=== PATIENT | female | born 1955 | race Caucasian/White ===

== ENCOUNTER 2016-07-02 21:38 | Observation (INO) | payer MEDICARE, MEDICAID ==
[~2016-07-02] VITALS: Ht 157.5 cm; Wt 88.2 kg
[~2016-07-02 21:38] MED LIST: ALPR.5T PO; HYDR-34 PO; LEVO75TA57 PO; MTH750T PO; ORPH100T PO; PREG75CA PO; RNT150T PO; TRM50T PO; VNL75T PO
--- OUTSIDE RECORDS SUMMARY | 2016-07-02 21:43 | XMS REPORT ---
Author Author JOE BAI Organization [employer] Address Unknown Phone Unavailable Care Team Providers Care Communication Lecturer Name Role Phone JOE BAI CP Unavailable Allergies No Known Allergies Problems Problem Type Condition Code Onset Dates Condition Status Problem Right wrist pain M25.531 Active Problem Reflex sympathetic dystrophy G90.50 Active Problem Right elbow pain M25.521 Active Problem Fibromyalgia M79.7 Active Problem Hypothyroidism, unspecified type E03.9 Active Medications No Known Medications Results No Known Results Summary Purpose eClinicalWorks Submission
[2016-07-02] MEDS ORDERED: ASPIRIN 81 MG CHEW (CHILDREN'S ASA) PO ONE (21:45)
[2016-07-02] MEDS ORDERED: RX-NITROGLYCERIN 0.4 MG TAB BTL 25'S SL PRN (21:45)
[2016-07-02 21:57] LABS: BASOPHILS % (AUTO) 0 % (0-10); EOSINOPHILS # (AUTO) 0.2 10^3/uL (0.0-0.3); EOSINOPHILS % (AUTO) 2 % (0-10); LYMPHOCYTES # (AUTO) 4.5 X 10^3 (1.0-4.0); LYMPHOCYTES % (AUTO) 44 % (12-44); MEAN CORPUSCULAR HEMOGLOBIN 31 PG (25-34); MEAN CORPUSCULAR HGB CONC 34 G/DL (32-36); MEAN CORPUSCULAR VOLUME 93 FL (80-99); MEAN PLATELET VOLUME 8.8 FL (7.4-10.4); MONOCYTES # (AUTO) 1.2 X 10^3 (0.0-1.0); MONOCYTES % (AUTO) 11 % (0-12); NEUTROPHILS # (AUTO) 4.3 X 10^3 (1.8-7.8); NEUTROPHILS % (AUTO) 42 % (42-75); PLATELET COUNT 350 10^3/uL (130-400); RED BLOOD COUNT 4.25 10^6/uL (4.35-5.85); RED CELL DISTRIBUTION WIDTH 12.7 % (10.0-14.5); WHITE BLOOD COUNT 10.2 10^3/uL (4.3-11.0)
[2016-07-02 22:08] LABS: PROTHROMBIN TIME PATIENT 12.9 SEC (12.2-14.7)
[2016-07-02] MEDS ORDERED: [UNRECOGNIZED DRUG - OTHER] PO (22:08)
[2016-07-02] MEDS ORDERED: TOPI200T8 PO (22:08)
[2016-07-02] MEDS ORDERED: FLUO20CA42 PO (22:08)
--- NOTE | 2016-07-02 22:20 | ED Chest Pain ---
General Chief Complaint: Chest Pain Stated Complaint: CHEST PAIN Nursing Triage Note: PT REPORTS L SIDED CP X 2-3 DAYS THAT RADIATES TO HER JAW AND L SHOULDER. PT REPORTS PAIN HAS RESOLVED BUT THAT SHE STILL HAS PRESSURE AND SOA IN HER CHEST THAT SHE RATES AT A 7/10. Nursing Sepsis Screen: No Definite Risk Source: patient History of Present Illness Time seen by provider: 21:40 Initial Comments PT ARRIVES VIA POV FROM HOME C/O CHEST PAIN OFF AND ON FOR A FEW DAYS STATES PAIN IS IN CENTER OF CHEST AND RADIATES TO LEFT NECK AND JAW, TO LEFT SHOULDER AND DOWN LEFT ARM AND INTO LEFT UPPER BACK STATES THE SHARP PAIN IN CHEST IS GONE, BUT STILL HAS ALOT OF PRESSURE IN CHEST- -RATES PAIN 7/10 C/O SLIGHT SHORTNESS OF BREATH C/O NAUSEA, NO VOMITING NO SWEATS NO SWELLING IN LEGS/ FEET OR PAIN IN CALVES, NO RECENT TRAVEL TOOK [facility] AT NOON AND 2 HOURS AGO. STATES SHE HAS HAD THE SAME IN THE PAST, BUT HAS NOT HAD ANY CARDIAC TESTS. STATES ALL FAMILY MEMBERS EXCEPT HER HAVE HEART DISEASE AND BOTH PARENTS AND YOUNGER BROTHER ALL OF HEART DISEASE PCP: DR. BAI AT [facility] Allergies and Home Medications Allergies Coded Allergies: Penicillins (Unverified Allergy, Intermediate, HIVES, 07/24/10) meperidine (Unverified Allergy, Intermediate, HIVES, 07/24/10) codeine (Unverified Allergy, Mild, PALPITATIONS, 07/24/10) methocarbamol (Unverified Adverse Reaction, Unknown, HOSTILE/AGGRESSION, ) Home Medications Fluoxetine HCl 20 Mg Capsule 40 MG PO DAILY (Reported) Hydrocodone Bit/Acetaminophen 1 Ea Tablet 1-2 TAB PO TID PRN PRN PAIN (Reported ) Levothyroxine Sodium 75 Mcg Tablet 1 EACH PO DAILY (Reported) Orphenadrine Citrate 100 Mg Tablet.sa 100 MG PO BID (Reported) Pantoprazole Sodium 40 Mg Tablet.dr 40 MG PO DAILY (Reported) Topiramate 200 Mg Tablet 400 MG PO DAILY (Reported) Review of Systems Constitutional: no symptoms reported EENTM: See HPI Respiratory: See HPI Shortness of Air Cardiovascular: See HPI Chest PainDenies Edema, Denies Irregular Heart Rate, Denies Lightheadedness, Denies Palpitations, Denies Syncope Gastrointestinal: See HPIDenies Abdominal Pain, NauseaDenies Vomiting Genitourinary: No Symptoms Reported Musculoskeletal: see HPI back pain (PAIN RADIATES TO LEFT UPPER BACK ) other ( PAIN RADIATES TO LEFT SHOULDER AND DOWN LEFT ARM) Skin: no symptoms reported Psychiatric/Neurological: No Symptoms Reported Endocrine: No Symptoms Reported Hematologic/Lymphatic: No Symptoms Reported Past Zbvkofl-Pbvlvh-Mscmac Hx Patient Social History Alcohol Use: Denies Use Recreational Drug Use: No Smoking Status: Former Smoker (< 1 PPD, QUIT OVER 20 YEARS AGO) Type Used: Cigarettes Recent Foreign Travel: No Contact w/Someone Who Travel: No Recent Infectious Disease Expo: No Recent Hopitalizations: No Physical Abuse Screen: No Sexual Abuse: No Immunizations Up To Date Date of Influenza Vaccine: Apr 01, 2016 Surgeries HX Surgeries: Yes (COLON RESECTION ? FOR BENIGN TUMOR? , RIGHT CARPAL TUNNEL SURGERY; LEFT ELBOW SURGERY FOR EPICONDYLITIS; X 2; BENIGN TUMOR REMOVED FROM FINGER) Surgeries: Abdominal, Appendectomy, Bowel Surgery, Section, Gallbladder, Orthopedic, Tonsillectomy Respiratory Hx Respiratory Disorders: No Cardiovascular Hx Cardiac Disorders: No Neurological Hx Neurological Disorders: No Genitourinary Hx Genitourinary Disorders: No Gastrointestinal Hx Gastrointestinal Disorders: Yes (COLON RESECTION FOR ? BENIGN TUMOR? ) Gastrointestinal Disorders: Gastroesophageal Reflux, Ulcer Musculoskeletal Hx Musculoskeletal Disorders: Yes (CHRONIC NECK PAIN; RSD) Musculoskeletal Disorders: Fibromyalgia, Chronic Back Pain Endocrine Hx Endocrine Disorders: Yes (HYPOGLYCEMIC) Endocrine Disorders: Hypothyroidsim Cancer Hx Cancer: No Psychosocial Hx Psychiatric Problems: Yes Behavioral Health Disorders: Depression Integumentary HX Skin/Integumentary Disorder: No Blood Transfusions Hx Blood Disorders: No Physical Exam Vital Signs Vital Sign - Last 12Hours 07/02/16 07/02/16 21:54 22:00 Temp 96.4 Pulse 78 Resp 18 B/P 143/80 Pulse Ox 96 O2 Delivery Room Air Capillary Refill : Less Than 3 Seconds General Appearance: No Apparent Distress WD/WN Anxious Obese HEENT: PERRL/EOMI Neck: Full Range of Motion Normal Inspection Non Tender SuppleNo Carotid Bruit , No JVD Respiratory: Chest Non Tender Normal Breath Sounds No Accessory Muscle Use No Respiratory Distress Cardiovascular: Regular Rate, Rhythm No Edema No JVD No Murmur Normal Peripheral Pulses Gastrointestinal: Normal Bowel Sounds No Organomegaly No Pulsatile Mass Non Tender Soft Extremity: Normal Capillary Refill Normal Inspection Normal Range of Motion Non Tender No Calf Tenderness No Pedal Edema Neurologic/Psychiatric: Alert Oriented x3 No Motor/Sensory Deficits 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 Norm as Tested Other (ANXIOUS) Skin: Normal Color Warm/Dry Progress/Results/Core Measures Results/Orders Lab Results Laboratory Tests Test 07/02/16 21:52 Range/Units Activated Partial Thromboplast Time 35 24-35 SEC Alanine Aminotransferase (ALT/SGPT) 13 0-55 U/L Albumin 4.2 3.2-4.5 G/DL Alkaline Phosphatase 92 40-136 U/L Amylase Level 67 25-125 U/L Anion Gap 12 5-14 MMOL/L Aspartate Amino Transf (AST/SGOT) 20 5-34 U/L B-Type Natriuretic Peptide < 10.0 <100.0 PG/ML BUN/Creatinine Ratio 17 Basophils # (Auto) 0.0 0.0-0.1 10^3/uL Basophils (%) (Auto) 0 0-10 % Blood Urea Nitrogen 14 7-18 MG/DL Calcium Level 9.3 8.5-10.1 MG/DL Carbon Dioxide Level 17 L 21-32 MMOL/L Chloride Level 107 98-107 MMOL/L Creatine Kinase MB 1.4 <6.6 NG/ML Creatinine 0.83 0.60-1.30 MG/DL Eosinophils # (Auto) 0.2 0.0-0.3 10^3/uL Eosinophils (%) (Auto) 2 0-10 % Estimat Glomerular Filtration Rate > 60 Glucose Level 105 70-105 MG/DL Hematocrit 39 35-52 % Hemoglobin 13.2 11.5-16.0 G/DL INR Comment 1.0 0.8-1.4 Lipase 45 8-78 U/L Lymphocytes # (Auto) 4.5 H 1.0-4.0 X 10^3 Lymphocytes (%) (Auto) 44 12-44 % Mean Corpuscular Hemoglobin 31 25-34 PG Mean Corpuscular Hemoglobin Concent 34 32-36 G/DL Mean Corpuscular Volume 93 80-99 FL Mean Platelet Volume 8.8 7.4-10.4 FL Monocytes # (Auto) 1.2 H 0.0-1.0 X 10^3 Monocytes (%) (Auto) 11 0-12 % Neutrophils # (Auto) 4.3 1.8-7.8 X 10^3 Neutrophils (%) (Auto) 42 42-75 % Platelet Count 350 130-400 10^3/uL Potassium Level 3.4 L 3.6-5.0 MMOL/L Prothrombin Time 12.9 12.2-14.7 SEC Red Blood Count 4.25 L 4.35-5.85 10^6/uL Red Cell Distribution Width 12.7 10.0-14.5 % Sodium Level 136 135-145 MMOL/L Total Bilirubin 0.2 0.1-1.0 MG/DL Total Creatine Kinase 89 29-168 U/L Total Protein 7.4 6.4-8.2 G/DL Troponin I < 0.30 <0.30 NG/ML White Blood Count 10.2 4.3-11.0 10^3/uL My Orders Orders-ALEIDA CENTENO DO Amylase (07/02/16 21:41) Cbc With Automated Diff (07/02/16 21:41) Comprehensive Metabolic Panel (07/02/16 21:41) Creatine Kinase (07/02/16 21:41) Creatine Kinase Mb (07/02/16 21:41) Lipase (07/02/16 21:41) Partial Thromboplastin Time (07/02/16 21:41) Protime With Inr (07/02/16 21:41) Troponin I (07/02/16 21:41) Chest 1 View, Ap/Pa Only (07/02/16 21:41) O2 (07/02/16 21:41) Ekg Tracing (07/02/16 21:41) Aspirin Chewable Tablet (Baby Aspirin Ch (07/02/16 21:45) Rx-Nitroglycerin Sl Tabs (Rx-Nitrostat S (07/02/16 21:45) BNP (07/02/16 21:41) Monitor-Rhythm Ecg Trace Only (07/02/16 21:41) Medications Given in ED Current Medications Medications Dose Ordered Sig/Emily Route Start Time Stop Time Status Last Admin Dose Admin Aspirin 324 mg ONCE ONCE PO 07/02/16 21:45 07/02/16 21:46 DC 07/02/16 21:54 324 MG Nitroglycerin 0.4 mg UD PRN SL 07/02/16 21:45 07/02/16 21:54 0.4 MG Vital Signs/I&O Vital Sign - Last 12Hours 1/1307/02/16 21:54 22:00 Temp 96.4 Pulse 78 Resp 18 B/P 143/80 Pulse Ox 96 O2 Delivery Room Air Blood Pressure Mean: 101 Progress Note : Progress Note PAIN AND OTHER SYMPTOMS COMPLETELY RESOLVED WITH NTG SL X 2 PRESSURE/PAIN BEGAN TO COME BACK JUST PRIOR TO ADMIT, RATES 4/10. 1/2" NITROPASTE APPLIED. ECG Initial ECG Impression Time: 21:47 Initial ECG Rate: 82 Initial ECG Rhythm: Normal Sinus Initial ECG Comparisson: No Previous ECG Available Diagnostic Imaging Comments CXR--NO ACUTE PROCESS, PENDING RADIOLOGIST REVIEW Reviewed: Reviewed by Me Departure Communication Progress Notes 1150--SPOKE WITH DR. Kailash SAUNDERS, ACCEPTS PT FOR ADMIT. Impression Impression: Primary Impression: Chest pain Disposition: ADMITTED INPATIENT Condition: Improved Decision to Admit Reason: Admit from ER (General) Decision to Admit/Date: Jul 02, 2016 Time/Decision to Admit Time: 23:10 Departure-Patient Inst. Referrals: JOE BAI MD (PCP/Family) Primary Care Physician ALEIDA CENTENO DO Jul 02, 2016 22:20 ALEIDA CENTENO DO Jul 02, 2016 22:20
[2016-07-02 22:48] LABS: ALANINE AMINOTRANSFERASE 13 U/L (0-55); ALBUMIN 4.2 G/DL (3.2-4.5); AMYLASE 67 U/L (25-125); ANION GAP 12 MMOL/L (5-14); ASPARTATE AMINO TRANSFERASE 20 U/L (5-34); BILIRUBIN,TOTAL 0.2 MG/DL (0.1-1.0); BLOOD UREA NITROGEN 14 MG/DL (7-18); BUN/CREATININE RATIO 17; CALCIUM 9.3 MG/DL (8.5-10.1); CARBON DIOXIDE 17 MMOL/L (21-32); CHLORIDE 107 MMOL/L (98-107); CREATINE KINASE 89 U/L (29-168); CREATININE SERUM 0.83 MG/DL (0.60-1.30); GFR ESTIMATED > 60; GLUCOSE 105 MG/DL (70-105); LIPASE 45 U/L (8-78); POTASSIUM 3.4 MMOL/L (3.6-5.0); SODIUM 136 MMOL/L (135-145); TOTAL PROTEIN 7.4 G/DL (6.4-8.2)
[2016-07-02 22:55] LABS: TROPONIN I < 0.30 NG/ML (<0.30)
[2016-07-02] MEDS ORDERED: NITROGLYCERIN 2% OINT 1 GM UNIT DOSE PACKET TOP ONE (23:15)
[2016-07-03 00:20] VITALS: BP 117/81
[2016-07-03] MEDS ORDERED: NITROGLYCERIN SUBLINGUAL 0.4 MG TAB (NITROSTAT) SL PRN (01:00)
[2016-07-03] MEDS ORDERED: PANT40TA3 PO (01:14)
[2016-07-03] MEDS ORDERED: morphine INJ 4 MG/ML 1 ML (VIAL/SYRINGE) IV PRN (01:15)
[2016-07-03 03:45] VITALS: BP 117/73
[2016-07-03 04:00] VITALS: BP 117/73
[2016-07-03 04:21] LABS: BASOPHILS % (AUTO) 0 % (0-10); EOSINOPHILS # (AUTO) 0.2 10^3/uL (0.0-0.3); EOSINOPHILS % (AUTO) 2 % (0-10); LYMPHOCYTES # (AUTO) 3.2 X 10^3 (1.0-4.0); LYMPHOCYTES % (AUTO) 39 % (12-44); MEAN CORPUSCULAR HEMOGLOBIN 31 PG (25-34); MEAN CORPUSCULAR HGB CONC 34 G/DL (32-36); MEAN CORPUSCULAR VOLUME 93 FL (80-99); MEAN PLATELET VOLUME 9.2 FL (7.4-10.4); MONOCYTES # (AUTO) 0.9 X 10^3 (0.0-1.0); MONOCYTES % (AUTO) 12 % (0-12); NEUTROPHILS # (AUTO) 3.8 X 10^3 (1.8-7.8); NEUTROPHILS % (AUTO) 47 % (42-75); PLATELET COUNT 317 10^3/uL (130-400); RED BLOOD COUNT 3.91 10^6/uL (4.35-5.85); RED CELL DISTRIBUTION WIDTH 12.7 % (10.0-14.5); WHITE BLOOD COUNT 8.1 10^3/uL (4.3-11.0)
[2016-07-03 04:49] LABS: ALANINE AMINOTRANSFERASE 10 U/L (0-55); ALBUMIN 3.8 G/DL (3.2-4.5); ANION GAP 11 MMOL/L (5-14); ASPARTATE AMINO TRANSFERASE 19 U/L (5-34); BILIRUBIN,TOTAL 0.3 MG/DL (0.1-1.0); BLOOD UREA NITROGEN 15 MG/DL (7-18); BUN/CREATININE RATIO 21; CARBON DIOXIDE 17 MMOL/L (21-32); CHLORIDE 109 MMOL/L (98-107); CHOLESTEROL 194 MG/DL (< 200); CREATINE KINASE 74 U/L (29-168); CREATININE SERUM 0.71 MG/DL (0.60-1.30); DIRECT LDL 126 MG/DL (1-129); GFR ESTIMATED > 60; GLUCOSE 103 MG/DL (70-105); MAGNESIUM 2.1 MG/DL (1.8-2.4); PHOSPHORUS 4.1 MG/DL (2.3-4.7); SODIUM 137 MMOL/L (135-145); TOTAL PROTEIN 6.8 G/DL (6.4-8.2)
[2016-07-03 04:55] LABS: TRIGLYCERIDES 90 MG/DL (<150); VLDL CHOLESTEROL 18 MG/DL (5-40)
[2016-07-03 05:06] LABS: BILIRUBIN,URINE NEGATIVE (NEGATIVE); KETONES,URINE NEGATIVE (NEGATIVE); LEUKOCYTE ESTERASE ,URINE 2+ (NEGATIVE); NITRITE,URINE POSITIVE (NEGATIVE); PH,URINE 6 (5-9); PROTEIN,URINE NEGATIVE (NEGATIVE); UROBILINOGEN,URINE NORMAL (NORMAL)
[2016-07-03 05:34] LABS: MYOGLOBIN SERUM 24.8 NG/ML (10.0-92.0)
[2016-07-03] MEDS: NITROGLYCERIN 2% OINT 1 GM UNIT DOSE PACKET TOP SCH ×2 (05:45→11:00)
--- NOTE | 2016-07-03 07:08 | Diagnostic Imaging Report ---
INDICATION: Left-sided chest pain. COMPARISON: Radiographs of the thoracic spine dated November 03, 2009. TECHNIQUE: Single radiograph of the chest dated July 02, 2016. FINDINGS: The cardiac silhouette is within normal limits. No significant pulmonary vascular congestion. The lungs are clear. No pleural effusion. No pneumothorax. Blodgett right curvature of the thoracolumbar spine. No acute osseous abnormality. IMPRESSION: No acute cardiopulmonary abnormality with additional findings as above. Dictated by: Dictated on workstation # [id number]
[2016-07-03] MEDS ORDERED: ASPIRIN E.C. 325 MG (ECOTRIN) TABLET PO SCH (09:00)
--- NOTE | 2016-07-03 10:19 | Diagnostic Imaging Report ---
EXAMINATION: Portable chest compared to prior study from 07/02/2016. INDICATION: Shortness of breath. FINDINGS: Lungs appear clear without focal infiltrate or evidence of an effusion. There is no pneumothorax. Heart size and mediastinal contours appear appropriate. Pulmonary vascularity appears within normal limits. No acute osseous abnormality is evident. IMPRESSION: No radiographic evidence of an acute cardio pulmonary process. Dictated by: Dictated on workstation # [id number]
--- NOTE | 2016-07-03 12:23 | Short Stay Summary ---
HPI History of Present Illness: Patient presented to hospital with complaints of chest pain. Was over past 3 days off and on. Radiated to neck and left arm. NO prior cardiac history or evaluation. Pt states she has been under significant stress lately. Didn't know if that was related. DId not have shortness of breath or palpitations. No nausea or vomiting. Source: patient Exam Limitations: no limitations Date seen by provider: Jul 03, 2016 Attending Physician Em Mckeon MD PCP Joe Bai MD Consult Date of Admission Jul 02, 2016 at 11:10 pm Home Medications Home Medications Reviewed patient Home Medication Reconciliation Form Allergies Coded Allergies: Penicillins (Unverified Allergy, Intermediate, HIVES, 07/24/10) meperidine (Unverified Allergy, Intermediate, HIVES, 07/24/10) codeine (Unverified Allergy, Mild, PALPITATIONS, 07/24/10) methocarbamol (Unverified Adverse Reaction, Unknown, HOSTILE/AGGRESSION, ) QQB-Yslxbz-Dqsmft Hx Patient Social History Alcohol Use: Denies Use Recreational Drug Use: No Smoking Status: Former Smoker Type Used: Cigarettes Recent Foreign Travel: No Contact w/other who traveled: No Recent Hopitalizations: No Recent Infectious Disease Expo: No Physical Abuse Screen: No Sexual Abuse: No Immunizations Up To Date Date of Pneumonia Vaccine: Apr 02, 2013 Date of Influenza Vaccine: Apr 01, 2016 Family Medical History Family History: Congenital heart disease Diabetes mellitus G8 BROTHER, Onset:Unknown Irregular heart beat 19 FATHER, , Onset:Unknown G8 SISTER, Onset:Unknown Myocardial infarction G8 BROTHER, Onset:Unknown Review of Systems ([facility]) Constitutional: no symptoms reported All Other Systems Reviewed Negative Unless Noted: Yes (Negative excepted noted.) Physical Exam-([facility]) Physical Exam Vital Signs VS - Last 72 Hours, by Label 07/02/16 07/02/16 07/03/16 07/03/16 21:54 22:00 00:12 00:20 Temp 96.4 97.6 Pulse 78 74 66 Resp 18 20 16 B/P 143/80 117/81 Pulse Ox 96 96 96 O2 Delivery Room Air Room Air 07/03/16 07/03/16 07/03/16 07/03/16 00:30 01:01 04:00 04:00 Temp 97.0 Pulse 63 71 Resp 18 B/P 117/73 Pulse Ox 96 98 97 O2 Delivery Room Air Room Air Room Air 07/03/16 07/03/16 07/03/16 07:00 08:00 08:00 Temp 97.5 Pulse 71 Pulse Ox 96 O2 Delivery Room Air Capillary Refill : Less Than 3 Seconds General Appearance: WD/WN no apparent distress HEENT: PERRL/EOMI normal ENT inspection TMs normal Neck: non-tender full range of motion supple normal inspection Respiratory: chest non-tender lungs clear normal breath sounds no respiratory distress no accessory muscle use Cardiovascular: regular rate, rhythm no edema no gallop no JVD no murmur Gastrointestinal: normal bowel sounds non tender soft no organomegaly no pulsatile mass Back: normal inspection Extremities: normal range of motion non-tender normal inspection no pedal edema no calf tenderness normal capillary refill Neurologic/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 Her cardiac enzymes remained normal as did her EKG. Maddie's chest pain resolved spontaneously early during the admission. She does describe a particularly stressful week with her adult children and recognizes some of her sx may be related to anxiety. She agrees to get a stress test this week and will return to ER should her sx return. We will arrange for close follow up after the stress test. Clinical Quality Measures AMI/AHF: ASA po Prior to arrival: Yes (162 MG ) DVT/VTE Risk/Contraindication: Risk Factor Score Per Nursin RFS Level Per Nursing on Admit: 3=High Copy Copies To 1: JOE BAI MD, JULIE A MD Jul 03, 2016 12:23
--- NOTE | 2016-07-03 12:26 | Discharge Instructions ---
Discharge Inst-[facility] Discharge Medications New, Converted or Re-Newed RX: Other Continued Medications: Fluoxetine HCl (Prozac) 20 Mg Capsule 40 MG PO DAILY CAP Hydrocodone Bit/Acetaminophen (Vicodin Es 7.5 Mg/325 Mg) 1 Ea Tablet 1-2 TAB PO TID PRN PAIN Levothyroxine Sodium (Synthroid) 75 Mcg Tablet 1 EACH PO DAILY Orphenadrine Citrate (Norflex) 100 Mg Tablet.sa 100 MG PO BID Pantoprazole Sodium (Pantoprazole Sodium) 40 Mg Tablet.dr 40 MG PO DAILY TAB Topiramate (Topiramate) 200 Mg Tablet 400 MG PO DAILY TAB Patient Instructions Goal/Follow Up Appt: [facility] WILL CALL YOU ON TUESDAY WITH TWO APPOINTMENTS: ONE TO FOLLOW UP WITH DR SAUNDERS (DUE TO DR BAI'S ABSENCE) AND ONE FOR YOUR STRESS TEST. Patient Instructions: PLEASE TAKE ALL MEDICATIONS PRESCRIBED. ATTEND ALL FOLLOW UP APPOINTMENTS. Return to The Hospital For: INCREASED CHEST PAIN OR SHORTNESS OF BREATH, PALPITATIONS Activity & Diet Discharge Diet: Low Fat/Low Cholesterol Activity as Tolerated: Yes Copy Copies To 1: LEONID SAUNDERS MD, JULIE A MD Jul 03, 2016 12:26 pm
== END 2016-07-03 12:24 | disposition home or self-care (01) ==
LOC: EDUNIT# 21:38 → ER 21:40 → ICU 23:10 → UNDOADMOB 23:10 → ICU 07-03 00:20 → UNDODISOB 07-03 12:55
PROVIDERS: ADMIT Pediatrics; ATTEND Pediatrics
DX: R07.9 Chest pain, unspecified (principal); K21.9 Gastro-esophageal reflux disease without esophagitis; M79.7 Fibromyalgia; E03.9 Hypothyroidism, unspecified; Z87.891 Personal history of nicotine dependence
CPT/HCPCS: 36415; 71010; 80053; 80061; 81000; 82150; 82550; 82553; 83690; 83735; 83874; 83880; 84100; 84484; 85025; 85610; 85730; 87088; 87186; 93005; 93041; G0378

== ENCOUNTER → 2016-07-07 | Outpatient (CLI) | payer MEDICARE, MEDICAID ==
[~2016-07-07] MED LIST changes: +FLUO20CA42 PO; +PANT40TA3 PO; +TOPI200T8 PO; +[UNRECOGNIZED DRUG - OTHER] PO
== END ==
LOC: CARD 10:54
PROVIDERS: ATTEND Pediatrics
DX: R07.9 Chest pain, unspecified (principal)
CPT/HCPCS: 93017

== ENCOUNTER 2017-01-29 15:45 | Emergency (ER) | payer MEDICARE, MEDICAID ==
[~2017-01-29] VITALS: Ht 157.5 cm; Wt 88.2 kg
--- OUTSIDE RECORDS SUMMARY | 2017-01-29 15:54 | XMS REPORT ---
Author Author JOE BAI Organization [employer] Address Unknown Phone Unavailable Care Team Providers Care Government Affairs Researcher Name Role Phone JOE BAI CP Unavailable Allergies No Known Allergies Problems Problem Type Condition Code Onset Dates Condition Status Problem Fibromyalgia M79.7 Active Problem Hypothyroidism, unspecified type E03.9 Active Problem Reflex sympathetic dystrophy G90.50 Active Medications Medication Code System Code Instructions Start Date End Date Status Dosage Hydrocodone-Acetaminophen [facility] [address]-88 7.5-325 MG Orally 3 times a day 1 tablet as needed Results No Known Results Summary Purpose eClinicalWorks Submission
--- OUTSIDE RECORDS SUMMARY | 2017-01-29 15:54 | XMS REPORT ---
Author Author JOE BAI Organization [employer] Address Unknown Phone Unavailable Care Team Providers Care Music Publicist Name Role Phone JOE BAI CP Unavailable [...]
--- OUTSIDE RECORDS SUMMARY | 2017-01-29 15:54 | XMS REPORT ---
Author Author JOE BAI [facility] Address [address] [place] [address] Care Team Providers Care Service Crew Supervisor Name Role Phone JOE BAI Unavailable PROBLEMS Type Condition ICD9-CM Code IUG32-KO Code Onset Dates Condition Status SNOMED Code Problem Right elbow pain M25.521 Active 46686338 Problem Right wrist pain M25.531 Active 48262510 Problem Hypothyroidism, unspecified type E03.9 Active 00568616 Assessment Right elbow pain M25.521 May, Active 70504338 Problem Reflex sympathetic dystrophy G90.50 Active 68225582 Problem Fibromyalgia M79.7 Active [id number] ALLERGIES Unknown Allergies SOCIAL HISTORY No smoking Hx information available PLAN OF CARE VITAL SIGNS MEDICATIONS Medication Instructions Dosage Frequency Start Date End Date Duration Status Hydrocodone-Acetaminophen 7.5-325 MG Orally 3 times a day 1 tablet as needed 8h May, Active RESULTS No Results PROCEDURES No Known procedures IMMUNIZATIONS No Known Immunizations
--- OUTSIDE RECORDS SUMMARY | 2017-01-29 15:54 | XMS REPORT ---
Author Author JOE BAI Organization [employer] Address Unknown Phone Unavailable Care Team Providers Care Cable Testers Helper Name Role Phone JOE BAI CP Unavailable [...]
--- OUTSIDE RECORDS SUMMARY | 2017-01-29 15:54 | XMS REPORT ---
Author MIKEY Fontenot [facility] [employer] Address Unknown Phone Unavailable Care Team Providers Care Ribbon Hand Name Role Phone MIKEY MATHEWS Unavailable Allergies, Adverse Reactions, Alerts Substance Reaction Event Type Robaxin Info Not Available Drug Allergy Penicillin V Potassium Info Not Available Drug Allergy Demerol Info Not Available Drug Allergy Codeine Sulfate Info Not Available Drug Allergy Problems Problem Type Condition Code Onset Dates Condition Status Problem Right wrist pain M25.531 Active Problem Reflex sympathetic dystrophy G90.50 Active Problem Right elbow pain M25.521 Active Assessment Right elbow pain M25.521 Active Assessment Right wrist pain M25.531 Active Problem Fibromyalgia M79.7 Active Problem Hypothyroidism, unspecified type E03.9 Active Medications Medication Code System Code Instructions Start Date End Date Status Dosage Norflex [facility] [address]-44 100 mg by oral route every 12 hrs 1 tablet Hydrocodone-Acetaminophen [facility] [address]-27 7.5-325 MG Orally 3 times a day 1 tablet as needed Synthroid [facility] [address]-71 75 MCG Orally Once a day [address] [facility] [address]-11 40 MG Orally Once a day 1 capsule in the morning PredniSONE [facility] [address]-97 10 mg Orally twice a day Feb 13, 2016Feb [address] [facility] [address]-08 200 mg Orally twice a day 1 tablet Pantoprazole Sodium [facility] [address]-25 40 MG Orally Once a day 1 tablet Procedures Procedure Coding System Code Date X-RAY EXAM OF ELBOW CPT-4 65233 Feb 13, 2016 [facility] VISIT ESTABLISHED PATIENT CPT-4 G0467 Feb 13, 2016 X-RAY EXAM OF WRIST CPT-4 95579 Feb 13, 2016 Office Visit, Est Pt., Level 3 CPT-4 18903 Feb 13, 2016 Vital Signs Date/Time: Feb 13, 2016 Cardiac Monitoring Heart Rate 84 bpm Weight 194.2 lbs Height 62 in BMI 35.52 Index Blood Pressure Diastolic 81 mmHg Blood Pressure Systolic 125 mmHg Results No Known Results Summary Purpose eClinicalWorks Submission
--- OUTSIDE RECORDS SUMMARY | 2017-01-29 15:54 | XMS REPORT ---
Author Author JOE BAI Organization [employer] Address Unknown Phone Unavailable Care Team Providers Care Hydrostatic Tester Name Role Phone JOE BAI CP Unavailable Allergies No Known Allergies Problems Problem Type Condition Code Onset Dates Condition Status Problem Fibromyalgia M79.7 Active Problem Hypothyroidism, unspecified type E03.9 Active Problem Reflex sympathetic dystrophy G90.50 Active Medications Medication Code System Code Instructions Start Date End Date Status Dosage Norflex [facility] [address]-15 100 mg by oral route every 12 hrs 1 tablet Results No Known Results Summary Purpose eClinicalWorks Submission
--- OUTSIDE RECORDS SUMMARY | 2017-01-29 15:54 | XMS REPORT ---
Author Author JOE BAI [facility] e[employer] Address Unknown Phone Unavailable Care Team Providers Care Casting Room Operator Name Role Phone JOE BAI CP Unavailable Allergies, Adverse Reactions, Alerts Substance Reaction Event Type Robaxin Info Not Available Drug Allergy Penicillin V Potassium Info Not Available Drug Allergy Demerol Info Not Available Drug Allergy Codeine Sulfate Info Not Available Drug Allergy Problems Problem Type Condition Code Onset Dates Condition Status Problem Fibromyalgia M79.7 Active Problem Hypothyroidism, unspecified type E03.9 Active Problem Reflex sympathetic dystrophy G90.50 Active Assessment Fibromyalgia M79.7 Active Assessment Hypothyroidism, unspecified type E03.9 Active Medications Medication Code System Code Instructions Start Date End Date Status Dosage Synthroid [facility] [address]-91 75 MCG Orally Once a day 1 tablet Topiramate [facility] [address]-97 200 mg Orally Once a day 1 tablet Prozac [facility] [address]-83 40 MG Orally Once a day 1 capsule in the morning Pantoprazole Sodium [facility] [address]-83 40 MG Orally Once a day 1 tablet Hydrocodone-Acetaminophen [facility] [address]-77 7.5-325 MG Orally 3 times a day 1 tablet as needed Norflex [facility] [address]-79 100 mg by oral route every 12 hrs 1 tablet Procedures Procedure Coding System Code Date Office Visit, Est Pt., Level 3 CPT-4 13408 January 06, 2016 [facility] VISIT ESTABLISHED PATIENT CPT-4 G0467 January 06, 2016 Vital Signs Date/Time: January 06, 2016 Cardiac Monitoring Heart Rate 80 bpm Weight 195.5 lbs Height 62 in Blood Pressure Diastolic 78 mmHg Blood Pressure Systolic 118 mmHg Results No Known Results Summary Purpose eClinicalWorks Submission
--- OUTSIDE RECORDS SUMMARY | 2017-01-29 15:54 | XMS REPORT ---
Author Author JOE BAI [facility] Address [address] [place] [address] Care Team Providers Care Manager Oracle Database Name Role Phone JOE BAI Unavailable PROBLEMS Type Condition ICD9-CM Code [id number] Code Onset Dates Condition Status SNOMED Code Assessment Encounter for immunization Z23 Apr, Active 776662197 Problem Right elbow pain M25.521 Active 95004099 Problem Right wrist pain M25.531 Active 48285987 Problem Hypothyroidism, unspecified type E03.9 Active 77874382 Assessment Reflex sympathetic dystrophy G90.50 Apr, Active 84528004 Problem Reflex sympathetic dystrophy G90.50 Active 55258461 Problem Fibromyalgia M79.7 Active 651899463 ALLERGIES Substance Reaction Event Type Date Status Robaxin Unknown Drug Allergy Apr, Active Penicillin V Potassium Unknown Drug Allergy Apr, Active Demerol Unknown Drug Allergy Apr, Active Codeine Sulfate Unknown Drug Allergy Apr, Active SOCIAL HISTORY No smoking Hx information available PLAN OF CARE VITAL SIGNS Height 62 in 2016-05-10 Weight 200.8 lbs 2016-05-10 Heart Rate 80 bpm 2016-05-10 Respiratory Rate 16 2016-05-10 BMI 36.72 kg/m2 2016-05-10 Blood pressure systolic 120 mmHg 2016-05-10 Blood pressure diastolic 90 mmHg 2016-05-10 MEDICATIONS Medication Instructions Dosage Frequency Start Date End Date Duration Status Hydrocodone-Acetaminophen 7.5-325 MG Orally 3 times a day 1 tablet as needed 8h Active Topiramate 200 mg Orally twice a day 1 tablet 12h Active Norflex 100 MG by oral route every 12 hrs 1 tablet 12h Active Synthroid 75 MCG Orally Once a day 1 tablet 24h Active Pantoprazole Sodium 40 MG Orally Once a day 1 tablet 24h Active Prozac 40 MG Orally Once a day 1 capsule in the morning 24h Active RESULTS No Results PROCEDURES Procedure Date Ordered Related Diagnosis Body Site FLUARIX QUAD P-FREE 3 AND UP .50 2015May 10, 2016 SINGLE IMMUNIZATION ADMIN May 10, 2016 Office Visit, Est Pt., Level 3 May 10, 2016 [facility] VISIT ESTABLISHED PATIENT May 10, 2016 IMMUNIZATIONS Vaccine Route Administration Date Status FLUARIX QUAD P-FREE 3 AND UP .50 2015 IM Intramuscular May 10, 2016 Administered
--- OUTSIDE RECORDS SUMMARY | 2017-01-29 15:54 | XMS REPORT ---
Author Author JOE BAI Organization [employer] Address Unknown Phone Unavailable Care Team Providers Care Exhibition Carver Name Role Phone JOE BAI CP Unavailable Allergies No Known Allergies Problems Problem Type Condition Code Onset Dates Condition Status Problem Fibromyalgia M79.7 Active Problem Hypothyroidism, unspecified type E03.9 Active Problem Reflex sympathetic dystrophy G90.50 Active Medications Medication Code System Code Instructions Start Date End Date Status Dosage Hydrocodone-Acetaminophen [facility] [address]-24 7.5-325 MG Orally 3 times a day 1 tablet as needed Results No Known Results Summary Purpose [employer] Submission
--- OUTSIDE RECORDS SUMMARY | 2017-01-29 15:55 | XMS REPORT ---
Author Author JOE BAI [facility] Address [address] [place] [address] Care Team Providers Care Production Control Scheduler Name Role Phone JOE BAI Unavailable PROBLEMS Type Condition ICD9-CM Code [id number] Code Onset Dates Condition Status SNOMED Code Problem Right elbow pain M25.521 Active 50835792 Problem Right wrist pain M25.531 Active 73971331 Problem Hypothyroidism, unspecified type E03.9 Active 68601208 Problem Reflex sympathetic dystrophy G90.50 Active 05277842 Problem Fibromyalgia M79.7 Active 634384128 ALLERGIES Unknown Allergies SOCIAL HISTORY No smoking Hx information available PLAN OF CARE VITAL SIGNS MEDICATIONS Medication Instructions Dosage Frequency Start Date End Date Duration Status Hydrocodone-Acetaminophen 7.5-325 MG Orally 3 times a day 1 tablet as needed 8h Active RESULTS No Results PROCEDURES No Known procedures IMMUNIZATIONS No Known Immunizations
--- OUTSIDE RECORDS SUMMARY | 2017-01-29 15:55 | XMS REPORT ---
Author Author JOE BAI [facility] Address [address] [place] [address] Care Team Providers Care Market Development Trainer Name Role Phone JOE BAI Unavailable PROBLEMS Type Condition ICD9-CM Code [id number] Code Onset Dates Condition Status SNOMED Code Problem Right elbow pain M25.521 Active 68332318 Problem Right wrist pain M25.531 Active 37635174 Problem Hypothyroidism, unspecified type E03.9 Active 01875666 Problem Reflex sympathetic dystrophy G90.50 Active 42646288 Problem Fibromyalgia M79.7 Active 472774403 ALLERGIES Unknown Allergies SOCIAL HISTORY No smoking Hx information available PLAN OF CARE VITAL SIGNS MEDICATIONS Medication Instructions Dosage Frequency Start Date End Date Duration Status Hydrocodone-Acetaminophen 7.5-325 MG Orally 3 times a day 1 tablet as needed 8h Active RESULTS No Results PROCEDURES No Known procedures IMMUNIZATIONS No Known Immunizations
--- OUTSIDE RECORDS SUMMARY | 2017-01-29 15:55 | XMS REPORT ---
Author Author JOE BAI Organization [employer] Address Unknown Phone Unavailable Care Team Providers Care Transmission Systems Operator Name Role Phone JOE BAI CP Unavailable Allergies No Known Allergies Problems Problem Type Condition Code Onset Dates Condition Status Problem Right wrist pain M25.531 Active Problem Reflex sympathetic dystrophy G90.50 Active Problem Right elbow pain M25.521 Active Problem Fibromyalgia M79.7 Active Problem Hypothyroidism, unspecified type E03.9 Active Medications Medication Code System Code Instructions Start Date End Date Status Dosage Hydrocodone-Acetaminophen [facility] [address]-67 7.5-325 MG Orally 3 times a day 1 tablet as needed Results No Known Results Summary Purpose [employer]ClinicalWorks Submission
--- OUTSIDE RECORDS SUMMARY | 2017-01-29 15:55 | XMS REPORT ---
Author SHERRY Roberts Organization [employer] Address Unknown Phone Unavailable Care Team Providers Care Scrap Drop Engineer Name Role Phone SHERRY JENNINGS CP Unavailable Allergies, Adverse Reactions, Alerts Substance Reaction Event Type Robaxin Info Not Available Drug Allergy Penicillin V Potassium Info Not Available Drug Allergy Demerol Info Not Available Drug Allergy Codeine Sulfate Info Not Available Drug Allergy Problems Problem Type Condition Code Onset Dates Condition Status Problem Fibromyalgia M79.7 Active Problem Hypothyroidism, unspecified type E03.9 Active Problem Reflex sympathetic dystrophy G90.50 Active Assessment Seborrheic keratoses L82.1 Active Medications Medication Code System Code Instructions Start Date End Date Status Dosage Synthroid [facility] [address]-33 75 MCG Orally Once a day 1 tablet Hydrocodone-Acetaminophen [facility] [address]-43 7.5-325 MG Orally 3 times a day 1 tablet as needed Prozac [facility] [address]-10 40 MG Orally Once a day 1 capsule in the morning Norflex [facility] [address]-71 100 mg by oral route every 12 hrs 1 tablet Pantoprazole Sodium [facility] [address]-34 40 MG Orally Once a day 1 tablet Topiramate [facility] [address]-63 200 mg Orally twice a day 1 tablet Procedures Procedure Coding System Code Date [facility] VISIT ESTABLISHED PATIENT CPT-4 G0467 January 13, 2016 Office Visit, Est Pt., Level 2 CPT-4 54697 January 13, 2016 CRYOTHERAPY OF SKIN CPT-4 19522 January 13, 2016 Vital Signs Date/Time: January 13, 2016 Cardiac Monitoring Heart Rate 82 bpm Weight 193.9 lbs Height 62 in BMI 35.46 Index Blood Pressure Diastolic 77 mmHg Blood Pressure Systolic 131 mmHg Results No Known Results Summary Purpose [employer]ClinicalWorks Submission
--- OUTSIDE RECORDS SUMMARY | 2017-01-29 15:55 | XMS REPORT ---
Author Author JOE BAI [facility] e[employer] Address Unknown Phone Unavailable Care Team Providers Care Lump Receiver Name Role Phone JOE BAI CP Unavailable Allergies No Known Allergies Problems Problem Type Condition Code Onset Dates Condition Status Problem Fibromyalgia M79.7 Active Problem Hypothyroidism, unspecified type E03.9 Active Problem Reflex sympathetic dystrophy G90.50 Active Medications Medication Code System Code Instructions Start Date End Date Status Dosage Topiramate [facility] [address]-20 200 mg Orally twice a day 1 tablet Results No Known Results Summary Purpose eClinicalWorks Submission
[2017-01-29] MEDS ORDERED: NS IV 1000 ML 1,000 ML IV STA (16:24)
[2017-01-29] MEDS ORDERED: KETOROLAC 30 MG/ML VIAL IVP STA (16:24)
[2017-01-29] MEDS ORDERED: PROMETHAZINE INJ 25 MG/ML (PHENERGAN) AMP IVP STA (16:24)
[2017-01-29] MEDS ORDERED: DEXAMETHASONE PF 10 MG/ML (DECADRON) VIAL IV STA (16:25)
[2017-01-29] MEDS ORDERED: diphenhydrAMINE 50 MG/ML INJ (BENADRYL) IV ONE ×2 (16:30→18:00)
--- NOTE | 2017-01-29 16:36 | ED Headache ---
General Chief Complaint: Head/Cervical Problems Stated Complaint: SHARP SHOOTING PAINS IN HEAD,LIGHT-HEADED,PRESSURE Nursing Triage Note: pt ambulated to room. pt complains of a severe headache, lightheaded, and blurred vision since yesterday. pt states "it feels like someone is pushing on my head". pt complains of a sharp pain on the right side of her head. pt saw dr. epstein yesterday for this situation and was prescribed medication. Nursing Sepsis Screen: No Definite Risk Source: patient Exam Limitations: no limitations History of Present Illness Time seen by provider: 16:19 Initial Comments Here with complaint of headache that she reports this more severe today and has sharp pains to the top of her head. This is been long-standing over the last several months but worse tonight. Denies fever or chills. States her medicines aren't working for her for this. Denies other illness related symptoms. Timing/Duration: increasing, other (4 months) Severity/Quality: moderate, pressure, sharp Location: occipital Prior Headaches/Recent Trauma: frequent headaches, chronic headaches Associated Symptoms: No confusion, No fatigue, No facial pain, No fever/chills , No loss of consciousness, No nausea/vomiting, No nasal congestion, No nasal drainage, No sinus infection, No stiff neck, No weakness Allergies and Home Medications Allergies Coded Allergies: Penicillins (Unverified Allergy, Intermediate, HIVES, 07/24/10) meperidine (Unverified Allergy, Intermediate, HIVES, 07/24/10) codeine (Unverified Allergy, Mild, PALPITATIONS, 07/24/10) methocarbamol (Unverified Adverse Reaction, Unknown, HOSTILE/AGGRESSION, ) Home Medications Fluoxetine HCl 20 Mg Capsule, 40 MG PO DAILY, (Reported) Hydrocodone Bit/Acetaminophen 1 Ea Tablet, 1-2 TAB PO TID PRN for PAIN, ( Reported) Levothyroxine Sodium 75 Mcg Tablet, 1 EACH PO DAILY, (Reported) Orphenadrine Citrate 100 Mg Tablet.sa, 100 MG PO BID, (Reported) Pantoprazole Sodium 40 Mg Tablet.dr, 40 MG PO DAILY, (Reported) Topiramate 200 Mg Tablet, 400 MG PO DAILY, (Reported) Constitutional: see HPI, No chills, No fever Eyes: No Symptoms Reported Ears, Nose, Mouth, Throat: no symptoms reported Respiratory: no symptoms reported Cardiovascular: no symptoms reported Gastrointestinal: no symptoms reported, No nausea, No vomiting Genitourinary: no symptoms reported, No dysuria, No pain Musculoskeletal: no symptoms reported Skin: no symptoms reported Psychiatric/Neurological: See HPI, Headache All Other Systems Reviewed Negative Unless Noted: Yes Past Zgckwcj-Rgbwvv-Thmzls Hx Patient Social History Alcohol Use: Denies Use Recreational Drug Use: No Smoking Status: Former Smoker Type Used: Cigarettes 2nd Hand Smoke Exposure: No Recent Foreign Travel: No Contact w/Someone Who Travel: No Recent Infectious Disease Expo: No Recent Hopitalizations: No Immunizations Up To Date PED Vaccines UTD: No Date of Pneumonia Vaccine: Apr 02, 2013 Date of Influenza Vaccine: Apr 01, 2016 Seasonal Allergies Seasonal Allergies: No Surgeries HX Surgeries: Yes Surgeries: Abdominal, Appendectomy, Bowel Surgery, Section, Gallbladder, Orthopedic, Tonsillectomy Respiratory Hx Respiratory Disorders: No Cardiovascular Hx Cardiac Disorders: No Neurological Hx Neurological Disorders: No Reproductive System Sexually Transmitted Disease: No HIV/AIDS: No Female Reproductive Disorders: Denies Genitourinary Hx Genitourinary Disorders: No Gastrointestinal Hx Gastrointestinal Disorders: Yes (COLON RESECTION FOR ? BENIGN TUMOR? ) Gastrointestinal Disorders: Gastroesophageal Reflux, Ulcer Musculoskeletal Hx Musculoskeletal Disorders: Yes (CHRONIC NECK PAIN; RSD) Musculoskeletal Disorders: Fibromyalgia, Chronic Back Pain Endocrine Hx Endocrine Disorders: Yes (HYPOGLYCEMIC) Endocrine Disorders: Hypothyroidsim HEENT Loss of Vision: Right Hearing Impairment: Deaf Cancer Hx Cancer: No Psychosocial Hx Psychiatric Problems: Yes Behavioral Health Disorders: Depression Integumentary HX Skin/Integumentary Disorder: No Blood Transfusions Hx Blood Disorders: No Adverse Reaction to a Blood Tr: No Reviewed Nursing Assessment Reviewed/Agree w Nursing PMH: Yes Family Medical History Family Medial History: Congenital heart disease Diabetes mellitus G8 BROTHER, Onset:Unknown Irregular heart beat 19 FATHER, , Onset:Unknown G8 SISTER, Onset:Unknown Myocardial infarction G8 BROTHER, Onset:Unknown Physical Exam Vital Signs Vital Sign - Last 12Hours 01/29/17 15:54 Temp 98.2 Pulse 71 Resp 20 B/P (MAP) 161/75 Pulse Ox 98 O2 Delivery Room Air Capillary Refill : Less Than 3 Seconds General Appearance: WD/WN, no apparent distress HEENT: PERRL/EOMI, TMs normal, pharynx normal Neck: full range of motion, supple Cardiovascular: regular rate, rhythm, no murmur Respiratory: lungs clear, normal breath sounds Gastrointestinal: non tender, soft Back: normal inspection, no CVA tenderness, no vertebral tenderness Extremities: non-tender, normal inspection Psychiatric: alert, oriented x 3 Crainal Nerves: normal hearing, normal speech Coordination/Gait: normal gait Motor/Sensory: no motor deficit, no sensory deficit Skin: normal color, warm/dry Progress/Results/Core Measures Results/Orders Lab Results Laboratory Tests Test 01/29/17 16:39 01/29/17 16:40 Range/Units White Blood Count 9.5 4.3-11.0 10^3/uL Red Blood Count 3.91 L 4.35-5.85 10^6/uL Hemoglobin 12.0 11.5-16.0 G/DL Hematocrit 36 35-52 % Mean Corpuscular Volume 92 80-99 FL Mean Corpuscular Hemoglobin 31 25-34 PG Mean Corpuscular Hemoglobin Concent 33 32-36 G/DL Red Cell Distribution Width 13.2 10.0-14.5 % Platelet Count 297 130-400 10^3/uL Mean Platelet Volume 9.3 7.4-10.4 FL Neutrophils (%) (Auto) 52 42-75 % Lymphocytes (%) (Auto) 34 12-44 % Monocytes (%) (Auto) 11 0-12 % Eosinophils (%) (Auto) 4 0-10 % Basophils (%) (Auto) 0 0-10 % Neutrophils # (Auto) 4.9 1.8-7.8 X 10^3 Lymphocytes # (Auto) 3.2 1.0-4.0 X 10^3 Monocytes # (Auto) 1.0 0.0-1.0 X 10^3 Eosinophils # (Auto) 0.4 H 0.0-0.3 10^3/uL Basophils # (Auto) 0.0 0.0-0.1 10^3/uL Erythrocyte Sedimentation Rate 31 H 0-30 MM/HR Sodium Level 134 L 135-145 MMOL/L Potassium Level 3.7 3.6-5.0 MMOL/L Chloride Level 106 98-107 MMOL/L Carbon Dioxide Level 18 L 21-32 MMOL/L Anion Gap 10 5-14 MMOL/L Blood Urea Nitrogen 13 7-18 MG/DL Creatinine 0.75 0.60-1.30 MG/DL Estimat Glomerular Filtration Rate > 60 BUN/Creatinine Ratio 17 Glucose Level 93 70-105 MG/DL Calcium Level 9.1 8.5-10.1 MG/DL Total Bilirubin 0.3 0.1-1.0 MG/DL Aspartate Amino Transf (AST/SGOT) 18 5-34 U/L Alanine Aminotransferase (ALT/SGPT) 9 0-55 U/L Alkaline Phosphatase 95 40-136 U/L C-Reactive Protein High Sensitivity 1.03 H 0.00-0.50 MG/DL Total Protein 6.8 6.4-8.2 GM/DL Albumin 3.8 3.2-4.5 GM/DL Urine Color YELLOW Urine Clarity CLEAR Urine pH 7 5-9 Urine Specific Cameron 1.015 L 1.016-1.022 Urine Protein NEGATIVE NEGATIVE Urine Glucose (UA) NEGATIVE NEGATIVE Urine Ketones NEGATIVE NEGATIVE Urine Nitrite POSITIVE H NEGATIVE Urine Bilirubin NEGATIVE NEGATIVE Urine Urobilinogen NORMAL NORMAL MG/DL Urine Leukocyte Esterase 3+ H NEGATIVE Urine RBC (Auto) NEGATIVE NEGATIVE Urine RBC NONE /HPF Urine WBC 50-100 H /HPF Urine Squamous Epithelial Cells 2-5 /HPF Urine Crystals NONE /LPF Urine Bacteria LARGE H /HPF Urine Casts NONE /LPF Urine Mucus NEGATIVE /LPF Urine Culture Indicated YES My Orders Orders - ARUNA MARTINEZ MD Cbc With Automated Diff (01/29/17 16:24) Comprehensive Metabolic Panel (01/29/17 16:24) Hs C Reactive Protein (01/29/17 16:24) Ua Culture If Indicated (01/29/17 16:24) Erythrocyte Sedimentation Rate (01/29/17 16:24) Ketorolac Injection (Toradol Injection) (01/29/17 16:24) Promethazine Injection (Phenergan Injec (01/29/17 16:24) Ns Iv 1000 Ml (Sodium Chloride 0.9%) (01/29/17 16:24) Saline Lock/Iv-Start (01/29/17 16:24) Ct Head Wo (01/29/17 16:24) Diphenhydramine Injection (Benadryl Inje (01/29/17 16:30) Dexamethasone Pf Injection (Decadron Pf (01/29/17 16:25) Urine Culture (01/29/17 16:40) Levofloxacin Tablet (Levaquin Tablet) (01/29/17 17:48) Diphenhydramine Injection (Benadryl Inje (01/29/17 18:00) Medications Given in ED Current Medications Medications Dose Ordered Sig/Emily Route Start Time Stop Time Status Last Admin Dose Admin Diphenhydramine HCl 25 mg ONCE ONCE IV 01/29/17 16:30 01/29/17 16:31 DC 01/29/17 16:47 25 MG Vital Signs/I&O Vital Sign - Last 12Hours 01/29/17 15:54 Temp 98.2 Pulse 71 Resp 20 B/P (MAP) 161/75 Pulse Ox 98 O2 Delivery Room Air Blood Pressure Mean: 103 Progress Note : Progress Note Seen and evaluated. IV, labs and UA ordered. CT head ordered. Normal saline 1 L bolus, Phenergan 25 mg IV, Toradol 30 mg IV and Benadryl 25 mg IV ordered. Decadron 10 mg IV ordered. Monitor patient. 1745: Patient is much improved with respect to headache but does have restless legs. UTI noted. Levaquin 500 mg by mouth and Benadryl 25 mg IV ordered. Discharged home with return precautions. Patient and family verbalize understanding instructions and agreement with plan. Departure Impression Impression: Primary Impression: Migraine Qualified Codes: G43.909 - Migraine, unspecified, not intractable, without status migrainosus Additional Impression: Urinary tract infection Qualified Codes: N30.00 - Acute cystitis without hematuria Disposition: HOME, SELF-CARE Condition: Improved Departure-Patient Inst. Decision time for Depature: 17:57 Referrals: JOE BAI MD (PCP/Family) Primary Care Physician Patient Instructions: Migraine Headache (DC), Urinary Tract Infection, Adult ( DC) Add. Discharge Instructions: All discharge instructions reviewed with patient and/or family. Voiced understanding. Take medications as directed. Follow-up with your DrMario in a few days for recheck. Return for worse pain, fever, vomiting, weakness, recent problems or other concerns as needed. Scripts Ciprofloxacin HCl (Ciprofloxacin HCl) 500 Mg Tablet 500 MG PO BID, #10 TAB Prov: ARUNA MARTINEZ MD 01/29/17 ARUNA MARTINEZ MD Jan 29, 2017 16:36
[2017-01-29 16:45] LABS: BASOPHILS % (AUTO) 0 % (0-10); EOSINOPHILS # (AUTO) 0.4 10^3/uL (0.0-0.3); EOSINOPHILS % (AUTO) 4 % (0-10); LYMPHOCYTES # (AUTO) 3.2 X 10^3 (1.0-4.0); LYMPHOCYTES % (AUTO) 34 % (12-44); MEAN CORPUSCULAR HEMOGLOBIN 31 PG (25-34); MEAN CORPUSCULAR HGB CONC 33 G/DL (32-36); MEAN CORPUSCULAR VOLUME 92 FL (80-99); MEAN PLATELET VOLUME 9.3 FL (7.4-10.4); MONOCYTES % (AUTO) 11 % (0-12); NEUTROPHILS # (AUTO) 4.9 X 10^3 (1.8-7.8); NEUTROPHILS % (AUTO) 52 % (42-75); PLATELET COUNT 297 10^3/uL (130-400); RED BLOOD COUNT 3.91 10^6/uL (4.35-5.85); RED CELL DISTRIBUTION WIDTH 13.2 % (10.0-14.5); WHITE BLOOD COUNT 9.5 10^3/uL (4.3-11.0)
[2017-01-29 16:47] LABS: BILIRUBIN,URINE NEGATIVE (NEGATIVE); KETONES,URINE NEGATIVE (NEGATIVE); LEUKOCYTE ESTERASE ,URINE 3+ (NEGATIVE); NITRITE,URINE POSITIVE (NEGATIVE); PH,URINE 7 (5-9); PROTEIN,URINE NEGATIVE (NEGATIVE); UROBILINOGEN,URINE NORMAL (NORMAL)
[2017-01-29 16:55] LABS: WBC,URINE 50-100 /HPF
[2017-01-29 17:04] LABS: ERYTHROCYTE SEDIMENTATION RATE 31 MM/HR (0-30)
[2017-01-29 17:07] LABS: ALANINE AMINOTRANSFERASE 9 U/L (0-55); ALBUMIN 3.8 GM/DL (3.2-4.5); ANION GAP 10 MMOL/L (5-14); ASPARTATE AMINO TRANSFERASE 18 U/L (5-34); BILIRUBIN,TOTAL 0.3 MG/DL (0.1-1.0); BLOOD UREA NITROGEN 13 MG/DL (7-18); BUN/CREATININE RATIO 17; CALCIUM 9.1 MG/DL (8.5-10.1); CARBON DIOXIDE 18 MMOL/L (21-32); CHLORIDE 106 MMOL/L (98-107); CREATININE SERUM 0.75 MG/DL (0.60-1.30); GFR ESTIMATED > 60; GLUCOSE 93 MG/DL (70-105); POTASSIUM 3.7 MMOL/L (3.6-5.0); SODIUM 134 MMOL/L (135-145); TOTAL PROTEIN 6.8 GM/DL (6.4-8.2); hs C REACTIVE PROTEIN 1.03 MG/DL (0.00-0.50)
--- NOTE | 2017-01-29 17:07 | Diagnostic Imaging Report ---
INDICATION: Headache. Head pressure. TECHNIQUE: Routine non contrast-enhanced axial images were obtained from the skull base to the vertex. COMPARISON: 07/24/2010. FINDINGS: The ventricles and cortical sulci are diffusely prominent, compatible with age-related volume loss. There are confluent areas of abnormal, low attenuation in the periventricular white matter. This is consistent with chronic small vessel ischemic changes. There is no midline shift or mass-effect. No acute intra-axial hemorrhage is seen. There are no abnormal areas of increased or decreased density to suggest acute hemorrhage or edema. No extra-axial masses or collections are present. The bony calvarium is intact. The visualized paranasal sinuses are unremarkable. The mastoid air cells are clear. IMPRESSION: 1. No acute intracranial abnormality. No CT evidence of mass, acute infarct or intracranial hemorrhage. 2. Chronic small vessel ischemic changes in the deep white matter. Dictated by: Dictated on workstation # [id number]
[2017-01-29] MEDS ORDERED: LEVOFLOXACIN 500 MG TAB (LEVAQUIN) PO STA (17:48)
[2017-01-29] MEDS ORDERED: CIPR500T4 PO (17:59)
[2017-01-29 18:07] VITALS: BP 163/77
== END 2017-01-29 18:07 | disposition home or self-care (01) ==
LOC: EDUNIT# 15:45 → ER 15:46
DX: G43.909 Migraine, unspecified, not intractable, without status migrainosus (principal); N39.0 Urinary tract infection, site not specified; K21.9 Gastro-esophageal reflux disease without esophagitis; E03.9 Hypothyroidism, unspecified; M54.9 Dorsalgia, unspecified; G89.29 Other chronic pain; F32.9 Major depressive disorder, single episode, unspecified; Z82.49 Family history of ischemic heart disease and other diseases of the circulatory system; Z87.891 Personal history of nicotine dependence; Z90.49 Acquired absence of other specified parts of digestive tract
CPT/HCPCS: 36415; 70450; 80053; 81000; 85025; 85652; 86141; 87088; 87186

== ENCOUNTER → 2017-03-18 | Outpatient (CLI) | payer MEDICARE, MEDICAID ==
[~2017-03-18] MED LIST changes: +CIPR500T4 PO
--- NOTE | 2017-03-18 14:03 | Diagnostic Imaging Report ---
INDICATION: Right arm pain. FINDINGS: Real-time imaging of the upper lateral aspect of the right arm in the area of concern. No subcutaneous masses are seen. The underlying muscles and tissue planes appear normal. No hypervascularity. IMPRESSION: Normal targeted ultrasound to the right upper extremity. Dictated by: Dictated on workstation # [id number]
== END ==
LOC: RAD 10:23
PROVIDERS: ATTEND Internal Medicine
DX: M79.601 Pain in right arm (principal)
CPT/HCPCS: 76881

== ENCOUNTER → 2017-04-04 | Outpatient (CLI) | payer MEDICARE, MEDICAID ==
[~2017-04-04] MED LIST changes: +GADOBUTROL 10 MMOL/10 ML (GADAVIST) VIAL IV ONE
[2017-04-04 18:37] LABS: BLOOD UREA NITROGEN 12 MG/DL (7-18); BUN/CREATININE RATIO 15; CREATININE SERUM 0.82 MG/DL (0.60-1.30); GFR ESTIMATED > 60
--- NOTE | 2017-04-05 11:17 | Diagnostic Imaging Report ---
PROCEDURE: MRI right upper extremity with and without contrast. TECHNIQUE: Multiplanar, multisequence pre and post contrast-enhanced MRI of the right upper extremity was accomplished. INDICATION: Right arm pain. 9 mL of Gadavist is administered intravenously. FINDINGS: There is no soft tissue mass or fluid collection seen. The muscles demonstrate normal signal. The bulk of the muscles is probably normal for the patient's gender and age. The bone marrow signal in the humerus is normal with no focal bone lesion or bone marrow edema. There is no enhancing mass identified. The periphery of the [id number] on this exam demonstrates artifacts from inhomogeneity of the magnetic field affecting particularly the fat-suppressed sequences with no definite underlying lesion. IMPRESSION: No abnormality identified. Dictated by: Dictated on workstation # [id number]
== END ==
LOC: RAD 17:51
PROVIDERS: ATTEND Surgery
DX: M79.621 Pain in right upper arm (principal); R22.31 Localized swelling, mass and lump, right upper limb
CPT/HCPCS: 36415; 73220; 82565; 84520

== ENCOUNTER → 2017-06-06 | Outpatient (CLI) | payer MEDICARE, MEDICAID ==
[~2017-06-06] MED LIST changes: -GADOBUTROL 10 MMOL/10 ML (GADAVIST) VIAL IV ONE
--- NOTE | 2017-06-06 11:15 | Diagnostic Imaging Report ---
EXAMINATION: Modified barium swallow. Indication: Dysphagia Different consistencies of fluid and food was given mixed with barium and swallowing was visualized under fluoroscopy. FLUOROSCOPY TIME: 38 seconds FINDINGS: No aspiration seen.. IMPRESSION: No aspiration seen. Please refer to speech therapist's report for additional details . Dictated by: Dictated on workstation # [id number]
== END ==
LOC: RAD 10:01
PROVIDERS: ATTEND Physical Medicine & Rehabilitation
DX: R13.10 Dysphagia, unspecified (principal)
CPT/HCPCS: 74230

== ENCOUNTER 2017-06-29 13:00 | Outpatient (RCR) | payer MEDICARE, MEDICAID | END 2017-06-29 13:47 | disposition home or self-care (01) | PROVIDERS: ATTEND Physical Medicine & Rehabilitation | DX: R13.10 Dysphagia, unspecified (principal); M25.511 Pain in right shoulder; R20.8 Other disturbances of skin sensation; M79.2 Neuralgia and neuritis, unspecified ==

== ENCOUNTER 2017-09-07 18:44 | Emergency (ER) | payer MEDICARE, MEDICAID ==
[~2017-09-07] VITALS: Ht 157.5 cm; Wt 96.6 kg
--- NOTE | 2017-09-07 19:13 | ED Headache ---
General Chief Complaint: Head/Cervical Problems Stated Complaint: PAIN IN HEAD,NECK, AND LOWER BACK Source: patient Exam Limitations: no limitations History of Present Illness Date Seen by Provider: Sep 07, 2017 Time Seen by Provider: 19:11 Initial Comments To ER per private vehicle accompanied by her with reports of pain in the right side of her head, her neck and her low back. Pain was severe earlier today and she took a Fioricet and 2 Excedrin migraines without relief. She has fibromyalgia and thought that this might just be a fibromyalgia flare. She denies nausea or vomiting. She has a history of headaches. This has been present for 2-3 days Timing/Duration: other (2-3 days) Severity/Quality: moderate Location: parietal (right) Modifying Factors: worse with exposure to light Associated Symptoms: No nausea/vomiting Allergies and Home Medications Allergies Coded Allergies: Penicillins (Unverified Allergy, Intermediate, HIVES, 07/24/10) meperidine (Unverified Allergy, Intermediate, HIVES, 07/24/10) codeine (Unverified Allergy, Mild, PALPITATIONS, 07/24/10) baclofen (Unverified Adverse Reaction, Unknown, dizzy, nausea, 09/07/17) divalproex sodium (Unverified Adverse Reaction, Unknown, 09/07/17) metaxalone (Unverified Adverse Reaction, Unknown, "bad for me", 09/07/17) methocarbamol (Unverified Adverse Reaction, Unknown, HOSTILE/AGGRESSION, ) tizanidine (Unverified Adverse Reaction, Unknown, drowsy, 09/07/17) Home Medications Butalbital/Aspirin/Caffeine 1 Each Capsule, 1 EACH PO PRN PRN for MIGRAINE, ( Reported) Hydrocodone Bit/Acetaminophen 1 Ea Tablet, 1-2 TAB PO TID PRN for PAIN, ( Reported) Levothyroxine Sodium 75 Mcg Tablet, 1 EACH PO DAILY, (Reported) Orphenadrine Citrate 100 Mg Tablet.sa, 100 MG PO BID, (Reported) Pantoprazole Sodium 40 Mg Tablet.dr, 40 MG PO DAILY, (Reported) Sucralfate 1 Gm Tablet, 1 GM PO TID, (Reported) Topiramate 200 Mg Tablet, 400 MG PO DAILY, (Reported) Vortioxetine Hydrobromide 5 Mg Tablet, 5 MG PO DAILY, (Reported) Patient Home Medication List Home Medication List Reviewed: Yes Constitutional: see HPI Eyes: No Symptoms Reported Ears, Nose, Mouth, Throat: no symptoms reported Respiratory: no symptoms reported Cardiovascular: no symptoms reported Genitourinary: no symptoms reported Musculoskeletal: no symptoms reported Skin: no symptoms reported Psychiatric/Neurological: No Symptoms Reported Past Iwynivh-Ghnjwk-Yiamuw Hx Patient Social History Type Used: Cigarettes 2nd Hand Smoke Exposure: No Recent Hopitalizations: No Immunizations Up To Date PED Vaccines UTD: No Date of Pneumonia Vaccine: Apr 02, 2013 Date of Influenza Vaccine: Apr 01, 2016 Seasonal Allergies Seasonal Allergies: No Surgeries History of Surgeries: Yes Surgeries: Abdominal, Appendectomy, Bowel Surgery, Section, Gallbladder, Orthopedic, Tonsillectomy Respiratory History of Respiratory Disorde: No Currently Using CPAP: No Currently Using BIPAP: No Cardiovascular History of Cardiac Disorders: No Neurological History of Neurological Disord: No Reproductive System Sexually Transmitted Disease: No HIV/AIDS: No Female Reproductive Disorders: Denies Genitourinary History of Genitourinary Disor: No Gastrointestinal History of Gastrointestinal Di: Yes (COLON RESECTION FOR ? BENIGN TUMOR? 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 ear.) Loss of Vision: Right Hearing Impairment: Deaf Cancer History of Cancer: No Did You Recieve Any Treatments: No Psychosocial History of Psychiatric Problem: Yes Behavioral Health Disorders: Depression Integumentary History of Skin or Integumenta: No Blood Transfusions History of Blood Disorders: No Adverse Reaction to a Blood Tr: No Family Medical History Family Medial History: Congenital heart disease Diabetes mellitus G8 BROTHER, Onset:Unknown Irregular heart beat 19 FATHER, , Onset:Unknown G8 SISTER, Onset:Unknown Myocardial infarction G8 BROTHER, Onset:Unknown Physical Exam Vital Signs Vital Signs - First Documented 09/07/17 19:08 Temp 98.2 Pulse 74 Resp 16 B/P (MAP) 150/74 (99) Pulse Ox 97 O2 Delivery Room Air Capillary Refill : Less Than 3 Seconds General Appearance: WD/WN, no apparent distress HEENT: PERRL/EOMI, normal ENT inspection Neck: non-tender, full range of motion Respiratory: normal breath sounds, no respiratory distress, no accessory muscle use Gastrointestinal: normal bowel sounds, non tender Extremities: normal range of motion, non-tender Crainal Nerves: normal hearing, normal speech, PERRL Skin: normal color, warm/dry Comments Keeps her sunglasses on Progress/Results/Core Measures Results/Orders Lab Results Laboratory Tests Test 09/07/17 19:30 09/07/17 19:50 Range/Units White Blood Count 9.6 4.3-11.0 10^3/uL Red Blood Count 4.04 L 4.35-5.85 10^6/uL Hemoglobin 12.7 11.5-16.0 G/DL Hematocrit 38 35-52 % Mean Corpuscular Volume 95 80-99 FL Mean Corpuscular Hemoglobin 31 25-34 PG Mean Corpuscular Hemoglobin Concent 33 32-36 G/DL Red Cell Distribution Width 12.8 10.0-14.5 % Platelet Count 299 130-400 10^3/uL Mean Platelet Volume 9.5 7.4-10.4 FL Neutrophils (%) (Auto) 46 42-75 % Lymphocytes (%) (Auto) 40 12-44 % Monocytes (%) (Auto) 11 0-12 % Eosinophils (%) (Auto) 3 0-10 % Basophils (%) (Auto) 0 0-10 % Neutrophils # (Auto) 4.4 1.8-7.8 X 10^3 Lymphocytes # (Auto) 3.8 1.0-4.0 X 10^3 Monocytes # (Auto) 1.0 0.0-1.0 X 10^3 Eosinophils # (Auto) 0.3 0.0-0.3 10^3/uL Basophils # (Auto) 0.0 0.0-0.1 10^3/uL Sodium Level 133 L 135-145 MMOL/L Potassium Level 3.7 3.6-5.0 MMOL/L Chloride Level 104 98-107 MMOL/L Carbon Dioxide Level 22 21-32 MMOL/L Anion Gap 7 5-14 MMOL/L Blood Urea Nitrogen 13 7-18 MG/DL Creatinine 0.78 0.60-1.30 MG/DL Estimat Glomerular Filtration Rate > 60 BUN/Creatinine Ratio 17 Glucose Level 99 70-105 MG/DL Calcium Level 9.2 8.5-10.1 MG/DL Total Bilirubin 0.2 0.1-1.0 MG/DL Aspartate Amino Transf (AST/SGOT) 22 5-34 U/L Alanine Aminotransferase (ALT/SGPT) 10 0-55 U/L Alkaline Phosphatase 97 40-136 U/L Total Protein 6.9 6.4-8.2 GM/DL Albumin 3.9 3.2-4.5 GM/DL Urine Color YELLOW Urine Clarity CLEAR Urine pH 6.5 5-9 Urine Specific [place] 1.010 L 1.016-1.022 Urine Protein NEGATIVE NEGATIVE Urine Glucose (UA) NEGATIVE NEGATIVE Urine Ketones NEGATIVE NEGATIVE Urine Nitrite NEGATIVE NEGATIVE Urine Bilirubin NEGATIVE NEGATIVE Urine Urobilinogen NORMAL NORMAL MG/DL Urine Leukocyte Esterase 3+ H NEGATIVE Urine RBC (Auto) NEGATIVE NEGATIVE Urine RBC NONE /HPF Urine WBC 10-25 H /HPF Urine Squamous Epithelial Cells 0-2 /HPF Urine Crystals NONE /LPF Urine Bacteria TRACE /HPF Urine Casts NONE /LPF Urine Mucus NEGATIVE /LPF Urine Culture Indicated YES My Orders Orders - GREY MCKEON APRN Cbc With Automated Diff (09/07/17 19:10) Comprehensive Metabolic Panel (09/07/17 19:10) Ua Culture If Indicated (09/07/17 19:10) Saline Lock/Iv-Start (09/07/17 19:10) Lactated Ringers (Lr 1000 Ml Iv Solution (09/07/17 19:15) Ketorolac Injection (Toradol Injection) (09/07/17 19:15) Prochlorperazine Injection (Compazine In (09/07/17 19:15) Urine Culture (09/07/17 19:50) Medications Given in ED Current Medications Medications Dose Ordered Sig/Emily Route Start Time Stop Time Status Last Admin Dose Admin Ketorolac Tromethamine 30 mg ONCE ONCE IVP 09/07/17 19:15 09/07/17 19:16 DC 09/07/17 19:31 30 MG Prochlorperazine Edisylate 5 mg ONCE ONCE IV 09/07/17 19:15 09/07/17 19:16 DC 09/07/17 19:31 5 MG Vital Signs/I&O Vital Sign - Last 12Hours 09/07/17 19:08 Temp 98.2 Pulse 74 Resp 16 B/P (MAP) 150/74 (99) Pulse Ox 97 O2 Delivery Room Air Departure Impression Impression: Primary Impression: Headache Additional Impression: Urinary tract infection Disposition: HOME, SELF-CARE Condition: Stable Departure-Patient Inst. Decision time for Depature: 20:32 Referrals: JOE BAI MD (PCP/Family) Primary Care Physician Patient Instructions: Headache, Adult (DC), Urinary Tract Infection, Adult (DC) Add. Discharge Instructions: 1. Follow up with your doctor this week 2. Antibotics as directed 3. Return to ER for any concerns All discharge instructions reviewed with patient and/or family. Voiced understanding. Scripts Sulfamethoxazole/Trimethoprim (Bactrim Ds Tablet) 1 Each Tablet 1 EACH PO BID, #10 TAB Prov: GREY MCKEON APRN 09/07/17 GREY MCKEON APRN Sep 07, 2017 19:13
[2017-09-07] MEDS ORDERED: LACTATED RINGERS 1,000 ML IV SCH (19:15)
[2017-09-07] MEDS ORDERED: PROCHLORPERAZINE 10 MG/2ML INJ (COMPAZINE) IV ONE (19:15)
[2017-09-07] MEDS ORDERED: KETOROLAC 30 MG/ML VIAL IVP ONE (19:15)
[2017-09-07] MEDS ORDERED: BUTA1CAP17 PO (19:17)
[2017-09-07] MEDS ORDERED: SUCR1TAB PO (19:17)
[2017-09-07] MEDS ORDERED: VORT5TAB PO (19:17)
[2017-09-07] MEDS ORDERED: ASPI-789 PO (19:17)
[2017-09-07 19:41] LABS: BASOPHILS % (AUTO) 0 % (0-10); EOSINOPHILS # (AUTO) 0.3 10^3/uL (0.0-0.3); EOSINOPHILS % (AUTO) 3 % (0-10); HEMATOCRIT 38 % (35-52); HEMOGLOBIN 12.7 G/DL (11.5-16.0); LYMPHOCYTES # (AUTO) 3.8 X 10^3 (1.0-4.0); LYMPHOCYTES % (AUTO) 40 % (12-44); MEAN CORPUSCULAR HEMOGLOBIN 31 PG (25-34); MEAN CORPUSCULAR HGB CONC 33 G/DL (32-36); MEAN CORPUSCULAR VOLUME 95 FL (80-99); MEAN PLATELET VOLUME 9.5 FL (7.4-10.4); MONOCYTES % (AUTO) 11 % (0-12); NEUTROPHILS # (AUTO) 4.4 X 10^3 (1.8-7.8); NEUTROPHILS % (AUTO) 46 % (42-75); PLATELET COUNT 299 10^3/uL (130-400); RED BLOOD COUNT 4.04 10^6/uL (4.35-5.85); RED CELL DISTRIBUTION WIDTH 12.8 % (10.0-14.5); WHITE BLOOD COUNT 9.6 10^3/uL (4.3-11.0)
[2017-09-07 19:56] LABS: BILIRUBIN,URINE NEGATIVE (NEGATIVE); CLARITY,URINE CLEAR; COLOR,URINE YELLOW; GLUCOSE, URINE (UA) NEGATIVE (NEGATIVE); KETONES,URINE NEGATIVE (NEGATIVE); LEUKOCYTE ESTERASE ,URINE 3+ (NEGATIVE); NITRITE,URINE NEGATIVE (NEGATIVE); PH,URINE 6.5 (5-9); PROTEIN,URINE NEGATIVE (NEGATIVE); UROBILINOGEN,URINE NORMAL (NORMAL)
[2017-09-07 20:00] LABS: ALANINE AMINOTRANSFERASE 10 U/L (0-55); ALBUMIN 3.9 GM/DL (3.2-4.5); ALKALINE PHOSPHATASE 97 U/L (40-136); BILIRUBIN,TOTAL 0.2 MG/DL (0.1-1.0); BUN/CREATININE RATIO 17; CALCIUM 9.2 MG/DL (8.5-10.1); CARBON DIOXIDE 22 MMOL/L (21-32); CHLORIDE 104 MMOL/L (98-107); CREATININE SERUM 0.78 MG/DL (0.60-1.30); GFR ESTIMATED > 60; GLUCOSE 99 MG/DL (70-105); POTASSIUM 3.7 MMOL/L (3.6-5.0); SODIUM 133 MMOL/L (135-145); TOTAL PROTEIN 6.9 GM/DL (6.4-8.2)
[2017-09-07 20:17] LABS: BACTERIA,URINE TRACE /HPF; SQUAMOUS EPITHELIAL CELL,UR 0-2 /HPF
[2017-09-07] MEDS ORDERED: SULF1TAB35 PO (20:33)
[2017-09-07] MEDS ORDERED: diphenhydrAMINE 50 MG/ML INJ (BENADRYL) IVP ONE (20:45)
[2017-09-07] MEDS ORDERED: TRIM/SULFAMETH 160/800 (SEPTRA DS) TAB PO ONE (20:45)
[2017-09-07 20:57] VITALS: BP 147/74
== END 2017-09-07 20:57 | disposition home or self-care (01) ==
LOC: EDUNIT# 18:44 → ER 18:45
DX: R51 Headache (principal); N39.0 Urinary tract infection, site not specified; F32.9 Major depressive disorder, single episode, unspecified; E03.9 Hypothyroidism, unspecified; K21.9 Gastro-esophageal reflux disease without esophagitis; Z87.19 Personal history of other diseases of the digestive system; Z90.49 Acquired absence of other specified parts of digestive tract; Z90.89 Acquired absence of other organs; Z87.59 Personal history of other complications of pregnancy, childbirth and the puerperium; Z88.0 Allergy status to penicillin; Z88.5 Allergy status to narcotic agent; Z88.6 Allergy status to analgesic agent; Z88.1 Allergy status to other antibiotic agents
CPT/HCPCS: 36415; 80053; 81000; 85025; 87088; 96361; 96374; 96375

== ENCOUNTER 2017-09-21 14:19 | Emergency (ER) | payer MEDICARE, MEDICAID ==
[~2017-09-21] VITALS: Ht 157.5 cm; Wt 96.6 kg
[~2017-09-21 14:19] MED LIST changes: +ASPI-789 PO; +BUTA1CAP17 PO; +SUCR1TAB PO; +SULF1TAB35 PO; +VORT5TAB PO
--- OUTSIDE RECORDS SUMMARY | 2017-09-21 14:23 | XMS REPORT ---
Author Author NAM LYLES [facility] Address [address] [place] [address] Care Team Providers Care Commissary Representative Name Role Phone NAM LYLES Unavailable PROBLEMS Type Condition ICD9-CM Code [id number] Code Onset Dates Condition Status SNOMED Code Problem Right wrist pain M25.531 Active 87931286 Problem Adjustment disorder with anxiety F43.22 Active 22911916 Problem Anxiety F41.9 Active 49355469 Problem Hypothyroidism, unspecified type E03.9 Active 13534991 Problem Reflex sympathetic dystrophy G90.50 Active 63583660 Problem Fibromyalgia M79.7 Active 382919003 Problem Right elbow pain M25.521 Active 19845776 Problem Rosacea L71.9 Active 541859427 Problem Plantar wart of right foot B07.0 Active 53114288 Problem Arthritis M19.90 Active 5552883 Problem Venous insufficiency I87.2 Active 97246189 Problem Gastroesophageal reflux disease, esophagitis presence not specified K21.9 Active 831811785 Problem Reactive depression F32.9 Active 16306742 ALLERGIES Substance Reaction Event Type Date Status Robaxin Unknown Drug Allergy Aug, Active Penicillin V Potassium Unknown Drug Allergy Aug, Active Demerol Unknown Drug Allergy Aug, Active Codeine Sulfate Unknown Drug Allergy Aug, Active SOCIAL HISTORY Never Assessed PLAN OF CARE Activity Details Follow Up 2 Weeks Reason: VITAL SIGNS MEDICATIONS Unknown Medications RESULTS No Results PROCEDURES Procedure Date Ordered Result Body Site Psychotherapy, patient &/family, 30 minutes, established patient September 03, 2016 IMMUNIZATIONS No Known Immunizations MEDICAL (GENERAL) HISTORY Type Description Date Medical History Reflex sympathetic dystrophy Medical History Radiculopathy, site unspecified Medical History Fibromyalgia Medical History Plantar fascial fibromatosis Medical History Lateral epicondylitis, right elbow Medical History Lateral epicondylitis, left elbow Surgical History tonsillectomy Surgical History appendectomy Surgical History section Surgical History hysterectomy, abdominal Surgical History carpal tunnel release Surgical History cholecystectomy Surgical History colon resection Hospitalization History surgeries Hospitalization History Chest Pain-[facility] 07/02/16
--- OUTSIDE RECORDS SUMMARY | 2017-09-21 14:23 | XMS REPORT ---
Author Author JOE BAI [facility] Address [address] [place] [address] Care Team Providers Care Truer Pinion And Wheel Name Role Phone JOE BAI Unavailable PROBLEMS Type Condition ICD9-CM Code [id number] Code Onset Dates Condition Status SNOMED Code Problem Right wrist pain M25.531 Active 01690295 Problem Adjustment disorder with anxiety F43.22 Active 61096226 Problem Anxiety F41.9 Active 86588650 Problem Hypothyroidism, unspecified type E03.9 Active 45600778 Problem Reflex sympathetic dystrophy G90.50 Active 08636795 Problem Fibromyalgia M79.7 Active 303447882 Problem Right elbow pain M25.521 Active 53834494 Problem Rosacea L71.9 Active 991818686 Problem Plantar wart of right foot B07.0 Active 05888882 Problem Arthritis M19.90 Active 2913960 Problem Venous insufficiency I87.2 Active 55301778 Problem Gastroesophageal reflux disease, esophagitis presence not specified K21.9 Active 978594700 Problem Reactive depression F32.9 Active 42152237 ALLERGIES No Information SOCIAL HISTORY Never Assessed PLAN OF CARE VITAL SIGNS MEDICATIONS Medication Instructions Dosage Frequency Start Date End Date Duration Status Hydrocodone-Acetaminophen 7.5-325 MG Orally 3 times a day 1 tablet 8h October, 28 days Active RESULTS No Results PROCEDURES No Known procedures IMMUNIZATIONS No Known Immunizations MEDICAL (GENERAL) HISTORY [...] resection Hospitalization History surgeries Hospitalization History Chest Pain-[facility] 07/02/16
--- OUTSIDE RECORDS SUMMARY | 2017-09-21 14:24 | XMS REPORT ---
Author Author LEONID SAUNDERS Organization [facility] Address [address] [place] [address] Care Team Providers Care Lubrication Technician Name Role Phone LEONID SAUNDERS Unavailable PROBLEMS Type Condition ICD9-CM Code EUO74-GS Code Onset Dates Condition Status SNOMED Code Problem Right wrist pain M25.531 Active 55253927 Problem Adjustment disorder with anxiety F43.22 Active 48927974 Problem Anxiety F41.9 Active 84681053 Problem Hypothyroidism, unspecified type E03.9 Active 41889456 Problem Reflex sympathetic dystrophy G90.50 Active 74677410 Problem Fibromyalgia M79.7 Active 679467656 Problem Right elbow pain M25.521 Active 28770516 Problem Rosacea L71.9 Active 401768186 Problem Plantar wart of right foot B07.0 Active 51451602 Problem Arthritis M19.90 Active 8540801 Problem Venous insufficiency I87.2 Active 46109560 Problem Gastroesophageal reflux disease, esophagitis presence not specified K21.9 Active 381549535 Problem Reactive depression F32.9 Active 95904223 ALLERGIES Unknown Allergies SOCIAL HISTORY No smoking Hx information available PLAN OF CARE VITAL SIGNS MEDICATIONS Medication Instructions Dosage Frequency Start Date End Date Duration Status Norflex 100 MG by oral route every 12 hrs 1 tablet 12h Active Hydrocodone-Acetaminophen 7.5-325 MG Orally 3 times a day 1 tablet as needed 8h Jun, Active Topiramate 200 mg Orally Once a day 2 tablets 24h Active Pantoprazole Sodium 40 MG Orally Once a day 1 tablet 24h Active Synthroid 75 MCG Orally Once a day 1 tablet 24h Active Prozac 20 mg Orally Once a day 2 capsule in the morning 24h Active RESULTS Name Result Date Reference Range Exercise Treadmill Stress Test (TMST) 2016-07-07 PROCEDURES No Known procedures IMMUNIZATIONS No Known Immunizations
--- OUTSIDE RECORDS SUMMARY | 2017-09-21 14:24 | XMS REPORT ---
Author Author JOE BAI [facility] Address [address] [place] [address] Care Team Providers Care Grain Thresher Name Role Phone JOE BAI Unavailable PROBLEMS Type Condition ICD9-CM Code [id number] Code Onset Dates Condition Status SNOMED Code Problem Right wrist pain M25.531 Active 86578665 Problem Adjustment disorder with anxiety F43.22 Active 95484182 Problem Anxiety F41.9 Active 55789021 Problem Hypothyroidism, unspecified type E03.9 Active 54519368 Problem Reflex sympathetic dystrophy G90.50 Active 86486856 Problem Fibromyalgia M79.7 Active 776373129 Problem Right elbow pain M25.521 Active 25169037 Problem Rosacea L71.9 Active 116420246 Problem Plantar wart of right foot B07.0 Active 94986137 Problem Arthritis M19.90 Active 9078395 Problem Venous insufficiency I87.2 Active 03438626 Problem Gastroesophageal reflux disease, esophagitis presence not specified K21.9 Active 327811049 Problem Reactive depression F32.9 Active 10499696 ALLERGIES No Information SOCIAL HISTORY Never Assessed PLAN OF CARE VITAL SIGNS MEDICATIONS Medication Instructions Dosage Frequency Start Date End Date Duration Status Pantoprazole Sodium 40 mg Orally Once a day 1 tablet 24h 30 days Active RESULTS No Results PROCEDURES No [...]
--- OUTSIDE RECORDS SUMMARY | 2017-09-21 14:24 | XMS REPORT ---
Author Author LEONID SAUNDERS Organization [facility] Address [address] [place] [address] Care Team Providers Care Gas Fitter Helper Name Role Phone LEONID SAUNDERS Unavailable PROBLEMS Type Condition ICD9-CM Code UHK68-CD Code Onset Dates Condition Status SNOMED Code Problem Right wrist pain M25.531 Active 88875322 Problem Adjustment disorder with anxiety F43.22 Active 31385068 Problem Anxiety F41.9 Active 82617359 Problem Hypothyroidism, unspecified type E03.9 Active 17780779 Problem Reflex sympathetic dystrophy G90.50 Active 06794146 Problem Fibromyalgia M79.7 Active 323078173 Problem Right elbow pain M25.521 Active 94360755 Problem Rosacea L71.9 Active 409529628 Problem Plantar wart of right foot B07.0 Active 85799837 Problem Arthritis M19.90 Active 8741310 Problem Venous insufficiency I87.2 Active 10638736 Problem Gastroesophageal reflux disease, esophagitis presence not specified K21.9 Active 044433564 Problem Reactive depression F32.9 Active 91559914 ALLERGIES Substance Reaction Event Type Date Status Robaxin Unknown Drug Allergy Jun, Active Penicillin V Potassium Unknown Drug Allergy Jun, Active Demerol Unknown Drug Allergy Jun, Active Codeine Sulfate Unknown Drug Allergy Jun, Active SOCIAL HISTORY No smoking Hx information available PLAN OF CARE Activity Details Follow Up [address] Garcia Reason: VITAL SIGNS Height 62 in 2016-07-08 Weight 202.2 lbs 2016-07-08 Temperature 98.1 degrees Fahrenheit 2016-07-08 Heart Rate 80 bpm 2016-07-08 Respiratory Rate 18 2016-07-08 Oximetry 98 % 2016-07-08 BMI 36.98 kg/m2 2016-07-08 Blood pressure systolic 114 mmHg 2016-07-08 Blood pressure diastolic 82 mmHg 2016-07-08 MEDICATIONS Medication Instructions Dosage Frequency Start Date End Date Duration Status Topiramate 200 mg Orally Once a day 2 tablets 24h Active Norflex 100 MG by oral route every 12 hrs 1 tablet 12h Active Abilify 5 mg Orally Once a day 1 tablet 24h Jun, 30 day(s) Active Synthroid 75 MCG Orally Once a day 1 tablet 24h Active Pantoprazole Sodium 40 MG Orally Once a day 1 tablet 24h Active Hydrocodone-Acetaminophen 7.5-325 MG Orally 3 times a day 1 tablet as needed 8h 10 Jun, 2016 Active Prozac 20 mg Orally Once a day 2 capsule in the morning 24h Active RESULTS No Results PROCEDURES Procedure Date Ordered Related Diagnosis Body Site MEASURE BLOOD OXYGEN LEVEL Jul 08, 2016 [facility] VISIT ESTABLISHED PATIENT Jul 08, 2016 Office Visit, Est Pt., Level 4 Jul 08, 2016 IMMUNIZATIONS No Known Immunizations
--- OUTSIDE RECORDS SUMMARY | 2017-09-21 14:24 | XMS REPORT ---
Author Author JOE BAI [facility] Address [address] [place] [address] Care Team Providers Care Manager Linux Name Role Phone JOE BAI Unavailable PROBLEMS Type Condition ICD9-CM Code PLG94-ER Code Onset Dates Condition Status SNOMED Code Problem Right wrist pain M25.531 Active 19567144 Problem Adjustment disorder with anxiety F43.22 Active 71735455 Problem Anxiety F41.9 Active 81559161 Problem Hypothyroidism, unspecified type E03.9 Active 44634038 Problem Reflex sympathetic dystrophy G90.50 Active 51938350 Problem Fibromyalgia M79.7 Active 247716975 Problem Right elbow pain M25.521 Active 32040162 Problem Rosacea L71.9 Active 233713943 Problem Plantar wart of right foot B07.0 Active 57552048 Problem Arthritis M19.90 Active 4645823 Problem Venous insufficiency I87.2 Active 16059220 Problem Gastroesophageal reflux disease, esophagitis presence not specified K21.9 Active 383782352 Problem Reactive depression F32.9 Active 07024883 ALLERGIES No Information SOCIAL HISTORY Never Assessed PLAN OF CARE VITAL SIGNS MEDICATIONS Medication Instructions Dosage Frequency Start Date End Date Duration Status Mobic 7.5 MG Orally Once a day 1 tablet 24h Jul, 30 day(s) Active RESULTS No Results PROCEDURES No Known [...]
--- OUTSIDE RECORDS SUMMARY | 2017-09-21 14:24 | XMS REPORT ---
Author Author JOE BAI Organization [facility] Address [address] [place] [address] Care Team Providers Care Machine Hose Cutter Name Role Phone JOE BAI Unavailable PROBLEMS Type Condition ICD9-CM Code [id number] Code Onset Dates Condition Status SNOMED Code Problem Right wrist pain M25.531 Active 78698425 Problem Adjustment disorder with anxiety F43.22 Active 50823771 Problem Anxiety F41.9 Active 00769704 Problem Hypothyroidism, unspecified type E03.9 Active 00614053 Problem Reflex sympathetic dystrophy G90.50 Active 67348043 Problem Fibromyalgia M79.7 Active 427477623 Problem Right elbow pain M25.521 Active 53411643 Problem Rosacea L71.9 Active 721085073 Problem Plantar wart of right foot B07.0 Active 09488292 Problem Arthritis M19.90 Active 7383384 Problem Venous insufficiency I87.2 Active 54655101 Problem Gastroesophageal reflux disease, esophagitis presence not specified K21.9 Active 686054476 Problem Reactive depression F32.9 Active 92530250 ALLERGIES No Information SOCIAL HISTORY Never Assessed PLAN OF CARE VITAL SIGNS MEDICATIONS Unknown Medications RESULTS Name Result Date Reference Range Xray : Foot, Left 3 views (IN HOUSE) 2016-09-08 Xray : Foot, Right 3 views (IN HOUSE) 2016-09-08 PROCEDURES Procedure Date Ordered Result Body Site X-RAY EXAM OF FOOT September 08, 2016 IMMUNIZATIONS No Known Immunizations MEDICAL (GENERAL) [...]
--- OUTSIDE RECORDS SUMMARY | 2017-09-21 14:24 | XMS REPORT ---
Author Author SHERRY JENNINGS [facility] Address [address] [place] [address] Care Team Providers Care Fringe Knotter Name Role Phone SHERRY JENNINGS Unavailable PROBLEMS Type Condition ICD9-CM Code OOX38-MD Code Onset Dates Condition Status SNOMED Code Problem Right wrist pain M25.531 Active 45854690 Problem Adjustment disorder with anxiety F43.22 Active 97879602 Problem Anxiety F41.9 Active 45052500 Problem Hypothyroidism, unspecified type E03.9 Active 28622015 Problem Reflex sympathetic dystrophy G90.50 Active 24631524 Problem Fibromyalgia M79.7 Active 161501749 Problem Right elbow pain M25.521 Active 36302238 Problem Rosacea L71.9 Active 268410471 Problem Plantar wart of right foot B07.0 Active 11833647 Problem Arthritis M19.90 Active 0854367 Problem Venous insufficiency I87.2 Active 04251142 Problem Gastroesophageal reflux disease, esophagitis presence not specified K21.9 Active 239849983 Problem Reactive depression F32.9 Active 79419714 ALLERGIES Substance Reaction Event Type Date Status Robaxin Unknown Drug Allergy Aug, Active Penicillin V Potassium Unknown Drug Allergy Aug, Active Demerol Unknown Drug Allergy Aug, Active Codeine Sulfate Unknown Drug Allergy Aug, Active SOCIAL HISTORY Never Assessed PLAN OF CARE Activity Details Follow Up 4 Weeks Reason:actinic keratosis cryotherapy VITAL SIGNS Height 62 in 2016-08-24 Weight 206.4 lbs 2016-08-24 Temperature 98.5 degrees Fahrenheit 2016-08-24 Heart Rate 88 bpm 2016-08-24 Respiratory Rate 20 2016-08-24 BMI 37.75 kg/m2 2016-08-24 Blood pressure systolic 141 mmHg 2016-08-24 Blood pressure diastolic 93 mmHg 2016-08-24 MEDICATIONS Medication Instructions Dosage Frequency Start Date End Date Duration Status Norflex 100 MG by oral route every 12 hrs 1 tablet 12h Active Pantoprazole Sodium 40 mg Orally Once a day 1 tablet 24h 30 days Active Prozac 20 mg Orally Once a day 2 capsule in the morning 24h Active Topiramate 200 mg Orally Once a day 2 tablets 24h Active Mobic 7.5 MG Orally Once a day 1 tablet 24h Jul, October, 30 day(s) Active Abilify 10 MG Orally Once a day 1 tablet 24h Jun, 30 day(s) Active Hydrocodone-Acetaminophen 7.5-325 MG Orally 3 times a day 1 tablet 8h Aug, 28 days Active Synthroid 75 MCG Orally Once a day 1 tablet 24h Active RESULTS No Results PROCEDURES Procedure Date Ordered Result Body Site [facility] VISIT ESTABLISHED PATIENT August 24, 2016 IMMUNIZATIONS No Known Immunizations MEDICAL (GENERAL) [...]
--- OUTSIDE RECORDS SUMMARY | 2017-09-21 14:24 | XMS REPORT ---
Author Author JOE BAI [facility] Address [address] [place] [address] Care Team Providers Care Cotton Farmer Name Role Phone JOE BAI Unavailable PROBLEMS Type Condition ICD9-CM Code [id number] Code Onset Dates Condition Status SNOMED Code Problem Right wrist pain M25.531 Active 97992440 Problem Adjustment disorder with anxiety F43.22 Active 76054544 Problem Anxiety F41.9 Active 46127471 Problem Hypothyroidism, unspecified type E03.9 Active 89767795 Problem Reflex sympathetic dystrophy G90.50 Active 82999645 Problem Fibromyalgia M79.7 Active 346892943 Problem Right elbow pain M25.521 Active 00345245 Problem Rosacea L71.9 Active 829559324 Problem Plantar wart of right foot B07.0 Active 44321062 Problem Arthritis M19.90 Active 2754829 Problem Venous insufficiency I87.2 Active 69124322 Problem Gastroesophageal reflux disease, esophagitis presence not specified K21.9 Active 880811631 Problem Reactive depression F32.9 Active 77174035 ALLERGIES No Information SOCIAL HISTORY Never Assessed PLAN OF CARE VITAL SIGNS MEDICATIONS Medication Instructions Dosage Frequency Start Date End Date Duration Status Hydrocodone-Acetaminophen 7.5-325 MG Orally 3 times a day 1 tablet 8h Aug, 28 days Active RESULTS No Results PROCEDURES [...]
--- OUTSIDE RECORDS SUMMARY | 2017-09-21 14:24 | XMS REPORT ---
Author Author NAM LYLES [facility] Address [address] [place] [address] Care Team Providers Care Fisher Gill Net Name Role Phone NAM LYLES Unavailable PROBLEMS Type Condition ICD9-CM Code [id number] Code Onset Dates Condition Status SNOMED Code Problem Right wrist pain M25.531 Active 40785426 Problem Adjustment disorder with anxiety F43.22 Active 75631594 Problem Anxiety F41.9 Active 80921242 Problem Hypothyroidism, unspecified type E03.9 Active 65443021 Problem Reflex sympathetic dystrophy G90.50 Active 56047289 Problem Fibromyalgia M79.7 Active 383915395 Problem Right elbow pain M25.521 Active 13527546 Problem Rosacea L71.9 Active 283984341 Problem Plantar wart of right foot B07.0 Active 47339673 Problem Arthritis M19.90 Active 0975538 Problem Venous insufficiency I87.2 Active 19389677 Problem Gastroesophageal reflux disease, esophagitis presence not specified K21.9 Active 021924335 Problem Reactive depression F32.9 Active 30843037 ALLERGIES Substance Reaction Event Type Date Status Robaxin Unknown Drug Allergy Jun, Active Penicillin V Potassium Unknown Drug Allergy Jun, Active Demerol Unknown Drug Allergy Jun, Active Codeine Sulfate Unknown Drug Allergy Jun, Active SOCIAL HISTORY No smoking Hx information available PLAN OF CARE Activity Details Follow Up prn Reason:Depression VITAL SIGNS MEDICATIONS Unknown Medications RESULTS No Results PROCEDURES Procedure Date Ordered Related Diagnosis Body Site Psych diagnostic evaluation, new patient Jul 16, 2016 IMMUNIZATIONS No Known Immunizations
--- OUTSIDE RECORDS SUMMARY | 2017-09-21 14:24 | XMS REPORT ---
Author Author JOE BAI [facility] Address [address] [place] [address] Care Team Providers Care Custodial Operations Manager Name Role Phone JOE BAI Unavailable PROBLEMS Type Condition ICD9-CM Code NOK03-[id number] Code Onset Dates Condition Status SNOMED Code Problem Right wrist pain M25.531 Active 35486567 Problem Adjustment disorder with anxiety F43.22 Active 56041130 Problem Anxiety F41.9 Active 48431946 Problem Hypothyroidism, unspecified type E03.9 Active 95914748 Problem Reflex sympathetic dystrophy G90.50 Active 21704370 Problem Fibromyalgia M79.7 Active 158745029 Problem Right elbow pain M25.521 Active 16407626 Problem Rosacea L71.9 Active 949078811 Problem Plantar wart of right foot B07.0 Active 35434848 Problem Arthritis M19.90 Active 2399187 Problem Venous insufficiency I87.2 Active 24927813 Problem Gastroesophageal reflux disease, esophagitis presence not specified K21.9 Active 812003857 Problem Reactive depression F32.9 Active 38808899 ALLERGIES Unknown Allergies SOCIAL HISTORY No smoking Hx information available PLAN OF CARE VITAL SIGNS MEDICATIONS Medication Instructions Dosage Frequency Start Date End Date Duration Status Norflex 100 MG by oral route every 12 hrs 1 tablet 12h Active RESULTS No Results PROCEDURES No Known procedures IMMUNIZATIONS No Known Immunizations
--- OUTSIDE RECORDS SUMMARY | 2017-09-21 14:24 | XMS REPORT ---
Author Author EMILIANO AUGUSTO Organization [facility] Address [address] [place] [address] Care Team Providers Care Ditch Rider Name Role Phone AUGUSTO CUMMINGS Unavailable PROBLEMS Type Condition ICD9-CM Code KSK74-BR Code Onset Dates Condition Status SNOMED Code Problem Right wrist pain M25.531 Active 26756464 Problem Adjustment disorder with anxiety F43.22 Active 86857811 Problem Anxiety F41.9 Active 89852822 Problem Hypothyroidism, unspecified type E03.9 Active 87422936 Problem Reflex sympathetic dystrophy G90.50 Active 02075391 Problem Fibromyalgia M79.7 Active 288047285 Problem Right elbow pain M25.521 Active 57130777 Problem Rosacea L71.9 Active 288790891 Problem Plantar wart of right foot B07.0 Active 18845170 Problem Arthritis M19.90 Active 2146357 Problem Venous insufficiency I87.2 Active 03189892 Problem Gastroesophageal reflux disease, esophagitis presence not specified K21.9 Active 799179003 Problem Reactive depression F32.9 Active 81001431 ALLERGIES No Information SOCIAL HISTORY Never Assessed PLAN OF CARE Activity Details Follow Up 4 Weeks Reason: VITAL SIGNS Height 62 in 2016-11-12 Blood pressure systolic 134 mmHg 2016-11-12 Blood pressure diastolic 84 mmHg 2016-11-12 MEDICATIONS Unknown Medications RESULTS No Results PROCEDURES Procedure Date Ordered Result Body Site STRAPPING OF ANKLE AND/OR FT November 12, 2016 [facility] VISIT ESTABLISHED PATIENT November 12, 2016 IMMUNIZATIONS No Known Immunizations MEDICAL (GENERAL) [...]
--- OUTSIDE RECORDS SUMMARY | 2017-09-21 14:24 | XMS REPORT ---
Author Author Sylvester Smith Organization [facility] Address [address] [place], [place] [address] Care Team Providers Care Customer Account Technician Name Role Phone Sylvseter Smith PCP Allergies and Adverse Reactions Name Reaction Notes PENICILLINS codeine sulfate Demerol Robaxin Plan of Treatment Not available. Medications Active Name Start Date Estimated Completion Date SIG Comments topiramate 200 mg oral tablet take 1 tablet (200 mg) by oral route 2 times per day orphenadrine citrate 100 mg oral tablet extended release take 1 tablet ( 100 mg) by oral route 2 times per day in the morning and evening pantoprazole 40 mg oral tablet,delayed release (DR/EC) take 1 tablet ( 40 mg) by oral route once daily hydrocodone-acetaminophen 7.5-325 mg oral tablet take 1 tablet by oral route every 6 hours as needed for pain levothyroxine 75 mcg oral tablet take 1 tablet (75 mcg) by oral route once daily Excedrin Migraine 250-250-65 mg oral tablet take 1 tablet by oral route Prozac 20 mg oral capsule take 1 capsule (20 mg) by oral route once daily in the evening lidocaine 5 % topical ointment 04/27/2017 apply to affected area(s) by topical route 1-4 times daily as needed for 14 days gabapentin 300 mg oral capsule 05/11/2017 take 1 capsule by oral route once a day (at bedtime) for 30 days for one week, then increase to tid Discontinued Name Start Date Discontinued Date SIG Comments Mobic 7.5 mg oral tablet 05/11/2017 take 1 tablet (7.5 mg) by oral route once daily Problem List Not available. Vital Signs Date Time BP-Sys(mm[Hg] BP-Tamela(mm[Hg]) HR(bpm) RR(rpm) Temp WT HT HC BMI BSA BMI Percentile O2 Sat(%) 05/11/2017 9:50:00 AM 120 mmHg 70 mmHg 70 bpm 98.5 F 213.375 lbs 98 % 04/27/2017 9:30:00 AM 122 mmHg 84 mmHg 76 bpm 18 rpm 97.8 F 213.125 lbs 62 in 38.9807 kg/m 2.0564 m 97 % Social History Name Description Comments non smoker Alcohol Use - Rare History of Procedures Date Ordered Description Order Status 04/27/2017 12:00 AM MRI BRAIN STEM W/O DYE Returned Results Summary Not available. History Of Immunizations Not available. History of Past Illness Name Date of Onset Comments Reflex sympathetic dystrophy Chronic pain of right upper extremity Fibromyalgia Plantar fascial fibromatosis Lateral epicondylitis left elbow Lateral epicondylitis of right elbow Dysphagia Apr 27 2017 9:36AM Facial numbness Apr 27 2017 9:36AM Allodynia Apr 27 2017 9:36AM Upper motor neuron lesion Apr 27 2017 9:36AM Right arm pain Apr 27 2017 9:36AM Dysphagia May 11 2017 9:55AM Facial numbness May 11 2017 9:55AM Allodynia May 11 2017 9:55AM Upper motor neuron lesion May 11 2017 9:55AM Right arm pain May 11 2017 9:55AM Neuropathic pain May 11 2017 9:55AM Payers Insurance Name Company Name Plan Name Plan Number Policy Number Policy Group Number Start Date Medicare Part B [employer] [place] [id number] N/A [facility] Plan of [id number] N/A History of Encounters Visit Date Visit Type Provider 05/11/2017 Office visit Sylvester Smith DO 04/27/2017 Office visit Sylvester Smith DO
--- OUTSIDE RECORDS SUMMARY | 2017-09-21 14:25 | XMS REPORT ---
Author Author JOE BAI [facility] Address [address] [place] [address] Care Team Providers Care Washing Machine Loader Name Role Phone JOE BAI Unavailable PROBLEMS Type Condition ICD9-CM Code [id number] Code Onset Dates Condition Status SNOMED Code Problem Right wrist pain M25.531 Active 83381218 Problem Adjustment disorder with anxiety F43.22 Active 10547091 Problem Anxiety F41.9 Active 14632231 Problem Hypothyroidism, unspecified type E03.9 Active 80430816 Problem Reflex sympathetic dystrophy G90.50 Active 41149345 Problem Fibromyalgia M79.7 Active 387625907 Problem Right elbow pain M25.521 Active 17208084 Problem Rosacea L71.9 Active 374724605 Problem Plantar wart of right foot B07.0 Active 93651736 Problem Arthritis M19.90 Active 8823952 Problem Venous insufficiency I87.2 Active 67415122 Problem Gastroesophageal reflux disease, esophagitis presence not specified K21.9 Active 876905600 Problem Reactive depression F32.9 Active 42201455 ALLERGIES No Information SOCIAL HISTORY Never Assessed [...]
--- OUTSIDE RECORDS SUMMARY | 2017-09-21 14:25 | XMS REPORT ---
Author Author JOE BAI Organization [facility] Address [address] [place] [address] Care Team Providers Care Block Breaker Name Role Phone JOE BAI Unavailable PROBLEMS Type Condition ICD9-CM Code [id number] Code Onset Dates Condition Status SNOMED Code Problem Right wrist pain M25.531 Active 96470151 Problem Adjustment disorder with anxiety F43.22 Active 06115774 Problem Anxiety F41.9 Active 14230274 Problem Hypothyroidism, unspecified type E03.9 Active 88689101 Problem Reflex sympathetic dystrophy G90.50 Active 02171709 Problem Fibromyalgia M79.7 Active 959662301 Problem Right elbow pain M25.521 Active 97216905 Problem Rosacea L71.9 Active 124623996 Problem Plantar wart of right foot B07.0 Active 50049790 Problem Arthritis M19.90 Active 7894979 Problem Venous insufficiency I87.2 Active 96582774 Problem Gastroesophageal reflux disease, esophagitis presence not specified K21.9 Active 711621129 Problem Reactive depression F32.9 Active 50359943 ALLERGIES No Information SOCIAL HISTORY Never Assessed [...]
--- OUTSIDE RECORDS SUMMARY | 2017-09-21 14:25 | XMS REPORT ---
Author Author JOE BAI [facility] Address [address] [place] [address] Care Team Providers Care Psychology Associate Name Role Phone JOE BAI Unavailable PROBLEMS Type Condition ICD9-CM Code [id number] Code Onset Dates Condition Status SNOMED Code Problem Right wrist pain M25.531 Active 75553773 Problem Adjustment disorder with anxiety F43.22 Active 23598394 Problem Anxiety F41.9 Active 12196349 Problem Hypothyroidism, unspecified type E03.9 Active 45507026 Problem Reflex sympathetic dystrophy G90.50 Active 23999658 Problem Fibromyalgia M79.7 Active 673027816 Problem Right elbow pain M25.521 Active 76808211 Problem Rosacea L71.9 Active 373808824 Problem Plantar wart of right foot B07.0 Active 34370996 Problem Arthritis M19.90 Active 9821794 Problem Venous insufficiency I87.2 Active 53398493 Problem Gastroesophageal reflux disease, esophagitis presence not specified K21.9 Active 079827882 Problem Reactive depression F32.9 Active 85408621 ALLERGIES No Information SOCIAL HISTORY Never Assessed PLAN OF CARE VITAL SIGNS MEDICATIONS Unknown Medications RESULTS No Results PROCEDURES No Known procedures [...]
--- OUTSIDE RECORDS SUMMARY | 2017-09-21 14:26 | XMS REPORT ---
Author Author JOE BAI Organization [facility] Address [address] [place] [address] Care Team Providers Care [place] Examiner Name Role Phone JOE BAI Unavailable PROBLEMS Type Condition ICD9-CM Code [id number] Code Onset Dates Condition Status SNOMED Code Problem Venous insufficiency I87.2 Active 09693619 Problem Reactive depression F32.9 Active 93973737 Problem Arthritis M19.90 Active 2876027 Problem Generalized anxiety disorder F41.1 Active 99687103 Problem Mild episode of recurrent major depressive disorder F33.0 Active 560592179 Problem Plantar wart of right foot B07.0 Active 27083816 Problem Gastroesophageal reflux disease, esophagitis presence not specified K21.9 Active 412661636 Problem Mixed hyperlipidemia E78.2 Active 921651415 Problem Rosacea L71.9 Active 965148532 Problem Hypothyroidism, unspecified type E03.9 Active 28386961 Problem Fibromyalgia M79.7 Active 193320530 Problem Right elbow pain M25.521 Active 29892673 Problem Reflex sympathetic dystrophy G90.50 Active 59829972 Problem Right wrist pain M25.531 Active 53888697 ALLERGIES No Information ENCOUNTERS Encounter Location Date Diagnosis [facility] [address], [place] [address] Sep, Medicare annual wellness visit, initial Z00.00 [facility] [address], [place] [address] Sep, [facility] [id number] [place] [address] 59183- 1690 21 Aug, 2017 [facility] [address] [address] 14 Aug, 2017 [facility] [id number] [place] [address] 27749- 0253 Aug, Generalized anxiety disorder F41.1 and Mild episode of recurrent major depressive disorder F33.0 [facility] [id number] [place] [address] 53277- 7724 Aug, Epigastric pain R10.13 ; Reflex sympathetic dystrophy G90.50 and Arthritis M19.90 [facility] [id number] [place] [address] 06077- 0981 Jul, Generalized anxiety disorder F41.1 and Mild episode of recurrent major depressive disorder F33.0 [facility] [id number] [place] [address] 93425- 4066 Jul, BMI 40.0-44.9, adult Z68.41 ; Mild episode of recurrent major depressive disorder F33.0 and Generalized anxiety disorder F41.1 [facility] [id number] [place] [address] 56938- 4854 Jul, Fibromyalgia M79.7 [facility] [facility] [address] [address] Jun, Mild episode of recurrent major depressive disorder F33.0 and Generalized anxiety disorder F41.1 [facility] [id number] [place] [address] 66546- 8669 Jun, Fibromyalgia M79.7 [facility] [id number] [place] [address] 40808- 0515 Jun, Generalized anxiety disorder F41.1 and Mild episode of recurrent major depressive disorder F33.0 [facility] [id number] [place] [address] 06150- 2336 Jun, Generalized anxiety disorder F41.1 and Mild episode of recurrent major depressive disorder F33.0 [facility] [id number] [place] [address] 67252- 9469 Jun, Generalized anxiety disorder F41.1 and Mild episode of recurrent major depressive disorder F33.0 [facility] [id number] [place] [address] 18896- 0512 Jun, [facility] [id number] [place] [address] 62489- 7060 Jun, Generalized anxiety disorder F41.1 and Mild episode of recurrent major depressive disorder F33.0 [facility] [id number] [place] [address] 62310- 9690 May, Fibromyalgia M79.7 [facility] [id number] [place] [address] 98099- 8391 May, Generalized anxiety disorder F41.1 and Mild episode of recurrent major depressive disorder F33.0 [facility] [id number] [place] [address] 17773- 9732 May, Mixed hyperlipidemia E78.2 ; Arthritis M19.90 ; Reactive depression F32.9 and Hypothyroidism, unspecified type E03.9 [facility] [id number] [place] [address] 10716- 3826 May, Arthritis M19.90 ; Reactive depression F32.9 ; Mixed hyperlipidemia E78.2 and Hypothyroidism, unspecified type E03.9 [facility] [id number] [place] [address] 71439- 6400 Apr, Fibromyalgia M79.7 [facility] [id number] [place] [address] 60543- 1536 Apr, [facility] [id number] [place] [address] 96452- 2536 Apr, Fibromyalgia M79.7 [facility] [id number] [place] [address] 60336- 3102 Mar, Fibromyalgia M79.7 [facility] [id number] [place] [address] 91316- 0623 Mar, [facility] [id number] [place] [address] 16998- 9735 Mar, Fibromyalgia M79.7 [facility] [id number] [place] [address] 56976- 1791 Mar, [facility] [id number] [place] [address] 37796- 8640 Feb, Reflex sympathetic dystrophy G90.50 ; Right arm pain M79.601 and Fibromyalgia M79.7 [facility] [id number] [place] [address] 29905- 7160 Feb, [facility] [address] 16990- 1582 Feb, Anxiety F41.9 [facility] [id number] [place] [address] 63272- 2671 Feb, Fibromyalgia M79.7 [facility] [id number] [place] [address] 50896- 0748 Feb, [facility] [id number] [place] [address] 09375- 9687 Feb, [facility] [id number] [place] [address] 81608- 5372 Jan, Temporal headache R51 [facility] [id number] [place] [address] 19865- 8355 Jan, Fibromyalgia M79.7 [facility] [id number] [place] [address] 24352- 7936 Dec, Fibromyalgia M79.7 [facility] [id number] [place] [address] 50468- 9271 Nov, Peroneal tendonitis, unspecified laterality M76.70 and Plantar fasciitis, bilateral M72.2 [facility] [id number] [place] [address] 64257- 5307 Nov, Fibromyalgia M79.7 [facility] [id number] [place] [address] 76542- 9246 October, Fibromyalgia M79.7 [facility] [address] 31770- [address] October, Plantar fasciitis, bilateral M72.2 and Peroneal tendonitis, unspecified laterality M76.70 [facility] [address] 05185- 2397 October, Fibromyalgia M79.7 [facility] [id number] [place] [address] 22101- 4161 Sep, Anxiety F41.9 [facility] [address] 59133- 8011 Aug, Anxiety F41.9 and Adjustment disorder with anxiety F43.22 [facility] [address] [address] Aug, Pain of left foot M79.672 [facility] [facility] [address] 18282- 4453 Aug, Pain of left foot M79.672 and Pain in right foot M79.671 [facility] [id number] [place] [address] 72523- 2195 Aug, Arthritis M19.90 ; Reactive depression F32.9 ; Fibromyalgia M79.7 ; Rosacea L71.9 ; Pain in right foot M79.671 and Pain of left foot M79.672 [facility] [id number] [place] [address] 79019- 6838 Aug, Anxiety F41.9 ; Adjustment disorder with anxiety F43.22 and Reactive depression F32.9 [facility] [id number] [place] [address] 44474- 8530 Aug, Right elbow pain M25.521 [facility] [address] 31488- 7534 Aug, Plantar wart of right foot B07.0 and Actinic keratosis L57.0 [facility] [id number] [place] [address] 22734- 2024 Aug, Fibromyalgia M79.7 [place] [id number] [place] [address] 45354- 5756 Jul, Arthritis M19.90 ; Hypothyroidism, unspecified type E03.9 ; Reactive depression F32.9 and Venous insufficiency I87.2 [facility] [id number] [place] [address] 78517- 1232 Jul, Gastroesophageal reflux disease, esophagitis presence not specified K21.9 [facility] [address] 32377- 7922 Jul, Reflex sympathetic dystrophy G90.50 [facility] [address] 92850- 1133 Jul, Anxiety F41.9 ; Adjustment disorder with anxiety F43.22 and Reactive depression F32.9 [facility] [address] 87730- 2844 Jul, [facility] [address] 70435- 4078 Jul, Right elbow pain M25.521 [facility] [facility] [address] 82103- 6607 Jun, Fibromyalgia M79.7 [facility] [id number] [place] [address] 24601- 5098 Jun, Anxiety F41.9 ; Adjustment disorder with anxiety F43.22 and Reactive depression F32.9 [facility] [id number] [place] [address] 14858- 5233 Jun, [facility] [address] 72966- 4971 Jun, Atypical chest pain R07.89 and Adjustment disorder with anxiety F43.22 [place] [address] [id number] 16 Jun, 2016 Chest pain, unspecified type R07.9 [facility] [id number] [place] [address] 50687- 4538 Jun, Fibromyalgia M79.7 [facility] [address] 92702- 3726 May, Anxiety F41.9 [facility] [address] 12336- 8950 May, [facility] [address] 04848- 2600 May, Right elbow pain M25.521 [facility] [address] 49347- 0980 Apr, Reflex sympathetic dystrophy G90.50 and Encounter for immunization Z23 [facility] [address] 53541- 8757 Apr, [facility] [address] 81705- 3487 Mar, [facility] [address] 68228- 7320 Feb, [facility] [address] 56070- 6709 Feb, [facility] [id number] [place] [address] 03583- 1720 Jan, [facility] [id number] [place] [address] 80633- 0610 Jan, Right elbow pain M25.521 and Right wrist pain M25.531 [facility] [id number] [place] [address] 12215- 1134 Jan, [facility] [address] 28937- 5158 Dec, Seborrheic keratoses L82.1 [facility] [id number] [place] [address] 55876- 8671 Dec, [facility] [facility] [address], [place] [address] Dec, [place] [id number] [place] [address] 70551- 3464 Dec, [facility] [id number] [place] [address] 17821- 9845 Dec, Fibromyalgia M79.7 and Hypothyroidism, unspecified type E03.9 [facility] [id number] [place] [address] 72814- 4696 Dec, Seborrheic keratoses L82.1 [facility] [id number] [place] [address] 26080- 3831 Dec, [facility] [id number] [place] [address] 35248- 9273 Dec, [facility] [id number] [place] [address] 32034- 0315 Nov, Sebaceous cyst L72.3 [facility] [place] [id number] [place] [address] 92101- 3954 October, Breast cancer screening Z12.39 [facility] [facility] [id number] [place] [address] 95061- 4297 October, Fibromyalgia M79.7 ; Hypothyroidism, unspecified type E03.9 and Reflex sympathetic dystrophy G90.50 [facility] [id number] [place] [address] 98932- 4688 October, Reflex sympathetic dystrophy G90.50 ; Fibromyalgia M79.7 and Hypothyroidism, unspecified type E03.9 IMMUNIZATIONS No Known Immunizations SOCIAL HISTORY Never Assessed REASON FOR VISIT Hydrocodone 11/26 PLAN OF CARE VITAL SIGNS MEDICATIONS Medication Instructions Dosage Frequency Start Date End Date Duration Status Hydrocodone-Acetaminophen 7.5-325 MG Orally 3 times a day 1 tablet 8h Nov, 28 days Active RESULTS No Results PROCEDURES No Known procedures INSTRUCTIONS MEDICATIONS ADMINISTERED No Known Medications MEDICAL (GENERAL) HISTORY Type Description Date Medical History Radiculopathy, site unspecified Medical History Fibromyalgia Medical History Plantar fascial fibromatosis Medical History Lateral epicondylitis, right elbow Medical History Lateral epicondylitis, left elbow Medical History 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
--- OUTSIDE RECORDS SUMMARY | 2017-09-21 14:26 | XMS REPORT ---
Author Author Sylvester Smith Organization [facility] Address [address] [place], [place] [address] Care Team Providers Care Ssn/Ssbn Weapons Equipment Operator Name Role Phone Sylvester Smith PCP Allergies and Adverse Reactions Name Reaction Notes PENICILLINS codeine sulfate Demerol Robaxin Plan of Treatment Planned Activity Comments Planned Date Planned Time Plan/Goal MRI BRAIN INC STEM W/O CONTRAST 04/27/2017 12:00 AM Medications Active Name Start Date Estimated Completion Date SIG Comments topiramate 200 mg oral tablet take 1 tablet (200 mg) by oral route 2 times per day Mobic 7.5 mg oral tablet take 1 tablet (7.5 mg) by oral route once daily orphenadrine citrate 100 mg oral tablet extended [...] times daily as needed for 14 days Problem List Not available. Vital Signs Date Time BP-Sys(mm[Hg] BP-Tamela(mm[Hg]) HR(bpm) RR(rpm) Temp WT HT HC BMI BSA BMI Percentile O2 Sat(%) 04/27/2017 9:30:00 AM 122 mmHg 84 mmHg 76 bpm 18 rpm 97.8 F 213.125 lbs 62 in 38.98 kg/m2 2.06 m2 97 % Social History Name Description Comments non smoker Alcohol Use - Rare History of Procedures Not available. Results Summary Not available. History Of Immunizations [...] Right arm pain Apr 27 2017 9:36AM Payers Insurance Name Company Name Plan Name Plan Number Policy Number Policy Group Number Start Date Medicare Part B Medicare Of [place] [id number] N/A [facility] Plan of [id number] N/A History of Encounters Visit Date Visit Type Provider 04/27/2017 Office visit Sylvester Smith DO
--- OUTSIDE RECORDS SUMMARY | 2017-09-21 14:26 | XMS REPORT ---
Author Author JOE BAI [facility] Address [address] [place] [address] Care Team Providers Care Counterintelligence/Humint Specialist Name Role Phone JOE BAI Unavailable PROBLEMS Type Condition ICD9-CM Code [id number] Code Onset Dates Condition Status SNOMED Code Problem Right wrist pain M25.531 Active 29929625 Problem Adjustment disorder with anxiety F43.22 Active 89826233 Problem Anxiety F41.9 Active 13555975 Problem Hypothyroidism, unspecified type E03.9 Active 15860455 Problem Reflex sympathetic dystrophy G90.50 Active 73258680 Problem Fibromyalgia M79.7 Active 380868016 Problem Right elbow pain M25.521 Active 76835336 Problem Rosacea L71.9 Active 558165337 Problem Plantar wart of right foot B07.0 Active 68452381 Problem Arthritis M19.90 Active 6688049 Problem Venous insufficiency I87.2 Active 63005749 Problem Gastroesophageal reflux disease, esophagitis presence not specified K21.9 Active 322837366 Problem Reactive depression F32.9 Active 27821651 ALLERGIES Substance Reaction Event Type Date Status Robaxin Unknown Drug Allergy Jul, Active Penicillin V Potassium Unknown Drug Allergy Jul, Active Demerol Unknown Drug Allergy Jul, Active Codeine Sulfate Unknown Drug Allergy Jul, Active SOCIAL HISTORY Never Assessed PLAN OF CARE Activity Details Follow Up 4 Weeks Reason: VITAL SIGNS Height 62 in 2016-08-10 Weight 206.4 lbs 2016-08-10 Temperature 98.9 degrees Fahrenheit 2016-08-10 Heart Rate 92 bpm 2016-08-10 Respiratory Rate 20 2016-08-10 BMI 37.75 kg/m2 2016-08-10 Blood pressure systolic 130 mmHg 2016-08-10 Blood pressure diastolic 83 mmHg 2016-08-10 MEDICATIONS Medication Instructions Dosage Frequency Start Date End Date Duration Status Abilify 10 MG Orally Once a day 1 tablet 24h Jun, 30 day(s) Active Pantoprazole Sodium 40 mg Orally Once a day 1 tablet 24h 30 days Active Prozac 20 mg Orally Once a day 2 capsule in the morning 24h Active Topiramate 200 mg Orally Once a day 2 tablets 24h Active Hydrocodone-Acetaminophen 7.5-325 MG Orally 3 times a day 1 tablet as needed 8h 07 Jul, 2016 Active Norflex 100 MG by oral route every 12 hrs 1 tablet 12h Active Mobic 7.5 MG Orally Once a day 1 tablet 24h Jul, October, 30 day(s) Active Synthroid 75 MCG Orally Once a day 1 tablet 24h Active RESULTS Name Result Date Reference Range [facility] 2016-08-10 Glucose, Serum 99 65-99 BUN 13 8-27 Creatinine, Serum 0.82 0.57-1.00 eGFR If NonAfricn Am 78 >59 eGFR If Africn Am 90 >59 BUN/Creatinine Ratio 16 11-26 Sodium, Serum 137 134-144 Potassium, Serum 4.2 3.5-5.2 Chloride, Serum 103 96-106 Carbon Dioxide, Total 19 18-29 Calcium, Serum 9.0 8.7-10.3 Protein, Total, Serum 6.5 6.0-8.5 Albumin, Serum 4.0 3.6-4.8 Globulin, Total 2.5 1.5-4.5 A/G Ratio 1.6 1.1-2.5 Bilirubin, Total <0.2 0.0-1.2 Alkaline Phosphatase, S 100 39-117 AST (SGOT) 22 0-40 ALT (SGPT) 10 0-32 PROCEDURES Procedure Date Ordered Result Body Site [facility] 2016 VENIPUNCT, ROUTINE* Aug 10, 2016 [facility] VISIT ESTABLISHED PATIENT Aug 10, 2016 IMMUNIZATIONS No Known Immunizations MEDICAL (GENERAL) [...] resection Hospitalization History surgeries Hospitalization History Chest [facility] 07/02/16
--- OUTSIDE RECORDS SUMMARY | 2017-09-21 14:26 | XMS REPORT ---
Author Author JOE BAI [facility] Address [address] [place] [address] Care Team Providers Care Trauma Therapist Name Role Phone JOE BAI Unavailable PROBLEMS Type Condition ICD9-CM Code [id number] Code Onset Dates Condition Status SNOMED Code Problem Right wrist pain M25.531 Active 65034099 Problem Adjustment disorder with anxiety F43.22 Active 85046387 Problem Anxiety F41.9 Active 86158834 Problem Hypothyroidism, unspecified type E03.9 Active 09621899 Problem Reflex sympathetic dystrophy G90.50 Active 26661394 Problem Fibromyalgia M79.7 Active 444767870 Problem Right elbow pain M25.521 Active 35687585 Problem Rosacea L71.9 Active 066713964 Problem Plantar wart of right foot B07.0 Active 83652250 Problem Arthritis M19.90 Active 7511835 Problem Venous insufficiency I87.2 Active 39321650 Problem Gastroesophageal reflux disease, esophagitis presence not specified K21.9 Active 454946313 Problem Reactive depression F32.9 Active 97028895 ALLERGIES No Known Allergies SOCIAL HISTORY No smoking Hx information available PLAN OF CARE VITAL SIGNS MEDICATIONS Medication Instructions Dosage Frequency Start Date End Date Duration Status Hydrocodone-Acetaminophen 7.5-325 MG Orally 3 times a day 1 tablet as needed 8h Jun, Active RESULTS No Results PROCEDURES No Known procedures IMMUNIZATIONS No Known Immunizations
--- OUTSIDE RECORDS SUMMARY | 2017-09-21 14:26 | XMS REPORT ---
Author Author JOE BAI [facility] Address [address] [place] [address] Care Team Providers Care Rn Ccu Name Role Phone JOE BAI Unavailable PROBLEMS Type Condition ICD9-CM Code [id number] Code Onset Dates Condition Status SNOMED Code Problem Right elbow pain M25.521 Active 66311408 Problem Adjustment disorder with anxiety F43.22 Active 33782073 Problem Anxiety F41.9 Active 80421953 Problem Hypothyroidism, unspecified type E03.9 Active 54422396 Problem Fibromyalgia M79.7 Active 736365177 Problem Reflex sympathetic dystrophy G90.50 Active 11901791 Problem Right wrist pain M25.531 Active 30304242 Problem Rosacea L71.9 Active 703273094 Problem Plantar wart of right foot B07.0 Active 00556076 Problem Arthritis M19.90 Active 8778688 Problem Venous insufficiency I87.2 Active 03567600 Problem Gastroesophageal reflux disease, esophagitis presence not specified K21.9 Active 251912292 Problem Reactive depression F32.9 Active 87113121 ALLERGIES No Known Allergies SOCIAL HISTORY No smoking Hx information available PLAN OF CARE VITAL SIGNS MEDICATIONS Medication Instructions Dosage Frequency Start Date End Date Duration Status Prozac 20 MG Orally Once a day 3 capsule in the morning 24h Active RESULTS No Results PROCEDURES No Known procedures IMMUNIZATIONS No Known Immunizations
--- OUTSIDE RECORDS SUMMARY | 2017-09-21 14:27 | XMS REPORT ---
Author Author JOE BAI [facility] Address [address] [place] [address] Care Team Providers Care Rib Puller Name Role Phone JOE BAI Unavailable PROBLEMS Type Condition ICD9-CM Code [id number] Code Onset Dates Condition Status SNOMED Code Problem Right wrist pain M25.531 Active 74812242 Problem Adjustment disorder with anxiety F43.22 Active 00992723 Problem Anxiety F41.9 Active 86580138 Problem Hypothyroidism, unspecified type E03.9 Active 89476137 Problem Reflex sympathetic dystrophy G90.50 Active 56251318 Problem Fibromyalgia M79.7 Active 289082450 Problem Right elbow pain M25.521 Active 35701810 Problem Rosacea L71.9 Active 077075964 Problem Plantar wart of right foot B07.0 Active 32045947 Problem Arthritis M19.90 Active 7907505 Problem Venous insufficiency I87.2 Active 44029431 Problem Gastroesophageal reflux disease, esophagitis presence not specified K21.9 Active 853263642 Problem Reactive depression F32.9 Active 32646784 ALLERGIES No Information SOCIAL HISTORY Never Assessed [...]
--- OUTSIDE RECORDS SUMMARY | 2017-09-21 14:27 | XMS REPORT ---
Author Author NAM LYLES [facility] Address [address] [place] [address] Care Team Providers Care Baker Chef Name Role Phone NAM LYLES Unavailable PROBLEMS Type Condition ICD9-CM Code ZMC38-BW Code Onset Dates Condition Status SNOMED Code Problem Right wrist pain M25.531 Active 19554705 Problem Adjustment disorder with anxiety F43.22 Active 57390413 Problem Anxiety F41.9 Active 65895337 Problem Hypothyroidism, unspecified type E03.9 Active 02099115 Problem Reflex sympathetic dystrophy G90.50 Active 22683037 Problem Fibromyalgia M79.7 Active 836515342 Problem Right elbow pain M25.521 Active 60585638 Problem Rosacea L71.9 Active 838920177 Problem Plantar wart of right foot B07.0 Active 55707562 Problem Arthritis M19.90 Active 0376225 Problem Venous insufficiency I87.2 Active 62059035 Problem Gastroesophageal reflux disease, esophagitis presence not specified K21.9 Active 739706127 Problem Reactive depression F32.9 Active 38726168 ALLERGIES Substance Reaction Event Type Date Status Robaxin Unknown Drug Allergy Aug, Active Penicillin V Potassium Unknown Drug Allergy Aug, Active Demerol Unknown Drug Allergy Aug, Active Codeine Sulfate Unknown Drug Allergy Aug, Active SOCIAL HISTORY Never Assessed PLAN OF CARE Activity Details Follow Up 4 Weeks Reason:adjustment disorder- anxiety VITAL SIGNS MEDICATIONS Unknown Medications RESULTS No Results PROCEDURES Procedure Date Ordered Result Body Site Psychotherapy, patient &/family, 45 minutes, established patient September 10, 2016 IMMUNIZATIONS No Known Immunizations MEDICAL [...]
--- OUTSIDE RECORDS SUMMARY | 2017-09-21 14:27 | XMS REPORT ---
Author Author Sylvester Smith Organization [facility] Address [address] [place], [place] [id number] Care Team Providers Care Front End Architect Name Role Phone Sylvester Smith PCP Allergies [...] 9:55AM Neuropathic pain May 11 2017 9:55AM Dysphagia May 23 2017 3:22PM Payers Insurance Name Company Name Plan Name Plan Number Policy Number Policy Group Number Start Date Medicare Part B [employer] [place] [id number] N/A [facility] Plan of [id number] N/A History of Encounters Visit Date Visit Type Provider 05/11/2017 Office visit Sylvester Smith DO 04/27/2017 Office visit Sylvester Smith DO
--- OUTSIDE RECORDS SUMMARY | 2017-09-21 14:27 | XMS REPORT ---
Author Author JOE BAI [facility] Address [address] [place] [address] Care Team Providers Care Radio Program Checker Name Role Phone JOE BAI Unavailable PROBLEMS Type Condition ICD9-CM Code [id number] Code Onset Dates Condition Status SNOMED Code Problem Right wrist pain M25.531 Active 95861670 Problem Adjustment disorder with anxiety F43.22 Active 55261699 Problem Anxiety F41.9 Active 74270493 Problem Hypothyroidism, unspecified type E03.9 Active 16790560 Problem Reflex sympathetic dystrophy G90.50 Active 56487882 Problem Fibromyalgia M79.7 Active 945141893 Problem Right elbow pain M25.521 Active 80565425 Problem Rosacea L71.9 Active 328311282 Problem Plantar wart of right foot B07.0 Active 35504299 Problem Arthritis M19.90 Active 8696157 Problem Venous insufficiency I87.2 Active 73165605 Problem Gastroesophageal reflux disease, esophagitis presence not specified K21.9 Active 697000390 Problem Reactive depression F32.9 Active 26373045 ALLERGIES Unknown Allergies SOCIAL HISTORY No smoking Hx information available PLAN OF CARE VITAL SIGNS MEDICATIONS Medication Instructions Dosage Frequency Start Date End Date Duration Status Hydrocodone-Acetaminophen 7.5-325 MG Orally 3 times a day 1 tablet as needed 8h Jul, Active RESULTS No Results PROCEDURES No Known procedures IMMUNIZATIONS No Known Immunizations
--- OUTSIDE RECORDS SUMMARY | 2017-09-21 14:27 | XMS REPORT ---
Author Author Sylvester Smith Organization [facility] Address [address] [place], [place] [address] Care Team Providers Care Metal Cans Supervisor Name Role Phone Sylvester Smith PCP Allergies [...] times daily as needed for 14 days Discontinued Name Start Date Discontinued Date SIG Comments Mobic 7.5 mg oral tablet 05/11/2017 take 1 tablet (7.5 mg) by oral route once daily gabapentin 300 mg oral capsule 05/11/2017 06/08/2017 take 1 capsule by oral route once a day (at bedtime) for 30 days for one week, then increase to tid Problem List Not available. Vital Signs Date Time BP-Sys(mm[Hg] BP-Tamela(mm[Hg]) HR(bpm) RR(rpm) Temp WT HT HC BMI BSA BMI Percentile O2 Sat(%) 06/08/2017 10:30:00 AM 130 mmHg 90 mmHg 65 bpm 97.6 F 223 lbs 97 % 05/11/2017 9:50:00 AM 120 mmHg 70 mmHg 70 bpm 98.5 F 213.375 lbs 98 % 04/27/2017 9:30:00 AM 122 mmHg 84 mmHg 76 bpm 18 rpm 97.8 F 213.125 lbs 62 in 38.9807 kg/m 2.0564 m 97 % Social History Name Description Comments Alcohol Use - Rare Tobacco Never smoker History of Procedures Date Ordered Description Order [...] 2017 9:55AM Dysphagia May 23 2017 3:22PM Allodynia Jun 08 2017 10:33AM Right arm pain Jun 08 2017 10:33AM Payers Insurance Name Company Name Plan Name Plan Number Policy Number Policy Group Number Start Date Medicare Part B [employer] Of [place] [id number] N/A [facility] Plan of [id number] N/A History of Encounters Visit Date Visit Type Provider 06/08/2017 Office visit Sylvester Smith DO 05/11/2017 Office visit Sylvester Smith DO 04/27/2017 Office visit Sylvester Smith DO
--- OUTSIDE RECORDS SUMMARY | 2017-09-21 14:27 | XMS REPORT ---
Author Author NAM LYLES [facility] Address [address] [place] [address] Care Team Providers Care Rating Clerk Name Role Phone RAFALNAM Unavailable PROBLEMS Type Condition ICD9-CM Code [id number] Code Onset Dates Condition Status SNOMED Code Problem Right wrist pain M25.531 Active 50119779 Problem Adjustment disorder with anxiety F43.22 Active 85702113 Problem Anxiety F41.9 Active 66583379 Problem Hypothyroidism, unspecified type E03.9 Active 82620024 Problem Reflex sympathetic dystrophy G90.50 Active 09487898 Problem Fibromyalgia M79.7 Active 698297064 Problem Right elbow pain M25.521 Active 11706749 Problem Rosacea L71.9 Active 376476658 Problem Plantar wart of right foot B07.0 Active 78209403 Problem Arthritis M19.90 Active 4543935 Problem Venous insufficiency I87.2 Active 75768489 Problem Gastroesophageal reflux disease, esophagitis presence not specified K21.9 Active 650411707 Problem Reactive depression F32.9 Active 49499880 ALLERGIES Substance Reaction Event Type Date Status Robaxin Unknown Drug Allergy Jul, Active Penicillin V Potassium Unknown Drug Allergy Jul, Active Demerol Unknown Drug Allergy Jul, Active Codeine Sulfate Unknown Drug Allergy Jul, Active SOCIAL HISTORY Never Assessed PLAN OF CARE Activity Details Follow Up 4 Weeks Reason:Anxiety, depression VITAL SIGNS MEDICATIONS No Known Medications RESULTS No Results PROCEDURES Procedure Date Ordered Result Body Site Psychotherapy, patient &/family, 45 minutes, established patient Aug 06, 2016 IMMUNIZATIONS No Known Immunizations MEDICAL (GENERAL) [...]
--- OUTSIDE RECORDS SUMMARY | 2017-09-21 14:28 | XMS REPORT | Continuity of Care Document ---
Author Author [facility] Organization [facility] Address Unknown Phone Unavailable Allergies Active Description Code Type Severity Reaction Onset Reported/Identified Relationship to Patient Clinical Status Yes meperidine [id number] Drug Allergy Moderate HIVES 07/24/2010 Yes Penicillins [id number] Drug Allergy Moderate HIVES 07/24/2010 Yes codeine [id number] Drug Allergy Mild PALPITATIONS 07/24/2010 Yes methocarbamol [id number] Drug Allergy Unknown HOSTILE/AGGRESS 07/02/2016 Yes baclofen [id number] Drug Allergy Unknown dizzy, nausea 09/07/2017 Yes divalproex sodium [id number] Drug Allergy Unknown N/A 09/07/2017 Yes metaxalone [id number] Drug Allergy Unknown "bad for me" 09/07/2017 Yes tizanidine [id number] Drug Allergy Unknown drowsy 09/07/2017 Medications There is no data. Problems Date Dx Coded Attending Type Code Diagnosis Diagnosed By 07/24/2010 Ot 784.0 HEADACHE 11/25/2015 JOE BAI MD Ot Z12.31 ENCNTR SCREEN MAMMOGRAM FOR MALIGNANT NE 11/25/2015 JOE BAI MD Ot Z12.31 ENCNTR SCREEN MAMMOGRAM FOR MALIGNANT NE 11/27/2015 JOE BAI MD Ot Z12.31 ENCNTR SCREEN MAMMOGRAM FOR MALIGNANT NE 11/27/2015 JOE BAI MD Ot Z12.31 ENCNTR SCREEN MAMMOGRAM FOR MALIGNANT NE 12/09/2015 JOE BAI MD Ot Z12.31 ENCNTR SCREEN MAMMOGRAM FOR MALIGNANT NE 12/09/2015 JOE BAI MD Ot Z12.31 ENCNTR SCREEN MAMMOGRAM FOR MALIGNANT NE 12/26/2015 JOE BAI MD Ot Z12.31 ENCNTR SCREEN MAMMOGRAM FOR MALIGNANT NE 01/15/2016 JOE BAI MD Ot Z12.31 ENCNTR SCREEN MAMMOGRAM FOR MALIGNANT NE 01/15/2016 JOE BAI MD Ot Z12.31 ENCNTR SCREEN MAMMOGRAM FOR MALIGNANT NE 07/02/2016 JOE BAI MD Ot Z12.31 ENCNTR SCREEN MAMMOGRAM FOR MALIGNANT NE 07/03/2016 LEONID HIRSCH MD Ot E03.9 HYPOTHYROIDISM, UNSPECIFIED 07/03/2016 LEONID HIRSCH MD Ot K21.9 GASTRO-ESOPHAGEAL REFLUX DISEASE WITHOUT 07/03/2016 LEONID HIRSCH MD Ot M79.7 FIBROMYALGIA 07/03/2016 LEONID HIRSCH MD Ot R07.9 CHEST PAIN, UNSPECIFIED 07/03/2016 LEONID HIRSCH MD Ot Z87.891 PERSONAL HISTORY OF NICOTINE DEPENDENCE 07/08/2016 LEONID HIRSCH MD Ot R07.9 CHEST PAIN, UNSPECIFIED 07/08/2016 LEONID HIRSCH MD Ot R07.9 CHEST PAIN, UNSPECIFIED 07/30/2016 LEONID HIRSCH MD Ot R07.9 CHEST PAIN, UNSPECIFIED 08/10/2016 LEONID HIRSCH MD Ot R07.9 CHEST PAIN, UNSPECIFIED 01/29/2017 ARUNA MARTINEZ MD Ot E03.9 HYPOTHYROIDISM, UNSPECIFIED 01/29/2017 ARUNA MARTINEZ MD Ot F32.9 MAJOR DEPRESSIVE DISORDER, SINGLE EPISOD 01/29/2017 ARUNA MARTINEZ MD Ot G43.909 MIGRAINE, UNSP, NOT INTRACTABLE, WITHOUT 01/29/2017 ARUNA MARTINEZ MD Ot G89.29 OTHER CHRONIC PAIN 01/29/2017 ARUNA MARTINEZ MD Ot K21.9 GASTRO-ESOPHAGEAL REFLUX DISEASE WITHOUT 01/29/2017 ARUNA MARTINEZ MD Ot M54.9 DORSALGIA, UNSPECIFIED 01/29/2017 ARUNA MARTINEZ MD Ot N39.0 URINARY TRACT INFECTION, SITE NOT SPECIF 01/29/2017 ARUNA MARTINEZ MD Ot R51 HEADACHE 01/29/2017 ARUNA MARTINEZ MD Ot Z82.49 FAMILY HX OF ISCHEM HEART DIS AND OTH DI 01/29/2017 ARUNA MARTINEZ MD Ot Z87.891 PERSONAL HISTORY OF NICOTINE DEPENDENCE 01/29/2017 ARUNA MARTINEZ MD Ot Z90.49 ACQUIRED ABSENCE OF OTHER SPECIFIED PART 03/18/2017 BHUMIKA VELA, JOE [place] Ot M79.601 PAIN IN RIGHT ARM 04/05/2017 FROYLAN VELA, JOSE MANUEL Lopes Ot M79.621 PAIN IN RIGHT UPPER ARM 04/05/2017 FROYLAN VELA, JOSE MANUEL Lopes Ot R22.31 LOCALIZED SWELLING, MASS AND LUMP, RIGHT 04/08/2017 BHUMIKA VELA, JOE [place] Ot M79.601 PAIN IN RIGHT ARM 2017 BHUMIKA VELA, JOE [place] Ot M79.601 PAIN IN RIGHT ARM 04/27/2017 FROYLAN VELA, JOSE MANUEL Lopes Ot M79.621 PAIN IN RIGHT UPPER ARM 04/27/2017 FROYLAN VELA, JOSE MANUEL Lopes Ot R22.31 LOCALIZED SWELLING, MASS AND LUMP, RIGHT 05/05/2017 FROYLAN VELA, JOSE MANUEL Lopes Ot M79.621 PAIN IN RIGHT UPPER ARM 05/05/2017 FROYLAN VELA, JOSE MANUEL Lopes Ot R22.31 LOCALIZED SWELLING, MASS AND LUMP, RIGHT 05/24/2017 RIVERS DO, SYLVESTER Ot M25.511 PAIN IN RIGHT SHOULDER 05/24/2017 RIVERS DO, SYLVESTER Ot M79.2 NEURALGIA AND NEURITIS, UNSPECIFIED 05/24/2017 RIVERS DO, SYLVESTER Ot R13.10 DYSPHAGIA, UNSPECIFIED 05/24/2017 RIVERS DO, SYLVESTER Ot R20.8 OTHER DISTURBANCES OF SKIN SENSATION 06/14/2017 RIVERS DO, SYLVESTER Ot M25.511 PAIN IN RIGHT SHOULDER 06/14/2017 RIVERS DO, SYLVESTER Ot M79.2 NEURALGIA AND NEURITIS, UNSPECIFIED 06/14/2017 RIVERS DO, SYLVESTER Ot R13.10 DYSPHAGIA, UNSPECIFIED 06/14/2017 RIVERS DO, SYLVESTER Ot R20.8 OTHER DISTURBANCES OF SKIN SENSATION 06/29/2017 RIVERS DO, SYLVESTER Ot M25.511 PAIN IN RIGHT SHOULDER 06/29/2017 RIVERS DO, SYLVESTER Ot M79.2 NEURALGIA AND NEURITIS, UNSPECIFIED 06/29/2017 RIVERS DO, SYLVESTER Ot R13.10 DYSPHAGIA, UNSPECIFIED 06/29/2017 RIVERS DO, SYLVESTER Ot R20.8 OTHER DISTURBANCES OF SKIN SENSATION 06/30/2017 RIVERS DO, SYLVESTER Ot R13.10 DYSPHAGIA, UNSPECIFIED 07/12/2017 RIVERS DO, SYLVESTER Ot R13.10 DYSPHAGIA, UNSPECIFIED 09/09/2017 GREY MCKEON APRN Ot E03.9 HYPOTHYROIDISM, UNSPECIFIED 09/09/2017 GREY MCKEON APRN Ot F32.9 MAJOR DEPRESSIVE DISORDER, SINGLE EPISOD 09/09/2017 GREY MCKEON APRN Ot K21.9 GASTRO-ESOPHAGEAL REFLUX DISEASE WITHOUT 09/09/2017 GREY MCKEON APRN Ot N39.0 URINARY TRACT INFECTION, SITE NOT SPECIF 09/09/2017 GREY MCKEON APRN Ot R51 HEADACHE 09/09/2017 GREY MCKEON APRN Ot Z87.19 PERSONAL HISTORY OF OTHER DISEASES OF TH 09/09/2017 GREY MCKEON APRN Ot Z87.59 PERSONAL HISTORY OF COMP OF PREG, CHLDBR 09/09/2017 GREY MCKEON APRN Ot Z88.0 ALLERGY STATUS TO PENICILLIN 09/09/2017 GREY MCKEON APRN Ot Z88.1 ALLERGY STATUS TO OTHER ANTIBIOTIC AGENT 09/09/2017 GREY MCKEON APRN Ot Z88.5 ALLERGY STATUS TO NARCOTIC AGENT STATUS 09/09/2017 GREY MCKEON APRN Ot Z88.6 ALLERGY STATUS TO ANALGESIC AGENT STATUS 09/09/2017 GREY MCKEON APRN Ot Z90.49 ACQUIRED ABSENCE OF OTHER SPECIFIED PART 09/09/2017 GREY MCKEON APRN Ot Z90.89 ACQUIRED ABSENCE OF OTHER ORGANS Procedures There is no data. Results Test Result Range Complete blood count (CBC) with automated white blood cell (WBC) differential - 07/02/16 21:52 Blood leukocytes automated count (number/volume) 10.2 10*3/uL 4.3-11.0 Blood erythrocytes automated count (number/volume) 4.25 10*6/uL 4.35-5.85 Venous blood hemoglobin measurement (mass/volume) 13.2 g/dL 11.5-16.0 Blood hematocrit (volume fraction) 39 % 35-52 Automated erythrocyte mean corpuscular volume 93 [foz_us] 80-99 Automated erythrocyte mean corpuscular hemoglobin (mass per erythrocyte) 31 pg 25-34 Automated erythrocyte mean corpuscular hemoglobin concentration measurement ( mass/volume) 34 g/dL 32-36 Automated erythrocyte distribution width ratio 12.7 % 10.0-14.5 Automated blood platelet count (count/volume) 350 10*3/uL 130-400 Automated blood platelet mean volume measurement 8.8 [foz_us] 7.4-10.4 Automated blood neutrophils/100 leukocytes 42 % 42-75 Automated blood lymphocytes/100 leukocytes 44 % 12-44 Blood monocytes/100 leukocytes 11 % 0-12 Automated blood eosinophils/100 leukocytes 2 % 0-10 Automated blood basophils/100 leukocytes 0 % 0-10 Blood neutrophils automated count (number/volume) 4.3 10*3 1.8-7.8 Blood lymphocytes automated count (number/volume) 4.5 10*3 1.0-4.0 Blood monocytes automated count (number/volume) 1.2 10*3 0.0-1.0 Automated eosinophil count 0.2 10*3/uL 0.0-0.3 Automated blood basophil count (count/volume) 0.0 10*3/uL 0.0-0.1 PT panel in platelet poor plasma by coagulation assay - 07/02/16 21:52 Prothrombin time (PT) in platelet poor plasma by coagulation assay 12.9 s 12.2-14.7 INR in platelet poor plasma or blood by coagulation assay 1.0 0.8-1.4 Activated partial thromboplastin time (aPTT) in platelet poor plasma bycoagulation assay - 07/02/16 21:52 Activated partial thromboplastin time (aPTT) in platelet poor plasma bycoagulation assay 35 s 24-35 Comprehensive metabolic panel - 07/02/16 21:52 Serum or plasma sodium measurement (moles/volume) 136 mmol/L 135-145 Serum or plasma potassium measurement (moles/volume) 3.4 mmol/L 3.6-5.0 Serum or plasma chloride measurement (moles/volume) 107 mmol/L 98-107 Carbon dioxide 17 mmol/L 21-32 Serum or plasma anion gap determination (moles/volume) 12 mmol/L 5-14 Serum or plasma urea nitrogen measurement (mass/volume) 14 mg/dL 7-18 Serum or plasma creatinine measurement (mass/volume) 0.83 mg/dL 0.60-1.30 Serum or plasma urea nitrogen/creatinine mass ratio 17 NRG Serum or plasma creatinine measurement with calculation of estimated glomerular filtration rate > NRG Serum or plasma glucose measurement (mass/volume) 105 mg/dL 70-105 Serum or plasma calcium measurement (mass/volume) 9.3 mg/dL 8.5-10.1 Serum or plasma total bilirubin measurement (mass/volume) 0.2 mg/dL 0.1-1.0 Serum or plasma alkaline phosphatase measurement (enzymatic activity/volume) 92 U/L 40-136 Serum or plasma aspartate aminotransferase measurement (enzymatic activity/ volume) 20 U/L 5-34 Serum or plasma alanine aminotransferase measurement (enzymatic activity/volume ) 13 U/L 0-55 Serum or plasma protein measurement (mass/volume) 7.4 g/dL 6.4-8.2 Serum or plasma albumin measurement (mass/volume) 4.2 g/dL 3.2-4.5 Serum or plasma creatine kinase measurement (enzymatic activity/volume) - 07/02 21:52 Serum or plasma creatine kinase measurement (enzymatic activity/volume) 89 U/L 29-168 Serum or plasma creatine kinase MB measurement (enzymatic activity/volume) - 21:52 Serum or plasma creatine kinase MB measurement (enzymatic activity/volume) 1.4 ng/mL <6.6 Serum or plasma troponin i.cardiac measurement (mass/volume) - 07/02/16 21:52 Serum or plasma troponin i.cardiac measurement (mass/volume) < ng/ mL <0.30 Serum or plasma amylase measurement (enzymatic activity/volume) - 07/02/16 21: 52 Serum or plasma amylase measurement (enzymatic activity/volume) 67 U /L 25-125 Lipase - 07/02/16 21:52 Lipase 45 U/L 8-78 Serum or plasma lithium measurement (moles/volume) - 07/02/16 21:52 BNP level < pg/mL <100.0 Complete blood count (CBC) with automated white blood cell (WBC) differential - 07/03/16 03:48 Blood leukocytes automated count (number/volume) 8.1 10*3/uL 4.3-11.0 Blood erythrocytes automated count (number/volume) 3.91 10*6/uL 4.35-5.85 Venous blood hemoglobin measurement (mass/volume) 12.2 g/dL 11.5-16.0 Blood hematocrit (volume fraction) 36 % 35-52 Automated erythrocyte mean corpuscular volume 93 [foz_us] 80-99 Automated erythrocyte mean corpuscular hemoglobin (mass per erythrocyte) 31 pg 25-34 Automated erythrocyte mean corpuscular hemoglobin concentration measurement ( mass/volume) 34 g/dL 32-36 Automated erythrocyte distribution width ratio 12.7 % 10.0-14.5 Automated blood platelet count (count/volume) 317 10*3/uL 130-400 Automated blood platelet mean volume measurement 9.2 [foz_us] 7.4-10.4 Automated blood neutrophils/100 leukocytes 47 % 42-75 Automated blood lymphocytes/100 leukocytes 39 % 12-44 Blood monocytes/100 leukocytes 12 % 0-12 Automated blood eosinophils/100 leukocytes 2 % 0-10 Automated blood basophils/100 leukocytes 0 % 0-10 Blood neutrophils automated count (number/volume) 3.8 10*3 1.8-7.8 Blood lymphocytes automated count (number/volume) 3.2 10*3 1.0-4.0 Blood monocytes automated count (number/volume) 0.9 10*3 0.0-1.0 Automated eosinophil count 0.2 10*3/uL 0.0-0.3 Automated blood basophil count (count/volume) 0.0 10*3/uL 0.0-0.1 Comprehensive metabolic panel - 07/03/16 03:48 Serum or plasma sodium measurement (moles/volume) 137 mmol/L 135-145 Serum or plasma potassium measurement (moles/volume) 4.0 mmol/L 3.6-5.0 Serum or plasma chloride measurement (moles/volume) 109 mmol/L 98-107 Carbon dioxide 17 mmol/L 21-32 Serum or plasma anion gap determination (moles/volume) 11 mmol/L 5-14 Serum or plasma urea nitrogen measurement (mass/volume) 15 mg/dL 7-18 Serum or plasma creatinine measurement (mass/volume) 0.71 mg/dL 0.60-1.30 Serum or plasma urea nitrogen/creatinine mass ratio 21 NRG Serum or plasma creatinine measurement with calculation of estimated glomerular filtration rate > NRG Serum or plasma glucose measurement (mass/volume) 103 mg/dL 70-105 Serum or plasma calcium measurement (mass/volume) 9.0 mg/dL 8.5-10.1 Serum or plasma total bilirubin measurement (mass/volume) 0.3 mg/dL 0.1-1.0 Serum or plasma alkaline phosphatase measurement (enzymatic activity/volume) 88 U/L 40-136 Serum or plasma aspartate aminotransferase measurement (enzymatic activity/ volume) 19 U/L 5-34 Serum or plasma alanine aminotransferase measurement (enzymatic activity/volume ) 10 U/L 0-55 Serum or plasma protein measurement (mass/volume) 6.8 g/dL 6.4-8.2 Serum or plasma albumin measurement (mass/volume) 3.8 g/dL 3.2-4.5 Serum or plasma phosphate measurement (mass/volume) - 07/03/16 03:48 Serum or plasma phosphate measurement (mass/volume) 4.1 mg/dL 2.3-4.7 Magnesium - 07/03/16 03:48 Magnesium 2.1 mg/dL 1.8-2.4 Serum or plasma creatine kinase measurement (enzymatic activity/volume) - 07/03 03:48 Serum or plasma creatine kinase measurement (enzymatic activity/volume) 74 U/L 29-168 Serum or plasma troponin i.cardiac measurement (mass/volume) - 07/03/16 03:48 Serum or plasma troponin i.cardiac measurement (mass/volume) < ng/ mL <0.30 Myoglobin, serum - 07/03/16 03:48 Myoglobin, serum 24.8 ng/mL 10.0-92.0 Lipid 1996 panel - 07/03/16 03:48 Serum or plasma triglyceride measurement (mass/volume) 90 mg/dL <150 Serum or plasma cholesterol measurement (mass/volume) 194 mg/dL < 200 Serum or plasma cholesterol in HDL measurement (mass/volume) 51 mg/ dL 40-60 Cholesterol in LDL [mass/volume] in serum or plasma by direct assay 126 mg/dL 1-129 Serum or plasma cholesterol in VLDL measurement (mass/volume) 18 mg/ dL 5-40 Complete urinalysis with reflex to culture - 07/03/16 05:00 Urine color determination YELLOW NRG Urine clarity determination CLEAR NRG Urine pH measurement by test strip 6 5-9 Specific gravity of urine by test strip 1.020 1.016- 1.022 Urine protein assay by test strip, semi-quantitative NEGATIVE NEGATIVE Urine glucose detection by automated test strip NEGATIVE NEGATIVE Erythrocytes detection in urine sediment by light microscopy NEGATIVE NEGATIVE Urine ketones detection by automated test strip NEGATIVE NEGATIVE Urine nitrite detection by test strip POSITIVE NEGATIVE Urine total bilirubin detection by test strip NEGATIVE NEGATIVE Urine urobilinogen measurement by automated test strip (mass/volume) NORMAL NORMAL Urine leukocyte esterase detection by dipstick 2+ NEGATIVE Automated urine sediment erythrocyte count by microscopy (number/high power field) NONE NRG Automated urine sediment leukocyte count by microscopy (number/high power field ) [HPF] NRG Bacteria detection in urine sediment by light microscopy LARGE NRG Squamous epithelial cells detection in urine sediment by light microscopy 2-5 NRG Crystals detection in urine sediment by light microscopy NONE NRG Casts detection in urine sediment by light microscopy NONE NRG Mucus detection in urine sediment by light microscopy NEGATIVE NRG Complete urinalysis with reflex to culture YES NRG Bacterial urine culture - 07/03/16 05:00 Bacterial urine culture [id number] NRG COLONY COUNT 10,000/ML - 100,000/ML NRG FTX;REPORTABLE SEE COMMENT NR URINE CULTURE RESULTS PLUS [facility] Bacterial susceptibility panel - 07/03/16 05:00 Gentamicin susceptibility test by minimum inhibitory concentration < = NRG Trimethoprim/sulfamethoxazole susceptibility test by minimum inhibitoryconcentration <= NRG Ampicillin susceptibility test by minimum inhibitory concentration R NRG Tobramycin susceptibility test by minimum inhibitory concentration < = NRG Cefazolin susceptibility test by minimum inhibitory concentration < = NRG Ceftriaxone susceptibility test by minimum inhibitory concentration <= NRG Ampicillin/sulbactam susceptibility test by minimum inhibitory concentration 4 NRG Piperacillin/tazobactam susceptibility test by minimum inhibitory concentration <= NRG Ciprofloxacin susceptibility test by minimum inhibitory concentration <= NRG Meropenem susceptibility test by minimum inhibitory concentration < = NRG Nitrofurantoin susceptibility test by minimum inhibitory concentration <= NRG Aztreonam susceptibility test by minimum inhibitory concentration < = NRG Extended spectrum beta lactamase (ESBL) producing bacteria susceptibility test by minimum inhibitory concentration - [facility] Comp. Metabolic Panel (14) - 08/10/16 11:25 Glucose, Serum 99 mg/dL 65-99 BUN 13 mg/dL 8-27 Creatinine, Serum 0.82 mg/dL 0.57-1.00 eGFR If NonAfricn Am 78 mL/min/1.73 >59 eGFR If Africn Am 90 mL/min/1.73 >59 BUN/Creatinine Ratio 16 11-26 Sodium, Serum 137 mmol/L 134-144 Potassium, Serum 4.2 mmol/L 3.5-5.2 Chloride, Serum 103 mmol/L 96-106 Carbon Dioxide, Total 19 mmol/L 18-29 Calcium, Serum 9.0 mg/dL 8.7-10.3 Protein, Total, Serum 6.5 g/dL 6.0-8.5 Albumin, Serum 4.0 g/dL 3.6-4.8 Globulin, Total 2.5 g/dL 1.5-4.5 A/G Ratio 1.6 1.1-2.5 Bilirubin, Total <0.2 mg/dL 0.0-1.2 Alkaline Phosphatase, S 100 IU/L 39-117 AST (SGOT) 22 IU/L 0-40 ALT (SGPT) 10 IU/L 0-32 TSH - 08/10/16 11:25 TSH 0.881 uIU/mL 0.450-4.500 Sedimentation Rate-[facility] - 01/28/17 14:03 Sedimentation Rate-[facility] 38 mm/hr 0-40 Complete blood count (CBC) with automated white blood cell (WBC) differential - 01/29/17 16:39 Blood leukocytes automated count (number/volume) 9.5 10*3/uL 4.3-11.0 Blood erythrocytes automated count (number/volume) 3.91 10*6/uL 4.35-5.85 Venous blood hemoglobin measurement (mass/volume) 12.0 g/dL 11.5-16.0 Blood hematocrit (volume fraction) 36 % 35-52 Automated erythrocyte mean corpuscular volume 92 [foz_us] 80-99 Automated erythrocyte mean corpuscular hemoglobin (mass per erythrocyte) 31 pg 25-34 Automated erythrocyte mean corpuscular hemoglobin concentration measurement ( mass/volume) 33 g/dL 32-36 Automated erythrocyte distribution width ratio 13.2 % 10.0-14.5 Automated blood platelet count (count/volume) 297 10*3/uL 130-400 Automated blood platelet mean volume measurement 9.3 [foz_us] 7.4-10.4 Automated blood neutrophils/100 leukocytes 52 % 42-75 Automated blood lymphocytes/100 leukocytes 34 % 12-44 Blood monocytes/100 leukocytes 11 % 0-12 Automated blood eosinophils/100 leukocytes 4 % 0-10 Automated blood basophils/100 leukocytes 0 % 0-10 Blood neutrophils automated count (number/volume) 4.9 10*3 1.8-7.8 Blood lymphocytes automated count (number/volume) 3.2 10*3 1.0-4.0 Blood monocytes automated count (number/volume) 1.0 10*3 0.0-1.0 Automated eosinophil count 0.4 10*3/uL 0.0-0.3 Automated blood basophil count (count/volume) 0.0 10*3/uL 0.0-0.1 Erythrocyte sedimentation rate by westergren method - 01/29/17 16:39 Erythrocyte sedimentation rate by westergren method 31 mm 0-30 Comprehensive metabolic panel - 01/29/17 16:39 Serum or plasma sodium measurement (moles/volume) 134 mmol/L 135-145 Serum or plasma potassium measurement (moles/volume) 3.7 mmol/L 3.6-5.0 Serum or plasma chloride measurement (moles/volume) 106 mmol/L 98-107 Carbon dioxide 18 mmol/L 21-32 Serum or plasma anion gap determination (moles/volume) 10 mmol/L 5-14 Serum or plasma urea nitrogen measurement (mass/volume) 13 mg/dL 7-18 Serum or plasma creatinine measurement (mass/volume) 0.75 mg/dL 0.60-1.30 Serum or plasma urea nitrogen/creatinine mass ratio 17 NRG Serum or plasma creatinine measurement with calculation of estimated glomerular filtration rate > NRG Serum or plasma glucose measurement (mass/volume) 93 mg/dL 70-105 Serum or plasma calcium measurement (mass/volume) 9.1 mg/dL 8.5-10.1 Serum or plasma total bilirubin measurement (mass/volume) 0.3 mg/dL 0.1-1.0 Serum or plasma alkaline phosphatase measurement (enzymatic activity/volume) 95 U/L 40-136 Serum or plasma aspartate aminotransferase measurement (enzymatic activity/ volume) 18 U/L 5-34 Serum or plasma alanine aminotransferase measurement (enzymatic activity/volume ) 9 U/L 0-55 Serum or plasma protein measurement (mass/volume) 6.8 g/dL 6.4-8.2 Serum or plasma albumin measurement (mass/volume) 3.8 g/dL 3.2-4.5 Serum or plasma C reactive protein measurement (mass/volume) - 01/29/17 16:39 Serum or plasma C reactive protein measurement (mass/volume) 1.03 mg /dL 0.00-0.50 Complete urinalysis with reflex to culture - 01/29/17 16:40 Urine color determination YELLOW NRG Urine clarity determination CLEAR NRG Urine pH measurement by test strip 7 5-9 Specific gravity of urine by test strip 1.015 1.016- 1.022 Urine protein assay by test strip, semi-quantitative NEGATIVE NEGATIVE Urine glucose detection by automated test strip NEGATIVE NEGATIVE Erythrocytes detection in urine sediment by light microscopy NEGATIVE NEGATIVE Urine ketones detection by automated test strip NEGATIVE NEGATIVE Urine nitrite detection by test strip POSITIVE NEGATIVE Urine total bilirubin detection by test strip NEGATIVE NEGATIVE Urine urobilinogen measurement by automated test strip (mass/volume) NORMAL NORMAL Urine leukocyte esterase detection by dipstick 3+ NEGATIVE Automated urine sediment erythrocyte count by microscopy (number/high power field) NONE NRG Automated urine sediment leukocyte count by microscopy (number/high power field ) [HPF] NRG Bacteria detection in urine sediment by light microscopy LARGE NRG Squamous epithelial cells detection in urine sediment by light microscopy 2-5 NRG Crystals detection in urine sediment by light microscopy NONE NRG Casts detection in urine sediment by light microscopy NONE NRG Mucus detection in urine sediment by light microscopy NEGATIVE NRG Complete urinalysis with reflex to culture YES NRG Bacterial urine culture - 01/29/17 16:40 Bacterial urine culture [id number] NRG COLONY COUNT 10,000/ML - 100,000/ML NRG FTX;REPORTABLE SENSITIVITY REPORTED 01/30 15:00 [facility] Bacterial susceptibility panel - 01/29/17 16:40 Gentamicin susceptibility test by minimum inhibitory concentration < = NRG Trimethoprim/sulfamethoxazole susceptibility test by minimum inhibitoryconcentration >= NRG Ampicillin susceptibility test by minimum inhibitory concentration < = NRG Tobramycin susceptibility test by minimum inhibitory concentration < = NRG Cefazolin susceptibility test by minimum inhibitory concentration < = NRG Ceftriaxone susceptibility test by minimum inhibitory concentration <= NRG Ampicillin/sulbactam susceptibility test by minimum inhibitory concentration <= NRG Piperacillin/tazobactam susceptibility test by minimum inhibitory concentration <= NRG Ciprofloxacin susceptibility test by minimum inhibitory concentration <= NRG Meropenem susceptibility test by minimum inhibitory concentration < = NRG Nitrofurantoin susceptibility test by minimum inhibitory concentration <= NRG Aztreonam susceptibility test by minimum inhibitory concentration < = NRG Extended spectrum beta lactamase (ESBL) producing bacteria susceptibility test by minimum inhibitory concentration - [facility] [id number] - 04/04/17 18:15 Serum or plasma urea nitrogen measurement (mass/volume) 12 mg/dL 7-18 Serum or plasma creatinine measurement (mass/volume) 0.82 mg/dL 0.60-1.30 Serum or plasma urea nitrogen/creatinine mass ratio 15 NRG Serum or plasma creatinine measurement with calculation of estimated glomerular filtration rate > [facility] LIPID PANEL - 06/01/17 09:23 CHOLESTEROL, TOTAL 221 mg/dL <200 HDL CHOLESTEROL 61 mg/dL >50 TRIGLYCERIDES 165 mg/dL <150 LDL-CHOLESTEROL 130 mg/dL (calc) NRG CHOL/HDLC RATIO 3.6 (calc) <5.0 NON HDL CHOLESTEROL 160 mg/dL (calc) <130 Complete blood count (CBC) with automated white blood cell (WBC) differential - 09/07/17 19:30 Blood leukocytes automated count (number/volume) 9.6 10*3/uL 4.3-11.0 Blood erythrocytes automated count (number/volume) 4.04 10*6/uL 4.35-5.85 Venous blood hemoglobin measurement (mass/volume) 12.7 g/dL 11.5-16.0 Blood hematocrit (volume fraction) 38 % 35-52 Automated erythrocyte mean corpuscular volume 95 [foz_us] 80-99 Automated erythrocyte mean corpuscular hemoglobin (mass per erythrocyte) 31 pg 25-34 Automated erythrocyte mean corpuscular hemoglobin concentration measurement ( mass/volume) 33 g/dL 32-36 Automated erythrocyte distribution width ratio 12.8 % 10.0-14.5 Automated blood platelet count (count/volume) 299 10*3/uL 130-400 Automated blood platelet mean volume measurement 9.5 [foz_us] 7.4-10.4 Automated blood neutrophils/100 leukocytes 46 % 42-75 Automated blood lymphocytes/100 leukocytes 40 % 12-44 Blood monocytes/100 leukocytes 11 % 0-12 Automated blood eosinophils/100 leukocytes 3 % 0-10 Automated blood basophils/100 leukocytes 0 % 0-10 Blood neutrophils automated count (number/volume) 4.4 10*3 1.8-7.8 Blood lymphocytes automated count (number/volume) 3.8 10*3 1.0-4.0 Blood monocytes automated count (number/volume) 1.0 10*3 0.0-1.0 Automated eosinophil count 0.3 10*3/uL 0.0-0.3 Automated blood basophil count (count/volume) 0.0 10*3/uL 0.0-0.1 Comprehensive metabolic panel - 09/07/17 19:30 Serum or plasma sodium measurement (moles/volume) 133 mmol/L 135-145 Serum or plasma potassium measurement (moles/volume) 3.7 mmol/L 3.6-5.0 Serum or plasma chloride measurement (moles/volume) 104 mmol/L 98-107 Carbon dioxide 22 mmol/L 21-32 Serum or plasma anion gap determination (moles/volume) 7 mmol/L 5-14 Serum or plasma urea nitrogen measurement (mass/volume) 13 mg/dL 7-18 Serum or plasma creatinine measurement (mass/volume) 0.78 mg/dL 0.60-1.30 Serum or plasma urea nitrogen/creatinine mass ratio 17 NRG Serum or plasma creatinine measurement with calculation of estimated glomerular filtration rate > NRG Serum or plasma glucose measurement (mass/volume) 99 mg/dL 70-105 Serum or plasma calcium measurement (mass/volume) 9.2 mg/dL 8.5-10.1 Serum or plasma total bilirubin measurement (mass/volume) 0.2 mg/dL 0.1-1.0 Serum or plasma alkaline phosphatase measurement (enzymatic activity/volume) 97 U/L 40-136 Serum or plasma aspartate aminotransferase measurement (enzymatic activity/ volume) 22 U/L 5-34 Serum or plasma alanine aminotransferase measurement (enzymatic activity/volume ) 10 U/L 0-55 Serum or plasma protein measurement (mass/volume) 6.9 g/dL 6.4-8.2 Serum or plasma albumin measurement (mass/volume) 3.9 g/dL 3.2-4.5 Complete urinalysis with reflex to culture - 09/07/17 19:50 Urine color determination YELLOW NRG Urine clarity determination CLEAR NRG Urine pH measurement by test strip 6.5 5-9 Specific gravity of urine by test strip 1.010 1.016- 1.022 Urine protein assay by test strip, semi-quantitative NEGATIVE NEGATIVE Urine glucose detection by automated test strip NEGATIVE NEGATIVE Erythrocytes detection in urine sediment by light microscopy NEGATIVE NEGATIVE Urine ketones detection by automated test strip NEGATIVE NEGATIVE Urine nitrite detection by test strip NEGATIVE NEGATIVE Urine total bilirubin detection by test strip NEGATIVE NEGATIVE Urine urobilinogen measurement by automated test strip (mass/volume) NORMAL NORMAL Urine leukocyte esterase detection by dipstick 3+ NEGATIVE Automated urine sediment erythrocyte count by microscopy (number/high power field) NONE NRG Automated urine sediment leukocyte count by microscopy (number/high power field ) [HPF] NRG Bacteria detection in urine sediment by light microscopy TRACE NRG Squamous epithelial cells detection in urine sediment by light microscopy 0-2 NRG Crystals detection in urine sediment by light microscopy NONE NRG Casts detection in urine sediment by light microscopy NONE NRG Mucus detection in urine sediment by light microscopy NEGATIVE NRG Complete urinalysis with reflex to culture YES NRG Bacterial urine culture - 09/07/17 19:50 Bacterial urine culture [id number] NRG COLONY COUNT 10,000/ML - 100,000/ML NRG FTX;REPORTABLE SEE COMMENT NRG URINE CULTURE RESULTS PLUS NRG PDM - AMPHETAMINES W/ REFLEX d/l ISOMERS - 09/15/17 12:21 Prescribed Drug 1 Hydrocodone NRG COMMENT NRG Amphetamine NEGATIVE ng/mL <250 medMATCH Amphetamine CONSISTENT NRG Methamphetamine NEGATIVE ng/mL <250 medMATCH Methamphetamine CONSISTENT NRG Encounters ACCT No. Visit Date/Time Discharge Status Pt. Type Provider Facility Loc./Unit Complaint [id number] 09/07/2017 18:45:00 09/07/2017 20:57:00 DIS Outpatient GREY MCKEON APRN [facility] ER PAIN IN HEAD,NECK, AND LOWER BACK [id number] 06/29/2017 13:00:00 06/29/2017 13:47:00 DIS Outpatient RIVERS DO, SYLVESTER [facility] REHAB DYSPHAGIA; ALLODYNIA TO R LATERAL SHOULDER [id number] 06/06/2017 10:01:00 06/06/2017 23:59:59 CLS Outpatient RIVERS DO, SYLVESTER [facility] RAD DYSPHAGIA [id number] 04/04/2017 17:51:00 04/04/2017 23:59:59 CLS Outpatient FROYLAN VELA, JOSE MANUEL Lopes [facility] LAB PAIN IN RT UPPER ARM [id number] 03/15/2017 09:59:00 03/15/2017 23:59:59 CLS Outpatient JEO BAI MD [facility] RAD RT ARM PAIN [id number] 01/29/2017 15:46:00 01/29/2017 18:07:00 DIS Emergency MICHELLE MD, ARUNA Bear [facility] ER SHARP SHOOTING PAINS IN HEAD,LIGHT-HEADED,PRESSURE [id number] 07/07/2016 10:54:00 07/07/2016 23:59:59 CLS Outpatient LEONID HIRSCH MD [facility] CARD CHEST PAIN [id number] 07/02/2016 23:10:00 07/03/2016 12:55:00 DIS Inpatient LEONID HIRSCH MD [facility] ICU CHEST PAIN [id number] 11/25/2015 10:15:00 11/25/2015 23:59:59 CLS Outpatient JOE BAI MD [facility] RAD SCREENING [id number] 07/24/2010 11:45:00 Document Registration [id number] 08/11/2016 10:08:00 Document Registration [id number] 01/29/2017 09:09:00 Document Registration [id number] 08/25/2017 14:40:00 08/25/2017 23:59:59 CLS Outpatient [facility]AI [facility] [id number] 09/15/2017 11:40:00 Document Registration [id number] 06/01/2017 09:00:00 Document Registration [id number] 06/08/2017 11:24:39 06/08/2017 23:59:59 CLS Outpatient Sylvester Rivers [id number] 05/11/2017 10:44:41 05/11/2017 23:59:59 CLS Outpatient Sylvester Rivers [id number] 04/27/2017 10:27:27 04/27/2017 23:59:59 CLS Outpatient Sylvester Rivers
[2017-09-21 16:43] LABS: BILIRUBIN,URINE NEGATIVE (NEGATIVE); CLARITY,URINE CLEAR; COLOR,URINE YELLOW; GLUCOSE, URINE (UA) NEGATIVE (NEGATIVE); KETONES,URINE NEGATIVE (NEGATIVE); LEUKOCYTE ESTERASE ,URINE 2+ (NEGATIVE); NITRITE,URINE NEGATIVE (NEGATIVE); PH,URINE 8 (5-9); PROTEIN,URINE NEGATIVE (NEGATIVE); UROBILINOGEN,URINE NORMAL (NORMAL)
[2017-09-21 16:54] LABS: BACTERIA,URINE TRACE /HPF; RBC,URINE 0-2 /HPF
--- NOTE | 2017-09-21 17:18 | ED GI ---
General Chief Complaint: Abdominal/GI Problems Stated Complaint: ABD PAIN Nursing Triage Note: c/o diffuse abd pain. Onse 2 months ago. Pt was seen by Dr. Bai recently but reports no improvement. Is making arrangments to see GI specialist. Sepsis Screen: No Definite Risk Source of Information: Patient Exam Limitations: No Limitations History of Present Illness Date Seen by Provider: Sep 21, 2017 Time Seen by Provider: 17:17 Initial Comments To ER with diffuse abdominal cramping pain. This began 2 months ago and has been intermittent. This particular pain has been present for about 3 or 4 days associated with loose stools. No fevers or chills. She did see Dr. Bai for this and has been referred to gastroenterology Dr. Farrar but they're awaiting an appointment time. Timing/Duration: 1-2 Days Severity/Quality: Cramping Location: Generalized Abdomen Radiation: No Radiation Activities at Onset: None Allergies and Home Medications Allergies Coded Allergies: Penicillins (Unverified Allergy, Intermediate, HIVES, 07/24/10) meperidine (Unverified Allergy, Intermediate, HIVES, 07/24/10) codeine (Unverified Allergy, Mild, PALPITATIONS, 07/24/10) baclofen (Unverified Adverse Reaction, Unknown, dizzy, nausea, 09/07/17) divalproex sodium (Unverified Adverse Reaction, Unknown, 09/07/17) metaxalone (Unverified Adverse Reaction, Unknown, "bad for me", 09/07/17) methocarbamol (Unverified Adverse Reaction, Unknown, HOSTILE/AGGRESSION, ) tizanidine (Unverified Adverse Reaction, Unknown, drowsy, 09/07/17) Home Medications Butalbital/Aspirin/Caffeine 1 Each Capsule, 1 EACH PO PRN PRN for MIGRAINE, ( Reported) Hydrocodone Bit/Acetaminophen 1 Ea Tablet, 1-2 TAB PO TID PRN for PAIN, ( Reported) Hyoscyamine Sulfate 0.125 Mg Tab.subl, 0.125 MG SL Q6H PRN for CRAMPS Prescribed by: GREY MCKEON on 09/21/171805 Levothyroxine Sodium 75 Mcg Tablet, 1 EACH PO DAILY, (Reported) Orphenadrine Citrate 100 Mg Tablet.sa, 100 MG PO BID, (Reported) Pantoprazole Sodium 40 Mg Tablet.dr, 40 MG PO DAILY, (Reported) Sucralfate 1 Gm Tablet, 1 GM PO TID, (Reported) Sulfamethoxazole/Trimethoprim 1 Each Tablet, 1 EACH PO BID Prescribed by: GREY MCKEON on 09/07/172032 Topiramate 200 Mg Tablet, 400 MG PO DAILY, (Reported) Vortioxetine Hydrobromide 5 Mg Tablet, 5 MG PO DAILY, (Reported) Patient Home Medication List Home Medication List Reviewed: Yes Review of Systems Constitutional: see HPI EENTM: No Symptoms Reported Respiratory: No Symptoms Reported Cardiovascular: No Symptoms Reported Gastrointestinal: See HPI, Abdominal Pain, Diarrhea, Nausea Genitourinary: No Symptoms Reported Musculoskeletal: no symptoms reported Skin: no symptoms reported Psychiatric/Neurological: No Symptoms Reported Endocrine: No Symptoms Reported Past Zykhzdt-Knmpkj-Ivftzu Hx Patient Social History Alcohol Use: Denies Use Recreational Drug Use: No Smoking Status: Never a Smoker Type Used: Cigarettes 2nd Hand Smoke Exposure: No Recent Foreign Travel: No Contact w/Someone Who Travel: No Recent Infectious Disease Expo: No Recent Hopitalizations: No Immunizations Up To Date PED Vaccines UTD: No Date of Pneumonia Vaccine: Apr 02, 2013 Date of Influenza Vaccine: Apr 01, 2016 Seasonal Allergies Seasonal Allergies: No Surgeries History of Surgeries: Yes Surgeries: Abdominal, Appendectomy, Bowel Surgery, Section, Gallbladder, Orthopedic, Tonsillectomy Respiratory History of Respiratory Disorde: No Currently Using CPAP: No Currently Using BIPAP: No Cardiovascular History of Cardiac Disorders: No Neurological History of Neurological Disord: No Reproductive System Sexually Transmitted Disease: No HIV/AIDS: No Female Reproductive Disorders: Denies Genitourinary History of Genitourinary Disor: No Gastrointestinal History of Gastrointestinal Di: Yes (COLON RESECTION FOR ? BENIGN TUMOR? 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 ear.) Loss of Vision: Right Hearing Impairment: Deaf Cancer History of Cancer: No Did You Recieve Any Treatments: No Psychosocial History of Psychiatric Problem: Yes Behavioral Health Disorders: Depression Integumentary History of Skin or Integumenta: No Blood Transfusions History of Blood Disorders: No Adverse Reaction to a Blood Tr: No Family Medical History Family Medial History: Congenital heart disease Diabetes mellitus G8 BROTHER, Onset:Unknown Irregular heart beat 19 FATHER, , Onset:Unknown G8 SISTER, Onset:Unknown Myocardial infarction G8 BROTHER, Onset:Unknown Physical Exam Vital Signs VS - Last 72 Hours, by Label 09/21/17 16:30 Temp 97.5 Pulse 72 Resp 16 B/P (MAP) 133/63 (86) Pulse Ox 98 Capillary Refill : Less Than 3 Seconds General Appearance: WD/WN, no apparent distress HEENT: PERRL/EOMI, normal ENT inspection Neck: non-tender, full range of motion Respiratory: no respiratory distress, no accessory muscle use Cardiovascular: regular rate, rhythm, no murmur Gastrointestinal: normal bowel sounds, soft, tenderness Extremities: normal range of motion, non-tender Neurologic/Psychiatric: alert, normal mood/affect, oriented x 3 Skin: normal color, warm/dry Progress/Results/Core Measures Results/Orders Lab Results Laboratory Tests Test 09/21/17 16:30 09/21/17 17:20 Range/Units Urine Color YELLOW Urine Clarity CLEAR Urine pH 8 5-9 Urine Specific [place] 1.015 L 1.016-1.022 Urine Protein NEGATIVE NEGATIVE Urine Glucose (UA) NEGATIVE NEGATIVE Urine Ketones NEGATIVE NEGATIVE Urine Nitrite NEGATIVE NEGATIVE Urine Bilirubin NEGATIVE NEGATIVE Urine Urobilinogen NORMAL NORMAL MG/DL Urine Leukocyte Esterase 2+ H NEGATIVE Urine RBC (Auto) NEGATIVE NEGATIVE Urine RBC 0-2 /HPF Urine WBC 2-5 /HPF Urine Squamous Epithelial Cells 2-5 /HPF Urine Crystals NONE /LPF Urine Bacteria TRACE /HPF Urine Casts NONE /LPF Urine Mucus NEGATIVE /LPF Urine Culture Indicated NO White Blood Count 8.9 4.3-11.0 10^3/uL Red Blood Count 3.83 L 4.35-5.85 10^6/uL Hemoglobin 12.0 11.5-16.0 G/DL Hematocrit 36 35-52 % Mean Corpuscular Volume 93 80-99 FL Mean Corpuscular Hemoglobin 31 25-34 PG Mean Corpuscular Hemoglobin Concent 34 32-36 G/DL Red Cell Distribution Width 12.7 10.0-14.5 % Platelet Count 287 130-400 10^3/uL Mean Platelet Volume 9.6 7.4-10.4 FL Neutrophils (%) (Auto) 44 42-75 % Lymphocytes (%) (Auto) 41 12-44 % Monocytes (%) (Auto) 11 0-12 % Eosinophils (%) (Auto) 4 0-10 % Basophils (%) (Auto) 0 0-10 % Neutrophils # (Auto) 4.0 1.8-7.8 X 10^3 Lymphocytes # (Auto) 3.6 1.0-4.0 X 10^3 Monocytes # (Auto) 1.0 0.0-1.0 X 10^3 Eosinophils # (Auto) 0.3 0.0-0.3 10^3/uL Basophils # (Auto) 0.0 0.0-0.1 10^3/uL Sodium Level 140 135-145 MMOL/L Potassium Level 3.9 3.6-5.0 MMOL/L Chloride Level 111 H 98-107 MMOL/L Carbon Dioxide Level 25 21-32 MMOL/L Anion Gap 4 L 5-14 MMOL/L Blood Urea Nitrogen 10 7-18 MG/DL Creatinine 0.71 0.60-1.30 MG/DL Estimat Glomerular Filtration Rate > 60 BUN/Creatinine Ratio 14 Glucose Level 94 70-105 MG/DL Calcium Level 9.1 8.5-10.1 MG/DL Total Bilirubin 0.1 0.1-1.0 MG/DL Aspartate Amino Transf (AST/SGOT) 20 5-34 U/L Alanine Aminotransferase (ALT/SGPT) 12 0-55 U/L Alkaline Phosphatase 92 40-136 U/L Total Protein 6.6 6.4-8.2 GM/DL Albumin 3.8 3.2-4.5 GM/DL Lipase 31 8-78 U/L My Orders Orders - GREY MCKEON APRN Cbc With Automated Diff (09/21/17 16:36) Comprehensive Metabolic Panel (09/21/17 16:36) Ua Culture If Indicated (09/21/17 16:36) Saline Lock/Iv-Start (09/21/17 16:36) Lipase (09/21/17 16:36) Hyoscyamine Sl Tablet (Levsin Sl Tablet) (09/21/17 17:30) Ct Abdomen/Pelvis W (09/21/17 17:19) Iohexol Injection (Omnipaque 350 Mg/Ml 1 (09/21/17 17:30) Ns (Ivpb) (Sodium Chloride 0.9%) (09/21/17 17:30) Pharmacy Communication (Pharmacy Communi (09/21/17 17:24) Medications Given in ED Current Medications Medications Dose Ordered Sig/Emily Route Start Time Stop Time Status Last Admin Dose Admin Hyoscyamine Sulfate 0.25 mg ONCE ONCE PO 09/21/17 17:30 09/21/17 17:31 DC 09/21/17 17:26 0.25 MG Iohexol 100 ml ONCE ONCE IV 09/21/17 17:30 09/21/17 17:31 DC 09/21/17 17:32 100 ML Sodium Chloride 250 ml ONCE ONCE IV 09/21/17 17:30 09/21/17 17:31 DC 09/21/17 17:32 80 ML Vital Signs/I&O Vital Sign - Last 12Hours 09/21/17 16:30 Temp 97.5 Pulse 72 Resp 16 B/P (MAP) 133/63 (86) Pulse Ox 98 Blood Pressure Mean: 86 Departure Impression Impression: Primary Impression: Abdominal cramping Disposition: 01 HOME, SELF-CARE Condition: Critical Departure-Patient Inst. Decision time for Depature: 18:04 Referrals: JOE BAI MD (PCP/Family) Primary Care Physician Patient Instructions: Acute Abdomen (Belly Pain), Adult (DC) Add. Discharge Instructions: 1. Follow up with gastroenterology as schedued Scripts Hyoscyamine Sulfate (Levsin-Sl) 0.125 Mg Tab.subl 0.125 MG SL Q6H Y for CRAMPS, #10 TAB Prov: GREY MCKEON APRN 09/21/17 GREY MCKEON APRN Sep 21, 2017 17:18
[2017-09-21] MEDS ORDERED: NS 250 ML (IVPB) BAG IV ONE (17:30)
[2017-09-21] MEDS ORDERED: HYOSCYAMINE 0.125 MG (LEVSIN) TAB PO ONE (17:30)
[2017-09-21] MEDS ORDERED: IOHEXOL 350 MG/ML 100 ML (OMNIPAQUE 350) VIAL IV ONE (17:30)
[2017-09-21 17:34] LABS: BASOPHILS % (AUTO) 0 % (0-10); EOSINOPHILS # (AUTO) 0.3 10^3/uL (0.0-0.3); EOSINOPHILS % (AUTO) 4 % (0-10); HEMATOCRIT 36 % (35-52); LYMPHOCYTES # (AUTO) 3.6 X 10^3 (1.0-4.0); LYMPHOCYTES % (AUTO) 41 % (12-44); MEAN CORPUSCULAR HEMOGLOBIN 31 PG (25-34); MEAN CORPUSCULAR HGB CONC 34 G/DL (32-36); MEAN CORPUSCULAR VOLUME 93 FL (80-99); MEAN PLATELET VOLUME 9.6 FL (7.4-10.4); MONOCYTES % (AUTO) 11 % (0-12); NEUTROPHILS % (AUTO) 44 % (42-75); PLATELET COUNT 287 10^3/uL (130-400); RED BLOOD COUNT 3.83 10^6/uL (4.35-5.85); RED CELL DISTRIBUTION WIDTH 12.7 % (10.0-14.5); WHITE BLOOD COUNT 8.9 10^3/uL (4.3-11.0)
[2017-09-21 17:44] LABS: ALANINE AMINOTRANSFERASE 12 U/L (0-55); ALBUMIN 3.8 GM/DL (3.2-4.5); ALKALINE PHOSPHATASE 92 U/L (40-136); BILIRUBIN,TOTAL 0.1 MG/DL (0.1-1.0); BUN/CREATININE RATIO 14; CALCIUM 9.1 MG/DL (8.5-10.1); CARBON DIOXIDE 25 MMOL/L (21-32); CHLORIDE 111 MMOL/L (98-107); CREATININE SERUM 0.71 MG/DL (0.60-1.30); GFR ESTIMATED > 60; GLUCOSE 94 MG/DL (70-105); LIPASE 31 U/L (8-78); POTASSIUM 3.9 MMOL/L (3.6-5.0); SODIUM 140 MMOL/L (135-145); TOTAL PROTEIN 6.6 GM/DL (6.4-8.2)
--- NOTE | 2017-09-21 17:53 | Diagnostic Imaging Report ---
PROCEDURE: CT abdomen and pelvis with contrast. TECHNIQUE: Multiple contiguous axial images were obtained through the abdomen and pelvis after administration of intravenous contrast. INDICATION: Abdominal pain, nausea, bloating, previous history of colon resection, appendectomy, hysterectomy, and cholecystectomy. COMPARISON STUDY: None. FINDINGS: The lung bases are clear. The gallbladder is absent. No ductal dilatation is present. The liver, spleen, pancreas, adrenal glands, and kidneys are normal. There are no renal calculi or hydronephrosis. No hernias are present. The urinary bladder appears normal. The uterus and appendix are absent. The bowel loops appear unremarkable. No obstruction, ileus, or inflammatory changes are present. There is no ascites, free air, or abnormal adenopathy. Mild arteriosclerosis is present. The osseous structures are normal. IMPRESSION: There are postoperative changes with no acute findings. Dictated by: Dictated on workstation # [id number]
[2017-09-21] MEDS ORDERED: HYOS0.1283 SL (18:06)
[2017-09-21 18:35] VITALS: BP 130/62
== END 2017-09-21 18:35 | disposition home or self-care (01) ==
LOC: EDUNIT# 14:19 → ER 14:20
DX: R10.84 Generalized abdominal pain (principal); F32.9 Major depressive disorder, single episode, unspecified; E03.9 Hypothyroidism, unspecified; K21.9 Gastro-esophageal reflux disease without esophagitis; Z87.19 Personal history of other diseases of the digestive system; Z90.49 Acquired absence of other specified parts of digestive tract; Z90.89 Acquired absence of other organs; Z87.59 Personal history of other complications of pregnancy, childbirth and the puerperium; Z88.0 Allergy status to penicillin; Z88.6 Allergy status to analgesic agent; Z88.1 Allergy status to other antibiotic agents; Z88.8 Allergy status to other drugs, medicaments and biological substances
CPT/HCPCS: 36415; 74177; 80053; 81000; 83690; 85025

== ENCOUNTER 2017-10-06 11:23 | Observation (INO) | payer MEDICARE, MEDICAID ==
[~2017-10-06] VITALS: Ht 157.5 cm; Wt 98.9 kg
[~2017-10-06 11:23] MED LIST changes: +HYOS0.1283 SL
[2017-10-06] MEDS ORDERED: ASPIRIN 81 MG CHEW (CHILDREN'S ASA) PO ONE (11:30)
[2017-10-06 11:47] LABS: BASOPHILS % (AUTO) 0 % (0-10); EOSINOPHILS # (AUTO) 0.3 10^3/uL (0.0-0.3); EOSINOPHILS % (AUTO) 4 % (0-10); HEMATOCRIT 38 % (35-52); HEMOGLOBIN 12.8 G/DL (11.5-16.0); LYMPHOCYTES # (AUTO) 2.8 X 10^3 (1.0-4.0); LYMPHOCYTES % (AUTO) 38 % (12-44); MEAN CORPUSCULAR HEMOGLOBIN 31 PG (25-34); MEAN CORPUSCULAR HGB CONC 34 G/DL (32-36); MEAN CORPUSCULAR VOLUME 92 FL (80-99); MEAN PLATELET VOLUME 9.6 FL (7.4-10.4); MONOCYTES # (AUTO) 0.8 X 10^3 (0.0-1.0); MONOCYTES % (AUTO) 11 % (0-12); NEUTROPHILS # (AUTO) 3.4 X 10^3 (1.8-7.8); NEUTROPHILS % (AUTO) 46 % (42-75); PLATELET COUNT 303 10^3/uL (130-400); RED BLOOD COUNT 4.15 10^6/uL (4.35-5.85); WHITE BLOOD COUNT 7.3 10^3/uL (4.3-11.0)
--- NOTE | 2017-10-06 11:53 | Diagnostic Imaging Report ---
Indication: Chest pain. Time of exam: 11:46 AM Correlation is made with prior study from 07/03/2016. Findings: The heart size is normal. There is mild right convexity thoracic scoliotic curvature. No infiltrates are seen. No effusion or pneumothorax is identified. Impression: No acute cardiopulmonary process is detected. Dictated by: Dictated on workstation # [id number]
[2017-10-06] MEDS: NITROGLYCERIN 0.4 MG SL TABS BTL 25'S SL PRN ×3 (11:56→12:15)
[2017-10-06 12:00] LABS: INR 0.9 (0.8-1.4); PROTHROMBIN TIME PATIENT 12.7 SEC (12.2-14.7)
[2017-10-06 12:07] LABS: ALANINE AMINOTRANSFERASE 12 U/L (0-55); ALBUMIN 4.1 GM/DL (3.2-4.5); ALKALINE PHOSPHATASE 91 U/L (40-136); BILIRUBIN,TOTAL 0.2 MG/DL (0.1-1.0); BUN/CREATININE RATIO 18; CALCIUM 9.2 MG/DL (8.5-10.1); CARBON DIOXIDE 19 MMOL/L (21-32); CHLORIDE 108 MMOL/L (98-107); CREATININE SERUM 0.74 MG/DL (0.60-1.30); GFR ESTIMATED > 60; GLUCOSE 126 MG/DL (70-105); MAGNESIUM 2.2 MG/DL (1.8-2.4); POTASSIUM 3.7 MMOL/L (3.6-5.0); SODIUM 135 MMOL/L (135-145); TOTAL PROTEIN 7.2 GM/DL (6.4-8.2)
--- NOTE | 2017-10-06 12:10 | ED Cardiac General ---
History of Present Illness General Chief Complaint: Chest Pain Stated Complaint: CHEST PAIN/SOA Nursing Triage Note: ARRIVED VIA AMB TO ROOM 08. COMPLAINS OF CHEST PAIN STARTING AT 0139 TODAY. PT HAS TAKEN X3 ASA ET SOME MYLANTA WITH NO RELIEF. PT STATES IT RADIATES INTO LEFT JAW AND ARM. Source: patient Exam Limitations: no limitations History of Present Illness Date Seen by Provider: Oct 06, 2017 Time Seen by Provider: 12:08 Initial Comments to ERwwith reports of chest pain that awakened her from sleep at 1:30 this morning. She took 3-4 baby aspirin at home at that time. The pain has been constant but varying in intensity since 1:30 this morning upon awakening. She does have associated shortness of breath, diaphoresis, nausea, the pain radiates to her jaw and left arm. She is a nonsmoker. She reports that all of her brothers and sisters and both parents have cardiac disease. Timing/Duration: constant Severity: moderate Location: central Prior CP/Workup: no prior chest pain NTG SL FIELD ATTENDANT: No ASA po FIELD ATTENDANT: Yes Associated Systoms: Chest Pain; No Cough; Diaphoresis, Nausea/Vomiting Allergies and Home Medications Allergies Coded Allergies: Penicillins (Unverified Allergy, Intermediate, HIVES, 07/24/10) meperidine (Unverified Allergy, Intermediate, HIVES, 07/24/10) codeine (Unverified Allergy, Mild, PALPITATIONS, 07/24/10) baclofen (Unverified Adverse Reaction, Unknown, dizzy, nausea, 09/07/17) divalproex sodium (Unverified Adverse Reaction, Unknown, 09/07/17) metaxalone (Unverified Adverse Reaction, Unknown, "bad for me", 09/07/17) methocarbamol (Unverified Adverse Reaction, Unknown, HOSTILE/AGGRESSION, ) tizanidine (Unverified Adverse Reaction, Unknown, drowsy, 09/07/17) Home Medications Butalbital/Aspirin/Caffeine 1 Each Capsule, 1 EACH PO PRN PRN for MIGRAINE, ( Reported) Hydrocodone Bit/Acetaminophen 1 Ea Tablet, 1-2 TAB PO TID PRN for PAIN, ( Reported) Hyoscyamine Sulfate 0.125 Mg Tab.subl, 0.125 MG SL Q6H PRN for CRAMPS Prescribed by: GREY MCKEON on 09/21/171805 Levothyroxine Sodium 75 Mcg Tablet, 1 EACH PO DAILY, (Reported) Orphenadrine Citrate 100 Mg Tablet.sa, 100 MG PO BID, (Reported) Pantoprazole Sodium 40 Mg Tablet.dr, 40 MG PO DAILY, (Reported) Sucralfate 1 Gm Tablet, 1 GM PO TID, (Reported) Sulfamethoxazole/Trimethoprim 1 Each Tablet, 1 EACH PO BID Prescribed by: GREY MCKEON on 09/07/172032 Topiramate 200 Mg Tablet, 400 MG PO DAILY, (Reported) Vortioxetine Hydrobromide 5 Mg Tablet, 5 MG PO DAILY, (Reported) Patient Home Medication List Home Medication List Reviewed: Yes Review of Systems Constitutional: see HPI EENTM: No Symptoms Reported Respiratory: See HPI, Cough Cardiovascular: See HPI, Chest Pain Gastrointestinal: No Symptoms Reported Genitourinary: No Symptoms Reported Musculoskeletal: no symptoms reported Skin: no symptoms reported Psychiatric/Neurological: No Symptoms Reported Endocrine: No Symptoms Reported Past Qrtweaf-Ubwkmz-Uullpf Hx Patient Social History Alcohol Use: Denies Use Recreational Drug Use: No Smoking Status: Never a Smoker Type Used: Cigarettes 2nd Hand Smoke Exposure: No Recent Foreign Travel: No Contact w/Someone Who Travel: No Recent Infectious Disease Expo: No Recent Hopitalizations: No Immunizations Up To Date PED Vaccines UTD: No Date of Pneumonia Vaccine: Apr 02, 2013 Date of Influenza Vaccine: Apr 01, 2016 Seasonal Allergies Seasonal Allergies: No Past Medical History Surgeries: Yes Abdominal, Appendectomy, Bowel Surgery, Section, Gallbladder, Orthopedic, Tonsillectomy Respiratory: No Currently Using CPAP: No Currently Using BIPAP: No Cardiac: Yes Angina Neurological: No Female Reproductive Disorders: Denies Sexually Transmitted Disease: No HIV/AIDS: No Genitourinary: No Gastrointestinal: Yes (COLON RESECTION FOR ? BENIGN TUMOR? ) Gastroesophageal Reflux, Ulcer Musculoskeletal: Yes (CHRONIC NECK PAIN; RSD) Fibromyalgia, Chronic Back Pain Endocrine: Yes (HYPOGLYCEMIC) Hypothyroidsim HEENT: Yes (Vision changes in right eye, 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 ear.) Loss of Vision: Right Hearing Impairment: Deaf Cancer: No Did You Recieve Any Treatments: No Psychosocial: Yes Depression Integumentary: No Blood Disorders: No Adverse Reaction/Blood Tranf: No Family Medical History Congenital heart disease Diabetes mellitus G8 BROTHER, Onset:Unknown Irregular heart beat 19 FATHER, , Onset:Unknown G8 SISTER, Onset:Unknown Myocardial infarction G8 BROTHER, Onset:Unknown Physical Exam Vital Signs Vital Signs - First Documented 10/06/17 11:23 Temp 98.0 Pulse 81 Resp 18 B/P (MAP) 142/83 (102) Pulse Ox 95 O2 Delivery Room Air Capillary Refill : Less Than 3 Seconds General Appearance: No Apparent Distress, WD/WN HEENT: PERRL/EOMI, TMs Normal Neck: Full Range of Motion, Normal Inspection Respiratory: Normal Breath Sounds, No Accessory Muscle Use, No Respiratory Distress Cardiovascular: Regular Rate, Rhythm, Normal Peripheral Pulses Gastrointestinal: Normal Bowel Sounds, Non Tender, Soft Extremity: Normal Capillary Refill, Normal Inspection Neurologic/Psychiatric: Alert, Oriented x3 Skin: Normal Color, Warm/Dry Progress/Results/Core Measures Lab Results Laboratory Tests Test 10/06/17 11:35 Range/Units White Blood Count 7.3 4.3-11.0 10^3/uL Red Blood Count 4.15 L 4.35-5.85 10^6/uL Hemoglobin 12.8 11.5-16.0 G/DL Hematocrit 38 35-52 % Mean Corpuscular Volume 92 80-99 FL Mean Corpuscular Hemoglobin 31 25-34 PG Mean Corpuscular Hemoglobin Concent 34 32-36 G/DL Red Cell Distribution Width 13.0 10.0-14.5 % Platelet Count 303 130-400 10^3/uL Mean Platelet Volume 9.6 7.4-10.4 FL Neutrophils (%) (Auto) 46 42-75 % Lymphocytes (%) (Auto) 38 12-44 % Monocytes (%) (Auto) 11 0-12 % Eosinophils (%) (Auto) 4 0-10 % Basophils (%) (Auto) 0 0-10 % Neutrophils # (Auto) 3.4 1.8-7.8 X 10^3 Lymphocytes # (Auto) 2.8 1.0-4.0 X 10^3 Monocytes # (Auto) 0.8 0.0-1.0 X 10^3 Eosinophils # (Auto) 0.3 0.0-0.3 10^3/uL Basophils # (Auto) 0.0 0.0-0.1 10^3/uL Prothrombin Time 12.7 12.2-14.7 SEC INR Comment 0.9 0.8-1.4 Activated Partial Thromboplast Time 34 24-35 SEC Sodium Level 135 135-145 MMOL/L Potassium Level 3.7 3.6-5.0 MMOL/L Chloride Level 108 H 98-107 MMOL/L Carbon Dioxide Level 19 L 21-32 MMOL/L Anion Gap 8 5-14 MMOL/L Blood Urea Nitrogen 13 7-18 MG/DL Creatinine 0.74 0.60-1.30 MG/DL Estimat Glomerular Filtration Rate > 60 BUN/Creatinine Ratio 18 Glucose Level 126 H 70-105 MG/DL Calcium Level 9.2 8.5-10.1 MG/DL Magnesium Level 2.2 1.8-2.4 MG/DL Total Bilirubin 0.2 0.1-1.0 MG/DL Aspartate Amino Transf (AST/SGOT) 25 5-34 U/L Alanine Aminotransferase (ALT/SGPT) 12 0-55 U/L Alkaline Phosphatase 91 40-136 U/L Myoglobin 31.7 10.0-92.0 NG/ML Troponin I < 0.30 <0.30 NG/ML Total Protein 7.2 6.4-8.2 GM/DL Albumin 4.1 3.2-4.5 GM/DL My Orders Orders - GREY MCKEON APRN Cbc With Automated Diff (10/06/17 11:28) Magnesium (10/06/17 11:28) Chest 1 View, Ap/Pa Only (10/06/17 11:28) Ekg Tracing (10/06/17 11:28) Cardiac Profile 1 (10/06/17 11:28) Comprehensive Metabolic Panel (10/06/17 11:28) Myoglobin Serum (10/06/17 11:28) Protime With Inr (10/06/17 11:28) Partial Thromboplastin Time (10/06/17 11:28) O2 (10/06/17 11:28) Monitor-Rhythm Ecg Trace Only (10/06/17 11:28) Lipid Panel (10/07/17 06:00) Aspirin Chewable Tablet (Baby Aspirin Ch (10/06/17 11:30) Saline Lock/Iv-Start (10/06/17 11:28) Nitroglycerin 0.4 Mg Btl 25's (Nitrostat (10/06/17 12:00) Fibrin Degradation Products (10/06/17 12:42) Medications Given in ED Current Medications Medications Dose Ordered Sig/Emily Route Start Time Stop Time Status Last Admin Dose Admin Nitroglycerin 1 TAB Q 5 MIN X 3 NEEDED PRN SL 10/06/17 12:00 10/06/17 12:15 0.4 MG Vital Signs/I&O 10/06/17 11:23 Temp 98.0 Pulse 81 Resp 18 B/P (MAP) 142/83 (102) Pulse Ox 95 O2 Delivery Room Air Blood Pressure Mean: 102 Departure Communication (Admissions) Time/Spoke to Admitting Phy: 12:[address] Waters from [facility].she agrees to admit the patient, consult cardiology. I feel that the patient's chest pain is most likely musculoskeletal or psychological she does seem anxious. However are strong immediate family history of coronary artery disease by her description she would warrant further workup. Time/Spoke to Consulting Phy: 12:[address] Benson. We will get an echocardiogram today, serial cardiac enzymes. If those remain negative then a stress test tomorrow. 1224-she had transient improvement in chest pain with a sublingual nitroglycerin but it recurred with left arm movement. I suspect that her chest pain as not due to significant ccoronary artery disease given the troponin is negative despite 12 hours of constant symptoms. However, her description of symptoms and family history is concerning. Her mediastinum is not widened, the radial pulses are 2+ in strength bilaterally, she is not hypertensive. Impression Primary Impression: Chest pain Disposition: ADMITTED INPATIENT Condition: Stable Admissions Decision to Admit Reason: Admit from ER (General) Decision to Admit/Date: Oct 06, 2017 Time/Decision to Admit Time: 12:41 Departure-Patient Inst. Referrals: JOE BAI MD (PCP/Family) Primary Care Physician GREY MCKEON APRN Oct 06, 2017 12:10
[2017-10-06 12:14] LABS: MYOGLOBIN SERUM 31.7 NG/ML (10.0-92.0)
[2017-10-06 13:40] VITALS: BP 126/66
[2017-10-06] MEDS ORDERED: ONDANSETRON 4 MG/2 ML (SDV) Z0FRAN IV PRN (14:15)
[2017-10-06] MEDS: NS IV 1000 ML 1,000 ML IV SCH ×2 (14:26→22:25)
[2017-10-06] MEDS ORDERED: HYDR-3816 PO (14:28)
[2017-10-06] MEDS ORDERED: LEVO75TA6 PO (14:28)
[2017-10-06] MEDS ORDERED: ORPH100T PO (14:28)
[2017-10-06] MEDS ORDERED: TIZA4TAB3 PO (14:28)
[2017-10-06] MEDS ORDERED: HYDR-3584 PO (14:42)
[2017-10-06] MEDS ORDERED: MAG30ORA2 PO (14:43)
[2017-10-06] MEDS ORDERED: NON-FORMULARY MEDICATION 1 EA EA (Hydrocodone/Acetaminophen (Hydrocodone-Acetamin 7.5-325) PO PRN (15:45)
[2017-10-06] MEDS ORDERED: NON-FORMULARY MEDICATION 1 EA EA (Hydroxyzine HCl 10 MG) PO PRN (15:45)
[2017-10-06] MEDS ORDERED: NON-FORMULARY MEDICATION 1 EA EA (Aspirin/Acetaminophen/Caffeine (Excedrin Migraine Caplet PO PRN (15:45)
[2017-10-06] MEDS ORDERED: ANTACID SUSP 30 ML UDC (MYLANTA) PO PRN (15:45)
[2017-10-06] MEDS ORDERED: HYOSCYAMINE SULFATE 0.125 MG SL PRN (15:45)
[2017-10-06 16:00] VITALS: BP 119/56
[2017-10-06] MEDS ORDERED: hydrOXYzine (ATARAX) 10 MG TAB PO PRN (16:00)
[2017-10-06] MEDS ORDERED: HYOSCYAMINE 0.125 MG (LEVSIN) TAB SL PRN (16:00)
[2017-10-06] MEDS ORDERED: SUCRALFATE 1 GM (CARAFATE) TAB PO SCH (16:00)
[2017-10-06] MEDS ORDERED: HYDROcodone/APAP 7.5 MG/325 MG (LORTAB, LORCET PLUS) TABLET PO PRN (16:00)
[2017-10-06] MEDS ORDERED: PATIENT MAY USE OWN MEDS, ALL MC SCH (16:15)
[2017-10-06] MEDS: SUCRALFATE 1 GM (CARAFATE) TAB PO SCH (18:31)
[2017-10-06 19:40] VITALS: BP 128/58
[2017-10-06] MEDS: TOPIRAMATE 200 MG TAB PO SCH (19:58)
[2017-10-06] MEDS: HYDROcodone/APAP 7.5 MG/325 MG (LORTAB, LORCET PLUS) TABLET PO PRN (19:58)
[2017-10-06] MEDS: ORPHENADRINE 100 MG PO SCH (19:59)
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
[2017-10-06] MEDS ORDERED: NON-FORMULARY MEDICATION 1 EA EA (Topiramate 200 MG) PO SCH (21:00)
[2017-10-06] MEDS ORDERED: NON-FORMULARY MEDICATION 1 EA EA (Orphenadrine Citrate 100 MG) PO SCH (21:00)
[2017-10-06] MEDS ORDERED: toPIRamate 100 MG (TOPAMAX) TAB PO SCH (21:00)
[2017-10-07] VITALS: BP 114/54
[2017-10-07 04:00] VITALS: BP 120/64
[2017-10-07] MEDS: SUCRALFATE 1 GM (CARAFATE) TAB PO SCH ×2 (04:28→10:23)
[2017-10-07] MEDS: NS IV 1000 ML 1,000 ML IV SCH (05:20)
[2017-10-07] MEDS ORDERED: LEVOTHYROXINE 75 MCG (LEVOTHROID) TABLET PO SCH ×2 (06:30)
[2017-10-07 06:44] LABS: CHOLESTEROL 172 MG/DL (< 200); HDL CHOLESTEROL 43 MG/DL (40-60); TRIGLYCERIDES 158 MG/DL (<150); VLDL CHOLESTEROL 32 MG/DL (5-40)
[2017-10-07] MEDS ORDERED: PANTOPRAZOLE 40 MG (PROTONIX) TAB PO SCH ×2 (07:00)
[2017-10-07] MEDS: CATHETER FLUSH 10 ML SYR IV PRN ×2 (07:33→09:10)
[2017-10-07] MEDS ORDERED: REGADENOSON 0.4 MG/5 ML SYR (LEXISCAN) IV ONE ×2 (08:59→09:15)
[2017-10-07] MEDS ORDERED: TRINTELLIX 5 MG PO SCH (09:00)
[2017-10-07] MEDS ORDERED: LEVOTHYROXINE SODIUM 75 MCG PO SCH (09:00)
[2017-10-07] MEDS ORDERED: ASPIRIN 81 MG CHEW (CHILDREN'S ASA) PO SCH (09:00)
[2017-10-07 09:07] VITALS: BP 141/84
--- NOTE | 2017-10-07 09:15 | Cardiology Progress Note ---
Cardiology SOAP Progress Note Subjective: No further chest pain. Objective: I&O/Vital Signs 10/07/17 10/07/17 10/07/17 10/07/17 00:00 01:00 04:00 07:00 Temp 97.4 97.0 Pulse 69 69 73 69 Resp 18 18 B/P (MAP) 114/54 (74) 120/64 (82) Pulse Ox 94 96 O2 Delivery Room Air Room Air 10/07/17 09:07 Pulse 97 Resp 16 B/P (MAP) 141/84 (103) Pulse Ox 98 O2 Delivery Room Air 10/07/17 00:00 Intake Total 1040 ml Output Total 2100 ml Balance -1060 ml Weight (Pounds): 218 Weight (Ounces): 1.0 Weight (Calculated Kilograms): [id number] Constitutional: appears stated age; No apparent distress; well-developed, well- nourished Respiratory: No accessory muscle use, No respiratory distress, No chest tender , No chest expansion is symmetric, No chest is bilaterally symmetric, No lungs clear to percussion, No lungs clear to auscultation, No crackles, No rhonchi, No rales, No stridor, No wheezing, No pleural rub, No other Cardiovascular: regular rate-rhythm; No irregularly irregular, No extra beats, No parasternal heave is noted, No JVD, No edema, No bradycardia, No tachycardia , No point of maximal impulse, No cardiac thrills are palpable; S1 and S2; No gallop/S3, No gallop/S4, No diastolic murmur, No systolic murmur, No friction rub, No click, No other Gastrointestional: No tender, No soft, No round, No distended, No pulsatile mass, No organomegaly, No guarding, No rebound, No tenderness, No hernia, No mass, No audible bowel sounds, No abnormal bowel sounds, No abdominal bruits, No spleenomegaly, No other Extremities: No normal range of motion, No non-tender, No normal inspection, No pedal edema, No calf tenderness, No normal capillary refill, No pelvis stable , No calf tenderness, No inflammation, No pedal edema, No slow capillary refill , No swelling, No other, No abrasion, No clubbing, No cyanosis, No ecchymosis, No laceration, No no lower extremity edema bilateral, No significant edema, No tenderness, No wound Neurologic/Psychiatric: alert, oriented x 3, power is 5/5 both on sides Skin: No normal color, No warm/dry, No cyanosis, No cool, No diaphoresis, No damp, No ecchymosis, No jaundice, No mottled, No pallor, No rash, No tattoos/ piercings, No ulcerations, No rash on exposed areas, No ulcerations on exposed areas, No other Results/Procedures: Labs Laboratory Tests 10/06/17 11:35: White Blood Count 7.3, Red Blood Count 4.15L, Hemoglobin 12.8, Hematocrit 38, Mean Corpuscular Volume 92, Mean Corpuscular Hemoglobin 31, Mean Corpuscular Hemoglobin Concent 34, Red Cell Distribution Width 13.0, Platelet Count 303, Mean Platelet Volume 9.6, Neutrophils (%) (Auto) 46, Lymphocytes (%) (Auto) 38, Monocytes (%) (Auto) 11, Eosinophils (%) (Auto) 4, Basophils (%) (Auto) 0, Neutrophils # (Auto) 3.4, Lymphocytes # (Auto) 2.8, Monocytes # (Auto) 0.8, Eosinophils # (Auto) 0.3, Basophils # (Auto) 0.0, Prothrombin Time 12.7, INR Comment 0.9, Activated Partial Thromboplast Time 34, D-Dimer 0.46, Sodium Level 135, Potassium Level 3.7, Chloride Level 108H, Carbon Dioxide Level 19L, Anion Gap 8, Blood Urea Nitrogen 13, Creatinine 0.74, Estimat Glomerular Filtration Rate > 60, BUN/Creatinine Ratio 18, Glucose Level 126H, Calcium Level 9.2, Magnesium Level 2.2, Total Bilirubin 0.2, Aspartate Amino Transf (AST/SGOT) 25, Alanine Aminotransferase (ALT/SGPT) 12, Alkaline Phosphatase 91, Myoglobin 31.7 , Troponin I < 0.30, Total Protein 7.2, Albumin 4.1 10/06/17 17:35: Troponin I < 0.30 10/06/17 23:40: Troponin I < 0.30 10/07/17 06:15: Triglycerides Level 158H, Cholesterol Level 172, LDL Cholesterol Direct 103, VLDL Cholesterol 32, HDL Cholesterol 43 A/P: Assessment/Dx: Chest pain, hypothyroidism Plan: Acute coronary syndrome was ruled out with serial negative troponin. EKG is negative. No further chest pain. Nuclear stress test this morning. Echocardiogram prelim - normal LV fx with no wall motion abnormalities. Hypothyroidism - thyroxine. Thank you for your consultation. Please call me if you have any questions. Nilson Benson MD, FACP, FACC, FSCAI, FHRS, CCDS Interventional Cardiology Cardiac Electrophysiology Vascular Medicine and Endovascular Interventions Clinical Quality Measures AMI/AHF: ASA po Prior to arrival: Yes Moses BENSON MD Oct 07, 2017 9:15 am
[2017-10-07] MEDS: ORPHENADRINE 100 MG PO SCH (10:24)
[2017-10-07] MEDS: TOPIRAMATE 200 MG TAB PO SCH (10:24)
[2017-10-07] MEDS: HYDROcodone/APAP 7.5 MG/325 MG (LORTAB, LORCET PLUS) TABLET PO PRN (10:35)
[2017-10-07 12:00] VITALS: BP 131/62
[2017-10-07 13:00] VITALS: BP 131/62
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
[2017-10-07 17:00] VITALS: BP_DIAS 50
--- NOTE | 2017-10-07 17:00 | Cardiology Stress Test Report ---
Stress Test Report Type of NM Stress Test: Test Type: LEXISCAN 0.4MG/5ML Date of Procedure/Referring: Date of Procedure: Oct 07, 2017 PCP Gladys Waters MD Admitting Physician Carlos Garcia MD Indications: Chest pain Baseline Heart Rate: 66 Baseline Blood Pressure: Blood Pressure Systolic: 131 Blood Pressure Diastolic: 50 Baseline EKG: Baseline EKG: sinus rhythm Summary: The patient was brought to the stress lab of informed consent was taken. Lexiscan stress test was performed according to the protocol. 0.4 mg of IV Lexiscan was given. Low-grade exercise was performed. Baseline EKG showed sinus rhythm at 66 BPM. Blood pressure 131/50 mmHg. Maximum heart rate of 104 bpm and blood pressure 148/92 mmHg. Patient did not have any chest pain, EKG changes or arrhythmias noted during the stress test. 10.1 mCi of Myoview was given for rest imaging and 30.4 mCi of Myoview was given for stress imaging. Transient ischemic dilatation score was 0.94. Ejection fraction of 61 percent with normal wall motion. Normal myocardial perfusion during rest and stress. Conclusion: Pharmacological stress test is negative for ischemia. Normal LV function with no wall motion abnormalities. Normal myocardial perfusion imaging during stress and rest. Moses ESCOBAR MD Oct 07, 2017 17:00
== END 2017-10-07 12:40 | disposition home or self-care (01) ==
LOC: EDUNIT# 11:23 → ER 11:24 → UNDOADMOB 12:47 → 4TH 12:47 → UNDODISOB 10-07 13:00
PROVIDERS: ADMIT Family Medicine; ATTEND Family Medicine
DX: R07.9 Chest pain, unspecified (principal); F41.9 Anxiety disorder, unspecified; F32.9 Major depressive disorder, single episode, unspecified; E03.9 Hypothyroidism, unspecified; M79.7 Fibromyalgia; K59.09 Other constipation
CPT/HCPCS: 36415; 71045; 78452; 80053; 80061; 83735; 83874; 84484; 85025; 85379; 85610; 85730; 93005; 93017; 93041; 93306; 99211; G0378

== ENCOUNTER → 2017-12-06 | Outpatient (CLI) | payer MEDICARE, MEDICAID ==
[~2017-12-06] MED LIST changes: +HYDR-3584 PO; +HYDR-3816 PO; +LEVO75TA6 PO; +MAG30ORA2 PO; +TIZA4TAB3 PO
--- NOTE | 2017-12-06 16:03 | Diagnostic Imaging Report ---
PROCEDURE: US right lower extremity venous. TECHNIQUE: Multiple real-time grayscale images were obtained over the right lower extremity in various projections. Additional duplex Doppler and color Doppler images were also obtained. INDICATION: Right ankle pain and swelling. FINDINGS: The right common femoral, superficial femoral, popliteal veins and tibial veins demonstrate normal response to compression, augmentation, and Valsalva. There are no right lower extremity fluid collections or masses. IMPRESSION: No evidence of deep vein thrombosis in the right lower extremity. Dictated by: Dictated on workstation # [id number]
== END ==
LOC: RAD 15:20
PROVIDERS: ATTEND Nurse Practitioner Family
DX: M25.471 Effusion, right ankle (principal); M25.561 Pain in right knee

== ENCOUNTER → 2018-02-23 | Outpatient (CLI) | payer MEDICARE, MEDICAID ==
--- NOTE | 2018-02-23 11:55 | Diagnostic Imaging Report ---
INDICATION: Routine screening. COMPARISON is made with prior mammogram from 11/25/2015 and 06/08/2013. 2-D and 3-D bilateral screening mammography was performed with CAD. Scattered fibroglandular densities are identified bilaterally. The parenchymal pattern is stable. No mass or malignant appearing microcalcifications are seen. There are benign calcifications present. The axillae are unremarkable. IMPRESSION: BI-RADS category 2. No mammographic features suspicious for malignancy are identified. ACR BI-RADS Category 2: Benign findings. Result letter will be mailed to the patient. Note: At least 10% of breast cancer is not imaged by mammography. Dictated by: Dictated on workstation # [id number]
--- NOTE | 2018-02-23 12:45 | Diagnostic Imaging Report ---
EXAM: DEXA scan INDICATION: Screening for osteoporosis. There are no prior studies available for comparison. The bone density of the hips and spine was measured. The T score for the spine is -2.8. The T score for the left hip is -2.5 and for the right hip is -2.7. All these values indicate osteoporosis. IMPRESSION: There is osteoporosis of the hips and spine. Dictated by: Dictated on workstation # [id number]
== END ==
LOC: RAD 09:59
PROVIDERS: ATTEND Internal Medicine
DX: Z12.31 Encounter for screening mammogram for malignant neoplasm of breast (principal); M81.0 Age-related osteoporosis without current pathological fracture; Z82.62 Family history of osteoporosis
CPT/HCPCS: 77067; 77080

== ENCOUNTER 2018-03-07 17:39 | Emergency (ER) | payer MEDICARE, MEDICAID ==
[~2018-03-07] VITALS: Ht 157.5 cm; Wt 100.2 kg
--- OUTSIDE RECORDS SUMMARY | 2018-03-07 17:46 | XMS REPORT ---
Author Author JOE BAI Organization [facility] Address [address] [place] [address] Care Team Providers Care Manager Sterile Name Role Phone JOE BAI Unavailable PROBLEMS Type Condition ICD9-CM Code YTP86-DO Code Onset Dates Condition Status SNOMED Code Problem Reactive depression F32.9 Active 49376130 Problem Plantar wart of right foot B07.0 Active 88989906 Problem Gastroesophageal reflux disease, esophagitis presence not specified K21.9 Active 513044960 Problem Internal derangement of right knee M23.91 Active [id number] Problem Abnormal laboratory test R89.9 Active 879223725 Problem Mixed hyperlipidemia E78.2 Active 265664583 Problem Rosacea L71.9 Active 808815217 Problem Mild episode of recurrent major depressive disorder F33.0 Active 091800453 Problem Generalized anxiety disorder F41.1 Active 29914897 Problem Hypothyroidism, unspecified type E03.9 Active 16285969 Problem Right elbow pain M25.521 Active 66987358 Problem Right wrist pain M25.531 Active 67795066 Problem Reflex sympathetic dystrophy G90.50 Active 47259725 Problem Venous insufficiency I87.2 Active 42493736 Problem Fibromyalgia M79.7 Active 182316601 Problem Arthritis M19.90 Active 9944761 ALLERGIES No Information ENCOUNTERS Encounter Location Date Diagnosis [facility] [address] [address] Mar, [facility] [id number] [place] [address] 33712- 9255 Mar, [facility] [id number] [place] [address] 49892- 6846 Feb, [facility] [address], [place] [address] Feb, [facility] [address] [place] [address] 09211- 2456 13 Feb, 2018 Fibromyalgia M79.7 [facility] [address] 65911- 6432 Feb, Generalized anxiety disorder F41.1 and Mild episode of recurrent major depressive disorder F33.0 [facility] [address] [place] [id number] [place] [address] 88152- 5490 Feb, [facility] [address] [place] [id number] [place] [address] 16195- 6825 Feb, Bronchospasm J98.01 and Arthritis M19.90 [facility] [address] 12337- 3746 Jan, Medicare annual wellness visit, initial Z00.00 ; Reactive depression F32.9 ; Reflex sympathetic dystrophy G90.50 ; Fibromyalgia M79.7 ; BMI 40.0-44.9, adult Z68.41 ; Hypothyroidism, unspecified type E03.9 ; Gastroesophageal reflux disease, esophagitis presence not specified K21.9 ; Family history of osteoporosis Z82.62 ; Venous insufficiency I87.2 ; Arthritis M19.90 ; Mixed hyperlipidemia E78.2 and Generalized anxiety disorder F41.1 [facility] [address] [place] [id number] [place] [address] 70407- 1025 Jan, Generalized anxiety disorder F41.1 and Mild episode of recurrent major depressive disorder F33.0 [facility] [address] [place] [address] 77603- 7274 Jan, Mild episode of recurrent major depressive disorder F33.0 and Generalized anxiety disorder F41.1 [facility] [address] [place] [id number] [place] [address] 00964- 7998 Jan, Fibromyalgia M79.7 [facility] [address] [place] [id number] [place] [address] 73500- 0895 Jan, Bronchospasm J98.01 [facility] [address] [place] [id number] [place] [address] 53529- 0976 Jan, [facility] [address], [place] [address] 3337 Jan, Generalized anxiety disorder F41.1 and Mild episode of recurrent major depressive disorder F33.0 [facility] [address], [place] [address] 3046 Jan, Bronchitis J40 [facility] [id number] [place] [address] 07079- 9658 Dec, Mild episode of recurrent major depressive disorder F33.0 [facility] [id number] [place] [address] 75245- 1083 Dec, Generalized anxiety disorder F41.1 and Mild episode of recurrent major depressive disorder F33.0 [facility] [id number] [place] [address] 62924- 3821 Dec, Fibromyalgia M79.7 ; Arthritis M19.90 and Generalized anxiety disorder F41.1 [facility] [id number] [place] [address] 46534- 6990 Dec, Mild episode of recurrent major depressive disorder F33.0 and Generalized anxiety disorder F41.1 [facility] [id number] [place] [address] 64345- 8174 Dec, Fibromyalgia M79.7 [facility] [address] [place] [address] 15800- 9919 Dec, Bronchitis J40 and Internal derangement of right knee M23.91 [facility] [address], [place] [address] Dec, Cough R05 [facility] [id number] [place] [address] 98126- 6209 Dec, Generalized anxiety disorder F41.1 and Mild episode of recurrent major depressive disorder F33.0 [facility] [address], [place] [address] 0712 Dec, [facility] [address], [place] [address] 08 Dec, 2017 [facility] [address] [place] [address] 56525- 9930 Dec, Mild episode of recurrent major depressive disorder F33.0 and Generalized anxiety disorder F41.1 [facility] [address], [place] [address]- 1045 30 Nov, 2017 [facility] [id number] [place] [address] 13504- 2743 Nov, [facility] [address], [place] [address] 8114 Nov, [facility] [id number] [place] [address] 97200- 9526 Nov, Internal derangement of right knee M23.91 [facility] [address] [address] [id number] [place] [address] 29532- 4138 Nov, Generalized anxiety disorder F41.1 and Mild episode of recurrent major depressive disorder F33.0 [facility] [address], [place] [address]- 3686 Nov, Internal derangement of right knee M23.91 [facility] [address], [place] [address] Nov, Acute right ankle pain M25.571 ; Acute pain of right knee M25.561 ; Acute left-sided low back pain without sciatica M54.5 and Right leg pain M79.604 [facility] [address], [place] [address]- 9829 15 Nov, 2017 [facility] [id number] [place] [address] 41217- 1378 14 Nov, 2017 Fibromyalgia M79.7 [facility] [address], [place] [address]- 0754 13 Nov, 2017 Generalized anxiety disorder F41.1 and Mild episode of recurrent major depressive disorder F33.0 [facility] [address] [place] [id number] [place] [address] 82289- 9588 Nov, [facility] [address] 77232- 9944 October, Generalized anxiety disorder F41.1 and Mild episode of recurrent major depressive disorder F33.0 [facility] [address] [address] [id number] [place] [address] 36959- 3309 October, Fibromyalgia M79.7 [facility] [address] [address] [id number] [place] [address] 11617- 3144 October, [facility] [address] 94734- 1125 October, Generalized anxiety disorder F41.1 and Mild episode of recurrent major depressive disorder F33.0 [facility] [address] [id number] [place] [address] 86552- 9255 October, [facility] [address] [place] [id number] [place] [address] 81309- 2740 Sep, Gastroesophageal reflux disease, esophagitis presence not specified K21.9 and Abnormal laboratory test R89.9 [facility] [address] [id number] [place] [address] 61970- 3849 Sep, Fibromyalgia M79.7 [facility] [address] [id number] [place] [address] 60904- 4296 Sep, Generalized anxiety disorder F41.1 and Mild episode of recurrent major depressive disorder F33.0 [facility] [address] [place] [id number] [place] [address] 92584- 9582 Sep, Epigastric pain R10.13 [facility] [address] [place] [id number] [place] [address] 79273- 9356 Sep, Mild episode of recurrent major depressive disorder F33.0 and Generalized anxiety disorder F41.1 [facility] [address] [place] [id number] [place] [address] 02062- 1201 Sep, Abnormal laboratory test R89.9 [facility] [id number] [place] [address] 28725- 8527 Sep, Generalized anxiety disorder F41.1 and Mild episode of recurrent major depressive disorder F33.0 [facility] [id number] [place] [address] 32179- 6819 29 Aug, 2017 Epigastric pain R10.13 and Encounter for therapeutic drug level monitoring Z51.81 [facility] [address] [id number] [place] [address] 85354 -8799 Aug, Epigastric pain R10.13 and Gastro-esophageal reflux disease without esophagitis K21.9 [facility] [address] [place] [id number] [place] [address] 91210- 0176 Aug, [facility] [address] 42206- 3212 Aug, Epigastric pain R10.13 [facility] [address] [place] [id number] [place] [address] 19061- 2373 Aug, Fibromyalgia M79.7 [facility] [address] 01847- 1148 14 Aug, 2017 [facility] [address] [place] [id number] [place] [address] 57269- 4272 Aug, Generalized anxiety disorder F41.1 and Mild episode of recurrent major depressive disorder F33.0 [facility] [address] [place] [id number] [place] [address] 63900- 9824 08 Aug, 2017 Epigastric pain R10.13 ; Reflex sympathetic dystrophy G90.50 and Arthritis M19.90 [facility] [address] 10539- 8096 Jul, Generalized anxiety disorder F41.1 and Mild episode of recurrent major depressive disorder F33.0 [facility] [address] [place] [id number] [place] [address] 87904- 1650 Jul, BMI 40.0-44.9, adult Z68.41 ; Mild episode of recurrent major depressive disorder F33.0 and Generalized anxiety disorder F41.1 [facility] [address] [place] [address] 57297 2546 Jul, Fibromyalgia M79.7 [facility] [address] [place] [address] 63584 2546 Jun, Mild episode of recurrent major depressive disorder F33.0 and Generalized anxiety disorder F41.1 [facility] [id number] [place] [address] 74330 2546 Jun, Fibromyalgia M79.7 [facility] [address] [id number] [place] [address] 82979 2546 Jun, Generalized anxiety disorder F41.1 and Mild episode of recurrent major depressive disorder F33.0 [facility] [id number] [place] [address] 32665 2546 Jun, Generalized anxiety disorder F41.1 and Mild episode of recurrent major depressive disorder F33.0 [facility] [address] [place] [address] 97753 2546 Jun, Generalized anxiety disorder F41.1 and Mild episode of recurrent major depressive disorder F33.0 [facility] [address] [place] [address] 12529 2546 Jun, [facility] [address] [place] [address] 64204 2546 Jun, Generalized anxiety disorder F41.1 and Mild episode of recurrent major depressive disorder F33.0 [facility] [address] [place], [place] [address] 2546 May, Fibromyalgia M79.7 [facility] [address] [place] [id number] [place] [address] 54712 2546 May, Generalized anxiety disorder F41.1 and Mild episode of recurrent major depressive disorder F33.0 [facility] [address] [place] [address] 30578- 4778 May, Mixed hyperlipidemia E78.2 ; Arthritis M19.90 ; Reactive depression F32.9 and Hypothyroidism, unspecified type E03.9 [facility] [address] 64714- 4146 May, Arthritis M19.90 ; Reactive depression F32.9 ; Mixed hyperlipidemia E78.2 and Hypothyroidism, unspecified type E03.9 [facility] [address] 86507- 9846 Apr, Fibromyalgia M79.7 [facility] [address] 57528- 6469 Apr, [facility] [address] 71571- 5998 Apr, Fibromyalgia M79.7 [facility] [address] 66905- 1961 Mar, Fibromyalgia M79.7 [facility] [address] 40556- 7040 Mar, [facility] [address] 67815- 7610 Mar, Fibromyalgia M79.7 [facility] [id number] [place] [address] 74846- 7693 Mar, [facility] [address] 30244- 1312 Feb, Reflex sympathetic dystrophy G90.50 ; Right arm pain M79.601 and Fibromyalgia M79.7 [facility] [address] [id number] [place] [address] 18672- 5826 Feb, [facility] [address] 94380- 9961 Feb, Anxiety F41.9 [facility] [id number] [place] [address] 01075- 5317 Feb, Fibromyalgia M79.7 [facility] [address] [id number] [place] [address] 73500- 6146 Feb, [facility] [address] 99088- 6824 Feb, [facility] [address] 78714- 1401 Jan, Temporal headache R51 [facility] [address] 78091- 8166 Jan, Fibromyalgia M79.7 [facility] [address] 12334- 8733 Dec, Fibromyalgia M79.7 [facility] [address] 91387- 2787 Nov, Peroneal tendonitis, unspecified laterality M76.70 and Plantar fasciitis, bilateral M72.2 [facility] [address] 83074- 1738 Nov, Fibromyalgia M79.7 [facility] [id number] [place] [address] 11731- 4004 October, Fibromyalgia M79.7 [facility] [address] 85993- 2902 October, Plantar fasciitis, bilateral M72.2 and Peroneal tendonitis, unspecified laterality M76.70 [facility] [address] [id number] [place] [address] 61771- 9487 October, Fibromyalgia M79.7 [facility] [address] [address] [place] [address] 69463- 2317 Sep, Anxiety F41.9 [facility] [address] 44724- 2397 Aug, Anxiety F41.9 and Adjustment disorder with anxiety F43.22 [facility] [address] 32032- 2158 Aug, Pain of left foot M79.672 [facility] [address] 56543- 1834 Aug, Pain of left foot M79.672 and Pain in right foot M79.671 [facility] [address] 41935- 8512 Aug, Arthritis M19.90 ; Reactive depression F32.9 ; Fibromyalgia M79.7 ; Rosacea L71.9 ; Pain in right foot M79.671 and Pain of left foot M79.672 [facility] [address] 53647- 0220 Aug, Anxiety F41.9 ; Adjustment disorder with anxiety F43.22 and Reactive depression F32.9 [facility] [address] 69280- 7929 Aug, Right elbow pain M25.521 [facility] [address] 87059- 7687 Aug, Plantar wart of right foot B07.0 and Actinic keratosis L57.0 [facility] [address] 99108- 0539 Aug, Fibromyalgia M79.7 [facility] [address] 09389- 1203 Jul, Arthritis M19.90 ; Hypothyroidism, unspecified type E03.9 ; Reactive depression F32.9 and Venous insufficiency I87.2 [facility] [address] 24714- 3779 Jul, Gastroesophageal reflux disease, esophagitis presence not specified K21.9 [facility] [address] 19557- 1973 Jul, Reflex sympathetic dystrophy G90.50 [facility] [address] 82382- 7531 17 Jul, 2016 Anxiety F41.9 ; Adjustment disorder with anxiety F43.22 and Reactive depression F32.9 [facility] [address] 92381- 8688 Jul, [facility] [address] 04098- 3647 Jul, Right elbow pain M25.521 [facility] [address] 75380- 9743 Jun, Fibromyalgia M79.7 [facility] [address] 22542- 6402 Jun, Anxiety F41.9 ; Adjustment disorder with anxiety F43.22 and Reactive depression F32.9 [facility] [address] 64401- 2884 Jun, [facility] [address] 59508- 0902 Jun, Atypical chest pain R07.89 and Adjustment disorder with anxiety F43.22 [facility] [address] [id number] Jun, Chest pain, unspecified type R07.9 [facility] [address] 93520- 9231 Jun, Fibromyalgia M79.7 [facility] [address] 30314- 9105 May, Anxiety F41.9 [facility] [address] 25877- 3546 May, [facility] [address] 38312- 0017 May, Right elbow pain M25.521 [facility] [address] 51404- 0394 Apr, Reflex sympathetic dystrophy G90.50 and Encounter for immunization Z23 [facility] [address] [place] [address] 63657- 5137 Apr, [facility] [id number] [place] [address] 05979- 7657 Mar, [facility] [address] [place] [address] 76943- 1161 Feb, [facility] [address] [place] [address] 57682- 1858 Feb, [facility] [address] [place] [address] 58152- 8672 Jan, [facility] [address] [place] [address] 26345- 1281 Jan, Right elbow pain M25.521 and Right wrist pain M25.531 [facility] [address] [place] [address] 81127- 4127 Jan, [facility] [address] [place] [address] 23604- 8123 Dec, Seborrheic keratoses L82.1 [facility] [id number] [place] [address] 10394- 3004 Dec, [facility] [address] [place] [address] 25501- 9643 Dec, [facility] [address] [place] [address] 75517- 2668 Dec, [facility] [address] [place] [address] 69783- 3824 Dec, Fibromyalgia M79.7 and Hypothyroidism, unspecified type E03.9 [facility] [address] [place] [address] 70102- 6423 Dec, Seborrheic keratoses L82.1 [facility] [id number] [place] [address] 14241- 8528 Dec, [facility] [address] [facility] [id number] [address]- 2286 Dec, [facility] [address], [place] [address]- 4574 Nov, Sebaceous cyst L72.3 [facility] [address], [place] [address]- 0786 October, Breast cancer screening Z12.39 [facility] [address] [place] [address]- 8689 October, Fibromyalgia M79.7 ; Hypothyroidism, unspecified type E03.9 and Reflex sympathetic dystrophy G90.50 [facility] [place] [address], [place] [address]- 2943 October, Reflex sympathetic dystrophy G90.50 ; Fibromyalgia M79.7 and Hypothyroidism, unspecified type E03.9 IMMUNIZATIONS No Known Immunizations SOCIAL HISTORY Never Assessed REASON FOR VISIT Refill request PLAN OF CARE VITAL SIGNS MEDICATIONS Medication Instructions Dosage Frequency Start Date End Date Duration Status HydrOXYzine HCl 10MG Orally three times a day as needed for anxiety and sleep 1 tablet Active RESULTS No Results PROCEDURES No Known [...] sympathetic dystrophy Medical History 2 mild concussions Medical History Plica Syndrom right knee Surgical History tonsillectomy Surgical History appendectomy Surgical History section Surgical History hysterectomy, abdominal Surgical History carpal tunnel release Surgical History cholecystectomy Surgical History colon resection Hospitalization History surgeries Hospitalization History [facility] 07/02/16 Hospitalization History Chest Pain - [facility] 10/06/17
--- OUTSIDE RECORDS SUMMARY | 2018-03-07 17:46 | XMS REPORT ---
Author Author FRANK CHAPMAN Organization [facility] [place] Address [address] [place] [address] Care Team Providers Care Sidehand Name Role Phone FRANK CHAPMAN Unavailable PROBLEMS Type Condition ICD9-CM Code QNG87-SR Code Onset Dates Condition Status SNOMED Code Problem Reactive depression F32.9 Active 88649912 Problem Plantar wart of right foot B07.0 Active 43817888 Problem Gastroesophageal reflux disease, esophagitis presence not specified K21.9 Active 232062313 Problem Internal derangement of right knee M23.91 Active 158082988027827 Problem Abnormal laboratory test R89.9 Active 224813732 Problem Mixed hyperlipidemia E78.2 Active 569136366 Problem Rosacea L71.9 Active 123592361 Problem Mild episode of recurrent major depressive disorder F33.0 Active 443443908 Problem Generalized anxiety disorder F41.1 Active 73365848 Problem Hypothyroidism, unspecified type E03.9 Active 05574381 Problem Right elbow pain M25.521 Active 61438730 Problem Right wrist pain M25.531 Active 95762393 Problem Reflex sympathetic dystrophy G90.50 Active 62257094 Problem Venous insufficiency I87.2 Active 50437309 Problem Fibromyalgia M79.7 Active 551811983 Problem Arthritis M19.90 Active 1088519 ALLERGIES No Information ENCOUNTERS Encounter Location Date Diagnosis [facility] [place] [id number], [place] [address] Mar, [facility] [place] [address], [place] [address] Mar, [facility] [place] [address], [place] [address] Feb, [facility] [place] [address], [place] [address] Feb, [facility] [place] [id number] [place] [address] 38278- 4135 Feb, Fibromyalgia M79.7 [place] [address] [address]59- 8492 Feb, Generalized anxiety disorder F41.1 and Mild episode of recurrent major depressive disorder F33.0 [place] [address] 75125- 0096 Feb, [place] [address] 52713- 5958 Feb, Bronchospasm J98.01 and Arthritis M19.90 [place] [address] 49396- 8273 Jan, Medicare annual wellness visit, initial Z00.00 ; Reactive depression F32.9 ; Reflex sympathetic dystrophy G90.50 ; Fibromyalgia M79.7 ; BMI 40.0-44.9, adult Z68.41 ; Hypothyroidism, unspecified type E03.9 ; Gastroesophageal reflux disease, esophagitis presence not specified K21.9 ; Family history of osteoporosis Z82.62 ; Venous insufficiency I87.2 ; Arthritis M19.90 ; Mixed hyperlipidemia E78.2 and Generalized anxiety disorder F41.1 [place] [id number] [place] [address] 46648- 4490 Jan, Generalized anxiety disorder F41.1 and Mild episode of recurrent major depressive disorder F33.0 [place] [id number] [place] [address] 43486- 4596 Jan, Mild episode of recurrent major depressive disorder F33.0 and Generalized anxiety disorder F41.1 [place] [id number] [place] [address] 12160- 3165 Jan, Fibromyalgia M79.7 [place] [id number] [place] [address] 29529- 2998 Jan, Bronchospasm J98.01 [place] [id number] [place] [address] 93156- 4076 Jan, [facility] [place] [address], [place] [address] 2408 Jan, Generalized anxiety disorder F41.1 and Mild episode of recurrent major depressive disorder F33.0 [facility] [place] [id number], [place] [address] Jan, Bronchitis J40 [facility] [place] [id number] [place] [address] 95318- 1502 Dec, Mild episode of recurrent major depressive disorder F33.0 [facility] [place] [id number] [place] [address] 30149- 3181 Dec, Generalized anxiety disorder F41.1 and Mild episode of recurrent major depressive disorder F33.0 [facility] [place] [id number] [place] [address] 00856- 0945 Dec, Fibromyalgia M79.7 ; Arthritis M19.90 and Generalized anxiety disorder F41.1 [facility] [place] [id number] [place] [address] 21545- 0094 Dec, Mild episode of recurrent major depressive disorder F33.0 and Generalized anxiety disorder F41.1 [facility] [place] [id number] [place] [address] 78525- 1225 Dec, Fibromyalgia M79.7 [facility] [place] [id number] [place] [address] 72901- 1264 Dec, Bronchitis J40 and Internal derangement of right knee M23.91 [facility] [id number] [place] [address] 58391 -4004 Dec, Cough R05 [facility] [place] [id number] [place] [address] 02068- 8299 Dec, Generalized anxiety disorder F41.1 and Mild episode of recurrent major depressive disorder F33.0 [facility] [place] [id number], [place] [address] Dec, [facility] [address], [place] [address] 08 Dec, 2017 [facility] [place] [id number] [place] [address] 10280- 5656 Dec, Mild episode of recurrent major depressive disorder F33.0 and Generalized anxiety disorder F41.1 [facility] [place] [address], [place] [address] 8758 Nov, [facility] [place] [id number] [place] [address] 28875- 7490 Nov, [facility] [place] [id number] [place] [address] 15196- 0978 Nov, [facility] [place] [id number] [place] [address] 36109- 2532 Nov, Internal derangement of right knee M23.91 [facility] [place] [id number] [place] [address] 32241- 5289 Nov, Generalized anxiety disorder F41.1 and Mild episode of recurrent major depressive disorder F33.0 [facility] [place] [address], [place] [address] 9907 Nov, Internal derangement of right knee M23.91 [facility] [address], [place] [address] Nov, Acute right ankle pain M25.571 ; Acute pain of right knee M25.561 ; Acute left-sided low back pain without sciatica M54.5 and Right leg pain M79.604 [facility] [place] [address], [place] [address] 5315 15 Nov, 2017 [facility] [place] [id number] [place] [address] 48096- 4061 14 Nov, 2017 Fibromyalgia M79.7 [facility] [place] [address], [place] [address]- 6366 13 Nov, 2017 Generalized anxiety disorder F41.1 and Mild episode of recurrent major depressive disorder F33.0 [facility] [place] [id number] [place] [address] 63391- 9693 Nov, [facility] [place] [address] 00939- 8172 October, Generalized anxiety disorder F41.1 and Mild episode of recurrent major depressive disorder F33.0 [facility] [place] [id number] [place] [address] 27728- 0556 October, Fibromyalgia M79.7 [facility] [place] [id number] [place] [address] 79755- 6663 October, [place] [address] 70989- 3947 October, Generalized anxiety disorder F41.1 and Mild episode of recurrent major depressive disorder F33.0 [place] [id number] [place] [address] 16575- 8519 October, [facility] [place] [address] 95210- 0505 Sep, Gastroesophageal reflux disease, esophagitis presence not specified K21.9 and Abnormal laboratory test R89.9 [place] [id number] [place] [address] 04119- 5523 Sep, Fibromyalgia M79.7 [facility] [place] [id number] [place] [address] 41599- 4989 Sep, Generalized anxiety disorder F41.1 and Mild episode of recurrent major depressive disorder F33.0 [place] [id number] [place] [address] 87849- 9662 Sep, Epigastric pain R10.13 [place] [id number] [place] [address] 48846- 2631 10 Sep, 2017 Mild episode of recurrent major depressive disorder F33.0 and Generalized anxiety disorder F41.1 [place] [id number] [place] [address] 97074- 7631 Sep, Abnormal laboratory test R89.9 [facility] [place] [id number] [place] [address] 33593- 2214 02 Sep, 2017 Generalized anxiety disorder F41.1 and Mild episode of recurrent major depressive disorder F33.0 [facility] [place] [id number] [place] [address] 35054- 8332 29 Aug, 2017 Epigastric pain R10.13 and Encounter for therapeutic drug level monitoring Z51.81 [facility] [id number] [place] [address] 24746 -1764 Aug, Epigastric pain R10.13 and Gastro-esophageal reflux disease without esophagitis K21.9 [place] [address] 68959- 2196 22 Aug, 2017 [place] [address] 58557- 1795 Aug, Epigastric pain R10.13 [place] [address] 90585- 4495 Aug, Fibromyalgia M79.7 [place] [address] 88214- 4491 14 Aug, 2017 [place] [id number] [place] [address] 89238- 8291 14 Aug, 2017 Generalized anxiety disorder F41.1 and Mild episode of recurrent major depressive disorder F33.0 [place] [id number] [place] [address] 76391- 8224 08 Aug, 2017 Epigastric pain R10.13 ; Reflex sympathetic dystrophy G90.50 and Arthritis M19.90 [place] [id number] [place] [address] 26099- 7435 Jul, Generalized anxiety disorder F41.1 and Mild episode of recurrent major depressive disorder F33.0 [facility] [place] [address] 76146- 9643 Jul, BMI 40.0-44.9, adult Z68.41 ; Mild episode of recurrent major depressive disorder F33.0 and Generalized anxiety disorder F41.1 [facility] [place] [id number] [place] [address] 45682 2546 Jul, Fibromyalgia M79.7 [facility] [place] [id number], [place] [address] 2546 Jun, Mild episode of recurrent major depressive disorder F33.0 and Generalized anxiety disorder F41.1 [facility] [place] [id number] [place] [address] 17187 2546 Jun, Fibromyalgia M79.7 [facility] [place] [id number] [place] [address] 47528 2546 Jun, Generalized anxiety disorder F41.1 and Mild episode of recurrent major depressive disorder F33.0 [facility] [place] [address] [place] [address] 92249 2546 Jun, Generalized anxiety disorder F41.1 and Mild episode of recurrent major depressive disorder F33.0 [facility] [place] [address] [place] [address] 99154 2546 Jun, Generalized anxiety disorder F41.1 and Mild episode of recurrent major depressive disorder F33.0 [facility] [place] [id number] [place] [address] 91701 2546 Jun, [facility] [place] [id number] [place] [address] 19366 2546 Jun, Generalized anxiety disorder F41.1 and Mild episode of recurrent major depressive disorder F33.0 [facility] [place] [id number], [place] [address] 2546 May, Fibromyalgia M79.7 [facility] [place] [id number] [place] [address] 95022 2546 May, Generalized anxiety disorder F41.1 and Mild episode of recurrent major depressive disorder F33.0 [facility] [place] [id number] [place] [address] 556451- 7354 May, Mixed hyperlipidemia E78.2 ; Arthritis M19.90 ; Reactive depression F32.9 and Hypothyroidism, unspecified type E03.9 [facility] [place] [address] 17408- 2983 May, Arthritis M19.90 ; Reactive depression F32.9 ; Mixed hyperlipidemia E78.2 and Hypothyroidism, unspecified type E03.9 [facility] [place] [address] 43959- 6803 Apr, Fibromyalgia M79.7 [facility] [place] [address] 21293- 8841 Apr, [facility] [place] [address] 90959- 4601 Apr, Fibromyalgia M79.7 [facility] [place] [address] 76630- 2822 Mar, Fibromyalgia M79.7 [facility] [place] [address] 50312- 6294 Mar, [facility] [place] [address] 03252- 3216 Mar, Fibromyalgia M79.7 [facility] [place] [address] 10774- 4243 Mar, [facility] [place] [address] 60700- 5710 Feb, Reflex sympathetic dystrophy G90.50 ; Right arm pain M79.601 and Fibromyalgia M79.7 [facility] [place] [id number] [place] [address] 12908- 1595 Feb, [facility] [place] [address] 32192- 3377 Feb, Anxiety F41.9 [facility] [place] [id number] [place] [address] 41664- 4093 Feb, Fibromyalgia M79.7 [facility] [place] [id number] [place] [address] 63395- 3561 Feb, [facility] [place] [id number] [place] [address] 75557- 2519 Feb, [facility] [place] [id number] [place] [address] 28570- 4915 Jan, Temporal headache R51 [facility] [place] [address] 34952- 6951 Jan, Fibromyalgia M79.7 [facility] [place] [id number] [place] [address] 89587- 4131 Dec, Fibromyalgia M79.7 [facility] [place] [id number] [place] [address] 50663- 1330 Nov, Peroneal tendonitis, unspecified laterality M76.70 and Plantar fasciitis, bilateral M72.2 [place] [id number] [place] [address] 22190- 6470 Nov, Fibromyalgia M79.7 [facility] [place] [id number] [place] [address] 60505- 9555 October, Fibromyalgia M79.7 [facility] [place] [id number] [place] [address] 36923- 7541 October, Plantar fasciitis, bilateral M72.2 and Peroneal tendonitis, unspecified laterality M76.70 [facility] [place] [id number] [place] [address] 08021- 2030 October, Fibromyalgia M79.7 [facility] [place] [id number] [place] [address] 54305- 9613 Sep, Anxiety F41.9 [facility] [place] [id number] [place] [address] 24550- 7375 Aug, Anxiety F41.9 and Adjustment disorder with anxiety F43.22 [facility] [place] [id number] [place] [address] 45266- 6051 Aug, Pain of left foot M79.672 [place] [address] 00568- 5250 Aug, Pain of left foot M79.672 and Pain in right foot M79.671 [place] [address] 04130- 8570 Aug, Arthritis M19.90 ; Reactive depression F32.9 ; Fibromyalgia M79.7 ; Rosacea L71.9 ; Pain in right foot M79.671 and Pain of left foot M79.672 [place] [address] 80771- 6850 Aug, Anxiety F41.9 ; Adjustment disorder with anxiety F43.22 and Reactive depression F32.9 [place] [address] 65443- 7394 Aug, Right elbow pain M25.521 [place] [address] 10907- 6488 Aug, Plantar wart of right foot B07.0 and Actinic keratosis L57.0 [place] [address] 88782- 4887 Aug, Fibromyalgia M79.7 [place] [address] 68565- 3910 Jul, Arthritis M19.90 ; Hypothyroidism, unspecified type E03.9 ; Reactive depression F32.9 and Venous insufficiency I87.2 [place] [address] 93332- 4416 Jul, Gastroesophageal reflux disease, esophagitis presence not specified K21.9 [place] [address] 27341- 9870 Jul, Reflex sympathetic dystrophy G90.50 [place] [address] 65828- 8272 17 Jul, 2016 Anxiety F41.9 ; Adjustment disorder with anxiety F43.22 and Reactive depression F32.9 [facility] [place] [address] 38949- 8487 15 Jul, 2016 [facility] [place] [address] 09421- 7288 03 Jul, 2016 Right elbow pain M25.521 [facility] [place] [address] 84083- 3499 Jun, Fibromyalgia M79.7 [facility] [place] [address] 57293- 1413 Jun, Anxiety F41.9 ; Adjustment disorder with anxiety F43.22 and Reactive depression F32.9 [place] [address] 88605- 7655 Jun, [facility] [place] [address] 03088- 1042 Jun, Atypical chest pain R07.89 and Adjustment disorder with anxiety F43.22 [facility] [address] [id number] Jun, Chest pain, unspecified type R07.9 [facility] [place] [address] 76118- 4227 Jun, Fibromyalgia M79.7 [facility] [place] [address] 62551- 3698 May, Anxiety F41.9 [facility] [place] [id number] [place] [address] 14060- 2187 May, [place] [address] 83626- 3819 May, Right elbow pain M25.521 [facility] [place] [id number] [place] [address] 98429- 9594 Apr, Reflex sympathetic dystrophy G90.50 and Encounter for immunization Z23 [facility] [place] [address] [place] [address]- 9346 Apr, [facility] [place] [id number] [place] [address] 74976- 9526 Mar, [facility] [place] [id number] [place] [address] 71484- 0976 Feb, [facility] [place] [id number] [place] [address] 38196- 7974 Feb, [facility] [place] [id number] [place] [address] 01284- 5429 Jan, [facility] [place] [id number] [place] [address] [phone] Jan, Right elbow pain M25.521 and Right wrist pain M25.531 [facility], [place], [facility] [id number] [place] [address] [phone] Jan, [facility], [place], [facility] [id number] [place] [address] [phone] Dec, Seborrheic keratoses L82.1 [facility], [place], [facility] [id number] [place] [address] [phone] Dec, [facility], [place], [facility] [id number] [place] [address] [phone] Dec, [facility], [place], [facility] [id number] [place] [address] [phone] Dec, [facility], [place], [facility] [id number] [place] [address] [phone] Dec, Fibromyalgia M79.7 and Hypothyroidism, unspecified type E03.9 [facility], [place], [facility] [id number] [address] Dec, Seborrheic keratoses L82.1 [facility], [place], [facility] BY [facility] [id number] [place] [address]251- [address]056 Dec, [facility] [place] [address] [facility] [id number] [address] Dec, [facility] [place] [address] [id number], [place] [address] Nov, Sebaceous cyst L72.3 [facility] [place] [address] [id number], [place] [address] October, Breast cancer screening Z12.39 [facility] [place] [address] [id number], [place] [address] October, Fibromyalgia M79.7 ; Hypothyroidism, unspecified type E03.9 and Reflex sympathetic dystrophy G90.50 [facility] [place] [address] [facility] [id number], [place] [address] October, Reflex sympathetic dystrophy G90.50 ; Fibromyalgia M79.7 and Hypothyroidism, unspecified type E03.9 IMMUNIZATIONS No Known Immunizations SOCIAL HISTORY Never Assessed REASON FOR VISIT f/u PLAN OF CARE Activity Details Follow Up 2 Weeks Reason:depression & anxiety VITAL SIGNS MEDICATIONS Unknown Medications RESULTS No Results PROCEDURES Procedure Date Ordered Result Body Site [facility] VISIT MENTAL HEALTH ESTAB PT Jan 23, 2018 Psychotherapy, patient &/family, 45 minutes, established patient Jan 23, 2018 INSTRUCTIONS MEDICATIONS ADMINISTERED No Known Medications MEDICAL [...]
--- OUTSIDE RECORDS SUMMARY | 2018-03-07 17:47 | XMS REPORT ---
Author Author BAMBI POLLY Organization [facility] Address [address] [place] [address] Care Team Providers Care Safety Teacher Name Role Phone MANAVKAYA VARMAA Unavailable PROBLEMS Type Condition ICD9-CM Code YCP00-GJ Code Onset Dates Condition Status SNOMED Code Problem Reactive depression F32.9 Active 03737288 Problem Plantar wart of right foot B07.0 Active 48879344 Problem Gastroesophageal reflux disease, esophagitis presence not specified K21.9 Active 921841918 Problem Internal derangement of right knee M23.91 Active [id number] Problem Abnormal laboratory test R89.9 Active 218579286 Problem Mixed hyperlipidemia E78.2 Active 023455862 Problem Rosacea L71.9 Active 262828401 Problem Mild episode of recurrent major depressive disorder F33.0 Active 545032339 Problem Generalized anxiety disorder F41.1 Active 69410649 Problem Hypothyroidism, unspecified type E03.9 Active 35474780 Problem Right elbow pain M25.521 Active 28412726 Problem Right wrist pain M25.531 Active 57651269 Problem Reflex sympathetic dystrophy G90.50 Active 11316618 Problem Venous insufficiency I87.2 Active 66411718 Problem Fibromyalgia M79.7 Active 813395873 Problem Arthritis M19.90 Active 9113149 ALLERGIES No Information ENCOUNTERS Encounter Location Date Diagnosis [facility] [address] [facility] [id number], [place] [address] Mar, [facility] [address] [id number], [place] [address] Feb, [facility] [address], [place] [address] Feb, [facility] [address] [id number], [place] [address] Feb, [address] [id number] [place] [address] 63160- 1246 Feb, [address] [address] [address]- [address] Jan, Medicare annual wellness visit, initial Z00.00 ; Reactive depression F32.9 ; Reflex sympathetic dystrophy G90.50 ; Fibromyalgia M79.7 ; BMI 40.0-44.9, adult Z68.41 ; Hypothyroidism, unspecified type E03.9 ; Gastroesophageal reflux disease, esophagitis presence not specified K21.9 ; Family history of osteoporosis Z82.62 ; Venous insufficiency I87.2 ; Arthritis M19.90 ; Mixed hyperlipidemia E78.2 and Generalized anxiety disorder F41.1 [address] [address] [address]- [address] Jan, Generalized anxiety disorder F41.1 and Mild episode of recurrent major depressive disorder F33.0 [address] [address] 8[address]57- 7084 Jan, Mild episode of recurrent major depressive disorder F33.0 and Generalized anxiety disorder F41.1 [address] [address] 14320- 3745 Jan, Fibromyalgia M79.7 [place] [id number] [place] [address] 96557- 4925 Jan, Bronchospasm J98.01 [place] [id number] [place] [address] 15625- 1700 Jan, [address] [id number] [place] [address] 34579- 2758 Jan, Generalized anxiety disorder F41.1 and Mild episode of recurrent major depressive disorder F33.0 [place] [id number] [place] [address] 67465- 3649 Jan, Bronchitis J40 [address] [id number] [place] [address] 07922- 2671 Dec, Mild episode of recurrent major depressive disorder F33.0 [facility] [id number] [place] [address] 32615- 7455 Dec, Generalized anxiety disorder F41.1 and Mild episode of recurrent major depressive disorder F33.0 [facility] [id number] [place] [address] 16975- 4529 Dec, Fibromyalgia M79.7 ; Arthritis M19.90 and Generalized anxiety disorder F41.1 [facility] [id number] [place] [address] 90842- 1356 Dec, Mild episode of recurrent major depressive disorder F33.0 and Generalized anxiety disorder F41.1 [facility] [id number] [place] [address] 25844- 8723 Dec, Fibromyalgia M79.7 [facility] [id number] [place] [address] 16222- 6947 Dec, Bronchitis J40 and Internal derangement of right knee M23.91 [facility] [id number] [place] [address] 29146 -7513 Dec, Cough R05 [facility] [id number] [place] [address] 95072- 4358 Dec, Generalized anxiety disorder F41.1 and Mild episode of recurrent major depressive disorder F33.0 [facility] [id number] [place] [address] 86639- 2184 Dec, [facility] [id number] [place] [address] 52951 -3424 Dec, [facility] [id number] [place] [address] 01520- 7519 Dec, Mild episode of recurrent major depressive disorder F33.0 and Generalized anxiety disorder F41.1 [facility] [id number] [place] [address] 90196- 7747 Nov, [facility] [id number] [place] [address] 64315- 0969 Nov, [facility] [address] [facility] [id number], [place] [address] Nov, [facility] [address] [facility] [id number] [place] [address] 32318- 4706 Nov, Internal derangement of right knee M23.91 [facility] [address] [id number], [place] [address]- 3282 Nov, Generalized anxiety disorder F41.1 and Mild episode of recurrent major depressive disorder F33.0 [facility] [address] [id number], [place] [address] 6651 Nov, Internal derangement of right knee M23.91 [facility] [address] [id number], [place] [address] Nov, Acute right ankle pain M25.571 ; Acute pain of right knee M25.561 ; Acute left-sided low back pain without sciatica M54.5 and Right leg pain M79.604 [facility] [address] [id number], [place] [address] 0[address] 15 Nov, 2017 [facility] [id number] [place] [address] 24872- 4689 14 Nov, 2017 Fibromyalgia M79.7 [facility] [address] [id number], [place] [address] 8499 13 Nov, 2017 Generalized anxiety disorder F41.1 and Mild episode of recurrent major depressive disorder F33.0 [facility] [address] [id number], [place] [address]- 4729 Nov, [facility] [address] [id number], [place] [address] 7[address] 30 Oct, 2017 Generalized anxiety disorder F41.1 and Mild episode of recurrent major depressive disorder F33.0 [facility] [address] [id number], [place] [address]- 8815 October, Fibromyalgia M79.7 [facility] [id number] [place] [address] 92988- 9168 October, [facility] [id number] [place] [address] 69529- 5877 October, Generalized anxiety disorder F41.1 and Mild episode of recurrent major depressive disorder F33.0 [facility] [id number] [place] [address] 88596- 7273 October, [facility] [id number] [place] [address] 90134- 5818 Sep, Gastroesophageal reflux disease, esophagitis presence not specified K21.9 and Abnormal laboratory test R89.9 [address] [address] 70871- 3099 Sep, Fibromyalgia M79.7 [address] [id number] [place] [address] 36305- 8940 Sep, Generalized anxiety disorder F41.1 and Mild episode of recurrent major depressive disorder F33.0 [address] [id number] [place] [address] 43632- 3785 Sep, Epigastric pain R10.13 [address] [id number] [place] [address] 02424- 8508 Sep, Mild episode of recurrent major depressive disorder F33.0 and Generalized anxiety disorder F41.1 [address] [id number] [place] [address] 07859- 3086 Sep, Abnormal laboratory test R89.9 [facility] [id number] [place] [address] 70598- 1484 Sep, Generalized anxiety disorder F41.1 and Mild episode of recurrent major depressive disorder F33.0 [facility] [id number] [place] [address] 24502- 7811 Aug, Epigastric pain R10.13 and Encounter for therapeutic drug level monitoring Z51.81 [facility] [id number] [place] [address] 35040 -0860 Aug, Epigastric pain R10.13 and Gastro-esophageal reflux disease without esophagitis K21.9 [address] [address] 50355- 1151 Aug, [address] [id number] [place] [address] 49498- 1045 Aug, Epigastric pain R10.13 [address] [address] 66645- 5974 Aug, Fibromyalgia M79.7 [address] [address] 87630- 4540 Aug, [address] [address] 23957- 6890 Aug, Generalized anxiety disorder F41.1 and Mild episode of recurrent major depressive disorder F33.0 [address] [address] 89401- 0911 Aug, Epigastric pain R10.13 ; Reflex sympathetic dystrophy G90.50 and Arthritis M19.90 [address] [address] 51766- 7173 Jul, Generalized anxiety disorder F41.1 and Mild episode of recurrent major depressive disorder F33.0 [address] [address] 73246- 3292 Jul, BMI 40.0-44.9, adult Z68.41 ; Mild episode of recurrent major depressive disorder F33.0 and Generalized anxiety disorder F41.1 [place] [id number] [place] [address] 45076- 1327 Jul, Fibromyalgia M79.7 [address] [place] [address] 36082- 1844 Jun, Mild episode of recurrent major depressive disorder F33.0 and Generalized anxiety disorder F41.1 [address] [id number] [place] [address] 36603- 3463 Jun, Fibromyalgia M79.7 [facility] [id number] [place] [address] 38658- 5896 Jun, Generalized anxiety disorder F41.1 and Mild episode of recurrent major depressive disorder F33.0 [facility] [address] [place] [address] 68635- 0374 Jun, Generalized anxiety disorder F41.1 and Mild episode of recurrent major depressive disorder F33.0 [facility] [id number] [place] [address] 51341- 6424 Jun, Generalized anxiety disorder F41.1 and Mild episode of recurrent major depressive disorder F33.0 [facility] [id number] [place] [address] 40182- 9690 Jun, [facility] [id number] [place] [address] 91469- 1358 Jun, Generalized anxiety disorder F41.1 and Mild episode of recurrent major depressive disorder F33.0 [facility] [id number] [place] [address] 00958- 7864 May, Fibromyalgia M79.7 [facility] [address] [place] [address] 72404- 7096 May, Generalized anxiety disorder F41.1 and Mild episode of recurrent major depressive disorder F33.0 [facility] [id number] [place] [address] 68126- 5891 May, Mixed hyperlipidemia E78.2 ; Arthritis M19.90 ; Reactive depression F32.9 and Hypothyroidism, unspecified type E03.9 [facility] [id number] [place] [address] 69875- 8586 May, Arthritis M19.90 ; Reactive depression F32.9 ; Mixed hyperlipidemia E78.2 and Hypothyroidism, unspecified type E03.9 [facility] [address], [place] [address]- 2333 Apr, Fibromyalgia M79.7 [facility] [id number] [place] [address] 44552- 8586 Apr, [facility] [address] 40459 2546 Apr, Fibromyalgia M79.7 [facility] [address] 75586 2546 Mar, Fibromyalgia M79.7 [facility] [address] 68311 2546 Mar, [facility] [address] 83993 2548 Mar, Fibromyalgia M79.7 [facility] [id number] [place] [address] 70759 2546 Mar, [facility] [address] 86431 2543 Feb, Reflex sympathetic dystrophy G90.50 ; Right arm pain M79.601 and Fibromyalgia M79.7 [facility] [id number] [place] [address] 30783 2546 Feb, [facility] [address] 78792 2546 Feb, Anxiety F41.9 [facility] [id number] [place] [address] 64285 2546 Feb, Fibromyalgia M79.7 [facility] [id number] [place] [address] 83510 2546 Feb, [facility] [id number] [place] [address] 66483 2546 Feb, [facility] [id number] [place] [address] 03987 2546 Jan, Temporal headache R51 [facility] [address] 89787 2547 Jan, Fibromyalgia M79.7 [facility] [id number] [place] [address] 24018- 0769 Dec, Fibromyalgia M79.7 [facility] [id number] [place] [address] 40026- 6655 Nov, Peroneal tendonitis, unspecified laterality M76.70 and Plantar fasciitis, bilateral M72.2 [address] [address] 67305- 5123 Nov, Fibromyalgia M79.7 [place] [address] 32274- 6655 October, Fibromyalgia M79.7 [facility] [id number] [place] [address] 96288- 8237 October, Plantar fasciitis, bilateral M72.2 and Peroneal tendonitis, unspecified laterality M76.70 [address] [address] 83078- 5218 October, Fibromyalgia M79.7 [place] [id number] [place] [address] 64981- 0205 Sep, Anxiety F41.9 [place] [id number] [place] [address] 78924- 3142 Aug, Anxiety F41.9 and Adjustment disorder with anxiety F43.22 [place] [id number] [place] [address] 65361- 6850 Aug, Pain of left foot M79.672 [place] [id number] [place] [address] 34460- 7549 Aug, Pain of left foot M79.672 and Pain in right foot M79.671 [place] [id number] [place] [address] 07249- 0569 Aug, Arthritis M19.90 ; Reactive depression F32.9 ; Fibromyalgia M79.7 ; Rosacea L71.9 ; Pain in right foot M79.671 and Pain of left foot M79.672 [place] [address] 83567- 5579 Aug, Anxiety F41.9 ; Adjustment disorder with anxiety F43.22 and Reactive depression F32.9 [place] [address] 77315- 5942 14 Aug, 2016 Right elbow pain M25.521 [place] [address] 87233- 2054 Aug, Plantar wart of right foot B07.0 and Actinic keratosis L57.0 [place] [address] 69896- 0883 Aug, Fibromyalgia M79.7 [place] [address] 10525- 0826 Jul, Arthritis M19.90 ; Hypothyroidism, unspecified type E03.9 ; Reactive depression F32.9 and Venous insufficiency I87.2 [place] [address] 86006- 4903 Jul, Gastroesophageal reflux disease, esophagitis presence not specified K21.9 [place] [address] 35494- 0128 Jul, Reflex sympathetic dystrophy G90.50 [place] [address] 94225- 9123 Jul, Anxiety F41.9 ; Adjustment disorder with anxiety F43.22 and Reactive depression F32.9 [place] [address] 40327- 4540 Jul, [place] [address] 36233- 8867 Jul, Right elbow pain M25.521 [place] [address] 45855- 6836 Jun, Fibromyalgia M79.7 [facility] [id number] [place] [address] 82748- 6707 Jun, Anxiety F41.9 ; Adjustment disorder with anxiety F43.22 and Reactive depression F32.9 [facility] [address] 54065- 5861 Jun, [facility] [address] 42190- 3882 Jun, Atypical chest pain R07.89 and Adjustment disorder with anxiety F43.22 [facility] [address] [id number] Jun, Chest pain, unspecified type R07.9 [place] [address] 30520- 7956 Jun, Fibromyalgia M79.7 [place] [address] 76988- 6550 May, Anxiety F41.9 [place] [address] 50465- 8101 May, [place] [address] 60756- 0235 May, Right elbow pain M25.521 [place] [address] 40940- 2396 Apr, Reflex sympathetic dystrophy G90.50 and Encounter for immunization Z23 [facility] [address] 21567- 1428 Apr, [place] [address] 10402- 2793 14 Mar, 2016 [facility] [address] 69748- 4528 Feb, [facility] [address] 43453- 1762 Feb, [facility] [address], [place] [address]- 7937 Jan, [facility] [id number] [place] [address] 47849- 9231 Jan, Right elbow pain M25.521 and Right wrist pain M25.531 [facility] [id number] [place] [address] 30964- 5817 Jan, [facility] [id number] [place] [address] 89762- 3289 Dec, Seborrheic keratoses L82.1 [facility] [id number] [place] [address] 44238- 4193 Dec, [facility] [id number] [place] [address] 07129- 5482 Dec, [facility] [id number] [place] [address] 92237- 8292 Dec, [facility] [id number] [place] [address] 58622- 3337 Dec, Fibromyalgia M79.7 and Hypothyroidism, unspecified type E03.9 [facility] [id number] [place] [address] 55961- 8853 Dec, Seborrheic keratoses L82.1 [facility] [id number] [place] [address] 74727- 3764 Dec, [facility] [address] [place] [address] 01655- 2316 Dec, [facility] [id number] [place] [address] 66453- 3010 Nov, Sebaceous cyst L72.3 [facility] [id number] [place] [address] 40446- 1733 October, Breast cancer screening Z12.39 [facility] [id number] [place] [address], [place] [address]- 7643 October, Fibromyalgia M79.7 ; Hypothyroidism, unspecified type E03.9 and Reflex sympathetic dystrophy G90.50 [facility] [address] [facility] [id number] [place] [address]- [address] October, Reflex sympathetic dystrophy G90.50 ; Fibromyalgia M79.7 and Hypothyroidism, unspecified type E03.9 IMMUNIZATIONS No Known Immunizations SOCIAL HISTORY Never Assessed REASON FOR VISIT PLAN OF CARE VITAL SIGNS MEDICATIONS Unknown [...]
--- OUTSIDE RECORDS SUMMARY | 2018-03-07 17:47 | XMS REPORT ---
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 Name Role Phone MANAVKAYA VARMAA Unavailable PROBLEMS Type Condition ICD9-CM Code [id number] Code Onset Dates Condition Status SNOMED Code Problem Reactive depression F32.9 Active 48721548 Problem Plantar wart of right foot B07.0 Active 69565858 Problem Gastroesophageal reflux disease, esophagitis presence not specified K21.9 Active 284649058 Problem Internal derangement of right knee M23.91 Active [id number] Problem Abnormal laboratory test R89.9 Active 733989927 Problem Mixed hyperlipidemia E78.2 Active 256581630 Problem Rosacea L71.9 Active 490198873 Problem Mild episode of recurrent major depressive disorder F33.0 Active 501892441 Problem Generalized anxiety disorder F41.1 Active 05255602 Problem Hypothyroidism, unspecified type E03.9 Active 41555973 Problem Right elbow pain M25.521 Active 89053249 Problem Right wrist pain M25.531 Active 26469235 Problem Reflex sympathetic dystrophy G90.50 Active 83143878 Problem Venous insufficiency I87.2 Active 11223993 Problem Fibromyalgia M79.7 Active 028619466 Problem Arthritis M19.90 Active 9486324 ALLERGIES No Information ENCOUNTERS Encounter Location Date Diagnosis [facility] [address] [facility] [id number] [address] Mar, [facility] [id number] [address] Feb, [facility] [address] [address] Feb, [facility] [id number] [address] Feb, [place] [id number] [place] [address] 60576- 6794 Feb, [place] [address] [address]- 1669 Jan, Medicare annual wellness visit, initial Z00.00 ; Reactive depression F32.9 ; Reflex sympathetic dystrophy G90.50 ; Fibromyalgia M79.7 ; BMI 40.0-44.9, adult Z68.41 ; Hypothyroidism, unspecified type E03.9 ; Gastroesophageal reflux disease, esophagitis presence not specified K21.9 ; Family history of osteoporosis Z82.62 ; Venous insufficiency I87.2 ; Arthritis M19.90 ; Mixed hyperlipidemia E78.2 and Generalized anxiety disorder F41.1 [place] [address] [address]- 3541 Jan, Generalized anxiety disorder F41.1 and Mild episode of recurrent major depressive disorder F33.0 [place] [address] 90257- 3945 Jan, Mild episode of recurrent major depressive disorder F33.0 and Generalized anxiety disorder F41.1 [place] [address] 04391- 5177 Jan, Fibromyalgia M79.7 [place] [id number] [place] [address] 37059- 1726 Jan, Bronchospasm J98.01 [place] [id number] [place] [address] 81207- 9869 Jan, [place] [id number] [place] [address] 94119- 3892 Jan, Generalized anxiety disorder F41.1 and Mild episode of recurrent major depressive disorder F33.0 [place] [id number] [place] [address] 56491- 6588 Jan, Bronchitis J40 [place] [id number] [place] [address] 56272- 3650 Dec, Mild episode of recurrent major depressive disorder F33.0 [facility] [id number] [place] [address] 23107- 8637 Dec, Generalized anxiety disorder F41.1 and Mild episode of recurrent major depressive disorder F33.0 [facility] [id number] [place] [address] 50352- 9232 Dec, Fibromyalgia M79.7 ; Arthritis M19.90 and Generalized anxiety disorder F41.1 [facility] [id number] [place] [address] 29899- 6409 Dec, Mild episode of recurrent major depressive disorder F33.0 and Generalized anxiety disorder F41.1 [facility] [id number] [place] [address] 19836- 1525 Dec, Fibromyalgia M79.7 [facility] [id number] [place] [address] 49260- 2235 Dec, Bronchitis J40 and Internal derangement of right knee M23.91 [facility] [id number] [place] [address] 36927 -4949 Dec, Cough R05 [facility] [id number] [place] [address] 13667- 3785 Dec, Generalized anxiety disorder F41.1 and Mild episode of recurrent major depressive disorder F33.0 [facility] [id number] [place] [address] 00543- 3319 Dec, [facility] [id number] [place] [address] 32566 -0402 Dec, [facility] [id number] [place] [address] 36604- 5333 Dec, Mild episode of recurrent major depressive disorder F33.0 and Generalized anxiety disorder F41.1 [facility] [id number] [place] [address] 03152- 9908 Nov, [facility] [id number] [place] [address] 47440- 3348 Nov, [facility] [address] [facility] [id number] [address] Nov, [facility] [address] [facility] [id number] [place] [address] 33934- 0391 Nov, Internal derangement of right knee M23.91 [facility] [id number] [address] 9667 Nov, Generalized anxiety disorder F41.1 and Mild episode of recurrent major depressive disorder F33.0 [facility] [id number] [address] 46[address] Nov, Internal derangement of right knee M23.91 [facility] [id number] [address] Nov, Acute right ankle pain M25.571 ; Acute pain of right knee M25.561 ; Acute left-sided low back pain without sciatica M54.5 and Right leg pain M79.604 [facility] [id number], [place] [address] 15 Nov, 2017 [facility] [id number] [place] [address] 67848- 3155 14 Nov, 2017 Fibromyalgia M79.7 [facility] [id number] [address] 0[address] 13 Nov, 2017 Generalized anxiety disorder F41.1 and Mild episode of recurrent major depressive disorder F33.0 [facility] [id number] [address] 77[address] Nov, [facility] [id number] [address] 30 Oct, 2017 Generalized anxiety disorder F41.1 and Mild episode of recurrent major depressive disorder F33.0 [facility] [id number] [address] 9605 October, Fibromyalgia M79.7 [facility] [id number] [place] [address] 41549- 6598 October, [facility] [id number] [place] [address] 84033- 0603 October, Generalized anxiety disorder F41.1 and Mild episode of recurrent major depressive disorder F33.0 [facility] [id number] [place] [address] 94744- 4020 October, [facility] [id number] [place] [address] 10348- 9530 Sep, Gastroesophageal reflux disease, esophagitis presence not specified K21.9 and Abnormal laboratory test R89.9 [place] [address] 80961- 5121 Sep, Fibromyalgia M79.7 [place] [id number] [place] [address] 22052- 8597 Sep, Generalized anxiety disorder F41.1 and Mild episode of recurrent major depressive disorder F33.0 [place] [id number] [place] [address] 08984- 2110 Sep, Epigastric pain R10.13 [place] [id number] [place] [address] 62406- 2862 Sep, Mild episode of recurrent major depressive disorder F33.0 and Generalized anxiety disorder F41.1 [place] [id number] [place] [address] 39435- 1016 Sep, Abnormal laboratory test R89.9 [facility] [id number] [place] [address] 01431- 5718 Sep, Generalized anxiety disorder F41.1 and Mild episode of recurrent major depressive disorder F33.0 [facility] [id number] [place] [address] 78006- 0505 Aug, Epigastric pain R10.13 and Encounter for therapeutic drug level monitoring Z51.81 [facility] [id number] [place] [address] 29713 -5004 Aug, Epigastric pain R10.13 and Gastro-esophageal reflux disease without esophagitis K21.9 [place] [address] 04418- 5745 Aug, [place] [id number] [place] [address] 53274- 0836 Aug, Epigastric pain R10.13 [place] [address] 27175- 1639 Aug, Fibromyalgia M79.7 [place] [address] 51658- 5780 Aug, [place] [address] 38350- 6532 Aug, Generalized anxiety disorder F41.1 and Mild episode of recurrent major depressive disorder F33.0 [place] [address] 06347- 4840 Aug, Epigastric pain R10.13 ; Reflex sympathetic dystrophy G90.50 and Arthritis M19.90 [place] [address] 52656- 7212 Jul, Generalized anxiety disorder F41.1 and Mild episode of recurrent major depressive disorder F33.0 [place] [address] 07679- 0376 Jul, BMI 40.0-44.9, adult Z68.41 ; Mild episode of recurrent major depressive disorder F33.0 and Generalized anxiety disorder F41.1 [place] [id number] [place] [address] 24676- 1490 Jul, Fibromyalgia M79.7 [place] [address] 40533- 6199 Jun, Mild episode of recurrent major depressive disorder F33.0 and Generalized anxiety disorder F41.1 [place] [id number] [place] [address] 90927- 9393 Jun, Fibromyalgia M79.7 [facility] [id number] [place] [address] 42423- 9806 Jun, Generalized anxiety disorder F41.1 and Mild episode of recurrent major depressive disorder F33.0 [facility] [id number] [place] [address] 41379- 4159 Jun, Generalized anxiety disorder F41.1 and Mild episode of recurrent major depressive disorder F33.0 [facility] [id number] [place] [address] 82499- 8695 Jun, Generalized anxiety disorder F41.1 and Mild episode of recurrent major depressive disorder F33.0 [facility] [id number] [place] [address] 93578- 0534 Jun, [facility] [id number] [place] [address] 81460- 2419 Jun, Generalized anxiety disorder F41.1 and Mild episode of recurrent major depressive disorder F33.0 [facility] [id number] [place] [address] 94936- 0500 May, Fibromyalgia M79.7 [facility] [id number] [place] [address] 78237- 7003 May, Generalized anxiety disorder F41.1 and Mild episode of recurrent major depressive disorder F33.0 [facility] [address] [place] [address] 79931- 7495 May, Mixed hyperlipidemia E78.2 ; Arthritis M19.90 ; Reactive depression F32.9 and Hypothyroidism, unspecified type E03.9 [facility] [address] [place] [address] 32594- 7063 May, Arthritis M19.90 ; Reactive depression F32.9 ; Mixed hyperlipidemia E78.2 and Hypothyroidism, unspecified type E03.9 [facility] [address] [address]- 7724 Apr, Fibromyalgia M79.7 [facility] [id number] [place] [address] 62385- 1776 Apr, [facility] [address] 83380 2546 Apr, Fibromyalgia M79.7 [facility] [address] 49476 2546 Mar, Fibromyalgia M79.7 [facility] [address] 84905 2546 Mar, [facility] [address] 64935 2542 Mar, Fibromyalgia M79.7 [facility] [id number] [place] [address] 57439 2546 Mar, [facility] [address] [address] 2543 Feb, Reflex sympathetic dystrophy G90.50 ; Right arm pain M79.601 and Fibromyalgia M79.7 [facility] [id number] [place] [address] 85557 2546 Feb, [facility] [address] 04140 2546 Feb, Anxiety F41.9 [facility] [id number] [place] [address] 28975 2546 Feb, Fibromyalgia M79.7 [facility] [id number] [place] [address] 36468 2546 Feb, [facility] [id number] [place] [address] 33889 2546 Feb, [facility] [id number] [place] [address] 36040 2546 Jan, Temporal headache R51 [facility] [address] 40109 2541 Jan, Fibromyalgia M79.7 [facility] [id number] [place] [address] 24004- 4178 Dec, Fibromyalgia M79.7 [facility] [id number] [place] [address] 12026- 4507 Nov, Peroneal tendonitis, unspecified laterality M76.70 and Plantar fasciitis, bilateral M72.2 [place] [address] 97901- 8796 Nov, Fibromyalgia M79.7 [place] [address] 58869- 0234 October, Fibromyalgia M79.7 [facility] [id number] [place] [address] 31765- 6266 October, Plantar fasciitis, bilateral M72.2 and Peroneal tendonitis, unspecified laterality M76.70 [place] [address] 01370- 3003 October, Fibromyalgia M79.7 [place] [id number] [place] [address] 37971- 1486 Sep, Anxiety F41.9 [place] [id number] [place] [address] 92701- 3739 Aug, Anxiety F41.9 and Adjustment disorder with anxiety F43.22 [place] [id number] [place] [address] 56492- 5484 Aug, Pain of left foot M79.672 [place] [id number] [place] [address] 23946- 9545 Aug, Pain of left foot M79.672 and Pain in right foot M79.671 [place] [id number] [place] [address] 40677- 6757 Aug, Arthritis M19.90 ; Reactive depression F32.9 ; Fibromyalgia M79.7 ; Rosacea L71.9 ; Pain in right foot M79.671 and Pain of left foot M79.672 [place] [address] 01140- 7399 Aug, Anxiety F41.9 ; Adjustment disorder with anxiety F43.22 and Reactive depression F32.9 [place] [address] 18885- 6430 14 Aug, 2016 Right elbow pain M25.521 [place] [address] 35581- 7571 Aug, Plantar wart of right foot B07.0 and Actinic keratosis L57.0 [place] [address] 15987- 4665 Aug, Fibromyalgia M79.7 [place] [address] 96512- 5951 Jul, Arthritis M19.90 ; Hypothyroidism, unspecified type E03.9 ; Reactive depression F32.9 and Venous insufficiency I87.2 [place] [address] 92521- 2459 Jul, Gastroesophageal reflux disease, esophagitis presence not specified K21.9 [place] [address] 39517- 0134 Jul, Reflex sympathetic dystrophy G90.50 [place] [address] 98174- 0954 Jul, Anxiety F41.9 ; Adjustment disorder with anxiety F43.22 and Reactive depression F32.9 [place] [address] 36750- 4533 Jul, [place] [address] 66208- 1679 Jul, Right elbow pain M25.521 [place] [address] 78043- 8367 Jun, Fibromyalgia M79.7 [facility] [id number] [place] [address] 80128- 5152 Jun, Anxiety F41.9 ; Adjustment disorder with anxiety F43.22 and Reactive depression F32.9 [facility] [address] 91458- 2791 Jun, [facility] [address] 93566- 3172 Jun, Atypical chest pain R07.89 and Adjustment disorder with anxiety F43.22 [facility] [address] [id number] Jun, Chest pain, unspecified type R07.9 [place] [address] 90148- 1622 Jun, Fibromyalgia M79.7 [place] [address] 75936- 3127 May, Anxiety F41.9 [place] [address] 63195- 3744 May, [place] [address] 99092- 4651 May, Right elbow pain M25.521 [place] [address] 79911- 7562 Apr, Reflex sympathetic dystrophy G90.50 and Encounter for immunization Z23 [facility] [address] 26724- 7601 Apr, [place] [address] 44889- 4223 14 Mar, 2016 [facility] [address] 68228- 4477 Feb, [facility] [address] 33967- 5415 Feb, [facility] [address] [address]- 6405 Jan, [facility] [id number] [place] [address] 16518- 3938 Jan, Right elbow pain M25.521 and Right wrist pain M25.531 [facility] [id number] [place] [address] 36447- 4401 Jan, [facility] [id number] [place] [address] 17899- 9108 Dec, Seborrheic keratoses L82.1 [facility] [id number] [place] [address] 61039- 2754 Dec, [facility] [id number] [place] [address] 91966- 7937 Dec, [facility] [id number] [place] [address] 29334- 1088 Dec, [facility] [id number] [place] [address] 81390- 7221 Dec, Fibromyalgia M79.7 and Hypothyroidism, unspecified type E03.9 [facility] [id number] [place] [address] 56426- 4457 Dec, Seborrheic keratoses L82.1 [facility] [id number] [place] [address] 08941- 3043 Dec, [facility] [address] [place] [address] 80864- 8651 Dec, [facility] [id number] [place] [address] 43143- 7590 Nov, Sebaceous cyst L72.3 [facility] [id number] [place] [address] 01869- 0006 October, Breast cancer screening Z12.39 [facility] [id number] [place] [address], [place] [address]- 5320 October, Fibromyalgia M79.7 ; Hypothyroidism, unspecified type E03.9 and Reflex sympathetic dystrophy G90.50 [facility] [address] [facility] [id number] [address]- 8754 October, Reflex sympathetic dystrophy G90.50 ; Fibromyalgia M79.7 and Hypothyroidism, unspecified type E03.9 IMMUNIZATIONS No Known Immunizations SOCIAL HISTORY Never Assessed REASON FOR VISIT returned call PLAN OF CARE VITAL SIGNS MEDICATIONS Unknown [...]
--- OUTSIDE RECORDS SUMMARY | 2018-03-07 17:48 | XMS REPORT ---
Author Author JOE BAI [facility] Address [address] [place] [address] Care Team Providers Care Manager Servicing Name Role Phone JOE BAI Unavailable PROBLEMS Type Condition ICD9-CM Code DTM25-TG Code Onset Dates Condition Status SNOMED Code Problem Reactive depression F32.9 Active 42079483 Problem Plantar wart of right foot B07.0 Active 56208314 Problem Gastroesophageal reflux disease, esophagitis presence not specified K21.9 Active 463730642 Problem Internal derangement of right knee M23.91 Active 173485996506957 Problem Abnormal laboratory test R89.9 Active 775943754 Problem Mixed hyperlipidemia E78.2 Active 474725250 Problem Rosacea L71.9 Active 259411567 Problem Mild episode of recurrent major depressive disorder F33.0 Active 182422620 Problem Generalized anxiety disorder F41.1 Active 32207755 Problem Hypothyroidism, unspecified type E03.9 Active 76871402 Problem Right elbow pain M25.521 Active 43397087 Problem Right wrist pain M25.531 Active 03303015 Problem Reflex sympathetic dystrophy G90.50 Active 16747969 Problem Venous insufficiency I87.2 Active 90654978 Problem Fibromyalgia M79.7 Active 182256146 Problem Arthritis M19.90 Active 2296896 ALLERGIES Substance Reaction Event Type Date Status Robaxin Unknown Drug Allergy Nov, Active Penicillin V Potassium Unknown Drug Allergy Nov, Active Demerol Unknown Drug Allergy Nov, Active Codeine Sulfate Unknown Drug Allergy Nov, Active ENCOUNTERS Encounter Location Date Diagnosis [facility] [address] [facility] [id number] [address] Mar, [facility] [address] [id number] [address] 9[address] Feb, [facility] [address] [id number] [address] 7[address] Feb, [place] [id number] [place] [address] 31004- 1729 Feb, [place] [id number] [place] [address] 79322- 8937 Feb, [place] [id number] [place] [address] 21063- 2867 Jan, Medicare annual wellness visit, initial Z00.00 ; Reactive depression F32.9 ; Reflex sympathetic dystrophy G90.50 ; Fibromyalgia M79.7 ; BMI 40.0-44.9, adult Z68.41 ; Hypothyroidism, unspecified type E03.9 ; Gastroesophageal reflux disease, esophagitis presence not specified K21.9 ; Family history of osteoporosis Z82.62 ; Venous insufficiency I87.2 ; Arthritis M19.90 ; Mixed hyperlipidemia E78.2 and Generalized anxiety disorder F41.1 [place] [id number] [place] [address] 31536- 7403 Jan, Generalized anxiety disorder F41.1 and Mild episode of recurrent major depressive disorder F33.0 [place] [id number] [place] [address] 19441- 7626 Jan, Mild episode of recurrent major depressive disorder F33.0 and Generalized anxiety disorder F41.1 [place] [id number] [place] [address] 96559- 6278 Jan, Fibromyalgia M79.7 [place] [id number] [place] [address] 23519- 1240 Jan, Bronchospasm J98.01 [place] [id number] [place] [address] 01048- 7104 Jan, [place] [id number] [place] [address] 40449- 7293 Jan, Generalized anxiety disorder F41.1 and Mild episode of recurrent major depressive disorder F33.0 [place] [id number] [place] [address] 40036- 8335 Jan, Bronchitis J40 [facility] [id number] [place] [address] 88364- 4069 Dec, Mild episode of recurrent major depressive disorder F33.0 [facility] [id number] [place] [address] 59088- 1166 Dec, Generalized anxiety disorder F41.1 and Mild episode of recurrent major depressive disorder F33.0 [facility] [id number] [place] [address] 71180- 6237 Dec, Fibromyalgia M79.7 ; Arthritis M19.90 and Generalized anxiety disorder F41.1 [place] [id number] [place] [address] 97244- 0029 Dec, Mild episode of recurrent major depressive disorder F33.0 and Generalized anxiety disorder F41.1 [place] [id number] [place] [address] 98687- 4302 Dec, Fibromyalgia M79.7 [facility] [id number] [place] [address] 72004- 7837 Dec, Bronchitis J40 and Internal derangement of right knee M23.91 [facility] [id number] [place] [address] 16204 -6440 Dec, Cough R05 [facility] [id number] [place] [address] 59026- 8928 Dec, Generalized anxiety disorder F41.1 and Mild episode of recurrent major depressive disorder F33.0 [facility] [id number] [place] [address] 90876- 1213 Dec, [facility] [id number] [place] [address] 19229 -4472 Dec, [facility] [id number] [place] [address] 63062- 8216 Dec, Mild episode of recurrent major depressive disorder F33.0 and Generalized anxiety disorder F41.1 [facility] [address] [id number] [address] 1239 30 Nov, 2017 [facility] [address], [place] [address] 4930 Nov, [facility] [address], [place] [address] 0307 28 Nov, 2017 [facility] [id number] [place] [address] 69285- 1863 Nov, Internal derangement of right knee M23.91 [facility] [address], [place] [address] 9672 27 Nov, 2017 Generalized anxiety disorder F41.1 and Mild episode of recurrent major depressive disorder F33.0 [facility] [address], [place] [address] 5778 22 Nov, 2017 Internal derangement of right knee M23.91 [facility] [address], [place] [address] 19 Nov, 2017 Acute right ankle pain M25.571 ; Acute pain of right knee M25.561 ; Acute left-sided low back pain without sciatica M54.5 and Right leg pain M79.604 [facility] [address], [place] [address]- 6643 15 Nov, 2017 [facility] [address], [place] [address]- 0903 14 Nov, 2017 Fibromyalgia M79.7 [facility] [address], [place] [address]- 3762 13 Nov, 2017 Generalized anxiety disorder F41.1 and Mild episode of recurrent major depressive disorder F33.0 [facility] [address], [place] [address]- 3290 11 Nov, 2017 [facility] [address], [place] [address]- 5926 October, Generalized anxiety disorder F41.1 and Mild episode of recurrent major depressive disorder F33.0 [facility] [id number] [place] [address] 23817- 6718 October, Fibromyalgia M79.7 [facility] [id number] [place] [address] 40020- 6646 October, [facility] [id number] [place] [address] 57428- 9579 October, Generalized anxiety disorder F41.1 and Mild episode of recurrent major depressive disorder F33.0 [facility] [id number] [place] [address] 05665- 9917 October, [facility] [id number] [place] [address] 55805- 0541 Sep, Gastroesophageal reflux disease, esophagitis presence not specified K21.9 and Abnormal laboratory test R89.9 [place] [id number] [place] [address] 74756- 6750 Sep, Fibromyalgia M79.7 [facility] [id number] [place] [address] 28714- 1590 Sep, Generalized anxiety disorder F41.1 and Mild episode of recurrent major depressive disorder F33.0 [facility] [id number] [place] [address] 14764- 2640 Sep, Epigastric pain R10.13 [place] [id number] [place] [address] 11314- 8419 Sep, Mild episode of recurrent major depressive disorder F33.0 and Generalized anxiety disorder F41.1 [facility] [id number] [place] [address] 95669- 3570 Sep, Abnormal laboratory test R89.9 [facility] [id number] [place] [address] 83666- 9451 Sep, Generalized anxiety disorder F41.1 and Mild episode of recurrent major depressive disorder F33.0 [facility] [id number] [place] [address] 27905- 0982 Aug, Epigastric pain R10.13 and Encounter for therapeutic drug level monitoring Z51.81 [facility] [id number] [place] [address] 05864 -1665 Aug, Epigastric pain R10.13 and Gastro-esophageal reflux disease without esophagitis K21.9 [facility] [id number] [place] [address] 58436- 1134 Aug, [facility] [id number] [place] [address] 12380- 1318 Aug, Epigastric pain R10.13 [place] [id number] [place] [address] 90293- 5282 Aug, Fibromyalgia M79.7 [facility] [id number] [place] [address] 06835- 5085 14 Aug, 2017 [place] [address] 60281- 7689 Aug, Generalized anxiety disorder F41.1 and Mild episode of recurrent major depressive disorder F33.0 [place] [id number] [place] [address] 37169- 7469 08 Aug, 2017 Epigastric pain R10.13 ; Reflex sympathetic dystrophy G90.50 and Arthritis M19.90 [facility] [id number] [place] [address] 04406- 1323 Jul, Generalized anxiety disorder F41.1 and Mild episode of recurrent major depressive disorder F33.0 [facility] [id number] [place] [address] 81505- 2862 Jul, BMI 40.0-44.9, adult Z68.41 ; Mild episode of recurrent major depressive disorder F33.0 and Generalized anxiety disorder F41.1 [facility] [id number] [place] [address] 63657- 3894 Jul, Fibromyalgia M79.7 [facility] [address] 91727- 8429 Jun, Mild episode of recurrent major depressive disorder F33.0 and Generalized anxiety disorder F41.1 [facility] [id number] [place] [address] 15738- 8676 Jun, Fibromyalgia M79.7 [facility] [id number] [place] [address] 47418- 0406 Jun, Generalized anxiety disorder F41.1 and Mild episode of recurrent major depressive disorder F33.0 [facility] [id number] [place] [address] 68794 2548 Jun, Generalized anxiety disorder F41.1 and Mild episode of recurrent major depressive disorder F33.0 [place] [id number] [place] [address] 97707- 5733 Jun, Generalized anxiety disorder F41.1 and Mild episode of recurrent major depressive disorder F33.0 [facility] [id number] [place] [address] 66148- 9366 Jun, [facility] [id number] [place] [address] 34918- 5552 Jun, Generalized anxiety disorder F41.1 and Mild episode of recurrent major depressive disorder F33.0 [facility] [id number] [place] [address] 36864- 5316 May, Fibromyalgia M79.7 [facility] [id number] [place] [address] 82616- 4996 May, Generalized anxiety disorder F41.1 and Mild episode of recurrent major depressive disorder F33.0 [facility] [address], [place] [address] 2546 May, Mixed hyperlipidemia E78.2 ; Arthritis M19.90 ; Reactive depression F32.9 and Hypothyroidism, unspecified type E03.9 [facility] [address], [place] [address]- 5556 May, Arthritis M19.90 ; Reactive depression F32.9 ; Mixed hyperlipidemia E78.2 and Hypothyroidism, unspecified type E03.9 [facility] [id number] [place] [address] 82899- 2459 Apr, Fibromyalgia M79.7 [facility] [id number] [place] [address] 77179- 1246 Apr, [facility] [address] 32186- 6462 Apr, Fibromyalgia M79.7 [facility] [address] 37203- 6675 Mar, Fibromyalgia M79.7 [facility] [address] 79117- 0393 Mar, [facility] [address] 03213- 5198 Mar, Fibromyalgia M79.7 [facility] [address] 59059- 2843 Mar, [facility] [address] 60856- 8306 Feb, Reflex sympathetic dystrophy G90.50 ; Right arm pain M79.601 and Fibromyalgia M79.7 [facility] [id number] [place] [address] 38914- 6637 Feb, [facility] [address] 98687- 4463 Feb, Anxiety F41.9 [facility] [id number] [place] [address] 62661- 2543 Feb, Fibromyalgia M79.7 [facility] [address] 57153- 3753 Feb, [facility] [id number] [place] [address] 01933- 6358 Feb, [facility] [address] 80851- 8885 Jan, Temporal headache R51 [facility] [id number] [place] [address] 47942- 5083 Jan, Fibromyalgia M79.7 [facility] [id number] [place] [address] 98413- 1246 Dec, Fibromyalgia M79.7 [facility] [id number] [place] [address] 53995- 0858 Nov, Peroneal tendonitis, unspecified laterality M76.70 and Plantar fasciitis, bilateral M72.2 [facility] [address] 13277- 1767 Nov, Fibromyalgia M79.7 [facility] [address] 57760- 3051 October, Fibromyalgia M79.7 [facility] [address] 59579- 5062 October, Plantar fasciitis, bilateral M72.2 and Peroneal tendonitis, unspecified laterality M76.70 [facility] [id number] [place] [address] 14822- 5336 October, Fibromyalgia M79.7 [facility] [id number] [place] [address] 02269- 7671 Sep, Anxiety F41.9 [place] [address] 82841- 7100 Aug, Anxiety F41.9 and Adjustment disorder with anxiety F43.22 [facility] [id number] [place] [address] 53377- 7436 Aug, Pain of left foot M79.672 [facility] [id number] [place] [address] 39396- 9603 Aug, Pain of left foot M79.672 and Pain in right foot M79.671 [facility] [address] [place] [address] 94573- 6280 Aug, Arthritis M19.90 ; Reactive depression F32.9 ; Fibromyalgia M79.7 ; Rosacea L71.9 ; Pain in right foot M79.671 and Pain of left foot M79.672 [place] [address] 36704- 9208 Aug, Anxiety F41.9 ; Adjustment disorder with anxiety F43.22 and Reactive depression F32.9 [place] [address] 68082- 8609 14 Aug, 2016 Right elbow pain M25.521 [place] [address] 14184- 4037 07 Aug, 2016 Plantar wart of right foot B07.0 and Actinic keratosis L57.0 [place] [address] 87758- 2069 Aug, Fibromyalgia M79.7 [place] [address] 66588- 8951 Jul, Arthritis M19.90 ; Hypothyroidism, unspecified type E03.9 ; Reactive depression F32.9 and Venous insufficiency I87.2 [place] [address] 34915- 5763 Jul, Gastroesophageal reflux disease, esophagitis presence not specified K21.9 [place] [address] 73792- 2257 Jul, Reflex sympathetic dystrophy G90.50 [place] [address] 75676- 8601 Jul, Anxiety F41.9 ; Adjustment disorder with anxiety F43.22 and Reactive depression F32.9 [place] [address] 86761- 4633 Jul, [place] [address] 79409- 8506 Jul, Right elbow pain M25.521 [facility] [address] 03897- 9911 Jun, Fibromyalgia M79.7 [facility] [address] 97168- 8397 Jun, Anxiety F41.9 ; Adjustment disorder with anxiety F43.22 and Reactive depression F32.9 [facility] [address] 19015- 8513 Jun, [facility] [address] 43392- 9612 Jun, Atypical chest pain R07.89 and Adjustment disorder with anxiety F43.22 [place] [address] [id number] Jun, Chest pain, unspecified type R07.9 [facility] [address] 77611- 8834 Jun, Fibromyalgia M79.7 [facility] [address] 91176- 6538 May, Anxiety F41.9 [facility] [address] 40207- 3822 14 May, 2016 [facility] [address] 78511- 2558 May, Right elbow pain M25.521 [facility] [address] 97323- 3402 Apr, Reflex sympathetic dystrophy G90.50 and Encounter for immunization Z23 [facility] [address] 95967- 3579 07 Apr, 2016 [facility] [address] 40857- 0258 14 Mar, 2016 [facility] [address] [place] [address]- 7583 Feb, [facility] [address], [place] [address]- 4752 Feb, [facility] [address] [place] [address] 70837- 1623 Jan, [facility] [id number] [place] [address] 41720- 8282 Jan, Right elbow pain M25.521 and Right wrist pain M25.531 [facility] [id number] [place] [address] 36708- 3947 Jan, [facility] [id number] [place] [address] 07995- 9348 Dec, Seborrheic keratoses L82.1 [facility] [id number] [place] [address] 62721- 7354 Dec, [facility] [id number] [place] [address] 14379- 8976 Dec, [facility] [id number] [place] [address] 26301- 0394 Dec, [facility] [id number] [place] [address] 81809- 4688 Dec, Fibromyalgia M79.7 and Hypothyroidism, unspecified type E03.9 [facility] [id number] [address]- 2633 Dec, Seborrheic keratoses L82.1 [facility] [address], [place] [address]- 4536 Dec, [facility] [address], [place] [address]- 2721 Dec, [facility] [address], [place] [address]- 6034 Nov, Sebaceous cyst L72.3 [facility] [id number], [place] [address]- 9692 October, Breast cancer screening Z12.39 [place] [address] [facility] [id number] [address]- 8072 October, Fibromyalgia M79.7 ; Hypothyroidism, unspecified type E03.9 and Reflex sympathetic dystrophy G90.50 [place] [address] [facility] [id number] [address]- 3050 October, Reflex sympathetic dystrophy G90.50 ; Fibromyalgia M79.7 and Hypothyroidism, unspecified type E03.9 IMMUNIZATIONS No Known Immunizations SOCIAL HISTORY Never Assessed REASON FOR VISIT Swelling -knee, PT reports that since the 12/02 her right knee/ankle/foot were swollen. PT had a dopler done at the hospital to see if there was any clots, denies any. PT said its painful to the touch and worsened. PT notes they planned on doing an xray but they need to get a new order. -Logan DAVEY PLAN OF CARE Activity Details Follow Up prn Reason: VITAL SIGNS Height 62 in 2017-12-09 Weight 216.3 lbs 2017-12-09 Temperature 98.3 degrees Fahrenheit 2017-12-09 Heart Rate 82 bpm 2017-12-09 Respiratory Rate 20 2017-12-09 Oximetry on room air:96 % 2017-12-09 BMI 39.56 kg/m2 2017-12-09 Blood pressure systolic 135 mmHg 2017-12-09 Blood pressure diastolic 80 mmHg 2017-12-09 MEDICATIONS Medication Instructions Dosage Frequency Start Date End Date Duration Status Fiorinal 50-325-40 MG Orally every 4 hrs 1 capsule as needed 4h Jan, Active Orphenadrine Citrate ER 100 mg Orally twice a day 1 tablet 12h Active Levothyroxine Sodium 75MCG TAKE ONE TABLET BY MOUTH ONCE DAILY Active Cane - as directed Nov, Active Rexulti 1 MG Orally Once a day 0.5 tablet every day for one week then take full tablet daily 24h Nov, 30 day(s) Active Excedrin Migraine 250-250-65 MG Orally every 6 hrs 2 tablets as needed 6h Active HydrOXYzine HCl 10 MG Orally three times a day as needed for anxiety and sleep 1 tablet May, Active Trintellix 5 MG Orally Once a day 1 tablet 24h 30 Zachary, 2018 30 days Active Diclofenac Sodium 75 MG Orally Twice a day 1 tablet with food or milk 12h Nov, Dec, 14 days Active Pantoprazole Sodium 40MG Orally Once a day 1 tablet 24h Active Hydrocodone-Acetaminophen 7.5-325 MG Orally 3 times a day 1 tablet 8h October, 28 days Active Topiramate 200MG Orally twice a day 1 tablet 12h Active RESULTS Name Result Date Reference Range Xray : Knee, Right 3 views (IN HOUSE) 2017-12-09 PROCEDURES Procedure Date Ordered Result Body Site X-RAY EXAM OF KNEE, 3 December 09, 2017 [facility] VISIT ESTABLISHED PATIENT December 09, 2017 INSTRUCTIONS MEDICATIONS ADMINISTERED No Known Medications MEDICAL [...]
--- OUTSIDE RECORDS SUMMARY | 2018-03-07 17:48 | XMS REPORT ---
Author Author JOE BAI Organization [facility] Address [address] [place] [address] Care Team Providers Care Log Turner Name Role Phone JOE BAI Unavailable PROBLEMS Type Condition ICD9-CM Code IFN12-CC Code Onset Dates Condition Status SNOMED Code Problem Reactive depression F32.9 Active 86419198 Problem Plantar wart of right foot B07.0 Active 78537903 Problem Gastroesophageal reflux disease, esophagitis presence not specified K21.9 Active 653242768 Problem Internal derangement of right knee M23.91 Active 427022125419979 Problem Abnormal laboratory test R89.9 Active 295754161 Problem Mixed hyperlipidemia E78.2 Active 023798688 Problem Rosacea L71.9 Active 165012543 Problem Mild episode of recurrent major depressive disorder F33.0 Active 642405952 Problem Generalized anxiety disorder F41.1 Active 06907683 Problem Hypothyroidism, unspecified type E03.9 Active 94797356 Problem Right elbow pain M25.521 Active 09998042 Problem Right wrist pain M25.531 Active 97074741 Problem Reflex sympathetic dystrophy G90.50 Active 90808499 Problem Venous insufficiency I87.2 Active 24803209 Problem Fibromyalgia M79.7 Active 659853305 Problem Arthritis M19.90 Active 0037882 ALLERGIES No Information ENCOUNTERS Encounter Location Date Diagnosis [facility] [address] [address] Mar, [facility] [id number] [place] [address] 18433- 6293 Feb, [facility] [id number] [place] [address] 96373- 0946 Feb, [facility] [address], [place] [address] Feb, [facility] [id number] [place] [address] 68037- 4578 Feb, [facility] [address] 34255- 3663 Jan, Medicare annual wellness visit, initial Z00.00 ; Reactive depression F32.9 ; Reflex sympathetic dystrophy G90.50 ; Fibromyalgia M79.7 ; BMI 40.0-44.9, adult Z68.41 ; Hypothyroidism, unspecified type E03.9 ; Gastroesophageal reflux disease, esophagitis presence not specified K21.9 ; Family history of osteoporosis Z82.62 ; Venous insufficiency I87.2 ; Arthritis M19.90 ; Mixed hyperlipidemia E78.2 and Generalized anxiety disorder F41.1 [facility] [address] 0[address]10- 4160 Jan, Generalized anxiety disorder F41.1 and Mild episode of recurrent major depressive disorder F33.0 [facility] [id number] [place] [address] 58916- 0847 Jan, Mild episode of recurrent major depressive disorder F33.0 and Generalized anxiety disorder F41.1 [facility] [id number] [place] [address] 25262- 4899 Jan, Fibromyalgia M79.7 [facility] [id number] [place] [address] 48049- 8213 Jan, Bronchospasm J98.01 [facility] [id number] [place] [address] 04127- 5141 Jan, [facility] [id number] [place] [address] 12087- 2395 Jan, Generalized anxiety disorder F41.1 and Mild episode of recurrent major depressive disorder F33.0 [facility] [id number] [place] [address] 81777- 7858 Jan, Bronchitis J40 [facility] [id number] [place] [address] 36887- 9460 Dec, Mild episode of recurrent major depressive disorder F33.0 [facility] [address], [place] [address] 27[address] Dec, Generalized anxiety disorder F41.1 and Mild episode of recurrent major depressive disorder F33.0 [facility] [id number] [place] [address] 26466- 4916 Dec, Fibromyalgia M79.7 ; Arthritis M19.90 and Generalized anxiety disorder F41.1 [facility] [id number] [place] [address] 52006- 2098 Dec, Mild episode of recurrent major depressive disorder F33.0 and Generalized anxiety disorder F41.1 [facility] [id number] [place] [address] 25357- 5485 Dec, Fibromyalgia M79.7 [facility] [id number] [place] [address] 78009- 5080 Dec, Bronchitis J40 and Internal derangement of right knee M23.91 [facility] [id number] [place] [address] 33129 -0309 Dec, Cough R05 [facility] [id number] [place] [address] 05270- 2691 Dec, Generalized anxiety disorder F41.1 and Mild episode of recurrent major depressive disorder F33.0 [facility] [id number] [place] [address] 52620- 4086 Dec, [facility] [id number] [place] [address] 21904 -7435 Dec, [facility] [id number] [place] [address] 31014- 1203 Dec, Mild episode of recurrent major depressive disorder F33.0 and Generalized anxiety disorder F41.1 [facility] [address], [place] [address] 06[address] Nov, [facility] [id number] [place] [address] 50058- 8144 Nov, [facility] [address], [place] [address] 3961 Nov, [facility] [id number], [place] [address] 8671 Nov, Internal derangement of right knee M23.91 [facility] [address], [place] [address] 5651 Nov, Generalized anxiety disorder F41.1 and Mild episode of recurrent major depressive disorder F33.0 [facility] [address], [place] [address] 9666 Nov, Internal derangement of right knee M23.91 [facility] [id number], [place] [address] Nov, Acute right ankle pain M25.571 ; Acute pain of right knee M25.561 ; Acute left-sided low back pain without sciatica M54.5 and Right leg pain M79.604 [facility] [address], [place] [address]- 5245 15 Nov, 2017 [facility] [address], [place] [address]- 1859 14 Nov, 2017 Fibromyalgia M79.7 [facility] [address], [place] [address]- 4575 13 Nov, 2017 Generalized anxiety disorder F41.1 and Mild episode of recurrent major depressive disorder F33.0 [facility] [address], [place] [address]- 1292 Nov, [facility] [id number], [place] [address] 8487 30 Oct, 2017 Generalized anxiety disorder F41.1 and Mild episode of recurrent major depressive disorder F33.0 [facility] [address], [place] [address]- 5378 October, Fibromyalgia M79.7 [facility] [id number] [place] [address] 21509- 1772 October, [facility] [id number] [place] [address] 23813- 0822 October, Generalized anxiety disorder F41.1 and Mild episode of recurrent major depressive disorder F33.0 [facility] [id number] [place] [address] 17323- 6136 October, [facility] [address] 03185- 1114 Sep, Gastroesophageal reflux disease, esophagitis presence not specified K21.9 and Abnormal laboratory test R89.9 [facility] [address] 14246- 0025 Sep, Fibromyalgia M79.7 [facility] [id number] [place] [address] 87809- 7164 Sep, Generalized anxiety disorder F41.1 and Mild episode of recurrent major depressive disorder F33.0 [facility] [id number] [place] [address] 79304- 0496 Sep, Epigastric pain R10.13 [facility] [id number] [place] [address] 31198- 1016 Sep, Mild episode of recurrent major depressive disorder F33.0 and Generalized anxiety disorder F41.1 [facility] [id number] [place] [address] 38881- 3770 Sep, Abnormal laboratory test R89.9 [facility] [id number] [place] [address] 16833- 1953 Sep, Generalized anxiety disorder F41.1 and Mild episode of recurrent major depressive disorder F33.0 [facility] [id number] [place] [address] 47816- 5015 Aug, Epigastric pain R10.13 and Encounter for therapeutic drug level monitoring Z51.81 [facility] [id number] [place] [address] 17949 -6901 Aug, Epigastric pain R10.13 and Gastro-esophageal reflux disease without esophagitis K21.9 [facility] [id number] [place] [address] 63724- 3574 Aug, [facility] [id number] [place] [address] 45240- 1126 Aug, Epigastric pain R10.13 [facility] [address] 51653- 7477 Aug, Fibromyalgia M79.7 [facility] [address] 12133- 9515 Aug, [facility] [address] 39611- 4295 Aug, Generalized anxiety disorder F41.1 and Mild episode of recurrent major depressive disorder F33.0 [facility] [address] 32914- 2976 Aug, Epigastric pain R10.13 ; Reflex sympathetic dystrophy G90.50 and Arthritis M19.90 [facility] [id number] [place] [address] 89908- 5688 Jul, Generalized anxiety disorder F41.1 and Mild episode of recurrent major depressive disorder F33.0 [facility] [id number] [place] [address] 56681- 0770 Jul, BMI 40.0-44.9, adult Z68.41 ; Mild episode of recurrent major depressive disorder F33.0 and Generalized anxiety disorder F41.1 [facility] [id number] [place] [address] 01222- 8561 Jul, Fibromyalgia M79.7 [facility] [id number] [place] [address] 82208- 3746 Jun, Mild episode of recurrent major depressive disorder F33.0 and Generalized anxiety disorder F41.1 [facility] [id number] [place] [address] 14914- 5837 Jun, Fibromyalgia M79.7 [facility] [address], [place] [address]- 3736 Jun, Generalized anxiety disorder F41.1 and Mild episode of recurrent major depressive disorder F33.0 [facility] [address], [place] [address]- 2539 Jun, Generalized anxiety disorder F41.1 and Mild episode of recurrent major depressive disorder F33.0 [facility] [address] [place] [address] 85741- 9124 Jun, Generalized anxiety disorder F41.1 and Mild episode of recurrent major depressive disorder F33.0 [facility] [address] [place] [address] 68852- 9798 Jun, [facility] [id number] [place] [address] 80546- 7031 Jun, Generalized anxiety disorder F41.1 and Mild episode of recurrent major depressive disorder F33.0 [facility] [address] [place] [address] 38464- 7398 May, Fibromyalgia M79.7 [facility] [address] [place] [address] 87715- 9853 May, Generalized anxiety disorder F41.1 and Mild episode of recurrent major depressive disorder F33.0 [facility] [address], [place] [address]- 8759 May, Mixed hyperlipidemia E78.2 ; Arthritis M19.90 ; Reactive depression F32.9 and Hypothyroidism, unspecified type E03.9 [facility] [address] [place] [address] 89788- 3810 May, Arthritis M19.90 ; Reactive depression F32.9 ; Mixed hyperlipidemia E78.2 and Hypothyroidism, unspecified type E03.9 [facility] [address], [place] [address]- 6879 Apr, Fibromyalgia M79.7 [facility] [id number] [place] [address] 61220- 3249 Apr, [facility] [address] 25323- 7678 Apr, Fibromyalgia M79.7 [facility] [id number] [place] [address] 58124- 0904 Mar, Fibromyalgia M79.7 [facility] [address] 30583- 0795 Mar, [facility] [id number] [place] [address] 77644- 3002 Mar, Fibromyalgia M79.7 [facility] [address] 86758- 3306 Mar, [facility] [id number] [place] [address] 10957- 6641 Feb, Reflex sympathetic dystrophy G90.50 ; Right arm pain M79.601 and Fibromyalgia M79.7 [facility] [id number] [place] [address] 35774- 8401 Feb, [facility] [id number] [place] [address] 59662- 4859 Feb, Anxiety F41.9 [facility] [id number] [place] [address] 74024 2548 Feb, Fibromyalgia M79.7 [facility] [id number] [place] [address] 84054 2546 Feb, [facility] [id number] [place] [address] 99779- 7346 Feb, [facility] [id number] [place] [address] 57340- 9784 Jan, Temporal headache R51 [facility] [id number] [place] [address] 26873 2541 Jan, Fibromyalgia M79.7 [facility] [id number] [place] [address] 31841- 4218 Dec, Fibromyalgia M79.7 [facility] [id number] [place] [address] 26266- 2135 Nov, Peroneal tendonitis, unspecified laterality M76.70 and Plantar fasciitis, bilateral M72.2 [facility] [address] 55915- 3144 Nov, Fibromyalgia M79.7 [facility] [address] 58030- 0504 October, Fibromyalgia M79.7 [facility] [id number] [place] [address] 30018- 5474 October, Plantar fasciitis, bilateral M72.2 and Peroneal tendonitis, unspecified laterality M76.70 [facility] [address] 42160- 2162 October, Fibromyalgia M79.7 [facility] [id number] [place] [address] 93313- 6647 Sep, Anxiety F41.9 [facility] [id number] [place] [address] 21278- 2955 Aug, Anxiety F41.9 and Adjustment disorder with anxiety F43.22 [facility] [id number] [place] [address] 34803- 1329 Aug, Pain of left foot M79.672 [facility] [id number] [place] [address] 70046- 6365 Aug, Pain of left foot M79.672 and Pain in right foot M79.671 [facility] [id number] [place] [address] 22312- 5287 Aug, Arthritis M19.90 ; Reactive depression F32.9 ; Fibromyalgia M79.7 ; Rosacea L71.9 ; Pain in right foot M79.671 and Pain of left foot M79.672 [facility] [address] 38670- 4791 Aug, Anxiety F41.9 ; Adjustment disorder with anxiety F43.22 and Reactive depression F32.9 [facility] [place] [address] 11203- 1406 14 Aug, 2016 Right elbow pain M25.521 [facility] [address] 76647- 7169 Aug, Plantar wart of right foot B07.0 and Actinic keratosis L57.0 [facility] [address] 68832- 0711 Aug, Fibromyalgia M79.7 [facility] [address] 96400- 6975 Jul, Arthritis M19.90 ; Hypothyroidism, unspecified type E03.9 ; Reactive depression F32.9 and Venous insufficiency I87.2 [place] [address] 37469- 6394 Jul, Gastroesophageal reflux disease, esophagitis presence not specified K21.9 [place] [address] 35495- 5251 Jul, Reflex sympathetic dystrophy G90.50 [facility] [address] 79526- 4767 Jul, Anxiety F41.9 ; Adjustment disorder with anxiety F43.22 and Reactive depression F32.9 [place] [address] 05256- 7954 Jul, [facility] [address] 98695- 9286 Jul, Right elbow pain M25.521 [place] [address] 86688- 8744 Jun, Fibromyalgia M79.7 [facility] [address] 55682- 1197 Jun, Anxiety F41.9 ; Adjustment disorder with anxiety F43.22 and Reactive depression F32.9 [facility] [address] 88436- 8377 Jun, [facility] [address] 14826- 0165 Jun, Atypical chest pain R07.89 and Adjustment disorder with anxiety F43.22 [facility] [place] [address] [id number] Jun, Chest pain, unspecified type R07.9 [facility] [address] 19374- 9418 Jun, Fibromyalgia M79.7 [facility] [place] [address] 48358- 9255 May, Anxiety F41.9 [place] [place] [address] 10634- 1532 May, [facility] [address] 15684- 1499 May, Right elbow pain M25.521 [facility] [place] [address] 63028- 2400 Apr, Reflex sympathetic dystrophy G90.50 and Encounter for immunization Z23 [facility] [address] 05108- 8378 Apr, [place] [address] 11630- 8069 Mar, [facility] [address] 23197- 1529 Feb, [facility] [address] 70659- 0738 Feb, [facility] [id number] [place] [address] 65107- 5246 Jan, [facility] [id number] [place] [address] 98159- 4229 Jan, Right elbow pain M25.521 and Right wrist pain M25.531 [facility] [id number] [place] [address] 96193- 4938 Jan, [facility] [id number] [place] [address] 89120- 9790 Dec, Seborrheic keratoses L82.1 [facility] [id number] [place] [address] 02971- 6742 Dec, [facility] [id number] [place] [address] 65493- 1801 Dec, [facility] [id number] [place] [address] 35025- 3546 Dec, [facility] [id number] [place] [address] 44941- 1647 Dec, Fibromyalgia M79.7 and Hypothyroidism, unspecified type E03.9 [facility] [id number] [place] [address] 76574- 2336 Dec, Seborrheic keratoses L82.1 [facility] [id number] [place] [address] 40390- 1618 Dec, [facility] [id number] [place] [address] 08250- 2545 Dec, [facility] [id number] [place] [address] 04111- 0307 Nov, Sebaceous cyst L72.3 [facility] [id number] [place] [address] 44197- 4086 October, Breast cancer screening Z12.39 [facility] [id number] [place] [address] 63978- 3135 October, Fibromyalgia M79.7 ; Hypothyroidism, unspecified type E03.9 and Reflex sympathetic dystrophy G90.50 [facility] [address] [facility] [id number] [place] [address] October, Reflex sympathetic dystrophy G90.50 ; Fibromyalgia M79.7 and Hypothyroidism, unspecified type E03.9 IMMUNIZATIONS No Known Immunizations SOCIAL HISTORY Never Assessed REASON FOR VISIT Med Change PLAN OF CARE VITAL SIGNS MEDICATIONS Medication Instructions Dosage Frequency Start Date End Date Duration Status Celebrex 200 mg Orally Once a day 1 capsule with food 24h Nov, Dec, 30 day(s) Active RESULTS No Results PROCEDURES [...]
--- OUTSIDE RECORDS SUMMARY | 2018-03-07 17:48 | XMS REPORT ---
Author Author FRANK CHAPMAN Organization [facility] Address [address] [place] [address] Care Team Providers Care Title I Paraprofessional Name Role Phone FRANK CHAPMAN Unavailable PROBLEMS Type Condition ICD9-CM Code OUI95-WP Code Onset Dates Condition Status SNOMED Code Problem Reactive depression F32.9 Active 79097812 Problem Plantar wart of right foot B07.0 Active 67288171 Problem Gastroesophageal reflux disease, esophagitis presence not specified K21.9 Active 648425502 Problem Internal derangement of right knee M23.91 Active [id number] Problem Abnormal laboratory test R89.9 Active 779123678 Problem Mixed hyperlipidemia E78.2 Active 252918944 Problem Rosacea L71.9 Active 673762939 Problem Mild episode of recurrent major depressive disorder F33.0 Active 134787262 Problem Generalized anxiety disorder F41.1 Active 42672902 Problem Hypothyroidism, unspecified type E03.9 Active 33921720 Problem Right elbow pain M25.521 Active 90051281 Problem Right wrist pain M25.531 Active 79956394 Problem Reflex sympathetic dystrophy G90.50 Active 48787730 Problem Venous insufficiency I87.2 Active 44053745 Problem Fibromyalgia M79.7 Active 218493892 Problem Arthritis M19.90 Active 9182311 ALLERGIES No Information ENCOUNTERS Encounter Location Date Diagnosis [facility] [id number] [address] Mar, [facility] [address], [place] [address] Feb, [facility] [address], [place] [address] Feb, [facility] [address] [address] Feb, [facility] [id number] [place] [address] 08749- 8711 Feb, [place] [address] [address] Jan, Medicare annual wellness visit, initial Z00.00 ; Reactive depression F32.9 ; Reflex sympathetic dystrophy G90.50 ; Fibromyalgia M79.7 ; BMI 40.0-44.9, adult Z68.41 ; Hypothyroidism, unspecified type E03.9 ; Gastroesophageal reflux disease, esophagitis presence not specified K21.9 ; Family history of osteoporosis Z82.62 ; Venous insufficiency I87.2 ; Arthritis M19.90 ; Mixed hyperlipidemia E78.2 and Generalized anxiety disorder F41.1 [place] [address] [address]- [address] Jan, Generalized anxiety disorder F41.1 and Mild episode of recurrent major depressive disorder F33.0 [place] [address] [address]14- [address] Jan, Mild episode of recurrent major depressive disorder F33.0 and Generalized anxiety disorder F41.1 [place] [id number] [place] [address] 31038- 8808 Jan, Fibromyalgia M79.7 [place] [id number] [place] [address] 15330- 5875 Jan, Bronchospasm J98.01 [place] [id number] [place] [address] 52766- 4843 Jan, [place] [address] 68430- 3165 Jan, Generalized anxiety disorder F41.1 and Mild episode of recurrent major depressive disorder F33.0 [place] [address] 38649- 0425 Jan, Bronchitis J40 [place] [id number] [place] [address] 70620- 5535 Dec, Mild episode of recurrent major depressive disorder F33.0 [facility] [id number] [place] [address] 77159- 2248 Dec, Generalized anxiety disorder F41.1 and Mild episode of recurrent major depressive disorder F33.0 [facility] [id number] [place] [address] 27423- 5909 Dec, Fibromyalgia M79.7 ; Arthritis M19.90 and Generalized anxiety disorder F41.1 [facility] [id number] [place] [address] 46519- 8807 Dec, Mild episode of recurrent major depressive disorder F33.0 and Generalized anxiety disorder F41.1 [facility] [id number] [place] [address] 58141- 7071 Dec, Fibromyalgia M79.7 [facility] [id number] [place] [address] 03085- 1143 Dec, Bronchitis J40 and Internal derangement of right knee M23.91 [facility] [id number] [place] [address] 48545 -9040 Dec, Cough R05 [facility] [id number] [place] [address] 63133- 9393 Dec, Generalized anxiety disorder F41.1 and Mild episode of recurrent major depressive disorder F33.0 [facility] [address], [place] [address] 02[address] Dec, [facility] [id number] [place] [address] 23521 -4504 Dec, [facility] [id number] [place] [address] 83114- 5769 Dec, Mild episode of recurrent major depressive disorder F33.0 and Generalized anxiety disorder F41.1 [facility] [id number], [place] [address] 6111 Nov, [facility] [id number] [place] [address] 83164- 1000 Nov, [facility] [address], [place] [address] 33[address] Nov, [facility] [address], [place] [address] 1709 Nov, Internal derangement of right knee M23.91 [facility] [address], [place] [address] 4230 Nov, Generalized anxiety disorder F41.1 and Mild episode of recurrent major depressive disorder F33.0 [facility] [address], [place] [address] 8211 Nov, Internal derangement of right knee M23.91 [facility] [id number], [place] [address] 19 Nov, 2017 Acute right ankle pain M25.571 ; Acute pain of right knee M25.561 ; Acute left-sided low back pain without sciatica M54.5 and Right leg pain M79.604 [facility] [address], [place] [address] 88[address] 15 Nov, 2017 [facility] [address], [place] [address] 6[address] 14 Nov, 2017 Fibromyalgia M79.7 [facility] [address], [place] [address] 0664 13 Nov, 2017 Generalized anxiety disorder F41.1 and Mild episode of recurrent major depressive disorder F33.0 [facility] [address], [place] [address]- 3731 11 Nov, 2017 [facility] [id number], [place] [address] 4198 30 Oct, 2017 Generalized anxiety disorder F41.1 and Mild episode of recurrent major depressive disorder F33.0 [facility] [address], [place] [address] 8519 14 Oct, 2017 Fibromyalgia M79.7 [facility] [id number] [place] [address] 14651- 1183 October, [facility] [id number] [place] [address] 82393- 2155 October, Generalized anxiety disorder F41.1 and Mild episode of recurrent major depressive disorder F33.0 [facility] [id number] [place] [address] 02445- 4226 October, [facility] [address] 04636- 6956 Sep, Gastroesophageal reflux disease, esophagitis presence not specified K21.9 and Abnormal laboratory test R89.9 [place] [address] 19943- 1998 Sep, Fibromyalgia M79.7 [place] [id number] [place] [address] 36687- 6520 Sep, Generalized anxiety disorder F41.1 and Mild episode of recurrent major depressive disorder F33.0 [facility] [id number] [place] [address] 52755- 6447 Sep, Epigastric pain R10.13 [facility] [id number] [place] [address] 46093- 3723 Sep, Mild episode of recurrent major depressive disorder F33.0 and Generalized anxiety disorder F41.1 [place] [id number] [place] [address] 55685- 8066 Sep, Abnormal laboratory test R89.9 [facility] [id number] [place] [address] 82308- 3532 Sep, Generalized anxiety disorder F41.1 and Mild episode of recurrent major depressive disorder F33.0 [facility] [id number] [place] [address] 36913- 6315 Aug, Epigastric pain R10.13 and Encounter for therapeutic drug level monitoring Z51.81 [facility] [id number] [place] [address] 20401 -0194 Aug, Epigastric pain R10.13 and Gastro-esophageal reflux disease without esophagitis K21.9 [place] [id number] [place] [address] 67267- 7948 Aug, [place] [id number] [place] [address] 71376- 2273 Aug, Epigastric pain R10.13 [place] [address] 25091- 1879 Aug, Fibromyalgia M79.7 [place] [address] 77468- 9660 Aug, [place] [address] 49777- 5781 Aug, Generalized anxiety disorder F41.1 and Mild episode of recurrent major depressive disorder F33.0 [place] [address] 45709- 8430 Aug, Epigastric pain R10.13 ; Reflex sympathetic dystrophy G90.50 and Arthritis M19.90 [place] [address] 70219- 7613 Jul, Generalized anxiety disorder F41.1 and Mild episode of recurrent major depressive disorder F33.0 [place] [id number] [place] [address] 12960- 9066 Jul, BMI 40.0-44.9, adult Z68.41 ; Mild episode of recurrent major depressive disorder F33.0 and Generalized anxiety disorder F41.1 [place] [id number] [place] [address] 12007- 4356 Jul, Fibromyalgia M79.7 [place] [id number] [place] [address] 46086- 4957 Jun, Mild episode of recurrent major depressive disorder F33.0 and Generalized anxiety disorder F41.1 [place] [id number] [place] [address] 20287- 7425 Jun, Fibromyalgia M79.7 [facility] [address], [place] [address]- 8976 Jun, Generalized anxiety disorder F41.1 and Mild episode of recurrent major depressive disorder F33.0 [facility] [address], [place] [address]- 8556 Jun, Generalized anxiety disorder F41.1 and Mild episode of recurrent major depressive disorder F33.0 [facility] [id number] [place] [address] 96388- 9883 Jun, Generalized anxiety disorder F41.1 and Mild episode of recurrent major depressive disorder F33.0 [facility] [id number] [place] [address] 53827- 7596 Jun, [facility] [id number] [place] [address] 60886- 7260 Jun, Generalized anxiety disorder F41.1 and Mild episode of recurrent major depressive disorder F33.0 [facility] [id number] [place] [address] 87519- 1336 May, Fibromyalgia M79.7 [facility] [id number] [place] [address] 02624- 1615 May, Generalized anxiety disorder F41.1 and Mild episode of recurrent major depressive disorder F33.0 [facility] [id number] [place] [address] 52705- 0204 May, Mixed hyperlipidemia E78.2 ; Arthritis M19.90 ; Reactive depression F32.9 and Hypothyroidism, unspecified type E03.9 [facility] [id number] [place] [address] 35595- 5289 May, Arthritis M19.90 ; Reactive depression F32.9 ; Mixed hyperlipidemia E78.2 and Hypothyroidism, unspecified type E03.9 [facility] [address], [place] [address]- 1742 Apr, Fibromyalgia M79.7 [facility] [id number] [place] [address] 02119 2546 Apr, [facility] [address] 06691 2546 Apr, Fibromyalgia M79.7 [facility] [id number] [place] [address] 62437 2546 Mar, Fibromyalgia M79.7 [facility] [address] 22683 2546 Mar, [facility] [id number] [place] [address] 81984 2546 Mar, Fibromyalgia M79.7 [facility] [id number] [place] [address] 25088- 7086 Mar, [facility] [id number] [place] [address] 90078- 8256 Feb, Reflex sympathetic dystrophy G90.50 ; Right arm pain M79.601 and Fibromyalgia M79.7 [facility] [id number] [place] [address] 86030 2546 Feb, [facility] [id number] [place] [address] 58810 2546 Feb, Anxiety F41.9 [facility] [id number] [place] [address] 12245 2546 Feb, Fibromyalgia M79.7 [facility] [id number] [place] [address] 74212 2546 Feb, [facility] [id number] [place] [address] 62824 2546 Feb, [facility] [id number] [place] [address] 65289 2549 Jan, Temporal headache R51 [facility] [id number] [place] [address] 87811 2544 Jan, Fibromyalgia M79.7 [facility] [id number] [place] [address] 45081- 2355 Dec, Fibromyalgia M79.7 [facility] [id number] [place] [address] 09775- 0341 Nov, Peroneal tendonitis, unspecified laterality M76.70 and Plantar fasciitis, bilateral M72.2 [place] [address] 96459- 2203 Nov, Fibromyalgia M79.7 [place] [id number] [place] [address] 42372- 8412 October, Fibromyalgia M79.7 [place] [id number] [place] [address] 00907- 2371 October, Plantar fasciitis, bilateral M72.2 and Peroneal tendonitis, unspecified laterality M76.70 [place] [id number] [place] [address] 81603- 6536 October, Fibromyalgia M79.7 [place] [id number] [place] [address] 41599- 8680 Sep, Anxiety F41.9 [place] [id number] [place] [address] 49694- 5161 Aug, Anxiety F41.9 and Adjustment disorder with anxiety F43.22 [place] [id number] [place] [address] 27225- 2491 Aug, Pain of left foot M79.672 [place] [id number] [place] [address] 48398- 0351 Aug, Pain of left foot M79.672 and Pain in right foot M79.671 [place] [id number] [place] [address] 78613- 1794 Aug, Arthritis M19.90 ; Reactive depression F32.9 ; Fibromyalgia M79.7 ; Rosacea L71.9 ; Pain in right foot M79.671 and Pain of left foot M79.672 [place] [address] 15299- 6380 Aug, Anxiety F41.9 ; Adjustment disorder with anxiety F43.22 and Reactive depression F32.9 [place] [address] 17947- 9256 14 Aug, 2016 Right elbow pain M25.521 [place] [address] 41166- 6379 Aug, Plantar wart of right foot B07.0 and Actinic keratosis L57.0 [place] [address] 05376- 8983 Aug, Fibromyalgia M79.7 [place] [address] 56223- 0166 Jul, Arthritis M19.90 ; Hypothyroidism, unspecified type E03.9 ; Reactive depression F32.9 and Venous insufficiency I87.2 [place] [address] 86703- 0899 Jul, Gastroesophageal reflux disease, esophagitis presence not specified K21.9 [place] [address] 24740- 7144 Jul, Reflex sympathetic dystrophy G90.50 [place] [address] 73768- 5172 Jul, Anxiety F41.9 ; Adjustment disorder with anxiety F43.22 and Reactive depression F32.9 [place] [address] 56581- 4196 Jul, [place] [address] 76950- 0141 03 Jul, 2016 Right elbow pain M25.521 [place] [address] 22453- 4816 Jun, Fibromyalgia M79.7 [facility] [id number] [place] [address] 83531- 6051 Jun, Anxiety F41.9 ; Adjustment disorder with anxiety F43.22 and Reactive depression F32.9 [facility] [address] 18360- 7746 Jun, [facility] [address] 25026- 8537 Jun, Atypical chest pain R07.89 and Adjustment disorder with anxiety F43.22 [facility] [address] [id number] Jun, Chest pain, unspecified type R07.9 [facility] [address] 98188- 5061 Jun, Fibromyalgia M79.7 [facility] [address] 60623- 6496 May, Anxiety F41.9 [facility] [address] 39494- 9238 May, [facility] [address] 08600- 4524 May, Right elbow pain M25.521 [facility] [address] 71279- 5564 Apr, Reflex sympathetic dystrophy G90.50 and Encounter for immunization Z23 [facility] [address] 19005- 0577 Apr, [facility] [address] 84349- 0883 Mar, [facility] [address] 31820- 3443 Feb, [facility] [address] 39194- 2326 Feb, [facility] [address], [place] [address]- 1340 Jan, [facility] [id number] [place] [address] 45369- 9230 Jan, Right elbow pain M25.521 and Right wrist pain M25.531 [facility] [id number] [place] [address] 65527- 6956 Jan, [facility] [id number] [place] [address] 04032- 6705 Dec, Seborrheic keratoses L82.1 [facility] [id number] [place] [address] 00690- 4664 Dec, [facility] [id number] [place] [address] 94741- 4430 Dec, [facility] [id number] [place] [address] 28396- 9667 Dec, [facility] [id number] [place] [address] 61403- 5246 Dec, Fibromyalgia M79.7 and Hypothyroidism, unspecified type E03.9 [facility] [id number] [place] [address] 28099- 0474 Dec, Seborrheic keratoses L82.1 [facility] [id number] [place] [address] 42635- 8166 Dec, [facility] [id number] [place] [address] 18928- 2548 Dec, [facility] [id number] [place] [address] 30195- 1014 Nov, Sebaceous cyst L72.3 [facility] [id number] [place] [address] 66705- 8737 October, Breast cancer screening Z12.39 [facility] [id number] [place] [address] 48996- 7087 October, Fibromyalgia M79.7 ; Hypothyroidism, unspecified type E03.9 and Reflex sympathetic dystrophy G90.50 [facility] [address] [facility] [id number] [place] [address]- 6748 October, Reflex sympathetic dystrophy G90.50 ; Fibromyalgia M79.7 and Hypothyroidism, unspecified type E03.9 IMMUNIZATIONS No Known Immunizations SOCIAL HISTORY Never Assessed REASON FOR VISIT f/u PLAN OF CARE Activity Details Follow Up 2 Weeks Reason:anxiety & depression VITAL SIGNS MEDICATIONS Unknown Medications RESULTS No Results PROCEDURES Procedure Date Ordered Result Body Site [facility] VISIT MENTAL HEALTH ESTAB PT December 14, 2017 Psychotherapy, patient &/family, 30 minutes, established patient December 14, 2017 INSTRUCTIONS MEDICATIONS ADMINISTERED No Known Medications [...]
--- OUTSIDE RECORDS SUMMARY | 2018-03-07 17:49 | XMS REPORT ---
Author Author FRANK CHAPMAN Organization [facility] Address [address] [place] [address] Care Team Providers Care Manometer Technician Name Role Phone FRANK CHAPMAN Unavailable PROBLEMS Type Condition ICD9-CM Code IFI12-YA Code Onset Dates Condition Status SNOMED Code Problem Reactive depression F32.9 Active 67557277 Problem Plantar wart of right foot B07.0 Active 09440136 Problem Gastroesophageal reflux disease, esophagitis presence not specified K21.9 Active 739839461 Problem Internal derangement of right knee M23.91 Active [id number] Problem Abnormal laboratory test R89.9 Active 656526532 Problem Mixed hyperlipidemia E78.2 Active 728312879 Problem Rosacea L71.9 Active 384292736 Problem Mild episode of recurrent major depressive disorder F33.0 Active 711650175 Problem Generalized anxiety disorder F41.1 Active 25229672 Problem Hypothyroidism, unspecified type E03.9 Active 95471629 Problem Right elbow pain M25.521 Active 31710910 Problem Right wrist pain M25.531 Active 44400014 Problem Reflex sympathetic dystrophy G90.50 Active 96972764 Problem Venous insufficiency I87.2 Active 45065412 Problem Fibromyalgia M79.7 Active 468007058 Problem Arthritis M19.90 Active 6540184 ALLERGIES No Information ENCOUNTERS Encounter Location Date Diagnosis [facility] [id number] [address] Feb, [facility] [address], [place] [address] Feb, [facility] [address], [place] [address] Feb, [facility] [id number], [place] [address] 9[address] Feb, [facility] [address], [place] [address] 00[address] Jan, [facility] [id number] [place] [address] 95947- 1451 Jan, Medicare annual wellness visit, initial Z00.00 [facility] [address], [place] [address] Jan, [facility] [id number] [place] [address] 77515- 4252 Jan, Mild episode of recurrent major depressive disorder F33.0 and Generalized anxiety disorder F41.1 [facility] [id number] [place] [address] 75275- 1230 Jan, Fibromyalgia M79.7 [facility] [id number] [place] [address] 39633- 8635 Jan, Bronchospasm J98.01 [facility] [id number] [place] [address] 35292- 6182 Jan, [facility] [id number] [place] [address] 75251- 6662 Jan, Generalized anxiety disorder F41.1 and Mild episode of recurrent major depressive disorder F33.0 [facility] [address], [place] [address] 89[address] Jan, Bronchitis J40 [facility] [address], [place] [address] Dec, Mild episode of recurrent major depressive disorder F33.0 [facility] [address], [place] [address] 6[address] Dec, Generalized anxiety disorder F41.1 and Mild episode of recurrent major depressive disorder F33.0 [facility] [address], [place] [address] 3[address] Dec, Fibromyalgia M79.7 ; Arthritis M19.90 and Generalized anxiety disorder F41.1 [facility] [id number], [place] [address] Dec, Mild episode of recurrent major depressive disorder F33.0 and Generalized anxiety disorder F41.1 [facility] [id number] [place] [address] 73084- 8885 Dec, Fibromyalgia M79.7 [facility] [id number] [place] [address] 34635- 4670 Dec, Bronchitis J40 and Internal derangement of right knee M23.91 [facility] [address], [place] [address] Dec, Cough R05 [facility] [id number] [place] [address] 26923- 5893 Dec, Generalized anxiety disorder F41.1 and Mild episode of recurrent major depressive disorder F33.0 [facility] [id number] [place] [address] 20731- 5731 Dec, [facility] [id number] [place] [address] 40823 -6714 Dec, [facility] [id number] [place] [address] 53484- 9315 Dec, Mild episode of recurrent major depressive disorder F33.0 and Generalized anxiety disorder F41.1 [facility] [address], [place] [address] 7613 Nov, [facility] [id number] [place] [address] 28584- 0378 Nov, [facility] [address], [place] [address] 2602 Nov, [facility] [id number] [place] [address] 61059- 1034 Nov, Internal derangement of right knee M23.91 [facility] [address], [place] [address] 5730 Nov, Generalized anxiety disorder F41.1 and Mild episode of recurrent major depressive disorder F33.0 [facility] [address], [place] [address] 22 Nov, 2017 Internal derangement of right knee M23.91 [facility] [id number], [place] [address] 19 Nov, 2017 Acute right ankle pain M25.571 ; Acute pain of right knee M25.561 ; Acute left-sided low back pain without sciatica M54.5 and Right leg pain M79.604 [facility] [address], [place] [address] 15 Nov, 2017 [facility] [id number] [place] [address] 40841- 5759 Nov, Fibromyalgia M79.7 [facility] [id number] [place] [address] 24692- 2935 Nov, Generalized anxiety disorder F41.1 and Mild episode of recurrent major depressive disorder F33.0 [facility] [address], [place] [address]- 1486 Nov, [facility] [id number] [place] [address] 23181- 5032 October, Generalized anxiety disorder F41.1 and Mild episode of recurrent major depressive disorder F33.0 [facility] [address], [place] [address] 8194 October, Fibromyalgia M79.7 [facility] [address], [place] [address]- 2047 October, [facility] [id number] [place] [address] 35623- 6788 October, Generalized anxiety disorder F41.1 and Mild episode of recurrent major depressive disorder F33.0 [facility] [address], [place] [address]- 1606 October, [facility] [id number] [place] [address] 20694- 3012 24 Sep, 2017 Gastroesophageal reflux disease, esophagitis presence not specified K21.9 and Abnormal laboratory test R89.9 [facility] [id number] [place] [address] 12958- 9735 18 Sep, 2017 Fibromyalgia M79.7 [facility] [id number] [place] [address] 64685- 9959 17 Sep, 2017 Generalized anxiety disorder F41.1 and Mild episode of recurrent major depressive disorder F33.0 [facility] [id number] [place] [address] 06445- 8530 Sep, Epigastric pain R10.13 [facility] [address] 21868- 2399 Sep, Mild episode of recurrent major depressive disorder F33.0 and Generalized anxiety disorder F41.1 [facility] [address] 07632- 3846 Sep, Abnormal laboratory test R89.9 [facility] [id number] [place] [address] 37641- 0161 Sep, Generalized anxiety disorder F41.1 and Mild episode of recurrent major depressive disorder F33.0 [facility] [id number] [place] [address] 76371- 3256 29 Aug, 2017 Epigastric pain R10.13 and Encounter for therapeutic drug level monitoring Z51.81 [facility] [id number] [place] [address] 07664 -0551 Aug, Epigastric pain R10.13 and Gastro-esophageal reflux disease without esophagitis K21.9 [facility] [id number] [place] [address] 33635- 2689 Aug, [facility] [id number] [place] [address] 41235- 3671 Aug, Epigastric pain R10.13 [facility] [id number] [place] [address] 01586- 8210 Aug, Fibromyalgia M79.7 [facility] [id number] [place] [address] 38588- 3392 Aug, [facility] [id number] [place] [address] 73297- 3392 Aug, Generalized anxiety disorder F41.1 and Mild episode of recurrent major depressive disorder F33.0 [facility] [address] 60409- 3708 Aug, Epigastric pain R10.13 ; Reflex sympathetic dystrophy G90.50 and Arthritis M19.90 [facility] [id number] [place] [address] 91668- 0192 Jul, Generalized anxiety disorder F41.1 and Mild episode of recurrent major depressive disorder F33.0 [facility] [id number] [place] [address] 68231- 2672 Jul, BMI 40.0-44.9, adult Z68.41 ; Mild episode of recurrent major depressive disorder F33.0 and Generalized anxiety disorder F41.1 [facility] [id number] [place] [address] 12979- 6345 Jul, Fibromyalgia M79.7 [facility] [id number] [place] [address] 41888- 5403 Jun, Mild episode of recurrent major depressive disorder F33.0 and Generalized anxiety disorder F41.1 [facility] [id number] [place] [address] 95543- 9671 Jun, Fibromyalgia M79.7 [facility] [id number] [place] [address] 50321- 2331 Jun, Generalized anxiety disorder F41.1 and Mild episode of recurrent major depressive disorder F33.0 [facility] [id number] [place] [address] 99964- 1494 Jun, Generalized anxiety disorder F41.1 and Mild episode of recurrent major depressive disorder F33.0 [facility] [address], [place] [address]- 7717 Jun, Generalized anxiety disorder F41.1 and Mild episode of recurrent major depressive disorder F33.0 [facility] [address], [place] [address]- 4158 Jun, [facility] [id number] [place] [address] 55153- 1804 Jun, Generalized anxiety disorder F41.1 and Mild episode of recurrent major depressive disorder F33.0 [facility] [address] [place] [address] 66566- 1696 May, Fibromyalgia M79.7 [facility] [id number] [place] [address] 91652- 5946 May, Generalized anxiety disorder F41.1 and Mild episode of recurrent major depressive disorder F33.0 [facility] [address] [place] [address] 53567- 8100 May, Mixed hyperlipidemia E78.2 ; Arthritis M19.90 ; Reactive depression F32.9 and Hypothyroidism, unspecified type E03.9 [facility] [address] [place] [address] 42485- 1455 May, Arthritis M19.90 ; Reactive depression F32.9 ; Mixed hyperlipidemia E78.2 and Hypothyroidism, unspecified type E03.9 [facility] [address], [place] [address]- 8015 Apr, Fibromyalgia M79.7 [facility] [address], [place] [address]- 9028 Apr, [facility] [id number] [place] [address] 34059- 3176 Apr, Fibromyalgia M79.7 [facility] [address], [place] [address]- 7799 Mar, Fibromyalgia M79.7 [facility] [address] [place] [address]- 3688 Mar, [facility] [address] 95881- 6909 Mar, Fibromyalgia M79.7 [facility] [address] 02952- 3736 Mar, [facility] [address] 92963- 5970 Feb, Reflex sympathetic dystrophy G90.50 ; Right arm pain M79.601 and Fibromyalgia M79.7 [facility] [address] 65432- 8392 Feb, [facility] [address] 57633- 9434 Feb, Anxiety F41.9 [facility] [address] 87916- 7259 Feb, Fibromyalgia M79.7 [facility] [address] 81476- 0978 Feb, [facility] [address] 66917- 6905 Feb, [facility] [address] 22472- 1817 Jan, Temporal headache R51 [facility] [id number] [place] [address] 41661- 7558 Jan, Fibromyalgia M79.7 [facility] [id number] [place] [address] 80447- 1426 Dec, Fibromyalgia M79.7 [facility] [address] 59750- 0476 Nov, Peroneal tendonitis, unspecified laterality M76.70 and Plantar fasciitis, bilateral M72.2 [facility] [address] 11493- 4558 Nov, Fibromyalgia M79.7 [facility] [id number] [place] [address] 05800- 3827 October, Fibromyalgia M79.7 [facility] [id number] [place] [address] 80234- 9556 October, Plantar fasciitis, bilateral M72.2 and Peroneal tendonitis, unspecified laterality M76.70 [facility] [address] 43534- 5827 October, Fibromyalgia M79.7 [facility] [address] 08850- 3607 Sep, Anxiety F41.9 [facility] [address] 82467- 6587 Aug, Anxiety F41.9 and Adjustment disorder with anxiety F43.22 [facility] [address] 27400- 4007 Aug, Pain of left foot M79.672 [facility] [address] 63625- 2629 Aug, Pain of left foot M79.672 and Pain in right foot M79.671 [facility] [id number] [place] [address] 87910- 4177 Aug, Arthritis M19.90 ; Reactive depression F32.9 ; Fibromyalgia M79.7 ; Rosacea L71.9 ; Pain in right foot M79.671 and Pain of left foot M79.672 [facility] [id number] [place] [address] 46351- 6555 Aug, Anxiety F41.9 ; Adjustment disorder with anxiety F43.22 and Reactive depression F32.9 [facility] [id number] [place] [address] 10857- 7939 Aug, Right elbow pain M25.521 [address] [address] 15093- 4961 Aug, Plantar wart of right foot B07.0 and Actinic keratosis L57.0 [facility] [facility] [address] 67417- 6986 Aug, Fibromyalgia M79.7 [facility] [address] 97548- 0261 Jul, Arthritis M19.90 ; Hypothyroidism, unspecified type E03.9 ; Reactive depression F32.9 and Venous insufficiency I87.2 [facility] [address] 35294- 7111 Jul, Gastroesophageal reflux disease, esophagitis presence not specified K21.9 [facility] [address] 84770- 8090 Jul, Reflex sympathetic dystrophy G90.50 [facility] [address] 23016- 2912 Jul, Anxiety F41.9 ; Adjustment disorder with anxiety F43.22 and Reactive depression F32.9 [facility] [address] 07027- 4280 Jul, [facility] [address] 89241- 1180 Jul, Right elbow pain M25.521 [facility] [facility] [address] 33495- 0449 Jun, Fibromyalgia M79.7 [facility] [address] 19307- 1467 Jun, Anxiety F41.9 ; Adjustment disorder with anxiety F43.22 and Reactive depression F32.9 [facility] [facility] [address] 12524- 4895 Jun, [facility] [address] 93110- 9960 Jun, Atypical chest pain R07.89 and Adjustment disorder with anxiety F43.22 [facility] [address] [id number] Jun, Chest pain, unspecified type R07.9 [facility] [address] 15458- 8622 Jun, Fibromyalgia M79.7 [facility] [address] 35672- 7182 May, Anxiety F41.9 [facility] [address] 44264- 0275 May, [facility] [address] 01547- 0045 May, Right elbow pain M25.521 [facility] [address] 54926- 8280 Apr, Reflex sympathetic dystrophy G90.50 and Encounter for immunization Z23 [facility] [address] 68307- 5231 Apr, [facility] [address] 68826- 6348 Mar, [facility] [id number] [place] [address] 54382- 7034 Feb, [facility] [address] 06787- 4679 Feb, [facility] [id number] [place] [address] 65598- 7339 Jan, [facility] [address] 84760- 2611 Jan, Right elbow pain M25.521 and Right wrist pain M25.531 [facility] [address] 40480- 3310 Jan, [facility] [address] [address]- 7602 Dec, Seborrheic keratoses L82.1 [facility] [id number] [place] [address] 77016- 1289 Dec, [facility] [id number] [place] [address] 93332- 3681 Dec, [facility] [id number] [place] [address] 36301- 2218 Dec, [facility] [id number] [place] [address] 75700- 1582 Dec, Fibromyalgia M79.7 and Hypothyroidism, unspecified type E03.9 [facility] [id number] [place] [address] 20934- 3046 Dec, Seborrheic keratoses L82.1 [facility] [id number] [place] [address] 54463- 5300 Dec, [facility] [id number] [place] [address] 33758- 2046 Dec, [facility] [id number] [place] [address] 46471- 5521 Nov, Sebaceous cyst L72.3 [facility] [id number] [place] [address] 06964- 0421 October, Breast cancer screening Z12.39 [facility] [id number] [place] [address] 39915- 0038 October, Fibromyalgia M79.7 ; Hypothyroidism, unspecified type E03.9 and Reflex sympathetic dystrophy G90.50 [facility] [address] [address]- 3079 October, Reflex sympathetic dystrophy G90.50 ; Fibromyalgia M79.7 and Hypothyroidism, unspecified type E03.9 IMMUNIZATIONS No Known Immunizations SOCIAL HISTORY Never Assessed REASON FOR VISIT BH f/u, Anxiety and depresson. PLAN OF CARE Activity Details Follow Up 2 Weeks Reason:mood VITAL SIGNS MEDICATIONS Unknown Medications RESULTS No Results PROCEDURES Procedure Date Ordered Result Body Site [facility] VISIT MENTAL HEALTH ESTAB PT November 30, 2017 Psychotherapy, patient &/family, 45 minutes, established patient November 30, 2017 INSTRUCTIONS MEDICATIONS ADMINISTERED No Known Medications [...]
--- OUTSIDE RECORDS SUMMARY | 2018-03-07 17:49 | XMS REPORT ---
Author Author ANA MARIA SCHULTZ [facility] IN [facility] Address [address] [place] [address] Care Team Providers Care Risk Adjustment Specialist Name Role Phone ANA MARIA SCHULTZ Unavailable PROBLEMS Type Condition ICD9-CM Code ARA23-GC Code Onset Dates Condition Status SNOMED Code Problem Reactive depression F32.9 Active 03756862 Problem Plantar wart of right foot B07.0 Active 82133714 Problem Gastroesophageal reflux disease, esophagitis presence not specified K21.9 Active 284597824 Problem Internal derangement of right knee M23.91 Active [id number] Problem Abnormal laboratory test R89.9 Active 801106314 Problem Mixed hyperlipidemia E78.2 Active 099361608 Problem Rosacea L71.9 Active 624095662 Problem Mild episode of recurrent major depressive disorder F33.0 Active 903276404 Problem Generalized anxiety disorder F41.1 Active 23320039 Problem Hypothyroidism, unspecified type E03.9 Active 21393332 Problem Right elbow pain M25.521 Active 45520582 Problem Right wrist pain M25.531 Active 76183588 Problem Reflex sympathetic dystrophy G90.50 Active 88035217 Problem Venous insufficiency I87.2 Active 66924535 Problem Fibromyalgia M79.7 Active 704516641 Problem Arthritis M19.90 Active 8137688 ALLERGIES Substance Reaction Event Type Date Status Robaxin Unknown Drug Allergy Nov, Active Penicillin V Potassium Unknown Drug Allergy Nov, Active Demerol Unknown Drug Allergy Nov, Active Codeine Sulfate Unknown Drug Allergy Nov, Active ENCOUNTERS Encounter Location Date Diagnosis [facility] [id number] [address] Mar, [facility] [id number] [address] Feb, [facility] [id number] [place] [address] 67643- 0758 Feb, [place] [id number] [place] [address] 78182- 3668 Feb, [facility] [id number] [place] [address] 15107- 2896 Feb, [facility] [id number] [place] [address] 60250- 0452 Jan, Medicare annual wellness visit, initial Z00.00 ; Routine adult health maintenance Z00.00 ; Family history of osteoporosis Z82.62 ; Reflex sympathetic dystrophy G90.50 ; Fibromyalgia M79.7 ; Hypothyroidism, unspecified type E03.9 ; Reactive depression F32.9 ; Gastroesophageal reflux disease, esophagitis presence not specified K21.9 ; Arthritis M19.90 ; Venous insufficiency I87.2 ; Mixed hyperlipidemia E78.2 and BMI 40.0-44.9, adult Z68.41 [facility] [id number] [place] [address] 44540- 8812 Jan, Generalized anxiety disorder F41.1 and Mild episode of recurrent major depressive disorder F33.0 [facility] [id number] [place] [address] 10805- 9994 Jan, Mild episode of recurrent major depressive disorder F33.0 and Generalized anxiety disorder F41.1 [facility] [id number] [place] [address] 20471- 4818 Jan, Fibromyalgia M79.7 [facility] [id number] [place] [address] 16628- 6568 Jan, Bronchospasm J98.01 [facility] [id number] [place] [address] 38218- 5088 Jan, [facility] [id number] [place] [address] 64375- 1322 Jan, Generalized anxiety disorder F41.1 and Mild episode of recurrent major depressive disorder F33.0 [facility] [id number] [place] [address] 79069- 1308 Jan, Bronchitis J40 [facility] [id number] [place] [address] 78913- 1269 Dec, Mild episode of recurrent major depressive disorder F33.0 [facility] [id number] [place] [address] 64211- 4931 Dec, Generalized anxiety disorder F41.1 and Mild episode of recurrent major depressive disorder F33.0 [facility] [id number] [place] [address] 36853- 0964 Dec, Fibromyalgia M79.7 ; Arthritis M19.90 and Generalized anxiety disorder F41.1 [facility] [id number] [place] [address] 05370- 3096 Dec, Mild episode of recurrent major depressive disorder F33.0 and Generalized anxiety disorder F41.1 [facility] [facility] [id number] [place] [address] 64898- 0503 Dec, Fibromyalgia M79.7 [facility] [id number] [place] [address] 71358- 1584 Dec, Bronchitis J40 and Internal derangement of right knee M23.91 [facility] [id number] [place] [address] 05868 -1040 Dec, Cough R05 [facility] [id number] [place] [address] 60652- 8650 Dec, Generalized anxiety disorder F41.1 and Mild episode of recurrent major depressive disorder F33.0 [facility] [address], [place] [address] 1072 Dec, [facility] [id number] [place] [address] 78065 -5767 Dec, [facility] [id number] [place] [address] 93563- 8371 Dec, Mild episode of recurrent major depressive disorder F33.0 and Generalized anxiety disorder F41.1 [facility] [address], [place] [address]- 2171 30 Nov, 2017 [facility] [address], [place] [address] 6898 Nov, [facility] [address], [place] [address] 2609 Nov, [facility] [id number] [place] [address] 37518- 7691 Nov, Internal derangement of right knee M23.91 [facility] [address], [place] [address]- 6407 Nov, Generalized anxiety disorder F41.1 and Mild episode of recurrent major depressive disorder F33.0 [facility] [address], [place] [address] 7838 Nov, Internal derangement of right knee M23.91 [facility] [address], [place] [address] Nov, Acute right ankle pain M25.571 ; Acute pain of right knee M25.561 ; Acute left-sided low back pain without sciatica M54.5 and Right leg pain M79.604 [facility] [address], [place] [address] 9017 15 Nov, 2017 [facility] [address], [place] [address] 5754 14 Nov, 2017 Fibromyalgia M79.7 [facility] [address], [place] [address]- 5105 13 Nov, 2017 Generalized anxiety disorder F41.1 and Mild episode of recurrent major depressive disorder F33.0 [facility] [address], [place] [address]- 8573 Nov, [facility] [address], [place] [address]- 9454 October, Generalized anxiety disorder F41.1 and Mild episode of recurrent major depressive disorder F33.0 [facility] [id number] [place] [address] 28459- 9042 October, Fibromyalgia M79.7 [facility] [id number] [place] [address] 91924- 4196 October, [facility] [id number] [place] [address] 76686- 4964 October, Generalized anxiety disorder F41.1 and Mild episode of recurrent major depressive disorder F33.0 [facility] [id number] [place] [address] 85185- 0167 October, [facility] [id number] [place] [address] 91378- 7664 Sep, Gastroesophageal reflux disease, esophagitis presence not specified K21.9 and Abnormal laboratory test R89.9 [facility] [id number] [place] [address] 45074- 1600 Sep, Fibromyalgia M79.7 [facility] [id number] [place] [address] 02632- 5358 Sep, Generalized anxiety disorder F41.1 and Mild episode of recurrent major depressive disorder F33.0 [facility] [id number] [place] [address] 31086- 7864 Sep, Epigastric pain R10.13 [facility] [id number] [place] [address] 32521- 3845 Sep, Mild episode of recurrent major depressive disorder F33.0 and Generalized anxiety disorder F41.1 [facility] [id number] [place] [address] 51960- 9095 Sep, Abnormal laboratory test R89.9 [facility] [id number] [place] [address] 28670- 0429 Sep, Generalized anxiety disorder F41.1 and Mild episode of recurrent major depressive disorder F33.0 [facility] [id number] [place] [address] 42271- 4114 29 Aug, 2017 Epigastric pain R10.13 and Encounter for therapeutic drug level monitoring Z51.81 [facility] [id number] [place] [address] 67543 -0039 Aug, Epigastric pain R10.13 and Gastro-esophageal reflux disease without esophagitis K21.9 [facility] [id number] [place] [address] 30190- 2967 Aug, [facility] [address] 61331- 7184 Aug, Epigastric pain R10.13 [place] [address] 55972- 8453 Aug, Fibromyalgia M79.7 [facility] [id number] [place] [address] 66123- 1908 Aug, [facility] [address] 07456- 6911 Aug, Generalized anxiety disorder F41.1 and Mild episode of recurrent major depressive disorder F33.0 [place] [address] 28826- 7035 Aug, Epigastric pain R10.13 ; Reflex sympathetic dystrophy G90.50 and Arthritis M19.90 [facility] [id number] [place] [address] 81453- 6441 Jul, Generalized anxiety disorder F41.1 and Mild episode of recurrent major depressive disorder F33.0 [facility] [id number] [place] [address] 03081- 8375 Jul, BMI 40.0-44.9, adult Z68.41 ; Mild episode of recurrent major depressive disorder F33.0 and Generalized anxiety disorder F41.1 [facility] [id number] [place] [address] 21099- 8361 Jul, Fibromyalgia M79.7 [facility] [address] 81008- 4039 Jun, Mild episode of recurrent major depressive disorder F33.0 and Generalized anxiety disorder F41.1 [facility] [id number] [place] [address] 06295- 4136 Jun, Fibromyalgia M79.7 [facility] [id number] [place] [address] 76362- 4576 Jun, Generalized anxiety disorder F41.1 and Mild episode of recurrent major depressive disorder F33.0 [facility] [id number] [place] [address] 25644- 3559 Jun, Generalized anxiety disorder F41.1 and Mild episode of recurrent major depressive disorder F33.0 [facility] [id number] [place] [address] 12117- 9422 Jun, Generalized anxiety disorder F41.1 and Mild episode of recurrent major depressive disorder F33.0 [facility] [id number] [place] [address] 07755- 7435 Jun, [facility] [id number] [place] [address] 78666- 8650 Jun, Generalized anxiety disorder F41.1 and Mild episode of recurrent major depressive disorder F33.0 [facility] [id number] [place] [address] 61173- 8562 May, Fibromyalgia M79.7 [facility] [address] [place] [address] 98834- 7587 May, Generalized anxiety disorder F41.1 and Mild episode of recurrent major depressive disorder F33.0 [facility] [address], [place] [address]- 3686 May, Mixed hyperlipidemia E78.2 ; Arthritis M19.90 ; Reactive depression F32.9 and Hypothyroidism, unspecified type E03.9 [facility] [address] [place] [address] 59090- 1294 May, Arthritis M19.90 ; Reactive depression F32.9 ; Mixed hyperlipidemia E78.2 and Hypothyroidism, unspecified type E03.9 [facility] [id number] [place] [address] 39513- 7785 Apr, Fibromyalgia M79.7 [facility] [id number] [place] [address] 77182- 1674 Apr, [facility] [address] 42751- 4090 Apr, Fibromyalgia M79.7 [facility] [address] 59102- 3472 Mar, Fibromyalgia M79.7 [facility] [address] 09642- 3997 Mar, [facility] [address] 30281- 2473 Mar, Fibromyalgia M79.7 [facility] [address] 76513- 1949 Mar, [facility] [address] 17519- 3641 Feb, Reflex sympathetic dystrophy G90.50 ; Right arm pain M79.601 and Fibromyalgia M79.7 [facility] [id number] [place] [address] 56634- 6286 Feb, [facility] [address] 45849- 7509 Feb, Anxiety F41.9 [facility] [id number] [place] [address] 17813- 1067 Feb, Fibromyalgia M79.7 [facility] [address] 02022- 6858 Feb, [facility] [address] 94717- 9152 Feb, [facility] [address] 58078- 4518 Jan, Temporal headache R51 [facility] [id number] [place] [address] 29669- 4309 Jan, Fibromyalgia M79.7 [facility] [id number] [place] [address] 48416- 4256 Dec, Fibromyalgia M79.7 [facility] [id number] [place] [address] 61956- 6488 Nov, Peroneal tendonitis, unspecified laterality M76.70 and Plantar fasciitis, bilateral M72.2 [facility] [id number] [place] [address] 83690- 7252 Nov, Fibromyalgia M79.7 [facility] [id number] [place] [address] 43066- 0439 October, Fibromyalgia M79.7 [facility] [id number] [place] [address] 91334- 6254 October, Plantar fasciitis, bilateral M72.2 and Peroneal tendonitis, unspecified laterality M76.70 [facility] [id number] [place] [address] 31758- 2698 October, Fibromyalgia M79.7 [facility] [id number] [place] [address] 62421- 9737 Sep, Anxiety F41.9 [facility] [id number] [place] [address] 07596- 3324 Aug, Anxiety F41.9 and Adjustment disorder with anxiety F43.22 [facility] [id number] [place] [address] 48100- 3318 Aug, Pain of left foot M79.672 [facility] [id number] [place] [address] 18684- 5760 Aug, Pain of left foot M79.672 and Pain in right foot M79.671 [facility] [id number] [place] [address] 22407- 0359 Aug, Arthritis M19.90 ; Reactive depression F32.9 ; Fibromyalgia M79.7 ; Rosacea L71.9 ; Pain in right foot M79.671 and Pain of left foot M79.672 [place] [address] 64791- 5071 Aug, Anxiety F41.9 ; Adjustment disorder with anxiety F43.22 and Reactive depression F32.9 [place] [address] 94993- 1203 14 Aug, 2016 Right elbow pain M25.521 [place] [address] 89004- 5918 Aug, Plantar wart of right foot B07.0 and Actinic keratosis L57.0 [facility] [facility] [address] 43544- 3745 Aug, Fibromyalgia M79.7 [facility] [address] 05165- 5187 Jul, Arthritis M19.90 ; Hypothyroidism, unspecified type E03.9 ; Reactive depression F32.9 and Venous insufficiency I87.2 [place] [address] 44324- 1814 Jul, Gastroesophageal reflux disease, esophagitis presence not specified K21.9 [facility] [facility] [address] 62101- 4144 Jul, Reflex sympathetic dystrophy G90.50 [place] [address] 49015- 1143 Jul, Anxiety F41.9 ; Adjustment disorder with anxiety F43.22 and Reactive depression F32.9 [place] [address] 88302- 6137 Jul, [place] [address] 53868- 7667 Jul, Right elbow pain M25.521 [facility] [address] 79571- 9076 Jun, Fibromyalgia M79.7 [facility] [address] 76847- 7947 Jun, Anxiety F41.9 ; Adjustment disorder with anxiety F43.22 and Reactive depression F32.9 [facility] [address] 66447- 6591 Jun, [facility] [address] 52775- 0042 Jun, Atypical chest pain R07.89 and Adjustment disorder with anxiety F43.22 [facility] [address] [id number] Jun, Chest pain, unspecified type R07.9 [facility] [address] 28213- 1284 Jun, Fibromyalgia M79.7 [facility] [address] 99846- 6961 May, Anxiety F41.9 [facility] [address] 29246- 3919 14 May, 2016 [facility] [address] 00091- 3555 May, Right elbow pain M25.521 [facility] [address] 23174- 0837 Apr, Reflex sympathetic dystrophy G90.50 and Encounter for immunization Z23 [facility] [address] 85131- 3240 07 Apr, 2016 [facility] [address] 51057- 5093 14 Mar, 2016 [facility] [address] [place] [address]- 6679 Feb, [facility] [address], [place] [address]- 3814 Feb, [facility] [address], [place] [address]- 1690 Jan, [facility] [id number] [place] [address] 75957- 7380 Jan, Right elbow pain M25.521 and Right wrist pain M25.531 [facility] [address] [place] [address] 58598- 4219 Jan, [facility] [id number] [place] [address] 98579- 4093 Dec, Seborrheic keratoses L82.1 [facility] [id number] [place] [address] 22736- 0123 Dec, [facility] [id number] [place] [address] 07149- 1364 Dec, [facility] [id number] [place] [address] 00341- 4237 Dec, [facility] [id number] [place] [address] 51504- 0057 Dec, Fibromyalgia M79.7 and Hypothyroidism, unspecified type E03.9 [facility] [address], [place] [address]- 1878 Dec, Seborrheic keratoses L82.1 [facility] [address], [place] [address]- 3703 Dec, [facility] [address] [place] [address] 12953- 6956 Dec, [facility] [address], [place] [address]- 7590 Nov, Sebaceous cyst L72.3 [facility] [address] [facility] [id number] [place] [address]- 5402 October, Breast cancer screening Z12.39 [facility] [facility] [id number], [place] [address]- 0394 October, Fibromyalgia M79.7 ; Hypothyroidism, unspecified type E03.9 and Reflex sympathetic dystrophy G90.50 [place] [address] [facility] [id number] [address]- 4301 October, Reflex sympathetic dystrophy G90.50 ; Fibromyalgia M79.7 and Hypothyroidism, unspecified type E03.9 IMMUNIZATIONS No Known Immunizations SOCIAL HISTORY Never Assessed REASON FOR VISIT right knee et right ankle pain that started this am. denies any injury. does report her ankle was swollen on tuesday. zuly PLAN OF CARE Activity Details Follow Up w/ PCP Reason:if increased or worsening ankle and knee pain VITAL SIGNS Height 62 in 2017-12-06 Weight 218.0 lbs 2017-12-06 Temperature 98.6 degrees Fahrenheit 2017-12-06 Heart Rate 84 bpm 2017-12-06 Respiratory Rate 20 2017-12-06 BMI 39.87 kg/m2 2017-12-06 Blood pressure systolic 130 mmHg 2017-12-06 Blood pressure diastolic 76 mmHg 2017-12-06 MEDICATIONS Medication Instructions Dosage Frequency Start Date End Date Duration Status Topiramate 200MG Orally twice a day 1 tablet 12h Active Rexulti 1 MG Orally Once a day 0.5 tablet every day for one week then take full tablet daily 24h Nov, 30 day(s) Active Hydrocodone-Acetaminophen 7.5-325 MG Orally 3 times a day 1 tablet 8h October, 28 days Active Pantoprazole Sodium 40MG Orally Once a day 1 tablet 24h Active Orphenadrine Citrate ER 100 mg Orally twice a day 1 tablet 12h Active HydrOXYzine HCl 10 MG Orally three times a day as needed for anxiety and sleep 1 tablet May, Active Trintellix 5 MG Orally Once a day 1 tablet 24h 30 Jun, 2017 30 days Active Levothyroxine Sodium 75MCG TAKE ONE TABLET BY MOUTH ONCE DAILY Active Excedrin Migraine 250-250-65 MG Orally every 6 hrs 2 tablets as needed 6h Active Fiorinal 50-325-40 MG Orally every 4 hrs 1 capsule as needed 4h 11 Aug, 2017 Active RESULTS Name Result Date Reference Range UA LONG DIP (IN HOUSE) 2017-12-06 Lot # [id number] Exp date 2018 04 30 Clarity clear Color yellow Odor none GLU negative GIBRAN negatvie KET negative SG 1.015 BLO negative pH 7.0 Protein negative URO 0.2 NIT negative CHADD negative Lot # [id number] Exp date may 2018 Ultrasound : Venous Doppler (DVT EVAL) 2017-12-06 Xray : Ankle, Right 2017-12-06 PROCEDURES Procedure Date Ordered Result Body Site [facility] VISIT ESTABLISHED PATIENT December 06, 2017 URINALYSIS, AUTO, W/O SCOPE December 06, 2017 INSTRUCTIONS MEDICATIONS ADMINISTERED No Known Medications [...]
--- OUTSIDE RECORDS SUMMARY | 2018-03-07 17:50 | XMS REPORT ---
Author Author JOE BAI Organization [facility] Address [address] [place] [address] Care Team Providers Care Patient Scheduling Coordinator Name Role Phone JOE BAI Unavailable PROBLEMS Type Condition ICD9-CM Code ZVJ25-MN Code Onset Dates Condition Status SNOMED Code Problem Reactive depression F32.9 Active 28341609 Problem Plantar wart of right foot B07.0 Active 86648697 Problem Gastroesophageal reflux disease, esophagitis presence not specified K21.9 Active 035949738 Problem Internal derangement of right knee M23.91 Active 735390496608320 Problem Abnormal laboratory test R89.9 Active 746777797 Problem Mixed hyperlipidemia E78.2 Active 961350592 Problem Rosacea L71.9 Active 463876258 Problem Mild episode of recurrent major depressive disorder F33.0 Active 657385064 Problem Generalized anxiety disorder F41.1 Active 05610359 Problem Hypothyroidism, unspecified type E03.9 Active 24411914 Problem Right elbow pain M25.521 Active 67728760 Problem Right wrist pain M25.531 Active 71099797 Problem Reflex sympathetic dystrophy G90.50 Active 90482635 Problem Venous insufficiency I87.2 Active 35202339 Problem Fibromyalgia M79.7 Active 342002864 Problem Arthritis M19.90 Active 8183699 ALLERGIES No Information ENCOUNTERS Encounter Location Date Diagnosis [facility] [address] [address] Feb, [facility] [id number] [place] [address] 36895- 2543 Feb, [facility] [id number] [place] [address] 38280- 8879 Feb, [facility] [address] [address] Feb, [facility] [address], [place] [address] Jan, [facility] [id number] [place] [address] 71182- 4464 Jan, Medicare annual wellness visit, initial Z00.00 [facility] [id number] [place] [address] 86752- 7234 Jan, [facility] [id number] [place] [address] 87538- 2017 Jan, Mild episode of recurrent major depressive disorder F33.0 and Generalized anxiety disorder F41.1 [facility] [id number] [place] [address] 66856- 3452 Jan, Fibromyalgia M79.7 [facility] [id number] [place] [address] 21460- 4347 Jan, Bronchospasm J98.01 [facility] [id number] [place] [address] 54464- 5789 Jan, [facility] [id number] [place] [address] 41537- 2921 Jan, Generalized anxiety disorder F41.1 and Mild episode of recurrent major depressive disorder F33.0 [place] [id number] [place] [address] 28397- 2568 Jan, Bronchitis J40 [facility] [id number] [place] [address] 17083- 2639 Dec, Mild episode of recurrent major depressive disorder F33.0 [facility] [address], [place] [address] 50[address] Dec, Generalized anxiety disorder F41.1 and Mild episode of recurrent major depressive disorder F33.0 [facility] [address], [place] [address] 2356 Dec, Fibromyalgia M79.7 ; Arthritis M19.90 and Generalized anxiety disorder F41.1 [facility] [id number] [address] 7174 Dec, Mild episode of recurrent major depressive disorder F33.0 and Generalized anxiety disorder F41.1 [facility] [id number] [place] [address] 55413- 1181 Dec, Fibromyalgia M79.7 [facility] [id number] [place] [address] 58532- 9650 Dec, Bronchitis J40 and Internal derangement of right knee M23.91 [facility] [id number] [place] [address] 22735 -9995 Dec, [address] [facility] [id number] [place] [address] 39352- 1731 Dec, Generalized anxiety disorder F41.1 and Mild episode of recurrent major depressive disorder F33.0 [facility] [id number] [place] [address] 46491- 4380 Dec, [facility] [id number] [place] [address] 53480 -9497 Dec, [facility] [id number] [place] [address] 37211- 0274 Dec, Mild episode of recurrent major depressive disorder F33.0 and Generalized anxiety disorder F41.1 [facility] [id number] [place] [address] 31045- 3503 Nov, [facility] [id number] [place] [address] 62647- 5989 Nov, [facility] [id number] [place] [address] 36804- 9099 Nov, [facility] [id number] [place] [address] 90456- 4262 Nov, Internal derangement of right knee M23.91 [facility] [id number] [place] [address] 27076- 6553 Nov, Generalized anxiety disorder F41.1 and Mild episode of recurrent major depressive disorder F33.0 [facility] [id number] [address] 4[address] 22 Nov, 2017 Internal derangement of right knee M23.91 [facility] [address], [place] [address] 19 Nov, 2017 Acute right ankle pain M25.571 ; Acute pain of right knee M25.561 ; Acute left-sided low back pain without sciatica M54.5 and Right leg pain M79.604 [facility] [address], [place] [address] 15 Nov, 2017 [facility] [id number] [place] [address] 55896- 5762 Nov, Fibromyalgia M79.7 [facility] [id number] [place] [address] 64196- 9381 Nov, Generalized anxiety disorder F41.1 and Mild episode of recurrent major depressive disorder F33.0 [facility] [address], [place] [address] Nov, [facility] [id number] [place] [address] 46494- 0053 October, Generalized anxiety disorder F41.1 and Mild episode of recurrent major depressive disorder F33.0 [facility] [address], [place] [address] 3661 October, Fibromyalgia M79.7 [facility] [address], [place] [address]60 October, [facility] [id number] [place] [address] 78921- 7448 October, Generalized anxiety disorder F41.1 and Mild episode of recurrent major depressive disorder F33.0 [facility] [address], [place] [address] 94[address] October, [facility] [id number] [place] [address] 45041- 5661 24 Sep, 2017 Gastroesophageal reflux disease, esophagitis presence not specified K21.9 and Abnormal laboratory test R89.9 [facility] [id number] [place] [address] 14460- 6652 18 Sep, [address] [facility] [address] 19307- 9533 17 Sep, 2017 Generalized anxiety disorder F41.1 and Mild episode of recurrent major depressive disorder F33.0 [facility] [id number] [place] [address] 44867- 4131 Sep, Epigastric pain R10.13 [facility] [address] 62837- 4346 10 Sep, 2017 Mild episode of recurrent major depressive disorder F33.0 and Generalized anxiety disorder F41.1 [place] [address] 12781- 8616 Sep, Abnormal laboratory test R89.9 [facility] [id number] [place] [address] 35633- 4652 Sep, Generalized anxiety disorder F41.1 and Mild episode of recurrent major depressive disorder F33.0 [facility] [id number] [place] [address] 94000- 2904 29 Aug, 2017 Epigastric pain R10.13 and Encounter for therapeutic drug level monitoring Z51.81 [facility] [id number] [place] [address] 41700 -0684 Aug, Epigastric pain R10.13 and Gastro-esophageal reflux disease without esophagitis K21.9 [facility] [id number] [place] [address] 11533- 8355 22 Aug, 2017 [facility] [id number] [place] [address] 04863- 8411 Aug, Epigastric pain R10.13 [facility] [id number] [place] [address] 29270- 7429 Aug, Fibromyalgia M79.7 [facility] [id number] [place] [address] 36376- 9273 Aug, [facility] [id number] [place] [address] 39975- 8677 Aug, Generalized anxiety disorder F41.1 and Mild episode of recurrent major depressive disorder F33.0 [place] [id number] [place] [address] 65208- 6150 Aug, Epigastric pain R10.13 ; Reflex sympathetic dystrophy G90.50 and Arthritis M19.90 [place] [id number] [place] [address] 53569- 2564 Jul, Generalized anxiety disorder F41.1 and Mild episode of recurrent major depressive disorder F33.0 [place] [id number] [place] [address] 57041- 8532 Jul, BMI 40.0-44.9, adult Z68.41 ; Mild episode of recurrent major depressive disorder F33.0 and Generalized anxiety disorder F41.1 [place] [id number] [place] [address] 10029- 2594 Jul, Fibromyalgia M79.7 [facility] [id number] [place] [address] 39316- 5043 Jun, Mild episode of recurrent major depressive disorder F33.0 and Generalized anxiety disorder F41.1 [place] [id number] [place] [address] 78193- 3790 Jun, Fibromyalgia M79.7 [facility] [id number] [place] [address] 61373- 0256 Jun, Generalized anxiety disorder F41.1 and Mild episode of recurrent major depressive disorder F33.0 [place] [id number] [place] [address] 07510- 0634 Jun, Generalized anxiety disorder F41.1 and Mild episode of recurrent major depressive disorder F33.0 [facility] [address], [place] [address]- 3554 Jun, Generalized anxiety disorder F41.1 and Mild episode of recurrent major depressive disorder F33.0 [facility] [address], [place] [address]- 1565 Jun, [facility] [id number] [place] [address] 96804- 8745 Jun, Generalized anxiety disorder F41.1 and Mild episode of recurrent major depressive disorder F33.0 [facility] [address] [place] [address] 90004- 6115 May, Fibromyalgia M79.7 [facility] [id number] [place] [address] 00023- 4100 May, Generalized anxiety disorder F41.1 and Mild episode of recurrent major depressive disorder F33.0 [facility] [address] [place] [address] 62525- 7382 May, Mixed hyperlipidemia E78.2 ; Arthritis M19.90 ; Reactive depression F32.9 and Hypothyroidism, unspecified type E03.9 [facility] [address] [place] [address] 80869- 1436 May, Arthritis M19.90 ; Reactive depression F32.9 ; Mixed hyperlipidemia E78.2 and Hypothyroidism, unspecified type E03.9 [facility] [address], [place] [address]- 7021 Apr, Fibromyalgia M79.7 [facility] [address], [place] [address]- 2737 Apr, [facility] [address] [place] [address] 93544- 8723 Apr, Fibromyalgia M79.7 [facility] [address] [place] [address] 47914- 9638 Mar, Fibromyalgia M79.7 [facility] [id number] [place] [address] 46190- 3734 Mar, [facility] [id number] [place] [address] 50750- 8485 Mar, Fibromyalgia M79.7 [facility] [id number] [place] [address] 44547- 2545 Mar, [facility] [id number] [place] [address] 35676 2545 Feb, Reflex sympathetic dystrophy G90.50 ; Right arm pain M79.[address] [facility] [id number] [place] [address] 88457- 1863 Feb, [facility] [id number] [place] [address] 60903- 9959 Feb, Anxiety F41.9 [facility] [address] 93015- 4906 Feb, Fibromyalgia M79.7 [facility] [id number] [place] [address] 99800- 2544 Feb, [facility] [id number] [place] [address] 38895- 4023 Feb, [facility] [id number] [place] [address] 26445- 0896 Jan, Temporal headache R51 [facility] [id number] [place] [address] 12275- 0375 Jan, Fibromyalgia M79.7 [facility] [id number] [place] [address] 81783- 0625 Dec, Fibromyalgia M79.7 [facility] [id number] [place] [address] 83710- 0541 Nov, Peroneal tendonitis, unspecified laterality M76.70 and Plantar fasciitis, bilateral M72.2 [facility] [id number] [place] [address] 77423- 2314 Nov, Fibromyalgia M79.7 [place] [id number] [place] [address] 38004- 6942 October, Fibromyalgia M79.7 [place] [id number] [place] [address] 07192- 0801 October, Plantar fasciitis, bilateral M72.2 and Peroneal tendonitis, unspecified laterality M76.70 [place] [address] 29668- 0976 October, Fibromyalgia M79.7 [place] [address] 16354- 8296 Sep, Anxiety F41.9 [place] [address] 20154- 0704 Aug, Anxiety F41.9 and Adjustment disorder with anxiety F43.22 [place] [address] 50825- 7725 Aug, Pain of left foot M79.672 [place] [address] 05480- 2177 Aug, Pain of left foot M79.672 and Pain in right foot M79.671 [place] [id number] [place] [address] 78715- 9160 Aug, Arthritis M19.90 ; Reactive depression F32.9 ; Fibromyalgia M79.7 ; Rosacea L71.9 ; Pain in right foot M79.671 and Pain of left foot M79.672 [facility] [id number] [place] [address] 74042- 9629 Aug, Anxiety F41.9 ; Adjustment disorder with anxiety F43.22 and Reactive depression F32.9 [place] [id number] [place] [address] 09063- 0513 Aug, Right elbow pain M25.521 [place] [address] 62540- 6260 Aug, Plantar wart of right foot B07.0 and Actinic keratosis L57.0 [place] [address] 38486- 8547 Aug, Fibromyalgia M79.7 [place] [address] 58352- 9423 Jul, Arthritis M19.90 ; Hypothyroidism, unspecified type E03.9 ; Reactive depression F32.9 and Venous insufficiency I87.2 [place] [address] 81088- 3190 Jul, Gastroesophageal reflux disease, esophagitis presence not specified K21.9 [place] [address] 59966- 1483 Jul, Reflex sympathetic dystrophy G90.50 [place] [address] 31540- 9772 Jul, Anxiety F41.9 ; Adjustment disorder with anxiety F43.22 and Reactive depression F32.9 [place] [address] 46080- 1554 Jul, [place] [address] 90221- 6103 Jul, Right elbow pain M25.521 [place] [address] 07198- 0399 Jun, Fibromyalgia M79.7 [place] [address] 64055- 4734 Jun, Anxiety F41.9 ; Adjustment disorder with anxiety F43.22 and Reactive depression F32.9 [place] [address] 34971- 5608 Jun, [place] [address] 01136- 3488 Jun, Atypical chest pain R07.89 and Adjustment disorder with anxiety F43.22 [facility] [address] [id number] Jun, Chest pain, unspecified type R07.9 [facility] [id number] [place] [address] 49928- 7714 Jun, Fibromyalgia M79.7 [facility] [address] 53738- 7418 May, Anxiety F41.9 [facility] [address] 74034- 1579 May, [facility] [address] 62989- 0121 May, Right elbow pain M25.521 [facility] [address] 45788- 7474 Apr, Reflex sympathetic dystrophy G90.50 and Encounter for immunization Z23 [facility] [address] 32882- 5019 Apr, [facility] [address] 72604- 2082 Mar, [facility] [id number] [place] [address] 97494- 1502 Feb, [facility] [address] 89395- 5922 Feb, [facility] [id number] [place] [address] 00082- 1802 Jan, [facility] [address] 57624- 4427 Jan, Right elbow pain M25.521 and Right wrist pain M25.531 [facility] [address] 18268- 4378 Jan, [facility] [address] [address]- 4319 Dec, Seborrheic keratoses L82.1 [facility] [id number] [place] [address] 38878- 7621 Dec, [facility] [id number] [place] [address] 09648- 3694 Dec, [place] [id number] [place] [address] 31410- 1117 Dec, [facility] [id number] [place] [address] 71636- 6741 Dec, Fibromyalgia M79.7 and Hypothyroidism, unspecified type E03.9 [place] [id number] [place] [address] 20256- 5115 Dec, Seborrheic keratoses L82.1 [place] [id number] [place] [address] 30335- 9906 Dec, [place] [id number] [place] [address] 58510- 8975 Dec, [place] [id number] [place] [address] 62218- 1327 Nov, Sebaceous cyst L72.3 [place] [id number] [place] [address] 88689- 8592 October, Breast cancer screening Z12.39 [place] [id number] [place] [address] 92829- 7753 October, Fibromyalgia M79.7 ; Hypothyroidism, unspecified type E03.9 and Reflex sympathetic dystrophy G90.50 [place] [address] [place] [address] 31841- 9251 October, Reflex sympathetic dystrophy G90.50 ; Fibromyalgia M79.7 and Hypothyroidism, unspecified type E03.9 IMMUNIZATIONS No Known Immunizations SOCIAL HISTORY Never Assessed REASON FOR VISIT refill request PLAN OF CARE VITAL SIGNS MEDICATIONS Medication Instructions Dosage Frequency Start Date End Date Duration Status Topiramate 200MG Orally twice a day 1 tablet 12h 30 Active RESULTS No Results PROCEDURES No Known [...]
--- OUTSIDE RECORDS SUMMARY | 2018-03-07 17:50 | XMS REPORT ---
Author Author BAMBI POLLY Organization [facility] Address [address] [place] [address] Care Team Providers Care Emotional Support Teacher Name Role Phone MANAVKAYA VARMAA Unavailable PROBLEMS Type Condition ICD9-CM Code VVC19-ER Code Onset Dates Condition Status SNOMED Code Problem Reactive depression F32.9 Active 41746078 Problem Plantar wart of right foot B07.0 Active 30747683 Problem Gastroesophageal reflux disease, esophagitis presence not specified K21.9 Active 839975884 Problem Internal derangement of right knee M23.91 Active 887291530276206 Problem Abnormal laboratory test R89.9 Active 097087600 Problem Mixed hyperlipidemia E78.2 Active 227717241 Problem Rosacea L71.9 Active 164721491 Problem Mild episode of recurrent major depressive disorder F33.0 Active 787325311 Problem Generalized anxiety disorder F41.1 Active 58141724 Problem Hypothyroidism, unspecified type E03.9 Active 82773462 Problem Right elbow pain M25.521 Active 20811990 Problem Right wrist pain M25.531 Active 65245899 Problem Reflex sympathetic dystrophy G90.50 Active 47906108 Problem Venous insufficiency I87.2 Active 47224996 Problem Fibromyalgia M79.7 Active 682093831 Problem Arthritis M19.90 Active 3644586 ALLERGIES No Information ENCOUNTERS Encounter Location Date Diagnosis [facility] [id number] [address] Feb, [facility] [id number] [address] Feb, [facility] [address], [place] [address] 3956 Feb, [facility] [id number], [place] [address] 5685 Feb, [facility] [address], [place] [address] 9[address] Jan, [facility] [id number] [place] [address] 78216- 8638 Jan, Medicare annual wellness visit, initial Z00.00 [facility] [id number] [place] [address] 32134- 0760 Jan, [facility] [id number] [place] [address] 30774- 2637 Jan, Mild episode of recurrent major depressive disorder F33.0 and Generalized anxiety disorder F41.1 [facility] [id number] [place] [address] 68903- 5242 Jan, Fibromyalgia M79.7 [facility] [id number] [place] [address] 94769- 4799 Jan, Bronchospasm J98.01 [facility] [id number] [place] [address] 54346- 7749 Jan, [facility] [id number] [place] [address] 24317- 5915 Jan, Generalized anxiety disorder F41.1 and Mild episode of recurrent major depressive disorder F33.0 [facility] [id number] [place] [address] 72601- 5537 Jan, Bronchitis J40 [facility] [id number] [place] [address] 99395- 9162 Dec, Mild episode of recurrent major depressive disorder F33.0 [facility] [id number] [place] [address] 80997- 4241 Dec, Generalized anxiety disorder F41.1 and Mild episode of recurrent major depressive disorder F33.0 [facility] [address], [place] [address] 6899 Dec, Fibromyalgia M79.7 ; Arthritis M19.90 and Generalized anxiety disorder F41.1 [facility] [address] [place] [address] 20190- 2996 Dec, Mild episode of recurrent major depressive disorder F33.0 and Generalized anxiety disorder F41.1 [facility] [id number] [place] [address] 54073- 3575 Dec, Fibromyalgia M79.7 [facility] [id number] [place] [address] 51728- 7857 Dec, Bronchitis J40 and Internal derangement of right knee M23.91 [facility] [id number] [place] [address] 68139 -3170 Dec, Cough R05 [facility] [id number] [place] [address] 36055- 0825 Dec, Generalized anxiety disorder F41.1 and Mild episode of recurrent major depressive disorder F33.0 [facility] [id number] [place] [address] 85639- 0075 Dec, [facility] [id number] [place] [address] 56862 -0815 Dec, [facility] [id number] [place] [address] 99964- 4932 Dec, Mild episode of recurrent major depressive disorder F33.0 and Generalized anxiety disorder F41.1 [facility] [id number] [place] [address] 22948- 1982 Nov, [facility] [id number] [place] [address] 47419- 9799 Nov, [facility] [id number] [place] [address] 33946- 2541 Nov, [facility] [id number] [place] [address] 43234- 8424 Nov, Internal derangement of right knee M23.91 [facility] [id number] [place] [address] 55191- 0160 Nov, Generalized anxiety disorder F41.1 and Mild episode of recurrent major depressive disorder F33.0 [facility] [id number], [place] [address]- 4966 22 Nov, 2017 Internal derangement of right knee M23.91 [facility] [id number], [place] [address] 19 Nov, 2017 Acute right ankle pain M25.571 ; Acute pain of right knee M25.561 ; Acute left-sided low back pain without sciatica M54.5 and Right leg pain M79.604 [facility] [id number], [place] [address] 7878 15 Nov, 2017 [facility] [id number] [place] [address] 20859- 7779 Nov, Fibromyalgia M79.7 [facility] [id number] [place] [address] 55132- 8473 Nov, Generalized anxiety disorder F41.1 and Mild episode of recurrent major depressive disorder F33.0 [facility] [address], [place] [address]- 0428 Nov, [facility] [id number] [place] [address] 12128- 8672 October, Generalized anxiety disorder F41.1 and Mild episode of recurrent major depressive disorder F33.0 [facility] [address], [place] [address]- 9093 October, Fibromyalgia M79.7 [facility] [address], [place] [address]- 8531 October, [facility] [id number] [place] [address] 93674- 0633 October, Generalized anxiety disorder F41.1 and Mild episode of recurrent major depressive disorder F33.0 [facility] [address], [place] [address]- 0830 October, [facility] [id number] [place] [address] 57155- 4149 24 Sep, 2017 Gastroesophageal reflux disease, esophagitis presence not specified K21.9 and Abnormal laboratory test R89.9 [facility] [id number] [place] [address] 38192- 7829 18 Sep, 2017 Fibromyalgia M79.7 [facility] [address] 79400- 5775 Sep, Generalized anxiety disorder F41.1 and Mild episode of recurrent major depressive disorder F33.0 [facility] [id number] [place] [address] 81204- 3822 Sep, Epigastric pain R10.13 [address] 97689- 0783 10 Sep, 2017 Mild episode of recurrent major depressive disorder F33.0 and Generalized anxiety disorder F41.1 [place] [address] 53127- 2542 Sep, Abnormal laboratory test R89.9 [facility] [id number] [place] [address] 41706- 7161 Sep, Generalized anxiety disorder F41.1 and Mild episode of recurrent major depressive disorder F33.0 [facility] [id number] [place] [address] 81248- 8411 29 Aug, 2017 Epigastric pain R10.13 and Encounter for therapeutic drug level monitoring Z51.81 [facility] [id number] [place] [address] 61205 -7780 Aug, Epigastric pain R10.13 and Gastro-esophageal reflux disease without esophagitis K21.9 [facility] [id number] [place] [address] 61033- 3036 Aug, [facility] [id number] [place] [address] 10974- 2783 Aug, Epigastric pain R10.13 [facility] [address] [place] [address]- 2889 Aug, Fibromyalgia M79.7 [address] [id number] [place] [address] 42704- 0793 Aug, [place] [place] [address] 25086- 2938 Aug, Generalized anxiety disorder F41.1 and Mild episode of recurrent major depressive disorder F33.0 [place] [address] 22899- 2345 Aug, Epigastric pain R10.13 ; Reflex sympathetic dystrophy G90.50 and Arthritis M19.90 [place] [address] 98630- 1176 Jul, Generalized anxiety disorder F41.1 and Mild episode of recurrent major depressive disorder F33.0 [address] [address] 53940- 4843 Jul, BMI 40.0-44.9, adult Z68.41 ; Mild episode of recurrent major depressive disorder F33.0 and Generalized anxiety disorder F41.1 [place] [id number] [place] [address] 44211- 0387 Jul, Fibromyalgia M79.7 [place] [id number] [place] [address] 27336- 0061 Jun, Mild episode of recurrent major depressive disorder F33.0 and Generalized anxiety disorder F41.1 [place] [id number] [place] [address] 31854- 3906 Jun, Fibromyalgia M79.7 [facility] [id number] [place] [address] 05748- 5165 Jun, Generalized anxiety disorder F41.1 and Mild episode of recurrent major depressive disorder F33.0 [place] [id number] [place] [address] 30040- 1916 Jun, Generalized anxiety disorder F41.1 and Mild episode of recurrent major depressive disorder F33.0 [facility] [address], [place] [address]- 6331 Jun, Generalized anxiety disorder F41.1 and Mild episode of recurrent major depressive disorder F33.0 [facility] [address], [place] [address]- 0206 Jun, [facility] [id number] [place] [address] 31104- 1331 Jun, Generalized anxiety disorder F41.1 and Mild episode of recurrent major depressive disorder F33.0 [facility] [address] [place] [address] 19492- 7008 May, Fibromyalgia M79.7 [facility] [address] [place] [address] 71977- 6714 May, Generalized anxiety disorder F41.1 and Mild episode of recurrent major depressive disorder F33.0 [facility] [address] [place] [address] 05155- 4181 May, Mixed hyperlipidemia E78.2 ; Arthritis M19.90 ; Reactive depression F32.9 and Hypothyroidism, unspecified type E03.9 [facility] [address] [place] [address] 82578- 2387 May, Arthritis M19.90 ; Reactive depression F32.9 ; Mixed hyperlipidemia E78.2 and Hypothyroidism, unspecified type E03.9 [facility] [address], [place] [address]- 1022 Apr, Fibromyalgia M79.7 [facility] [address], [place] [address]- 6484 Apr, [facility] [id number] [place] [address] 83835- 1078 Apr, Fibromyalgia M79.7 [facility] [address], [place] [address]- 9459 Mar, Fibromyalgia M79.7 [facility] [id number] [place] [address] 34688- 3928 Mar, [facility] [address] 35005- 6527 Mar, Fibromyalgia M79.7 [facility] [address] 27397- 4210 Mar, [facility] [address] 56254- 4252 Feb, Reflex sympathetic dystrophy G90.50 ; Right arm pain M79.601 and Fibromyalgia M79.7 [facility] [address] 10946- 2164 Feb, [facility] [address] 01682- 0568 Feb, Anxiety F41.9 [facility] [address] 68371- 7834 Feb, Fibromyalgia M79.7 [facility] [address] 38877- 3512 Feb, [facility] [address] 44756- 8601 Feb, [facility] [id number] [place] [address] 39930- 1803 Jan, Temporal headache R51 [facility] [address] 03807- 9605 Jan, Fibromyalgia M79.7 [facility] [id number] [place] [address] 32443- 2063 Dec, Fibromyalgia M79.7 [facility] [id number] [place] [address] 10818- 0995 Nov, Peroneal tendonitis, unspecified laterality M76.70 and Plantar fasciitis, bilateral M72.2 [facility] [id number] [place] [address] 47708- 4335 Nov, Fibromyalgia M79.7 [place] [address] 05795- 6592 October, Fibromyalgia M79.7 [place] [address] 30610- 3471 October, Plantar fasciitis, bilateral M72.2 and Peroneal tendonitis, unspecified laterality M76.70 [place] [address] 45320- 1328 October, Fibromyalgia M79.7 [place] [address] 43862- 0680 Sep, Anxiety F41.9 [place] [address] 37594- 5288 Aug, Anxiety F41.9 and Adjustment disorder with anxiety F43.22 [place] [address] 32147- 5982 Aug, Pain of left foot M79.672 [place] [address] 04758- 0503 Aug, Pain of left foot M79.672 and Pain in right foot M79.671 [place] [address] 14637- 6821 Aug, Arthritis M19.90 ; Reactive depression F32.9 ; Fibromyalgia M79.7 ; Rosacea L71.9 ; Pain in right foot M79.671 and Pain of left foot M79.672 [place] [id number] [place] [address] 84592- 7267 Aug, Anxiety F41.9 ; Adjustment disorder with anxiety F43.22 and Reactive depression F32.9 [place] [address] 38458- 4605 Aug, Right elbow pain M25.521 [place] [address] 03669- 6211 Aug, Plantar wart of right foot B07.0 and Actinic keratosis L57.0 [place] [address] 45867- 9143 Aug, Fibromyalgia M79.7 [place] [address] 53135- 5228 Jul, Arthritis M19.90 ; Hypothyroidism, unspecified type E03.9 ; Reactive depression F32.9 and Venous insufficiency I87.2 [place] [address] 47291- 9332 Jul, Gastroesophageal reflux disease, esophagitis presence not specified K21.9 [place] [address] 46558- 6071 Jul, Reflex sympathetic dystrophy G90.50 [place] [address] 42120- 1542 Jul, Anxiety F41.9 ; Adjustment disorder with anxiety F43.22 and Reactive depression F32.9 [place] [address] 89802- 5406 Jul, [place] [address] 11030- 1161 Jul, Right elbow pain M25.521 [place] [address] 51220- 4990 Jun, Fibromyalgia M79.7 [place] [address] 75928- 7414 Jun, Anxiety F41.9 ; Adjustment disorder with anxiety F43.22 and Reactive depression F32.9 [place] [address] 17352- 9336 Jun, [place] [address] 52598- 1232 Jun, Atypical chest pain R07.89 and Adjustment disorder with anxiety F43.22 [facility] [address] [id number] Jun, Chest pain, unspecified type R07.9 [facility] [id number] [place] [address] 13079- 5274 Jun, Fibromyalgia M79.7 [facility] [address] 11935- 9159 May, Anxiety F41.9 [facility] [address] 09186- 3391 May, [facility] [address] 59537- 0500 May, Right elbow pain M25.521 [facility] [address] 77915- 6913 Apr, Reflex sympathetic dystrophy G90.50 and Encounter for immunization Z23 [facility] [id number] [place] [address] 83912- 6025 Apr, [facility] [address] 51005- 2403 Mar, [facility] [id number] [place] [address] 48895- 9598 Feb, [facility] [address] 30502- 2574 Feb, [facility] [id number] [place] [address] 52614- 0495 Jan, [facility] [address] 37965- 4200 Jan, Right elbow pain M25.521 and Right wrist pain M25.531 [facility] [address] 43940- 0048 Jan, [facility] [address], [place] [address]- 5702 Dec, Seborrheic keratoses L82.1 [place] [id number] [place] [address] 16249- 4976 Dec, [facility] [id number] [place] [address] 73540- 5337 Dec, [place] [id number] [place] [address] 40585- 0062 Dec, [facility] [id number] [place] [address] 28088- 7517 Dec, Fibromyalgia M79.7 and Hypothyroidism, unspecified type E03.9 [place] [id number] [place] [address] 06208- 2076 Dec, Seborrheic keratoses L82.1 [place] [id number] [place] [address] 77223- 6233 Dec, [place] [id number] [place] [address] 86085- 8631 Dec, [place] [id number] [place] [address] 92196- 6080 Nov, Sebaceous cyst L72.3 [place] [id number] [place] [address] 72130- 5747 October, Breast cancer screening Z12.39 [place] [id number] [place] [address] 87499- 5563 October, Fibromyalgia M79.7 ; Hypothyroidism, unspecified type E03.9 and Reflex sympathetic dystrophy G90.50 [place] [id number] [place] [address] 60092- 6156 October, Reflex sympathetic dystrophy G90.50 ; Fibromyalgia M79.7 and Hypothyroidism, unspecified type E03.9 IMMUNIZATIONS No Known Immunizations SOCIAL HISTORY Never Assessed REASON FOR VISIT Requests return call PLAN OF CARE VITAL SIGNS MEDICATIONS Medication Instructions Dosage Frequency Start Date End Date Duration Status Rexulti 1 MG Orally Once a day 0.5 tablet every day for one week then take full tablet daily 24h Nov, 30 day(s) Active RESULTS No Results PROCEDURES [...]
--- OUTSIDE RECORDS SUMMARY | 2018-03-07 17:51 | XMS REPORT ---
Author Author JOE BAI Organization [facility] Address [address] [place] [address] Care Team Providers Care Entrepreneur Name Role Phone JOE BAI Unavailable PROBLEMS Type Condition ICD9-CM Code FAS13-WX Code Onset Dates Condition Status SNOMED Code Problem Reactive depression F32.9 Active 87097317 Problem Plantar wart of right foot B07.0 Active 56307361 Problem Gastroesophageal reflux disease, esophagitis presence not specified K21.9 Active 484777572 Problem Internal derangement of right knee M23.91 Active 204034005774870 Problem Abnormal laboratory test R89.9 Active 355463279 Problem Mixed hyperlipidemia E78.2 Active 504990675 Problem Rosacea L71.9 Active 299582814 Problem Mild episode of recurrent major depressive disorder F33.0 Active 761436509 Problem Generalized anxiety disorder F41.1 Active 24187033 Problem Hypothyroidism, unspecified type E03.9 Active 11800374 Problem Right elbow pain M25.521 Active 94529707 Problem Right wrist pain M25.531 Active 64715682 Problem Reflex sympathetic dystrophy G90.50 Active 40072490 Problem Venous insufficiency I87.2 Active 29247254 Problem Fibromyalgia M79.7 Active 165479816 Problem Arthritis M19.90 Active 7531846 ALLERGIES No Information ENCOUNTERS Encounter Location Date Diagnosis [facility] [address] [place] [address] Feb, [facility] [id number] [place] [address] 07848- 1053 Feb, [facility] [id number] [place] [address] 98209- 1811 Feb, [facility] [address], [place] [address] 8825 Jan, [facility] [place] [address], [place] [address] 8802 Jan, [facility] [address], [place] [address] 2525 Jan, [facility] [address], [place] [address] 6244 Jan, [facility] [id number] [place] [address] 69232- 5347 Jan, Bronchospasm J98.01 [facility] [id number] [place] [address] 77942- 4056 Jan, [facility] [id number] [place] [address] 11388- 0371 Jan, Generalized anxiety disorder F41.1 and Mild episode of recurrent major depressive disorder F33.0 [facility] [place] [address] [place] [address] 75823- 4162 Jan, Bronchitis J40 [facility] [place] [address], [place] [address] 1853 Dec, Mild episode of recurrent major depressive disorder F33.0 [facility] [address] [place] [address] 62024- 7194 Dec, Generalized anxiety disorder F41.1 and Mild episode of recurrent major depressive disorder F33.0 [facility] [place] [address], [place] [address] 1619 Dec, Fibromyalgia M79.7 ; Arthritis M19.90 and Generalized anxiety disorder F41.1 [facility] [place] [address], [place] [address]- 1153 Dec, Mild episode of recurrent major depressive disorder F33.0 and Generalized anxiety disorder F41.1 [facility] [place] [address], [place] [address]- 5103 Dec, Fibromyalgia M79.7 [facility] [id number] [place] [address] 89658- 0719 Dec, Bronchitis J40 and Internal derangement of right knee M23.91 [facility] [address], [place] [address] Dec, Cough R05 [facility] [place] [id number], [place] [address] 6896 Dec, Generalized anxiety disorder F41.1 and Mild episode of recurrent major depressive disorder F33.0 [facility] [address], [place] [address]- 9862 Dec, [facility] [id number] [place] [address] 45316 -8322 Dec, [facility] [id number] [place] [address] 24122- 8365 Dec, Mild episode of recurrent major depressive disorder F33.0 and Generalized anxiety disorder F41.1 [facility] [id number] [address]- 1330 30 Nov, 2017 [facility] [address], [place] [address]- 9501 Nov, [facility] [address] [place] [address] 90726- 2515 Nov, [facility] [address], [place] [address]- 3421 Nov, Internal derangement of right knee M23.91 [facility] [address], [place] [address]- 8869 Nov, Generalized anxiety disorder F41.1 and Mild episode of recurrent major depressive disorder F33.0 [facility] [id number], [place] [address]- 1721 Nov, Internal derangement of right knee M23.91 [facility] [id number], [place] [address] Nov, Acute right ankle pain M25.571 ; Acute pain of right knee M25.561 ; Acute left-sided low back pain without sciatica M54.5 and Right leg pain M79.604 [facility] [place] [id number] [place] [address] 30001- 3910 15 Nov, 2017 [facility] [id number] [place] [address] 28700- 8744 14 Nov, 2017 Fibromyalgia M79.7 [facility] [id number] [place] [address] 52150- 5407 13 Nov, 2017 Generalized anxiety disorder F41.1 and Mild episode of recurrent major depressive disorder F33.0 [facility] [id number] [place] [address] 95116- 9338 Nov, [facility] [id number] [place] [address] 93218- 8756 October, Generalized anxiety disorder F41.1 and Mild episode of recurrent major depressive disorder F33.0 [facility] [id number] [place] [address] 43070- 4856 October, Fibromyalgia M79.7 [facility] [id number] [place] [address] 68820- 4134 October, [facility] [id number] [place] [address] 21343- 8661 October, Generalized anxiety disorder F41.1 and Mild episode of recurrent major depressive disorder F33.0 [facility] [id number] [place] [address] 11632- 6099 October, [facility] [id number] [place] [address] 94309- 0418 Sep, Gastroesophageal reflux disease, esophagitis presence not specified K21.9 and Abnormal laboratory test R89.9 [facility] [id number] [place] [address] 13136- 0786 Sep, Fibromyalgia M79.7 [facility] [place] [id number] [place] [address] 28006- 8873 17 Sep, 2017 Generalized anxiety disorder F41.1 and Mild episode of recurrent major depressive disorder F33.0 [facility] [id number] [place] [address] 01240- 0026 13 Sep, 2017 Epigastric pain R10.13 [facility] [place] [id number] [place] [address] 46193- 7122 10 Sep, 2017 Mild episode of recurrent major depressive disorder F33.0 and Generalized anxiety disorder F41.1 [place] [id number] [place] [address] 79873- 6726 Sep, Abnormal laboratory test R89.9 [place] [id number] [place] [address] 63849- 3061 Sep, Generalized anxiety disorder F41.1 and Mild episode of recurrent major depressive disorder F33.0 [place] [id number] [place] [address] 26147- 7440 29 Aug, 2017 Epigastric pain R10.13 and Encounter for therapeutic drug level monitoring Z51.81 [facility] [id number] [place] [address] 73771 -5080 28 Aug, 2017 Epigastric pain R10.13 and Gastro-esophageal reflux disease without esophagitis K21.9 [facility] [id number] [place] [address] 55761- 4053 Aug, [facility] [id number] [place] [address] 84018- 3739 21 Aug, 2017 Epigastric pain R10.13 [facility] [id number] [place] [address] 85115- 0157 Aug, Fibromyalgia M79.7 [facility] [id number] [place] [address] 39212- 7983 14 Aug, 2017 [facility] [id number] [place] [address] 43776- 9409 14 Aug, 2017 Generalized anxiety disorder F41.1 and Mild episode of recurrent major depressive disorder F33.0 [facility] [id number] [place] [address] 78070- 7192 Aug, Epigastric pain R10.13 ; Reflex sympathetic dystrophy G90.50 and Arthritis M19.90 [facility] [id number] [place] [address] 55548- 3877 Jul, Generalized anxiety disorder F41.1 and Mild episode of recurrent major depressive disorder F33.0 [facility] [address] 56234- 4483 Jul, BMI 40.0-44.9, adult Z68.41 ; Mild episode of recurrent major depressive disorder F33.0 and Generalized anxiety disorder F41.1 [place] [id number] [place] [address] 54952- 0367 Jul, Fibromyalgia M79.7 [place] [address] 85739- 5111 Jun, Mild episode of recurrent major depressive disorder F33.0 and Generalized anxiety disorder F41.1 [place] [id number] [place] [address] 19763- 5378 Jun, Fibromyalgia M79.7 [facility] [id number] [place] [address] 00371- 3774 Jun, Generalized anxiety disorder F41.1 and Mild episode of recurrent major depressive disorder F33.0 [place] [id number] [place] [address] 53095- 3276 Jun, Generalized anxiety disorder F41.1 and Mild episode of recurrent major depressive disorder F33.0 [place] [id number] [place] [address] 85407- 2022 Jun, Generalized anxiety disorder F41.1 and Mild episode of recurrent major depressive disorder F33.0 [facility] [id number] [place] [address] 04409- 5567 Jun, [facility] [address] [place] [address]- 8119 Jun, Generalized anxiety disorder F41.1 and Mild episode of recurrent major depressive disorder F33.0 [facility] [id number] [place] [address] 27507- 2156 May, Fibromyalgia M79.7 [facility] [id number] [place] [address] 69294- 6062 May, Generalized anxiety disorder F41.1 and Mild episode of recurrent major depressive disorder F33.0 [facility] [id number] [place] [address] 90214- 8856 May, Mixed hyperlipidemia E78.2 ; Arthritis M19.90 ; Reactive depression F32.9 and Hypothyroidism, unspecified type E03.9 [facility] [id number] [place] [address] 10199- 4138 May, Arthritis M19.90 ; Reactive depression F32.9 ; Mixed hyperlipidemia E78.2 and Hypothyroidism, unspecified type E03.9 [facility] [id number] [place] [address] 21086- 7579 Apr, Fibromyalgia M79.7 [facility] [id number] [place] [address] 00015- 8597 Apr, [facility] [id number] [place] [address] 67465- 5827 Apr, Fibromyalgia M79.7 [facility] [id number] [place] [address] 91689- 9404 Mar, Fibromyalgia M79.7 [facility] [id number] [place] [address] 75996- 1948 Mar, [facility] [id number] [place] [address] 19455- 0692 Mar, Fibromyalgia M79.7 [facility] [id number] [place] [address] 13783- 3956 Mar, [facility] [id number] [place] [address] 55172- 3788 Feb, Reflex sympathetic dystrophy G90.50 ; Right arm pain M79.601 and Fibromyalgia M79.7 [facility] [id number] [place] [address] 30373- 3842 Feb, [facility] [address] 75076- 5866 Feb, Anxiety F41.9 [facility] [address] [address]54 2543 Feb, Fibromyalgia M79.7 [facility] [address] 82986- 4276 Feb, [facility] [id number] [place] [address] 59956- 7707 Feb, [facility] [address] 63554- 1964 Jan, Temporal headache R51 [facility] [address] 53789- 4718 Jan, Fibromyalgia M79.7 [facility] [id number] [place] [address] 73168- 6968 Dec, Fibromyalgia M79.7 [facility] [id number] [place] [address] 18978- 0194 Nov, Peroneal tendonitis, unspecified laterality M76.70 and Plantar fasciitis, bilateral M72.2 [facility] [id number] [place] [address] 60395- 2128 Nov, Fibromyalgia M79.7 [facility] [place] [id number] [place] [address] 91598- 0966 October, Fibromyalgia M79.7 [facility] [id number] [place] [address] 57331- 4612 October, Plantar fasciitis, bilateral M72.2 and Peroneal tendonitis, unspecified laterality M76.70 [place] [id number] [place] [address] 93046- 5320 October, Fibromyalgia M79.7 [place] [id number] [place] [address] 69698- 9561 Sep, Anxiety F41.9 [place] [address] 57365- 1602 Aug, Anxiety F41.9 and Adjustment disorder with anxiety F43.22 [place] [id number] [place] [address] 23748- 8619 Aug, Pain of left foot M79.672 [place] [address] 03389- 1940 Aug, Pain of left foot M79.672 and Pain in right foot M79.671 [place] [address] 02171- 4704 Aug, Arthritis M19.90 ; Reactive depression F32.9 ; Fibromyalgia M79.7 ; Rosacea L71.9 ; Pain in right foot M79.671 and Pain of left foot M79.672 [place] [id number] [place] [address] 99151- 3409 Aug, Anxiety F41.9 ; Adjustment disorder with anxiety F43.22 and Reactive depression F32.9 [place] [id number] [place] [address] 69948- 6522 Aug, Right elbow pain M25.521 [place] [id number] [place] [address] 76848- 9685 Aug, Plantar wart of right foot B07.0 and Actinic keratosis L57.0 [place] [id number] [place] [address] 58924- 2293 Aug, Fibromyalgia M79.7 [place] [address] 96036- 4452 Jul, Arthritis M19.90 ; Hypothyroidism, unspecified type E03.9 ; Reactive depression F32.9 and Venous insufficiency I87.2 [place] [id number] [place] [address] 85050- 5585 Jul, Gastroesophageal reflux disease, esophagitis presence not specified K21.9 [place] [address] 60137- 4636 Jul, Reflex sympathetic dystrophy G90.50 [place] [address] 93454- 6534 Jul, Anxiety F41.9 ; Adjustment disorder with anxiety F43.22 and Reactive depression F32.9 [place] [address] 48913- 4331 Jul, [place] [address] 08024- 4420 Jul, Right elbow pain M25.521 [place] [address] 26808- 1453 Jun, Fibromyalgia M79.7 [place] [address] 44799- 2115 Jun, Anxiety F41.9 ; Adjustment disorder with anxiety F43.22 and Reactive depression F32.9 [place] [id number] [place] [address] 28655- 0796 Jun, [place] [address] 08021- 8833 Jun, Atypical chest pain R07.89 and Adjustment disorder with anxiety F43.22 [place] [address] [id number] Jun, Chest pain, unspecified type R07.9 [place] [address] 49628- 3413 Jun, Fibromyalgia M79.7 [facility] [id number] [place] [address] 71535- 4145 May, Anxiety F41.9 [facility] [id number] [place] [address] 58274- 1186 May, [facility] [id number] [place] [address] 43214- 8836 May, Right elbow pain M25.521 [facility] [id number] [place] [address] 11773- 8533 Apr, Reflex sympathetic dystrophy G90.50 and Encounter for immunization Z23 [facility] [address] 78118- 3895 Apr, [facility] [id number] [place] [address] 92310- 9041 Mar, [facility] [place] [id number] [place] [address] 83247- 8721 Feb, [facility] [place] [id number] [place] [address] 49083- 2356 Feb, [facility] [place] [id number] [place] [address] 57457- 8802 Jan, [facility] [place] [id number] [place] [address] [id number]- 2868 Jan, Right elbow pain M25.521 and Right wrist pain M25.531 [facility] [place] [id number] [place] [address] [phone]- 4416 Jan, [facility] [place] [id number] [place] [address] 81761- [phone] Dec, Seborrheic keratoses L82.1 [facility] [place] [id number] [place] [address] 87076- 1690 Dec, [facility] [place] [id number] [place] [address] 10146- 0856 Dec, [place] [id number] [place] [address] 58033- 3496 Dec, [place] [id number] [place] [address] 84886- 1100 Dec, Fibromyalgia M79.7 and Hypothyroidism, unspecified type E03.9 [place] [id number] [place] [address] 64214- 0874 Dec, Seborrheic keratoses L82.1 [place] [id number] [place] [address] [phone]- 9880 Dec, [place] [id number] [place] [address] [id number]- 0905 Dec, [place] [id number] [place] [address] 44756- 5739 Nov, Sebaceous cyst L72.3 [place] [id number] [place] [address] 23882- 6895 October, Breast cancer screening Z12.39 [place] [id number] [place] [address] 74021- 7856 October, Fibromyalgia M79.7 ; Hypothyroidism, unspecified type E03.9 and Reflex sympathetic dystrophy G90.50 [place] [id number] [place] [address] 08429- 9234 October, Reflex sympathetic dystrophy G90.50 ; Fibromyalgia M79.7 and Hypothyroidism, unspecified type E03.9 IMMUNIZATIONS No Known Immunizations SOCIAL HISTORY Never Assessed REASON FOR VISIT Hydrocodone 11/04 PLAN OF CARE VITAL SIGNS MEDICATIONS Medication [...]
--- OUTSIDE RECORDS SUMMARY | 2018-03-07 17:51 | XMS REPORT ---
Author Author FRANK CHAPMAN Organization [facility] Address [address] [place] [address] Care Team Providers [employer] Name Role Phone FRANK CHAPMAN Unavailable PROBLEMS Type Condition ICD9-CM Code BYP65-XZ Code Onset Dates Condition Status SNOMED Code Problem Reactive depression F32.9 Active 12142508 Problem Plantar wart of right foot B07.0 Active 00028720 Problem Gastroesophageal reflux disease, esophagitis presence not specified K21.9 Active 637712294 Problem Internal derangement of right knee M23.91 Active [id number] Problem Abnormal laboratory test R89.9 Active 762060927 Problem Mixed hyperlipidemia E78.2 Active 716390635 Problem Rosacea L71.9 Active 399079799 Problem Mild episode of recurrent major depressive disorder F33.0 Active 884726614 Problem Generalized anxiety disorder F41.1 Active 78889891 Problem Hypothyroidism, unspecified type E03.9 Active 17310186 Problem Right elbow pain M25.521 Active 44704816 Problem Right wrist pain M25.531 Active 35472966 Problem Reflex sympathetic dystrophy G90.50 Active 92513480 Problem Venous insufficiency I87.2 Active 42352044 Problem Fibromyalgia M79.7 Active 308988084 Problem Arthritis M19.90 Active 8762263 ALLERGIES No Information ENCOUNTERS Encounter Location Date Diagnosis [facility] [id number] [address] Feb, [facility] [address] [address] Feb, [facility] [address] [address] 0261 Feb, [facility] [id number] [address] 9934 Jan, [facility] [address] [address] Jan, [facility] [id number] [place] [address] 14460- 7176 Jan, [facility] [id number] [place] [address] 25072- 0813 Jan, [facility] [id number] [place] [address] 23968- 1026 Jan, Fibromyalgia M79.7 [facility] [id number] [place] [address] 77199- 2369 Jan, Bronchospasm J98.01 [facility] [id number] [place] [address] 30709- 3042 Jan, [facility] [id number] [place] [address] 81637- 8899 Jan, Generalized anxiety disorder F41.1 and Mild episode of recurrent major depressive disorder F33.0 [facility] [id number] [place] [address] 23381- 0967 Jan, Bronchitis J40 [facility] [id number] [place] [address] 39192- 4898 Dec, Mild episode of recurrent major depressive disorder F33.0 [facility] [id number] [place] [address] 10960- 8824 Dec, Generalized anxiety disorder F41.1 and Mild episode of recurrent major depressive disorder F33.0 [facility] [address] [address] 2371 Dec, Fibromyalgia M79.7 ; Arthritis M19.90 and Generalized anxiety disorder F41.1 [facility] [address] [address] 7694 Dec, Mild episode of recurrent major depressive disorder F33.0 and Generalized anxiety disorder F41.1 [facility] [id number] [place] [address] 28914- 0548 Dec, Fibromyalgia M79.7 [facility] [address] [address] 1711 Dec, Bronchitis J40 and Internal derangement of right knee M23.91 [facility] [address] [address] Dec, Cough R05 [facility] [id number] [place] [address] 24670- 0116 Dec, Generalized anxiety disorder F41.1 and Mild episode of recurrent major depressive disorder F33.0 [facility] [id number] [place] [address] 23533- 9383 Dec, [facility] [id number] [place] [address] 29994 -0698 Dec, [facility] [id number] [place] [address] 98072- 9541 Dec, Mild episode of recurrent major depressive disorder F33.0 and Generalized anxiety disorder F41.1 [facility] [id number] [place] [address] 39657- 7078 Nov, [facility] [id number] [place] [address] 19678- 6906 Nov, [facility] [id number] [place] [address] 71882- 3286 Nov, [facility] [id number] [place] [address] 71579- 0547 Nov, Internal derangement of right knee M23.91 [facility] [id number] [place] [address] 52582- 0817 Nov, Generalized anxiety disorder F41.1 and Mild episode of recurrent major depressive disorder F33.0 [facility] [address] [address]- 4126 Nov, Internal derangement of right knee M23.91 [facility] [address] [address] 19 Nov, 2017 Acute right ankle pain M25.571 ; Acute pain of right knee M25.561 ; Acute left-sided low back pain without sciatica M54.5 and Right leg pain M79.604 [facility] [id number] [place] [address] 92028- 0021 15 Nov, 2017 [facility] [id number] [place] [address] 58384- 0281 14 Nov, 2017 Fibromyalgia M79.7 [facility] [id number] [place] [address] 67621- 5376 13 Nov, 2017 Generalized anxiety disorder F41.1 and Mild episode of recurrent major depressive disorder F33.0 [facility] [id number] [place] [address] 73725- 0057 Nov, [facility] [id number] [place] [address] 03948- 6430 October, Generalized anxiety disorder F41.1 and Mild episode of recurrent major depressive disorder F33.0 [facility] [id number] [place] [address] 09713- 0506 October, Fibromyalgia M79.7 [facility] [id number] [place] [address] 37370- 3796 October, [facility] [id number] [place] [address] 51175- 4095 October, Generalized anxiety disorder F41.1 and Mild episode of recurrent major depressive disorder F33.0 [facility] [id number] [place] [address] 12665- 1065 October, [facility] [id number] [place] [address] 89223- 6405 Sep, Gastroesophageal reflux disease, esophagitis presence not specified K21.9 and Abnormal laboratory test R89.9 [facility] [id number] [place] [address] 56689- 0648 18 Sep, 2017 Fibromyalgia M79.7 [facility] [id number] [place] [address] 88983- 3560 17 Sep, 2017 Generalized anxiety disorder F41.1 and Mild episode of recurrent major depressive disorder F33.0 [facility] [id number] [place] [address] 34276- 1570 13 Sep, 2017 Epigastric pain R10.13 [facility] [id number] [place] [address] 38679- 0636 10 Sep, 2017 Mild episode of recurrent major depressive disorder F33.0 and Generalized anxiety disorder F41.1 [facility] [id number] [place] [address] 39621- 0658 Sep, Abnormal laboratory test R89.9 [facility] [id number] [place] [address] 75129- 0291 Sep, Generalized anxiety disorder F41.1 and Mild episode of recurrent major depressive disorder F33.0 [facility] [id number] [place] [address] 21170- 3279 29 Aug, 2017 Epigastric pain R10.13 and Encounter for therapeutic drug level monitoring Z51.[address] [facility] [address] [address] 28 Aug, 2017 Epigastric pain R10.13 and Gastro-esophageal reflux disease without esophagitis K21.9 [facility] [id number] [place] [address] 11954- 8588 Aug, [facility] [id number] [place] [address] 35475- 9407 Aug, Epigastric pain R10.13 [facility] [id number] [place] [address] 72684- 3085 20 Aug, 2017 Fibromyalgia M79.7 [facility] [address] [address]- 4273 14 Aug, 2017 [facility] [id number] [place] [address] 26656- 1106 14 Aug, 2017 Generalized anxiety disorder F41.1 and Mild episode of recurrent major depressive disorder F33.0 [facility] [id number] [place] [address] 52714- 5671 08 Aug, 2017 Epigastric pain R10.13 ; Reflex sympathetic dystrophy G90.50 and Arthritis M19.90 [place] [address] 60636- 5036 Jul, Generalized anxiety disorder F41.1 and Mild episode of recurrent major depressive disorder F33.0 [place] [address] 89538- 5163 Jul, BMI 40.0-44.9, adult Z68.41 ; Mild episode of recurrent major depressive disorder F33.0 and Generalized anxiety disorder F41.1 [place] [facility] [address] 40686- 1737 Jul, Fibromyalgia M79.7 [facility] [id number] [place] [address] 90295- 4348 Jun, Mild episode of recurrent major depressive disorder F33.0 and Generalized anxiety disorder F41.1 [facility] [id number] [place] [address] 71404- 1781 Jun, Fibromyalgia M79.7 [facility] [id number] [place] [address] 60821- 0585 Jun, Generalized anxiety disorder F41.1 and Mild episode of recurrent major depressive disorder F33.0 [facility] [id number] [place] [address] 69152- 7405 Jun, Generalized anxiety disorder F41.1 and Mild episode of recurrent major depressive disorder F33.0 [place] [id number] [place] [address] 18603- 2687 Jun, Generalized anxiety disorder F41.1 and Mild episode of recurrent major depressive disorder F33.0 [facility] [id number] [place] [address] 58513- 2141 Jun, [facility] [id number] [place] [address] 57705- 5828 Jun, Generalized anxiety disorder F41.1 and Mild episode of recurrent major depressive disorder F33.0 [facility] [id number] [place] [address] 96922- 8933 May, Fibromyalgia M79.7 [facility] [id number] [place] [address] 06183- 2941 May, Generalized anxiety disorder F41.1 and Mild episode of recurrent major depressive disorder F33.0 [facility] [id number] [place] [address] 63067- 4226 May, Mixed hyperlipidemia E78.2 ; Arthritis M19.90 ; Reactive depression F32.9 and Hypothyroidism, unspecified type E03.9 [facility] [id number] [place] [address] 90015- 1488 May, Arthritis M19.90 ; Reactive depression F32.9 ; Mixed hyperlipidemia E78.2 and Hypothyroidism, unspecified type E03.9 [facility] [id number] [place] [address] 98619- 1339 Apr, Fibromyalgia M79.7 [facility] [id number] [place] [address] 31153- 6776 Apr, [facility] [id number] [place] [address] 22557- 4932 Apr, Fibromyalgia M79.7 [facility] [id number] [place] [address] 81325- 7858 Mar, Fibromyalgia M79.7 [facility] [id number] [place] [address] 45568- 5149 Mar, [facility] [id number] [place] [address] 11329- 2924 Mar, Fibromyalgia M79.7 [facility] [id number] [place] [address] 47942- 4054 Mar, [facility] [address] 49936- 1036 Feb, Reflex sympathetic dystrophy G90.50 ; Right arm pain M79.601 and Fibromyalgia M79.7 [facility] [id number] [place] [address] 45362- 0446 Feb, [facility] [address] 35834- 1566 Feb, Anxiety F41.9 [facility] [address] 45899- 1331 Feb, Fibromyalgia M79.7 [facility] [address] 73721- 1982 Feb, [facility] [address] 07256- 6486 Feb, [facility] [address] 28235- 0373 Jan, Temporal headache R51 [facility] [address] 14309- 0128 Jan, Fibromyalgia M79.7 [facility] [id number] [place] [address] 35590- 1943 Dec, Fibromyalgia M79.7 [facility] [id number] [place] [address] 77238- 4466 Nov, Peroneal tendonitis, unspecified laterality M76.70 and Plantar fasciitis, bilateral M72.2 [facility] [id number] [place] [address] 60798- 3649 Nov, Fibromyalgia M79.7 [facility] [id number] [place] [address] 87516- 7723 October, Fibromyalgia M79.7 [facility] [id number] [place] [address] 18179- 6890 October, Plantar fasciitis, bilateral M72.2 and Peroneal tendonitis, unspecified laterality M76.70 [place] [address] 45987- 3206 October, Fibromyalgia M79.7 [place] [address] 26163- 2560 Sep, Anxiety F41.9 [place] [address] 28944- 3321 Aug, Anxiety F41.9 and Adjustment disorder with anxiety F43.22 [place] [address] 21358- 4859 Aug, Pain of left foot M79.672 [place] [address] 04182- 7494 Aug, Pain of left foot M79.672 and Pain in right foot M79.671 [facility] [id number] [place] [address] 59083- 9984 Aug, Arthritis M19.90 ; Reactive depression F32.9 ; Fibromyalgia M79.7 ; Rosacea L71.9 ; Pain in right foot M79.671 and Pain of left foot M79.672 [facility] [id number] [place] [address] 45012- 1638 Aug, Anxiety F41.9 ; Adjustment disorder with anxiety F43.22 and Reactive depression F32.9 [facility] [id number] [place] [address] 90096- 2305 Aug, Right elbow pain M25.521 [place] [address] 91211- 5583 Aug, Plantar wart of right foot B07.0 and Actinic keratosis L57.0 [place] [address] 68996- 4811 Aug, Fibromyalgia M79.7 [facility] [address] 95780- 794 Jul, Arthritis M19.90 ; Hypothyroidism, unspecified type E03.9 ; Reactive depression F32.9 and Venous insufficiency I87.2 [facility] [address] 65378- 9240 Jul, Gastroesophageal reflux disease, esophagitis presence not specified K21.9 [facility] [address] 39289- 6806 Jul, Reflex sympathetic dystrophy G90.50 [place] [address] 31295- 1975 Jul, Anxiety F41.9 ; Adjustment disorder with anxiety F43.22 and Reactive depression F32.9 [place] [place] [address] 48030- 1578 Jul, [facility] [address] 98500- 8047 Jul, Right elbow pain M25.521 [place] [address] 88599- 8459 Jun, Fibromyalgia M79.7 [facility] [address] 39920- 5625 Jun, Anxiety F41.9 ; Adjustment disorder with anxiety F43.22 and Reactive depression F32.9 [facility] [id number] [place] [address] 22367- 8178 Jun, [facility] [address] 09517- 5532 Jun, Atypical chest pain R07.89 and Adjustment disorder with anxiety F43.22 [place] [address] [id number] Jun, Chest pain, unspecified type R07.9 [facility] [id number] [place] [address] 24849- 3501 Jun, Fibromyalgia M79.7 [facility] [address] 27941- 8300 May, Anxiety F41.9 [facility] [address] 35174- 7015 May, [facility] [address] 21753- 4865 May, Right elbow pain M25.521 [facility] [address] 97285- 7189 Apr, Reflex sympathetic dystrophy G90.50 and Encounter for immunization Z23 [facility] [address] 13658- 2575 Apr, [facility] [address] 92482- 4872 Mar, [facility] [address] 61200- 6040 Feb, [facility] [address] 52178- 7547 Feb, [facility] [address] 78401- 8591 Jan, [facility] [address] 16098- 1722 Jan, Right elbow pain M25.521 and Right wrist pain M25.531 [facility] [address] 02134- 8111 Jan, [facility] [address] 35540- 6836 Dec, Seborrheic keratoses L82.1 [facility] [address] 50015- 9590 Dec, [facility] [address] [address]- 9272 Dec, [facility] [id number] [place] [address] 67464- 5032 Dec, [facility] [id number] [place] [address] 77547- 8170 Dec, Fibromyalgia M79.7 and Hypothyroidism, unspecified type E03.9 [facility] [id number] [place] [address] 45219- 8069 Dec, Seborrheic keratoses L82.1 [facility] [place] [id number] [place] [address] 88954- 1447 Dec, [facility] [id number] [place] [address] 62261- 6223 Dec, [facility] [id number] [place] [address] 69253- 9218 Nov, Sebaceous cyst L72.3 [facility] [id number] [place] [address] 55776- 2345 October, Breast cancer screening Z12.39 [facility] [id number] [place] [address] 25290- 7835 October, Fibromyalgia M79.7 ; Hypothyroidism, unspecified type E03.9 and Reflex sympathetic dystrophy G90.50 [facility] [id number] [place] [address] 45200- 8094 October, Reflex sympathetic dystrophy G90.50 ; Fibromyalgia M79.7 and Hypothyroidism, unspecified type E03.9 IMMUNIZATIONS No Known Immunizations SOCIAL HISTORY Never Assessed REASON FOR VISIT BH f/u, Anxiety and depresson. PLAN OF CARE Activity Details Follow Up 2 Weeks Reason:anxiety and depression VITAL SIGNS MEDICATIONS Unknown Medications RESULTS No Results PROCEDURES Procedure Date Ordered Result Body Site [facility] VISIT MENTAL HEALTH ESTAB PT November 16, 2017 Psychotherapy, patient &/family, 30 minutes, established patient November 16, 2017 INSTRUCTIONS MEDICATIONS ADMINISTERED No Known Medications [...]
--- OUTSIDE RECORDS SUMMARY | 2018-03-07 17:52 | XMS REPORT ---
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 Name Role Phone FRANK CHAPMAN Unavailable PROBLEMS Type Condition ICD9-CM Code TQS20-ET Code Onset Dates Condition Status SNOMED Code Problem Reactive depression F32.9 Active 80768152 Problem Plantar wart of right foot B07.0 Active 85968319 Problem Gastroesophageal reflux disease, esophagitis presence not specified K21.9 Active 309101565 Problem Internal derangement of right knee M23.91 Active [id number] Problem Abnormal laboratory test R89.9 Active 846942905 Problem Mixed hyperlipidemia E78.2 Active 682606840 Problem Rosacea L71.9 Active 089230780 Problem Mild episode of recurrent major depressive disorder F33.0 Active 050857415 Problem Generalized anxiety disorder F41.1 Active 72339682 Problem Hypothyroidism, unspecified type E03.9 Active 36778951 Problem Right elbow pain M25.521 Active 24258340 Problem Right wrist pain M25.531 Active 14332048 Problem Reflex sympathetic dystrophy G90.50 Active 04628960 Problem Venous insufficiency I87.2 Active 93154530 Problem Fibromyalgia M79.7 Active 491603753 Problem Arthritis M19.90 Active 7003400 ALLERGIES No Information ENCOUNTERS Encounter Location Date Diagnosis [facility] [id number], [place] [address] Feb, [facility] [address], [place] [address] Feb, [facility] [address], [place] [address] Jan, [facility] [id number], [place] [address] Jan, [facility] [address], [place] [address] Jan, [facility] [id number] [place] [address] 44666- 8959 Jan, [facility] [id number] [place] [address] 44974- 9557 Jan, Generalized anxiety disorder F41.1 and Mild episode of recurrent major depressive disorder F33.0 [facility] [id number] [place] [address] 17427- 2888 Jan, Bronchitis J40 [facility] [id number] [place] [address] 63771- 6374 Dec, Mild episode of recurrent major depressive disorder F33.0 [facility] [id number] [place] [address] 96620- 7657 Dec, Generalized anxiety disorder F41.1 and Mild episode of recurrent major depressive disorder F33.0 [facility] [id number] [place] [address] 96201- 2747 Dec, Fibromyalgia M79.7 ; Arthritis M19.90 and Generalized anxiety disorder F41.1 [facility] [id number] [place] [address] 20877- 3701 Dec, Mild episode of recurrent major depressive disorder F33.0 and Generalized anxiety disorder F41.1 [facility] [id number] [place] [address] 99584- 1054 Dec, Fibromyalgia M79.7 [facility] [id number] [place] [address] 05796- 8161 Dec, Bronchitis J40 and Internal derangement of right knee M23.91 [facility] [id number] [place] [address] 69402 -4726 Dec, Cough R05 [facility] [id number] [place] [address] 70128- 0097 Dec, Generalized anxiety disorder F41.1 and Mild episode of recurrent major depressive disorder F33.0 [facility] [address], [place] [address] 16[address] Dec, [facility] [address], [place] [address] Dec, [facility] [address], [place] [address] 7634 Dec, Mild episode of recurrent major depressive disorder F33.0 and Generalized anxiety disorder F41.1 [facility] [id number] [place] [address] 32860- 3923 30 Nov, 2017 [facility] [id number] [place] [address] 58850- 4276 Nov, [facility] [id number] [place] [address] 27983- 7279 Nov, [facility] [id number] [place] [address] 07760- 3348 Nov, Internal derangement of right knee M23.91 [facility] [id number] [place] [address] 44192- 2101 Nov, Generalized anxiety disorder F41.1 and Mild episode of recurrent major depressive disorder F33.0 [facility] [address], [place] [address] 2738 Nov, Internal derangement of right knee M23.91 [facility] [address], [place] [address] Nov, Acute right ankle pain M25.571 ; Acute pain of right knee M25.561 ; Acute left-sided low back pain without sciatica M54.5 and Right leg pain M79.604 [facility] [address], [place] [address] 0612 15 Nov, 2017 [facility] [address], [place] [address] 5199 14 Nov, 2017 Fibromyalgia M79.7 [facility] [id number] [place] [address] 53948- 7967 Nov, Generalized anxiety disorder F41.1 and Mild episode of recurrent major depressive disorder F33.0 [facility] [id number] [place] [address] 93906- 1835 Nov, [facility] [id number] [place] [address] 64024- 1347 October, Generalized anxiety disorder F41.1 and Mild episode of recurrent major depressive disorder F33.0 [facility] [id number] [place] [address] 00656- 3269 October, Fibromyalgia M79.7 [facility] [id number] [place] [address] 97615- 9064 October, [facility] [id number] [place] [address] 68991- 2084 October, Generalized anxiety disorder F41.1 and Mild episode of recurrent major depressive disorder F33.0 [facility] [id number] [place] [address] 85761- 8954 October, [facility] [id number] [place] [address] 71602- 1730 Sep, Gastroesophageal reflux disease, esophagitis presence not specified K21.9 and Abnormal laboratory test R89.9 [facility] [id number] [place] [address] 29518- 5530 Sep, Fibromyalgia M79.7 [facility] [id number] [place] [address] 86320- 7629 Sep, Generalized anxiety disorder F41.1 and Mild episode of recurrent major depressive disorder F33.0 [facility] [id number] [place] [address] 73308- 2279 Sep, Epigastric pain R10.13 [facility] [id number] [place] [address] 06398- 7557 Sep, Mild episode of recurrent major depressive disorder F33.0 and Generalized anxiety disorder F41.1 [facility] [id number] [place] [address] 25469- 5580 Sep, Abnormal laboratory test R89.9 [facility] [address] 83487- 5004 Sep, Generalized anxiety disorder F41.1 and Mild episode of recurrent major depressive disorder F33.0 [facility] [address] 46142- 2695 Aug, Epigastric pain R10.13 and Encounter for therapeutic drug level monitoring Z51.81 [facility] [address] 9[address]24 -9536 Aug, Epigastric pain R10.13 and Gastro-esophageal reflux disease without esophagitis K21.9 [facility] [address] 44886- 2935 Aug, [facility] [address] 63579- 6887 Aug, Epigastric pain R10.13 [facility] [address] 89508- 9710 Aug, Fibromyalgia M79.7 [facility] [address] 61929- 3900 14 Aug, 2017 [facility] [address] 13943- 1232 Aug, Generalized anxiety disorder F41.1 and Mild episode of recurrent major depressive disorder F33.0 [facility] [address] 91094- 0342 08 Aug, 2017 Epigastric pain R10.13 ; Reflex sympathetic dystrophy G90.50 and Arthritis M19.90 [facility] [address] 31018- 8044 Jul, Generalized anxiety disorder F41.1 and Mild episode of recurrent major depressive disorder F33.0 [facility] [address], [place] [address] 2546 Jul, BMI 40.0-44.9, adult Z68.41 ; Mild episode of recurrent major depressive disorder F33.0 and Generalized anxiety disorder F41.1 [facility] [address], [place] [address] 2546 Jul, Fibromyalgia M79.7 [facility] [id number] [place] [address] 91425 2546 Jun, Mild episode of recurrent major depressive disorder F33.0 and Generalized anxiety disorder F41.1 [facility] [id number] [place] [address] 96891 2546 Jun, Fibromyalgia M79.7 [facility] [address], [place] [address] 2546 Jun, Generalized anxiety disorder F41.1 and Mild episode of recurrent major depressive disorder F33.0 [facility] [id number] [place] [address] 39226 2546 Jun, Generalized anxiety disorder F41.1 and Mild episode of recurrent major depressive disorder F33.0 [facility] [id number] [place] [address] 89815 2546 Jun, Generalized anxiety disorder F41.1 and Mild episode of recurrent major depressive disorder F33.0 [facility] [address], [place] [address] 2546 Jun, [facility] [id number], [place] [address] 2546 Jun, Generalized anxiety disorder F41.1 and Mild episode of recurrent major depressive disorder F33.0 [facility] [id number], [place] [address] 2546 May, Fibromyalgia M79.7 [facility] [id number] [address] May, Generalized anxiety disorder F41.1 and Mild episode of recurrent major depressive disorder F33.0 [facility] [address] 19743- 4703 May, Mixed hyperlipidemia E78.2 ; Arthritis M19.90 ; Reactive depression F32.9 and Hypothyroidism, unspecified type E03.9 [facility] [address] 82637- 5379 May, Arthritis M19.90 ; Reactive depression F32.9 ; Mixed hyperlipidemia E78.2 and Hypothyroidism, unspecified type E03.9 [facility] [address] 40689- 8563 Apr, Fibromyalgia M79.7 [facility] [address] 61230- 7899 Apr, [facility] [address] 59624- 1322 Apr, Fibromyalgia M79.7 [facility] [address] 73720- 5871 Mar, Fibromyalgia M79.7 [facility] [address] 93781- 9481 Mar, [facility] [id number] [place] [address] 02835- 8374 Mar, Fibromyalgia M79.7 [facility] [id number] [place] [address] 87273- 9055 Mar, [facility] [id number] [place] [address] 74676- 4127 Feb, Reflex sympathetic dystrophy G90.50 ; Right arm pain M79.601 and Fibromyalgia M79.7 [facility] [id number] [place] [address] 20972- 7663 Feb, [facility] [address] 96436- 2474 07 Feb, 2017 Anxiety F41.9 [facility] [id number] [place] [address] 98335- 9480 06 Feb, 2017 Fibromyalgia M79.7 [facility] [id number] [place] [address] 62851- 6958 Feb, [facility] [id number] [place] [address] 95480- 0581 Feb, [facility] [address] 67091- 8136 Jan, Temporal headache R51 [facility] [address] 47412- 1725 Jan, Fibromyalgia M79.7 [facility] [address] 38823- 9838 Dec, Fibromyalgia M79.7 [facility] [address] 37021- 9107 Nov, Peroneal tendonitis, unspecified laterality M76.70 and Plantar fasciitis, bilateral M72.2 [facility] [address] 15580- 3309 Nov, Fibromyalgia M79.7 [facility] [id number] [place] [address] 06285- 6060 October, Fibromyalgia M79.7 [facility] [id number] [place] [address] 83418- 4644 October, Plantar fasciitis, bilateral M72.2 and Peroneal tendonitis, unspecified laterality M76.70 [facility] [address] 88234- 5697 October, Fibromyalgia M79.7 [facility] [id number] [place] [address] 71401- 6285 Sep, Anxiety F41.9 [facility] [address] 65374- 4595 Aug, Anxiety F41.9 and Adjustment disorder with anxiety F43.22 [facility] [address] 20871- 1664 Aug, Pain of left foot M79.672 [facility] [id number] [place] [address] 70466- 1951 Aug, Pain of left foot M79.672 and Pain in right foot M79.671 [facility] [address] 39239- 6258 Aug, Arthritis M19.90 ; Reactive depression F32.9 ; Fibromyalgia M79.7 ; Rosacea L71.9 ; Pain in right foot M79.671 and Pain of left foot M79.672 [facility] [id number] [place] [address] 23804- 8039 Aug, Anxiety F41.9 ; Adjustment disorder with anxiety F43.22 and Reactive depression F32.9 [facility] [address] 73376- 2039 14 Aug, 2016 Right elbow pain M25.521 [facility] [address] 50519- 3620 Aug, Plantar wart of right foot B07.0 and Actinic keratosis L57.0 [facility] [id number] [place] [address] 88960- 7569 Aug, Fibromyalgia M79.7 [facility] [id number] [place] [address] 84144- 1878 Jul, Arthritis M19.90 ; Hypothyroidism, unspecified type E03.9 ; Reactive depression F32.9 and Venous insufficiency I87.2 [facility] [id number] [place] [address] 17176- 6272 Jul, Gastroesophageal reflux disease, esophagitis presence not specified K21.9 [facility] [address] 07036- 3532 17 Jul, 2016 Reflex sympathetic dystrophy G90.50 [facility] [address] 14121- 1192 17 Jul, 2016 Anxiety F41.9 ; Adjustment disorder with anxiety F43.22 and Reactive depression F32.9 [facility] [address] 54827- 5311 15 Jul, 2016 [facility] [address] 21570- 9448 Jul, Right elbow pain M25.521 [facility] [address] 86311- 0521 Jun, Fibromyalgia M79.7 [facility] [address] 55361- 2696 Jun, Anxiety F41.9 ; Adjustment disorder with anxiety F43.22 and Reactive depression F32.9 [facility] [address] 20998- 0577 Jun, [facility] [address] 29920- 2374 Jun, Atypical chest pain R07.89 and Adjustment disorder with anxiety F43.22 [facility] [address] [id number] Jun, Chest pain, unspecified type R07.9 [facility] [address] 67106- 5764 Jun, Fibromyalgia M79.7 [facility] [address] 74367- 6982 May, Anxiety F41.9 [facility] [address] 75732- 6530 14 May, 2016 [facility] [address] 67334- 3322 May, Right elbow pain M25.521 [facility] [id number] [place] [address] 44937- 4511 Apr, Reflex sympathetic dystrophy G90.50 and Encounter for immunization Z23 [facility] [id number] [place] [address] 05453- 7702 Apr, [facility] [address] 99614- 2351 Mar, [facility] [address] 03046- 8323 Feb, [facility] [address] 92829- 9963 Feb, [facility] [address] 69226- 8799 Jan, [facility] [address] 57272- 9393 Jan, Right elbow pain M25.521 and Right wrist pain M25.531 [facility] [id number] [place] [address] 44459- 3014 Jan, [facility] [id number] [place] [address] 44675- 7945 Dec, Seborrheic keratoses L82.1 [facility] [id number] [place] [address] 14575- 8502 Dec, [facility] [id number] [place] [address] 39554- 9574 Dec, [facility] [id number] [place] [address] 43055- 1883 Dec, [facility] [id number] [place] [address] 68553- 8182 Dec, Fibromyalgia M79.7 and Hypothyroidism, unspecified type E03.9 [facility] [address] 61970- 8106 Dec, Seborrheic keratoses L82.1 [facility] [address], [place] [address]- 3630 Dec, [facility] [id number] [place] [address] 95582- 2696 Dec, [facility] [id number] [place] [address] 53250- 5201 Nov, Sebaceous cyst L72.3 [facility] [id number] [place] [address] 48805- 6646 October, Breast cancer screening Z12.39 [facility] [address] [place] [address] 14435- 1020 October, Fibromyalgia M79.7 ; Hypothyroidism, unspecified type E03.9 and Reflex sympathetic dystrophy G90.50 [facility] [address], [place] [address]- 6009 October, Reflex sympathetic dystrophy G90.50 ; Fibromyalgia M79.7 and Hypothyroidism, unspecified type E03.9 IMMUNIZATIONS No Known Immunizations SOCIAL HISTORY Never Assessed REASON FOR VISIT BH f/u, Anxiety and depresson. PLAN OF CARE Activity Details Follow Up 2 Weeks Reason:deperssion & anxiety VITAL SIGNS MEDICATIONS Unknown Medications RESULTS No Results PROCEDURES Procedure Date Ordered Result Body Site [facility] VISIT [facility] NEW PT October 20, 2017 Psychotherapy, patient &/family, 45 minutes, new patient October 20, 2017 INSTRUCTIONS MEDICATIONS ADMINISTERED No Known Medications [...]
--- OUTSIDE RECORDS SUMMARY | 2018-03-07 17:52 | XMS REPORT ---
Author Author JOE BAI Organization [facility] Address [address] [place] [address] Care Team Providers Care Glove Tagger Name Role Phone JOE BAI Unavailable PROBLEMS Type Condition ICD9-CM Code WJR01-FT Code Onset Dates Condition Status SNOMED Code Problem Reactive depression F32.9 Active 61104801 Problem Plantar wart of right foot B07.0 Active 58890239 Problem Gastroesophageal reflux disease, esophagitis presence not specified K21.9 Active 940349612 Problem Internal derangement of right knee M23.91 Active 400248821892433 Problem Abnormal laboratory test R89.9 Active 668923054 Problem Mixed hyperlipidemia E78.2 Active 597451751 Problem Rosacea L71.9 Active 091512516 Problem Mild episode of recurrent major depressive disorder F33.0 Active 828905459 Problem Generalized anxiety disorder F41.1 Active 45976185 Problem Hypothyroidism, unspecified type E03.9 Active 59610388 Problem Right elbow pain M25.521 Active 52592886 Problem Right wrist pain M25.531 Active 75862926 Problem Reflex sympathetic dystrophy G90.50 Active 84883602 Problem Venous insufficiency I87.2 Active 41805119 Problem Fibromyalgia M79.7 Active 932863518 Problem Arthritis M19.90 Active 4694208 ALLERGIES No Information ENCOUNTERS Encounter Location Date Diagnosis [facility] [address] [address] Feb, [facility] [id number] [place] [address] 49687- 9960 Feb, [facility] [id number] [place] [address] 15137- 0294 Jan, [facility] [address], [place] [address] 6320 Jan, [facility] [address] [address] 2503 Jan, [facility] [id number] [place] [address] 19337- 7703 Jan, [facility] [id number] [place] [address] 85280- 3301 Jan, [facility] [id number] [place] [address] 22969- 8110 Jan, Generalized anxiety disorder F41.1 and Mild episode of recurrent major depressive disorder F33.0 [facility] [id number] [place] [address] 41081- 4644 Jan, Bronchitis J40 [facility] [id number] [place] [address] 03732- 4140 Dec, Mild episode of recurrent major depressive disorder F33.0 [facility] [id number] [place] [address] 75994- 6389 Dec, Generalized anxiety disorder F41.1 and Mild episode of recurrent major depressive disorder F33.0 [facility] [id number] [place] [address] 66552- 8431 Dec, Fibromyalgia M79.7 ; Arthritis M19.90 and Generalized anxiety disorder F41.1 [facility] [id number] [place] [address] 39054- 0895 Dec, Mild episode of recurrent major depressive disorder F33.0 and Generalized anxiety disorder F41.1 [facility] [address], [place] [address] 3365 Dec, Fibromyalgia M79.7 [facility] [id number] [place] [address] 41857- 0498 Dec, Bronchitis J40 and Internal derangement of right knee M23.91 [facility] [address], [place] [address] Dec, Cough R05 [facility] [address], [place] [address] 0728 Dec, Generalized anxiety disorder F41.1 and Mild episode of recurrent major depressive disorder F33.0 [facility] [address], [place] [address] 5671 Dec, [facility] [address], [place] [address] Dec, [facility] [id number] [place] [address] 72557- 9681 Dec, Mild episode of recurrent major depressive disorder F33.0 and Generalized anxiety disorder F41.1 [facility] [id number] [place] [address] 62116- 7242 Nov, [facility] [address], [place] [address] 2179 Nov, [facility] [id number], [place] [address] 8875 Nov, [facility] [address], [place] [address] 4554 Nov, Internal derangement of right knee M23.91 [facility] [address], [place] [address] 5486 Nov, Generalized anxiety disorder F41.1 and Mild episode of recurrent major depressive disorder F33.0 [facility] [address], [place] [address] 0245 Nov, Internal derangement of right knee M23.91 [facility] [address], [place] [address] Nov, Acute right ankle pain M25.571 ; Acute pain of right knee M25.561 ; Acute left-sided low back pain without sciatica M54.5 and Right leg pain M79.604 [facility] [address], [place] [address] 8584 15 Nov, 2017 [place] [id number] [place] [address] 43578- 9849 Nov, Fibromyalgia M79.7 [facility] [id number] [place] [address] 85189- 8537 Nov, Generalized anxiety disorder F41.1 and Mild episode of recurrent major depressive disorder F33.0 [facility] [id number] [place] [address] 39815- 7952 Nov, [facility] [id number] [place] [address] 17802- 6254 October, Generalized anxiety disorder F41.1 and Mild episode of recurrent major depressive disorder F33.0 [facility] [id number] [place] [address] 28203- 8280 October, Fibromyalgia M79.7 [facility] [id number] [place] [address] 45360- 5993 October, [facility] [id number] [place] [address] 79916- 5994 October, Generalized anxiety disorder F41.1 and Mild episode of recurrent major depressive disorder F33.0 [facility] [id number] [place] [address] 07537- 5369 October, [facility] [id number] [place] [address] 42210- 3421 Sep, Gastroesophageal reflux disease, esophagitis presence not specified K21.9 and Abnormal laboratory test R89.9 [facility] [id number] [place] [address] 16718- 3301 Sep, Fibromyalgia M79.7 [facility] [id number] [place] [address] 13814- 2291 Sep, Generalized anxiety disorder F41.1 and Mild episode of recurrent major depressive disorder F33.0 [facility] [id number] [place] [address] 10305- 2043 Sep, Epigastric pain R10.13 [facility] [id number] [place] [address] 07977- 4375 10 Sep, 2017 Mild episode of recurrent major depressive disorder F33.0 and Generalized anxiety disorder F41.1 [facility] [id number] [place] [address] 49228- 2158 02 Sep, 2017 Abnormal laboratory test R89.9 [place] [address] 42458- 5543 02 Sep, 2017 Generalized anxiety disorder F41.1 and Mild episode of recurrent major depressive disorder F33.0 [facility] [id number] [place] [address] 90751- 0173 29 Aug, 2017 Epigastric pain R10.13 and Encounter for therapeutic drug level monitoring Z51.81 [facility] [id number] [place] [address] 06902 -8246 28 Aug, 2017 Epigastric pain R10.13 and Gastro-esophageal reflux disease without esophagitis K21.9 [facility] [id number] [place] [address] 55296- 7798 Aug, [facility] [place] [address] 94914- 4879 21 Aug, 2017 Epigastric pain R10.13 [facility] [id number] [place] [address] 34077- 6984 Aug, Fibromyalgia M79.7 [facility] [id number] [place] [address] 60402- 7772 14 Aug, 2017 [place] [id number] [place] [address] 86231- 4283 14 Aug, 2017 Generalized anxiety disorder F41.1 and Mild episode of recurrent major depressive disorder F33.0 [facility] [id number] [place] [address] 51027- 1766 08 Aug, 2017 Epigastric pain R10.13 ; Reflex sympathetic dystrophy G90.50 and Arthritis M19.90 [facility] [address] [place] [address]- 3623 Jul, Generalized anxiety disorder F41.1 and Mild episode of recurrent major depressive disorder F33.0 [facility] [id number] [place] [address] 13031- 1926 Jul, BMI 40.0-44.9, adult Z68.41 ; Mild episode of recurrent major depressive disorder F33.0 and Generalized anxiety disorder F41.1 [facility] [id number] [place] [address] 56537- 9053 Jul, Fibromyalgia M79.7 [facility] [id number] [place] [address] 06194- 7816 Jun, Mild episode of recurrent major depressive disorder F33.0 and Generalized anxiety disorder F41.1 [place] [id number] [place] [address] 43680- 6316 Jun, Fibromyalgia M79.7 [facility] [id number] [place] [address] 47256- 0359 Jun, Generalized anxiety disorder F41.1 and Mild episode of recurrent major depressive disorder F33.0 [facility] [id number] [place] [address] 08000- 5620 Jun, Generalized anxiety disorder F41.1 and Mild episode of recurrent major depressive disorder F33.0 [facility] [id number] [place] [address] 77536- 2897 Jun, Generalized anxiety disorder F41.1 and Mild episode of recurrent major depressive disorder F33.0 [facility] [id number] [place] [address] 08594- 1576 Jun, [facility] [id number] [place] [address] 93043- 2546 Jun, Generalized anxiety disorder F41.1 and Mild episode of recurrent major depressive disorder F33.0 [facility] [id number] [place] [address] 12308- 3062 May, Fibromyalgia M79.7 [facility] [id number] [place] [address] 47864- 5581 May, Generalized anxiety disorder F41.1 and Mild episode of recurrent major depressive disorder F33.0 [facility] [id number] [place] [address] 39221- 0396 May, Mixed hyperlipidemia E78.2 ; Arthritis M19.90 ; Reactive depression F32.9 and Hypothyroidism, unspecified type E03.9 [facility] [id number] [place] [address] 25186- 2254 May, Arthritis M19.90 ; Reactive depression F32.9 ; Mixed hyperlipidemia E78.2 and Hypothyroidism, unspecified type E03.9 [facility] [id number] [place] [address] 11384- 4805 Apr, Fibromyalgia M79.7 [facility] [id number] [place] [address] 44625- 2859 Apr, [facility] [id number] [place] [address] 19203- 9840 Apr, Fibromyalgia M79.7 [facility] [id number] [place] [address] 14592- 4947 Mar, Fibromyalgia M79.7 [facility] [id number] [place] [address] 31828- 7539 Mar, [facility] [id number] [place] [address] 68101- 5093 Mar, Fibromyalgia M79.7 [facility] [id number] [place] [address] 83315- 4630 Mar, [facility] [id number] [place] [address] 37546- 5873 Feb, Reflex sympathetic dystrophy G90.50 ; Right arm pain M79.601 and Fibromyalgia M79.7 [facility] [id number] [place] [address] 14978- 6922 Feb, [facility] [address] [place] [address] 46909- 2629 Feb, Anxiety F41.9 [facility] [id number] [place] [address] 42599- 6420 Feb, Fibromyalgia M79.7 [facility] [id number] [place] [address] 94204- 8752 Feb, [facility] [id number] [place] [address] 13074- 6836 Feb, [facility] [id number] [place] [address] 14995- 9898 Jan, Temporal headache R51 [facility] [id number] [place] [address] 05985- 6630 Jan, Fibromyalgia M79.7 [facility] [id number] [place] [address] 19090- 6095 Dec, Fibromyalgia M79.7 [facility] [id number] [place] [address] 21505- 0654 Nov, Peroneal tendonitis, unspecified laterality M76.70 and Plantar fasciitis, bilateral M72.2 [facility] [id number] [place] [address] 15854- 7387 Nov, Fibromyalgia M79.7 [facility] [id number] [place] [address] 30659- 0523 October, Fibromyalgia M79.7 [facility] [id number] [place] [address] 44030- 0632 October, Plantar fasciitis, bilateral M72.2 and Peroneal tendonitis, unspecified laterality M76.70 [facility] [id number] [place] [address] 11516- 7739 October, Fibromyalgia M79.7 [facility] [id number] [place] [address] 44517- 8516 Sep, Anxiety F41.9 [place] [address] 49912- 6304 Aug, Anxiety F41.9 and Adjustment disorder with anxiety F43.22 [facility] [id number] [place] [address] 22459- 8658 Aug, Pain of left foot M79.672 [place] [address] 70989- 8136 Aug, Pain of left foot M79.672 and Pain in right foot M79.671 [place] [address] 29398- 3153 Aug, Arthritis M19.90 ; Reactive depression F32.9 ; Fibromyalgia M79.7 ; Rosacea L71.9 ; Pain in right foot M79.671 and Pain of left foot M79.672 [place] [address] 53010- 6539 Aug, Anxiety F41.9 ; Adjustment disorder with anxiety F43.22 and Reactive depression F32.9 [place] [address] 36146- 8438 Aug, Right elbow pain M25.521 [facility] [id number] [place] [address] 87796- 8897 Aug, Plantar wart of right foot B07.0 and Actinic keratosis L57.0 [facility] [id number] [place] [address] 58327- 1812 Aug, Fibromyalgia M79.7 [place] [address] 25307- 6569 Jul, Arthritis M19.90 ; Hypothyroidism, unspecified type E03.9 ; Reactive depression F32.9 and Venous insufficiency I87.2 [place] [address] 32533- 9599 20 Jul, 2016 Gastroesophageal reflux disease, esophagitis presence not specified K21.9 [place] [address] 88246- 4992 17 Jul, 2016 Reflex sympathetic dystrophy G90.50 [place] [address] 06885- 6766 17 Jul, 2016 Anxiety F41.9 ; Adjustment disorder with anxiety F43.22 and Reactive depression F32.9 [place] [address] 21874- 8949 15 Jul, 2016 [place] [address] 81565- 9007 03 Jul, 2016 Right elbow pain M25.521 [place] [address] 76382- 7163 Jun, Fibromyalgia M79.7 [place] [address] 02048- 2080 Jun, Anxiety F41.9 ; Adjustment disorder with anxiety F43.22 and Reactive depression F32.9 [place] [address] 36560- 2458 Jun, [place] [address] 61658- 8622 Jun, Atypical chest pain R07.89 and Adjustment disorder with anxiety F43.22 [facility] [address] [id number] Jun, Chest pain, unspecified type R07.9 [place] [address] 31500- 3064 Jun, Fibromyalgia M79.7 [place] [address] 39418- 3773 May, Anxiety F41.9 [place] [address] 78090- 4299 May, [facility] [address] [place] [address] 97122- 1002 May, Right elbow pain M25.521 [facility] [id number] [place] [address] 43263- 3769 Apr, Reflex sympathetic dystrophy G90.50 and Encounter for immunization Z23 [facility] [id number] [place] [address] 12193- 6843 Apr, [facility] [id number] [place] [address] 75390- 7155 Mar, [facility] [id number] [place] [address] 27362- 2516 Feb, [facility] [id number] [place] [address] 51431- 5044 Feb, [facility] [id number] [place] [address] 13462- 0361 Jan, [facility] [id number] [place] [address] 73679- 1985 Jan, Right elbow pain M25.521 and Right wrist pain M25.531 [facility] [id number] [place] [address] 82981- 0025 Jan, [facility] [id number] [place] [address] 46013- 8754 Dec, Seborrheic keratoses L82.1 [facility] [id number] [place] [address] 81337- 1303 Dec, [facility] [id number] [place] [address] 87979- 7128 Dec, [facility] [id number] [place] [address] 06792- 8791 Dec, [facility] [id number] [place] [address] 99563- 8453 Dec, Fibromyalgia M79.7 and Hypothyroidism, unspecified type E03.9 [facility] [address] [address]- 9956 Dec, Seborrheic keratoses L82.1 [facility] [address] [place] [address]- 6148 Dec, [facility] [id number] [place] [address] 78239- 0598 Dec, [facility] [place] [id number] [place] [address] 17610- 9496 Nov, Sebaceous cyst L72.3 [facility] [place] [address] [place] [address] 61106- 5496 October, Breast cancer screening Z12.39 [facility] [id number] [place] [address] 61255- 9969 October, Fibromyalgia M79.7 ; Hypothyroidism, unspecified type E03.9 and Reflex sympathetic dystrophy G90.50 [place] [address] [address]- 0233 October, Reflex sympathetic dystrophy G90.50 ; Fibromyalgia M79.7 and Hypothyroidism, unspecified type E03.9 IMMUNIZATIONS No Known Immunizations SOCIAL HISTORY Never Assessed REASON FOR VISIT orphedrine correction PLAN OF CARE VITAL SIGNS MEDICATIONS Medication Instructions Dosage Frequency Start Date End Date Duration Status Orphenadrine Citrate ER 100 mg Orally twice a day 1 tablet 12h Active RESULTS No Results [...] Hospitalization History surgeries Hospitalization History Chest [facility] 1/13/17 Hospitalization History Chest Pain - [facility] 10/06/17
--- OUTSIDE RECORDS SUMMARY | 2018-03-07 17:52 | XMS REPORT ---
Author Author JOE BAI Organization [facility] Address [address] [place] [address] Care Team Providers Care Sign Writer Hand Name Role Phone JOE BAI Unavailable PROBLEMS Type Condition ICD9-CM Code KZO18-JS Code Onset Dates Condition Status SNOMED Code Problem Reactive depression F32.9 Active 70377135 Problem Plantar wart of right foot B07.0 Active 57195217 Problem Gastroesophageal reflux disease, esophagitis presence not specified K21.9 Active 342726359 Problem Internal derangement of right knee M23.91 Active 973531627816264 Problem Abnormal laboratory test R89.9 Active 214613939 Problem Mixed hyperlipidemia E78.2 Active 185816909 Problem Rosacea L71.9 Active 292529567 Problem Mild episode of recurrent major depressive disorder F33.0 Active 982069074 Problem Generalized anxiety disorder F41.1 Active 69311651 Problem Hypothyroidism, unspecified type E03.9 Active 99863103 Problem Right elbow pain M25.521 Active 62424636 Problem Right wrist pain M25.531 Active 96049134 Problem Reflex sympathetic dystrophy G90.50 Active 14384504 Problem Venous insufficiency I87.2 Active 32503445 Problem Fibromyalgia M79.7 Active 868226845 Problem Arthritis M19.90 Active 6512767 ALLERGIES No Information ENCOUNTERS Encounter Location Date Diagnosis [facility] [address], [place] [address] Feb, [facility] [id number] [place] [address] 66976- 8471 Jan, [facility] [id number] [place] [address] 68146- 5640 Jan, [facility] [address], [place] [address] 8476 Jan, [facility] [address], [place] [address] 9496 Jan, [facility] [id number] [place] [address] 62128- 6278 Jan, [facility] [address], [place] [address] 8331 Jan, Bronchitis J40 [facility] [id number] [place] [address] 88755- 4307 Dec, Mild episode of recurrent major depressive disorder F33.0 [facility] [id number] [place] [address] 33800- 3007 Dec, Generalized anxiety disorder F41.1 and Mild episode of recurrent major depressive disorder F33.0 [facility] [id number] [place] [address] 22751- 0197 Dec, Fibromyalgia M79.7 ; Arthritis M19.90 and Generalized anxiety disorder F41.1 [facility] [id number] [place] [address] 77471- 0083 Dec, Mild episode of recurrent major depressive disorder F33.0 and Generalized anxiety disorder F41.1 [facility] [id number] [place] [address] 01588- 0723 Dec, Fibromyalgia M79.7 [facility] [id number] [place] [address] 24185- 6294 Dec, Bronchitis J40 and Internal derangement of right knee M23.91 [facility] [address], [place] [address] Dec, Cough R05 [facility] [id number] [place] [address] 85050- 3126 Dec, Generalized anxiety disorder F41.1 and Mild episode of recurrent major depressive disorder F33.0 [facility] [address], [place] [address] 8910 Dec, [facility] [address], [place] [address] 08 Dec, 2017 [facility] [id number] [place] [address] 04146- 7980 Dec, Mild episode of recurrent major depressive disorder F33.0 and Generalized anxiety disorder F41.1 [facility] [address], [place] [address] 8072 30 Nov, 2017 [facility] [id number] [place] [address] 84584- 3188 Nov, [facility] [id number] [place] [address] 79992- 4562 Nov, [facility] [id number] [place] [address] 54808- 6293 Nov, Internal derangement of right knee M23.91 [facility] [id number] [place] [address] 17568- 3536 Nov, Generalized anxiety disorder F41.1 and Mild episode of recurrent major depressive disorder F33.0 [facility] [id number] [place] [address] 02566- 3724 Nov, Internal derangement of right knee M23.91 [facility] [address], [place] [address] Nov, Acute right ankle pain M25.571 ; Acute pain of right knee M25.561 ; Acute left-sided low back pain without sciatica M54.5 and Right leg pain M79.604 [facility] [address], [place] [address]- 1241 15 Nov, 2017 [facility] [id number] [place] [address] 07715- 5861 14 Nov, 2017 Fibromyalgia M79.7 [facility] [address], [place] [address]- 7118 13 Nov, 2017 Generalized anxiety disorder F41.1 and Mild episode of recurrent major depressive disorder F33.0 [facility] [id number] [place] [address] 76705- 9154 Nov, [facility] [id number] [place] [address] 88962- 2076 October, Generalized anxiety disorder F41.1 and Mild episode of recurrent major depressive disorder F33.0 [facility] [facility] [id number] [place] [address] 77341- 1655 October, Fibromyalgia M79.7 [facility] [id number] [place] [address] 07116- 4497 October, [place] [id number] [place] [address] 29883- 3262 October, Generalized anxiety disorder F41.1 and Mild episode of recurrent major depressive disorder F33.0 [place] [id number] [place] [address] 26263- 3724 October, [facility] [id number] [place] [address] 34716- 8330 Sep, Gastroesophageal reflux disease, esophagitis presence not specified K21.9 and Abnormal laboratory test R89.9 [place] [id number] [place] [address] 12109- 2983 Sep, Fibromyalgia M79.7 [facility] [id number] [place] [address] 41714- 6058 Sep, Generalized anxiety disorder F41.1 and Mild episode of recurrent major depressive disorder F33.0 [place] [id number] [place] [address] 62789- 5740 Sep, Epigastric pain R10.13 [place] [id number] [place] [address] 13326- 7313 Sep, Mild episode of recurrent major depressive disorder F33.0 and Generalized anxiety disorder F41.1 [place] [id number] [place] [address] 44881- 4982 Sep, Abnormal laboratory test R89.9 [facility] [id number] [place] [address] 19695- 5897 Sep, Generalized anxiety disorder F41.1 and Mild episode of recurrent major depressive disorder F33.0 [facility] [id number] [place] [address] 38173- 8554 29 Aug, 2017 Epigastric pain R10.13 and Encounter for therapeutic drug level monitoring Z51.81 [facility] [address] 47142 -2252 Aug, Epigastric pain R10.13 and Gastro-esophageal reflux disease without esophagitis K21.9 [place] [address] 26557- 0398 Aug, [facility] [address] 71561- 7734 Aug, Epigastric pain R10.13 [place] [id number] [place] [address] 94523- 8334 Aug, Fibromyalgia M79.7 [place] [address] 18477- 8865 14 Aug, 2017 [place] [id number] [place] [address] 30490- 5706 Aug, Generalized anxiety disorder F41.1 and Mild episode of recurrent major depressive disorder F33.0 [place] [id number] [place] [address] 28072- 3097 08 Aug, 2017 Epigastric pain R10.13 ; Reflex sympathetic dystrophy G90.50 and Arthritis M19.90 [place] [address] 89678- 2767 Jul, Generalized anxiety disorder F41.1 and Mild episode of recurrent major depressive disorder F33.0 [facility] [id number] [place] [address] 79817- 5010 Jul, BMI 40.0-44.9, adult Z68.41 ; Mild episode of recurrent major depressive disorder F33.0 and Generalized anxiety disorder F41.1 [facility] [id number] [place] [address] 52974 2546 Jul, Fibromyalgia M79.7 [facility] [id number] [place] [address] 45431 2546 Jun, Mild episode of recurrent major depressive disorder F33.0 and Generalized anxiety disorder F41.1 [facility] [id number] [place] [address] 53319 2546 Jun, Fibromyalgia M79.7 [facility] [id number] [place] [address] 17167 2546 Jun, Generalized anxiety disorder F41.1 and Mild episode of recurrent major depressive disorder F33.0 [facility] [id number] [place] [address] 98033 2546 Jun, Generalized anxiety disorder F41.1 and Mild episode of recurrent major depressive disorder F33.0 [facility] [id number] [place] [address] 72622 2546 Jun, Generalized anxiety disorder F41.1 and Mild episode of recurrent major depressive disorder F33.0 [facility] [id number] [place] [address] 87291 2546 Jun, [facility] [id number] [place] [address] 44397 2546 Jun, Generalized anxiety disorder F41.1 and Mild episode of recurrent major depressive disorder F33.0 [facility] [address] [place] [address] 79785 2546 May, Fibromyalgia M79.7 [facility] [id number] [place] [address] 38963 2546 May, Generalized anxiety disorder F41.1 and Mild episode of recurrent major depressive disorder F33.0 [facility] [id number] [place] [address] 11136- 0750 May, Mixed hyperlipidemia E78.2 ; Arthritis M19.90 ; Reactive depression F32.9 and Hypothyroidism, unspecified type E03.9 [facility] [address] 17563- 7513 May, Arthritis M19.90 ; Reactive depression F32.9 ; Mixed hyperlipidemia E78.2 and Hypothyroidism, unspecified type E03.9 [facility] [address] 11905- 4931 Apr, Fibromyalgia M79.7 [facility] [address] 09489- 4531 Apr, [facility] [address] 65239- 1891 Apr, Fibromyalgia M79.7 [facility] [address] 79217- 7684 Mar, Fibromyalgia M79.7 [facility] [address] 24568- 7804 Mar, [facility] [address] 08430- 8606 Mar, Fibromyalgia M79.7 [facility] [id number] [place] [address] 92321- 8068 Mar, [facility] [address] 44673- 2859 Feb, Reflex sympathetic dystrophy G90.50 ; Right arm pain M79.601 and Fibromyalgia M79.7 [facility] [id number] [place] [address] 39865- 6606 Feb, [facility] [address] 15518- 7983 Feb, Anxiety F41.9 [facility] [id number] [place] [address] 61685- 5046 Feb, Fibromyalgia M79.7 [facility] [id number] [place] [address] 43735- 3655 Feb, [facility] [address] 82231- 1109 Feb, [facility] [id number] [place] [address] 88435- 8409 Jan, Temporal headache R51 [facility] [address] 25577- 6412 Jan, Fibromyalgia M79.7 [facility] [id number] [place] [address] 15338- 2098 Dec, Fibromyalgia M79.7 [facility] [address] 12646- 3690 Nov, Peroneal tendonitis, unspecified laterality M76.70 and Plantar fasciitis, bilateral M72.2 [place] [address] 87946- 0624 Nov, Fibromyalgia M79.7 [facility] [id number] [place] [address] 05465- 7136 October, Fibromyalgia M79.7 [facility] [id number] [place] [address] 35432- 9626 October, Plantar fasciitis, bilateral M72.2 and Peroneal tendonitis, unspecified laterality M76.70 [facility] [id number] [place] [address] 63383- 0280 October, Fibromyalgia M79.7 [facility] [id number] [place] [address] 99261- 7266 Sep, Anxiety F41.9 [place] [address] 28589- 1770 Aug, Anxiety F41.9 and Adjustment disorder with anxiety F43.22 [place] [address] 37656- 5260 Aug, Pain of left foot M79.672 [place] [address] 67803- 6860 Aug, Pain of left foot M79.672 and Pain in right foot M79.671 [place] [address] 44326- 6368 Aug, Arthritis M19.90 ; Reactive depression F32.9 ; Fibromyalgia M79.7 ; Rosacea L71.9 ; Pain in right foot M79.671 and Pain of left foot M79.672 [place] [address] 86034- 0597 Aug, Anxiety F41.9 ; Adjustment disorder with anxiety F43.22 and Reactive depression F32.9 [place] [address] 45741- 9901 Aug, Right elbow pain M25.521 [place] [address] 06121- 4758 Aug, Plantar wart of right foot B07.0 and Actinic keratosis L57.0 [place] [address] 90415- 5402 Aug, Fibromyalgia M79.7 [place] [address] 66392- 6392 Jul, Arthritis M19.90 ; Hypothyroidism, unspecified type E03.9 ; Reactive depression F32.9 and Venous insufficiency I87.2 [place] [address] 46835- 3983 Jul, Gastroesophageal reflux disease, esophagitis presence not specified K21.9 [place] [address] 59283- 0740 Jul, Reflex sympathetic dystrophy G90.50 [place] [address] 97938- 4817 17 Jul, 2016 Anxiety F41.9 ; Adjustment disorder with anxiety F43.22 and Reactive depression F32.9 [facility] [address] 72623- 4780 15 Jul, 2016 [facility] [address] 90598- 6990 Jul, Right elbow pain M25.521 [facility] [address] 91054- 4606 Jun, Fibromyalgia M79.7 [place] [address] 31373- 9553 Jun, Anxiety F41.9 ; Adjustment disorder with anxiety F43.22 and Reactive depression F32.9 [place] [address] 55781- 9588 Jun, [place] [address] 19218- 9146 Jun, Atypical chest pain R07.89 and Adjustment disorder with anxiety F43.22 [place] [address] [id number] Jun, Chest pain, unspecified type R07.9 [place] [address] 39905- 2347 Jun, Fibromyalgia M79.7 [facility] [address] 29093- 5998 May, Anxiety F41.9 [facility] [address] 64147- 2795 May, [place] [address] 27058- 0718 May, Right elbow pain M25.521 [facility] [address] 56577- 8305 Apr, Reflex sympathetic dystrophy G90.50 and Encounter for immunization Z23 [facility] [address] [place] [address] 94225- 5828 Apr, [facility] [id number] [place] [address] 13941- 7833 Mar, [facility] [id number] [place] [address] 81830- 0911 Feb, [facility] [id number] [place] [address] 89650- 7077 Feb, [facility] [id number] [place] [address] 02577- 3254 Jan, [facility] [id number] [place] [address] 93646- 4869 Jan, Right elbow pain M25.521 and Right wrist pain M25.531 [facility] [id number] [place] [address] 55338- 2203 Jan, [facility] [id number] [place] [address] 32876- 6597 Dec, Seborrheic keratoses L82.1 [facility] [id number] [place] [address] 24365- 0725 Dec, [facility] [id number] [place] [address] 60449- 4979 Dec, [facility] [id number] [place] [address] 07703- 3550 Dec, [facility] [id number] [place] [address] 17450- 4803 Dec, Fibromyalgia M79.7 and Hypothyroidism, unspecified type E03.9 [facility] [id number] [place] [address] 21666- 5842 Dec, Seborrheic keratoses L82.1 [facility] [id number] [place] [address] 12492- 4196 Dec, [facility] [address] [facility] [id number] [address]- 4681 Dec, [facility] [address] [facility] [id number] [address]- 2386 Nov, Sebaceous cyst L72.3 [place] [address] [facility] [id number], [place] [address]- 5135 October, Breast cancer screening Z12.39 [place] [id number] [address]- 1691 October, Fibromyalgia M79.7 ; Hypothyroidism, unspecified type E03.9 and Reflex sympathetic dystrophy G90.50 [place] [address] [facility] [id number] [address]- 7732 October, Reflex sympathetic dystrophy G90.50 ; Fibromyalgia M79.7 and Hypothyroidism, unspecified type E03.9 IMMUNIZATIONS No Known Immunizations SOCIAL HISTORY Never Assessed REASON FOR VISIT Refill request PLAN OF CARE VITAL SIGNS MEDICATIONS Medication Instructions Dosage Frequency Start Date End Date Duration Status Levothyroxine Sodium 75 mcg TAKE ONE TABLET BY MOUTH ONCE DAILY 90 Active RESULTS No Results PROCEDURES No Known [...]
--- OUTSIDE RECORDS SUMMARY | 2018-03-07 17:53 | XMS REPORT ---
Author Author JOE BAI Organization [facility] Address [address] [place] [address] Care Team Providers Care Drapery Inspector Name Role Phone JOE BAI Unavailable PROBLEMS Type Condition ICD9-CM Code UIO62-OV Code Onset Dates Condition Status SNOMED Code Problem Reactive depression F32.9 Active 79514310 Problem Plantar wart of right foot B07.0 Active 98609465 Problem Gastroesophageal reflux disease, esophagitis presence not specified K21.9 Active 230268172 Problem Internal derangement of right knee M23.91 Active 199332532689461 Problem Abnormal laboratory test R89.9 Active 448399496 Problem Mixed hyperlipidemia E78.2 Active 354869237 Problem Rosacea L71.9 Active 489787793 Problem Mild episode of recurrent major depressive disorder F33.0 Active 805355128 Problem Generalized anxiety disorder F41.1 Active 58556194 Problem Hypothyroidism, unspecified type E03.9 Active 17837330 Problem Right elbow pain M25.521 Active 11412655 Problem Right wrist pain M25.531 Active 70598172 Problem Reflex sympathetic dystrophy G90.50 Active 41353938 Problem Venous insufficiency I87.2 Active 35075077 Problem Fibromyalgia M79.7 Active 996522560 Problem Arthritis M19.90 Active 8254496 ALLERGIES No Information ENCOUNTERS Encounter Location Date Diagnosis [facility] [id number] [address] Feb, [facility] [address] [place] [address] 91444- 8309 Jan, [facility] [address] [place] [address] 79070- 5303 Jan, [facility] [address], [place] [address] 29[address] Jan, [facility] [address], [place] [address] 2440 Jan, [facility] [id number] [place] [address] 97796- 9102 Jan, [facility] [id number] [place] [address] 42122- 4258 Dec, Mild episode of recurrent major depressive disorder F33.0 [facility] [id number] [place] [address] 63542- 0064 Dec, Generalized anxiety disorder F41.1 and Mild episode of recurrent major depressive disorder F33.0 [facility] [id number] [place] [address] 96869- 7858 Dec, Fibromyalgia M79.7 ; Arthritis M19.90 and Generalized anxiety disorder F41.1 [facility] [id number] [place] [address] 67054- 9204 Dec, Mild episode of recurrent major depressive disorder F33.0 and Generalized anxiety disorder F41.1 [facility] [id number] [place] [address] 44831- 8702 Dec, Fibromyalgia M79.7 [facility] [id number] [place] [address] 76313- 4489 Dec, Bronchitis J40 and Internal derangement of right knee M23.91 [facility] [address], [place] [address] Dec, Cough R05 [facility] [address] [place] [address] 04566- 1724 Dec, Generalized anxiety disorder F41.1 and Mild episode of recurrent major depressive disorder F33.0 [facility] [address], [place] [address] 7746 Dec, [facility] [address], [place] [address] Dec, [facility] [id number] [address] 9866 02 Dec, 2017 Mild episode of recurrent major depressive disorder F33.0 and Generalized anxiety disorder F41.1 [facility] [address], [place] [address] 4394 30 Nov, 2017 [facility] [address] [place] [address] 49101- 9983 Nov, [facility] [id number] [place] [address] 71231- 1326 Nov, [facility] [address] [place] [address] 09875- 9864 Nov, Internal derangement of right knee M23.91 [facility] [address] [place] [address] 76877- 6213 27 Nov, 2017 Generalized anxiety disorder F41.1 and Mild episode of recurrent major depressive disorder F33.0 [facility] [id number] [place] [address] 64958- 8668 Nov, Internal derangement of right knee M23.91 [facility] [address] [place] [address] 89536 -9236 19 Nov, 2017 Acute right ankle pain M25.571 ; Acute pain of right knee M25.561 ; Acute left-sided low back pain without sciatica M54.5 and Right leg pain M79.604 [facility] [address], [place] [address]- 7710 15 Nov, 2017 [facility] [address] [place] [address] 24845- 1560 14 Nov, 2017 Fibromyalgia M79.7 [facility] [id number] [place] [address] 17094- 2787 13 Nov, 2017 Generalized anxiety disorder F41.1 and Mild episode of recurrent major depressive disorder F33.0 [facility] [address] [place] [address] 52234- 8709 Nov, [facility] [address] [place] [address] 63299- 0365 October, Generalized anxiety disorder F41.1 and Mild episode of recurrent major depressive disorder F33.0 [facility] [id number] [place] [address] 27551- 0776 October, Fibromyalgia M79.7 [facility] [id number] [place] [address] 40163- 0536 October, [facility] [id number] [place] [address] 24286- 6148 October, Generalized anxiety disorder F41.1 and Mild episode of recurrent major depressive disorder F33.0 [facility] [id number] [place] [address] 01757- 3621 October, [facility] [id number] [place] [address] 03819- 6787 Sep, Gastroesophageal reflux disease, esophagitis presence not specified K21.9 and Abnormal laboratory test R89.9 [facility] [id number] [place] [address] 65691- 4473 Sep, Fibromyalgia M79.7 [facility] [id number] [place] [address] 24841- 4362 Sep, Generalized anxiety disorder F41.1 and Mild episode of recurrent major depressive disorder F33.0 [facility] [id number] [place] [address] 90534- 0576 Sep, Epigastric pain R10.13 [facility] [id number] [place] [address] 48407- 9034 Sep, Mild episode of recurrent major depressive disorder F33.0 and Generalized anxiety disorder F41.1 [facility] [id number] [place] [address] 06483- 6340 Sep, Abnormal laboratory test R89.9 [facility] [id number] [place] [address] 47568- 8004 Sep, Generalized anxiety disorder F41.1 and Mild episode of recurrent major depressive disorder F33.0 [facility] [id number] [place] [address] 75740- 9923 29 Aug, 2017 Epigastric pain R10.13 and Encounter for therapeutic drug level monitoring Z51.81 [facility] [id number] [place] [address] 46686 -0925 Aug, Epigastric pain R10.13 and Gastro-esophageal reflux disease without esophagitis K21.9 [facility] [address] 97239- 5055 Aug, [address] 53836- 6417 Aug, Epigastric pain R10.13 [address] [place] [address] 86404- 1406 Aug, Fibromyalgia M79.7 [facility] [address] 78230- 8729 14 Aug, 2017 [facility] [address] 23972- 9270 14 Aug, 2017 Generalized anxiety disorder F41.1 and Mild episode of recurrent major depressive disorder F33.0 [place] [id number] [place] [address] 56911- 9298 08 Aug, 2017 Epigastric pain R10.13 ; Reflex sympathetic dystrophy G90.50 and Arthritis M19.90 [facility] [id number] [place] [address] 91340- 1622 Jul, Generalized anxiety disorder F41.1 and Mild episode of recurrent major depressive disorder F33.0 [address] [place] [address] 51252- 3128 27 Jul, 2017 BMI 40.0-44.9, adult Z68.41 ; Mild episode of recurrent major depressive disorder F33.0 and Generalized anxiety disorder F41.1 [place] [address] [place] [address] 55362- 9652 Jul, Fibromyalgia M79.7 [facility] [id number] [place] [address] 09995- 7976 Jun, Mild episode of recurrent major depressive disorder F33.0 and Generalized anxiety disorder F41.1 [facility] [id number] [place] [address] 04930- 8256 Jun, Fibromyalgia M79.7 [facility] [id number] [place] [address] 25625- 3197 Jun, Generalized anxiety disorder F41.1 and Mild episode of recurrent major depressive disorder F33.0 [address] [place] [id number] [place] [address] 52714- 1415 Jun, Generalized anxiety disorder F41.1 and Mild episode of recurrent major depressive disorder F33.0 [address] [place] [id number] [place] [address] 84638- 5827 Jun, Generalized anxiety disorder F41.1 and Mild episode of recurrent major depressive disorder F33.0 [address] [place] [id number] [place] [address] 19247- 2887 Jun, [facility] [id number] [place] [address] 14845- 0815 Jun, Generalized anxiety disorder F41.1 and Mild episode of recurrent major depressive disorder F33.0 [address] [place] [address] [place] [address] 11784- 7142 May, Fibromyalgia M79.7 [facility] [address] [place] [address] 17301- 4446 May, Generalized anxiety disorder F41.1 and Mild episode of recurrent major depressive disorder F33.0 [facility] [address] [place] [address] 85480- 9596 May, Mixed hyperlipidemia E78.2 ; Arthritis M19.90 ; Reactive depression F32.9 and Hypothyroidism, unspecified type E03.9 [facility] [id number] [place] [address] 13605- 3298 May, Arthritis M19.90 ; Reactive depression F32.9 ; Mixed hyperlipidemia E78.2 and Hypothyroidism, unspecified type E03.9 [facility] [id number] [place] [address] 47405- 7278 Apr, Fibromyalgia M79.7 [facility] [address] 59716- 3076 Apr, [facility] [address] 49629- 3026 Apr, Fibromyalgia M79.7 [facility] [address] 99501- 7463 Mar, Fibromyalgia M79.7 [facility] [id number] [place] [address] 56012- 8369 Mar, [facility] [address] 93987- 4923 Mar, Fibromyalgia M79.7 [facility] [address] 42630- 9012 Mar, [facility] [id number] [place] [address] 84772- 2543 Feb, Reflex sympathetic dystrophy G90.50 ; Right arm pain M79.601 and Fibromyalgia M79.7 [facility] [id number] [place] [address] 96275 2541 Feb, [facility] [id number] [place] [address] 65926- 2543 Feb, Anxiety F41.9 [facility] [id number] [place] [address] 01655- 2541 06 Feb, 2017 Fibromyalgia M79.7 [facility] [id number] [place] [address] 81077 2546 05 Feb, 2017 [facility] [id number] [place] [address] 64608- 8527 Feb, [facility] [id number] [place] [address] 11484- 0701 Jan, Temporal headache R51 [facility] [id number] [place] [address] 72191- 3524 Jan, Fibromyalgia M79.7 [facility] [address] 34055- 3531 Dec, Fibromyalgia M79.7 [facility] [id number] [place] [address] 53942- 0304 Nov, Peroneal tendonitis, unspecified laterality M76.70 and Plantar fasciitis, bilateral M72.2 [address] [place] [id number] [place] [address] 28977- 1862 Nov, Fibromyalgia M79.7 [facility] [id number] [place] [address] 05684- 9279 October, Fibromyalgia M79.7 [facility] [id number] [place] [address] 94550- 8484 October, Plantar fasciitis, bilateral M72.2 and Peroneal tendonitis, unspecified laterality M76.70 [facility] [id number] [place] [address] 33538- 2755 October, Fibromyalgia M79.7 [facility] [id number] [place] [address] 90744- 4839 Sep, Anxiety F41.9 [facility] [id number] [place] [address] 15215- 6550 Aug, Anxiety F41.9 and Adjustment disorder with anxiety F43.22 [facility] [id number] [place] [address] 69385- 2251 Aug, Pain of left foot M79.672 [facility] [address] [place] [address] [address]- 2010 Aug, Pain of left foot M79.672 and Pain in right foot M79.671 [address] [place] [address] 86551- 6443 Aug, Arthritis M19.90 ; Reactive depression F32.9 ; Fibromyalgia M79.7 ; Rosacea L71.9 ; Pain in right foot M79.671 and Pain of left foot M79.672 [address] 76625- 2210 Aug, Anxiety F41.9 ; Adjustment disorder with anxiety F43.22 and Reactive depression F32.9 [address] [place] [address] 73905- 7300 Aug, Right elbow pain M25.521 [address] [place] [address] 44435- 2568 Aug, Plantar wart of right foot B07.0 and Actinic keratosis L57.0 [address] [place] [address] 48742- 4275 Aug, Fibromyalgia M79.7 [place] [address] 28689- 6890 Jul, Arthritis M19.90 ; Hypothyroidism, unspecified type E03.9 ; Reactive depression F32.9 and Venous insufficiency I87.2 [place] [address] 47722- 9479 Jul, Gastroesophageal reflux disease, esophagitis presence not specified K21.9 [place] [address] 99154- 5338 Jul, Reflex sympathetic dystrophy G90.50 [address] [place] [address] 26409- 5112 Jul, Anxiety F41.9 ; Adjustment disorder with anxiety F43.22 and Reactive depression F32.9 [place] [id number] [place] [address] 72123- 4589 15 Jul, 2016 [facility] [address] 44234- 4911 03 Jul, 2016 Right elbow pain M25.521 [facility] [address] 70775- 1984 Jun, Fibromyalgia M79.7 [facility] [address] 29612- 0708 Jun, Anxiety F41.9 ; Adjustment disorder with anxiety F43.22 and Reactive depression F32.9 [place] [address] 62880- 1062 Jun, [place] [address] 70316- 4116 Jun, Atypical chest pain R07.89 and Adjustment disorder with anxiety F43.22 [facility] [address] [id number] Jun, Chest pain, unspecified type R07.9 [place] [address] 70573- 9135 Jun, Fibromyalgia M79.7 [place] [address] 56404- 1170 May, Anxiety F41.9 [facility] [address] 13478- 2553 14 May, 2016 [facility] [address] 23912- 3717 May, Right elbow pain M25.521 [place] [address] 19646- 8211 Apr, Reflex sympathetic dystrophy G90.50 and Encounter for immunization Z23 [place] [address] 91070- 5719 Apr, [facility] [address], [place] [address]- 8184 Mar, [facility] [id number] [place] [address] 21679- 8921 Feb, [facility] [address], [place] [address]- 9122 Feb, [facility] [id number] [place] [address] 58316- 3768 Jan, [facility] [address] [place] [address] 78127- 7788 Jan, Right elbow pain M25.521 and Right wrist pain M25.531 [facility] [id number] [place] [address] 85448- 4213 Jan, [facility] [id number] [place] [address] 01861- 8156 Dec, Seborrheic keratoses L82.1 [facility] [id number] [place] [address] 82303- 3486 Dec, [facility] [id number] [place] [address] 91706- 8290 Dec, [facility] [address], [place] [address]- 6437 Dec, [facility] [address] [place] [address] 46966- 9952 Dec, Fibromyalgia M79.7 and Hypothyroidism, unspecified type E03.9 [facility] [address], [place] [address]- 8627 Dec, Seborrheic keratoses L82.1 [facility] [address], [place] [address]- 7274 Dec, [facility] [id number] [place] [address] 02193- 3974 Dec, [facility] [address] [facility] [id number] [place] [address]- 6652 Nov, Sebaceous cyst L72.3 [place] [address] [facility] [id number] [address]- 8317 October, Breast cancer screening Z12.39 [place] [address] [facility] [id number] [address]- 6444 October, Fibromyalgia M79.7 ; Hypothyroidism, unspecified type E03.9 and Reflex sympathetic dystrophy G90.50 [place] [address] [facility] [id number] [address]- 2829 October, Reflex sympathetic dystrophy G90.50 ; Fibromyalgia M79.7 and Hypothyroidism, unspecified type E03.9 IMMUNIZATIONS No Known Immunizations SOCIAL HISTORY Never Assessed REASON FOR VISIT Hydrocodone 10/07 PLAN OF CARE VITAL SIGNS MEDICATIONS Medication Instructions Dosage Frequency Start Date End Date Duration Status Hydrocodone-Acetaminophen 7.5-325 MG Orally 3 times a day 1 tablet 8h Sep, 28 days Active RESULTS No Results PROCEDURES [...]
--- OUTSIDE RECORDS SUMMARY | 2018-03-07 17:53 | XMS REPORT ---
Author Author JOE BAI [facility] Address [address] [place] [address] Care Team Providers Care Nurse Obgyn Name Role Phone JOE BAI Unavailable PROBLEMS Type Condition ICD9-CM Code RLI00-AR Code Onset Dates Condition Status SNOMED Code Problem Reactive depression F32.9 Active 64556578 Problem Plantar wart of right foot B07.0 Active 78377082 Problem Gastroesophageal reflux disease, esophagitis presence not specified K21.9 Active 380134829 Problem Internal derangement of right knee M23.91 Active 788040050105874 Problem Abnormal laboratory test R89.9 Active 069531736 Problem Mixed hyperlipidemia E78.2 Active 397672435 Problem Rosacea L71.9 Active 617999099 Problem Mild episode of recurrent major depressive disorder F33.0 Active 042580427 Problem Generalized anxiety disorder F41.1 Active 70183507 Problem Hypothyroidism, unspecified type E03.9 Active 04669019 Problem Right elbow pain M25.521 Active 35801538 Problem Right wrist pain M25.531 Active 52139340 Problem Reflex sympathetic dystrophy G90.50 Active 51968636 Problem Venous insufficiency I87.2 Active 22430003 Problem Fibromyalgia M79.7 Active 076305383 Problem Arthritis M19.90 Active 7605417 ALLERGIES Substance Reaction Event Type Date Status Robaxin Unknown Drug Allergy Sep, Active Penicillin V Potassium Unknown Drug Allergy Sep, Active Demerol Unknown Drug Allergy Sep, Active Codeine Sulfate Unknown Drug Allergy Sep, Active ENCOUNTERS Encounter Location Date Diagnosis [facility] [address] [facility] [id number] [address] Feb, [facility] [address] [facility] [id number], [place] [address] Jan, [facility] [address] [id number] [address] Jan, [facility] [id number] [place] [address] 33270- 5543 Jan, [facility] [id number] [place] [address] 35958- 3891 Jan, [facility] [id number] [place] [address] 52155- 4844 Jan, [facility] [id number] [place] [address] 93386- 7379 Jan, Bronchitis J40 [facility] [id number] [place] [address] 80883- 2259 Dec, Mild episode of recurrent major depressive disorder F33.0 [facility] [id number] [place] [address] 36155- 0060 Dec, Generalized anxiety disorder F41.1 and Mild episode of recurrent major depressive disorder F33.0 [facility] [id number] [place] [address] 32311- 1976 Dec, Fibromyalgia M79.7 ; Arthritis M19.90 and Generalized anxiety disorder F41.1 [place] [id number] [place] [address] 67330- 8604 Dec, Mild episode of recurrent major depressive disorder F33.0 and Generalized anxiety disorder F41.1 [facility] [id number] [place] [address] 28143- 5323 Dec, Fibromyalgia M79.7 [facility] [id number] [place] [address] 99370- 8016 Dec, Bronchitis J40 and Internal derangement of right knee M23.91 [facility] [id number] [place] [address] 62681 -3170 Dec, Cough R05 [facility] [id number] [place] [address] 00008- 7596 Dec, Generalized anxiety disorder F41.1 and Mild episode of recurrent major depressive disorder F33.0 [facility] [address] [id number] [address] 46[address] Dec, [facility] [address] [address] Dec, [facility] [address] [address] 7825 Dec, Mild episode of recurrent major depressive disorder F33.0 and Generalized anxiety disorder F41.1 [facility] [address] [address] 5[address] Nov, [facility] [id number] [place] [address] 64204- 4368 Nov, [facility] [id number] [place] [address] 65518- 8957 Nov, [facility] [id number] [place] [address] 14047- 0097 Nov, Internal derangement of right knee M23.91 [facility] [id number] [place] [address] 01318- 8139 Nov, Generalized anxiety disorder F41.1 and Mild episode of recurrent major depressive disorder F33.0 [facility] [address] [address] 8[address] Nov, Internal derangement of right knee M23.91 [facility] [address] [address] Nov, Acute right ankle pain M25.571 ; Acute pain of right knee M25.561 ; Acute left-sided low back pain without sciatica M54.5 and Right leg pain M79.604 [facility] [address] [address] 15 Nov, 2017 [facility] [address] [id number] [address] 9975 14 Nov, 2017 Fibromyalgia M79.7 [facility] [address] [address] 2080 Nov, Generalized anxiety disorder F41.1 and Mild episode of recurrent major depressive disorder F33.0 [facility] [id number] [place] [address] 43577- 5946 Nov, [facility] [id number] [place] [address] 06896- 6416 October, Generalized anxiety disorder F41.1 and Mild episode of recurrent major depressive disorder F33.0 [facility] [id number] [place] [address] 43779- 7165 October, Fibromyalgia M79.7 [facility] [id number] [place] [address] 08281- 0676 October, [facility] [id number] [place] [address] 60875- 4404 October, Generalized anxiety disorder F41.1 and Mild episode of recurrent major depressive disorder F33.0 [facility] [id number] [place] [address] 27821- 5854 October, [facility] [id number] [place] [address] 06582- 5844 Sep, Gastroesophageal reflux disease, esophagitis presence not specified K21.9 and Abnormal laboratory test R89.9 [facility] [id number] [place] [address] 35938- 7897 Sep, Fibromyalgia M79.7 [facility] [id number] [place] [address] 67841- 4857 Sep, Generalized anxiety disorder F41.1 and Mild episode of recurrent major depressive disorder F33.0 [facility] [id number] [place] [address] 27913- 3603 Sep, Epigastric pain R10.13 [facility] [id number] [place] [address] 80963- 5511 Sep, Mild episode of recurrent major depressive disorder F33.0 and Generalized anxiety disorder F41.1 [facility] [id number] [place] [address] 07213- 7759 Sep, Abnormal laboratory test R89.9 [facility] [id number] [place] [address] 13133- 9597 Sep, Generalized anxiety disorder F41.1 and Mild episode of recurrent major depressive disorder F33.0 [facility] [id number] [place] [address] 26302- 4640 Aug, Epigastric pain R10.13 and Encounter for therapeutic drug level monitoring Z51.81 [facility] [address] [address] Aug, Epigastric pain R10.13 and Gastro-esophageal reflux disease without esophagitis K21.9 [place] [address] 80661- 0163 Aug, [facility] [id number] [place] [address] 10798- 2300 Aug, Epigastric pain R10.13 [place] [address] 16155- 8084 20 Aug, 2017 Fibromyalgia M79.7 [place] [id number] [place] [address] 39473- 0985 Aug, [facility] [id number] [place] [address] 35128- 7671 Aug, Generalized anxiety disorder F41.1 and Mild episode of recurrent major depressive disorder F33.0 [place] [id number] [place] [address] 51755- 1475 08 Aug, 2017 Epigastric pain R10.13 ; Reflex sympathetic dystrophy G90.50 and Arthritis M19.90 [facility] [id number] [place] [address] 73680- 4662 Jul, Generalized anxiety disorder F41.1 and Mild episode of recurrent major depressive disorder F33.0 [facility] [address] [address] 2546 Jul, BMI 40.0-44.9, adult Z68.41 ; Mild episode of recurrent major depressive disorder F33.0 and Generalized anxiety disorder F41.1 [facility] [address], [place] [address] 2546 Jul, Fibromyalgia M79.7 [facility] [id number] [place] [address] 64643 2546 Jun, Mild episode of recurrent major depressive disorder F33.0 and Generalized anxiety disorder F41.1 [facility] [id number] [place] [address] 20946 2546 Jun, Fibromyalgia M79.7 [facility] [address] [id number] [address]- 5846 Jun, Generalized anxiety disorder F41.1 and Mild episode of recurrent major depressive disorder F33.0 [facility] [id number] [place] [address] 54439 2541 Jun, Generalized anxiety disorder F41.1 and Mild episode of recurrent major depressive disorder F33.0 [facility] [id number] [place] [address] 35827 2546 Jun, Generalized anxiety disorder F41.1 and Mild episode of recurrent major depressive disorder F33.0 [facility] [id number] [place] [address] 73215 2546 Jun, [facility] [address] [address] 2546 Jun, Generalized anxiety disorder F41.1 and Mild episode of recurrent major depressive disorder F33.0 [facility] [address] [address] 2546 May, Fibromyalgia M79.7 [facility] [id number] [place] [address] 98678- 6930 May, Generalized anxiety disorder F41.1 and Mild episode of recurrent major depressive disorder F33.0 [facility] [id number] [place] [address] 29021- 6096 May, Mixed hyperlipidemia E78.2 ; Arthritis M19.90 ; Reactive depression F32.9 and Hypothyroidism, unspecified type E03.9 [facility] [address] 39999- 4627 May, Arthritis M19.90 ; Reactive depression F32.9 ; Mixed hyperlipidemia E78.2 and Hypothyroidism, unspecified type E03.9 [facility] [address] 63683- 9223 Apr, Fibromyalgia M79.7 [facility] [address] 40072- 1855 Apr, [facility] [address] 29243- 6427 Apr, Fibromyalgia M79.7 [facility] [address] 40485- 8544 Mar, Fibromyalgia M79.7 [facility] [address] 15255- 7219 Mar, [facility] [address] 24297- 8293 Mar, Fibromyalgia M79.7 [facility] [address] 56179- 8313 Mar, [facility] [id number] [place] [address] 60671- 0451 Feb, Reflex sympathetic dystrophy G90.50 ; Right arm pain M79.601 and Fibromyalgia M79.7 [facility] [id number] [place] [address] 73886- 0912 Feb, [facility] [address] 99410- 1668 Feb, Anxiety F41.9 [facility] [id number] [place] [address] 46722- 5922 Feb, Fibromyalgia M79.7 [facility] [id number] [place] [address] 05979- 0953 Feb, [facility] [address] 77194- 2157 Feb, [facility] [address] 73380- 8080 Jan, Temporal headache R51 [facility] [address] 69488- 3517 Jan, Fibromyalgia M79.7 [facility] [address] 06658- 8204 Dec, Fibromyalgia M79.7 [facility] [address] 80473- 2180 Nov, Peroneal tendonitis, unspecified laterality M76.70 and Plantar fasciitis, bilateral M72.2 [facility] [address] 21615- 4805 Nov, Fibromyalgia M79.7 [facility] [id number] [place] [address] 07498- 4318 October, Fibromyalgia M79.7 [facility] [id number] [place] [address] 56908- 8710 October, Plantar fasciitis, bilateral M72.2 and Peroneal tendonitis, unspecified laterality M76.70 [facility] [address] 56196- 2097 October, Fibromyalgia M79.7 [facility] [id number] [place] [address] 79544- 5680 Sep, Anxiety F41.9 [facility] [address] 56375- 1756 Aug, Anxiety F41.9 and Adjustment disorder with anxiety F43.22 [place] [address] 57823- 9192 Aug, Pain of left foot M79.672 [place] [id number] [place] [address] 23793- 5694 Aug, Pain of left foot M79.672 and Pain in right foot M79.671 [place] [address] 95284- 6164 Aug, Arthritis M19.90 ; Reactive depression F32.9 ; Fibromyalgia M79.7 ; Rosacea L71.9 ; Pain in right foot M79.671 and Pain of left foot M79.672 [place] [address] 68762- 1367 Aug, Anxiety F41.9 ; Adjustment disorder with anxiety F43.22 and Reactive depression F32.9 [place] [address] 71360- 2153 Aug, Right elbow pain M25.521 [place] [address] 72174- 5832 Aug, Plantar wart of right foot B07.0 and Actinic keratosis L57.0 [place] [id number] [place] [address] 95063- 0328 Aug, Fibromyalgia M79.7 [place] [id number] [place] [address] 61645- 3675 Jul, Arthritis M19.90 ; Hypothyroidism, unspecified type E03.9 ; Reactive depression F32.9 and Venous insufficiency I87.2 [place] [id number] [place] [address] 38307- 3716 Jul, Gastroesophageal reflux disease, esophagitis presence not specified K21.9 [place] [address] [place] [address]- 7794 Jul, Reflex sympathetic dystrophy G90.50 [facility] [address] 91903- 2669 17 Jul, 2016 Anxiety F41.9 ; Adjustment disorder with anxiety F43.22 and Reactive depression F32.9 [place] [address] 90595- 8337 15 Jul, 2016 [facility] [address] 80202- 7125 Jul, Right elbow pain M25.521 [place] [address] 64070- 6278 Jun, Fibromyalgia M79.7 [place] [address] 63438- 8865 Jun, Anxiety F41.9 ; Adjustment disorder with anxiety F43.22 and Reactive depression F32.9 [place] [address] 90255- 7184 Jun, [place] [address] 22223- 0513 Jun, Atypical chest pain R07.89 and Adjustment disorder with anxiety F43.22 [facility] [address] [id number] Jun, Chest pain, unspecified type R07.9 [facility] [address] 32906- 1707 Jun, Fibromyalgia M79.7 [facility] [address] 35736- 4143 May, Anxiety F41.9 [facility] [address] 56211- 7649 14 May, 2016 [facility] [address] 07123- 0577 May, Right elbow pain M25.521 [facility] [id number] [place] [address] 12817- 8120 Apr, Reflex sympathetic dystrophy G90.50 and Encounter for immunization Z23 [facility] [address] 24780- 0668 Apr, [facility] [address] 72225- 4470 Mar, [facility] [address] 51280- 8955 Feb, [facility] [address] 65590- 2624 Feb, [facility] [address] 67010- 6050 Jan, [facility] [address] 41832- 2308 Jan, Right elbow pain M25.521 and Right wrist pain M25.531 [facility] [address] 61234- 2388 Jan, [facility] [address] 15346- 8901 Dec, Seborrheic keratoses L82.1 [facility] [address] 50497- 1701 Dec, [facility] [id number] [place] [address] 18873- 1148 Dec, [facility] [address] 26170- 5231 Dec, [facility] [address] 64539- 1891 Dec, Fibromyalgia M79.7 and Hypothyroidism, unspecified type E03.9 [facility] [address] 13213- 1312 Dec, Seborrheic keratoses L82.1 [place] [address] [place] [address] 32676- 0674 Dec, [place] [id number] [place] [address] 16845575- 9388 Dec, [place] [id number] [place] [address] 55410- 8428 Nov, Sebaceous cyst L72.3 [place] [id number] [place] [address] 52183- 4482 October, Breast cancer screening Z12.39 [place] [id number] [place] [address] 21395- 9084 October, Fibromyalgia M79.7 ; Hypothyroidism, unspecified type E03.9 and Reflex sympathetic dystrophy G90.50 [place] [address] [place] [address] 36485- 2070 October, Reflex sympathetic dystrophy G90.50 ; Fibromyalgia M79.7 and Hypothyroidism, unspecified type E03.9 IMMUNIZATIONS No Known Immunizations SOCIAL HISTORY Never Assessed REASON FOR VISIT [facility] follow up -[facility] [facility] Activity Details Follow Up Will call after lab for CRP Reason: VITAL SIGNS Height 62 in 2017-10-11 Weight 218 lbs 2017-10-11 Temperature 98.2 degrees Fahrenheit 2017-10-11 Heart Rate 84 bpm 2017-10-11 Respiratory Rate 20 2017-10-11 BMI 39.87 kg/m2 2017-10-11 Blood pressure systolic 138 mmHg 2017-10-11 Blood pressure diastolic 86 mmHg 2017-10-11 MEDICATIONS Medication Instructions Dosage Frequency Start Date End Date Duration Status Excedrin Migraine 250-250-65 MG Orally every 6 hrs 2 tablets as needed 6h Active Levothyroxine Sodium 75MCG TAKE ONE TABLET BY MOUTH ONCE DAILY 90 Active Carafate 1 GM Orally 4 times a day 1 tablet 6h Aug, October, 30 days Active Hydrocodone-Acetaminophen 7.5-325 MG Orally 3 times a day 1 tablet 8h Sep, 28 days Active Fiorinal 50-325-40 MG Orally every 4 hrs 1 capsule as needed 4h 11 Jan, 2017 Active Orphenadrine Citrate ER 100 mg Orally Once a day 1 tablet 24h Active Trintellix 5 MG Orally Once a day 1 tablet 24h Jun, 30 days Active Topiramate 200MG Orally twice a day 1 tablet 12h 30 Active HydrOXYzine HCl 10 MG Orally three times a day as needed for anxiety and sleep 1 tablet May, Active Pantoprazole Sodium 40MG Orally Once a day 1 tablet 24h Active RESULTS No Results PROCEDURES Procedure Date Ordered Result Body Site [facility] VISIT ESTABLISHED PATIENT October 11, 2017 TARA, ROUTINE* October 11, 2017 LAB [facility] October 11, 2017 INSTRUCTIONS MEDICATIONS ADMINISTERED No Known Medications [...]
--- OUTSIDE RECORDS SUMMARY | 2018-03-07 17:54 | XMS REPORT ---
Author Author FRANK CHAPMAN Organization [facility] Address [address] [place] [address] Care Team Providers Care Quality Control Manager Name Role Phone FRANK CHAPMAN Unavailable PROBLEMS Type Condition ICD9-CM Code SIF87-BZ Code Onset Dates Condition Status SNOMED Code Problem Reactive depression F32.9 Active 10506233 Problem Plantar wart of right foot B07.0 Active 35335908 Problem Gastroesophageal reflux disease, esophagitis presence not specified K21.9 Active 098684090 Problem Internal derangement of right knee M23.91 Active [id number] Problem Abnormal laboratory test R89.9 Active 080746016 Problem Mixed hyperlipidemia E78.2 Active 864471857 Problem Rosacea L71.9 Active 194225919 Problem Mild episode of recurrent major depressive disorder F33.0 Active 626785137 Problem Generalized anxiety disorder F41.1 Active 13089797 Problem Hypothyroidism, unspecified type E03.9 Active 45097795 Problem Right elbow pain M25.521 Active 53934868 Problem Right wrist pain M25.531 Active 78070858 Problem Reflex sympathetic dystrophy G90.50 Active 73116677 Problem Venous insufficiency I87.2 Active 25423433 Problem Fibromyalgia M79.7 Active 678429214 Problem Arthritis M19.90 Active 4145491 ALLERGIES No Information ENCOUNTERS Encounter Location Date Diagnosis [facility] [id number], [place] [address] Feb, [facility] [address], [place] [address] Jan, [facility] [address], [place] [address] Jan, [facility] [id number], [place] [address] 18[address] Jan, [facility] [id number] [address] Jan, [facility] [id number] [place] [address] 40365- 8995 Jan, [facility] [id number] [place] [address] 82173- 6356 Dec, Mild episode of recurrent major depressive disorder F33.0 [facility] [id number] [place] [address] 99428- 9988 Dec, Generalized anxiety disorder F41.1 and Mild episode of recurrent major depressive disorder F33.0 [facility] [id number] [place] [address] 08569- 7157 Dec, Fibromyalgia M79.7 ; Arthritis M19.90 and Generalized anxiety disorder F41.1 [place] [id number] [place] [address] 36804- 7802 Dec, Mild episode of recurrent major depressive disorder F33.0 and Generalized anxiety disorder F41.1 [facility] [id number] [place] [address] 12161- 1566 Dec, Fibromyalgia M79.7 [facility] [id number] [place] [address] 59387- 5566 Dec, Bronchitis J40 and Internal derangement of right knee M23.91 [facility] [id number] [place] [address] 86291 -1242 Dec, Cough R05 [facility] [id number] [place] [address] 71327- 4039 Dec, Generalized anxiety disorder F41.1 and Mild episode of recurrent major depressive disorder F33.0 [facility] [id number] [place] [address] 58992- 8235 Dec, [facility] [id number] [place] [address] 84836 -7544 Dec, [facility] [id number] [address] 2[address] 02 Dec, 2017 Mild episode of recurrent major depressive disorder F33.0 and Generalized anxiety disorder F41.1 [facility] [id number] [place] [address] 80670- 7296 30 Nov, 2017 [facility] [id number] [place] [address] 64745- 8508 Nov, [facility] [id number] [place] [address] 87271- 5675 Nov, [facility] [id number] [place] [address] 14980- 8003 Nov, Internal derangement of right knee M23.91 [facility] [id number] [place] [address] 86928- 9889 Nov, Generalized anxiety disorder F41.1 and Mild episode of recurrent major depressive disorder F33.0 [facility] [facility] [id number] [place] [address] 08181- 4162 Nov, Internal derangement of right knee M23.[address] [facility] [id number] [place] [address] 39814 -1008 19 Nov, 2017 Acute right ankle pain M25.571 ; Acute pain of right knee M25.561 ; Acute left-sided low back pain without sciatica M54.5 and Right leg pain M79.604 [place] [facility] [id number] [place] [address] 73652- 5136 15 Nov, 2017 [facility] [id number] [place] [address] 38432- 9446 14 Nov, 2017 Fibromyalgia M79.7 [place] [id number] [place] [address] 85465- 3512 13 Nov, 2017 Generalized anxiety disorder F41.1 and Mild episode of recurrent major depressive disorder F33.0 [facility] [id number] [place] [address] 09365- 3759 11 Nov, 2017 [place] [id number] [place] [address] 01630- 0730 October, Generalized anxiety disorder F41.1 and Mild episode of recurrent major depressive disorder F33.0 [facility] [id number] [place] [address] 25021- 0595 October, Fibromyalgia M79.7 [facility] [id number] [place] [address] 78691- 5209 October, [facility] [id number] [place] [address] 73343- 2507 October, Generalized anxiety disorder F41.1 and Mild episode of recurrent major depressive disorder F33.0 [place] [id number] [place] [address] 24941- 9389 October, [facility] [id number] [place] [address] 96474- 8223 Sep, Gastroesophageal reflux disease, esophagitis presence not specified K21.9 and Abnormal laboratory test R89.9 [place] [id number] [place] [address] 86642- 0435 Sep, Fibromyalgia M79.7 [facility] [id number] [place] [address] 08493- 2210 Sep, Generalized anxiety disorder F41.1 and Mild episode of recurrent major depressive disorder F33.0 [facility] [facility] [id number] [place] [address] 58290- 5299 Sep, Epigastric pain R10.13 [place] [id number] [place] [address] 61192- 7818 10 Sep, 2017 Mild episode of recurrent major depressive disorder F33.0 and Generalized anxiety disorder F41.1 [facility] [id number] [place] [address] 54971- 7047 Sep, Abnormal laboratory test R89.9 [place] [id number] [place] [address] 73638- 6271 Sep, Generalized anxiety disorder F41.1 and Mild episode of recurrent major depressive disorder F33.0 [facility] [id number] [place] [address] 46753- 3599 29 Aug, 2017 Epigastric pain R10.13 and Encounter for therapeutic drug level monitoring Z51.[address] [facility] [id number] [place] [address] 82853 -2501 Aug, Epigastric pain R10.13 and Gastro-esophageal reflux disease without esophagitis K21.9 [facility] [id number] [place] [address] 66795- 5640 Aug, [facility] [address] 07309- 1088 Aug, Epigastric pain R10.13 [place] [address] 44812- 6553 Aug, Fibromyalgia M79.7 [facility] [id number] [place] [address] 19971- 6760 14 Aug, 2017 [facility] [id number] [place] [address] 75138- 2349 14 Aug, 2017 Generalized anxiety disorder F41.1 and Mild episode of recurrent major depressive disorder F33.0 [place] [id number] [place] [address] 02808- 9164 08 Aug, 2017 Epigastric pain R10.13 ; Reflex sympathetic dystrophy G90.50 and Arthritis M19.90 [facility] [id number] [place] [address] 43666- 5385 Jul, Generalized anxiety disorder F41.1 and Mild episode of recurrent major depressive disorder F33.0 [place] [id number] [place] [address] 05757- 5505 Jul, BMI 40.0-44.9, adult Z68.41 ; Mild episode of recurrent major depressive disorder F33.0 and Generalized anxiety disorder F41.1 [place] [address] [place] [address]- 4296 Jul, Fibromyalgia M79.7 [facility] [id number] [place] [address] 83430- 1296 Jun, Mild episode of recurrent major depressive disorder F33.0 and Generalized anxiety disorder F41.1 [facility] [id number] [place] [address] 76722- 1046 Jun, Fibromyalgia M79.7 [facility] [id number] [place] [address] 06790- 7675 Jun, Generalized anxiety disorder F41.1 and Mild episode of recurrent major depressive disorder F33.0 [place] [id number] [place] [address] 79383- 2916 Jun, Generalized anxiety disorder F41.1 and Mild episode of recurrent major depressive disorder F33.0 [facility] [id number] [place] [address] 93092- 2336 Jun, Generalized anxiety disorder F41.1 and Mild episode of recurrent major depressive disorder F33.0 [facility] [id number] [place] [address] 01327- 9804 Jun, [facility] [id number] [place] [address] 50331- 1965 Jun, Generalized anxiety disorder F41.1 and Mild episode of recurrent major depressive disorder F33.0 [facility] [id number] [place] [address] 00378- 5666 May, Fibromyalgia M79.7 [facility] [id number] [place] [address] 10763- 8226 May, Generalized anxiety disorder F41.1 and Mild episode of recurrent major depressive disorder F33.0 [facility] [id number] [place] [address] 44678- 6786 May, Mixed hyperlipidemia E78.2 ; Arthritis M19.90 ; Reactive depression F32.9 and Hypothyroidism, unspecified type E03.9 [facility] [id number] [place] [address] 56881- 1189 May, Arthritis M19.90 ; Reactive depression F32.9 ; Mixed hyperlipidemia E78.2 and Hypothyroidism, unspecified type E03.9 [facility] [id number] [place] [address] 18192- 4689 Apr, Fibromyalgia M79.7 [facility] [address] 73949- 5516 Apr, [facility] [address] 33652- 8931 Apr, Fibromyalgia M79.7 [facility] [address] 27875- 0811 Mar, Fibromyalgia M79.7 [facility] [address] 44076- 8404 Mar, [facility] [address] 78979- 5915 Mar, Fibromyalgia M79.7 [facility] [address] 65145- 9464 Mar, [facility] [id number] [place] [address] 64836- 4385 Feb, Reflex sympathetic dystrophy G90.50 ; Right arm pain M79.601 and Fibromyalgia M79.7 [facility] [id number] [place] [address] 05603- 2547 Feb, [facility] [address] 63222- 2541 Feb, Anxiety F41.9 [facility] [id number] [place] [address] 18655- 2547 06 Feb, 2017 Fibromyalgia M79.7 [facility] [id number] [place] [address] 94004- 2546 05 Feb, 2017 [facility] [id number] [place] [address] 67842- 8566 Feb, [facility] [id number] [place] [address] 43028- 5751 Jan, Temporal headache R51 [facility] [id number] [place] [address] 34735- 2010 Jan, Fibromyalgia M79.7 [facility] [address] 08956- 5058 Dec, Fibromyalgia M79.7 [facility] [id number] [place] [address] 70273- 1093 Nov, Peroneal tendonitis, unspecified laterality M76.70 and Plantar fasciitis, bilateral M72.2 [place] [id number] [place] [address] 16703- 6389 Nov, Fibromyalgia M79.7 [facility] [id number] [place] [address] 48490- 3972 October, Fibromyalgia M79.7 [facility] [id number] [place] [address] 48545- 5403 October, Plantar fasciitis, bilateral M72.2 and Peroneal tendonitis, unspecified laterality M76.70 [facility] [id number] [place] [address] 65675- 9327 October, Fibromyalgia M79.7 [facility] [id number] [place] [address] 23970- 0533 Sep, Anxiety F41.9 [facility] [id number] [place] [address] 01878- 5897 Aug, Anxiety F41.9 and Adjustment disorder with anxiety F43.22 [facility] [id number] [place] [address] 26975- 9735 Aug, Pain of left foot M79.672 [facility] [id number] [place] [address] 27942- 7007 Aug, Pain of left foot M79.672 and Pain in right foot M79.671 [place] [address] [id number]- 5612 Aug, Arthritis M19.90 ; Reactive depression F32.9 ; Fibromyalgia M79.7 ; Rosacea L71.9 ; Pain in right foot M79.671 and Pain of left foot M79.672 [place] [address] 83041- 2285 Aug, Anxiety F41.9 ; Adjustment disorder with anxiety F43.22 and Reactive depression F32.9 [place] [address] [id number]- 4430 Aug, Right elbow pain M25.521 [place] [address] 83111- 6787 Aug, Plantar wart of right foot B07.0 and Actinic keratosis L57.0 [place] [address] 12388- 1454 Aug, Fibromyalgia M79.7 [place] [address] 09137- 6872 Jul, Arthritis M19.90 ; Hypothyroidism, unspecified type E03.9 ; Reactive depression F32.9 and Venous insufficiency I87.2 [place] [address] 98337- 8893 Jul, Gastroesophageal reflux disease, esophagitis presence not specified K21.9 [place] [address] 23149- 6817 Jul, Reflex sympathetic dystrophy G90.50 [place] [address] 36410- 1979 Jul, Anxiety F41.9 ; Adjustment disorder with anxiety F43.22 and Reactive depression F32.9 [place] [address] 56196- 3946 15 Jul, 2016 [facility] [address] 08316- 7716 03 Jul, 2016 Right elbow pain M25.521 [facility] [address] 05968- 2087 Jun, Fibromyalgia M79.7 [place] [address] 91621- 6137 Jun, Anxiety F41.9 ; Adjustment disorder with anxiety F43.22 and Reactive depression F32.9 [place] [address] 45368- 8582 Jun, [place] [address] 32404- 7693 Jun, Atypical chest pain R07.89 and Adjustment disorder with anxiety F43.22 [place] [address] [id number] Jun, Chest pain, unspecified type R07.9 [place] [address] 67645- 2704 Jun, Fibromyalgia M79.7 [place] [address] 72965- 8793 May, Anxiety F41.9 [place] [address] 81149- 1228 14 May, 2016 [place] [address] 12873- 8221 May, Right elbow pain M25.521 [place] [address] 71898- 5460 Apr, Reflex sympathetic dystrophy G90.50 and Encounter for immunization Z23 [place] [address] 92194- 0292 Apr, [facility] [address], [place] [address]- 0473 Mar, [facility] [id number] [place] [address] 92634- 3663 Feb, [facility] [address], [place] [address]- 4245 Feb, [facility] [id number] [place] [address] 03612- 7342 Jan, [facility] [address] [place] [address] 38014- 3606 Jan, Right elbow pain M25.521 and Right wrist pain M25.531 [facility] [id number] [place] [address] 11224- 9371 Jan, [facility] [id number] [place] [address] 86605- 9982 Dec, Seborrheic keratoses L82.1 [facility] [address], [place] [address]- 3496 Dec, [facility] [id number] [place] [address] 04039- 1676 Dec, [facility] [address], [place] [address]- 0414 Dec, [facility] [address], [place] [address]- 0224 Dec, Fibromyalgia M79.7 and Hypothyroidism, unspecified type E03.9 [facility] [address], [place] [address]- 9326 Dec, Seborrheic keratoses L82.1 [facility] [address], [place] [address]- 7413 Dec, [facility] [address] [address]- 7741 Dec, [facility] [address] [facility] [id number] [place] [address]- 0948 Nov, Sebaceous cyst L72.3 [facility] [address] [facility] [id number] [address]- 6572 October, Breast cancer screening Z12.39 [facility] [address] [facility] [id number] [address]- 5255 October, Fibromyalgia M79.7 ; Hypothyroidism, unspecified type E03.9 and Reflex sympathetic dystrophy G90.50 [facility] [address] [facility] [id number] [address]- 9396 October, Reflex sympathetic dystrophy G90.50 ; Fibromyalgia M79.7 and Hypothyroidism, unspecified type E03.9 IMMUNIZATIONS No Known Immunizations SOCIAL HISTORY Never Assessed REASON FOR VISIT BH f/u, Anxiety and depresson. PLAN OF CARE Activity Details Follow Up Next available Reason:depression and anxiety VITAL SIGNS MEDICATIONS Unknown Medications RESULTS No Results PROCEDURES Procedure Date Ordered Result Body Site [facility] VISIT MENTAL HEALTH ESTAB PT October 04, 2017 Psychotherapy, patient &/family, 45 minutes, established patient October 04, 2017 INSTRUCTIONS MEDICATIONS ADMINISTERED No Known Medications [...]
--- OUTSIDE RECORDS SUMMARY | 2018-03-07 17:54 | XMS REPORT ---
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 Name Role Phone JOE BAI Unavailable PROBLEMS Type Condition ICD9-CM Code NQA27-JT Code Onset Dates Condition Status SNOMED Code Problem Reactive depression F32.9 Active 23593994 Problem Plantar wart of right foot B07.0 Active 12421685 Problem Gastroesophageal reflux disease, esophagitis presence not specified K21.9 Active 766974163 Problem Internal derangement of right knee M23.91 Active [id number] Problem Abnormal laboratory test R89.9 Active 205559370 Problem Mixed hyperlipidemia E78.2 Active 990345039 Problem Rosacea L71.9 Active 212600880 Problem Mild episode of recurrent major depressive disorder F33.0 Active 958489362 Problem Generalized anxiety disorder F41.1 Active 29837624 Problem Hypothyroidism, unspecified type E03.9 Active 39313364 Problem Right elbow pain M25.521 Active 01852842 Problem Right wrist pain M25.531 Active 22223999 Problem Reflex sympathetic dystrophy G90.50 Active 73763929 Problem Venous insufficiency I87.2 Active 88158884 Problem Fibromyalgia M79.7 Active 575119020 Problem Arthritis M19.90 Active 6182720 ALLERGIES No Information ENCOUNTERS Encounter Location Date Diagnosis [facility] [id number] [address] Feb, [facility] [id number] [place] [address] 49589- 5810 Jan, [facility] [id number] [place] [address] 42314- 8830 Jan, [facility] [address] [address] 97[address] Jan, [facility] [address] [address] 3121 Jan, [facility] [id number] [place] [address] 65998- 3323 Jan, [facility] [id number] [place] [address] 77835- 2867 Dec, Mild episode of recurrent major depressive disorder F33.0 [facility] [id number] [place] [address] 10800- 2300 Dec, Generalized anxiety disorder F41.1 and Mild episode of recurrent major depressive disorder F33.0 [facility] [id number] [place] [address] 30580- 7941 Dec, Fibromyalgia M79.7 ; Arthritis M19.90 and Generalized anxiety disorder F41.1 [facility] [id number] [place] [address] 65443- 0004 Dec, Mild episode of recurrent major depressive disorder F33.0 and Generalized anxiety disorder F41.1 [facility] [id number] [place] [address] 23488- 9337 Dec, Fibromyalgia M79.7 [facility] [id number] [place] [address] 11218- 8863 Dec, Bronchitis J40 and Internal derangement of right knee M23.91 [facility] [address] [address] Dec, Cough R05 [facility] [id number] [place] [address] 24896- 2921 Dec, Generalized anxiety disorder F41.1 and Mild episode of recurrent major depressive disorder F33.0 [facility] [address] [address] 5368 Dec, [facility] [address] [address] Dec, [facility] [id number] [address] 8824 02 Dec, 2017 Mild episode of recurrent major depressive disorder F33.0 and Generalized anxiety disorder F41.1 [facility] [address] [address] 4931 30 Nov, 2017 [facility] [id number] [place] [address] 57309- 1495 Nov, [facility] [id number] [place] [address] 39611- 8371 Nov, [facility] [id number] [place] [address] 23297- 9737 Nov, Internal derangement of right knee M23.91 [facility] [id number] [place] [address] 80023- 3105 27 Nov, 2017 Generalized anxiety disorder F41.1 and Mild episode of recurrent major depressive disorder F33.0 [facility] [id number] [place] [address] 53229- 0993 Nov, Internal derangement of right knee M23.91 [facility] [id number] [place] [address] 78707 -5274 19 Nov, 2017 Acute right ankle pain M25.571 ; Acute pain of right knee M25.561 ; Acute left-sided low back pain without sciatica M54.5 and Right leg pain M79.604 [facility] [address] [address]- 2074 15 Nov, 2017 [facility] [id number] [place] [address] 44135- 6853 14 Nov, 2017 Fibromyalgia M79.7 [facility] [id number] [place] [address] 07092- 7925 13 Nov, 2017 Generalized anxiety disorder F41.1 and Mild episode of recurrent major depressive disorder F33.0 [facility] [id number] [place] [address] 38014- 5840 Nov, [facility] [id number] [place] [address] 54641- 6658 October, Generalized anxiety disorder F41.1 and Mild episode of recurrent major depressive disorder F33.0 [facility] [id number] [place] [address] 21475- 5226 October, Fibromyalgia M79.7 [facility] [id number] [place] [address] 95515- 7426 October, [facility] [id number] [place] [address] 90268- 2044 October, Generalized anxiety disorder F41.1 and Mild episode of recurrent major depressive disorder F33.0 [facility] [id number] [place] [address] 13469- 2973 October, [facility] [id number] [place] [address] 88883- 3287 Sep, Gastroesophageal reflux disease, esophagitis presence not specified K21.9 and Abnormal laboratory test R89.9 [facility] [id number] [place] [address] 08627- 0705 Sep, Fibromyalgia M79.7 [facility] [id number] [place] [address] 81164- 3939 Sep, Generalized anxiety disorder F41.1 and Mild episode of recurrent major depressive disorder F33.0 [facility] [id number] [place] [address] 90983- 0686 Sep, Epigastric pain R10.13 [facility] [id number] [place] [address] 85673- 5916 Sep, Mild episode of recurrent major depressive disorder F33.0 and Generalized anxiety disorder F41.1 [facility] [id number] [place] [address] 46251- 7150 Sep, Abnormal laboratory test R89.9 [facility] [id number] [place] [address] 31422- 6790 Sep, Generalized anxiety disorder F41.1 and Mild episode of recurrent major depressive disorder F33.0 [facility] [id number] [place] [address] 30077- 8010 29 Aug, 2017 Epigastric pain R10.13 and Encounter for therapeutic drug level monitoring Z51.81 [facility] [id number] [place] [address] 81244 -0800 Aug, Epigastric pain R10.13 and Gastro-esophageal reflux disease without esophagitis K21.9 [facility] [address] 15785- 3397 Aug, [place] [address] 54582- 8417 Aug, Epigastric pain R10.13 [place] [address] 97010- 3605 Aug, Fibromyalgia M79.7 [facility] [address] 66293- 3382 14 Aug, 2017 [facility] [address] 95541- 0280 14 Aug, 2017 Generalized anxiety disorder F41.1 and Mild episode of recurrent major depressive disorder F33.0 [place] [id number] [place] [address] 50385- 9669 08 Aug, 2017 Epigastric pain R10.13 ; Reflex sympathetic dystrophy G90.50 and Arthritis M19.90 [facility] [id number] [place] [address] 44147- 3066 Jul, Generalized anxiety disorder F41.1 and Mild episode of recurrent major depressive disorder F33.0 [place] [address] 60093- 6208 27 Jul, 2017 BMI 40.0-44.9, adult Z68.41 ; Mild episode of recurrent major depressive disorder F33.0 and Generalized anxiety disorder F41.1 [place] [id number] [place] [address] 04902- 3336 Jul, Fibromyalgia M79.7 [facility] [id number] [place] [address] 48146- 2076 Jun, Mild episode of recurrent major depressive disorder F33.0 and Generalized anxiety disorder F41.1 [facility] [id number] [place] [address] 28036- 9186 Jun, Fibromyalgia M79.7 [facility] [id number] [place] [address] 75398- 2008 Jun, Generalized anxiety disorder F41.1 and Mild episode of recurrent major depressive disorder F33.0 [place] [id number] [place] [address] 77711- 5333 Jun, Generalized anxiety disorder F41.1 and Mild episode of recurrent major depressive disorder F33.0 [place] [id number] [place] [address] 43888- 1705 Jun, Generalized anxiety disorder F41.1 and Mild episode of recurrent major depressive disorder F33.0 [place] [id number] [place] [address] 15303- 9921 Jun, [facility] [id number] [place] [address] 96625- 6811 Jun, Generalized anxiety disorder F41.1 and Mild episode of recurrent major depressive disorder F33.0 [place] [id number] [place] [address] 68839- 0679 May, Fibromyalgia M79.7 [facility] [id number] [place] [address] 77566- 4496 May, Generalized anxiety disorder F41.1 and Mild episode of recurrent major depressive disorder F33.0 [facility] [id number] [place] [address] 36206- 0726 May, Mixed hyperlipidemia E78.2 ; Arthritis M19.90 ; Reactive depression F32.9 and Hypothyroidism, unspecified type E03.9 [facility] [id number] [place] [address] 43856- 0763 May, Arthritis M19.90 ; Reactive depression F32.9 ; Mixed hyperlipidemia E78.2 and Hypothyroidism, unspecified type E03.9 [facility] [id number] [place] [address] 15077- 3133 Apr, Fibromyalgia M79.7 [facility] [address] 71709- 6436 Apr, [facility] [address] 82230- 7821 Apr, Fibromyalgia M79.7 [facility] [address] 46211- 8547 Mar, Fibromyalgia M79.7 [facility] [id number] [place] [address] 82397- 4436 Mar, [facility] [address] 91618- 8070 Mar, Fibromyalgia M79.7 [facility] [address] 29400- 2394 Mar, [facility] [id number] [place] [address] 73333- 2547 Feb, Reflex sympathetic dystrophy G90.50 ; Right arm pain M79.601 and Fibromyalgia M79.7 [facility] [id number] [place] [address] 12735 2542 Feb, [facility] [id number] [place] [address] 40078- 2541 Feb, Anxiety F41.9 [facility] [id number] [place] [address] 56813- 2540 06 Feb, 2017 Fibromyalgia M79.7 [facility] [id number] [place] [address] 35724 2546 05 Feb, 2017 [facility] [id number] [place] [address] 51391- 3753 Feb, [facility] [id number] [place] [address] 66624- 4119 Jan, Temporal headache R51 [facility] [id number] [place] [address] 31427- 5425 Jan, Fibromyalgia M79.7 [facility] [address] 59556- 9784 Dec, Fibromyalgia M79.7 [facility] [id number] [place] [address] 33117- 0079 Nov, Peroneal tendonitis, unspecified laterality M76.70 and Plantar fasciitis, bilateral M72.2 [place] [id number] [place] [address] 70585- 5531 Nov, Fibromyalgia M79.7 [facility] [id number] [place] [address] 86429- 0723 October, Fibromyalgia M79.7 [facility] [id number] [place] [address] 95638- 0922 October, Plantar fasciitis, bilateral M72.2 and Peroneal tendonitis, unspecified laterality M76.70 [facility] [id number] [place] [address] 72382- 1023 October, Fibromyalgia M79.7 [facility] [id number] [place] [address] 57494- 7895 Sep, Anxiety F41.9 [facility] [id number] [place] [address] 79593- 2599 Aug, Anxiety F41.9 and Adjustment disorder with anxiety F43.22 [facility] [id number] [place] [address] 24173- 7929 Aug, Pain of left foot M79.672 [facility] [address] [address] 0[address]65- 7080 Aug, Pain of left foot M79.672 and Pain in right foot M79.671 [place] [address] 45806- 1138 Aug, Arthritis M19.90 ; Reactive depression F32.9 ; Fibromyalgia M79.7 ; Rosacea L71.9 ; Pain in right foot M79.671 and Pain of left foot M79.672 [place] [address] 42253- 1826 Aug, Anxiety F41.9 ; Adjustment disorder with anxiety F43.22 and Reactive depression F32.9 [place] [address] 45333- 1352 Aug, Right elbow pain M25.521 [place] [address] 32919- 8352 Aug, Plantar wart of right foot B07.0 and Actinic keratosis L57.0 [place] [address] 85183- 3358 Aug, Fibromyalgia M79.7 [place] [address] 93456- 8150 Jul, Arthritis M19.90 ; Hypothyroidism, unspecified type E03.9 ; Reactive depression F32.9 and Venous insufficiency I87.2 [place] [address] 41607- 0761 Jul, Gastroesophageal reflux disease, esophagitis presence not specified K21.9 [place] [address] 18346- 8282 Jul, Reflex sympathetic dystrophy G90.50 [place] [address] 28914- 0643 Jul, Anxiety F41.9 ; Adjustment disorder with anxiety F43.22 and Reactive depression F32.9 [place] [id number] [place] [address] 15868- 3221 15 Jul, 2016 [facility] [address] 85025- 7969 03 Jul, 2016 Right elbow pain M25.521 [facility] [address] 82258- 9269 Jun, Fibromyalgia M79.7 [facility] [address] 64596- 1557 Jun, Anxiety F41.9 ; Adjustment disorder with anxiety F43.22 and Reactive depression F32.9 [place] [address] 68848- 3510 Jun, [place] [address] 25453- 6328 Jun, Atypical chest pain R07.89 and Adjustment disorder with anxiety F43.22 [facility] [address] [id number] Jun, Chest pain, unspecified type R07.9 [place] [address] 89785- 2699 Jun, Fibromyalgia M79.7 [place] [address] 80248- 9464 May, Anxiety F41.9 [facility] [address] 10384- 8898 14 May, 2016 [facility] [address] 08879- 7079 May, Right elbow pain M25.521 [place] [address] 90875- 1636 Apr, Reflex sympathetic dystrophy G90.50 and Encounter for immunization Z23 [place] [address] 82362- 5975 Apr, [facility] [address] [address]- 4671 Mar, [facility] [id number] [place] [address] 12296- 1936 Feb, [facility] [address] [address]- 2138 Feb, [facility] [id number] [place] [address] 11752- 1477 Jan, [facility] [address] [place] [address] 28566- 7976 Jan, Right elbow pain M25.521 and Right wrist pain M25.531 [facility] [id number] [place] [address] 88376- 2315 Jan, [facility] [id number] [place] [address] 47311- 7220 Dec, Seborrheic keratoses L82.1 [facility] [id number] [place] [address] 79345- 5686 Dec, [facility] [id number] [place] [address] 37495- 5159 Dec, [facility] [address] [address]- 5187 Dec, [facility] [id number] [place] [address] 56124- 8272 Dec, Fibromyalgia M79.7 and Hypothyroidism, unspecified type E03.9 [facility] [address] [address]- 5387 Dec, Seborrheic keratoses L82.1 [facility] [address] [address]- 2455 Dec, [facility] [id number] [place] [address] 64688- 7580 Dec, [facility] [address] [facility] [id number] [address]- 5610 Nov, Sebaceous cyst L72.3 [place] [address] [facility] [id number] [address]- 5748 October, Breast cancer screening Z12.39 [place] [address] [facility] [id number], [place] [address]- 5031 October, Fibromyalgia M79.7 ; Hypothyroidism, unspecified type E03.9 and Reflex sympathetic dystrophy G90.50 [place] [address] [facility] [id number] [address]- 2347 October, Reflex sympathetic dystrophy G90.50 ; Fibromyalgia M79.7 and Hypothyroidism, unspecified type E03.9 IMMUNIZATIONS No Known Immunizations SOCIAL HISTORY Never Assessed REASON FOR VISIT Refill request PLAN OF CARE VITAL SIGNS MEDICATIONS Medication Instructions Dosage Frequency Start Date End Date Duration Status Orphenadrine Citrate ER 100 mg Orally Once a day 1 tablet 24h Active RESULTS No Results PROCEDURES No [...]
--- OUTSIDE RECORDS SUMMARY | 2018-03-07 17:55 | XMS REPORT ---
Author Author FRANK CHAPMAN Organization [facility] Address [address] [place] [address] Care Team Providers [employer] Analyst Name Role Phone FRANK CHAPMAN Unavailable PROBLEMS Type Condition ICD9-CM Code FRN52-DI Code Onset Dates Condition Status SNOMED Code Problem Reactive depression F32.9 Active 31279479 Problem Plantar wart of right foot B07.0 Active 54716149 Problem Gastroesophageal reflux disease, esophagitis presence not specified K21.9 Active 106428615 Problem Internal derangement of right knee M23.91 Active 088651782119315 Problem Abnormal laboratory test R89.9 Active 059326673 Problem Mixed hyperlipidemia E78.2 Active 865607578 Problem Rosacea L71.9 Active 558703514 Problem Mild episode of recurrent major depressive disorder F33.0 Active 529072904 Problem Generalized anxiety disorder F41.1 Active 10593334 Problem Hypothyroidism, unspecified type E03.9 Active 66666292 Problem Right elbow pain M25.521 Active 21008904 Problem Right wrist pain M25.531 Active 58914447 Problem Reflex sympathetic dystrophy G90.50 Active 83918830 Problem Venous insufficiency I87.2 Active 82349165 Problem Fibromyalgia M79.7 Active 682751457 Problem Arthritis M19.90 Active 2953604 ALLERGIES No Information ENCOUNTERS Encounter Location Date Diagnosis [facility] [id number] [address] Jan, [facility] [id number] [address] Jan, [facility] [address] [address] Jan, [facility] [id number] [address] 8[address] Jan, [facility] [id number] [place] [address] 26142- 1384 Jan, [facility] [id number] [place] [address] 86582- 7145 Dec, [facility] [id number] [place] [address] 66750- 9034 Dec, Fibromyalgia M79.7 ; Arthritis M19.90 and Generalized anxiety disorder F41.1 [facility] [id number] [place] [address] 25544- 8398 Dec, Mild episode of recurrent major depressive disorder F33.0 and Generalized anxiety disorder F41.1 [facility] [id number] [place] [address] 93211- 5339 Dec, Fibromyalgia M79.7 [facility] [id number] [place] [address] 80822- 0504 Dec, Bronchitis J40 and Internal derangement of right knee M23.91 [facility] [id number] [place] [address] 52182 -0638 Dec, Cough R05 [facility] [id number] [place] [address] 03982- 7289 Dec, Generalized anxiety disorder F41.1 and Mild episode of recurrent major depressive disorder F33.0 [facility] [id number] [place] [address] 86570- 0730 Dec, [facility] [id number] [place] [address] 85424 -2491 Dec, [facility] [id number] [place] [address] 59471- 4896 Dec, Mild episode of recurrent major depressive disorder F33.0 and Generalized anxiety disorder F41.1 [facility] [id number] [place] [address] 99706- 4045 Nov, [facility] [id number] [place] [address] 93161- 2522 Nov, [facility] [address] [facility] [id number] [address] 0[address] Nov, [facility] [address] [facility] [id number] [place] [address] 29988- 1831 Nov, Internal derangement of right knee M23.91 [facility] [id number] [address] 4697 Nov, Generalized anxiety disorder F41.1 and Mild episode of recurrent major depressive disorder F33.0 [facility] [id number] [address] 3509 Nov, Internal derangement of right knee M23.91 [facility] [id number] [address] Nov, Acute right ankle pain M25.571 ; Acute pain of right knee M25.561 ; Acute left-sided low back pain without sciatica M54.5 and Right leg pain M79.604 [facility] [id number] [address] 3320 15 Nov, 2017 [facility] [id number] [place] [address] 90245- 6578 14 Nov, 2017 Fibromyalgia M79.7 [facility] [id number] [address] 7913 13 Nov, 2017 Generalized anxiety disorder F41.1 and Mild episode of recurrent major depressive disorder F33.0 [facility] [id number] [address] 3100 Nov, [facility] [id number] [address]- 6530 30 Oct, 2017 Generalized anxiety disorder F41.1 and Mild episode of recurrent major depressive disorder F33.0 [facility] [id number] [address] 1426 October, Fibromyalgia M79.7 [facility] [id number] [place] [address] 65103- 0084 October, [facility] [id number] [place] [address] 08784- 1029 October, Generalized anxiety disorder F41.1 and Mild episode of recurrent major depressive disorder F33.0 [facility] [id number] [place] [address] 43460- 9467 October, [facility] [id number] [place] [address] 91885- 3162 Sep, Gastroesophageal reflux disease, esophagitis presence not specified K21.9 and Abnormal laboratory test R89.9 [place] [address] 72289- 3792 Sep, Fibromyalgia M79.7 [place] [id number] [place] [address] 00044- 0021 Sep, Generalized anxiety disorder F41.1 and Mild episode of recurrent major depressive disorder F33.0 [place] [id number] [place] [address] 40048- 7140 Sep, Epigastric pain R10.13 [place] [id number] [place] [address] 42848- 1112 Sep, Mild episode of recurrent major depressive disorder F33.0 and Generalized anxiety disorder F41.1 [place] [id number] [place] [address] 12578- 0190 Sep, Abnormal laboratory test R89.9 [facility] [id number] [place] [address] 69088- 7880 Sep, Generalized anxiety disorder F41.1 and Mild episode of recurrent major depressive disorder F33.0 [facility] [id number] [place] [address] 77755- 3759 Aug, Epigastric pain R10.13 and Encounter for therapeutic drug level monitoring Z51.81 [facility] [id number] [place] [address] 82500 -4233 Aug, Epigastric pain R10.13 and Gastro-esophageal reflux disease without esophagitis K21.9 [place] [address] 33640- 8682 Aug, [place] [id number] [place] [address] 47587- 9870 Aug, Epigastric pain R10.13 [place] [address] 47431- 7695 Aug, Fibromyalgia M79.7 [place] [address] 99992- 6817 Aug, [place] [address] 99780- 8114 Aug, Generalized anxiety disorder F41.1 and Mild episode of recurrent major depressive disorder F33.0 [place] [address] 23026- 7732 Aug, Epigastric pain R10.13 ; Reflex sympathetic dystrophy G90.50 and Arthritis M19.90 [place] [address] 94443- 1766 Jul, Generalized anxiety disorder F41.1 and Mild episode of recurrent major depressive disorder F33.0 [place] [address] 28955- 6398 Jul, BMI 40.0-44.9, adult Z68.41 ; Mild episode of recurrent major depressive disorder F33.0 and Generalized anxiety disorder F41.1 [place] [id number] [place] [address] 62287- 9611 Jul, Fibromyalgia M79.7 [place] [address] 04309- 3715 Jun, Mild episode of recurrent major depressive disorder F33.0 and Generalized anxiety disorder F41.1 [place] [id number] [place] [address] 78033- 0619 Jun, Fibromyalgia M79.7 [facility] [id number] [place] [address] 88598- 1076 Jun, Generalized anxiety disorder F41.1 and Mild episode of recurrent major depressive disorder F33.0 [facility] [id number] [place] [address] 43532- 5625 Jun, Generalized anxiety disorder F41.1 and Mild episode of recurrent major depressive disorder F33.0 [facility] [id number] [place] [address] 45676- 9097 Jun, Generalized anxiety disorder F41.1 and Mild episode of recurrent major depressive disorder F33.0 [facility] [id number] [place] [address] 71477- 5596 Jun, [facility] [id number] [place] [address] 66391- 3975 Jun, Generalized anxiety disorder F41.1 and Mild episode of recurrent major depressive disorder F33.0 [facility] [id number] [place] [address] 99923- 4812 May, Fibromyalgia M79.7 [facility] [id number] [place] [address] 53779- 7613 May, Generalized anxiety disorder F41.1 and Mild episode of recurrent major depressive disorder F33.0 [facility] [id number] [place] [address] 23034- 5119 May, Mixed hyperlipidemia E78.2 ; Arthritis M19.90 ; Reactive depression F32.9 and Hypothyroidism, unspecified type E03.9 [facility] [id number] [place] [address] 54687- 4966 May, Arthritis M19.90 ; Reactive depression F32.9 ; Mixed hyperlipidemia E78.2 and Hypothyroidism, unspecified type E03.9 [facility] [address] [address]- 5987 Apr, Fibromyalgia M79.7 [facility] [id number] [place] [address] 06999- 8286 Apr, [facility] [address] 34400 2546 Apr, Fibromyalgia M79.7 [facility] [address] 06243 2546 Mar, Fibromyalgia M79.7 [facility] [address] 41518 2546 Mar, [facility] [address] 66898 2548 Mar, Fibromyalgia M79.7 [facility] [id number] [place] [address] 85132 2546 Mar, [facility] [address] 41603 2544 Feb, Reflex sympathetic dystrophy G90.50 ; Right arm pain M79.601 and Fibromyalgia M79.7 [facility] [id number] [place] [address] 09831 2546 Feb, [facility] [address] 94049 2546 Feb, Anxiety F41.9 [facility] [id number] [place] [address] 88440 2546 Feb, Fibromyalgia M79.7 [facility] [id number] [place] [address] 29113 2546 Feb, [facility] [id number] [place] [address] 61232 2546 Feb, [facility] [id number] [place] [address] 03944 2546 Jan, Temporal headache R51 [facility] [address] 36556 2542 Jan, Fibromyalgia M79.7 [facility] [id number] [place] [address] 13842- 3488 Dec, Fibromyalgia M79.7 [facility] [id number] [place] [address] 13549- 1014 Nov, Peroneal tendonitis, unspecified laterality M76.70 and Plantar fasciitis, bilateral M72.2 [place] [address] 31543- 7965 Nov, Fibromyalgia M79.7 [place] [address] 25414- 8825 October, Fibromyalgia M79.7 [facility] [id number] [place] [address] 46523- 8379 October, Plantar fasciitis, bilateral M72.2 and Peroneal tendonitis, unspecified laterality M76.70 [address] [address] 54464- 0395 October, Fibromyalgia M79.7 [place] [id number] [place] [address] 77178- 5610 Sep, Anxiety F41.9 [place] [id number] [place] [address] 23538- 7561 Aug, Anxiety F41.9 and Adjustment disorder with anxiety F43.22 [place] [id number] [place] [address] 50605- 0505 Aug, Pain of left foot M79.672 [place] [id number] [place] [address] 30690- 5937 Aug, Pain of left foot M79.672 and Pain in right foot M79.671 [place] [id number] [place] [address] 77041- 7777 Aug, Arthritis M19.90 ; Reactive depression F32.9 ; Fibromyalgia M79.7 ; Rosacea L71.9 ; Pain in right foot M79.671 and Pain of left foot M79.672 [place] [address] 12932- 1477 Aug, Anxiety F41.9 ; Adjustment disorder with anxiety F43.22 and Reactive depression F32.9 [place] [address] 59852- 4360 14 Aug, 2016 Right elbow pain M25.521 [place] [address] 43530- 4481 Aug, Plantar wart of right foot B07.0 and Actinic keratosis L57.0 [place] [address] 26147- 2653 Aug, Fibromyalgia M79.7 [place] [address] 67842- 5050 Jul, Arthritis M19.90 ; Hypothyroidism, unspecified type E03.9 ; Reactive depression F32.9 and Venous insufficiency I87.2 [place] [address] 62277- 0473 Jul, Gastroesophageal reflux disease, esophagitis presence not specified K21.9 [place] [address] 87135- 3273 Jul, Reflex sympathetic dystrophy G90.50 [place] [address] 16648- 2168 Jul, Anxiety F41.9 ; Adjustment disorder with anxiety F43.22 and Reactive depression F32.9 [place] [address] 54018- 3981 Jul, [place] [address] 25747- 9013 Jul, Right elbow pain M25.521 [place] [address] 24759- 5045 Jun, Fibromyalgia M79.7 [facility] [id number] [place] [address] 30332- 2781 Jun, Anxiety F41.9 ; Adjustment disorder with anxiety F43.22 and Reactive depression F32.9 [facility] [address] 80730- 1206 Jun, [facility] [address] 54783- 9218 Jun, Atypical chest pain R07.89 and Adjustment disorder with anxiety F43.22 [facility] [address] [id number] Jun, Chest pain, unspecified type R07.9 [place] [address] 71659- 9796 Jun, Fibromyalgia M79.7 [place] [address] 92620- 6499 May, Anxiety F41.9 [place] [address] 63942- 1369 May, [place] [address] 27950- 6988 May, Right elbow pain M25.521 [place] [address] 45845- 5488 Apr, Reflex sympathetic dystrophy G90.50 and Encounter for immunization Z23 [facility] [address] 42732- 2756 Apr, [place] [address] 82530- 6875 14 Mar, 2016 [facility] [address] 64996- 1063 Feb, [facility] [address] 65914- 9330 Feb, [facility] [address] [address]- 9999 Jan, [facility] [id number] [place] [address] 13253- 1415 Jan, Right elbow pain M25.521 and Right wrist pain M25.531 [facility] [id number] [place] [address] 85586- 6477 Jan, [facility] [id number] [place] [address] 24195- 3604 Dec, Seborrheic keratoses L82.1 [facility] [id number] [place] [address] 42767- 6836 Dec, [facility] [id number] [place] [address] 97739- 9518 Dec, [facility] [id number] [place] [address] 85660- 5947 Dec, [facility] [id number] [place] [address] 11334- 5870 Dec, Fibromyalgia M79.7 and Hypothyroidism, unspecified type E03.9 [facility] [id number] [place] [address] 24423- 0257 Dec, Seborrheic keratoses L82.1 [facility] [id number] [place] [address] 46462- 1489 Dec, [facility] [id number] [place] [address] 48524- 9624 Dec, [facility] [id number] [place] [address] 44995- 2133 Nov, Sebaceous cyst L72.3 [facility] [id number] [place] [address] 52415- 4162 October, Breast cancer screening Z12.39 [facility] [id number] [place] [address], [place] [address]- 1607 October, Fibromyalgia M79.7 ; Hypothyroidism, unspecified type E03.9 and Reflex sympathetic dystrophy G90.50 [facility] [address] [facility] [id number] [address]- 8805 October, Reflex sympathetic dystrophy G90.50 ; Fibromyalgia M79.7 and Hypothyroidism, unspecified type E03.9 IMMUNIZATIONS No Known Immunizations SOCIAL HISTORY Never Assessed REASON FOR VISIT BH f/u, Anxiety and depresson. PLAN OF CARE Activity Details Follow Up 2 Weeks Reason:anxiety and depression VITAL SIGNS MEDICATIONS Unknown Medications RESULTS No Results PROCEDURES Procedure Date Ordered Result Body Site [facility] VISIT MENTAL HEALTH ESTAB PT September 19, 2017 Psychotherapy, patient &/family, 45 minutes, established patient September 19, 2017 INSTRUCTIONS MEDICATIONS ADMINISTERED No Known Medications [...]
--- OUTSIDE RECORDS SUMMARY | 2018-03-07 17:55 | XMS REPORT ---
Author Author BAMBI POLLY [facility] Address [address] [place] [address] Care Team Providers Care Rn Review Name Role Phone MANAVKAYA VARMAA Unavailable PROBLEMS Type Condition ICD9-CM Code [id number] Code Onset Dates Condition Status SNOMED Code Problem Reactive depression F32.9 Active 11542664 Problem Plantar wart of right foot B07.0 Active 68778246 Problem Gastroesophageal reflux disease, esophagitis presence not specified K21.9 Active 600614352 Problem Internal derangement of right knee M23.91 Active 807347658258905 Problem Abnormal laboratory test R89.9 Active 365637334 Problem Mixed hyperlipidemia E78.2 Active 038745070 Problem Rosacea L71.9 Active 086114468 Problem Mild episode of recurrent major depressive disorder F33.0 Active 465805685 Problem Generalized anxiety disorder F41.1 Active 10441013 Problem Hypothyroidism, unspecified type E03.9 Active 85824077 Problem Right elbow pain M25.521 Active 39835668 Problem Right wrist pain M25.531 Active 04534656 Problem Reflex sympathetic dystrophy G90.50 Active 00768687 Problem Venous insufficiency I87.2 Active 96452577 Problem Fibromyalgia M79.7 Active 978265849 Problem Arthritis M19.90 Active 6008829 ALLERGIES No Information ENCOUNTERS Encounter Location Date Diagnosis [facility] [address] [facility] [id number] [address] Feb, [facility] [id number] [address] Jan, [facility] [address], [place] [address] Jan, [facility] [address] [id number], [place] [address] 8286 Jan, [facility] [address], [place] [address] 06[address] Jan, [facility] [id number] [place] [address] 55023- 7093 Jan, [facility] [id number] [place] [address] 18733- 7117 Dec, Mild episode of recurrent major depressive disorder F33.0 [facility] [id number] [place] [address] 82573- 6719 Dec, Generalized anxiety disorder F41.1 and Mild episode of recurrent major depressive disorder F33.0 [facility] [id number] [place] [address] 27098- 1065 Dec, Fibromyalgia M79.7 ; Arthritis M19.90 and Generalized anxiety disorder F41.1 [facility] [id number] [place] [address] 54324- 4107 Dec, Mild episode of recurrent major depressive disorder F33.0 and Generalized anxiety disorder F41.1 [facility] [address] [place] [address] 91725- 6753 Dec, Fibromyalgia M79.7 [facility] [id number] [place] [address] 90292- 8949 Dec, Bronchitis J40 and Internal derangement of right knee M23.91 [facility] [address], [place] [address] Dec, Cough R05 [facility] [address] [place] [address] 82691- 8408 Dec, Generalized anxiety disorder F41.1 and Mild episode of recurrent major depressive disorder F33.0 [facility] [address], [place] [address] 7533 Dec, [facility] [address], [place] [address] Dec, [facility] [address], [place] [address] 6161 02 Dec, 2017 Mild episode of recurrent major depressive disorder F33.0 and Generalized anxiety disorder F41.1 [facility] [address], [place] [address] 4[address] 30 Nov, 2017 [facility] [address], [place] [address] 4642 Nov, [facility] [address] [place] [address] 12114- 5911 Nov, [facility] [address] [place] [address] 44948- 6660 Nov, Internal derangement of right knee M23.91 [facility] [address], [place] [address] 3147 Nov, Generalized anxiety disorder F41.1 and Mild episode of recurrent major depressive disorder F33.0 [facility] [address], [place] [address] 5055 Nov, Internal derangement of right knee M23.91 [facility] [address], [place] [address] Nov, Acute right ankle pain M25.571 ; Acute pain of right knee M25.561 ; Acute left-sided low back pain without sciatica M54.5 and Right leg pain M79.604 [place] [facility] [address], [place] [address] 9247 15 Nov, 2017 [place] [address], [place] [address] 0777 14 Nov, 2017 Fibromyalgia M79.7 [place] [address] [place] [address] 04263- 1137 13 Nov, 2017 Generalized anxiety disorder F41.1 and Mild episode of recurrent major depressive disorder F33.0 [facility] [address], [place] [address] 0265 Nov, [facility] [address] [place] [address] 03399- 5466 October, Generalized anxiety disorder F41.1 and Mild episode of recurrent major depressive disorder F33.0 [facility] [id number] [place] [address] 40154- 3826 October, Fibromyalgia M79.7 [facility] [id number] [place] [address] 43800- 4166 October, [facility] [id number] [place] [address] 69309- 2767 October, Generalized anxiety disorder F41.1 and Mild episode of recurrent major depressive disorder F33.0 [facility] [id number] [place] [address] 77831- 6267 October, [facility] [id number] [place] [address] 78838- 4510 Sep, Gastroesophageal reflux disease, esophagitis presence not specified K21.9 and Abnormal laboratory test R89.9 [facility] [id number] [place] [address] 62343- 8368 Sep, Fibromyalgia M79.7 [facility] [id number] [place] [address] 33562- 8278 Sep, Generalized anxiety disorder F41.1 and Mild episode of recurrent major depressive disorder F33.0 [facility] [id number] [place] [address] 16626- 7694 Sep, Epigastric pain R10.13 [facility] [id number] [place] [address] 85336- 1965 Sep, Mild episode of recurrent major depressive disorder F33.0 and Generalized anxiety disorder F41.1 [facility] [id number] [place] [address] 64328- 7861 Sep, Abnormal laboratory test R89.9 [facility] [id number] [place] [address] 83723- 1650 Sep, Generalized anxiety disorder F41.1 and Mild episode of recurrent major depressive disorder F33.0 [facility] [id number] [place] [address] 78683- 0093 29 Aug, 2017 Epigastric pain R10.13 and Encounter for therapeutic drug level monitoring Z51.81 [facility] [id number] [place] [address] 53006 -7281 Aug, Epigastric pain R10.13 and Gastro-esophageal reflux disease without esophagitis K21.9 [facility] [id number] [place] [address] 38563- 1655 Aug, [place] [address] 19828- 0063 Aug, Epigastric pain R10.13 [place] [address] 94505- 5560 Aug, Fibromyalgia M79.7 [facility] [address] 54636- 7339 14 Aug, 2017 [place] [address] 74214- 1825 Aug, Generalized anxiety disorder F41.1 and Mild episode of recurrent major depressive disorder F33.0 [facility] [id number] [place] [address] 02786- 4844 08 Aug, 2017 Epigastric pain R10.13 ; Reflex sympathetic dystrophy G90.50 and Arthritis M19.90 [facility] [id number] [place] [address] 31138- 4497 Jul, Generalized anxiety disorder F41.1 and Mild episode of recurrent major depressive disorder F33.0 [facility] [id number] [place] [address] 68898- 7996 Jul, BMI 40.0-44.9, adult Z68.41 ; Mild episode of recurrent major depressive disorder F33.0 and Generalized anxiety disorder F41.1 [facility] [id number] [place] [address] 47229- 2125 Jul, Fibromyalgia M79.7 [facility] [id number] [place] [address] 10758- 8156 Jun, Mild episode of recurrent major depressive disorder F33.0 and Generalized anxiety disorder F41.1 [facility] [id number] [place] [address] 55361- 6306 Jun, Fibromyalgia M79.7 [facility] [id number] [place] [address] 50683- 6862 Jun, Generalized anxiety disorder F41.1 and Mild episode of recurrent major depressive disorder F33.0 [facility] [id number] [place] [address] 78328- 8171 Jun, Generalized anxiety disorder F41.1 and Mild episode of recurrent major depressive disorder F33.0 [facility] [id number] [place] [address] 74100- 0205 Jun, Generalized anxiety disorder F41.1 and Mild episode of recurrent major depressive disorder F33.0 [facility] [facility] [id number] [place] [address] 56723- 7649 Jun, [facility] [id number] [place] [address] 50410- 9772 Jun, Generalized anxiety disorder F41.1 and Mild episode of recurrent major depressive disorder F33.0 [place] [facility] [id number] [place] [address] 37014- 4453 May, Fibromyalgia M79.7 [facility] [address] [place] [address] 90949- 5360 May, Generalized anxiety disorder F41.1 and Mild episode of recurrent major depressive disorder F33.0 [place] [address] [place] [address] 78879- 9590 May, Mixed hyperlipidemia E78.2 ; Arthritis M19.90 ; Reactive depression F32.9 and Hypothyroidism, unspecified type E03.9 [facility] [id number] [place] [address] 48221- 5069 May, Arthritis M19.90 ; Reactive depression F32.9 ; Mixed hyperlipidemia E78.2 and Hypothyroidism, unspecified type E03.9 [facility] [id number] [place] [address] 48338- 7080 Apr, Fibromyalgia M79.7 [facility] [address] 45258 2546 Apr, [facility] [id number] [place] [address] 87475- 1988 Apr, Fibromyalgia M79.7 [facility] [id number] [place] [address] 10673- 9911 Mar, Fibromyalgia M79.7 [facility] [address] 49115- 9028 Mar, [facility] [id number] [place] [address] 95196- 0434 Mar, Fibromyalgia M79.7 [facility] [address] 24907 2546 Mar, [facility] [id number] [place] [address] 96706 2544 Feb, Reflex sympathetic dystrophy G90.50 ; Right arm pain M79.601 and Fibromyalgia M79.7 [facility] [id number] [place] [address] 20921 2546 Feb, [facility] [id number] [place] [address] 45288 2546 Feb, Anxiety F41.9 [facility] [id number] [place] [address] 45110 2545 06 Feb, 2017 Fibromyalgia M79.7 [facility] [id number] [place] [address] 88671 2546 Feb, [facility] [id number] [place] [address] 64263- 5178 Feb, [facility] [address] 35457- 1385 Jan, Temporal headache R51 [facility] [id number] [place] [address] 44450- 9895 Jan, Fibromyalgia M79.7 [facility] [address] 44622- 9464 Dec, Fibromyalgia M79.7 [facility] [id number] [place] [address] 36346- 8142 Nov, Peroneal tendonitis, unspecified laterality M76.70 and Plantar fasciitis, bilateral M72.2 [facility] [id number] [place] [address] 52800- 0716 Nov, Fibromyalgia M79.7 [facility] [id number] [place] [address] 77949- 4837 October, Fibromyalgia M79.7 [facility] [id number] [place] [address] 96877- 7411 October, Plantar fasciitis, bilateral M72.2 and Peroneal tendonitis, unspecified laterality M76.70 [facility] [id number] [place] [address] 20990- 4712 October, Fibromyalgia M79.7 [facility] [id number] [place] [address] 69444- 8640 Sep, Anxiety F41.9 [facility] [id number] [place] [address] 97264- 2976 Aug, Anxiety F41.9 and Adjustment disorder with anxiety F43.22 [facility] [id number] [place] [address] 71338- 1878 Aug, Pain of left foot M79.672 [facility] [address] [place] [address]- 9808 Aug, Pain of left foot M79.672 and Pain in right foot M79.671 [place] [address] 49492- 6599 Aug, Arthritis M19.90 ; Reactive depression F32.9 ; Fibromyalgia M79.7 ; Rosacea L71.9 ; Pain in right foot M79.671 and Pain of left foot M79.672 [place] [address] 34357- 7572 Aug, Anxiety F41.9 ; Adjustment disorder with anxiety F43.22 and Reactive depression F32.9 [place] [address] 60544- 5326 Aug, Right elbow pain M25.521 [place] [address] 25405- 0833 Aug, Plantar wart of right foot B07.0 and Actinic keratosis L57.0 [place] [address] 34406- 4320 Aug, Fibromyalgia M79.7 [place] [address] 72367- 6487 Jul, Arthritis M19.90 ; Hypothyroidism, unspecified type E03.9 ; Reactive depression F32.9 and Venous insufficiency I87.2 [place] [id number] [place] [address] 54848- 5698 Jul, Gastroesophageal reflux disease, esophagitis presence not specified K21.9 [place] [address] 38177- 0063 Jul, Reflex sympathetic dystrophy G90.50 [place] [address] 21058- 6588 Jul, Anxiety F41.9 ; Adjustment disorder with anxiety F43.22 and Reactive depression F32.9 [facility] [id number] [place] [address] 13756- 7958 15 Jul, 2016 [facility] [address] 26320- 6956 03 Jul, 2016 Right elbow pain M25.521 [facility] [address] 61794- 3806 Jun, Fibromyalgia M79.7 [facility] [address] 54819- 9825 Jun, Anxiety F41.9 ; Adjustment disorder with anxiety F43.22 and Reactive depression F32.9 [address] [address] 94797- 6426 Jun, [place] [address] 42983- 8466 Jun, Atypical chest pain R07.89 and Adjustment disorder with anxiety F43.22 [facility] [address] [id number] Jun, Chest pain, unspecified type R07.9 [place] [address] 84434- 0814 Jun, Fibromyalgia M79.7 [facility] [address] 00074- 6467 May, Anxiety F41.9 [facility] [address] 35783- 0898 May, [facility] [address] 63732- 4064 May, Right elbow pain M25.521 [facility] [address] 03971- 1151 Apr, Reflex sympathetic dystrophy G90.50 and Encounter for immunization Z23 [address] [address] 12413- 1892 Apr, [facility] [address], [place] [address]- 6481 Mar, [facility] [id number] [place] [address] 45730- 8159 Feb, [facility] [address], [place] [address]- 9564 Feb, [facility] [id number] [place] [address] 96160- 3043 Jan, [facility] [address] [place] [address] 07281- 6925 Jan, Right elbow pain M25.521 and Right wrist pain M25.531 [facility] [id number] [place] [address] 16381- 2259 Jan, [facility] [id number] [place] [address] 75055- 8193 Dec, Seborrheic keratoses L82.1 [facility] [address], [place] [address]- 3933 Dec, [facility] [id number] [place] [address] 93443- 8032 Dec, [facility] [address], [place] [address]- 0736 Dec, [facility] [address] [place] [address] 63681- 3156 Dec, Fibromyalgia M79.7 and Hypothyroidism, unspecified type E03.9 [facility] [address], [place] [address]- 6679 Dec, Seborrheic keratoses L82.1 [facility] [address], [place] [address]- 4767 Dec, [facility] [address] [place] [address] 19201- 7696 Dec, [facility] [address] [facility] [id number] [address]- 6443 Nov, Sebaceous cyst L72.3 [place] [address] [facility] [id number], [place] [address]- 9703 October, Breast cancer screening Z12.39 [place] [address] [facility] [id number] [address]- 8708 October, Fibromyalgia M79.7 ; Hypothyroidism, unspecified type E03.9 and Reflex sympathetic dystrophy G90.50 [place] [address] [facility] [id number] [address]- 9570 October, Reflex sympathetic dystrophy G90.50 ; Fibromyalgia M79.7 and Hypothyroidism, unspecified type E03.9 IMMUNIZATIONS No Known Immunizations SOCIAL HISTORY Never Assessed REASON FOR VISIT f/u PLAN OF CARE Activity Details Follow Up 3 Months Reason: VITAL SIGNS MEDICATIONS Medication Instructions Dosage Frequency Start Date End Date Duration Status Fiorinal 50-325-40 MG Orally every 4 hrs 1 capsule as needed 4h Jan, Active Excedrin Migraine 250-250-65 MG Orally every 6 hrs 2 tablets as needed 6h Active Trintellix 5 MG Orally Once a day 1 tablet 24h Jun, 30 days Active Carafate 1 GM Orally 4 times a day 1 tablet 6h Aug, October, 30 days Active Levothyroxine Sodium 75MCG TAKE ONE TABLET BY MOUTH ONCE DAILY 90 Active Pantoprazole Sodium 40MG Orally Once a day 1 tablet 24h Active Tizanidine HCl 4 MG Orally Three times a day 1 tablet as needed 8h Aug, Active HydrOXYzine HCl 10 MG Orally three times a day as needed for anxiety and sleep 1 tablet May, Active Hydrocodone-Acetaminophen 7.5-325 MG Orally 3 times a day 1 tablet 8h Aug, 28 days Active Topiramate 200MG Orally twice a day 1 tablet 12h 30 Active RESULTS No Results PROCEDURES Procedure Date Ordered Result Body Site [facility] VISIT ESTABLISHED PATIENT September 27, 2017 INSTRUCTIONS MEDICATIONS ADMINISTERED No Known Medications [...]
--- OUTSIDE RECORDS SUMMARY | 2018-03-07 17:55 | XMS REPORT ---
Author Author JOE BAI Organization [facility] Address [address] [place] [address] Care Team Providers Care Head Coach Name Role Phone JOE BAI Unavailable PROBLEMS Type Condition ICD9-CM Code VII39-ZK Code Onset Dates Condition Status SNOMED Code Problem Reactive depression F32.9 Active 72690835 Problem Plantar wart of right foot B07.0 Active 91027995 Problem Gastroesophageal reflux disease, esophagitis presence not specified K21.9 Active 547980352 Problem Internal derangement of right knee M23.91 Active [id number] Problem Abnormal laboratory test R89.9 Active 776353409 Problem Mixed hyperlipidemia E78.2 Active 077743284 Problem Rosacea L71.9 Active 255641862 Problem Mild episode of recurrent major depressive disorder F33.0 Active 693329982 Problem Generalized anxiety disorder F41.1 Active 34984626 Problem Hypothyroidism, unspecified type E03.9 Active 31701769 Problem Right elbow pain M25.521 Active 85517411 Problem Right wrist pain M25.531 Active 52601509 Problem Reflex sympathetic dystrophy G90.50 Active 29511022 Problem Venous insufficiency I87.2 Active 95501343 Problem Fibromyalgia M79.7 Active 639082073 Problem Arthritis M19.90 Active 8507501 ALLERGIES Substance Reaction Event Type Date Status Robaxin Unknown Drug Allergy Aug, Active Penicillin V Potassium Unknown Drug Allergy Aug, Active Demerol Unknown Drug Allergy Aug, Active Codeine Sulfate Unknown Drug Allergy Aug, Active ENCOUNTERS Encounter Location Date Diagnosis [facility] [address] [facility] [id number] [address] Jan, [facility] [address] [facility] [id number] [address] Jan, [facility] [address] [facility] [id number], [place] [address] 93[address] Jan, [facility] [address] [address] Jan, [facility] [id number] [place] [address] 12335- 9195 Jan, [facility] [id number] [place] [address] 28250- 0891 Dec, [facility] [id number] [place] [address] 10746- 4377 Dec, Fibromyalgia M79.7 ; Arthritis M19.90 and Generalized anxiety disorder F41.1 [facility] [id number] [place] [address] 69670- 1141 Dec, Mild episode of recurrent major depressive disorder F33.0 and Generalized anxiety disorder F41.1 [facility] [id number] [place] [address] 03097- 5907 Dec, Fibromyalgia M79.7 [facility] [id number] [place] [address] 39601- 9111 Dec, Bronchitis J40 and Internal derangement of right knee M23.91 [facility] [id number] [place] [address] 33388 -0613 Dec, Cough R05 [facility] [id number] [place] [address] 86849- 3554 Dec, Generalized anxiety disorder F41.1 and Mild episode of recurrent major depressive disorder F33.0 [facility] [address], [place] [address] 9952 Dec, [facility] [id number] [place] [address] 91878 -2024 Dec, [facility] [address] [address] 3495 Dec, Mild episode of recurrent major depressive disorder F33.0 and Generalized anxiety disorder F41.1 [facility] [address] [address] 6771 30 Nov, 2017 [facility] [address] [address] 8080 29 Nov, 2017 [facility] [address] [address] 9664 28 Nov, 2017 [facility] [id number] [place] [address] 05138- 3996 Nov, Internal derangement of right knee M23.91 [facility] [address] [address] 7001 27 Nov, 2017 Generalized anxiety disorder F41.1 and Mild episode of recurrent major depressive disorder F33.0 [facility] [address] [address] 1118 Nov, Internal derangement of right knee M23.91 [facility] [address], [place] [address] 19 Nov, 2017 Acute right ankle pain M25.571 ; Acute pain of right knee M25.561 ; Acute left-sided low back pain without sciatica M54.5 and Right leg pain M79.604 [facility] [address], [place] [address] 9593 15 Nov, 2017 [place] [address], [place] [address]- 5855 14 Nov, 2017 Fibromyalgia M79.7 [facility] [address], [place] [address]- 0567 13 Nov, 2017 Generalized anxiety disorder F41.1 and Mild episode of recurrent major depressive disorder F33.0 [facility] [address], [place] [address]- 7187 11 Nov, 2017 [facility] [address], [place] [address] 8523 October, Generalized anxiety disorder F41.1 and Mild episode of recurrent major depressive disorder F33.0 [facility] [id number] [place] [address] 04634- 5641 October, Fibromyalgia M79.7 [facility] [id number] [place] [address] 61137- 3606 October, [facility] [id number] [place] [address] 68134- 6834 October, Generalized anxiety disorder F41.1 and Mild episode of recurrent major depressive disorder F33.0 [facility] [id number] [place] [address] 43248- 2759 October, [facility] [id number] [place] [address] 78487- 5645 Sep, Gastroesophageal reflux disease, esophagitis presence not specified K21.9 and Abnormal laboratory test R89.9 [facility] [id number] [place] [address] 32588- 2871 Sep, Fibromyalgia M79.7 [facility] [id number] [place] [address] 99258- 8514 Sep, Generalized anxiety disorder F41.1 and Mild episode of recurrent major depressive disorder F33.0 [facility] [id number] [place] [address] 85048- 3916 Sep, Epigastric pain R10.13 [facility] [id number] [place] [address] 77205- 6828 Sep, Mild episode of recurrent major depressive disorder F33.0 and Generalized anxiety disorder F41.1 [facility] [id number] [place] [address] 22584- 7451 Sep, Abnormal laboratory test R89.9 [facility] [id number] [place] [address] 03823- 7338 Sep, Generalized anxiety disorder F41.1 and Mild episode of recurrent major depressive disorder F33.0 [facility] [id number] [place] [address] 59066- 3881 29 Aug, 2017 Epigastric pain R10.13 and Encounter for therapeutic drug level monitoring Z51.81 [facility] [id number] [place] [address] 90320 -5687 Aug, Epigastric pain R10.13 and Gastro-esophageal reflux disease without esophagitis K21.9 [facility] [id number] [place] [address] 30218- 5833 Aug, [facility] [address] 68890- 3175 Aug, Epigastric pain R10.13 [place] [address] 87720- 9258 Aug, Fibromyalgia M79.7 [facility] [address] 46188- 9525 Aug, [facility] [address] 94664- 1318 Aug, Generalized anxiety disorder F41.1 and Mild episode of recurrent major depressive disorder F33.0 [place] [address] 90534- 5875 Aug, Epigastric pain R10.13 ; Reflex sympathetic dystrophy G90.50 and Arthritis M19.90 [facility] [id number] [place] [address] 20818- 8942 Jul, Generalized anxiety disorder F41.1 and Mild episode of recurrent major depressive disorder F33.0 [facility] [id number] [place] [address] 79689- 1519 Jul, BMI 40.0-44.9, adult Z68.41 ; Mild episode of recurrent major depressive disorder F33.0 and Generalized anxiety disorder F41.1 [facility] [id number] [place] [address] 71588- 5892 Jul, Fibromyalgia M79.7 [facility] [address] 83468- 8516 Jun, Mild episode of recurrent major depressive disorder F33.0 and Generalized anxiety disorder F41.1 [facility] [id number] [place] [address] 34024- 9926 Jun, Fibromyalgia M79.7 [facility] [id number] [place] [address] 08911- 2478 Jun, Generalized anxiety disorder F41.1 and Mild episode of recurrent major depressive disorder F33.0 [facility] [id number] [place] [address] 01913- 8054 Jun, Generalized anxiety disorder F41.1 and Mild episode of recurrent major depressive disorder F33.0 [facility] [id number] [place] [address] 17835- 4901 Jun, Generalized anxiety disorder F41.1 and Mild episode of recurrent major depressive disorder F33.0 [facility] [id number] [place] [address] 56670- 2206 Jun, [facility] [id number] [place] [address] 29041- 6634 Jun, Generalized anxiety disorder F41.1 and Mild episode of recurrent major depressive disorder F33.0 [facility] [address], [place] [address]- 4405 May, Fibromyalgia M79.7 [facility] [id number] [place] [address] 71462- 5098 May, Generalized anxiety disorder F41.1 and Mild episode of recurrent major depressive disorder F33.0 [facility] [address], [place] [address]- 8316 May, Mixed hyperlipidemia E78.2 ; Arthritis M19.90 ; Reactive depression F32.9 and Hypothyroidism, unspecified type E03.9 [facility] [address], [place] [address]- 6471 May, Arthritis M19.90 ; Reactive depression F32.9 ; Mixed hyperlipidemia E78.2 and Hypothyroidism, unspecified type E03.9 [facility] [id number] [place] [address] 91005- 2165 Apr, Fibromyalgia M79.7 [facility] [id number] [place] [address] 09960- 9816 Apr, [facility] [address] 55768- 6553 Apr, Fibromyalgia M79.7 [facility] [address] 07149- 4401 Mar, Fibromyalgia M79.7 [facility] [address] 62001- 8540 Mar, [facility] [address] 45523- 0791 Mar, Fibromyalgia M79.7 [facility] [address] 06307- 3396 Mar, [facility] [id number] [place] [address] 89498- 9856 Feb, Reflex sympathetic dystrophy G90.50 ; Right arm pain M79.601 and Fibromyalgia M79.7 [facility] [id number] [place] [address] 52921- 8687 Feb, [facility] [address] 52700- 9662 Feb, Anxiety F41.9 [facility] [id number] [place] [address] 44726- 7839 Feb, Fibromyalgia M79.7 [facility] [id number] [place] [address] 70277- 4258 Feb, [facility] [id number] [place] [address] 70983- 1362 Feb, [facility] [address] 68378- 0260 Jan, Temporal headache R51 [facility] [id number] [place] [address] 58934- 1689 Jan, Fibromyalgia M79.7 [facility] [id number] [place] [address] 05080- 3546 Dec, Fibromyalgia M79.7 [facility] [id number] [place] [address] 88815- 1820 Nov, Peroneal tendonitis, unspecified laterality M76.70 and Plantar fasciitis, bilateral M72.2 [facility] [id number] [place] [address] 84680- 9162 Nov, Fibromyalgia M79.7 [facility] [id number] [place] [address] 61992- 8023 October, Fibromyalgia M79.7 [facility] [id number] [place] [address] 23148- 1991 October, Plantar fasciitis, bilateral M72.2 and Peroneal tendonitis, unspecified laterality M76.70 [facility] [id number] [place] [address] 66272- 1402 October, Fibromyalgia M79.7 [facility] [id number] [place] [address] 55918- 9245 Sep, Anxiety F41.9 [place] [id number] [place] [address] 93968- 5901 Aug, Anxiety F41.9 and Adjustment disorder with anxiety F43.22 [facility] [id number] [place] [address] 62559- 8248 Aug, Pain of left foot M79.672 [facility] [id number] [place] [address] 38080- 7863 Aug, Pain of left foot M79.672 and Pain in right foot M79.671 [facility] [address] [place] [address]- 7227 Aug, Arthritis M19.90 ; Reactive depression F32.9 ; Fibromyalgia M79.7 ; Rosacea L71.9 ; Pain in right foot M79.671 and Pain of left foot M79.672 [place] [address] 54286- 2115 Aug, Anxiety F41.9 ; Adjustment disorder with anxiety F43.22 and Reactive depression F32.9 [place] [address] 21363- 0052 14 Aug, 2016 Right elbow pain M25.521 [place] [address] 68928- 2411 Aug, Plantar wart of right foot B07.0 and Actinic keratosis L57.0 [place] [address] 59244- 6560 Aug, Fibromyalgia M79.7 [place] [address] 23244- 8815 Jul, Arthritis M19.90 ; Hypothyroidism, unspecified type E03.9 ; Reactive depression F32.9 and Venous insufficiency I87.2 [place] [address] 22393- 1894 Jul, Gastroesophageal reflux disease, esophagitis presence not specified K21.9 [place] [address] 59676- 6235 Jul, Reflex sympathetic dystrophy G90.50 [place] [address] 20771- 0141 Jul, Anxiety F41.9 ; Adjustment disorder with anxiety F43.22 and Reactive depression F32.9 [place] [address] 23096- 1595 Jul, [place] [address] 68262- 6528 Jul, Right elbow pain M25.521 [facility] [address] 90913- 2736 Jun, Fibromyalgia M79.7 [facility] [address] 95519- 7116 Jun, Anxiety F41.9 ; Adjustment disorder with anxiety F43.22 and Reactive depression F32.9 [facility] [address] 89887- 7593 Jun, [facility] [address] 44936- 4834 Jun, Atypical chest pain R07.89 and Adjustment disorder with anxiety F43.22 [facility] [address] [id number] Jun, Chest pain, unspecified type R07.9 [facility] [address] 81302- 0870 Jun, Fibromyalgia M79.7 [facility] [address] 17109- 5019 May, Anxiety F41.9 [facility] [address] 76719- 0838 14 May, 2016 [facility] [address] 69118- 7158 May, Right elbow pain M25.521 [facility] [address] 02655- 5249 Apr, Reflex sympathetic dystrophy G90.50 and Encounter for immunization Z23 [facility] [address] 78291- 1625 07 Apr, 2016 [facility] [address] 64661- 8919 14 Mar, 2016 [facility] [address] [place] [address]- 3218 Feb, [facility] [address], [place] [address]- 1582 Feb, [facility] [address] [place] [address] 50321- 5472 Jan, [facility] [id number] [place] [address] 56617- 5277 Jan, Right elbow pain M25.521 and Right wrist pain M25.531 [facility] [address] [place] [address] 58593- 2663 Jan, [facility] [id number] [place] [address] 87941- 8047 Dec, Seborrheic keratoses L82.1 [facility] [id number] [place] [address] 96961- 3242 Dec, [facility] [id number] [place] [address] 46995- 6668 Dec, [facility] [id number] [place] [address] 91748- 1715 Dec, [facility] [address] [place] [address] 79575- 1703 Dec, Fibromyalgia M79.7 and Hypothyroidism, unspecified type E03.9 [facility] [address] [address]- 8929 Dec, Seborrheic keratoses L82.1 [facility] [address], [place] [address]- 9575 Dec, [facility] [id number] [place] [address] 81400- 9332 Dec, [facility] [address], [place] [address]- 3249 Nov, Sebaceous cyst L72.3 [place] [address] [facility] [id number] [place] [address]- 0550 October, Breast cancer screening Z12.39 [place] [address] [facility] [id number] [address]- 0750 October, Fibromyalgia M79.7 ; Hypothyroidism, unspecified type E03.9 and Reflex sympathetic dystrophy G90.50 [place] [address] [facility] [id number] [address]- 5511 October, Reflex sympathetic dystrophy G90.50 ; Fibromyalgia M79.7 and Hypothyroidism, unspecified type E03.9 IMMUNIZATIONS No Known Immunizations SOCIAL HISTORY Never Assessed REASON FOR VISIT Abdominal pain located in the center midline that has gotten worse with gas and normal bowls and heartburn-[place] MA PLAN OF CARE Activity Details Follow Up 3 Months Reason: VITAL SIGNS Height 62 in 2017-09-15 Weight 218.3 lbs 2017-09-15 Temperature 98.5 degrees Fahrenheit 2017-09-15 Heart Rate 76 bpm 2017-09-15 Respiratory Rate 18 2017-09-15 BMI 39.92 kg/m2 2017-09-15 Blood pressure systolic 132 mmHg 2017-09-15 Blood pressure diastolic 76 mmHg 2017-09-15 MEDICATIONS Medication Instructions Dosage Frequency Start Date End Date Duration Status Fiorinal 50-325-40 MG Orally every 4 hrs 1 capsule as needed 4h 11 Jan, 2017 Active Topiramate 200MG Orally twice a day 1 tablet 12h 30 Active HydrOXYzine HCl 10 MG Orally three times a day as needed for anxiety and sleep 1 tablet May, Active Tizanidine HCl 4 MG Orally Three times a day 1 tablet as needed 8h Aug, Active Trintellix 5 MG Orally Once a day 1 tablet 24h Jun, 030 days Active Levothyroxine Sodium 75MCG TAKE ONE TABLET BY MOUTH ONCE DAILY 90 Active Excedrin Migraine 250-250-65 MG Orally every 6 hrs 2 tablets as needed 6h Active Carafate 1 GM Orally 4 times a day 1 tablet 6h 08 Aug, 2017 October, 30 days Active Hydrocodone-Acetaminophen 7.5-325 MG Orally 3 times a day 1 tablet 8h Aug, 28 days Active Pantoprazole Sodium 40MG Orally Once a day 1 tablet 24h Active RESULTS No Results PROCEDURES Procedure Date Ordered Result Body Site DRUG TEST PRSMV CHEM ANLYZR September 15, 2017 DRUG SCREEN AMPHETAMINES 06/21September 15, 2017 VENIPUNCT, ROUTINE* September 15, 2017 [facility] September 15, 2017 [facility] VISIT ESTABLISHED PATIENT September 15, 2017 INSTRUCTIONS MEDICATIONS ADMINISTERED No Known Medications [...]
--- OUTSIDE RECORDS SUMMARY | 2018-03-07 17:56 | XMS REPORT ---
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 Optical Glass Inspector Name Role Phone JOE BAI Unavailable PROBLEMS Type Condition ICD9-CM Code UNB13-ZX Code Onset Dates Condition Status SNOMED Code Problem Reactive depression F32.9 Active 54357426 Problem Plantar wart of right foot B07.0 Active 81046491 Problem Gastroesophageal reflux disease, esophagitis presence not specified K21.9 Active 254917328 Problem Internal derangement of right knee M23.91 Active 879412957605902 Problem Abnormal laboratory test R89.9 Active 542303731 Problem Mixed hyperlipidemia E78.2 Active 209905680 Problem Rosacea L71.9 Active 904256663 Problem Mild episode of recurrent major depressive disorder F33.0 Active 474526465 Problem Generalized anxiety disorder F41.1 Active 00943225 Problem Hypothyroidism, unspecified type E03.9 Active 37258326 Problem Right elbow pain M25.521 Active 58227281 Problem Right wrist pain M25.531 Active 26770966 Problem Reflex sympathetic dystrophy G90.50 Active 85504151 Problem Venous insufficiency I87.2 Active 53875894 Problem Fibromyalgia M79.7 Active 738394928 Problem Arthritis M19.90 Active 9706494 ALLERGIES No Information ENCOUNTERS Encounter Location Date Diagnosis [facility] [address] [address] Jan, [facility] [id number] [place] [address] 91200- 7551 Jan, [facility] [id number] [place] [address] 91510- 7153 Jan, [facility] [address], [place] [address] 7162 Jan, [facility] [id number] [address] Jan, [facility] [id number] [place] [address] 83383- 5423 Dec, [facility] [id number] [place] [address] 60704- 3258 Dec, Fibromyalgia M79.7 ; Arthritis M19.90 and Generalized anxiety disorder F41.1 [facility] [id number] [place] [address] 84901- 5271 Dec, Mild episode of recurrent major depressive disorder F33.0 and Generalized anxiety disorder F41.1 [facility] [id number] [place] [address] 37762- 3456 Dec, Fibromyalgia M79.7 [facility] [id number] [place] [address] 30182- 2367 Dec, Bronchitis J40 and Internal derangement of right knee M23.91 [facility] [id number] [place] [address] 92812 -5316 Dec, Cough R05 [facility] [id number] [place] [address] 88255- 1184 Dec, Generalized anxiety disorder F41.1 and Mild episode of recurrent major depressive disorder F33.0 [facility] [id number] [place] [address] 73373- 4592 Dec, [facility] [id number] [place] [address] 23313 -2175 Dec, [facility] [id number] [place] [address] 86170- 6383 Dec, Mild episode of recurrent major depressive disorder F33.0 and Generalized anxiety disorder F41.1 [facility] [address] [place] [address] 23269- 4410 Nov, [facility] [id number] [place] [address] 52703- 8533 Nov, [facility] [address], [place] [address] Nov, [facility] [id number] [place] [address] 61522- 3214 Nov, Internal derangement of right knee M23.91 [facility] [address] [place] [address] 49543- 9103 Nov, Generalized anxiety disorder F41.1 and Mild episode of recurrent major depressive disorder F33.0 [facility] [address] [address] 9539 Nov, Internal derangement of right knee M23.91 [facility] [id number] [address] 19 Nov, 2017 Acute right ankle pain M25.571 ; Acute pain of right knee M25.561 ; Acute left-sided low back pain without sciatica M54.5 and Right leg pain M79.604 [facility] [address], [place] [address] 5873 15 Nov, 2017 [facility] [id number] [place] [address] 53455- 7883 14 Nov, 2017 Fibromyalgia M79.7 [facility] [address], [place] [address]- 3728 Nov, Generalized anxiety disorder F41.1 and Mild episode of recurrent major depressive disorder F33.0 [facility] [address], [place] [address]- 0488 Nov, [facility] [id number] [place] [address] 21275- 3615 30 Oct, 2017 Generalized anxiety disorder F41.1 and Mild episode of recurrent major depressive disorder F33.0 [facility] [address], [place] [address]- 2354 October, Fibromyalgia M79.7 [facility] [id number] [place] [address] 85931- 6713 October, [facility] [id number] [place] [address] 65434- 4504 October, Generalized anxiety disorder F41.1 and Mild episode of recurrent major depressive disorder F33.0 [facility] [id number] [place] [address] 89507- 0539 October, [facility] [address] 83161- 4396 Sep, Gastroesophageal reflux disease, esophagitis presence not specified K21.9 and Abnormal laboratory test R89.9 [facility] [id number] [place] [address] 85231- 9518 Sep, Fibromyalgia M79.7 [facility] [id number] [place] [address] 68049- 5851 Sep, Generalized anxiety disorder F41.1 and Mild episode of recurrent major depressive disorder F33.0 [facility] [id number] [place] [address] 44826- 0201 Sep, Epigastric pain R10.13 [facility] [id number] [place] [address] 68602- 8616 Sep, Mild episode of recurrent major depressive disorder F33.0 and Generalized anxiety disorder F41.1 [facility] [id number] [place] [address] 36851- 2535 Sep, Abnormal laboratory test R89.9 [facility] [id number] [place] [address] 85153- 4691 Sep, Generalized anxiety disorder F41.1 and Mild episode of recurrent major depressive disorder F33.0 [facility] [id number] [place] [address] 73179- 9416 Aug, Epigastric pain R10.13 and Encounter for therapeutic drug level monitoring Z51.81 [facility] [id number] [place] [address] 92370 -9255 Aug, Epigastric pain R10.13 and Gastro-esophageal reflux disease without esophagitis K21.9 [facility] [id number] [place] [address] 39169- 0831 Aug, [facility] [id number] [place] [address] 54836- 1458 Aug, Epigastric pain R10.13 [facility] [address] 59294- 2601 Aug, Fibromyalgia M79.7 [facility] [id number] [place] [address] 52506- 4490 Aug, [facility] [address] 78498- 3077 Aug, Generalized anxiety disorder F41.1 and Mild episode of recurrent major depressive disorder F33.0 [facility] [id number] [place] [address] 04000- 1495 Aug, Epigastric pain R10.13 ; Reflex sympathetic dystrophy G90.50 and Arthritis M19.90 [facility] [address] 84192- 6456 Jul, Generalized anxiety disorder F41.1 and Mild episode of recurrent major depressive disorder F33.0 [facility] [id number] [place] [address] 51816- 7610 Jul, BMI 40.0-44.9, adult Z68.41 ; Mild episode of recurrent major depressive disorder F33.0 and Generalized anxiety disorder F41.1 [facility] [id number] [place] [address] 29619- 4833 Jul, Fibromyalgia M79.7 [facility] [id number] [place] [address] 48624- 0426 Jun, Mild episode of recurrent major depressive disorder F33.0 and Generalized anxiety disorder F41.1 [facility] [id number] [place] [address] 37549- 4962 Jun, Fibromyalgia M79.7 [facility] [id number] [place] [address] 28231- 0496 Jun, Generalized anxiety disorder F41.1 and Mild episode of recurrent major depressive disorder F33.0 [facility] [id number] [place] [address] 28791- 3539 Jun, Generalized anxiety disorder F41.1 and Mild episode of recurrent major depressive disorder F33.0 [facility] [id number] [place] [address] 55633- 7683 Jun, Generalized anxiety disorder F41.1 and Mild episode of recurrent major depressive disorder F33.0 [facility] [id number] [place] [address] 69733- 9790 Jun, [facility] [id number] [place] [address] 46233- 7023 Jun, Generalized anxiety disorder F41.1 and Mild episode of recurrent major depressive disorder F33.0 [facility] [id number] [place] [address] 46904- 4370 May, Fibromyalgia M79.7 [facility] [id number] [place] [address] 19311- 2061 May, Generalized anxiety disorder F41.1 and Mild episode of recurrent major depressive disorder F33.0 [facility] [address] [place] [address] 19527- 1743 May, Mixed hyperlipidemia E78.2 ; Arthritis M19.90 ; Reactive depression F32.9 and Hypothyroidism, unspecified type E03.9 [facility] [id number] [place] [address] 46930- 6450 May, Arthritis M19.90 ; Reactive depression F32.9 ; Mixed hyperlipidemia E78.2 and Hypothyroidism, unspecified type E03.9 [facility] [address] [place] [address] 10725- 0673 Apr, Fibromyalgia M79.7 [facility] [id number] [place] [address] 15678- 1278 Apr, [facility] [address] 39088- 2546 Apr, Fibromyalgia M79.7 [facility] [id number] [place] [address] 85729- 7636 Mar, Fibromyalgia M79.7 [facility] [address] 45893- 0173 Mar, [facility] [address] 51169- 4673 Mar, Fibromyalgia M79.7 [facility] [id number] [place] [address] 99544- 0103 Mar, [facility] [address] 21966- 1164 Feb, Reflex sympathetic dystrophy G90.50 ; Right arm pain M79.601 and Fibromyalgia M79.7 [facility] [id number] [place] [address] 25288- 1996 Feb, [facility] [id number] [place] [address] 17639- 0979 Feb, Anxiety F41.9 [facility] [id number] [place] [address] 27535 2545 Feb, Fibromyalgia M79.7 [facility] [id number] [place] [address] 28988 2545 Feb, [facility] [id number] [place] [address] 29278- 1983 Feb, [facility] [id number] [place] [address] 23645- 254 Jan, Temporal headache R51 [facility] [address] 96651- 8936 Jan, Fibromyalgia M79.7 [facility] [id number] [place] [address] 36507- 7019 Dec, Fibromyalgia M79.7 [facility] [id number] [place] [address] 99668- 4651 Nov, Peroneal tendonitis, unspecified laterality M76.70 and Plantar fasciitis, bilateral M72.2 [facility] [address] 93276- 4201 Nov, Fibromyalgia M79.7 [facility] [id number] [place] [address] 88887- 0689 October, Fibromyalgia M79.7 [facility] [id number] [place] [address] 54744- 0688 October, Plantar fasciitis, bilateral M72.2 and Peroneal tendonitis, unspecified laterality M76.70 [facility] [id number] [place] [address] 97251- 0385 October, Fibromyalgia M79.7 [facility] [id number] [place] [address] 24627- 3641 Sep, Anxiety F41.9 [facility] [id number] [place] [address] 54889- 7937 Aug, Anxiety F41.9 and Adjustment disorder with anxiety F43.22 [facility] [id number] [place] [address] 07362- 0686 Aug, Pain of left foot M79.672 [facility] [id number] [place] [address] 52593- 3622 Aug, Pain of left foot M79.672 and Pain in right foot M79.671 [facility] [id number] [place] [address] 97116- 2913 Aug, Arthritis M19.90 ; Reactive depression F32.9 ; Fibromyalgia M79.7 ; Rosacea L71.9 ; Pain in right foot M79.671 and Pain of left foot M79.672 [place] [address] 38961- 0977 Aug, Anxiety F41.9 ; Adjustment disorder with anxiety F43.22 and Reactive depression F32.9 [facility] [address] 06439- 9502 14 Aug, 2016 Right elbow pain M25.521 [facility] [address] 88147- 0536 07 Aug, 2016 Plantar wart of right foot B07.0 and Actinic keratosis L57.0 [facility] [address] 93552- 9981 Aug, Fibromyalgia M79.7 [facility] [address] 08280- 6989 Jul, Arthritis M19.90 ; Hypothyroidism, unspecified type E03.9 ; Reactive depression F32.9 and Venous insufficiency I87.2 [facility] [address] 74731- 8472 Jul, Gastroesophageal reflux disease, esophagitis presence not specified K21.9 [facility] [address] 86357- 0373 Jul, Reflex sympathetic dystrophy G90.50 [facility] [address] 10360- 4892 Jul, Anxiety F41.9 ; Adjustment disorder with anxiety F43.22 and Reactive depression F32.9 [facility] [address] 93616- 3068 Jul, [facility] [address] 95508- 1122 03 Jul, 2016 Right elbow pain M25.521 [facility] [address] 95885- 7860 Jun, Fibromyalgia M79.7 [facility] [id number] [place] [address] 58450- 5500 Jun, Anxiety F41.9 ; Adjustment disorder with anxiety F43.22 and Reactive depression F32.9 [facility] [id number] [place] [address] 62026- 5819 Jun, [facility] [address] 36095- 7944 Jun, Atypical chest pain R07.89 and Adjustment disorder with anxiety F43.22 [facility] [address] [id number] Jun, Chest pain, unspecified type R07.9 [facility] [address] 41474- 6907 Jun, Fibromyalgia M79.7 [facility] [address] 02551- 1247 May, Anxiety F41.9 [facility] [address] 46827- 5560 May, [facility] [address] 73908- 8414 May, Right elbow pain M25.521 [facility] [id number] [place] [address] 50198- 7190 Apr, Reflex sympathetic dystrophy G90.50 and Encounter for immunization Z23 [facility] [id number] [place] [address] 56868- 5988 Apr, [facility] [address] 21328- 8105 Mar, [facility] [address] 50242- 8124 Feb, [facility] [address] 88674- 9043 Feb, [facility] [address], [place] [address]- 3228 Jan, [facility] [id number] [place] [address] 35713- 8043 Jan, Right elbow pain M25.521 and Right wrist pain M25.531 [facility] [id number] [place] [address] 43886- 4975 Jan, [facility] [id number] [place] [address] 66588- 1847 Dec, Seborrheic keratoses L82.1 [facility] [id number] [place] [address] 96870- 5835 Dec, [facility] [id number] [place] [address] 62015- 8908 Dec, [facility] [id number] [place] [address] 73833- 4545 Dec, [facility] [id number] [place] [address] 92292- 0122 Dec, Fibromyalgia M79.7 and Hypothyroidism, unspecified type E03.9 [facility] [id number] [address]- 3969 Dec, Seborrheic keratoses L82.1 [facility] [address], [place] [address]- 0851 Dec, [facility] [address] [place] [address] 23021- 8056 Dec, [facility] [id number] [place] [address] 77136- 6502 Nov, Sebaceous cyst L72.3 [facility] [address], [place] [address] October, Breast cancer screening Z12.39 [facility] [id number] [address]- 9383 October, Fibromyalgia M79.7 ; Hypothyroidism, unspecified type E03.9 and Reflex sympathetic dystrophy G90.50 [facility] [address] [facility] [id number] [address]- 0930 October, Reflex sympathetic dystrophy G90.50 ; Fibromyalgia [...] History surgeries Hospitalization History Chest Pain-[facility] 07/02/16 Hospitalization History Chest Pain - [facility] 10/06/17
--- OUTSIDE RECORDS SUMMARY | 2018-03-07 17:56 | XMS REPORT ---
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 Role Phone BEAU LONGO Unavailable PROBLEMS Type Condition ICD9-CM Code ZGB09-HJ Code Onset Dates Condition Status SNOMED Code Problem Reactive depression F32.9 Active 75617118 Problem Plantar wart of right foot B07.0 Active 63844351 Problem Gastroesophageal reflux disease, esophagitis presence not specified K21.9 Active 698457490 Problem Internal derangement of right knee M23.91 Active [id number] Problem Abnormal laboratory test R89.9 Active 880925115 Problem Mixed hyperlipidemia E78.2 Active 197816732 Problem Rosacea L71.9 Active 121162021 Problem Mild episode of recurrent major depressive disorder F33.0 Active 795550253 Problem Generalized anxiety disorder F41.1 Active 94568940 Problem Hypothyroidism, unspecified type E03.9 Active 15548861 Problem Right elbow pain M25.521 Active 09094109 Problem Right wrist pain M25.531 Active 76434491 Problem Reflex sympathetic dystrophy G90.50 Active 90753586 Problem Venous insufficiency I87.2 Active 62331074 Problem Fibromyalgia M79.7 Active 921803595 Problem Arthritis M19.90 Active 1833356 ALLERGIES Substance Reaction Event Type Date Status Robaxin Unknown Drug Allergy Aug, Active Penicillin V Potassium Unknown Drug Allergy Aug, Active Demerol Unknown Drug Allergy Aug, Active Codeine Sulfate Unknown Drug Allergy Aug, Active ENCOUNTERS Encounter Location Date Diagnosis [facility] [address] [facility] [id number], [place] [address] Jan, [facility] [address] [facility] [id number], [place] [address] Jan, [facility] [address] [facility] [id number], [place] [address] Jan, [facility] [id number] [place] [address] 53384- 0688 Jan, [facility] [id number] [place] [address] 10915- 0886 Jan, [facility] [id number] [place] [address] 36121- 0511 Dec, [facility] [id number] [place] [address] 93709- 0497 Dec, Fibromyalgia M79.7 ; Arthritis M19.90 and Generalized anxiety disorder F41.1 [facility] [id number] [place] [address] 55829- 1325 Dec, Mild episode of recurrent major depressive disorder F33.0 and Generalized anxiety disorder F41.1 [facility] [id number] [place] [address] 82891- 3711 Dec, Fibromyalgia M79.7 [facility] [id number] [place] [address] 61998- 2069 Dec, Bronchitis J40 and Internal derangement of right knee M23.91 [facility] [id number] [place] [address] 57575 -4239 Dec, Cough R05 [facility] [id number] [place] [address] 06951- 5319 Dec, Generalized anxiety disorder F41.1 and Mild episode of recurrent major depressive disorder F33.0 [facility] [address] [address] Dec, [facility] [id number] [place] [address] 49278 -3942 Dec, [facility] [address] [id number] [address] 2262 Dec, Mild episode of recurrent major depressive disorder F33.0 and Generalized anxiety disorder F41.1 [facility] [address], [place] [address] 00[address] 30 Nov, 2017 [facility] [address], [place] [address] 59[address] Nov, [facility] [address], [place] [address] 7437 28 Nov, 2017 [facility] [id number] [place] [address] 58836- 3308 Nov, Internal derangement of right knee M23.91 [facility] [address] [address] 2773 Nov, Generalized anxiety disorder F41.1 and Mild episode of recurrent major depressive disorder F33.0 [facility] [address], [place] [address] 6276 22 Nov, 2017 Internal derangement of right knee M23.91 [facility] [address], [place] [address] Nov, Acute right ankle pain M25.571 ; Acute pain of right knee M25.561 ; Acute left-sided low back pain without sciatica M54.5 and Right leg pain M79.604 [facility] [address], [place] [address] 8[address] 15 Nov, 2017 [place] [address], [place] [address] 7008 14 Nov, 2017 Fibromyalgia M79.7 [facility] [address], [place] [address] 7967 13 Nov, 2017 Generalized anxiety disorder F41.1 and Mild episode of recurrent major depressive disorder F33.0 [facility] [address], [place] [address] 55[address] Nov, [facility] [address], [place] [address] 3381 October, Generalized anxiety disorder F41.1 and Mild episode of recurrent major depressive disorder F33.0 [facility] [address] [place] [address] 85569- 1211 October, Fibromyalgia M79.7 [facility] [id number] [place] [address] 81652- 9906 October, [facility] [id number] [place] [address] 29798- 9188 October, Generalized anxiety disorder F41.1 and Mild episode of recurrent major depressive disorder F33.0 [facility] [id number] [place] [address] 04834- 7230 October, [facility] [id number] [place] [address] 16595- 6151 Sep, Gastroesophageal reflux disease, esophagitis presence not specified K21.9 and Abnormal laboratory test R89.9 [place] [id number] [place] [address] 99453- 4546 Sep, Fibromyalgia M79.7 [facility] [id number] [place] [address] 89056- 3594 Sep, Generalized anxiety disorder F41.1 and Mild episode of recurrent major depressive disorder F33.0 [facility] [id number] [place] [address] 42832- 7962 Sep, Epigastric pain R10.13 [place] [id number] [place] [address] 58390- 3573 Sep, Mild episode of recurrent major depressive disorder F33.0 and Generalized anxiety disorder F41.1 [facility] [address] [place] [address] 27703- 7185 Sep, Abnormal laboratory test R89.9 [facility] [id number] [place] [address] 49612- 4787 Sep, Generalized anxiety disorder F41.1 and Mild episode of recurrent major depressive disorder F33.0 [facility] [id number] [place] [address] 09372- 8722 29 Aug, 2017 Epigastric pain R10.13 and Encounter for therapeutic drug level monitoring Z51.81 [facility] [id number] [place] [address] 23265 -0660 Aug, Epigastric pain R10.13 and Gastro-esophageal reflux disease without esophagitis K21.9 [facility] [id number] [place] [address] 69590- 5573 Aug, [facility] [address] 37744- 8299 Aug, Epigastric pain R10.13 [place] [address] 38594- 8139 Aug, Fibromyalgia M79.7 [facility] [id number] [place] [address] 77934- 8366 Aug, [facility] [address] 12249- 3581 Aug, Generalized anxiety disorder F41.1 and Mild episode of recurrent major depressive disorder F33.0 [place] [address] 87050- 8128 08 Aug, 2017 Epigastric pain R10.13 ; Reflex sympathetic dystrophy G90.50 and Arthritis M19.90 [facility] [id number] [place] [address] 11746- 7841 Jul, Generalized anxiety disorder F41.1 and Mild episode of recurrent major depressive disorder F33.0 [facility] [id number] [place] [address] 45282- 8184 Jul, BMI 40.0-44.9, adult Z68.41 ; Mild episode of recurrent major depressive disorder F33.0 and Generalized anxiety disorder F41.1 [facility] [id number] [place] [address] 32194- 2148 Jul, Fibromyalgia M79.7 [facility] [address] 01996- 0759 Jun, Mild episode of recurrent major depressive disorder F33.0 and Generalized anxiety disorder F41.1 [facility] [id number] [place] [address] 61820- 1786 Jun, Fibromyalgia M79.7 [facility] [address] [place] [address] 15283- 8231 Jun, Generalized anxiety disorder F41.1 and Mild episode of recurrent major depressive disorder F33.0 [facility] [id number] [place] [address] 73977- 1939 Jun, Generalized anxiety disorder F41.1 and Mild episode of recurrent major depressive disorder F33.0 [place] [id number] [place] [address] 71835- 6643 Jun, Generalized anxiety disorder F41.1 and Mild episode of recurrent major depressive disorder F33.0 [facility] [id number] [place] [address] 60848- 8421 Jun, [facility] [id number] [place] [address] 84616- 2649 Jun, Generalized anxiety disorder F41.1 and Mild episode of recurrent major depressive disorder F33.0 [facility] [address] [place] [address] 60679- 4409 May, Fibromyalgia M79.7 [facility] [address] [place] [address] 75963- 2302 May, Generalized anxiety disorder F41.1 and Mild episode of recurrent major depressive disorder F33.0 [facility] [address] [place] [address] 09328- 1226 May, Mixed hyperlipidemia E78.2 ; Arthritis M19.90 ; Reactive depression F32.9 and Hypothyroidism, unspecified type E03.9 [facility] [address], [place] [address]- 8385 May, Arthritis M19.90 ; Reactive depression F32.9 ; Mixed hyperlipidemia E78.2 and Hypothyroidism, unspecified type E03.9 [facility] [address] 25536- 9564 Apr, Fibromyalgia M79.7 [facility] [address] 24179- 3601 Apr, [facility] [address] 61374- 9239 Apr, Fibromyalgia M79.7 [facility] [address] 94927- 2647 Mar, Fibromyalgia M79.7 [facility] [address] 40905- 6113 Mar, [facility] [address] 19014- 4038 Mar, Fibromyalgia M79.7 [facility] [address] 24507- 9154 Mar, [facility] [address] 95819- 0621 Feb, Reflex sympathetic dystrophy G90.50 ; Right arm pain M79.601 and Fibromyalgia M79.7 [facility] [id number] [place] [address] 20661- 0494 Feb, [facility] [address] 45354- 3863 Feb, Anxiety F41.9 [facility] [id number] [place] [address] 27355- 2513 Feb, Fibromyalgia M79.7 [facility] [address] 90879- 3516 Feb, [facility] [address] 67799- 6986 Feb, [facility] [address] 72777- 4831 Jan, Temporal headache R51 [facility] [id number] [place] [address] 68266- 8240 Jan, Fibromyalgia M79.7 [facility] [id number] [place] [address] 36349- 8516 Dec, Fibromyalgia M79.7 [facility] [id number] [place] [address] 58045- 1415 Nov, Peroneal tendonitis, unspecified laterality M76.70 and Plantar fasciitis, bilateral M72.2 [facility] [id number] [place] [address] 50458- 9579 Nov, Fibromyalgia M79.7 [facility] [id number] [place] [address] 53664- 3242 October, Fibromyalgia M79.7 [facility] [id number] [place] [address] 40706- 3675 October, Plantar fasciitis, bilateral M72.2 and Peroneal tendonitis, unspecified laterality M76.70 [facility] [id number] [place] [address] 66807- 9131 October, Fibromyalgia M79.7 [facility] [id number] [place] [address] 63234- 9814 Sep, Anxiety F41.9 [facility] [id number] [place] [address] 37669- 1451 Aug, Anxiety F41.9 and Adjustment disorder with anxiety F43.22 [facility] [id number] [place] [address] 63325- 2278 Aug, Pain of left foot M79.672 [facility] [id number] [place] [address] 44372- 5135 Aug, Pain of left foot M79.672 and Pain in right foot M79.671 [facility] [address] 31996- 9413 Aug, Arthritis M19.90 ; Reactive depression F32.9 ; Fibromyalgia M79.7 ; Rosacea L71.9 ; Pain in right foot M79.671 and Pain of left foot M79.672 [place] [address] 92156- 6897 Aug, Anxiety F41.9 ; Adjustment disorder with anxiety F43.22 and Reactive depression F32.9 [place] [address] 37943- 7328 14 Aug, 2016 Right elbow pain M25.521 [place] [address] 58641- 3470 Aug, Plantar wart of right foot B07.0 and Actinic keratosis L57.0 [place] [address] 58002- 0449 Aug, Fibromyalgia M79.7 [place] [address] 40714- 7929 Jul, Arthritis M19.90 ; Hypothyroidism, unspecified type E03.9 ; Reactive depression F32.9 and Venous insufficiency I87.2 [place] [address] 40557- 0099 Jul, Gastroesophageal reflux disease, esophagitis presence not specified K21.9 [place] [address] 50504- 3027 Jul, Reflex sympathetic dystrophy G90.50 [place] [address] 65483- 3637 Jul, Anxiety F41.9 ; Adjustment disorder with anxiety F43.22 and Reactive depression F32.9 [place] [address] 05346- 1870 Jul, [place] [address] 51602- 4938 Jul, Right elbow pain M25.521 [facility] [address] 79687- 1548 Jun, Fibromyalgia M79.7 [facility] [address] 74186- 4599 Jun, Anxiety F41.9 ; Adjustment disorder with anxiety F43.22 and Reactive depression F32.9 [facility] [address] 51953- 7998 Jun, [facility] [address] 72670- 1270 Jun, Atypical chest pain R07.89 and Adjustment disorder with anxiety F43.22 [facility] [address] [id number] Jun, Chest pain, unspecified type R07.9 [facility] [address] 84178- 1263 Jun, Fibromyalgia M79.7 [facility] [address] 69417- 0079 May, Anxiety F41.9 [facility] [address] 96336- 1355 14 May, 2016 [facility] [address] 93071- 8684 May, Right elbow pain M25.521 [facility] [address] 91733- 0768 Apr, Reflex sympathetic dystrophy G90.50 and Encounter for immunization Z23 [facility] [address] 06480- 6236 07 Apr, 2016 [facility] [address] 33455- 7699 14 Mar, 2016 [facility] [address] [place] [address]- 9119 Feb, [facility] [address], [place] [address]- 3039 Feb, [facility] [address], [place] [address]- 8622 Jan, [facility] [id number] [place] [address] 78653- 2122 Jan, Right elbow pain M25.521 and Right wrist pain M25.531 [facility] [address] [place] [address] 10061- 5460 Jan, [facility] [id number] [place] [address] 37257- 2378 Dec, Seborrheic keratoses L82.1 [facility] [id number] [place] [address] 48591- 1073 Dec, [facility] [id number] [place] [address] 57248- 0781 Dec, [facility] [id number] [place] [address] 22558- 0191 Dec, [facility] [id number] [place] [address] 45615- 9956 Dec, Fibromyalgia M79.7 and Hypothyroidism, unspecified type E03.9 [facility] [address], [place] [address]- 7301 Dec, Seborrheic keratoses L82.1 [facility] [address] [place] [address]- 1354 Dec, [facility] [address], [place] [address]- 7525 Dec, [facility] [address], [place] [address]- 6077 Nov, Sebaceous cyst L72.3 [facility] [address] [facility] [id number] [place] [address]- 3673 October, Breast cancer screening Z12.39 [place] [id number] [address]- 3409 October, Fibromyalgia M79.7 ; Hypothyroidism, unspecified type E03.9 and Reflex sympathetic dystrophy G90.50 [place] [address] [facility] [id number], [place] [address]- 8055 October, Reflex sympathetic dystrophy G90.50 ; Fibromyalgia M79.7 and Hypothyroidism, unspecified type E03.9 IMMUNIZATIONS No Known Immunizations SOCIAL HISTORY Never Assessed REASON FOR VISIT Abdominal pain Pt recently seen for abdominal pain was given carafate which is no longer helping, she is now getting short of breath with her abdominal pain TAMICA Shelton PLAN OF CARE Activity Details Follow Up prn Reason: VITAL SIGNS Height 62 in 2017-09-14 Weight 216.4 lbs 2017-09-14 Temperature 97.4 degrees Fahrenheit 2017-09-14 Heart Rate 80 bpm 2017-09-14 Respiratory Rate 20 2017-09-14 BMI 39.58 kg/m2 2017-09-14 Blood pressure systolic 118 mmHg 2017-09-14 Blood pressure diastolic 70 mmHg 2017-09-14 MEDICATIONS Medication Instructions Dosage Frequency Start Date End Date Duration Status Trintellix 5 MG Orally Once a day 1 tablet 24h Jun, 030 days Active Tizanidine HCl 4 MG Orally Three times a day 1 tablet as needed 8h Aug, Active Carafate 1 GM Orally 4 times a day 1 tablet 6h Aug, October, 30 days Active Hydrocodone-Acetaminophen 7.5-325 MG Orally 3 times a day 1 tablet 8h Aug, 28 days Active HydrOXYzine HCl 10 MG Orally three times a day as needed for anxiety and sleep 1 tablet May, Active Levothyroxine Sodium 75MCG TAKE ONE TABLET BY MOUTH ONCE DAILY 90 Active Excedrin Migraine 250-250-65 MG Orally every 6 hrs 2 tablets as needed 6h Active Topiramate 200MG Orally twice a day 1 tablet 12h 30 Active Fiorinal 50-325-40 MG Orally every 4 hrs 1 capsule as needed 4h Jan, Active Pantoprazole Sodium 40MG Orally Once a day 1 tablet 24h Active RESULTS No Results PROCEDURES Procedure Date Ordered Result Body Site [facility] VISIT ESTABLISHED PATIENT September 14, 2017 INSTRUCTIONS MEDICATIONS ADMINISTERED No Known [...]
--- OUTSIDE RECORDS SUMMARY | 2018-03-07 17:57 | XMS REPORT ---
Author Author JOE BAI [facility] Address [address] [place] [address] Care Team Providers Care Grinding Room Supervisor Name Role Phone JOE BAI Unavailable PROBLEMS Type Condition ICD9-CM Code BZL89-DP Code Onset Dates Condition Status SNOMED Code Problem Reactive depression F32.9 Active 90219329 Problem Plantar wart of right foot B07.0 Active 02486327 Problem Gastroesophageal reflux disease, esophagitis presence not specified K21.9 Active 821958436 Problem Internal derangement of right knee M23.91 Active 535516601630796 Problem Abnormal laboratory test R89.9 Active 145776401 Problem Mixed hyperlipidemia E78.2 Active 708110132 Problem Rosacea L71.9 Active 930875133 Problem Mild episode of recurrent major depressive disorder F33.0 Active 285937228 Problem Generalized anxiety disorder F41.1 Active 26827111 Problem Hypothyroidism, unspecified type E03.9 Active 18075045 Problem Right elbow pain M25.521 Active 51390060 Problem Right wrist pain M25.531 Active 20304452 Problem Reflex sympathetic dystrophy G90.50 Active 97883582 Problem Venous insufficiency I87.2 Active 63990245 Problem Fibromyalgia M79.7 Active 368298090 Problem Arthritis M19.90 Active 6270280 ALLERGIES No Information ENCOUNTERS Encounter Location Date Diagnosis [facility] [address], [place] [address] Jan, [facility] [id number] [place] [address] 12905- 8583 Jan, [facility] [id number] [place] [address] 41123- 6193 Jan, [facility] [address], [place] [address] Jan, [facility] [address], [place] [address]4 Dec, [facility] [id number] [place] [address] 85901- 4939 Dec, [facility] [id number] [place] [address] 02224- 9022 Dec, Fibromyalgia M79.7 [facility] [id number] [place] [address] 36669- 2130 Dec, Bronchitis J40 and Internal derangement of right knee M23.91 [facility] [id number] [place] [address] 05171 -0047 Dec, Cough R05 [facility] [id number] [place] [address] 22286- 5257 Dec, Generalized anxiety disorder F41.1 and Mild episode of recurrent major depressive disorder F33.0 [facility] [id number] [place] [address] 09986- 0719 Dec, [facility] [id number] [place] [address] 07343 -4271 Dec, [facility] [id number] [place] [address] 37185- 4719 Dec, Mild episode of recurrent major depressive disorder F33.0 and Generalized anxiety disorder F41.1 [facility] [id number] [place] [address] 92650- 8501 Nov, [facility] [id number] [place] [address] 20351- 8959 Nov, [facility] [id number] [place] [address] 22765- 8129 Nov, [facility] [id number] [place] [address] 62439- 5598 Nov, Internal derangement of right knee M23.91 [facility] [id number] [place] [address] 31790- 1449 Nov, Generalized anxiety disorder F41.1 and Mild episode of recurrent major depressive disorder F33.0 [facility] [id number] [place] [address] 54318- 1818 22 Nov, 2017 Internal derangement of right knee M23.91 [facility] [id number] [place] [address] 28179 -8234 19 Nov, 2017 Acute right ankle pain M25.571 ; Acute pain of right knee M25.561 ; Acute left-sided low back pain without sciatica M54.5 and Right leg pain M79.604 [facility] [id number] [place] [address] 99295- 4986 15 Nov, 2017 [facility] [id number] [place] [address] 65458- 9213 Nov, Fibromyalgia M79.7 [facility] [id number] [place] [address] 89435- 1514 Nov, Generalized anxiety disorder F41.1 and Mild episode of recurrent major depressive disorder F33.0 [facility] [id number] [place] [address] 95100- 4731 Nov, [facility] [id number] [place] [address] 84575- 3816 October, Generalized anxiety disorder F41.1 and Mild episode of recurrent major depressive disorder F33.0 [facility] [id number] [place] [address] 33170- 4385 October, Fibromyalgia M79.7 [facility] [address], [place] [address] 2283 October, [facility] [id number] [place] [address] 01682- 2679 October, Generalized anxiety disorder F41.1 and Mild episode of recurrent major depressive disorder F33.0 [facility] [id number] [place] [address] 63770- 9572 October, [facility] [id number] [place] [address] 04404- 1736 Sep, Gastroesophageal reflux disease, esophagitis presence not specified K21.9 and Abnormal laboratory test R89.9 [facility] [id number] [place] [address] 62924- 2111 Sep, Fibromyalgia M79.7 [facility] [address] 81912- 3904 Sep, Generalized anxiety disorder F41.1 and Mild episode of recurrent major depressive disorder F33.0 [facility] [address] 18991- 9838 Sep, Epigastric pain R10.13 [facility] [id number] [place] [address] 20598- 4530 Sep, Mild episode of recurrent major depressive disorder F33.0 and Generalized anxiety disorder F41.1 [facility] [id number] [place] [address] 93249- 5228 Sep, Abnormal laboratory test R89.9 [facility] [address] 88017- 1582 Sep, Generalized anxiety disorder F41.1 and Mild episode of recurrent major depressive disorder F33.0 [facility] [id number] [place] [address] 57198- 3656 Aug, Epigastric pain R10.13 and Encounter for therapeutic drug level monitoring Z51.81 [facility] [id number] [place] [address] 41472 -9412 Aug, Epigastric pain R10.13 and Gastro-esophageal reflux disease without esophagitis K21.9 [facility] [id number] [place] [address] 24337- 2377 Aug, [facility] [id number] [place] [address] 36357- 0785 Aug, Epigastric pain R10.13 [facility] [id number] [place] [address] 12004- 4510 Aug, Fibromyalgia M79.7 [facility] [id number] [place] [address] 32288- 2247 Aug, [facility] [address] 83209- 0094 Aug, Generalized anxiety disorder F41.1 and Mild episode of recurrent major depressive disorder F33.0 [facility] [address] 02663- 8789 08 Aug, 2017 Epigastric pain R10.13 ; Reflex sympathetic dystrophy G90.50 and Arthritis M19.90 [facility] [id number] [place] [address] 30588- 2529 Jul, Generalized anxiety disorder F41.1 and Mild episode of recurrent major depressive disorder F33.0 [facility] [address] 24657- 5384 Jul, BMI 40.0-44.9, adult Z68.41 ; Mild episode of recurrent major depressive disorder F33.0 and Generalized anxiety disorder F41.1 [facility] [id number] [place] [address] 10585- 5526 Jul, Fibromyalgia M79.7 [facility] [id number] [place] [address] 23947- 6629 Jun, Mild episode of recurrent major depressive disorder F33.0 and Generalized anxiety disorder F41.1 [facility] [id number] [place] [address] 11435- 9750 Jun, Fibromyalgia M79.7 [facility] [id number] [place] [address] 33849- 1974 Jun, Generalized anxiety disorder F41.1 and Mild episode of recurrent major depressive disorder F33.0 [facility] [id number] [place] [address] 09987- 3830 Jun, Generalized anxiety disorder F41.1 and Mild episode of recurrent major depressive disorder F33.0 [facility] [id number] [place] [address] 39629- 8128 Jun, Generalized anxiety disorder F41.1 and Mild episode of recurrent major depressive disorder F33.0 [facility] [id number] [place] [address] 98898- 2007 Jun, [facility] [id number] [place] [address] 52546- 2160 Jun, Generalized anxiety disorder F41.1 and Mild episode of recurrent major depressive disorder F33.0 [facility] [id number] [place] [address] 99393- 4325 May, Fibromyalgia M79.7 [facility] [id number] [place] [address] 50268- 0901 May, Generalized anxiety disorder F41.1 and Mild episode of recurrent major depressive disorder F33.0 [facility] [id number] [place] [address] 33621- 3854 May, Mixed hyperlipidemia E78.2 ; Arthritis M19.90 ; Reactive depression F32.9 and Hypothyroidism, unspecified type E03.9 [facility] [address] [place] [address] 71162- 4681 May, Arthritis M19.90 ; Reactive depression F32.9 ; Mixed hyperlipidemia E78.2 and Hypothyroidism, unspecified type E03.9 [facility] [address], [place] [address]- 1833 Apr, Fibromyalgia M79.7 [facility] [id number] [place] [address] 21783- 3126 Apr, [facility] [id number] [place] [address] 06461- 6237 Apr, Fibromyalgia M79.7 [facility] [id number] [place] [address] 34104- 8961 Mar, Fibromyalgia M79.7 [facility] [address] 88151- 3707 Mar, [facility] [address] 55658- 4742 Mar, Fibromyalgia M79.7 [facility] [address] 16980- 5382 Mar, [facility] [address] 44257- 0178 Feb, Reflex sympathetic dystrophy G90.50 ; Right arm pain M79.601 and Fibromyalgia M79.7 [facility] [address] 89618- 8736 Feb, [facility] [address] 76162- 0681 Feb, Anxiety F41.9 [facility] [address] 60040- 6251 06 Feb, 2017 Fibromyalgia M79.7 [facility] [address] 82701- 3278 Feb, [facility] [id number] [place] [address] 96325- 0397 Feb, [facility] [id number] [place] [address] 59217- 2994 Jan, Temporal headache R51 [facility] [id number] [place] [address] 49871- 2971 Jan, Fibromyalgia M79.7 [facility] [address] 41185- 6863 Dec, Fibromyalgia M79.7 [facility] [id number] [place] [address] 85532- 8112 Nov, Peroneal tendonitis, unspecified laterality M76.70 and Plantar fasciitis, bilateral M72.2 [facility] [id number] [place] [address] 85972- 4146 Nov, Fibromyalgia M79.7 [facility] [address] 49788- 5495 October, Fibromyalgia M79.7 [facility] [address] 63233- 0042 October, Plantar fasciitis, bilateral M72.2 and Peroneal tendonitis, unspecified laterality M76.70 [facility] [address] 07956- 3368 October, Fibromyalgia M79.7 [facility] [address] 78703- 7902 Sep, Anxiety F41.9 [facility] [address] 66680- 0246 Aug, Anxiety F41.9 and Adjustment disorder with anxiety F43.22 [facility] [id number] [place] [address] 78742- 0074 Aug, Pain of left foot M79.672 [facility] [id number] [place] [address] 93730- 0178 Aug, Pain of left foot M79.672 and Pain in right foot M79.671 [facility] [id number] [place] [address] 17702- 9811 Aug, Arthritis M19.90 ; Reactive depression F32.9 ; Fibromyalgia M79.7 ; Rosacea L71.9 ; Pain in right foot M79.671 and Pain of left foot M79.672 [facility] [id number] [place] [address] 30452- 0151 Aug, Anxiety F41.9 ; Adjustment disorder with anxiety F43.22 and Reactive depression F32.9 [facility] [id number] [place] [address] 81101- 1063 Aug, Right elbow pain M25.521 [place] [facility] [address] 03995- 2701 Aug, Plantar wart of right foot B07.0 and Actinic keratosis L57.0 [facility] [id number] [place] [address] 36523- 3169 Aug, Fibromyalgia M79.7 [facility] [address] 51226- 9029 Jul, Arthritis M19.90 ; Hypothyroidism, unspecified type E03.9 ; Reactive depression F32.9 and Venous insufficiency I87.2 [facility] [address] 98562- 4839 Jul, Gastroesophageal reflux disease, esophagitis presence not specified K21.9 [facility] [address] 03864- 0655 Jul, Reflex sympathetic dystrophy G90.50 [facility] [address] 27781- 7373 Jul, Anxiety F41.9 ; Adjustment disorder with anxiety F43.22 and Reactive depression F32.9 [facility] [id number] [place] [address] 24669- 2598 Jul, [facility] [id number] [place] [address] 09515- 8644 Jul, Right elbow pain M25.521 [facility] [address] 41265- 4513 Jun, Fibromyalgia M79.7 [facility] [address] 72380- 9424 Jun, Anxiety F41.9 ; Adjustment disorder with anxiety F43.22 and Reactive depression F32.9 [facility] [id number] [place] [address] 89105- 0982 Jun, [facility] [id number] [place] [address] 67359- 7876 Jun, Atypical chest pain R07.89 and Adjustment disorder with anxiety F43.22 [facility] [address] [id number] Jun, Chest pain, unspecified type R07.9 [place] [facility] [address] 85497- 1362 Jun, Fibromyalgia M79.7 [facility] [address] 86099- 4100 May, Anxiety F41.9 [facility] [address] 33200- 4042 May, [facility] [address] 08122- 7376 May, Right elbow pain M25.521 [facility] [address] 33680- 6665 Apr, Reflex sympathetic dystrophy G90.50 and Encounter for immunization Z23 [facility] [address] 10736- 5805 Apr, [facility] [address] 12559- 4717 Mar, [facility] [id number] [place] [address] 68969- 2183 Feb, [facility] [address] 25944- 8783 Feb, [facility] [address] 49758- 8737 Jan, [facility] [address] 52635- 8926 Jan, Right elbow pain M25.521 and Right wrist pain M25.531 [facility] [address] [place] [address]- 5435 Jan, [facility] [address] [place] [address]- 6136 Dec, Seborrheic keratoses L82.1 [facility] [address], [place] [address]- 9876 Dec, [facility] [id number] [place] [address] 27778- 1359 Dec, [facility] [id number] [place] [address] 91119- 4608 Dec, [facility] [id number] [place] [address] 75194- 3527 Dec, Fibromyalgia M79.7 and Hypothyroidism, unspecified type E03.9 [facility] [id number] [place] [address] 94455- 4417 Dec, Seborrheic keratoses L82.1 [facility] [address] [place] [address] 66459- 3798 Dec, [facility] [id number] [place] [address] 73004- 9812 Dec, [facility] [address], [place] [address]- 4154 Nov, Sebaceous cyst L72.3 [facility] [id number] [place] [address] 01749- 1468 October, Breast cancer screening Z12.39 [facility] [address], [place] [address]- 0288 October, Fibromyalgia M79.7 ; Hypothyroidism, unspecified type E03.9 and Reflex sympathetic dystrophy G90.50 [facility] [address], [place] [address]- 6409 October, Reflex sympathetic dystrophy G90.50 ; Fibromyalgia M79.7 and Hypothyroidism, unspecified type E03.9 IMMUNIZATIONS No Known Immunizations SOCIAL HISTORY Never Assessed REASON FOR VISIT Hydrocodone 09/09 PLAN OF CARE VITAL SIGNS MEDICATIONS Medication [...] Pain-[facility] 07/02/16 Hospitalization History Chest Pain - [facility] 10/06/17
--- OUTSIDE RECORDS SUMMARY | 2018-03-07 17:57 | XMS REPORT ---
Author Author JOE BAI [facility] Address [address] [place] [address] Care Team Providers Care Operations Agent Name Role Phone JOE BAI Unavailable PROBLEMS Type Condition ICD9-CM Code [id number] Code Onset Dates Condition Status SNOMED Code Problem Reactive depression F32.9 Active 25364617 Problem Plantar wart of right foot B07.0 Active 37863053 Problem Gastroesophageal reflux disease, esophagitis presence not specified K21.9 Active 688025373 Problem Internal derangement of right knee M23.91 Active [id number] Problem Abnormal laboratory test R89.9 Active 660449938 Problem Mixed hyperlipidemia E78.2 Active 463579619 Problem Rosacea L71.9 Active 308326923 Problem Mild episode of recurrent major depressive disorder F33.0 Active 987197212 Problem Generalized anxiety disorder F41.1 Active 46068483 Problem Hypothyroidism, unspecified type E03.9 Active 37021594 Problem Right elbow pain M25.521 Active 38061718 Problem Right wrist pain M25.531 Active 67528312 Problem Reflex sympathetic dystrophy G90.50 Active 40484128 Problem Venous insufficiency I87.2 Active 54126154 Problem Fibromyalgia M79.7 Active 580035266 Problem Arthritis M19.90 Active 4247091 ALLERGIES No Information ENCOUNTERS Encounter Location Date Diagnosis [facility] [address] [address] Jan, [facility] [id number] [place] [address] 88427- 1661 Jan, [facility] [id number] [place] [address] 94543- 7721 Jan, [facility] [address] [address] 1544 Jan, [facility] [address] [address] 4864 Dec, [facility] [id number] [place] [address] 16960- 8655 Dec, [facility] [id number] [place] [address] 15252- 1815 Dec, Fibromyalgia M79.7 [facility] [id number] [place] [address] 94234- 8356 Dec, Bronchitis J40 and Internal derangement of right knee M23.91 [facility] [id number] [place] [address] 63875 -1617 Dec, Cough R05 [facility] [id number] [place] [address] 77153- 4247 Dec, Generalized anxiety disorder F41.1 and Mild episode of recurrent major depressive disorder F33.0 [facility] [id number] [place] [address] 87527- 2595 Dec, [facility] [id number] [place] [address] 89576 -3392 Dec, [facility] [id number] [place] [address] 71306- 7569 Dec, Mild episode of recurrent major depressive disorder F33.0 and Generalized anxiety disorder F41.1 [facility] [id number] [place] [address] 44163- 6274 Nov, [facility] [id number] [place] [address] 06971- 6107 Nov, [facility] [id number] [place] [address] 99376- 7542 Nov, [facility] [id number] [place] [address] 48682- 7713 Nov, Internal derangement of right knee M23.91 [facility] [id number] [place] [address] 88719- 5950 Nov, Generalized anxiety disorder F41.1 and Mild episode of recurrent major depressive disorder F33.0 [facility] [id number] [place] [address] 63959- 1791 22 Nov, 2017 Internal derangement of right knee M23.91 [facility] [id number] [place] [address] 97667 -8846 19 Nov, 2017 Acute right ankle pain M25.571 ; Acute pain of right knee M25.561 ; Acute left-sided low back pain without sciatica M54.5 and Right leg pain M79.604 [facility] [id number] [place] [address] 51107- 9413 15 Nov, 2017 [facility] [id number] [place] [address] 56112- 9845 Nov, Fibromyalgia M79.7 [facility] [id number] [place] [address] 76870- 4326 Nov, Generalized anxiety disorder F41.1 and Mild episode of recurrent major depressive disorder F33.0 [facility] [id number] [place] [address] 31611- 8625 Nov, [facility] [id number] [place] [address] 02960- 4395 October, Generalized anxiety disorder F41.1 and Mild episode of recurrent major depressive disorder F33.0 [facility] [id number] [place] [address] 49612- 7595 October, Fibromyalgia M79.7 [facility] [address], [place] [address] 3982 October, [facility] [id number] [place] [address] 09696- 8970 October, Generalized anxiety disorder F41.1 and Mild episode of recurrent major depressive disorder F33.0 [facility] [id number] [place] [address] 59485- 1930 October, [facility] [id number] [place] [address] 13541- 9371 Sep, Gastroesophageal reflux disease, esophagitis presence not specified K21.9 and Abnormal laboratory test R89.9 [facility] [id number] [place] [address] 98150- 5097 Sep, Fibromyalgia M79.7 [facility] [address] 77103- 1847 Sep, Generalized anxiety disorder F41.1 and Mild episode of recurrent major depressive disorder F33.0 [facility] [address] 45186- 5336 Sep, Epigastric pain R10.13 [facility] [id number] [place] [address] 04817- 6665 Sep, Mild episode of recurrent major depressive disorder F33.0 and Generalized anxiety disorder F41.1 [facility] [id number] [place] [address] 57014- 2250 Sep, Abnormal laboratory test R89.9 [facility] [address] 72811- 9550 Sep, Generalized anxiety disorder F41.1 and Mild episode of recurrent major depressive disorder F33.0 [facility] [id number] [place] [address] 24109- 2154 Aug, Epigastric pain R10.13 and Encounter for therapeutic drug level monitoring Z51.81 [facility] [id number] [place] [address] 54351 -3043 Aug, Epigastric pain R10.13 and Gastro-esophageal reflux disease without esophagitis K21.9 [facility] [id number] [place] [address] 09954- 7878 Aug, [facility] [id number] [place] [address] 37953- 6792 Aug, Epigastric pain R10.13 [facility] [id number] [place] [address] 53932- 6943 Aug, Fibromyalgia M79.7 [facility] [id number] [place] [address] 23111- 5262 Aug, [facility] [address] 52119- 8133 Aug, Generalized anxiety disorder F41.1 and Mild episode of recurrent major depressive disorder F33.0 [facility] [address] 61262- 1699 08 Aug, 2017 Epigastric pain R10.13 ; Reflex sympathetic dystrophy G90.50 and Arthritis M19.90 [facility] [id number] [place] [address] 48439- 2718 Jul, Generalized anxiety disorder F41.1 and Mild episode of recurrent major depressive disorder F33.0 [facility] [address] 19006- 9489 Jul, BMI 40.0-44.9, adult Z68.41 ; Mild episode of recurrent major depressive disorder F33.0 and Generalized anxiety disorder F41.1 [facility] [id number] [place] [address] 34507- 8561 Jul, Fibromyalgia M79.7 [facility] [id number] [place] [address] 43440- 5824 Jun, Mild episode of recurrent major depressive disorder F33.0 and Generalized anxiety disorder F41.1 [facility] [id number] [place] [address] 77431- 5561 Jun, Fibromyalgia M79.7 [facility] [id number] [place] [address] 35997- 2745 Jun, Generalized anxiety disorder F41.1 and Mild episode of recurrent major depressive disorder F33.0 [facility] [id number] [place] [address] 71415- 5851 Jun, Generalized anxiety disorder F41.1 and Mild episode of recurrent major depressive disorder F33.0 [facility] [id number] [place] [address] 66602- 3827 Jun, Generalized anxiety disorder F41.1 and Mild episode of recurrent major depressive disorder F33.0 [facility] [id number] [place] [address] 80238- 8850 Jun, [facility] [id number] [place] [address] 48326- 0206 Jun, Generalized anxiety disorder F41.1 and Mild episode of recurrent major depressive disorder F33.0 [facility] [id number] [place] [address] 97029- 1639 May, Fibromyalgia M79.7 [facility] [id number] [place] [address] 50756- 5927 May, Generalized anxiety disorder F41.1 and Mild episode of recurrent major depressive disorder F33.0 [facility] [id number] [place] [address] 30202- 2393 May, Mixed hyperlipidemia E78.2 ; Arthritis M19.90 ; Reactive depression F32.9 and Hypothyroidism, unspecified type E03.9 [facility] [id number] [place] [address] 60768- 1172 May, Arthritis M19.90 ; Reactive depression F32.9 ; Mixed hyperlipidemia E78.2 and Hypothyroidism, unspecified type E03.9 [facility] [address], [place] [address]- 3729 Apr, Fibromyalgia M79.7 [facility] [id number] [place] [address] 51887- 8056 Apr, [facility] [id number] [place] [address] 23177- 6393 Apr, Fibromyalgia M79.7 [facility] [id number] [place] [address] 94498- 3876 Mar, Fibromyalgia M79.7 [facility] [address] 22459- 7169 Mar, [facility] [address] 61228- 3933 Mar, Fibromyalgia M79.7 [facility] [address] 94942- 7426 Mar, [facility] [address] 14113- 2875 Feb, Reflex sympathetic dystrophy G90.50 ; Right arm pain M79.601 and Fibromyalgia M79.7 [facility] [address] 65084- 4078 Feb, [facility] [address] 93504- 3305 Feb, Anxiety F41.9 [facility] [address] 83244- 1775 06 Feb, 2017 Fibromyalgia M79.7 [facility] [address] 23252- 9534 Feb, [facility] [id number] [place] [address] 89069- 3847 Feb, [facility] [id number] [place] [address] 05781- 1236 Jan, Temporal headache R51 [facility] [id number] [place] [address] 42540- 9030 Jan, Fibromyalgia M79.7 [facility] [address] 19123- 4110 Dec, Fibromyalgia M79.7 [facility] [id number] [place] [address] 67442- 0428 Nov, Peroneal tendonitis, unspecified laterality M76.70 and Plantar fasciitis, bilateral M72.2 [facility] [id number] [place] [address] 27325- 9777 Nov, Fibromyalgia M79.7 [facility] [address] 48490- 5622 October, Fibromyalgia M79.7 [facility] [address] 79938- 1874 October, Plantar fasciitis, bilateral M72.2 and Peroneal tendonitis, unspecified laterality M76.70 [facility] [address] 05371- 5130 October, Fibromyalgia M79.7 [facility] [address] 80489- 0512 Sep, Anxiety F41.9 [facility] [address] 58086- 5859 Aug, Anxiety F41.9 and Adjustment disorder with anxiety F43.22 [facility] [id number] [place] [address] 99111- 9175 Aug, Pain of left foot M79.672 [facility] [id number] [place] [address] 34203- 8046 Aug, Pain of left foot M79.672 and Pain in right foot M79.671 [facility] [id number] [place] [address] 68150- 6779 Aug, Arthritis M19.90 ; Reactive depression F32.9 ; Fibromyalgia M79.7 ; Rosacea L71.9 ; Pain in right foot M79.671 and Pain of left foot M79.672 [facility] [id number] [place] [address] 74768- 7988 Aug, Anxiety F41.9 ; Adjustment disorder with anxiety F43.22 and Reactive depression F32.9 [facility] [id number] [place] [address] 08340- 1326 Aug, Right elbow pain M25.521 [facility] [address] 50652- 5520 Aug, Plantar wart of right foot B07.0 and Actinic keratosis L57.0 [facility] [id number] [place] [address] 87299- 1242 Aug, Fibromyalgia M79.7 [facility] [address] 37833- 9931 Jul, Arthritis M19.90 ; Hypothyroidism, unspecified type E03.9 ; Reactive depression F32.9 and Venous insufficiency I87.2 [facility] [address] 72105- 3116 Jul, Gastroesophageal reflux disease, esophagitis presence not specified K21.9 [facility] [address] 14940- 3609 Jul, Reflex sympathetic dystrophy G90.50 [facility] [address] 76951- 9175 Jul, Anxiety F41.9 ; Adjustment disorder with anxiety F43.22 and Reactive depression F32.9 [facility] [id number] [place] [address] 40433- 6964 Jul, [facility] [id number] [place] [address] 23446- 8786 Jul, Right elbow pain M25.521 [facility] [address] 15241- 4981 Jun, Fibromyalgia M79.7 [facility] [address] 46440- 7280 Jun, Anxiety F41.9 ; Adjustment disorder with anxiety F43.22 and Reactive depression F32.9 [facility] [id number] [place] [address] 46105- 2682 Jun, [facility] [id number] [place] [address] 38084- 6096 Jun, Atypical chest pain R07.89 and Adjustment disorder with anxiety F43.22 [facility] [address] [id number] Jun, Chest pain, unspecified type R07.9 [facility] [address] 33493- 9534 Jun, Fibromyalgia M79.7 [facility] [address] 99689- 3422 May, Anxiety F41.9 [facility] [address] 76088- 2674 May, [facility] [address] 63718- 8698 May, Right elbow pain M25.521 [facility] [address] 28860- 8320 Apr, Reflex sympathetic dystrophy G90.50 and Encounter for immunization Z23 [facility] [address] 96586- 5400 Apr, [facility] [address] 69657- 5460 Mar, [facility] [id number] [place] [address] 64897- 9061 Feb, [facility] [address] 29069- 6013 Feb, [facility] [address] 95127- 5693 Jan, [facility] [address] 47576- 4299 Jan, Right elbow pain M25.521 and Right wrist pain M25.531 [facility] [address] [place] [address]- 1006 Jan, [facility] [address], [place] [address]- 8656 Dec, Seborrheic keratoses L82.1 [facility] [address], [place] [address]- 7126 Dec, [facility] [id number] [place] [address] 57344- 1516 Dec, [facility] [id number] [place] [address] 82359- 3144 Dec, [facility] [id number] [place] [address] 89700- 9130 Dec, Fibromyalgia M79.7 and Hypothyroidism, unspecified type E03.9 [facility] [id number] [place] [address] 18017- 5193 Dec, Seborrheic keratoses L82.1 [facility] [id number] [place] [address] 98778- 4243 Dec, [facility] [id number] [place] [address] 65670- 3446 Dec, [facility] [address], [place] [address]- 1439 Nov, Sebaceous cyst L72.3 [facility] [id number] [place] [address] 73462- 6808 October, Breast cancer screening Z12.39 [facility] [address], [place] [address]- 4016 October, Fibromyalgia M79.7 ; Hypothyroidism, unspecified type E03.9 and Reflex sympathetic dystrophy G90.50 [facility] [address], [place] [address]- 2228 October, Reflex sympathetic dystrophy G90.50 ; Fibromyalgia M79.7 and Hypothyroidism, unspecified type E03.9 IMMUNIZATIONS No Known Immunizations SOCIAL HISTORY Never Assessed REASON FOR VISIT med refill PLAN OF CARE VITAL SIGNS MEDICATIONS Medication Instructions Dosage Frequency Start Date End Date Duration Status Pantoprazole Sodium 40MG Orally Once a day 1 tablet 24h 90 Active RESULTS No Results PROCEDURES No [...] Pain-VC 07/02/16 Hospitalization History Chest Pain - [facility] 10/06/17
--- OUTSIDE RECORDS SUMMARY | 2018-03-07 17:58 | XMS REPORT ---
Author Author JOE BAI [facility] Address [address] [place] [address] Care Team Providers Care Payroll Tax Analyst Name Role Phone JOE BAI Unavailable PROBLEMS Type Condition ICD9-CM Code TNA37-YN Code Onset Dates Condition Status SNOMED Code Problem Reactive depression F32.9 Active 92573784 Problem Plantar wart of right foot B07.0 Active 23646405 Problem Gastroesophageal reflux disease, esophagitis presence not specified K21.9 Active 237377074 Problem Internal derangement of right knee M23.91 Active [id number] Problem Abnormal laboratory test R89.9 Active 064144172 Problem Mixed hyperlipidemia E78.2 Active 644210064 Problem Rosacea L71.9 Active 464866240 Problem Mild episode of recurrent major depressive disorder F33.0 Active 165609036 Problem Generalized anxiety disorder F41.1 Active 09618312 Problem Hypothyroidism, unspecified type E03.9 Active 14321702 Problem Right elbow pain M25.521 Active 75641649 Problem Right wrist pain M25.531 Active 43555621 Problem Reflex sympathetic dystrophy G90.50 Active 46778489 Problem Venous insufficiency I87.2 Active 83798385 Problem Fibromyalgia M79.7 Active 320093331 Problem Arthritis M19.90 Active 7176459 ALLERGIES No Information ENCOUNTERS Encounter Location Date Diagnosis [facility] [address], [place] [address] Jan, [facility] [id number] [place] [address] 67768- 8360 Jan, [facility] [id number] [place] [address] 20710- 0700 Jan, [facility] [address], [place] [address] Jan, [facility] [address] [address] Dec, [facility] [id number] [place] [address] 13101- 1158 Dec, [facility] [id number] [place] [address] 08132- 4249 Dec, Fibromyalgia M79.7 [facility] [id number] [facility] [address] 04010- 9434 Dec, Bronchitis J40 and Internal derangement of right knee M23.91 [facility] [id number] [facility] [address] 28768 -1258 Dec, Cough R05 [facility] [id number] [facility] [place] [address] 17724- 1906 Dec, Generalized anxiety disorder F41.1 and Mild episode of recurrent major depressive disorder F33.0 [facility] [id number] [facility] [place] [address] 54072- 2325 Dec, [facility] [id number] [place] [address] 76723 -7223 Dec, [facility] [id number] [facility] [place] [address] 40660- 5059 Dec, Mild episode of recurrent major depressive disorder F33.0 and Generalized anxiety disorder F41.1 [facility] [id number] [facility] [place] [address] 68490- 9063 Nov, [facility] [id number] [facility] [place] [address] 45082- 6215 Nov, [facility] [id number] [facility] [place] [address] 93259- 0201 Nov, [facility] [id number] [facility] [place] [address] 01921- 4907 Nov, Internal derangement of right knee M23.91 [facility] [id number] [facility] [place] [address] 81133- 6529 Nov, Generalized anxiety disorder F41.1 and Mild episode of recurrent major depressive disorder F33.0 [facility] [id number] [facility] [place] [address] 57979- 6858 22 Nov, 2017 Internal derangement of right knee M23.91 [facility] [id number] [facility] [address] 93294 -6840 19 Nov, 2017 Acute right ankle pain M25.571 ; Acute pain of right knee M25.561 ; Acute left-sided low back pain without sciatica M54.5 and Right leg pain M79.604 [facility] [id number] [facility] [place] [address] 10029- 1345 15 Nov, 2017 [facility] [id number] [facility] [place] [address] 55583- 8528 Nov, Fibromyalgia M79.7 [facility] [id number] [facility] [place] [address] 02277- 0446 Nov, Generalized anxiety disorder F41.1 and Mild episode of recurrent major depressive disorder F33.0 [facility] [id number] [facility] [place] [address] 14739- 2802 Nov, [facility] [id number] [facility] [address] 49562- 8101 October, Generalized anxiety disorder F41.1 and Mild episode of recurrent major depressive disorder F33.0 [facility] [id number] [facility] [place] [address] 07353- 5521 October, Fibromyalgia M79.7 [facility] [address], [place] [address] 4451 October, [facility] [id number] [facility] [place] [address] 36687- 2269 October, Generalized anxiety disorder F41.1 and Mild episode of recurrent major depressive disorder F33.0 [facility] [id number] [facility] [place] [address] 86453- 9577 October, [facility] [id number] [facility] [place] [address] 98459- 7252 Sep, Gastroesophageal reflux disease, esophagitis presence not specified K21.9 and Abnormal laboratory test R89.9 [facility] [id number] [facility] [place] [address] 01291- 5354 Sep, Fibromyalgia M79.7 [facility] [address] 47767- 5932 Sep, Generalized anxiety disorder F41.1 and Mild episode of recurrent major depressive disorder F33.0 [facility] [address] 12883- 8496 Sep, Epigastric pain R10.13 [facility] [id number] [facility] [place] [address] 65596- 1465 Sep, Mild episode of recurrent major depressive disorder F33.0 and Generalized anxiety disorder F41.1 [facility] [id number] [facility] [place] [address] 73080- 9623 Sep, Abnormal laboratory test R89.9 [facility] [address] 21936- 0624 Sep, Generalized anxiety disorder F41.1 and Mild episode of recurrent major depressive disorder F33.0 [facility] [id number] [facility] [address] 60898- 7145 Aug, Epigastric pain R10.13 and Encounter for therapeutic drug level monitoring Z51.81 [facility] [id number] [facility] [place] [address] 37401 -7283 Aug, Epigastric pain R10.13 and Gastro-esophageal reflux disease without esophagitis K21.9 [facility] [id number] [facility] [place] [address] 75189- 0589 Aug, [facility] [id number] [facility] [place] [address] 76565- 8898 Aug, Epigastric pain R10.13 [facility] [id number] [facility] [place] [address] 23838- 6020 Aug, Fibromyalgia M79.7 [facility] [id number] [facility] [place] [address] 37415- 6245 Aug, [facility] [address] 04762- 6488 Aug, Generalized anxiety disorder F41.1 and Mild episode of recurrent major depressive disorder F33.0 [facility] [address] 49821- 6366 08 Aug, 2017 Epigastric pain R10.13 ; Reflex sympathetic dystrophy G90.50 and Arthritis M19.90 [facility] [id number] [facility] [place] [address] 79687- 9991 Jul, Generalized anxiety disorder F41.1 and Mild episode of recurrent major depressive disorder F33.0 [facility] [address] 44917- 9056 Jul, BMI 40.0-44.9, adult Z68.41 ; Mild episode of recurrent major depressive disorder F33.0 and Generalized anxiety disorder F41.1 [facility] [id number] [facility] [place] [address] 21277- 0874 Jul, Fibromyalgia M79.7 [facility] [id number] [facility] [place] [address] 00324- 8854 Jun, Mild episode of recurrent major depressive disorder F33.0 and Generalized anxiety disorder F41.1 [facility] [id number] [facility] [place] [address] 50810- 1638 Jun, Fibromyalgia M79.7 [facility] [id number] [facility] [place] [address] 02659- 6031 Jun, Generalized anxiety disorder F41.1 and Mild episode of recurrent major depressive disorder F33.0 [facility] [id number] [facility] [place] [address] 05841- 1020 Jun, Generalized anxiety disorder F41.1 and Mild episode of recurrent major depressive disorder F33.0 [facility] [id number] [facility] [address] 79609- 1097 Jun, Generalized anxiety disorder F41.1 and Mild episode of recurrent major depressive disorder F33.0 [facility] [id number] [facility] [place] [address] 82749- 5303 Jun, [facility] [id number] [facility] [place] [address] 58427- 4889 Jun, Generalized anxiety disorder F41.1 and Mild episode of recurrent major depressive disorder F33.0 [facility] [id number] [facility] [place] [address] 47264- 5529 May, Fibromyalgia M79.7 [facility] [id number] [facility] [place] [address] 35535- 2011 May, Generalized anxiety disorder F41.1 and Mild episode of recurrent major depressive disorder F33.0 [facility] [id number] [facility] [address] 36131- 9205 May, Mixed hyperlipidemia E78.2 ; Arthritis M19.90 ; Reactive depression F32.9 and Hypothyroidism, unspecified type E03.9 [facility] [id number] [facility] [address] 65769- 3755 May, Arthritis M19.90 ; Reactive depression F32.9 ; Mixed hyperlipidemia E78.2 and Hypothyroidism, unspecified type E03.9 [facility] [address], [place] [address]- 3167 Apr, Fibromyalgia M79.7 [facility] [id number] [facility] [address] 31390- 3256 Apr, [facility] [id number] [facility] [place] [address] 81910- 0923 Apr, Fibromyalgia M79.7 [facility] [id number] [facility] [address] 12545- 1695 Mar, Fibromyalgia M79.7 [facility] [address] 40002- 2156 Mar, [facility] [address] 46318- 5965 Mar, Fibromyalgia M79.7 [facility] [address] 25484- 4866 Mar, [facility] [address] 97626- 3398 Feb, Reflex sympathetic dystrophy G90.50 ; Right arm pain M79.601 and Fibromyalgia M79.7 [facility] [address] 34231- 9099 Feb, [facility] [address] 22169- 5916 Feb, Anxiety F41.9 [facility] [address] 41706- 2633 06 Feb, 2017 Fibromyalgia M79.7 [facility] [address] 18363- 4035 Feb, [facility] [id number] [facility] [address] 66944- 5952 Feb, [facility] [id number] [facility] [place] [address] 98284- 5518 Jan, Temporal headache R51 [facility] [id number] [facility] [place] [address] 16802- 3449 Jan, Fibromyalgia M79.7 [facility] [address] 47368- 4225 Dec, Fibromyalgia M79.7 [facility] [id number] [facility] [place] [address] 93357- 6781 Nov, Peroneal tendonitis, unspecified laterality M76.70 and Plantar fasciitis, bilateral M72.2 [facility] [id number] [facility] [address] 37426- 3932 Nov, Fibromyalgia M79.7 [facility] [address] 19104- 9026 October, Fibromyalgia M79.7 [facility] [address] 72228- 6218 October, Plantar fasciitis, bilateral M72.2 and Peroneal tendonitis, unspecified laterality M76.70 [facility] [address] 07954- 0341 October, Fibromyalgia M79.7 [facility] [address] 25299- 6640 Sep, Anxiety F41.9 [facility] [address] 64449- 1479 Aug, Anxiety F41.9 and Adjustment disorder with anxiety F43.22 [facility] [id number] [facility] [place] [address] 42094- 6932 Aug, Pain of left foot M79.672 [facility] [id number] [facility] [place] [address] 73797- 3558 Aug, Pain of left foot M79.672 and Pain in right foot M79.671 [facility] [id number] [facility] [address] 16060- 5842 Aug, Arthritis M19.90 ; Reactive depression F32.9 ; Fibromyalgia M79.7 ; Rosacea L71.9 ; Pain in right foot M79.671 and Pain of left foot M79.672 [facility] [id number] [facility] [address] 26615- 3254 Aug, Anxiety F41.9 ; Adjustment disorder with anxiety F43.22 and Reactive depression F32.9 [facility] [id number] [facility] [address] 50912- 5213 Aug, Right elbow pain M25.521 [facility] [address] 43774- 4373 Aug, Plantar wart of right foot B07.0 and Actinic keratosis L57.0 [facility] [id number] [facility] [address] 91270- 0906 Aug, Fibromyalgia M79.7 [facility] [address] 82768- 8516 Jul, Arthritis M19.90 ; Hypothyroidism, unspecified type E03.9 ; Reactive depression F32.9 and Venous insufficiency I87.2 [facility] [address] 71356- 9365 Jul, Gastroesophageal reflux disease, esophagitis presence not specified K21.9 [facility] [facility] [address] 22765- 1322 Jul, Reflex sympathetic dystrophy G90.50 [facility] [address] 65017- 6564 Jul, Anxiety F41.9 ; Adjustment disorder with anxiety F43.22 and Reactive depression F32.9 [facility] [id number] [facility] [address] 26778- 0883 Jul, [facility] [id number] [facility] [place] [address] 67920- 4247 Jul, Right elbow pain M25.521 [facility] [address] 97885- 1462 Jun, Fibromyalgia M79.7 [facility] [address] 81036- 4092 Jun, Anxiety F41.9 ; Adjustment disorder with anxiety F43.22 and Reactive depression F32.9 [facility] [id number] [facility] [place] [address] 05159- 0079 Jun, [facility] [id number] [facility] [place] [address] 40236- 4146 Jun, Atypical chest pain R07.89 and Adjustment disorder with anxiety F43.22 [facility] [place] [address] [id number] Jun, Chest pain, unspecified type R07.9 [place] [address] 48844- 2028 Jun, Fibromyalgia M79.7 [facility] [address] 74452- 1880 May, Anxiety F41.9 [facility] [address] 05980- 1659 May, [facility] [address] 56631- 6461 May, Right elbow pain M25.521 [facility] [address] 78861- 8968 Apr, Reflex sympathetic dystrophy G90.50 and Encounter for immunization Z23 [facility] [facility] [address] 13473- 8264 Apr, [facility] [address] 70228- 6781 Mar, [facility] [id number] [facility] [place] [address] 78328- 8736 Feb, [facility] [address] 96199- 6873 Feb, [facility] [address] 43258- 5478 Jan, [facility] [address] 37063- 7267 Jan, Right elbow pain M25.521 and Right wrist pain M25.531 [place] [address] [place] [address]- 3365 Jan, [facility] [address], [place] [address]- 4346 Dec, Seborrheic keratoses L82.1 [facility] [address], [place] [address]- 2626 Dec, [facility] [id number] [facility] [place] [address] 67479- 4812 Dec, [facility] [id number] [facility] [place] [address] 80506- 9426 Dec, [facility] [id number] [facility] [place] [address] 03385- 5067 Dec, Fibromyalgia M79.7 and Hypothyroidism, unspecified type E03.9 [facility] [id number] [facility] [place] [address] 94016- 6815 Dec, Seborrheic keratoses L82.1 [facility] [id number] [facility] [address] 94820- 0742 Dec, [facility] [id number] [facility] [place] [address] 17664- 5886 Dec, [facility] [address], [place] [address]- 9111 Nov, Sebaceous cyst L72.3 [facility] [id number] [facility] [address] 23122- 5245 October, Breast cancer screening Z12.39 [facility] [address], [place] [address]- 6082 October, Fibromyalgia M79.7 ; Hypothyroidism, unspecified type E03.9 and Reflex sympathetic dystrophy G90.50 [facility] [address], [place] [address]- 2485 October, Reflex sympathetic dystrophy G90.50 ; Fibromyalgia M79.7 and Hypothyroidism, unspecified type E03.9 IMMUNIZATIONS No Known Immunizations SOCIAL HISTORY Never Assessed REASON FOR VISIT Prior Authorization Initated-- Denied PLAN OF CARE VITAL SIGNS MEDICATIONS Unknown [...] resection Hospitalization History surgeries Hospitalization History Chest [facility] 07/02/16 Hospitalization History Chest Pain - [facility] 10/06/17
--- OUTSIDE RECORDS SUMMARY | 2018-03-07 17:58 | XMS REPORT ---
Author Author FRANK CHAPMAN Organization [facility] Address [address] [place] [address] Care Team Providers [employer] Name Role Phone FRANK CHAPMAN Unavailable PROBLEMS Type Condition ICD9-CM Code VRQ22-XE Code Onset Dates Condition Status SNOMED Code Problem Reactive depression F32.9 Active 02941301 Problem Plantar wart of right foot B07.0 Active 84452225 Problem Gastroesophageal reflux disease, esophagitis presence not specified K21.9 Active 434612921 Problem Internal derangement of right knee M23.91 Active 230075866027719 Problem Abnormal laboratory test R89.9 Active 945220465 Problem Mixed hyperlipidemia E78.2 Active 428284275 Problem Rosacea L71.9 Active 904326269 Problem Mild episode of recurrent major depressive disorder F33.0 Active 259989172 Problem Generalized anxiety disorder F41.1 Active 27360858 Problem Hypothyroidism, unspecified type E03.9 Active 72771838 Problem Right elbow pain M25.521 Active 81713857 Problem Right wrist pain M25.531 Active 15995484 Problem Reflex sympathetic dystrophy G90.50 Active 55120154 Problem Venous insufficiency I87.2 Active 57055996 Problem Fibromyalgia M79.7 Active 100054760 Problem Arthritis M19.90 Active 5286958 ALLERGIES No Information ENCOUNTERS Encounter Location Date Diagnosis [facility] [id number] [address] Jan, [facility] [address] [address] Jan, [facility] [address] [address] Jan, [facility] [address] [address] Jan, [facility] [id number] [address] Dec, [facility] [address] [facility] [id number] [address] Dec, [facility] [address] [facility] [id number] [address] Dec, Cough R05 [facility] [id number] [address] Dec, Generalized anxiety disorder F41.1 and Mild episode of recurrent major depressive disorder F33.0 [facility] [address] [facility] [id number] [address] Dec, [facility] [address] [facility] [id number] [address] Dec, [facility] [address] [address] Dec, Mild episode of recurrent major depressive disorder F33.0 and Generalized anxiety disorder F41.1 [facility] [address] [facility] [id number] [address] Nov, [facility] [id number] [address] Nov, [facility] [id number] [address] Nov, [facility] [id number] [address] Nov, Internal derangement of right knee M23.91 [facility] [address] [facility] [id number] [place] [address] Nov, Generalized anxiety disorder F41.1 and Mild episode of recurrent major depressive disorder F33.0 [facility] [address] [facility] [id number] [place] [address] Nov, Internal derangement of right knee M23.91 [facility] [id number] [place] [address] 19 Nov, 2017 Acute right ankle pain M25.571 ; Acute pain of right knee M25.561 ; Acute left-sided low back pain without sciatica M54.5 and Right leg pain M79.604 [facility] [id number] [place] [address]9465- 0328 15 Nov, 2017 [facility] [id number] [place] [address] 32505- 0620 Nov, Fibromyalgia M79.7 [facility] [id number] [place] [address] 82336- 0874 13 Nov, 2017 Generalized anxiety disorder F41.1 and Mild episode of recurrent major depressive disorder F33.0 [facility] [id number] [place] [address] 05313- 1623 Nov, [facility] [id number] [place] [address] 68780- 5558 October, Generalized anxiety disorder F41.1 and Mild episode of recurrent major depressive disorder F33.0 [place] [id number] [place] [address] 94391- 8060 October, Fibromyalgia M79.7 [facility] [id number] [place] [address] 12832- 9974 October, [facility] [id number] [place] [address] 94830- 3033 October, Generalized anxiety disorder F41.1 and Mild episode of recurrent major depressive disorder F33.0 [facility] [id number] [place] [address] 22765- 6536 October, [facility] [id number] [place] [address] 13973- 7790 Sep, Gastroesophageal reflux disease, esophagitis presence not specified K21.9 and Abnormal laboratory test R89.9 [facility] [id number] [place] [address] 25226- 2463 18 Sep, [address] [facility] [id number] [place] [address] 10666- 0466 17 Sep, 2017 Generalized anxiety disorder F41.1 and Mild episode of recurrent major depressive disorder F33.0 [facility] [id number] [place] [address] 18951- 8315 13 Sep, [address] [facility] [id number] [place] [address] 95655- 1879 10 Sep, 2017 Mild episode of recurrent major depressive disorder F33.0 and Generalized anxiety disorder F41.1 [facility] [address] [address]- [address] 02 Sep, 2017 Abnormal laboratory test R89.9 [facility] [id number] [place] [address] 71629- 9233 Sep, Generalized anxiety disorder F41.1 and Mild episode of recurrent major depressive disorder F33.0 [facility] [id number] [place] [address] 56879- 6436 29 Aug, 2017 Epigastric pain R10.13 and Encounter for therapeutic drug level monitoring Z51.81 [facility] [id number] [place] [address] 25351 -1491 28 Aug, 2017 Epigastric pain R10.13 and Gastro-esophageal reflux disease without esophagitis K21.9 [facility] [id number] [place] [address] 10519- 1755 Aug, [facility] [id number] [place] [address] 91370- 7981 Aug, Epigastric pain R10.13 [facility] [id number] [place] [address] 36372- 4897 20 Aug, [address] [facility] [id number] [place] [address] 94096- 8048 14 Aug, 2017 [facility] [id number] [place] [address] 97873- 0915 14 Aug, 2017 Generalized anxiety disorder F41.1 and Mild episode of recurrent major depressive disorder F33.0 [place] [id number] [place] [address] 02998- 3772 08 Aug, 2017 Epigastric pain R10.13 ; Reflex sympathetic dystrophy G90.50 and Arthritis M19.90 [place] [id number] [place] [address] 31803- 5326 Jul, Generalized anxiety disorder F41.1 and Mild episode of recurrent major depressive disorder F33.0 [place] [address] [address]- 6331 Jul, BMI 40.0-44.9, adult Z68.41 ; Mild episode of recurrent major depressive disorder F33.0 and Generalized anxiety disorder F41.1 [place] [id number] [place] [address] 50331- 6263 Jul, Fibromyalgia M79.7 [place] [address] [address]23- 1847 Jun, Mild episode of recurrent major depressive disorder F33.0 and Generalized anxiety disorder F41.1 [place] [id number] [place] [address] 40132- 1320 Jun, Fibromyalgia M79.7 [place] [id number] [place] [address] 93852- 3211 Jun, Generalized anxiety disorder F41.1 and Mild episode of recurrent major depressive disorder F33.0 [place] [id number] [place] [address] 16865- 5453 Jun, Generalized anxiety disorder F41.1 and Mild episode of recurrent major depressive disorder F33.0 [place] [id number] [place] [address] 26882- 9143 Jun, Generalized anxiety disorder F41.1 and Mild episode of recurrent major depressive disorder F33.0 [address] [place] [address] [place] [address] Jun, [facility] [id number] [place] [address] 49213- 9567 Jun, Generalized anxiety disorder F41.1 and Mild episode of recurrent major depressive disorder F33.0 [facility] [id number] [place] [address] 50220- 0347 May, Fibromyalgia M79.7 [facility] [id number] [place] [address] 33972- 9039 May, Generalized anxiety disorder F41.1 and Mild episode of recurrent major depressive disorder F33.0 [facility] [id number] [place] [address] 28277- 3558 May, Mixed hyperlipidemia E78.2 ; Arthritis M19.90 ; Reactive depression F32.9 and Hypothyroidism, unspecified type E03.9 [facility] [id number] [place] [address] 79467- 5474 May, Arthritis M19.90 ; Reactive depression F32.9 ; Mixed hyperlipidemia E78.2 and Hypothyroidism, unspecified type E03.9 [facility] [id number] [place] [address] 99689- 6306 Apr, Fibromyalgia M79.7 [facility] [id number] [place] [address] 35162- 4718 Apr, [facility] [id number] [place] [address] 91344- 5966 Apr, Fibromyalgia M79.7 [facility] [id number] [place] [address] 49132- 8223 Mar, Fibromyalgia M79.7 [facility] [id number] [place] [address] 06123- 2037 Mar, [facility] [id number] [place] [address] 35192- 5897 Mar, Fibromyalgia M79.7 [facility] [id number] [place] [address] 50909- 0679 Mar, [facility] [address] 9[address]79- 1248 Feb, Reflex sympathetic dystrophy G90.50 ; Right arm pain M79.[address] [facility] [id number] [place] [address] 93283- 6751 Feb, [facility] [address] 42890- 6891 Feb, Anxiety F41.9 [facility] [address] 60893- 7667 Feb, Fibromyalgia M79.7 [facility] [id number] [place] [address] 38959- 5704 Feb, [facility] [address] 6[address]21- [address]12 Feb, [facility] [id number] [place] [address] 18913- 9447 Jan, Temporal headache R51 [facility] [address] 26544- 5393 Jan, Fibromyalgia M79.7 [facility] [id number] [place] [address] 81374- 1670 Dec, Fibromyalgia M79.7 [facility] [id number] [place] [address] 63928- 7655 Nov, Peroneal tendonitis, unspecified laterality M76.70 and Plantar fasciitis, bilateral M72.2 [facility] [address] 29316- 4230 Nov, Fibromyalgia M79.7 [facility] [id number] [place] [address] 87778- 9158 October, Fibromyalgia M79.7 [facility] [address] [place] [address]- 6833 October, Plantar fasciitis, bilateral M72.2 and Peroneal tendonitis, unspecified laterality M76.70 [address] [id number] [place] [address] 82193- 7535 October, Fibromyalgia M79.7 [address] [place] 81854- 1436 Sep, Anxiety F41.9 [address] [place] 17024- 3382 Aug, Anxiety F41.9 and Adjustment disorder with anxiety F43.22 [address] 52885- 7133 Aug, Pain of left foot M79.672 [address] 06878- 5805 Aug, Pain of left foot M79.672 and Pain in right foot M79.671 [address] [place] 16809- 3713 Aug, Arthritis M19.90 ; Reactive depression F32.9 ; Fibromyalgia M79.7 ; Rosacea L71.9 ; Pain in right foot M79.671 and Pain of left foot M79.672 [address] [id number] [place] [address] 06210- 4510 Aug, Anxiety F41.9 ; Adjustment disorder with anxiety F43.22 and Reactive depression F32.9 [address] [id number] [place] [address] 14341- 5006 Aug, Right elbow pain M25.521 [address] [place] 45015- 9029 Aug, Plantar wart of right foot B07.0 and Actinic keratosis L57.0 [address] [place] 00514- 5022 Aug, Fibromyalgia M79.7 [address] [place] [address] 98141- 9985 Jul, Arthritis M19.90 ; Hypothyroidism, unspecified type E03.9 ; Reactive depression F32.9 and Venous insufficiency I87.2 [address] [address] 58752- 0079 Jul, Gastroesophageal reflux disease, esophagitis presence not specified K21.9 [address] [address] 59987- 8651 Jul, Reflex sympathetic dystrophy G90.50 [address] [address] 58237- 5229 Jul, Anxiety F41.9 ; Adjustment disorder with anxiety F43.22 and Reactive depression F32.9 [address] [place] [address] 94722- 4537 Jul, [address] [address] 90640- 5877 Jul, Right elbow pain M25.521 [address] [place] [address] 42995- 6934 Jun, Fibromyalgia M79.7 [address] [place] [address] 95777- 2225 Jun, Anxiety F41.9 ; Adjustment disorder with anxiety F43.22 and Reactive depression F32.9 [address] [place] [address] 35718- 4183 Jun, [address] [address] 95374- 3296 Jun, Atypical chest pain R07.89 and Adjustment disorder with anxiety F43.22 [facility] [address] [id number] Jun, Chest pain, unspecified type R07.9 [facility] [id number] [place] [address] 97437- 3184 Jun, Fibromyalgia M79.7 [facility] [address] 24586- 1190 May, Anxiety F41.9 [facility] [address] 87802- 9957 May, [facility] [address] 44397- 0999 May, Right elbow pain M25.521 [facility] [address] 68428- 6215 Apr, Reflex sympathetic dystrophy G90.50 and Encounter for immunization Z23 [facility] [address] 07711- 0013 Apr, [facility] [address] 30088- 8922 Mar, [facility] [address] [address]- [address] Feb, [facility] [address] [address]881- 7094 Feb, [facility] [id number] [place] [address] 43773- 7487 Jan, [facility] [id number] [place] [address] 68918- 0614 Jan, Right elbow pain M25.521 and Right wrist pain M25.531 [facility] [address] 6[address]00- 9220 Jan, [facility] [id number] [place] [address] 99373- 9515 Dec, Seborrheic keratoses L82.1 [facility] [id number] [place] [address] 57796- 4904 Dec, [facility] [address] [address] Dec, [facility] [id number] [place] [address] 36497- 2586 Dec, [facility] [id number] [place] [address] 42498- 1048 Dec, Fibromyalgia M79.7 and Hypothyroidism, unspecified type E03.9 [facility] [id number] [place] [address] 66922- 7384 Dec, Seborrheic keratoses L82.1 [place] [id number] [place] [address] 11026- 2127 Dec, [facility] [id number] [place] [address] 06777- 0785 Dec, [facility] [id number] [place] [address] 98469- 4713 Nov, Sebaceous cyst L72.3 [place] [id number] [place] [address] 95940- 9867 October, Breast cancer screening Z12.39 [place] [id number] [place] [address] 64429- 5917 October, Fibromyalgia M79.7 ; Hypothyroidism, unspecified type E03.9 and Reflex sympathetic dystrophy G90.50 [place] [address] [address]- 5326 October, Reflex sympathetic dystrophy G90.50 ; Fibromyalgia M79.7 and Hypothyroidism, unspecified type E03.9 IMMUNIZATIONS No Known Immunizations SOCIAL HISTORY Never Assessed REASON FOR VISIT BH f/u, Anxiety and depresson. PLAN OF CARE Activity Details Follow Up Next available Reason:anxiety & depression VITAL SIGNS MEDICATIONS Unknown Medications RESULTS No Results PROCEDURES Procedure Date Ordered Result Body Site [facility] VISIT MENTAL HEALTH ESTAB PT August 31, 2017 Psychotherapy, patient &/family, 45 minutes, established patient August 31, 2017 INSTRUCTIONS MEDICATIONS ADMINISTERED No Known Medications [...]
--- OUTSIDE RECORDS SUMMARY | 2018-03-07 17:58 | XMS REPORT ---
Author Author JOE BAI [facility] Address [address] [place] [address] Care Team Providers Care Compound Finisher Name Role Phone JOE BAI Unavailable PROBLEMS Type Condition ICD9-CM Code XSM05-KA Code Onset Dates Condition Status SNOMED Code Problem Reactive depression F32.9 Active 45305817 Problem Plantar wart of right foot B07.0 Active 02797749 Problem Gastroesophageal reflux disease, esophagitis presence not specified K21.9 Active 195278284 Problem Internal derangement of right knee M23.91 Active 516921163192634 Problem Abnormal laboratory test R89.9 Active 745544969 Problem Mixed hyperlipidemia E78.2 Active 310091369 Problem Rosacea L71.9 Active 554691789 Problem Mild episode of recurrent major depressive disorder F33.0 Active 794387254 Problem Generalized anxiety disorder F41.1 Active 81937804 Problem Hypothyroidism, unspecified type E03.9 Active 01789151 Problem Right elbow pain M25.521 Active 39516059 Problem Right wrist pain M25.531 Active 80333423 Problem Reflex sympathetic dystrophy G90.50 Active 94952957 Problem Venous insufficiency I87.2 Active 62523325 Problem Fibromyalgia M79.7 Active 509710916 Problem Arthritis M19.90 Active 5549541 ALLERGIES No Information ENCOUNTERS Encounter Location Date Diagnosis [facility] [address], [place] [address] Jan, [facility] [id number] [place] [address] 70782- 6186 Jan, [facility] [id number] [place] [address] 55027- 9731 Jan, [facility] [address], [place] [address] Jan, [facility] [address], [place] [address] Dec, [facility] [id number] [place] [address] 48407- 7804 Dec, [facility] [id number] [place] [address] 50602- 6900 Dec, Fibromyalgia M79.7 [facility] [id number] [place] [address] 12235- 5717 Dec, Bronchitis J40 and Internal derangement of right knee M23.91 [facility] [id number] [place] [address] 76440 -0231 Dec, Cough R05 [facility] [id number] [place] [address] 48577- 6190 Dec, Generalized anxiety disorder F41.1 and Mild episode of recurrent major depressive disorder F33.0 [facility] [id number] [place] [address] 34174- 4153 Dec, [facility] [id number] [place] [address] 84682 -8769 Dec, [facility] [id number] [place] [address] 76168- 6828 Dec, Mild episode of recurrent major depressive disorder F33.0 and Generalized anxiety disorder F41.1 [facility] [id number] [place] [address] 56850- 4217 Nov, [facility] [id number] [place] [address] 32135- 4580 Nov, [facility] [id number] [place] [address] 12802- 4373 Nov, [facility] [id number] [place] [address] 90172- 5801 Nov, Internal derangement of right knee M23.91 [facility] [id number] [place] [address] 37830- 7091 Nov, Generalized anxiety disorder F41.1 and Mild episode of recurrent major depressive disorder F33.0 [facility] [id number] [place] [address] 08260- 1211 22 Nov, 2017 Internal derangement of right knee M23.91 [facility] [id number] [place] [address] 37681 -3608 19 Nov, 2017 Acute right ankle pain M25.571 ; Acute pain of right knee M25.561 ; Acute left-sided low back pain without sciatica M54.5 and Right leg pain M79.604 [facility] [id number] [place] [address] 37842- 1743 15 Nov, 2017 [facility] [id number] [place] [address] 08196- 5980 Nov, Fibromyalgia M79.7 [facility] [id number] [place] [address] 82066- 4340 Nov, Generalized anxiety disorder F41.1 and Mild episode of recurrent major depressive disorder F33.0 [facility] [id number] [place] [address] 93817- 7810 Nov, [facility] [id number] [place] [address] 91685- 4833 October, Generalized anxiety disorder F41.1 and Mild episode of recurrent major depressive disorder F33.0 [facility] [id number] [place] [address] 76846- 7520 October, Fibromyalgia M79.7 [facility] [address], [place] [address] 6517 October, [facility] [id number] [place] [address] 15602- 3181 October, Generalized anxiety disorder F41.1 and Mild episode of recurrent major depressive disorder F33.0 [facility] [id number] [place] [address] 39158- 8255 October, [facility] [id number] [place] [address] 41929- 5461 Sep, Gastroesophageal reflux disease, esophagitis presence not specified K21.9 and Abnormal laboratory test R89.9 [facility] [id number] [place] [address] 97504- 6445 Sep, Fibromyalgia M79.7 [facility] [address] 91995- 2069 Sep, Generalized anxiety disorder F41.1 and Mild episode of recurrent major depressive disorder F33.0 [facility] [facility] [address] 93260- 4839 Sep, Epigastric pain R10.13 [facility] [id number] [place] [address] 89453- 4784 Sep, Mild episode of recurrent major depressive disorder F33.0 and Generalized anxiety disorder F41.1 [facility] [id number] [place] [address] 72118- 9943 Sep, Abnormal laboratory test R89.9 [facility] [address] 04929- 8129 Sep, Generalized anxiety disorder F41.1 and Mild episode of recurrent major depressive disorder F33.0 [facility] [id number] [place] [address] 98981- 8549 Aug, Epigastric pain R10.13 and Encounter for therapeutic drug level monitoring Z51.81 [facility] [id number] [place] [address] 04003 -7806 Aug, Epigastric pain R10.13 and Gastro-esophageal reflux disease without esophagitis K21.9 [facility] [id number] [place] [address] 06920- 3895 Aug, [facility] [id number] [place] [address] 92484- 3384 Aug, Epigastric pain R10.13 [facility] [id number] [place] [address] 35018- 7984 Aug, Fibromyalgia M79.7 [facility] [id number] [place] [address] 01865- 7594 Aug, [place] [facility] [address] 84647- 1357 Aug, Generalized anxiety disorder F41.1 and Mild episode of recurrent major depressive disorder F33.0 [place] [address] 81688- 0206 08 Aug, 2017 Epigastric pain R10.13 ; Reflex sympathetic dystrophy G90.50 and Arthritis M19.90 [facility] [id number] [place] [address] 48149- 7402 Jul, Generalized anxiety disorder F41.1 and Mild episode of recurrent major depressive disorder F33.0 [place] [facility] [address] 72930- 6947 Jul, BMI 40.0-44.9, adult Z68.41 ; Mild episode of recurrent major depressive disorder F33.0 and Generalized anxiety disorder F41.1 [facility] [id number] [place] [address] 72971- 8756 Jul, Fibromyalgia M79.7 [facility] [id number] [place] [address] 93752- 8192 Jun, Mild episode of recurrent major depressive disorder F33.0 and Generalized anxiety disorder F41.1 [facility] [id number] [place] [address] 14365- 2208 Jun, Fibromyalgia M79.7 [facility] [id number] [place] [address] 26302- 1080 Jun, Generalized anxiety disorder F41.1 and Mild episode of recurrent major depressive disorder F33.0 [facility] [id number] [place] [address] 45932- 3490 Jun, Generalized anxiety disorder F41.1 and Mild episode of recurrent major depressive disorder F33.0 [facility] [id number] [place] [address] 98622- 3361 Jun, Generalized anxiety disorder F41.1 and Mild episode of recurrent major depressive disorder F33.0 [facility] [id number] [place] [address] 03338- 7485 Jun, [facility] [id number] [place] [address] 86032- 4783 Jun, Generalized anxiety disorder F41.1 and Mild episode of recurrent major depressive disorder F33.0 [facility] [id number] [place] [address] 15206- 0132 May, Fibromyalgia M79.7 [facility] [id number] [place] [address] 08051- 2394 May, Generalized anxiety disorder F41.1 and Mild episode of recurrent major depressive disorder F33.0 [facility] [id number] [place] [address] 55317- 9632 May, Mixed hyperlipidemia E78.2 ; Arthritis M19.90 ; Reactive depression F32.9 and Hypothyroidism, unspecified type E03.9 [facility] [id number] [place] [address] 44215- 2298 May, Arthritis M19.90 ; Reactive depression F32.9 ; Mixed hyperlipidemia E78.2 and Hypothyroidism, unspecified type E03.9 [facility] [address], [place] [address]- 5176 Apr, Fibromyalgia M79.7 [facility] [id number] [place] [address] 05065- 5826 Apr, [facility] [id number] [place] [address] 24041- 2114 Apr, Fibromyalgia M79.7 [facility] [id number] [place] [address] 71342- 0940 Mar, Fibromyalgia M79.7 [facility] [address] 60286- 3856 Mar, [facility] [address] 36153- 4184 Mar, Fibromyalgia M79.7 [facility] [address] 98903- 0775 Mar, [facility] [address] 28391- 3011 Feb, Reflex sympathetic dystrophy G90.50 ; Right arm pain M79.601 and Fibromyalgia M79.7 [facility] [address] 10571- 1612 Feb, [facility] [address] 43828- 0740 Feb, Anxiety F41.9 [facility] [address] 55535- 9818 06 Feb, 2017 Fibromyalgia M79.7 [facility] [address] 26009- 5784 Feb, [facility] [id number] [place] [address] 76455- 9172 Feb, [facility] [id number] [place] [address] 50337- 2773 Jan, Temporal headache R51 [facility] [id number] [place] [address] 93820- 1635 Jan, Fibromyalgia M79.7 [facility] [address] 62739- 7293 Dec, Fibromyalgia M79.7 [facility] [id number] [place] [address] 15691- 8374 Nov, Peroneal tendonitis, unspecified laterality M76.70 and Plantar fasciitis, bilateral M72.2 [facility] [facility] [id number] [place] [address] 97907- 5807 Nov, Fibromyalgia M79.7 [place] [address] 68816- 4049 October, Fibromyalgia M79.7 [place] [address] 81999- 7626 October, Plantar fasciitis, bilateral M72.2 and Peroneal tendonitis, unspecified laterality M76.70 [place] [address] 13278- 6581 October, Fibromyalgia M79.7 [place] [address] 80262- 1532 Sep, Anxiety F41.9 [place] [address] 44939- 2067 Aug, Anxiety F41.9 and Adjustment disorder with anxiety F43.22 [facility] [facility] [id number] [place] [address] 58435- 5157 Aug, Pain of left foot M79.672 [facility] [id number] [place] [address] 38196- 2387 Aug, Pain of left foot M79.672 and Pain in right foot M79.671 [facility] [id number] [place] [address] 81578- 5715 Aug, Arthritis M19.90 ; Reactive depression F32.9 ; Fibromyalgia M79.7 ; Rosacea L71.9 ; Pain in right foot M79.671 and Pain of left foot M79.672 [facility] [facility] [id number] [place] [address] 79325- 3216 Aug, Anxiety F41.9 ; Adjustment disorder with anxiety F43.22 and Reactive depression F32.9 [place] [facility] [id number] [place] [address] 93061- 4872 Aug, Right elbow pain M25.521 [place] [address] 68880- 9450 Aug, Plantar wart of right foot B07.0 and Actinic keratosis L57.0 [facility] [facility] [id number] [place] [address] 13535- 1945 Aug, Fibromyalgia M79.7 [place] [address] 84820- 2478 Jul, Arthritis M19.90 ; Hypothyroidism, unspecified type E03.9 ; Reactive depression F32.9 and Venous insufficiency I87.2 [place] [address] 02594- 5389 Jul, Gastroesophageal reflux disease, esophagitis presence not specified K21.9 [place] [address] 85661- 0382 Jul, Reflex sympathetic dystrophy G90.50 [place] [address] 10429- 2483 Jul, Anxiety F41.9 ; Adjustment disorder with anxiety F43.22 and Reactive depression F32.9 [facility] [id number] [place] [address] 53516- 9082 Jul, [facility] [id number] [place] [address] 37789- 8514 Jul, Right elbow pain M25.521 [place] [address] 66899- 1480 Jun, Fibromyalgia M79.7 [place] [address] 79059- 2942 Jun, Anxiety F41.9 ; Adjustment disorder with anxiety F43.22 and Reactive depression F32.9 [facility] [id number] [place] [address] 30311- 5204 Jun, [facility] [id number] [place] [address] 07160- 8446 Jun, Atypical chest pain R07.89 and Adjustment disorder with anxiety F43.22 [facility] [address] [id number] Jun, Chest pain, unspecified type R07.9 [place] [address] 52163- 6548 Jun, Fibromyalgia M79.7 [place] [address] 95075- 7116 May, Anxiety F41.9 [place] [address] 17782- 2447 May, [place] [address] 61322- 9550 May, Right elbow pain M25.521 [place] [address] 33987- 9562 Apr, Reflex sympathetic dystrophy G90.50 and Encounter for immunization Z23 [place] [address] 36648- 2109 Apr, [facility] [address] 10637- 2829 Mar, [facility] [id number] [place] [address] 50731- 9421 Feb, [facility] [address] 18442- 4440 Feb, [facility] [address] 25395- 4816 Jan, [facility] [address] 60031- 8706 Jan, Right elbow pain M25.521 and Right wrist pain M25.531 [place] [address] [place] [address]- 5715 Jan, [facility] [address], [place] [address]- 9666 Dec, Seborrheic keratoses L82.1 [facility] [address], [place] [address]- 2236 Dec, [facility] [id number] [place] [address] 26704- 9592 Dec, [facility] [id number] [place] [address] 85200- 4195 Dec, [facility] [id number] [place] [address] 69060- 5533 Dec, Fibromyalgia M79.7 and Hypothyroidism, unspecified type E03.9 [facility] [id number] [place] [address] 30283- 8367 Dec, Seborrheic keratoses L82.1 [facility] [id number] [place] [address] 04471- 4803 Dec, [facility] [id number] [place] [address] 07501- 7183 Dec, [facility] [address], [place] [address]- 0849 Nov, Sebaceous cyst L72.3 [facility] [id number] [place] [address] 98743- 7374 October, Breast cancer screening Z12.39 [facility] [address], [place] [address]- 0175 October, Fibromyalgia M79.7 ; Hypothyroidism, unspecified type E03.9 and Reflex sympathetic dystrophy G90.50 [facility] [address] [address]- 4209 October, Reflex sympathetic dystrophy G90.50 ; Fibromyalgia M79.7 and Hypothyroidism, unspecified type E03.9 IMMUNIZATIONS No Known Immunizations SOCIAL HISTORY Never Assessed REASON FOR VISIT Requests return call PLAN OF CARE VITAL SIGNS MEDICATIONS Medication Instructions Dosage Frequency Start Date End Date Duration Status Tizanidine HCl 4 MG Orally Three times a day 1 tablet as needed 8h Aug, Active Carafate 1 GM Orally 4 times a day 1 tablet 6h Aug, October, 30 days Active RESULTS No Results PROCEDURES [...]
--- OUTSIDE RECORDS SUMMARY | 2018-03-07 17:59 | XMS REPORT ---
Author Author JOE BAI [facility] Address [address] [place] [address] Care Team Providers Care Check Scaler Name Role Phone JOE BAI Unavailable PROBLEMS Type Condition ICD9-CM Code EEW16-JD Code Onset Dates Condition Status SNOMED Code Problem Reactive depression F32.9 Active 19955618 Problem Plantar wart of right foot B07.0 Active 69022139 Problem Gastroesophageal reflux disease, esophagitis presence not specified K21.9 Active 097320689 Problem Internal derangement of right knee M23.91 Active [id number] Problem Abnormal laboratory test R89.9 Active 710634941 Problem Mixed hyperlipidemia E78.2 Active 525360772 Problem Rosacea L71.9 Active 773135012 Problem Mild episode of recurrent major depressive disorder F33.0 Active 703607593 Problem Generalized anxiety disorder F41.1 Active 94893831 Problem Hypothyroidism, unspecified type E03.9 Active 54491647 Problem Right elbow pain M25.521 Active 64225039 Problem Right wrist pain M25.531 Active 97795323 Problem Reflex sympathetic dystrophy G90.50 Active 64017374 Problem Venous insufficiency I87.2 Active 52743776 Problem Fibromyalgia M79.7 Active 547363357 Problem Arthritis M19.90 Active 6059588 ALLERGIES Substance Reaction Event Type Date Status Robaxin Unknown Drug Allergy Aug, Active Penicillin V Potassium Unknown Drug Allergy Aug, Active Demerol Unknown Drug Allergy Aug, Active Codeine Sulfate Unknown Drug Allergy Aug, Active ENCOUNTERS Encounter Location Date Diagnosis [facility] [address] [facility] [id number], [place] [address] Jan, [facility] [address] [facility] [id number], [place] [address] Jan, [facility] [address] [facility] [id number], [place] [address] Jan, [facility] [address] [facility] [id number], [place] [address] Jan, [facility] [address]65[address] [address] Dec, [facility] [address], [place] [address] Dec, [facility] [address] [id number], [place] [address] Dec, Cough R05 [facility] [address] [facility] [id number] [place] [address] 67869- 4286 Dec, Generalized anxiety disorder F41.1 and Mild episode of recurrent major depressive disorder F33.0 [facility] [address], [place] [address] Dec, [facility] [id number] [place] [address] Dec, [facility] [address] [id number], [place] [address] Dec, Mild episode of recurrent major depressive disorder F33.0 and Generalized anxiety disorder F41.1 [facility] [address], [place] [address] Nov, [facility] [address] [address] Nov, [facility] [id number], [place] [address] Nov, [facility] [address], [place] [address] 27[address] Nov, Internal derangement of right knee M23.91 [facility] [address] [id number], [place] [address] Nov, Generalized anxiety disorder F41.1 and Mild episode of recurrent major depressive disorder F33.0 [facility] [address], [place] [address] 22 Nov, 2017 Internal derangement of right knee M23.91 [facility] [id number] [place] [address]5317 -[address]186 19 Nov, 2017 Acute right ankle pain M25.571 ; Acute pain of right knee M25.561 ; Acute left-sided low back pain without sciatica M54.5 and Right leg pain M79.604 [facility] [id number], [place] [address] 15 Nov, 2017 [facility] [id number] [place] [address] 51131- 7066 14 Nov, [address] [facility] [id number] [place] [address] 91990- 3036 13 Nov, 2017 Generalized anxiety disorder F41.1 and Mild episode of recurrent major depressive disorder F33.0 [facility] [address], [place] [address] Nov, [facility] [id number] [place] [address] 56992- 2148 October, Generalized anxiety disorder F41.1 and Mild episode of recurrent major depressive disorder F33.0 [facility] [address], [place] [address] 47[address] October, Fibromyalgia M79.7 [facility] [address], [place] [address] October, [facility] [address], [place] [address] 8809 October, Generalized anxiety disorder F41.1 and Mild episode of recurrent major depressive disorder F33.0 [facility] [address], [place] [address] October, [facility] [id number] [place] [address] 19332- 4142 Sep, Gastroesophageal reflux disease, esophagitis presence not specified K21.9 and Abnormal laboratory test R89.9 [facility] [id number] [place] [address] 48915- 7919 Sep, Fibromyalgia M79.7 [facility] [id number] [place] [address] 08549- 0145 Sep, Generalized anxiety disorder F41.1 and Mild episode of recurrent major depressive disorder F33.0 [facility] [address] [address]- [address]123 Sep, Epigastric pain R10.13 [place] [address] [address]- 77[address] 10 Sep, 2017 Mild episode of recurrent major depressive disorder F33.0 and Generalized anxiety disorder F41.1 [place] [id number] [place] [address] 19972- 7945 Sep, Abnormal laboratory test R89.9 [facility] [id number] [place] [address] 57039- 9647 Sep, Generalized anxiety disorder F41.1 and Mild episode of recurrent major depressive disorder F33.0 [facility] [id number] [place] [address] 69531- 8807 29 Aug, 2017 Epigastric pain R10.13 and Encounter for therapeutic drug level monitoring Z51.81 [facility] [id number] [place] [address] 46771 -7450 Aug, Epigastric pain R10.13 and Gastro-esophageal reflux disease without esophagitis K21.9 [facility] [id number] [place] [address] 98936- 4903 Aug, [facility] [id number] [place] [address] 24252- 8185 Aug, Epigastric pain R10.13 [facility] [id number] [place] [address] 33418- 7435 Aug, Fibromyalgia M79.7 [facility] [address] [id number], [place] [address] Aug, [facility] [id number] [place] [address] 04726- 2822 Aug, Generalized anxiety disorder F41.1 and Mild episode of recurrent major depressive disorder F33.0 [facility] [id number] [place] [address] 17148- 2309 Aug, Epigastric pain R10.13 ; Reflex sympathetic dystrophy G90.[address] [facility] [id number] [place] [address] 99429- 0032 Jul, Generalized anxiety disorder F41.1 and Mild episode of recurrent major depressive disorder F33.0 [facility] [facility] [id number] [place] [address] 32623- 3066 Jul, BMI 40.0-44.9, adult Z68.41 ; Mild episode of recurrent major depressive disorder F33.0 and Generalized anxiety disorder F41.1 [facility] [id number] [place] [address] 26935- 7533 Jul, Fibromyalgia M79.7 [facility] [id number] [place] [address] 68727- 2924 Jun, Mild episode of recurrent major depressive disorder F33.0 and Generalized anxiety disorder F41.1 [facility] [id number] [place] [address] 11102- 5329 Jun, Fibromyalgia M79.7 [facility] [id number] [place] [address] 30295- 0728 Jun, Generalized anxiety disorder F41.1 and Mild episode of recurrent major depressive disorder F33.0 [facility] [id number] [place] [address] 32391- 0960 Jun, Generalized anxiety disorder F41.1 and Mild episode of recurrent major depressive disorder F33.0 [facility] [address] [id number], [place] [address]- 4792 Jun, Generalized anxiety disorder F41.1 and Mild episode of recurrent major depressive disorder F33.0 [facility] [id number] [place] [address] 91506- 1502 Jun, [facility] [id number] [place] [address] 94518- 3052 Jun, Generalized anxiety disorder F41.1 and Mild episode of recurrent major depressive disorder F33.0 [facility] [id number] [place] [address] 08008- 9965 May, Fibromyalgia M79.7 [facility] [id number] [place] [address] 03988- 7162 May, Generalized anxiety disorder F41.1 and Mild episode of recurrent major depressive disorder F33.0 [facility] [id number] [place] [address] 53122- 0506 May, Mixed hyperlipidemia E78.2 ; Arthritis M19.90 ; Reactive depression F32.9 and Hypothyroidism, unspecified type E03.9 [facility] [id number] [place] [address] 10377- 0790 May, Arthritis M19.90 ; Reactive depression F32.9 ; Mixed hyperlipidemia E78.2 and Hypothyroidism, unspecified type E03.9 [facility] [id number] [place] [address] 09891- 9830 Apr, Fibromyalgia M79.7 [facility] [id number] [place] [address] 04399- 5570 Apr, [facility] [id number] [place] [address] 25861- 8527 Apr, Fibromyalgia M79.7 [facility] [id number] [place] [address] 86918- 2218 Mar, Fibromyalgia M79.7 [facility] [id number] [place] [address] 33105- 5609 Mar, [facility] [id number] [place] [address] 50714- 5805 Mar, Fibromyalgia M79.7 [facility] [address] 51146- 2106 Mar, [facility] [address] 73498- 3376 Feb, Reflex sympathetic dystrophy G90.50 ; Right arm pain M79.[address] [facility] [address] 72906- 2510 Feb, [facility] [address] 28520- 0824 Feb, Anxiety F41.9 [facility] [address] 61682- 4060 Feb, Fibromyalgia M79.7 [facility] [address] 62266- 5406 Feb, [facility] [id number] [place] [address] 70746- 3221 Feb, [facility] [id number] [place] [address] 05051- 8757 Jan, Temporal headache R51 [facility] [id number] [place] [address] 56464- 0756 Jan, Fibromyalgia M79.7 [facility] [id number] [place] [address] 14321- 1539 Dec, Fibromyalgia M79.7 [facility] [address] 00743- 5887 Nov, Peroneal tendonitis, unspecified laterality M76.70 and Plantar fasciitis, bilateral M72.2 [facility] [id number] [place] [address] 34076- 3835 Nov, Fibromyalgia M79.7 [place] [id number] [place] [address] 13399- 5023 October, Fibromyalgia M79.7 [place] [address] 12451- 1903 October, Plantar fasciitis, bilateral M72.2 and Peroneal tendonitis, unspecified laterality M76.70 [place] [address] 80138- 6202 October, Fibromyalgia M79.7 [place] [address] 99786- 3075 Sep, Anxiety F41.9 [place] [address] 87602- 7073 Aug, Anxiety F41.9 and Adjustment disorder with anxiety F43.22 [place] [address] 40824- 9459 Aug, Pain of left foot M79.672 [place] [address] 68681- 4701 Aug, Pain of left foot M79.672 and Pain in right foot M79.671 [place] [id number] [place] [address] 03479- 8246 Aug, Arthritis M19.90 ; Reactive depression F32.9 ; Fibromyalgia M79.7 ; Rosacea L71.9 ; Pain in right foot M79.671 and Pain of left foot M79.672 [place] [id number] [place] [address] 28377- 8088 Aug, Anxiety F41.9 ; Adjustment disorder with anxiety F43.22 and Reactive depression F32.9 [place] [id number] [place] [address] 35668- 9897 Aug, Right elbow pain M25.521 [place] [address] 86400- 4900 Aug, Plantar wart of right foot B07.0 and Actinic keratosis L57.0 [place] [address] 72421- 5898 Aug, Fibromyalgia M79.7 [place] [address] 10426- 8448 Jul, Arthritis M19.90 ; Hypothyroidism, unspecified type E03.9 ; Reactive depression F32.9 and Venous insufficiency I87.2 [place] [address] 59863- 0822 Jul, Gastroesophageal reflux disease, esophagitis presence not specified K21.9 [place] [address] 81562- 6860 Jul, Reflex sympathetic dystrophy G90.50 [place] [address] 95502- 7403 Jul, Anxiety F41.9 ; Adjustment disorder with anxiety F43.22 and Reactive depression F32.9 [place] [address] 28597- 0683 Jul, [place] [address] 11838- 8667 Jul, Right elbow pain M25.521 [place] [address] 20913- 4271 Jun, Fibromyalgia M79.7 [place] [address] 26028- 5742 Jun, Anxiety F41.9 ; Adjustment disorder with anxiety F43.22 and Reactive depression F32.9 [place] [address] 93597- 3509 Jun, [place] [address] 27360- 4519 Jun, Atypical chest pain R07.89 and Adjustment disorder with anxiety F43.22 [facility] [id number] [place] [address] [id number] 16 Jun, 2016 Chest pain, unspecified type R07.9 [facility] [id number] [place] [address] 03329- 7839 09 Jun, [address] [facility] [address] 32551- 5128 May, Anxiety F41.9 [facility] [address] 62915- 2006 May, [facility] [address] 45295- 2092 May, Right elbow pain M25.521 [facility] [address] 68556- 4120 Apr, Reflex sympathetic dystrophy G90.50 and Encounter for immunization Z23 [facility] [address] 14694- 4544 Apr, [facility] [address] 84444- 3339 Mar, [facility] [id number] [place] [address] 13443- 8816 Feb, [facility] [address] 24569- 8014 Feb, [facility] [id number] [place] [address] 16918- 2812 Jan, [facility] [address] 02383- 1428 Jan, Right elbow pain M25.521 and Right wrist pain M25.531 [facility] [address] 79700- 1692 Jan, [facility] [address] 75528- 3501 Dec, Seborrheic keratoses L82.1 [place] [address] [place] [address] 76126- 6415 Dec, [facility] [id number] [place] [address] 23699- 6806 Dec, [place] [id number] [place] [address] 25406- 5198 Dec, [place] [id number] [place] [address] 37645- 8836 Dec, Fibromyalgia M79.7 and Hypothyroidism, unspecified type E03.9 [place] [id number] [place] [address] 61167- 2452 Dec, Seborrheic keratoses L82.1 [place] [id number] [place] [address] 15686- 3073 Dec, [place] [id number] [place] [address] 73104- 5246 Dec, [place] [id number] [place] [address] 16049- 7573 Nov, Sebaceous cyst L72.3 [place] [id number] [place] [address] 27068- 2656 October, Breast cancer screening Z12.39 [place] [id number] [place] [address] 64463- 7754 October, Fibromyalgia M79.7 ; Hypothyroidism, unspecified type E03.9 and Reflex sympathetic dystrophy G90.50 [place] [id number] [place] [address] 15672- 0731 October, Reflex sympathetic dystrophy G90.50 ; Fibromyalgia M79.7 and Hypothyroidism, unspecified type E03.9 IMMUNIZATIONS No Known Immunizations SOCIAL HISTORY Never Assessed REASON FOR VISIT Stomac pain with cough and matallic tase in the mouth that started yesterday- Celina DAVEY PLAN OF CARE Activity Details Follow Up 3 Months Reason: VITAL SIGNS Height 62 in 2017-08-25 Weight 217.7 lbs 2017-08-25 Temperature 98.7 degrees Fahrenheit 2017-08-25 Heart Rate 78 bpm 2017-08-25 Respiratory Rate 20 2017-08-25 BMI 39.81 kg/m2 2017-08-25 Blood pressure systolic 126 mmHg 2017-08-25 Blood pressure diastolic 82 mmHg 2017-08-25 MEDICATIONS Medication Instructions Dosage Frequency Start Date End Date Duration Status Topiramate 200MG Orally twice a day 1 tablet 12h 30 Active Pantoprazole Sodium 40MG Orally Once a day 1 tablet 24h 90 Active Orphenadrine Citrate ER 100 MG Orally 2 times a day 1 tablet 12h 30 days Active Hydrocodone-Acetaminophen 7.5-325 MG Orally 3 times a day 1 tablet 8h Jul, 28 days Active Levothyroxine Sodium 75MCG TAKE ONE TABLET BY MOUTH ONCE DAILY 90 Active Fiorinal 50-325-40 MG Orally every 4 hrs 1 capsule as needed 4h Jan, Active Excedrin Migraine 250-250-65 MG Orally every 6 hrs 2 tablets as needed 6h Active Carafate 1 GM Orally 3 times a day, ac 1 tab Aug, Sep, 14 days Active HydrOXYzine HCl 10 MG Orally three times a day as needed for anxiety and sleep 1 tablet May, Active Trintellix 5 MG Orally Once a day 1 tablet 24h 30 Jun, 2017 030 days Active RESULTS Name Result Date Reference Range H PYLORI (IN HOUSE) 2017-08-25 H. PYLORI Negative Control + Lot # [id number] Exp date 10/25/2017 PROCEDURES Procedure Date Ordered Result Body Site IMMUNOASSAY,INFECTIOUS AGENT August 25, 2017 [facility] VISIT ESTABLISHED PATIENT August 25, 2017 INSTRUCTIONS MEDICATIONS ADMINISTERED No Known Medications [...]
--- OUTSIDE RECORDS SUMMARY | 2018-03-07 17:59 | XMS REPORT ---
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 Role Phone JOE BAI Unavailable PROBLEMS Type Condition ICD9-CM Code OTC06-WJ Code Onset Dates Condition Status SNOMED Code Problem Arthritis M19.90 Active 4884222 Problem Gastroesophageal reflux disease, esophagitis presence not specified K21.9 Active 270597200 Problem Reactive depression F32.9 Active 74358076 Problem Abnormal laboratory test R89.9 Active 065246931 Problem Mild episode of recurrent major depressive disorder F33.0 Active 055147846 Problem Rosacea L71.9 Active 526812523 Problem Plantar wart of right foot B07.0 Active 00762729 Problem Generalized anxiety disorder F41.1 Active 30539194 Problem Mixed hyperlipidemia E78.2 Active 156633042 Problem Fibromyalgia M79.7 Active 894269429 Problem Right elbow pain M25.521 Active 05245690 Problem Hypothyroidism, unspecified type E03.9 Active 99250433 Problem Right wrist pain M25.531 Active 25804455 Problem Reflex sympathetic dystrophy G90.50 Active 37714673 Problem Venous insufficiency I87.2 Active 06249599 ALLERGIES No Information ENCOUNTERS Encounter Location Date Diagnosis [facility] [id number], [place] [address] Dec, [facility] [id number], [place] [address] Nov, [facility] [id number] [place] [address] 50400- 2953 October, [facility] [id number], [place] [address] October, Generalized anxiety disorder F41.1 and Mild episode of recurrent major depressive disorder F33.0 [facility] [id number] [place] [address] 64494- 8217 October, [facility] [id number] [place] [address] 50313- 9665 Sep, Gastroesophageal reflux disease, esophagitis presence not specified K21.9 and Abnormal laboratory test R89.9 [facility] [id number] [place] [address] 39939- 9622 Sep, Fibromyalgia M79.7 [facility] [address] [address]- 7098 Sep, Generalized anxiety disorder F41.1 and Mild episode of recurrent major depressive disorder F33.0 [facility] [id number] [place] [address] 18876- 5482 Sep, Epigastric pain R10.13 [facility] [id number] [place] [address] 66566- 5565 Sep, Mild episode of recurrent major depressive disorder F33.0 and Generalized anxiety disorder F41.1 [facility] [id number] [place] [address] 99762- 7994 Sep, Abnormal laboratory test R89.9 [facility] [id number] [place] [address] 12774- 9378 Sep, Generalized anxiety disorder F41.1 and Mild episode of recurrent major depressive disorder F33.0 [facility] [id number] [place] [address] 16812- 6783 Aug, Epigastric pain R10.13 and Encounter for therapeutic drug level monitoring Z51.81 [facility] [id number] [place] [address] 62349 -2869 Aug, Epigastric pain R10.13 and Gastro-esophageal reflux disease without esophagitis K21.9 [facility] [id number] [place] [address] 22239- 2312 Aug, [facility] [id number] [place] [address] 95851- 8681 21 Aug, 2017 Epigastric pain R10.13 [facility] [id number] [place] [address] 98736- 9073 Aug, Fibromyalgia M79.7 [facility] [id number] [place] [address] 48182- 9037 14 Aug, 2017 [facility] [address] 42043- 5699 Aug, Generalized anxiety disorder F41.1 and Mild episode of recurrent major depressive disorder F33.0 [facility] [id number] [place] [address] 30806- 2529 08 Aug, 2017 Epigastric pain R10.13 ; Reflex sympathetic dystrophy G90.50 and Arthritis M19.90 [facility] [id number] [place] [address] 05214- 8640 Jul, Generalized anxiety disorder F41.1 and Mild episode of recurrent major depressive disorder F33.0 [facility] [id number] [place] [address] 28367- 7535 Jul, BMI 40.0-44.9, adult Z68.41 ; Mild episode of recurrent major depressive disorder F33.0 and Generalized anxiety disorder F41.1 [facility] [id number] [place] [address] 28373- 7301 Jul, Fibromyalgia M79.7 [facility] [id number] [place] [address] 32975- 5760 Jun, Mild episode of recurrent major depressive disorder F33.0 and Generalized anxiety disorder F41.1 [facility] [id number] [place] [address] 02437- 8820 Jun, Fibromyalgia M79.7 [facility] [id number] [place] [address] 61922- 1065 Jun, Generalized anxiety disorder F41.1 and Mild episode of recurrent major depressive disorder F33.0 [facility] [address] [address] Jun, Generalized anxiety disorder F41.1 and Mild episode of recurrent major depressive disorder F33.0 [facility] [address] [place] [address] 72535- 3666 Jun, Generalized anxiety disorder F41.1 and Mild episode of recurrent major depressive disorder F33.0 [facility] [id number] [place] [address] 94806- 0429 Jun, [facility] [address] [place] [address] 46869- 4619 Jun, Generalized anxiety disorder F41.1 and Mild episode of recurrent major depressive disorder F33.0 [facility] [address] [place] [address] 85473- 3022 May, Fibromyalgia M79.7 [facility] [id number] [place] [address] 60227- 0605 May, Generalized anxiety disorder F41.1 and Mild episode of recurrent major depressive disorder F33.0 [facility] [address] [place] [address] 71503- 2932 May, Mixed hyperlipidemia E78.2 ; Arthritis M19.90 ; Reactive depression F32.9 and Hypothyroidism, unspecified type E03.9 [facility] [address], [place] [address] May, Arthritis M19.90 ; Reactive depression F32.9 ; Mixed hyperlipidemia E78.2 and Hypothyroidism, unspecified type E03.9 [facility] [address], [place] [address] Apr, Fibromyalgia M79.7 [facility] [id number] [place] [address] 50000- 6294 Apr, [facility] [address] [address] Apr, Fibromyalgia M79.7 [facility] [id number] [place] [address] 80366- 1663 Mar, Fibromyalgia M79.7 [facility] [id number] [place] [address] 49130- 0336 Mar, [facility] [id number] [place] [address] 18292 2546 Mar, Fibromyalgia M79.7 [facility] [address] [address] 2546 Mar, [facility] [id number] [place] [address] 04997 2548 Feb, Reflex sympathetic dystrophy G90.50 ; Right arm pain M79.601 and Fibromyalgia M79.7 [facility] [id number] [place] [address] 09193- 2546 Feb, [facility] [address] 36044- 2543 Feb, Anxiety F41.9 [facility] [id number] [place] [address] 58644 2542 Feb, Fibromyalgia M79.7 [facility] [id number] [place] [address] 30786 254 Feb, [facility] [id number] [place] [address] 05870- 2544 Feb, [facility] [id number] [place] [address] 81331- 2544 Jan, Temporal headache R51 [facility] [id number] [place] [address] 79945- 1586 Jan, Fibromyalgia M79.7 [facility] [id number] [place] [address] 39352- 1507 Dec, Fibromyalgia M79.7 [facility] [id number] [place] [address] 80293- 6743 Nov, Peroneal tendonitis, unspecified laterality M76.70 and Plantar fasciitis, bilateral M72.2 [facility] [id number] [place] [address] 87344- 4923 Nov, Fibromyalgia M79.7 [facility] [address] 99359- 7116 October, Fibromyalgia M79.7 [facility] [address] 32811- 2000 October, Plantar fasciitis, bilateral M72.2 and Peroneal tendonitis, unspecified laterality M76.70 [place] [facility] [address] 26524- 8214 October, Fibromyalgia M79.7 [facility] [place] [address] 16859- 0198 Sep, Anxiety F41.9 [facility] [address] 75800- 7903 Aug, Anxiety F41.9 and Adjustment disorder with anxiety F43.22 [facility] [facility] [address] 14927- 4765 Aug, Pain of left foot M79.672 [facility] [facility] [address] 80742- 5572 Aug, Pain of left foot M79.672 and Pain in right foot M79.671 [facility] [address] 16191- 5991 Aug, Arthritis M19.90 ; Reactive depression F32.9 ; Fibromyalgia M79.7 ; Rosacea L71.9 ; Pain in right foot M79.671 and Pain of left foot M79.672 [facility] [id number] [place] [address] 39634- 0164 Aug, Anxiety F41.9 ; Adjustment disorder with anxiety F43.22 and Reactive depression F32.9 [place] [address] 37915- 9867 14 Aug, 2016 Right elbow pain M25.521 [place] [address] 20159- 4315 07 Aug, 2016 Plantar wart of right foot B07.0 and Actinic keratosis L57.0 [place] [address] 61874- 2109 Aug, Fibromyalgia M79.7 [facility] [address] 16464- 5259 Jul, Arthritis M19.90 ; Hypothyroidism, unspecified type E03.9 ; Reactive depression F32.9 and Venous insufficiency I87.2 [place] [facility] [address] 50943- 7842 20 Jul, 2016 Gastroesophageal reflux disease, esophagitis presence not specified K21.9 [place] [address] 09340- 4868 Jul, Reflex sympathetic dystrophy G90.50 [place] [address] 85526- 3517 Jul, Anxiety F41.9 ; Adjustment disorder with anxiety F43.22 and Reactive depression F32.9 [place] [address] 20390- 9228 Jul, [facility] [address] 55515- 4126 Jul, Right elbow pain M25.521 [place] [address] 54194- 6111 Jun, Fibromyalgia M79.7 [facility] [address] 74953- 6412 Jun, Anxiety F41.9 ; Adjustment disorder with anxiety F43.22 and Reactive depression F32.9 [facility] [address] [place] [address]- 1332 Jun, [facility] [address] 49726- 7757 Jun, Atypical chest pain R07.89 and Adjustment disorder with anxiety F43.22 [facility] [address] [id number] 16 Jun, 2016 Chest pain, unspecified type R07.9 [facility] [address] 02935- 5957 Jun, Fibromyalgia M79.7 [place] [address] 68679- 0710 May, Anxiety F41.9 [facility] [address] 39226- 9576 May, [facility] [address] 34151- 6254 May, Right elbow pain M25.521 [facility] [address] 14949- 6690 Apr, Reflex sympathetic dystrophy G90.50 and Encounter for immunization Z23 [facility] [address] 52676- 9700 Apr, [facility] [address] 46774- 1611 Mar, [facility] [address] 63966- 3672 Feb, [facility] [address] 91385- 1025 Feb, [facility] [address] 66444- 3148 Jan, [facility] [address] 43875- 2382 Jan, Right elbow pain M25.521 and Right wrist pain M25.531 [facility] [address] [place] [address] 84047- 8043 Jan, [facility] [id number] [place] [address] 51356- 3886 Dec, Seborrheic keratoses L82.1 [facility] [id number] [place] [address] 39791- 0356 Dec, [facility] [id number] [place] [address] 15881- 6712 Dec, [facility] [id number] [place] [address] 58237- 6099 Dec, [facility] [id number] [place] [address] 28904- 7852 Dec, Fibromyalgia M79.7 and Hypothyroidism, unspecified type E03.9 [facility] [id number] [place] [address] 82062- 4241 Dec, Seborrheic keratoses L82.1 [facility] [id number] [place] [address] 47109- 6000 Dec, [facility] [id number] [place] [address] 62574- 7785 Dec, [facility] [id number] [place] [address] 86591- 4555 Nov, Sebaceous cyst L72.3 [facility] [id number] [place] [address] 41479- 1277 October, Breast cancer screening Z12.39 [facility] [id number] [place] [address] 55247- 8732 October, Fibromyalgia M79.7 ; Hypothyroidism, unspecified type E03.9 and Reflex sympathetic dystrophy G90.50 [facility] [id number] [place] [address] 63547- 9494 October, Reflex sympathetic dystrophy G90.50 ; Fibromyalgia M79.7 and Hypothyroidism, unspecified type E03.9 IMMUNIZATIONS No Known Immunizations SOCIAL HISTORY Never Assessed REASON FOR VISIT Referral request PLAN OF CARE VITAL SIGNS MEDICATIONS Unknown [...]
--- OUTSIDE RECORDS SUMMARY | 2018-03-07 18:00 | XMS REPORT ---
Author Author POLLY LACY [facility] Address [address] [place] [address] Care Team Providers Care Multicultural Services Librarian Name Role Phone BAMBI POLLY Unavailable PROBLEMS Type Condition ICD9-CM Code [id number] Code Onset Dates Condition Status SNOMED Code Problem Reactive depression F32.9 Active 65266320 Problem Plantar wart of right foot B07.0 Active 48738914 Problem Gastroesophageal reflux disease, esophagitis presence not specified K21.9 Active 764751160 Problem Internal derangement of right knee M23.91 Active [id number] Problem Abnormal laboratory test R89.9 Active 081802628 Problem Mixed hyperlipidemia E78.2 Active 480473243 Problem Rosacea L71.9 Active 646056759 Problem Mild episode of recurrent major depressive disorder F33.0 Active 389368374 Problem Generalized anxiety disorder F41.1 Active 87980507 Problem Hypothyroidism, unspecified type E03.9 Active 70753364 Problem Right elbow pain M25.521 Active 81224975 Problem Right wrist pain M25.531 Active 99739602 Problem Reflex sympathetic dystrophy G90.50 Active 69740747 Problem Venous insufficiency I87.2 Active 15491522 Problem Fibromyalgia M79.7 Active 872454090 Problem Arthritis M19.90 Active 7613984 ALLERGIES Substance Reaction Event Type Date Status Robaxin Unknown Drug Allergy Jul, Active Penicillin V Potassium Unknown Drug Allergy Jul, Active Demerol Unknown Drug Allergy Jul, Active Codeine Sulfate Unknown Drug Allergy Jul, Active ENCOUNTERS Encounter Location Date Diagnosis [facility] [address] [facility] [id number] [address] Jan, [facility] [address] [facility] [id number], [place] [address] Jan, [facility] [address] [facility] [id number] [address] Jan, [facility] [address] [address] Jan, [facility] [address], [place] [address] Dec, [facility] [address], [place] [address] Dec, [facility] [address], [place] [address] Dec, Cough R05 [facility] [address] [place] [id number] [place] [address]89- 2804 Dec, Generalized anxiety disorder F41.1 and Mild episode of recurrent major depressive disorder F33.0 [facility] [address] [address] Dec, [facility] [address], [place] [address] Dec, [facility] [address], [place] [address] Dec, Mild episode of recurrent major depressive disorder F33.0 and Generalized anxiety disorder F41.1 [facility] [address] [address] Nov, [facility] [address] [address] Nov, [facility] [address] [address] 96[address] Nov, [facility] [address], [place] [address] 9[address] Nov, Internal derangement of right knee M23.91 [facility] [address] [address] Nov, Generalized anxiety disorder F41.1 and Mild episode of recurrent major depressive disorder F33.0 [facility] [address] [address] 22 Nov, 2017 Internal derangement of right knee M23.91 [facility] [address] [address] 19 Nov, 2017 Acute right ankle pain M25.571 ; Acute pain of right knee M25.561 ; Acute left-sided low back pain without sciatica M54.5 and Right leg pain M79.604 [facility] [address] [address] 15 Nov, 2017 [facility] [id number] [place] [address] 84736- 8395 Nov, Fibromyalgia M79.7 [facility] [id number] [place] [address] 81598- 0210 Nov, Generalized anxiety disorder F41.1 and Mild episode of recurrent major depressive disorder F33.0 [facility] [address], [place] [address] Nov, [facility] [id number] [place] [address] 22313- 7074 October, Generalized anxiety disorder F41.1 and Mild episode of recurrent major depressive disorder F33.0 [facility] [address], [place] [address] 6[address] October, Fibromyalgia M79.7 [facility] [id number] [place] [address] 94914- 5756 October, [facility] [address] [address] 8[address] October, Generalized anxiety disorder F41.1 and Mild episode of recurrent major depressive disorder F33.0 [facility] [address], [place] [address] 7[address] October, [facility] [id number] [place] [address] 23876- 9784 24 Sep, 2017 Gastroesophageal reflux disease, esophagitis presence not specified K21.9 and Abnormal laboratory test R89.9 [facility] [id number] [place] [address] 69950- 7304 18 Sep, 2017 Fibromyalgia M79.7 [facility] [id number] [place] [address] 27489- 2954 17 Sep, 2017 Generalized anxiety disorder F41.1 and Mild episode of recurrent major depressive disorder F33.0 [facility] [id number] [place] [address] 30268- 4827 Sep, Epigastric pain R10.13 [facility] [address] [address]- 295[address] 10 Sep, 2017 Mild episode of recurrent major depressive disorder F33.0 and Generalized anxiety disorder F41.1 [place] [address] [address]- 7056 Sep, Abnormal laboratory test R89.9 [facility] [id number] [place] [address] 07618- 8075 Sep, Generalized anxiety disorder F41.1 and Mild episode of recurrent major depressive disorder F33.0 [facility] [id number] [place] [address] 43400- 2982 29 Aug, 2017 Epigastric pain R10.13 and Encounter for therapeutic drug level monitoring Z51.81 [facility] [id number] [place] [address] 57265 -1366 Aug, Epigastric pain R10.13 and Gastro-esophageal reflux disease without esophagitis K21.9 [facility] [id number] [place] [address] 75605- 4486 Aug, [facility] [id number] [place] [address] 60000- 9534 Aug, Epigastric pain R10.13 [facility] [id number] [place] [address] 53690- 3965 Aug, Fibromyalgia M79.7 [facility] [id number] [place] [address] 86583- 7307 Aug, [facility] [id number] [place] [address] 39389- 7941 Aug, Generalized anxiety disorder F41.1 and Mild episode of recurrent major depressive disorder F33.0 [facility] [id number] [place] [address] 83297- 6548 Aug, Epigastric pain R10.13 ; Reflex sympathetic dystrophy G90.50 and Arthritis M19.90 [facility] [id number] [place] [address] 94889- 3519 Jul, Generalized anxiety disorder F41.1 and Mild episode of recurrent major depressive disorder F33.0 [facility] [id number] [place] [address] 85694- 1791 Jul, BMI 40.0-44.9, adult Z68.41 ; Mild episode of recurrent major depressive disorder F33.0 and Generalized anxiety disorder F41.1 [facility] [id number] [place] [address] 90867- 6299 Jul, Fibromyalgia M79.7 [facility] [id number] [place] [address] 71300- 8518 Jun, Mild episode of recurrent major depressive disorder F33.0 and Generalized anxiety disorder F41.1 [facility] [id number] [place] [address] 58949- 2244 Jun, Fibromyalgia M79.7 [facility] [id number] [place] [address] 10718- 0346 Jun, Generalized anxiety disorder F41.1 and Mild episode of recurrent major depressive disorder F33.0 [facility] [id number] [place] [address] 43505- 3764 Jun, Generalized anxiety disorder F41.1 and Mild episode of recurrent major depressive disorder F33.0 [facility] [address] [address]- 0508 Jun, Generalized anxiety disorder F41.1 and Mild episode of recurrent major depressive disorder F33.0 [facility] [id number] [place] [address] 05830- 8686 Jun, [facility] [id number] [place] [address] 10558- 7217 Jun, Generalized anxiety disorder F41.1 and Mild episode of recurrent major depressive disorder F33.0 [facility] [id number] [place] [address] 99578- 9136 May, Fibromyalgia M79.7 [facility] [id number] [place] [address] 49823- 2668 May, Generalized anxiety disorder F41.1 and Mild episode of recurrent major depressive disorder F33.0 [place] [id number] [place] [address] 09392- 5888 May, Mixed hyperlipidemia E78.2 ; Arthritis M19.90 ; Reactive depression F32.9 and Hypothyroidism, unspecified type E03.9 [place] [id number] [place] [address] 59722- 5004 May, Arthritis M19.90 ; Reactive depression F32.9 ; Mixed hyperlipidemia E78.2 and Hypothyroidism, unspecified type E03.9 [place] [id number] [place] [address] 85182- 7606 Apr, Fibromyalgia M79.7 [facility] [id number] [place] [address] 18921- 3814 Apr, [facility] [id number] [place] [address] 88740- 3921 Apr, Fibromyalgia M79.7 [facility] [id number] [place] [address] 02118- 4596 Mar, Fibromyalgia M79.7 [facility] [id number] [place] [address] 40861- 6321 Mar, [facility] [id number] [place] [address] 61866- 4003 Mar, Fibromyalgia M79.7 [facility] [address] 70216- 7786 Mar, [facility] [address] 77222- 3139 Feb, Reflex sympathetic dystrophy G90.50 ; Right arm pain M79.601 and Fibromyalgia M79.7 [facility] [address] [address]26- 1965 Feb, [facility] [address] 77746- 1002 Feb, Anxiety F41.9 [facility] [address] 72578- 3275 Feb, Fibromyalgia M79.7 [facility] [id number] [place] [address] 88425- 2213 Feb, [facility] [address] 20448- 2847 Feb, [facility] [id number] [place] [address] 77162- 3521 Jan, Temporal headache R51 [facility] [address] 46387- 5572 Jan, Fibromyalgia M79.7 [facility] [id number] [place] [address] 09670- 3222 Dec, Fibromyalgia M79.7 [facility] [address] 97722- 7818 Nov, Peroneal tendonitis, unspecified laterality M76.70 and Plantar fasciitis, bilateral M72.2 [facility] [id number] [place] [address] 47961- 9769 Nov, Fibromyalgia M79.7 [place] [id number] [place] [address] 93989- 7612 October, Fibromyalgia M79.7 [place] [address] 21335- 7628 October, Plantar fasciitis, bilateral M72.2 and Peroneal tendonitis, unspecified laterality M76.70 [place] [address] 49552- 8499 October, Fibromyalgia M79.7 [place] [address] 43246- 4233 Sep, Anxiety F41.9 [place] [address] 66706- 1655 Aug, Anxiety F41.9 and Adjustment disorder with anxiety F43.22 [place] [address] 69115- 2226 Aug, Pain of left foot M79.672 [place] [address] 27529- 3675 Aug, Pain of left foot M79.672 and Pain in right foot M79.671 [place] [address] [id number] [place] [address] 37434- 0728 Aug, Arthritis M19.90 ; Reactive depression F32.9 ; Fibromyalgia M79.7 ; Rosacea L71.9 ; Pain in right foot M79.671 and Pain of left foot M79.672 [place] [id number] [place] [address] 22240- 3508 Aug, Anxiety F41.9 ; Adjustment disorder with anxiety F43.22 and Reactive depression F32.9 [place] [address] [id number] [place] [address] 24771- 1701 Aug, Right elbow pain M25.521 [place] [address] 45126- 5491 Aug, Plantar wart of right foot B07.0 and Actinic keratosis L57.0 [place] [address] 73177- 0355 Aug, Fibromyalgia M79.7 [place] [id number] [place] [address] 30194- 5009 Jul, Arthritis M19.90 ; Hypothyroidism, unspecified type E03.9 ; Reactive depression F32.9 and Venous insufficiency I87.2 [place] [address] 23173- 2474 Jul, Gastroesophageal reflux disease, esophagitis presence not specified K21.9 [place] [address] 42082- 2288 Jul, Reflex sympathetic dystrophy G90.50 [place] [address] 65374- 1291 Jul, Anxiety F41.9 ; Adjustment disorder with anxiety F43.22 and Reactive depression F32.9 [place] [address] 13638- 7002 Jul, [place] [id number] [place] [address] 54301- 9199 Jul, Right elbow pain M25.521 [place] [address] 07297- 8148 Jun, Fibromyalgia M79.7 [place] [id number] [place] [address] 89576- 4065 Jun, Anxiety F41.9 ; Adjustment disorder with anxiety F43.22 and Reactive depression F32.9 [place] [id number] [place] [address] 76500- 5750 Jun, [place] [address] 12382- 8208 Jun, Atypical chest pain R07.89 and Adjustment disorder with anxiety F43.22 [facility] [id number] [place] [address] [id number] 16 Jun, 2016 Chest pain, unspecified type R07.9 [facility] [id number] [place] [address] 89206- 4441 Jun, Fibromyalgia M79.7 [facility] [address] 55137- 7810 May, Anxiety F41.9 [facility] [address] 86988- 2228 May, [facility] [address] 28800- 1425 May, Right elbow pain M25.521 [facility] [address] 22797- 5647 Apr, Reflex sympathetic dystrophy G90.50 and Encounter for immunization Z23 [facility] [address] 70304- 3545 Apr, [facility] [address] 15786- 3920 Mar, [facility] [id number] [place] [address] 36640- 1255 Feb, [facility] [id number] [place] [address] 17528- 0115 Feb, [facility] [id number] [place] [address] 29584- 3587 Jan, [facility] [address] 30529- 7361 Jan, Right elbow pain M25.521 and Right wrist pain M25.531 [facility] [address] 72414- 4288 Jan, [facility] [address] [place] [address]- 6205 Dec, Seborrheic keratoses L82.1 [place] [id number] [place] [address] 28194- 5871 Dec, [facility] [id number] [place] [address] 78483- 7870 Dec, [place] [id number] [place] [address] 32244- 3010 Dec, [facility] [id number] [place] [address] 64796- 0425 Dec, Fibromyalgia M79.7 and Hypothyroidism, unspecified type E03.9 [place] [id number] [place] [address] 65995- 7687 Dec, Seborrheic keratoses L82.1 [place] [id number] [place] [address] 13260- 6729 Dec, [place] [id number] [place] [address] 96400- 9843 Dec, [place] [id number] [place] [address] 49505- 0703 Nov, Sebaceous cyst L72.3 [place] [id number] [place] [address] 78518- 9808 October, Breast cancer screening Z12.39 [place] [id number] [place] [address] 63721- 2452 October, Fibromyalgia M79.7 ; Hypothyroidism, unspecified type E03.9 and Reflex sympathetic dystrophy G90.50 [place] [id number] [place] [address] 25509- 4080 October, Reflex sympathetic dystrophy G90.50 ; Fibromyalgia M79.7 and Hypothyroidism, unspecified type E03.9 IMMUNIZATIONS No Known Immunizations SOCIAL HISTORY Never Assessed REASON FOR VISIT f/u PLAN OF CARE Activity Details Follow Up 6 Weeks Reason: VITAL SIGNS Height 62 in 2017-08-16 Weight 219.1 lbs 2017-08-16 Heart Rate 92 bpm 2017-08-16 Respiratory Rate 20 2017-08-16 BMI 40.07 kg/m2 2017-08-16 Blood pressure systolic 134 mmHg 2017-08-16 Blood pressure diastolic 88 mmHg 2017-08-16 MEDICATIONS Medication Instructions Dosage Frequency Start Date End Date Duration Status Hydrocodone-Acetaminophen 7.5-325 MG Orally 3 times a day 1 tablet 8h Jul, 28 days Unknown Neurontin 300 MG Orally 3 times a day 1 capsule 8h Not-Taking Mobic 7.5 MG Orally Once a day 1 tablet 24h Jul, 30 day(s) Not -Taking Trintellix 5 MG Orally Once a day 1 tablet 24h 30 Jun, 2017 030 days Active HydrOXYzine HCl 10 MG Orally three times a day as needed for anxiety and sleep 1 tablet May, Active Excedrin Migraine 250-250-65 MG Orally every 6 hrs 2 tablets as needed 6h Active Fiorinal 50-325-40 MG Orally every 4 hrs 1 capsule as needed 4h Jan, Active Topiramate 200MG Orally twice a day 1 tablet 12h 30 Active Levothyroxine Sodium 75MCG TAKE ONE TABLET BY MOUTH ONCE DAILY 90 Active Pantoprazole Sodium 40MG Orally Once a day 1 tablet 24h 90 Active Orphenadrine Citrate ER 100 MG Orally 2 times a day 1 tablet 12h 30 days Active RESULTS No Results PROCEDURES Procedure Date Ordered Result Body Site [facility] VISIT ESTABLISHED PATIENT Aug 16, 2017 INSTRUCTIONS MEDICATIONS ADMINISTERED No Known [...]
--- OUTSIDE RECORDS SUMMARY | 2018-03-07 18:00 | XMS REPORT ---
Author Author JOE BAI [facility] Address [address] [place] [address] Care Team Providers Care Insurance Sales Associate Name Role Phone JOE BAI Unavailable PROBLEMS Type Condition ICD9-CM Code LSI26-IX Code Onset Dates Condition Status SNOMED Code Problem Arthritis M19.90 Active 2767107 Problem Gastroesophageal reflux disease, esophagitis presence not specified K21.9 Active 142986605 Problem Reactive depression F32.9 Active 90918362 Problem Abnormal laboratory test R89.9 Active 854265597 Problem Mild episode of recurrent major depressive disorder F33.0 Active 518547506 Problem Rosacea L71.9 Active 915183721 Problem Plantar wart of right foot B07.0 Active 94807552 Problem Generalized anxiety disorder F41.1 Active 95681017 Problem Mixed hyperlipidemia E78.2 Active 826251750 Problem Fibromyalgia M79.7 Active 377402032 Problem Right elbow pain M25.521 Active 45255010 Problem Hypothyroidism, unspecified type E03.9 Active 00507974 Problem Right wrist pain M25.531 Active 08777466 Problem Reflex sympathetic dystrophy G90.50 Active 12175115 Problem Venous insufficiency I87.2 Active 98634345 ALLERGIES No Information ENCOUNTERS Encounter Location Date Diagnosis [facility] [id number] [address] Dec, [facility] [id number] [address] Nov, [facility] [id number] [place] [address]22[address] 8985 October, [facility] [id number] [address] October, Generalized anxiety disorder F41.1 and Mild episode of recurrent major depressive disorder F33.0 [facility] [id number] [place] [address] 63352- 3659 October, [facility] [id number] [place] [address] 52498- 3025 Sep, Gastroesophageal reflux disease, esophagitis presence not specified K21.9 and Abnormal laboratory test R89.9 [facility] [id number] [place] [address] 87462- 6036 Sep, Fibromyalgia M79.7 [facility] [address] [address]- [address] Sep, Generalized anxiety disorder F41.1 and Mild episode of recurrent major depressive disorder F33.0 [facility] [id number] [place] [address] 53169- 3563 Sep, Epigastric pain R10.13 [facility] [id number] [place] [address] 64863- 8502 Sep, Mild episode of recurrent major depressive disorder F33.0 and Generalized anxiety disorder F41.1 [facility] [id number] [place] [address] 74035- 4858 Sep, Abnormal laboratory test R89.9 [facility] [id number] [place] [address] 91536- 2380 Sep, Generalized anxiety disorder F41.1 and Mild episode of recurrent major depressive disorder F33.0 [facility] [id number] [place] [address] 80384- 8984 Aug, Epigastric pain R10.13 and Encounter for therapeutic drug level monitoring Z51.81 [facility] [id number] [place] [address] 50370 -0367 Aug, Epigastric pain R10.13 and Gastro-esophageal reflux disease without esophagitis K21.9 [facility] [id number] [place] [address] 20321- 2704 Aug, [facility] [id number] [place] [address] 54285- 9831 21 Aug, 2017 Epigastric pain R10.13 [facility] [id number] [place] [address] 15379- 1589 Aug, Fibromyalgia M79.7 [facility] [id number] [place] [address] 35796- 9579 14 Aug, 2017 [facility] [address] [address]- [address] Aug, Generalized anxiety disorder F41.1 and Mild episode of recurrent major depressive disorder F33.0 [facility] [id number] [place] [address] 13258- 1994 08 Aug, 2017 Epigastric pain R10.13 ; Reflex sympathetic dystrophy G90.50 and Arthritis M19.90 [facility] [id number] [place] [address] 03930- 0238 Jul, Generalized anxiety disorder F41.1 and Mild episode of recurrent major depressive disorder F33.0 [facility] [id number] [place] [address] 72832- 0800 Jul, BMI 40.0-44.9, adult Z68.41 ; Mild episode of recurrent major depressive disorder F33.0 and Generalized anxiety disorder F41.1 [facility] [id number] [place] [address] 80301- 2928 Jul, Fibromyalgia M79.7 [facility] [id number] [place] [address] 67922- 4224 Jun, Mild episode of recurrent major depressive disorder F33.0 and Generalized anxiety disorder F41.1 [facility] [id number] [place] [address] 24195- 6872 Jun, Fibromyalgia M79.7 [facility] [id number] [place] [address] 92143- 4142 Jun, Generalized anxiety disorder F41.1 and Mild episode of recurrent major depressive disorder F33.0 [facility] [address] [address] Jun, Generalized anxiety disorder F41.1 and Mild episode of recurrent major depressive disorder F33.0 [facility] [address] [place] [address] 25574- 3266 Jun, Generalized anxiety disorder F41.1 and Mild episode of recurrent major depressive disorder F33.0 [facility] [id number] [place] [address] 80765- 5652 Jun, [facility] [address] [place] [address] 53771- 9284 Jun, Generalized anxiety disorder F41.1 and Mild episode of recurrent major depressive disorder F33.0 [facility] [address] [place] [address] 70455- 8080 May, Fibromyalgia M79.7 [facility] [id number] [place] [address] 17862- 7107 May, Generalized anxiety disorder F41.1 and Mild episode of recurrent major depressive disorder F33.0 [facility] [address] [place] [address] 19987- 2607 May, Mixed hyperlipidemia E78.2 ; Arthritis M19.90 ; Reactive depression F32.9 and Hypothyroidism, unspecified type E03.9 [facility] [address] [address] May, Arthritis M19.90 ; Reactive depression F32.9 ; Mixed hyperlipidemia E78.2 and Hypothyroidism, unspecified type E03.9 [facility] [address] [address] Apr, Fibromyalgia M79.7 [facility] [id number] [place] [address] 51889- 9661 Apr, [facility] [address] [address] 3[address] Apr, Fibromyalgia M79.7 [facility] [id number] [place] [address] 95128- 4629 Mar, Fibromyalgia M79.7 [facility] [id number] [place] [address] 91938- 4046 Mar, [facility] [id number] [place] [address] 55870 2546 Mar, Fibromyalgia M79.7 [facility] [address] 25789 2546 Mar, [facility] [id number] [place] [address] 51437 2548 Feb, Reflex sympathetic dystrophy G90.50 ; Right arm pain M79.601 and Fibromyalgia M79.7 [facility] [id number] [place] [address] 79003- 2546 Feb, [facility] [address] 6[address]45- 254 Feb, Anxiety F41.9 [facility] [id number] [place] [address] 33418 2540 Feb, Fibromyalgia M79.7 [facility] [id number] [place] [address] 70501 2542 Feb, [facility] [id number] [place] [address] 75360- 254 Feb, [facility] [id number] [place] [address] 53401- 2541 Jan, Temporal headache R51 [facility] [id number] [place] [address] 59605- 9296 Jan, Fibromyalgia M79.7 [facility] [id number] [place] [address] 49604- 7699 Dec, Fibromyalgia M79.7 [facility] [id number] [place] [address] 62539- 5466 Nov, Peroneal tendonitis, unspecified laterality M76.70 and Plantar fasciitis, bilateral M72.2 [facility] [id number] [place] [address] 73458- 3667 Nov, Fibromyalgia M79.7 [facility] [address] 97252- 2902 October, Fibromyalgia M79.7 [facility] [address] 99467- 4797 October, Plantar fasciitis, bilateral M72.2 and Peroneal tendonitis, unspecified laterality M76.70 [facility] [address] 78896- 0597 October, Fibromyalgia M79.7 [facility] [address] 73424- 0233 Sep, Anxiety F41.9 [facility] [address] 30436- 7701 Aug, Anxiety F41.9 and Adjustment disorder with anxiety F43.22 [facility] [address] 75599- 1171 Aug, Pain of left foot M79.672 [facility] [address] 71937- 0621 Aug, Pain of left foot M79.672 and Pain in right foot M79.671 [facility] [address] 45908- 5537 Aug, Arthritis M19.90 ; Reactive depression F32.9 ; Fibromyalgia M79.7 ; Rosacea L71.9 ; Pain in right foot M79.671 and Pain of left foot M79.672 [facility] [id number] [place] [address] 93925- 8555 Aug, Anxiety F41.9 ; Adjustment disorder with anxiety F43.22 and Reactive depression F32.9 [facility] [address] 19948- 1081 14 Aug, 2016 Right elbow pain M25.521 [facility] [address] 66357- 9206 07 Aug, 2016 Plantar wart of right foot B07.0 and Actinic keratosis L57.0 [facility] [address] 78412- 8600 Aug, Fibromyalgia M79.7 [facility] [address] 99210- 6078 Jul, Arthritis M19.90 ; Hypothyroidism, unspecified type E03.9 ; Reactive depression F32.9 and Venous insufficiency I87.2 [facility] [address] 50016- 3267 20 Jul, 2016 Gastroesophageal reflux disease, esophagitis presence not specified K21.9 [facility] [address] 55041- 5072 Jul, Reflex sympathetic dystrophy G90.50 [facility] [address] 95663- 0891 Jul, Anxiety F41.9 ; Adjustment disorder with anxiety F43.22 and Reactive depression F32.9 [facility] [address] 38430- 5241 Jul, [facility] [address] 75734- 0739 Jul, Right elbow pain M25.521 [facility] [address] 27756- 0857 Jun, Fibromyalgia M79.7 [facility] [address] 60196- 7664 Jun, Anxiety F41.9 ; Adjustment disorder with anxiety F43.22 and Reactive depression F32.9 [facility] [address] [place] [address]- 6389 Jun, [facility] [address] 21246- 0123 Jun, Atypical chest pain R07.89 and Adjustment disorder with anxiety F43.22 [facility] [address] [id number] 16 Jun, 2016 Chest pain, unspecified type R07.9 [facility] [address] 87102- 9265 Jun, Fibromyalgia M79.7 [facility] [address] 20366- 9587 May, Anxiety F41.9 [facility] [address] 13246- 9214 May, [facility] [address] 22556- 5825 May, Right elbow pain M25.521 [facility] [address] 62201- 1789 Apr, Reflex sympathetic dystrophy G90.50 and Encounter for immunization Z23 [facility] [address] 55076- 5015 Apr, [facility] [address] 14932- 0589 Mar, [facility] [address] 96114- 8302 Feb, [facility] [address] 14475- 5929 Feb, [facility] [address] 38545- 4485 Jan, [facility] [address] 79124- 4077 Jan, Right elbow pain M25.521 and Right wrist pain M25.531 [facility] [address] [place] [address] 13093- 4790 Jan, [facility] [id number] [place] [address] 16435- 4176 Dec, Seborrheic keratoses L82.1 [facility] [id number] [place] [address] 64784- 8996 Dec, [facility] [id number] [place] [address] 59667- 2144 Dec, [facility] [id number] [place] [address] 46604- 1244 Dec, [facility] [id number] [place] [address] 78316- 6975 Dec, Fibromyalgia M79.7 and Hypothyroidism, unspecified type E03.9 [facility] [id number] [place] [address] 85558- 9321 Dec, Seborrheic keratoses L82.1 [facility] [id number] [place] [address] 34887- 5657 Dec, [facility] [id number] [place] [address] 94202- 8906 Dec, [facility] [id number] [place] [address] 38266- 5298 Nov, Sebaceous cyst L72.3 [facility] [id number] [place] [address] 23804- 0494 October, Breast cancer screening Z12.39 [facility] [id number] [place] [address] 17606- 6739 October, Fibromyalgia M79.7 ; Hypothyroidism, unspecified type E03.9 and Reflex sympathetic dystrophy G90.50 [facility] [id number] [place] [address] 41803- 1335 October, Reflex sympathetic dystrophy G90.50 ; Fibromyalgia [...]
--- OUTSIDE RECORDS SUMMARY | 2018-03-07 18:01 | XMS REPORT ---
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 Cylinder Press Operator Helper Name Role Phone JOE BAI Unavailable PROBLEMS Type Condition ICD9-CM Code GAV01-IK Code Onset Dates Condition Status SNOMED Code Problem Arthritis M19.90 Active 3467451 Problem Gastroesophageal reflux disease, esophagitis presence not specified K21.9 Active 081465253 Problem Reactive depression F32.9 Active 06885649 Problem Abnormal laboratory test R89.9 Active 951106940 Problem Mild episode of recurrent major depressive disorder F33.0 Active 714791403 Problem Rosacea L71.9 Active 591162148 Problem Plantar wart of right foot B07.0 Active 28692270 Problem Generalized anxiety disorder F41.1 Active 52525984 Problem Mixed hyperlipidemia E78.2 Active 698474184 Problem Fibromyalgia M79.7 Active 345418057 Problem Right elbow pain M25.521 Active 56709848 Problem Hypothyroidism, unspecified type E03.9 Active 40713102 Problem Right wrist pain M25.531 Active 50911329 Problem Reflex sympathetic dystrophy G90.50 Active 07003029 Problem Venous insufficiency I87.2 Active 91105802 ALLERGIES Substance Reaction Event Type Date Status Robaxin Unknown Drug Allergy May, Active Penicillin V Potassium Unknown Drug Allergy May, Active Demerol Unknown Drug Allergy May, Active Codeine Sulfate Unknown Drug Allergy May, Active ENCOUNTERS Encounter Location Date Diagnosis [facility] [address] [facility] [id number] [address] Dec, [facility] [address] [id number] [address] Nov, [facility] [address] [id number] [address] Nov, [facility] [id number] [place] [address]98- 2694 Nov, [facility] [address] [address] October, Generalized anxiety disorder F41.1 and Mild episode of recurrent major depressive disorder F33.0 [facility] [id number] [place] [address] 39668- 9599 October, Fibromyalgia M79.7 [facility] [address] [address] October, [facility] [id number] [place] [address] 59579- 9322 October, Generalized anxiety disorder F41.1 and Mild episode of recurrent major depressive disorder F33.0 [place] [id number] [place] [address] 69002- 9963 October, [facility] [address] [address] Sep, Gastroesophageal reflux disease, esophagitis presence not specified K21.9 and Abnormal laboratory test R89.9 [place] [id number] [place] [address] 62343- 1663 Sep, Fibromyalgia M79.7 [facility] [id number] [place] [address] 09416- 7873 Sep, Generalized anxiety disorder F41.1 and Mild episode of recurrent major depressive disorder F33.0 [facility] [id number] [place] [address] 36094- 9560 Sep, Epigastric pain R10.13 [place] [address] [address]- 86[address] 10 Sep, 2017 Mild episode of recurrent major depressive disorder F33.0 and Generalized anxiety disorder F41.1 [place] [id number] [place] [address] 07885- 0341 Sep, Abnormal laboratory test R89.9 [place] [id number] [place] [address] 87431- [address] 02 Sep, 2017 Generalized anxiety disorder F41.1 and Mild episode of recurrent major depressive disorder F33.0 [facility] [id number] [place] [address] 62498- 5811 29 Aug, 2017 Epigastric pain R10.13 and Encounter for therapeutic drug level monitoring Z51.81 [facility]ALK [facility] [id number] [place] [address] 81718 -0749 28 Aug, 2017 Epigastric pain R10.13 and Gastro-esophageal reflux disease without esophagitis K21.9 [place] [address] 64[address]- 6[address] 22 Aug, 2017 [place] [address] 74[address]- 1566 Aug, Epigastric pain R10.13 [place] [address] 20995- 3322 Aug, Fibromyalgia M79.7 [place] [id number] [place] [address] 67853- 0244 14 Aug, 2017 [place] [id number] [place] [address] 70884- 6360 14 Aug, 2017 Generalized anxiety disorder F41.1 and Mild episode of recurrent major depressive disorder F33.0 [place] [id number] [place] [address] 01652- 6105 08 Aug, 2017 Epigastric pain R10.13 ; Reflex sympathetic dystrophy G90.50 and Arthritis M19.90 [place] [id number] [place] [address] 03811- 5530 Jul, Generalized anxiety disorder F41.1 and Mild episode of recurrent major depressive disorder F33.0 [place] [id number] [place] [address] 96766- 9977 27 Jul, 2017 BMI 40.0-44.9, adult Z68.41 ; Mild episode of recurrent major depressive disorder F33.0 and Generalized anxiety disorder F41.1 [facility] [address], [place] [address] Jul, Fibromyalgia M79.7 [facility] [id number] [place] [address] 16410 2546 Jun, Mild episode of recurrent major depressive disorder F33.0 and Generalized anxiety disorder F41.1 [facility] [id number] [place] [address] 05486 2546 Jun, Fibromyalgia M79.7 [facility] [id number] [place] [address] 55397 2546 Jun, Generalized anxiety disorder F41.1 and Mild episode of recurrent major depressive disorder F33.0 [facility] [address] [place] [address] 66503 2546 Jun, Generalized anxiety disorder F41.1 and Mild episode of recurrent major depressive disorder F33.0 [facility] [address] [place] [address] 27770 2546 Jun, Generalized anxiety disorder F41.1 and Mild episode of recurrent major depressive disorder F33.0 [facility] [address] [place] [address] 62661 2546 Jun, [facility] [address], [place] [address] 2546 Jun, Generalized anxiety disorder F41.1 and Mild episode of recurrent major depressive disorder F33.0 [facility] [address] [address] 2546 May, Fibromyalgia M79.7 [facility] [id number] [place] [address] 20401 2546 May, Generalized anxiety disorder F41.1 and Mild episode of recurrent major depressive disorder F33.0 [facility] [address] [id number] [address] 2546 May, Mixed hyperlipidemia E78.2 ; Arthritis M19.90 ; Reactive depression F32.9 and Hypothyroidism, unspecified type E03.9 [facility] [id number] [place] [address] 44074- 8241 May, Arthritis M19.90 ; Reactive depression F32.9 ; Mixed hyperlipidemia E78.2 and Hypothyroidism, unspecified type E03.9 [facility] [id number] [place] [address] 71234- 1268 Apr, Fibromyalgia M79.7 [facility] [id number] [place] [address] 55865- 1116 Apr, [facility] [address] 47364- 7393 Apr, Fibromyalgia M79.7 [facility] [id number] [place] [address] 96741- 9595 Mar, Fibromyalgia M79.7 [facility] [id number] [place] [address] 09656- 7886 Mar, [facility] [id number] [place] [address] 60990- 1836 Mar, Fibromyalgia M79.7 [facility] [id number] [place] [address] 03538- 7498 Mar, [facility] [id number] [place] [address] 33222- 4640 Feb, Reflex sympathetic dystrophy G90.50 ; Right arm pain M79.601 and Fibromyalgia M79.7 [facility] [id number] [place] [address] 91580- 9613 Feb, [facility] [id number] [place] [address] 44872- 3696 Feb, Anxiety F41.9 [facility] [id number] [place] [address] 79316- 4368 Feb, Fibromyalgia M79.7 [facility] [id number] [place] [address] 95264- 6466 Feb, [facility] [id number] [place] [address] 06666- 1166 Feb, [facility] [id number] [place] [address] 09666- 0921 Jan, Temporal headache R51 [facility] [address] 93512- 5907 Jan, Fibromyalgia M79.7 [facility] [id number] [place] [address] 77531- 0717 Dec, Fibromyalgia M79.7 [facility] [address] 20547- 7347 Nov, Peroneal tendonitis, unspecified laterality M76.70 and Plantar fasciitis, bilateral M72.2 [place] [address] 18873- 1276 Nov, Fibromyalgia M79.7 [facility] [id number] [place] [address] 31691- 5894 October, Fibromyalgia M79.7 [facility] [id number] [place] [address] 52524- 7185 October, Plantar fasciitis, bilateral M72.2 and Peroneal tendonitis, unspecified laterality M76.70 [place] [id number] [place] [address] 80671- 5970 October, Fibromyalgia M79.7 [facility] [id number] [place] [address] 73574- 7173 Sep, Anxiety F41.9 [place] [address] 68466- 0207 Aug, Anxiety F41.9 and Adjustment disorder with anxiety F43.22 [place] [id number] [place] [address] 10555- 5906 Aug, Pain of left foot M79.672 [facility] [address] 84088- 4428 Aug, Pain of left foot M79.672 and Pain in right foot M79.671 [facility] [address] 52506- 8336 Aug, Arthritis M19.90 ; Reactive depression F32.9 ; Fibromyalgia M79.7 ; Rosacea L71.9 ; Pain in right foot M79.671 and Pain of left foot M79.672 [place] [address] 62253- 4762 Aug, Anxiety F41.9 ; Adjustment disorder with anxiety F43.22 and Reactive depression F32.9 [place] [address] 95578- 8193 Aug, Right elbow pain M25.521 [place] [address] 85131- 1474 Aug, Plantar wart of right foot B07.0 and Actinic keratosis L57.0 [place] [address] 78669- 6641 Aug, Fibromyalgia M79.7 [place] [address] 77944- 1497 Jul, Arthritis M19.90 ; Hypothyroidism, unspecified type E03.9 ; Reactive depression F32.9 and Venous insufficiency I87.2 [place] [address] 85637- 1443 Jul, Gastroesophageal reflux disease, esophagitis presence not specified K21.9 [place] [address] 81072- 3323 Jul, Reflex sympathetic dystrophy G90.50 [place] [address] 12281- 2617 Jul, Anxiety F41.9 ; Adjustment disorder with anxiety F43.22 and Reactive depression F32.9 [facility] [id number] [place] [address] 38047- 8924 15 Jul, 2016 [facility] [address] 82691- 8303 03 Jul, 2016 Right elbow pain M25.521 [facility] [address] 72341- 9738 Jun, Fibromyalgia M79.7 [facility] [address] 22937- 9008 Jun, Anxiety F41.9 ; Adjustment disorder with anxiety F43.22 and Reactive depression F32.9 [place] [address] 66507- 5785 Jun, [facility] [address] 44651- 8118 Jun, Atypical chest pain R07.89 and Adjustment disorder with anxiety F43.22 [facility] [address] [id number] Jun, Chest pain, unspecified type R07.9 [facility] [id number] [place] [address] 10260- 2095 Jun, Fibromyalgia M79.7 [place] [address] 58752- 5909 May, Anxiety F41.9 [facility] [address] 93535- 2143 May, [place] [address] 50172- 4096 May, Right elbow pain M25.521 [place] [address] 39912- 1557 Apr, Reflex sympathetic dystrophy G90.50 and Encounter for immunization Z23 [place] [address], [place] [address]- 5528 Apr, [facility] [id number] [place] [address] 95401- 0729 14 Mar, 2016 [facility] [address] [id number] [address]- 6787 Feb, [facility] [id number] [place] [address] 98857- 7810 Feb, [facility] [id number] [place] [address] 97348- 0891 Jan, [facility] [id number] [place] [address] 95157- 7654 Jan, Right elbow pain M25.521 and Right wrist pain M25.531 [facility] [id number] [place] [address] 95529- 8908 Jan, [facility] [id number] [place] [address] 63710- 4743 Dec, Seborrheic keratoses L82.1 [facility] [id number] [place] [address] 01048- 1592 Dec, [facility] [address], [place] [address]- 4278 Dec, [facility] [id number] [place] [address] 23521- 3710 Dec, [facility] [address] [place] [address] 02565- 4134 Dec, Fibromyalgia M79.7 and Hypothyroidism, unspecified type E03.9 [facility] [address], [place] [address]- 1527 Dec, Seborrheic keratoses L82.1 [facility] [address], [place] [address]- 6159 Dec, [facility] [address] [facility] [id number] [address] Dec, [place] [id number] [address]- 55[address] Nov, Sebaceous cyst L72.3 [place] [id number] [address]- 3963 October, Breast cancer screening Z12.39 [place] [address], [place] [address]- 5484 October, Fibromyalgia M79.7 ; Hypothyroidism, unspecified type E03.9 and Reflex sympathetic dystrophy G90.50 [place] [address], [place] [address]- 8197 October, Reflex sympathetic dystrophy G90.50 ; Fibromyalgia M79.7 and Hypothyroidism, unspecified type E03.9 IMMUNIZATIONS No Known Immunizations SOCIAL HISTORY Never Assessed REASON FOR VISIT Headache, reports not here for headache, wants refills on medications, wants labs to get cholesterol checked. , trouble with snoring and tired all the time. CBrumbackRn PLAN OF CARE Activity Details Follow Up 3 Months Reason: VITAL SIGNS Height 62 in 2017-05-31 Weight 214.6 lbs 2017-05-31 Temperature 97.7 degrees Fahrenheit 2017-05-31 Heart Rate 76 bpm 2017-05-31 Respiratory Rate 18 2017-05-31 BMI 39.25 kg/m2 2017-05-31 Blood pressure systolic 122 mmHg 2017-05-31 Blood pressure diastolic 82 mmHg 2017-05-31 MEDICATIONS Medication Instructions Dosage Frequency Start Date End Date Duration Status Hydrocodone-Acetaminophen 7.5-325 MG Orally 3 times a day 1 tablet 8h 30 Apr, 2017 28 days Active Topiramate 200MG Orally twice a day 1 tablet 12h 30 Active Fiorinal 50-325-40 MG Orally every 4 hrs 1 capsule as needed 4h 11 Jan, 2017 Active Neurontin 300 MG Orally 3 times a day 1 capsule 8h Active Orphenadrine Citrate ER 100 MG Orally 2 times a day 1 tablet 12h 30 days Active Levothyroxine Sodium 75MCG TAKE ONE TABLET BY MOUTH ONCE DAILY 90 Active Pantoprazole Sodium 40MG Orally Once a day 1 tablet 24h 30 Active Excedrin Migraine 250-250-65 MG Orally every 6 hrs 2 tablets as needed 6h Active Mobic 7.5 MG Orally Once a day 1 tablet 24h Jul, 30 day(s) Not -Taking Prozac 20 mg Orally Once a day 3 capsule 24h Active RESULTS No Results PROCEDURES Procedure Date Ordered Result Body Site [facility] VISIT ESTABLISHED PATIENT May 31, 2017 INSTRUCTIONS MEDICATIONS ADMINISTERED No Known [...] Pain-VC 07/02/16 Hospitalization History Chest Pain - [facility] 10/06/17
--- OUTSIDE RECORDS SUMMARY | 2018-03-07 18:01 | XMS REPORT ---
Author Author BAMBI POLLY Organization [facility] Address [address] [place] [address] Care Team Providers Care Ict Trainer Name Role Phone MANAVAVANI POLLY Unavailable PROBLEMS Type Condition ICD9-CM Code GGG75-XT Code Onset Dates Condition Status SNOMED Code Problem Arthritis M19.90 Active 3085283 Problem Gastroesophageal reflux disease, esophagitis presence not specified K21.9 Active 465864352 Problem Reactive depression F32.9 Active 28897325 Problem Abnormal laboratory test R89.9 Active 140809705 Problem Mild episode of recurrent major depressive disorder F33.0 Active 413581781 Problem Rosacea L71.9 Active 699052088 Problem Plantar wart of right foot B07.0 Active 92789878 Problem Generalized anxiety disorder F41.1 Active 36912380 Problem Mixed hyperlipidemia E78.2 Active 813762968 Problem Fibromyalgia M79.7 Active 360678970 Problem Right elbow pain M25.521 Active 01654844 Problem Hypothyroidism, unspecified type E03.9 Active 14258884 Problem Right wrist pain M25.531 Active 06399210 Problem Reflex sympathetic dystrophy G90.50 Active 36498311 Problem Venous insufficiency I87.2 Active 39480400 ALLERGIES Substance Reaction Event Type Date Status Robaxin Unknown Drug Allergy Jun, Active Penicillin V Potassium Unknown Drug Allergy Jun, Active Demerol Unknown Drug Allergy Jun, Active Codeine Sulfate Unknown Drug Allergy Jun, Active ENCOUNTERS Encounter Location Date Diagnosis [facility] [address] [facility] [id number] [address] Dec, [facility] [address] [id number] [address] Dec, [facility] [address] [facility] [id number] [place] [address] Nov, [facility] [address] [address] 19 Nov, 2017 Acute right ankle pain M25.571 ; Acute pain of right knee M25.561 ; Acute left-sided low back pain without sciatica M54.5 and Right leg pain M79.604 [facility] [id number] [place] [address] 93372- 5454 15 Nov, 2017 [facility] [id number] [place] [address] 05669- 9826 14 Nov, 2017 [facility] [id number] [place] [address] 04918- 9278 Nov, Generalized anxiety disorder F41.1 and Mild episode of recurrent major depressive disorder F33.0 [facility] [id number] [place] [address] 99084- 7039 Nov, [facility] [id number] [place] [address] 45556- 2591 October, Generalized anxiety disorder F41.1 and Mild episode of recurrent major depressive disorder F33.0 [facility] [id number] [place] [address] 57200- 6379 October, Fibromyalgia M79.7 [facility] [id number] [place] [address] 76373- 1400 October, [facility] [id number] [place] [address] 32126- 9237 October, Generalized anxiety disorder F41.1 and Mild episode of recurrent major depressive disorder F33.0 [facility] [id number] [place] [address] 02914- 1308 October, [facility] [id number] [place] [address] 00963- 1729 Sep, Gastroesophageal reflux disease, esophagitis presence not specified K21.9 and Abnormal laboratory test R89.9 [facility] [id number] [place] [address] 70433- 7968 Sep, Fibromyalgia M79.7 [facility] [id number] [place] [address] 08969- 9336 17 Sep, 2017 Generalized anxiety disorder F41.1 and Mild episode of recurrent major depressive disorder F33.0 [facility] [id number] [place] [address] 83345 2547 13 Sep, 2017 Epigastric pain R10.13 [facility] [id number] [place] [address] 43299- 8044 10 Sep, 2017 Mild episode of recurrent major depressive disorder F33.0 and Generalized anxiety disorder F41.1 [facility] [address] 9[address]34- 3353 02 Sep, 2017 Abnormal laboratory test R89.9 [facility] [id number] [place] [address] 10414- 3801 Sep, Generalized anxiety disorder F41.1 and Mild episode of recurrent major depressive disorder F33.0 [facility] [id number] [place] [address] 81424- 8898 29 Aug, 2017 Epigastric pain R10.13 and Encounter for therapeutic drug level monitoring Z51.[address] [facility] [id number] [place] [address] 90007 -2174 28 Aug, 2017 Epigastric pain R10.13 and Gastro-esophageal reflux disease without esophagitis K21.9 [facility] [id number] [place] [address] 87484- 8871 Aug, [facility] [id number] [place] [address] 35602- 6353 Aug, Epigastric pain R10.13 [facility] [id number] [place] [address] 60626- 0473 20 Aug, 2017 Fibromyalgia M79.7 [facility] [id number] [place] [address] 42093- 2122 14 Aug, 2017 [facility] [id number] [place] [address] 97016- 4481 14 Aug, 2017 Generalized anxiety disorder F41.1 and Mild episode of recurrent major depressive disorder F33.0 [place] [id number] [place] [address] 81245- 3566 08 Aug, 2017 Epigastric pain R10.13 ; Reflex sympathetic dystrophy G90.50 and Arthritis M19.90 [place] [id number] [place] [address] 64407- 9035 Jul, Generalized anxiety disorder F41.1 and Mild episode of recurrent major depressive disorder F33.0 [place] [id number] [place] [address] 47704- 9396 Jul, BMI 40.0-44.9, adult Z68.41 ; Mild episode of recurrent major depressive disorder F33.0 and Generalized anxiety disorder F41.1 [place] [id number] [place] [address] 90311- 3024 Jul, Fibromyalgia M79.7 [place] [address] 92698- 3770 Jun, Mild episode of recurrent major depressive disorder F33.0 and Generalized anxiety disorder F41.1 [place] [id number] [place] [address] 77112- 7692 Jun, Fibromyalgia M79.7 [place] [id number] [place] [address] 63385- 9131 Jun, Generalized anxiety disorder F41.1 and Mild episode of recurrent major depressive disorder F33.0 [place] [id number] [place] [address] 00698- 4353 Jun, Generalized anxiety disorder F41.1 and Mild episode of recurrent major depressive disorder F33.0 [place] [id number] [place] [address] 71650- 7267 Jun, Generalized anxiety disorder F41.1 and Mild episode of recurrent major depressive disorder F33.0 [place] [address] [place] [address]- 8010 Jun, [facility] [id number] [place] [address] 75425- 8100 Jun, Generalized anxiety disorder F41.1 and Mild episode of recurrent major depressive disorder F33.0 [facility] [id number] [place] [address] 65772- 7040 May, Fibromyalgia M79.7 [facility] [id number] [place] [address] 00208- 0882 May, Generalized anxiety disorder F41.1 and Mild episode of recurrent major depressive disorder F33.0 [facility] [id number] [place] [address] 01621- 6225 May, Mixed hyperlipidemia E78.2 ; Arthritis M19.90 ; Reactive depression F32.9 and Hypothyroidism, unspecified type E03.9 [facility] [id number] [place] [address] 64880- 7763 May, Arthritis M19.90 ; Reactive depression F32.9 ; Mixed hyperlipidemia E78.2 and Hypothyroidism, unspecified type E03.9 [facility] [id number] [place] [address] 36773- 6808 Apr, Fibromyalgia M79.7 [facility] [id number] [place] [address] 04035- 8199 Apr, [facility] [id number] [place] [address] 89483- 9172 Apr, Fibromyalgia M79.7 [facility] [id number] [place] [address] 32727- 0516 Mar, Fibromyalgia M79.7 [facility] [id number] [place] [address] 08892- 2279 Mar, [facility] [id number] [place] [address] 76405- 7810 Mar, Fibromyalgia M79.7 [facility] [id number] [place] [address] 88232- 2151 Mar, [facility] [address] 57078- 4757 Feb, Reflex sympathetic dystrophy G90.50 ; Right arm pain M79.601 and Fibromyalgia M79.7 [facility] [address] 19742- 0954 Feb, [facility] [address] 73509- 8505 Feb, Anxiety F41.9 [facility] [address] 04171- 6336 Feb, Fibromyalgia M79.7 [facility] [address] 96609- 2234 Feb, [facility] [address] 47584- 6920 Feb, [facility] [id number] [place] [address] 76986- 4380 Jan, Temporal headache R51 [facility] [address] 40561- 0309 Jan, Fibromyalgia M79.7 [facility] [id number] [place] [address] 83520- 2933 Dec, Fibromyalgia M79.7 [facility] [id number] [place] [address] 89443- 9032 Nov, Peroneal tendonitis, unspecified laterality M76.70 and Plantar fasciitis, bilateral M72.2 [facility] [address] 15609- 9181 Nov, Fibromyalgia M79.7 [facility] [id number] [place] [address] 57885- 0358 October, Fibromyalgia M79.7 [facility] [address] [place] [address]- 6939 October, Plantar fasciitis, bilateral M72.2 and Peroneal tendonitis, unspecified laterality M76.70 [place] [address] 83369- 2285 October, Fibromyalgia M79.7 [place] [address] 78088- 2535 Sep, Anxiety F41.9 [place] [address] 85537- 9417 Aug, Anxiety F41.9 and Adjustment disorder with anxiety F43.22 [address] [address] [address] 58683- 9465 Aug, Pain of left foot M79.672 [address] 67102- 7367 Aug, Pain of left foot M79.672 and Pain in right foot M79.671 [address] [address] 19412- 3896 Aug, Arthritis M19.90 ; Reactive depression F32.9 ; Fibromyalgia M79.7 ; Rosacea L71.9 ; Pain in right foot M79.671 and Pain of left foot M79.672 [address] [id number] [place] [address] 34469- 0045 Aug, Anxiety F41.9 ; Adjustment disorder with anxiety F43.22 and Reactive depression F32.9 [address] [id number] [place] [address] 88993- 8297 Aug, Right elbow pain M25.521 [address] [address] 92492- 4113 Aug, Plantar wart of right foot B07.0 and Actinic keratosis L57.0 [address] [address] 50297- 2028 Aug, Fibromyalgia M79.7 [address] [place] [address] 57591- 3079 Jul, Arthritis M19.90 ; Hypothyroidism, unspecified type E03.9 ; Reactive depression F32.9 and Venous insufficiency I87.2 [address] [address] 33238- 1083 Jul, Gastroesophageal reflux disease, esophagitis presence not specified K21.9 [place] [address] 73792- 1742 Jul, Reflex sympathetic dystrophy G90.50 [place] [address] 88402- 4956 Jul, Anxiety F41.9 ; Adjustment disorder with anxiety F43.22 and Reactive depression F32.9 [address] [address] 86192- 8020 Jul, [address] [address] 32864- 7748 Jul, Right elbow pain M25.521 [address] [address] 13846- 5444 Jun, Fibromyalgia M79.7 [place] [id number] [place] [address] 58487- 3003 Jun, Anxiety F41.9 ; Adjustment disorder with anxiety F43.22 and Reactive depression F32.9 [address] [address] 81144- 6167 Jun, [address] [address] 34165- 5175 Jun, Atypical chest pain R07.89 and Adjustment disorder with anxiety F43.22 [facility] [address] [id number] Jun, Chest pain, unspecified type R07.9 [facility] [id number] [place] [address] 87092- 3696 Jun, Fibromyalgia M79.7 [facility] [address] 20049- 4009 May, Anxiety F41.9 [facility] [address] 28002- 5938 May, [facility] [address] 22973- 3790 May, Right elbow pain M25.521 [facility] [address] 60795- 1892 Apr, Reflex sympathetic dystrophy G90.50 and Encounter for immunization Z23 [facility] [address] 98072- 9520 Apr, [facility] [address] 53581- 8033 Mar, [facility] [address] 52049- 5658 Feb, [facility] [address] 61767- 4905 Feb, [facility] [id number] [place] [address] 53178- 8403 Jan, [facility] [address] 37531- 8841 Jan, Right elbow pain M25.521 and Right wrist pain M25.531 [facility] [address] 65753- 7283 Jan, [facility] [address] 40134- 7421 Dec, Seborrheic keratoses L82.1 [facility] [address] 37324- 9926 Dec, [facility] [address] [address]- 4453 Dec, [facility] [id number] [place] [address] 25639- 2618 Dec, [facility] [id number] [place] [address] 13487- 8152 Dec, Fibromyalgia M79.7 and Hypothyroidism, unspecified type E03.9 [facility] [id number] [place] [address] 05923- 2117 Dec, Seborrheic keratoses L82.1 [place] [id number] [place] [address] 28561- 3386 Dec, [place] [id number] [place] [address] 20279- 6497 Dec, [place] [id number] [place] [address] 65760- 1607 Nov, Sebaceous cyst L72.3 [place] [id number] [place] [address] 01994- 5013 October, Breast cancer screening Z12.39 [place] [id number] [place] [address] 24679- 7804 October, Fibromyalgia M79.7 ; Hypothyroidism, unspecified type E03.9 and Reflex sympathetic dystrophy G90.50 [place] [id number] [address]- 4226 October, Reflex sympathetic dystrophy G90.50 ; Fibromyalgia M79.7 and Hypothyroidism, unspecified type E03.9 IMMUNIZATIONS No Known Immunizations SOCIAL HISTORY Never Assessed REASON FOR VISIT f/u PLAN OF CARE Activity Details Follow Up 4 Weeks Reason: VITAL SIGNS Height 62 in 2017-06-22 Weight 212.3 lbs 2017-06-22 Heart Rate 88 bpm 2017-06-22 Respiratory Rate 20 2017-06-22 BMI 38.83 kg/m2 2017-06-22 Blood pressure systolic 130 mmHg 2017-06-22 Blood pressure diastolic 88 mmHg 2017-06-22 MEDICATIONS Medication Instructions Dosage Frequency Start Date End Date Duration Status Excedrin Migraine 250-250-65 MG Orally every 6 hrs 2 tablets as needed 6h Active Fiorinal 50-325-40 MG Orally every 4 hrs 1 capsule as needed 4h 11 Jan, 2017 Active Orphenadrine Citrate ER 100 MG Orally 2 times a day 1 tablet 12h 30 days Active Neurontin 300 MG Orally 3 times a day 1 capsule 8h Not-Taking Prozac 20 mg Orally Once a day 3 capsule 24h Active Levothyroxine Sodium 75MCG TAKE ONE TABLET BY MOUTH ONCE DAILY 90 Active Mobic 7.5 MG Orally Once a day 1 tablet 24h 21 Jul, 2016 30 day(s) Not -Taking Hydrocodone-Acetaminophen 7.5-325 MG Orally 3 times a day 1 tablet 8h May, 28 days Active HydrOXYzine HCl 10 MG Orally three times a day as needed for anxiety and sleep 1 tablet May, Active Topiramate 200MG Orally twice a day 1 tablet 12h 30 Active Pantoprazole Sodium 40MG Orally Once a day 1 tablet 24h 90 Active RESULTS No Results PROCEDURES Procedure Date Ordered Result Body Site [facility] VISIT ESTABLISHED PATIENT Jun 22, 2017 INSTRUCTIONS MEDICATIONS ADMINISTERED No Known Medications [...] resection Hospitalization History surgeries Hospitalization History Chest Pain-[facility] 07/02/16 Hospitalization History Chest Pain - [facility] 10/06/17
--- OUTSIDE RECORDS SUMMARY | 2018-03-07 18:01 | XMS REPORT ---
Author Author FRANK CHAPMAN Organization [facility] Address [address] [place] [address] Care Team Providers Care Cte Teacher Name Role Phone FRANK CHAPMAN Unavailable PROBLEMS Type Condition ICD9-CM Code WIF04-PC Code Onset Dates Condition Status SNOMED Code Problem Reactive depression F32.9 Active 22911609 Problem Plantar wart of right foot B07.0 Active 10108938 Problem Gastroesophageal reflux disease, esophagitis presence not specified K21.9 Active 492478111 Problem Internal derangement of right knee M23.91 Active [id number] Problem Abnormal laboratory test R89.9 Active 287708887 Problem Mixed hyperlipidemia E78.2 Active 164732375 Problem Rosacea L71.9 Active 771647256 Problem Mild episode of recurrent major depressive disorder F33.0 Active 834654824 Problem Generalized anxiety disorder F41.1 Active 75675976 Problem Hypothyroidism, unspecified type E03.9 Active 13859682 Problem Right elbow pain M25.521 Active 39808239 Problem Right wrist pain M25.531 Active 97599949 Problem Reflex sympathetic dystrophy G90.50 Active 21799926 Problem Venous insufficiency I87.2 Active 15036389 Problem Fibromyalgia M79.7 Active 861820304 Problem Arthritis M19.90 Active 2955706 ALLERGIES No Information ENCOUNTERS Encounter Location Date Diagnosis [facility] [id number] [address] Jan, [facility] [address] [address] Jan, [facility] [address] [address] Jan, [facility] [address] [address] Jan, [facility] [address] [address] Dec, [facility] [address] [address] Dec, [facility] [id number] [address] Dec, [facility] [address] [address] Dec, [facility] [address] [facility] [id number] [address] Dec, [facility] [address] [address] Dec, Mild episode of recurrent major depressive disorder F33.0 and Generalized anxiety disorder F41.1 [facility] [address] [address] Nov, [facility] [address] [address] Nov, [facility] [address] [address] Nov, [facility] [address] [address] Nov, Internal derangement of right knee M23.91 [facility] [address] [address] Nov, Generalized anxiety disorder F41.1 and Mild episode of recurrent major depressive disorder F33.0 [facility] [id number] [address] Nov, Internal derangement of right knee M23.91 [facility] [id number] [address] Nov, Acute right ankle pain M25.571 ; Acute pain of right knee M25.561 ; Acute left-sided low back pain without sciatica M54.5 and Right leg pain M79.604 [facility] [id number] [place] [address] 91628- 2267 15 Nov, 2017 [facility] [id number] [place] [address] 03194- 7706 14 Nov, 2017 Fibromyalgia M79.7 [facility] [id number] [place] [address] 28709- 3511 13 Nov, 2017 Generalized anxiety disorder F41.1 and Mild episode of recurrent major depressive disorder F33.0 [facility] [id number] [place] [address] 06521- 1438 Nov, [facility] [id number] [place] [address] 58772- 9237 October, Generalized anxiety disorder F41.1 and Mild episode of recurrent major depressive disorder F33.0 [place] [id number] [place] [address] 91802- 5375 October, Fibromyalgia M79.7 [facility] [id number] [place] [address] 39677- 9209 October, [facility] [id number] [place] [address] 65755- 7108 October, Generalized anxiety disorder F41.1 and Mild episode of recurrent major depressive disorder F33.0 [place] [address] [place] [address] 50054- 4498 October, [facility] [id number] [place] [address] 03962- 8959 Sep, Gastroesophageal reflux disease, esophagitis presence not specified K21.9 and Abnormal laboratory test R89.9 [facility] [id number] [place] [address] 57492- 3146 Sep, Fibromyalgia M79.7 [facility] [id number] [place] [address] 04264- 4770 Sep, Generalized anxiety disorder F41.1 and Mild episode of recurrent major depressive disorder F33.0 [facility] [address] [place] [address] 99402- 7478 Sep, Epigastric pain R10.13 [facility] [id number] [place] [address] 49144- 5950 10 Sep, 2017 Mild episode of recurrent major depressive disorder F33.0 and Generalized anxiety disorder F41.1 [facility] [id number] [place] [address] 41039- 7081 Sep, Abnormal laboratory test R89.9 [facility] [id number] [place] [address] 03255- 6914 Sep, Generalized anxiety disorder F41.1 and Mild episode of recurrent major depressive disorder F33.0 [facility] [id number] [place] [address] 85818- 5691 29 Aug, 2017 Epigastric pain R10.13 and Encounter for therapeutic drug level monitoring Z51.81 [facility] [id number] [place] [address] 44219 -2036 28 Aug, 2017 Epigastric pain R10.13 and Gastro-esophageal reflux disease without esophagitis K21.9 [facility] [id number] [place] [address] 32150- 6802 22 Aug, 2017 [facility] [id number] [place] [address] 00592- 0971 Aug, Epigastric pain R10.13 [facility] [id number] [place] [address] 79735- 8147 20 Aug, 2017 Fibromyalgia M79.7 [facility] [id number] [place] [address] 13261- 0661 14 Aug, 2017 [facility] [id number] [place] [address] 17480- 5239 14 Aug, 2017 Generalized anxiety disorder F41.1 and Mild episode of recurrent major depressive disorder F33.0 [facility] [id number] [place] [address] 58304- 4337 Aug, Epigastric pain R10.13 ; Reflex sympathetic dystrophy G90.50 and Arthritis M19.90 [facility] [id number] [place] [address] 11392- 9740 Jul, Generalized anxiety disorder F41.1 and Mild episode of recurrent major depressive disorder F33.0 [address] [place] [address] [address] 8927 Jul, BMI 40.0-44.9, adult Z68.41 ; Mild episode of recurrent major depressive disorder F33.0 and Generalized anxiety disorder F41.1 [address] [address] 98642- 7390 Jul, Fibromyalgia M79.7 [facility] [id number] [place] [address] 72560- 5696 Jun, Mild episode of recurrent major depressive disorder F33.0 and Generalized anxiety disorder F41.1 [place] [id number] [place] [address] 19722- 5425 Jun, Fibromyalgia M79.7 [facility] [address] 49748- 1624 Jun, Generalized anxiety disorder F41.1 and Mild episode of recurrent major depressive disorder F33.0 [place] [id number] [place] [address] 99125- 8581 Jun, Generalized anxiety disorder F41.1 and Mild episode of recurrent major depressive disorder F33.0 [facility] [id number] [place] [address] 35474- 7507 Jun, Generalized anxiety disorder F41.1 and Mild episode of recurrent major depressive disorder F33.0 [facility] [id number] [place] [address] 23548- 5491 Jun, [facility] [id number] [place] [address] 99416- 8681 Jun, Generalized anxiety disorder F41.1 and Mild episode of recurrent major depressive disorder F33.0 [facility] [id number] [place] [address] 07558- 4396 May, Fibromyalgia M79.7 [facility] [id number] [place] [address] 09024- 6664 May, Generalized anxiety disorder F41.1 and Mild episode of recurrent major depressive disorder F33.0 [facility] [id number] [place] [address] 90276- 9626 May, Mixed hyperlipidemia E78.2 ; Arthritis M19.90 ; Reactive depression F32.9 and Hypothyroidism, unspecified type E03.9 [facility] [id number] [place] [address] 83766- 0266 May, Arthritis M19.90 ; Reactive depression F32.9 ; Mixed hyperlipidemia E78.2 and Hypothyroidism, unspecified type E03.9 [facility] [id number] [place] [address] 66352- 4165 Apr, Fibromyalgia M79.7 [facility] [id number] [place] [address] 89696- 7964 Apr, [facility] [id number] [place] [address] 74451- 3350 Apr, Fibromyalgia M79.7 [facility] [id number] [place] [address] 49816- 5756 Mar, Fibromyalgia M79.7 [facility] [id number] [place] [address] 64441- 6019 Mar, [facility] [id number] [place] [address] 89492- 1209 Mar, Fibromyalgia M79.7 [facility] [id number] [place] [address] 12962- 9542 Mar, [facility] [id number] [place] [address] 42770- 7643 Feb, Reflex sympathetic dystrophy G90.50 ; Right arm pain M79.601 and Fibromyalgia M79.7 [facility] [id number] [place] [address] 09263- 4180 Feb, [facility] [address] 27671- 8715 Feb, Anxiety F41.9 [facility] [address] 92470- 8244 Feb, Fibromyalgia M79.7 [facility] [id number] [place] [address] 65151- 6496 Feb, [facility] [address] 26581- 7883 Feb, [facility] [address] 47833- 0158 Jan, Temporal headache R51 [facility] [address] 66313- 8301 Jan, Fibromyalgia M79.7 [facility] [id number] [place] [address] 60763- 5478 Dec, Fibromyalgia M79.7 [facility] [id number] [place] [address] 33749- 4653 Nov, Peroneal tendonitis, unspecified laterality M76.70 and Plantar fasciitis, bilateral M72.2 [facility] [id number] [place] [address] 76405- 2741 Nov, Fibromyalgia M79.7 [facility] [id number] [place] [address] 71375- 9705 October, Fibromyalgia M79.7 [facility] [id number] [place] [address] 95902- 0546 October, Plantar fasciitis, bilateral M72.2 and Peroneal tendonitis, unspecified laterality M76.70 [facility] [address] [place] [address]- 1269 October, Fibromyalgia M79.7 [address] [address] 99623- 2923 Sep, Anxiety F41.9 [place] [id number] [place] [address] 41184- 0029 Aug, Anxiety F41.9 and Adjustment disorder with anxiety F43.22 [address] [address] 79903- 3089 Aug, Pain of left foot M79.672 [place] [address] 21628- 7560 Aug, Pain of left foot M79.672 and Pain in right foot M79.671 [place] [address] 35851- 8775 Aug, Arthritis M19.90 ; Reactive depression F32.9 ; Fibromyalgia M79.7 ; Rosacea L71.9 ; Pain in right foot M79.671 and Pain of left foot M79.672 [address] [address] 35986- 9941 Aug, Anxiety F41.9 ; Adjustment disorder with anxiety F43.22 and Reactive depression F32.9 [place] [id number] [place] [address] 38506- 8423 Aug, Right elbow pain M25.521 [place] [address] 50587- 1674 Aug, Plantar wart of right foot B07.0 and Actinic keratosis L57.0 [address] [address] 90791- 7173 Aug, Fibromyalgia M79.7 [place] [id number] [place] [address] 65413- 3581 Jul, Arthritis M19.90 ; Hypothyroidism, unspecified type E03.9 ; Reactive depression F32.9 and Venous insufficiency I87.2 [address] [address] 39239- 7626 Jul, Gastroesophageal reflux disease, esophagitis presence not specified K21.9 [place] [address] 91328- 5902 Jul, Reflex sympathetic dystrophy G90.50 [place] [address] 78968- 4735 Jul, Anxiety F41.9 ; Adjustment disorder with anxiety F43.22 and Reactive depression F32.9 [address] [address] 08458- 5689 Jul, [place] [address] 71356- 4107 Jul, Right elbow pain M25.521 [place] [address] 58125- 3933 Jun, Fibromyalgia M79.7 [place] [address] 82385- 2320 Jun, Anxiety F41.9 ; Adjustment disorder with anxiety F43.22 and Reactive depression F32.9 [address] [address] 91523- 4336 Jun, [address] [address] 29131- 8558 Jun, Atypical chest pain R07.89 and Adjustment disorder with anxiety F43.22 [id number] Jun, Chest pain, unspecified type R07.9 [address] [address] 22415- 1073 Jun, Fibromyalgia M79.7 [place] [address] 83240- 1801 May, Anxiety F41.9 [facility] [id number] [place] [address] 02852- 9273 May, [facility] [address] 84193- 0083 May, Right elbow pain M25.521 [facility] [address] 40109- 7778 Apr, Reflex sympathetic dystrophy G90.50 and Encounter for immunization Z23 [facility] [address] 34790- 3695 Apr, [facility] [address] 59867- 7153 Mar, [facility] [id number] [place] [address] 37383- 7059 Feb, [facility] [address] 83722- 9775 Feb, [facility] [id number] [place] [address] 37949- 9313 Jan, [facility] [id number] [place] [address] 35910- 6233 Jan, Right elbow pain M25.521 and Right wrist pain M25.531 [facility] [id number] [place] [address] 96825- 1725 Jan, [facility] [id number] [place] [address] 17814- 2393 Dec, Seborrheic keratoses L82.1 [facility] [id number] [place] [address] 77051- 2034 Dec, [facility] [id number] [place] [address] 85839- 9932 Dec, [facility] [id number] [place] [address] 28158- 5468 Dec, [facility] [address] [place] [address] 66260- 1159 Dec, Fibromyalgia M79.7 and Hypothyroidism, unspecified type E03.9 [place] [address] [place] [address] 19556- 9997 Dec, Seborrheic keratoses L82.1 [place] [id number] [place] [address] 62184- 8133 Dec, [facility] [id number] [place] [address] 95690- 4290 Dec, [place] [id number] [place] [address] 47915- 1855 Nov, Sebaceous cyst L72.3 [place] [id number] [place] [address] 92083- 5382 October, Breast cancer screening Z12.39 [place] [id number] [place] [address] 14522- 5700 October, Fibromyalgia M79.7 ; Hypothyroidism, unspecified type E03.9 and Reflex sympathetic dystrophy G90.50 [place] [address] [place] [address] 51991- 0333 October, Reflex sympathetic dystrophy G90.50 ; Fibromyalgia M79.7 and Hypothyroidism, unspecified type E03.9 IMMUNIZATIONS No Known Immunizations SOCIAL HISTORY Never Assessed REASON FOR VISIT f/u, Anxiety and depresson. PLAN OF CARE Activity Details Follow Up 2 Weeks Reason:anxiety & depression VITAL SIGNS MEDICATIONS Unknown Medications RESULTS No Results PROCEDURES Procedure Date Ordered Result Body Site [facility] VISIT MENTAL HEALTH ESTAB PT Aug 17, 2017 Psychotherapy, patient &/family, 45 minutes, established patient Aug 17, 2017 INSTRUCTIONS MEDICATIONS ADMINISTERED No Known Medications [...]
--- OUTSIDE RECORDS SUMMARY | 2018-03-07 18:02 | XMS REPORT ---
Author Author BAMBI POLLY [facility] Address [address] [place] [address] Care Team Providers Care Kinesiologist Name Role Phone MANAVKAYA VARMAA Unavailable PROBLEMS Type Condition ICD9-CM Code KBR37-RT Code Onset Dates Condition Status SNOMED Code Problem Arthritis M19.90 Active 5537329 Problem Gastroesophageal reflux disease, esophagitis presence not specified K21.9 Active 777280691 Problem Reactive depression F32.9 Active 77956446 Problem Abnormal laboratory test R89.9 Active 317816880 Problem Mild episode of recurrent major depressive disorder F33.0 Active 664786357 Problem Rosacea L71.9 Active 466748800 Problem Plantar wart of right foot B07.0 Active 00428565 Problem Generalized anxiety disorder F41.1 Active 71595403 Problem Mixed hyperlipidemia E78.2 Active 001256755 Problem Fibromyalgia M79.7 Active 094877770 Problem Right elbow pain M25.521 Active 24915836 Problem Hypothyroidism, unspecified type E03.9 Active 11911182 Problem Right wrist pain M25.531 Active 87938028 Problem Reflex sympathetic dystrophy G90.50 Active 75146680 Problem Venous insufficiency I87.2 Active 35360101 ALLERGIES No Information ENCOUNTERS Encounter Location Date Diagnosis [facility] [id number], [place] [address] Dec, [facility] [id number] [address] Dec, [facility] [id number] [place] [address] 45762- 1077 Nov, [facility] [id number], [place] [address] Nov, [facility] [id number] [place] [address] 32117- 0675 Nov, [facility] [id number] [place] [address] 46163- 1508 Nov, Generalized anxiety disorder F41.1 and Mild episode of recurrent major depressive disorder F33.0 [facility] [id number] [place] [address] 38271- 4637 Nov, [facility] [address] 15940- 9380 October, Generalized anxiety disorder F41.1 and Mild episode of recurrent major depressive disorder F33.0 [facility] [id number] [place] [address] 18205- 0994 October, Fibromyalgia M79.7 [facility] [id number] [place] [address] 98041- 6365 October, [facility] [address] 23279- 2208 October, Generalized anxiety disorder F41.1 and Mild episode of recurrent major depressive disorder F33.0 [facility] [id number] [place] [address] 12606- 6044 October, [facility] [id number] [place] [address] 77683- 2442 Sep, Gastroesophageal reflux disease, esophagitis presence not specified K21.9 and Abnormal laboratory test R89.9 [facility] [id number] [place] [address] 74321- 2872 Sep, Fibromyalgia M79.7 [facility] [id number] [place] [address] 10883- 2534 Sep, Generalized anxiety disorder F41.1 and Mild episode of recurrent major depressive disorder F33.0 [facility] [id number] [place] [address] 72135- 1255 Sep, Epigastric pain R10.13 [facility] [address] 43536- 0250 Sep, Mild episode of recurrent major depressive disorder F33.0 and Generalized anxiety disorder F41.1 [facility] [id number] [place] [address] 51860- 7293 Sep, Abnormal laboratory test R89.9 [facility] [id number] [place] [address] 95021- 7398 Sep, Generalized anxiety disorder F41.1 and Mild episode of recurrent major depressive disorder F33.0 [facility] [address] 19925- 6473 29 Aug, 2017 Epigastric pain R10.13 and Encounter for therapeutic drug level monitoring Z51.81 [facility] [id number] [place] [address] 13970 -2548 Aug, Epigastric pain R10.13 and Gastro-esophageal reflux disease without esophagitis K21.9 [facility] [address] 16763- 2756 Aug, [facility] [address] 31874- 7848 Aug, Epigastric pain R10.13 [facility] [address] 64249- 7810 20 Aug, 2017 Fibromyalgia M79.7 [facility] [address] 00020- 7147 14 Aug, 2017 [facility] [address] 53776- 2363 14 Aug, 2017 Generalized anxiety disorder F41.1 and Mild episode of recurrent major depressive disorder F33.0 [facility] [address] 64814- 3306 08 Aug, 2017 Epigastric pain R10.13 ; Reflex sympathetic dystrophy G90.50 and Arthritis M19.90 [facility] [id number] [place] [address] 45605- 2051 Jul, Generalized anxiety disorder F41.1 and Mild episode of recurrent major depressive disorder F33.0 [facility] [id number] [place] [address] 04695- 7406 Jul, BMI 40.0-44.9, adult Z68.41 ; Mild episode of recurrent major depressive disorder F33.0 and Generalized anxiety disorder F41.1 [facility] [id number] [place] [address] 55403- 8456 Jul, Fibromyalgia M79.7 [facility] [id number] [place] [address] 89683- 7706 Jun, Mild episode of recurrent major depressive disorder F33.0 and Generalized anxiety disorder F41.1 [facility] [id number] [place] [address] 43343- 2879 Jun, Fibromyalgia M79.7 [facility] [id number] [place] [address] 14989- 3339 Jun, Generalized anxiety disorder F41.1 and Mild episode of recurrent major depressive disorder F33.0 [facility] [id number] [place] [address] 74895- 1352 Jun, Generalized anxiety disorder F41.1 and Mild episode of recurrent major depressive disorder F33.0 [facility] [id number] [place] [address] 50412- 7890 Jun, Generalized anxiety disorder F41.1 and Mild episode of recurrent major depressive disorder F33.0 [facility] [id number] [place] [address] 52689- 9156 Jun, [facility] [id number] [place] [address] 70717- 5450 Jun, Generalized anxiety disorder F41.1 and Mild episode of recurrent major depressive disorder F33.0 [facility] [id number] [place] [address] 09715- 5889 May, Fibromyalgia M79.7 [facility] [id number] [place] [address] 14531- 6918 May, Generalized anxiety disorder F41.1 and Mild episode of recurrent major depressive disorder F33.0 [facility] [id number] [place] [address] 98701- 3693 May, Mixed hyperlipidemia E78.2 ; Arthritis M19.90 ; Reactive depression F32.9 and Hypothyroidism, unspecified type E03.9 [facility] [address] 21534- 7191 May, Arthritis M19.90 ; Reactive depression F32.9 ; Mixed hyperlipidemia E78.2 and Hypothyroidism, unspecified type E03.9 [facility] [id number] [place] [address] 30710- 1360 Apr, Fibromyalgia M79.7 [facility] [id number] [place] [address] 87211- 3404 Apr, [facility] [address] 00916- 9706 Apr, Fibromyalgia M79.7 [facility] [id number] [place] [address] 93416- 4618 Mar, Fibromyalgia M79.7 [facility] [id number] [place] [address] 65144- 5479 Mar, [facility] [id number] [place] [address] 10904- 2626 Mar, Fibromyalgia M79.7 [facility] [id number] [place] [address] 00632- 2933 Mar, [facility] [id number] [place] [address] 22811- 8585 Feb, Reflex sympathetic dystrophy G90.50 ; Right arm pain M79.601 and Fibromyalgia M79.7 [facility] [id number] [place] [address] 63020- 3322 Feb, [facility] [address] [place] [address] 0945 07 Feb, 2017 Anxiety F41.9 [facility] [address] 45168- 2688 06 Feb, 2017 Fibromyalgia M79.7 [facility] [id number] [place] [address] 13124- 3987 Feb, [facility] [address] 04173- 8492 Feb, [facility] [id number] [place] [address] 15870- 9346 Jan, Temporal headache R51 [facility] [address] 62177- 2320 Jan, Fibromyalgia M79.7 [facility] [id number] [place] [address] 25162- 3930 Dec, Fibromyalgia M79.7 [facility] [id number] [place] [address] 41376- 2405 Nov, Peroneal tendonitis, unspecified laterality M76.70 and Plantar fasciitis, bilateral M72.2 [facility] [id number] [place] [address] 09566- 4249 Nov, Fibromyalgia M79.7 [facility] [id number] [place] [address] 89334- 1148 October, Fibromyalgia M79.7 [facility] [id number] [place] [address] 37048- 6522 October, Plantar fasciitis, bilateral M72.2 and Peroneal tendonitis, unspecified laterality M76.70 [facility] [id number] [place] [address] 01215- 1510 October, Fibromyalgia M79.7 [facility] [id number] [place] [address] 63005- 1566 Sep, Anxiety F41.9 [facility] [id number] [place] [address] 59755- 3000 Aug, Anxiety F41.9 and Adjustment disorder with anxiety F43.22 [facility] [address] 72388- 7988 Aug, Pain of left foot M79.672 [facility] [address] 61051- 6700 Aug, Pain of left foot M79.672 and Pain in right foot M79.671 [facility] [address] 07384- 5183 Aug, Arthritis M19.90 ; Reactive depression F32.9 ; Fibromyalgia M79.7 ; Rosacea L71.9 ; Pain in right foot M79.671 and Pain of left foot M79.672 [facility] [address] 43136- 9300 Aug, Anxiety F41.9 ; Adjustment disorder with anxiety F43.22 and Reactive depression F32.9 [facility] [id number] [place] [address] 89936- 8496 Aug, Right elbow pain M25.521 [facility] [id number] [place] [address] 55683- 3458 Aug, Plantar wart of right foot B07.0 and Actinic keratosis L57.0 [facility] [id number] [place] [address] 61083- 4554 Aug, Fibromyalgia M79.7 [facility] [id number] [place] [address] 92835- 3368 Jul, Arthritis M19.90 ; Hypothyroidism, unspecified type E03.9 ; Reactive depression F32.9 and Venous insufficiency I87.2 [facility] [id number] [place] [address] 43445- 3747 Jul, Gastroesophageal reflux disease, esophagitis presence not specified K21.9 [facility] [id number] [place] [address] 60110- 7577 17 Jul, 2016 Reflex sympathetic dystrophy G90.50 [facility] [address] 93095- 1687 17 Jul, 2016 Anxiety F41.9 ; Adjustment disorder with anxiety F43.22 and Reactive depression F32.9 [facility] [address] 27051- 9107 Jul, [facility] [address] 50644- 1845 Jul, Right elbow pain M25.521 [facility] [address] 90205- 7408 Jun, Fibromyalgia M79.7 [facility] [address] 55911- 0231 Jun, Anxiety F41.9 ; Adjustment disorder with anxiety F43.22 and Reactive depression F32.9 [facility] [address] 27109- 7566 Jun, [facility] [address] 09108- 1908 Jun, Atypical chest pain R07.89 and Adjustment disorder with anxiety F43.22 [facility] [address] [id number] Jun, Chest pain, unspecified type R07.9 [facility] [id number] [place] [address] 49843- 8575 Jun, Fibromyalgia M79.7 [facility] [address] 02987- 8159 May, Anxiety F41.9 [facility] [address] 71780- 8581 May, [facility] [address] 72486- 7368 May, Right elbow pain M25.521 [facility] [id number] [place] [address] 08457- 0061 Apr, Reflex sympathetic dystrophy G90.50 and Encounter for immunization Z23 [facility] [id number] [place] [address] 09908- 1244 Apr, [facility] [address] 60238- 5542 Mar, [facility] [id number] [place] [address] 77415- 8956 Feb, [facility] [id number] [place] [address] 78903- 2226 Feb, [facility] [id number] [place] [address] 19511- 6824 Jan, [facility] [id number] [place] [address] 11747- 7187 Jan, Right elbow pain M25.521 and Right wrist pain M25.531 [facility] [id number] [place] [address] 90852- 8640 Jan, [facility] [id number] [place] [address] 23794- 3313 Dec, Seborrheic keratoses L82.1 [facility] [id number] [place] [address] 75721- 0392 Dec, [facility] [id number] [place] [address] 30068- 6418 Dec, [facility] [id number] [place] [address] 00778- 9312 Dec, [facility] [id number] [place] [address] 73428- 6391 Dec, Fibromyalgia M79.7 and Hypothyroidism, unspecified type E03.9 [facility] [id number] [address]- 4745 Dec, Seborrheic keratoses L82.1 [facility] [address], [place] [address]- 0674 Dec, [facility] [address], [place] [address]- 1446 Dec, [facility] [address], [place] [address]- 0612 Nov, Sebaceous cyst L72.3 [facility] [address], [place] [address]- 0441 October, Breast cancer screening Z12.39 [facility] [address], [place] [address]- 9267 October, Fibromyalgia M79.7 ; Hypothyroidism, unspecified type E03.9 and Reflex sympathetic dystrophy G90.50 [facility] [address] [address]- 4388 October, Reflex sympathetic dystrophy G90.50 ; Fibromyalgia M79.7 and Hypothyroidism, unspecified type E03.9 IMMUNIZATIONS No Known Immunizations SOCIAL HISTORY Never Assessed REASON FOR VISIT medication PLAN OF CARE VITAL SIGNS MEDICATIONS Unknown [...] resection Hospitalization History surgeries Hospitalization History Chest Pain-[facility] 07/02/16 Hospitalization History Chest Pain - [facility] 10/06/17
--- OUTSIDE RECORDS SUMMARY | 2018-03-07 18:02 | XMS REPORT ---
Author Author JOE BAI [facility] Address [address] [place] [address] Care Team Providers Care Parking Cashier Name Role Phone JOE BAI Unavailable PROBLEMS Type Condition ICD9-CM Code OWH17-TU Code Onset Dates Condition Status SNOMED Code Problem Arthritis M19.90 Active 6080693 Problem Gastroesophageal reflux disease, esophagitis presence not specified K21.9 Active 984256844 Problem Reactive depression F32.9 Active 11972396 Problem Abnormal laboratory test R89.9 Active 720216501 Problem Mild episode of recurrent major depressive disorder F33.0 Active 164794902 Problem Rosacea L71.9 Active 913484201 Problem Plantar wart of right foot B07.0 Active 75914508 Problem Generalized anxiety disorder F41.1 Active 68137081 Problem Mixed hyperlipidemia E78.2 Active 980821095 Problem Fibromyalgia M79.7 Active 416281683 Problem Right elbow pain M25.521 Active 49372186 Problem Hypothyroidism, unspecified type E03.9 Active 75343633 Problem Right wrist pain M25.531 Active 87569991 Problem Reflex sympathetic dystrophy G90.50 Active 20772773 Problem Venous insufficiency I87.2 Active 49709952 ALLERGIES No Information ENCOUNTERS Encounter Location Date Diagnosis [facility] [id number] [address] Dec, [facility] [id number], [place] [address] Nov, [facility] [id number] [place] [address] 32136- 8291 October, [facility] [id number], [place] [address] October, Generalized anxiety disorder F41.1 and Mild episode of recurrent major depressive disorder F33.0 [facility] [id number] [place] [address] 91523- 6403 October, [facility] [id number] [place] [address] 26808- 4863 Sep, Gastroesophageal reflux disease, esophagitis presence not specified K21.9 and Abnormal laboratory test R89.9 [facility] [id number] [place] [address] 45498- 8212 Sep, Fibromyalgia M79.7 [facility] [address] [address]- 9476 Sep, Generalized anxiety disorder F41.1 and Mild episode of recurrent major depressive disorder F33.0 [facility] [id number] [place] [address] 64192- 3435 Sep, Epigastric pain R10.13 [facility] [id number] [place] [address] 65956- 0869 Sep, Mild episode of recurrent major depressive disorder F33.0 and Generalized anxiety disorder F41.1 [facility] [id number] [place] [address] 98837- 2120 Sep, Abnormal laboratory test R89.9 [facility] [id number] [place] [address] 25708- 5924 Sep, Generalized anxiety disorder F41.1 and Mild episode of recurrent major depressive disorder F33.0 [facility] [id number] [place] [address] 50930- 9052 Aug, Epigastric pain R10.13 and Encounter for therapeutic drug level monitoring Z51.81 [facility] [id number] [place] [address] 51916 -4915 Aug, Epigastric pain R10.13 and Gastro-esophageal reflux disease without esophagitis K21.9 [facility] [id number] [place] [address] 32893- 7011 Aug, [facility] [id number] [place] [address] 54601- 0066 21 Aug, 2017 Epigastric pain R10.13 [facility] [id number] [place] [address] 88916- 9459 Aug, Fibromyalgia M79.7 [facility] [id number] [place] [address] 87385- 6933 14 Aug, 2017 [facility] [address] 60784- 4633 Aug, Generalized anxiety disorder F41.1 and Mild episode of recurrent major depressive disorder F33.0 [facility] [id number] [place] [address] 91762- 1736 08 Aug, 2017 Epigastric pain R10.13 ; Reflex sympathetic dystrophy G90.50 and Arthritis M19.90 [facility] [id number] [place] [address] 20505- 1719 Jul, Generalized anxiety disorder F41.1 and Mild episode of recurrent major depressive disorder F33.0 [facility] [id number] [place] [address] 80723- 8402 Jul, BMI 40.0-44.9, adult Z68.41 ; Mild episode of recurrent major depressive disorder F33.0 and Generalized anxiety disorder F41.1 [facility] [id number] [place] [address] 66071- 3679 Jul, Fibromyalgia M79.7 [facility] [id number] [place] [address] 26477- 7536 Jun, Mild episode of recurrent major depressive disorder F33.0 and Generalized anxiety disorder F41.1 [facility] [id number] [place] [address] 91878- 1747 Jun, Fibromyalgia M79.7 [facility] [id number] [place] [address] 95808- 9488 Jun, Generalized anxiety disorder F41.1 and Mild episode of recurrent major depressive disorder F33.0 [facility] [address], [place] [address] Jun, Generalized anxiety disorder F41.1 and Mild episode of recurrent major depressive disorder F33.0 [facility] [id number] [place] [address] 88651- 7306 Jun, Generalized anxiety disorder F41.1 and Mild episode of recurrent major depressive disorder F33.0 [facility] [id number] [place] [address] 36215- 9220 Jun, [facility] [id number] [place] [address] 55268- 0932 Jun, Generalized anxiety disorder F41.1 and Mild episode of recurrent major depressive disorder F33.0 [facility] [id number] [place] [address] 31621- 1790 May, Fibromyalgia M79.7 [facility] [id number] [place] [address] 69851- 3012 May, Generalized anxiety disorder F41.1 and Mild episode of recurrent major depressive disorder F33.0 [facility] [address] [place] [address] 10259- 8659 May, Mixed hyperlipidemia E78.2 ; Arthritis M19.90 ; Reactive depression F32.9 and Hypothyroidism, unspecified type E03.9 [facility] [address], [place] [address] May, Arthritis M19.90 ; Reactive depression F32.9 ; Mixed hyperlipidemia E78.2 and Hypothyroidism, unspecified type E03.9 [facility] [address], [place] [address] Apr, Fibromyalgia M79.7 [facility] [id number] [place] [address] 32544- 4714 Apr, [facility] [address], [place] [address] 0797 Apr, Fibromyalgia M79.7 [facility] [id number] [place] [address] 75924- 5322 Mar, Fibromyalgia M79.7 [facility] [id number] [place] [address] 81031- 4846 Mar, [facility] [id number] [place] [address] 57826 2546 Mar, Fibromyalgia M79.7 [facility] [address] [address]441 2546 Mar, [facility] [id number] [place] [address] 58540 2540 Feb, Reflex sympathetic dystrophy G90.50 ; Right arm pain M79.601 and Fibromyalgia M79.7 [facility] [id number] [place] [address] 64286- 2546 Feb, [facility] [address] 63848- 2547 Feb, Anxiety F41.9 [facility] [id number] [place] [address] 50443 2545 Feb, Fibromyalgia M79.7 [facility] [id number] [place] [address] 85342 2541 Feb, [facility] [id number] [place] [address] 39920- 2547 Feb, [facility] [id number] [place] [address] 20281- 2541 Jan, Temporal headache R51 [facility] [id number] [place] [address] 33949- 0792 Jan, Fibromyalgia M79.7 [facility] [id number] [place] [address] 42639- 3448 Dec, Fibromyalgia M79.7 [facility] [id number] [place] [address] 87804- 0356 Nov, Peroneal tendonitis, unspecified laterality M76.70 and Plantar fasciitis, bilateral M72.2 [facility] [id number] [place] [address] 09496- 6053 Nov, Fibromyalgia M79.7 [facility] [address] 69810- 1635 October, Fibromyalgia M79.7 [facility] [address] 32579- 5883 October, Plantar fasciitis, bilateral M72.2 and Peroneal tendonitis, unspecified laterality M76.70 [facility] [address] 44275- 5552 October, Fibromyalgia M79.7 [facility] [address] 31110- 5248 Sep, Anxiety F41.9 [facility] [address] 63623- 6363 Aug, Anxiety F41.9 and Adjustment disorder with anxiety F43.22 [facility] [address] 83684- 7791 Aug, Pain of left foot M79.672 [place] [facility] [address] 64611- 2457 Aug, Pain of left foot M79.672 and Pain in right foot M79.671 [facility] [address] 71911- 9003 Aug, Arthritis M19.90 ; Reactive depression F32.9 ; Fibromyalgia M79.7 ; Rosacea L71.9 ; Pain in right foot M79.671 and Pain of left foot M79.672 [facility] [id number] [place] [address] 77377- 1072 Aug, Anxiety F41.9 ; Adjustment disorder with anxiety F43.22 and Reactive depression F32.9 [facility] [address] 78222- 6178 14 Aug, 2016 Right elbow pain M25.521 [facility] [address] 73856- 1854 07 Aug, 2016 Plantar wart of right foot B07.0 and Actinic keratosis L57.0 [place] [facility] [address] 24863- 2333 Aug, Fibromyalgia M79.7 [facility] [address] 68764- 6189 Jul, Arthritis M19.90 ; Hypothyroidism, unspecified type E03.9 ; Reactive depression F32.9 and Venous insufficiency I87.2 [facility] [address] 22546- 0294 20 Jul, 2016 Gastroesophageal reflux disease, esophagitis presence not specified K21.9 [facility] [address] 47002- 0256 Jul, Reflex sympathetic dystrophy G90.50 [facility] [address] 43758- 8551 Jul, Anxiety F41.9 ; Adjustment disorder with anxiety F43.22 and Reactive depression F32.9 [facility] [address] 35875- 5317 Jul, [facility] [address] 81619- 9808 Jul, Right elbow pain M25.521 [place] [address] 04660- 4931 Jun, Fibromyalgia M79.7 [facility] [address] 15981- 6244 Jun, Anxiety F41.9 ; Adjustment disorder with anxiety F43.22 and Reactive depression F32.9 [facility] [place] [address] [place] [address]- 1665 Jun, [facility] [address] 91129- 1897 Jun, Atypical chest pain R07.89 and Adjustment disorder with anxiety F43.22 [facility] [place] [address] [id number] 16 Jun, 2016 Chest pain, unspecified type R07.9 [facility] [address] 51494- 3422 Jun, Fibromyalgia M79.7 [address] [place] 39176- 2684 May, Anxiety F41.9 [facility] [address] 02681- 3413 May, [facility] [address] 79073- 2737 May, Right elbow pain M25.521 [facility] [address] 19833- 7811 Apr, Reflex sympathetic dystrophy G90.50 and Encounter for immunization Z23 [facility] [address] 64423- 2916 Apr, [facility] [address] 13074- 6679 Mar, [facility] [address] 13376- 6472 Feb, [facility] [address] 96772- 1906 Feb, [facility] [address] 36846- 0146 Jan, [facility] [address] 71638- 0509 Jan, Right elbow pain M25.521 and Right wrist pain M25.531 [facility] [address] [place] [address] 27679- 6669 Jan, [facility] [id number] [place] [address] 66231- 5776 Dec, Seborrheic keratoses L82.1 [facility] [id number] [place] [address] 55785- 8556 Dec, [facility] [id number] [place] [address] 60808- 9551 Dec, [facility] [id number] [place] [address] 38094- 5737 Dec, [facility] [id number] [place] [address] 63147- 3199 Dec, Fibromyalgia M79.7 and Hypothyroidism, unspecified type E03.9 [facility] [id number] [place] [address] 48950- 6917 Dec, Seborrheic keratoses L82.1 [facility] [id number] [place] [address] 92447- 4882 Dec, [facility] [id number] [place] [address] 05962- 1511 Dec, [facility] [id number] [place] [address] 15585- 6360 Nov, Sebaceous cyst L72.3 [facility] [id number] [place] [address] 37657- 6607 October, Breast cancer screening Z12.39 [facility] [id number] [place] [address] 12205- 3359 October, Fibromyalgia M79.7 ; Hypothyroidism, unspecified type E03.9 and Reflex sympathetic dystrophy G90.50 [facility] [id number] [place] [address] 05161- 5654 October, Reflex sympathetic dystrophy G90.50 ; Fibromyalgia M79.7 and Hypothyroidism, unspecified type E03.9 IMMUNIZATIONS No Known Immunizations SOCIAL HISTORY Never Assessed REASON FOR VISIT Hydrocodone- 03/24 PLAN OF CARE VITAL SIGNS MEDICATIONS Medication Instructions Dosage Frequency Start Date End Date Duration Status Hydrocodone-Acetaminophen 7.5-325 MG Orally 3 times a day 1 tablet 8h Mar, 28 days Active RESULTS No Results PROCEDURES [...]
--- OUTSIDE RECORDS SUMMARY | 2018-03-07 18:03 | XMS REPORT ---
Author Author JOE BAI [facility] Address [address] [place] [address] Care Team Providers Care Sales And Catering Coordinator Name Role Phone JOE BAI Unavailable PROBLEMS Type Condition ICD9-CM Code MVO80-BF Code Onset Dates Condition Status SNOMED Code Problem Arthritis M19.90 Active 7771356 Problem Gastroesophageal reflux disease, esophagitis presence not specified K21.9 Active 757652020 Problem Reactive depression F32.9 Active 23107820 Problem Abnormal laboratory test R89.9 Active 510146770 Problem Mild episode of recurrent major depressive disorder F33.0 Active 914671200 Problem Rosacea L71.9 Active 939605547 Problem Plantar wart of right foot B07.0 Active 55440508 Problem Generalized anxiety disorder F41.1 Active 78423715 Problem Mixed hyperlipidemia E78.2 Active 239947179 Problem Fibromyalgia M79.7 Active 233068820 Problem Right elbow pain M25.521 Active 36217747 Problem Hypothyroidism, unspecified type E03.9 Active 83710294 Problem Right wrist pain M25.531 Active 24673865 Problem Reflex sympathetic dystrophy G90.50 Active 30263336 Problem Venous insufficiency I87.2 Active 95908508 ALLERGIES No Information ENCOUNTERS Encounter Location Date Diagnosis [facility] [id number], [place] [address] Dec, [facility] [id number] [address] Nov, [facility] [id number] [place] [address] 04891- 2553 October, [facility] [id number], [place] [address] October, Generalized anxiety disorder F41.1 and Mild episode of recurrent major depressive disorder F33.0 [facility] [id number] [place] [address] 00433- 7903 October, [facility] [id number] [place] [address] 57421- 5662 Sep, Gastroesophageal reflux disease, esophagitis presence not specified K21.9 and Abnormal laboratory test R89.9 [facility] [id number] [place] [address] 64968- 2930 Sep, Fibromyalgia M79.7 [facility] [address] [address]- [address] Sep, Generalized anxiety disorder F41.1 and Mild episode of recurrent major depressive disorder F33.0 [facility] [id number] [place] [address] 54020- 0952 Sep, Epigastric pain R10.13 [facility] [id number] [place] [address] 97689- 7556 Sep, Mild episode of recurrent major depressive disorder F33.0 and Generalized anxiety disorder F41.1 [facility] [id number] [place] [address] 19960- 2369 Sep, Abnormal laboratory test R89.9 [facility] [id number] [place] [address] 63369- 4251 Sep, Generalized anxiety disorder F41.1 and Mild episode of recurrent major depressive disorder F33.0 [facility] [id number] [place] [address] 99672- 1723 Aug, Epigastric pain R10.13 and Encounter for therapeutic drug level monitoring Z51.81 [facility] [id number] [place] [address] 56366 -3182 Aug, Epigastric pain R10.13 and Gastro-esophageal reflux disease without esophagitis K21.9 [facility] [id number] [place] [address] 21673- 3839 Aug, [facility] [id number] [place] [address] 81673- 5355 21 Aug, 2017 Epigastric pain R10.13 [facility] [id number] [place] [address] 09202- 5031 Aug, Fibromyalgia M79.7 [facility] [id number] [place] [address] 70825- 3480 14 Aug, 2017 [facility] [address] 14320- 7151 Aug, Generalized anxiety disorder F41.1 and Mild episode of recurrent major depressive disorder F33.0 [facility] [id number] [place] [address] 28956- 0261 08 Aug, 2017 Epigastric pain R10.13 ; Reflex sympathetic dystrophy G90.50 and Arthritis M19.90 [facility] [id number] [place] [address] 82943- 2929 Jul, Generalized anxiety disorder F41.1 and Mild episode of recurrent major depressive disorder F33.0 [facility] [id number] [place] [address] 10986- 9981 Jul, BMI 40.0-44.9, adult Z68.41 ; Mild episode of recurrent major depressive disorder F33.0 and Generalized anxiety disorder F41.1 [facility] [id number] [place] [address] 65645- 7584 Jul, Fibromyalgia M79.7 [facility] [id number] [place] [address] 46317- 8277 Jun, Mild episode of recurrent major depressive disorder F33.0 and Generalized anxiety disorder F41.1 [facility] [id number] [place] [address] 99284- 4826 Jun, Fibromyalgia M79.7 [facility] [id number] [place] [address] 92280- 1061 Jun, Generalized anxiety disorder F41.1 and Mild episode of recurrent major depressive disorder F33.0 [facility] [address], [place] [address] Jun, Generalized anxiety disorder F41.1 and Mild episode of recurrent major depressive disorder F33.0 [facility] [address] [place] [address] 12202- 3376 Jun, Generalized anxiety disorder F41.1 and Mild episode of recurrent major depressive disorder F33.0 [facility] [id number] [place] [address] 28250- 4760 Jun, [facility] [address] [place] [address] 43177- 9421 Jun, Generalized anxiety disorder F41.1 and Mild episode of recurrent major depressive disorder F33.0 [facility] [address] [place] [address] 90629- 2744 May, Fibromyalgia M79.7 [facility] [id number] [place] [address] 60455- 6805 May, Generalized anxiety disorder F41.1 and Mild episode of recurrent major depressive disorder F33.0 [facility] [address] [place] [address] 05022- 8980 May, Mixed hyperlipidemia E78.2 ; Arthritis M19.90 ; Reactive depression F32.9 and Hypothyroidism, unspecified type E03.9 [facility] [address], [place] [address] May, Arthritis M19.90 ; Reactive depression F32.9 ; Mixed hyperlipidemia E78.2 and Hypothyroidism, unspecified type E03.9 [facility] [address], [place] [address] 6269 Apr, Fibromyalgia M79.7 [facility] [id number] [place] [address] 47935- 0906 Apr, [facility] [address], [place] [address] 0648 Apr, Fibromyalgia M79.7 [facility] [id number] [place] [address] 21084- 6763 Mar, Fibromyalgia M79.7 [facility] [id number] [place] [address] 49315- 1346 Mar, [facility] [id number] [place] [address] 49773 2546 Mar, Fibromyalgia M79.7 [facility] [address] [address] 2546 Mar, [facility] [id number] [place] [address] 26870 2540 Feb, Reflex sympathetic dystrophy G90.50 ; Right arm pain M79.601 and Fibromyalgia M79.7 [facility] [id number] [place] [address] 74172- 2546 Feb, [facility] [address] 14018- 2543 Feb, Anxiety F41.9 [facility] [id number] [place] [address] 54468 2543 Feb, Fibromyalgia M79.7 [facility] [id number] [place] [address] 89435 2547 Feb, [facility] [id number] [place] [address] 14397- 2545 Feb, [facility] [id number] [place] [address] 11813- 2543 Jan, Temporal headache R51 [facility] [id number] [place] [address] 34376- 0211 Jan, Fibromyalgia M79.7 [facility] [id number] [place] [address] 05969- 7183 Dec, Fibromyalgia M79.7 [facility] [id number] [place] [address] 00919- 7072 Nov, Peroneal tendonitis, unspecified laterality M76.70 and Plantar fasciitis, bilateral M72.2 [facility] [address] [place] [address] 00623- 1720 Nov, Fibromyalgia M79.7 [facility] [address] 23136- 6833 October, Fibromyalgia M79.7 [facility] [address] 61626- 2785 October, Plantar fasciitis, bilateral M72.2 and Peroneal tendonitis, unspecified laterality M76.70 [facility] [address] 83969- 2707 October, Fibromyalgia M79.7 [facility] [address] 05086- 1061 Sep, Anxiety F41.9 [facility] [address] 89688- 9382 Aug, Anxiety F41.9 and Adjustment disorder with anxiety F43.22 [facility] [address] 03972- 7307 Aug, Pain of left foot M79.672 [facility] [address] 73100- 8193 Aug, Pain of left foot M79.672 and Pain in right foot M79.671 [facility] [address] 88946- 6536 Aug, Arthritis M19.90 ; Reactive depression F32.9 ; Fibromyalgia M79.7 ; Rosacea L71.9 ; Pain in right foot M79.671 and Pain of left foot M79.672 [facility] [id number] [place] [address] 24515- 8072 Aug, Anxiety F41.9 ; Adjustment disorder with anxiety F43.22 and Reactive depression F32.9 [facility] [address] 48694- 1059 14 Aug, 2016 Right elbow pain M25.521 [facility] [address] 65689- 7788 07 Aug, 2016 Plantar wart of right foot B07.0 and Actinic keratosis L57.0 [facility] [address] 14999- 6856 Aug, Fibromyalgia M79.7 [facility] [address] 80697- 7239 Jul, Arthritis M19.90 ; Hypothyroidism, unspecified type E03.9 ; Reactive depression F32.9 and Venous insufficiency I87.2 [address] [address] 41855- 8209 20 Jul, 2016 Gastroesophageal reflux disease, esophagitis presence not specified K21.9 [facility] [address] 74055- 1598 Jul, Reflex sympathetic dystrophy G90.50 [place] [facility] [address] 46643- 2070 Jul, Anxiety F41.9 ; Adjustment disorder with anxiety F43.22 and Reactive depression F32.9 [facility] [address] 41070- 1361 Jul, [facility] [address] 15584- 9868 Jul, Right elbow pain M25.521 [place] [facility] [address] 13699- 5387 Jun, Fibromyalgia M79.7 [address] [facility] [address] 07664- 8218 Jun, Anxiety F41.9 ; Adjustment disorder with anxiety F43.22 and Reactive depression F32.9 [facility] [address] [place] [address] Jun, [facility] [address] 80879- 8734 Jun, Atypical chest pain R07.89 and Adjustment disorder with anxiety F43.22 [facility] [address] [id number] 16 Jun, 2016 Chest pain, unspecified type R07.9 [facility] [address] 65500- 9692 Jun, Fibromyalgia M79.7 [facility] [facility] [address] 40102- 2285 May, Anxiety F41.9 [facility] [address] 09886- 0820 May, [facility] [address] 24820- 7598 May, Right elbow pain M25.521 [facility] [address] 89065- 3762 Apr, Reflex sympathetic dystrophy G90.50 and Encounter for immunization Z23 [facility] [address] 85864- 4378 Apr, [facility] [address] 05224- 7727 Mar, [facility] [address] 52301- 8138 Feb, [facility] [address] 41885- 4532 Feb, [facility] [address] 05137- 6760 Jan, [facility] [address] 34728- 6103 Jan, Right elbow pain M25.521 and Right wrist pain M25.531 [facility] [address] [place] [address] 86115- 9499 Jan, [facility] [id number] [place] [address] 82116- 7986 Dec, Seborrheic keratoses L82.1 [facility] [id number] [place] [address] 78521- 7146 Dec, [facility] [id number] [place] [address] 81276- 2724 Dec, [facility] [id number] [place] [address] 30755- 3029 Dec, [facility] [id number] [place] [address] 62826- 7559 Dec, Fibromyalgia M79.7 and Hypothyroidism, unspecified type E03.9 [facility] [id number] [place] [address] 39028- 3417 Dec, Seborrheic keratoses L82.1 [facility] [id number] [place] [address] 01762- 8256 Dec, [facility] [id number] [place] [address] 25957- 0647 Dec, [facility] [id number] [place] [address] 94762- 7247 Nov, Sebaceous cyst L72.3 [facility] [id number] [place] [address] 76215- 1242 October, Breast cancer screening Z12.39 [facility] [id number] [place] [address] 69068- 8153 October, Fibromyalgia M79.7 ; Hypothyroidism, unspecified type E03.9 and Reflex sympathetic dystrophy G90.50 [facility] [id number] [place] [address] 50811- 8467 October, Reflex sympathetic dystrophy G90.50 ; Fibromyalgia M79.7 and Hypothyroidism, unspecified type E03.9 IMMUNIZATIONS No Known Immunizations SOCIAL HISTORY Never Assessed REASON FOR VISIT Referal to see Carranza PLAN OF CARE VITAL SIGNS MEDICATIONS Unknown [...]
--- OUTSIDE RECORDS SUMMARY | 2018-03-07 18:03 | XMS REPORT ---
Author Author JOE BAI [facility] Address [address] [place] [address] Care Team Providers Care Application Security Consultant Name Role Phone JOE BAI Unavailable PROBLEMS Type Condition ICD9-CM Code DYN68-OA Code Onset Dates Condition Status SNOMED Code Problem Arthritis M19.90 Active 9854255 Problem Gastroesophageal reflux disease, esophagitis presence not specified K21.9 Active 432569383 Problem Reactive depression F32.9 Active 37515290 Problem Abnormal laboratory test R89.9 Active 983227759 Problem Mild episode of recurrent major depressive disorder F33.0 Active 548197726 Problem Rosacea L71.9 Active 696514056 Problem Plantar wart of right foot B07.0 Active 59321859 Problem Generalized anxiety disorder F41.1 Active 62994273 Problem Mixed hyperlipidemia E78.2 Active 748905622 Problem Fibromyalgia M79.7 Active 535475796 Problem Right elbow pain M25.521 Active 74358108 Problem Hypothyroidism, unspecified type E03.9 Active 33589121 Problem Right wrist pain M25.531 Active 78898438 Problem Reflex sympathetic dystrophy G90.50 Active 51407596 Problem Venous insufficiency I87.2 Active 15301362 ALLERGIES No Information ENCOUNTERS Encounter Location Date Diagnosis [facility] [id number] [address] Dec, [facility] [id number] [address] October, [facility] [id number] [place] [address] 39036- 7454 Sep, Gastroesophageal reflux disease, esophagitis presence not specified K21.9 and Abnormal laboratory test R89.9 [facility] [id number] [place] [address] 75334- 2977 Sep, Fibromyalgia M79.7 [facility] [id number] [place] [address] 52675- 1331 17 Sep, 2017 Generalized anxiety disorder F41.1 and Mild episode of recurrent major depressive disorder F33.0 [facility] [id number] [place] [address] 59400 2546 13 Sep, 2017 Epigastric pain R10.13 [facility] [id number] [place] [address] 78006- 8070 10 Sep, 2017 Mild episode of recurrent major depressive disorder F33.0 and Generalized anxiety disorder F41.1 [facility] [id number] [place] [address] 32815- 6299 02 Sep, 2017 Abnormal laboratory test R89.9 [facility] [id number] [place] [address] 71223- 5332 02 Sep, 2017 Generalized anxiety disorder F41.1 and Mild episode of recurrent major depressive disorder F33.0 [facility] [id number] [place] [address] 35116- 2445 29 Aug, 2017 Epigastric pain R10.13 and Encounter for therapeutic drug level monitoring Z51.81 [facility] [id number] [place] [address] 75737 -8801 28 Aug, 2017 Epigastric pain R10.13 and Gastro-esophageal reflux disease without esophagitis K21.9 [facility] [id number] [place] [address] 19013- 0304 Aug, [facility] [id number] [place] [address] 89621 2543 Aug, Epigastric pain R10.13 [facility] [id number] [place] [address] 84028- 1373 20 Aug, 2017 Fibromyalgia M79.7 [facility] [id number] [place] [address] 04022- 2548 14 Aug, 2017 [facility] [id number] [place] [address] 36251- 2904 14 Aug, 2017 Generalized anxiety disorder F41.1 and Mild episode of recurrent major depressive disorder F33.0 [facility] [id number] [place] [address] 27657- 7031 08 Aug, 2017 Epigastric pain R10.13 ; Reflex sympathetic dystrophy G90.50 and Arthritis M19.90 [facility] [id number] [place] [address] 62281- 3236 Jul, Generalized anxiety disorder F41.1 and Mild episode of recurrent major depressive disorder F33.0 [facility] [id number] [place] [address] 68481- 8565 Jul, BMI 40.0-44.9, adult Z68.41 ; Mild episode of recurrent major depressive disorder F33.0 and Generalized anxiety disorder F41.1 [facility] [id number] [place] [address] 21241- 2031 Jul, Fibromyalgia M79.7 [facility] [address] 39173- 8362 Jun, Mild episode of recurrent major depressive disorder F33.0 and Generalized anxiety disorder F41.1 [facility] [id number] [place] [address] 66367- 9383 Jun, Fibromyalgia M79.7 [facility] [id number] [place] [address] 44761- 3080 Jun, Generalized anxiety disorder F41.1 and Mild episode of recurrent major depressive disorder F33.0 [facility] [id number] [place] [address] 34941- 2991 Jun, Generalized anxiety disorder F41.1 and Mild episode of recurrent major depressive disorder F33.0 [facility] [id number] [place] [address] 92023- 4298 Jun, Generalized anxiety disorder F41.1 and Mild episode of recurrent major depressive disorder F33.0 [facility] [id number] [place] [address] 07465- 9186 Jun, [facility] [id number] [place] [address] 07236- 0179 Jun, Generalized anxiety disorder F41.1 and Mild episode of recurrent major depressive disorder F33.0 [facility] [id number] [place] [address] 24714- 3285 May, Fibromyalgia M79.7 [facility] [id number] [place] [address] 46515- 1550 May, Generalized anxiety disorder F41.1 and Mild episode of recurrent major depressive disorder F33.0 [facility] [address] 11378- 4053 May, Mixed hyperlipidemia E78.2 ; Arthritis M19.90 ; Reactive depression F32.9 and Hypothyroidism, unspecified type E03.9 [facility] [id number] [place] [address] 25889- 6085 May, Arthritis M19.90 ; Reactive depression F32.9 ; Mixed hyperlipidemia E78.2 and Hypothyroidism, unspecified type E03.9 [facility] [id number] [place] [address] 80834- 5467 Apr, Fibromyalgia M79.7 [facility] [id number] [place] [address] 53075- 0235 Apr, [facility] [id number] [place] [address] 57111- 8703 Apr, Fibromyalgia M79.7 [facility] [id number] [place] [address] 38551- 2744 Mar, Fibromyalgia M79.7 [facility] [id number] [place] [address] 11554- 1152 Mar, [facility] [id number] [place] [address] 50814- 0404 Mar, Fibromyalgia M79.7 [facility] [id number] [place] [address] 78085- 6313 Mar, [facility] [address] 79905- 8781 Feb, Reflex sympathetic dystrophy G90.50 ; Right arm pain M79.601 and Fibromyalgia M79.7 [facility] [address] 67158- 0601 Feb, [facility] [address] 06987- 2815 Feb, Anxiety F41.9 [facility] [address] 86520- 9254 Feb, Fibromyalgia M79.7 [facility] [address] 67129- 9664 Feb, [facility] [address] 89890- 2862 Feb, [facility] [id number] [place] [address] 75006- 8322 Jan, Temporal headache R51 [facility] [address] 25455- 4161 Jan, Fibromyalgia M79.7 [facility] [id number] [place] [address] 99847- 0510 Dec, Fibromyalgia M79.7 [facility] [id number] [place] [address] 54151- 8382 Nov, Peroneal tendonitis, unspecified laterality M76.70 and Plantar fasciitis, bilateral M72.2 [facility] [address] 22206- 4649 Nov, Fibromyalgia M79.7 [facility] [id number] [place] [address] 13350- 3859 October, Fibromyalgia M79.7 [facility] [address] 62072- 6581 October, Plantar fasciitis, bilateral M72.2 and Peroneal tendonitis, unspecified laterality M76.70 [facility] [address] 04762- 7898 October, Fibromyalgia M79.7 [facility] [address] 56335- 4519 Sep, Anxiety F41.9 [facility] [address] 94278- 5881 Aug, Anxiety F41.9 and Adjustment disorder with anxiety F43.22 [facility] [address] 28834- 6303 Aug, Pain of left foot M79.672 [facility] [address] 03088- 2157 Aug, Pain of left foot M79.672 and Pain in right foot M79.671 [facility] [id number] [place] [address] 80244- 9894 Aug, Arthritis M19.90 ; Reactive depression F32.9 ; Fibromyalgia M79.7 ; Rosacea L71.9 ; Pain in right foot M79.671 and Pain of left foot M79.672 [facility] [id number] [place] [address] 47092- 9563 Aug, Anxiety F41.9 ; Adjustment disorder with anxiety F43.22 and Reactive depression F32.9 [facility] [id number] [place] [address] 14605- 3139 Aug, Right elbow pain M25.521 [facility] [address] 84627- 4893 Aug, Plantar wart of right foot B07.0 and Actinic keratosis L57.0 [facility] [id number] [place] [address] 63296- 6985 Aug, Fibromyalgia M79.7 [place] [place] [address] 61165- 9066 Jul, Arthritis M19.90 ; Hypothyroidism, unspecified type E03.9 ; Reactive depression F32.9 and Venous insufficiency I87.2 [place] [place] [address] 49034- 7855 Jul, Gastroesophageal reflux disease, esophagitis presence not specified K21.9 [facility] [address] 03015- 1958 Jul, Reflex sympathetic dystrophy G90.50 [facility] [address] 02996- 6311 Jul, Anxiety F41.9 ; Adjustment disorder with anxiety F43.22 and Reactive depression F32.9 [facility] [address] 44373- 6032 Jul, [facility] [address] 21230- 8151 Jul, Right elbow pain M25.521 [facility] [address] 38170- 5035 Jun, Fibromyalgia M79.7 [facility] [address] 46948- 6482 Jun, Anxiety F41.9 ; Adjustment disorder with anxiety F43.22 and Reactive depression F32.9 [place] [address] 99201- 3672 Jun, [facility] [address] 06275- 5766 Jun, Atypical chest pain R07.89 and Adjustment disorder with anxiety F43.22 [facility] [address] [id number] Jun, Chest pain, unspecified type R07.9 [facility] [id number] [place] [address] 13445- 6501 Jun, Fibromyalgia M79.7 [facility] [address] 79728- 6566 May, Anxiety F41.9 [facility] [id number] [place] [address] 39768- 2825 May, [facility] [address] 17499- 4712 May, Right elbow pain M25.521 [facility] [id number] [place] [address] 18497- 1967 Apr, Reflex sympathetic dystrophy G90.50 and Encounter for immunization Z23 [facility] [id number] [place] [address] 53188- 0686 Apr, [facility] [address] 18012- 1971 Mar, [facility] [id number] [place] [address] 32285- 0168 Feb, [facility] [address] 62621- 0453 Feb, [facility] [id number] [place] [address] 12284- 1432 Jan, [facility] [id number] [place] [address] 47759- 3484 Jan, Right elbow pain M25.521 and Right wrist pain M25.531 [facility] [id number] [place] [address] 26292- 4653 Jan, [facility] [id number] [place] [address] 28947- 3138 Dec, Seborrheic keratoses L82.1 [facility] [id number] [place] [address] 74904- 8400 Dec, [facility] [address] [place] [address] 22111- 2580 Dec, [facility] [id number] [place] [address] 60627- 0035 Dec, [facility] [id number] [place] [address] 11835- 7622 Dec, Fibromyalgia M79.7 and Hypothyroidism, unspecified type E03.9 [facility] [id number] [place] [address] 12502- 7150 Dec, Seborrheic keratoses L82.1 [facility] [address] 93507- 3983 Dec, [facility] [id number] [place] [address] 91362- 0734 Dec, [facility] [id number] [place] [address] 60398- 0057 Nov, Sebaceous cyst L72.3 [facility] [id number] [place] [address] 75592- 2787 October, Breast cancer screening Z12.39 [facility] [id number] [place] [address] 33258- 0968 October, Fibromyalgia M79.7 ; Hypothyroidism, unspecified type E03.9 and Reflex sympathetic dystrophy G90.50 [facility] [id number] [place] [address] 17697- 0994 October, Reflex sympathetic dystrophy G90.50 ; Fibromyalgia [...]
--- OUTSIDE RECORDS SUMMARY | 2018-03-07 18:03 | XMS REPORT ---
Author Author JOE BAI [facility] Address [address] [place] [address] Care Team Providers Care Edger Runner Name Role Phone JOE BAI Unavailable PROBLEMS Type Condition ICD9-CM Code [id number] Code Onset Dates Condition Status SNOMED Code Problem Arthritis M19.90 Active 2793522 Problem Gastroesophageal reflux disease, esophagitis presence not specified K21.9 Active 510726931 Problem Reactive depression F32.9 Active 63294462 Problem Abnormal laboratory test R89.9 Active 013194631 Problem Mild episode of recurrent major depressive disorder F33.0 Active 809333674 Problem Rosacea L71.9 Active 306383029 Problem Plantar wart of right foot B07.0 Active 39436157 Problem Generalized anxiety disorder F41.1 Active 94984754 Problem Mixed hyperlipidemia E78.2 Active 933374198 Problem Fibromyalgia M79.7 Active 772800629 Problem Right elbow pain M25.521 Active 85725012 Problem Hypothyroidism, unspecified type E03.9 Active 24950022 Problem Right wrist pain M25.531 Active 37054538 Problem Reflex sympathetic dystrophy G90.50 Active 30195894 Problem Venous insufficiency I87.2 Active 51701083 ALLERGIES No Information ENCOUNTERS Encounter Location Date Diagnosis [facility] [address] [address] Sep, Medicare annual wellness visit, initial Z00.00 [facility] [id number] [address] Sep, [facility] [address] [place] [address] Sep, [facility] [id number] [address] Sep, [facility] [id number] [place] [address] 78117- 1685 Sep, Abnormal laboratory test R89.9 [facility] [address] [address] Sep, Generalized anxiety disorder F41.1 and Mild episode of recurrent major depressive disorder F33.0 [facility] [address] [address] Aug, Epigastric pain R10.13 and Encounter for therapeutic drug level monitoring Z51.81 [facility] [address] [address] Aug, Epigastric pain R10.13 and Gastro-esophageal reflux disease without esophagitis K21.9 [facility] [id number] [place] [address]34- [address] Aug, [place] [address] [address] Aug, Epigastric pain R10.13 [place] [address] [address]- [address] Aug, Fibromyalgia M79.7 [place] [address] 25544- [address] Aug, [place] [address] 7[address]89- 3357 Aug, Generalized anxiety disorder F41.1 and Mild episode of recurrent major depressive disorder F33.0 [facility] [id number] [place] [address] 39973- 9668 08 Aug, 2017 Epigastric pain R10.13 ; Reflex sympathetic dystrophy G90.50 and Arthritis M19.90 [facility] [id number] [place] [address] 87059- 2731 Jul, Generalized anxiety disorder F41.1 and Mild episode of recurrent major depressive disorder F33.0 [facility] [address] 68[address]- [address] Jul, BMI 40.0-44.9, adult Z68.41 ; Mild episode of recurrent major depressive disorder F33.0 and Generalized anxiety disorder F41.1 [facility] [address] [place] [address] 53227- 4257 Jul, Fibromyalgia M79.7 [facility] [id number] [place] [address] 38869- 5736 Jun, Mild episode of recurrent major depressive disorder F33.0 and Generalized anxiety disorder F41.1 [facility] [id number] [place] [address] 05758- 2466 Jun, Fibromyalgia M79.7 [facility] [id number] [place] [address] 54705- 3582 Jun, Generalized anxiety disorder F41.1 and Mild episode of recurrent major depressive disorder F33.0 [facility] [id number] [place] [address] 99329- 9573 Jun, Generalized anxiety disorder F41.1 and Mild episode of recurrent major depressive disorder F33.0 [facility] [id number] [place] [address] 57460- 7478 Jun, Generalized anxiety disorder F41.1 and Mild episode of recurrent major depressive disorder F33.0 [facility] [id number] [place] [address] 48436- 4517 Jun, [facility] [id number] [place] [address] 25707- 0718 Jun, Generalized anxiety disorder F41.1 and Mild episode of recurrent major depressive disorder F33.0 [facility] [id number] [place] [address] 99775- 6716 May, Fibromyalgia M79.7 [facility] [address] [place] [address] 64903- 7957 May, Generalized anxiety disorder F41.1 and Mild episode of recurrent major depressive disorder F33.0 [facility] [id number] [place] [address] 91305- 6542 May, Mixed hyperlipidemia E78.2 ; Arthritis M19.90 ; Reactive depression F32.9 and Hypothyroidism, unspecified type E03.9 [facility] [id number] [place] [address] 80834- 7139 May, Arthritis M19.90 ; Reactive depression F32.9 ; Mixed hyperlipidemia E78.2 and Hypothyroidism, unspecified type E03.9 [facility] [address] 99199- 3089 Apr, Fibromyalgia M79.7 [facility] [address] 57859- 6628 Apr, [facility] [address] 69697- [address]598 Apr, Fibromyalgia M79.7 [facility] [address] 51291- 4550 Mar, Fibromyalgia M79.7 [facility] [address] 26466- [address]484 Mar, [facility] [address] 39661- 1447 Mar, Fibromyalgia M79.7 [facility] [address] 57375- 2165 Mar, [facility] [address] 23209- [address] Feb, Reflex sympathetic dystrophy G90.50 ; Right arm pain M79.601 and Fibromyalgia M79.7 [facility] [address] 56696- 6903 Feb, [facility] [address] 49758- [address] 07 Feb, 2017 Anxiety F41.9 [facility] [address] 39787- 1683 Feb, Fibromyalgia M79.7 [facility] [id number] [place] [address] 24985- 4281 Feb, [facility] [id number] [place] [address] 10255- 1720 Feb, [facility] [id number] [place] [address] 01247- 9440 Jan, Temporal headache R51 [facility] [id number] [place] [address] 06697- 8938 Jan, Fibromyalgia M79.7 [facility] [id number] [place] [address] 02044- 4942 Dec, Fibromyalgia M79.7 [facility] [id number] [place] [address] 37558- 2448 Nov, Peroneal tendonitis, unspecified laterality M76.70 and Plantar fasciitis, bilateral M72.2 [facility] [id number] [place] [address] 12410- 4904 Nov, Fibromyalgia M79.7 [facility] [id number] [place] [address] 28601- 8449 October, Fibromyalgia M79.7 [facility] [id number] [place] [address] 75265- 7568 October, Plantar fasciitis, bilateral M72.2 and Peroneal tendonitis, unspecified laterality M76.70 [facility] [address] [place] [address] 47153- 6113 October, Fibromyalgia M79.7 [facility] [id number] [place] [address] 14601- 3541 Sep, Anxiety F41.9 [facility] [address] [place] [address] 35199- 8820 Aug, Anxiety F41.9 and Adjustment disorder with anxiety F43.22 [place] [address] 6[address]89- [address] Aug, Pain of left foot M79.672 [place] [address] 40978- [address] Aug, Pain of left foot M79.672 and Pain in right foot M79.671 [place] [address] 11958- 9525 Aug, Arthritis M19.90 ; Reactive depression F32.9 ; Fibromyalgia M79.7 ; Rosacea L71.9 ; Pain in right foot M79.671 and Pain of left foot M79.672 [place] [address] 18316- 9406 Aug, Anxiety F41.9 ; Adjustment disorder with anxiety F43.22 and Reactive depression F32.9 [place] [address] 46653- 8683 Aug, Right elbow pain M25.521 [place] [address] 36591- 5906 Aug, Plantar wart of right foot B07.0 and Actinic keratosis L57.0 [place] [address] 00642- 1167 Aug, Fibromyalgia M79.7 [place] [address] 20330- 5145 Jul, Arthritis M19.90 ; Hypothyroidism, unspecified type E03.9 ; Reactive depression F32.9 and Venous insufficiency I87.2 [place] [address] 66082- 1290 Jul, Gastroesophageal reflux disease, esophagitis presence not specified K21.9 [place] [address] 39766- 2607 Jul, Reflex sympathetic dystrophy G90.50 [place] [id number] [place] [address] 61026- 0140 17 Jul, 2016 Anxiety F41.9 ; Adjustment disorder with anxiety F43.22 and Reactive depression F32.9 [facility] [id number] [place] [address] 42553- 2663 15 Jul, 2016 [facility] [address] 83035- 5868 03 Jul, 2016 Right elbow pain M25.521 [facility] [id number] [place] [address] 41831- 1115 Jun, Fibromyalgia M79.7 [place] [address] 00736- 6316 Jun, Anxiety F41.9 ; Adjustment disorder with anxiety F43.22 and Reactive depression F32.9 [place] [address] 41583- 4009 Jun, [facility] [address] 01535- 1006 Jun, Atypical chest pain R07.89 and Adjustment disorder with anxiety F43.22 [place] [address] [id number] Jun, Chest pain, unspecified type R07.9 [facility] [id number] [place] [address] 35519- 5419 Jun, Fibromyalgia M79.7 [facility] [id number] [place] [address] 38572- 1276 May, Anxiety F41.9 [facility] [address] 60574- [address] May, [facility] [address] 06955- 1567 May, Right elbow pain M25.521 [facility] [address] 75122- 9482 Apr, Reflex sympathetic dystrophy G90.50 and Encounter for immunization Z23 [facility] [id number] [place] [address] 20180- 4971 Apr, [facility] [id number] [place] [address] 44535- 3775 Mar, [facility] [id number] [place] [address] 65210- 6461 Feb, [facility] [id number] [place] [address] 87191- 7455 Feb, [facility] [id number] [place] [address] 93308- 1462 Jan, [facility] [id number] [place] [address] 39214- 5320 Jan, Right elbow pain M25.521 and Right wrist pain M25.531 [facility] [id number] [place] [address] 09074- 1827 Jan, [facility] [id number] [place] [address] 21868- 1492 Dec, Seborrheic keratoses L82.1 [facility] [id number] [place] [address] 38419- 7962 Dec, [facility] [id number] [place] [address] 81369- 4933 Dec, [facility] [id number] [place] [address] 17061- 9215 Dec, [facility] [id number] [place] [address] 96756- 6545 Dec, Fibromyalgia M79.7 and Hypothyroidism, unspecified type E03.9 [facility] [id number] [place] [address] 29714- 3570 Dec, Seborrheic keratoses L82.1 [facility] [id number] [address] Dec, [facility] [address] [address]- 7[address] Dec, [facility] [address] [address]- 8206 Nov, Sebaceous cyst L72.3 [place] [id number] [place] [address] 04432- 3328 October, Breast cancer screening Z12.39 [place] [address] [address] 16[address] October, Fibromyalgia M79.7 ; Hypothyroidism, unspecified type E03.9 and Reflex sympathetic dystrophy G90.50 [place] [id number] [address]- 8[address] October, Reflex sympathetic dystrophy G90.50 ; Fibromyalgia M79.7 and Hypothyroidism, unspecified type E03.9 IMMUNIZATIONS No Known Immunizations SOCIAL HISTORY Never Assessed REASON FOR VISIT Hydrocodone- 84 PLAN OF CARE VITAL SIGNS MEDICATIONS Medication Instructions Dosage Frequency Start Date End Date Duration Status Hydrocodone-Acetaminophen 7.5-325 MG Orally 3 times a day 1 tablet 8h Jan, 28 days Active RESULTS No Results PROCEDURES [...]
--- OUTSIDE RECORDS SUMMARY | 2018-03-07 18:04 | XMS REPORT ---
Author Author JOE BAI [facility] Address [address] [place] [address] Care Team Providers Care Caustic Operator Name Role Phone JOE BAI Unavailable PROBLEMS Type Condition ICD9-CM Code MHC83-EK Code Onset Dates Condition Status SNOMED Code Problem Reactive depression F32.9 Active 60555938 Problem Plantar wart of right foot B07.0 Active 16853393 Problem Gastroesophageal reflux disease, esophagitis presence not specified K21.9 Active 618894262 Problem Internal derangement of right knee M23.91 Active 561616703125645 Problem Abnormal laboratory test R89.9 Active 038625270 Problem Mixed hyperlipidemia E78.2 Active 068459814 Problem Rosacea L71.9 Active 944762739 Problem Mild episode of recurrent major depressive disorder F33.0 Active 080139626 Problem Generalized anxiety disorder F41.1 Active 44495420 Problem Hypothyroidism, unspecified type E03.9 Active 98138364 Problem Right elbow pain M25.521 Active 27073113 Problem Right wrist pain M25.531 Active 47889958 Problem Reflex sympathetic dystrophy G90.50 Active 43757876 Problem Venous insufficiency I87.2 Active 30666924 Problem Fibromyalgia M79.7 Active 459313947 Problem Arthritis M19.90 Active 8338232 ALLERGIES No Information ENCOUNTERS Encounter Location Date Diagnosis [facility] [id number] [address] Dec, [facility] [id number] [place] [address] 09799- 5444 Dec, [facility] [id number] [place] [address] 84319- 9264 Dec, [facility] [id number] [address] Dec, [facility] [id number] [address]100 02 Dec, 2017 Mild episode of recurrent major depressive disorder F33.0 and Generalized anxiety disorder F41.1 [facility] [id number] [address] 30 Nov, 2017 [facility] [address] [address] Nov, [facility] [id number] [place] [address] 32600- 3916 Nov, [facility] [id number] [place] [address] 73818- 0221 Nov, Internal derangement of right knee M23.91 [facility] [address] [address] 3581 27 Nov, 2017 Generalized anxiety disorder F41.1 and Mild episode of recurrent major depressive disorder F33.0 [facility] [address] [address] 3363 Nov, Internal derangement of right knee M23.91 [facility] [id number] [place] [address] 25400 -6098 19 Nov, 2017 Acute right ankle pain M25.571 ; Acute pain of right knee M25.561 ; Acute left-sided low back pain without sciatica M54.5 and Right leg pain M79.604 [facility] [address] [address] 15 Nov, 2017 [facility] [address] [address] 0603 14 Nov, 2017 Fibromyalgia M79.7 [facility] [id number] [place] [address] 57626- 9469 13 Nov, 2017 Generalized anxiety disorder F41.1 and Mild episode of recurrent major depressive disorder F33.0 [facility] [address] [address] 3[address] Nov, [facility] [id number] [place] [address] 14999- 9147 October, Generalized anxiety disorder F41.1 and Mild episode of recurrent major depressive disorder F33.0 [facility] [id number] [place] [address] 12917- 8124 October, Fibromyalgia M79.7 [facility] [id number] [place] [address] 19277- 6861 October, [facility] [id number] [place] [address] 29220- 6895 October, Generalized anxiety disorder F41.1 and Mild episode of recurrent major depressive disorder F33.0 [facility] [id number] [place] [address] 35088- 2769 October, [facility] [id number] [place] [address] 78639- 9417 Sep, Gastroesophageal reflux disease, esophagitis presence not specified K21.9 and Abnormal laboratory test R89.9 [facility] [id number] [place] [address] 09565- 1063 Sep, Fibromyalgia M79.7 [facility] [id number] [place] [address] 83933- 0668 Sep, Generalized anxiety disorder F41.1 and Mild episode of recurrent major depressive disorder F33.0 [facility] [id number] [place] [address] 02952- 4927 Sep, Epigastric pain R10.13 [facility] [id number] [place] [address] 35077- 6998 10 Sep, 2017 Mild episode of recurrent major depressive disorder F33.0 and Generalized anxiety disorder F41.1 [facility] [id number] [place] [address] 52425- 7998 Sep, Abnormal laboratory test R89.9 [facility] [id number] [place] [address] 47336- 3195 Sep, Generalized anxiety disorder F41.1 and Mild episode of recurrent major depressive disorder F33.0 [facility] [id number] [place] [address] 37713- 7478 29 Aug, 2017 Epigastric pain R10.13 and Encounter for therapeutic drug level monitoring Z51.81 [facility] [id number] [place] [address] 71879 -3262 Aug, Epigastric pain R10.13 and Gastro-esophageal reflux disease without esophagitis K21.9 [facility] [id number] [place] [address] 45909- 6255 Aug, [facility] [address] 29312- 1740 Aug, Epigastric pain R10.13 [facility] [address] 88308- 8822 Aug, Fibromyalgia M79.7 [facility] [id number] [place] [address] 98578- 5749 14 Aug, 2017 [facility] [address] 78085- 2173 14 Aug, 2017 Generalized anxiety disorder F41.1 and Mild episode of recurrent major depressive disorder F33.0 [facility] [id number] [place] [address] 94637- 9827 08 Aug, 2017 Epigastric pain R10.13 ; Reflex sympathetic dystrophy G90.50 and Arthritis M19.90 [facility] [id number] [place] [address] 79142- 3986 Jul, Generalized anxiety disorder F41.1 and Mild episode of recurrent major depressive disorder F33.0 [facility] [id number] [place] [address] 37536- 3155 Jul, BMI 40.0-44.9, adult Z68.41 ; Mild episode of recurrent major depressive disorder F33.0 and Generalized anxiety disorder F41.1 [facility] [address] [address]- 3641 Jul, Fibromyalgia M79.7 [facility] [id number] [place] [address] 67812- 3706 Jun, Mild episode of recurrent major depressive disorder F33.0 and Generalized anxiety disorder F41.1 [facility] [id number] [place] [address] 44625- 1296 Jun, Fibromyalgia M79.7 [facility] [id number] [place] [address] 16465- 6751 Jun, Generalized anxiety disorder F41.1 and Mild episode of recurrent major depressive disorder F33.0 [facility] [id number] [place] [address] 88694- 1431 Jun, Generalized anxiety disorder F41.1 and Mild episode of recurrent major depressive disorder F33.0 [facility] [id number] [place] [address] 05195- 3799 Jun, Generalized anxiety disorder F41.1 and Mild episode of recurrent major depressive disorder F33.0 [facility] [id number] [place] [address] 85447- 1223 Jun, [facility] [id number] [place] [address] 69759- 9949 Jun, Generalized anxiety disorder F41.1 and Mild episode of recurrent major depressive disorder F33.0 [facility] [id number] [place] [address] 57010- 4346 May, Fibromyalgia M79.7 [facility] [id number] [place] [address] 47537- 2986 May, Generalized anxiety disorder F41.1 and Mild episode of recurrent major depressive disorder F33.0 [facility] [id number] [place] [address] 02894- 1907 May, Mixed hyperlipidemia E78.2 ; Arthritis M19.90 ; Reactive depression F32.9 and Hypothyroidism, unspecified type E03.9 [facility] [id number] [place] [address] 77315- 3023 May, Arthritis M19.90 ; Reactive depression F32.9 ; Mixed hyperlipidemia E78.2 and Hypothyroidism, unspecified type E03.9 [facility] [id number] [place] [address] 61196- 3371 Apr, Fibromyalgia M79.7 [facility] [address] 51757- 6436 Apr, [facility] [address] 08365- 8245 Apr, Fibromyalgia M79.7 [facility] [address] 37191- 5584 Mar, Fibromyalgia M79.7 [facility] [address] 64159- 9392 Mar, [facility] [id number] [place] [address] 37843- 2549 Mar, Fibromyalgia M79.7 [facility] [address] 49334 2546 Mar, [facility] [id number] [place] [address] 89421- 2547 Feb, Reflex sympathetic dystrophy G90.50 ; Right arm pain M79.601 and Fibromyalgia M79.7 [facility] [id number] [place] [address] 09349 2546 Feb, [facility] [address] [address] 2546 07 Feb, 2017 Anxiety F41.9 [facility] [id number] [place] [address] 64860- 2546 06 Feb, 2017 Fibromyalgia M79.7 [facility] [address] 28860- 2546 Feb, [facility] [id number] [place] [address] 14215- 1524 Feb, [facility] [id number] [place] [address] 27114- 3620 Jan, Temporal headache R51 [facility] [id number] [place] [address] 26682- 5214 Jan, Fibromyalgia M79.7 [facility] [id number] [place] [address] 75974- 8248 Dec, Fibromyalgia M79.7 [facility] [id number] [place] [address] 80393- 1632 Nov, Peroneal tendonitis, unspecified laterality M76.70 and Plantar fasciitis, bilateral M72.2 [facility] [id number] [place] [address] 44524- 2835 Nov, Fibromyalgia M79.7 [facility] [id number] [place] [address] 37588- 5232 October, Fibromyalgia M79.7 [facility] [id number] [place] [address] 63568- 1828 October, Plantar fasciitis, bilateral M72.2 and Peroneal tendonitis, unspecified laterality M76.70 [facility] [id number] [place] [address] 21054- 3964 October, Fibromyalgia M79.7 [facility] [id number] [place] [address] 69616- 6046 Sep, Anxiety F41.9 [facility] [id number] [place] [address] 46877- 0500 Aug, Anxiety F41.9 and Adjustment disorder with anxiety F43.22 [facility] [id number] [place] [address] 00998- 9195 Aug, Pain of left foot M79.672 [facility] [id number] [place] [address] 56833- 6232 Aug, Pain of left foot M79.672 and Pain in right foot M79.671 [facility] [address] 78656- 1061 Aug, Arthritis M19.90 ; Reactive depression F32.9 ; Fibromyalgia M79.7 ; Rosacea L71.9 ; Pain in right foot M79.671 and Pain of left foot M79.672 [address] [facility] [address] 14881- 6443 Aug, Anxiety F41.9 ; Adjustment disorder with anxiety F43.22 and Reactive depression F32.9 [facility] [address] 34613- 7579 Aug, Right elbow pain M25.521 [facility] [address] 11810- 0891 Aug, Plantar wart of right foot B07.0 and Actinic keratosis L57.0 [facility] [address] 13483- 1696 Aug, Fibromyalgia M79.7 [facility] [address] 20551- 3358 Jul, Arthritis M19.90 ; Hypothyroidism, unspecified type E03.9 ; Reactive depression F32.9 and Venous insufficiency I87.2 [facility] [address] 94447- 5261 Jul, Gastroesophageal reflux disease, esophagitis presence not specified K21.9 [facility] [address] 91418- 8256 Jul, Reflex sympathetic dystrophy G90.50 [facility] [address] 93383- 3216 Jul, Anxiety F41.9 ; Adjustment disorder with anxiety F43.22 and Reactive depression F32.9 [facility] [address] 93101- 1016 15 Jul, 2016 [facility] [address] 81596- 5972 03 Jul, 2016 Right elbow pain M25.521 [facility] [address] 02763- 6765 Jun, Fibromyalgia M79.7 [facility] [address] 30896- 6064 Jun, Anxiety F41.9 ; Adjustment disorder with anxiety F43.22 and Reactive depression F32.9 [facility] [facility] [address] 37321- 2086 Jun, [facility] [facility] [address] 49821- 0822 Jun, Atypical chest pain R07.89 and Adjustment disorder with anxiety F43.22 [facility] [address] [id number] Jun, Chest pain, unspecified type R07.9 [place] [address] 52571- 2651 Jun, Fibromyalgia M79.7 [facility] [address] 00723- 3424 May, Anxiety F41.9 [facility] [address] 67472- 5427 14 May, 2016 [facility] [address] 46425- 2005 13 May, 2016 Right elbow pain M25.521 [facility] [address] 83417- 2006 Apr, Reflex sympathetic dystrophy G90.50 and Encounter for immunization Z23 [facility] [facility] [address] 87751- 7303 Apr, [facility] [address] [address]- 0470 Mar, [facility] [id number] [place] [address] 01579- 6482 Feb, [facility] [id number] [place] [address] 59718- 2919 Feb, [facility] [id number] [place] [address] 41935- 0511 Jan, [facility] [id number] [place] [address] 48851- 1837 Jan, Right elbow pain M25.521 and Right wrist pain M25.531 [facility] [id number] [place] [address] 14707- 8039 Jan, [facility] [id number] [place] [address] 51341- 5292 Dec, Seborrheic keratoses L82.1 [facility] [id number] [place] [address] 17225- 6552 Dec, [facility] [id number] [place] [address] 73427- 1269 Dec, [facility] [address] [address]- 5733 Dec, [facility] [id number] [place] [address] 37296- 2311 Dec, Fibromyalgia M79.7 and Hypothyroidism, unspecified type E03.9 [facility] [id number] [place] [address] 43841- 5379 Dec, Seborrheic keratoses L82.1 [facility] [address] [address]- 2539 Dec, [facility] [id number] [place] [address] 66881- 5552 Dec, [facility] [address] [facility] [id number] [place] [address]- 5675 Nov, Sebaceous cyst L72.3 [facility] [address] [facility] [id number] [address]- 9413 October, Breast cancer screening Z12.39 [facility] [id number] [address]- 1587 October, Fibromyalgia M79.7 ; Hypothyroidism, unspecified type E03.9 and Reflex sympathetic dystrophy G90.50 [place] [address] [facility] [id number] [address]- 4634 October, Reflex sympathetic dystrophy G90.50 ; Fibromyalgia M79.7 and Hypothyroidism, unspecified type E03.9 IMMUNIZATIONS No Known Immunizations SOCIAL HISTORY Never Assessed REASON FOR VISIT Hydrocodone 08/11 PLAN OF CARE VITAL SIGNS MEDICATIONS Medication Instructions Dosage Frequency Start Date End Date Duration Status Hydrocodone-Acetaminophen 7.5-325 MG Orally 3 times a day 1 tablet 8h Jul, 28 days Active RESULTS No Results PROCEDURES [...]
--- OUTSIDE RECORDS SUMMARY | 2018-03-07 18:04 | XMS REPORT ---
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 Name Role Phone JOE BAI Unavailable PROBLEMS Type Condition ICD9-CM Code NMB35-GK Code Onset Dates Condition Status SNOMED Code Problem Arthritis M19.90 Active 3257257 Problem Gastroesophageal reflux disease, esophagitis presence not specified K21.9 Active 580041390 Problem Reactive depression F32.9 Active 87094897 Problem Abnormal laboratory test R89.9 Active 231828130 Problem Mild episode of recurrent major depressive disorder F33.0 Active 245976980 Problem Rosacea L71.9 Active 906416418 Problem Plantar wart of right foot B07.0 Active 69774446 Problem Generalized anxiety disorder F41.1 Active 14874788 Problem Mixed hyperlipidemia E78.2 Active 972361027 Problem Fibromyalgia M79.7 Active 688795533 Problem Right elbow pain M25.521 Active 77759612 Problem Hypothyroidism, unspecified type E03.9 Active 11743390 Problem Right wrist pain M25.531 Active 46262976 Problem Reflex sympathetic dystrophy G90.50 Active 28672735 Problem Venous insufficiency I87.2 Active 64310383 ALLERGIES No Information ENCOUNTERS Encounter Location Date Diagnosis [facility], [place] [id number] [address] Dec, [facility], [place] [id number] [address] Nov, [facility], [place] [address] [place] [address] 70112- 0786 Nov, [facility], [place] [id number] [address] October, Generalized anxiety disorder F41.1 and Mild episode of recurrent major depressive disorder F33.0 [facility], [place] [address] [place] [address] 26468- 8969 October, Fibromyalgia M79.7 [facility], [place] [id number] [place] [address] 18116- 4346 October, [facility], [place] [id number] [place] [address] 23342- 0085 October, Generalized anxiety disorder F41.1 and Mild episode of recurrent major depressive disorder F33.0 [facility], [place] [id number] [place] [address] 63823- 3764 October, [facility], [place] [id number] [place] [address] 62551- 2654 Sep, Gastroesophageal reflux disease, esophagitis presence not specified K21.9 and Abnormal laboratory test R89.9 [facility] [id number] [place] [address] 97013- 6369 Sep, Fibromyalgia M79.7 [facility], [place] [id number] [place] [address] 34770- 7795 Sep, Generalized anxiety disorder F41.1 and Mild episode of recurrent major depressive disorder F33.0 [facility] [facility] [id number] [place] [address] 97270- 6003 Sep, Epigastric pain R10.13 [place] [id number] [place] [address] 72633- 2506 Sep, Mild episode of recurrent major depressive disorder F33.0 and Generalized anxiety disorder F41.1 [facility], [place] [id number] [place] [address] 32907- 3780 Sep, Abnormal laboratory test R89.9 [facility], [place] [id number] [place] [address] 14468- 1209 Sep, Generalized anxiety disorder F41.1 and Mild episode of recurrent major depressive disorder F33.0 [place] [address] [place] [address] 14953- 2537 Aug, Epigastric pain R10.13 and Encounter for therapeutic drug level monitoring Z51.[address] [facility] [id number] [place] [address] 13807 -6171 Aug, Epigastric pain R10.13 and Gastro-esophageal reflux disease without esophagitis K21.9 [facility], [place] [id number] [place] [address] 38725- 7969 Aug, [facility], [place] [id number] [place] [address] 65199- 5866 Aug, Epigastric pain R10.13 [place] [id number] [place] [address] 49424- 3616 Aug, Fibromyalgia M79.7 [facility], [place] [id number] [place] [address] 28311- 4255 Aug, [place] [address] 72180- 8748 Aug, Generalized anxiety disorder F41.1 and Mild episode of recurrent major depressive disorder F33.0 [facility] [id number] [place] [address] 83684- 6805 08 Aug, 2017 Epigastric pain R10.13 ; Reflex sympathetic dystrophy G90.50 and Arthritis M19.90 [facility], [place] [id number] [place] [address] 40468- 8180 Jul, Generalized anxiety disorder F41.1 and Mild episode of recurrent major depressive disorder F33.0 [facility], [place] [id number] [place] [address] 12630- 2267 Jul, BMI 40.0-44.9, adult Z68.41 ; Mild episode of recurrent major depressive disorder F33.0 and Generalized anxiety disorder F41.1 [facility], [place] [id number] [place] [address] 19775- 1912 Jul, Fibromyalgia M79.7 [place] [id number] [place] [address] 64713- 9140 Jun, Mild episode of recurrent major depressive disorder F33.0 and Generalized anxiety disorder F41.1 [facility], [place] [address] [place] [address] 51031- 0483 Jun, Fibromyalgia M79.7 [facility], [place] [address] [place] [address] 55178- 3646 Jun, Generalized anxiety disorder F41.1 and Mild episode of recurrent major depressive disorder F33.0 [facility], [place] [id number] [place] [address] 78377- 6733 Jun, Generalized anxiety disorder F41.1 and Mild episode of recurrent major depressive disorder F33.0 [facility], [place] [id number] [place] [address] 55326- 0726 Jun, Generalized anxiety disorder F41.1 and Mild episode of recurrent major depressive disorder F33.0 [facility], [place] [id number] [place] [address] 41376- 9422 Jun, [facility], [place] [id number] [place] [address] 53357- 4728 Jun, Generalized anxiety disorder F41.1 and Mild episode of recurrent major depressive disorder F33.0 [facility], [place] [address] [place] [address] 71465- 9775 May, Fibromyalgia M79.7 [facility], [place] [address] [place] [address] 51918- 3440 May, Generalized anxiety disorder F41.1 and Mild episode of recurrent major depressive disorder F33.0 [facility], [place] [address] [address] May, Mixed hyperlipidemia E78.2 ; Arthritis M19.90 ; Reactive depression F32.9 and Hypothyroidism, unspecified type E03.9 [facility], [place] [address] [address] May, Arthritis M19.90 ; Reactive depression F32.9 ; Mixed hyperlipidemia E78.2 and Hypothyroidism, unspecified type E03.9 [facility], [place] [id number] [place] [address] 54116 2548 Apr, Fibromyalgia M79.7 [facility], [place] [id number] [place] [address] 56813 2546 Apr, [facility], [place] [id number] [place] [address] 59010 2546 Apr, Fibromyalgia M79.7 [facility], [place] [address] [address]65 2546 Mar, Fibromyalgia M79.7 [facility], [place] [address] 26250- 3636 Mar, [facility], [place] [id number] [place] [address] 54115 2546 Mar, Fibromyalgia M79.7 [facility], [place] [address] 12640 2545 Mar, [facility], [place] [id number] [place] [address] 74159 2544 Feb, Reflex sympathetic dystrophy G90.50 ; Right arm pain M79.601 and Fibromyalgia M79.7 [facility], [place] [id number] [place] [address] 55553- 2546 Feb, [facility], [place] [id number] [place] [address] 43868 2546 Feb, Anxiety F41.9 [facility], [place] [id number] [place] [address] 51539 2546 Feb, Fibromyalgia M79.7 [facility], [place] [id number] [place] [address] 06749 2546 Feb, [facility], [place] [id number] [place] [address] 26362 2546 Feb, [facility], [place] [id number] [place] [address] 68888- 1931 Jan, Temporal headache R51 [facility], [place] [id number] [place] [address] 77631- 0722 Jan, Fibromyalgia M79.7 [facility], [place] [id number] [place] [address] 93132- 4777 Dec, Fibromyalgia M79.7 [facility], [place] [address] 99014- 2534 Nov, Peroneal tendonitis, unspecified laterality M76.70 and Plantar fasciitis, bilateral M72.2 [facility], [place] [id number] [place] [address] 76845- 2575 Nov, Fibromyalgia M79.7 [facility], [place] [id number] [place] [address] 19250- 6016 October, Fibromyalgia M79.7 [facility], [place] [address] 47198- 9642 October, Plantar fasciitis, bilateral M72.2 and Peroneal tendonitis, unspecified laterality M76.70 [place] [id number] [place] [address] 19564- 9370 October, Fibromyalgia M79.7 [facility], [place] [id number] [place] [address] 10581- 9114 Sep, Anxiety F41.9 [place] [address] 99750- 7838 Aug, Anxiety F41.9 and Adjustment disorder with anxiety F43.22 [facility], [place] [id number] [place] [address] 07881- 7794 Aug, Pain of left foot M79.672 [place] [address] 56274- 3045 Aug, Pain of left foot M79.672 and Pain in right foot M79.671 [facility], [place] [address] [place] [address] 96227- 7370 Aug, Arthritis M19.90 ; Reactive depression F32.9 ; Fibromyalgia M79.7 ; Rosacea L71.9 ; Pain in right foot M79.671 and Pain of left foot M79.672 [place] [address] [place] [address] 47187- 3959 Aug, Anxiety F41.9 ; Adjustment disorder with anxiety F43.22 and Reactive depression F32.9 [place] [address] 78491- 6708 14 Aug, 2016 Right elbow pain M25.521 [place] [address] 23650- 0843 Aug, Plantar wart of right foot B07.0 and Actinic keratosis L57.0 [place] [id number] [place] [address] 22162- 7033 Aug, Fibromyalgia M79.7 [place] [address] [place] [address] 22949- 8596 Jul, Arthritis M19.90 ; Hypothyroidism, unspecified type E03.9 ; Reactive depression F32.9 and Venous insufficiency I87.2 [place] [address] [place] [address] 88894- 3723 Jul, Gastroesophageal reflux disease, esophagitis presence not specified K21.9 [place] [address] [place] [address] 86107- 9942 Jul, Reflex sympathetic dystrophy G90.50 [place] [address] 02657- 1516 Jul, Anxiety F41.9 ; Adjustment disorder with anxiety F43.22 and Reactive depression F32.9 [place] [id number] [place] [address] 03588- 8569 Jul, [place] [address] 98044- 0140 Jul, Right elbow pain M25.521 [facility], [place] [address] 18624- 4124 Jun, Fibromyalgia M79.7 [facility], [place] [address] 78924- 3506 Jun, Anxiety F41.9 ; Adjustment disorder with anxiety F43.22 and Reactive depression F32.9 [place] [address] 33773- 7119 Jun, [facility], [place] [address] 62166- 0786 Jun, Atypical chest pain R07.89 and Adjustment disorder with anxiety F43.22 [place] [address] [id number] Jun, Chest pain, unspecified type R07.9 [place] [address] 30116- 0631 Jun, Fibromyalgia M79.7 [facility], [place] [address] 94007- 7421 May, Anxiety F41.9 [facility], [place] [address] 33022- 0857 14 May, 2016 [facility], [place] [address] 82633- 9508 May, Right elbow pain M25.521 [facility], [place] [address] 29722- 6538 Apr, Reflex sympathetic dystrophy G90.50 and Encounter for immunization Z23 [place] [address] 05324- 5072 Apr, [facility], [place] [address] 19406- 8138 14 Mar, 2016 [facility], [place] [address] 98874- 5288 Feb, [facility], [place] [address] [address]- 3463 Feb, [facility], [place] [id number] [place] [address] 16678- 2016 Jan, [facility], [place] [address] [place] [address] 93771- 6215 Jan, Right elbow pain M25.521 and Right wrist pain M25.531 [facility], [place] [address] [place] [address] 17151- 4637 Jan, [facility], [place] [id number] [place] [address] 11169- 9917 Dec, Seborrheic keratoses L82.1 [facility], [place] [address] [place] [address] 83607- 0739 Dec, [facility], [place] [address] [place] [address] 64703- 4288 Dec, [facility], [place] [address] [place] [address] 42324- 9709 Dec, [facility], [place] [id number] [place] [address] 28004- 8577 Dec, Fibromyalgia M79.7 and Hypothyroidism, unspecified type E03.9 [facility], [place] [address] [address]- 9269 Dec, Seborrheic keratoses L82.1 [facility], [place] [address] [address]- 0772 Dec, [facility], [place] [id number] [address]- 2897 Dec, [facility], [place] [id number] [address]- 7107 Nov, Sebaceous cyst L72.3 [facility], [place] [id number] [address]- 8999 October, Breast cancer screening Z12.39 [facility], [place] [address] [facility] [id number] [address]- 7371 October, Fibromyalgia M79.7 ; Hypothyroidism, unspecified type E03.9 and Reflex sympathetic dystrophy G90.50 [facility], [place] [address] [facility] [id number] [address]- 5463 October, Reflex sympathetic dystrophy G90.50 ; Fibromyalgia M79.7 and Hypothyroidism, unspecified type E03.9 IMMUNIZATIONS No Known Immunizations SOCIAL HISTORY Never Assessed REASON FOR VISIT Lab (walk-in) PLAN OF CARE VITAL SIGNS MEDICATIONS Unknown Medications RESULTS No Results PROCEDURES Procedure Date Ordered Result Body Site LAB NOT BILLED BY [facility] Jun 01, 2017 VENIPUNCT, ROUTINE* Jun 01, 2017 INSTRUCTIONS MEDICATIONS ADMINISTERED No Known Medications [...] resection Hospitalization History surgeries Hospitalization History Chest Pain-[facility] 07/02/16 Hospitalization History Chest Pain - [facility] 10/06/17
--- OUTSIDE RECORDS SUMMARY | 2018-03-07 18:05 | XMS REPORT ---
Author Author FRANK CHAPMAN Organization [facility] Address [address] [place] [address] Care Team Providers Care Television Anchor Name Role Phone FRANK CHAPMAN Unavailable PROBLEMS Type Condition ICD9-CM Code CCF76-MA Code Onset Dates Condition Status SNOMED Code Problem Reactive depression F32.9 Active 36410978 Problem Plantar wart of right foot B07.0 Active 19280813 Problem Gastroesophageal reflux disease, esophagitis presence not specified K21.9 Active 685688629 Problem Internal derangement of right knee M23.91 Active [id number] Problem Abnormal laboratory test R89.9 Active 369553070 Problem Mixed hyperlipidemia E78.2 Active 502259916 Problem Rosacea L71.9 Active 259884790 Problem Mild episode of recurrent major depressive disorder F33.0 Active 436165550 Problem Generalized anxiety disorder F41.1 Active 84383508 Problem Hypothyroidism, unspecified type E03.9 Active 75801032 Problem Right elbow pain M25.521 Active 92567115 Problem Right wrist pain M25.531 Active 50663579 Problem Reflex sympathetic dystrophy G90.50 Active 62730118 Problem Venous insufficiency I87.2 Active 01846728 Problem Fibromyalgia M79.7 Active 702689383 Problem Arthritis M19.90 Active 9684188 ALLERGIES No Information ENCOUNTERS Encounter Location Date Diagnosis [facility] [id number], [place] [address] Dec, [facility] [address], [place] [address] Dec, [facility] [address], [place] [address] Dec, [facility] [id number], [place] [address] Dec, [facility] [address], [place] [address] 02 Dec, 2017 Mild episode of recurrent major depressive disorder F33.0 and Generalized anxiety disorder F41.1 [facility] [address], [place] [address] 30 Nov, 2017 [facility] [address], [place] [address] Nov, [facility] [id number] [place] [address] 74290- 1707 Nov, [facility] [address], [place] [address] 75[address] Nov, Internal derangement of right knee M23.91 [facility] [address], [place] [address] 0874 27 Nov, 2017 Generalized anxiety disorder F41.1 and Mild episode of recurrent major depressive disorder F33.0 [facility] [address], [place] [address] 8[address] Nov, Internal derangement of right knee M23.91 [facility] [address], [place] [address] 19 Nov, 2017 Acute right ankle pain M25.571 ; Acute pain of right knee M25.561 ; Acute left-sided low back pain without sciatica M54.5 and Right leg pain M79.604 [facility] [address], [place] [address] 15 Nov, 2017 [place] [address], [place] [address] 47[address] 14 Nov, 2017 Fibromyalgia M79.7 [facility] [facility] [id number] [place] [address] 74786- 4871 13 Nov, 2017 Generalized anxiety disorder F41.1 and Mild episode of recurrent major depressive disorder F33.0 [facility] [address], [place] [address] 8[address] Nov, [facility] [address], [place] [address] 1308 October, Generalized anxiety disorder F41.1 and Mild episode of recurrent major depressive disorder F33.0 [facility] [id number] [place] [address] 27305- 4032 October, Fibromyalgia M79.7 [facility] [id number] [place] [address] 38549- 5518 October, [facility] [id number] [place] [address] 85858- 3191 October, Generalized anxiety disorder F41.1 and Mild episode of recurrent major depressive disorder F33.0 [facility] [id number] [place] [address] 52876- 3727 October, [facility] [id number] [place] [address] 91952- 7092 Sep, Gastroesophageal reflux disease, esophagitis presence not specified K21.9 and Abnormal laboratory test R89.9 [facility] [id number] [place] [address] 55275- 0992 Sep, Fibromyalgia M79.7 [facility] [id number] [place] [address] 39736- 8096 Sep, Generalized anxiety disorder F41.1 and Mild episode of recurrent major depressive disorder F33.0 [facility] [id number] [place] [address] 14765- 4836 Sep, Epigastric pain R10.13 [facility] [id number] [place] [address] 10737- 8880 Sep, Mild episode of recurrent major depressive disorder F33.0 and Generalized anxiety disorder F41.1 [facility] [id number] [place] [address] 86914- 8617 Sep, Abnormal laboratory test R89.9 [facility] [id number] [place] [address] 41765- 8830 Sep, Generalized anxiety disorder F41.1 and Mild episode of recurrent major depressive disorder F33.0 [facility] [id number] [place] [address] 44207- 8008 29 Aug, 2017 Epigastric pain R10.13 and Encounter for therapeutic drug level monitoring Z51.81 [facility] [id number] [place] [address] 52398 -2437 Aug, Epigastric pain R10.13 and Gastro-esophageal reflux disease without esophagitis K21.9 [facility] [id number] [place] [address] 98968- 5747 Aug, [facility] [address] [address]- 6208 Aug, Epigastric pain R10.13 [facility] [id number] [place] [address] 97327- 4990 Aug, Fibromyalgia M79.7 [facility] [id number] [place] [address] 68968- 6996 14 Aug, 2017 [place] [address] 37245- 8242 Aug, Generalized anxiety disorder F41.1 and Mild episode of recurrent major depressive disorder F33.0 [facility] [id number] [place] [address] 73789- 2952 08 Aug, 2017 Epigastric pain R10.13 ; Reflex sympathetic dystrophy G90.50 and Arthritis M19.90 [facility] [id number] [place] [address] 26202- 6117 Jul, Generalized anxiety disorder F41.1 and Mild episode of recurrent major depressive disorder F33.0 [facility] [facility] [id number] [place] [address] 88048- 4743 Jul, BMI 40.0-44.9, adult Z68.41 ; Mild episode of recurrent major depressive disorder F33.0 and Generalized anxiety disorder F41.1 [facility] [facility] [id number] [place] [address] 62294- 6577 Jul, Fibromyalgia M79.7 [facility] [id number] [place] [address] 44116- 2566 Jun, Mild episode of recurrent major depressive disorder F33.0 and Generalized anxiety disorder F41.1 [facility] [id number] [place] [address] 63345- 4246 Jun, Fibromyalgia M79.7 [facility] [id number] [place] [address] 08875- 0747 Jun, Generalized anxiety disorder F41.1 and Mild episode of recurrent major depressive disorder F33.0 [facility] [id number] [place] [address] 92942- 2996 Jun, Generalized anxiety disorder F41.1 and Mild episode of recurrent major depressive disorder F33.0 [facility] [id number] [place] [address] 98774- 4374 Jun, Generalized anxiety disorder F41.1 and Mild episode of recurrent major depressive disorder F33.0 [place] [id number] [place] [address] 56008- 8155 Jun, [facility] [id number] [place] [address] 07726- 0193 Jun, Generalized anxiety disorder F41.1 and Mild episode of recurrent major depressive disorder F33.0 [facility] [address] [place] [address] 67572- 1388 May, Fibromyalgia M79.7 [facility] [address] [place] [address] 42302- 3809 May, Generalized anxiety disorder F41.1 and Mild episode of recurrent major depressive disorder F33.0 [facility] [address] [place] [address] 88352- 1805 May, Mixed hyperlipidemia E78.2 ; Arthritis M19.90 ; Reactive depression F32.9 and Hypothyroidism, unspecified type E03.9 [facility] [id number] [place] [address] 07727- 5979 May, Arthritis M19.90 ; Reactive depression F32.9 ; Mixed hyperlipidemia E78.2 and Hypothyroidism, unspecified type E03.9 [facility] [id number] [place] [address] 63542- 7418 Apr, Fibromyalgia M79.7 [facility] [address] 22414 2546 Apr, [facility] [address] [address] 2544 Apr, Fibromyalgia M79.7 [facility] [address] 19139- 3236 Mar, Fibromyalgia M79.7 [facility] [address] 12433- 2169 Mar, [facility] [id number] [place] [address] 45902 254 Mar, Fibromyalgia M79.7 [facility] [address] 44265 2546 Mar, [facility] [id number] [place] [address] 19296 254 Feb, Reflex sympathetic dystrophy G90.50 ; Right arm pain M79.601 and Fibromyalgia M79.7 [facility] [id number] [place] [address] 49622 2546 Feb, [facility] [id number] [place] [address] 72117 2546 07 Feb, 2017 Anxiety F41.9 [facility] [id number] [place] [address] 28629 2546 06 Feb, 2017 Fibromyalgia M79.7 [facility] [address] 62298 2546 Feb, [facility] [id number] [place] [address] 44367- 1024 Feb, [facility] [address] 36615- 4032 Jan, Temporal headache R51 [facility] [id number] [place] [address] 35308- 4883 Jan, Fibromyalgia M79.7 [facility] [address] 49783- 8447 Dec, Fibromyalgia M79.7 [facility] [id number] [place] [address] 91916- 7385 Nov, Peroneal tendonitis, unspecified laterality M76.70 and Plantar fasciitis, bilateral M72.2 [facility] [id number] [place] [address] 71111- 6600 Nov, Fibromyalgia M79.7 [facility] [id number] [place] [address] 97476- 4768 October, Fibromyalgia M79.7 [facility] [id number] [place] [address] 56954- 3268 October, Plantar fasciitis, bilateral M72.2 and Peroneal tendonitis, unspecified laterality M76.70 [facility] [id number] [place] [address] 90894- 5981 October, Fibromyalgia M79.7 [facility] [id number] [place] [address] 21608- 6484 Sep, Anxiety F41.9 [facility] [id number] [place] [address] 58907- 6681 Aug, Anxiety F41.9 and Adjustment disorder with anxiety F43.22 [facility] [id number] [place] [address] 45295- 4637 Aug, Pain of left foot M79.672 [facility] [address] [place] [address]- 9963 Aug, Pain of left foot M79.672 and Pain in right foot M79.671 [address] [address] 72578- 7249 Aug, Arthritis M19.90 ; Reactive depression F32.9 ; Fibromyalgia M79.7 ; Rosacea L71.9 ; Pain in right foot M79.671 and Pain of left foot M79.672 [address] [address] 61536- 2047 Aug, Anxiety F41.9 ; Adjustment disorder with anxiety F43.22 and Reactive depression F32.9 [place] [address] 93834- 3983 Aug, Right elbow pain M25.521 [place] [address] 26336- 4081 Aug, Plantar wart of right foot B07.0 and Actinic keratosis L57.0 [address] [facility] [address] 20538- 6176 Aug, Fibromyalgia M79.7 [place] [address] 38946- 5089 Jul, Arthritis M19.90 ; Hypothyroidism, unspecified type E03.9 ; Reactive depression F32.9 and Venous insufficiency I87.2 [address] [address] 50573- 4668 Jul, Gastroesophageal reflux disease, esophagitis presence not specified K21.9 [place] [address] 52185- 1398 Jul, Reflex sympathetic dystrophy G90.50 [place] [address] 58677- 4271 Jul, Anxiety F41.9 ; Adjustment disorder with anxiety F43.22 and Reactive depression F32.9 [facility] [id number] [place] [address] 57331- 2666 15 Jul, 2016 [facility] [address] 05234- 9474 03 Jul, 2016 Right elbow pain M25.521 [facility] [address] 92533- 4967 Jun, Fibromyalgia M79.7 [facility] [address] 46814- 8022 Jun, Anxiety F41.9 ; Adjustment disorder with anxiety F43.22 and Reactive depression F32.9 [place] [address] 41962- 1182 Jun, [facility] [address] 83732- 7555 Jun, Atypical chest pain R07.89 and Adjustment disorder with anxiety F43.22 [facility] [address] [id number] Jun, Chest pain, unspecified type R07.9 [facility] [address] 56885- 7598 Jun, Fibromyalgia M79.7 [facility] [address] 16358- 3078 May, Anxiety F41.9 [facility] [address] 19568- 4238 May, [facility] [address] 26951- 0842 May, Right elbow pain M25.521 [facility] [address] 80438- 8168 Apr, Reflex sympathetic dystrophy G90.50 and Encounter for immunization Z23 [facility] [address] 57261- 8030 Apr, [facility] [address], [place] [address]- 9859 Mar, [facility] [id number] [place] [address] 59685- 2620 Feb, [facility] [address], [place] [address]- 3119 Feb, [facility] [id number] [place] [address] 24095- 8789 Jan, [facility] [address] [place] [address] 67555- 4561 Jan, Right elbow pain M25.521 and Right wrist pain M25.531 [facility] [id number], [place] [address]- 6262 Jan, [facility] [id number] [place] [address] 75100- 1239 Dec, Seborrheic keratoses L82.1 [facility] [address], [place] [address]- 2048 Dec, [facility] [address] [place] [address] 41042- 9531 Dec, [facility] [address], [place] [address]- 2226 Dec, [facility] [address] [place] [address] 46298- 0167 Dec, Fibromyalgia M79.7 and Hypothyroidism, unspecified type E03.9 [facility] [address], [place] [address]- 7165 Dec, Seborrheic keratoses L82.1 [facility] [address], [place] [address]- 5923 Dec, [facility] [id number] [place] [address]- 9648 Dec, [facility] [address] [facility] [id number] [address]- 2094 Nov, Sebaceous cyst L72.3 [facility] [address] [facility] [id number] [address]- 1351 October, Breast cancer screening Z12.39 [facility] [address] [facility] [id number] [address]- 4710 October, Fibromyalgia M79.7 ; Hypothyroidism, unspecified type E03.9 and Reflex sympathetic dystrophy G90.50 [facility] [address] [facility] [id number] [address]- 8863 October, Reflex sympathetic dystrophy G90.50 ; Fibromyalgia M79.7 and Hypothyroidism, unspecified type E03.9 IMMUNIZATIONS No Known Immunizations SOCIAL HISTORY Never Assessed REASON FOR VISIT BH f/u, Anxiety and depresson. PLAN OF CARE Activity Details Follow Up 1 Week Reason:depression and anxiety VITAL SIGNS MEDICATIONS Unknown Medications RESULTS No Results PROCEDURES Procedure Date Ordered Result Body Site [facility] VISIT MENTAL HEALTH ESTAB PT Jul 05, 2017 Psychotherapy, patient &/family, 45 minutes, established patient Jul 05, 2017 INSTRUCTIONS MEDICATIONS ADMINISTERED No Known Medications [...]
--- OUTSIDE RECORDS SUMMARY | 2018-03-07 18:05 | XMS REPORT ---
Author Author BAMBI POLLY [facility] Address [address] [place] [address] Care Team Providers Care Log Tumbler Name Role Phone MANAVKAYA VARMAA Unavailable PROBLEMS Type Condition ICD9-CM Code ATW56-LO Code Onset Dates Condition Status SNOMED Code Problem Arthritis M19.90 Active 3828487 Problem Gastroesophageal reflux disease, esophagitis presence not specified K21.9 Active 313735280 Problem Reactive depression F32.9 Active 71613870 Problem Abnormal laboratory test R89.9 Active 449539234 Problem Mild episode of recurrent major depressive disorder F33.0 Active 861705274 Problem Rosacea L71.9 Active 371613065 Problem Plantar wart of right foot B07.0 Active 25066399 Problem Generalized anxiety disorder F41.1 Active 67432795 Problem Mixed hyperlipidemia E78.2 Active 926295482 Problem Fibromyalgia M79.7 Active 088467441 Problem Right elbow pain M25.521 Active 93051543 Problem Hypothyroidism, unspecified type E03.9 Active 97899439 Problem Right wrist pain M25.531 Active 34166685 Problem Reflex sympathetic dystrophy G90.50 Active 05442896 Problem Venous insufficiency I87.2 Active 54895083 ALLERGIES Substance Reaction Event Type Date Status Robaxin Unknown Drug Allergy May, Active Penicillin V Potassium Unknown Drug Allergy May, Active Demerol Unknown Drug Allergy May, Active Codeine Sulfate Unknown Drug Allergy May, Active ENCOUNTERS Encounter Location Date Diagnosis [facility] [place] [address] [facility] [id number] [address] Dec, [facility] [place] [address] [id number] [address] Nov, [facility] [place] [address] [facility] [id number] [address] Nov, [facility] [place] [id number] [place] [address] 83025- 5376 Nov, [facility] [place] [address] [address]- [address] October, Generalized anxiety disorder F41.1 and Mild episode of recurrent major depressive disorder F33.0 [facility] [place] [id number] [place] [address] 15956- 5059 October, Fibromyalgia M79.7 [facility] [place] [id number] [place] [address] 58772- 2598 October, [facility] [place] [id number] [place] [address] 13620- 0266 October, Generalized anxiety disorder F41.1 and Mild episode of recurrent major depressive disorder F33.0 [place] [id number] [place] [address] 88059- 4064 October, [facility] [place] [address] [address]- [address]261 Sep, Gastroesophageal reflux disease, esophagitis presence not specified K21.9 and Abnormal laboratory test R89.9 [place] [id number] [place] [address] 46722- 9720 Sep, Fibromyalgia M79.7 [facility] [place] [id number] [place] [address] 34857- 9616 Sep, Generalized anxiety disorder F41.1 and Mild episode of recurrent major depressive disorder F33.0 [facility] [place] [id number] [place] [address] 18371- 2844 Sep, Epigastric pain R10.13 [place] [id number] [place] [address] 39801- 9548 10 Sep, 2017 Mild episode of recurrent major depressive disorder F33.0 and Generalized anxiety disorder F41.1 [facility] [place] [id number] [place] [address] 22452- 5292 Sep, Abnormal laboratory test R89.9 [facility] [place] [id number] [place] [address] 35864- 3652 02 Sep, 2017 Generalized anxiety disorder F41.1 and Mild episode of recurrent major depressive disorder F33.0 [facility] [place] [id number] [place] [address] 33987- 4489 29 Aug, 2017 Epigastric pain R10.13 and Encounter for therapeutic drug level monitoring Z51.81 [facility] [id number] [place] [address] 77988 -8105 28 Aug, 2017 Epigastric pain R10.13 and Gastro-esophageal reflux disease without esophagitis K21.9 [place] [address] 18266- 0649 22 Aug, 2017 [place] [address] 25084- 3690 Aug, Epigastric pain R10.13 [place] [address] 97370- 5013 Aug, Fibromyalgia M79.7 [place] [address] 16136- 5243 14 Aug, 2017 [place] [address] 69385- 1260 14 Aug, 2017 Generalized anxiety disorder F41.1 and Mild episode of recurrent major depressive disorder F33.0 [place] [id number] [place] [address] 68871- 1334 08 Aug, 2017 Epigastric pain R10.13 ; Reflex sympathetic dystrophy G90.50 and Arthritis M19.90 [place] [id number] [place] [address] 74981- 2882 Jul, Generalized anxiety disorder F41.1 and Mild episode of recurrent major depressive disorder F33.0 [facility] [place] [id number] [place] [address] 65321- 9259 Jul, BMI 40.0-44.9, adult Z68.41 ; Mild episode of recurrent major depressive disorder F33.0 and Generalized anxiety disorder F41.1 [facility] [place] [address] [place] [address] 44553 2546 Jul, Fibromyalgia M79.7 [facility] [place] [id number] [place] [address] 47237 2546 Jun, Mild episode of recurrent major depressive disorder F33.0 and Generalized anxiety disorder F41.1 [facility] [place] [id number] [place] [address] 97011 2546 Jun, Fibromyalgia M79.7 [facility] [place] [id number] [place] [address] 42981 2546 Jun, Generalized anxiety disorder F41.1 and Mild episode of recurrent major depressive disorder F33.0 [facility] [place] [id number] [place] [address] 85551 2546 Jun, Generalized anxiety disorder F41.1 and Mild episode of recurrent major depressive disorder F33.0 [facility] [place] [id number] [place] [address] 25069 2546 Jun, Generalized anxiety disorder F41.1 and Mild episode of recurrent major depressive disorder F33.0 [facility] [place] [address] [place] [address] 37921 2546 Jun, [facility] [place] [address] [place] [address] 93613 2546 Jun, Generalized anxiety disorder F41.1 and Mild episode of recurrent major depressive disorder F33.0 [facility] [place] [address] [place] [address] 73834 2546 May, Fibromyalgia M79.7 [facility] [place] [id number] [place] [address] 36972 2546 May, Generalized anxiety disorder F41.1 and Mild episode of recurrent major depressive disorder F33.0 [facility] [place] [address] [place] [address] 78089 2546 May, Mixed hyperlipidemia E78.2 ; Arthritis M19.90 ; Reactive depression F32.9 and Hypothyroidism, unspecified type E03.9 [facility] [place] [address] 53342- 3365 May, Arthritis M19.90 ; Reactive depression F32.9 ; Mixed hyperlipidemia E78.2 and Hypothyroidism, unspecified type E03.9 [facility] [place] [address] 32606- 6400 Apr, Fibromyalgia M79.7 [facility] [place] [address] 36271- 3118 Apr, [facility] [place] [address] 77388- 8683 Apr, Fibromyalgia M79.7 [facility] [place] [address] 76364- 7246 Mar, Fibromyalgia M79.7 [facility] [place] [address] 71792- 4062 Mar, [facility] [place] [address] 89272- 7827 Mar, Fibromyalgia M79.7 [facility] [place] [id number] [place] [address] 37972- 1755 Mar, [facility] [place] [id number] [place] [address] 10072- 8100 Feb, Reflex sympathetic dystrophy G90.50 ; Right arm pain M79.601 and Fibromyalgia M79.7 [facility] [place] [id number] [place] [address] 30092- 9876 Feb, [facility] [place] [address] 29649- 8149 Feb, Anxiety F41.9 [facility] [place] [id number] [place] [address] 98967- 4377 Feb, Fibromyalgia M79.7 [facility] [place] [id number] [place] [address] 80543- 9742 Feb, [facility] [place] [address] 35481- 7685 Feb, [facility] [place] [id number] [place] [address] 89364- 4624 Jan, Temporal headache R51 [place] [address] 91845- 0996 Jan, Fibromyalgia M79.7 [facility] [place] [id number] [place] [address] 90996- 5879 Dec, Fibromyalgia M79.7 [place] [address] 14249- 6407 Nov, Peroneal tendonitis, unspecified laterality M76.70 and Plantar fasciitis, bilateral M72.2 [place] [address] 59572- 0373 Nov, Fibromyalgia M79.7 [facility] [place] [id number] [place] [address] 84047- 1052 October, Fibromyalgia M79.7 [facility] [place] [id number] [place] [address] 21288- 2116 October, Plantar fasciitis, bilateral M72.2 and Peroneal tendonitis, unspecified laterality M76.70 [place] [id number] [place] [address] 44074- 1689 October, Fibromyalgia M79.7 [facility] [place] [id number] [place] [address] 70360- 1965 Sep, Anxiety F41.9 [place] [address] 69210- 9928 Aug, Anxiety F41.9 and Adjustment disorder with anxiety F43.22 [place] [id number] [place] [address] 72766- 9771 Aug, Pain of left foot M79.672 [facility] [place] [address] 44620- 1216 Aug, Pain of left foot M79.672 and Pain in right foot M79.671 [facility] [place] [address] 29255- 4446 Aug, Arthritis M19.90 ; Reactive depression F32.9 ; Fibromyalgia M79.7 ; Rosacea L71.9 ; Pain in right foot M79.671 and Pain of left foot M79.672 [place] [address] 11413- 6501 Aug, Anxiety F41.9 ; Adjustment disorder with anxiety F43.22 and Reactive depression F32.9 [place] [address] 88316- 5833 Aug, Right elbow pain M25.521 [place] [address] 43730- 9483 Aug, Plantar wart of right foot B07.0 and Actinic keratosis L57.0 [place] [address] 36520- 1084 Aug, Fibromyalgia M79.7 [place] [address] 40701- 3907 Jul, Arthritis M19.90 ; Hypothyroidism, unspecified type E03.9 ; Reactive depression F32.9 and Venous insufficiency I87.2 [place] [address] 06949- 9631 Jul, Gastroesophageal reflux disease, esophagitis presence not specified K21.9 [place] [address] 50266- 1067 Jul, Reflex sympathetic dystrophy G90.50 [place] [address] 69104- 1141 Jul, Anxiety F41.9 ; Adjustment disorder with anxiety F43.22 and Reactive depression F32.9 [facility] [place] [address] 78996- 8546 15 Jul, 2016 [facility] [place] [address] 23022- 4548 03 Jul, 2016 Right elbow pain M25.521 [facility] [place] [address] 32057- 8834 Jun, Fibromyalgia M79.7 [facility] [place] [address] 63553- 6742 Jun, Anxiety F41.9 ; Adjustment disorder with anxiety F43.22 and Reactive depression F32.9 [place] [address] 63821- 2859 Jun, [facility] [place] [address] 38952- 9980 Jun, Atypical chest pain R07.89 and Adjustment disorder with anxiety F43.22 [facility] [address] [id number] Jun, Chest pain, unspecified type R07.9 [facility] [place] [address] 74805- 9805 Jun, Fibromyalgia M79.7 [facility] [place] [address] 70218- 3065 May, Anxiety F41.9 [facility] [place] [address] 42860- 1643 May, [facility] [place] [address] 51430- 3407 May, Right elbow pain M25.521 [facility] [place] [address] 22537- 8651 Apr, Reflex sympathetic dystrophy G90.50 and Encounter for immunization Z23 [facility] [place] [address] [address]- 6157 Apr, [facility] [place] [id number] [place] [address] 49524- 5031 Mar, [facility] [place] [id number] [place] [address] 39438- 7575 Feb, [facility] [place] [id number] [place] [address] 19832- 6264 Feb, [facility] [place] [id number] [place] [address] 76644- 0510 Jan, [facility] [place] [id number] [place] [address] 86122- 2083 Jan, Right elbow pain M25.521 and Right wrist pain M25.531 [facility] [place] [id number] [place] [address] 12506- 7698 Jan, [facility] [place] [id number] [place] [address] 66488- 4731 Dec, Seborrheic keratoses L82.1 [facility] [place] [id number] [place] [address] 16549- 9921 Dec, [facility] [place] [address] [address]- 4887 Dec, [facility] [place] [id number] [place] [address] 24410- 3108 Dec, [facility] [place] [address] [place] [address] 70415- 8610 Dec, Fibromyalgia M79.7 and Hypothyroidism, unspecified type E03.9 [facility] [place] [address] [address]- 6928 Dec, Seborrheic keratoses L82.1 [facility] [place] [id number] [place] [address] 44074- 3602 Dec, [facility] [place] [address] [facility] [id number] [address]- 7434 Dec, [place] [id number] [address]- 9976 Nov, Sebaceous cyst L72.3 [place] [id number] [address]- 0036 October, Breast cancer screening Z12.39 [place] [address] [address]- 3545 October, Fibromyalgia M79.7 ; Hypothyroidism, unspecified type E03.9 and Reflex sympathetic dystrophy G90.50 [place] [address] [address]- 2457 October, Reflex sympathetic dystrophy G90.50 ; Fibromyalgia M79.7 and Hypothyroidism, unspecified type E03.9 IMMUNIZATIONS No Known Immunizations SOCIAL HISTORY Never Assessed REASON FOR VISIT intake PLAN OF CARE Activity Details Follow Up 4 Weeks Reason: VITAL SIGNS Height 62 in 2017-06-08 Weight 215.3 lbs 2017-06-08 Heart Rate 76 bpm 2017-06-08 Respiratory Rate 2017-06-08 BMI 39.37 kg/m2 2017-06-08 Blood pressure systolic 120 mmHg 2017-06-08 Blood pressure diastolic 78 mmHg 2017-06-08 MEDICATIONS Medication Instructions Dosage Frequency Start Date End Date Duration Status HydrOXYzine HCl 10 MG Orally three times a day as needed for anxiety and sleep 1 tablet May, 30 days Active Mobic 7.5 MG Orally Once a day 1 tablet 24h Jul, 30 day(s) Not -Taking Abilify 2 MG Orally Once a day 1 tablet 24h May, 30 day(s) Active Neurontin 300 MG Orally 3 times a day 1 capsule 8h Active Orphenadrine Citrate ER 100 MG Orally 2 times a day 1 tablet 12h 30 days Active Topiramate 200MG Orally twice a day 1 tablet 12h 30 Active Prozac 20 mg Orally Once a day 3 capsule 24h Active Levothyroxine Sodium 75MCG TAKE ONE TABLET BY MOUTH ONCE DAILY 90 Active Hydrocodone-Acetaminophen 7.5-325 MG Orally 3 times a day 1 tablet 8h Apr, 28 days Active Pantoprazole Sodium 40MG Orally Once a day 1 tablet 24h 90 Active Excedrin Migraine 250-250-65 MG Orally every 6 hrs 2 tablets as needed 6h Active Fiorinal 50-325-40 MG Orally every 4 hrs 1 capsule as needed 4h Jan, Active RESULTS No Results PROCEDURES Procedure Date Ordered Result Body Site [facility] VISIT ESTABLISHED PATIENT Jun 08, 2017 INSTRUCTIONS MEDICATIONS ADMINISTERED No Known Medications [...]
--- OUTSIDE RECORDS SUMMARY | 2018-03-07 18:05 | XMS REPORT ---
Author Author JOE BAI [facility] Address [address] [place] [address] Care Team Providers Care Obedience Trainer Name Role Phone JOE BAI Unavailable PROBLEMS Type Condition ICD9-CM Code XDD91-IS Code Onset Dates Condition Status SNOMED Code Problem Arthritis M19.90 Active 1911343 Problem Gastroesophageal reflux disease, esophagitis presence not specified K21.9 Active 578718694 Problem Reactive depression F32.9 Active 05033280 Problem Abnormal laboratory test R89.9 Active 064999851 Problem Mild episode of recurrent major depressive disorder F33.0 Active 084547286 Problem Rosacea L71.9 Active 955090173 Problem Plantar wart of right foot B07.0 Active 62702651 Problem Generalized anxiety disorder F41.1 Active 05901714 Problem Mixed hyperlipidemia E78.2 Active 587284848 Problem Fibromyalgia M79.7 Active 916372027 Problem Right elbow pain M25.521 Active 04658368 Problem Hypothyroidism, unspecified type E03.9 Active 36757385 Problem Right wrist pain M25.531 Active 16775592 Problem Reflex sympathetic dystrophy G90.50 Active 33216312 Problem Venous insufficiency I87.2 Active 37401536 ALLERGIES No Information ENCOUNTERS Encounter Location Date Diagnosis [facility] [id number] [address] Dec, [facility] [address] [address] Nov, [facility] [id number] [place] [address] 61294- 3443 October, [facility] [address] [address] October, Fibromyalgia M79.7 [facility] [id number] [place] [address] 07431- 7598 October, [facility] [id number] [place] [address] 22198- 3495 October, Generalized anxiety disorder F41.1 and Mild episode of recurrent major depressive disorder F33.0 [facility] [id number] [place] [address] 22905- 1512 October, [facility] [id number] [place] [address] 98871- 1409 Sep, Gastroesophageal reflux disease, esophagitis presence not specified K21.9 and Abnormal laboratory test R89.9 [place] [id number] [place] [address] 72482- 4285 Sep, Fibromyalgia M79.7 [facility] [id number] [place] [address] 85505- 6017 Sep, Generalized anxiety disorder F41.1 and Mild episode of recurrent major depressive disorder F33.0 [facility] [id number] [place] [address] 37056- 1985 Sep, Epigastric pain R10.13 [place] [id number] [place] [address] 78475- 6941 Sep, Mild episode of recurrent major depressive disorder F33.0 and Generalized anxiety disorder F41.1 [place] [id number] [place] [address] 04903- 5474 Sep, Abnormal laboratory test R89.9 [facility] [id number] [place] [address] 78565- 8161 Sep, Generalized anxiety disorder F41.1 and Mild episode of recurrent major depressive disorder F33.0 [facility] [id number] [place] [address] 15984- 4702 Aug, Epigastric pain R10.13 and Encounter for therapeutic drug level monitoring Z51.81 [facility] [id number] [place] [address] 56345 -3053 Aug, Epigastric pain R10.13 and Gastro-esophageal reflux disease without esophagitis K21.9 [place] [id number] [place] [address] 92647- 8984 Aug, [facility] [id number] [place] [address] 83057- 7018 Aug, Epigastric pain R10.13 [place] [id number] [place] [address] 02812- 8180 Aug, Fibromyalgia M79.7 [place] [id number] [place] [address] 88102- 4643 Aug, [place] [id number] [place] [address] 06152- 2712 Aug, Generalized anxiety disorder F41.1 and Mild episode of recurrent major depressive disorder F33.0 [place] [address] [address]- 0533 Aug, Epigastric pain R10.13 ; Reflex sympathetic dystrophy G90.50 and Arthritis M19.90 [place] [id number] [place] [address] 29981- 6409 Jul, Generalized anxiety disorder F41.1 and Mild episode of recurrent major depressive disorder F33.0 [place] [id number] [place] [address] 16467- 1845 Jul, BMI 40.0-44.9, adult Z68.41 ; Mild episode of recurrent major depressive disorder F33.0 and Generalized anxiety disorder F41.1 [place] [id number] [place] [address] 23326- 7517 Jul, Fibromyalgia M79.7 [facility] [id number] [place] [address] 95246- 1801 Jun, Mild episode of recurrent major depressive disorder F33.0 and Generalized anxiety disorder F41.1 [place] [id number] [place] [address] 76187- 3380 Jun, Fibromyalgia M79.7 [facility] [address] [address] Jun, Generalized anxiety disorder F41.1 and Mild episode of recurrent major depressive disorder F33.0 [facility] [address] [address] 9325 Jun, Generalized anxiety disorder F41.1 and Mild episode of recurrent major depressive disorder F33.0 [facility] [id number] [place] [address] 23294- 8600 Jun, Generalized anxiety disorder F41.1 and Mild episode of recurrent major depressive disorder F33.0 [facility] [id number] [place] [address] 73438- 4163 Jun, [facility] [id number] [place] [address] 94358- 1712 Jun, Generalized anxiety disorder F41.1 and Mild episode of recurrent major depressive disorder F33.0 [facility] [address] [address]84 May, Fibromyalgia M79.7 [facility] [id number] [place] [address] 33873- 9601 May, Generalized anxiety disorder F41.1 and Mild episode of recurrent major depressive disorder F33.0 [facility] [id number] [place] [address] 12245- 3080 May, Mixed hyperlipidemia E78.2 ; Arthritis M19.90 ; Reactive depression F32.9 and Hypothyroidism, unspecified type E03.9 [facility] [id number] [place] [address] 98966- 6827 May, Arthritis M19.90 ; Reactive depression F32.9 ; Mixed hyperlipidemia E78.2 and Hypothyroidism, unspecified type E03.9 [facility] [address] [address] 27[address] Apr, Fibromyalgia M79.7 [facility] [id number] [place] [address] 40870- 6479 Apr, [facility] [address] 19323- 7875 Apr, Fibromyalgia M79.7 [facility] [id number] [place] [address] 91938 2546 Mar, Fibromyalgia M79.7 [facility] [address] 58298 2546 Mar, [facility] [id number] [place] [address] 35859 2542 Mar, Fibromyalgia M79.7 [facility] [id number] [place] [address] 15662- 6395 Mar, [facility] [id number] [place] [address] 13050- 8781 Feb, Reflex sympathetic dystrophy G90.50 ; Right arm pain M79.601 and Fibromyalgia M79.7 [facility] [id number] [place] [address] 45585- 2557 Feb, [facility] [id number] [place] [address] 75069- 7726 Feb, Anxiety F41.9 [facility] [id number] [place] [address] 15754- 2541 Feb, Fibromyalgia M79.7 [facility] [id number] [place] [address] 92715 254 Feb, [facility] [id number] [place] [address] 64966- 2546 Feb, [facility] [id number] [place] [address] 65849- 7298 Jan, Temporal headache R51 [facility] [id number] [place] [address] 46249- 2999 Jan, Fibromyalgia M79.7 [place] [id number] [place] [address] 99743- 4207 Dec, Fibromyalgia M79.7 [place] [address] 76343- 3402 Nov, Peroneal tendonitis, unspecified laterality M76.70 and Plantar fasciitis, bilateral M72.2 [place] [address] 42345- 0056 Nov, Fibromyalgia M79.7 [place] [address] 29467- 4377 October, Fibromyalgia M79.7 [place] [address] 39028- 2787 October, Plantar fasciitis, bilateral M72.2 and Peroneal tendonitis, unspecified laterality M76.70 [place] [address] 10672- 8662 October, Fibromyalgia M79.7 [place] [id number] [place] [address] 94128- 5372 Sep, Anxiety F41.9 [place] [address] 76939- 4807 Aug, Anxiety F41.9 and Adjustment disorder with anxiety F43.22 [place] [id number] [place] [address] 17884- 6198 Aug, Pain of left foot M79.672 [place] [id number] [place] [address] 50615- 7160 Aug, Pain of left foot M79.672 and Pain in right foot M79.671 [place] [id number] [place] [address] 45666- 4970 Aug, Arthritis M19.90 ; Reactive depression F32.9 ; Fibromyalgia M79.7 ; Rosacea L71.9 ; Pain in right foot M79.671 and Pain of left foot M79.672 [address] [address] 19326- 5276 17 Aug, 2016 Anxiety F41.9 ; Adjustment disorder with anxiety F43.22 and Reactive depression F32.9 [place] [address] 40842- 8428 14 Aug, 2016 Right elbow pain M25.521 [place] [address] 88007- 9577 07 Aug, 2016 Plantar wart of right foot B07.0 and Actinic keratosis L57.0 [place] [address] 30700- 7709 Aug, Fibromyalgia M79.7 [place] [address] 10802- 9977 Jul, Arthritis M19.90 ; Hypothyroidism, unspecified type E03.9 ; Reactive depression F32.9 and Venous insufficiency I87.2 [place] [address] 72432- 1155 Jul, Gastroesophageal reflux disease, esophagitis presence not specified K21.9 [place] [address] 71020- 8586 Jul, Reflex sympathetic dystrophy G90.50 [place] [address] 63476- 1762 17 Jul, 2016 Anxiety F41.9 ; Adjustment disorder with anxiety F43.22 and Reactive depression F32.9 [place] [address] 27350- 0243 Jul, [place] [address] 62159- 0596 03 Jul, 2016 Right elbow pain M25.521 [place] [address] 83097- 5436 Jun, Fibromyalgia M79.7 [facility] [address] 14437- 0286 Jun, Anxiety F41.9 ; Adjustment disorder with anxiety F43.22 and Reactive depression F32.9 [facility] [address] 99573- 8952 Jun, [facility] [address] 03476- 5614 Jun, Atypical chest pain R07.89 and Adjustment disorder with anxiety F43.22 [facility] [address] [id number] Jun, Chest pain, unspecified type R07.9 [facility] [address] 23289- 4852 Jun, Fibromyalgia M79.7 [facility] [address] 07632- 0339 May, Anxiety F41.9 [facility] [address] 76540- 7444 May, [facility] [address] 53826- 2179 May, Right elbow pain M25.521 [place] [address] 83223- 0310 Apr, Reflex sympathetic dystrophy G90.50 and Encounter for immunization Z23 [facility] [address] 53774- 6448 Apr, [facility] [address] 43208- 4852 14 Mar, 2016 [facility] [address] 13456- 5951 Feb, [facility] [address] 49413- 2889 16 Feb, 2016 [facility] [address] [address]- 4605 Jan, [facility] [id number] [place] [address] 91581- 7128 Jan, Right elbow pain M25.521 and Right wrist pain M25.531 [facility] [id number] [place] [address] 17887- 3208 Jan, [facility] [id number] [place] [address] 23608 2540 Dec, Seborrheic keratoses L82.1 [facility] [id number] [place] [address] 19603- 9707 Dec, [facility] [id number] [place] [address] 59927- 5499 Dec, [facility] [id number] [place] [address] 30339- 7743 Dec, [facility] [id number] [place] [address] 17573- 8937 Dec, Fibromyalgia M79.7 and Hypothyroidism, unspecified type E03.9 [facility] [id number] [place] [address] 00261- 1791 Dec, Seborrheic keratoses L82.1 [facility] [id number] [place] [address] 28457- 0675 Dec, [facility] [id number] [place] [address] 52379- 2546 Dec, [facility] [id number] [place] [address] 51285- 2194 Nov, Sebaceous cyst L72.3 [facility] [id number] [place] [address] 32262- 1849 October, Breast cancer screening Z12.39 [facility] [id number] [place] [address] 79860- 9826 October, Fibromyalgia M79.7 ; Hypothyroidism, unspecified type E03.9 and Reflex sympathetic dystrophy G90.50 [facility] [address] [facility] [id number] [address]- 8363 October, Reflex sympathetic dystrophy G90.50 ; Fibromyalgia [...]
--- OUTSIDE RECORDS SUMMARY | 2018-03-07 18:06 | XMS REPORT ---
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1 Active 89417157 Problem Mixed hyperlipidemia E78.2 Active 569758145 Problem Fibromyalgia M79.7 Active 946252784 Problem Right elbow pain M25.521 Active 32954747 Problem Hypothyroidism, unspecified type E03.9 Active 44054452 Problem Right wrist pain M25.531 Active 91212397 Problem Reflex sympathetic dystrophy G90.50 Active 93997765 Problem Venous insufficiency I87.2 Active 85052503 ALLERGIES No Information ENCOUNTERS Encounter Location Date Diagnosis [facility] [id number], [place] [address] Dec, [facility] [address], [place] [address] Dec, [facility] [id number] [place] [address] 19966- 5179 Nov, [facility] [address], [place] [address] 15 Nov, 2017 [facility] [id number] [place] [address] 27948- 8053 Nov, [facility] [id number] [place] [address] 32007- 0551 Nov, Generalized anxiety disorder F41.1 and Mild episode of recurrent major depressive disorder F33.0 [facility] [id number] [place] [address] 51427- 9966 Nov, [facility] [id number] [place] [address] 19717- 4050 October, Generalized anxiety disorder F41.1 and Mild episode of recurrent major depressive disorder F33.0 [facility] [id number] [place] [address] 25364- 3380 October, Fibromyalgia M79.7 [facility] [id number] [place] [address] 37358- 3567 October, [facility] [id number] [place] [address] 79577- 4867 October, Generalized anxiety disorder F41.1 and Mild episode of recurrent major depressive disorder F33.0 [facility] [id number] [place] [address] 10056- 6120 October, [facility] [id number] [place] [address] 06472- 4438 Sep, Gastroesophageal reflux disease, esophagitis presence not specified K21.9 and Abnormal laboratory test R89.9 [facility] [id number] [place] [address] 91626- 1763 Sep, Fibromyalgia M79.7 [facility] [id number] [place] [address] 18726- 9496 Sep, Generalized anxiety disorder F41.1 and Mild episode of recurrent major depressive disorder F33.0 [facility] [id number] [place] [address] 53568- 2484 Sep, Epigastric pain R10.13 [facility] [id number] [place] [address] 56118- 9209 Sep, Mild episode of recurrent major depressive disorder F33.0 and Generalized anxiety disorder F41.1 [facility] [address] [address]40- 7216 Sep, Abnormal laboratory test R89.9 [place] [address] 40773- 5622 Sep, Generalized anxiety disorder F41.1 and Mild episode of recurrent major depressive disorder F33.0 [facility] [address] 17067- 8874 Aug, Epigastric pain R10.13 and Encounter for therapeutic drug level monitoring Z51.81 [facility] [address] [address] Aug, Epigastric pain R10.13 and Gastro-esophageal reflux disease without esophagitis K21.9 [facility] [place] [address] 94114- 2147 Aug, [facility] [address] 28920- 3219 Aug, Epigastric pain R10.13 [facility] [place] [address] 33658- 0470 Aug, Fibromyalgia M79.7 [facility] [address] 75455- 2095 14 Aug, 2017 [facility] [address] 30127- 2485 Aug, Generalized anxiety disorder F41.1 and Mild episode of recurrent major depressive disorder F33.0 [facility] [place] [address] 02307- 0870 08 Aug, 2017 Epigastric pain R10.13 ; Reflex sympathetic dystrophy G90.50 and Arthritis M19.90 [facility] [address] 55124- 3594 Jul, Generalized anxiety disorder F41.1 and Mild episode of recurrent major depressive disorder F33.0 [facility] [address], [place] [address] Jul, BMI 40.0-44.9, adult Z68.41 ; Mild episode of recurrent major depressive disorder F33.0 and Generalized anxiety disorder F41.1 [facility] [id number] [place] [address] 85617- 2386 Jul, Fibromyalgia M79.7 [facility] [id number] [place] [address] 15107- 4373 Jun, Mild episode of recurrent major depressive disorder F33.0 and Generalized anxiety disorder F41.1 [facility] [id number] [place] [address] 18420- 0355 Jun, Fibromyalgia M79.7 [facility] [id number] [place] [address] 11011- 0741 Jun, Generalized anxiety disorder F41.1 and Mild episode of recurrent major depressive disorder F33.0 [facility] [address] [place] [address] 55732- 0276 Jun, Generalized anxiety disorder F41.1 and Mild episode of recurrent major depressive disorder F33.0 [facility] [address] [place] [address] 08696- 6308 Jun, Generalized anxiety disorder F41.1 and Mild episode of recurrent major depressive disorder F33.0 [facility] [address], [place] [address] Jun, [facility] [id number], [place] [address] Jun, Generalized anxiety disorder F41.1 and Mild episode of recurrent major depressive disorder F33.0 [facility] [id number], [place] [address] 4041 May, Fibromyalgia M79.7 [facility] [id number] [place] [address] 23468- 2828 May, Generalized anxiety disorder F41.1 and Mild episode of recurrent major depressive disorder F33.0 [facility] [address] 54785- 2402 May, Mixed hyperlipidemia E78.2 ; Arthritis M19.90 ; Reactive depression F32.9 and Hypothyroidism, unspecified type E03.9 [facility] [address] 49991- 0356 May, Arthritis M19.90 ; Reactive depression F32.9 ; Mixed hyperlipidemia E78.2 and Hypothyroidism, unspecified type E03.9 [place] [address] 83316- 2400 Apr, Fibromyalgia M79.7 [facility] [address] 16214- 6408 Apr, [facility] [address] 88257- 0798 Apr, Fibromyalgia M79.7 [facility] [id number] [place] [address] 53473- 1767 Mar, Fibromyalgia M79.7 [facility] [address] 19180- 7218 Mar, [facility] [id number] [place] [address] 80123- 4519 Mar, Fibromyalgia M79.7 [facility] [address] 06634- 1613 Mar, [facility] [address] 12573- 0739 Feb, Reflex sympathetic dystrophy G90.50 ; Right arm pain M79.601 and Fibromyalgia M79.7 [facility] [id number] [place] [address] 45731- 3760 Feb, [facility] [address] 86663- 6434 07 Feb, 2017 Anxiety F41.9 [facility] [id number] [place] [address] 81380- 3417 06 Feb, 2017 Fibromyalgia M79.7 [facility] [id number] [place] [address] 66668- 8956 Feb, [facility] [id number] [place] [address] 47812- 3309 Feb, [facility] [id number] [place] [address] 14087- 9790 Jan, Temporal headache R51 [facility] [address] 13753- 8703 Jan, Fibromyalgia M79.7 [facility] [id number] [place] [address] 52793- 4646 Dec, Fibromyalgia M79.7 [facility] [id number] [place] [address] 92317- 7336 Nov, Peroneal tendonitis, unspecified laterality M76.70 and Plantar fasciitis, bilateral M72.2 [facility] [id number] [place] [address] 25848- 4632 Nov, Fibromyalgia M79.7 [facility] [id number] [place] [address] 73994- 2346 October, Fibromyalgia M79.7 [facility] [id number] [place] [address] 14887- 5283 October, Plantar fasciitis, bilateral M72.2 and Peroneal tendonitis, unspecified laterality M76.70 [facility] [id number] [place] [address] 75676- 3565 October, Fibromyalgia M79.7 [facility] [id number] [place] [address] 98874- 6974 Sep, Anxiety F41.9 [facility] [address] [place] [address]- 9273 Aug, Anxiety F41.9 and Adjustment disorder with anxiety F43.22 [facility] [place] [address] 38957- 1752 Aug, Pain of left foot M79.672 [facility] [id number] [place] [address] 09342- 5342 Aug, Pain of left foot M79.672 and Pain in right foot M79.671 [place] [address] 58060- 4255 Aug, Arthritis M19.90 ; Reactive depression F32.9 ; Fibromyalgia M79.7 ; Rosacea L71.9 ; Pain in right foot M79.671 and Pain of left foot M79.672 [facility] [id number] [place] [address] 95088- 5131 Aug, Anxiety F41.9 ; Adjustment disorder with anxiety F43.22 and Reactive depression F32.9 [facility] [id number] [place] [address] 01946- 9317 Aug, Right elbow pain M25.521 [facility] [id number] [place] [address] 43004- 2223 Aug, Plantar wart of right foot B07.0 and Actinic keratosis L57.0 [facility] [place] [id number] [place] [address] 04652- 6506 Aug, Fibromyalgia M79.7 [facility] [id number] [place] [address] 70784- 2085 Jul, Arthritis M19.90 ; Hypothyroidism, unspecified type E03.9 ; Reactive depression F32.9 and Venous insufficiency I87.2 [facility] [id number] [place] [address] 23959- 7774 Jul, Gastroesophageal reflux disease, esophagitis presence not specified K21.9 [facility] [address] 51484- 6170 17 Jul, 2016 Reflex sympathetic dystrophy G90.50 [place] [address] 90622- 1069 17 Jul, 2016 Anxiety F41.9 ; Adjustment disorder with anxiety F43.22 and Reactive depression F32.9 [place] [address] 80529- 2681 Jul, [place] [address] 51341- 8719 Jul, Right elbow pain M25.521 [place] [address] 59429- 4625 Jun, Fibromyalgia M79.7 [place] [address] 62917- 3815 Jun, Anxiety F41.9 ; Adjustment disorder with anxiety F43.22 and Reactive depression F32.9 [place] [address] 14191- 2425 Jun, [place] [address] 35504- 8292 Jun, Atypical chest pain R07.89 and Adjustment disorder with anxiety F43.22 [address] [id number] Jun, Chest pain, unspecified type R07.9 [place] [address] 45635- 3977 Jun, Fibromyalgia M79.7 [facility] [address] 67175- 9822 May, Anxiety F41.9 [place] [address] 35809- 7078 May, [facility] [address] 80156- 5395 May, Right elbow pain M25.521 [facility] [id number] [place] [address] 23235- 8497 Apr, Reflex sympathetic dystrophy G90.50 and Encounter for immunization Z23 [facility] [id number] [place] [address] 60823- 5338 Apr, [facility] [address] 12612- 9657 Mar, [facility] [id number] [place] [address] 48554- 8964 Feb, [facility] [address] 86259- 9817 Feb, [facility] [id number] [place] [address] 92025- 1657 Jan, [facility] [address] 71685- 8265 Jan, Right elbow pain M25.521 and Right wrist pain M25.531 [facility] [id number] [place] [address] 33049- 9712 Jan, [facility] [id number] [place] [address] 80719- 7895 Dec, Seborrheic keratoses L82.1 [facility] [id number] [place] [address] 20564- 4033 Dec, [facility] [id number] [place] [address] 50546- 7649 Dec, [facility] [id number] [place] [address] 20501- 6924 Dec, [facility] [id number] [place] [address] 77588- 2470 Dec, Fibromyalgia M79.7 and Hypothyroidism, unspecified type E03.9 [facility] [address] [address]- 6060 Dec, Seborrheic keratoses L82.1 [facility] [address], [place] [address]- 7196 Dec, [facility] [address] [place] [address] 21221- 7608 Dec, [facility] [place] [id number] [place] [address] 88869- 2710 Nov, Sebaceous cyst L72.3 [facility] [id number] [place] [address] 63774- 9959 October, Breast cancer screening Z12.39 [facility] [place] [id number] [place] [address] 74699- 3836 October, Fibromyalgia M79.7 ; Hypothyroidism, unspecified type E03.9 and Reflex sympathetic dystrophy G90.50 [place] [address], [place] [address]- 4186 October, Reflex sympathetic dystrophy G90.50 ; Fibromyalgia M79.7 and Hypothyroidism, unspecified type E03.9 IMMUNIZATIONS No Known Immunizations SOCIAL HISTORY Never Assessed REASON FOR VISIT Anxiety and depresson. PLAN OF CARE Activity Details Follow Up 1 Week Reason:anxiety and depression VITAL SIGNS MEDICATIONS Unknown Medications RESULTS No Results PROCEDURES Procedure Date Ordered Result Body Site [facility] VISIT MENTAL HEALTH ESTAB PT Jun 21, 2017 Psychotherapy, patient &/family, 45 minutes, established patient Jun 21, 2017 INSTRUCTIONS MEDICATIONS ADMINISTERED No Known Medications [...]
--- OUTSIDE RECORDS SUMMARY | 2018-03-07 18:06 | XMS REPORT ---
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 Name Role Phone JOE BAI Unavailable PROBLEMS Type Condition ICD9-CM Code JEB90-PM Code Onset Dates Condition Status SNOMED Code Problem Arthritis M19.90 Active 9496705 Problem Gastroesophageal reflux disease, esophagitis presence not specified K21.9 Active 095409107 Problem Reactive depression F32.9 Active 46345345 Problem Abnormal laboratory test R89.9 Active 400374288 Problem Mild episode of recurrent major depressive disorder F33.0 Active 050026885 Problem Rosacea L71.9 Active 053387170 Problem Plantar wart of right foot B07.0 Active 00691896 Problem Generalized anxiety disorder F41.1 Active 22313801 Problem Mixed hyperlipidemia E78.2 Active 752158818 Problem Fibromyalgia M79.7 Active 575785299 Problem Right elbow pain M25.521 Active 05112709 Problem Hypothyroidism, unspecified type E03.9 Active 46986147 Problem Right wrist pain M25.531 Active 09074585 Problem Reflex sympathetic dystrophy G90.50 Active 34900168 Problem Venous insufficiency I87.2 Active 28010987 ALLERGIES Substance Reaction Event Type Date Status Robaxin Unknown Drug Allergy Feb, Active Penicillin V Potassium Unknown Drug Allergy Feb, Active Demerol Unknown Drug Allergy Feb, Active Codeine Sulfate Unknown Drug Allergy Feb, Active ENCOUNTERS Encounter Location Date Diagnosis [facility] [address] [facility] [id number] [address] Dec, [facility] [address] [id number] [address] Nov, [facility] [address] [id number], [place] [address] October, [facility] [id number] [place] [address] 75504- 8082 October, Generalized anxiety disorder F41.1 and Mild episode of recurrent major depressive disorder F33.0 [facility] [id number] [place] [address] 77556- 5635 October, [facility] [id number] [place] [address] 39838- 6296 Sep, Gastroesophageal reflux disease, esophagitis presence not specified K21.9 and Abnormal laboratory test R89.9 [facility] [id number] [place] [address] 77342- 7565 Sep, Fibromyalgia M79.7 [facility] [id number] [place] [address] 80989- 9544 Sep, Generalized anxiety disorder F41.1 and Mild episode of recurrent major depressive disorder F33.0 [facility] [id number] [place] [address] 56346- 2364 Sep, Epigastric pain R10.13 [facility] [id number] [place] [address] 92871- 0707 Sep, Mild episode of recurrent major depressive disorder F33.0 and Generalized anxiety disorder F41.1 [place] [id number] [place] [address] 50571- 7120 Sep, Abnormal laboratory test R89.9 [facility] [id number] [place] [address] 20808- 4668 Sep, Generalized anxiety disorder F41.1 and Mild episode of recurrent major depressive disorder F33.0 [facility] [id number] [place] [address] 35471- 4778 Aug, Epigastric pain R10.13 and Encounter for therapeutic drug level monitoring Z51.81 [facility] [id number] [place] [address] 44531 -9914 Aug, Epigastric pain R10.13 and Gastro-esophageal reflux disease without esophagitis K21.9 [facility] [id number] [place] [address] 08393- 6046 Aug, [facility] [address] 38578- 7060 21 Aug, 2017 Epigastric pain R10.13 [facility] [id number] [place] [address] 04785- 0960 20 Aug, 2017 Fibromyalgia M79.7 [facility] [id number] [place] [address] 18786- 0633 14 Aug, 2017 [facility] [id number] [place] [address] 21790- 7316 14 Aug, 2017 Generalized anxiety disorder F41.1 and Mild episode of recurrent major depressive disorder F33.0 [facility] [id number] [place] [address] 92647- 2863 08 Aug, 2017 Epigastric pain R10.13 ; Reflex sympathetic dystrophy G90.50 and Arthritis M19.90 [facility] [id number] [place] [address] 06955- 6234 Jul, Generalized anxiety disorder F41.1 and Mild episode of recurrent major depressive disorder F33.0 [facility] [id number] [place] [address] 88989- 1481 27 Jul, 2017 BMI 40.0-44.9, adult Z68.41 ; Mild episode of recurrent major depressive disorder F33.0 and Generalized anxiety disorder F41.1 [facility] [id number] [place] [address] 43553- 5605 Jul, Fibromyalgia M79.7 [facility] [id number] [place] [address] 13455- 4580 Jun, Mild episode of recurrent major depressive disorder F33.0 and Generalized anxiety disorder F41.1 [place] [facility] [id number] [place] [address] 44886- 5513 Jun, Fibromyalgia M79.7 [place] [address] [address] [place] [address] Jun, Generalized anxiety disorder F41.1 and Mild episode of recurrent major depressive disorder F33.0 [facility] [id number] [place] [address] 70975- 4311 Jun, Generalized anxiety disorder F41.1 and Mild episode of recurrent major depressive disorder F33.0 [facility] [id number] [place] [address] 20280- 5324 Jun, Generalized anxiety disorder F41.1 and Mild episode of recurrent major depressive disorder F33.0 [facility] [id number] [place] [address] 31843- 4534 Jun, [facility] [id number] [place] [address] 23840- 7094 Jun, Generalized anxiety disorder F41.1 and Mild episode of recurrent major depressive disorder F33.0 [facility] [id number] [place] [address] 69888- 8533 May, Fibromyalgia M79.7 [facility] [id number] [place] [address] 06931- 7411 May, Generalized anxiety disorder F41.1 and Mild episode of recurrent major depressive disorder F33.0 [facility] [address] [place] [address] 37004- 7520 May, Mixed hyperlipidemia E78.2 ; Arthritis M19.90 ; Reactive depression F32.9 and Hypothyroidism, unspecified type E03.9 [facility] [address] [place] [address] 58765- 1378 May, Arthritis M19.90 ; Reactive depression F32.9 ; Mixed hyperlipidemia E78.2 and Hypothyroidism, unspecified type E03.9 [facility] [address], [place] [address] Apr, Fibromyalgia M79.7 [facility] [id number] [place] [address] 59648- 6065 Apr, [facility] [id number] [place] [address] 38522- 9319 Apr, Fibromyalgia M79.7 [facility] [id number] [place] [address] 46371- 6346 Mar, Fibromyalgia M79.7 [facility] [id number] [place] [address] 92006- 3935 Mar, [facility] [address] 49693- 4227 Mar, Fibromyalgia M79.7 [facility] [address] 98909- 8980 Mar, [facility] [id number] [place] [address] 07104- 0519 Feb, Reflex sympathetic dystrophy G90.50 ; Right arm pain M79.601 and Fibromyalgia M79.7 [facility] [id number] [place] [address] 12764- 4146 Feb, [facility] [id number] [place] [address] 34850- 2268 Feb, Anxiety F41.9 [facility] [id number] [place] [address] 91576- 6050 Feb, Fibromyalgia M79.7 [facility] [id number] [place] [address] 48623- 1896 Feb, [facility] [id number] [place] [address] 61490- 2547 Feb, [facility] [id number] [place] [address] 72842- 0189 Jan, Temporal headache R51 [facility] [id number] [place] [address] 77385- 7187 Jan, Fibromyalgia M79.7 [facility] [id number] [place] [address] 55120- 5325 Dec, Fibromyalgia M79.7 [facility] [id number] [place] [address] 55717- 2966 Nov, Peroneal tendonitis, unspecified laterality M76.70 and Plantar fasciitis, bilateral M72.2 [facility] [facility] [id number] [place] [address] 39509- 4779 Nov, Fibromyalgia M79.7 [facility] [address] 41588- 9695 October, Fibromyalgia M79.7 [place] [facility] [address] 42616- 0280 October, Plantar fasciitis, bilateral M72.2 and Peroneal tendonitis, unspecified laterality M76.70 [place] [address] 00267- 7979 October, Fibromyalgia M79.7 [place] [address] 95971- 1597 Sep, Anxiety F41.9 [place] [address] 67135- 0068 Aug, Anxiety F41.9 and Adjustment disorder with anxiety F43.22 [place] [id number] [place] [address] 49404- 7467 Aug, Pain of left foot M79.672 [facility] [facility] [id number] [place] [address] 39659- 1275 Aug, Pain of left foot M79.672 and Pain in right foot M79.671 [place] [address] 82158- 0932 Aug, Arthritis M19.90 ; Reactive depression F32.9 ; Fibromyalgia M79.7 ; Rosacea L71.9 ; Pain in right foot M79.671 and Pain of left foot M79.672 [place] [address] 43377- 9064 17 Aug, 2016 Anxiety F41.9 ; Adjustment disorder with anxiety F43.22 and Reactive depression F32.9 [place] [address] 98288- 6089 14 Aug, 2016 Right elbow pain M25.521 [facility] [facility] [address] 19203- 7878 07 Aug, 2016 Plantar wart of right foot B07.0 and Actinic keratosis L57.0 [place] [address] 22150- 4397 Aug, Fibromyalgia M79.7 [place] [address] 07441- 6441 Jul, Arthritis M19.90 ; Hypothyroidism, unspecified type E03.9 ; Reactive depression F32.9 and Venous insufficiency I87.2 [place] [address] 25181- 1206 Jul, Gastroesophageal reflux disease, esophagitis presence not specified K21.9 [facility] [address] 49581- 9299 Jul, Reflex sympathetic dystrophy G90.50 [facility] [address] 80781- 3514 17 Jul, 2016 Anxiety F41.9 ; Adjustment disorder with anxiety F43.22 and Reactive depression F32.9 [place] [address] 60266- 5121 15 Jul, 2016 [place] [address] 67413- 4265 03 Jul, 2016 Right elbow pain M25.521 [place] [address] 48301- 5686 Jun, Fibromyalgia M79.7 [place] [address] 35814- 1117 Jun, Anxiety F41.9 ; Adjustment disorder with anxiety F43.22 and Reactive depression F32.9 [place] [address] 23846- 5051 Jun, [place] [address] 60533- 5695 Jun, Atypical chest pain R07.89 and Adjustment disorder with anxiety F43.22 [facility] [place] [address] [id number] Jun, Chest pain, unspecified type R07.9 [place] [address] 75181- 4883 Jun, Fibromyalgia M79.7 [place] [address] 95919- 5085 May, Anxiety F41.9 [place] [address] 28433- 1491 14 May, 2016 [place] [address] 14431- 8707 May, Right elbow pain M25.521 [place] [address] 60954- 7480 Apr, Reflex sympathetic dystrophy G90.50 and Encounter for immunization Z23 [place] [address] 62432- 5762 Apr, [place] [address] 17225- 4683 14 Mar, 2016 [place] [address] 95283- 7769 Feb, [place] [address] 65146- 5568 Feb, [place] [address] 83898- 5159 Jan, [facility] [address], [place] [address]- [address] Jan, Right elbow pain M25.521 and Right wrist pain M25.531 [facility] [id number] [place] [address] 36171- 5628 Jan, [facility] [id number] [place] [address] 64012- 6870 Dec, Seborrheic keratoses L82.1 [facility] [id number] [place] [address] 82795- 5755 Dec, [facility] [id number] [place] [address] 08542- 0822 Dec, [facility] [id number] [place] [address] 32168- 4243 Dec, [facility] [id number] [place] [address] 23948- 9517 Dec, Fibromyalgia M79.7 and Hypothyroidism, unspecified type E03.9 [facility] [id number] [place] [address] 30783- 5640 Dec, Seborrheic keratoses L82.1 [facility] [id number] [place] [address] 64683- 4403 Dec, [facility] [id number] [place] [address] 67965- 4365 Dec, [facility] [address] [place] [address] 54544- 9686 Nov, Sebaceous cyst L72.3 [facility] [id number] [place] [address] 50829- 2598 October, Breast cancer screening Z12.39 [facility] [id number] [place] [address] 38285- 4921 October, Fibromyalgia M79.7 ; Hypothyroidism, unspecified type E03.9 and Reflex sympathetic dystrophy G90.50 [facility] [place] [address] [facility] [id number] [address] October, Reflex sympathetic dystrophy G90.50 ; Fibromyalgia M79.7 and Hypothyroidism, unspecified type E03.9 IMMUNIZATIONS No Known Immunizations SOCIAL HISTORY Never Assessed REASON FOR VISIT Pain (acute), Also PT has concerns about a tumor in her right arm- [place], PT is also having constand pressure on the top of her scalp PLAN OF CARE Activity Details Follow Up 3 Months Reason: VITAL SIGNS Height 62 in 2017-03-10 Weight 211.2 lbs 2017-03-10 Temperature 98.0 degrees Fahrenheit 2017-03-10 Heart Rate 78 bpm 2017-03-10 Respiratory Rate 20 2017-03-10 BMI 38.62 kg/m2 2017-03-10 Blood pressure systolic 122 mmHg 2017-03-10 Blood pressure diastolic 76 mmHg 2017-03-10 MEDICATIONS Medication Instructions Dosage Frequency Start Date End Date Duration Status Pantoprazole Sodium 40MG Orally Once a day 1 tablet 24h 30 Active Fiorinal 50-325-40 MG Orally every 4 hrs 1 capsule as needed 4h 11 Jan, 2017 Active Topiramate 200MG Orally twice a day 1 tablet 12h 30 Active Hydrocodone-Acetaminophen 7.5-325 MG Orally 3 times a day 1 tablet 8h 06 Feb, 2017 28 days Active Mobic 7.5 MG Orally Once a day 1 tablet 24h 21 Jul, 2016 30 day(s) Active Levothyroxine Sodium 75MCG TAKE ONE TABLET BY MOUTH ONCE DAILY 90 Active Excedrin Migraine 250-250-65 MG Orally every 6 hrs 2 tablets as needed 6h Active Orphenadrine Citrate ER 100 MG Orally 2 times a day 1 tablet 12h 30 days Active Prozac 20MG Orally Once a day 3 capsule in the morning 24h 30 Active RESULTS Name Result Date Reference Range Ultrasound : Soft Tissue (specify location) 2017-03-18 PROCEDURES Procedure Date Ordered Result Body Site [facility] VISIT ESTABLISHED PATIENT Mar 10, 2017 INSTRUCTIONS MEDICATIONS ADMINISTERED No Known Medications [...]
--- OUTSIDE RECORDS SUMMARY | 2018-03-07 18:07 | XMS REPORT ---
Author Author JOE BAI [facility] Address [address] [place] [address] Care Team Providers Care Keno Writer / Runner Name Role Phone JOE BAI Unavailable PROBLEMS Type Condition ICD9-CM Code MHS25-SQ Code Onset Dates Condition Status SNOMED Code Problem Arthritis M19.90 Active 6319269 Problem Gastroesophageal reflux disease, esophagitis presence not specified K21.9 Active 825412612 Problem Reactive depression F32.9 Active 90109962 Problem Abnormal laboratory test R89.9 Active 965817247 Problem Mild episode of recurrent major depressive disorder F33.0 Active 760617293 Problem Rosacea L71.9 Active 837137417 Problem Plantar wart of right foot B07.0 Active 83074568 Problem Generalized anxiety disorder F41.1 Active 25378892 Problem Mixed hyperlipidemia E78.2 Active 296028639 Problem Fibromyalgia M79.7 Active 186555852 Problem Right elbow pain M25.521 Active 87167141 Problem Hypothyroidism, unspecified type E03.9 Active 02346055 Problem Right wrist pain M25.531 Active 10367621 Problem Reflex sympathetic dystrophy G90.50 Active 07176890 Problem Venous insufficiency I87.2 Active 50852777 ALLERGIES No Information ENCOUNTERS Encounter Location Date Diagnosis [facility] [id number] [place] [address] 04992- 3559 Dec, [facility] [address] [address] October, [facility] [id number] [place] [address] 33956- 9913 Sep, Medicare annual wellness visit, initial Z00.00 [facility] [address] [address] Sep, Fibromyalgia M79.7 [facility] [id number] [place] [address] 34758- 6721 17 Sep, 2017 Generalized anxiety disorder F41.1 and Mild episode of recurrent major depressive disorder F33.0 [facility] [id number] [place] [address] 39408- 8515 Sep, Epigastric pain R10.13 [facility] [id number] [place] [address] 07723- 7314 10 Sep, 2017 Mild episode of recurrent major depressive disorder F33.0 and Generalized anxiety disorder F41.1 [facility] [id number] [place] [address] 01869- 7635 02 Sep, 2017 Abnormal laboratory test R89.9 [facility] [id number] [place] [address] 05843- 0012 Sep, Generalized anxiety disorder F41.1 and Mild episode of recurrent major depressive disorder F33.0 [facility] [id number] [place] [address] 22174- 0534 29 Aug, 2017 Epigastric pain R10.13 and Encounter for therapeutic drug level monitoring Z51.81 [facility] [id number] [place] [address] 11873 -4051 28 Aug, 2017 Epigastric pain R10.13 and Gastro-esophageal reflux disease without esophagitis K21.9 [facility] [id number] [place] [address] 84832- 8313 Aug, [facility] [id number] [place] [address] 97814- 1060 Aug, Epigastric pain R10.13 [facility] [id number] [place] [address] 23098- 5647 20 Aug, 2017 Fibromyalgia M79.7 [facility] [id number] [place] [address] 21945- 1431 14 Aug, 2017 [facility] [id number] [place] [address] 61985- 3691 14 Aug, 2017 Generalized anxiety disorder F41.1 and Mild episode of recurrent major depressive disorder F33.0 [facility] [id number] [place] [address] 18754- 8690 Aug, Epigastric pain R10.13 ; Reflex sympathetic dystrophy G90.50 and Arthritis M19.90 [facility] [id number] [place] [address] 56049- 3128 Jul, Generalized anxiety disorder F41.1 and Mild episode of recurrent major depressive disorder F33.0 [facility] [id number] [place] [address] 76115- 7166 Jul, BMI 40.0-44.9, adult Z68.41 ; Mild episode of recurrent major depressive disorder F33.0 and Generalized anxiety disorder F41.1 [facility] [id number] [place] [address] 64362- 8543 Jul, Fibromyalgia M79.7 [facility] [address] 18363- 3116 Jun, Mild episode of recurrent major depressive disorder F33.0 and Generalized anxiety disorder F41.1 [facility] [id number] [place] [address] 85401- 9809 Jun, Fibromyalgia M79.7 [facility] [id number] [place] [address] 40895- 9880 Jun, Generalized anxiety disorder F41.1 and Mild episode of recurrent major depressive disorder F33.0 [facility] [id number] [place] [address] 45993- 9135 Jun, Generalized anxiety disorder F41.1 and Mild episode of recurrent major depressive disorder F33.0 [facility] [id number] [place] [address] 34779- 8767 Jun, Generalized anxiety disorder F41.1 and Mild episode of recurrent major depressive disorder F33.0 [facility] [id number] [place] [address] 08495- 0808 Jun, [facility] [id number] [place] [address] 76275- 1448 Jun, Generalized anxiety disorder F41.1 and Mild episode of recurrent major depressive disorder F33.0 [facility] [id number] [place] [address] 82438- 3276 May, Fibromyalgia M79.7 [facility] [id number] [place] [address] 25194- 2514 May, Generalized anxiety disorder F41.1 and Mild episode of recurrent major depressive disorder F33.0 [facility] [address] [place] [address] 57797- 7286 May, Mixed hyperlipidemia E78.2 ; Arthritis M19.90 ; Reactive depression F32.9 and Hypothyroidism, unspecified type E03.9 [facility] [id number] [place] [address] 25914- 0842 May, Arthritis M19.90 ; Reactive depression F32.9 ; Mixed hyperlipidemia E78.2 and Hypothyroidism, unspecified type E03.9 [facility] [id number] [place] [address] 48907- 9225 Apr, Fibromyalgia M79.7 [facility] [id number] [place] [address] 10033- 2983 Apr, [facility] [id number] [place] [address] 44775- 9283 Apr, Fibromyalgia M79.7 [facility] [address] [place] [address] 33770- 0902 Mar, Fibromyalgia M79.7 [facility] [id number] [place] [address] 51111- 1140 Mar, [facility] [id number] [place] [address] 71760- 8089 Mar, Fibromyalgia M79.7 [facility] [id number] [place] [address] 92379- 4104 Mar, [facility] [id number] [place] [address] 83526- 9126 Feb, Reflex sympathetic dystrophy G90.50 ; Right arm pain M79.601 and Fibromyalgia M79.7 [facility] [id number] [place] [address] 75645 2546 Feb, [facility] [address] [address] 2546 Feb, Anxiety F41.9 [facility] [address] [address] 2540 06 Feb, 2017 Fibromyalgia M79.7 [facility] [address] 28781- 0236 Feb, [facility] [id number] [place] [address] 08476- 7697 Feb, [facility] [address] 70022- 1523 Jan, Temporal headache R51 [facility] [id number] [place] [address] 01385- 3157 Jan, Fibromyalgia M79.7 [facility] [id number] [place] [address] 73367- 9187 Dec, Fibromyalgia M79.7 [facility] [id number] [place] [address] 77959- 2547 Nov, Peroneal tendonitis, unspecified laterality M76.70 and Plantar fasciitis, bilateral M72.2 [facility] [id number] [place] [address] 13062- 3951 Nov, Fibromyalgia M79.7 [facility] [id number] [place] [address] 48774- 5331 October, Fibromyalgia M79.7 [facility] [id number] [place] [address] 10852- 6931 October, Plantar fasciitis, bilateral M72.2 and Peroneal tendonitis, unspecified laterality M76.70 [facility] [address] 93698- 9632 October, Fibromyalgia M79.7 [facility] [id number] [place] [address] 41831- 4808 Sep, Anxiety F41.9 [facility] [address] 89490- 8648 Aug, Anxiety F41.9 and Adjustment disorder with anxiety F43.22 [facility] [address] 64907- 8129 Aug, Pain of left foot M79.672 [facility] [address] 13274- 7472 Aug, Pain of left foot M79.672 and Pain in right foot M79.671 [facility] [address] 14318- 1688 Aug, Arthritis M19.90 ; Reactive depression F32.9 ; Fibromyalgia M79.7 ; Rosacea L71.9 ; Pain in right foot M79.671 and Pain of left foot M79.672 [facility] [id number] [place] [address] 73261- 2750 Aug, Anxiety F41.9 ; Adjustment disorder with anxiety F43.22 and Reactive depression F32.9 [facility] [id number] [place] [address] 51467- 0012 Aug, Right elbow pain M25.521 [facility] [address] 77179- 3693 Aug, Plantar wart of right foot B07.0 and Actinic keratosis L57.0 [facility] [id number] [place] [address] 69396- 8755 Aug, Fibromyalgia M79.7 [facility] [address] 39987- 5839 Jul, Arthritis M19.90 ; Hypothyroidism, unspecified type E03.9 ; Reactive depression F32.9 and Venous insufficiency I87.2 [facility] [address] 92712- 2723 Jul, Gastroesophageal reflux disease, esophagitis presence not specified K21.9 [facility] [address] 70907- 4982 Jul, Reflex sympathetic dystrophy G90.50 [facility] [address] 15383- 7290 Jul, Anxiety F41.9 ; Adjustment disorder with anxiety F43.22 and Reactive depression F32.9 [facility] [address] 40077- 4586 Jul, [facility] [address] 91089- 2636 Jul, Right elbow pain M25.521 [facility] [address] 28922- 9963 Jun, Fibromyalgia M79.7 [facility] [address] 72755- 3260 Jun, Anxiety F41.9 ; Adjustment disorder with anxiety F43.22 and Reactive depression F32.9 [facility] [address] 43856- 6810 Jun, [facility] [address] 10630- 2479 Jun, Atypical chest pain R07.89 and Adjustment disorder with anxiety F43.22 [facility] [address] [id number] Jun, Chest pain, unspecified type R07.9 [facility] [address] 71634- 0743 Jun, Fibromyalgia M79.7 [facility] [id number] [place] [address] 39998- 6174 May, Anxiety F41.9 [facility] [id number] [place] [address] 78388- 8299 May, [facility] [address] 16399- 8436 May, Right elbow pain M25.521 [facility] [address] 46624- 8682 Apr, Reflex sympathetic dystrophy G90.50 and Encounter for immunization Z23 [facility] [address] 12586- 1794 Apr, [facility] [address] 95324- 9194 Mar, [facility] [address] 15659- 5092 Feb, [facility] [id number] [place] [address] 28021- 7183 Feb, [facility] [id number] [place] [address] 94535- 8156 Jan, [facility] [id number] [place] [address] 56140- 5959 Jan, Right elbow pain M25.521 and Right wrist pain M25.531 [facility] [id number] [place] [address] 82878- 6750 Jan, [facility] [address] 81621- 6904 Dec, Seborrheic keratoses L82.1 [facility] [id number] [place] [address] 45764- 4726 Dec, [facility] [address] [place] [address]- 2422 Dec, [facility] [id number] [place] [address] 20091- 6366 Dec, [facility] [id number] [place] [address] 51580- 2422 Dec, Fibromyalgia M79.7 and Hypothyroidism, unspecified type E03.9 [facility] [id number] [place] [address] 94179- 8876 Dec, Seborrheic keratoses L82.1 [facility] [id number] [place] [address] 71061- 0735 Dec, [facility] [id number] [place] [address] 73944- 8397 Dec, [facility] [id number] [place] [address] 56892- 6686 Nov, Sebaceous cyst L72.3 [facility] [id number] [place] [address] 35541- 7040 October, Breast cancer screening Z12.39 [facility] [id number] [place] [address] 79179- 5487 October, Fibromyalgia M79.7 ; Hypothyroidism, unspecified type E03.9 and Reflex sympathetic dystrophy G90.50 [facility] [id number] [place] [address] 85715- 8526 October, Reflex sympathetic dystrophy G90.50 ; Fibromyalgia M79.7 and Hypothyroidism, unspecified type E03.9 IMMUNIZATIONS No Known Immunizations SOCIAL HISTORY Never Assessed REASON FOR VISIT Patient voicemail PLAN OF CARE VITAL SIGNS MEDICATIONS Medication Instructions Dosage Frequency Start Date End Date Duration Status Orphenadrine Citrate ER 100 MG Orally 2 [...] resection Hospitalization History surgeries Hospitalization History Chest [facility] 07/02/16
--- OUTSIDE RECORDS SUMMARY | 2018-03-07 18:07 | XMS REPORT ---
Author Author JOE BAI [facility] Address [address] [place] [address] Care Team Providers Care Bow Maker Gift Wrapping Name Role Phone JOE BAI Unavailable PROBLEMS Type Condition ICD9-CM Code PBP89-EY Code Onset Dates Condition Status SNOMED Code Problem Arthritis M19.90 Active 1162050 Problem Gastroesophageal reflux disease, esophagitis presence not specified K21.9 Active 849519943 Problem Reactive depression F32.9 Active 52772597 Problem Abnormal laboratory test R89.9 Active 753205796 Problem Mild episode of recurrent major depressive disorder F33.0 Active 895922013 Problem Rosacea L71.9 Active 904768152 Problem Plantar wart of right foot B07.0 Active 19499662 Problem Generalized anxiety disorder F41.1 Active 01120483 Problem Mixed hyperlipidemia E78.2 Active 848282569 Problem Fibromyalgia M79.7 Active 741409518 Problem Right elbow pain M25.521 Active 79815818 Problem Hypothyroidism, unspecified type E03.9 Active 15254224 Problem Right wrist pain M25.531 Active 19680322 Problem Reflex sympathetic dystrophy G90.50 Active 32574205 Problem Venous insufficiency I87.2 Active 80554351 ALLERGIES No Information ENCOUNTERS Encounter Location Date Diagnosis [facility] [address] [address] Dec, [facility] [address] [address] October, [facility] [id number] [place] [address] 46989- 2277 Sep, Gastroesophageal reflux disease, esophagitis presence not specified K21.9 and Abnormal laboratory test R89.9 [facility] [id number] [place] [address] 28839- 7985 Sep, Fibromyalgia M79.7 [facility] [id number] [place] [address] 31788- 2843 17 Sep, 2017 Generalized anxiety disorder F41.1 and Mild episode of recurrent major depressive disorder F33.0 [facility] [id number] [place] [address] 34338 2546 13 Sep, 2017 Epigastric pain R10.13 [facility] [id number] [place] [address] 82083- 3058 10 Sep, 2017 Mild episode of recurrent major depressive disorder F33.0 and Generalized anxiety disorder F41.1 [facility] [id number] [place] [address] 17890- 0988 02 Sep, 2017 Abnormal laboratory test R89.9 [facility] [id number] [place] [address] 13611- 6471 02 Sep, 2017 Generalized anxiety disorder F41.1 and Mild episode of recurrent major depressive disorder F33.0 [facility] [id number] [place] [address] 89922- 2014 29 Aug, 2017 Epigastric pain R10.13 and Encounter for therapeutic drug level monitoring Z51.81 [facility] [id number] [place] [address] 44971 -0467 28 Aug, 2017 Epigastric pain R10.13 and Gastro-esophageal reflux disease without esophagitis K21.9 [facility] [id number] [place] [address] 05563- 4064 Aug, [facility] [id number] [place] [address] 47742 2540 Aug, Epigastric pain R10.13 [facility] [id number] [place] [address] 41115- 9228 20 Aug, 2017 Fibromyalgia M79.7 [facility] [id number] [place] [address] 46600- 2540 14 Aug, 2017 [facility] [id number] [place] [address] 45453- 7448 14 Aug, 2017 Generalized anxiety disorder F41.1 and Mild episode of recurrent major depressive disorder F33.0 [facility] [id number] [place] [address] 50392- 8531 08 Aug, 2017 Epigastric pain R10.13 ; Reflex sympathetic dystrophy G90.50 and Arthritis M19.90 [facility] [id number] [place] [address] 17545- 9504 Jul, Generalized anxiety disorder F41.1 and Mild episode of recurrent major depressive disorder F33.0 [facility] [id number] [place] [address] 33577- 0970 Jul, BMI 40.0-44.9, adult Z68.41 ; Mild episode of recurrent major depressive disorder F33.0 and Generalized anxiety disorder F41.1 [facility] [id number] [place] [address] 78430- 7773 Jul, Fibromyalgia M79.7 [facility] [address] 80282- 5606 Jun, Mild episode of recurrent major depressive disorder F33.0 and Generalized anxiety disorder F41.1 [facility] [id number] [place] [address] 68947- 0466 Jun, Fibromyalgia M79.7 [facility] [id number] [place] [address] 10731- 0009 Jun, Generalized anxiety disorder F41.1 and Mild episode of recurrent major depressive disorder F33.0 [facility] [id number] [place] [address] 45133- 9492 Jun, Generalized anxiety disorder F41.1 and Mild episode of recurrent major depressive disorder F33.0 [facility] [id number] [place] [address] 94239- 2393 Jun, Generalized anxiety disorder F41.1 and Mild episode of recurrent major depressive disorder F33.0 [facility] [id number] [place] [address] 52704- 0175 Jun, [facility] [id number] [place] [address] 02579- 8336 Jun, Generalized anxiety disorder F41.1 and Mild episode of recurrent major depressive disorder F33.0 [facility] [id number] [place] [address] 66677- 7378 May, Fibromyalgia M79.7 [facility] [id number] [place] [address] 55614- 1553 May, Generalized anxiety disorder F41.1 and Mild episode of recurrent major depressive disorder F33.0 [facility] [address] 47505- 3409 May, Mixed hyperlipidemia E78.2 ; Arthritis M19.90 ; Reactive depression F32.9 and Hypothyroidism, unspecified type E03.9 [facility] [id number] [place] [address] 33208- 6875 May, Arthritis M19.90 ; Reactive depression F32.9 ; Mixed hyperlipidemia E78.2 and Hypothyroidism, unspecified type E03.9 [facility] [id number] [place] [address] 32688- 6982 Apr, Fibromyalgia M79.7 [facility] [id number] [place] [address] 13936- 0856 Apr, [facility] [id number] [place] [address] 66273- 2400 Apr, Fibromyalgia M79.7 [facility] [id number] [place] [address] 12402- 6369 Mar, Fibromyalgia M79.7 [facility] [id number] [place] [address] 48511- 6039 Mar, [facility] [id number] [place] [address] 93814- 8011 Mar, Fibromyalgia M79.7 [facility] [id number] [place] [address] 23957- 9977 Mar, [facility] [address] 8[address]01- [address]504 Feb, Reflex sympathetic dystrophy G90.50 ; Right arm pain M79.601 and Fibromyalgia M79.7 [facility] [address] 94990- 5685 Feb, [facility] [address] 42737- 2722 Feb, Anxiety F41.9 [facility] [address] 87290- 4555 Feb, Fibromyalgia M79.7 [facility] [address] 53702- 8846 Feb, [facility] [address] 48221- 3390 Feb, [facility] [id number] [place] [address] 77078- 8979 Jan, Temporal headache R51 [facility] [address] 79416- 6833 Jan, Fibromyalgia M79.7 [facility] [id number] [place] [address] 69403- 7032 Dec, Fibromyalgia M79.7 [facility] [id number] [place] [address] 61717- 4929 Nov, Peroneal tendonitis, unspecified laterality M76.70 and Plantar fasciitis, bilateral M72.2 [facility] [address] [address]- 1990 Nov, Fibromyalgia M79.7 [facility] [id number] [place] [address] 90959- 5238 October, Fibromyalgia M79.7 [facility] [address] 96862- 5783 October, Plantar fasciitis, bilateral M72.2 and Peroneal tendonitis, unspecified laterality M76.70 [facility] [address] 76373- 2669 October, Fibromyalgia M79.7 [facility] [address] 57823- 9435 Sep, Anxiety F41.9 [facility] [address] 91702- 0611 Aug, Anxiety F41.9 and Adjustment disorder with anxiety F43.22 [facility] [address] 46463- 9701 Aug, Pain of left foot M79.672 [facility] [address] 49328- 3173 Aug, Pain of left foot M79.672 and Pain in right foot M79.671 [facility] [id number] [place] [address] 71083- 9196 Aug, Arthritis M19.90 ; Reactive depression F32.9 ; Fibromyalgia M79.7 ; Rosacea L71.9 ; Pain in right foot M79.671 and Pain of left foot M79.672 [facility] [id number] [place] [address] 52297- 5381 Aug, Anxiety F41.9 ; Adjustment disorder with anxiety F43.22 and Reactive depression F32.9 [facility] [id number] [place] [address] 59683- 4306 Aug, Right elbow pain M25.521 [facility] [address] 10334- 0238 Aug, Plantar wart of right foot B07.0 and Actinic keratosis L57.0 [facility] [id number] [place] [address] 05049- 7954 Aug, Fibromyalgia M79.7 [place] [address] 30282- 2605 Jul, Arthritis M19.90 ; Hypothyroidism, unspecified type E03.9 ; Reactive depression F32.9 and Venous insufficiency I87.2 [place] [facility] [address] 03236- 4207 Jul, Gastroesophageal reflux disease, esophagitis presence not specified K21.9 [facility] [address] 53442- 2462 Jul, Reflex sympathetic dystrophy G90.50 [facility] [address] 34708- 5968 Jul, Anxiety F41.9 ; Adjustment disorder with anxiety F43.22 and Reactive depression F32.9 [facility] [address] 29928- 0453 Jul, [facility] [address] 87727- 9800 Jul, Right elbow pain M25.521 [place] [address] 26472- 0323 Jun, Fibromyalgia M79.7 [facility] [address] 83155- 7822 Jun, Anxiety F41.9 ; Adjustment disorder with anxiety F43.22 and Reactive depression F32.9 [place] [address] 52735- 0901 Jun, [place] [facility] [address] 50737- 2257 Jun, Atypical chest pain R07.89 and Adjustment disorder with anxiety F43.22 [facility] [address] [id number] Jun, Chest pain, unspecified type R07.9 [facility] [id number] [place] [address] 03307- 2573 Jun, Fibromyalgia M79.7 [facility] [address] 38433- 3894 May, Anxiety F41.9 [facility] [id number] [place] [address] 81695- 9729 May, [facility] [address] 92819- 0242 May, Right elbow pain M25.521 [facility] [id number] [place] [address] 88824- 3019 Apr, Reflex sympathetic dystrophy G90.50 and Encounter for immunization Z23 [facility] [id number] [place] [address] 84863- 1329 Apr, [facility] [address] 33660- 0309 Mar, [facility] [id number] [place] [address] 82132- 0529 Feb, [facility] [address] 21402- 7682 Feb, [facility] [id number] [place] [address] 06304- 4982 Jan, [facility] [id number] [place] [address] 71916- 4180 Jan, Right elbow pain M25.521 and Right wrist pain M25.531 [facility] [id number] [place] [address] 86760- 7687 Jan, [facility] [id number] [place] [address] 07732- 2449 Dec, Seborrheic keratoses L82.1 [facility] [id number] [place] [address] 88169- 1878 Dec, [place] [facility] [id number] [place] [address] 70361- 1359 Dec, [facility] [id number] [place] [address] 01898- 1530 Dec, [facility] [id number] [place] [address] 36295- 6575 Dec, Fibromyalgia M79.7 and Hypothyroidism, unspecified type E03.9 [facility] [id number] [place] [address] 15193- 1238 Dec, Seborrheic keratoses L82.1 [facility] [facility] [address] 67274- 3447 Dec, [facility] [id number] [place] [address] 60127- 2326 Dec, [facility] [id number] [place] [address] 48765- 6407 Nov, Sebaceous cyst L72.3 [facility] [id number] [place] [address] 50923- 6117 October, Breast cancer screening Z12.39 [facility] [id number] [place] [address] 41297- 5341 October, Fibromyalgia M79.7 ; Hypothyroidism, unspecified type E03.9 and Reflex sympathetic dystrophy G90.50 [facility] [id number] [place] [address] 52295- 9780 October, Reflex sympathetic dystrophy G90.50 ; Fibromyalgia [...]
--- OUTSIDE RECORDS SUMMARY | 2018-03-07 18:08 | XMS REPORT ---
Author Author JOE BAI Organization [facility] Address [address] [place] [address] Care Team Providers Care Whale Fisherman Name Role Phone JOE BAI Unavailable PROBLEMS Type Condition ICD9-CM Code UPV79-DS Code Onset Dates Condition Status SNOMED Code Problem Reactive depression F32.9 Active 55345982 Problem Plantar wart of right foot B07.0 Active 19415294 Problem Gastroesophageal reflux disease, esophagitis presence not specified K21.9 Active 652664126 Problem Internal derangement of right knee M23.91 Active 339014900605657 Problem Abnormal laboratory test R89.9 Active 015852884 Problem Mixed hyperlipidemia E78.2 Active 315728258 Problem Rosacea L71.9 Active 609549926 Problem Mild episode of recurrent major depressive disorder F33.0 Active 266273372 Problem Generalized anxiety disorder F41.1 Active 94207292 Problem Hypothyroidism, unspecified type E03.9 Active 22073517 Problem Right elbow pain M25.521 Active 76238063 Problem Right wrist pain M25.531 Active 53157782 Problem Reflex sympathetic dystrophy G90.50 Active 65800421 Problem Venous insufficiency I87.2 Active 66396547 Problem Fibromyalgia M79.7 Active 931729172 Problem Arthritis M19.90 Active 5264131 ALLERGIES No Information ENCOUNTERS Encounter Location Date Diagnosis [facility] [id number] [address] Dec, [facility] [id number] [address] Dec, [facility] [address] [address] Nov, [facility] [id number] [address] Nov, Internal derangement of right knee M23.91 [facility] [address] [place] [address]40 [address]35 19 Nov, 2017 Acute right ankle pain M25.571 ; Acute pain of right knee M25.561 ; Acute left-sided low back pain without sciatica M54.5 and Right leg pain M79.604 [facility] [id number] [place] [address] 67876- 1837 15 Nov, 2017 [facility] [id number] [place] [address] 16332- 2192 14 Nov, 2017 [facility] [id number] [place] [address] 21571- 8586 Nov, Generalized anxiety disorder F41.1 and Mild episode of recurrent major depressive disorder F33.0 [facility] [id number] [place] [address] 07368- 3080 Nov, [facility] [id number] [place] [address] 86639- 5980 October, Generalized anxiety disorder F41.1 and Mild episode of recurrent major depressive disorder F33.0 [facility] [id number] [place] [address] 84356- 8077 October, Fibromyalgia M79.7 [facility] [id number] [place] [address] 08584- 7297 October, [facility] [id number] [place] [address] 32974- 4436 October, Generalized anxiety disorder F41.1 and Mild episode of recurrent major depressive disorder F33.0 [facility] [id number] [place] [address] 76319- 2786 October, [facility] [id number] [place] [address] 27429- 4187 Sep, Gastroesophageal reflux disease, esophagitis presence not specified K21.9 and Abnormal laboratory test R89.9 [facility] [id number] [place] [address] 47741- 3346 18 Sep, 2017 Fibromyalgia M79.7 [facility] [id number] [place] [address] 288414- 8706 17 Sep, 2017 Generalized anxiety disorder F41.1 and Mild episode of recurrent major depressive disorder F33.0 [facility] [id number] [place] [address] 64425- 3378 13 Sep, 2017 Epigastric pain R10.13 [facility] [id number] [place] [address] 81904- 0921 10 Sep, 2017 Mild episode of recurrent major depressive disorder F33.0 and Generalized anxiety disorder F41.1 [facility] [id number] [place] [address] 71406- 9267 Sep, Abnormal laboratory test R89.9 [facility] [id number] [place] [address] 57295- 5486 Sep, Generalized anxiety disorder F41.1 and Mild episode of recurrent major depressive disorder F33.0 [facility] [id number] [place] [address] 27498- 7522 29 Aug, 2017 Epigastric pain R10.13 and Encounter for therapeutic drug level monitoring Z51.81 [facility] [id number] [place] [address] 67014 -3597 28 Aug, 2017 Epigastric pain R10.13 and Gastro-esophageal reflux disease without esophagitis K21.9 [facility] [id number] [place] [address] 05658- 7215 Aug, [facility] [id number] [place] [address] 70175- 5220 21 Aug, 2017 Epigastric pain R10.13 [facility] [id number] [place] [address] 88816- 2724 20 Aug, 2017 Fibromyalgia M79.7 [facility] [id number] [place] [address] 45871- 4962 14 Aug, 2017 [facility] [id number] [place] [address] 95791- 7431 14 Aug, 2017 Generalized anxiety disorder F41.1 and Mild episode of recurrent major depressive disorder F33.0 [facility] [id number] [place] [address] 79943- 6931 08 Aug, 2017 Epigastric pain R10.13 ; Reflex sympathetic dystrophy G90.50 and Arthritis M19.90 [facility] [address] 69867- 1246 Jul, Generalized anxiety disorder F41.1 and Mild episode of recurrent major depressive disorder F33.0 [facility] [address] 14731- 6141 Jul, BMI 40.0-44.9, adult Z68.41 ; Mild episode of recurrent major depressive disorder F33.0 and Generalized anxiety disorder F41.1 [facility] [id number] [place] [address] 01321- 5497 Jul, Fibromyalgia M79.7 [facility] [id number] [place] [address] 27225- 1694 Jun, Mild episode of recurrent major depressive disorder F33.0 and Generalized anxiety disorder F41.1 [facility] [id number] [place] [address] 40562- 5386 Jun, Fibromyalgia M79.7 [facility] [id number] [place] [address] 97610- 3397 Jun, Generalized anxiety disorder F41.1 and Mild episode of recurrent major depressive disorder F33.0 [facility] [id number] [place] [address] 70164- 0108 Jun, Generalized anxiety disorder F41.1 and Mild episode of recurrent major depressive disorder F33.0 [facility] [id number] [place] [address] 17227- 0300 Jun, Generalized anxiety disorder F41.1 and Mild episode of recurrent major depressive disorder F33.0 [facility] [address] [address] Jun, [facility] [id number] [place] [address] 11388- 6193 Jun, Generalized anxiety disorder F41.1 and Mild episode of recurrent major depressive disorder F33.0 [facility] [id number] [place] [address] 32683- 0966 May, Fibromyalgia M79.7 [facility] [id number] [place] [address] 84431- 4939 May, Generalized anxiety disorder F41.1 and Mild episode of recurrent major depressive disorder F33.0 [facility] [id number] [place] [address] 07606- 8132 May, Mixed hyperlipidemia E78.2 ; Arthritis M19.90 ; Reactive depression F32.9 and Hypothyroidism, unspecified type E03.9 [facility] [id number] [place] [address] 06479- 0799 May, Arthritis M19.90 ; Reactive depression F32.9 ; Mixed hyperlipidemia E78.2 and Hypothyroidism, unspecified type E03.9 [facility] [place] [address] [place] [address] 65774- 3772 Apr, Fibromyalgia M79.7 [facility] [id number] [place] [address] 23480- 3797 Apr, [facility] [id number] [place] [address] 79187- 7285 Apr, Fibromyalgia M79.7 [facility] [id number] [place] [address] 10258- 2314 Mar, Fibromyalgia M79.7 [facility] [id number] [place] [address] 13616- 1178 Mar, [facility] [id number] [place] [address] 87216- 6648 Mar, Fibromyalgia M79.7 [facility] [id number] [place] [address] 77606- 6419 Mar, [facility] [address] 52169- 8313 Feb, Reflex sympathetic dystrophy G90.50 ; Right arm pain M79.601 and Fibromyalgia M79.7 [facility] [address] 82678- 7188 Feb, [facility] [address] 67964- 1375 Feb, Anxiety F41.9 [facility] [address] 58322- 4541 Feb, Fibromyalgia M79.7 [facility] [address] 26549- 4394 Feb, [facility] [address] 75397- 9932 Feb, [facility] [address] 48309- 5717 Jan, Temporal headache R51 [facility] [id number] [place] [address] 08369- 9730 Jan, Fibromyalgia M79.7 [facility] [id number] [place] [address] 53450- 8080 Dec, Fibromyalgia M79.7 [facility] [id number] [place] [address] 11514- 9191 Nov, Peroneal tendonitis, unspecified laterality M76.70 and Plantar fasciitis, bilateral M72.2 [facility] [address] 02039- 7079 Nov, Fibromyalgia M79.7 [facility] [id number] [place] [address] 99503- 7075 October, Fibromyalgia M79.7 [facility] [id number] [place] [address] 39574- 7342 October, Plantar fasciitis, bilateral M72.2 and Peroneal tendonitis, unspecified laterality M76.70 [facility] [id number] [place] [address] 32047- 8431 October, Fibromyalgia M79.7 [facility] [address] 54591- 3346 Sep, Anxiety F41.9 [facility] [place] [address] 22778- 5317 Aug, Anxiety F41.9 and Adjustment disorder with anxiety F43.22 [facility] [place] [address] 28280- 6077 Aug, Pain of left foot M79.672 [facility] [place] [address] 89022- 8887 Aug, Pain of left foot M79.672 and Pain in right foot M79.671 [facility] [id number] [place] [address] 88352- 8934 Aug, Arthritis M19.90 ; Reactive depression F32.9 ; Fibromyalgia M79.7 ; Rosacea L71.9 ; Pain in right foot M79.671 and Pain of left foot M79.672 [facility] [id number] [place] [address] 78641- 8397 Aug, Anxiety F41.9 ; Adjustment disorder with anxiety F43.22 and Reactive depression F32.9 [facility] [id number] [place] [address] 16254- 1530 Aug, Right elbow pain M25.521 [facility] [address] 04877- 8914 Aug, Plantar wart of right foot B07.0 and Actinic keratosis L57.0 [facility] [address] 24326- 8682 Aug, Fibromyalgia M79.7 [facility] [address] 32840- 0762 Jul, Arthritis M19.90 ; Hypothyroidism, unspecified type E03.9 ; Reactive depression F32.9 and Venous insufficiency I87.2 [place] [address] 80341- 6968 Jul, Gastroesophageal reflux disease, esophagitis presence not specified K21.9 [facility] [place] [address] 10951- 4947 Jul, Reflex sympathetic dystrophy G90.50 [facility] [place] [address] 99416- 5967 Jul, Anxiety F41.9 ; Adjustment disorder with anxiety F43.22 and Reactive depression F32.9 [place] [address] 83041- 0783 Jul, [facility] [address] 95983- 4207 Jul, Right elbow pain M25.521 [place] [address] 10473- 2764 Jun, Fibromyalgia M79.7 [facility] [place] [address] 11329- 9080 Jun, Anxiety F41.9 ; Adjustment disorder with anxiety F43.22 and Reactive depression F32.9 [place] [address] 44021- 3866 Jun, [facility] [place] [address] 23807- 4651 Jun, Atypical chest pain R07.89 and Adjustment disorder with anxiety F43.22 [place] [address] [id number] Jun, Chest pain, unspecified type R07.9 [facility] [id number] [place] [address] 58731- 1036 Jun, Fibromyalgia M79.7 [facility] [address] 28325- 6958 May, Anxiety F41.9 [facility] [address] 75410- 5679 May, [facility] [address] 91765- 3053 May, Right elbow pain M25.521 [facility] [address] 07956- 0656 Apr, Reflex sympathetic dystrophy G90.50 and Encounter for immunization Z23 [facility] [address] 86127- 0925 Apr, [facility] [address] 71506- 2051 Mar, [facility] [address] 25529- 3572 Feb, [facility] [address] 75489- 1366 Feb, [facility] [id number] [place] [address] 56798- 0467 Jan, [facility] [address] 65827- 7588 Jan, Right elbow pain M25.521 and Right wrist pain M25.531 [facility] [address] 13146- 2902 Jan, [facility] [address] 39460- 9579 Dec, Seborrheic keratoses L82.1 [facility] [address] 02743- 9278 Dec, [facility] [address] [address]- 3914 Dec, [facility] [id number] [place] [address] 03094- 4180 Dec, [facility] [id number] [place] [address] 78819- 7954 Dec, Fibromyalgia M79.7 and Hypothyroidism, unspecified type E03.9 [facility] [address] [place] [address] 55487- 8943 Dec, Seborrheic keratoses L82.1 [facility] [id number] [place] [address] 68307- 6700 Dec, [facility] [id number] [place] [address] 29212- 6419 Dec, [facility] [id number] [place] [address] 96923- 5481 Nov, Sebaceous cyst L72.3 [facility] [id number] [place] [address] 31709- 3460 October, Breast cancer screening Z12.39 [facility] [address] [place] [address] 64106- 4959 October, Fibromyalgia M79.7 ; Hypothyroidism, unspecified type E03.9 and Reflex sympathetic dystrophy G90.50 [facility] [place] [address] [place] [address] 90678- 2771 October, Reflex sympathetic dystrophy G90.50 ; Fibromyalgia M79.7 and Hypothyroidism, unspecified type E03.9 IMMUNIZATIONS No Known Immunizations SOCIAL HISTORY Never Assessed REASON FOR VISIT Hydrocodone 07/14 PLAN OF CARE VITAL SIGNS MEDICATIONS Medication Instructions Dosage Frequency Start Date End Date Duration Status Hydrocodone-Acetaminophen 7.5-325 MG Orally 3 times a day 1 tablet 8h Jun, 28 days Active RESULTS No Results PROCEDURES [...]
--- OUTSIDE RECORDS SUMMARY | 2018-03-07 18:08 | XMS REPORT ---
Author [facility] Address [address] [place] [address] Care Team Providers Care Signing Agent Name Role Phone JOE [facility] Unavailable PROBLEMS Type Condition ICD9-CM Code XMN83-TN Code Onset Dates Condition Status SNOMED Code Problem Arthritis M19.90 Active 4208379 Problem Gastroesophageal reflux disease, esophagitis presence not specified K21.9 Active 546369766 Problem Reactive depression F32.9 Active 87493023 Problem Abnormal laboratory test R89.9 Active 057537151 Problem Mild episode of recurrent major depressive disorder F33.0 Active 859370169 Problem Rosacea L71.9 Active 912350130 Problem Plantar wart of right foot B07.0 Active 22317378 Problem Generalized anxiety disorder F41.1 Active 09277465 Problem Mixed hyperlipidemia E78.2 Active 673441895 Problem Fibromyalgia M79.7 Active 693385485 Problem Right elbow pain M25.521 Active 19052501 Problem Hypothyroidism, unspecified type E03.9 Active 03169072 Problem Right wrist pain M25.531 Active 60205693 Problem Reflex sympathetic dystrophy G90.50 Active 72729465 Problem Venous insufficiency I87.2 Active 70063256 ALLERGIES No Information ENCOUNTERS Encounter Location Date Diagnosis [facility] [id number] [address] Dec, [facility] [id number] [address] Nov, [facility] [id number] [place] [address] 19322- 5778 Nov, [facility] [id number], [place] [address] October, Generalized anxiety disorder F41.1 and Mild episode of recurrent major depressive disorder F33.0 [facility] [id number] [place] [address] 95370- 7911 October, Fibromyalgia M79.7 [facility] [id number] [place] [address] 73971- 7066 October, [facility] [id number] [place] [address] 20528- 6337 October, Generalized anxiety disorder F41.1 and Mild episode of recurrent major depressive disorder F33.0 [facility] [id number] [place] [address] 71159- 9508 October, [facility] [id number] [place] [address] 57097- 3501 Sep, Gastroesophageal reflux disease, esophagitis presence not specified K21.9 and Abnormal laboratory test R89.9 [facility] [id number] [place] [address] 12359- 4671 Sep, Fibromyalgia M79.7 [facility] [id number] [place] [address] 51826- 5752 Sep, Generalized anxiety disorder F41.1 and Mild episode of recurrent major depressive disorder F33.0 [facility] [id number] [place] [address] 04110- 7268 Sep, Epigastric pain R10.13 [facility] [id number] [place] [address] 25977- 5324 Sep, Mild episode of recurrent major depressive disorder F33.0 and Generalized anxiety disorder F41.1 [facility] [id number] [place] [address] 32173- 2939 Sep, Abnormal laboratory test R89.9 [facility] [id number] [place] [address] 00624- 3623 Sep, Generalized anxiety disorder F41.1 and Mild episode of recurrent major depressive disorder F33.0 [facility] [id number] [place] [address] 87947- 7463 Aug, Epigastric pain R10.13 and Encounter for therapeutic drug level monitoring Z51.81 [facility] [id number] [place] [address] 54476 -7521 Aug, Epigastric pain R10.13 and Gastro-esophageal reflux disease without esophagitis K21.9 [facility] [id number] [place] [address] 29910- 7746 Aug, [facility] [id number] [place] [address] 62822- 0965 Aug, Epigastric pain R10.13 [facility] [id number] [place] [address] 14360- 3737 Aug, Fibromyalgia M79.7 [facility] [id number] [place] [address] 06863- 4413 Aug, [facility] [address] 98470- 8673 Aug, Generalized anxiety disorder F41.1 and Mild episode of recurrent major depressive disorder F33.0 [facility] [id number] [place] [address] 25624- 6291 08 Aug, 2017 Epigastric pain R10.13 ; Reflex sympathetic dystrophy G90.50 and Arthritis M19.90 [facility] [id number] [place] [address] 42910- 8410 Jul, Generalized anxiety disorder F41.1 and Mild episode of recurrent major depressive disorder F33.0 [facility] [id number] [place] [address] 55655- 7702 Jul, BMI 40.0-44.9, adult Z68.41 ; Mild episode of recurrent major depressive disorder F33.0 and Generalized anxiety disorder F41.1 [facility] [id number] [place] [address] 50660- 3670 Jul, Fibromyalgia M79.7 [facility] [id number] [place] [address] 05045- 5862 Jun, Mild episode of recurrent major depressive disorder F33.0 and Generalized anxiety disorder F41.1 [facility] [address] [place] [address] 12389- 3420 Jun, Fibromyalgia M79.7 [facility] [id number] [place] [address] 22682- 7116 Jun, Generalized anxiety disorder F41.1 and Mild episode of recurrent major depressive disorder F33.0 [facility] [id number] [place] [address] 71903- 9035 Jun, Generalized anxiety disorder F41.1 and Mild episode of recurrent major depressive disorder F33.0 [facility] [id number] [place] [address] 66878- 9325 Jun, Generalized anxiety disorder F41.1 and Mild episode of recurrent major depressive disorder F33.0 [facility] [id number] [place] [address] 57055- 0624 Jun, [facility] [id number] [place] [address] 99504- 0246 Jun, Generalized anxiety disorder F41.1 and Mild episode of recurrent major depressive disorder F33.0 [facility] [address] [place] [address] 00177- 9602 May, Fibromyalgia M79.7 [facility] [address] [place] [address] 44820- 6866 May, Generalized anxiety disorder F41.1 and Mild episode of recurrent major depressive disorder F33.0 [facility] [address], [place] [address] May, Mixed hyperlipidemia E78.2 ; Arthritis M19.90 ; Reactive depression F32.9 and Hypothyroidism, unspecified type E03.9 [facility] [address], [place] [address] May, Arthritis M19.90 ; Reactive depression F32.9 ; Mixed hyperlipidemia E78.2 and Hypothyroidism, unspecified type E03.9 [facility] [id number] [place] [address] 70759 2549 Apr, Fibromyalgia M79.7 [facility] [id number] [place] [address] 71230 2546 Apr, [facility] [id number] [place] [address] 40438 2546 Apr, Fibromyalgia M79.7 [facility] [address] [address]96 2546 Mar, Fibromyalgia M79.7 [facility] [address] 56531- 3326 Mar, [facility] [id number] [place] [address] 00155 2546 Mar, Fibromyalgia M79.7 [facility] [address] 97183 2543 Mar, [facility] [id number] [place] [address] 18196 2548 Feb, Reflex sympathetic dystrophy G90.50 ; Right arm pain M79.601 and Fibromyalgia M79.7 [facility] [id number] [place] [address] 92354- 2546 Feb, [facility] [id number] [place] [address] 10781 2546 Feb, Anxiety F41.9 [facility] [id number] [place] [address] 95212 2546 Feb, Fibromyalgia M79.7 [facility] [id number] [place] [address] 95435 2546 Feb, [facility] [id number] [place] [address] 55376 2546 Feb, [facility] [id number] [place] [address] 40649- 8580 Jan, Temporal headache R51 [facility] [id number] [place] [address] 94412- 2290 Jan, Fibromyalgia M79.7 [facility] [id number] [place] [address] 56261- 2721 Dec, Fibromyalgia M79.7 [facility] [address] 18220- 3243 Nov, Peroneal tendonitis, unspecified laterality M76.70 and Plantar fasciitis, bilateral M72.2 [facility] [id number] [place] [address] 91575- 3655 Nov, Fibromyalgia M79.7 [facility] [id number] [place] [address] 25364- 7359 October, Fibromyalgia M79.7 [facility] [address] 69865- 0746 October, Plantar fasciitis, bilateral M72.2 and Peroneal tendonitis, unspecified laterality M76.70 [facility] [id number] [place] [address] 03390- 7722 October, Fibromyalgia M79.7 [facility] [id number] [place] [address] 66021- 8342 Sep, Anxiety F41.9 [facility] [address] 64613- 4728 Aug, Anxiety F41.9 and Adjustment disorder with anxiety F43.22 [facility] [id number] [place] [address] 89806- 2581 Aug, Pain of left foot M79.672 [facility] [address] 29421- 8474 Aug, Pain of left foot M79.672 and Pain in right foot M79.671 [facility] [id number] [place] [address] 11681- 1636 Aug, Arthritis M19.90 ; Reactive depression F32.9 ; Fibromyalgia M79.7 ; Rosacea L71.9 ; Pain in right foot M79.671 and Pain of left foot M79.672 [facility] [id number] [place] [address] 74502- 9531 Aug, Anxiety F41.9 ; Adjustment disorder with anxiety F43.22 and Reactive depression F32.9 [facility] [address] 17102- 9764 14 Aug, 2016 Right elbow pain M25.521 [facility] [address] 89778- 6277 Aug, Plantar wart of right foot B07.0 and Actinic keratosis L57.0 [facility] [id number] [place] [address] 98339- 5424 Aug, Fibromyalgia M79.7 [facility] [id number] [place] [address] 55989- 2699 Jul, Arthritis M19.90 ; Hypothyroidism, unspecified type E03.9 ; Reactive depression F32.9 and Venous insufficiency I87.2 [facility] [id number] [place] [address] 24793- 0355 Jul, Gastroesophageal reflux disease, esophagitis presence not specified K21.9 [facility] [id number] [place] [address] 23397- 0527 Jul, Reflex sympathetic dystrophy G90.50 [facility] [address] 72804- 0376 Jul, Anxiety F41.9 ; Adjustment disorder with anxiety F43.22 and Reactive depression F32.9 [facility] [id number] [place] [address] 49512- 3664 Jul, [facility] [address] 80176- 1851 Jul, Right elbow pain M25.521 [facility] [address] 87195- 9115 Jun, Fibromyalgia M79.7 [facility] [address] 45289- 3970 Jun, Anxiety F41.9 ; Adjustment disorder with anxiety F43.22 and Reactive depression F32.9 [place] [address] 55750- 9109 Jun, [facility] [address] 34055- 8985 Jun, Atypical chest pain R07.89 and Adjustment disorder with anxiety F43.22 [place] [address] [id number] Jun, Chest pain, unspecified type R07.9 [place] [address] 58341- 4003 Jun, Fibromyalgia M79.7 [facility] [address] 22088- 6581 May, Anxiety F41.9 [facility] [address] 00966- 2332 14 May, 2016 [facility] [address] 01063- 4339 May, Right elbow pain M25.521 [facility] [address] 81475- 8207 Apr, Reflex sympathetic dystrophy G90.50 and Encounter for immunization Z23 [facility] [facility] [address] 52767- 1373 Apr, [facility] [address] 96832- 2418 14 Mar, 2016 [facility] [address] 68030- 8488 Feb, [facility] [address], [place] [address]- 4262 Feb, [facility] [id number] [place] [address] 21076- 1169 Jan, [facility] [id number] [place] [address] 92434- 9691 Jan, Right elbow pain M25.521 and Right wrist pain M25.531 [facility] [address] [place] [address] 28620- 2741 Jan, [facility] [id number] [place] [address] 17800- 1847 Dec, Seborrheic keratoses L82.1 [facility] [id number] [place] [address] 32952- 4758 Dec, [facility] [address] [place] [address] 29264- 2705 Dec, [facility] [address] [place] [address] 89602- 2462 Dec, [facility] [id number] [place] [address] 50034- 0336 Dec, Fibromyalgia M79.7 and Hypothyroidism, unspecified type E03.9 [facility] [address] [address]- 3907 Dec, Seborrheic keratoses L82.1 [facility] [address], [place] [address]- 2759 Dec, [facility] [id number], [place] [address]- 1068 Dec, [facility] [id number], [place] [address]- 7078 Nov, Sebaceous cyst L72.3 [facility] [id number] [address]- 8616 October, Breast cancer screening Z12.39 [facility] [address] [facility] [id number] [address]- [address] October, Fibromyalgia M79.7 ; Hypothyroidism, unspecified type E03.9 and Reflex sympathetic dystrophy G90.50 [facility] [address] [facility] [id number] [place] [address]- 4438 October, Reflex sympathetic dystrophy G90.50 ; Fibromyalgia M79.7 and Hypothyroidism, unspecified type E03.9 IMMUNIZATIONS No Known Immunizations SOCIAL HISTORY Never Assessed REASON FOR VISIT Hydrocodone 05/19 PLAN OF CARE VITAL SIGNS MEDICATIONS Medication Instructions Dosage Frequency Start Date End Date Duration Status Hydrocodone-Acetaminophen 7.5-325 MG Orally 3 times a day 1 tablet 8h Apr, 28 days Active RESULTS No Results PROCEDURES [...]
--- OUTSIDE RECORDS SUMMARY | 2018-03-07 18:09 | XMS REPORT ---
Author Author JOE BAI [facility] Address [address] [place] [address] Care Team Providers Care Academic Interventionist Name Role Phone JOE BAI Unavailable PROBLEMS Type Condition ICD9-CM Code SXV02-OP Code Onset Dates Condition Status SNOMED Code Problem Arthritis M19.90 Active 0412905 Problem Gastroesophageal reflux disease, esophagitis presence not specified K21.9 Active 404728353 Problem Reactive depression F32.9 Active 26879335 Problem Abnormal laboratory test R89.9 Active 911788806 Problem Mild episode of recurrent major depressive disorder F33.0 Active 554572482 Problem Rosacea L71.9 Active 146024124 Problem Plantar wart of right foot B07.0 Active 59958439 Problem Generalized anxiety disorder F41.1 Active 68087060 Problem Mixed hyperlipidemia E78.2 Active 216952728 Problem Fibromyalgia M79.7 Active 783409774 Problem Right elbow pain M25.521 Active 60656875 Problem Hypothyroidism, unspecified type E03.9 Active 11355884 Problem Right wrist pain M25.531 Active 90059211 Problem Reflex sympathetic dystrophy G90.50 Active 08907533 Problem Venous insufficiency I87.2 Active 71863047 ALLERGIES No Information ENCOUNTERS Encounter Location Date Diagnosis [facility] [id number] [address] Dec, [facility] [address] [address] Nov, [facility] [id number] [place] [address] 79605- 9927 October, [facility] [address] [address] October, Fibromyalgia M79.7 [facility] [id number] [place] [address] 68341- 4510 October, [facility] [id number] [place] [address] 34085- 2785 October, Generalized anxiety disorder F41.1 and Mild episode of recurrent major depressive disorder F33.0 [facility] [id number] [place] [address] 31840- 6690 October, [facility] [id number] [place] [address] 87207- 0359 Sep, Gastroesophageal reflux disease, esophagitis presence not specified K21.9 and Abnormal laboratory test R89.9 [facility] [id number] [place] [address] 56236- 7397 Sep, Fibromyalgia M79.7 [facility] [id number] [place] [address] 96817- 5327 Sep, Generalized anxiety disorder F41.1 and Mild episode of recurrent major depressive disorder F33.0 [facility] [id number] [place] [address] 37488- 3196 Sep, Epigastric pain R10.13 [facility] [id number] [place] [address] 52074- 5411 Sep, Mild episode of recurrent major depressive disorder F33.0 and Generalized anxiety disorder F41.1 [facility] [id number] [place] [address] 44162- 3238 Sep, Abnormal laboratory test R89.9 [facility] [id number] [place] [address] 63956- 3168 Sep, Generalized anxiety disorder F41.1 and Mild episode of recurrent major depressive disorder F33.0 [facility] [id number] [place] [address] 33036- 4813 Aug, Epigastric pain R10.13 and Encounter for therapeutic drug level monitoring Z51.81 [facility] [id number] [place] [address] 78824 -9686 Aug, Epigastric pain R10.13 and Gastro-esophageal reflux disease without esophagitis K21.9 [facility] [id number] [place] [address] 47686- 4599 Aug, [facility] [id number] [place] [address] 27686- 3015 Aug, Epigastric pain R10.13 [facility] [id number] [place] [address] 12509- 1864 Aug, Fibromyalgia M79.7 [facility] [id number] [place] [address] 12590- 8875 Aug, [facility] [id number] [place] [address] 62037- 6283 Aug, Generalized anxiety disorder F41.1 and Mild episode of recurrent major depressive disorder F33.0 [facility] [address] 84730- 8724 Aug, Epigastric pain R10.13 ; Reflex sympathetic dystrophy G90.50 and Arthritis M19.90 [facility] [id number] [place] [address] 32564- 5858 Jul, Generalized anxiety disorder F41.1 and Mild episode of recurrent major depressive disorder F33.0 [facility] [id number] [place] [address] 16907- 9318 Jul, BMI 40.0-44.9, adult Z68.41 ; Mild episode of recurrent major depressive disorder F33.0 and Generalized anxiety disorder F41.1 [facility] [id number] [place] [address] 81603- 0791 Jul, Fibromyalgia M79.7 [facility] [id number] [place] [address] 41445- 7403 Jun, Mild episode of recurrent major depressive disorder F33.0 and Generalized anxiety disorder F41.1 [facility] [id number] [place] [address] 99867- 7130 Jun, Fibromyalgia M79.7 [facility] [address] [address] Jun, Generalized anxiety disorder F41.1 and Mild episode of recurrent major depressive disorder F33.0 [facility] [address] [address] 236[address] Jun, Generalized anxiety disorder F41.1 and Mild episode of recurrent major depressive disorder F33.0 [facility] [id number] [place] [address] 86549- 1313 Jun, Generalized anxiety disorder F41.1 and Mild episode of recurrent major depressive disorder F33.0 [facility] [id number] [place] [address] 13666- 5313 Jun, [facility] [id number] [place] [address] 53153- 4732 Jun, Generalized anxiety disorder F41.1 and Mild episode of recurrent major depressive disorder F33.0 [facility] [address] [address] May, Fibromyalgia M79.7 [facility] [id number] [place] [address] 56892- 7755 May, Generalized anxiety disorder F41.1 and Mild episode of recurrent major depressive disorder F33.0 [facility] [id number] [place] [address] 32777- 7533 May, Mixed hyperlipidemia E78.2 ; Arthritis M19.90 ; Reactive depression F32.9 and Hypothyroidism, unspecified type E03.9 [facility] [id number] [place] [address] 66263- 5909 May, Arthritis M19.90 ; Reactive depression F32.9 ; Mixed hyperlipidemia E78.2 and Hypothyroidism, unspecified type E03.9 [facility] [address] [address] Apr, Fibromyalgia M79.7 [facility] [id number] [place] [address] 07421- 6660 Apr, [facility] [address] 09288- 6263 Apr, Fibromyalgia M79.7 [facility] [id number] [place] [address] 81296 2546 Mar, Fibromyalgia M79.7 [facility] [address] [address] 2546 Mar, [facility] [id number] [place] [address] 00442 2541 Mar, Fibromyalgia M79.7 [facility] [id number] [place] [address] 80955- 0753 Mar, [facility] [id number] [place] [address] 49672- 5756 Feb, Reflex sympathetic dystrophy G90.50 ; Right arm pain M79.601 and Fibromyalgia M79.7 [facility] [id number] [place] [address] 07720- 9777 Feb, [facility] [id number] [place] [address] 72261- 5608 Feb, Anxiety F41.9 [facility] [id number] [place] [address] 52992- 2547 Feb, Fibromyalgia M79.7 [facility] [id number] [place] [address] 56418 2549 Feb, [facility] [id number] [place] [address] 46973- 2546 Feb, [facility] [id number] [place] [address] 90644- 8830 Jan, Temporal headache R51 [facility] [id number] [place] [address] 03810- 9645 Jan, Fibromyalgia M79.7 [facility] [id number] [place] [address] 35429- 7471 Dec, Fibromyalgia M79.7 [facility] [address] 69985- 0974 Nov, Peroneal tendonitis, unspecified laterality M76.70 and Plantar fasciitis, bilateral M72.2 [facility] [address] 17979- 0803 Nov, Fibromyalgia M79.7 [address] [address] 80867- 2058 October, Fibromyalgia M79.7 [facility] [address] 76156- 3332 October, Plantar fasciitis, bilateral M72.2 and Peroneal tendonitis, unspecified laterality M76.70 [facility] [facility] [address] 55120- 6378 October, Fibromyalgia M79.7 [facility] [id number] [place] [address] 63853- 8263 Sep, Anxiety F41.9 [facility] [address] 55486- 3747 Aug, Anxiety F41.9 and Adjustment disorder with anxiety F43.22 [facility] [id number] [place] [address] 66453- 7524 Aug, Pain of left foot M79.672 [facility] [id number] [place] [address] 64590- 6282 Aug, Pain of left foot M79.672 and Pain in right foot M79.671 [facility] [id number] [place] [address] 85495- 4930 Aug, Arthritis M19.90 ; Reactive depression F32.9 ; Fibromyalgia M79.7 ; Rosacea L71.9 ; Pain in right foot M79.671 and Pain of left foot M79.672 [address] [address] [address]- 1230 17 Aug, 2016 Anxiety F41.9 ; Adjustment disorder with anxiety F43.22 and Reactive depression F32.9 [place] [address] 26827- 5220 14 Aug, 2016 Right elbow pain M25.521 [place] [address] 75986- 3656 07 Aug, 2016 Plantar wart of right foot B07.0 and Actinic keratosis L57.0 [place] [address] 83622- 2668 Aug, Fibromyalgia M79.7 [facility] [facility] [address] 15306- 3966 Jul, Arthritis M19.90 ; Hypothyroidism, unspecified type E03.9 ; Reactive depression F32.9 and Venous insufficiency I87.2 [place] [address] 41354- 1378 Jul, Gastroesophageal reflux disease, esophagitis presence not specified K21.9 [facility] [address] 23813- 8909 Jul, Reflex sympathetic dystrophy G90.50 [place] [facility] [address] 03811- 5333 17 Jul, 2016 Anxiety F41.9 ; Adjustment disorder with anxiety F43.22 and Reactive depression F32.9 [place] [address] 91340- 5557 Jul, [place] [address] 19025- 4521 03 Jul, 2016 Right elbow pain M25.521 [address] [address] 07680- 2229 Jun, Fibromyalgia M79.7 [facility] [address] 71454- 1932 Jun, Anxiety F41.9 ; Adjustment disorder with anxiety F43.22 and Reactive depression F32.9 [facility] [address] 85755- 0202 Jun, [facility] [address] 15215- 4448 Jun, Atypical chest pain R07.89 and Adjustment disorder with anxiety F43.22 [facility] [address] [id number] Jun, Chest pain, unspecified type R07.9 [facility] [address] 15578- 9288 Jun, Fibromyalgia M79.7 [facility] [address] 66591- 4835 May, Anxiety F41.9 [facility] [address] 55183- 6276 May, [facility] [address] 18455- 1729 May, Right elbow pain M25.521 [place] [address] 43077- 3832 Apr, Reflex sympathetic dystrophy G90.50 and Encounter for immunization Z23 [facility] [address] 58090- 6645 Apr, [facility] [address] 11570- 6878 14 Mar, 2016 [facility] [address] 50761- 9960 Feb, [facility] [address] 73849- 7302 16 Feb, 2016 [facility] [address] [address]- 6536 Jan, [facility] [id number] [place] [address] 02457- 8415 Jan, Right elbow pain M25.521 and Right wrist pain M25.531 [facility] [id number] [place] [address] 45700- 0893 Jan, [facility] [id number] [place] [address] 93419 2541 Dec, Seborrheic keratoses L82.1 [facility] [id number] [place] [address] 44894- 9810 Dec, [facility] [id number] [place] [address] 03931- 9734 Dec, [facility] [id number] [place] [address] 65762- 7452 Dec, [facility] [id number] [place] [address] 37313- 0174 Dec, Fibromyalgia M79.7 and Hypothyroidism, unspecified type E03.9 [facility] [id number] [place] [address] 98250- 8508 Dec, Seborrheic keratoses L82.1 [facility] [id number] [place] [address] 52071- 5826 Dec, [facility] [id number] [place] [address] 45915- 2546 Dec, [facility] [id number] [place] [address] 38646- 9709 Nov, Sebaceous cyst L72.3 [facility] [id number] [place] [address] 62090- 0773 October, Breast cancer screening Z12.39 [facility] [id number] [place] [address] 15111- 5466 October, Fibromyalgia M79.7 ; Hypothyroidism, unspecified type E03.9 and Reflex sympathetic dystrophy G90.50 [facility] [address] [facility] [id number] [place] [address]- 2881 October, Reflex sympathetic dystrophy G90.50 ; Fibromyalgia M79.7 and Hypothyroidism, unspecified type E03.9 IMMUNIZATIONS No Known Immunizations SOCIAL HISTORY Never Assessed REASON FOR VISIT Hydrocodone 04/21 PLAN OF CARE VITAL SIGNS MEDICATIONS Medication [...]
--- OUTSIDE RECORDS SUMMARY | 2018-03-07 18:10 | XMS REPORT ---
Author Author FRANK CHAPMAN Organization [facility] Address [address] [place] [address] Care Team Providers Care Prehemmer Name Role Phone FRANK CHAPMAN Unavailable PROBLEMS Type Condition ICD9-CM Code [id number] Code Onset Dates Condition Status SNOMED Code Problem Arthritis M19.90 Active 5069466 Problem Gastroesophageal reflux disease, esophagitis presence not specified K21.9 Active 460162578 Problem Reactive depression F32.9 Active 43527572 Problem Abnormal laboratory test R89.9 Active 207536612 Problem Mild episode of recurrent major depressive disorder F33.0 Active 708314114 Problem Rosacea L71.9 Active 866020700 Problem Plantar wart of right foot B07.0 Active 60715611 Problem Generalized anxiety disorder F41.1 Active 92451197 Problem Mixed hyperlipidemia E78.2 Active 287357086 Problem Fibromyalgia M79.7 Active 062559444 Problem Right elbow pain M25.521 Active 16391958 Problem Hypothyroidism, unspecified type E03.9 Active 15941998 Problem Right wrist pain M25.531 Active 53706102 Problem Reflex sympathetic dystrophy G90.50 Active 33487546 Problem Venous insufficiency I87.2 Active 21510425 ALLERGIES No Information ENCOUNTERS Encounter Location Date Diagnosis [facility] [id number], [place] [address] Dec, [facility] [address] [address] Dec, [facility] [id number] [place] [address] 65527- 7789 Nov, [facility] [address], [place] [address] 15 Nov, 2017 [facility] [id number] [place] [address] 91226- 3170 Nov, [facility] [id number] [place] [address] 94765- 1328 Nov, Generalized anxiety disorder F41.1 and Mild episode of recurrent major depressive disorder F33.0 [facility] [id number] [place] [address] 71625- 4436 Nov, [facility] [id number] [place] [address] 67565- 0755 October, Generalized anxiety disorder F41.1 and Mild episode of recurrent major depressive disorder F33.0 [facility] [id number] [place] [address] 67378- 7463 October, Fibromyalgia M79.7 [facility] [id number] [place] [address] 09100- 5204 October, [place] [id number] [place] [address] 43750- 4397 October, Generalized anxiety disorder F41.1 and Mild episode of recurrent major depressive disorder F33.0 [place] [id number] [place] [address] 38134- 0739 October, [facility] [id number] [place] [address] 43670- 2885 Sep, Gastroesophageal reflux disease, esophagitis presence not specified K21.9 and Abnormal laboratory test R89.9 [facility] [id number] [place] [address] 53035- 1662 Sep, Fibromyalgia M79.7 [facility] [id number] [place] [address] 16438- 7631 Sep, Generalized anxiety disorder F41.1 and Mild episode of recurrent major depressive disorder F33.0 [facility] [id number] [place] [address] 39577- 7228 Sep, Epigastric pain R10.13 [facility] [id number] [place] [address] 47154- 3912 Sep, Mild episode of recurrent major depressive disorder F33.0 and Generalized anxiety disorder F41.1 [facility] [address] [address]- 4474 Sep, Abnormal laboratory test R89.9 [place] [address] 16133- 8617 Sep, Generalized anxiety disorder F41.1 and Mild episode of recurrent major depressive disorder F33.0 [place] [address] 27227- 9935 Aug, Epigastric pain R10.13 and Encounter for therapeutic drug level monitoring Z51.81 [facility] [address] [address] -[address]482 Aug, Epigastric pain R10.13 and Gastro-esophageal reflux disease without esophagitis K21.9 [place] [address] 39007- 4755 Aug, [place] [address] 00887- 5096 Aug, Epigastric pain R10.13 [place] [address] 56293- 1060 Aug, Fibromyalgia M79.7 [place] [address] 37524- 0379 14 Aug, 2017 [place] [address] 56763- 1312 Aug, Generalized anxiety disorder F41.1 and Mild episode of recurrent major depressive disorder F33.0 [place] [address] 80879- 9098 08 Aug, 2017 Epigastric pain R10.13 ; Reflex sympathetic dystrophy G90.50 and Arthritis M19.90 [place] [address] 73145- 5062 Jul, Generalized anxiety disorder F41.1 and Mild episode of recurrent major depressive disorder F33.0 [facility] [address] [address] 1610 Jul, BMI 40.0-44.9, adult Z68.41 ; Mild episode of recurrent major depressive disorder F33.0 and Generalized anxiety disorder F41.1 [facility] [id number] [place] [address] 92655- 4236 Jul, Fibromyalgia M79.7 [facility] [id number] [place] [address] 56514- 5476 Jun, Mild episode of recurrent major depressive disorder F33.0 and Generalized anxiety disorder F41.1 [facility] [id number] [place] [address] 97597- 0006 Jun, Fibromyalgia M79.7 [facility] [id number] [place] [address] 69970- 5895 Jun, Generalized anxiety disorder F41.1 and Mild episode of recurrent major depressive disorder F33.0 [facility] [id number] [place] [address] 51247- 2717 Jun, Generalized anxiety disorder F41.1 and Mild episode of recurrent major depressive disorder F33.0 [facility] [id number] [place] [address] 12822- 3312 Jun, Generalized anxiety disorder F41.1 and Mild episode of recurrent major depressive disorder F33.0 [facility] [address] [address]- 15[address] Jun, [facility] [id number] [address] 6734 Jun, Generalized anxiety disorder F41.1 and Mild episode of recurrent major depressive disorder F33.0 [facility] [id number], [place] [address] 9302 May, Fibromyalgia M79.7 [facility] [id number] [place] [address] 37733- 2602 May, Generalized anxiety disorder F41.1 and Mild episode of recurrent major depressive disorder F33.0 [facility] [address] 42576- 8601 May, Mixed hyperlipidemia E78.2 ; Arthritis M19.90 ; Reactive depression F32.9 and Hypothyroidism, unspecified type E03.9 [facility] [address] 36279- 2699 May, Arthritis M19.90 ; Reactive depression F32.9 ; Mixed hyperlipidemia E78.2 and Hypothyroidism, unspecified type E03.9 [place] [address] 78361- 6726 Apr, Fibromyalgia M79.7 [facility] [address] 55468- 6234 Apr, [facility] [address] 82823- 6082 Apr, Fibromyalgia M79.7 [facility] [id number] [place] [address] 58881- 9329 Mar, Fibromyalgia M79.7 [facility] [address] 04695- 1935 Mar, [facility] [id number] [place] [address] 25671- 1131 Mar, Fibromyalgia M79.7 [facility] [address] 69837- 7479 Mar, [facility] [address] 20053- 4627 Feb, Reflex sympathetic dystrophy G90.50 ; Right arm pain M79.601 and Fibromyalgia M79.7 [facility] [id number] [place] [address] 96241- 8926 Feb, [facility] [address] 22857- 1932 07 Feb, 2017 Anxiety F41.9 [facility] [id number] [place] [address] 66963- 5987 06 Feb, 2017 Fibromyalgia M79.7 [facility] [id number] [place] [address] 09987- 2276 Feb, [facility] [id number] [place] [address] 02336- 1658 Feb, [facility] [id number] [place] [address] 40117- 3339 Jan, Temporal headache R51 [facility] [address] 76285- 9820 Jan, Fibromyalgia M79.7 [facility] [id number] [place] [address] 39395- 7708 Dec, Fibromyalgia M79.7 [facility] [id number] [place] [address] 95939- 1754 Nov, Peroneal tendonitis, unspecified laterality M76.70 and Plantar fasciitis, bilateral M72.2 [facility] [id number] [place] [address] 83932- 4614 Nov, Fibromyalgia M79.7 [facility] [id number] [place] [address] 66560- 1238 October, Fibromyalgia M79.7 [facility] [id number] [place] [address] 37715- 0715 October, Plantar fasciitis, bilateral M72.2 and Peroneal tendonitis, unspecified laterality M76.70 [facility] [id number] [place] [address] 64171- 3875 October, Fibromyalgia M79.7 [facility] [id number] [place] [address] 36327- 0365 Sep, Anxiety F41.9 [facility] [address] [place] [address]- 6689 Aug, Anxiety F41.9 and Adjustment disorder with anxiety F43.22 [place] [address] 08498- 2176 Aug, Pain of left foot M79.672 [facility] [id number] [place] [address] 08092- 3678 Aug, Pain of left foot M79.672 and Pain in right foot M79.671 [place] [address] 34075- 7222 Aug, Arthritis M19.90 ; Reactive depression F32.9 ; Fibromyalgia M79.7 ; Rosacea L71.9 ; Pain in right foot M79.671 and Pain of left foot M79.672 [place] [id number] [place] [address] 33929- 1334 Aug, Anxiety F41.9 ; Adjustment disorder with anxiety F43.22 and Reactive depression F32.9 [place] [id number] [place] [address] 51457- 1457 Aug, Right elbow pain M25.521 [place] [id number] [place] [address] 06386- 2492 Aug, Plantar wart of right foot B07.0 and Actinic keratosis L57.0 [place] [id number] [place] [address] 10538- 8981 Aug, Fibromyalgia M79.7 [place] [id number] [place] [address] 25489- 5724 Jul, Arthritis M19.90 ; Hypothyroidism, unspecified type E03.9 ; Reactive depression F32.9 and Venous insufficiency I87.2 [place] [id number] [place] [address] 89947- 4519 Jul, Gastroesophageal reflux disease, esophagitis presence not specified K21.9 [place] [address] 70257- 3241 17 Jul, 2016 Reflex sympathetic dystrophy G90.50 [place] [address] 58574- 8205 17 Jul, 2016 Anxiety F41.9 ; Adjustment disorder with anxiety F43.22 and Reactive depression F32.9 [place] [address] 11241- 2375 Jul, [place] [address] 17424- 1451 Jul, Right elbow pain M25.521 [place] [address] 52852- 2228 Jun, Fibromyalgia M79.7 [place] [address] 67848- 4921 Jun, Anxiety F41.9 ; Adjustment disorder with anxiety F43.22 and Reactive depression F32.9 [place] [address] 30463- 4589 Jun, [place] [address] 72484- 6688 Jun, Atypical chest pain R07.89 and Adjustment disorder with anxiety F43.22 [place] [address] [id number] Jun, Chest pain, unspecified type R07.9 [place] [address] 51137- 2098 Jun, Fibromyalgia M79.7 [place] [address] 29656- 1125 May, Anxiety F41.9 [place] [address] 02439- 6223 May, [facility] [address] 89583- 3103 May, Right elbow pain M25.521 [facility] [id number] [place] [address] 55826- 1863 Apr, Reflex sympathetic dystrophy G90.50 and Encounter for immunization Z23 [facility] [id number] [place] [address] 86617- 9685 Apr, [facility] [address] 11252- 2055 Mar, [facility] [id number] [place] [address] 28372- 3524 Feb, [facility] [address] 13314- 9894 Feb, [facility] [id number] [place] [address] 49086- 2753 Jan, [facility] [address] 83432- 4318 Jan, Right elbow pain M25.521 and Right wrist pain M25.531 [facility] [id number] [place] [address] 74547- 8811 Jan, [facility] [id number] [place] [address] 37229- 8754 Dec, Seborrheic keratoses L82.1 [facility] [id number] [place] [address] 67322- 2373 Dec, [facility] [id number] [place] [address] 83803- 3277 Dec, [facility] [id number] [place] [address] 24212- 0690 Dec, [facility] [id number] [place] [address] 36087- 7019 Dec, Fibromyalgia M79.7 and Hypothyroidism, unspecified type E03.9 [facility] [address] [address] [address]- 4344 Dec, Seborrheic keratoses L82.1 [facility] [id number] [place] [address] 52384- 0249 Dec, [facility] [id number] [place] [address] 24094- 3345 Dec, [place] [id number] [place] [address] 46394- 8072 Nov, Sebaceous cyst L72.3 [place] [id number] [place] [address] 03175- 6119 October, Breast cancer screening Z12.39 [place] [id number] [place] [address] 72399- 7125 October, Fibromyalgia M79.7 ; Hypothyroidism, unspecified type E03.9 and Reflex sympathetic dystrophy G90.50 [place] [address] [place] [address]- 4914 October, Reflex sympathetic dystrophy G90.50 ; Fibromyalgia M79.7 and Hypothyroidism, unspecified type E03.9 IMMUNIZATIONS No Known Immunizations SOCIAL HISTORY Never Assessed REASON FOR VISIT BH f/u, Anxiety and depresson. PLAN OF CARE Activity Details Follow Up 1 Week Reason:anxiety & depreession VITAL SIGNS MEDICATIONS Unknown Medications RESULTS No Results PROCEDURES Procedure Date Ordered Result Body Site [facility] VISIT MENTAL HEALTH ESTAB PT Jun 28, 2017 Psychotherapy, patient &/family, 45 minutes, established patient Jun 28, 2017 INSTRUCTIONS MEDICATIONS ADMINISTERED No Known Medications [...]
--- OUTSIDE RECORDS SUMMARY | 2018-03-07 18:11 | XMS REPORT ---
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 Phone JOE BAI Unavailable PROBLEMS Type Condition ICD9-CM Code [id number] Code Onset Dates Condition Status SNOMED Code Problem Arthritis M19.90 Active 3338691 Problem Gastroesophageal reflux disease, esophagitis presence not specified K21.9 Active 854950502 Problem Reactive depression F32.9 Active 38133735 Problem Abnormal laboratory test R89.9 Active 950955485 Problem Mild episode of recurrent major depressive disorder F33.0 Active 126440937 Problem Rosacea L71.9 Active 728438255 Problem Plantar wart of right foot B07.0 Active 04569069 Problem Generalized anxiety disorder F41.1 Active 60671356 Problem Mixed hyperlipidemia E78.2 Active 815631024 Problem Fibromyalgia M79.7 Active 902788650 Problem Right elbow pain M25.521 Active 28754100 Problem Hypothyroidism, unspecified type E03.9 Active 46682981 Problem Right wrist pain M25.531 Active 14114023 Problem Reflex sympathetic dystrophy G90.50 Active 99804748 Problem Venous insufficiency I87.2 Active 15750133 ALLERGIES No Information ENCOUNTERS Encounter Location Date Diagnosis [facility] [id number], [place] [address] Dec, [facility] [id number], [place] [address] Dec, [facility] [id number] [place] [address] 63890- 5875 Nov, [facility] [id number], [place] [address] Nov, Generalized anxiety disorder F41.1 and Mild episode of recurrent major depressive disorder F33.0 [facility] [facility] [id number] [place] [address] 48610- 0216 Nov, [facility] [id number] [place] [address] 70196- 8616 October, Generalized anxiety disorder F41.1 and Mild episode of recurrent major depressive disorder F33.0 [facility] [id number] [place] [address] 28371- 9763 October, Fibromyalgia M79.7 [facility] [id number] [place] [address] 19646- 8972 October, [place] [facility] [id number] [place] [address] 02578- 9758 October, Generalized anxiety disorder F41.1 and Mild episode of recurrent major depressive disorder F33.0 [place] [id number] [place] [address] 28096- 0730 October, [facility] [id number] [place] [address] 05477- 9883 Sep, Gastroesophageal reflux disease, esophagitis presence not specified K21.9 and Abnormal laboratory test R89.9 [place] [id number] [place] [address] 80774- 2817 Sep, Fibromyalgia M79.7 [facility] [id number] [place] [address] 31914- 6057 Sep, Generalized anxiety disorder F41.1 and Mild episode of recurrent major depressive disorder F33.0 [facility] [id number] [place] [address] 90509- 1800 Sep, Epigastric pain R10.13 [place] [id number] [place] [address] 74849- 1066 10 Sep, 2017 Mild episode of recurrent major depressive disorder F33.0 and Generalized anxiety disorder F41.1 [place] [id number] [place] [address] 36598- 7954 Sep, Abnormal laboratory test R89.9 [facility] [id number] [place] [address] 63281- 1094 02 Sep, 2017 Generalized anxiety disorder F41.1 and Mild episode of recurrent major depressive disorder F33.0 [facility] [id number] [place] [address] 08211- 8996 29 Aug, 2017 Epigastric pain R10.13 and Encounter for therapeutic drug level monitoring Z51.81 [facility] [id number] [place] [address] 90280 -0126 Aug, Epigastric pain R10.13 and Gastro-esophageal reflux disease without esophagitis K21.9 [place] [address] 62807- 8350 22 Aug, 2017 [place] [address] 95690- 9029 Aug, Epigastric pain R10.13 [place] [address] 48986- 5579 Aug, Fibromyalgia M79.7 [place] [address] 26422- 4794 14 Aug, 2017 [place] [address] 50347- 4443 14 Aug, 2017 Generalized anxiety disorder F41.1 and Mild episode of recurrent major depressive disorder F33.0 [place] [id number] [place] [address] 55472- 7274 08 Aug, 2017 Epigastric pain R10.13 ; Reflex sympathetic dystrophy G90.50 and Arthritis M19.90 [place] [id number] [place] [address] 64040- 1409 Jul, Generalized anxiety disorder F41.1 and Mild episode of recurrent major depressive disorder F33.0 [facility] [id number] [place] [address] 81192- 6478 Jul, BMI 40.0-44.9, adult Z68.41 ; Mild episode of recurrent major depressive disorder F33.0 and Generalized anxiety disorder F41.1 [facility] [id number], [place] [address] 2546 Jul, Fibromyalgia M79.7 [facility] [address] [place] [address] 69507 2546 Jun, Mild episode of recurrent major depressive disorder F33.0 and Generalized anxiety disorder F41.1 [facility] [id number] [place] [address] 54785 2546 Jun, Fibromyalgia M79.7 [facility] [id number] [place] [address] 03125 2546 Jun, Generalized anxiety disorder F41.1 and Mild episode of recurrent major depressive disorder F33.0 [facility] [id number] [place] [address] 18299 2546 Jun, Generalized anxiety disorder F41.1 and Mild episode of recurrent major depressive disorder F33.0 [facility] [id number] [place] [address] 07396 2549 Jun, Generalized anxiety disorder F41.1 and Mild episode of recurrent major depressive disorder F33.0 [facility] [address] [place] [address] 42383 2546 Jun, [facility] [address] [place] [address] 06889 2546 Jun, Generalized anxiety disorder F41.1 and Mild episode of recurrent major depressive disorder F33.0 [facility] [address], [place] [address] 2546 May, Fibromyalgia M79.7 [facility] [id number], [place] [address] 2546 May, Generalized anxiety disorder F41.1 and Mild episode of recurrent major depressive disorder F33.0 [facility] [address] [place] [address] 36431 2546 May, Mixed hyperlipidemia E78.2 ; Arthritis M19.90 ; Reactive depression F32.9 and Hypothyroidism, unspecified type E03.9 [facility] [address] 33724- 3341 May, Arthritis M19.90 ; Reactive depression F32.9 ; Mixed hyperlipidemia E78.2 and Hypothyroidism, unspecified type E03.9 [facility] [address] 37200- 2503 Apr, Fibromyalgia M79.7 [facility] [address] 87390- 7800 Apr, [facility] [address] 26564- 5457 Apr, Fibromyalgia M79.7 [facility] [address] 89856- 8088 Mar, Fibromyalgia M79.7 [facility] [address] 01205- 1269 Mar, [facility] [address] 15361- 1349 Mar, Fibromyalgia M79.7 [facility] [address] 02592- 3327 Mar, [facility] [address] 25459- 6166 Feb, Reflex sympathetic dystrophy G90.50 ; Right arm pain M79.601 and Fibromyalgia M79.7 [facility] [id number] [place] [address] 37262 2546 Feb, [facility] [address] 25210- 2546 Feb, Anxiety F41.9 [facility] [id number] [place] [address] 82952- 2546 Feb, Fibromyalgia M79.7 [facility] [id number] [place] [address] 89662- 1603 Feb, [facility] [address] 13312- 1114 Feb, [facility] [id number] [place] [address] 00152- 0311 Jan, Temporal headache R51 [facility] [address] 59655- 0896 Jan, Fibromyalgia M79.7 [facility] [id number] [place] [address] 18403- 0600 Dec, Fibromyalgia M79.7 [facility] [id number] [place] [address] 52052- 5314 Nov, Peroneal tendonitis, unspecified laterality M76.70 and Plantar fasciitis, bilateral M72.2 [place] [id number] [place] [address] 00828- 9309 Nov, Fibromyalgia M79.7 [facility] [id number] [place] [address] 19956- 0950 October, Fibromyalgia M79.7 [facility] [id number] [place] [address] 95948- 5926 October, Plantar fasciitis, bilateral M72.2 and Peroneal tendonitis, unspecified laterality M76.70 [place] [id number] [place] [address] 52257- 3217 October, Fibromyalgia M79.7 [facility] [id number] [place] [address] 17636- 2925 Sep, Anxiety F41.9 [place] [id number] [place] [address] 65372- 0906 Aug, Anxiety F41.9 and Adjustment disorder with anxiety F43.22 [place] [id number] [place] [address] 10442- 0455 Aug, Pain of left foot M79.672 [facility] [address] 05868- 2622 Aug, Pain of left foot M79.672 and Pain in right foot M79.671 [place] [address] 13758- 4731 Aug, Arthritis M19.90 ; Reactive depression F32.9 ; Fibromyalgia M79.7 ; Rosacea L71.9 ; Pain in right foot M79.671 and Pain of left foot M79.672 [place] [address] 52564- 4170 Aug, Anxiety F41.9 ; Adjustment disorder with anxiety F43.22 and Reactive depression F32.9 [place] [address] 67779- 7402 Aug, Right elbow pain M25.521 [place] [address] 52394- 8612 Aug, Plantar wart of right foot B07.0 and Actinic keratosis L57.0 [place] [address] 60611- 2221 Aug, Fibromyalgia M79.7 [address] [address] 65957- 3709 Jul, Arthritis M19.90 ; Hypothyroidism, unspecified type E03.9 ; Reactive depression F32.9 and Venous insufficiency I87.2 [address] [address] 66110- 6502 Jul, Gastroesophageal reflux disease, esophagitis presence not specified K21.9 [place] [address] 90008- 2234 Jul, Reflex sympathetic dystrophy G90.50 [place] [address] 47743- 5062 Jul, Anxiety F41.9 ; Adjustment disorder with anxiety F43.22 and Reactive depression F32.9 [place] [address] 12462- 6859 15 Jul, 2016 [facility] [address] 32455- 2048 03 Jul, 2016 Right elbow pain M25.521 [address] [address] 44273- 1468 Jun, Fibromyalgia M79.7 [address] [address] 08796- 6784 Jun, Anxiety F41.9 ; Adjustment disorder with anxiety F43.22 and Reactive depression F32.9 [place] [address] 86641- 3645 Jun, [place] [address] 16402- 2701 Jun, Atypical chest pain R07.89 and Adjustment disorder with anxiety F43.22 [place] [address] [id number] Jun, Chest pain, unspecified type R07.9 [place] [address] 02700- 0349 Jun, Fibromyalgia M79.7 [place] [address] 61901- 4277 May, Anxiety F41.9 [place] [address] 77835- 8968 May, [place] [address] 49291- 5781 May, Right elbow pain M25.521 [place] [address] 23845- 9202 Apr, Reflex sympathetic dystrophy G90.50 and Encounter for immunization Z23 [facility] [address], [place] [address]- 5701 Apr, [facility] [id number] [place] [address] 66093- 2936 14 Mar, 2016 [facility] [id number] [place] [address] 26542- 8058 Feb, [facility] [id number] [place] [address] 26352- 0745 Feb, [facility] [id number] [place] [address] 62655- 3542 Jan, [facility] [id number] [place] [address] 94161- 4515 Jan, Right elbow pain M25.521 and Right wrist pain M25.531 [facility] [id number] [place] [address] 27446- 5848 Jan, [facility] [id number] [place] [address] 65612- 8173 Dec, Seborrheic keratoses L82.1 [facility] [id number] [place] [address] 29069- 2247 Dec, [facility] [id number] [place] [address] 38944- 3242 Dec, [facility] [id number] [place] [address] 77684- 8293 Dec, [facility] [address] [place] [address] 15383- 9415 Dec, Fibromyalgia M79.7 and Hypothyroidism, unspecified type E03.9 [facility] [address], [place] [address]- 9371 Dec, Seborrheic keratoses L82.1 [facility] [id number] [place] [address] 51877- 1075 Dec, [facility] [address] [facility] [id number] [address]- [address]34 Dec, [facility] [address], [place] [address]- 0985 Nov, Sebaceous cyst L72.3 [place] [address], [place] [address]- 9034 October, Breast cancer screening Z12.39 [place] [address], [place] [address]- 2157 October, Fibromyalgia M79.7 ; Hypothyroidism, unspecified type E03.9 and Reflex sympathetic dystrophy G90.50 [place] [address], [place] [address]- 6929 October, Reflex sympathetic dystrophy G90.50 ; Fibromyalgia M79.7 and Hypothyroidism, unspecified type E03.9 IMMUNIZATIONS No Known Immunizations SOCIAL HISTORY Never Assessed REASON FOR VISIT Hydrocodone 06/16 PLAN OF CARE VITAL SIGNS MEDICATIONS Medication Instructions Dosage Frequency Start Date End Date Duration Status Hydrocodone-Acetaminophen 7.5-325 MG Orally 3 times a day 1 tablet 8h May, 28 days Active RESULTS No Results PROCEDURES [...]
--- OUTSIDE RECORDS SUMMARY | 2018-03-07 18:12 | XMS REPORT ---
Author Author SHERRY JENNINGS Organization [facility] Address [address] [place] [address] Care Team Providers Care Pipe Covering Molder Name Role Phone SHERRY JENNINGS Unavailable PROBLEMS Type Condition ICD9-CM Code XIJ96-DX Code Onset Dates Condition Status SNOMED Code Problem Reactive depression F32.9 Active 04980331 Problem Plantar wart of right foot B07.0 Active 89075089 Problem Gastroesophageal reflux disease, esophagitis presence not specified K21.9 Active 315117729 Problem Internal derangement of right knee M23.91 Active 733071479498296 Problem Abnormal laboratory test R89.9 Active 587741187 Problem Mixed hyperlipidemia E78.2 Active 699237469 Problem Rosacea L71.9 Active 629709557 Problem Mild episode of recurrent major depressive disorder F33.0 Active 768299289 Problem Generalized anxiety disorder F41.1 Active 93049624 Problem Hypothyroidism, unspecified type E03.9 Active 00943966 Problem Right elbow pain M25.521 Active 56241214 Problem Right wrist pain M25.531 Active 11226950 Problem Reflex sympathetic dystrophy G90.50 Active 35123532 Problem Venous insufficiency I87.2 Active 75718519 Problem Fibromyalgia M79.7 Active 435510898 Problem Arthritis M19.90 Active 6832641 ALLERGIES Substance Reaction Event Type Date Status Robaxin Unknown Drug Allergy Jan, Active Penicillin V Potassium Unknown Drug Allergy Jan, Active Demerol Unknown Drug Allergy Jan, Active Codeine Sulfate Unknown Drug Allergy Jan, Active ENCOUNTERS Encounter Location Date Diagnosis [facility] [address] [facility] [id number] [address] Mar, [facility] [address] [facility] [id number] [address] Mar, [facility] [address] [facility] [id number] [address] Feb, [place] [address] [address] Feb, [place] [address] [place] [id number] [place] [address] 54988- 6002 13 Feb, 2018 Fibromyalgia M79.7 [place] [address] [place] [id number] [place] [address] 56740- 4264 10 Feb, 2018 Generalized anxiety disorder F41.1 and Mild episode of recurrent major depressive disorder F33.0 [place] [address] [id number] [place] [address] 32144- 2346 06 Feb, 2018 [place] [address] [id number] [place] [address] 87170- 8857 04 Feb, 2018 Bronchospasm J98.01 and Arthritis M19.90 [place] [address] [id number] [place] [address] 10530- 1803 Jan, Medicare annual wellness visit, initial Z00.00 ; Reactive depression F32.9 ; Reflex sympathetic dystrophy G90.50 ; Fibromyalgia M79.7 ; BMI 40.0-44.9, adult Z68.41 ; Hypothyroidism, unspecified type E03.9 ; Gastroesophageal reflux disease, esophagitis presence not specified K21.9 ; Family history of osteoporosis Z82.62 ; Venous insufficiency I87.2 ; Arthritis M19.90 ; Mixed hyperlipidemia E78.2 and Generalized anxiety disorder F41.1 [place] [address] [place] [address] 52008- 7137 Jan, Generalized anxiety disorder F41.1 and Mild episode of recurrent major depressive disorder F33.0 [place] [address] [address] Jan, Mild episode of recurrent major depressive disorder F33.0 and Generalized anxiety disorder F41.1 [place] [address] [address] Jan, Fibromyalgia M79.7 [place] [address] [place] [id number] [place] [address] 82465- 2990 Jan, Bronchospasm J98.01 [facility] [address] [id number] [place] [address] 87438- 1906 Jan, [facility] [address] [address] [id number] [place] [address] 56772- 2348 Jan, Generalized anxiety disorder F41.1 and Mild episode of recurrent major depressive disorder F33.0 [place] [address] 33078- 7473 Jan, Bronchitis J40 [place] [address] 48598- 2137 Dec, Mild episode of recurrent major depressive disorder F33.0 [place] [address] [place] [id number] [place] [address] 10566- 0371 Dec, Generalized anxiety disorder F41.1 and Mild episode of recurrent major depressive disorder F33.0 [place] [address] [id number] [place] [address] 00664- 5028 Dec, Fibromyalgia M79.7 ; Arthritis M19.90 and Generalized anxiety disorder F41.1 [place] [address] [id number] [place] [address] 65093- 1408 Dec, Mild episode of recurrent major depressive disorder F33.0 and Generalized anxiety disorder F41.1 [place] [address] [id number] [place] [address] 49578- 8568 Dec, Fibromyalgia M79.7 [place] [address] [id number] [place] [address] 44701- 1459 Dec, Bronchitis J40 and Internal derangement of right knee M23.91 [facility] [id number] [place] [address] 32622 -5906 Dec, Cough R05 [facility] [address] [id number] [place] [address] 24559- 3985 Dec, Generalized anxiety disorder F41.1 and Mild episode of recurrent major depressive disorder F33.0 [facility] [address] [address] 09 Dec, 2017 [facility] [address] [address] Dec, [facility] [address] [address] 6695 Dec, Mild episode of recurrent major depressive disorder F33.0 and Generalized anxiety disorder F41.1 [facility] [address] [address] 8084 30 Nov, 2017 [facility] [id number] [place] [address] 88130- 5371 Nov, [facility] [address] [address] 8899 Nov, [facility] [id number] [place] [address] 62161- 2680 Nov, Internal derangement of right knee M23.91 [facility] [address] [address] 3398 Nov, Generalized anxiety disorder F41.1 and Mild episode of recurrent major depressive disorder F33.0 [facility] [address] [address] 3843 Nov, Internal derangement of right knee M23.91 [facility] [address] [address] Nov, Acute right ankle pain M25.571 ; Acute pain of right knee M25.561 ; Acute left-sided low back pain without sciatica M54.5 and Right leg pain M79.604 [facility] [address] [address] 0697 15 Nov, 2017 [facility] [address] [address]- 9160 14 Nov, 2017 Fibromyalgia M79.7 [facility] [address] [address] 3[address] Nov, Generalized anxiety disorder F41.1 and Mild episode of recurrent major depressive disorder F33.0 [facility] [address] [id number] [place] [address] 81380- 8087 Nov, [facility] [address] [address] [id number] [place] [address] 29094- 1378 October, Generalized anxiety disorder F41.1 and Mild episode of recurrent major depressive disorder F33.0 [facility] [address] [id number] [place] [address] 39005- 7588 October, Fibromyalgia M79.7 [facility] [address] [id number] [place] [address] 05321- 9796 October, [place] [address] [address] [id number] [place] [address] 25761- 1491 October, Generalized anxiety disorder F41.1 and Mild episode of recurrent major depressive disorder F33.0 [place] [address] [id number] [place] [address] 43336- 2765 October, [facility] [address] [address] [id number] [place] [address] 17276- 4593 Sep, Gastroesophageal reflux disease, esophagitis presence not specified K21.9 and Abnormal laboratory test R89.9 [place] [address] [place] [address] 72640- 5610 Sep, Fibromyalgia M79.7 [facility] [address] [id number] [place] [address] 72618- 8293 Sep, Generalized anxiety disorder F41.1 and Mild episode of recurrent major depressive disorder F33.0 [facility] [address] [address] [id number] [place] [address] 09206- 1063 Sep, Epigastric pain R10.13 [facility] [address] [place] [address] 24224- 0050 Sep, Mild episode of recurrent major depressive disorder F33.0 and Generalized anxiety disorder F41.1 [facility] [address] 9[address]20- 3676 Sep, Abnormal laboratory test R89.9 [facility] [address] 51402- 2384 Sep, Generalized anxiety disorder F41.1 and Mild episode of recurrent major depressive disorder F33.0 [facility] [address] 94377- 9780 29 Aug, 2017 Epigastric pain R10.13 and Encounter for therapeutic drug level monitoring Z51.81 [facility] [address] 47222 -1425 Aug, Epigastric pain R10.13 and Gastro-esophageal reflux disease without esophagitis K21.9 [facility] [address] 39653- 0753 Aug, [facility] [address] 05731- 3956 Aug, Epigastric pain R10.13 [place] [address] 85721- 4633 Aug, Fibromyalgia M79.7 [facility] [address] 72156- 0420 14 Aug, 2017 [facility] [address] 49097- 4850 14 Aug, 2017 Generalized anxiety disorder F41.1 and Mild episode of recurrent major depressive disorder F33.0 [facility] [address] 67519- 0288 08 Aug, 2017 Epigastric pain R10.13 ; Reflex sympathetic dystrophy G90.50 and Arthritis M19.90 [facility] [address] 11480- 8834 Jul, Generalized anxiety disorder F41.1 and Mild episode of recurrent major depressive disorder F33.0 [facility] [address] [place] [address] 73529 2546 Jul, BMI 40.0-44.9, adult Z68.41 ; Mild episode of recurrent major depressive disorder F33.0 and Generalized anxiety disorder F41.1 [facility] [address] [place] [address] 98269 2546 Jul, Fibromyalgia M79.7 [facility] [address] [id number] [place] [address] 88920 2546 Jun, Mild episode of recurrent major depressive disorder F33.0 and Generalized anxiety disorder F41.1 [facility] [id number] [place] [address] 40691 2546 Jun, Fibromyalgia M79.7 [facility] [address] [place] [address] 21875 2546 Jun, Generalized anxiety disorder F41.1 and Mild episode of recurrent major depressive disorder F33.0 [facility] [address] [place] [address] 27941 2546 Jun, Generalized anxiety disorder F41.1 and Mild episode of recurrent major depressive disorder F33.0 [facility] [address] [place] [address] 93629 2546 Jun, Generalized anxiety disorder F41.1 and Mild episode of recurrent major depressive disorder F33.0 [facility] [address] [place] [address] 04027 2546 Jun, [facility] [address] [place] [address] 11805 2546 Jun, Generalized anxiety disorder F41.1 and Mild episode of recurrent major depressive disorder F33.0 [facility] [address] [place] [address] 88321 2546 May, Fibromyalgia M79.7 [facility] [address] [address] 2546 20 Dec, 2017 Generalized anxiety disorder F41.1 and Mild episode of recurrent major depressive disorder F33.0 [facility] [id number] [place] [address] 99558- 2550 May, Mixed hyperlipidemia E78.2 ; Arthritis M19.90 ; Reactive depression F32.9 and Hypothyroidism, unspecified type E03.9 [facility] [address] [id number] [place] [address] 78392- 0586 May, Arthritis M19.90 ; Reactive depression F32.9 ; Mixed hyperlipidemia E78.2 and Hypothyroidism, unspecified type E03.9 [facility] [id number] [place] [address] 42625- 5694 Apr, Fibromyalgia M79.7 [facility] [id number] [place] [address] 51070- 7546 Apr, [facility] [id number] [place] [address] 86496- 4338 Apr, Fibromyalgia M79.7 [facility] [id number] [place] [address] 09710- 3730 Mar, Fibromyalgia M79.7 [facility] [id number] [place] [address] 59025- 5345 Mar, [facility] [id number] [place] [address] 14452- 3854 Mar, Fibromyalgia M79.7 [facility] [id number] [place] [address] 88837- 3151 Mar, [facility] [id number] [place] [address] 25621- 6505 Feb, Reflex sympathetic dystrophy G90.50 ; Right arm pain M79.601 and Fibromyalgia M79.7 [facility] [id number] [place] [address] 40193- 5474 Feb, [facility] [id number] [place] [address] 72819- 0318 07 Feb, 2017 Anxiety F41.9 [facility] [address] [place] [address] 54464- 3124 Feb, Fibromyalgia M79.7 [facility] [id number] [place] [address] 68535- 6066 Feb, [facility] [id number] [place] [address] 77541- 7766 Feb, [facility] [id number] [place] [address] 38351- 0050 Jan, Temporal headache R51 [facility] [id number] [place] [address] 64130- 6571 Jan, Fibromyalgia M79.7 [facility] [id number] [place] [address] 04119- 6643 Dec, Fibromyalgia M79.7 [facility] [id number] [place] [address] 53335- 2657 Nov, Peroneal tendonitis, unspecified laterality M76.70 and Plantar fasciitis, bilateral M72.2 [facility] [id number] [place] [address] 11259- 1458 Nov, Fibromyalgia M79.7 [facility] [id number] [place] [address] 12423- 4303 October, Fibromyalgia M79.7 [facility] [id number] [place] [address] 27570- 9710 October, Plantar fasciitis, bilateral M72.2 and Peroneal tendonitis, unspecified laterality M76.70 [facility] [id number] [place] [address] 21226- 2180 October, Fibromyalgia M79.7 [facility] [id number] [place] [address] 49133- 9882 Sep, Anxiety F41.9 [facility] [id number] [place] [address] 82584- 1382 Aug, Anxiety F41.9 and Adjustment disorder with anxiety F43.22 [place] [id number] [place] [address] 25822- 1716 Aug, Pain of left foot M79.672 [place] [address] 39190- 5833 Aug, Pain of left foot M79.672 and Pain in right foot M79.671 [place] [address] 85457- 2128 Aug, Arthritis M19.90 ; Reactive depression F32.9 ; Fibromyalgia M79.7 ; Rosacea L71.9 ; Pain in right foot M79.671 and Pain of left foot M79.672 [place] [address] 90573- 5211 Aug, Anxiety F41.9 ; Adjustment disorder with anxiety F43.22 and Reactive depression F32.9 [place] [address] 26441- 8734 Aug, Right elbow pain M25.521 [place] [address] 59992- 1898 Aug, Plantar wart of right foot B07.0 and Actinic keratosis L57.0 [place] [address] 87525- 2960 Aug, Fibromyalgia M79.7 [place] [address] 98109- 2501 Jul, Arthritis M19.90 ; Hypothyroidism, unspecified type E03.9 ; Reactive depression F32.9 and Venous insufficiency I87.2 [place] [address] [id number] [place] [address] 48233- 9718 Jul, Gastroesophageal reflux disease, esophagitis presence not specified K21.9 [place] [address] 96278- 7042 Jul, Reflex sympathetic dystrophy G90.50 [facility] [id number] [place] [address] 75238- 7242 17 Jul, 2016 Anxiety F41.9 ; Adjustment disorder with anxiety F43.22 and Reactive depression F32.9 [facility] [id number] [place] [address] 57398- 3903 Jul, [facility] [address] 60575- 4538 Jul, Right elbow pain M25.521 [place] [address] 27439- 5517 Jun, Fibromyalgia M79.7 [facility] [address] 76171- 2056 Jun, Anxiety F41.9 ; Adjustment disorder with anxiety F43.22 and Reactive depression F32.9 [facility] [id number] [place] [address] 80085- 2858 Jun, [facility] [address] 21360- 9161 Jun, Atypical chest pain R07.89 and Adjustment disorder with anxiety F43.22 [facility] [id number] [place] [address] [id number] Jun, Chest pain, unspecified type R07.9 [facility] [id number] [place] [address] 96184- 6106 Jun, Fibromyalgia M79.7 [facility] [id number] [place] [address] 40267- 8703 May, Anxiety F41.9 [facility] [address] 56975- 4231 May, [facility] [id number] [place] [address] 10746- 5834 May, Right elbow pain M25.521 [facility] [id number] [place] [address] 07429- 0372 Apr, Reflex sympathetic dystrophy G90.50 and Encounter for immunization Z23 [facility] [id number] [place] [address] 65500- 2594 Apr, [facility] [id number] [place] [address] 86983- 6210 Mar, [facility] [address] 75241- 8591 Feb, [facility] [address] 93157- 3345 Feb, [facility] [id number] [place] [address] 97622- 2523 Jan, [facility] [address] 16879- 5665 Jan, Right elbow pain M25.521 and Right wrist pain M25.531 [facility] [id number] [place] [address] 02151- 1621 Jan, [facility] [id number] [place] [address] 71283- 9790 Dec, Seborrheic keratoses L82.1 [facility] [id number] [place] [address] 36443- 7171 Dec, [facility] [id number] [place] [address] 12915- 0411 Dec, [facility] [id number] [place] [address] 41877- 1766 Dec, [facility] [id number] [place] [address] 81210- 6065 Dec, Fibromyalgia M79.7 and Hypothyroidism, unspecified type E03.9 [facility] [id number] [place] [address] 03753- 3812 Dec, Seborrheic keratoses L82.1 [place] [address] [address]- 6852 Dec, [place] [address] [place] [address] 74810- 8020 Dec, [place] [id number] [place] [address] 80036- 2712 Nov, Sebaceous cyst L72.3 [place] [id number] [place] [address] 60730- 2594 October, Breast cancer screening Z12.39 [place] [id number] [place] [address] 86150- 8801 October, Fibromyalgia M79.7 ; Hypothyroidism, unspecified type E03.9 and Reflex sympathetic dystrophy G90.50 [place] [id number] [place] [address] 32039- 5138 October, Reflex sympathetic dystrophy G90.50 ; Fibromyalgia M79.7 and Hypothyroidism, unspecified type E03.9 IMMUNIZATIONS No Known Immunizations SOCIAL HISTORY Never Assessed REASON FOR VISIT Cough, PT reports she is worried her bronchitis is back, she was previously diagnosed adn treated on 01/10/18. PT notes in the last two days she has been coughing all night and has a right ear ache.PT notes back pain on her right side as well whens he breathes -erick DAVEY PLAN OF CARE VITAL SIGNS Height 62 in 2018-01-18 Weight 216.0 lbs 2018-01-18 Temperature 98.6 degrees Fahrenheit 2018-01-18 Heart Rate 99 bpm 2018-01-18 Respiratory Rate 20 2018-01-18 Oximetry on room air:95 % 2018-01-18 BMI 39.50 kg/m2 2018-01-18 Blood pressure systolic 122 mmHg 2018-01-18 Blood pressure diastolic 80 mmHg 2018-01-18 MEDICATIONS Medication Instructions Dosage Frequency Start Date End Date Duration Status PredniSONE 20 mg Orally Once a day 2 tablets 24h Jan, Jan, 05 days Active Pantoprazole Sodium 40MG Orally Once a day 1 tablet 24h Active Rexulti 2 MG Orally Once a day 1 tablet 24h 12 Nov, 2017 30 days Active Zithromax Z-Elliot 250 MG Orally Once a day 2 tablets on the first day, then 1 tablet daily for 4 days 24h Jan, Jan, 5 day(s) Active Amitriptyline HCl 10 mg Orally QHS 1 tablet Active Hydrocodone-Acetaminophen 7.5-325 MG Orally 3 times a day 1 tablet 8h Dec, 28 days Active Topiramate 200MG Orally twice a day 1 tablet 12h Active ProAir HFA 108 (90 Base) MCG/ACT Inhalation every 6 hrs 2 puffs as needed 6h Jan, Active Excedrin Migraine 250-250-65 MG Orally every 6 hrs 2 tablets as needed 6h Active Levothyroxine Sodium 75MCG TAKE ONE TABLET BY MOUTH ONCE DAILY Active Tizanidine HCl 4 MG Orally Three times a day 1 tablet as needed 8h Active Orphenadrine Citrate ER 100 mg Orally twice a day 1 tablet 12h Active Levothyroxine Sodium 75 TAKE ONE TABLET BY MOUTH ONCE DAILY 90 Not-Taking Guaifenesin 400 mg Orally every 4 hrs 1 tablet as needed 4h Jan, Active Celebrex 200 MG Orally Once a day 1 capsule with food 24h Active HydrOXYzine HCl 10 MG Orally three times a day as needed for anxiety and sleep 1 tablet May, Active Cetirizine HCl 10 MG Orally Once a day 1 tablet 24h Active RESULTS No Results PROCEDURES Procedure Date Ordered Result Body Site [facility] VISIT ESTABLISHED PATIENT Jan 18, 2018 INSTRUCTIONS MEDICATIONS ADMINISTERED No Known Medications [...]
--- OUTSIDE RECORDS SUMMARY | 2018-03-07 18:13 | XMS REPORT ---
Author Author [facility] Address [address] [place] [address] Care Team Providers Care Drums Teacher Name Role Phone BLANCHE BATEMAN Unavailable PROBLEMS Type Condition ICD9-CM Code LCY23-EJ Code Onset Dates Condition Status SNOMED Code Problem Reactive depression F32.9 Active 52569568 Problem Plantar wart of right foot B07.0 Active 14524468 Problem Gastroesophageal reflux disease, esophagitis presence not specified K21.9 Active 635916488 Problem Internal derangement of right knee M23.91 Active 183689951332368 Problem Abnormal laboratory test R89.9 Active 043352170 Problem Mixed hyperlipidemia E78.2 Active 440689767 Problem Rosacea L71.9 Active 413544092 Problem Mild episode of recurrent major depressive disorder F33.0 Active 228669158 Problem Generalized anxiety disorder F41.1 Active 84428162 Problem Hypothyroidism, unspecified type E03.9 Active 68263546 Problem Right elbow pain M25.521 Active 36060096 Problem Right wrist pain M25.531 Active 65753455 Problem Reflex sympathetic dystrophy G90.50 Active 47716026 Problem Venous insufficiency I87.2 Active 86343186 Problem Fibromyalgia M79.7 Active 688098513 Problem Arthritis M19.90 Active 8937095 ALLERGIES Substance Reaction Event Type Date Status Robaxin Unknown Drug Allergy Dec, Active Penicillin V Potassium Unknown Drug Allergy Dec, Active Demerol Unknown Drug Allergy Dec, Active Codeine Sulfate Unknown Drug Allergy Dec, Active ENCOUNTERS Encounter Location Date Diagnosis [facility] [address] [facility] [id number] [address] Mar, [facility] [address] [facility] [id number], [place] [address] Mar, [facility] [address] [id number] [address] 24 Feb, 2018 [place] [id number] [place] [address] 29644- 7523 Feb, [place] [id number] [place] [address] 36196- 5552 Feb, Generalized anxiety disorder F41.1 and Mild episode of recurrent major depressive disorder F33.0 [place] [address] 62861- 9382 06 Feb, 2018 [place] [id number] [place] [address] 02475- 2804 04 Feb, 2018 Bronchospasm J98.01 and Arthritis M19.90 [place] [id number] [place] [address] 09898- 4647 Jan, Medicare annual wellness visit, initial Z00.00 ; Reactive depression F32.9 ; Reflex sympathetic dystrophy G90.50 ; Fibromyalgia M79.7 ; BMI 40.0-44.9, adult Z68.41 ; Hypothyroidism, unspecified type E03.9 ; Gastroesophageal reflux disease, esophagitis presence not specified K21.9 ; Family history of osteoporosis Z82.62 ; Venous insufficiency I87.2 ; Arthritis M19.90 ; Mixed hyperlipidemia E78.2 and Generalized anxiety disorder F41.1 [place] [id number] [place] [address] 67413- 9913 Jan, Generalized anxiety disorder F41.1 and Mild episode of recurrent major depressive disorder F33.0 [place] [id number] [place] [address] 05130- 3389 Jan, Mild episode of recurrent major depressive disorder F33.0 and Generalized anxiety disorder F41.1 [place] [id number] [place] [address] 44273- 0448 Jan, Fibromyalgia M79.7 [place] [id number] [place] [address] 64301- 5886 Jan, Bronchospasm J98.01 [place] [id number] [place] [address] 94364- 0423 Jan, [facility] [id number] [place] [address] 75673- 9965 Jan, Generalized anxiety disorder F41.1 and Mild episode of recurrent major depressive disorder F33.0 [facility] [id number] [place] [address] 66834- 4334 Jan, Bronchitis J40 [facility] [id number] [place] [address] 17336- 0117 Dec, Mild episode of recurrent major depressive disorder F33.0 [place] [id number] [place] [address] 47720- 0114 Dec, Generalized anxiety disorder F41.1 and Mild episode of recurrent major depressive disorder F33.0 [facility] [id number] [place] [address] 93633- 4135 Dec, Fibromyalgia M79.7 ; Arthritis M19.90 and Generalized anxiety disorder F41.1 [facility] [id number] [place] [address] 54752- 4913 Dec, Mild episode of recurrent major depressive disorder F33.0 and Generalized anxiety disorder F41.1 [facility] [id number] [place] [address] 28081- 3478 Dec, Fibromyalgia M79.7 [facility] [id number] [place] [address] 66449- 2942 Dec, Bronchitis J40 and Internal derangement of right knee M23.91 [facility] [id number] [place] [address] 91217 -4663 Dec, Cough R05 [facility] [id number] [place] [address] 12382- 0727 Dec, Generalized anxiety disorder F41.1 and Mild episode of recurrent major depressive disorder F33.0 [facility] [id number] [place] [address] 75496- 8250 Dec, [facility] [address] [address] Dec, [facility] [id number] [place] [address] 72745- 5287 Dec, Mild episode of recurrent major depressive disorder F33.0 and Generalized anxiety disorder F41.1 [facility] [id number] [place] [address] 60017- 0732 30 Nov, 2017 [facility] [id number] [place] [address] 21035- 1186 Nov, [facility] [id number] [place] [address] 74538- 9078 Nov, [facility] [id number] [place] [address] 97279- 0396 Nov, Internal derangement of right knee M23.91 [facility] [id number] [place] [address] 49476- 8603 Nov, Generalized anxiety disorder F41.1 and Mild episode of recurrent major depressive disorder F33.0 [facility] [id number] [place] [address] 26780- 9554 Nov, Internal derangement of right knee M23.91 [facility] [address] [address] Nov, Acute right ankle pain M25.571 ; Acute pain of right knee M25.561 ; Acute left-sided low back pain without sciatica M54.5 and Right leg pain M79.604 [facility] [id number] [place] [address] 42319- 6574 15 Nov, 2017 [place] [id number] [place] [address] 76449- 2401 14 Nov, 2017 Fibromyalgia M79.7 [facility] [id number] [place] [address] 17805- 5520 Nov, Generalized anxiety disorder F41.1 and Mild episode of recurrent major depressive disorder F33.0 [facility] [id number] [place] [address] 57705- 5099 Nov, [facility] [id number] [place] [address] 26675- 1094 October, Generalized anxiety disorder F41.1 and Mild episode of recurrent major depressive disorder F33.0 [facility] [id number] [place] [address] 73855- 8486 October, Fibromyalgia M79.7 [facility] [id number] [place] [address] 11990- 2458 October, [place] [id number] [place] [address] 48706- 2215 October, Generalized anxiety disorder F41.1 and Mild episode of recurrent major depressive disorder F33.0 [place] [id number] [place] [address] 30432- 0771 October, [facility] [id number] [place] [address] 70019- 4909 Sep, Gastroesophageal reflux disease, esophagitis presence not specified K21.9 and Abnormal laboratory test R89.9 [place] [id number] [place] [address] 98299- 7173 Sep, Fibromyalgia M79.7 [facility] [id number] [place] [address] 62901- 2183 Sep, Generalized anxiety disorder F41.1 and Mild episode of recurrent major depressive disorder F33.0 [facility] [id number] [place] [address] 59830- 0074 Sep, Epigastric pain R10.13 [facility] [id number] [place] [address] 50473- 8140 Sep, Mild episode of recurrent major depressive disorder F33.0 and Generalized anxiety disorder F41.1 [place] [id number] [place] [address] 89799- 8276 Sep, Abnormal laboratory test R89.9 [facility] [address] 36800- 3656 Sep, Generalized anxiety disorder F41.1 and Mild episode of recurrent major depressive disorder F33.0 [facility] [address] 09879- 6072 29 Aug, 2017 Epigastric pain R10.13 and Encounter for therapeutic drug level monitoring Z51.81 [facility] [address] 92350 -7459 Aug, Epigastric pain R10.13 and Gastro-esophageal reflux disease without esophagitis K21.9 [facility] [id number] [place] [address] 53769- 2875 Aug, [place] [address] 98919- 3309 Aug, Epigastric pain R10.13 [place] [address] 65635- 1308 Aug, Fibromyalgia M79.7 [place] [address] 85180- 1189 14 Aug, 2017 [place] [address] 52976- 8798 Aug, Generalized anxiety disorder F41.1 and Mild episode of recurrent major depressive disorder F33.0 [facility] [id number] [place] [address] 73239- 4749 08 Aug, 2017 Epigastric pain R10.13 ; Reflex sympathetic dystrophy G90.50 and Arthritis M19.90 [place] [address] 91826- 9549 Jul, Generalized anxiety disorder F41.1 and Mild episode of recurrent major depressive disorder F33.0 [place] [address] 49983- 4846 Jul, BMI 40.0-44.9, adult Z68.41 ; Mild episode of recurrent major depressive disorder F33.0 and Generalized anxiety disorder F41.1 [facility] [id number] [place] [address] 13532- 1136 Jul, Fibromyalgia M79.7 [facility] [id number] [place] [address] 98590- 1486 Jun, Mild episode of recurrent major depressive disorder F33.0 and Generalized anxiety disorder F41.1 [facility] [id number] [place] [address] 45696- 2695 Jun, Fibromyalgia M79.7 [facility] [id number] [place] [address] 89155- 4467 Jun, Generalized anxiety disorder F41.1 and Mild episode of recurrent major depressive disorder F33.0 [facility] [id number] [place] [address] 62857- 5891 Jun, Generalized anxiety disorder F41.1 and Mild episode of recurrent major depressive disorder F33.0 [facility] [id number] [place] [address] 43816- 2837 Jun, Generalized anxiety disorder F41.1 and Mild episode of recurrent major depressive disorder F33.0 [facility] [id number] [place] [address] 69460- 4795 Jun, [facility] [id number] [place] [address] 24538- 0648 Jun, Generalized anxiety disorder F41.1 and Mild episode of recurrent major depressive disorder F33.0 [facility] [id number] [place] [address] 78743- 9126 May, Fibromyalgia M79.7 [facility] [id number] [place] [address] 13283- 1092 May, Generalized anxiety disorder F41.1 and Mild episode of recurrent major depressive disorder F33.0 [facility] [address] 12956- 9288 May, Mixed hyperlipidemia E78.2 ; Arthritis M19.90 ; Reactive depression F32.9 and Hypothyroidism, unspecified type E03.9 [facility] [id number] [place] [address] 55357- 8411 May, Arthritis M19.90 ; Reactive depression F32.9 ; Mixed hyperlipidemia E78.2 and Hypothyroidism, unspecified type E03.9 [facility] [address] 35898- 8993 Apr, Fibromyalgia M79.7 [facility] [address] 06847- 9815 Apr, [facility] [address] 04000- 6287 Apr, Fibromyalgia M79.7 [facility] [address] 53145- 9457 Mar, Fibromyalgia M79.7 [facility] [address] 36982- 0119 Mar, [facility] [address] 18866- 3610 Mar, Fibromyalgia M79.7 [facility] [address] 18153- 8945 Mar, [facility] [address] 43951- 7497 Feb, Reflex sympathetic dystrophy G90.50 ; Right arm pain M79.601 and Fibromyalgia M79.7 [facility] [address] 32867- 6798 Feb, [facility] [id number] [place] [address] 41796- 6727 Feb, Anxiety F41.9 [facility] [address] 01304- 0777 Feb, Fibromyalgia M79.7 [facility] [id number] [place] [address] 53524- 1148 Feb, [facility] [id number] [place] [address] 12981- 5168 Feb, [facility] [id number] [place] [address] 76637- 6218 Jan, Temporal headache R51 [facility] [id number] [place] [address] 37593- 5282 Jan, Fibromyalgia M79.7 [facility] [id number] [place] [address] 58113- 0614 Dec, Fibromyalgia M79.7 [facility] [id number] [place] [address] 27367- 8247 Nov, Peroneal tendonitis, unspecified laterality M76.70 and Plantar fasciitis, bilateral M72.2 [facility] [id number] [place] [address] 61698- 4453 Nov, Fibromyalgia M79.7 [facility] [id number] [place] [address] 56822- 0418 October, Fibromyalgia M79.7 [facility] [id number] [place] [address] 17365- 6667 October, Plantar fasciitis, bilateral M72.2 and Peroneal tendonitis, unspecified laterality M76.70 [facility] [id number] [place] [address] 19537- 9201 October, Fibromyalgia M79.7 [facility] [id number] [place] [address] 87347- 3197 Sep, Anxiety F41.9 [facility] [id number] [place] [address] 76745- 7134 Aug, Anxiety F41.9 and Adjustment disorder with anxiety F43.22 [place] [address] 31037- 6945 Aug, Pain of left foot M79.672 [place] [address] 33894- 8168 Aug, Pain of left foot M79.672 and Pain in right foot M79.671 [place] [address] 39776- 9848 Aug, Arthritis M19.90 ; Reactive depression F32.9 ; Fibromyalgia M79.7 ; Rosacea L71.9 ; Pain in right foot M79.671 and Pain of left foot M79.672 [place] [address] 73359- 0437 Aug, Anxiety F41.9 ; Adjustment disorder with anxiety F43.22 and Reactive depression F32.9 [place] [address] 67460- 3048 Aug, Right elbow pain M25.521 [place] [address] 95701- 8297 Aug, Plantar wart of right foot B07.0 and Actinic keratosis L57.0 [place] [address] 08194- 0017 Aug, Fibromyalgia M79.7 [place] [address] 21985- 3930 Jul, Arthritis M19.90 ; Hypothyroidism, unspecified type E03.9 ; Reactive depression F32.9 and Venous insufficiency I87.2 [place] [address] 99936- 9128 Jul, Gastroesophageal reflux disease, esophagitis presence not specified K21.9 [place] [address] 10167- 8021 Jul, Reflex sympathetic dystrophy G90.50 [place] [id number] [place] [address] 43401- 5418 17 Jul, 2016 Anxiety F41.9 ; Adjustment disorder with anxiety F43.22 and Reactive depression F32.9 [facility] [address] 67459- 5895 15 Jul, 2016 [facility] [address] 25735- 6970 03 Jul, 2016 Right elbow pain M25.521 [facility] [address] 81715- 0994 Jun, Fibromyalgia M79.7 [place] [address] 22081- 0689 Jun, Anxiety F41.9 ; Adjustment disorder with anxiety F43.22 and Reactive depression F32.9 [place] [address] 40074- 3406 Jun, [facility] [address] 58434- 7604 Jun, Atypical chest pain R07.89 and Adjustment disorder with anxiety F43.22 [place] [address] [id number] Jun, Chest pain, unspecified type R07.9 [place] [id number] [place] [address] 87001- 2015 Jun, Fibromyalgia M79.7 [facility] [address] 79364- 8340 May, Anxiety F41.9 [place] [address] 53811- 8922 May, [facility] [address] 66722- 9968 May, Right elbow pain M25.521 [facility] [address] 39836- 6357 Apr, Reflex sympathetic dystrophy G90.50 and Encounter for immunization Z23 [facility] [id number] [place] [address] 46630- 2652 Apr, [facility] [id number] [place] [address] 44192- 6143 Mar, [facility] [id number] [place] [address] 73683- 6623 Feb, [facility] [id number] [place] [address] 72173- 5634 Feb, [facility] [address] 89399- 9885 Jan, [facility] [id number] [place] [address] 90334- 3574 Jan, Right elbow pain M25.521 and Right wrist pain M25.531 [facility] [id number] [place] [address] 17377- 0525 Jan, [facility] [id number] [place] [address] 74706- 9061 Dec, Seborrheic keratoses L82.1 [facility] [id number] [place] [address] 74119- 3035 Dec, [facility] [id number] [place] [address] 07366- 6671 Dec, [facility] [id number] [place] [address] 94575- 6394 Dec, [facility] [id number] [place] [address] 59691- 5419 Dec, Fibromyalgia M79.7 and Hypothyroidism, unspecified type E03.9 [facility] [id number] [place] [address] 28529- 3480 Dec, Seborrheic keratoses L82.1 [facility] [address] [address]- 2498 Dec, [place] [address] [address]- 2800 Dec, [place] [id number] [place] [address] 52564- 6348 Nov, Sebaceous cyst L72.3 [place] [address] 68890- 8468 October, Breast cancer screening Z12.39 [place] [id number] [place] [address] 26927- 5620 October, Fibromyalgia M79.7 ; Hypothyroidism, unspecified type E03.9 and Reflex sympathetic dystrophy G90.50 [place] [id number] [place] [address] 03080- 8321 October, Reflex sympathetic dystrophy G90.50 ; Fibromyalgia M79.7 and Hypothyroidism, unspecified type E03.9 IMMUNIZATIONS No Known Immunizations SOCIAL HISTORY Never Assessed REASON FOR VISIT cough for months. has seen dr barakat about this...reports nothing has been done. all according to pt. caruso PLAN OF CARE Activity Details Follow Up prn Reason: VITAL SIGNS Height 62 in 2017-12-29 Weight 212.8 lbs 2017-12-29 Temperature 98.8 degrees Fahrenheit 2017-12-29 Heart Rate 76 bpm 2017-12-29 Respiratory Rate 20 2017-12-29 BMI 38.92 kg/m2 2017-12-29 Blood pressure systolic 124 mmHg 2017-12-29 Blood pressure diastolic 80 mmHg 2017-12-29 MEDICATIONS Medication Instructions Dosage Frequency Start Date End Date Duration Status Tessalon Perles 100 MG Orally Three times a day 1 capsule as needed 8h 5 days Active Cetirizine HCl 10 MG Orally Once a day 1 tablet 24h Active Excedrin Migraine 250-250-65 MG Orally every 6 hrs 2 tablets as needed 6h Active Rexulti 2 MG Orally Once a day 1 tablet 24h Nov, 30 days Active Hydrocodone-Acetaminophen 7.5-325 MG Orally 3 times a day 1 tablet 8h October, 28 days Active Cane - as directed Nov, Active Fiorinal 50-325-40 MG Orally every 4 hrs 1 capsule as needed 4h 11 Jan, 2017 Active Pantoprazole Sodium 40MG Orally Once a day 1 tablet 24h Active Orphenadrine Citrate ER 100 mg Orally twice a day 1 tablet 12h Active HydrOXYzine HCl 10 MG Orally three times a day as needed for anxiety and sleep 1 tablet May, Active Levothyroxine Sodium 75MCG TAKE ONE TABLET BY MOUTH ONCE DAILY Active Topiramate 200MG Orally twice a day 1 tablet 12h Active RESULTS Name Result Date Reference Range Xray : Chest 2 View (IN HOUSE) 2017-12-29 PROCEDURES Procedure Date Ordered Result Body Site X-RAY EXAM CHEST 2 VIEWS December 29, 2017 [facility] VISIT ESTABLISHED PATIENT December 29, 2017 INSTRUCTIONS MEDICATIONS ADMINISTERED No Known Medications [...]
--- OUTSIDE RECORDS SUMMARY | 2018-03-07 18:13 | XMS REPORT ---
Author Author JOE BAI Organization [facility] Address [address] [place] [address] Care Team Providers Care Polygraph Operator Name Role Phone JOE BAI Unavailable PROBLEMS Type Condition ICD9-CM Code [id number] Code Onset Dates Condition Status SNOMED Code Problem Reactive depression F32.9 Active 23973153 Problem Plantar wart of right foot B07.0 Active 59185349 Problem Gastroesophageal reflux disease, esophagitis presence not specified K21.9 Active 877947191 Problem Internal derangement of right knee M23.91 Active 647070601788349 Problem Abnormal laboratory test R89.9 Active 910868788 Problem Mixed hyperlipidemia E78.2 Active 213226811 Problem Rosacea L71.9 Active 904876054 Problem Mild episode of recurrent major depressive disorder F33.0 Active 401681280 Problem Generalized anxiety disorder F41.1 Active 25462582 Problem Hypothyroidism, unspecified type E03.9 Active 48136406 Problem Right elbow pain M25.521 Active 87904086 Problem Right wrist pain M25.531 Active 33459099 Problem Reflex sympathetic dystrophy G90.50 Active 11139588 Problem Venous insufficiency I87.2 Active 22180378 Problem Fibromyalgia M79.7 Active 580552735 Problem Arthritis M19.90 Active 2096569 ALLERGIES No Information ENCOUNTERS Encounter Location Date Diagnosis [facility] [address], [place] [address] Mar, [facility] [id number] [place] [address] 91589- 9786 Feb, [facility] [id number] [place] [address] 05056- 6727 Feb, [facility] [address], [place] [address] Feb, [facility] [address] [id number] [place] [address]63- 2001 Feb, [place] [address] [address]- [address] Jan, Medicare annual wellness visit, initial Z00.00 ; Reactive depression F32.9 ; Reflex sympathetic dystrophy G90.50 ; Fibromyalgia M79.7 ; BMI 40.0-44.9, adult Z68.41 ; Hypothyroidism, unspecified type E03.9 ; Gastroesophageal reflux disease, esophagitis presence not specified K21.9 ; Family history of osteoporosis Z82.62 ; Venous insufficiency I87.2 ; Arthritis M19.90 ; Mixed hyperlipidemia E78.2 and Generalized anxiety disorder F41.1 [place] [address] [address]- 4141 Jan, Generalized anxiety disorder F41.1 and Mild episode of recurrent major depressive disorder F33.0 [facility] [id number] [place] [address] 07375- 2951 Jan, Mild episode of recurrent major depressive disorder F33.0 and Generalized anxiety disorder F41.1 [facility] [place] [id number] [place] [address] 97907- 6733 Jan, Fibromyalgia M79.7 [facility] [id number] [place] [address] 79518- 4623 Jan, Bronchospasm J98.01 [facility] [id number] [place] [address] 26808- 9125 Jan, [facility] [place] [id number] [place] [address] 89150- 2486 Jan, Generalized anxiety disorder F41.1 and Mild episode of recurrent major depressive disorder F33.0 [facility] [place] [id number] [place] [address] 79449- 4582 Jan, Bronchitis J40 [facility] [place] [id number] [place] [address] 72036- 4366 Dec, Mild episode of recurrent major depressive disorder F33.0 [facility] [address], [place] [address] 5709 Dec, Generalized anxiety disorder F41.1 and Mild episode of recurrent major depressive disorder F33.0 [facility] [id number] [place] [address] 94842- 0636 Dec, Fibromyalgia M79.7 ; Arthritis M19.90 and Generalized anxiety disorder F41.1 [facility] [id number] [place] [address] 08353- 2645 Dec, Mild episode of recurrent major depressive disorder F33.0 and Generalized anxiety disorder F41.1 [facility] [id number] [place] [address] 88541- 2217 Dec, Fibromyalgia M79.7 [facility] [id number] [place] [address] 24074- 3724 Dec, Bronchitis J40 and Internal derangement of right knee M23.91 [facility] [id number] [place] [address] 39779 -9258 Dec, Cough R05 [facility] [id number] [place] [address] 81394- 2143 Dec, Generalized anxiety disorder F41.1 and Mild episode of recurrent major depressive disorder F33.0 [facility] [id number] [place] [address] 69470- 0458 Dec, [facility] [id number] [place] [address] 09923 -5583 Dec, [facility] [id number] [place] [address] 22684- 9156 Dec, Mild episode of recurrent major depressive disorder F33.0 and Generalized anxiety disorder F41.1 [facility] [address], [place] [address] 7899 Nov, [facility] [id number] [place] [address] 45919- 7530 Nov, [facility] [address], [place] [address]- 2292 Nov, [facility] [id number] [address] 7642 Nov, Internal derangement of right knee M23.91 [facility] [address], [place] [address]- 9331 Nov, Generalized anxiety disorder F41.1 and Mild episode of recurrent major depressive disorder F33.0 [facility] [address], [place] [address]- 7416 Nov, Internal derangement of right knee M23.91 [facility] [id number] [address] Nov, Acute right ankle pain M25.571 ; Acute pain of right knee M25.561 ; Acute left-sided low back pain without sciatica M54.5 and Right leg pain M79.604 [facility] [address], [place] [address]- 9324 15 Nov, 2017 [facility] [address], [place] [address]- 5144 14 Nov, 2017 Fibromyalgia M79.7 [facility] [address], [place] [address]- 2067 13 Nov, 2017 Generalized anxiety disorder F41.1 and Mild episode of recurrent major depressive disorder F33.0 [facility] [address], [place] [address]- 8071 Nov, [facility] [id number] [address]- 2982 30 Oct, 2017 Generalized anxiety disorder F41.1 and Mild episode of recurrent major depressive disorder F33.0 [facility] [address], [place] [address]- 9085 October, Fibromyalgia M79.7 [facility] [id number] [place] [address] 75728- 4967 October, [facility] [id number] [place] [address] 22108- 4775 October, Generalized anxiety disorder F41.1 and Mild episode of recurrent major depressive disorder F33.0 [facility] [id number] [place] [address] 17208- 0314 October, [facility] [address] 22546- 0970 Sep, Gastroesophageal reflux disease, esophagitis presence not specified K21.9 and Abnormal laboratory test R89.9 [place] [address] 62166- 8709 Sep, Fibromyalgia M79.7 [facility] [place] [id number] [place] [address] 47509- 1057 Sep, Generalized anxiety disorder F41.1 and Mild episode of recurrent major depressive disorder F33.0 [facility] [id number] [place] [address] 17997- 7533 Sep, Epigastric pain R10.13 [facility] [id number] [place] [address] 31368- 9847 Sep, Mild episode of recurrent major depressive disorder F33.0 and Generalized anxiety disorder F41.1 [place] [id number] [place] [address] 64359- 4469 Sep, Abnormal laboratory test R89.9 [facility] [id number] [place] [address] 47362- 3198 Sep, Generalized anxiety disorder F41.1 and Mild episode of recurrent major depressive disorder F33.0 [facility] [place] [id number] [place] [address] 22449- 6386 Aug, Epigastric pain R10.13 and Encounter for therapeutic drug level monitoring Z51.81 [facility] [id number] [place] [address] 55094 -8941 Aug, Epigastric pain R10.13 and Gastro-esophageal reflux disease without esophagitis K21.9 [facility] [place] [id number] [place] [address] 93491- 0562 Aug, [facility] [place] [id number] [place] [address] 65569- 8549 Aug, Epigastric pain R10.13 [facility] [address] 98501- 2204 Aug, Fibromyalgia M79.7 [place] [address] 47340- 2798 Aug, [place] [address] 11457- 3896 Aug, Generalized anxiety disorder F41.1 and Mild episode of recurrent major depressive disorder F33.0 [facility] [address] 62505- 5613 Aug, Epigastric pain R10.13 ; Reflex sympathetic dystrophy G90.50 and Arthritis M19.90 [facility] [place] [id number] [place] [address] 20307- 5968 Jul, Generalized anxiety disorder F41.1 and Mild episode of recurrent major depressive disorder F33.0 [facility] [place] [id number] [place] [address] 31378- 1132 Jul, BMI 40.0-44.9, adult Z68.41 ; Mild episode of recurrent major depressive disorder F33.0 and Generalized anxiety disorder F41.1 [facility] [id number] [place] [address] 70177- 2645 Jul, Fibromyalgia M79.7 [facility] [place] [id number] [place] [address] 92131- 7109 Jun, Mild episode of recurrent major depressive disorder F33.0 and Generalized anxiety disorder F41.1 [facility] [place] [id number] [place] [address] 32935- 9649 Jun, Fibromyalgia M79.7 [facility] [address], [place] [address]- 3906 Jun, Generalized anxiety disorder F41.1 and Mild episode of recurrent major depressive disorder F33.0 [facility] [address], [place] [address]- 2361 Jun, Generalized anxiety disorder F41.1 and Mild episode of recurrent major depressive disorder F33.0 [facility] [address] [place] [address] 80767- 1411 Jun, Generalized anxiety disorder F41.1 and Mild episode of recurrent major depressive disorder F33.0 [facility] [id number] [place] [address] 91990- 1021 Jun, [facility] [id number] [place] [address] 52454- 6748 Jun, Generalized anxiety disorder F41.1 and Mild episode of recurrent major depressive disorder F33.0 [facility] [address] [place] [address] 75484- 1014 May, Fibromyalgia M79.7 [facility] [id number] [place] [address] 23257- 4183 May, Generalized anxiety disorder F41.1 and Mild episode of recurrent major depressive disorder F33.0 [facility] [address], [place] [address]- 0409 May, Mixed hyperlipidemia E78.2 ; Arthritis M19.90 ; Reactive depression F32.9 and Hypothyroidism, unspecified type E03.9 [facility] [address] [place] [address] 21202- 3922 May, Arthritis M19.90 ; Reactive depression F32.9 ; Mixed hyperlipidemia E78.2 and Hypothyroidism, unspecified type E03.9 [facility] [address], [place] [address]- 7689 Apr, Fibromyalgia M79.7 [facility] [id number] [place] [address] 44426- 1613 Apr, [facility] [address] 26085- 2537 Apr, Fibromyalgia M79.7 [facility] [id number] [place] [address] 28662- 5208 Mar, Fibromyalgia M79.7 [facility] [address] 52103- 2451 Mar, [facility] [id number] [place] [address] 97308- 6112 Mar, Fibromyalgia M79.7 [facility] [address] 47321- 3716 Mar, [facility] [id number] [place] [address] 27588- 2719 Feb, Reflex sympathetic dystrophy G90.50 ; Right arm pain M79.601 and Fibromyalgia M79.7 [facility] [id number] [place] [address] 35848- 3641 Feb, [facility] [id number] [place] [address] 96227- 9675 Feb, Anxiety F41.9 [facility] [id number] [place] [address] 01794 2542 Feb, Fibromyalgia M79.7 [facility] [id number] [place] [address] 76145 2546 Feb, [facility] [id number] [place] [address] 83696- 2933 Feb, [facility] [id number] [place] [address] 04380- 8094 Jan, Temporal headache R51 [facility] [id number] [place] [address] 42853 2541 Jan, Fibromyalgia M79.7 [facility] [id number] [place] [address] 62918- 6962 Dec, Fibromyalgia M79.7 [facility] [id number] [place] [address] 37020- 3876 Nov, Peroneal tendonitis, unspecified laterality M76.70 and Plantar fasciitis, bilateral M72.2 [place] [address] 78292- 3398 Nov, Fibromyalgia M79.7 [place] [address] 00143- 3090 October, Fibromyalgia M79.7 [facility] [id number] [place] [address] 74279- 0602 October, Plantar fasciitis, bilateral M72.2 and Peroneal tendonitis, unspecified laterality M76.70 [place] [address] 04850- 8834 October, Fibromyalgia M79.7 [facility] [place] [id number] [place] [address] 24486- 3495 Sep, Anxiety F41.9 [facility] [place] [id number] [place] [address] 39490- 5382 Aug, Anxiety F41.9 and Adjustment disorder with anxiety F43.22 [facility] [place] [id number] [place] [address] 40984- 0249 Aug, Pain of left foot M79.672 [facility] [place] [id number] [place] [address] 55990- 6142 Aug, Pain of left foot M79.672 and Pain in right foot M79.671 [place] [id number] [place] [address] 83717- 3115 Aug, Arthritis M19.90 ; Reactive depression F32.9 ; Fibromyalgia M79.7 ; Rosacea L71.9 ; Pain in right foot M79.671 and Pain of left foot M79.672 [place] [address] 31979- 1432 Aug, Anxiety F41.9 ; Adjustment disorder with anxiety F43.22 and Reactive depression F32.9 [place] [address] 94254- 1761 14 Aug, 2016 Right elbow pain M25.521 [place] [address] 27347- 1176 Aug, Plantar wart of right foot B07.0 and Actinic keratosis L57.0 [place] [address] 53942- 9567 Aug, Fibromyalgia M79.7 [place] [address] 05407- 3474 Jul, Arthritis M19.90 ; Hypothyroidism, unspecified type E03.9 ; Reactive depression F32.9 and Venous insufficiency I87.2 [place] [address] 57156- 1192 Jul, Gastroesophageal reflux disease, esophagitis presence not specified K21.9 [place] [address] 82050- 9852 Jul, Reflex sympathetic dystrophy G90.50 [place] [address] 30481- 2910 Jul, Anxiety F41.9 ; Adjustment disorder with anxiety F43.22 and Reactive depression F32.9 [place] [address] 58368- 5748 Jul, [place] [address] 69998- 2130 Jul, Right elbow pain M25.521 [place] [address] 02090- 6151 Jun, Fibromyalgia M79.7 [facility] [address] 41984- 3872 Jun, Anxiety F41.9 ; Adjustment disorder with anxiety F43.22 and Reactive depression F32.9 [facility] [address] 16394- 8654 Jun, [facility] [address] 64486- 3736 Jun, Atypical chest pain R07.89 and Adjustment disorder with anxiety F43.22 [facility] [address] [id number] Jun, Chest pain, unspecified type R07.9 [facility] [address] 64487- 1912 Jun, Fibromyalgia M79.7 [place] [address] 33735- 2904 May, Anxiety F41.9 [place] [address] 73882- 8854 May, [place] [address] 60468- 4108 May, Right elbow pain M25.521 [place] [address] 34161- 1730 Apr, Reflex sympathetic dystrophy G90.50 and Encounter for immunization Z23 [facility] [address] 32590- 7988 Apr, [place] [address] 53420- 8628 Mar, [facility] [address] 26113- 6988 Feb, [facility] [address] 54305- 0387 Feb, [facility] [id number] [place] [address] 02422- 9811 Jan, [facility] [id number] [place] [address] 03145- 1786 Jan, Right elbow pain M25.521 and Right wrist pain M25.531 [facility] [id number] [place] [address] 97987- 0504 Jan, [facility] [id number] [place] [address] 11069- 6784 Dec, Seborrheic keratoses L82.1 [facility] [id number] [place] [address] 29717- 1721 Dec, [facility] [id number] [place] [address] 95137- 6926 Dec, [facility] [id number] [place] [address] 57173- 1657 Dec, [facility] [id number] [place] [address] 99676- 3171 Dec, Fibromyalgia M79.7 and Hypothyroidism, unspecified type E03.9 [facility] [id number] [place] [address] 16205- 7737 Dec, Seborrheic keratoses L82.1 [facility] [id number] [place] [address] 00393- 8622 Dec, [facility] [id number] [place] [address] 42425- 2548 Dec, [facility] [id number] [place] [address] 83949- 9833 Nov, Sebaceous cyst L72.3 [facility] [id number] [place] [address] 32803- 7933 October, Breast cancer screening Z12.39 [facility] [id number] [place] [address] 48368- 4226 October, Fibromyalgia M79.7 ; Hypothyroidism, unspecified type E03.9 and Reflex sympathetic dystrophy G90.50 [facility] [address] [facility] [id number] [place] [address]- 1535 October, Reflex sympathetic dystrophy G90.50 ; Fibromyalgia M79.7 and Hypothyroidism, unspecified type E03.9 IMMUNIZATIONS No Known Immunizations SOCIAL HISTORY Never Assessed REASON FOR VISIT Hydrocodone due 12/09 PLAN OF CARE VITAL SIGNS MEDICATIONS Medication [...]
--- OUTSIDE RECORDS SUMMARY | 2018-03-07 18:14 | XMS REPORT ---
Author Author FRANK CHAPMAN Organization [facility] Address [address] [place] [address] Care Team Providers Care Drawbridge Tender Name Role Phone FRANK CHAPMAN Unavailable PROBLEMS Type Condition ICD9-CM Code CSY86-RM Code Onset Dates Condition Status SNOMED Code Problem Reactive depression F32.9 Active 62602965 Problem Plantar wart of right foot B07.0 Active 89837526 Problem Gastroesophageal reflux disease, esophagitis presence not specified K21.9 Active 199760039 Problem Internal derangement of right knee M23.91 Active 704598104529173 Problem Abnormal laboratory test R89.9 Active 251742321 Problem Mixed hyperlipidemia E78.2 Active 145771876 Problem Rosacea L71.9 Active 142531070 Problem Mild episode of recurrent major depressive disorder F33.0 Active 022106047 Problem Generalized anxiety disorder F41.1 Active 43380558 Problem Hypothyroidism, unspecified type E03.9 Active 93324638 Problem Right elbow pain M25.521 Active 57065253 Problem Right wrist pain M25.531 Active 55403245 Problem Reflex sympathetic dystrophy G90.50 Active 74335062 Problem Venous insufficiency I87.2 Active 63951757 Problem Fibromyalgia M79.7 Active 359396186 Problem Arthritis M19.90 Active 2691760 ALLERGIES No Information ENCOUNTERS Encounter Location Date Diagnosis [facility] [id number], [place] [address] Mar, [facility] [address], [place] [address] Mar, [facility] [address], [place] [address] Feb, [facility] [address], [place] [address] Feb, [facility] [address] [place] [address] 75780- 2027 Feb, Generalized anxiety disorder F41.1 and Mild episode of recurrent major depressive disorder F33.0 [facility] [id number] [place] [address] 96608- 0309 Feb, [facility] [id number] [place] [address] 43168- 5695 Feb, Bronchospasm J98.01 and Arthritis M19.90 [facility] [id number] [place] [address] 05886- 9847 Jan, Medicare annual wellness visit, initial Z00.00 ; Reactive depression F32.9 ; Reflex sympathetic dystrophy G90.50 ; Fibromyalgia M79.7 ; BMI 40.0-44.9, adult Z68.41 ; Hypothyroidism, unspecified type E03.9 ; Gastroesophageal reflux disease, esophagitis presence not specified K21.9 ; Family history of osteoporosis Z82.62 ; Venous insufficiency I87.2 ; Arthritis M19.90 ; Mixed hyperlipidemia E78.2 and Generalized anxiety disorder F41.1 [facility] [place] [address] [place] [address] 16919- 9232 Jan, Generalized anxiety disorder F41.1 and Mild episode of recurrent major depressive disorder F33.0 [place] [address] [place] [address] 05551- 6960 Jan, Mild episode of recurrent major depressive disorder F33.0 and Generalized anxiety disorder F41.1 [facility] [place] [address] [place] [address] 13889- 2737 Jan, Fibromyalgia M79.7 [facility] [id number] [place] [address] 61395- 6686 Jan, Bronchospasm J98.01 [facility] [id number] [place] [address] 61647- 6505 Jan, [facility] [id number] [place] [address] 81287- 7719 Jan, Generalized anxiety disorder F41.1 and Mild episode of recurrent major depressive disorder F33.0 [facility] [id number], [place] [address] 44[address] Jan, Bronchitis J40 [facility] [id number] [place] [address] 37984- 1656 Dec, Mild episode of recurrent major depressive disorder F33.0 [facility] [id number] [place] [address] 29397- 2758 Dec, Generalized anxiety disorder F41.1 and Mild episode of recurrent major depressive disorder F33.0 [facility] [id number] [place] [address] 55956- 3222 Dec, Fibromyalgia M79.7 ; Arthritis M19.90 and Generalized anxiety disorder F41.1 [facility] [id number] [place] [address] 22257- 2970 Dec, Mild episode of recurrent major depressive disorder F33.0 and Generalized anxiety disorder F41.1 [facility] [id number] [place] [address] 11698- 6032 Dec, Fibromyalgia M79.7 [facility] [id number] [place] [address] 64256- 9548 Dec, Bronchitis J40 and Internal derangement of right knee M23.91 [facility] [id number] [place] [address] 38952 -9556 Dec, Cough R05 [facility] [address] [place] [address] 28053- 6175 Dec, Generalized anxiety disorder F41.1 and Mild episode of recurrent major depressive disorder F33.0 [facility] [address] [place] [address] 55530- 8972 Dec, [facility] [id number] [place] [address] 25356 -8026 Dec, [facility] [id number], [place] [address] 2018 Dec, Mild episode of recurrent major depressive disorder F33.0 and Generalized anxiety disorder F41.1 [facility] [address], [place] [address]- 0233 30 Nov, 2017 [facility] [address], [place] [address]- 1522 Nov, [facility] [id number] [place] [address] 98135- 7860 Nov, [facility] [address] [place] [address] 47064- 8074 Nov, Internal derangement of right knee M23.91 [facility] [address] [place] [address] 53783- 0156 Nov, Generalized anxiety disorder F41.1 and Mild episode of recurrent major depressive disorder F33.0 [facility] [address] [place] [address] 70363- 3673 Nov, Internal derangement of right knee M23.91 [facility] [address] [place] [address] 89881 -4849 Nov, Acute right ankle pain M25.571 ; Acute pain of right knee M25.561 ; Acute left-sided low back pain without sciatica M54.5 and Right leg pain M79.604 [facility] [place] [address] [place] [address] 97526- 1217 15 Nov, 2017 [facility] [address], [place] [address]- 9097 14 Nov, 2017 Fibromyalgia M79.7 [facility] [place] [id number] [place] [address] 78809- 6627 13 Nov, 2017 Generalized anxiety disorder F41.1 and Mild episode of recurrent major depressive disorder F33.0 [facility] [address], [place] [address]- 5400 11 Nov, 2017 [facility] [id number] [place] [address] 02947- 6634 October, Generalized anxiety disorder F41.1 and Mild episode of recurrent major depressive disorder F33.0 [facility] [id number] [place] [address] 20311- 5987 October, Fibromyalgia M79.7 [facility] [id number] [place] [address] 49855- 8846 October, [facility] [id number] [place] [address] 24666- 0844 October, Generalized anxiety disorder F41.1 and Mild episode of recurrent major depressive disorder F33.0 [facility] [place] [id number] [place] [address] 52249- 5734 October, [facility] [id number] [place] [address] 59674- 7620 Sep, Gastroesophageal reflux disease, esophagitis presence not specified K21.9 and Abnormal laboratory test R89.9 [place] [id number] [place] [address] 73255- 1068 Sep, Fibromyalgia M79.7 [facility] [id number] [place] [address] 34402- 5045 Sep, Generalized anxiety disorder F41.1 and Mild episode of recurrent major depressive disorder F33.0 [facility] [id number] [place] [address] 98063- 2534 Sep, Epigastric pain R10.13 [place] [id number] [place] [address] 89590- 6446 10 Sep, 2017 Mild episode of recurrent major depressive disorder F33.0 and Generalized anxiety disorder F41.1 [facility] [id number] [place] [address] 88925- 6380 Sep, Abnormal laboratory test R89.9 [facility] [id number] [place] [address] 02666- 0251 Sep, Generalized anxiety disorder F41.1 and Mild episode of recurrent major depressive disorder F33.0 [facility] [id number] [place] [address] 82691- 6229 29 Aug, 2017 Epigastric pain R10.13 and Encounter for therapeutic drug level monitoring Z51.81 [facility] [id number] [place] [address] 89492 -8617 Aug, Epigastric pain R10.13 and Gastro-esophageal reflux disease without esophagitis K21.9 [facility] [id number] [place] [address] 51500- 5812 Aug, [facility] [address] 74929- 1170 Aug, Epigastric pain R10.13 [place] [address] 06295- 5234 Aug, Fibromyalgia M79.7 [facility] [address] 46903- 9124 14 Aug, 2017 [facility] [address] 29591- 2260 14 Aug, 2017 Generalized anxiety disorder F41.1 and Mild episode of recurrent major depressive disorder F33.0 [place] [id number] [place] [address] 37626- 5702 08 Aug, 2017 Epigastric pain R10.13 ; Reflex sympathetic dystrophy G90.50 and Arthritis M19.90 [facility] [id number] [place] [address] 42731- 0530 Jul, Generalized anxiety disorder F41.1 and Mild episode of recurrent major depressive disorder F33.0 [place] [id number] [place] [address] 06301- 0825 27 Jul, 2017 BMI 40.0-44.9, adult Z68.41 ; Mild episode of recurrent major depressive disorder F33.0 and Generalized anxiety disorder F41.1 [place] [address] [place] [address]- 9308 Jul, Fibromyalgia M79.7 [facility] [id number] [place] [address] 50675- 4216 Jun, Mild episode of recurrent major depressive disorder F33.0 and Generalized anxiety disorder F41.1 [facility] [id number] [place] [address] 15935- 6956 Jun, Fibromyalgia M79.7 [facility] [id number] [place] [address] 70531- 8828 Jun, Generalized anxiety disorder F41.1 and Mild episode of recurrent major depressive disorder F33.0 [place] [id number] [place] [address] 55497- 9239 Jun, Generalized anxiety disorder F41.1 and Mild episode of recurrent major depressive disorder F33.0 [place] [id number] [place] [address] 42927- 0820 Jun, Generalized anxiety disorder F41.1 and Mild episode of recurrent major depressive disorder F33.0 [facility] [id number] [place] [address] 65354- 9208 Jun, [facility] [id number] [place] [address] 29273- 5529 Jun, Generalized anxiety disorder F41.1 and Mild episode of recurrent major depressive disorder F33.0 [place] [id number] [place] [address] 92518- 2300 May, Fibromyalgia M79.7 [facility] [address] [place] [address] 33305- 0739 May, Generalized anxiety disorder F41.1 and Mild episode of recurrent major depressive disorder F33.0 [facility] [address] [place] [address] 52603- 3332 May, Mixed hyperlipidemia E78.2 ; Arthritis M19.90 ; Reactive depression F32.9 and Hypothyroidism, unspecified type E03.9 [facility] [id number] [place] [address] 32884- 1124 May, Arthritis M19.90 ; Reactive depression F32.9 ; Mixed hyperlipidemia E78.2 and Hypothyroidism, unspecified type E03.9 [facility] [id number] [place] [address] 95183- 9466 Apr, Fibromyalgia M79.7 [facility] [address] 85114- 2996 Apr, [facility] [address] 50615- 0566 Apr, Fibromyalgia M79.7 [facility] [address] 05541- 1597 Mar, Fibromyalgia M79.7 [facility] [address] 99028- 3890 Mar, [facility] [address] 64412- 0158 Mar, Fibromyalgia M79.7 [facility] [address] 51722- 6476 Mar, [facility] [id number] [place] [address] 83962- 2545 Feb, Reflex sympathetic dystrophy G90.50 ; Right arm pain M79.601 and Fibromyalgia M79.7 [facility] [id number] [place] [address] 45316- 2114 Feb, [facility] [id number] [place] [address] 96347- 2542 Feb, Anxiety F41.9 [facility] [address] 68543- 9565 06 Feb, 2017 Fibromyalgia M79.7 [facility] [id number] [place] [address] 54954- 2546 05 Feb, 2017 [facility] [id number] [place] [address] 76371- 2591 Feb, [facility] [address] 02484- 3000 Jan, Temporal headache R51 [facility] [id number] [place] [address] 46158- 0121 Jan, Fibromyalgia M79.7 [facility] [address] 59745- 0268 Dec, Fibromyalgia M79.7 [facility] [id number] [place] [address] 81340- 9046 Nov, Peroneal tendonitis, unspecified laterality M76.70 and Plantar fasciitis, bilateral M72.2 [facility] [id number] [place] [address] 21284- 7419 Nov, Fibromyalgia M79.7 [facility] [address] 11479- 9833 October, Fibromyalgia M79.7 [facility] [id number] [place] [address] 70667- 5131 October, Plantar fasciitis, bilateral M72.2 and Peroneal tendonitis, unspecified laterality M76.70 [facility] [id number] [place] [address] 56172- 7177 October, Fibromyalgia M79.7 [facility] [id number] [place] [address] 61803- 4207 Sep, Anxiety F41.9 [facility] [place] [id number] [place] [address] 11676- 2125 Aug, Anxiety F41.9 and Adjustment disorder with anxiety F43.22 [facility] [id number] [place] [address] 78901- 8034 Aug, Pain of left foot M79.672 [facility] [id number] [place] [address] 84707- 6861 Aug, Pain of left foot M79.672 and Pain in right foot M79.671 [place] [address]- 9369 Aug, Arthritis M19.90 ; Reactive depression F32.9 ; Fibromyalgia M79.7 ; Rosacea L71.9 ; Pain in right foot M79.671 and Pain of left foot M79.672 [place] [address] 46533- 0561 Aug, Anxiety F41.9 ; Adjustment disorder with anxiety F43.22 and Reactive depression F32.9 [place] [address] 79791- 8334 Aug, Right elbow pain M25.521 [place] [address] 64220- 8888 Aug, Plantar wart of right foot B07.0 and Actinic keratosis L57.0 [place] [address] 65775- 0978 Aug, Fibromyalgia M79.7 [facility] [address] 10489- 8254 Jul, Arthritis M19.90 ; Hypothyroidism, unspecified type E03.9 ; Reactive depression F32.9 and Venous insufficiency I87.2 [place] [address] 40005- 1251 Jul, Gastroesophageal reflux disease, esophagitis presence not specified K21.9 [facility] [address] 95213- 4431 Jul, Reflex sympathetic dystrophy G90.50 [place] [address] 36722- 5994 Jul, Anxiety F41.9 ; Adjustment disorder with anxiety F43.22 and Reactive depression F32.9 [place] [address] 82574- 6113 15 Jul, 2016 [facility] [address] 65446- 5187 03 Jul, 2016 Right elbow pain M25.521 [facility] [address] 22039- 9039 Jun, Fibromyalgia M79.7 [facility] [address] 85161- 1781 Jun, Anxiety F41.9 ; Adjustment disorder with anxiety F43.22 and Reactive depression F32.9 [place] [address] 71520- 9294 Jun, [facility] [address] 25318- 0732 Jun, Atypical chest pain R07.89 and Adjustment disorder with anxiety F43.22 [facility] [address] [id number] Jun, Chest pain, unspecified type R07.9 [facility] [address] 63315- 5964 Jun, Fibromyalgia M79.7 [facility] [address] 70277- 4355 May, Anxiety F41.9 [facility] [address] 01257- 3453 May, [facility] [address] 19995- 3368 13 May, 2016 Right elbow pain M25.521 [facility] [address] 41221- 5478 Apr, Reflex sympathetic dystrophy G90.50 and Encounter for immunization Z23 [facility] [address] 62260- 3747 Apr, [facility] [address], [place] [address]- 7552 Mar, [facility] [address] [address]- 2931 Feb, [facility] [address], [place] [address]- 7042 Feb, [facility] [id number] [place] [address], [place] [address]- 7870 Jan, [facility] [address] [place] [address] 33956- 4901 Jan, Right elbow pain M25.521 and Right wrist pain M25.531 [facility] [id number] [address]- 5503 Jan, [facility] [id number] [place] [address] 92589- 3527 Dec, Seborrheic keratoses L82.1 [facility] [address], [place] [address]- 9284 Dec, [facility] [id number] [address]- 4935 Dec, [facility] [address], [place] [address]- 1962 Dec, [facility] [id number] [address]- 0819 Dec, Fibromyalgia M79.7 and Hypothyroidism, unspecified type E03.9 [facility] [address], [place] [address]- 8632 Dec, Seborrheic keratoses L82.1 [facility] [address], [place] [address]- 3095 Dec, [facility] [address], [place] [address]- 9669 Dec, [facility] [address] [facility] [id number] [address]- 6641 Nov, Sebaceous cyst L72.3 [facility] [id number], [place] [address]- 9097 October, Breast cancer screening Z12.39 [facility] [id number] [address]- 4462 October, Fibromyalgia M79.7 ; Hypothyroidism, unspecified type E03.9 and Reflex sympathetic dystrophy G90.50 [facility] [address] [facility] [id number] [address]- 2998 October, Reflex sympathetic dystrophy G90.50 ; Fibromyalgia M79.7 and Hypothyroidism, unspecified type E03.9 IMMUNIZATIONS No Known Immunizations SOCIAL HISTORY Never Assessed REASON FOR VISIT f/u PLAN OF CARE Activity Details Follow Up 2 Weeks Reason:anxiety & depression VITAL SIGNS MEDICATIONS Unknown Medications RESULTS No Results PROCEDURES Procedure Date Ordered Result Body Site [facility] VISIT MENTAL [facility]ALTH ESTAB PT January 11, 2018 Psychotherapy, patient &/family, 45 minutes, established patient January 11, 2018 INSTRUCTIONS MEDICATIONS ADMINISTERED No Known Medications [...]
--- OUTSIDE RECORDS SUMMARY | 2018-03-07 18:14 | XMS REPORT ---
Author Author BAMBI POLLY Organization [facility] Address [address] [place] [address] Care Team Providers Care Powder Hand Name Role Phone MANAVKAYA VARMAA Unavailable PROBLEMS Type Condition ICD9-CM Code ILD62-LE Code Onset Dates Condition Status SNOMED Code Problem Reactive depression F32.9 Active 69177023 Problem Plantar wart of right foot B07.0 Active 45459384 Problem Gastroesophageal reflux disease, esophagitis presence not specified K21.9 Active 389731508 Problem Internal derangement of right knee M23.91 Active 738051301954855 Problem Abnormal laboratory test R89.9 Active 864285357 Problem Mixed hyperlipidemia E78.2 Active 969950261 Problem Rosacea L71.9 Active 224281363 Problem Mild episode of recurrent major depressive disorder F33.0 Active 878429911 Problem Generalized anxiety disorder F41.1 Active 50630277 Problem Hypothyroidism, unspecified type E03.9 Active 01351223 Problem Right elbow pain M25.521 Active 32769875 Problem Right wrist pain M25.531 Active 15993701 Problem Reflex sympathetic dystrophy G90.50 Active 33835938 Problem Venous insufficiency I87.2 Active 08122535 Problem Fibromyalgia M79.7 Active 252173098 Problem Arthritis M19.90 Active 7440609 ALLERGIES No Information ENCOUNTERS Encounter Location Date Diagnosis [facility] [address] [facility] [id number] [address] Mar, [facility] [id number] [address] Mar, [facility] [address] [address] Feb, [facility] [id number] [address] Feb, [place] [id number] [place] [address] 32148- 0627 Feb, Generalized anxiety disorder F41.1 and Mild episode of recurrent major depressive disorder F33.0 [place] [id number] [place] [address] 24485- 4389 Feb, [place] [id number] [place] [address] 21020- 1302 Feb, Bronchospasm J98.01 and Arthritis M19.90 [place] [id number] [place] [address] 32344- 3637 Jan, Medicare annual wellness visit, initial Z00.00 ; Reactive depression F32.9 ; Reflex sympathetic dystrophy G90.50 ; Fibromyalgia M79.7 ; BMI 40.0-44.9, adult Z68.41 ; Hypothyroidism, unspecified type E03.9 ; Gastroesophageal reflux disease, esophagitis presence not specified K21.9 ; Family history of osteoporosis Z82.62 ; Venous insufficiency I87.2 ; Arthritis M19.90 ; Mixed hyperlipidemia E78.2 and Generalized anxiety disorder F41.1 [place] [id number] [place] [address] 79482- 7307 Jan, Generalized anxiety disorder F41.1 and Mild episode of recurrent major depressive disorder F33.0 [place] [id number] [place] [address] 09028- 9062 Jan, Mild episode of recurrent major depressive disorder F33.0 and Generalized anxiety disorder F41.1 [place] [id number] [place] [address] 33783- 0645 Jan, Fibromyalgia M79.7 [place] [id number] [place] [address] 51531- 4923 Jan, Bronchospasm J98.01 [place] [id number] [place] [address] 24894- 1312 Jan, [place] [id number] [place] [address] 87911- 6595 Jan, Generalized anxiety disorder F41.1 and Mild episode of recurrent major depressive disorder F33.0 [facility] [id number] [place] [address] 99838- 7797 Jan, Bronchitis J40 [facility] [id number] [place] [address] 37631- 5777 Dec, Mild episode of recurrent major depressive disorder F33.0 [facility] [id number] [place] [address] 89460- 4849 Dec, Generalized anxiety disorder F41.1 and Mild episode of recurrent major depressive disorder F33.0 [facility] [id number] [place] [address] 01700- 3590 Dec, Fibromyalgia M79.7 ; Arthritis M19.90 and Generalized anxiety disorder F41.1 [facility] [id number] [place] [address] 59789- 3355 Dec, Mild episode of recurrent major depressive disorder F33.0 and Generalized anxiety disorder F41.1 [facility] [id number] [place] [address] 68388- 5293 Dec, Fibromyalgia M79.7 [facility] [id number] [place] [address] 25923- 7860 Dec, Bronchitis J40 and Internal derangement of right knee M23.91 [facility] [id number] [place] [address] 02410 -1973 Dec, Cough R05 [facility] [id number] [place] [address] 06018- 8058 Dec, Generalized anxiety disorder F41.1 and Mild episode of recurrent major depressive disorder F33.0 [facility] [id number] [place] [address] 70863- 3569 Dec, [facility] [id number] [place] [address] 30139 -0103 Dec, [facility] [address] [place] [address] 0794 02 Dec, 2017 Mild episode of recurrent major depressive disorder F33.0 and Generalized anxiety disorder F41.1 [facility] [id number] [place] [address] 45698- 6017 30 Nov, 2017 [facility] [id number] [place] [address] 38985- 2980 Nov, [facility] [id number] [place] [address] 27056- 7667 Nov, [facility] [id number] [place] [address] 97107- 1450 Nov, Internal derangement of right knee M23.91 [facility] [id number] [place] [address] 75979- 3478 Nov, Generalized anxiety disorder F41.1 and Mild episode of recurrent major depressive disorder F33.0 [facility] [id number] [place] [address] 31799- 3881 Nov, Internal derangement of right knee M23.91 [facility] [id number] [place] [address] 87298 -4339 19 Nov, 2017 Acute right ankle pain M25.571 ; Acute pain of right knee M25.561 ; Acute left-sided low back pain without sciatica M54.5 and Right leg pain M79.604 [facility] [id number] [place] [address] 34136- 5977 15 Nov, 2017 [facility] [id number] [place] [address] 95138- 9831 14 Nov, 2017 Fibromyalgia M79.7 [facility] [id number] [place] [address] 62421- 5855 13 Nov, 2017 Generalized anxiety disorder F41.1 and Mild episode of recurrent major depressive disorder F33.0 [facility] [id number] [place] [address] 53427- 5185 11 Nov, 2017 [facility] [id number] [place] [address] 35387- 9135 October, Generalized anxiety disorder F41.1 and Mild episode of recurrent major depressive disorder F33.0 [facility] [id number] [place] [address] 12065- 4566 October, Fibromyalgia M79.7 [facility] [id number] [place] [address] 44931- 3430 October, [facility] [id number] [place] [address] 26146- 9025 October, Generalized anxiety disorder F41.1 and Mild episode of recurrent major depressive disorder F33.0 [facility] [id number] [place] [address] 72182- 3932 October, [facility] [id number] [place] [address] 21031- 5991 Sep, Gastroesophageal reflux disease, esophagitis presence not specified K21.9 and Abnormal laboratory test R89.9 [facility] [id number] [place] [address] 91213- 2982 Sep, Fibromyalgia M79.7 [facility] [id number] [place] [address] 19909- 0118 Sep, Generalized anxiety disorder F41.1 and Mild episode of recurrent major depressive disorder F33.0 [facility] [id number] [place] [address] 67696- 2808 Sep, Epigastric pain R10.13 [facility] [id number] [place] [address] 78966- 4312 10 Sep, 2017 Mild episode of recurrent major depressive disorder F33.0 and Generalized anxiety disorder F41.1 [facility] [id number] [place] [address] 84015- 8103 Sep, Abnormal laboratory test R89.9 [facility] [id number] [place] [address] 71839- 1733 Sep, Generalized anxiety disorder F41.1 and Mild episode of recurrent major depressive disorder F33.0 [facility] [id number] [place] [address] 26423- 5944 29 Aug, 2017 Epigastric pain R10.13 and Encounter for therapeutic drug level monitoring Z51.81 [facility] [id number] [place] [address] 38088 -6945 Aug, Epigastric pain R10.13 and Gastro-esophageal reflux disease without esophagitis K21.9 [facility] [id number] [place] [address] 06945- 9239 Aug, [place] [address] 73642- 8928 Aug, Epigastric pain R10.13 [place] [address] 60294- 4086 Aug, Fibromyalgia M79.7 [facility] [id number] [place] [address] 32154- 6423 14 Aug, 2017 [facility] [id number] [place] [address] 75621- 5364 14 Aug, 2017 Generalized anxiety disorder F41.1 and Mild episode of recurrent major depressive disorder F33.0 [place] [id number] [place] [address] 99391- 8721 08 Aug, 2017 Epigastric pain R10.13 ; Reflex sympathetic dystrophy G90.50 and Arthritis M19.90 [facility] [id number] [place] [address] 28341- 7245 Jul, Generalized anxiety disorder F41.1 and Mild episode of recurrent major depressive disorder F33.0 [place] [address] 46164- 3522 27 Jul, 2017 BMI 40.0-44.9, adult Z68.41 ; Mild episode of recurrent major depressive disorder F33.0 and Generalized anxiety disorder F41.1 [place] [address] [address]- 5064 Jul, Fibromyalgia M79.7 [facility] [id number] [place] [address] 57615- 8046 Jun, Mild episode of recurrent major depressive disorder F33.0 and Generalized anxiety disorder F41.1 [facility] [id number] [place] [address] 53560- 6046 Jun, Fibromyalgia M79.7 [facility] [id number] [place] [address] 57081- 8609 Jun, Generalized anxiety disorder F41.1 and Mild episode of recurrent major depressive disorder F33.0 [facility] [id number] [place] [address] 49454- 7069 Jun, Generalized anxiety disorder F41.1 and Mild episode of recurrent major depressive disorder F33.0 [facility] [id number] [place] [address] 55369- 7705 Jun, Generalized anxiety disorder F41.1 and Mild episode of recurrent major depressive disorder F33.0 [facility] [id number] [place] [address] 18572- 8001 Jun, [facility] [id number] [place] [address] 60650- 1261 Jun, Generalized anxiety disorder F41.1 and Mild episode of recurrent major depressive disorder F33.0 [facility] [id number] [place] [address] 75006- 2486 May, Fibromyalgia M79.7 [facility] [id number] [place] [address] 38531 2546 May, Generalized anxiety disorder F41.1 and Mild episode of recurrent major depressive disorder F33.0 [facility] [id number] [place] [address] 16567- 4306 May, Mixed hyperlipidemia E78.2 ; Arthritis M19.90 ; Reactive depression F32.9 and Hypothyroidism, unspecified type E03.9 [facility] [id number] [place] [address] 77837- 0733 May, Arthritis M19.90 ; Reactive depression F32.9 ; Mixed hyperlipidemia E78.2 and Hypothyroidism, unspecified type E03.9 [facility] [id number] [place] [address] 88500- 9991 Apr, Fibromyalgia M79.7 [facility] [address] 28887- 2726 Apr, [facility] [address] 67038- 3343 Apr, Fibromyalgia M79.7 [facility] [address] 59013- 3729 Mar, Fibromyalgia M79.7 [facility] [address] 50623- 7113 Mar, [facility] [address] 97811- 3772 Mar, Fibromyalgia M79.7 [facility] [address] 47953- 5331 Mar, [facility] [id number] [place] [address] 02408- 2540 Feb, Reflex sympathetic dystrophy G90.50 ; Right arm pain M79.601 and Fibromyalgia M79.7 [facility] [id number] [place] [address] 17286 2540 Feb, [facility] [id number] [place] [address] 19754- 2543 07 Feb, 2017 Anxiety F41.9 [facility] [id number] [place] [address] 86724- 2544 06 Feb, 2017 Fibromyalgia M79.7 [facility] [id number] [place] [address] 97048 2546 05 Feb, 2017 [facility] [id number] [place] [address] 76332- 0387 Feb, [facility] [id number] [place] [address] 10458- 8279 Jan, Temporal headache R51 [facility] [id number] [place] [address] 66970- 0364 Jan, Fibromyalgia M79.7 [facility] [address] 55259- 0432 Dec, Fibromyalgia M79.7 [facility] [id number] [place] [address] 19697- 9923 Nov, Peroneal tendonitis, unspecified laterality M76.70 and Plantar fasciitis, bilateral M72.2 [facility] [id number] [place] [address] 61570- 6466 Nov, Fibromyalgia M79.7 [facility] [id number] [place] [address] 90888- 0525 October, Fibromyalgia M79.7 [facility] [id number] [place] [address] 28609- 8237 October, Plantar fasciitis, bilateral M72.2 and Peroneal tendonitis, unspecified laterality M76.70 [facility] [id number] [place] [address] 63074- 5544 October, Fibromyalgia M79.7 [facility] [id number] [place] [address] 34076- 9355 Sep, Anxiety F41.9 [facility] [id number] [place] [address] 71019- 7955 Aug, Anxiety F41.9 and Adjustment disorder with anxiety F43.22 [facility] [id number] [place] [address] 33380- 2689 Aug, Pain of left foot M79.672 [facility] [id number] [place] [address] 03470- 3989 Aug, Pain of left foot M79.672 and Pain in right foot M79.671 [place] [address] 42438- 4140 Aug, Arthritis M19.90 ; Reactive depression F32.9 ; Fibromyalgia M79.7 ; Rosacea L71.9 ; Pain in right foot M79.671 and Pain of left foot M79.672 [place] [address] 44042- 4726 Aug, Anxiety F41.9 ; Adjustment disorder with anxiety F43.22 and Reactive depression F32.9 [place] [address] 31897- 6199 Aug, Right elbow pain M25.521 [place] [address] 31977- 5957 Aug, Plantar wart of right foot B07.0 and Actinic keratosis L57.0 [place] [address] 31477- 5474 Aug, Fibromyalgia M79.7 [place] [address] 63041- 0616 Jul, Arthritis M19.90 ; Hypothyroidism, unspecified type E03.9 ; Reactive depression F32.9 and Venous insufficiency I87.2 [place] [address] 37474- 0705 Jul, Gastroesophageal reflux disease, esophagitis presence not specified K21.9 [place] [address] 21621- 9888 Jul, Reflex sympathetic dystrophy G90.50 [place] [address] 16658- 4194 Jul, Anxiety F41.9 ; Adjustment disorder with anxiety F43.22 and Reactive depression F32.9 [place] [address] 88461- 0622 15 Jul, 2016 [facility] [address] 01759- 5146 03 Jul, 2016 Right elbow pain M25.521 [facility] [address] 73318- 8355 Jun, Fibromyalgia M79.7 [facility] [address] 18085- 5117 Jun, Anxiety F41.9 ; Adjustment disorder with anxiety F43.22 and Reactive depression F32.9 [place] [address] 55955- 8552 Jun, [place] [address] 59356- 5993 Jun, Atypical chest pain R07.89 and Adjustment disorder with anxiety F43.22 [place] [address] [id number] Jun, Chest pain, unspecified type R07.9 [place] [address] 04454- 2426 Jun, Fibromyalgia M79.7 [place] [address] 17106- 5979 May, Anxiety F41.9 [place] [address] 50723- 0749 May, [place] [address] 79961- 4587 May, Right elbow pain M25.521 [place] [address] 69141- 4995 Apr, Reflex sympathetic dystrophy G90.50 and Encounter for immunization Z23 [place] [address] 98007- 7632 Apr, [facility] [address] [address]- 6779 Mar, [facility] [id number] [place] [address] 16684- 3156 Feb, [facility] [address] [address]- 7495 Feb, [facility] [id number] [place] [address] 15753- 8353 Jan, [facility] [address] [place] [address] 10072- 4240 Jan, Right elbow pain M25.521 and Right wrist pain M25.531 [facility] [id number] [place] [address] 40728- 7174 Jan, [facility] [id number] [place] [address] 32613- 1162 Dec, Seborrheic keratoses L82.1 [facility] [id number] [place] [address] 94223- 7293 Dec, [facility] [id number] [place] [address] 08293- 6502 Dec, [facility] [address] [address]- 3690 Dec, [facility] [id number] [place] [address] 54171- 0008 Dec, Fibromyalgia M79.7 and Hypothyroidism, unspecified type E03.9 [facility] [address] [address]- 4952 Dec, Seborrheic keratoses L82.1 [facility] [address] [address]- 4757 Dec, [facility] [id number] [place] [address] 07349- 4405 Dec, [place] [address] [facility] [id number] [address]- 7788 Nov, Sebaceous cyst L72.3 [place] [address] [facility] [id number] [address]- 2840 October, Breast cancer screening Z12.39 [place] [address] [facility] [id number] [address]- 1036 October, Fibromyalgia M79.7 ; Hypothyroidism, unspecified type E03.9 and Reflex sympathetic dystrophy G90.50 [place] [address] [facility] [id number] [address]- 3151 October, Reflex sympathetic dystrophy G90.50 ; Fibromyalgia M79.7 and Hypothyroidism, unspecified type E03.9 IMMUNIZATIONS No Known Immunizations SOCIAL HISTORY Never Assessed REASON FOR VISIT Refill request PLAN OF CARE VITAL SIGNS MEDICATIONS Medication Instructions Dosage Frequency Start Date End Date Duration Status Rexulti 2 MG Orally Once a day 1 tablet 24h Nov, 30 days Active RESULTS No Results PROCEDURES [...]
--- OUTSIDE RECORDS SUMMARY | 2018-03-07 18:15 | XMS REPORT ---
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 Name Role Phone MANAVKAYA VARMAA Unavailable PROBLEMS Type Condition ICD9-CM Code UAE90-QM Code Onset Dates Condition Status SNOMED Code Problem Reactive depression F32.9 Active 14921289 Problem Plantar wart of right foot B07.0 Active 84129160 Problem Gastroesophageal reflux disease, esophagitis presence not specified K21.9 Active 589045654 Problem Internal derangement of right knee M23.91 Active [id number] Problem Abnormal laboratory test R89.9 Active 746026492 Problem Mixed hyperlipidemia E78.2 Active 932068502 Problem Rosacea L71.9 Active 976662443 Problem Mild episode of recurrent major depressive disorder F33.0 Active 862415351 Problem Generalized anxiety disorder F41.1 Active 85348251 Problem Hypothyroidism, unspecified type E03.9 Active 00499765 Problem Right elbow pain M25.521 Active 59051625 Problem Right wrist pain M25.531 Active 89879365 Problem Reflex sympathetic dystrophy G90.50 Active 63801808 Problem Venous insufficiency I87.2 Active 05353035 Problem Fibromyalgia M79.7 Active 255513958 Problem Arthritis M19.90 Active 7855408 ALLERGIES No Information ENCOUNTERS Encounter Location Date Diagnosis [facility] [address] [facility] [id number] [address] Mar, [facility] [address] [id number] [address] Mar, [facility] [address] [address] Feb, [facility] [address] [id number], [place] [address] Feb, [place] [id number] [place] [address] 58146- 8824 Feb, Generalized anxiety disorder F41.1 and Mild episode of recurrent major depressive disorder F33.0 [place] [id number] [place] [address] 27680- 0282 Feb, [place] [id number] [place] [address] 55091- 9374 Feb, Bronchospasm J98.01 and Arthritis M19.90 [place] [id number] [place] [address] 63929- 2825 Jan, Medicare annual wellness visit, initial Z00.00 ; Reactive depression F32.9 ; Reflex sympathetic dystrophy G90.50 ; Fibromyalgia M79.7 ; BMI 40.0-44.9, adult Z68.41 ; Hypothyroidism, unspecified type E03.9 ; Gastroesophageal reflux disease, esophagitis presence not specified K21.9 ; Family history of osteoporosis Z82.62 ; Venous insufficiency I87.2 ; Arthritis M19.90 ; Mixed hyperlipidemia E78.2 and Generalized anxiety disorder F41.1 [place] [id number] [place] [address] 52830- 2676 Jan, Generalized anxiety disorder F41.1 and Mild episode of recurrent major depressive disorder F33.0 [place] [id number] [place] [address] 53821- 1254 Jan, Mild episode of recurrent major depressive disorder F33.0 and Generalized anxiety disorder F41.1 [place] [id number] [place] [address] 04151- 2443 Jan, Fibromyalgia M79.7 [place] [id number] [place] [address] 85952- 9469 Jan, Bronchospasm J98.01 [place] [id number] [place] [address] 72611- 4400 Jan, [place] [id number] [place] [address] 27617- 3112 Jan, Generalized anxiety disorder F41.1 and Mild episode of recurrent major depressive disorder F33.0 [facility] [id number] [place] [address] 09784- 7393 Jan, Bronchitis J40 [facility] [id number] [place] [address] 16885- 5074 Dec, Mild episode of recurrent major depressive disorder F33.0 [facility] [id number] [place] [address] 63508- 6514 Dec, Generalized anxiety disorder F41.1 and Mild episode of recurrent major depressive disorder F33.0 [facility] [id number] [place] [address] 09084- 3230 Dec, Fibromyalgia M79.7 ; Arthritis M19.90 and Generalized anxiety disorder F41.1 [facility] [id number] [place] [address] 99033- 1151 Dec, Mild episode of recurrent major depressive disorder F33.0 and Generalized anxiety disorder F41.1 [facility] [id number] [place] [address] 39196- 7555 Dec, Fibromyalgia M79.7 [facility] [id number] [place] [address] 14585- 8937 Dec, Bronchitis J40 and Internal derangement of right knee M23.91 [facility] [id number] [place] [address] 73551 -3458 Dec, Cough R05 [facility] [id number] [place] [address] 61536- 3484 Dec, Generalized anxiety disorder F41.1 and Mild episode of recurrent major depressive disorder F33.0 [facility] [id number] [place] [address] 44192- 7289 Dec, [facility] [id number] [place] [address] 99298 -9214 Dec, [facility] [address] [place] [address] 3[address] 02 Dec, 2017 Mild episode of recurrent major depressive disorder F33.0 and Generalized anxiety disorder F41.1 [facility] [id number] [place] [address] 10200- 0831 30 Nov, 2017 [facility] [id number] [place] [address] 93917- 2078 Nov, [facility] [id number] [place] [address] 37373- 9786 Nov, [facility] [id number] [place] [address] 95686- 9296 Nov, Internal derangement of right knee M23.91 [facility] [id number] [place] [address] 44683- 5809 Nov, Generalized anxiety disorder F41.1 and Mild episode of recurrent major depressive disorder F33.0 [facility] [id number] [place] [address] 34472- 7654 Nov, Internal derangement of right knee M23.91 [facility] [id number] [place] [address] 73033 -4093 19 Nov, 2017 Acute right ankle pain M25.571 ; Acute pain of right knee M25.561 ; Acute left-sided low back pain without sciatica M54.5 and Right leg pain M79.604 [facility] [id number] [place] [address] 58867- 9509 15 Nov, 2017 [facility] [id number] [place] [address] 18868- 8623 14 Nov, 2017 Fibromyalgia M79.7 [facility] [id number] [place] [address] 47251- 8745 13 Nov, 2017 Generalized anxiety disorder F41.1 and Mild episode of recurrent major depressive disorder F33.0 [facility] [address] [place] [address] 77787- 5056 11 Nov, 2017 [facility] [address] [place] [address] 49471- 1634 October, Generalized anxiety disorder F41.1 and Mild episode of recurrent major depressive disorder F33.0 [facility] [id number] [place] [address] 17696- 1301 October, Fibromyalgia M79.7 [facility] [id number] [place] [address] 41467- 7182 October, [facility] [id number] [place] [address] 29548- 2409 October, Generalized anxiety disorder F41.1 and Mild episode of recurrent major depressive disorder F33.0 [facility] [id number] [place] [address] 63131- 7333 October, [facility] [id number] [place] [address] 64723- 1237 Sep, Gastroesophageal reflux disease, esophagitis presence not specified K21.9 and Abnormal laboratory test R89.9 [facility] [id number] [place] [address] 14874- 1175 Sep, Fibromyalgia M79.7 [facility] [id number] [place] [address] 60583- 2069 Sep, Generalized anxiety disorder F41.1 and Mild episode of recurrent major depressive disorder F33.0 [facility] [id number] [place] [address] 17182- 7972 Sep, Epigastric pain R10.13 [facility] [id number] [place] [address] 05551- 3319 10 Sep, 2017 Mild episode of recurrent major depressive disorder F33.0 and Generalized anxiety disorder F41.1 [facility] [id number] [place] [address] 65259- 2317 Sep, Abnormal laboratory test R89.9 [facility] [id number] [place] [address] 45004- 4591 Sep, Generalized anxiety disorder F41.1 and Mild episode of recurrent major depressive disorder F33.0 [facility] [id number] [place] [address] 10101- 6985 29 Aug, 2017 Epigastric pain R10.13 and Encounter for therapeutic drug level monitoring Z51.81 [facility] [id number] [place] [address] 29440 -1987 Aug, Epigastric pain R10.13 and Gastro-esophageal reflux disease without esophagitis K21.9 [facility] [id number] [place] [address] 79059- 3946 Aug, [place] [address] 57416- 3087 Aug, Epigastric pain R10.13 [place] [address] 16238- 3593 Aug, Fibromyalgia M79.7 [facility] [id number] [place] [address] 12846- 3735 14 Aug, 2017 [facility] [id number] [place] [address] 30428- 3285 14 Aug, 2017 Generalized anxiety disorder F41.1 and Mild episode of recurrent major depressive disorder F33.0 [place] [id number] [place] [address] 53800- 8955 08 Aug, 2017 Epigastric pain R10.13 ; Reflex sympathetic dystrophy G90.50 and Arthritis M19.90 [facility] [id number] [place] [address] 39733- 7498 Jul, Generalized anxiety disorder F41.1 and Mild episode of recurrent major depressive disorder F33.0 [place] [address] 13781- 6688 27 Jul, 2017 BMI 40.0-44.9, adult Z68.41 ; Mild episode of recurrent major depressive disorder F33.0 and Generalized anxiety disorder F41.1 [place] [address] [address] 1932 Jul, Fibromyalgia M79.7 [facility] [id number] [place] [address] 48483- 2456 Jun, Mild episode of recurrent major depressive disorder F33.0 and Generalized anxiety disorder F41.1 [facility] [id number] [place] [address] 38863- 2766 Jun, Fibromyalgia M79.7 [facility] [id number] [place] [address] 02353- 3356 Jun, Generalized anxiety disorder F41.1 and Mild episode of recurrent major depressive disorder F33.0 [facility] [id number] [place] [address] 51065- 3393 Jun, Generalized anxiety disorder F41.1 and Mild episode of recurrent major depressive disorder F33.0 [facility] [id number] [place] [address] 22339- 4487 Jun, Generalized anxiety disorder F41.1 and Mild episode of recurrent major depressive disorder F33.0 [facility] [address] [place] [address] 59955- 5331 Jun, [facility] [id number] [place] [address] 51612- 1542 Jun, Generalized anxiety disorder F41.1 and Mild episode of recurrent major depressive disorder F33.0 [facility] [address] [place] [address] 18639- 5086 May, Fibromyalgia M79.7 [facility] [address] [place] [address] 81866 2546 May, Generalized anxiety disorder F41.1 and Mild episode of recurrent major depressive disorder F33.0 [facility] [address] [place] [address] 30357- 6156 May, Mixed hyperlipidemia E78.2 ; Arthritis M19.90 ; Reactive depression F32.9 and Hypothyroidism, unspecified type E03.9 [facility] [id number] [place] [address] 39704- 2368 May, Arthritis M19.90 ; Reactive depression F32.9 ; Mixed hyperlipidemia E78.2 and Hypothyroidism, unspecified type E03.9 [facility] [id number] [place] [address] 24923- 9340 Apr, Fibromyalgia M79.7 [facility] [address] 89577- 2526 Apr, [facility] [address] 74186- 0713 Apr, Fibromyalgia M79.7 [facility] [address] 87667- 6010 Mar, Fibromyalgia M79.7 [facility] [address] 05425- 6512 Mar, [facility] [address] 57165- 7101 Mar, Fibromyalgia M79.7 [facility] [address] 88271- 6456 Mar, [facility] [id number] [place] [address] 68971- 2543 Feb, Reflex sympathetic dystrophy G90.50 ; Right arm pain M79.601 and Fibromyalgia M79.7 [facility] [id number] [place] [address] 12413 2548 Feb, [facility] [id number] [place] [address] 99427- 2544 07 Feb, 2017 Anxiety F41.9 [facility] [id number] [place] [address] 81783- 2541 06 Feb, 2017 Fibromyalgia M79.7 [facility] [id number] [place] [address] 33680 2546 05 Feb, 2017 [facility] [id number] [place] [address] 60943- 5327 Feb, [facility] [id number] [place] [address] 49343- 9680 Jan, Temporal headache R51 [facility] [id number] [place] [address] 12311- 4036 Jan, Fibromyalgia M79.7 [facility] [address] 16571- 1565 Dec, Fibromyalgia M79.7 [facility] [id number] [place] [address] 07339- 1317 Nov, Peroneal tendonitis, unspecified laterality M76.70 and Plantar fasciitis, bilateral M72.2 [facility] [id number] [place] [address] 06943- 1844 Nov, Fibromyalgia M79.7 [facility] [id number] [place] [address] 81458- 1532 October, Fibromyalgia M79.7 [facility] [id number] [place] [address] 33147- 8592 October, Plantar fasciitis, bilateral M72.2 and Peroneal tendonitis, unspecified laterality M76.70 [facility] [id number] [place] [address] 34459- 9395 October, Fibromyalgia M79.7 [facility] [id number] [place] [address] 45605- 3335 Sep, Anxiety F41.9 [facility] [id number] [place] [address] 61768- 1201 Aug, Anxiety F41.9 and Adjustment disorder with anxiety F43.22 [facility] [id number] [place] [address] 24321- 9496 Aug, Pain of left foot M79.672 [facility] [id number] [place] [address] 66670- 9324 Aug, Pain of left foot M79.672 and Pain in right foot M79.671 [place] [address] 42483- 7070 Aug, Arthritis M19.90 ; Reactive depression F32.9 ; Fibromyalgia M79.7 ; Rosacea L71.9 ; Pain in right foot M79.671 and Pain of left foot M79.672 [place] [address] 76766- 3312 Aug, Anxiety F41.9 ; Adjustment disorder with anxiety F43.22 and Reactive depression F32.9 [place] [address] 20346- 9074 Aug, Right elbow pain M25.521 [place] [address] 34599- 5874 Aug, Plantar wart of right foot B07.0 and Actinic keratosis L57.0 [place] [address] 09338- 0427 Aug, Fibromyalgia M79.7 [place] [address] 81137- 2597 Jul, Arthritis M19.90 ; Hypothyroidism, unspecified type E03.9 ; Reactive depression F32.9 and Venous insufficiency I87.2 [place] [address] 31471- 3983 Jul, Gastroesophageal reflux disease, esophagitis presence not specified K21.9 [place] [address] 26402- 0565 Jul, Reflex sympathetic dystrophy G90.50 [place] [address] 60492- 6274 Jul, Anxiety F41.9 ; Adjustment disorder with anxiety F43.22 and Reactive depression F32.9 [place] [address] 59527- 4714 15 Jul, 2016 [facility] [address] 41581- 1196 03 Jul, 2016 Right elbow pain M25.521 [facility] [address] 69188- 7598 Jun, Fibromyalgia M79.7 [facility] [address] 37841- 1037 Jun, Anxiety F41.9 ; Adjustment disorder with anxiety F43.22 and Reactive depression F32.9 [place] [address] 52219- 7044 Jun, [place] [address] 75730- 1785 Jun, Atypical chest pain R07.89 and Adjustment disorder with anxiety F43.22 [place] [address] [id number] Jun, Chest pain, unspecified type R07.9 [place] [address] 39064- 2554 Jun, Fibromyalgia M79.7 [place] [address] 71835- 0446 May, Anxiety F41.9 [place] [address] 65986- 9978 May, [place] [address] 63666- 3896 May, Right elbow pain M25.521 [place] [address] 59588- 0984 Apr, Reflex sympathetic dystrophy G90.50 and Encounter for immunization Z23 [place] [address] 98864- 9034 Apr, [facility] [address], [place] [address]- 8629 Mar, [facility] [id number] [place] [address] 52949- 2686 Feb, [facility] [address], [place] [address]- 3887 Feb, [facility] [id number] [place] [address] 24822- 1510 Jan, [facility] [address] [place] [address] 63428- 5071 Jan, Right elbow pain M25.521 and Right wrist pain M25.531 [facility] [id number] [place] [address] 42101- 1400 Jan, [facility] [id number] [place] [address] 53092- 1081 Dec, Seborrheic keratoses L82.1 [facility] [id number] [place] [address] 61024- 3768 Dec, [facility] [id number] [place] [address] 47249- 6167 Dec, [facility] [address] [address]- 8842 Dec, [facility] [id number] [place] [address] 80362- 6366 Dec, Fibromyalgia M79.7 and Hypothyroidism, unspecified type E03.9 [facility] [address] [address]- 0689 Dec, Seborrheic keratoses L82.1 [facility] [address] [address]- 5397 Dec, [facility] [id number] [place] [address] 28417- 2058 Dec, [place] [address] [facility] [id number] [address]- 4429 Nov, Sebaceous cyst L72.3 [place] [address] [facility] [id number] [address]- 1729 October, Breast cancer screening Z12.39 [place] [id number] [address]- 1215 October, Fibromyalgia M79.7 ; Hypothyroidism, unspecified type E03.9 and Reflex sympathetic dystrophy G90.50 [place] [address] [facility] [id number] [address]- 5431 October, Reflex sympathetic dystrophy G90.50 ; Fibromyalgia M79.7 and Hypothyroidism, unspecified type E03.9 IMMUNIZATIONS No Known Immunizations SOCIAL HISTORY Never Assessed REASON FOR VISIT f/zaki Mathew MA PLAN OF CARE Activity Details Follow Up 4 Weeks Reason: VITAL SIGNS Height 62 in 2018-01-10 Weight 213.5 lbs 2018-01-10 Heart Rate 90 bpm 2018-01-10 Respiratory Rate 18 2018-01-10 BMI 39.05 kg/m2 2018-01-10 Blood pressure systolic 118 mmHg 2018-01-10 Blood pressure diastolic 74 mmHg 2018-01-10 MEDICATIONS Medication Instructions Dosage Frequency Start Date End Date Duration Status Celebrex 200 MG Orally Once a day 1 capsule with food 24h Active Orphenadrine Citrate ER 100 mg Orally twice a day 1 tablet 12h Active Excedrin Migraine 250-250-65 MG Orally every 6 hrs 2 tablets as needed 6h Active Amitriptyline HCl 10 mg Orally QHS 1 tablet Active Rexulti 2 MG Orally Once a day 1 tablet 24h Nov, Active Hydrocodone-Acetaminophen 7.5-325 MG Orally 3 times a day 1 tablet 8h Dec, 28 days Active Cetirizine HCl 10 MG Orally Once a day 1 tablet 24h Active Fiorinal 50-325-40 MG Orally every 4 hrs 1 capsule as needed 4h Jan, Active Pantoprazole Sodium 40MG Orally Once a day 1 tablet 24h Active Levothyroxine Sodium 75MCG TAKE ONE TABLET BY MOUTH ONCE DAILY Active Cane - as directed Nov, Active Tizanidine HCl 4 MG Orally Three times a day 1 tablet as needed 8h Active Topiramate 200MG Orally twice a day 1 tablet 12h Active HydrOXYzine HCl 10 MG Orally three times a day as needed for anxiety and sleep 1 tablet May, Active RESULTS No Results PROCEDURES Procedure Date Ordered Result Body Site [facility] VISIT ESTABLISHED PATIENT January 10, 2018 INSTRUCTIONS MEDICATIONS ADMINISTERED No Known Medications [...]
--- OUTSIDE RECORDS SUMMARY | 2018-03-07 18:15 | XMS REPORT ---
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 Name Role Phone JOE BAI Unavailable PROBLEMS Type Condition ICD9-CM Code ASD93-ZS Code Onset Dates Condition Status SNOMED Code Problem Reactive depression F32.9 Active 84686517 Problem Plantar wart of right foot B07.0 Active 12606352 Problem Gastroesophageal reflux disease, esophagitis presence not specified K21.9 Active 277861623 Problem Internal derangement of right knee M23.91 Active 366543404235361 Problem Abnormal laboratory test R89.9 Active 089863512 Problem Mixed hyperlipidemia E78.2 Active 297299531 Problem Rosacea L71.9 Active 513303899 Problem Mild episode of recurrent major depressive disorder F33.0 Active 604658812 Problem Generalized anxiety disorder F41.1 Active 24147060 Problem Hypothyroidism, unspecified type E03.9 Active 58906112 Problem Right elbow pain M25.521 Active 61317183 Problem Right wrist pain M25.531 Active 37379789 Problem Reflex sympathetic dystrophy G90.50 Active 75494577 Problem Venous insufficiency I87.2 Active 32521286 Problem Fibromyalgia M79.7 Active 314273100 Problem Arthritis M19.90 Active 9667737 ALLERGIES Substance Reaction Event Type Date Status Robaxin Unknown Drug Allergy Dec, Active Penicillin V Potassium Unknown Drug Allergy Dec, Active Demerol Unknown Drug Allergy Dec, Active Codeine Sulfate Unknown Drug Allergy Dec, Active ENCOUNTERS Encounter Location Date Diagnosis [facility] [address] [facility] [id number] [address] Mar, [facility] [address] [facility] [place] [id number] [address] Mar, [facility] [address] [facility] [id number] [address] Feb, [place] [id number] [place] [address] 78641- 8170 Feb, [place] [id number] [place] [address] 23242- 6810 Feb, Generalized anxiety disorder F41.1 and Mild episode of recurrent major depressive disorder F33.0 [place] [address] 25954- 5723 06 Feb, 2018 [place] [id number] [place] [address] 86331- 1528 04 Feb, 2018 Bronchospasm J98.01 and Arthritis M19.90 [place] [id number] [place] [address] 17388- 1974 Jan, Medicare annual wellness visit, initial Z00.00 ; Reactive depression F32.9 ; Reflex sympathetic dystrophy G90.50 ; Fibromyalgia M79.7 ; BMI 40.0-44.9, adult Z68.41 ; Hypothyroidism, unspecified type E03.9 ; Gastroesophageal reflux disease, esophagitis presence not specified K21.9 ; Family history of osteoporosis Z82.62 ; Venous insufficiency I87.2 ; Arthritis M19.90 ; Mixed hyperlipidemia E78.2 and Generalized anxiety disorder F41.1 [place] [id number] [place] [address] 78999- 1683 Jan, Generalized anxiety disorder F41.1 and Mild episode of recurrent major depressive disorder F33.0 [place] [address] [place] [address] 51477- 6305 Jan, Mild episode of recurrent major depressive disorder F33.0 and Generalized anxiety disorder F41.1 [place] [id number] [place] [address] 43095- 4627 Jan, Fibromyalgia M79.7 [place] [id number] [place] [address] 27542- 6489 Jan, Bronchospasm J98.01 [place] [address] [place] [address]- 8[address] Jan, [facility] [id number] [place] [address] 52608- 9644 Jan, Generalized anxiety disorder F41.1 and Mild episode of recurrent major depressive disorder F33.0 [facility] [id number] [place] [address] 26816- 9374 Jan, Bronchitis J40 [facility] [id number] [place] [address] 77909- 4483 Dec, Mild episode of recurrent major depressive disorder F33.0 [place] [id number] [place] [address] 41751- 7770 Dec, Generalized anxiety disorder F41.1 and Mild episode of recurrent major depressive disorder F33.0 [facility] [id number] [place] [address] 03068- 9577 Dec, Fibromyalgia M79.7 ; Arthritis M19.90 and Generalized anxiety disorder F41.1 [facility] [id number] [place] [address] 27323- 4669 Dec, Mild episode of recurrent major depressive disorder F33.0 and Generalized anxiety disorder F41.1 [facility] [id number] [place] [address] 83653- 5886 Dec, Fibromyalgia M79.7 [facility] [id number] [place] [address] 62747- 8610 Dec, Bronchitis J40 and Internal derangement of right knee M23.91 [facility] [id number] [place] [address] 38994 -9031 Dec, Cough R05 [facility] [id number] [place] [address] 21294- 5048 Dec, Generalized anxiety disorder F41.1 and Mild episode of recurrent major depressive disorder F33.0 [facility] [id number] [place] [address] 55810- 5618 Dec, [facility] [address] [address] Dec, [facility] [id number] [place] [address] 37203- 6160 Dec, Mild episode of recurrent major depressive disorder F33.0 and Generalized anxiety disorder F41.1 [facility] [id number] [place] [address] 54846- 7611 Nov, [facility] [id number] [place] [address] 88004- 1064 Nov, [facility] [id number] [place] [address] 30400- 4663 Nov, [facility] [id number] [place] [address] 12381- 5622 Nov, Internal derangement of right knee M23.91 [place] [id number] [place] [address] 39561- 6067 Nov, Generalized anxiety disorder F41.1 and Mild episode of recurrent major depressive disorder F33.0 [place] [address] [place] [address] 19652- 2284 Nov, Internal derangement of right knee M23.91 [facility] [address] [address] Nov, Acute right ankle pain M25.571 ; Acute pain of right knee M25.561 ; Acute left-sided low back pain without sciatica M54.5 and Right leg pain M79.604 [place] [address] [address] 15 Nov, 2017 [place] [id number] [place] [address] 54956- 5283 14 Nov, 2017 Fibromyalgia M79.7 [facility] [address] [place] [address] 43629- 0514 13 Nov, 2017 Generalized anxiety disorder F41.1 and Mild episode of recurrent major depressive disorder F33.0 [facility] [id number] [place] [address] 14751- 5891 Nov, [facility] [id number] [place] [address] 97204- 5015 October, Generalized anxiety disorder F41.1 and Mild episode of recurrent major depressive disorder F33.0 [place] [id number] [place] [address] 90077- 2569 October, Fibromyalgia M79.7 [facility] [id number] [place] [address] 87216- 3061 October, [place] [id number] [place] [address] 35195- 4589 October, Generalized anxiety disorder F41.1 and Mild episode of recurrent major depressive disorder F33.0 [place] [id number] [place] [address] 66705- 0101 October, [facility] [id number] [place] [address] 20460- 1699 Sep, Gastroesophageal reflux disease, esophagitis presence not specified K21.9 and Abnormal laboratory test R89.9 [place] [id number] [place] [address] 43436- 5451 Sep, Fibromyalgia M79.7 [place] [id number] [place] [address] 21550- 2116 Sep, Generalized anxiety disorder F41.1 and Mild episode of recurrent major depressive disorder F33.0 [place] [id number] [place] [address] 87653- 1166 Sep, Epigastric pain R10.13 [place] [id number] [place] [address] 73325- 9796 10 Sep, 2017 Mild episode of recurrent major depressive disorder F33.0 and Generalized anxiety disorder F41.1 [place] [id number] [place] [address] 22808- 1607 Sep, Abnormal laboratory test R89.9 [facility] [id number] [place] [address] 98227- 4154 Sep, Generalized anxiety disorder F41.1 and Mild episode of recurrent major depressive disorder F33.0 [facility] [address] 64550- 5483 29 Aug, 2017 Epigastric pain R10.13 and Encounter for therapeutic drug level monitoring Z51.81 [facility] [address] 96106 -6755 Aug, Epigastric pain R10.13 and Gastro-esophageal reflux disease without esophagitis K21.9 [place] [address] 02780- 0218 Aug, [place] [address] 28045- 8123 Aug, Epigastric pain R10.13 [place] [id number] [place] [address] 84590- 3442 Aug, Fibromyalgia M79.7 [place] [address] 51727- 0770 14 Aug, 2017 [place] [address] 26352- 9146 Aug, Generalized anxiety disorder F41.1 and Mild episode of recurrent major depressive disorder F33.0 [place] [id number] [place] [address] 01810- 5359 08 Aug, 2017 Epigastric pain R10.13 ; Reflex sympathetic dystrophy G90.50 and Arthritis M19.90 [place] [address] 72641- 0207 Jul, Generalized anxiety disorder F41.1 and Mild episode of recurrent major depressive disorder F33.0 [place] [address] 10109- 9254 Jul, BMI 40.0-44.9, adult Z68.41 ; Mild episode of recurrent major depressive disorder F33.0 and Generalized anxiety disorder F41.1 [facility] [id number] [place] [address] 66145- 3376 Jul, Fibromyalgia M79.7 [facility] [id number] [place] [address] 10809- 8326 Jun, Mild episode of recurrent major depressive disorder F33.0 and Generalized anxiety disorder F41.1 [facility] [id number] [place] [address] 37429 2546 Jun, Fibromyalgia M79.7 [facility] [id number] [place] [address] 83913- 1925 Jun, Generalized anxiety disorder F41.1 and Mild episode of recurrent major depressive disorder F33.0 [facility] [id number] [place] [address] 23108- 5976 Jun, Generalized anxiety disorder F41.1 and Mild episode of recurrent major depressive disorder F33.0 [facility] [id number] [place] [address] 27841- 9414 Jun, Generalized anxiety disorder F41.1 and Mild episode of recurrent major depressive disorder F33.0 [facility] [id number] [place] [address] 34225- 4327 Jun, [facility] [id number] [place] [address] 44432 2540 Jun, Generalized anxiety disorder F41.1 and Mild episode of recurrent major depressive disorder F33.0 [facility] [id number] [place] [address] 64595 2546 May, Fibromyalgia M79.7 [facility] [id number] [place] [address] 88626- 0483 May, Generalized anxiety disorder F41.1 and Mild episode of recurrent major depressive disorder F33.0 [facility] [id number] [place] [address] 73645- 6276 May, Mixed hyperlipidemia E78.2 ; Arthritis M19.90 ; Reactive depression F32.9 and Hypothyroidism, unspecified type E03.9 [facility] [id number] [place] [address] 72235- 3266 May, Arthritis M19.90 ; Reactive depression F32.9 ; Mixed hyperlipidemia E78.2 and Hypothyroidism, unspecified type E03.9 [facility] [address] 70761- 6198 Apr, Fibromyalgia M79.7 [facility] [address] 83755- 4624 Apr, [facility] [address] 70677- 8722 Apr, Fibromyalgia M79.7 [facility] [address] 65325- 2056 Mar, Fibromyalgia M79.7 [facility] [address] 66320- 1437 Mar, [facility] [address] 95581- 0597 Mar, Fibromyalgia M79.7 [facility] [address] 76686- 5491 Mar, [facility] [id number] [place] [address] 69787- 9403 Feb, Reflex sympathetic dystrophy G90.50 ; Right arm pain M79.601 and Fibromyalgia M79.7 [facility] [address] 37842- 3421 Feb, [facility] [address] 68360- 6806 Feb, Anxiety F41.9 [facility] [address] 90543- 5650 Feb, Fibromyalgia M79.7 [facility] [id number] [place] [address] 89981- 0188 Feb, [facility] [id number] [place] [address] 23784- 3671 Feb, [facility] [id number] [place] [address] 17633- 1370 Jan, Temporal headache R51 [facility] [id number] [place] [address] 72821- 8794 Jan, Fibromyalgia M79.7 [facility] [id number] [place] [address] 21499- 4219 Dec, Fibromyalgia M79.7 [facility] [id number] [place] [address] 09555- 3619 Nov, Peroneal tendonitis, unspecified laterality M76.70 and Plantar fasciitis, bilateral M72.2 [facility] [id number] [place] [address] 21063- 4303 Nov, Fibromyalgia M79.7 [facility] [id number] [place] [address] 38443- 4920 October, Fibromyalgia M79.7 [facility] [id number] [place] [address] 61582- 8196 October, Plantar fasciitis, bilateral M72.2 and Peroneal tendonitis, unspecified laterality M76.70 [facility] [address] [place] [address] 47567- 5847 October, Fibromyalgia M79.7 [facility] [id number] [place] [address] 02031- 3285 Sep, Anxiety F41.9 [facility] [id number] [place] [address] 59470- 2102 Aug, Anxiety F41.9 and Adjustment disorder with anxiety F43.22 [facility] [address] 91749- 9545 Aug, Pain of left foot M79.672 [place] [address] 98846- 4028 Aug, Pain of left foot M79.672 and Pain in right foot M79.671 [place] [address] 81129- 9240 Aug, Arthritis M19.90 ; Reactive depression F32.9 ; Fibromyalgia M79.7 ; Rosacea L71.9 ; Pain in right foot M79.671 and Pain of left foot M79.672 [place] [address] 77205- 8783 Aug, Anxiety F41.9 ; Adjustment disorder with anxiety F43.22 and Reactive depression F32.9 [place] [address] 66786- 4897 Aug, Right elbow pain M25.521 [place] [address] 98298- 3044 Aug, Plantar wart of right foot B07.0 and Actinic keratosis L57.0 [place] [address] 28264- 7199 Aug, Fibromyalgia M79.7 [place] [address] 71613- 7305 Jul, Arthritis M19.90 ; Hypothyroidism, unspecified type E03.9 ; Reactive depression F32.9 and Venous insufficiency I87.2 [place] [address] 67425- 2725 Jul, Gastroesophageal reflux disease, esophagitis presence not specified K21.9 [place] [address] 88946- 0318 Jul, Reflex sympathetic dystrophy G90.50 [place] [address] [place] [address]- 5461 17 Jul, 2016 Anxiety F41.9 ; Adjustment disorder with anxiety F43.22 and Reactive depression F32.9 [facility] [address] 63763- 9232 15 Jul, 2016 [facility] [address] 75232- 1600 03 Jul, 2016 Right elbow pain M25.521 [facility] [address] 11571- 9564 Jun, Fibromyalgia M79.7 [place] [address] 11312- 2759 Jun, Anxiety F41.9 ; Adjustment disorder with anxiety F43.22 and Reactive depression F32.9 [place] [address] 75309- 6924 Jun, [facility] [address] 06309- 7246 Jun, Atypical chest pain R07.89 and Adjustment disorder with anxiety F43.22 [facility] [place] [address] [id number] Jun, Chest pain, unspecified type R07.9 [place] [id number] [place] [address] 65321- 1060 Jun, Fibromyalgia M79.7 [facility] [address] 03365- 6197 May, Anxiety F41.9 [facility] [address] 91790- 6916 May, [facility] [address] 65639- 0780 May, Right elbow pain M25.521 [facility] [address] 75830- 4976 Apr, Reflex sympathetic dystrophy G90.50 and Encounter for immunization Z23 [facility] [id number] [place] [address] 68855- 9144 Apr, [facility] [id number] [place] [address] 79123- 1864 Mar, [facility] [id number] [place] [address] 48444- 7693 Feb, [facility] [address] 37754- 4697 Feb, [facility] [id number] [place] [address] 46890- 1291 Jan, [facility] [address] 11349- 5683 Jan, Right elbow pain M25.521 and Right wrist pain M25.531 [facility] [id number] [place] [address] 30029- 4475 Jan, [facility] [id number] [place] [address] 19051- 2460 Dec, Seborrheic keratoses L82.1 [facility] [id number] [place] [address] 50338- 8035 Dec, [facility] [id number] [place] [address] 63036- 2681 Dec, [facility] [id number] [place] [address] 52295- 2526 Dec, [facility] [id number] [place] [address] 46167- 2878 Dec, Fibromyalgia M79.7 and Hypothyroidism, unspecified type E03.9 [facility] [id number] [place] [address] 20260- 7822 Dec, Seborrheic keratoses L82.1 [facility] [address] 96956- 3857 Dec, [place] [address] [facility] [place] [id number] [address]- 5824 Dec, [place] [address] [address]- 6120 Nov, Sebaceous cyst L72.3 [place] [address] [place] [address] 32270- 8845 October, Breast cancer screening Z12.39 [place] [address] [address]- 8014 October, Fibromyalgia M79.7 ; Hypothyroidism, unspecified type E03.9 and Reflex sympathetic dystrophy G90.50 [place] [id number] [address]- 0178 October, Reflex sympathetic dystrophy G90.50 ; Fibromyalgia M79.7 and Hypothyroidism, unspecified type E03.9 IMMUNIZATIONS No Known Immunizations SOCIAL HISTORY Never Assessed REASON FOR VISIT Shortness of breath-TAMICA martínez, nausea PLAN OF CARE Activity Details Follow Up Regular appt Reason: VITAL SIGNS Height 62 in 2018-01-10 Weight 213.2 lbs 2018-01-10 Temperature 96.0 degrees Fahrenheit 2018-01-10 Heart Rate 84 bpm 2018-01-10 Respiratory Rate 18 2018-01-10 Oximetry on room air:100 % 2018-01-10 BMI 38.99 kg/m2 2018-01-10 Blood pressure systolic 120 mmHg 2018-01-10 Blood pressure diastolic 82 mmHg 2018-01-10 MEDICATIONS Medication Instructions Dosage Frequency Start Date End Date Duration Status Hydrocodone-Acetaminophen 7.5-325 MG Orally 3 times a day 1 tablet 8h Dec, 28 days Active Amitriptyline HCl 10 mg Orally QHS 1 tablet Active Orphenadrine Citrate ER 100 mg Orally twice a day 1 tablet 12h Active Levothyroxine Sodium 75MCG TAKE ONE TABLET BY MOUTH ONCE DAILY Active HydrOXYzine HCl 10 MG Orally three times a day as needed for anxiety and sleep 1 tablet May, Active Pantoprazole Sodium 40MG Orally Once a day 1 tablet 24h Active Topiramate 200MG Orally twice a day 1 tablet 12h Active Cetirizine HCl 10 MG Orally Once a day 1 tablet 24h Active Celebrex 200 MG Orally Once a day 1 capsule with food 24h Active Excedrin Migraine 250-250-65 MG Orally every 6 hrs 2 tablets as needed 6h Active Tizanidine HCl 4 MG Orally Three times a day 1 tablet as needed 8h Active Rexulti 2 MG Orally Once a day 1 tablet 24h 12 Nov, 2017 Active RESULTS No Results PROCEDURES Procedure Date Ordered Result Body Site [facility] VISIT ESTABLISHED PATIENT January 10, 2018 INSTRUCTIONS [...]
--- OUTSIDE RECORDS SUMMARY | 2018-03-07 18:16 | XMS REPORT ---
Author Author JOE BAI Organization [facility] Address [address] [place] [address] Care Team Providers Care Odd Ticket Clerk Name Role Phone JOE BAI Unavailable PROBLEMS Type Condition ICD9-CM Code [id number] Code Onset Dates Condition Status SNOMED Code Problem Reactive depression F32.9 Active 17469959 Problem Plantar wart of right foot B07.0 Active 00551073 Problem Gastroesophageal reflux disease, esophagitis presence not specified K21.9 Active 185326316 Problem Internal derangement of right knee M23.91 Active 976657901657703 Problem Abnormal laboratory test R89.9 Active 402033167 Problem Mixed hyperlipidemia E78.2 Active 597156001 Problem Rosacea L71.9 Active 906057146 Problem Mild episode of recurrent major depressive disorder F33.0 Active 500779733 Problem Generalized anxiety disorder F41.1 Active 93765762 Problem Hypothyroidism, unspecified type E03.9 Active 69490077 Problem Right elbow pain M25.521 Active 30371513 Problem Right wrist pain M25.531 Active 64117425 Problem Reflex sympathetic dystrophy G90.50 Active 08789744 Problem Venous insufficiency I87.2 Active 18336324 Problem Fibromyalgia M79.7 Active 774715759 Problem Arthritis M19.90 Active [id number] ALLERGIES No Information ENCOUNTERS Encounter Location Date Diagnosis [facility] [address], [place] [address] Mar, [facility] [id number] [place] [address] 21631- 4305 Feb, [facility] [id number] [place] [address] 81471- 5037 Feb, [facility] [address] [address] Feb, [place] [address] [id number] [place] [address] 91205- 3886 Feb, [place] [address] [address]- 1959 Feb, Bronchospasm J98.01 and Arthritis M19.90 [place] [address] 27440- 9861 Jan, Medicare annual wellness visit, initial Z00.00 ; Reactive depression F32.9 ; Reflex sympathetic dystrophy G90.50 ; Fibromyalgia M79.7 ; BMI 40.0-44.9, adult Z68.41 ; Hypothyroidism, unspecified type E03.9 ; Gastroesophageal reflux disease, esophagitis presence not specified K21.9 ; Family history of osteoporosis Z82.62 ; Venous insufficiency I87.2 ; Arthritis M19.90 ; Mixed hyperlipidemia E78.2 and Generalized anxiety disorder F41.1 [place] [address] 31813- 3280 Jan, Generalized anxiety disorder F41.1 and Mild episode of recurrent major depressive disorder F33.0 [place] [id number] [place] [address] 63831- 2381 Jan, Mild episode of recurrent major depressive disorder F33.0 and Generalized anxiety disorder F41.1 [place] [id number] [place] [address] 72093- 7952 Jan, Fibromyalgia M79.7 [place] [id number] [place] [address] 93567- 2053 Jan, Bronchospasm J98.01 [place] [id number] [place] [address] 24007- 5528 Jan, [place] [address] 82458- 7998 Jan, Generalized anxiety disorder F41.1 and Mild episode of recurrent major depressive disorder F33.0 [place] [address] 77477- 3336 Jan, Bronchitis J40 [facility] [id number] [place] [address] 99383- 2365 Dec, Mild episode of recurrent major depressive disorder F33.0 [facility] [id number] [place] [address] 26667- 3859 Dec, Generalized anxiety disorder F41.1 and Mild episode of recurrent major depressive disorder F33.0 [facility] [id number] [place] [address] 11024- 0057 Dec, Fibromyalgia M79.7 ; Arthritis M19.90 and Generalized anxiety disorder F41.1 [place] [address] 65103- 2285 Dec, Mild episode of recurrent major depressive disorder F33.0 and Generalized anxiety disorder F41.1 [place] [id number] [place] [address] 96177- 0277 Dec, Fibromyalgia M79.7 [facility] [id number] [place] [address] 62674- 5933 Dec, Bronchitis J40 and Internal derangement of right knee M23.91 [facility] [id number] [place] [address] 96989 -9811 Dec, Cough R05 [facility] [id number] [place] [address] 07242- 9005 Dec, Generalized anxiety disorder F41.1 and Mild episode of recurrent major depressive disorder F33.0 [facility] [id number] [place] [address] 79093- 3507 Dec, [facility] [id number] [place] [address] 53189 -4135 Dec, [facility] [id number] [place] [address] 45371- 4662 Dec, Mild episode of recurrent major depressive disorder F33.0 and Generalized anxiety disorder F41.1 [facility] [id number] [address] 30 Nov, 2017 [facility] [id number] [place] [address] 32885- 5171 Nov, [facility] [id number] [place] [address] 72615- 1054 28 Nov, 2017 [facility] [id number] [place] [address] 49831- 6684 Nov, Internal derangement of right knee M23.91 [facility] [id number] [place] [address] 36355- 6730 27 Nov, 2017 Generalized anxiety disorder F41.1 and Mild episode of recurrent major depressive disorder F33.0 [facility] [id number] [place] [address] 66577- 1424 22 Nov, 2017 Internal derangement of right knee M23.91 [facility] [address] [place] [address] 23792 -9797 19 Nov, 2017 Acute right ankle pain M25.571 ; Acute pain of right knee M25.561 ; Acute left-sided low back pain without sciatica M54.5 and Right leg pain M79.604 [facility] [address] [place] [address] 38780- 0409 15 Nov, 2017 [facility] [address], [place] [address] 3686 14 Nov, [address] [facility] [id number] [place] [address] 96149- 0485 13 Nov, 2017 Generalized anxiety disorder F41.1 and Mild episode of recurrent major depressive disorder F33.0 [facility] [id number] [place] [address] 36256- 5719 11 Nov, 2017 [facility] [address], [place] [address] 4067 October, Generalized anxiety disorder F41.1 and Mild episode of recurrent major depressive disorder F33.0 [facility] [id number] [place] [address] 19781- 9661 October, Fibromyalgia M79.7 [facility] [id number] [place] [address] 24412- 3256 October, [facility] [id number] [place] [address] 75651- 9514 October, Generalized anxiety disorder F41.1 and Mild episode of recurrent major depressive disorder F33.0 [facility] [id number] [place] [address] 62820- 8948 October, [facility] [id number] [place] [address] 20159- 0212 Sep, Gastroesophageal reflux disease, esophagitis presence not specified K21.9 and Abnormal laboratory test R89.9 [place] [id number] [place] [address] 52977- 5743 Sep, Fibromyalgia M79.7 [facility] [id number] [place] [address] 15701- 4025 Sep, Generalized anxiety disorder F41.1 and Mild episode of recurrent major depressive disorder F33.0 [place] [id number] [place] [address] 53017- 4646 Sep, Epigastric pain R10.13 [place] [id number] [place] [address] 73897- 5994 Sep, Mild episode of recurrent major depressive disorder F33.0 and Generalized anxiety disorder F41.1 [facility] [id number] [place] [address] 74568- 8244 Sep, Abnormal laboratory test R89.9 [facility] [id number] [place] [address] 41308- 4600 Sep, Generalized anxiety disorder F41.1 and Mild episode of recurrent major depressive disorder F33.0 [place] [id number] [place] [address] 44612- 0351 Aug, Epigastric pain R10.13 and Encounter for therapeutic drug level monitoring Z51.81 [facility] [id number] [place] [address] 71710 -3830 Aug, Epigastric pain R10.13 and Gastro-esophageal reflux disease without esophagitis K21.9 [facility] [id number] [place] [address] 27136- 2404 Aug, [facility] [id number] [place] [address] 81180- 6622 Aug, Epigastric pain R10.13 [place] [id number] [place] [address] 29071- 9804 Aug, Fibromyalgia M79.7 [facility] [id number] [place] [address] 53531- 0007 Aug, [place] [address] 06896- 5936 Aug, Generalized anxiety disorder F41.1 and Mild episode of recurrent major depressive disorder F33.0 [place] [id number] [place] [address] 17575- 1285 08 Aug, 2017 Epigastric pain R10.13 ; Reflex sympathetic dystrophy G90.[address] [facility] [id number] [place] [address] 23519- 1938 Jul, Generalized anxiety disorder F41.1 and Mild episode of recurrent major depressive disorder F33.0 [facility] [id number] [place] [address] 24699- 9073 Jul, BMI 40.0-44.9, adult Z68.41 ; Mild episode of recurrent major depressive disorder F33.0 and Generalized anxiety disorder F41.1 [facility] [id number] [place] [address] 31788- 5548 Jul, Fibromyalgia M79.7 [place] [id number] [place] [address] 29329- 8778 Jun, Mild episode of recurrent major depressive disorder F33.0 and Generalized anxiety disorder F41.1 [facility] [id number] [place] [address] 75637- 2692 Jun, Fibromyalgia M79.7 [facility] [id number] [place] [address] 97930- 5186 Jun, Generalized anxiety disorder F41.1 and Mild episode of recurrent major depressive disorder F33.0 [facility] [id number] [place] [address] 21026- 9939 Jun, Generalized anxiety disorder F41.1 and Mild episode of recurrent major depressive disorder F33.0 [facility] [id number] [place] [address] 78321- 9376 Jun, Generalized anxiety disorder F41.1 and Mild episode of recurrent major depressive disorder F33.0 [facility] [id number] [place] [address] 07132- 6876 Jun, [facility] [id number] [place] [address] 87229- 7232 Jun, Generalized anxiety disorder F41.1 and Mild episode of recurrent major depressive disorder F33.0 [facility] [id number] [place] [address] 16380- 9551 May, Fibromyalgia M79.7 [facility] [id number] [place] [address] 58458- 1899 May, Generalized anxiety disorder F41.1 and Mild episode of recurrent major depressive disorder F33.0 [facility] [address], [place] [address]- 9120 May, Mixed hyperlipidemia E78.2 ; Arthritis M19.90 ; Reactive depression F32.9 and Hypothyroidism, unspecified type E03.9 [facility] [address], [place] [address]- 7077 May, Arthritis M19.90 ; Reactive depression F32.9 ; Mixed hyperlipidemia E78.2 and Hypothyroidism, unspecified type E03.9 [facility] [id number] [place] [address] 62808 2541 Apr, Fibromyalgia M79.7 [facility] [id number] [place] [address] 90627 2546 Apr, [facility] [id number] [place] [address] 39200 2546 Apr, Fibromyalgia M79.7 [facility] [address] 74590 2546 Mar, Fibromyalgia M79.7 [facility] [address] 32770- 3446 Mar, [facility] [id number] [place] [address] 86268 2546 Mar, Fibromyalgia M79.7 [facility] [address] 63847 2541 Mar, [facility] [id number] [place] [address] 58258 2548 Feb, Reflex sympathetic dystrophy G90.50 ; Right arm pain M79.[address] [facility] [id number] [place] [address] 82684- 2546 Feb, [facility] [id number] [place] [address] 17802 2546 Feb, Anxiety F41.9 [facility] [id number] [place] [address] 97286 2546 Feb, Fibromyalgia M79.7 [facility] [id number] [place] [address] 30097 2546 Feb, [facility] [id number] [place] [address] 06130 2546 Feb, [facility] [id number] [place] [address] 19336- 3907 Jan, Temporal headache R51 [facility] [id number] [place] [address] 01449- 1306 Jan, Fibromyalgia M79.7 [facility] [id number] [place] [address] 39293- 5442 Dec, Fibromyalgia M79.7 [facility] [address] 78373- 4371 Nov, Peroneal tendonitis, unspecified laterality M76.70 and Plantar fasciitis, bilateral M72.2 [facility] [id number] [place] [address] 38854- 8970 Nov, Fibromyalgia M79.7 [facility] [id number] [place] [address] 21017- 5699 October, Fibromyalgia M79.7 [facility] [address] 16588- 8668 October, Plantar fasciitis, bilateral M72.2 and Peroneal tendonitis, unspecified laterality M76.70 [place] [id number] [place] [address] 21307- 6713 October, Fibromyalgia M79.7 [facility] [id number] [place] [address] 42793- 2196 Sep, Anxiety F41.9 [place] [address] 52868- 6054 Aug, Anxiety F41.9 and Adjustment disorder with anxiety F43.22 [facility] [id number] [place] [address] 96885- 6301 Aug, Pain of left foot M79.672 [place] [address] 13756- 0751 Aug, Pain of left foot M79.672 and Pain in right foot M79.671 [facility] [id number] [place] [address] 58780- 4646 Aug, Arthritis M19.90 ; Reactive depression F32.9 ; Fibromyalgia M79.7 ; Rosacea L71.9 ; Pain in right foot M79.671 and Pain of left foot M79.672 [place] [id number] [place] [address] 03987- 4489 Aug, Anxiety F41.9 ; Adjustment disorder with anxiety F43.22 and Reactive depression F32.9 [place] [address] 14980- 2244 14 Aug, 2016 Right elbow pain M25.521 [place] [address] 37709- 6131 Aug, Plantar wart of right foot B07.0 and Actinic keratosis L57.0 [place] [id number] [place] [address] 19342- 5887 Aug, Fibromyalgia M79.7 [place] [id number] [place] [address] 60415- 6671 Jul, Arthritis M19.90 ; Hypothyroidism, unspecified type E03.9 ; Reactive depression F32.9 and Venous insufficiency I87.2 [place] [id number] [place] [address] 12403- 1860 Jul, Gastroesophageal reflux disease, esophagitis presence not specified K21.9 [place] [id number] [place] [address] 54705- 0359 Jul, Reflex sympathetic dystrophy G90.50 [place] [address] 52283- 7779 Jul, Anxiety F41.9 ; Adjustment disorder with anxiety F43.22 and Reactive depression F32.9 [place] [id number] [place] [address] 58843- 0474 Jul, [place] [address] 38591- 7125 Jul, Right elbow pain M25.521 [facility] [address] 01913- 6116 Jun, Fibromyalgia M79.7 [facility] [address] 35106- 4876 Jun, Anxiety F41.9 ; Adjustment disorder with anxiety F43.22 and Reactive depression F32.9 [place] [address] 45826- 9692 Jun, [facility] [address] 97785- 8039 Jun, Atypical chest pain R07.89 and Adjustment disorder with anxiety F43.22 [place] [address] [id number] Jun, Chest pain, unspecified type R07.9 [place] [address] 30390- 7115 Jun, Fibromy[address] M79.7 [facility] [address] 00510- 2161 May, Anxiety F41.9 [facility] [address] 53145- 0937 14 May, 2016 [facility] [address] 13104- 3076 May, Right elbow pain M25.521 [facility] [address] 83453- 8853 Apr, Reflex sympathetic dystrophy G90.50 and Encounter for immunization Z23 [place] [address] 59101- 9076 Apr, [facility] [address] 45737- 4960 14 Mar, 2016 [facility] [address] 53684- 3448 Feb, [facility] [address] [address]- 8016 Feb, [facility] [id number] [place] [address] 75877- 6866 Jan, [facility] [id number] [place] [address] 01628- 1672 Jan, Right elbow pain M25.521 and Right wrist pain M25.531 [facility] [id number] [place] [address] 95523- 5745 Jan, [facility] [id number] [place] [address] 65170- 3947 Dec, Seborrheic keratoses L82.1 [facility] [id number] [place] [address] 71285- 9203 Dec, [facility] [id number] [place] [address] 17454- 3357 Dec, [facility] [id number] [place] [address] 67027- 8608 Dec, [facility] [id number] [place] [address] 18775- 3445 Dec, Fibromyalgia M79.7 and Hypothyroidism, unspecified type E03.9 [facility] [address], [place] [address]- 7666 Dec, Seborrheic keratoses L82.1 [facility] [address], [place] [address]- 9573 Dec, [facility] [id number], [place] [address]- 7651 Dec, [facility] [id number] [address]- 9285 Nov, Sebaceous cyst L72.3 [facility] [id number] [address]- 4727 October, Breast cancer screening Z12.39 [facility] [address] [facility] [id number] [address]- 5345 October, Fibromyalgia M79.7 ; Hypothyroidism, unspecified type E03.9 and Reflex sympathetic dystrophy G90.50 [facility] [address] [facility] [id number] [place] [address]- 2946 October, Reflex sympathetic dystrophy G90.50 ; Fibromyalgia M79.7 and Hypothyroidism, unspecified type E03.9 IMMUNIZATIONS No Known Immunizations SOCIAL HISTORY Never Assessed REASON FOR VISIT Hydrocodone 01/06 PLAN OF CARE VITAL SIGNS MEDICATIONS Medication Instructions Dosage Frequency Start Date End Date Duration Status Hydrocodone-Acetaminophen 7.5-325 MG Orally 3 times a day 1 tablet 8h Dec, 28 days Active RESULTS No Results PROCEDURES [...]
--- OUTSIDE RECORDS SUMMARY | 2018-03-07 18:16 | XMS REPORT ---
Author Author JOE BAI [facility] Address [address] [place] [address] Care Team Providers Care Chronometer Adjuster Name Role Phone JOE BAI Unavailable PROBLEMS Type Condition ICD9-CM Code UAM26-VT Code Onset Dates Condition Status SNOMED Code Problem Reactive depression F32.9 Active 62419081 Problem Plantar wart of right foot B07.0 Active 85004232 Problem Gastroesophageal reflux disease, esophagitis presence not specified K21.9 Active 525691653 Problem Internal derangement of right knee M23.91 Active 232985879714284 Problem Abnormal laboratory test R89.9 Active 950775397 Problem Mixed hyperlipidemia E78.2 Active 242117175 Problem Rosacea L71.9 Active 185153355 Problem Mild episode of recurrent major depressive disorder F33.0 Active 672410809 Problem Generalized anxiety disorder F41.1 Active 90247467 Problem Hypothyroidism, unspecified type E03.9 Active 27662581 Problem Right elbow pain M25.521 Active 50829643 Problem Right wrist pain M25.531 Active 97828679 Problem Reflex sympathetic dystrophy G90.50 Active 21107761 Problem Venous insufficiency I87.2 Active 26069882 Problem Fibromyalgia M79.7 Active 640458804 Problem Arthritis M19.90 Active 4427685 ALLERGIES Substance Reaction Event Type Date Status Robaxin Unknown Drug Allergy Dec, Active Penicillin V Potassium Unknown Drug Allergy Dec, Active Demerol Unknown Drug Allergy Dec, Active Codeine Sulfate Unknown Drug Allergy Dec, Active ENCOUNTERS Encounter Location Date Diagnosis [facility] [address] [facility] [id number] [address] Mar, [facility] [address] [facility] [id number] [address] Feb, [facility] [address] [facility] [id number] [place] [address] Feb, [place] [id number] [address] 3827 Feb, [place] [address] [place] [id number] [place] [address] 65246- 8054 Feb, [place] [address] [id number] [place] [address] 89231- 0178 Feb, Bronchospasm J98.01 and Arthritis M19.90 [place] [address] [id number] [place] [address] 03570- 2266 Jan, Medicare annual wellness visit, initial Z00.00 ; Reactive depression F32.9 ; Reflex sympathetic dystrophy G90.50 ; Fibromyalgia M79.7 ; BMI 40.0-44.9, adult Z68.41 ; Hypothyroidism, unspecified type E03.9 ; Gastroesophageal reflux disease, esophagitis presence not specified K21.9 ; Family history of osteoporosis Z82.62 ; Venous insufficiency I87.2 ; Arthritis M19.90 ; Mixed hyperlipidemia E78.2 and Generalized anxiety disorder F41.1 [place] [address] [place] [id number] [place] [address] 41814- 3248 Jan, Generalized anxiety disorder F41.1 and Mild episode of recurrent major depressive disorder F33.0 [place] [id number] [place] [address] 02921- 7680 Jan, Mild episode of recurrent major depressive disorder F33.0 and Generalized anxiety disorder F41.1 [place] [id number] [place] [address] 02868- 5225 Jan, Fibromyalgia M79.7 [place] [address] [id number] [place] [address] 92851- 9606 Jan, Bronchospasm J98.01 [place] [address] [id number] [place] [address] 42742- 4751 Jan, [place] [id number] [place] [address] 32535- 5582 Jan, Generalized anxiety disorder F41.1 and Mild episode of recurrent major depressive disorder F33.0 [facility] [id number] [place] [address] 18179- 9976 Jan, Bronchitis J40 [facility] [id number] [place] [address] 01666- 9669 Dec, Mild episode of recurrent major depressive disorder F33.0 [facility] [id number] [place] [address] 24016- 7822 Dec, Generalized anxiety disorder F41.1 and Mild episode of recurrent major depressive disorder F33.0 [facility] [id number] [place] [address] 10462- 7159 Dec, Fibromyalgia M79.7 ; Arthritis M19.90 and Generalized anxiety disorder F41.1 [facility] [id number] [place] [address] 85997- 0453 Dec, Mild episode of recurrent major depressive disorder F33.0 and Generalized anxiety disorder F41.1 [facility] [id number] [place] [address] 00327- 8663 Dec, Fibromyalgia M79.7 [facility] [id number] [place] [address] 00637- 2073 Dec, Bronchitis J40 and Internal derangement of right knee M23.91 [facility] [id number] [place] [address] 41455 -9956 Dec, Cough R05 [facility] [id number] [place] [address] 50180- 0880 Dec, Generalized anxiety disorder F41.1 and Mild episode of recurrent major depressive disorder F33.0 [facility] [id number] [place] [address] 77282- 1886 Dec, [facility] [id number] [place] [address] 11987 -9190 Dec, [facility] [id number] [place] [address] 03925- 8227 Dec, Mild episode of recurrent major depressive disorder F33.0 and Generalized anxiety disorder F41.1 [facility] [address] [address] 7407 30 Nov, 2017 [facility] [address] [address] 39[address] Nov, [facility] [id number] [place] [address] 80967- 0817 Nov, [facility] [id number] [place] [address] 73199- 8235 Nov, Internal derangement of right knee M23.91 [facility] [id number] [place] [address] 79631- 2291 27 Nov, 2017 Generalized anxiety disorder F41.1 and Mild episode of recurrent major depressive disorder F33.0 [facility] [address] [address] 5095 Nov, Internal derangement of right knee M23.91 [facility] [address] [address] Nov, Acute right ankle pain M25.571 ; Acute pain of right knee M25.561 ; Acute left-sided low back pain without sciatica M54.5 and Right leg pain M79.604 [place] [address] [address] 4368 15 Nov, 2017 [facility] [address] [address]- 2598 14 Nov, [address] [facility] [address] [place] [id number] [place] [address] 69038- 1508 13 Nov, 2017 Generalized anxiety disorder F41.1 and Mild episode of recurrent major depressive disorder F33.0 [facility] [address] [address]- 4720 11 Nov, 2017 [facility] [address] [id number] [place] [address] 27070- 5458 October, Generalized anxiety disorder F41.1 and Mild episode of recurrent major depressive disorder F33.0 [facility] [id number] [place] [address] 92338- 1016 October, Fibromyalgia M79.7 [facility] [id number] [place] [address] 51793- 5986 October, [facility] [address] [address] [id number] [place] [address] 96958- 2460 October, Generalized anxiety disorder F41.1 and Mild episode of recurrent major depressive disorder F33.0 [place] [address] [id number] [place] [address] 17942- 2896 October, [place] [address] [address] [id number] [place] [address] 64965- 6199 Sep, Gastroesophageal reflux disease, esophagitis presence not specified K21.9 and Abnormal laboratory test R89.9 [place] [address] [id number] [place] [address] 23851- 7793 Sep, Fibromyalgia M79.7 [place] [address] [id number] [place] [address] 03872- 7162 Sep, Generalized anxiety disorder F41.1 and Mild episode of recurrent major depressive disorder F33.0 [place] [id number] [place] [address] 49667- 3671 Sep, Epigastric pain R10.13 [place] [address] [id number] [place] [address] 10955- 6257 Sep, Mild episode of recurrent major depressive disorder F33.0 and Generalized anxiety disorder F41.1 [place] [address] [place] [id number] [place] [address] 58487- 3932 Sep, Abnormal laboratory test R89.9 [place] [address] [place] [id number] [place] [address] 03616- 4460 Sep, Generalized anxiety disorder F41.1 and Mild episode of recurrent major depressive disorder F33.0 [facility] [address] [address] [id number] [place] [address] 60388- 6288 29 Aug, 2017 Epigastric pain R10.13 and Encounter for therapeutic drug level monitoring Z51.81 [facility] [address] [id number] [place] [address] 37023 -2748 28 Aug, 2017 Epigastric pain R10.13 and Gastro-esophageal reflux disease without esophagitis K21.9 [facility] [address] 88366- 7340 22 Aug, 2017 [place] [address] 57379- 8637 21 Aug, 2017 Epigastric pain R10.13 [place] [address] 66335- 9338 Aug, Fibromyalgia M79.7 [facility] [address] 04875- 1802 14 Aug, 2017 [facility] [address] 18215- 4906 14 Aug, 2017 Generalized anxiety disorder F41.1 and Mild episode of recurrent major depressive disorder F33.0 [place] [address] 28729- 8896 08 Aug, 2017 Epigastric pain R10.13 ; Reflex sympathetic dystrophy G90.[address] [facility] [address] [address] [id number] [place] [address] 73526- 0375 Jul, Generalized anxiety disorder F41.1 and Mild episode of recurrent major depressive disorder F33.0 [place] [address] 12777- 5448 27 Jul, 2017 BMI 40.0-44.9, adult Z68.41 ; Mild episode of recurrent major depressive disorder F33.0 and Generalized anxiety disorder F41.1 [place] [address] 75335- 0629 Jul, Fibromyalgia M79.7 [facility] [id number] [place] [address] 29558- 7806 Jun, Mild episode of recurrent major depressive disorder F33.0 and Generalized anxiety disorder F41.1 [facility] [address] [id number] [place] [address] 69287- 2431 Jun, Fibromyalgia M79.7 [facility] [address] [id number] [place] [address] 18837- 4964 Jun, Generalized anxiety disorder F41.1 and Mild episode of recurrent major depressive disorder F33.0 [place] [address] [place] [id number] [place] [address] 15356- 7473 Jun, Generalized anxiety disorder F41.1 and Mild episode of recurrent major depressive disorder F33.0 [place] [address] [place] [id number] [place] [address] 48865- 8869 Jun, Generalized anxiety disorder F41.1 and Mild episode of recurrent major depressive disorder F33.0 [facility] [id number] [place] [address] 42801- 4737 Jun, [facility] [address] [place] [id number] [place] [address] 30638- 4559 Jun, Generalized anxiety disorder F41.1 and Mild episode of recurrent major depressive disorder F33.0 [facility] [id number] [place] [address] 33683- 8110 May, Fibromyalgia M79.7 [facility] [id number] [place] [address] 72920- 3825 May, Generalized anxiety disorder F41.1 and Mild episode of recurrent major depressive disorder F33.0 [facility] [id number] [place] [address] 72816- 9512 May, Mixed hyperlipidemia E78.2 ; Arthritis M19.90 ; Reactive depression F32.9 and Hypothyroidism, unspecified type E03.9 [facility] [address] [place] [id number] [place] [address] 51344- 9143 May, Arthritis M19.90 ; Reactive depression F32.9 ; Mixed hyperlipidemia E78.2 and Hypothyroidism, unspecified type E03.9 [facility] [address] [place] [id number] [place] [address] 96785- 7087 Apr, Fibromyalgia M79.7 [facility] [address] 13008- 2893 Apr, [facility] [address] [place] [id number] [place] [address] 07700- 0164 Apr, Fibromyalgia M79.7 [facility] [address] 95914- 4148 Mar, Fibromyalgia M79.7 [facility] [address] [place] [id number] [place] [address] 22579- 4358 Mar, [facility] [address] 79885- 4641 Mar, Fibromyalgia M79.7 [facility] [address] [place] [id number] [place] [address] 20879- 8117 Mar, [facility] [address] [place] [id number] [place] [address] 25997- 9871 Feb, Reflex sympathetic dystrophy G90.50 ; Right arm pain M79.[address] [facility] [address] [place] [id number] [place] [address] 21831- 7770 Feb, [facility] [address] [place] [id number] [place] [address] 23750- 2548 Feb, Anxiety F41.9 [facility] [address] [place] [id number] [place] [address] 14774- 2541 06 Feb, [address] [facility] [address] [id number] [place] [address] 07234- 2546 05 Feb, 2017 [facility] [address] [id number] [place] [address] 72834- 5282 Feb, [facility] [address] [place] [id number] [place] [address] 33468- 1055 Jan, Temporal headache R51 [facility] [address] [place] [id number] [place] [address] 73934- 7499 Jan, Fibromyalgia M79.7 [facility] [address] 19911- 2642 Dec, Fibromy[address] M79.7 [facility] [address] [place] [id number] [place] [address] 70279- 6515 Nov, Peroneal tendonitis, unspecified laterality M76.70 and Plantar fasciitis, bilateral M72.2 [place] [address] [place] [id number] [place] [address] 62595- 6927 Nov, Fibromyalgia M79.7 [facility] [address] [id number] [place] [address] 86423- 9874 October, Fibromyalgia M79.7 [facility] [address] [id number] [place] [address] 71054- 6931 October, Plantar fasciitis, bilateral M72.2 and Peroneal tendonitis, unspecified laterality M76.70 [facility] [address] [place] [id number] [place] [address] 32813- 7936 October, Fibromyalgia M79.7 [facility] [address] [id number] [place] [address] 90308- 5122 Sep, Anxiety F41.9 [place] [address] [place] [id number] [place] [address] 36803- 5744 Aug, Anxiety F41.9 and Adjustment disorder with anxiety F43.22 [facility] [address] [place] [id number] [place] [address] 94142- 5968 Aug, Pain of left foot M79.672 [facility] [address] [place] [id number] [place] [address] 40934- 2430 Aug, Pain of left foot M79.672 and Pain in right foot M79.671 [place] [address] 70961- 4540 Aug, Arthritis M19.90 ; Reactive depression F32.9 ; Fibromyalgia M79.7 ; Rosacea L71.9 ; Pain in right foot M79.671 and Pain of left foot M79.672 [place] [address] 45490- 2733 Aug, Anxiety F41.9 ; Adjustment disorder with anxiety F43.22 and Reactive depression F32.9 [place] [address] 59800- 7542 Aug, Right elbow pain M25.521 [place] [address] 05970- 5925 Aug, Plantar wart of right foot B07.0 and Actinic keratosis L57.0 [place] [address] 79880- 4286 Aug, Fibromyalgia M79.7 [place] [address] 59309- 6530 Jul, Arthritis M19.90 ; Hypothyroidism, unspecified type E03.9 ; Reactive depression F32.9 and Venous insufficiency I87.2 [place] [address] [place] [id number] [place] [address] 90646- 4067 Jul, Gastroesophageal reflux disease, esophagitis presence not specified K21.9 [place] [address] 02382- 9960 Jul, Reflex sympathetic dystrophy G90.50 [place] [address] 43522- 6994 Jul, Anxiety F41.9 ; Adjustment disorder with anxiety F43.22 and Reactive depression F32.9 [place] [address] [place] [id number] [place] [address] 88516- 2654 15 Jul, 2016 [facility] [address] 24878- 4923 03 Jul, 2016 Right elbow pain M25.521 [facility] [address] 91884- 9681 Jun, Fibromyalgia M79.7 [facility] [address] 88547- 3616 Jun, Anxiety F41.9 ; Adjustment disorder with anxiety F43.22 and Reactive depression F32.9 [place] [address] 06777- 4741 Jun, [facility] [address] 86393- 0250 Jun, Atypical chest pain R07.89 and Adjustment disorder with anxiety F43.22 [facility] [place] [address] [id number] Jun, Chest pain, unspecified type R07.9 [facility] [address] 43634- 7938 Jun, Fibromyalgia M79.7 [facility] [address] 13462- 8016 May, Anxiety F41.9 [facility] [address] 56741- 3219 14 May, 2016 [facility] [address] 45072- 4068 13 May, 2016 Right elbow pain M25.521 [place] [address] 71973- 0991 Apr, Reflex sympathetic dystrophy G90.50 and Encounter for immunization Z23 [place] [address] 25579- 9961 Apr, [place] [address] [facility] [id number] [address] 8833 Mar, [facility] [address] [address]- 7553 Feb, [facility] [address] [facility] [id number] [address]- 2545 Feb, [facility] [address] [id number] [place] [address] 21819- 3490 Jan, [facility] [address] [facility] [id number] [place] [address] 16993- 1409 Jan, Right elbow pain M25.521 and Right wrist pain M25.531 [facility] [address] [address]- 9714 Jan, [facility] [id number] [place] [address] 93298- 2778 Dec, Seborrheic keratoses L82.1 [facility] [address] [address]- 2037 Dec, [facility] [id number] [address]- 7956 Dec, [facility] [address] [address]- 6357 Dec, [facility] [address] [address]- 7677 Dec, Fibromyalgia M79.7 and Hypothyroidism, unspecified type E03.9 [facility] [address] [place] [id number] [address]- 5395 Dec, Seborrheic keratoses L82.1 [facility] [address] [place] [address] [id number] [address]- 4845 Dec, [facility] [address] [address]- 4077 Dec, [place] [id number] [facility] [id number] [place] [address]- 1360 Nov, Sebaceous cyst L72.3 [place] [address] [facility] [id number] [address]- 7794 October, Breast cancer screening Z12.39 [place] [address] [facility] [id number] [address]- 7916 October, Fibromyalgia M79.7 ; Hypothyroidism, unspecified type E03.9 and Reflex sympathetic dystrophy G90.50 [place] [address] [facility] [id number] [address]- 6529 October, Reflex sympathetic dystrophy G90.50 ; Fibromyalgia M79.7 and Hypothyroidism, unspecified type E03.9 IMMUNIZATIONS No Known Immunizations SOCIAL HISTORY Never Assessed REASON FOR VISIT Cough c/o-Celina DAVEY PLAN OF CARE Activity Details Follow Up Routine appt Reason: VITAL SIGNS Height 62 in 2018-01-03 Weight 212.8 lbs 2018-01-03 Temperature 97.9 degrees Fahrenheit 2018-01-03 Heart Rate 95 bpm 2018-01-03 Respiratory Rate 18 2018-01-03 Oximetry 98 % 2018-01-03 BMI 38.92 kg/m2 2018-01-03 Blood pressure systolic 134 mmHg 2018-01-03 Blood pressure diastolic 86 mmHg 2018-01-03 MEDICATIONS Medication Instructions Dosage Frequency Start Date End Date Duration Status Excedrin Migraine 250-250-65 MG Orally every 6 hrs 2 tablets as needed 6h Active Hydrocodone-Acetaminophen 7.5-325 MG Orally 3 times [...] Once a day 1 tablet 24h Active PredniSONE 20 mg Orally Once a day 2 tabs qd 4 days, 1 tab qd 4 days 24h Dec, Dec, 8 days Active Levothyroxine Sodium 75MCG TAKE ONE TABLET BY MOUTH ONCE DAILY Active Topiramate 200MG Orally twice a day 1 tablet 12h Active Cane - as directed Nov, Active Rexulti 2 MG Orally Once a day 1 tablet 24h Nov, 30 days Active Doxycycline Hyclate 100 mg Orally twice a day 1 tablet 12h Dec, Dec, 07 days Active Tessalon Perles 100 MG Orally Three times a day 1 capsule as needed 8h 5 days Not-Taking HydrOXYzine HCl 10 MG Orally three times a day as needed for anxiety and sleep 1 tablet May, Active RESULTS No Results PROCEDURES Procedure Date Ordered Result Body Site [facility] VISIT ESTABLISHED PATIENT January 03, 2018 INSTRUCTIONS MEDICATIONS ADMINISTERED No Known Medications [...]
--- OUTSIDE RECORDS SUMMARY | 2018-03-07 18:17 | XMS REPORT ---
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 Name Role Phone FRANK CHAPMAN Unavailable PROBLEMS Type Condition ICD9-CM Code QTY04-OD Code Onset Dates Condition Status SNOMED Code Problem Reactive depression F32.9 Active 59587883 Problem Plantar wart of right foot B07.0 Active 24774360 Problem Gastroesophageal reflux disease, esophagitis presence not specified K21.9 Active 413073701 Problem Internal derangement of right knee M23.91 Active 220205261216940 Problem Abnormal laboratory test R89.9 Active 727565306 Problem Mixed hyperlipidemia E78.2 Active 226642082 Problem Rosacea L71.9 Active 097439484 Problem Mild episode of recurrent major depressive disorder F33.0 Active 305282776 Problem Generalized anxiety disorder F41.1 Active 55003148 Problem Hypothyroidism, unspecified type E03.9 Active 41224125 Problem Right elbow pain M25.521 Active 63726699 Problem Right wrist pain M25.531 Active 93988604 Problem Reflex sympathetic dystrophy G90.50 Active 77464406 Problem Venous insufficiency I87.2 Active 79082437 Problem Fibromyalgia M79.7 Active 897053999 Problem Arthritis M19.90 Active 1062342 ALLERGIES No Information ENCOUNTERS Encounter Location Date Diagnosis [facility] [id number] [address] Mar, [facility] [address] [address] Feb, [facility] [address] [address] Feb, [facility] [address] [address] Feb, [facility] [id number] [place] [address] 31900- 1085 Feb, Bronchospasm J98.01 and Arthritis M19.90 [place] [address] [address]- [address] Jan, Medicare annual wellness visit, initial Z00.00 ; Reactive depression F32.9 ; Reflex sympathetic dystrophy G90.50 ; Fibromyalgia M79.7 ; BMI 40.0-44.9, adult Z68.41 ; Hypothyroidism, unspecified type E03.9 ; Gastroesophageal reflux disease, esophagitis presence not specified K21.9 ; Family history of osteoporosis Z82.62 ; Venous insufficiency I87.2 ; Arthritis M19.90 ; Mixed hyperlipidemia E78.2 and Generalized anxiety disorder F41.1 [place] [address] [address]- [address] Jan, Generalized anxiety disorder F41.1 and Mild episode of recurrent major depressive disorder F33.0 [place] [address] 87358- 1134 Jan, Mild episode of recurrent major depressive disorder F33.0 and Generalized anxiety disorder F41.1 [place] [address] 55806- 4871 Jan, Fibromyalgia M79.7 [facility] [id number] [place] [address] 70164- 5308 Jan, Bronchospasm J98.01 [place] [id number] [place] [address] 14595- 7586 Jan, [facility] [place] [id number] [place] [address] 59625- 9202 Jan, Generalized anxiety disorder F41.1 and Mild episode of recurrent major depressive disorder F33.0 [facility] [id number] [place] [address] 56487- 3453 Jan, Bronchitis J40 [place] [address] 52798- 2602 Dec, Mild episode of recurrent major depressive disorder F33.0 [facility] [id number] [place] [address] 40968- 9278 Dec, Generalized anxiety disorder F41.1 and Mild episode of recurrent major depressive disorder F33.0 [facility] [id number] [place] [address] 39139- 9913 Dec, Fibromyalgia M79.7 ; Arthritis M19.90 and Generalized anxiety disorder F41.1 [facility] [id number] [place] [address] 61939- 7188 Dec, Mild episode of recurrent major depressive disorder F33.0 and Generalized anxiety disorder F41.1 [facility] [id number] [place] [address] 49693- 6573 Dec, Fibromyalgia M79.7 [facility] [id number] [place] [address] 57370- 4821 Dec, Bronchitis J40 and Internal derangement of right knee M23.91 [facility] [id number] [place] [address] 00421 -5900 Dec, Cough R05 [facility] [id number] [place] [address] 44822- 7553 Dec, Generalized anxiety disorder F41.1 and Mild episode of recurrent major depressive disorder F33.0 [facility] [id number] [place] [address] 07032- 3645 Dec, [facility] [id number] [place] [address] 26949 -9656 Dec, [facility] [id number] [place] [address] 02400- 3267 Dec, Mild episode of recurrent major depressive disorder F33.0 and Generalized anxiety disorder F41.1 [facility] [id number] [place] [address] 10818- 9579 Nov, [facility] [address], [place] [address] 29 Nov, 2017 [facility] [address], [place] [address] Nov, [facility] [id number] [place] [address] 83802- 4679 Nov, Internal derangement of right knee M23.91 [facility] [id number] [place] [address] 07705- 1877 Nov, Generalized anxiety disorder F41.1 and Mild episode of recurrent major depressive disorder F33.0 [facility] [address] [place] [address] 68444- 1609 Nov, Internal derangement of right knee M23.91 [facility] [address], [place] [address] Nov, Acute right ankle pain M25.571 ; Acute pain of right knee M25.561 ; Acute left-sided low back pain without sciatica M54.5 and Right leg pain M79.604 [facility] [address], [place] [address] 15 Nov, 2017 [facility] [address] [place] [address] 52059- 8374 14 Nov, 2017 Fibromyalgia M79.7 [facility] [address] [place] [address] 35757- 3942 Nov, Generalized anxiety disorder F41.1 and Mild episode of recurrent major depressive disorder F33.0 [facility] [address], [place] [address]- 7001 11 Nov, 2017 [facility] [id number] [place] [address] 84175- 1386 30 Oct, 2017 Generalized anxiety disorder F41.1 and Mild episode of recurrent major depressive disorder F33.0 [facility] [address], [place] [address] 3[address] October, Fibromyalgia M79.7 [facility] [id number] [place] [address] 14127- 1482 October, [facility] [id number] [place] [address] 67799- 6870 October, Generalized anxiety disorder F41.1 and Mild episode of recurrent major depressive disorder F33.0 [facility] [id number] [place] [address] 23862- 7399 October, [facility] [id number] [place] [address] 44716- 0821 Sep, Gastroesophageal reflux disease, esophagitis presence not specified K21.9 and Abnormal laboratory test R89.9 [place] [id number] [place] [address] 88835- 3772 Sep, Fibromyalgia M79.7 [place] [id number] [place] [address] 31592- 5643 Sep, Generalized anxiety disorder F41.1 and Mild episode of recurrent major depressive disorder F33.0 [place] [id number] [place] [address] 42269- 8393 Sep, Epigastric pain R10.13 [facility] [id number] [place] [address] 76921- 9966 Sep, Mild episode of recurrent major depressive disorder F33.0 and Generalized anxiety disorder F41.1 [facility] [id number] [place] [address] 91461- 3078 Sep, Abnormal laboratory test R89.9 [facility] [id number] [place] [address] 53076- 2035 Sep, Generalized anxiety disorder F41.1 and Mild episode of recurrent major depressive disorder F33.0 [facility] [id number] [place] [address] 70313- 2058 Aug, Epigastric pain R10.13 and Encounter for therapeutic drug level monitoring Z51.81 [facility] [id number] [place] [address] 71903 -9209 28 Aug, 2017 Epigastric pain R10.13 and Gastro-esophageal reflux disease without esophagitis K21.9 [place] [id number] [place] [address] 66411- 5884 Aug, [place] [id number] [place] [address] 92876- 9837 Aug, Epigastric pain R10.13 [place] [id number] [place] [address] 49295- 5352 Aug, Fibromyalgia M79.7 [place] [id number] [place] [address] 61757- 2773 Aug, [place] [id number] [place] [address] 81185- 7285 Aug, Generalized anxiety disorder F41.1 and Mild episode of recurrent major depressive disorder F33.0 [place] [id number] [place] [address] 23139- 0348 08 Aug, 2017 Epigastric pain R10.13 ; Reflex sympathetic dystrophy G90.50 and Arthritis M19.90 [place] [id number] [place] [address] 80799- 7616 Jul, Generalized anxiety disorder F41.1 and Mild episode of recurrent major depressive disorder F33.0 [place] [address] [place] [address] 18474- 3554 Jul, BMI 40.0-44.9, adult Z68.41 ; Mild episode of recurrent major depressive disorder F33.0 and Generalized anxiety disorder F41.1 [place] [id number] [place] [address] 16086- 3377 Jul, Fibromyalgia M79.7 [place] [id number] [place] [address] 22616- 0355 Jun, Mild episode of recurrent major depressive disorder F33.0 and Generalized anxiety disorder F41.1 [place] [address], [place] [address]- 0396 Jun, Fibromyalgia M79.7 [facility] [id number] [place] [address] 66521- 9391 Jun, Generalized anxiety disorder F41.1 and Mild episode of recurrent major depressive disorder F33.0 [facility] [address] [place] [address] 73539- 0584 Jun, Generalized anxiety disorder F41.1 and Mild episode of recurrent major depressive disorder F33.0 [facility] [id number] [place] [address] 28780- 4719 Jun, Generalized anxiety disorder F41.1 and Mild episode of recurrent major depressive disorder F33.0 [address] [place] [place] [address] 44728- 6224 Jun, [place] [id number] [place] [address] 50378- 6391 Jun, Generalized anxiety disorder F41.1 and Mild episode of recurrent major depressive disorder F33.0 [address] [place] [address] [place] [address] 98777- 3545 May, Fibromyalgia M79.7 [facility] [address] [place] [address] 81100- 3087 May, Generalized anxiety disorder F41.1 and Mild episode of recurrent major depressive disorder F33.0 [place] [place] [address] [place] [address] 37695- 1136 May, Mixed hyperlipidemia E78.2 ; Arthritis M19.90 ; Reactive depression F32.9 and Hypothyroidism, unspecified type E03.9 [facility] [address] [place] [address] 48971- 0979 May, Arthritis M19.90 ; Reactive depression F32.9 ; Mixed hyperlipidemia E78.2 and Hypothyroidism, unspecified type E03.9 [address] [place] [address] [place] [address] 87810- 3325 Apr, Fibromyalgia M79.7 [facility] [id number] [place] [address] 96236- 9643 Apr, [facility] [id number] [place] [address] 42409- 8727 Apr, Fibromyalgia M79.7 [facility] [address] 26742- 2306 Mar, Fibromyalgia M79.7 [facility] [address] 76717- 7962 Mar, [facility] [address] 20972- 8366 Mar, Fibromyalgia M79.7 [facility] [address] 27364- 9604 Mar, [facility] [address] 53399- 8918 Feb, Reflex sympathetic dystrophy G90.50 ; Right arm pain M79.601 and Fibromyalgia M79.7 [facility] [id number] [place] [address] 17320- 2902 Feb, [facility] [id number] [place] [address] 96464- 0066 Feb, Anxiety F41.9 [facility] [id number] [place] [address] 03362 2548 Feb, Fibromyalgia M79.7 [facility] [id number] [place] [address] 72341 2542 Feb, [facility] [address] 43887- 7330 Feb, [facility] [id number] [place] [address] 68698- 8071 Jan, Temporal headache R51 [facility] [address] 59227- 5978 Jan, Fibromyalgia M79.7 [facility] [id number] [place] [address] 63545- 1285 Dec, Fibromyalgia M79.7 [facility] [id number] [place] [address] 24648- 8431 Nov, Peroneal tendonitis, unspecified laterality M76.70 and Plantar fasciitis, bilateral M72.2 [address] [place] [address] 22056- 1467 Nov, Fibromyalgia M79.7 [address] [address] 29242- 4544 October, Fibromyalgia M79.7 [address] [address] 25459- 9843 October, Plantar fasciitis, bilateral M72.2 and Peroneal tendonitis, unspecified laterality M76.70 [address] [address] 38855- 1338 October, Fibromyalgia M79.7 [facility] [id number] [place] [address] 14617- 4005 Sep, Anxiety F41.9 [facility] [id number] [place] [address] 47560- 5886 Aug, Anxiety F41.9 and Adjustment disorder with anxiety F43.22 [facility] [id number] [place] [address] 20177- 8835 Aug, Pain of left foot M79.672 [facility] [facility] [id number] [place] [address] 05217- 3585 Aug, Pain of left foot M79.672 and Pain in right foot M79.671 [facility] [id number] [place] [address] 04082- 4935 Aug, Arthritis M19.90 ; Reactive depression F32.9 ; Fibromyalgia M79.7 ; Rosacea L71.9 ; Pain in right foot M79.671 and Pain of left foot M79.672 [address] [place] [address] 45330- 8911 Aug, Anxiety F41.9 ; Adjustment disorder with anxiety F43.22 and Reactive depression F32.9 [address] [address] 06981- 0023 Aug, Right elbow pain M25.521 [address] [address] 65899- 7458 Aug, Plantar wart of right foot B07.0 and Actinic keratosis L57.0 [address] [address] 20317- 7494 Aug, Fibromyalgia M79.7 [address] [address] 46995- 2446 Jul, Arthritis M19.90 ; Hypothyroidism, unspecified type E03.9 ; Reactive depression F32.9 and Venous insufficiency I87.2 [address] [address] 80796- 4172 Jul, Gastroesophageal reflux disease, esophagitis presence not specified K21.9 [place] [address] 00746- 5033 Jul, Reflex sympathetic dystrophy G90.50 [place] [address] 87280- 1412 Jul, Anxiety F41.9 ; Adjustment disorder with anxiety F43.22 and Reactive depression F32.9 [address] [address] 33501- 8448 Jul, [place] [address] 64109- 0657 Jul, Right elbow pain M25.521 [place] [address] 46781- 8661 Jun, Fibromyalgia M79.7 [facility] [address] 84681- 5077 Jun, Anxiety F41.9 ; Adjustment disorder with anxiety F43.22 and Reactive depression F32.9 [facility] [address] 75479- 7161 Jun, [facility] [address] 59630- 5427 Jun, Atypical chest pain R07.89 and Adjustment disorder with anxiety F43.22 [place] [address] [id number] Jun, Chest pain, unspecified type R07.9 [place] [address] 51311- 8657 Jun, Fibromyalgia M79.7 [facility] [address] 80743- 5436 May, Anxiety F41.9 [place] [address] 26968- 9010 May, [facility] [address] 06537- 5960 May, Right elbow pain M25.521 [place] [address] 63309- 8746 Apr, Reflex sympathetic dystrophy G90.50 and Encounter for immunization Z23 [facility] [address] 07301- 0405 Apr, [facility] [address] 97460- 2997 14 Mar, 2016 [facility] [address] 24876- 1213 Feb, [facility] [address] 30302- 1758 Feb, [facility] [address] [address]- 0923 Jan, [facility] [id number] [place] [address] 66820- 6336 Jan, Right elbow pain M25.521 and Right wrist pain M25.531 [facility] [id number] [place] [address] 57486- 0959 Jan, [facility] [id number] [place] [address] 67517- 8134 Dec, Seborrheic keratoses L82.1 [facility] [id number] [place] [address] 27786- 0733 Dec, [facility] [id number] [place] [address] 51065- 9140 Dec, [facility] [id number] [place] [address] 55342- 5626 Dec, [facility] [id number] [place] [address] 67861- 7491 Dec, Fibromyalgia M79.7 and Hypothyroidism, unspecified type E03.9 [facility] [id number] [place] [address] 34136- 2947 Dec, Seborrheic keratoses L82.1 [facility] [id number] [place] [address] 11004- 3480 Dec, [facility] [id number] [place] [address] 91344- 1281 Dec, [facility] [id number] [place] [address] 11674- 5206 Nov, Sebaceous cyst L72.3 [facility] [id number] [place] [address] 14196- 6164 October, Breast cancer screening Z12.39 [facility] [address] [facility] [id number] [place] [address]- 7193 October, Fibromyalgia M79.7 ; Hypothyroidism, unspecified type E03.9 and Reflex sympathetic dystrophy G90.50 [facility] [address] [facility] [id number] [place] [address]- 2144 October, Reflex sympathetic dystrophy G90.50 ; Fibromyalgia M79.7 and Hypothyroidism, unspecified type E03.9 IMMUNIZATIONS No Known Immunizations SOCIAL HISTORY Never Assessed REASON FOR VISIT f/u PLAN OF CARE Activity Details Follow Up Next available Reason:aanxiety and depression VITAL SIGNS MEDICATIONS Unknown Medications RESULTS No Results PROCEDURES Procedure Date Ordered Result Body Site [facility] VISIT MENTAL HEALTH ESTAB PT December 28, 2017 Psychotherapy, patient &/family, 45 minutes, established patient December 28, 2017 INSTRUCTIONS MEDICATIONS ADMINISTERED No Known [...]
--- OUTSIDE RECORDS SUMMARY | 2018-03-07 18:17 | XMS REPORT ---
Author Author JOE BAI Organization [facility] Address [address] [place] [address] Care Team Providers Care College Advisor Name Role Phone JOE BAI Unavailable PROBLEMS Type Condition ICD9-CM Code QRH59-UT Code Onset Dates Condition Status SNOMED Code Problem Reactive depression F32.9 Active 93314898 Problem Plantar wart of right foot B07.0 Active 46757491 Problem Gastroesophageal reflux disease, esophagitis presence not specified K21.9 Active 154667644 Problem Internal derangement of right knee M23.91 Active 532335651763726 Problem Abnormal laboratory test R89.9 Active 802231249 Problem Mixed hyperlipidemia E78.2 Active 337858149 Problem Rosacea L71.9 Active 289601459 Problem Mild episode of recurrent major depressive disorder F33.0 Active 858340516 Problem Generalized anxiety disorder F41.1 Active 65267083 Problem Hypothyroidism, unspecified type E03.9 Active 03223136 Problem Right elbow pain M25.521 Active 58590841 Problem Right wrist pain M25.531 Active 56254479 Problem Reflex sympathetic dystrophy G90.50 Active 56185634 Problem Venous insufficiency I87.2 Active 83644020 Problem Fibromyalgia M79.7 Active 213544374 Problem Arthritis M19.90 Active 5253925 ALLERGIES No Information ENCOUNTERS Encounter Location Date Diagnosis [facility] [address] [address] Mar, [facility] [id number] [place] [address] 72451- 8152 Feb, [facility] [id number] [place] [address] 43189- 4593 Feb, [facility] [address], [place] [address] Feb, [place] [address] [place] [id number] [place] [address] 15654- 6447 Feb, [place] [address] 87402- 7055 Jan, Medicare annual wellness visit, initial Z00.00 ; Reactive depression F32.9 ; Reflex sympathetic dystrophy G90.50 ; Fibromyalgia M79.7 ; BMI 40.0-44.9, adult Z68.41 ; Hypothyroidism, unspecified type E03.9 ; Gastroesophageal reflux disease, esophagitis presence not specified K21.9 ; Family history of osteoporosis Z82.62 ; Venous insufficiency I87.2 ; Arthritis M19.90 ; Mixed hyperlipidemia E78.2 and Generalized anxiety disorder F41.1 [place] [address] 59105- 6523 Jan, Generalized anxiety disorder F41.1 and Mild episode of recurrent major depressive disorder F33.0 [place] [address] [address] [id number] [place] [address] 55378- 1187 Jan, Mild episode of recurrent major depressive disorder F33.0 and Generalized anxiety disorder F41.1 [place] [address] [address] [id number] [place] [address] 59849- 4541 Jan, Fibromyalgia M79.7 [place] [address] [address] [id number] [place] [address] 39678- 2691 Jan, Bronchospasm J98.01 [place] [address] [address] [id number] [place] [address] 20131- 8662 Jan, [place] [address] [address] [id number] [place] [address] 37165- 2953 Jan, Generalized anxiety disorder F41.1 and Mild episode of recurrent major depressive disorder F33.0 [place] [address] [address] [id number] [place] [address] 05885- 8464 Jan, Bronchitis J40 [place] [address] [address] [id number] [place] [address] 95647- 7055 Dec, Mild episode of recurrent major depressive disorder F33.0 [facility] [address], [place] [address] 2416 Dec, Generalized anxiety disorder F41.1 and Mild episode of recurrent major depressive disorder F33.0 [facility] [id number] [place] [address] 97891- 2346 Dec, Fibromyalgia M79.7 ; Arthritis M19.90 and Generalized anxiety disorder F41.1 [facility] [id number] [place] [address] 26620- 9596 Dec, Mild episode of recurrent major depressive disorder F33.0 and Generalized anxiety disorder F41.1 [facility] [address] [id number] [place] [address] 04622- 3792 Dec, Fibromyalgia M79.7 [facility] [id number] [place] [address] 14440- 1226 Dec, Bronchitis J40 and Internal derangement of right knee M23.91 [facility] [id number] [place] [address] 36397 -7585 Dec, Cough R05 [facility] [id number] [place] [address] 31876- 0709 Dec, Generalized anxiety disorder F41.1 and Mild episode of recurrent major depressive disorder F33.0 [facility] [id number] [place] [address] 46192- 9979 Dec, [facility] [id number] [place] [address] 79685 -6306 Dec, [facility] [id number] [place] [address] 59661- 0252 Dec, Mild episode of recurrent major depressive disorder F33.0 and Generalized anxiety disorder F41.1 [facility] [address], [place] [address] 1377 Nov, [facility] [id number] [place] [address] 41231- 4879 Nov, [facility] [address], [place] [address] 3741 Nov, [facility] [id number], [place] [address] 9067 Nov, Internal derangement of right knee M23.91 [facility] [address], [place] [address]- 1155 Nov, Generalized anxiety disorder F41.1 and Mild episode of recurrent major depressive disorder F33.0 [facility] [address], [place] [address]- 2989 Nov, Internal derangement of right knee M23.91 [facility] [id number], [place] [address] Nov, Acute right ankle pain M25.571 ; Acute pain of right knee M25.561 ; Acute left-sided low back pain without sciatica M54.5 and Right leg pain M79.604 [facility] [address], [place] [address] 8827 15 Nov, 2017 [facility] [address], [place] [address]- 1159 14 Nov, 2017 Fibromyalgia M79.7 [facility] [address], [place] [address]- 1426 13 Nov, 2017 Generalized anxiety disorder F41.1 and Mild episode of recurrent major depressive disorder F33.0 [facility] [address], [place] [address]- 6321 Nov, [facility] [id number], [place] [address]- 1322 30 Oct, 2017 Generalized anxiety disorder F41.1 and Mild episode of recurrent major depressive disorder F33.0 [facility] [address], [place] [address]- 0408 October, Fibromyalgia M79.7 [facility] [id number] [place] [address] 57434- 5958 October, [facility] [id number] [place] [address] 22623- 2441 October, Generalized anxiety disorder F41.1 and Mild episode of recurrent major depressive disorder F33.0 [facility] [address] [address] [id number] [place] [address] 27675- 6934 October, [facility] [address] 33292- 1656 Sep, Gastroesophageal reflux disease, esophagitis presence not specified K21.9 and Abnormal laboratory test R89.9 [place] [address] 10293- 5866 Sep, Fibromyalgia M79.7 [place] [address] [address] [id number] [place] [address] 99050- 1287 Sep, Generalized anxiety disorder F41.1 and Mild episode of recurrent major depressive disorder F33.0 [place] [address] [id number] [place] [address] 18729- 5929 Sep, Epigastric pain R10.13 [place] [address] [address] [id number] [place] [address] 36067- 9374 Sep, Mild episode of recurrent major depressive disorder F33.0 and Generalized anxiety disorder F41.1 [place] [address] [address] [id number] [place] [address] 78732- 1774 Sep, Abnormal laboratory test R89.9 [facility] [address] [id number] [place] [address] 24257- 7843 Sep, Generalized anxiety disorder F41.1 and Mild episode of recurrent major depressive disorder F33.0 [place] [id number] [place] [address] 78519- 6375 Aug, Epigastric pain R10.13 and Encounter for therapeutic drug level monitoring Z51.81 [facility] [id number] [place] [address] 07621 -3319 Aug, Epigastric pain R10.13 and Gastro-esophageal reflux disease without esophagitis K21.9 [place] [address] [id number] [place] [address] 65141- 1424 Aug, [place] [address] [address] [id number] [place] [address] 95990- 2650 Aug, Epigastric pain R10.13 [place] [address] 62722- 0276 Aug, Fibromyalgia M79.7 [place] [address] 22030- 5729 Aug, [place] [address] 56005- 7242 Aug, Generalized anxiety disorder F41.1 and Mild episode of recurrent major depressive disorder F33.0 [place] [address] 21162- 9686 Aug, Epigastric pain R10.13 ; Reflex sympathetic dystrophy G90.50 and Arthritis M19.90 [place] [address] [address] [id number] [place] [address] 47618- 5243 Jul, Generalized anxiety disorder F41.1 and Mild episode of recurrent major depressive disorder F33.0 [place] [address] [place] [address] [id number] [place] [address] 64830- 0884 Jul, BMI 40.0-44.9, adult Z68.41 ; Mild episode of recurrent major depressive disorder F33.0 and Generalized anxiety disorder F41.1 [place] [address] [place] [address] [id number] [place] [address] 91899- 8716 Jul, Fibromyalgia M79.7 [place] [address] [place] [id number] [place] [address] 09014- 9752 Jun, Mild episode of recurrent major depressive disorder F33.0 and Generalized anxiety disorder F41.1 [place] [address] [place] [id number] [place] [address] 90873- 6282 Jun, Fibromyalgia M79.7 [facility] [address], [place] [address]- 7226 Jun, Generalized anxiety disorder F41.1 and Mild episode of recurrent major depressive disorder F33.0 [facility] [address], [place] [address]- 2659 Jun, Generalized anxiety disorder F41.1 and Mild episode of recurrent major depressive disorder F33.0 [facility] [id number] [place] [address] 80617- 3213 Jun, Generalized anxiety disorder F41.1 and Mild episode of recurrent major depressive disorder F33.0 [facility] [id number] [place] [address] 25557- 3253 Jun, [facility] [id number] [place] [address] 23297- 7660 Jun, Generalized anxiety disorder F41.1 and Mild episode of recurrent major depressive disorder F33.0 [facility] [id number] [place] [address] 78682- 9340 May, Fibromyalgia M79.7 [facility] [address] [place] [address] 89852- 2910 May, Generalized anxiety disorder F41.1 and Mild episode of recurrent major depressive disorder F33.0 [facility] [address], [place] [address]- 5782 May, Mixed hyperlipidemia E78.2 ; Arthritis M19.90 ; Reactive depression F32.9 and Hypothyroidism, unspecified type E03.9 [facility] [address] [place] [address] 75763- 8269 May, Arthritis M19.90 ; Reactive depression F32.9 ; Mixed hyperlipidemia E78.2 and Hypothyroidism, unspecified type E03.9 [facility] [address], [place] [address]- 1940 Apr, Fibromyalgia M79.7 [facility] [address] [id number] [place] [address] 34911- 9305 Apr, [facility] [address] 12507- 6456 Apr, Fibromyalgia M79.7 [facility] [address] [id number] [place] [address] 78286- 5557 Mar, Fibromyalgia M79.7 [facility] [address] 26683- 1641 Mar, [facility] [id number] [place] [address] 53748- 6324 Mar, Fibromyalgia M79.7 [facility] [address] 78193- 8776 Mar, [facility] [address] [id number] [place] [address] 34521- 7547 Feb, Reflex sympathetic dystrophy G90.50 ; Right arm pain M79.601 and Fibromyalgia M79.7 [facility] [id number] [place] [address] 75686- 9779 Feb, [facility] [id number] [place] [address] 01801- 2611 Feb, Anxiety F41.9 [facility] [id number] [place] [address] 50794 2544 Feb, Fibromyalgia M79.7 [facility] [address] [id number] [place] [address] 01961 2546 Feb, [facility] [id number] [place] [address] 60955- 4564 Feb, [facility] [id number] [place] [address] 64460- 0901 Jan, Temporal headache R51 [facility] [id number] [place] [address] 46416 2544 Jan, Fibromyalgia M79.7 [facility] [id number] [place] [address] 15474- 2693 Dec, Fibromyalgia M79.7 [facility] [address] [id number] [place] [address] 28424- 6815 Nov, Peroneal tendonitis, unspecified laterality M76.70 and Plantar fasciitis, bilateral M72.2 [place] [address] 21582- 8655 Nov, Fibromyalgia M79.7 [place] [address] 77910- 6588 October, Fibromyalgia M79.7 [facility] [address] [place] [id number] [place] [address] 39463- 1485 October, Plantar fasciitis, bilateral M72.2 and Peroneal tendonitis, unspecified laterality M76.70 [place] [address] 50324- 0206 October, Fibromyalgia M79.7 [place] [address] [place] [id number] [place] [address] 22824- 4694 Sep, Anxiety F41.9 [place] [address] [id number] [place] [address] 13878- 4091 Aug, Anxiety F41.9 and Adjustment disorder with anxiety F43.22 [place] [address] [place] [id number] [place] [address] 77888- 3064 Aug, Pain of left foot M79.672 [place] [address] [id number] [place] [address] 76337- 6871 Aug, Pain of left foot M79.672 and Pain in right foot M79.671 [place] [address] [id number] [place] [address] 10255- 7672 Aug, Arthritis M19.90 ; Reactive depression F32.9 ; Fibromyalgia M79.7 ; Rosacea L71.9 ; Pain in right foot M79.671 and Pain of left foot M79.672 [place] [address] 07021- 5083 Aug, Anxiety F41.9 ; Adjustment disorder with anxiety F43.22 and Reactive depression F32.9 [place] [address] 75958- 2846 14 Aug, 2016 Right elbow pain M25.521 [place] [address] 25557- 5701 Aug, Plantar wart of right foot B07.0 and Actinic keratosis L57.0 [place] [address] 30662- 8176 Aug, Fibromyalgia M79.7 [place] [address] 99355- 9289 Jul, Arthritis M19.90 ; Hypothyroidism, unspecified type E03.9 ; Reactive depression F32.9 and Venous insufficiency I87.2 [place] [address] 09148- 7569 Jul, Gastroesophageal reflux disease, esophagitis presence not specified K21.9 [place] [address] 46374- 8034 Jul, Reflex sympathetic dystrophy G90.50 [place] [address] 92748- 7882 Jul, Anxiety F41.9 ; Adjustment disorder with anxiety F43.22 and Reactive depression F32.9 [place] [address] 12735- 5937 Jul, [place] [address] 87880- 1397 Jul, Right elbow pain M25.521 [place] [address] 11759- 7517 Jun, Fibromyalgia M79.7 [facility] [address] 38849- 7335 Jun, Anxiety F41.9 ; Adjustment disorder with anxiety F43.22 and Reactive depression F32.9 [facility] [address] 68904- 2751 Jun, [facility] [address] 10450- 5485 Jun, Atypical chest pain R07.89 and Adjustment disorder with anxiety F43.22 [facility] [address] [id number] Jun, Chest pain, unspecified type R07.9 [facility] [address] 70673- 1759 Jun, Fibromyalgia M79.7 [place] [address] 49258- 5955 May, Anxiety F41.9 [place] [address] 41116- 8846 May, [place] [address] 18883- 7988 May, Right elbow pain M25.521 [place] [address] 82508- 5026 Apr, Reflex sympathetic dystrophy G90.50 and Encounter for immunization Z23 [facility] [address] 05424- 0613 Apr, [place] [address] 36700- 9028 Mar, [facility] [address] 19410- 4078 Feb, [facility] [address] 81378- 3943 Feb, [facility] [id number] [place] [address] 80696- 1568 Jan, [facility] [id number] [place] [address] 49192- 2601 Jan, Right elbow pain M25.521 and Right wrist pain M25.531 [facility] [id number] [place] [address] 10086- 6024 Jan, [facility] [id number] [place] [address] 66700- 1343 Dec, Seborrheic keratoses L82.1 [facility] [id number] [place] [address] 27954- 6899 Dec, [facility] [id number] [place] [address] 76350- 4447 Dec, [facility] [id number] [place] [address] 05126- 5255 Dec, [facility] [id number] [place] [address] 09789- 3792 Dec, Fibromyalgia M79.7 and Hypothyroidism, unspecified type E03.9 [facility] [id number] [place] [address] 92190- 7827 Dec, Seborrheic keratoses L82.1 [facility] [id number] [place] [address] 76866- 8924 Dec, [facility] [id number] [place] [address] 80921- 2549 Dec, [facility] [id number] [place] [address] 56836- 5820 Nov, Sebaceous cyst L72.3 [facility] [id number] [place] [address] 12818- 3322 October, Breast cancer screening Z12.39 [facility] [id number] [place] [address] 90045- 7600 October, Fibromyalgia M79.7 ; Hypothyroidism, unspecified type E03.9 and Reflex sympathetic dystrophy G90.50 [facility] [address] [facility] [id number] [address]- 7256 October, Reflex sympathetic dystrophy G90.50 ; Fibromyalgia M79.7 and Hypothyroidism, unspecified type E03.9 IMMUNIZATIONS No Known Immunizations SOCIAL HISTORY Never Assessed REASON FOR VISIT requesting return call PLAN OF CARE VITAL SIGNS [...]
--- OUTSIDE RECORDS SUMMARY | 2018-03-07 18:18 | XMS REPORT ---
Author Author JOE BAI Organization [facility] Address [address] [place] [address] Care Team Providers Care Cephalometric Analyst Name Role Phone JOE BAI Unavailable PROBLEMS Type Condition ICD9-CM Code EDI35-YX Code Onset Dates Condition Status SNOMED Code Problem Reactive depression F32.9 Active 11191885 Problem Plantar wart of right foot B07.0 Active 12285892 Problem Gastroesophageal reflux disease, esophagitis presence not specified K21.9 Active 202276627 Problem Internal derangement of right knee M23.91 Active 733190300581588 Problem Abnormal laboratory test R89.9 Active 456200809 Problem Mixed hyperlipidemia E78.2 Active 779408133 Problem Rosacea L71.9 Active 412628991 Problem Mild episode of recurrent major depressive disorder F33.0 Active 771881733 Problem Generalized anxiety disorder F41.1 Active 33062451 Problem Hypothyroidism, unspecified type E03.9 Active 19667388 Problem Right elbow pain M25.521 Active 23443324 Problem Right wrist pain M25.531 Active 08224192 Problem Reflex sympathetic dystrophy G90.50 Active 50993939 Problem Venous insufficiency I87.2 Active 75453144 Problem Fibromyalgia M79.7 Active 045893008 Problem Arthritis M19.90 Active 2680951 ALLERGIES No Information ENCOUNTERS Encounter Location Date Diagnosis [facility] [address] [address] Mar, [facility] [address] [place] [address] 05781- 5331 Feb, [facility] [address] [place] [address] 31406- 0008 Feb, [facility] [address] [address] Feb, [facility] [id number] [place] [address] 79703- 1734 Feb, [facility] [address] 78345- 5956 Jan, Medicare annual wellness visit, initial Z00.00 ; Reactive depression F32.9 ; Reflex sympathetic dystrophy G90.50 ; Fibromyalgia M79.7 ; BMI 40.0-44.9, adult Z68.41 ; Hypothyroidism, unspecified type E03.9 ; Gastroesophageal reflux disease, esophagitis presence not specified K21.9 ; Family history of osteoporosis Z82.62 ; Venous insufficiency I87.2 ; Arthritis M19.90 ; Mixed hyperlipidemia E78.2 and Generalized anxiety disorder F41.1 [facility] [address] 09461- 9373 Jan, Generalized anxiety disorder F41.1 and Mild episode of recurrent major depressive disorder F33.0 [facility] [id number] [place] [address] 47688- 3064 Jan, Mild episode of recurrent major depressive disorder F33.0 and Generalized anxiety disorder F41.1 [facility] [id number] [place] [address] 68864- 9324 Jan, Fibromyalgia M79.7 [facility] [id number] [place] [address] 97006- 4936 Jan, Bronchospasm J98.01 [facility] [id number] [place] [address] 37928- 9934 Jan, [facility] [id number] [place] [address] 30997- 4518 Jan, Generalized anxiety disorder F41.1 and Mild episode of recurrent major depressive disorder F33.0 [facility] [id number] [place] [address] 12663- 9791 Jan, Bronchitis J40 [facility] [id number] [place] [address] 39910- 3662 Dec, Mild episode of recurrent major depressive disorder F33.0 [facility] [address] [address] 4954 Dec, Generalized anxiety disorder F41.1 and Mild episode of recurrent major depressive disorder F33.0 [facility] [id number] [place] [address] 47001- 1146 Dec, Fibromyalgia M79.7 ; Arthritis M19.90 and Generalized anxiety disorder F41.1 [facility] [id number] [place] [address] 94953- 2007 Dec, Mild episode of recurrent major depressive disorder F33.0 and Generalized anxiety disorder F41.1 [facility] [id number] [place] [address] 24813- 0914 Dec, Fibromyalgia M79.7 [facility] [id number] [place] [address] 15365- 6972 Dec, Bronchitis J40 and Internal derangement of right knee M23.91 [facility] [id number] [place] [address] 73009 -3190 Dec, Cough R05 [facility] [id number] [place] [address] 15512- 6968 Dec, Generalized anxiety disorder F41.1 and Mild episode of recurrent major depressive disorder F33.0 [facility] [address] [place] [address] 10035- 9692 Dec, [facility] [address] [place] [address] 52879 -3259 Dec, [facility] [id number] [place] [address] 80279- 2297 Dec, Mild episode of recurrent major depressive disorder F33.0 and Generalized anxiety disorder F41.1 [facility] [address] [address]- 3133 Nov, [facility] [id number] [place] [address] 01779- 5557 Nov, [facility] [address] [address]- 2623 Nov, [facility] [id number] [address]- 0105 Nov, Internal derangement of right knee M23.91 [facility] [address] [address]- 7278 Nov, Generalized anxiety disorder F41.1 and Mild episode of recurrent major depressive disorder F33.0 [facility] [address] [address]- 6069 Nov, Internal derangement of right knee M23.91 [facility] [id number] [address] Nov, Acute right ankle pain M25.571 ; Acute pain of right knee M25.561 ; Acute left-sided low back pain without sciatica M54.5 and Right leg pain M79.604 [facility] [address] [address]- 5287 15 Nov, 2017 [facility] [address] [address]- 6316 14 Nov, 2017 Fibromyalgia M79.7 [facility] [address] [address]- 7891 13 Nov, 2017 Generalized anxiety disorder F41.1 and Mild episode of recurrent major depressive disorder F33.0 [facility] [address] [address]- 0729 Nov, [facility] [id number] [address]- 7651 30 Oct, 2017 Generalized anxiety disorder F41.1 and Mild episode of recurrent major depressive disorder F33.0 [facility] [address] [address]- 2543 October, Fibromyalgia M79.7 [facility] [id number] [place] [address] 96531- 7104 October, [facility] [id number] [place] [address] 79632- 4433 October, Generalized anxiety disorder F41.1 and Mild episode of recurrent major depressive disorder F33.0 [facility] [id number] [place] [address] 91231- 0655 October, [facility] [address] 84689- 3423 Sep, Gastroesophageal reflux disease, esophagitis presence not specified K21.9 and Abnormal laboratory test R89.9 [facility] [address] 95039- 6839 Sep, Fibromyalgia M79.7 [facility] [id number] [place] [address] 26164- 3498 Sep, Generalized anxiety disorder F41.1 and Mild episode of recurrent major depressive disorder F33.0 [facility] [id number] [place] [address] 85655- 6829 Sep, Epigastric pain R10.13 [facility] [id number] [place] [address] 92108- 2462 Sep, Mild episode of recurrent major depressive disorder F33.0 and Generalized anxiety disorder F41.1 [facility] [id number] [place] [address] 41849- 3788 Sep, Abnormal laboratory test R89.9 [facility] [id number] [place] [address] 46462- 0882 Sep, Generalized anxiety disorder F41.1 and Mild episode of recurrent major depressive disorder F33.0 [facility] [id number] [place] [address] 38569- 2846 Aug, Epigastric pain R10.13 and Encounter for therapeutic drug level monitoring Z51.81 [facility] [id number] [place] [address] 46032 -6080 Aug, Epigastric pain R10.13 and Gastro-esophageal reflux disease without esophagitis K21.9 [facility] [id number] [place] [address] 98515- 3806 Aug, [facility] [id number] [place] [address] 18201- 5643 Aug, Epigastric pain R10.13 [facility] [address] 07710- 8088 Aug, Fibromyalgia M79.7 [facility] [address] 01614- 9682 Aug, [facility] [address] 10996- 1106 Aug, Generalized anxiety disorder F41.1 and Mild episode of recurrent major depressive disorder F33.0 [facility] [address] 07043- 7752 Aug, Epigastric pain R10.13 ; Reflex sympathetic dystrophy G90.50 and Arthritis M19.90 [facility] [id number] [place] [address] 46299- 8641 Jul, Generalized anxiety disorder F41.1 and Mild episode of recurrent major depressive disorder F33.0 [facility] [id number] [place] [address] 10083- 9503 Jul, BMI 40.0-44.9, adult Z68.41 ; Mild episode of recurrent major depressive disorder F33.0 and Generalized anxiety disorder F41.1 [facility] [id number] [place] [address] 76224- 7921 Jul, Fibromyalgia M79.7 [facility] [id number] [place] [address] 28097- 2363 Jun, Mild episode of recurrent major depressive disorder F33.0 and Generalized anxiety disorder F41.1 [facility] [id number] [place] [address] 92218- 1643 Jun, Fibromyalgia M79.7 [facility] [address] [address]- 3856 Jun, Generalized anxiety disorder F41.1 and Mild episode of recurrent major depressive disorder F33.0 [facility] [address] [address]- 7043 Jun, Generalized anxiety disorder F41.1 and Mild episode of recurrent major depressive disorder F33.0 [facility] [address] [place] [address] 18002- 7638 Jun, Generalized anxiety disorder F41.1 and Mild episode of recurrent major depressive disorder F33.0 [facility] [address] [place] [address] 20553- 4933 Jun, [facility] [id number] [place] [address] 66800- 0756 Jun, Generalized anxiety disorder F41.1 and Mild episode of recurrent major depressive disorder F33.0 [facility] [address] [place] [address] 53914- 0010 May, Fibromyalgia M79.7 [facility] [address] [place] [address] 52812- 9255 May, Generalized anxiety disorder F41.1 and Mild episode of recurrent major depressive disorder F33.0 [facility] [address] [address]- 3537 May, Mixed hyperlipidemia E78.2 ; Arthritis M19.90 ; Reactive depression F32.9 and Hypothyroidism, unspecified type E03.9 [facility] [address] [place] [address] 22322- 6394 May, Arthritis M19.90 ; Reactive depression F32.9 ; Mixed hyperlipidemia E78.2 and Hypothyroidism, unspecified type E03.9 [facility] [address] [address]- 0258 Apr, Fibromyalgia M79.7 [facility] [id number] [place] [address] 94695- 0217 Apr, [facility] [address] 47982- 5734 Apr, Fibromyalgia M79.7 [facility] [id number] [place] [address] 12916- 3407 Mar, Fibromyalgia M79.7 [facility] [address] 56036- 8129 Mar, [facility] [id number] [place] [address] 78567- 6995 Mar, Fibromyalgia M79.7 [facility] [address] 98684- 7266 Mar, [facility] [id number] [place] [address] 08969- 2569 Feb, Reflex sympathetic dystrophy G90.50 ; Right arm pain M79.601 and Fibromyalgia M79.7 [facility] [id number] [place] [address] 73966- 7778 Feb, [facility] [id number] [place] [address] 38967- 0021 Feb, Anxiety F41.9 [facility] [id number] [place] [address] 36816 2545 Feb, Fibromyalgia M79.7 [facility] [id number] [place] [address] 43033 2546 Feb, [facility] [id number] [place] [address] 86395- 0135 Feb, [facility] [id number] [place] [address] 00090- 4611 Jan, Temporal headache R51 [facility] [id number] [place] [address] 61096 2548 Jan, Fibromyalgia M79.7 [facility] [id number] [place] [address] 88021- 0004 Dec, Fibromyalgia M79.7 [facility] [id number] [place] [address] 43299- 8809 Nov, Peroneal tendonitis, unspecified laterality M76.70 and Plantar fasciitis, bilateral M72.2 [facility] [address] 05497- 1554 Nov, Fibromyalgia M79.7 [facility] [address] 42003- 6104 October, Fibromyalgia M79.7 [facility] [id number] [place] [address] 24693- 8464 October, Plantar fasciitis, bilateral M72.2 and Peroneal tendonitis, unspecified laterality M76.70 [facility] [address] 12521- 3991 October, Fibromyalgia M79.7 [facility] [id number] [place] [address] 50293- 3049 Sep, Anxiety F41.9 [facility] [id number] [place] [address] 65472- 0215 Aug, Anxiety F41.9 and Adjustment disorder with anxiety F43.22 [facility] [id number] [place] [address] 08775- 3361 Aug, Pain of left foot M79.672 [facility] [id number] [place] [address] 94011- 1240 Aug, Pain of left foot M79.672 and Pain in right foot M79.671 [facility] [id number] [place] [address] 67862- 2093 Aug, Arthritis M19.90 ; Reactive depression F32.9 ; Fibromyalgia M79.7 ; Rosacea L71.9 ; Pain in right foot M79.671 and Pain of left foot M79.672 [facility] [address] 47109- 6427 Aug, Anxiety F41.9 ; Adjustment disorder with anxiety F43.22 and Reactive depression F32.9 [facility] [address] 17736- 3329 14 Aug, 2016 Right elbow pain M25.521 [facility] [address] 11422- 3083 Aug, Plantar wart of right foot B07.0 and Actinic keratosis L57.0 [facility] [address] 33201- 6367 Aug, Fibromyalgia M79.7 [facility] [address] 92263- 3732 Jul, Arthritis M19.90 ; Hypothyroidism, unspecified type E03.9 ; Reactive depression F32.9 and Venous insufficiency I87.2 [facility] [address] 72053- 6988 Jul, Gastroesophageal reflux disease, esophagitis presence not specified K21.9 [facility] [address] 86443- 9740 Jul, Reflex sympathetic dystrophy G90.50 [facility] [address] 68042- 3825 Jul, Anxiety F41.9 ; Adjustment disorder with anxiety F43.22 and Reactive depression F32.9 [facility] [address] 11811- 0325 Jul, [facility] [address] 75930- 8595 Jul, Right elbow pain M25.521 [facility] [address] 81630- 2779 Jun, Fibromyalgia M79.7 [facility] [address] 22068- 5562 Jun, Anxiety F41.9 ; Adjustment disorder with anxiety F43.22 and Reactive depression F32.9 [facility] [address] 47340- 4089 Jun, [facility] [address] 49526- 0068 Jun, Atypical chest pain R07.89 and Adjustment disorder with anxiety F43.22 [facility] [address] [id number] Jun, Chest pain, unspecified type R07.9 [facility] [address] 06717- 6191 Jun, Fibromyalgia M79.7 [facility] [address] 38508- 7627 May, Anxiety F41.9 [facility] [address] 08335- 8245 May, [facility] [address] 31131- 1392 May, Right elbow pain M25.521 [facility] [address] 26519- 7419 Apr, Reflex sympathetic dystrophy G90.50 and Encounter for immunization Z23 [facility] [address] 25235- 6175 Apr, [facility] [address] 03589- 1254 Mar, [facility] [address] 14821- 5104 Feb, [facility] [address] 47025- 1057 Feb, [facility] [id number] [place] [address] 95638- 1067 Jan, [facility] [id number] [place] [address] 99585- 9285 Jan, Right elbow pain M25.521 and Right wrist pain M25.531 [facility] [id number] [place] [address] 25995- 2803 Jan, [facility] [id number] [place] [address] 11417- 8429 Dec, Seborrheic keratoses L82.1 [facility] [id number] [place] [address] 89214- 1084 Dec, [facility] [id number] [place] [address] 21192- 3870 Dec, [facility] [id number] [place] [address] 56204- 8777 Dec, [facility] [id number] [place] [address] 59722- 9627 Dec, Fibromyalgia M79.7 and Hypothyroidism, unspecified type E03.9 [facility] [id number] [place] [address] 03082- 0849 Dec, Seborrheic keratoses L82.1 [facility] [id number] [place] [address] 10070- 2665 Dec, [facility] [id number] [place] [address] 45801- 2541 Dec, [facility] [id number] [place] [address] 59077- 7062 Nov, Sebaceous cyst L72.3 [facility] [id number] [place] [address] 56461- 9738 October, Breast cancer screening Z12.39 [facility] [id number] [place] [address] 80874- 0343 October, Fibromyalgia M79.7 ; Hypothyroidism, unspecified type E03.9 and Reflex sympathetic dystrophy G90.50 [facility] [address] [facility] [id number] [place] [address]- 5636 October, Reflex sympathetic dystrophy G90.50 ; Fibromyalgia M79.7 and Hypothyroidism, unspecified type E03.9 IMMUNIZATIONS No Known Immunizations SOCIAL HISTORY Never Assessed REASON FOR VISIT PA Initiated PLAN OF CARE VITAL SIGNS MEDICATIONS Unknown [...]
--- OUTSIDE RECORDS SUMMARY | 2018-03-07 18:18 | XMS REPORT ---
Author Author JOE BAI Organization [facility] Address [address] [place] [address] Care Team Providers Care Director Dietetics Department Name Role Phone JOE BAI Unavailable PROBLEMS Type Condition ICD9-CM Code YJE74-DV Code Onset Dates Condition Status SNOMED Code Problem Reactive depression F32.9 Active 01018735 Problem Plantar wart of right foot B07.0 Active 92733876 Problem Gastroesophageal reflux disease, esophagitis presence not specified K21.9 Active 696971382 Problem Internal derangement of right knee M23.91 Active 760612249891206 Problem Abnormal laboratory test R89.9 Active 891480917 Problem Mixed hyperlipidemia E78.2 Active 442056830 Problem Rosacea L71.9 Active 691084035 Problem Mild episode of recurrent major depressive disorder F33.0 Active 079365449 Problem Generalized anxiety disorder F41.1 Active 63383691 Problem Hypothyroidism, unspecified type E03.9 Active 20254822 Problem Right elbow pain M25.521 Active 18348332 Problem Right wrist pain M25.531 Active 00885533 Problem Reflex sympathetic dystrophy G90.50 Active 66981586 Problem Venous insufficiency I87.2 Active 00331508 Problem Fibromyalgia M79.7 Active 174972559 Problem Arthritis M19.90 Active 7697151 ALLERGIES No Information ENCOUNTERS Encounter Location Date Diagnosis [facility] [address] [address] Mar, [facility] [id number] [place] [address] 43532- 5728 Feb, [facility] [id number] [place] [address] 12775- 1868 Feb, [facility] [address] [address] Feb, [facility] [id number] [place] [address] 28896- 2166 Feb, [place] [address] [address] Jan, Medicare annual wellness visit, initial Z00.00 ; Reactive depression F32.9 ; Reflex sympathetic dystrophy G90.50 ; Fibromyalgia M79.7 ; BMI 40.0-44.9, adult Z68.41 ; Hypothyroidism, unspecified type E03.9 ; Gastroesophageal reflux disease, esophagitis presence not specified K21.9 ; Family history of osteoporosis Z82.62 ; Venous insufficiency I87.2 ; Arthritis M19.90 ; Mixed hyperlipidemia E78.2 and Generalized anxiety disorder F41.1 [place] [address] [address]- 6734 Jan, Generalized anxiety disorder F41.1 and Mild episode of recurrent major depressive disorder F33.0 [facility] [id number] [place] [address] 64140- 0138 Jan, Mild episode of recurrent major depressive disorder F33.0 and Generalized anxiety disorder F41.1 [facility] [id number] [place] [address] 01066- 6157 Jan, Fibromyalgia M79.7 [facility] [id number] [place] [address] 49261- 8766 Jan, Bronchospasm J98.01 [place] [id number] [place] [address] 29820- 1057 Jan, [facility] [id number] [place] [address] 73639- 5318 Jan, Generalized anxiety disorder F41.1 and Mild episode of recurrent major depressive disorder F33.0 [place] [id number] [place] [address] 59325- 3179 Jan, Bronchitis J40 [place] [id number] [place] [address] 90908- 7204 Dec, Mild episode of recurrent major depressive disorder F33.0 [facility] [address] [address] 6419 Dec, Generalized anxiety disorder F41.1 and Mild episode of recurrent major depressive disorder F33.0 [facility] [id number] [place] [address] 84646- 3216 Dec, Fibromyalgia M79.7 ; Arthritis M19.90 and Generalized anxiety disorder F41.1 [facility] [id number] [place] [address] 71532- 1189 Dec, Mild episode of recurrent major depressive disorder F33.0 and Generalized anxiety disorder F41.1 [facility] [id number] [place] [address] 79329- 3612 Dec, Fibromyalgia M79.7 [facility] [id number] [place] [address] 09443- 9542 Dec, Bronchitis J40 and Internal derangement of right knee M23.91 [facility] [id number] [place] [address] 01456 -3616 Dec, Cough R05 [facility] [id number] [place] [address] 62077- 7508 Dec, Generalized anxiety disorder F41.1 and Mild episode of recurrent major depressive disorder F33.0 [facility] [address] [place] [address] 91590- 5582 Dec, [facility] [address] [place] [address] 66538 -8732 Dec, [facility] [id number] [place] [address] 47827- 8486 Dec, Mild episode of recurrent major depressive disorder F33.0 and Generalized anxiety disorder F41.1 [facility] [address] [address] 30[address] Nov, [facility] [id number] [place] [address] 69563- 9625 Nov, [facility] [address] [address]- 0599 Nov, [facility] [id number] [address]- 9462 Nov, Internal derangement of right knee M23.91 [facility] [address] [address]- 9268 Nov, Generalized anxiety disorder F41.1 and Mild episode of recurrent major depressive disorder F33.0 [facility] [address] [address]- 7118 Nov, Internal derangement of right knee M23.91 [facility] [id number] [address] Nov, Acute right ankle pain M25.571 ; Acute pain of right knee M25.561 ; Acute left-sided low back pain without sciatica M54.5 and Right leg pain M79.604 [facility] [address] [address] 2220 15 Nov, 2017 [facility] [address] [address]- 1667 14 Nov, 2017 Fibromyalgia M79.7 [facility] [address] [address]- 7449 13 Nov, 2017 Generalized anxiety disorder F41.1 and Mild episode of recurrent major depressive disorder F33.0 [facility] [address] [address]- 6877 Nov, [facility] [id number] [address]- 6945 30 Oct, 2017 Generalized anxiety disorder F41.1 and Mild episode of recurrent major depressive disorder F33.0 [facility] [address] [address]- 1306 October, Fibromyalgia M79.7 [facility] [id number] [place] [address] 23113- 3157 October, [facility] [id number] [place] [address] 32450- 7201 October, Generalized anxiety disorder F41.1 and Mild episode of recurrent major depressive disorder F33.0 [facility] [id number] [place] [address] 87659- 6713 October, [facility] [address] 01752- 9005 Sep, Gastroesophageal reflux disease, esophagitis presence not specified K21.9 and Abnormal laboratory test R89.9 [place] [address] 86300- 4552 Sep, Fibromyalgia M79.7 [facility] [id number] [place] [address] 93278- 2338 Sep, Generalized anxiety disorder F41.1 and Mild episode of recurrent major depressive disorder F33.0 [facility] [id number] [place] [address] 85941- 5857 Sep, Epigastric pain R10.13 [facility] [id number] [place] [address] 17868- 2260 Sep, Mild episode of recurrent major depressive disorder F33.0 and Generalized anxiety disorder F41.1 [place] [id number] [place] [address] 82609- 4664 Sep, Abnormal laboratory test R89.9 [facility] [id number] [place] [address] 45846- 1833 Sep, Generalized anxiety disorder F41.1 and Mild episode of recurrent major depressive disorder F33.0 [facility] [id number] [place] [address] 10872- 6531 Aug, Epigastric pain R10.13 and Encounter for therapeutic drug level monitoring Z51.81 [facility] [id number] [place] [address] 33803 -3980 Aug, Epigastric pain R10.13 and Gastro-esophageal reflux disease without esophagitis K21.9 [facility] [id number] [place] [address] 41577- 7684 Aug, [place] [id number] [place] [address] 51887- 3448 Aug, Epigastric pain R10.13 [place] [address] 19690- 7600 Aug, Fibromyalgia M79.7 [facility] [address] 22434- 7538 Aug, [place] [address] 02849- 0479 Aug, Generalized anxiety disorder F41.1 and Mild episode of recurrent major depressive disorder F33.0 [place] [address] 04157- 3778 Aug, Epigastric pain R10.13 ; Reflex sympathetic dystrophy G90.50 and Arthritis M19.90 [facility] [id number] [place] [address] 73316- 9684 Jul, Generalized anxiety disorder F41.1 and Mild episode of recurrent major depressive disorder F33.0 [place] [id number] [place] [address] 59812- 1503 Jul, BMI 40.0-44.9, adult Z68.41 ; Mild episode of recurrent major depressive disorder F33.0 and Generalized anxiety disorder F41.1 [place] [id number] [place] [address] 73904- 8207 Jul, Fibromyalgia M79.7 [facility] [id number] [place] [address] 84059- 6887 Jun, Mild episode of recurrent major depressive disorder F33.0 and Generalized anxiety disorder F41.1 [place] [id number] [place] [address] 91764- 4391 Jun, Fibromyalgia M79.7 [facility] [address] [address]- 3426 Jun, Generalized anxiety disorder F41.1 and Mild episode of recurrent major depressive disorder F33.0 [facility] [address] [address]- 2202 Jun, Generalized anxiety disorder F41.1 and Mild episode of recurrent major depressive disorder F33.0 [facility] [address] [place] [address] 44610- 7392 Jun, Generalized anxiety disorder F41.1 and Mild episode of recurrent major depressive disorder F33.0 [facility] [address] [place] [address] 19227- 7431 Jun, [facility] [id number] [place] [address] 52693- 6004 Jun, Generalized anxiety disorder F41.1 and Mild episode of recurrent major depressive disorder F33.0 [facility] [address] [place] [address] 15331- 3265 May, Fibromyalgia M79.7 [facility] [address] [place] [address] 72912- 4653 May, Generalized anxiety disorder F41.1 and Mild episode of recurrent major depressive disorder F33.0 [facility] [address] [address]- 8640 May, Mixed hyperlipidemia E78.2 ; Arthritis M19.90 ; Reactive depression F32.9 and Hypothyroidism, unspecified type E03.9 [facility] [address] [place] [address] 93125- 4951 May, Arthritis M19.90 ; Reactive depression F32.9 ; Mixed hyperlipidemia E78.2 and Hypothyroidism, unspecified type E03.9 [facility] [address] [address]- 5153 Apr, Fibromyalgia M79.7 [facility] [id number] [place] [address] 04457- 5626 Apr, [facility] [address] 30920- 0387 Apr, Fibromyalgia M79.7 [facility] [id number] [place] [address] 44049- 6615 Mar, Fibromyalgia M79.7 [facility] [address] 64859- 5831 Mar, [facility] [id number] [place] [address] 95539- 1004 Mar, Fibromyalgia M79.7 [facility] [address] 93497- 8536 Mar, [facility] [id number] [place] [address] 30181- 8262 Feb, Reflex sympathetic dystrophy G90.50 ; Right arm pain M79.601 and Fibromyalgia M79.7 [facility] [id number] [place] [address] 71172- 5852 Feb, [facility] [id number] [place] [address] 38569- 7183 Feb, Anxiety F41.9 [facility] [id number] [place] [address] 02637 2543 Feb, Fibromyalgia M79.7 [facility] [id number] [place] [address] 26401 2546 Feb, [facility] [id number] [place] [address] 57183- 7949 Feb, [facility] [id number] [place] [address] 55835- 2254 Jan, Temporal headache R51 [facility] [id number] [place] [address] 56189 2542 Jan, Fibromyalgia M79.7 [facility] [id number] [place] [address] 52408- 0781 Dec, Fibromyalgia M79.7 [facility] [id number] [place] [address] 61672- 6044 Nov, Peroneal tendonitis, unspecified laterality M76.70 and Plantar fasciitis, bilateral M72.2 [place] [address] 47401- 7139 Nov, Fibromyalgia M79.7 [place] [address] 03896- 8253 October, Fibromyalgia M79.7 [facility] [id number] [place] [address] 14153- 8262 October, Plantar fasciitis, bilateral M72.2 and Peroneal tendonitis, unspecified laterality M76.70 [place] [address] 35960- 4662 October, Fibromyalgia M79.7 [place] [id number] [place] [address] 03236- 1790 Sep, Anxiety F41.9 [place] [id number] [place] [address] 50594- 2007 Aug, Anxiety F41.9 and Adjustment disorder with anxiety F43.22 [place] [id number] [place] [address] 13534- 2426 Aug, Pain of left foot M79.672 [place] [id number] [place] [address] 22835- 4813 Aug, Pain of left foot M79.672 and Pain in right foot M79.671 [place] [id number] [place] [address] 41062- 1233 Aug, Arthritis M19.90 ; Reactive depression F32.9 ; Fibromyalgia M79.7 ; Rosacea L71.9 ; Pain in right foot M79.671 and Pain of left foot M79.672 [place] [address] 90111- 3221 Aug, Anxiety F41.9 ; Adjustment disorder with anxiety F43.22 and Reactive depression F32.9 [place] [address] 24935- 7924 14 Aug, 2016 Right elbow pain M25.521 [place] [address] 76029- 5110 Aug, Plantar wart of right foot B07.0 and Actinic keratosis L57.0 [place] [address] 36176- 8737 Aug, Fibromyalgia M79.7 [place] [address] 80375- 7982 Jul, Arthritis M19.90 ; Hypothyroidism, unspecified type E03.9 ; Reactive depression F32.9 and Venous insufficiency I87.2 [place] [address] 91045- 3855 Jul, Gastroesophageal reflux disease, esophagitis presence not specified K21.9 [place] [address] 43662- 3168 Jul, Reflex sympathetic dystrophy G90.50 [place] [address] 93944- 1621 Jul, Anxiety F41.9 ; Adjustment disorder with anxiety F43.22 and Reactive depression F32.9 [place] [address] 94760- 8123 Jul, [place] [address] 43487- 9023 Jul, Right elbow pain M25.521 [place] [address] 04151- 4518 Jun, Fibromyalgia M79.7 [facility] [address] 81801- 0182 Jun, Anxiety F41.9 ; Adjustment disorder with anxiety F43.22 and Reactive depression F32.9 [facility] [address] 17560- 1913 Jun, [facility] [address] 31585- 3856 Jun, Atypical chest pain R07.89 and Adjustment disorder with anxiety F43.22 [facility] [address] [id number] Jun, Chest pain, unspecified type R07.9 [facility] [address] 96158- 5812 Jun, Fibromyalgia M79.7 [place] [address] 17199- 1051 May, Anxiety F41.9 [place] [address] 59610- 5207 May, [place] [address] 98454- 3011 May, Right elbow pain M25.521 [place] [address] 45094- 8731 Apr, Reflex sympathetic dystrophy G90.50 and Encounter for immunization Z23 [facility] [address] 10923- 5976 Apr, [place] [address] 92610- 3575 Mar, [facility] [address] 07247- 0492 Feb, [facility] [address] 50556- 7372 Feb, [facility] [id number] [place] [address] 97562- 6563 Jan, [facility] [id number] [place] [address] 63508- 7799 Jan, Right elbow pain M25.521 and Right wrist pain M25.531 [facility] [id number] [place] [address] 11956- 6072 Jan, [facility] [id number] [place] [address] 84327- 6671 Dec, Seborrheic keratoses L82.1 [facility] [id number] [place] [address] 11173- 9558 Dec, [facility] [id number] [place] [address] 79212- 0860 Dec, [facility] [id number] [place] [address] 87250- 6360 Dec, [facility] [id number] [place] [address] 81655- 0879 Dec, Fibromyalgia M79.7 and Hypothyroidism, unspecified type E03.9 [facility] [id number] [place] [address] 44381- 6659 Dec, Seborrheic keratoses L82.1 [facility] [id number] [place] [address] 86419- 9007 Dec, [facility] [id number] [place] [address] 32231- 2545 Dec, [facility] [id number] [place] [address] 89486- 7915 Nov, Sebaceous cyst L72.3 [facility] [id number] [place] [address] 72283- 0160 October, Breast cancer screening Z12.39 [facility] [id number] [place] [address] 82136- 8560 October, Fibromyalgia M79.7 ; Hypothyroidism, unspecified type E03.9 and Reflex sympathetic dystrophy G90.50 [facility] [address] [facility] [id number] [place] [address]- 6332 October, Reflex sympathetic dystrophy G90.50 ; Fibromyalgia [...]
--- OUTSIDE RECORDS SUMMARY | 2018-03-07 18:19 | XMS REPORT ---
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 Name Role Phone MANAVKAYA VARMAA Unavailable PROBLEMS Type Condition ICD9-CM Code MXX14-WT Code Onset Dates Condition Status SNOMED Code Problem Reactive depression F32.9 Active 96219185 Problem Plantar wart of right foot B07.0 Active 06793231 Problem Gastroesophageal reflux disease, esophagitis presence not specified K21.9 Active 569806411 Problem Internal derangement of right knee M23.91 Active 261846315688733 Problem Abnormal laboratory test R89.9 Active 770591233 Problem Mixed hyperlipidemia E78.2 Active 558150618 Problem Rosacea L71.9 Active 451529732 Problem Mild episode of recurrent major depressive disorder F33.0 Active 178361363 Problem Generalized anxiety disorder F41.1 Active 94083853 Problem Hypothyroidism, unspecified type E03.9 Active 15081621 Problem Right elbow pain M25.521 Active 82050666 Problem Right wrist pain M25.531 Active 54004631 Problem Reflex sympathetic dystrophy G90.50 Active 94854542 Problem Venous insufficiency I87.2 Active 79024253 Problem Fibromyalgia M79.7 Active 175961869 Problem Arthritis M19.90 Active 5213288 ALLERGIES No Information ENCOUNTERS Encounter Location Date Diagnosis [facility] [address] [facility] [id number] [address] Mar, [facility] [id number] [address] Feb, [facility] [address] [address] Feb, [facility] [id number] [address] Feb, [place] [id number] [place] [address] 58999- 3479 Feb, [place] [address] [address]- [address]957 Jan, Medicare annual wellness visit, initial Z00.00 ; Reactive depression F32.9 ; Reflex sympathetic dystrophy G90.50 ; Fibromyalgia M79.7 ; BMI 40.0-44.9, adult Z68.41 ; Hypothyroidism, unspecified type E03.9 ; Gastroesophageal reflux disease, esophagitis presence not specified K21.9 ; Family history of osteoporosis Z82.62 ; Venous insufficiency I87.2 ; Arthritis M19.90 ; Mixed hyperlipidemia E78.2 and Generalized anxiety disorder F41.1 [place] [address] [address]- 67[address] Jan, Generalized anxiety disorder F41.1 and Mild episode of recurrent major depressive disorder F33.0 [place] [address] 21284- 1605 Jan, Mild episode of recurrent major depressive disorder F33.0 and Generalized anxiety disorder F41.1 [place] [address] 8[address]01- 1523 Jan, Fibromyalgia M79.7 [place] [place] [id number] [place] [address] 15840- 2737 Jan, Bronchospasm J98.01 [place] [id number] [place] [address] 55726- 2178 Jan, [place] [id number] [place] [address] 47153- 3801 Jan, Generalized anxiety disorder F41.1 and Mild episode of recurrent major depressive disorder F33.0 [place] [place] [id number] [place] [address] 42207- 1042 Jan, Bronchitis J40 [place] [id number] [place] [address] 88856- 0120 Dec, Mild episode of recurrent major depressive disorder F33.0 [facility] [id number] [place] [address] 83101- 8925 Dec, Generalized anxiety disorder F41.1 and Mild episode of recurrent major depressive disorder F33.0 [facility] [id number] [place] [address] 52879- 9253 Dec, Fibromyalgia M79.7 ; Arthritis M19.90 and Generalized anxiety disorder F41.1 [facility] [id number] [place] [address] 89897- 4754 Dec, Mild episode of recurrent major depressive disorder F33.0 and Generalized anxiety disorder F41.1 [facility] [id number] [place] [address] 70215- 2562 Dec, Fibromyalgia M79.7 [facility] [id number] [place] [address] 21745- 4162 Dec, Bronchitis J40 and Internal derangement of right knee M23.91 [facility] [id number] [place] [address] 69307 -9777 Dec, Cough R05 [facility] [id number] [place] [address] 34222- 9530 Dec, Generalized anxiety disorder F41.1 and Mild episode of recurrent major depressive disorder F33.0 [facility] [id number] [place] [address] 75059- 5030 Dec, [facility] [id number] [place] [address] 94876 -5911 Dec, [facility] [id number] [place] [address] 72942- 1204 Dec, Mild episode of recurrent major depressive disorder F33.0 and Generalized anxiety disorder F41.1 [facility] [id number] [place] [address] 96048- 2351 Nov, [facility] [id number] [place] [address] 40029- 5658 Nov, [facility] [address] [facility] [id number], [place] [address] Nov, [facility] [address] [facility] [id number] [place] [address] 76824- 8281 Nov, Internal derangement of right knee M23.91 [facility] [id number] [address] 0842 Nov, Generalized anxiety disorder F41.1 and Mild episode of recurrent major depressive disorder F33.0 [facility] [id number] [address] Nov, Internal derangement of right knee M23.91 [facility] [id number] [address] Nov, Acute right ankle pain M25.571 ; Acute pain of right knee M25.561 ; Acute left-sided low back pain without sciatica M54.5 and Right leg pain M79.604 [facility] [id number] [address] 7[address] 15 Nov, 2017 [facility] [id number] [place] [address] 43546- 1458 14 Nov, 2017 Fibromyalgia M79.7 [facility] [id number] [address] 75[address] 13 Nov, 2017 Generalized anxiety disorder F41.1 and Mild episode of recurrent major depressive disorder F33.0 [facility] [id number] [address] 2165 Nov, [facility] [id number] [address] 8[address] 30 Oct, 2017 Generalized anxiety disorder F41.1 and Mild episode of recurrent major depressive disorder F33.0 [facility] [id number] [address] 6878 October, Fibromyalgia M79.7 [facility] [id number] [place] [address] 49590- 2684 October, [facility] [id number] [place] [address] 36675- 1091 October, Generalized anxiety disorder F41.1 and Mild episode of recurrent major depressive disorder F33.0 [facility] [id number] [place] [address] 59334- 8324 October, [facility] [id number] [place] [address] 84832- 5635 Sep, Gastroesophageal reflux disease, esophagitis presence not specified K21.9 and Abnormal laboratory test R89.9 [place] [address] 45514- 1389 Sep, Fibromyalgia M79.7 [place] [id number] [place] [address] 24424- 5688 Sep, Generalized anxiety disorder F41.1 and Mild episode of recurrent major depressive disorder F33.0 [place] [id number] [place] [address] 24343- 0853 Sep, Epigastric pain R10.13 [place] [id number] [place] [address] 14568- 4791 Sep, Mild episode of recurrent major depressive disorder F33.0 and Generalized anxiety disorder F41.1 [place] [id number] [place] [address] 40497- 4692 Sep, Abnormal laboratory test R89.9 [facility] [id number] [place] [address] 71794- 6659 Sep, Generalized anxiety disorder F41.1 and Mild episode of recurrent major depressive disorder F33.0 [facility] [id number] [place] [address] 66684- 2920 Aug, Epigastric pain R10.13 and Encounter for therapeutic drug level monitoring Z51.81 [facility] [id number] [place] [address] 28695 -4658 Aug, Epigastric pain R10.13 and Gastro-esophageal reflux disease without esophagitis K21.9 [place] [address] 17541- 1586 Aug, [place] [id number] [place] [address] 21660- 1517 Aug, Epigastric pain R10.13 [place] [address] 10551- 7067 Aug, Fibromyalgia M79.7 [place] [address] 05481- 9815 Aug, [place] [address] 48911- 4926 Aug, Generalized anxiety disorder F41.1 and Mild episode of recurrent major depressive disorder F33.0 [place] [address] 24530- 2827 Aug, Epigastric pain R10.13 ; Reflex sympathetic dystrophy G90.50 and Arthritis M19.90 [place] [address] 59542- 4172 Jul, Generalized anxiety disorder F41.1 and Mild episode of recurrent major depressive disorder F33.0 [place] [address] 85145- 1406 Jul, BMI 40.0-44.9, adult Z68.41 ; Mild episode of recurrent major depressive disorder F33.0 and Generalized anxiety disorder F41.1 [place] [id number] [place] [address] 89420- 9279 Jul, Fibromyalgia M79.7 [place] [address] 08251- 4295 Jun, Mild episode of recurrent major depressive disorder F33.0 and Generalized anxiety disorder F41.1 [place] [id number] [place] [address] 76227- 9587 Jun, Fibromyalgia M79.7 [facility] [id number] [place] [address] 86173- 2316 Jun, Generalized anxiety disorder F41.1 and Mild episode of recurrent major depressive disorder F33.0 [facility] [address] [place] [address] 12427- 9178 Jun, Generalized anxiety disorder F41.1 and Mild episode of recurrent major depressive disorder F33.0 [facility] [address] [place] [address] 07870- 9553 Jun, Generalized anxiety disorder F41.1 and Mild episode of recurrent major depressive disorder F33.0 [facility] [address] [place] [address] 36765- 0627 Jun, [facility] [id number] [place] [address] 40342- 9720 Jun, Generalized anxiety disorder F41.1 and Mild episode of recurrent major depressive disorder F33.0 [facility] [address] [place] [address] 77432- 3567 May, Fibromyalgia M79.7 [facility] [id number] [place] [address] 75804- 6061 May, Generalized anxiety disorder F41.1 and Mild episode of recurrent major depressive disorder F33.0 [facility] [address] [place] [address] 71308- 5247 May, Mixed hyperlipidemia E78.2 ; Arthritis M19.90 ; Reactive depression F32.9 and Hypothyroidism, unspecified type E03.9 [facility] [address] [place] [address] 12234- 6122 May, Arthritis M19.90 ; Reactive depression F32.9 ; Mixed hyperlipidemia E78.2 and Hypothyroidism, unspecified type E03.9 [facility] [address] [address]- 6431 Apr, Fibromyalgia M79.7 [facility] [id number] [place] [address] 51600- 0896 Apr, [facility] [address] 56621 2546 Apr, Fibromyalgia M79.7 [facility] [address] 00093 2546 Mar, Fibromyalgia M79.7 [facility] [address] 03141 2546 Mar, [facility] [address] 55468 2542 Mar, Fibromyalgia M79.7 [facility] [id number] [place] [address] 77810 2546 Mar, [facility] [address] 91161 2548 Feb, Reflex sympathetic dystrophy G90.50 ; Right arm pain M79.601 and Fibromyalgia M79.7 [facility] [id number] [place] [address] 04464 2546 Feb, [facility] [address] 88253 2546 Feb, Anxiety F41.9 [facility] [id number] [place] [address] 61219 2546 Feb, Fibromyalgia M79.7 [facility] [id number] [place] [address] 05048 2546 Feb, [facility] [id number] [place] [address] 23323 2546 Feb, [facility] [id number] [place] [address] 95361 2546 Jan, Temporal headache R51 [facility] [address] 12224 2548 Jan, Fibromyalgia M79.7 [facility] [id number] [place] [address] 40040- 5011 Dec, Fibromyalgia M79.7 [facility] [id number] [place] [address] 17119- 1925 Nov, Peroneal tendonitis, unspecified laterality M76.70 and Plantar fasciitis, bilateral M72.2 [place] [address] 41442- 5009 Nov, Fibromyalgia M79.7 [place] [address] 02053- 6926 October, Fibromyalgia M79.7 [facility] [id number] [place] [address] 46615- 1085 October, Plantar fasciitis, bilateral M72.2 and Peroneal tendonitis, unspecified laterality M76.70 [place] [address] 08778- 1668 October, Fibromyalgia M79.7 [place] [id number] [place] [address] 23987- 1240 Sep, Anxiety F41.9 [place] [id number] [place] [address] 22370- 8268 Aug, Anxiety F41.9 and Adjustment disorder with anxiety F43.22 [place] [address] [place] [address] 26133- 5398 Aug, Pain of left foot M79.672 [place] [address] [place] [address] 65641- 8285 Aug, Pain of left foot M79.672 and Pain in right foot M79.671 [place] [address] [place] [address] 95533- 6117 Aug, Arthritis M19.90 ; Reactive depression F32.9 ; Fibromyalgia M79.7 ; Rosacea L71.9 ; Pain in right foot M79.671 and Pain of left foot M79.672 [place] [address] 56525- 2311 Aug, Anxiety F41.9 ; Adjustment disorder with anxiety F43.22 and Reactive depression F32.9 [place] [address] 41431- 2562 14 Aug, 2016 Right elbow pain M25.521 [place] [address] 64968- 4809 Aug, Plantar wart of right foot B07.0 and Actinic keratosis L57.0 [place] [address] 04552- 0357 Aug, Fibromyalgia M79.7 [place] [address] 59578- 6229 Jul, Arthritis M19.90 ; Hypothyroidism, unspecified type E03.9 ; Reactive depression F32.9 and Venous insufficiency I87.2 [place] [address] 13595- 9145 Jul, Gastroesophageal reflux disease, esophagitis presence not specified K21.9 [place] [address] 43977- 5762 Jul, Reflex sympathetic dystrophy G90.50 [place] [address] 75321- 2180 Jul, Anxiety F41.9 ; Adjustment disorder with anxiety F43.22 and Reactive depression F32.9 [place] [address] 85241- 1007 Jul, [place] [address] 45171- 8946 Jul, Right elbow pain M25.521 [place] [address] 20232- 7971 Jun, Fibromyalgia M79.7 [facility] [id number] [place] [address] 38190- 3819 Jun, Anxiety F41.9 ; Adjustment disorder with anxiety F43.22 and Reactive depression F32.9 [facility] [address] 96064- 6652 Jun, [facility] [address] 16418- 1756 Jun, Atypical chest pain R07.89 and Adjustment disorder with anxiety F43.22 [facility] [address] [id number] Jun, Chest pain, unspecified type R07.9 [place] [address] 39320- 8334 Jun, Fibromyalgia M79.7 [place] [address] 61120- 0445 May, Anxiety F41.9 [place] [address] 74957- 2925 May, [place] [address] 80988- 1229 May, Right elbow pain M25.521 [place] [address] 34604- 1518 Apr, Reflex sympathetic dystrophy G90.50 and Encounter for immunization Z23 [facility] [address] 58022- 6023 Apr, [place] [address] 69289- 1846 14 Mar, 2016 [facility] [address] 61405- 3142 Feb, [facility] [address] 00276- 7186 Feb, [facility] [address] [address]- 5185 Jan, [facility] [id number] [place] [address] 64039- 5550 Jan, Right elbow pain M25.521 and Right wrist pain M25.531 [facility] [id number] [place] [address] 36054- 8238 Jan, [facility] [id number] [place] [address] 66303- 5885 Dec, Seborrheic keratoses L82.1 [facility] [id number] [place] [address] 15920- 0428 Dec, [facility] [id number] [place] [address] 23076- 2007 Dec, [facility] [id number] [place] [address] 18293- 9985 Dec, [facility] [id number] [place] [address] 61719- 0404 Dec, Fibromyalgia M79.7 and Hypothyroidism, unspecified type E03.9 [facility] [id number] [place] [address] 90821- 6865 Dec, Seborrheic keratoses L82.1 [facility] [id number] [place] [address] 57018- 2670 Dec, [facility] [address] [place] [address] 72290- 0462 Dec, [facility] [id number] [place] [address] 85361- 9144 Nov, Sebaceous cyst L72.3 [facility] [id number] [place] [address] 99466- 1181 October, Breast cancer screening Z12.39 [facility] [id number] [place] [address], [place] [address]- 2566 October, Fibromyalgia M79.7 ; Hypothyroidism, unspecified type E03.9 and Reflex sympathetic dystrophy G90.50 [facility] [address] [facility] [id number] [place] [address]- 8356 October, Reflex sympathetic dystrophy G90.50 ; Fibromyalgia M79.7 and Hypothyroidism, unspecified type E03.9 IMMUNIZATIONS No Known Immunizations SOCIAL HISTORY Never Assessed REASON FOR VISIT f/u - requesting earlier appt PLAN OF CARE Activity Details Follow Up 3 Weeks Reason: VITAL SIGNS Height 62 in 2017-12-19 Weight 215.2 lbs 2017-12-19 Heart Rate 76 bpm 2017-12-19 Respiratory Rate 20 2017-12-19 BMI 39.36 kg/m2 2017-12-19 Blood pressure systolic 126 mmHg 2017-12-19 Blood pressure diastolic 88 mmHg 2017-12-19 MEDICATIONS Medication Instructions Dosage Frequency Start Date End Date Duration Status Levothyroxine Sodium 75MCG TAKE ONE TABLET BY MOUTH ONCE DAILY Active Pantoprazole Sodium 40MG Orally Once a day 1 tablet 24h Active HydrOXYzine HCl 10 MG Orally three times a day as needed for anxiety and sleep 1 tablet May, Active Topiramate 200MG Orally twice a day 1 tablet 12h Active Excedrin Migraine 250-250-65 MG Orally every 6 hrs 2 tablets as needed 6h Active Rexulti 2 MG Orally Once a day 1 tablet 24h Nov, 30 days Active Cane - as directed Nov, Active Celebrex 200 mg Orally Once a day 1 capsule with food 24h Nov, Dec, 30 day(s) Not-Taking Fiorinal 50-325-40 MG Orally every 4 hrs 1 capsule as needed 4h Jan, Active Hydrocodone-Acetaminophen 7.5-325 MG Orally 3 times a day 1 tablet 8h October, 28 days Active Orphenadrine Citrate ER 100 mg Orally twice a day 1 tablet 12h Active RESULTS No Results PROCEDURES Procedure Date Ordered Result Body Site [facility] VISIT ESTABLISHED PATIENT December 19, 2017 INSTRUCTIONS MEDICATIONS ADMINISTERED No Known [...]
--- OUTSIDE RECORDS SUMMARY | 2018-03-07 18:20 | XMS REPORT ---
Author Author JOE BAI [facility] Address [address] [place] [address] Care Team Providers Care Quiller Tender Name Role Phone JOE BAI Unavailable PROBLEMS Type Condition ICD9-CM Code DYF03-RM Code Onset Dates Condition Status SNOMED Code Problem Arthritis M19.90 Active 8476411 Problem Gastroesophageal reflux disease, esophagitis presence not specified K21.9 Active 101903889 Problem Reactive depression F32.9 Active 04755612 Problem Abnormal laboratory test R89.9 Active 117564045 Problem Mild episode of recurrent major depressive disorder F33.0 Active 674330444 Problem Rosacea L71.9 Active 240014464 Problem Plantar wart of right foot B07.0 Active 30736994 Problem Generalized anxiety disorder F41.1 Active 77329806 Problem Mixed hyperlipidemia E78.2 Active 745120266 Problem Fibromyalgia M79.7 Active 040946241 Problem Right elbow pain M25.521 Active 60657713 Problem Hypothyroidism, unspecified type E03.9 Active 82142075 Problem Right wrist pain M25.531 Active 70513595 Problem Reflex sympathetic dystrophy G90.50 Active 45255608 Problem Venous insufficiency I87.2 Active 51600649 ALLERGIES No Information ENCOUNTERS Encounter Location Date Diagnosis [facility] [id number] [place] [address] 06955- 3547 Dec, [facility] [address] [address] October, [facility] [id number] [place] [address] 60659- 8586 Sep, Medicare annual wellness visit, initial Z00.00 [facility] [address] [address] 3297 Sep, Fibromyalgia M79.7 [facility] [id number] [place] [address] 30241- 1229 17 Sep, 2017 Generalized anxiety disorder F41.1 and Mild episode of recurrent major depressive disorder F33.0 [facility] [id number] [place] [address] 17856- 5670 Sep, Epigastric pain R10.13 [facility] [id number] [place] [address] 07801- 3286 10 Sep, 2017 Mild episode of recurrent major depressive disorder F33.0 and Generalized anxiety disorder F41.1 [facility] [id number] [place] [address] 89103- 6338 02 Sep, 2017 Abnormal laboratory test R89.9 [facility] [id number] [place] [address] 10601- 9426 Sep, Generalized anxiety disorder F41.1 and Mild episode of recurrent major depressive disorder F33.0 [facility] [id number] [place] [address] 13100- 8045 29 Aug, 2017 Epigastric pain R10.13 and Encounter for therapeutic drug level monitoring Z51.81 [facility] [id number] [place] [address] 39693 -3457 28 Aug, 2017 Epigastric pain R10.13 and Gastro-esophageal reflux disease without esophagitis K21.9 [facility] [address] [place] [address] 34516- 7173 Aug, [facility] [id number] [place] [address] 38930- 6436 Aug, Epigastric pain R10.13 [facility] [id number] [place] [address] 01447- 1879 20 Aug, 2017 Fibromyalgia M79.7 [facility] [id number] [place] [address] 00911- 2640 14 Aug, 2017 [facility] [id number] [place] [address] 09117- 2534 14 Aug, 2017 Generalized anxiety disorder F41.1 and Mild episode of recurrent major depressive disorder F33.0 [facility] [id number] [place] [address] 28867- 5315 Aug, Epigastric pain R10.13 ; Reflex sympathetic dystrophy G90.50 and Arthritis M19.90 [facility] [id number] [place] [address] 27377- 9795 Jul, Generalized anxiety disorder F41.1 and Mild episode of recurrent major depressive disorder F33.0 [facility] [id number] [place] [address] 21038- 1414 Jul, BMI 40.0-44.9, adult Z68.41 ; Mild episode of recurrent major depressive disorder F33.0 and Generalized anxiety disorder F41.1 [facility] [id number] [place] [address] 47767- 7137 Jul, Fibromyalgia M79.7 [facility] [facility] [address] 46320- 6817 Jun, Mild episode of recurrent major depressive disorder F33.0 and Generalized anxiety disorder F41.1 [facility] [id number] [place] [address] 22503- 1782 Jun, Fibromyalgia M79.7 [facility] [id number] [place] [address] 47264- 6136 Jun, Generalized anxiety disorder F41.1 and Mild episode of recurrent major depressive disorder F33.0 [facility] [id number] [place] [address] 03475- 0476 Jun, Generalized anxiety disorder F41.1 and Mild episode of recurrent major depressive disorder F33.0 [facility] [id number] [place] [address] 65263- 2643 Jun, Generalized anxiety disorder F41.1 and Mild episode of recurrent major depressive disorder F33.0 [facility] [id number] [place] [address] 46614- 7935 Jun, [facility] [address] [place] [address] 73261- 9993 Jun, Generalized anxiety disorder F41.1 and Mild episode of recurrent major depressive disorder F33.0 [facility] [id number] [place] [address] 90040- 6546 May, Fibromyalgia M79.7 [facility] [id number] [place] [address] 31211- 0296 May, Generalized anxiety disorder F41.1 and Mild episode of recurrent major depressive disorder F33.0 [facility] [address] [place] [address] 00946- 8079 May, Mixed hyperlipidemia E78.2 ; Arthritis M19.90 ; Reactive depression F32.9 and Hypothyroidism, unspecified type E03.9 [facility] [id number] [place] [address] 82543- 4924 May, Arthritis M19.90 ; Reactive depression F32.9 ; Mixed hyperlipidemia E78.2 and Hypothyroidism, unspecified type E03.9 [facility] [id number] [place] [address] 65084- 6115 Apr, Fibromyalgia M79.7 [facility] [id number] [place] [address] 46778- 6041 Apr, [facility] [id number] [place] [address] 94335- 8775 Apr, Fibromyalgia M79.7 [facility] [address] [place] [address] 31165- 7251 Mar, Fibromyalgia M79.7 [facility] [id number] [place] [address] 31054- 2846 Mar, [facility] [id number] [place] [address] 77912- 5215 Mar, Fibromyalgia M79.7 [facility] [id number] [place] [address] 54016- 6352 Mar, [facility] [id number] [place] [address] 91927- 9268 Feb, Reflex sympathetic dystrophy G90.50 ; Right arm pain M79.601 and Fibromyalgia M79.7 [facility] [id number] [place] [address] 70862 2546 Feb, [facility] [address] 50898 2546 Feb, Anxiety F41.9 [facility] [address] [address]67 2545 06 Feb, 2017 Fibromyalgia M79.7 [facility] [address] 39590- 9676 Feb, [facility] [id number] [place] [address] 37567- 9706 Feb, [facility] [address] 32340- 1797 Jan, Temporal headache R51 [facility] [id number] [place] [address] 21710- 3314 Jan, Fibromyalgia M79.7 [facility] [id number] [place] [address] 57090- 5403 Dec, Fibromyalgia M79.7 [facility] [id number] [place] [address] 08989- 2548 Nov, Peroneal tendonitis, unspecified laterality M76.70 and Plantar fasciitis, bilateral M72.2 [facility] [id number] [place] [address] 69396- 3307 Nov, Fibromyalgia M79.7 [facility] [id number] [place] [address] 15474- 0867 October, Fibromyalgia M79.7 [facility] [id number] [place] [address] 27359- 4666 October, Plantar fasciitis, bilateral M72.2 and Peroneal tendonitis, unspecified laterality M76.70 [facility] [address] 10854- 8323 October, Fibromyalgia M79.7 [facility] [id number] [place] [address] 81134- 4777 Sep, Anxiety F41.9 [facility] [address] 47650- 1762 Aug, Anxiety F41.9 and Adjustment disorder with anxiety F43.22 [facility] [facility] [address] 70053- 4240 Aug, Pain of left foot M79.672 [facility] [address] 28309- 3548 Aug, Pain of left foot M79.672 and Pain in right foot M79.671 [facility] [address] 03333- 1415 Aug, Arthritis M19.90 ; Reactive depression F32.9 ; Fibromyalgia M79.7 ; Rosacea L71.9 ; Pain in right foot M79.671 and Pain of left foot M79.672 [facility] [id number] [place] [address] 02639- 0582 Aug, Anxiety F41.9 ; Adjustment disorder with anxiety F43.22 and Reactive depression F32.9 [facility] [id number] [place] [address] 41777- 4842 Aug, Right elbow pain M25.521 [facility] [facility] [address] 17857- 8691 Aug, Plantar wart of right foot B07.0 and Actinic keratosis L57.0 [facility] [id number] [place] [address] 48449- 1011 Aug, Fibromyalgia M79.7 [facility] [address] 29643- 3461 Jul, Arthritis M19.90 ; Hypothyroidism, unspecified type E03.9 ; Reactive depression F32.9 and Venous insufficiency I87.2 [facility] [address] 55411- 7662 Jul, Gastroesophageal reflux disease, esophagitis presence not specified K21.9 [facility] [address] 93435- 7178 Jul, Reflex sympathetic dystrophy G90.50 [facility] [address] 12362- 1947 Jul, Anxiety F41.9 ; Adjustment disorder with anxiety F43.22 and Reactive depression F32.9 [facility] [address] 65385- 7827 Jul, [facility] [address] 85436- 0440 Jul, Right elbow pain M25.521 [facility] [address] 66991- 6450 Jun, Fibromyalgia M79.7 [facility] [address] 25374- 3367 Jun, Anxiety F41.9 ; Adjustment disorder with anxiety F43.22 and Reactive depression F32.9 [facility] [facility] [address] 33396- 8807 Jun, [facility] [address] 29981- 7340 Jun, Atypical chest pain R07.89 and Adjustment disorder with anxiety F43.22 [place] [address] [id number] Jun, Chest pain, unspecified type R07.9 [place] [address] 77642- 4360 Jun, Fibromyalgia M79.7 [facility] [id number] [place] [address] 64551- 3929 May, Anxiety F41.9 [facility] [id number] [place] [address] 61280- 5573 May, [facility] [address] 54794- 6558 May, Right elbow pain M25.521 [facility] [address] 72054- 4428 Apr, Reflex sympathetic dystrophy G90.50 and Encounter for immunization Z23 [facility] [address] 55499- 3062 Apr, [facility] [address] 21622- 3138 Mar, [facility] [address] 60579- 6871 Feb, [facility] [id number] [place] [address] 85593- 3674 Feb, [facility] [id number] [place] [address] 18726- 7903 Jan, [facility] [id number] [place] [address] 76891- 8962 Jan, Right elbow pain M25.521 and Right wrist pain M25.531 [facility] [id number] [place] [address] 32334- 8052 Jan, [facility] [address] 32660- 6755 Dec, Seborrheic keratoses L82.1 [facility] [id number] [place] [address] 18812- 0019 Dec, [facility] [address] [place] [address]- 2697 Dec, [place] [place] [id number] [place] [address] 20457- 0311 Dec, [facility] [id number] [place] [address] 02863- 4298 Dec, Fibromyalgia M79.7 and Hypothyroidism, unspecified type E03.9 [facility] [address] 06612- 4871 Dec, Seborrheic keratoses L82.1 [facility] [id number] [place] [address] 81884- 6688 Dec, [facility] [id number] [place] [address] 15530- 7681 Dec, [place] [address] 52297- 5086 Nov, Sebaceous cyst L72.3 [facility] [place] [id number] [place] [address] 10670- 1003 October, Breast cancer screening Z12.39 [facility] [id number] [place] [address] 46238- 0754 October, Fibromyalgia M79.7 ; Hypothyroidism, unspecified type E03.9 and Reflex sympathetic dystrophy G90.50 [facility] [id number] [place] [address] 32774- 3131 October, Reflex sympathetic dystrophy G90.50 ; Fibromyalgia M79.7 and Hypothyroidism, unspecified type E03.9 IMMUNIZATIONS No Known Immunizations SOCIAL HISTORY Never Assessed REASON FOR VISIT Refill request PLAN OF CARE VITAL SIGNS MEDICATIONS Medication Instructions Dosage Frequency Start Date End Date Duration Status Prozac 20 mg Orally Once a day 3 capsule 24h Active RESULTS No Results PROCEDURES No [...]
--- OUTSIDE RECORDS SUMMARY | 2018-03-07 18:20 | XMS REPORT ---
Author Author DO YOUSSEF Organization [facility] Address [address] [place] [address] Care Team Providers Care Legislators Name Role Phone DO YOUSSEF Unavailable PROBLEMS Type Condition ICD9-CM Code YXJ05-PS Code Onset Dates Condition Status SNOMED Code Problem Arthritis M19.90 Active 6248802 Problem Gastroesophageal reflux disease, esophagitis presence not specified K21.9 Active 991438929 Problem Reactive depression F32.9 Active 83257722 Problem Abnormal laboratory test R89.9 Active 768588800 Problem Mild episode of recurrent major depressive disorder F33.0 Active 641186258 Problem Rosacea L71.9 Active 287112489 Problem Plantar wart of right foot B07.0 Active 36955641 Problem Generalized anxiety disorder F41.1 Active 26161643 Problem Mixed hyperlipidemia E78.2 Active 926032667 Problem Fibromyalgia M79.7 Active 937348516 Problem Right elbow pain M25.521 Active 07437635 Problem Hypothyroidism, unspecified type E03.9 Active 62662032 Problem Right wrist pain M25.531 Active 22120413 Problem Reflex sympathetic dystrophy G90.50 Active 21770176 Problem Venous insufficiency I87.2 Active 18798409 ALLERGIES No Information ENCOUNTERS Encounter Location Date Diagnosis [facility] [id number] [place] [address] 48129- 0564 Dec, [facility] [id number] [address] October, [facility] [id number] [place] [address] 75242- 9591 Sep, Medicare annual wellness visit, initial Z00.00 [facility] [id number] [address] Sep, Fibromyalgia M79.7 [facility] [id number] [place] [address] 37630- 7418 17 Sep, 2017 Generalized anxiety disorder F41.1 and Mild episode of recurrent major depressive disorder F33.0 [facility] [id number] [place] [address] 76780- 8505 13 Sep, 2017 Epigastric pain R10.13 [facility] [id number] [place] [address] 15964- 3233 10 Sep, 2017 Mild episode of recurrent major depressive disorder F33.0 and Generalized anxiety disorder F41.1 [facility] [id number] [place] [address] 78824- 9872 02 Sep, 2017 Abnormal laboratory test R89.9 [facility] [id number] [place] [address] 53755- 9082 02 Sep, 2017 Generalized anxiety disorder F41.1 and Mild episode of recurrent major depressive disorder F33.0 [facility] [id number] [place] [address] 39555- 0526 29 Aug, 2017 Epigastric pain R10.13 and Encounter for therapeutic drug level monitoring Z51.81 [facility] [id number] [place] [address] 04240 -5085 28 Aug, 2017 Epigastric pain R10.13 and Gastro-esophageal reflux disease without esophagitis K21.9 [facility] [id number] [place] [address] 94536- 9217 Aug, [facility] [id number] [place] [address] 23072- 4450 21 Aug, 2017 Epigastric pain R10.13 [facility] [id number] [place] [address] 78322- 0630 20 Aug, 2017 Fibromyalgia M79.7 [facility] [id number] [place] [address] 04690- 4416 14 Aug, 2017 [facility] [id number] [place] [address] 57662- 4275 14 Aug, 2017 Generalized anxiety disorder F41.1 and Mild episode of recurrent major depressive disorder F33.0 [facility] [id number] [place] [address] 53943- 1645 Aug, Epigastric pain R10.13 ; Reflex sympathetic dystrophy G90.50 and Arthritis M19.90 [facility] [id number] [place] [address] 52311- 7765 Jul, Generalized anxiety disorder F41.1 and Mild episode of recurrent major depressive disorder F33.0 [facility] [address] 61199- 1685 Jul, BMI 40.0-44.9, adult Z68.41 ; Mild episode of recurrent major depressive disorder F33.0 and Generalized anxiety disorder F41.1 [facility] [id number] [place] [address] 21475- 6154 Jul, Fibromyalgia M79.7 [facility] [address] 89258- 9221 Jun, Mild episode of recurrent major depressive disorder F33.0 and Generalized anxiety disorder F41.1 [facility] [id number] [place] [address] 96454- 3200 Jun, Fibromyalgia M79.7 [facility] [id number] [place] [address] 06517- 0757 Jun, Generalized anxiety disorder F41.1 and Mild episode of recurrent major depressive disorder F33.0 [facility] [id number] [place] [address] 86123- 4639 Jun, Generalized anxiety disorder F41.1 and Mild episode of recurrent major depressive disorder F33.0 [facility] [id number] [place] [address] 03871- 8346 Jun, Generalized anxiety disorder F41.1 and Mild episode of recurrent major depressive disorder F33.0 [facility] [id number] [place] [address] 74736- 8441 Jun, [facility] [id number] [place] [address] 84306- 6805 Jun, Generalized anxiety disorder F41.1 and Mild episode of recurrent major depressive disorder F33.0 [facility] [id number] [place] [address] 79772- 6188 May, Fibromyalgia M79.7 [facility] [id number] [place] [address] 87224- 0496 May, Generalized anxiety disorder F41.1 and Mild episode of recurrent major depressive disorder F33.0 [facility] [id number] [place] [address] 61160- 3848 May, Mixed hyperlipidemia E78.2 ; Arthritis M19.90 ; Reactive depression F32.9 and Hypothyroidism, unspecified type E03.9 [facility] [id number] [place] [address] 64068- 8248 May, Arthritis M19.90 ; Reactive depression F32.9 ; Mixed hyperlipidemia E78.2 and Hypothyroidism, unspecified type E03.9 [facility] [id number] [place] [address] 91351- 4129 Apr, Fibromyalgia M79.7 [facility] [id number] [place] [address] 01622- 0236 Apr, [facility] [id number] [place] [address] 93992- 4196 Apr, Fibromyalgia M79.7 [facility] [id number] [place] [address] 97152- 2090 Mar, Fibromyalgia M79.7 [facility] [id number] [place] [address] 33452- 1637 Mar, [facility] [id number] [place] [address] 44703- 2936 Mar, Fibromyalgia M79.7 [facility] [id number] [place] [address] 76116- 5750 Mar, [facility] [id number] [place] [address] 15749- 2075 Feb, Reflex sympathetic dystrophy G90.50 ; Right arm pain M79.601 and Fibromyalgia M79.7 [facility] [id number] [place] [address] 39419- 1216 Feb, [facility] [address] 52192- 9777 Feb, Anxiety F41.9 [facility] [address] 27980- 7000 Feb, Fibromyalgia M79.7 [facility] [id number] [place] [address] 14025- 8981 Feb, [facility] [id number] [place] [address] 22606- 8681 Feb, [facility] [address] 60366- 7512 Jan, Temporal headache R51 [facility] [address] 03561- 5329 Jan, Fibromyalgia M79.7 [facility] [id number] [place] [address] 60415- 6440 Dec, Fibromyalgia M79.7 [facility] [id number] [place] [address] 89819- 2547 Nov, Peroneal tendonitis, unspecified laterality M76.70 and Plantar fasciitis, bilateral M72.2 [facility] [address] 78541- 9541 Nov, Fibromyalgia M79.7 [facility] [id number] [place] [address] 35920- 4812 October, Fibromyalgia M79.7 [facility] [id number] [place] [address] 90103- 8470 October, Plantar fasciitis, bilateral M72.2 and Peroneal tendonitis, unspecified laterality M76.70 [facility] [address] 56379- 6115 October, Fibromyalgia M79.7 [facility] [id number] [place] [address] 54082- 5234 Sep, Anxiety F41.9 [facility] [address] 16224- 7207 Aug, Anxiety F41.9 and Adjustment disorder with anxiety F43.22 [facility] [address] 52667- 9278 Aug, Pain of left foot M79.672 [facility] [address] 59539- 5552 Aug, Pain of left foot M79.672 and Pain in right foot M79.671 [facility] [address] 88779- 3308 Aug, Arthritis M19.90 ; Reactive depression F32.9 ; Fibromyalgia M79.7 ; Rosacea L71.9 ; Pain in right foot M79.671 and Pain of left foot M79.672 [facility] [id number] [place] [address] 48649- 8704 Aug, Anxiety F41.9 ; Adjustment disorder with anxiety F43.22 and Reactive depression F32.9 [facility] [id number] [place] [address] 36726- 9390 Aug, Right elbow pain M25.521 [facility] [address] 55565- 0883 Aug, Plantar wart of right foot B07.0 and Actinic keratosis L57.0 [facility] [id number] [place] [address] 12225- 3647 Aug, Fibromyalgia M79.7 [facility] [address] 55340- 2783 Jul, Arthritis M19.90 ; Hypothyroidism, unspecified type E03.9 ; Reactive depression F32.9 and Venous insufficiency I87.2 [facility] [address] 20627- 1129 20 Jul, 2016 Gastroesophageal reflux disease, esophagitis presence not specified K21.9 [facility] [address] 13881- 5092 Jul, Reflex sympathetic dystrophy G90.50 [facility] [address] 30337- 3650 Jul, Anxiety F41.9 ; Adjustment disorder with anxiety F43.22 and Reactive depression F32.9 [facility] [address] 01882- 9676 Jul, [facility] [address] 98838- 1095 Jul, Right elbow pain M25.521 [facility] [address] 15893- 9169 Jun, Fibromyalgia M79.7 [facility] [address] 98148- 5877 Jun, Anxiety F41.9 ; Adjustment disorder with anxiety F43.22 and Reactive depression F32.9 [facility] [address] 50619- 3396 Jun, [facility] [address] 91682- 3990 Jun, Atypical chest pain R07.89 and Adjustment disorder with anxiety F43.22 [facility] [address] [id number] Jun, Chest pain, unspecified type R07.9 [facility] [address] [place] [address]- 3693 Jun, Fibromyalgia M79.7 [facility] [id number] [place] [address] 93226- 3732 May, Anxiety F41.9 [facility] [id number] [place] [address] 92380- 1668 May, [facility] [address] 38710- 0209 May, Right elbow pain M25.521 [facility] [id number] [place] [address] 75725- 6526 Apr, Reflex sympathetic dystrophy G90.50 and Encounter for immunization Z23 [facility] [address] 09476- 4032 Apr, [facility] [address] 83697- 3386 Mar, [facility] [id number] [place] [address] 41445- 4644 Feb, [facility] [address] 67039- 3596 Feb, [facility] [id number] [place] [address] 04068- 3088 Jan, [facility] [id number] [place] [address] 32459- 6166 Jan, Right elbow pain M25.521 and Right wrist pain M25.531 [facility] [id number] [place] [address] 38278- 9858 Jan, [facility] [id number] [place] [address] 29023- 7831 Dec, Seborrheic keratoses L82.1 [facility] [id number] [place] [address] 23480- 3296 Dec, [facility] [id number] [place] [address] 11127- 4685 Dec, [facility] [id number] [place] [address] 33875- 5709 Dec, [facility] [id number] [place] [address] 74700- 7027 Dec, Fibromyalgia M79.7 and Hypothyroidism, unspecified type E03.9 [facility] [id number] [place] [address] 02336- 1187 Dec, Seborrheic keratoses L82.1 [facility] [id number] [place] [address] 97451- 0140 Dec, [facility] [id number] [place] [address] 90887- 7867 Dec, [facility] [id number] [place] [address] 14894- 9057 Nov, Sebaceous cyst L72.3 [facility] [id number] [place] [address] 23150- 2433 October, Breast cancer screening Z12.39 [facility] [id number] [place] [address] 51594- 5679 October, Fibromyalgia M79.7 ; Hypothyroidism, unspecified type E03.9 and Reflex sympathetic dystrophy G90.50 [facility] [id number] [place] [address] 35079- 8757 October, Reflex sympathetic dystrophy G90.50 ; Fibromyalgia M79.7 and Hypothyroidism, unspecified type E03.9 IMMUNIZATIONS No Known Immunizations SOCIAL HISTORY Never Assessed REASON FOR VISIT Hydrocodone--02/23 PLAN OF CARE VITAL SIGNS MEDICATIONS Medication Instructions Dosage Frequency Start Date End Date Duration Status Hydrocodone-Acetaminophen 7.5-325 MG Orally 3 times a day 1 tablet 8h Feb, 28 days Active RESULTS No Results PROCEDURES [...] resection Hospitalization History surgeries Hospitalization History Chest [facility] 07/02/16
--- OUTSIDE RECORDS SUMMARY | 2018-03-07 18:21 | XMS REPORT | Continuity of Care Document ---
Author Author [facility] Organization [facility] Address Unknown Phone Unavailable Allergies Active Description Code Type Severity Reaction Onset Reported/Identified Relationship to Patient Clinical Status Yes meperidine [id number] Drug Allergy Moderate HIVES 07/24/2010 Yes Penicillins [id number] Drug Allergy Moderate HIVES 07/24/2010 Yes codeine [id number] Drug Allergy Mild PALPITATIONS 07/24/2010 Yes methocarbamol [id number] Drug Allergy Unknown HOSTILE/AGGRESS 07/02/2016 Yes baclofen [id number] Drug Allergy Unknown dizzy, nausea 09/07/2017 Yes divalproex sodium [id number] Drug Allergy Unknown N/A 09/07/2017 Yes metaxalone [id number] Drug Allergy Unknown "bad for me" 09/07/2017 Yes tizanidine [id number] Drug Allergy Unknown drowsy 09/07/2017 Medications There [...] R07.9 CHEST PAIN, UNSPECIFIED 01/29/2017 ARUNA MARTINEZ MD, Ot E03.9 HYPOTHYROIDISM, UNSPECIFIED 01/29/2017 ARUNA MARTINEZ [...] DIS AND OTH DI 01/29/2017 ARUNA MARTINEZ MD, Ot Z87.891 PERSONAL HISTORY OF NICOTINE DEPENDENCE 01/29/2017 ARUNA MARTINEZ MD Ot Z90.49 ACQUIRED ABSENCE OF OTHER SPECIFIED PART 03/18/2017 BHUMIKA VELA, JEO Austin Ot M79.601 PAIN IN RIGHT ARM 04/05/2017 FROYLAN VELA, JOSE MANUEL Lopes Ot M79.621 PAIN IN RIGHT UPPER ARM 04/05/2017 FROYLAN VELA, JOSE MANUEL M Ot R22.31 LOCALIZED SWELLING, MASS AND LUMP, RIGHT 04/08/2017 BHUMIKA VELA, JOE Austin Ot M79.601 PAIN IN RIGHT ARM 2017 BHUMIKA VELA, JOE Austin Ot M79.601 PAIN IN RIGHT ARM 04/27/2017 FROYLAN VELA, JOSE MANUEL Lopes Ot M79.621 PAIN IN RIGHT UPPER ARM 04/27/2017 FROYLAN VELA, JOSE MANUEL M Ot R22.31 LOCALIZED SWELLING, MASS AND LUMP, RIGHT 05/05/2017 FROYLAN VELA, JOSE MANUEL Lopes Ot M79.621 PAIN IN RIGHT UPPER ARM 05/05/2017 FROYLAN VELA, JOSE MANUEL M Ot R22.31 LOCALIZED SWELLING, MASS AND LUMP, [...] DO, SYLVESTER Ot R13.10 DYSPHAGIA, UNSPECIFIED 07/12/2017 SILVESTRE ABARCA, SYLVESTER Ot R13.10 DYSPHAGIA, UNSPECIFIED 09/07/2017 GREY MCKEON APRN Ot E03.9 HYPOTHYROIDISM, UNSPECIFIED 09/07/2017 GREY MCKEON APRN Ot F32.9 MAJOR DEPRESSIVE DISORDER, SINGLE EPISOD 09/07/2017 GREY MCKEON APRN Ot K21.9 GASTRO-ESOPHAGEAL REFLUX DISEASE WITHOUT 09/07/2017 GREY MCKEON APRN Ot N39.0 URINARY TRACT INFECTION, SITE NOT SPECIF 09/07/2017 GREY MCKEON APRN Ot R51 HEADACHE 09/07/2017 GREY MCKEON APRN Ot Z87.19 PERSONAL HISTORY OF OTHER DISEASES OF 09/07/2017 GREY MCKEON APRN Ot Z87.59 PERSONAL HISTORY OF COMP OF PREG, CHLDBR 09/07/2017 GREY MCKEON APRN Ot Z88.0 ALLERGY STATUS TO PENICILLIN 09/07/2017 GREY MCKEON APRN Ot Z88.1 ALLERGY STATUS TO OTHER ANTIBIOTIC AGENT 09/07/2017 GREY MCKEON APRN Ot Z88.5 ALLERGY STATUS TO NARCOTIC AGENT STATUS 09/07/2017 GREY MKCEON APRN Ot Z88.6 ALLERGY STATUS TO ANALGESIC AGENT STATUS 09/07/2017 GREY MCKEON APRN Ot Z90.49 ACQUIRED ABSENCE OF OTHER SPECIFIED PART 09/07/2017 GREY MCKEON APRN Ot Z90.89 ACQUIRED ABSENCE OF OTHER ORGANS 09/09/2017 GREY MCKEON APRN Ot E03.9 HYPOTHYROIDISM, [...] TO NARCOTIC AGENT STATUS 09/09/2017 GREY MCKEON SPECIMEN TECHNICIAN Ot Z88.6 ALLERGY STATUS TO ANALGESIC AGENT STATUS 09/09/2017 GREY MCKEON APRN Ot Z90.49 ACQUIRED ABSENCE OF OTHER SPECIFIED PART 09/09/2017 GREY MCKEON APRN Ot Z90.89 ACQUIRED ABSENCE OF OTHER ORGANS 09/21/2017 GREY MCKEON APRN Ot E03.9 HYPOTHYROIDISM, UNSPECIFIED 09/21/2017 GREY MCKEON APRN Ot F32.9 MAJOR DEPRESSIVE DISORDER, SINGLE EPISOD 09/21/2017 GREY MCKEON APRN Ot K21.9 GASTRO-ESOPHAGEAL REFLUX DISEASE WITHOUT 09/21/2017 GREY MCKEON APRN Ot R10.84 GENERALIZED ABDOMINAL PAIN 09/21/2017 GREY MCKEON APRN Ot Z87.19 PERSONAL HISTORY OF OTHER DISEASES OF TH 09/21/2017 GREY MCKEON SPECIMEN TECHNICIAN Ot Z87.59 PERSONAL HISTORY OF COMP OF PREG, CHLDBR 09/21/2017 GREY MCKEON APRN Ot Z88.0 ALLERGY STATUS TO PENICILLIN 09/21/2017 GREY MCKEON APRN Ot Z88.1 ALLERGY STATUS TO OTHER ANTIBIOTIC AGENT 09/21/2017 GREY MCKEON APRN Ot Z88.6 ALLERGY STATUS TO ANALGESIC AGENT STATUS 09/21/2017 GREY MCKEON APRN Ot Z88.8 ALLERGY STATUS TO OTH DRUG/MEDS/BIOL SUB 09/21/2017 GREY MCKEON APRN Ot Z90.49 ACQUIRED ABSENCE OF OTHER SPECIFIED PART 09/21/2017 GREY MCKEON APRN Ot Z90.89 ACQUIRED ABSENCE OF OTHER ORGANS 09/23/2017 GREY MCKEON APRN Ot E03.9 HYPOTHYROIDISM, UNSPECIFIED 09/23/2017 GREY MCKEON APRN Ot F32.9 MAJOR DEPRESSIVE DISORDER, SINGLE EPISOD 09/23/2017 GREY MCKEON APRN Ot K21.9 GASTRO-ESOPHAGEAL REFLUX DISEASE WITHOUT 09/23/2017 GREY MCKEON APRN Ot R10.84 GENERALIZED ABDOMINAL PAIN 09/23/2017 MCKEON, PETER J SPECIMEN TECHNICIAN Ot Z87.19 PERSONAL HISTORY OF OTHER DISEASES OF TH 09/23/2017 GREY MCKEON SPECIMEN TECHNICIAN Ot Z87.59 PERSONAL HISTORY OF COMP OF PREG, CHLDBR 09/23/2017 GREY MCKEON SPECIMEN TECHNICIAN Ot Z88.0 ALLERGY STATUS TO PENICILLIN 09/23/2017 GREY MCKEON SPECIMEN TECHNICIAN Ot Z88.1 ALLERGY STATUS TO OTHER ANTIBIOTIC AGENT 09/23/2017 GREY MCKEON SPECIMEN TECHNICIAN Ot Z88.6 ALLERGY STATUS TO ANALGESIC AGENT STATUS 09/23/2017 GREY MCKEON SPECIMEN TECHNICIAN Ot Z88.8 ALLERGY STATUS TO OTH DRUG/MEDS/BIOL SUB 09/23/2017 GREY MCKEON SPECIMEN TECHNICIAN Ot Z90.49 ACQUIRED ABSENCE OF OTHER SPECIFIED PART 09/23/2017 GREY MCKEON APRN Ot Z90.89 ACQUIRED ABSENCE OF OTHER ORGANS 10/07/2017 KAITY MENCHACA MD Ot E03.9 HYPOTHYROIDISM, UNSPECIFIED 10/07/2017 KAITY MENCHACA MD Ot F32.9 MAJOR DEPRESSIVE DISORDER, SINGLE EPISOD 10/07/2017 KAITY MENCHACA MD Ot F41.9 ANXIETY DISORDER, UNSPECIFIED 10/07/2017 KAITY MENCHACA MD Ot K59.09 OTHER CONSTIPATION 10/07/2017 KAITY MENCAHCA MD Ot M79.7 FIBROMYALGIA 10/07/2017 KAITY MENCHACA MD Ot R07.9 CHEST PAIN, UNSPECIFIED 10/07/2017 KAITY MENCHACA MD Ot E03.9 HYPOTHYROIDISM, UNSPECIFIED 10/07/2017 KAITY MENCHACA MD Ot F32.9 MAJOR DEPRESSIVE DISORDER, SINGLE EPISOD 10/07/2017 KAITY MENCHACA MD N Ot F41.9 ANXIETY DISORDER, UNSPECIFIED 10/07/2017 KAITY MENCHACA MD Ot K59.09 OTHER CONSTIPATION 10/07/2017 KAITY MENCHACA MD N Ot M79.7 FIBROMYALGIA 10/07/2017 KAITY MENCHACA MD Ot R07.9 CHEST PAIN, UNSPECIFIED 12/06/2017 ANA MARIA SCHULTZ SPECIMEN TECHNICIAN Ot M79.604 PAIN IN RIGHT LEG 12/07/2017 ANA MARIA SCHULTZ SPECIMEN TECHNICIAN Ot M25.471 EFFUSION, RIGHT ANKLE 12/07/2017 ANA MARIA SCHULTZ SPECIMEN TECHNICIAN Ot M25.561 PAIN IN RIGHT KNEE 12/12/2017 ANA MARIA SCHULTZ SPECIMEN TECHNICIAN Ot M25.471 EFFUSION, RIGHT ANKLE 12/12/2017 ANA MARIA SCHULTZ SPECIMEN TECHNICIAN Ot M25.561 PAIN IN RIGHT KNEE 12/22/2017 ANA MARIA SCHULTZ SPECIMEN TECHNICIAN Ot M25.471 EFFUSION, RIGHT ANKLE 12/22/2017 ANA MARIA SCHULTZ SPECIMEN TECHNICIAN Ot M25.561 PAIN IN RIGHT KNEE 02/23/2018 JOE BAI MD Ot Z00.00 ENCNTR FOR GENERAL ADULT MEDICAL EXAM W02/23/2018 JOE BAI MD Ot Z82.62 FAMILY HISTORY OF OSTEOPOROSIS 02/23/2018 JOE BAI MD, Ot Z12.31 ENCNTR SCREEN MAMMOGRAM FOR MALIGNANT NE 02/23/2018 JOYCELYN VELA, LEONID Hidalgo Ot R07.9 CHEST PAIN, UNSPECIFIED 02/23/2018 JOE BAI MD Ot M79.601 PAIN IN RIGHT ARM 02/23/2018 FROYLAN VELA, JOSE MANUEL Lopes Ot M79.621 PAIN IN RIGHT UPPER ARM 02/23/2018 FROYLAN VELA, JOSE MANUEL Lopes Ot R22.31 LOCALIZED SWELLING, MASS AND LUMP, RIGHT 02/23/2018 RIVERS DO, SYLVESTER Ot R13.10 DYSPHAGIA, UNSPECIFIED 02/23/2018 ANA MARIA SCHULTZ SPECIMEN TECHNICIAN Ot M25.471 EFFUSION, RIGHT ANKLE 02/23/2018 ANA MARIA SCHULTZ SPECIMEN TECHNICIAN Ot M25.561 PAIN IN RIGHT KNEE 02/23/2018 JOE BAI MD Ot Z00.00 ENCNTR FOR GENERAL ADULT MEDICAL EXAM W02/23/2018 JOE BAI MD, Ot Z82.62 FAMILY HISTORY OF OSTEOPOROSIS Procedures There is no data. Results Test [...] culture - 07/03/16 05:00 Bacterial urine culture [id number] NRG COLONY COUNT 10,000/ML - 100,000/ML NRG FTX;REPORTABLE SEE COMMENT NRG URINE CULTURE RESULTS PLUS NR Bacterial susceptibility panel - 07/03/16 05:00 Gentamicin [...] susceptibility test by minimum inhibitory concentration - NR Comp. Metabolic Panel (14) - 08/10/16 11:25 [...] 08/10/16 11:25 TSH 0.881 uIU/mL 0.450-4.500 [facility] 01/28/17 14:03 Sedimentation Rate-[facility] 38 mm/hr 0-40 Complete blood count (CBC) [...] culture - 01/29/17 16:40 Bacterial urine culture [id number] NRG COLONY COUNT 10,000/ML - 100,000/ML NRG FTX;REPORTABLE SENSITIVITY REPORTED 01/30 15:00 NRG Bacterial susceptibility panel - 01/29/17 16:40 Gentamicin [...] susceptibility test by minimum inhibitory concentration - [facility] [id number] - 04/04/17 18:15 Serum or plasma urea nitrogen measurement (mass/volume) 12 mg/dL 7-18 Serum or plasma creatinine measurement (mass/volume) 0.82 mg/dL 0.60-1.30 Serum or plasma urea nitrogen/creatinine mass ratio 15 NRG Serum or plasma creatinine measurement with calculation of estimated glomerular filtration rate > [facility] LIPID PANEL - 06/01/17 09:23 CHOLESTEROL, TOTAL [...] culture - 09/07/17 19:50 Bacterial urine culture [id number] NRG COLONY COUNT 10,000/ML - 100,000/ML NRG FTX;REPORTABLE SEE COMMENT NRG URINE CULTURE RESULTS PLUS NRG PDM - AMPHETAMINES W/ REFLEX d/l ISOMERS - 09/15/17 12:21 Prescribed Drug 1 Hydrocodone NRG COMMENT NRG Amphetamine NEGATIVE ng/mL <250 medMATCH Amphetamine CONSISTENT NRG Methamphetamine NEGATIVE ng/mL <250 medMATCH Methamphetamine CONSISTENT NRG Complete urinalysis with reflex to culture - 09/21/17 16:30 Urine color determination YELLOW NRG Urine clarity determination CLEAR NRG Urine pH measurement by test strip 8 5-9 Specific gravity of urine by test [...] erythrocyte count by microscopy (number/high power field) [HPF] NRG Automated urine sediment leukocyte count by [...] NRG Complete urinalysis with reflex to culture NO NRG Complete blood count (CBC) with automated white blood cell (WBC) differential - 09/21/17 17:20 Blood leukocytes automated count (number/volume) 8.9 10*3/uL 4.3-11.0 Blood erythrocytes automated count (number/volume) 3.83 10*6/uL 4.35-5.85 Venous blood hemoglobin measurement (mass/volume) 12.0 g/dL 11.5-16.0 Blood hematocrit (volume fraction) 36 % 35-52 Automated erythrocyte mean corpuscular volume 93 [foz_us] 80-99 Automated erythrocyte mean corpuscular hemoglobin (mass per erythrocyte) 31 pg 25-34 Automated erythrocyte mean corpuscular hemoglobin concentration measurement ( mass/volume) 34 g/dL 32-36 Automated erythrocyte distribution width ratio 12.7 % 10.0-14.5 Automated blood platelet count (count/volume) 287 10*3/uL 130-400 Automated blood platelet mean volume measurement 9.6 [foz_us] 7.4-10.4 Automated blood neutrophils/100 leukocytes 44 % 42-75 Automated blood lymphocytes/100 leukocytes 41 % 12-44 Blood monocytes/100 leukocytes 11 % 0-12 Automated blood eosinophils/100 leukocytes 4 % 0-10 Automated blood basophils/100 leukocytes 0 % 0-10 Blood neutrophils automated count (number/volume) 4.0 10*3 1.8-7.8 Blood lymphocytes automated count (number/volume) 3.6 10*3 1.0-4.0 Blood monocytes automated count (number/volume) 1.0 10*3 0.0-1.0 Automated eosinophil count 0.3 10*3/uL 0.0-0.3 Automated blood basophil count (count/volume) 0.0 10*3/uL 0.0-0.1 Comprehensive metabolic panel - 09/21/17 17:20 Serum or plasma sodium measurement (moles/volume) 140 mmol/L 135-145 Serum or plasma potassium measurement (moles/volume) 3.9 mmol/L 3.6-5.0 Serum or plasma chloride measurement (moles/volume) 111 mmol/L 98-107 Carbon dioxide 25 mmol/L 21-32 Serum or plasma anion gap determination (moles/volume) 4 mmol/L 5-14 Serum or plasma urea nitrogen measurement (mass/volume) 10 mg/dL 7-18 Serum or plasma creatinine measurement (mass/volume) 0.71 mg/dL 0.60-1.30 Serum or plasma urea nitrogen/creatinine mass ratio 14 NRG Serum or plasma creatinine measurement with calculation of estimated glomerular filtration rate > NRG Serum or plasma glucose measurement (mass/volume) 94 mg/dL 70-105 Serum or plasma calcium measurement (mass/volume) 9.1 mg/dL 8.5-10.1 Serum or plasma total bilirubin measurement (mass/volume) 0.1 mg/dL 0.1-1.0 Serum or plasma alkaline phosphatase measurement (enzymatic activity/volume) 92 U/L 40-136 Serum or plasma aspartate aminotransferase measurement (enzymatic activity/ volume) 20 U/L 5-34 Serum or plasma alanine aminotransferase measurement (enzymatic activity/volume ) 12 U/L 0-55 Serum or plasma protein measurement (mass/volume) 6.6 g/dL 6.4-8.2 Serum or plasma albumin measurement (mass/volume) 3.8 g/dL 3.2-4.5 Lipase - 09/21/17 17:20 Lipase 31 U/L 8-78 Complete blood count (CBC) with automated white blood cell (WBC) differential - 10/06/17 11:35 Blood leukocytes automated count (number/volume) 7.3 10*3/uL 4.3-11.0 Blood erythrocytes automated count (number/volume) 4.15 10*6/uL 4.35-5.85 Venous blood hemoglobin measurement (mass/volume) 12.8 g/dL 11.5-16.0 Blood hematocrit (volume fraction) 38 % 35-52 Automated erythrocyte mean corpuscular volume 92 [foz_us] 80-99 Automated erythrocyte mean corpuscular hemoglobin (mass per erythrocyte) 31 pg 25-34 Automated erythrocyte mean corpuscular hemoglobin concentration measurement ( mass/volume) 34 g/dL 32-36 Automated erythrocyte distribution width ratio 13.0 % 10.0-14.5 Automated blood platelet count (count/volume) 303 10*3/uL 130-400 Automated blood platelet mean volume measurement 9.6 [foz_us] 7.4-10.4 Automated blood neutrophils/100 leukocytes 46 % 42-75 Automated blood lymphocytes/100 leukocytes 38 % 12-44 Blood monocytes/100 leukocytes 11 % 0-12 Automated blood eosinophils/100 leukocytes 4 % 0-10 Automated blood basophils/100 leukocytes 0 % 0-10 Blood neutrophils automated count (number/volume) 3.4 10*3 1.8-7.8 Blood lymphocytes automated count (number/volume) 2.8 10*3 1.0-4.0 Blood monocytes automated count (number/volume) 0.8 10*3 0.0-1.0 Automated eosinophil count 0.3 10*3/uL 0.0-0.3 Automated blood basophil count (count/volume) 0.0 10*3/uL 0.0-0.1 PT panel in platelet poor plasma by coagulation assay - 10/06/17 11:35 Prothrombin time (PT) in platelet poor plasma by coagulation assay 12.7 s 12.2-14.7 INR in platelet poor plasma or blood by coagulation assay 0.9 0.8-1.4 Activated partial thromboplastin time (aPTT) in platelet poor plasma bycoagulation assay - 10/06/17 11:35 Activated partial thromboplastin time (aPTT) in platelet poor plasma bycoagulation assay 34 s 24-35 Comprehensive metabolic panel - 10/06/17 11:35 Serum or plasma sodium measurement (moles/volume) 135 mmol/L 135-145 Serum or plasma potassium measurement (moles/volume) 3.7 mmol/L 3.6-5.0 Serum or plasma chloride measurement (moles/volume) 108 mmol/L 98-107 Carbon dioxide 19 mmol/L 21-32 Serum or plasma anion gap determination (moles/volume) 8 mmol/L 5-14 Serum or plasma urea nitrogen measurement (mass/volume) 13 mg/dL 7-18 Serum or plasma creatinine measurement (mass/volume) 0.74 mg/dL 0.60-1.30 Serum or plasma urea nitrogen/creatinine mass ratio 18 NRG Serum or plasma creatinine measurement with calculation of estimated glomerular filtration rate > NRG Serum or plasma glucose measurement (mass/volume) 126 mg/dL 70-105 Serum or plasma calcium measurement (mass/volume) 9.2 mg/dL 8.5-10.1 Serum or plasma total bilirubin measurement (mass/volume) 0.2 mg/dL 0.1-1.0 Serum or plasma alkaline phosphatase measurement (enzymatic activity/volume) 91 U/L 40-136 Serum or plasma aspartate aminotransferase measurement (enzymatic activity/ volume) 25 U/L 5-34 Serum or plasma alanine aminotransferase measurement (enzymatic activity/volume ) 12 U/L 0-55 Serum or plasma protein measurement (mass/volume) 7.2 g/dL 6.4-8.2 Serum or plasma albumin measurement (mass/volume) 4.1 g/dL 3.2-4.5 Magnesium - 10/06/17 11:35 Magnesium 2.2 mg/dL 1.8-2.4 Serum or plasma troponin i.cardiac measurement (mass/volume) - 10/06/17 11:35 Serum or plasma troponin i.cardiac measurement (mass/volume) < ng/ mL <0.30 Myoglobin, serum - 10/06/17 11:35 Myoglobin, serum 31.7 ng/mL 10.0-92.0 Fibrin D-dimer FEU measurement in platelet poor plasma (mass/volume) - 11:35 Fibrin D-dimer FEU measurement in platelet poor plasma (mass/volume) 0.46 ug/mL 0.00-0.49 Serum or plasma troponin i.cardiac measurement (mass/volume) - 10/06/17 17:35 Serum or plasma troponin i.cardiac measurement (mass/volume) < ng/ mL <0.30 Serum or plasma troponin i.cardiac measurement (mass/volume) - 10/06/17 23:40 Serum or plasma troponin i.cardiac measurement (mass/volume) < ng/ mL <0.30 Lipid 1996 panel - 10/07/17 06:15 Serum or plasma triglyceride measurement (mass/volume) 158 mg/dL <150 Serum or plasma cholesterol measurement (mass/volume) 172 mg/dL < 200 Serum or plasma cholesterol in HDL measurement (mass/volume) 43 mg/ dL 40-60 Cholesterol in LDL [mass/volume] in serum or plasma by direct assay 103 mg/dL 1-129 Serum or plasma cholesterol in VLDL measurement (mass/volume) 32 mg/ dL 5-40 Encounters ACCT No. Visit Date/Time Discharge Status Pt. Type Provider Facility Loc./Unit Complaint [id number] 06/08/2017 11:24:39 06/08/2017 23:59:59 [facility] Outpatient Sylvester Rivers [id number] 05/11/2017 10:44:41 05/11/2017 23:59:59 CLS Outpatient Sylvester Rivers [id number] 04/27/2017 10:27:27 04/27/2017 23:59:59 CLS Outpatient Sylvester Rivers [id number] 08/11/2016 10:08:00 Document Registration [id number] 02/23/2018 09:59:00 02/23/2018 23:59:59 CLS Outpatient JOE BAI MD [facility] RAD HISTORY OF OSTEOPOROSIS, ADULT HEALTH MAINTENANCE [id number] 12/06/2017 15:20:00 12/06/2017 23:59:59 CLS Outpatient ANA MARIA SCHULTZ SPECIMEN TECHNICIAN [facility] RAD ACUTE PAIN OF RIGHT KNEE, RIGHT LEG PAIN [id number] 10/06/2017 12:47:00 10/07/2017 13:00:00 DIS Inpatient NIKOLAI VELA, KAITY Siddiqui [facility] 4TH CHEST PAIN [id number] 09/21/2017 14:20:00 09/21/2017 18:35:00 DIS Emergency GREY MCKEON SPECIMEN TECHNICIAN [facility] ER ABD PAIN [id number] 09/07/2017 18:45:00 09/07/2017 20:57:00 DIS Emergency GREY MCKEON SPECIMEN TECHNICIAN [facility] ER PAIN IN HEAD,NECK, AND LOWER BACK [id number] 06/29/2017 13:00:00 06/29/2017 13:47:00 DIS Outpatient SILVESTRE ABARCA, SYLVESTER [facility] REHAB DYSPHAGIA; ALLODYNIA TO R LATERAL SHOULDER [id number] 06/06/2017 10:01:00 06/06/2017 23:59:59 CLS Outpatient RIVERS DO, SYLVESTER [facility] RAD DYSPHAGIA [id number] 04/04/2017 17:51:00 04/04/2017 23:59:59 CLS Outpatient FROYLAN VELA, JOSE MANUEL Lopes [facility] LAB PAIN IN RT UPPER ARM M79.621 [id number] 03/15/2017 09:59:00 03/15/2017 23:59:59 CLS Outpatient JOE BAI MD [facility] RAD RT ARM PAIN [id number] 01/29/2017 15:46:00 01/29/2017 18:07:00 DIS Emergency MICHELLE VELA, ARUNA Bear [facility] ER SHARP SHOOTING PAINS IN HEAD,LIGHT-HEADED,PRESSURE [id number] 07/07/2016 10:54:00 07/07/2016 23:59:59 CLS Outpatient LEONID HIRSCH MD [facility] CARD CHEST PAIN [id number] 07/02/2016 23:10:00 07/03/2016 12:55:00 DIS Inpatient LEONID HIRSCH MD [facility] ICU CHEST PAIN [id number] 11/25/2015 10:15:00 11/25/2015 23:59:59 CLS Outpatient JOE BAI MD [facility] RAD SCREENING [id number] 07/24/2010 11:45:00 Document Registration [id number] 01/29/2017 09:09:00 Document Registration [id number] 02/21/2018 10:40:00 02/21/2018 23:59:59 CLS Outpatient JOE BAI MD [facility] [id number] 09/15/2017 11:40:00 Document Registration [id number] 06/01/2017 09:00:00 Document Registration
--- NOTE | 2018-03-07 18:49 | Diagnostic Imaging Report ---
INDICATION: Pain. FINDINGS: There is no fracture, dislocation, or acute-appearing articular incongruity. IMPRESSION: No acute-appearing abnormality. Dictated by: Dictated on workstation # [id number]
[2018-03-07] MEDS ORDERED: fentaNYL INJECTION 100 MCG/2 ML AMP IVP ONE (19:00)
--- NOTE | 2018-03-07 19:03 | ED Lower Extremity ---
General Chief Complaint: Lower Extremity Stated Complaint: R KNEE RECENT SURG, FALL Nursing Triage Note: PT RECENTLY HAD SURGERY ON HER RIGHT KNEE FOR CARTILAGE SCRAPING AND SUFFERED A FALL ON THE SAME KNEE. PT STATES THE PAIN HAS NOT DECREASED OR IMPROVED, WITH INCREASING PAIN UPON WEIGHT BEARING. THE FALL HAPPENED ON TUESDAY OF LAST WEEK. Nursing Sepsis Screen: No Definite Risk Source: patient Exam Limitations: no limitations History of Present Illness Date Seen by Provider: Mar 07, 2018 Time Seen by Provider: 20:49 Initial Comments Patient is a 62-year-old female who presents to the emergency room with complaints of right knee pain after a fall a few days ago. She reports that 1 week ago she had a right knee scope just prior to the fall. She is a patient of [facility] and reports that tomorrow she has an ultrasound scheduled to determine if she has blood clots in the RLE. She is able to ambulate but has increased pain on weight bearing. Onset: last week Pain/Injury Location: right knee Method of Injury: fell Modifying Factors: Worse With Movement Allergies and Home Medications Allergies Coded Allergies: Penicillins (Unverified Allergy, Intermediate, HIVES, 07/24/10) meperidine (Unverified Allergy, Intermediate, HIVES, 07/24/10) codeine (Unverified Allergy, Mild, PALPITATIONS, 07/24/10) baclofen (Unverified Adverse Reaction, Unknown, dizzy, nausea, 09/07/17) divalproex sodium (Unverified Adverse Reaction, Unknown, 09/07/17) metaxalone (Unverified Adverse Reaction, Unknown, "bad for me", 09/07/17) methocarbamol (Unverified Adverse Reaction, Unknown, HOSTILE/AGGRESSION, ) tizanidine (Unverified Adverse Reaction, Unknown, drowsy, 09/07/17) Home Medications Aspirin/Acetaminophen/Caffeine 1 Each Tablet, 1 TAB PO BID PRN for MIGRAINE, ( Reported) Butalbital/Aspirin/Caffeine 1 Each Capsule, 1 TAB PO DAILY PRN for MIGRAINE, ( Reported) Hydrocodone/Acetaminophen 1 Each Tablet, 1 TAB PO TID PRN for PAIN-MODERATE, ( Reported) Hydroxyzine HCl 10 Mg Tablet, 10 MG PO TID PRN for ANXIETY, (Reported) Levothyroxine Sodium 75 Mcg Tablet, 75 MCG PO DAILY, (Reported) Mag Hydrox/Al Hydrox/Simeth 30 Ml Oral.susp, 30 ML PO QID PRN for INDIGESTION, ( Reported) Orphenadrine Citrate 100 Mg Tablet.er, 100 MG PO BID, (Reported) Pantoprazole Sodium 40 Mg Tablet.dr, 40 MG PO DAILY, (Reported) Sucralfate 1 Gm Tablet, 1 GM PO TIDAC, (Reported) Tizanidine HCl 4 Mg Tablet, 4 MG PO TID PRN for MUSCLE SPASMS, (Reported) Topiramate 200 Mg Tablet, 200 MG PO BID, (Reported) Vortioxetine Hydrobromide 5 Mg Tablet, 5 MG PO DAILY, (Reported) Patient Home Medication List Home Medication List Reviewed: Yes Review of Systems Constitutional: see HPI; No chills, No fever Musculoskeletal: see HPI, joint pain (right knee pain) All Other Systems Reviewed Negative Unless Noted: Yes Past Kegmgdk-Pejici-Mihaov Hx Past Med/Social Hx: Reviewed Nursing Past Med/Soc Hx Patient Social History Alcohol Use: Denies Use Recreational Drug Use: No Smoking Status: Never a Smoker Type Used: Cigarettes 2nd Hand Smoke Exposure: No Recent Foreign Travel: No Contact w/Someone Who Travel: No Recent Infectious Disease Expo: No Recent Hopitalizations: No Immunizations Up To Date PED Vaccines UTD: No Date of Pneumonia Vaccine: Apr 02, 2013 Date of Influenza Vaccine: Apr 01, 2016 Seasonal Allergies Seasonal Allergies: No Past Medical History Surgeries: Yes Abdominal, Appendectomy, Bowel Surgery, Section, Gallbladder, Neurological, Orthopedic, Tonsillectomy Respiratory: Yes Asthma Currently Using CPAP: No Currently Using BIPAP: No Cardiac: Yes (" THEY THINK IT'S FROM ANXIETY.") Angina Neurological: Yes Headaches /Migraines : No Female 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 Sexually Transmitted Disease: No HIV/AIDS: No Genitourinary: No Gastrointestinal: Yes Gastroesophageal Reflux, Chronic Constipation, Chronic Diarrhea, Ulcer, Irritable Bowel Musculoskeletal: Yes (CHRONIC NECK PAIN; RSD) Fibromyalgia, Chronic Back Pain Endocrine: Yes (HYPOGLYCEMIC) Hypothyroidsim HEENT: Yes (Vision changes in right eye, 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 ear.) Loss of Vision: Right Hearing Impairment: Deaf Cancer: No Did You Recieve Any Treatments: No Psychosocial: Yes Anxiety, Depression Integumentary: No Blood Disorders: No Adverse Reaction/Blood Tranf: No Family Medical History Reviewed Nursing Family Hx Congenital heart disease Diabetes mellitus G8 BROTHER, Onset:Unknown Irregular heart beat 19 FATHER, , Onset:Unknown G8 SISTER, Onset:Unknown Myocardial infarction G8 BROTHER, Onset:Unknown Heart Disease, CAD Over 55 Years Old, Diabetes Physical Exam Vital Signs Capillary Refill : Less Than 3 Seconds Height, Weight, BMI Height: 5'2.00" Weight: 221lbs. 1.0oz. 100.930602pf; 39.9 BMI Method:Stated General Appearance: WD/WN, no apparent distress Cardiovascular: normal peripheral pulses, regular rate, rhythm, no edema, no gallop, no JVD, no murmur Respiratory: chest non-tender, lungs clear, normal breath sounds, no respiratory distress, no accessory muscle use Knees: right knee pain, right knee soft tissue tenderness, right knee other ( inscisions intact and no redness or swelling noted.) Neurologic/Tendon: normal sensation, normal motor functions, normal tendon functions, responds to pain, no evidence tendon injury, other (normal distal pulses) Neurologic/Psychiatric: alert, normal mood/affect, oriented x 3 Skin: normal color, warm/dry Progress/Results/Core Measures Results/Orders Lab Results Laboratory Tests Test 03/07/18 18:40 Range/Units White Blood Count 10.0 4.3-11.0 10^3/uL Red Blood Count 3.90 L 4.35-5.85 10^6/uL Hemoglobin 12.3 11.5-16.0 G/DL Hematocrit 36 35-52 % Mean Corpuscular Volume 92 80-99 FL Mean Corpuscular Hemoglobin 32 25-34 PG Mean Corpuscular Hemoglobin Concent 34 32-36 G/DL Red Cell Distribution Width 13.7 10.0-14.5 % Platelet Count 329 130-400 10^3/uL Mean Platelet Volume 9.7 7.4-10.4 FL Neutrophils (%) (Auto) 45 42-75 % Lymphocytes (%) (Auto) 41 12-44 % Monocytes (%) (Auto) 10 0-12 % Eosinophils (%) (Auto) 3 0-10 % Basophils (%) (Auto) 0 0-10 % Neutrophils # (Auto) 4.5 1.8-7.8 X 10^3 Lymphocytes # (Auto) 4.1 H 1.0-4.0 X 10^3 Monocytes # (Auto) 1.0 0.0-1.0 X 10^3 Eosinophils # (Auto) 0.3 0.0-0.3 10^3/uL Basophils # (Auto) 0.0 0.0-0.1 10^3/uL D-Dimer 1.11 H 0.00-0.49 UG/ML Sodium Level 136 135-145 MMOL/L Potassium Level 3.6 3.6-5.0 MMOL/L Chloride Level 107 98-107 MMOL/L Carbon Dioxide Level 20 L 21-32 MMOL/L Anion Gap 9 5-14 MMOL/L Blood Urea Nitrogen 12 7-18 MG/DL Creatinine 0.78 0.60-1.30 MG/DL Estimat Glomerular Filtration Rate > 60 BUN/Creatinine Ratio 15 Glucose Level 91 70-105 MG/DL Calcium Level 9.5 8.5-10.1 MG/DL Corrected Calcium 9.4 8.5-10.1 MG/DL Total Bilirubin 0.2 0.1-1.0 MG/DL Aspartate Amino Transf (AST/SGOT) 26 5-34 U/L Alanine Aminotransferase (ALT/SGPT) 11 0-55 U/L Alkaline Phosphatase 97 40-136 U/L Total Protein 7.3 6.4-8.2 GM/DL Albumin 4.1 3.2-4.5 GM/DL My Orders Orders - KRISTYN VIGIL Knee, Right, 3 Views (03/07/18 18:12) Cbc With Automated Diff (03/07/18 18:21) Comprehensive Metabolic Panel (03/07/18 18:21) Fibrin Degradation Products (03/07/18 18:21) Fentanyl Injection (Sublimaze Injection (03/07/18 19:00) Us Venous Lower Ext Rt (03/07/18 19:40) Monitor-Rhythm Ecg Trace Only (03/07/18 19:40) Morphine Injection (Morphine Injection (03/07/18 20:00) Iv Push 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 I have informed her of normal imaging studies. Her pain is controlled at this time. I have instructed close follow up with primary care and ortho. Return precautions were given. Diagnostic Imaging Diagonstic Imaging: Xray, Ultrasound Plain Films/CT/US/NM/MRI: leg, knee Comments NAME: KARLA MURRAY MED REC#: [id number] PT STATUS: REG ER : 1955 PHYSICIAN: KRISTYN VIGIL ADMIT DATE: 03/07/18/ER Draft Date of Exam:03/07/18 KNEE, RIGHT, 3 VIEWS INDICATION: Pain. FINDINGS: There is no fracture, dislocation, or acute-appearing articular incongruity. IMPRESSION: No acute-appearing abnormality. Dictated on workstation # [id number] Dict: 03/07/18 183 Trans: 03/07/181847 [id number] Interpreted by: SUE AYALA Electronically signed by: NAME: KARLA MURRAY MED REC#: [id number] PHYSICIAN: KRISTYN VIGIL CC: KRISTYN VIGIL; SUE AYALA Page 1 of 1 RADIOLOGY REPORT VIA [place] CC: KRISTYN VIGIL; SUE AYALA Page 1 of 1 RADIOLOGY REPORT NAME: KARLA MURRAY [facility] REC#: [id number] PT STATUS: REG ER : 1955 PHYSICIAN: KRISTYN VIGIL ADMIT DATE: 03/07/18/ER Signed Date of Exam: 03/07/18 US VENOUS LOWER EXT RT PROCEDURE: US right lower extremity venous. TECHNIQUE: Multiple real-time grayscale images were obtained over the right lower extremity in various projections. Additional duplex Doppler and color Doppler images were also obtained. INDICATION: Right leg pain. The femoropopliteal deep venous system is widely patent. No deep or superficial thrombi, no fluid collection demonstrated. IMPRESSION: Normal negative unilateral right lower extremity venous Doppler and ultrasound Dictated by: Dictated on workstation # [id number] Dict: 03/07/182107 Trans: 03/07/182117 Interpreted by: SUE AYALA Electronically signed by: SUE AYALA 09/18/18 2118 Reviewed: Reviewed by Me Departure Impression Primary Impression: Sprain of knee Disposition: HOME, SELF-CARE Condition: Stable/Unchanged Departure-Patient Inst. Decision time for Depature: 20:50 Referrals: JOE BAI MD (PCP) Primary Care Physician CHRISTIAN SWENSON MD Patient Instructions: Knee Sprain (DC) Add. Discharge Instructions: Wear the Dino bandage as needed for comfort, use your crutches as needed for comfort. Take your home medications as previously prescribed. Follow-up with Dr. SWENSON within 1 week for recheck. Return back to the emergency room for any worsening symptoms or concerns as needed. All discharge instructions reviewed with patient and/or family. Voiced understanding. KRISTYN VIGIL Mar 07, 2018 19:02
[2018-03-07 19:05] LABS: BASOPHILS % (AUTO) 0 % (0-10); EOSINOPHILS # (AUTO) 0.3 10^3/uL (0.0-0.3); EOSINOPHILS % (AUTO) 3 % (0-10); HEMATOCRIT 36 % (35-52); HEMOGLOBIN 12.3 G/DL (11.5-16.0); LYMPHOCYTES # (AUTO) 4.1 X 10^3 (1.0-4.0); LYMPHOCYTES % (AUTO) 41 % (12-44); MEAN CORPUSCULAR HEMOGLOBIN 32 PG (25-34); MEAN CORPUSCULAR HGB CONC 34 G/DL (32-36); MEAN CORPUSCULAR VOLUME 92 FL (80-99); MEAN PLATELET VOLUME 9.7 FL (7.4-10.4); MONOCYTES % (AUTO) 10 % (0-12); NEUTROPHILS # (AUTO) 4.5 X 10^3 (1.8-7.8); NEUTROPHILS % (AUTO) 45 % (42-75); PLATELET COUNT 329 10^3/uL (130-400); RED CELL DISTRIBUTION WIDTH 13.7 % (10.0-14.5)
[2018-03-07 19:32] LABS: ALANINE AMINOTRANSFERASE 11 U/L (0-55); ALBUMIN 4.1 GM/DL (3.2-4.5); ALKALINE PHOSPHATASE 97 U/L (40-136); BILIRUBIN,TOTAL 0.2 MG/DL (0.1-1.0); BUN/CREATININE RATIO 15; CALCIUM 9.5 MG/DL (8.5-10.1); CARBON DIOXIDE 20 MMOL/L (21-32); CREATININE SERUM 0.78 MG/DL (0.60-1.30); GFR ESTIMATED > 60; GLUCOSE 91 MG/DL (70-105); TOTAL PROTEIN 7.3 GM/DL (6.4-8.2)
[2018-03-07 19:45] LABS: CHLORIDE 107 MMOL/L (98-107); POTASSIUM 3.6 MMOL/L (3.6-5.0); SODIUM 136 MMOL/L (135-145)
[2018-03-07] MEDS ORDERED: morphine INJ 10 MG/ML 1ML (SYR OR VIAL) IVP ONE (20:00)
--- NOTE | 2018-03-07 21:13 | Diagnostic Imaging Report ---
PROCEDURE: US right lower extremity venous. TECHNIQUE: Multiple real-time grayscale images were obtained over the right lower extremity in various projections. Additional duplex Doppler and color Doppler images were also obtained. INDICATION: Right leg pain. The femoropopliteal deep venous system is widely patent. No deep or superficial thrombi, no fluid collection demonstrated. IMPRESSION: Normal negative unilateral right lower extremity venous Doppler and ultrasound Dictated by: Dictated on workstation # [id number]
[2018-03-07 21:29] VITALS: BP 141/93
== END 2018-03-07 21:29 | disposition home or self-care (01) ==
LOC: EDUNIT# 17:39 → ER 17:40
DX: S83.91XA Sprain of unspecified site of right knee, initial encounter (principal); J45.909 Unspecified asthma, uncomplicated; G43.909 Migraine, unspecified, not intractable, without status migrainosus; K21.9 Gastro-esophageal reflux disease without esophagitis; E03.9 Hypothyroidism, unspecified; F41.9 Anxiety disorder, unspecified; F32.9 Major depressive disorder, single episode, unspecified; Z87.19 Personal history of other diseases of the digestive system; Z88.5 Allergy status to narcotic agent; Z88.0 Allergy status to penicillin; Z82.49 Family history of ischemic heart disease and other diseases of the circulatory system; Z88.6 Allergy status to analgesic agent; Z88.8 Allergy status to other drugs, medicaments and biological substances; Z79.82 Long term (current) use of aspirin; Z90.89 Acquired absence of other organs; Z98.890 Other specified postprocedural states; W19.XXXA Unspecified fall, initial encounter
CPT/HCPCS: 36415; 73562; 80053; 85025; 85379; 96374; 96375

== ENCOUNTER 2018-10-21 11:42 | Emergency (ER) | payer MEDICARE, MEDICAID ==
[~2018-10-21] VITALS: Ht 157.5 cm; Wt 102.1 kg
[2018-10-21 12:14] LABS: BASOPHILS % (AUTO) 0 % (0-10); EOSINOPHILS # (AUTO) 0.2 10^3/uL (0.0-0.3); EOSINOPHILS % (AUTO) 2 % (0-10); HEMATOCRIT 39 % (35-52); HEMOGLOBIN 12.9 G/DL (11.5-16.0); LYMPHOCYTES # (AUTO) 2.5 X 10^3 (1.0-4.0); LYMPHOCYTES % (AUTO) 25 % (12-44); MEAN CORPUSCULAR HEMOGLOBIN 31 PG (25-34); MEAN CORPUSCULAR HGB CONC 33 G/DL (32-36); MEAN CORPUSCULAR VOLUME 93 FL (80-99); MEAN PLATELET VOLUME 9.8 FL (7.4-10.4); MONOCYTES # (AUTO) 0.9 X 10^3 (0.0-1.0); MONOCYTES % (AUTO) 10 % (0-12); NEUTROPHILS # (AUTO) 6.1 X 10^3 (1.8-7.8); NEUTROPHILS % (AUTO) 63 % (42-75); PLATELET COUNT 301 10^3/uL (130-400); RED CELL DISTRIBUTION WIDTH 13.3 % (10.0-14.5); WHITE BLOOD COUNT 9.7 10^3/uL (4.3-11.0)
[2018-10-21 12:15] LABS: BILIRUBIN,URINE NEGATIVE (NEGATIVE); CLARITY,URINE CLEAR; COLOR,URINE YELLOW; GLUCOSE, URINE (UA) NEGATIVE (NEGATIVE); KETONES,URINE NEGATIVE (NEGATIVE); LEUKOCYTE ESTERASE ,URINE 3+ (NEGATIVE); NITRITE,URINE NEGATIVE (NEGATIVE); PH,URINE 7 (5-9); PROTEIN,URINE NEGATIVE (NEGATIVE); UROBILINOGEN,URINE NORMAL (NORMAL)
[2018-10-21] MEDS ORDERED: KETOROLAC 30 MG/ML VIAL IVP ONE (12:15)
[2018-10-21] MEDS ORDERED: fentaNYL INJECTION 100 MCG/2 ML AMP IVP ONE (12:15)
--- NOTE | 2018-10-21 12:17 | ED Abdominal Pain ---
General Chief Complaint: Abdominal/GI Problems Stated Complaint: ABD PAIN Nursing Triage Note: PT AMB TO [facility] WITH COMPLAINT OF RLQ PAIN. STATES RADIATES TO BACK. STATES PAIN WAS A SUDDEN ONSET. STATES LAST TIME SHE HAD THIS TYPE OF PAIN, SHE HAD A LLQ COLON ABSCESS. Sepsis Screen: No Definite Risk Source of Information: Patient Exam Limitations: No Limitations History of Present Illness Date Seen by Provider: October 21, 2018 Time Seen by Provider: 12:15 Initial Comments ER with sudden onset right lower quadrant sharp abdominal pain that began this morning while at [facility]. The pain has persisted, currently she rates it at 8 out of 10 but it intermittently is as bad as 10 out of 10. She denies nausea vomiting fevers chills diarrhea or urinary symptoms. Last week however she did have some midline low back pain which she thought was a bladder infection, she started drinking some cranberry juice and that pain went away. She did not have any urinary frequency burning or other symptoms, only the back pain. Timing/Duration: 4-6 Hours Severity/Quality: Severe, Sharp Location: RLQ Radiation: No Radiation Associated Symptoms: Back Pain Allergies and Home Medications Allergies Coded Allergies: Penicillins (Unverified Allergy, Intermediate, HIVES, 07/24/10) meperidine (Unverified Allergy, Intermediate, HIVES, 07/24/10) codeine (Unverified Allergy, Mild, PALPITATIONS, 07/24/10) baclofen (Unverified Adverse Reaction, Unknown, dizzy, nausea, 09/07/17) divalproex sodium (Unverified Adverse Reaction, Unknown, 09/07/17) metaxalone (Unverified Adverse Reaction, Unknown, "bad for me", 09/07/17) methocarbamol (Unverified Adverse Reaction, Unknown, HOSTILE/AGGRESSION, ) tizanidine (Unverified Adverse Reaction, Unknown, drowsy, 09/07/17) Home Medications Aspirin/Acetaminophen/Caffeine 1 Each Tablet, 1 TAB PO BID PRN for MIGRAINE, ( Reported) Butalbital/Aspirin/Caffeine 1 Each Capsule, 1 TAB PO DAILY PRN for MIGRAINE, ( Reported) Hydrocodone/Acetaminophen 1 Each Tablet, 1 TAB PO TID PRN for PAIN-MODERATE, ( Reported) Hydroxyzine HCl 10 Mg Tablet, 10 MG PO TID PRN for ANXIETY, (Reported) Levothyroxine Sodium 75 Mcg Tablet, 75 MCG PO DAILY, (Reported) Mag Hydrox/Al Hydrox/Simeth 30 Ml Oral.susp, 30 ML PO QID PRN for INDIGESTION, ( Reported) Orphenadrine Citrate 100 Mg Tablet.er, 100 MG PO BID, (Reported) Pantoprazole Sodium 40 Mg Tablet.dr, 40 MG PO DAILY, (Reported) Sucralfate 1 Gm Tablet, 1 GM PO TIDAC, (Reported) Tizanidine HCl 4 Mg Tablet, 4 MG PO TID PRN for MUSCLE SPASMS, (Reported) Topiramate 200 Mg Tablet, 200 MG PO BID, (Reported) Vortioxetine Hydrobromide 5 Mg Tablet, 5 MG PO DAILY, (Reported) Patient Home Medication List Home Medication List Reviewed: Yes Review of Systems Review of Systems Constitutional: see HPI; No chills, No fever EENTM: No Symptoms Reported Respiratory: No Symptoms Reported Cardiovascular: No Symptoms Reported Gastrointestinal: See HPI, Abdominal Pain; Denies Constipated, Denies Diarrhea , Denies Nausea Genitourinary: See HPI; Denies Burning, Denies Discharge, Denies Drainage, Denies Flank Pain Musculoskeletal: see HPI, back pain (last week) Skin: no symptoms reported Psychiatric/Neurological: No Symptoms Reported Endocrine: No Symptoms Reported Past Kktxozu-Thltbq-Gynrea Hx Patient Social History Alcohol Use: Denies Use Recreational Drug Use: No Smoking Status: Former Smoker Type Used: Cigarettes 2nd Hand Smoke Exposure: No Recent Foreign Travel: No Contact w/Someone Who Travel: No Recent Infectious Disease Expo: No Recent Hopitalizations: No Immunizations Up To Date PED Vaccines UTD: No Date of Pneumonia Vaccine: Apr 02, 2013 Date of Influenza Vaccine: Apr 01, 2016 Seasonal Allergies Seasonal Allergies: No Past Medical History Surgeries: Yes Abdominal, Appendectomy, Bowel Surgery, Section, Gallbladder, Neurological, Orthopedic, Tonsillectomy Respiratory: Yes Asthma Currently Using CPAP: No Currently Using BIPAP: No Cardiac: Yes (" THEY THINK IT'S FROM ANXIETY.") Angina Neurological: Yes Headaches /Migraines 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 Sexually Transmitted Disease: No HIV/AIDS: No Genitourinary: No Gastrointestinal: Yes Gastroesophageal Reflux, Chronic Constipation, Chronic Diarrhea, Ulcer, Irritable Bowel Musculoskeletal: Yes (CHRONIC NECK PAIN; RSD) Fibromyalgia, Chronic Back Pain Endocrine: Yes (HYPOGLYCEMIC) Hypothyroidsim HEENT: Yes (Vision changes in right eye, 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 ear.) Loss of Vision: Right Hearing Impairment: Deaf Cancer: No Did You Recieve Any Treatments: No Psychosocial: Yes Anxiety, Depression Integumentary: No Blood Disorders: No Adverse Reaction/Blood Tranf: No Family Medical History Congenital heart disease Diabetes mellitus G8 BROTHER, Onset:Unknown Irregular heart beat 19 FATHER, , Onset:Unknown G8 SISTER, Onset:Unknown Myocardial infarction G8 BROTHER, Onset:Unknown Heart Disease, CAD Over 55 Years Old, Diabetes Physical Exam Vital Signs Vital Signs - First Documented 10/21/18 11:45 Temp 98.0 Pulse 76 Resp 16 B/P (MAP) 153/89 (110) Pulse Ox 99 O2 Delivery Room Air Capillary Refill : Less Than 3 Seconds Height/Weight/BMI Height: 5'2.00" Weight: 225lbs. 1.0oz. 102.426620gt; 39.9 BMI Method:Stated General Appearance: WD/WN, no apparent distress HEENT: PERRL/EOMI, normal ENT inspection Respiratory: normal breath sounds, no respiratory distress, no accessory muscle use Gastrointestinal: normal bowel sounds, soft, tenderness Extremities: normal range of motion, non-tender Neurologic/Psychiatric: alert, normal mood/affect, oriented x 3 Skin: normal color, warm/dry Progress/Results/Core Measures Results/Orders Lab Results Laboratory Tests Test 10/21/18 11:55 Range/Units White Blood Count 9.7 4.3-11.0 10^3/uL Red Blood Count 4.21 L 4.35-5.85 10^6/uL Hemoglobin 12.9 11.5-16.0 G/DL Hematocrit 39 35-52 % Mean Corpuscular Volume 93 80-99 FL Mean Corpuscular Hemoglobin 31 25-34 PG Mean Corpuscular Hemoglobin Concent 33 32-36 G/DL Red Cell Distribution Width 13.3 10.0-14.5 % Platelet Count 301 130-400 10^3/uL Mean Platelet Volume 9.8 7.4-10.4 FL Neutrophils (%) (Auto) 63 42-75 % Lymphocytes (%) (Auto) 25 12-44 % Monocytes (%) (Auto) 10 0-12 % Eosinophils (%) (Auto) 2 0-10 % Basophils (%) (Auto) 0 0-10 % Neutrophils # (Auto) 6.1 1.8-7.8 X 10^3 Lymphocytes # (Auto) 2.5 1.0-4.0 X 10^3 Monocytes # (Auto) 0.9 0.0-1.0 X 10^3 Eosinophils # (Auto) 0.2 0.0-0.3 10^3/uL Basophils # (Auto) 0.0 0.0-0.1 10^3/uL Urine Color YELLOW Urine Clarity CLEAR Urine pH 7 5-9 Urine Specific [place] 1.010 L 1.016-1.022 Urine Protein NEGATIVE NEGATIVE Urine Glucose (UA) NEGATIVE NEGATIVE Urine Ketones NEGATIVE NEGATIVE Urine Nitrite NEGATIVE NEGATIVE Urine Bilirubin NEGATIVE NEGATIVE Urine Urobilinogen NORMAL NORMAL MG/DL Urine Leukocyte Esterase 3+ H NEGATIVE Urine RBC (Auto) NEGATIVE NEGATIVE Urine RBC NONE /HPF Urine WBC 25-50 H /HPF Urine Squamous Epithelial Cells 5-10 /HPF Urine Crystals NONE /LPF Urine Bacteria FEW H /HPF Urine Casts NONE /LPF Urine Mucus NEGATIVE /LPF Urine Culture Indicated YES Sodium Level 140 135-145 MMOL/L Potassium Level 3.7 3.6-5.0 MMOL/L Chloride Level 110 H 98-107 MMOL/L Carbon Dioxide Level 20 L 21-32 MMOL/L Anion Gap 10 5-14 MMOL/L Blood Urea Nitrogen 18 7-18 MG/DL Creatinine 0.83 0.60-1.30 MG/DL Estimat Glomerular Filtration Rate > 60 BUN/Creatinine Ratio 22 Glucose Level 100 70-105 MG/DL Calcium Level 9.7 8.5-10.1 MG/DL Corrected Calcium 9.6 8.5-10.1 MG/DL Total Bilirubin 0.2 0.1-1.0 MG/DL Aspartate Amino Transf (AST/SGOT) 19 5-34 U/L Alanine Aminotransferase (ALT/SGPT) 11 0-55 U/L Alkaline Phosphatase 96 40-136 U/L Total Protein 7.4 6.4-8.2 GM/DL Albumin 4.1 3.2-4.5 GM/DL My Orders Orders - GREY MCKEON TELE RN Cbc With Automated Diff (10/21/18 12:03) Comprehensive Metabolic Panel (10/21/18 12:03) Ua Culture If Indicated (10/21/18 12:03) Iv Heplock-Insert (Order) (10/21/18 12:03) Ketorolac Injection (Toradol Injection) (10/21/18 12:15) Fentanyl Injection (Sublimaze Injection (10/21/18 12:15) Ct Abd/Pelvis Wo(Kidney Stone) (10/21/18 12:13) Urine Culture (10/21/18 11:55) Medications Given in ED Current Medications Medications Dose Ordered Sig/Emily Route Start Time Stop Time Status Last Admin Dose Admin Fentanyl Citrate 50 mcg ONCE ONCE IVP 10/21/18 12:15 10/21/18 12:16 DC 10/21/18 12:23 50 MCG Ketorolac Tromethamine 15 mg ONCE ONCE IVP 10/21/18 12:15 10/21/18 12:16 DC 10/21/18 12:23 15 MG Vital Signs/I&O 10/21/18 11:45 Temp 98.0 Pulse 76 Resp 16 B/P (MAP) 153/89 (110) Pulse Ox 99 O2 Delivery Room Air Blood Pressure Mean: 110 Departure Impression Primary Impression: Urinary tract infection Qualified Codes: N30.00 - Acute cystitis without hematuria Disposition: HOME, SELF-CARE Condition: Stable Departure-Patient Inst. Decision time for Depature: 13:07 Referrals: JOE BAI MD (PCP/Family) Primary Care Physician Patient Instructions: Urinary Tract Infection, Adult (DC) Add. Discharge Instructions: 1. Pain medication as directed 2. Follow-up with your doctor next week 3. Return to ER for any worsening 4. All discharge instructions reviewed with patient and/or family. Voiced understanding. Scripts Hydrocodone/Acetaminophen ([place] 5-325 Tablet) 1 Each Tablet 1 TAB PO Q4-6HR for Pain MDD 10 TABS for 2 Days, #10 TAB Prov: GREY MCKEON TELE RN 10/21/18 Nitrofurantoin Monohyd/M-Cryst (Macrobid 100 mg Capsule) 100 Mg Capsule 1 TAB PO BID, #14 CAP Prov: GREY MCKEON TELE RN 10/21/18 GREY MCKEON TELE RN October 21, 2018 12:17
[2018-10-21 12:22] LABS: BACTERIA,URINE FEW /HPF; WBC,URINE 25-50 /HPF
[2018-10-21 12:27] LABS: ALANINE AMINOTRANSFERASE 11 U/L (0-55); ALBUMIN 4.1 GM/DL (3.2-4.5); ALKALINE PHOSPHATASE 96 U/L (40-136); BILIRUBIN,TOTAL 0.2 MG/DL (0.1-1.0); BUN/CREATININE RATIO 22; CALCIUM 9.7 MG/DL (8.5-10.1); CARBON DIOXIDE 20 MMOL/L (21-32); CHLORIDE 110 MMOL/L (98-107); CREATININE SERUM 0.83 MG/DL (0.60-1.30); GFR ESTIMATED > 60; GLUCOSE 100 MG/DL (70-105); POTASSIUM 3.7 MMOL/L (3.6-5.0); SODIUM 140 MMOL/L (135-145); TOTAL PROTEIN 7.4 GM/DL (6.4-8.2)
--- NOTE | 2018-10-21 13:05 | Diagnostic Imaging Report ---
PROCEDURE: CT urinary tract, rule out kidney stone. TECHNIQUE: Multiple contiguous axial images were obtained through the abdomen and pelvis without the use of intravenous contrast. Auto Exposure Controls were utilized during the CT exam to meet ALARA standards for radiation dose reduction. INDICATION: Right lower quadrant pain radiating to the back. COMPARISON: 09/21/2017. FINDINGS: The lung bases are clear. The heart is normal in size. There is no pericardial effusion. There is a very small hypodense focus in the left liver which is too small to characterize. Cholecystectomy clips are noted. There is no biliary dilatation. The spleen appears normal. The pancreas is normal. The adrenal glands appear normal. The kidneys are unremarkable. There is no hydronephrosis. No obstructive renal calculi are seen. The appendix is not seen, and appears to have been resected. There is diverticulosis in the colon without diverticulitis seen. No lymphadenopathy is seen. There is calcific atherosclerosis. There is moderate stool in the ascending colon. No acute osseous abnormality is seen. IMPRESSION: 1. Colonic diverticulosis without diverticulitis. There is moderate stool in the ascending colon. 2. The appendix is not seen and appears to be removed. 3. No hydronephrosis or obstructing renal calculi. Dictated by: Dictated on workstation # [id number]
[2018-10-21] MEDS ORDERED: HYDR-4226 PO (13:08)
[2018-10-21] MEDS ORDERED: NITR-65 PO (13:08)
[2018-10-21] MEDS ORDERED: cefTRIAXone FOR IV USE 1,000 MG in WATER (STERILE) FOR INJECTION 10 ML IV ONE (13:15)
[2018-10-21 13:27] VITALS: BP 126/74
== END 2018-10-21 13:30 | disposition home or self-care (01) ==
LOC: EDUNIT# 11:42 → ER 11:43
DX: N39.0 Urinary tract infection, site not specified (principal); J45.909 Unspecified asthma, uncomplicated; G43.909 Migraine, unspecified, not intractable, without status migrainosus; K21.9 Gastro-esophageal reflux disease without esophagitis; K58.9 Irritable bowel syndrome, unspecified; M79.7 Fibromyalgia; E03.9 Hypothyroidism, unspecified; F41.9 Anxiety disorder, unspecified; F32.9 Major depressive disorder, single episode, unspecified; Z87.19 Personal history of other diseases of the digestive system; Z88.0 Allergy status to penicillin; Z82.49 Family history of ischemic heart disease and other diseases of the circulatory system; Z88.8 Allergy status to other drugs, medicaments and biological substances; Z88.5 Allergy status to narcotic agent; Z88.6 Allergy status to analgesic agent; Z79.82 Long term (current) use of aspirin; Z87.891 Personal history of nicotine dependence; Z90.49 Acquired absence of other specified parts of digestive tract; Z98.890 Other specified postprocedural states; Z90.89 Acquired absence of other organs
CPT/HCPCS: 36415; 74176; 80053; 81000; 85025; 87088

== ENCOUNTER 2018-11-16 10:06 | Emergency (ER) | payer MEDICARE, MEDICAID ==
[~2018-11-16] VITALS: Ht 154.9 cm; Wt 102.1 kg
[~2018-11-16 10:06] MED LIST changes: +HYDR-4226 PO; +NITR-65 PO
--- NOTE | 2018-11-16 10:26 | ED Lower Extremity ---
General Chief Complaint: Lower Extremity Stated Complaint: LEG SWELLING Source: patient Exam Limitations: no limitations History of Present Illness Date Seen by Provider: November 16, 2018 Time Seen by Provider: 10:08 Initial Comments Patient presents to ER walking in with chief complaint that she had a knee scope February, 9 months ago and since then she's had some minor swelling in her right lower extremity. He said today though her right foot was turning blue and had some increased discomfort as well as swelling compared to the left leg. She called her orthopedic surgeon and they told her to come to the ER to be checked out. She did not see her primary care doctor for this. She does not take diuretics. She does not take NSAIDs. She's having some increased discomfort in her hip when she walks and has a history of arthritis. She also has sympathetic reflex dystrophy as well as fibromyalgia. She uses hydrocodone. She says the hydrocodone has not helped her pain today. She has no history of clots but she said her mother had multiple DVTs. Allergies and Home Medications Allergies Coded Allergies: Penicillins (Unverified Allergy, Intermediate, HIVES, 07/24/10) meperidine (Unverified Allergy, Intermediate, HIVES, 07/24/10) codeine (Unverified Allergy, Mild, PALPITATIONS, 07/24/10) baclofen (Unverified Adverse Reaction, Unknown, dizzy, nausea, 09/07/17) divalproex sodium (Unverified Adverse Reaction, Unknown, 09/07/17) metaxalone (Unverified Adverse Reaction, Unknown, "bad for me", 09/07/17) methocarbamol (Unverified Adverse Reaction, Unknown, HOSTILE/AGGRESSION, 07/02/16) tizanidine (Unverified Adverse Reaction, Unknown, drowsy, 09/07/17) Home Medications Aspirin/Acetaminophen/Caffeine 1 Each Tablet, 1 TAB PO BID PRN for MIGRAINE, (Reported) Butalbital/Aspirin/Caffeine 1 Each Capsule, 1 TAB PO DAILY PRN for MIGRAINE, (Reported) Hydrocodone/Acetaminophen 1 Each Tablet, 1 TAB PO TID PRN for PAIN-MODERATE, (Reported) Hydrocodone/Acetaminophen 1 Each Tablet, 1 TAB PO Q4-6HR Prescribed by: GREY MCKEON on 10/21/18 1308 Hydroxyzine HCl 10 Mg Tablet, 10 MG PO TID PRN for ANXIETY, (Reported) Levothyroxine Sodium 75 Mcg Tablet, 75 MCG PO DAILY, (Reported) Mag Hydrox/Al Hydrox/Simeth 30 Ml Oral.susp, 30 ML PO QID PRN for INDIGESTION, (Reported) Nitrofurantoin Monohyd/M-Cryst 100 Mg Capsule, 1 TAB PO BID Prescribed by: GREY MCKEON on 10/21/18 1308 Orphenadrine Citrate 100 Mg Tablet.er, 100 MG PO BID, (Reported) Pantoprazole Sodium 40 Mg Tablet.dr, 40 MG PO DAILY, (Reported) Sucralfate 1 Gm Tablet, 1 GM PO TIDAC, (Reported) Tizanidine HCl 4 Mg Tablet, 4 MG PO TID PRN for MUSCLE SPASMS, (Reported) Topiramate 200 Mg Tablet, 200 MG PO BID, (Reported) Vortioxetine Hydrobromide 5 Mg Tablet, 5 MG PO DAILY, (Reported) Patient Home Medication List Home Medication List Reviewed: Yes Review of Systems Constitutional: No chills, No diaphoresis EENTM: No ear discharge, No hearing loss Respiratory: No cough, No short of breath Cardiovascular: No chest pain, No edema Gastrointestinal: No abdominal pain, No nausea Past Nqartwl-Gsbkjz-Huorsz Hx Patient Social History Alcohol Use: Denies Use Recreational Drug Use: No Smoking Status: Former Smoker Type Used: Cigarettes 2nd Hand Smoke Exposure: No Recent Foreign Travel: No Contact w/Someone Who Travel: No Recent Hopitalizations: No Immunizations Up To Date PED Vaccines UTD: No Date of Pneumonia Vaccine: Apr 02, 2013 Date of Influenza Vaccine: Apr 01, 2016 Seasonal Allergies Seasonal Allergies: No Past Medical History Surgeries: Yes Abdominal, Appendectomy, Bowel Surgery, Section, Gallbladder, Neurological, Orthopedic, Tonsillectomy Respiratory: Yes Asthma Currently Using CPAP: No Currently Using BIPAP: No Cardiac: Yes (" THEY THINK IT'S FROM ANXIETY.") Angina Neurological: Yes Headaches /Migraines Female Reproductive Disorders: Denies 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 Sexually Transmitted Disease: No HIV/AIDS: No Genitourinary: No Gastrointestinal: Yes Gastroesophageal Reflux, Chronic Constipation, Chronic Diarrhea, Ulcer, Irritable Bowel Musculoskeletal: Yes (CHRONIC NECK PAIN; RSD) Fibromyalgia, Chronic Back Pain Endocrine: Yes (HYPOGLYCEMIC) Hypothyroidsim HEENT: Yes (Vision changes in right eye, 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 ear.) Loss of Vision: Right Hearing Impairment: Deaf Cancer: No Did You Recieve Any Treatments: No Psychosocial: Yes Anxiety, Depression Integumentary: No Blood Disorders: No Adverse Reaction/Blood Tranf: No Family Medical History Congenital heart disease Diabetes mellitus G8 BROTHER, Onset:Unknown Irregular heart beat 19 FATHER, , Onset:Unknown G8 SISTER, Onset:Unknown Myocardial infarction G8 BROTHER, Onset:Unknown Heart Disease, CAD Over 55 Years Old, Diabetes Physical Exam Vital Signs Vital Signs - First Documented 11/16/18 10:08 Temp 98.0 Pulse 83 Resp 18 B/P (MAP) 163/88 (113) Pulse Ox 96 O2 Delivery Room Air Capillary Refill : Height, Weight, BMI Height: 5'2.00" Weight: 225lbs. 1.0oz. 102.130599pg; 39.9 BMI Method:Stated General Appearance: WD/WN, no apparent distress HEENT: normal ENT inspection, pharynx normal Neck: full range of motion, normal inspection Cardiovascular: normal peripheral pulses, regular rate, rhythm Respiratory: normal breath sounds, no respiratory distress, no accessory muscle use Hips: bilateral hip non-tender, bilateral hip normal inspection, bilateral hip normal range of motion, bilateral hip no evidence of injury Legs: bilateral leg non-tender; left leg normal inspection; bilateral leg normal range of motion, bilateral leg no evidence of injury, bilateral leg abrasions; right leg swelling (1+ edema, warm nonerythematous without Tenderness or Homans sign.) Knees: left knee non-tender; bilateral knee normal inspection, bilateral knee normal range of motion, bilateral knee no evidence of injury; right knee bone tenderness Progress/Results/Core Measures Results/Orders My Orders Orders - SANDRO DE LA ROSA Venous Lower Ext Rt (11/16/18 10:18) Ketorolac Injection (Toradol Injection) (11/16/18 10:30) Medications Given in ED Current Medications Medications Dose Ordered Sig/Emily Route Start Time Stop Time Status Last Admin Dose Admin Ketorolac Tromethamine 60 mg ONCE ONCE IM 11/16/18 10:30 11/16/18 10:31 DC 11/16/18 10:31 60 MG Vital Signs/I&O 11/16/18 10:08 Temp 98.0 Pulse 83 Resp 18 B/P (MAP) 163/88 (113) Pulse Ox 96 O2 Delivery Room Air Progress Progress Note : Time: 10:25 Progress Note Patient does not have a lot of risk factors but is insistent that she is worried about clots since her mother had them. There is no ecchymoses, pallor, blue or other change noted to her lower extremity. She does have significant swelling right compared to left. We'll obtain an ultrasound duplex venogram. Diagnostic Imaging Diagonstic Imaging: Ultrasound Plain Films/CT/US/NM/MRI: leg (duplex venous right) Comments Negative for DVT. Reviewed: Reviewed by Me Departure Impression Primary Impression: Osteoarthritis of right hip Qualified Codes: M16.11 - Unilateral primary osteoarthritis, right hip Additional Impression: Leg edema, right Disposition: 01 HOME, SELF-CARE Condition: Stable Departure-Patient Inst. Decision time for Depature: 10:55 Referrals: JOE BAI MD (PCP/Family) Primary Care Physician Patient Instructions: Osteoarthritis Add. Discharge Instructions: While there does not appear to be anything emergently wrong with your leg or swelling concerning and probably related to arthritis or other degenerative processes in the hip or knee. I would suggest that you follow up with her [facility] doctor for further evaluation and management. You may add Tylenol 650 mg every 8 hours as necessary for breakthrough pain. Heating pads, icy hot, Biofreeze or SalonPas can be useful. Please return to the nearest ER if you experience chest pain shortness of breath or other worrisome symptoms. All discharge instructions reviewed with patient and/or family. Voiced understnas hernandez. SANDRO DE LA ROSA November 16, 2018 10:26
[2018-11-16] MEDS ORDERED: KETOROLAC 30 MG/ML VIAL IM ONE (10:30)
--- NOTE | 2018-11-16 11:13 | Diagnostic Imaging Report ---
PROCEDURE: US right lower extremity venous. TECHNIQUE: Multiple real-time grayscale images were obtained over the right lower extremity in various projections. Additional spectral analysis and color Doppler duplex images were also obtained. INDICATION: Right leg swelling EXAMINATION: Grayscale and color Doppler evaluation of the deep veins of the right lower extremity were performed with waveform analysis. FINDINGS: Continuous venous flow is present. No intraluminal filling defect is identified. There is normal compressibility and response to augmentation. No abnormal perivascular fluid collection is identified. IMPRESSION: No ultrasound evidence of right lower extremity deep venous thrombosis. Dictated by: Dictated on workstation # [id number]
[2018-11-16 11:16] VITALS: BP 163/88
--- OUTSIDE RECORDS SUMMARY | 2018-11-16 12:58 | XMS REPORT | Clinical Summary ---
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 Disp. Refills Start End Date Status Date [id number]-owf as needed. 1 0 03/16/20 Active feine (EXCEDRIN MIGRAINE) 12 250-250-65 mg per tablet sennosides (LAXATIVE) 15 take 2 tablet (30MG) by 1 03/16/20 Active mg Tab oral route every day 12 cyanocobalamin (VITAMIN Take 1 daily. 1 03/16/20 Active B-12) 2000 MCG tablet 12 divalproex (DEPAK[address] DR) take 1 tablet (250MG) by 1 03/16/20 Active 250 MG delayed-release oral route 2 times every 12 tablet day pregabalin (LYRICA) 100 take 1 capsule (100MG) 1 03/16/20 Active MG capsule by oral route 3 times 12 every day levothyroxine (SYNTHROID) take 1 tablet (75MCG) by 1 03/16/20 Active 75 MCG tablet oral route every day 12 venlafaxine (EFFEXOR XR) take 3 capsule by oral 1 03/16/20 Active 75 MG ER 24 hr capsule route every day with 12 food orphenadrine (NORFLEX) 30 inject 2 milliliter 1 03/16/20 Active mg/mL injection (60MG) by intramuscular 12 route every 12 hours as needed ALPRAZolam (XANAX) 0.5 MG take 1 tablet (0.5MG) by 1 03/16/20 Active tablet oral route 3 times every 12 day HYDROcodone-acetaminophen take 1 tablet by oral 1 03/16/20 Active (VICODIN ES) 7.5-750 mg route every 4 - 6 hours 12 per tablet as needed for pain not to exceed 5 tablets in 24hrs Active Problems Not on file Family History Medical History Relation Name Comments Other Brother Diagnosed with HI, at age 48. Other Brother Diagnosed with HI,Stent,diagnosed in his 50s Other Father Diagnosed with CAD, at age 70 from cancer. Other Mother Diagnosed with CAD,CHF, at age 82. Relation Name Status Comments Brother Brother Father Mother Social History Tobacco Use Types Packs/Day Years Used Date Never Assessed Sex Assigned at Date Recorded Not on file Last Filed Vital Signs Vital Sign Reading Time Taken Blood Pressure 104/80 03/16/2012 9:45 AM CDT Pulse 64 03/16/2012 9:45 AM CDT Temperature - - Respiratory Rate - - Oxygen Saturation - - Inhaled Oxygen - - Concentration Weight 94.3 kg (208 lb) 03/16/2012 9:45 AM CDT Height 157.5 cm (5' 2") 03/16/2012 9:45 AM CDT Body Mass Index 38.04 03/16/2012 9:45 AM CDT Plan of Treatment Not on file Results Not on filefrom Last 3 Months
--- OUTSIDE RECORDS SUMMARY | 2018-11-16 12:59 | XMS REPORT ---
Author Author FRANK CHAPMAN Organization [facility] Address [address] [place] [address] Care Team Providers Care Software Lead Name Role Phone ADELA FRANK Unavailable PROBLEMS Type Condition ICD9-CM Code CVV45-UV Code Onset Dates Condition Status SNOMED Code Problem Reflex sympathetic dystrophy G90.50 Active 49033359 Problem Hypothyroidism, unspecified type E03.9 Active 21347792 Problem Right elbow pain M25.521 Active 07564348 Problem Fibromyalgia M79.7 Active 125026272 Problem Venous insufficiency I87.2 Active 50166388 Problem Right wrist pain M25.531 Active 92391339 Problem Gastroesophageal reflux disease, esophagitis presence not specified K21.9 Active 075519679 Problem Plantar wart of right foot B07.0 Active 40809030 Problem Rosacea L71.9 Active 680382279 Problem Internal derangement of right knee M23.91 Active 522010640394858 Problem Reactive depression F32.9 Active 99392043 Problem Age-related osteoporosis without current pathological fracture M81.0 Active 59590725 Problem Arthritis M19.90 Active 6697588 Problem Mixed hyperlipidemia E78.2 Active 480796482 Problem Generalized anxiety disorder F41.1 Active 66456878 Problem Mild episode of recurrent major depressive disorder F33.0 Active 235805882 Problem Abnormal laboratory test R89.9 Active [id number] ALLERGIES No Information ENCOUNTERS Encounter Location Date Diagnosis [facility] [id number] [address] Sep, [facility] [address] [address] Sep, [facility] [address] [address] Sep, [facility] [id number] [place] [address] Sep, [facility] [address] [address] Aug, [place] [id number] [place] [address] Aug, Class 1 obesity due to excess calories in adult, unspecified BMI, unspecified whether serious comorbidity present E66.09 [place] [id number] [place] [address] Aug, Generalized anxiety disorder F41.1 and Mild episode of recurrent major depressive disorder F33.0 [place] [id number] [place] [address] Aug, Generalized anxiety disorder F41.1 and Mild episode of recurrent major depressive disorder F33.0 [place] [id number] [place] [address] Jul, Fibromyalgia M79.7 [place] [id number] [place] [address] Jul, Generalized anxiety disorder F41.1 and Mild episode of recurrent major depressive disorder F33.0 [place] [id number] [place] [address] Jul, [place] [address] [address] Jul, Fatigue R53.83 and BMI 40.0-44.9, adult Z68.41 [place] [address] [address] Jul, Generalized anxiety disorder F41.1 and Mild episode of recurrent major depressive disorder F33.0 [place] [address] [address] Jun, Fibromyalgia M79.7 [facility] [address], [place] [address] Jun, Generalized anxiety disorder F41.1 and Mild episode of recurrent major depressive disorder F33.0 [facility] [address] [facility] [id number] [address] Jun, [facility] [id number] [place] [address] Jun, Generalized anxiety disorder F41.1 and Mild episode of recurrent major depressive disorder F33.0 [facility] [id number] [place] [id number] Jun, [facility] [address] [place] [address] Jun, Fibromyalgia M79.7 [facility] [address] [place] [address] May, Generalized anxiety disorder F41.1 and Mild episode of recurrent major depressive disorder F33.0 [facility] [address] [place] [address] May, Generalized anxiety disorder F41.1 and Mild episode of recurrent major depressive disorder F33.0 [facility] [address] [place] [address] May, Fibromyalgia M79.7 [facility] [id number], [place] [address] May, Generalized anxiety disorder F41.1 and Mild episode of recurrent major depressive disorder F33.0 [facility] [address], [place] [address] Apr, Fibromyalgia M79.7 [facility] [id number], [place] [address] Apr, [facility] [id number] [place] [address] Apr, [facility] [id number], [place] [address] Apr, Generalized anxiety disorder F41.1 and Mild episode of recurrent major depressive disorder F33.0 [facility] [address], [place] [address] Apr, Generalized anxiety disorder F41.1 and Mild episode of recurrent major depressive disorder F33.0 [facility] [address] [address] Apr, Fibromyalgia M79.7 [facility] [id number] [place] [address] 05 Apr, 2018 Generalized anxiety disorder F41.1 and Mild episode of recurrent major depressive disorder F33.0 [facility] [id number] [place] [address] Mar, [facility] [id number] [place] [address] Mar, Age-related osteoporosis without current pathological fracture M81.0 ; Encounter for immunization Z23 and BMI 40.0-44.9, adult Z68.41 [facility] [address] [place] [address] Mar, Generalized anxiety disorder F41.1 and Mild episode of recurrent major depressive disorder F33.0 [facility] [address], [place] [address] Mar, Fibromyalgia M79.7 [facility] [id number] [place] [address] 08 Mar, 2018 Generalized anxiety disorder F41.1 and Mild episode of recurrent major depressive disorder F33.0 [facility] [address], [place] [address] 24 Feb, 2018 Generalized anxiety disorder F41.1 and Mild episode of recurrent major depressive disorder F33.0 [facility] [address], [place] [address] 13 Feb, 2018 Fibromyalgia M79.7 [facility] [id number] [place] [address] Feb, Generalized anxiety disorder F41.1 and Mild episode of recurrent major depressive disorder F33.0 [place] [id number] [place] [address] Feb, [place] [id number] [place] [address] Feb, Bronchospasm J98.01 and Arthritis M19.90 [place] [id number] [place] [address] Jan, Medicare annual wellness visit, initial Z00.00 ; Reactive depression F32.9 ; Reflex sympathetic dystrophy G90.50 ; Fibromyalgia M79.7 ; BMI 40.0- 44.9, adult Z68.41 ; Hypothyroidism, unspecified type E03.9 ; Gastroesophageal reflux disease, esophagitis presence not specified K21.9 ; Family history of osteoporosis Z82.62 ; Venous insufficiency I87.2 ; Arthritis M19.90 ; Mixed hyperlipidemia E78.2 and Generalized anxiety disorder F41.1 [place] [id number] [place] [address] Jan, Generalized anxiety disorder F41.1 and Mild episode of recurrent major depressive disorder F33.0 [place] [id number] [place] [address] Jan, Mild episode of recurrent major depressive disorder F33.0 and Generalized anxiety disorder F41.1 [place] [id number] [place] [address] Jan, Fibromyalgia M79.7 [place] [id number] [place] [address] Jan, Bronchospasm J98.01 [place] [id number] [place] [address] Jan, [place] [id number] [place] [address] Jan, Generalized anxiety disorder F41.1 and Mild episode of recurrent major depressive disorder F33.0 [place] [id number] [place] [address] Jan, Bronchitis J40 [facility] [id number] [place] [address] Dec, Mild episode of recurrent major depressive disorder F33.0 [facility] [id number] [place] [address] Dec, Generalized anxiety disorder F41.1 and Mild episode of recurrent major depressive disorder F33.0 [facility] [id number] [place] [address] Dec, Fibromyalgia M79.7 ; Arthritis M19.90 and Generalized anxiety disorder F41.1 [place] [id number] [place] [address] Dec, Mild episode of recurrent major depressive disorder F33.0 and Generalized anxiety disorder F41.1 [place] [id number] [place] [address] Dec, Fibromyalgia M79.7 [facility] [id number] [place] [address] Dec, Bronchitis J40 and Internal derangement of right knee M23.91 [facility] [id number] [place] [address] Dec, Cough R05 [facility] [id number] [place] [address] Dec, Generalized anxiety disorder F41.1 and Mild episode of recurrent major depressive disorder F33.0 [facility] [id number] [place] [address] Dec, [facility] [id number] [place] [address] Dec, [facility] [id number] [place] [address] Dec, Mild episode of recurrent major depressive disorder F33.0 and Generalized anxiety disorder F41.1 [facility] [address], [place] [address] 30 Nov, 2017 [facility] [address], [place] [address] Nov, [facility] [address], [place] [address] Nov, [facility] [id number] [place] [address] Nov, Internal derangement of right knee M23.91 [facility] [id number] [place] [address] Nov, Generalized anxiety disorder F41.1 and Mild episode of recurrent major depressive disorder F33.0 [facility] [address], [place] [address] Nov, Internal derangement of right knee M23.91 [facility] [address], [place] [address] 19 Nov, 2017 Acute right ankle pain M25.571 ; Acute pain of right knee M25.561 ; Acute left-sided low back pain without sciatica M54.5 and Right leg pain M79.604 [facility] [address], [place] [address] 15 Nov, 2017 [facility] [address], [place] [address] 14 Nov, 2017 Fibromyalgia M79.7 [facility] [id number], [place] [address] 13 Nov, 2017 Generalized anxiety disorder F41.1 and Mild episode of recurrent major depressive disorder F33.0 [facility] [address], [place] [address] Nov, [facility] [address], [place] [address] October, Generalized anxiety disorder F41.1 and Mild episode of recurrent major depressive disorder F33.0 [facility] [id number] [place] [address] October, Fibromyalgia M79.7 [facility] [id number] [place] [address] October, [facility] [address] [address] October, Generalized anxiety disorder F41.1 and Mild episode of recurrent major depressive disorder F33.0 [facility] [id number] [place] [address] October, [facility] [id number] [place] [address] Sep, Gastroesophageal reflux disease, esophagitis presence not specified K21.9 and Abnormal laboratory test R89.9 [facility] [id number] [place] [address] Sep, Fibromyalgia M79.7 [facility] [id number] [place] [address] Sep, Generalized anxiety disorder F41.1 and Mild episode of recurrent major depressive disorder F33.0 [facility] [id number] [place] [address] Sep, Epigastric pain R10.13 [facility] [id number] [place] [address] Sep, Mild episode of recurrent major depressive disorder F33.0 and Generalized anxiety disorder F41.1 [facility] [id number] [place] [address] Sep, Abnormal laboratory test R89.9 [facility] [id number] [place] [address] Sep, Generalized anxiety disorder F41.1 and Mild episode of recurrent major depressive disorder F33.0 [place] [id number] [place] [address] 29 Aug, 2017 Epigastric pain R10.13 and Encounter for therapeutic drug level monitoring Z51.81 [facility] [id number] [place] [address] 28 Aug, 2017 Epigastric pain R10.13 and Gastro-esophageal reflux disease without esophagitis K21.9 [facility] [address] [address] Aug, [place] [address] [address] Aug, Epigastric pain R10.13 [place] [address] [address] Aug, Fibromyalgia M79.7 [address] [address] [address] Aug, [place] [id number] [place] [address] 14 Aug, 2017 Generalized anxiety disorder F41.1 and Mild episode of recurrent major depressive disorder F33.0 [place] [id number] [place] [address] 08 Aug, 2017 Epigastric pain R10.13 ; Reflex sympathetic dystrophy G90.50 and Arthritis M19.90 [place] [id number] [place] [address] Jul, Generalized anxiety disorder F41.1 and Mild episode of recurrent major depressive disorder F33.0 [place] [address] [address] Jul, BMI 40.0-44.9, adult Z68.41 ; Mild episode of recurrent major depressive disorder F33.0 and Generalized anxiety disorder F41.1 [place] [id number] [place] [address] Jul, Fibromyalgia M79.7 [facility] [address] [place] [address] Jun, Mild episode of recurrent major depressive disorder F33.0 and Generalized anxiety disorder F41.1 [facility] [id number] [place] [address] Jun, Fibromyalgia M79.7 [facility] [id number] [place] [address] Jun, Generalized anxiety disorder F41.1 and Mild episode of recurrent major depressive disorder F33.0 [facility] [id number] [place] [address] Jun, Generalized anxiety disorder F41.1 and Mild episode of recurrent major depressive disorder F33.0 [facility] [id number] [place] [address] Jun, Generalized anxiety disorder F41.1 and Mild episode of recurrent major depressive disorder F33.0 [facility] [id number] [place] [address] Jun, [facility] [id number] [place] [address] Jun, Generalized anxiety disorder F41.1 and Mild episode of recurrent major depressive disorder F33.0 [facility] [id number] [place] [address] May, Fibromyalgia M79.7 [facility] [id number] [place] [address] May, Generalized anxiety disorder F41.1 and Mild episode of recurrent major depressive disorder F33.0 [facility] [id number] [place] [address] May, Mixed hyperlipidemia E78.2 ; Arthritis M19.90 ; Reactive depression F32.9 and Hypothyroidism, unspecified type E03.9 [facility] [id number] [place] [address] May, Arthritis M19.90 ; Reactive depression F32.9 ; Mixed hyperlipidemia E78.2 and Hypothyroidism, unspecified type E03.9 [facility] [address] [address] Apr, Fibromyalgia M79.7 [facility] [address] [address] Apr, [facility] [address] [address] Apr, Fibromyalgia M79.7 [facility] [address] [address] Mar, Fibromyalgia M79.7 [facility] [address] [address] Mar, [facility] [address] [address] Mar, Fibromyalgia M79.7 [facility] [address] [address] Mar, [facility] [address] [address] Feb, Reflex sympathetic dystrophy G90.50 ; Right arm pain M79.601 and Fibromyalgia M79.7 [facility] [id number] [place] [address] Feb, [facility] [address] [address] Feb, Anxiety F41.9 [facility] [address] [address] Feb, Fibromyalgia M79.7 [facility] [id number] [place] [address] Feb, [facility] [address] [address] Feb, [facility] [id number] [place] [address] Jan, Temporal headache R51 [facility] [id number] [place] [address] Jan, Fibromyalgia M79.7 [facility] [id number] [place] [address] Dec, Fibromyalgia M79.7 [facility] [id number] [place] [address] Nov, Peroneal tendonitis, unspecified laterality M76.70 and Plantar fasciitis, bilateral M72.2 [place] [id number] [place] [address] Nov, Fibromyalgia M79.7 [facility] [id number] [place] [address] October, Fibromyalgia M79.7 [facility] [id number] [place] [address] October, Plantar fasciitis, bilateral M72.2 and Peroneal tendonitis, unspecified laterality M76.70 [facility] [id number] [place] [address] October, Fibromyalgia M79.7 [facility] [id number] [place] [address] Sep, Anxiety F41.9 [place] [id number] [place] [address] Aug, Anxiety F41.9 and Adjustment disorder with anxiety F43.22 [place] [id number] [place] [address] Aug, Pain of left foot M79.672 [facility] [id number] [place] [address] Aug, Pain of left foot M79.672 and Pain in right foot M79.671 [place] [address] [address] Aug, Arthritis M19.90 ; Reactive depression F32.9 ; Fibromyalgia M79.7 ; Rosacea L71.9 ; Pain in right foot M79.671 and Pain of left foot M79.672 [place] [address] [address] Aug, Anxiety F41.9 ; Adjustment disorder with anxiety F43.22 and Reactive depression F32.9 [place] [address] [address] Aug, Right elbow pain M25.521 [place] [address] [address] Aug, Plantar wart of right foot B07.0 and Actinic keratosis L57.0 [place] [address] [address] Aug, Fibromyalgia M79.7 [place] [address] [address] Jul, Arthritis M19.90 ; Hypothyroidism, unspecified type E03.9 ; Reactive depression F32.9 and Venous insufficiency I87.2 [place] [address] [address] Jul, Gastroesophageal reflux disease, esophagitis presence not specified K21.9 [place] [address] [address] Jul, Reflex sympathetic dystrophy G90.50 [place] [address] [address] Jul, Anxiety F41.9 ; Adjustment disorder with anxiety F43.22 and Reactive depression F32.9 [place] [address] [address] Jul, [facility] [id number] [place] [address] Jul, Right elbow pain M25.521 [facility] [address] [address] Jun, Fibromyalgia M79.7 [facility] [address] [address] Jun, Anxiety F41.9 ; Adjustment disorder with anxiety F43.22 and Reactive depression F32.9 [place] [address] [address] Jun, [place] [address] [address] Jun, Atypical chest pain R07.89 and Adjustment disorder with anxiety F43.22 [facility] [address] [id number] Jun, Chest pain, unspecified type R07.9 [place] [address] [address] Jun, Fibromyalgia M79.7 [facility] [address] [address] May, Anxiety F41.9 [facility] [address] [address] 14 May, 2016 [facility] [address] [address] May, Right elbow pain M25.521 [facility] [address] [address] Apr, Reflex sympathetic dystrophy G90.50 and Encounter for immunization Z23 [facility] [address] [address] 07 Apr, 2016 [facility] [address] [address] Mar, [facility] [id number] [address] Feb, [facility] [address] [place] [id number] [place] [address] Feb, [facility] [address] [place] [id number] [place] [address] Jan, [facility] [address] [place] [id number] [place] [address] Jan, Right elbow pain M25.521 and Right wrist pain M25.531 [facility] [address] [place] [id number] [place] [address] Jan, [facility] [address] [place] [id number] [place] [address] Dec, Seborrheic keratoses L82.1 [facility] [id number] [place] [id number] Dec, [facility] [id number] [place] [phone] Dec, [facility] [id number] [place] [id number] Dec, [facility] [id number] [place] [id number] Dec, Fibromyalgia M79.7 and Hypothyroidism, unspecified type E03.9 [facility] [id number] [place] [id number] Dec, Seborrheic keratoses L82.1 [facility] [id number] [place] [id number] Dec, [facility] [id number] [place] [phone] Dec, [facility] [id number] [place] [id number] Nov, Sebaceous cyst L72.3 [facility] [address] [facility] [id number] [place] [address] October, Breast cancer screening Z12.39 [facility] [address] [facility] [id number] [address] October, Fibromyalgia M79.7 ; Hypothyroidism, unspecified type E03.9 and Reflex sympathetic dystrophy G90.50 [facility] [address] [facility] [id number], [place] [address] October, Reflex sympathetic dystrophy G90.50 ; Fibromyalgia M79.7 and Hypothyroidism, unspecified type E03.9 IMMUNIZATIONS No Known Immunizations SOCIAL HISTORY Never Assessed REASON FOR VISIT f/u PLAN OF CARE Activity Details Follow Up Next available Reason:anxiety & depression VITAL SIGNS MEDICATIONS Unknown Medications RESULTS No Results PROCEDURES Procedure Date Ordered Result Body Site Psychotherapy, patient and family, 45 minutes, established patient August 21, 2018 [facility] VISIT MENTAL HEALTH ESTAB PT August 21, 2018 INSTRUCTIONS MEDICATIONS ADMINISTERED No Known Medications [...]
--- OUTSIDE RECORDS SUMMARY | 2018-11-16 12:59 | XMS REPORT ---
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 Name Role Phone FRANK CHAPMAN Unavailable PROBLEMS Type Condition ICD9-CM Code PKV58-PR Code Onset Dates Condition Status SNOMED Code Problem Gastroesophageal reflux disease, esophagitis presence not specified K21.9 Active 879269064 Problem Rosacea L71.9 Active 209731736 Problem Plantar wart of right foot B07.0 Active 73968712 Problem Age-related osteoporosis without current pathological fracture M81.0 Active 85307576 Problem Internal derangement of right knee M23.91 Active 189747417090995 Problem Generalized anxiety disorder F41.1 Active 64581008 Problem Mixed hyperlipidemia E78.2 Active 264528271 Problem Abnormal laboratory test R89.9 Active 216806954 Problem Mild episode of recurrent major depressive disorder F33.0 Active 857799890 Problem Hypothyroidism, unspecified type E03.9 Active 49775085 Problem Reflex sympathetic dystrophy G90.50 Active 28810250 Problem Right wrist pain M25.531 Active 31462964 Problem Venous insufficiency I87.2 Active 29299991 Problem Fibromyalgia M79.7 Active 302895132 Problem Arthritis M19.90 Active 1978922 Problem Right elbow pain M25.521 Active 62715897 Problem Reactive depression F32.9 Active [id number] ALLERGIES No Information ENCOUNTERS Encounter Location Date Diagnosis [facility] [address] [facility] [id number] [address] Aug, [facility] [address], [place] [address] Jul, [facility] [address], [place] [address] Jun, [facility] [address], [place] [address] Jun, [facility] [id number] [place] [address] Jun, [facility] [id number] [place] [address] May, Generalized anxiety disorder F41.1 and Mild episode of recurrent major depressive disorder F33.0 [facility] [id number] [place] [address] May, Fibromyalgia M79.7 [facility] [id number] [place] [address] May, Generalized anxiety disorder F41.1 and Mild episode of recurrent major depressive disorder F33.0 [facility] [id number] [place] [address] Apr, Fibromyalgia M79.7 [facility] [id number] [place] [address] Apr, [facility] [id number] [place] [address] Apr, [facility] [id number] [place] [address] Apr, Generalized anxiety disorder F41.1 and Mild episode of recurrent major depressive disorder F33.0 [facility] [address] [place] [address] Apr, Generalized anxiety disorder F41.1 and Mild episode of recurrent major depressive disorder F33.0 [facility] [id number] [place] [address] Apr, Fibromyalgia M79.7 [facility] [address] [place] [address] Apr, Generalized anxiety disorder F41.1 and Mild episode of recurrent major depressive disorder F33.0 [facility] [id number] [place] [address] Mar, [place] [address] [place] [address] Mar, Age-related osteoporosis without current pathological fracture M81.0 ; Encounter for immunization Z23 and BMI 40.0-44.9, adult Z68.41 [place] [id number] [place] [address] Mar, Generalized anxiety disorder F41.1 and Mild episode of recurrent major depressive disorder F33.0 [place] [id number] [place] [address] Mar, Fibromyalgia M79.7 [place] [address] [address] Mar, Generalized anxiety disorder F41.1 and Mild episode of recurrent major depressive disorder F33.0 [place] [id number] [place] [address] 24 Feb, 2018 Generalized anxiety disorder F41.1 and Mild episode of recurrent major depressive disorder F33.0 [place] [id number] [place] [address] 13 Feb, 2018 Fibromyalgia M79.7 [place] [id number] [place] [address] 10 Feb, 2018 Generalized anxiety disorder F41.1 and Mild episode of recurrent major depressive disorder F33.0 [place] [id number] [place] [address] 06 Feb, 2018 [place] [id number] [place] [address] Feb, Bronchospasm J98.01 and Arthritis M19.90 [place] [id number] [place] [address] Jan, Medicare annual wellness visit, initial Z00.00 ; Reactive depression F32.9 ; Reflex sympathetic dystrophy G90.50 ; Fibromyalgia M79.7 ; BMI 40.0- 44.9, adult Z68.41 ; Hypothyroidism, unspecified type E03.9 ; Gastroesophageal reflux disease, esophagitis presence not specified K21.9 ; Family history of osteoporosis Z82.62 ; Venous insufficiency I87.2 ; Arthritis M19.90 ; Mixed hyperlipidemia E78.2 and Generalized anxiety disorder F41.1 [place] [id number] [place] [address] Jan, Generalized anxiety disorder F41.1 and Mild episode of recurrent major depressive disorder F33.0 [place] [address] [address] Jan, Mild episode of recurrent major depressive disorder F33.0 and Generalized anxiety disorder F41.1 [place] [address] [address] Jan, Fibromyalgia M79.7 [place] [address] [address] Jan, Bronchospasm J98.01 [place] [address] [address] Jan, [place] [address] [address] Jan, Generalized anxiety disorder F41.1 and Mild episode of recurrent major depressive disorder F33.0 [place] [id number] [place] [address] Jan, Bronchitis J40 [place] [id number] [place] [address] Dec, Mild episode of recurrent major depressive disorder F33.0 [place] [id number] [place] [address] Dec, Generalized anxiety disorder F41.1 and Mild episode of recurrent major depressive disorder F33.0 [place] [id number] [place] [address] Dec, Fibromyalgia M79.7 ; Arthritis M19.90 and Generalized anxiety disorder F41.1 [facility] [address], [place] [address] Dec, Mild episode of recurrent major depressive disorder F33.0 and Generalized anxiety disorder F41.1 [facility] [id number] [place] [address] Dec, Fibromyalgia M79.7 [facility] [id number] [place] [address] Dec, Bronchitis J40 and Internal derangement of right knee M23.91 [facility] [id number] [place] [address] Dec, Cough R05 [facility] [id number] [place] [address] Dec, Generalized anxiety disorder F41.1 and Mild episode of recurrent major depressive disorder F33.0 [facility] [id number] [place] [address] Dec, [facility] [id number] [place] [address] Dec, [facility] [id number] [place] [address] Dec, Mild episode of recurrent major depressive disorder F33.0 and Generalized anxiety disorder F41.1 [facility] [id number] [place] [address] Nov, [facility] [id number] [place] [address] Nov, [facility] [id number] [place] [address] Nov, [facility] [id number] [place] [address] Nov, Internal derangement of right knee M23.91 [facility] [id number] [place] [address] Nov, Generalized anxiety disorder F41.1 and Mild episode of recurrent major depressive disorder F33.0 [facility] [address] [place] [address] 22 Nov, 2017 Internal derangement of right knee M23.91 [facility] [address], [place] [address] 19 Nov, 2017 Acute right ankle pain M25.571 ; Acute pain of right knee M25.561 ; Acute left-sided low back pain without sciatica M54.5 and Right leg pain M79.604 [facility] [address] [place] [address] 15 Nov, 2017 [facility] [id number] [place] [address] Nov, Fibromyalgia M79.7 [facility] [id number] [place] [address] Nov, Generalized anxiety disorder F41.1 and Mild episode of recurrent major depressive disorder F33.0 [facility] [address] [place] [address] Nov, [facility] [id number] [place] [address] October, Generalized anxiety disorder F41.1 and Mild episode of recurrent major depressive disorder F33.0 [facility] [id number] [place] [address] October, Fibromyalgia M79.7 [facility] [address], [place] [address] October, [facility] [id number] [place] [address] October, Generalized anxiety disorder F41.1 and Mild episode of recurrent major depressive disorder F33.0 [facility] [address] [place] [address] October, [facility] [id number] [place] [address] Sep, Gastroesophageal reflux disease, esophagitis presence not specified K21.9 and Abnormal laboratory test R89.9 [facility] [id number] [place] [address] Sep, Fibromyalgia M79.7 [facility] [address] [address] Sep, Generalized anxiety disorder F41.1 and Mild episode of recurrent major depressive disorder F33.0 [facility] [id number] [place] [address] Sep, Epigastric pain R10.13 [facility] [id number] [place] [address] Sep, Mild episode of recurrent major depressive disorder F33.0 and Generalized anxiety disorder F41.1 [place] [id number] [place] [address] Sep, Abnormal laboratory test R89.9 [facility] [id number] [place] [address] Sep, Generalized anxiety disorder F41.1 and Mild episode of recurrent major depressive disorder F33.0 [facility] [id number] [place] [address] Aug, Epigastric pain R10.13 and Encounter for therapeutic drug level monitoring Z51.81 [facility] [id number] [place] [address] Aug, Epigastric pain R10.13 and Gastro-esophageal reflux disease without esophagitis K21.9 [facility] [id number] [place] [address] Aug, [facility] [id number] [place] [address] Aug, Epigastric pain R10.13 [place] [id number] [place] [address] Aug, Fibromyalgia M79.7 [place] [address] [address] Aug, [place] [id number] [place] [address] Aug, Generalized anxiety disorder F41.1 and Mild episode of recurrent major depressive disorder F33.0 [place] [id number] [place] [address] 08 Aug, 2017 Epigastric pain R10.13 ; Reflex sympathetic dystrophy G90.50 and Arthritis M19.90 [place] [id number] [place] [address] Jul, Generalized anxiety disorder F41.1 and Mild episode of recurrent major depressive disorder F33.0 [place] [id number] [place] [address] Jul, BMI 40.0-44.9, adult Z68.41 ; Mild episode of recurrent major depressive disorder F33.0 and Generalized anxiety disorder F41.1 [place] [id number] [place] [address] Jul, Fibromyalgia M79.7 [place] [id number] [place] [address] Jun, Mild episode of recurrent major depressive disorder F33.0 and Generalized anxiety disorder F41.1 [place] [id number] [place] [address] Jun, Fibromyalgia M79.7 [place] [id number] [place] [address] Jun, Generalized anxiety disorder F41.1 and Mild episode of recurrent major depressive disorder F33.0 [place] [id number] [place] [address] Jun, Generalized anxiety disorder F41.1 and Mild episode of recurrent major depressive disorder F33.0 [facility] [address], [place] [address] Jun, Generalized anxiety disorder F41.1 and Mild episode of recurrent major depressive disorder F33.0 [facility] [address] [place] [address] Jun, [facility] [id number] [place] [address] Jun, Generalized anxiety disorder F41.1 and Mild episode of recurrent major depressive disorder F33.0 [place] [id number] [place] [address] May, Fibromyalgia M79.7 [place] [id number] [place] [address] May, Generalized anxiety disorder F41.1 and Mild episode of recurrent major depressive disorder F33.0 [facility] [address], [place] [address] May, Mixed hyperlipidemia E78.2 ; Arthritis M19.90 ; Reactive depression F32.9 and Hypothyroidism, unspecified type E03.9 [place] [address] [place] [address] May, Arthritis M19.90 ; Reactive depression F32.9 ; Mixed hyperlipidemia E78.2 and Hypothyroidism, unspecified type E03.9 [facility] [address] [place] [address] Apr, Fibromyalgia M79.7 [facility] [address] [place] [address] Apr, [facility] [id number] [place] [address] Apr, Fibromyalgia M79.7 [facility] [address] [place] [address] Mar, Fibromyalgia M79.7 [facility] [id number] [place] [address] Mar, [facility] [address] [address] Mar, Fibromyalgia M79.7 [facility] [address] [address] Mar, [facility] [address] [address] Feb, Reflex sympathetic dystrophy G90.50 ; Right arm pain M79.601 and Fibromyalgia M79.7 [facility] [address] [address] Feb, [facility] [address] [address] Feb, Anxiety F41.9 [facility] [address] [address] 06 Feb, 2017 Fibromyalgia M79.7 [facility] [address] [address] Feb, [facility] [id number] [place] [address] Feb, [facility] [id number] [place] [address] Jan, Temporal headache R51 [facility] [id number] [place] [address] Jan, Fibromyalgia M79.7 [facility] [id number] [place] [address] Dec, Fibromyalgia M79.7 [facility] [id number] [place] [address] Nov, Peroneal tendonitis, unspecified laterality M76.70 and Plantar fasciitis, bilateral M72.2 [facility] [id number] [place] [address] Nov, Fibromyalgia M79.7 [place] [address] [address] October, Fibromyalgia M79.7 [place] [id number] [place] [address] October, Plantar fasciitis, bilateral M72.2 and Peroneal tendonitis, unspecified laterality M76.70 [place] [id number] [place] [address] October, Fibromyalgia M79.7 [place] [address] [address] Sep, Anxiety F41.9 [place] [address] [address] Aug, Anxiety F41.9 and Adjustment disorder with anxiety F43.22 [place] [id number] [place] [address] Aug, Pain of left foot M79.672 [place] [address] [address] Aug, Pain of left foot M79.672 and Pain in right foot M79.671 [place] [id number] [place] [address] Aug, Arthritis M19.90 ; Reactive depression F32.9 ; Fibromyalgia M79.7 ; Rosacea L71.9 ; Pain in right foot M79.671 and Pain of left foot M79.672 [place] [address] [address] Aug, Anxiety F41.9 ; Adjustment disorder with anxiety F43.22 and Reactive depression F32.9 [place] [id number] [place] [address] Aug, Right elbow pain M25.521 [place] [address] [address] Aug, Plantar wart of right foot B07.0 and Actinic keratosis L57.0 [place] [id number] [place] [address] Aug, Fibromyalgia M79.7 [place] [address] [address] Jul, Arthritis M19.90 ; Hypothyroidism, unspecified type E03.9 ; Reactive depression F32.9 and Venous insufficiency I87.2 [place] [address] [address] Jul, Gastroesophageal reflux disease, esophagitis presence not specified K21.9 [place] [address] [address] Jul, Reflex sympathetic dystrophy G90.50 [place] [address] [address] Jul, Anxiety F41.9 ; Adjustment disorder with anxiety F43.22 and Reactive depression F32.9 [place] [address] [address] Jul, [place] [address] [address] Jul, Right elbow pain M25.521 [place] [address] [address] Jun, Fibromyalgia M79.7 [place] [address] [address] Jun, Anxiety F41.9 ; Adjustment disorder with anxiety F43.22 and Reactive depression F32.9 [place] [id number] [place] [address] Jun, [place] [address] [address] 19 Jun, 2016 Atypical chest pain R07.89 and Adjustment disorder with anxiety F43.22 [facility] [address] [id number] 16 Jun, 2016 Chest pain, unspecified type R07.9 [place] [address] [address] Jun, Fibromyalgia M79.7 [place] [address] [address] May, Anxiety F41.9 [place] [address] [address] May, [place] [address] [address] May, Right elbow pain M25.521 [place] [address] [address] Apr, Reflex sympathetic dystrophy G90.50 and Encounter for immunization Z23 [place] [address] [address] Apr, [place] [address] [address] Mar, [place] [address] [address] Feb, [facility] [address] [address] Feb, [facility] [address] [address] Jan, [place] [address] [address] Jan, Right elbow pain M25.521 and Right wrist pain M25.531 [place] [address] [address] Jan, [facility] [address] [place] [address] Dec, Seborrheic keratoses L82.1 [facility] [address] [place] [address] Dec, [facility] [address] [place] [id number] [place] [address] Dec, [facility] [address] [place] [id number] [place] [address] Dec, [facility] [address] [place] [id number] [place] [address] Dec, Fibromyalgia M79.7 and Hypothyroidism, unspecified type E03.9 [facility] [address] [place] [id number] [place] [address] Dec, Seborrheic keratoses L82.1 [facility] [address] [place] [id number] [address] Dec, [facility] [address] [place] [id number] [place] [address] Dec, [facility] [address], [place] [address] Nov, Sebaceous cyst L72.3 [facility] [id number] [place] [address] October, Breast cancer screening Z12.39 [facility] [address] [place] [address] October, Fibromyalgia M79.7 ; Hypothyroidism, unspecified type E03.9 and Reflex sympathetic dystrophy G90.50 [facility] [id number] [place] [address] October, Reflex sympathetic dystrophy G90.50 ; Fibromyalgia M79.7 and Hypothyroidism, unspecified type E03.9 IMMUNIZATIONS No Known Immunizations SOCIAL HISTORY Never Assessed REASON FOR VISIT BH f/u PLAN OF CARE Activity Details Follow Up 2 Weeks Reason:anxiety & depression VITAL SIGNS MEDICATIONS Unknown Medications RESULTS No Results PROCEDURES Procedure Date Ordered Result Body Site [facility] VISIT MENTAL HEALTH ESTAB PT Jun 05, 2018 Psychotherapy, patient and family, 45 minutes, established patient Jun 05, 2018 INSTRUCTIONS MEDICATIONS ADMINISTERED No Known Medications [...]
--- OUTSIDE RECORDS SUMMARY | 2018-11-16 13:00 | XMS REPORT ---
Author Author BAMBI POLLY [facility] Address [address] [place] [address] Care Team Providers Care Cso Name Role Phone MANAVKAYA VARMAA Unavailable PROBLEMS Type Condition ICD9-CM Code EIK34-OR Code Onset Dates Condition Status SNOMED Code Problem Gastroesophageal reflux disease, esophagitis presence not specified K21.9 Active 678781021 Problem Rosacea L71.9 Active 048252934 Problem Plantar wart of right foot B07.0 Active 67388071 Problem Age-related osteoporosis without current pathological fracture M81.0 Active 66861412 Problem Internal derangement of right knee M23.91 Active 187802662524704 Problem Generalized anxiety disorder F41.1 Active 84441920 Problem Mixed hyperlipidemia E78.2 Active 702773189 Problem Abnormal laboratory test R89.9 Active 584590340 Problem Mild episode of recurrent major depressive disorder F33.0 Active 823894760 Problem Hypothyroidism, unspecified type E03.9 Active 68201260 Problem Reflex sympathetic dystrophy G90.50 Active 60009692 Problem Right wrist pain M25.531 Active 93573421 Problem Venous insufficiency I87.2 Active 36122257 Problem Fibromyalgia M79.7 Active 662900952 Problem Arthritis M19.90 Active 3580776 Problem Right elbow pain M25.521 Active 93579662 Problem Reactive depression F32.9 Active 58327698 ALLERGIES No Information ENCOUNTERS Encounter Location Date Diagnosis [facility] [address] [facility] [id number] [address] Aug, [facility] [id number] [address] 04 Jul, 2018 [facility] [id number] [address] Jun, [facility] [id number] [address] Jun, [facility] [id number] [address] Jun, [facility] [id number] [place] [address] May, [facility] [address], [place] [address] May, Fibromyalgia M79.7 [facility] [id number] [place] [address] May, Generalized anxiety disorder F41.1 and Mild episode of recurrent major depressive disorder F33.0 [facility] [id number] [place] [address] Apr, Fibromyalgia M79.7 [facility] [address] [address] Apr, [facility] [address] [place] [address] Apr, [facility] [address] [place] [address] Apr, Generalized anxiety disorder F41.1 and Mild episode of recurrent major depressive disorder F33.0 [facility] [address], [place] [address] Apr, Generalized anxiety disorder F41.1 and Mild episode of recurrent major depressive disorder F33.0 [facility] [id number] [address] Apr, Fibromyalgia M79.7 [facility] [id number] [address] Apr, Generalized anxiety disorder F41.1 and Mild episode of recurrent major depressive disorder F33.0 [facility] [address], [place] [address] Mar, [facility] [id number] [place] [address] Mar, Age-related osteoporosis without current pathological fracture M81.0 ; Encounter for immunization Z23 and BMI 40.0-44.9, adult Z68.41 [place] [id number] [place] [address] Mar, Generalized anxiety disorder F41.1 and Mild episode of recurrent major depressive disorder F33.0 [place] [facility] [id number] [place] [address] Mar, Fibromyalgia M79.7 [place] [address] [address] Mar, Generalized anxiety disorder F41.1 and Mild episode of recurrent major depressive disorder F33.0 [facility] [id number] [place] [address] 24 Feb, 2018 Generalized anxiety disorder F41.1 and Mild episode of recurrent major depressive disorder F33.0 [facility] [id number] [place] [address] 13 Feb, 2018 Fibromyalgia M79.7 [facility] [id number] [place] [address] 10 Feb, 2018 Generalized anxiety disorder F41.1 and Mild episode of recurrent major depressive disorder F33.0 [facility] [facility] [id number] [place] [address] Feb, [place] [id number] [place] [address] 04 Feb, 2018 Bronchospasm J98.01 and Arthritis M19.90 [place] [address] [address] Jan, Medicare annual wellness visit, initial Z00.00 ; Reactive depression F32.9 ; Reflex sympathetic dystrophy G90.50 ; Fibromyalgia M79.7 ; BMI 40.0- 44.9, adult Z68.41 ; Hypothyroidism, unspecified type E03.9 ; Gastroesophageal reflux disease, esophagitis presence not specified K21.9 ; Family history of osteoporosis Z82.62 ; Venous insufficiency I87.2 ; Arthritis M19.90 ; Mixed hyperlipidemia E78.2 and Generalized anxiety disorder F41.1 [place] [facility] [id number] [place] [address] Jan, Generalized anxiety disorder F41.1 and Mild episode of recurrent major depressive disorder F33.0 [place] [address] [address] Jan, Mild episode of recurrent major depressive disorder F33.0 and Generalized anxiety disorder F41.1 [place] [address] [address] Jan, Fibromyalgia M79.7 [place] [address] [address] Jan, Bronchospasm J98.01 [place] [address] [address] Jan, [place] [facility] [address] [address] Jan, Generalized anxiety disorder F41.1 and Mild episode of recurrent major depressive disorder F33.0 [place] [id number] [place] [address] Jan, Bronchitis J40 [place] [id number] [place] [address] Dec, Mild episode of recurrent major depressive disorder F33.0 [place] [facility] [id number] [place] [address] Dec, Generalized anxiety disorder F41.1 and Mild episode of recurrent major depressive disorder F33.0 [place] [id number] [place] [address] Dec, Fibromyalgia M79.7 ; Arthritis M19.90 and Generalized anxiety disorder F41.1 [place] [facility] [address] [place] [address] Dec, Mild episode of recurrent major depressive disorder F33.0 and Generalized anxiety disorder F41.1 [facility] [id number] [place] [address] Dec, Fibromyalgia M79.7 [facility] [address] [place] [address] Dec, Bronchitis J40 and Internal derangement of right knee M23.91 [facility] [address], [place] [address] Dec, Cough R05 [facility] [id number] [place] [address] Dec, Generalized anxiety disorder F41.1 and Mild episode of recurrent major depressive disorder F33.0 [facility] [id number] [place] [address] Dec, [facility] [id number] [place] [address] Dec, [facility] [id number] [place] [address] Dec, Mild episode of recurrent major depressive disorder F33.0 and Generalized anxiety disorder F41.1 [facility] [address], [place] [address] Nov, [facility] [id number] [place] [address] Nov, [facility] [address], [place] [address] Nov, [facility] [address] [place] [address] Nov, Internal derangement of right knee M23.91 [facility] [address], [place] [address] Nov, Generalized anxiety disorder F41.1 and Mild episode of recurrent major depressive disorder F33.0 [facility] [address] [address] 22 Nov, 2017 Internal derangement of right knee M23.91 [facility] [id number], [place] [address] 19 Nov, 2017 Acute right ankle pain M25.571 ; Acute pain of right knee M25.561 ; Acute left-sided low back pain without sciatica M54.5 and Right leg pain M79.604 [facility] [address], [place] [address] 15 Nov, 2017 [facility] [id number] [place] [address] Nov, Fibromyalgia M79.7 [facility] [id number] [place] [address] Nov, Generalized anxiety disorder F41.1 and Mild episode of recurrent major depressive disorder F33.0 [facility] [address], [place] [address] Nov, [facility] [id number] [place] [address] October, Generalized anxiety disorder F41.1 and Mild episode of recurrent major depressive disorder F33.0 [facility] [address], [place] [address] October, Fibromyalgia M79.7 [facility] [address], [place] [address] October, [facility] [id number] [place] [address] October, Generalized anxiety disorder F41.1 and Mild episode of recurrent major depressive disorder F33.0 [facility] [address], [place] [address] October, [facility] [id number] [place] [address] 24 Sep, 2017 Gastroesophageal reflux disease, esophagitis presence not specified K21.9 and Abnormal laboratory test R89.9 [facility] [id number] [place] [address] 18 Sep, 2017 Fibromyalgia M79.7 [facility] [id number] [place] [address] 17 Sep, 2017 Generalized anxiety disorder F41.1 and Mild episode of recurrent major depressive disorder F33.0 [facility] [id number] [place] [address] Sep, Epigastric pain R10.13 [place] [address] [address] Sep, Mild episode of recurrent major depressive disorder F33.0 and Generalized anxiety disorder F41.1 [place] [address] [address] Sep, Abnormal laboratory test R89.9 [facility] [id number] [place] [address] Sep, Generalized anxiety disorder F41.1 and Mild episode of recurrent major depressive disorder F33.0 [facility] [id number] [place] [address] 29 Aug, 2017 Epigastric pain R10.13 and Encounter for therapeutic drug level monitoring Z51.81 [facility] [id number] [place] [address] Aug, Epigastric pain R10.13 and Gastro-esophageal reflux disease without esophagitis K21.9 [facility] [id number] [place] [address] Aug, [facility] [id number] [place] [address] Aug, Epigastric pain R10.13 [facility] [id number] [place] [address] Aug, Fibromyalgia M79.7 [facility] [id number] [place] [address] Aug, [facility] [id number] [place] [address] Aug, Generalized anxiety disorder F41.1 and Mild episode of recurrent major depressive disorder F33.0 [facility] [address] [address] Aug, Epigastric pain R10.13 ; Reflex sympathetic dystrophy G90.50 and Arthritis M19.90 [place] [id number] [place] [address] Jul, Generalized anxiety disorder F41.1 and Mild episode of recurrent major depressive disorder F33.0 [place] [id number] [place] [address] Jul, BMI 40.0-44.9, adult Z68.41 ; Mild episode of recurrent major depressive disorder F33.0 and Generalized anxiety disorder F41.1 [facility] [id number] [place] [address] Jul, Fibromyalgia M79.7 [facility] [id number] [place] [address] Jun, Mild episode of recurrent major depressive disorder F33.0 and Generalized anxiety disorder F41.1 [facility] [id number] [place] [address] Jun, Fibromyalgia M79.7 [facility] [id number] [place] [address] Jun, Generalized anxiety disorder F41.1 and Mild episode of recurrent major depressive disorder F33.0 [facility] [address] [place] [address] Jun, Generalized anxiety disorder F41.1 and Mild episode of recurrent major depressive disorder F33.0 [facility] [address], [place] [address] Jun, Generalized anxiety disorder F41.1 and Mild episode of recurrent major depressive disorder F33.0 [facility] [address], [place] [address] Jun, [facility] [address] [place] [address] Jun, Generalized anxiety disorder F41.1 and Mild episode of recurrent major depressive disorder F33.0 [facility] [address] [place] [address] May, Fibromyalgia M79.7 [facility] [address] [place] [address] May, Generalized anxiety disorder F41.1 and Mild episode of recurrent major depressive disorder F33.0 [facility] [address] [place] [address] May, Mixed hyperlipidemia E78.2 ; Arthritis M19.90 ; Reactive depression F32.9 and Hypothyroidism, unspecified type E03.9 [facility] [address] [place] [address] May, Arthritis M19.90 ; Reactive depression F32.9 ; Mixed hyperlipidemia E78.2 and Hypothyroidism, unspecified type E03.9 [facility] [address], [place] [address] Apr, Fibromyalgia M79.7 [facility] [address], [place] [address] Apr, [facility] [id number] [place] [address] Apr, Fibromyalgia M79.7 [facility] [address], [place] [address] Mar, Fibromyalgia M79.7 [facility] [address] [place] [address] Mar, [facility] [address] [address] Mar, Fibromyalgia M79.7 [facility] [address] [address] Mar, [facility] [address] [address] Feb, Reflex sympathetic dystrophy G90.50 ; Right arm pain M79.601 and Fibromyalgia M79.7 [facility] [address] [address] Feb, [facility] [address] [address] Feb, Anxiety F41.9 [facility] [address] [address] Feb, Fibromyalgia M79.7 [facility] [address] [address] Feb, [facility] [address] [address] Feb, [facility] [address] [address] Jan, Temporal headache R51 [facility] [id number] [place] [address] Jan, Fibromyalgia M79.7 [facility] [id number] [place] [address] Dec, Fibromyalgia M79.7 [facility] [address] [address] Nov, Peroneal tendonitis, unspecified laterality M76.70 and Plantar fasciitis, bilateral M72.2 [facility] [address] [address] Nov, Fibromyalgia M79.7 [place] [facility] [id number] [place] [address] October, Fibromyalgia M79.7 [place] [facility] [id number] [place] [address] October, Plantar fasciitis, bilateral M72.2 and Peroneal tendonitis, unspecified laterality M76.70 [place] [address] [address] October, Fibromyalgia M79.7 [place] [address] [address] Sep, Anxiety F41.9 [place] [address] [address] Aug, Anxiety F41.9 and Adjustment disorder with anxiety F43.22 [place] [facility] [address] [address] Aug, Pain of left foot M79.672 [place] [address] [address] Aug, Pain of left foot M79.672 and Pain in right foot M79.671 [facility] [id number] [place] [address] Aug, Arthritis M19.90 ; Reactive depression F32.9 ; Fibromyalgia M79.7 ; Rosacea L71.9 ; Pain in right foot M79.671 and Pain of left foot M79.672 [place] [id number] [place] [address] Aug, Anxiety F41.9 ; Adjustment disorder with anxiety F43.22 and Reactive depression F32.9 [facility] [id number] [place] [address] Aug, Right elbow pain M25.521 [place] [address] [address] Aug, Plantar wart of right foot B07.0 and Actinic keratosis L57.0 [place] [address] [address] Aug, Fibromyalgia M79.7 [place] [address] [address] Jul, Arthritis M19.90 ; Hypothyroidism, unspecified type E03.9 ; Reactive depression F32.9 and Venous insufficiency I87.2 [place] [address] [address] Jul, Gastroesophageal reflux disease, esophagitis presence not specified K21.9 [place] [address] [address] Jul, Reflex sympathetic dystrophy G90.50 [place] [address] [address] Jul, Anxiety F41.9 ; Adjustment disorder with anxiety F43.22 and Reactive depression F32.9 [place] [address] [address] Jul, [place] [address] [address] Jul, Right elbow pain M25.521 [place] [address] [address] Jun, Fibromyalgia M79.7 [place] [address] [address] Jun, Anxiety F41.9 ; Adjustment disorder with anxiety F43.22 and Reactive depression F32.9 [place] [address] [address] Jun, [place] [address] [address] Jun, Atypical chest pain R07.89 and Adjustment disorder with anxiety F43.22 [facility] [address] [id number] Jun, Chest pain, unspecified type R07.9 [facility] [address] [address] Jun, Fibromyalgia M79.7 [facility] [address] [address] May, Anxiety F41.9 [facility] [address] [address] May, [facility] [address] [address] May, Right elbow pain M25.521 [facility] [address] [address] Apr, Reflex sympathetic dystrophy G90.50 and Encounter for immunization Z23 [facility] [address] [address] Apr, [facility] [address] [address] Mar, [facility] [id number] [place] [address] Feb, [facility] [address] [address] Feb, [facility] [id number] [place] [address] Jan, [facility] [address] [address] Jan, Right elbow pain M25.521 and Right wrist pain M25.531 [facility] [address] [address] Jan, [facility] [address], [place] [address] Dec, Seborrheic keratoses L82.1 [facility] [id number] [place] [address] Dec, [facility] [id number] [place] [address] Dec, [facility] [id number] [place] [address] Dec, [facility] [id number] [place] [address] Dec, Fibromyalgia M79.7 and Hypothyroidism, unspecified type E03.9 [facility] [id number] [place] [address] Dec, Seborrheic keratoses L82.1 [facility] [id number] [place] [address] Dec, [facility] [id number] [place] [address] Dec, [place] [place] [id number] [place] [address] Nov, Sebaceous cyst L72.3 [facility] [id number] [place] [address] October, Breast cancer screening Z12.39 [facility] [id number] [place] [address] October, Fibromyalgia M79.7 ; Hypothyroidism, unspecified type E03.9 and Reflex sympathetic dystrophy G90.50 [facility] [address], [place] [address] October, Reflex sympathetic dystrophy G90.50 ; Fibromyalgia M79.7 and Hypothyroidism, unspecified type E03.9 IMMUNIZATIONS No Known Immunizations SOCIAL HISTORY Never Assessed REASON FOR VISIT F\U PLAN OF CARE Activity Details Follow Up 4 Months Reason: VITAL SIGNS Height 62 in 2018-05-15 Weight 220 lbs 2018-05-15 Heart Rate 96 bpm 2018-05-15 Respiratory Rate 20 2018-05-15 BMI 40.23 kg/m2 2018-05-15 Blood pressure systolic 142 mmHg 2018-05-15 Blood pressure diastolic 70 mmHg 2018-05-15 MEDICATIONS Medication Instructions Dosage Frequency Start Date End Date Duration Status Hydrocodone-Acetaminophen 7.5-325 MG Orally 3 times a day 1 tablet 8h Apr, 28 days Active Amitriptyline HCl 10 MG Orally Once a day 1 tablet 24h Active Actonel 35 MG Orally once weekly 1 tablet Mar, Sep, 30 day(s) Active Fosamax 70 MG Orally once weekly 1 tablet Mar, Sep, 30 day(s) Active HydrOXYzine HCl 10 MG Orally TID 1 tablet as needed 8h Active Rexulti 2 MG Orally Once a day 1 tablet 24h 30 days Active RESULTS No Results PROCEDURES Procedure Date Ordered Result Body Site [facility] VISIT ESTABLISHED PATIENT May 15, 2018 INSTRUCTIONS MEDICATIONS ADMINISTERED No Known Medications [...]
--- OUTSIDE RECORDS SUMMARY | 2018-11-16 13:00 | XMS REPORT ---
Author Author JOE BAI [facility] Address [address] [place] [address] Care Team Providers Care Order Dispatcher Name Role Phone JOE BAI Unavailable PROBLEMS Type Condition ICD9-CM Code OUF39-MW Code Onset Dates Condition Status SNOMED Code Problem Gastroesophageal reflux disease, esophagitis presence not specified K21.9 Active 696276240 Problem Rosacea L71.9 Active 125576523 Problem Plantar wart of right foot B07.0 Active 72054143 Problem Age-related osteoporosis without current pathological fracture M81.0 Active 78310328 Problem Internal derangement of right knee M23.91 Active [id number] Problem Generalized anxiety disorder F41.1 Active 06053414 Problem Mixed hyperlipidemia E78.2 Active 560750258 Problem Abnormal laboratory test R89.9 Active 516094871 Problem Mild episode of recurrent major depressive disorder F33.0 Active 461405838 Problem Hypothyroidism, unspecified type E03.9 Active 56437870 Problem Reflex sympathetic dystrophy G90.50 Active 66653283 Problem Right wrist pain M25.531 Active 34338650 Problem Venous insufficiency I87.2 Active 64217391 Problem Fibromyalgia M79.7 Active 487289326 Problem Arthritis M19.90 Active 7026444 Problem Right elbow pain M25.521 Active 03861217 Problem Reactive depression F32.9 Active 56411807 ALLERGIES No Information ENCOUNTERS Encounter Location Date Diagnosis [facility] [address] [facility] [id number], [place] [address] Aug, [facility] [address], [place] [address] Jul, [facility] [id number] [address] Jun, [facility] [id number] [address] Jun, [facility] [address] [facility] [id number], [place] [address] Jun, [facility] [address] [facility] [id number], [place] [address] May, [facility] [id number] [address] May, Fibromyalgia M79.7 [facility] [id number] [address] May, Generalized anxiety disorder F41.1 and Mild episode of recurrent major depressive disorder F33.0 [facility] [id number] [place] [address] Apr, Fibromyalgia M79.7 [facility] [address] [address] Apr, [facility] [id number] [address] Apr, [facility] [id number] [address] Apr, Generalized anxiety disorder F41.1 and Mild episode of recurrent major depressive disorder F33.0 [facility] [address], [place] [address] Apr, Generalized anxiety disorder F41.1 and Mild episode of recurrent major depressive disorder F33.0 [facility] [id number] [address] Apr, Fibromyalgia M79.7 [facility] [address] [facility] [id number], [place] [address] Apr, Generalized anxiety disorder F41.1 and Mild episode of recurrent major depressive disorder F33.0 [facility] [id number] [address] Mar, [facility] [address] [place] [address] Mar, Age-related osteoporosis without current pathological fracture M81.0 ; Encounter for immunization Z23 and BMI 40.0-44.9, adult Z68.41 [place] [id number] [place] [address] Mar, Generalized anxiety disorder F41.1 and Mild episode of recurrent major depressive disorder F33.0 [place] [facility] [address] [address] Mar, Fibromyalgia M79.7 [place] [address] [address] Mar, Generalized anxiety disorder F41.1 and Mild episode of recurrent major depressive disorder F33.0 [facility] [facility] [id number] [place] [address] 24 Feb, 2018 Generalized anxiety disorder F41.1 and Mild episode of recurrent major depressive disorder F33.0 [facility] [id number] [place] [address] 13 Feb, 2018 Fibromyalgia M79.7 [place] [address] [address] 10 Feb, 2018 Generalized anxiety disorder F41.1 and Mild episode of recurrent major depressive disorder F33.0 [facility] [id number] [place] [address] 06 Feb, 2018 [place] [address] [address] 04 Feb, 2018 Bronchospasm J98.01 and Arthritis M19.90 [place] [address] [address] Jan, Medicare annual wellness visit, initial Z00.00 ; Reactive depression F32.9 ; Reflex sympathetic dystrophy G90.50 ; Fibromyalgia M79.7 ; BMI 40.0- 44.9, adult Z68.41 ; Hypothyroidism, unspecified type E03.9 ; Gastroesophageal reflux disease, esophagitis presence not specified K21.9 ; Family history of osteoporosis Z82.62 ; Venous insufficiency I87.2 ; Arthritis M19.90 ; Mixed hyperlipidemia E78.2 and Generalized anxiety disorder F41.1 [place] [id number] [place] [address] Jan, Generalized anxiety disorder F41.1 and Mild episode of recurrent major depressive disorder F33.0 [place] [address] [address] Jan, Mild episode of recurrent major depressive disorder F33.0 and Generalized anxiety disorder F41.1 [place] [address] [address] Jan, Fibromyalgia M79.7 [place] [id number] [place] [address] Jan, Bronchospasm J98.01 [place] [address] [address] Jan, [place] [address] [address] Jan, Generalized anxiety disorder F41.1 and Mild episode of recurrent major depressive disorder F33.0 [place] [id number] [place] [address] Jan, Bronchitis J40 [facility] [id number] [place] [address] Dec, Mild episode of recurrent major depressive disorder F33.0 [place] [id number] [place] [address] Dec, Generalized anxiety disorder F41.1 and Mild episode of recurrent major depressive disorder F33.0 [facility] [id number] [place] [address] Dec, Fibromyalgia M79.7 ; Arthritis M19.90 and Generalized anxiety disorder F41.1 [place] [address] [place] [address] Dec, Mild episode of recurrent major depressive disorder F33.0 and Generalized anxiety disorder F41.1 [facility] [id number] [address] Dec, Fibromyalgia M79.7 [facility] [address], [place] [address] Dec, Bronchitis J40 and Internal derangement of right knee M23.91 [facility] [address], [place] [address] Dec, Cough R05 [facility] [id number] [place] [address] Dec, Generalized anxiety disorder F41.1 and Mild episode of recurrent major depressive disorder F33.0 [facility] [address], [place] [address] Dec, [facility] [address], [place] [address] Dec, [facility] [id number] [place] [address] Dec, Mild episode of recurrent major depressive disorder F33.0 and Generalized anxiety disorder F41.1 [facility] [address], [place] [address] Nov, [facility] [id number] [address] Nov, [facility] [address], [place] [address] Nov, [facility] [address], [place] [address] Nov, Internal derangement of right knee M23.91 [facility] [address], [place] [address] Nov, Generalized anxiety disorder F41.1 and Mild episode of recurrent major depressive disorder F33.0 [facility] [address], [place] [address] 22 Nov, 2017 Internal derangement of right knee M23.91 [facility] [id number] [address] 19 Nov, 2017 Acute right ankle pain M25.571 ; Acute pain of right knee M25.561 ; Acute left-sided low back pain without sciatica M54.5 and Right leg pain M79.604 [facility] [address], [place] [address] 15 Nov, 2017 [facility] [id number] [place] [address] Nov, Fibromyalgia M79.7 [facility] [address] [place] [address] Nov, Generalized anxiety disorder F41.1 and Mild episode of recurrent major depressive disorder F33.0 [facility] [address], [place] [address] Nov, [facility] [id number] [place] [address] October, Generalized anxiety disorder F41.1 and Mild episode of recurrent major depressive disorder F33.0 [facility] [address], [place] [address] October, Fibromyalgia M79.7 [facility] [address], [place] [address] October, [facility] [address] [place] [address] October, Generalized anxiety disorder F41.1 and Mild episode of recurrent major depressive disorder F33.0 [facility] [address], [place] [address] October, [facility] [id number] [place] [address] 24 Sep, 2017 Gastroesophageal reflux disease, esophagitis presence not specified K21.9 and Abnormal laboratory test R89.9 [facility] [id number] [place] [address] 18 Sep, 2017 Fibromyalgia M79.7 [facility] [id number] [place] [address] 17 Sep, 2017 Generalized anxiety disorder F41.1 and Mild episode of recurrent major depressive disorder F33.0 [facility] [id number] [place] [address] Sep, Epigastric pain R10.13 [place] [address] [address] 10 Sep, 2017 Mild episode of recurrent major depressive disorder F33.0 and Generalized anxiety disorder F41.1 [place] [address] [address] Sep, Abnormal laboratory test R89.9 [facility] [address] [address] Sep, Generalized anxiety disorder F41.1 and Mild episode of recurrent major depressive disorder F33.0 [facility] [id number] [place] [address] 29 Aug, 2017 Epigastric pain R10.13 and Encounter for therapeutic drug level monitoring Z51.81 [facility] [id number] [place] [address] Aug, Epigastric pain R10.13 and Gastro-esophageal reflux disease without esophagitis K21.9 [facility] [id number] [place] [address] Aug, [facility] [id number] [place] [address] Aug, Epigastric pain R10.13 [facility] [id number] [place] [address] Aug, Fibromyalgia M79.7 [facility] [id number] [place] [address] Aug, [facility] [address] [address] Aug, Generalized anxiety disorder F41.1 and Mild episode of recurrent major depressive disorder F33.0 [facility] [address] [address] Aug, Epigastric pain R10.13 ; Reflex sympathetic dystrophy G90.50 and Arthritis M19.90 [facility] [address] [address] Jul, Generalized anxiety disorder F41.1 and Mild episode of recurrent major depressive disorder F33.0 [place] [address] [address] Jul, BMI 40.0-44.9, adult Z68.41 ; Mild episode of recurrent major depressive disorder F33.0 and Generalized anxiety disorder F41.1 [facility] [address] [address] Jul, Fibromyalgia M79.7 [facility] [id number] [place] [address] Jun, Mild episode of recurrent major depressive disorder F33.0 and Generalized anxiety disorder F41.1 [facility] [id number] [place] [address] Jun, Fibromyalgia M79.7 [facility] [id number] [place] [address] Jun, Generalized anxiety disorder F41.1 and Mild episode of recurrent major depressive disorder F33.0 [facility] [id number] [place] [address] Jun, Generalized anxiety disorder F41.1 and Mild episode of recurrent major depressive disorder F33.0 [facility] [address], [place] [address] Jun, Generalized anxiety disorder F41.1 and Mild episode of recurrent major depressive disorder F33.0 [facility] [address], [place] [address] Jun, [facility] [address] [place] [address] Jun, Generalized anxiety disorder F41.1 and Mild episode of recurrent major depressive disorder F33.0 [facility] [address] [place] [address] May, Fibromyalgia M79.7 [facility] [address] [place] [address] May, Generalized anxiety disorder F41.1 and Mild episode of recurrent major depressive disorder F33.0 [facility] [address] [place] [address] May, Mixed hyperlipidemia E78.2 ; Arthritis M19.90 ; Reactive depression F32.9 and Hypothyroidism, unspecified type E03.9 [facility] [address] [place] [address] May, Arthritis M19.90 ; Reactive depression F32.9 ; Mixed hyperlipidemia E78.2 and Hypothyroidism, unspecified type E03.9 [facility] [address] [place] [address] Apr, Fibromyalgia M79.7 [facility] [address], [place] [address] Apr, [facility] [id number] [place] [address] Apr, Fibromyalgia M79.7 [facility] [address], [place] [address] Mar, Fibromyalgia M79.7 [facility] [address] [address] Mar, [facility] [address] [address] Mar, Fibromyalgia M79.7 [facility] [address] [address] Mar, [facility] [address] [address] Feb, Reflex sympathetic dystrophy G90.50 ; Right arm pain M79.601 and Fibromyalgia M79.7 [facility] [address] [address] Feb, [facility] [address] [address] Feb, Anxiety F41.9 [facility] [address] [address] Feb, Fibromyalgia M79.7 [facility] [address] [address] Feb, [facility] [address] [address] Feb, [facility] [address] [address] Jan, Temporal headache R51 [facility] [address] [address] Jan, Fibromyalgia M79.7 [facility] [id number] [place] [address] Dec, Fibromyalgia M79.7 [facility] [address] [address] Nov, Peroneal tendonitis, unspecified laterality M76.70 and Plantar fasciitis, bilateral M72.2 [facility] [address] [address] Nov, Fibromyalgia M79.7 [place] [id number] [place] [address] October, Fibromyalgia M79.7 [place] [address] [address] October, Plantar fasciitis, bilateral M72.2 and Peroneal tendonitis, unspecified laterality M76.70 [place] [address] [address] October, Fibromyalgia M79.7 [place] [address] [address] Sep, Anxiety F41.9 [place] [address] [address] Aug, Anxiety F41.9 and Adjustment disorder with anxiety F43.22 [place] [address] [address] Aug, Pain of left foot M79.672 [place] [address] [address] Aug, Pain of left foot M79.672 and Pain in right foot M79.671 [place] [id number] [place] [address] Aug, Arthritis M19.90 ; Reactive depression F32.9 ; Fibromyalgia M79.7 ; Rosacea L71.9 ; Pain in right foot M79.671 and Pain of left foot M79.672 [place] [id number] [place] [address] Aug, Anxiety F41.9 ; Adjustment disorder with anxiety F43.22 and Reactive depression F32.9 [place] [address] [address] Aug, Right elbow pain M25.521 [place] [address] [address] Aug, Plantar wart of right foot B07.0 and Actinic keratosis L57.0 [place] [address] [address] Aug, Fibromyalgia M79.7 [facility] [address] [address] Jul, Arthritis M19.90 ; Hypothyroidism, unspecified type E03.9 ; Reactive depression F32.9 and Venous insufficiency I87.2 [place] [address] [address] Jul, Gastroesophageal reflux disease, esophagitis presence not specified K21.9 [place] [address] [address] Jul, Reflex sympathetic dystrophy G90.50 [place] [address] [address] Jul, Anxiety F41.9 ; Adjustment disorder with anxiety F43.22 and Reactive depression F32.9 [place] [address] [address] Jul, [place] [address] [address] Jul, Right elbow pain M25.521 [place] [address] [address] Jun, Fibromyalgia M79.7 [place] [address] [address] Jun, Anxiety F41.9 ; Adjustment disorder with anxiety F43.22 and Reactive depression F32.9 [place] [address] [address] Jun, [place] [address] [address] Jun, Atypical chest pain R07.89 and Adjustment disorder with anxiety F43.22 [facility] [address] [id number] Jun, Chest pain, unspecified type R07.9 [facility] [id number] [place] [address] Jun, Fibromyalgia M79.7 [facility] [address] [address] May, Anxiety F41.9 [facility] [address] [address] May, [facility] [address] [address] May, Right elbow pain M25.521 [facility] [address] [address] Apr, Reflex sympathetic dystrophy G90.50 and Encounter for immunization Z23 [facility] [address] [address] Apr, [facility] [address] [address] Mar, [facility] [id number] [place] [address] Feb, [facility] [id number] [place] [address] Feb, [facility] [id number] [place] [address] Jan, [facility] [address] [address] Jan, Right elbow pain M25.521 and Right wrist pain M25.531 [facility] [address] [address] Jan, [facility] [address], [place] [address] Dec, Seborrheic keratoses L82.1 [facility] [id number] [place] [address] Dec, [facility] [id number] [place] [address] Dec, [facility] [id number] [place] [address] Dec, [facility] [id number] [place] [address] Dec, Fibromyalgia M79.7 and Hypothyroidism, unspecified type E03.9 [place] [id number] [place] [address] Dec, Seborrheic keratoses L82.1 [place] [id number] [place] [address] Dec, [place] [id number] [place] [address] Dec, [place] [id number] [place] [address] Nov, Sebaceous cyst L72.3 [facility] [id number] [place] [address] October, Breast cancer screening Z12.39 [place] [id number] [place] [address] October, Fibromyalgia M79.7 ; Hypothyroidism, unspecified type E03.9 and Reflex sympathetic dystrophy G90.50 [place] [address], [place] [address] October, Reflex sympathetic dystrophy G90.50 ; Fibromyalgia M79.7 and Hypothyroidism, unspecified type E03.9 IMMUNIZATIONS No Known Immunizations SOCIAL HISTORY Never Assessed REASON FOR VISIT Controlled Med Refill 05/26 PLAN OF CARE VITAL SIGNS MEDICATIONS Medication [...]
--- OUTSIDE RECORDS SUMMARY | 2018-11-16 13:01 | XMS REPORT ---
Author Author FRANK CHAPMAN Organization [facility] Address [address] [place] [address] Care Team Providers Care Nurse Wound Care Name Role Phone FRANK CHAPMAN Unavailable PROBLEMS Type Condition ICD9-CM Code TGA74-CX Code Onset Dates Condition Status SNOMED Code Problem Gastroesophageal reflux disease, esophagitis presence not specified K21.9 Active 765736084 Problem Rosacea L71.9 Active 097792380 Problem Plantar wart of right foot B07.0 Active 62965295 Problem Age-related osteoporosis without current pathological fracture M81.0 Active 60258118 Problem Internal derangement of right knee M23.91 Active [id number] Problem Generalized anxiety disorder F41.1 Active 54219457 Problem Mixed hyperlipidemia E78.2 Active 023088324 Problem Abnormal laboratory test R89.9 Active 285061646 Problem Mild episode of recurrent major depressive disorder F33.0 Active 660091729 Problem Hypothyroidism, unspecified type E03.9 Active 15317163 Problem Reflex sympathetic dystrophy G90.50 Active 04941617 Problem Right wrist pain M25.531 Active 58658924 Problem Venous insufficiency I87.2 Active 76725526 Problem Fibromyalgia M79.7 Active 179552832 Problem Arthritis M19.90 Active 1246625 Problem Right elbow pain M25.521 Active 95227939 Problem Reactive depression F32.9 Active 95945706 ALLERGIES No Information ENCOUNTERS Encounter Location Date Diagnosis [facility] [address] [facility] [id number] [address] Aug, [facility] [address], [place] [address] Jul, [facility] [address], [place] [address] Jun, [facility] [address], [place] [address] Jun, [facility] [address] [address] May, [facility] [address] [id number] [place] [address] May, [facility] [id number] [place] [address] May, Generalized anxiety disorder F41.1 and Mild episode of recurrent major depressive disorder F33.0 [facility] [id number] [place] [address] Apr, Fibromyalgia M79.7 [facility] [id number] [place] [address] Apr, [facility] [id number] [place] [address] Apr, [facility] [id number] [place] [address] Apr, Generalized anxiety disorder F41.1 and Mild episode of recurrent major depressive disorder F33.0 [facility] [id number] [place] [address] Apr, Generalized anxiety disorder F41.1 and Mild episode of recurrent major depressive disorder F33.0 [facility] [address] [place] [address] Apr, Fibromyalgia M79.7 [facility] [id number] [place] [address] Apr, Generalized anxiety disorder F41.1 and Mild episode of recurrent major depressive disorder F33.0 [facility] [id number] [place] [address] Mar, [facility] [id number] [place] [address] Mar, Age-related osteoporosis without current pathological fracture M81.0 ; Encounter for immunization Z23 and BMI 40.0-44.9, adult Z68.41 [place] [id number] [place] [address] Mar, Generalized anxiety disorder F41.1 and Mild episode of recurrent major depressive disorder F33.0 [place] [id number] [place] [address] Mar, Fibromyalgia M79.7 [place] [address] [address] Mar, Generalized anxiety disorder F41.1 and Mild episode of recurrent major depressive disorder F33.0 [place] [address] [address] 24 Feb, 2018 Generalized anxiety disorder F41.1 and Mild episode of recurrent major depressive disorder F33.0 [place] [id number] [place] [address] Feb, Fibromyalgia M79.7 [place] [id number] [place] [address] Feb, Generalized anxiety disorder F41.1 and Mild episode of recurrent major depressive disorder F33.0 [place] [id number] [place] [address] Feb, [place] [id number] [place] [address] Feb, Bronchospasm J98.01 and Arthritis M19.90 [place] [id number] [place] [address] Jan, Medicare annual wellness visit, initial Z00.00 ; Reactive depression F32.9 ; Reflex sympathetic dystrophy G90.50 ; Fibromyalgia M79.7 ; BMI 40.0- 44.9, adult Z68.41 ; Hypothyroidism, unspecified type E03.9 ; Gastroesophageal reflux disease, esophagitis presence not specified K21.9 ; Family history of osteoporosis Z82.62 ; Venous insufficiency I87.2 ; Arthritis M19.90 ; Mixed hyperlipidemia E78.2 and Generalized anxiety disorder F41.1 [facility] [address] [place] [address] Jan, Generalized anxiety disorder F41.1 and Mild episode of recurrent major depressive disorder F33.0 [facility] [id number] [place] [address] Jan, Mild episode of recurrent major depressive disorder F33.0 and Generalized anxiety disorder F41.1 [facility] [id number] [place] [address] Jan, Fibromyalgia M79.7 [facility] [id number] [place] [address] Jan, Bronchospasm J98.01 [facility] [id number] [place] [address] Jan, [facility] [id number] [place] [address] Jan, Generalized anxiety disorder F41.1 and Mild episode of recurrent major depressive disorder F33.0 [facility] [id number] [place] [address] Jan, Bronchitis J40 [facility] [id number] [place] [address] Dec, Mild episode of recurrent major depressive disorder F33.0 [facility] [id number] [place] [address] Dec, Generalized anxiety disorder F41.1 and Mild episode of recurrent major depressive disorder F33.0 [facility] [address] [place] [address] Dec, Fibromyalgia M79.7 ; Arthritis M19.90 and Generalized anxiety disorder F41.1 [facility] [address] [place] [address] Dec, Mild episode of recurrent major depressive disorder F33.0 and Generalized anxiety disorder F41.1 [place] [id number], [place] [address] 18 Dec, 2017 Fibromyalgia M79.7 [facility] [id number] [place] [address] 17 Dec, 2017 Bronchitis J40 and Internal derangement of right knee M23.91 [facility] [address], [place] [address] 12 Dec, 2017 Cough R05 [facility] [id number] [place] [address] Dec, Generalized anxiety disorder F41.1 and Mild episode of recurrent major depressive disorder F33.0 [place] [id number] [place] [address] Dec, [facility] [address], [place] [address] Dec, [facility] [id number] [place] [address] Dec, Mild episode of recurrent major depressive disorder F33.0 and Generalized anxiety disorder F41.1 [facility] [address] [place] [address] Nov, [facility] [address], [place] [address] Nov, [facility] [address], [place] [address] Nov, [facility] [address] [place] [address] Nov, Internal derangement of right knee M23.91 [facility] [address] [place] [address] Nov, Generalized anxiety disorder F41.1 and Mild episode of recurrent major depressive disorder F33.0 [facility] [address] [place] [address] Nov, Internal derangement of right knee M23.91 [facility] [address] [place] [address] 19 Nov, 2017 Acute right ankle pain M25.571 ; Acute pain of right knee M25.561 ; Acute left-sided low back pain without sciatica M54.5 and Right leg pain M79.604 [facility] [id number] [place] [address] 15 Nov, 2017 [facility] [id number] [place] [address] 14 Nov, 2017 Fibromyalgia M79.7 [facility] [id number] [place] [address] Nov, Generalized anxiety disorder F41.1 and Mild episode of recurrent major depressive disorder F33.0 [facility] [id number] [place] [address] Nov, [facility] [id number] [place] [address] October, Generalized anxiety disorder F41.1 and Mild episode of recurrent major depressive disorder F33.0 [facility] [id number] [place] [address] October, Fibromyalgia M79.7 [facility] [id number] [place] [address] October, [facility] [id number] [place] [address] October, Generalized anxiety disorder F41.1 and Mild episode of recurrent major depressive disorder F33.0 [facility] [id number] [place] [address] October, [facility] [id number] [place] [address] Sep, Gastroesophageal reflux disease, esophagitis presence not specified K21.9 and Abnormal laboratory test R89.9 [facility] [id number] [place] [address] 18 Sep, 2017 Fibromyalgia M79.7 [facility] [address] [address] 17 Sep, 2017 Generalized anxiety disorder F41.1 and Mild episode of recurrent major depressive disorder F33.0 [place] [address] [address] Sep, Epigastric pain R10.13 [facility] [id number] [place] [address] 10 Sep, 2017 Mild episode of recurrent major depressive disorder F33.0 and Generalized anxiety disorder F41.1 [place] [id number] [place] [address] Sep, Abnormal laboratory test R89.9 [place] [id number] [place] [address] Sep, Generalized anxiety disorder F41.1 and Mild episode of recurrent major depressive disorder F33.0 [facility] [id number] [place] [address] 29 Aug, 2017 Epigastric pain R10.13 and Encounter for therapeutic drug level monitoring Z51.81 [facility] [id number] [place] [address] Aug, Epigastric pain R10.13 and Gastro-esophageal reflux disease without esophagitis K21.9 [facility] [id number] [place] [address] Aug, [facility] [id number] [place] [address] Aug, Epigastric pain R10.13 [facility] [id number] [place] [address] Aug, Fibromyalgia M79.7 [facility] [address] [address] Aug, [place] [id number] [place] [address] 14 Aug, 2017 Generalized anxiety disorder F41.1 and Mild episode of recurrent major depressive disorder F33.0 [place] [id number] [place] [address] 08 Aug, 2017 Epigastric pain R10.13 ; Reflex sympathetic dystrophy G90.50 and Arthritis M19.90 [place] [address] [place] [address] Jul, Generalized anxiety disorder F41.1 and Mild episode of recurrent major depressive disorder F33.0 [place] [address] [address] Jul, BMI 40.0-44.9, adult Z68.41 ; Mild episode of recurrent major depressive disorder F33.0 and Generalized anxiety disorder F41.1 [place] [id number] [place] [address] Jul, Fibromyalgia M79.7 [place] [address] [address] Jun, Mild episode of recurrent major depressive disorder F33.0 and Generalized anxiety disorder F41.1 [place] [id number] [place] [address] Jun, Fibromyalgia M79.7 [place] [id number] [place] [address] Jun, Generalized anxiety disorder F41.1 and Mild episode of recurrent major depressive disorder F33.0 [place] [id number] [place] [address] Jun, Generalized anxiety disorder F41.1 and Mild episode of recurrent major depressive disorder F33.0 [place] [id number] [place] [address] Jun, Generalized anxiety disorder F41.1 and Mild episode of recurrent major depressive disorder F33.0 [facility] [address], [place] [address] Jun, [facility] [address] [place] [address] Jun, Generalized anxiety disorder F41.1 and Mild episode of recurrent major depressive disorder F33.0 [facility] [id number] [place] [address] May, Fibromyalgia M79.7 [facility] [address] [place] [address] May, Generalized anxiety disorder F41.1 and Mild episode of recurrent major depressive disorder F33.0 [facility] [address] [place] [address] May, Mixed hyperlipidemia E78.2 ; Arthritis M19.90 ; Reactive depression F32.9 and Hypothyroidism, unspecified type E03.9 [facility] [address] [place] [address] May, Arthritis M19.90 ; Reactive depression F32.9 ; Mixed hyperlipidemia E78.2 and Hypothyroidism, unspecified type E03.9 [facility] [address], [place] [address] Apr, Fibromyalgia M79.7 [facility] [address] [place] [address] Apr, [facility] [address], [place] [address] Apr, Fibromyalgia M79.7 [facility] [id number] [place] [address] Mar, Fibromyalgia M79.7 [facility] [id number] [place] [address] Mar, [facility] [id number] [place] [address] Mar, Fibromyalgia M79.7 [facility] [id number] [place] [address] Mar, [facility] [address] [address] Feb, Reflex sympathetic dystrophy G90.50 ; Right arm pain M79.601 and Fibromyalgia M79.7 [facility] [address] [address] Feb, [facility] [address] [address] Feb, Anxiety F41.9 [facility] [address] [address] Feb, Fibromyalgia M79.7 [facility] [address] [address] Feb, [facility] [id number] [place] [address] Feb, [facility] [address] [address] Jan, Temporal headache R51 [facility] [id number] [place] [address] Jan, Fibromyalgia M79.7 [facility] [address] [address] Dec, Fibromyalgia M79.7 [facility] [address] [place] [address] Nov, Peroneal tendonitis, unspecified laterality M76.70 and Plantar fasciitis, bilateral M72.2 [facility] [address] [place] [address] Nov, Fibromyalgia M79.7 [facility] [address] [address] October, Fibromyalgia M79.7 [place] [address] [place] [address] October, Plantar fasciitis, bilateral M72.2 and Peroneal tendonitis, unspecified laterality M76.70 [place] [address] [place] [address] October, Fibromyalgia M79.7 [place] [address] [address] Sep, Anxiety F41.9 [place] [address] [address] Aug, Anxiety F41.9 and Adjustment disorder with anxiety F43.22 [place] [address] [address] Aug, Pain of left foot M79.672 [place] [address] [address] Aug, Pain of left foot M79.672 and Pain in right foot M79.671 [place] [address] [address] Aug, Arthritis M19.90 ; Reactive depression F32.9 ; Fibromyalgia M79.7 ; Rosacea L71.9 ; Pain in right foot M79.671 and Pain of left foot M79.672 [place] [address] [place] [address] Aug, Anxiety F41.9 ; Adjustment disorder with anxiety F43.22 and Reactive depression F32.9 [place] [address] [address] Aug, Right elbow pain M25.521 [place] [address] [address] Aug, Plantar wart of right foot B07.0 and Actinic keratosis L57.0 [place] [address] [address] Aug, Fibromyalgia M79.7 [place] [address] [address] Jul, Arthritis M19.90 ; Hypothyroidism, unspecified type E03.9 ; Reactive depression F32.9 and Venous insufficiency I87.2 [place] [address] [address] Jul, Gastroesophageal reflux disease, esophagitis presence not specified K21.9 [place] [address] [address] Jul, Reflex sympathetic dystrophy G90.50 [place] [address] [address] Jul, Anxiety F41.9 ; Adjustment disorder with anxiety F43.22 and Reactive depression F32.9 [place] [address] [address] Jul, [place] [address] [address] Jul, Right elbow pain M25.521 [place] [address] [address] Jun, Fibromyalgia M79.7 [place] [address] [address] Jun, Anxiety F41.9 ; Adjustment disorder with anxiety F43.22 and Reactive depression F32.9 [place] [address] [address] Jun, [place] [address] [address] Jun, Atypical chest pain R07.89 and Adjustment disorder with anxiety F43.22 [place] [address] [id number] Jun, Chest pain, unspecified type R07.9 [facility] [id number] [place] [address] Jun, Fibromyalgia M79.7 [facility] [id number] [place] [address] May, Anxiety F41.9 [facility] [address] [address] May, [facility] [address] [address] May, Right elbow pain M25.521 [facility] [id number] [place] [address] Apr, Reflex sympathetic dystrophy G90.50 and Encounter for immunization Z23 [facility] [address] [address] Apr, [facility] [address] [address] Mar, [facility] [address] [address] Feb, [facility] [id number] [place] [address] Feb, [facility] [id number] [place] [address] Jan, [facility] [id number] [place] [address] Jan, Right elbow pain M25.521 and Right wrist pain M25.531 [facility] [id number] [place] [address] Jan, [facility] [id number] [place] [address] Dec, Seborrheic keratoses L82.1 [place] [address], [place] [address] Dec, [facility] [id number] [place] [address] Dec, [facility] [address] [address] Dec, [facility] [id number] [place] [address] Dec, Fibromyalgia M79.7 and Hypothyroidism, unspecified type E03.9 [facility] [id number] [place] [address] Dec, Seborrheic keratoses L82.1 [facility] [id number] [place] [address] Dec, [facility] [id number] [place] [address] Dec, [facility] [id number] [place] [address] Nov, Sebaceous cyst L72.3 [facility] [id number] [place] [address] October, Breast cancer screening Z12.39 [facility] [address], [place] [address] October, Fibromyalgia M79.7 ; Hypothyroidism, unspecified type E03.9 and Reflex sympathetic dystrophy G90.50 [facility] [id number], [place] [address] October, Reflex sympathetic dystrophy G90.50 ; Fibromyalgia M79.7 and Hypothyroidism, unspecified type E03.9 IMMUNIZATIONS No Known Immunizations SOCIAL HISTORY Never Assessed REASON FOR VISIT f/u PLAN OF CARE Activity Details Follow Up Next available Reason:anxiety & depression VITAL SIGNS MEDICATIONS Unknown Medications RESULTS No Results PROCEDURES Procedure Date Ordered Result Body Site [facility] VISIT MENTAL HEALTH ESTAB PT May 22, 2018 Psychotherapy, patient and family, 45 minutes, established patient May 22, 2018 INSTRUCTIONS MEDICATIONS ADMINISTERED No Known Medications [...]
--- OUTSIDE RECORDS SUMMARY | 2018-11-16 13:01 | XMS REPORT ---
Author Author JOE BAI [facility] Address [address] [place] [address] Care Team Providers Care Insulator Helper Name Role Phone JOE BAI Unavailable PROBLEMS Type Condition ICD9-CM Code NMJ78-IZ Code Onset Dates Condition Status SNOMED Code Problem Gastroesophageal reflux disease, esophagitis presence not specified K21.9 Active 789023174 Problem Rosacea L71.9 Active 921114575 Problem Plantar wart of right foot B07.0 Active 16971458 Problem Age-related osteoporosis without current pathological fracture M81.0 Active 28482591 Problem Internal derangement of right knee M23.91 Active 990482488971107 Problem Generalized anxiety disorder F41.1 Active 12215679 Problem Mixed hyperlipidemia E78.2 Active 895933600 Problem Abnormal laboratory test R89.9 Active 414789503 Problem Mild episode of recurrent major depressive disorder F33.0 Active 007774838 Problem Hypothyroidism, unspecified type E03.9 Active 75542880 Problem Reflex sympathetic dystrophy G90.50 Active 23276286 Problem Right wrist pain M25.531 Active 07862670 Problem Venous insufficiency I87.2 Active 50784892 Problem Fibromyalgia M79.7 Active 318263472 Problem Arthritis M19.90 Active 8783113 Problem Right elbow pain M25.521 Active 04837448 Problem Reactive depression F32.9 Active 38103991 ALLERGIES No Information ENCOUNTERS Encounter Location Date Diagnosis [facility] [id number] [address] Aug, [facility] [address] [address] May, [facility] [address] [address] May, [facility] [id number] [place] [address] May, [facility] [id number] [place] [address] Apr, Fibromyalgia M79.7 [facility] [id number] [place] [address] Apr, [facility] [id number] [place] [address] Apr, [facility] [id number] [place] [address] Apr, Generalized anxiety disorder F41.1 and Mild episode of recurrent major depressive disorder F33.0 [facility] [id number] [place] [address] Apr, Generalized anxiety disorder F41.1 and Mild episode of recurrent major depressive disorder F33.0 [facility] [id number] [place] [address] Apr, Fibromyalgia M79.7 [facility] [id number] [place] [address] Apr, Generalized anxiety disorder F41.1 and Mild episode of recurrent major depressive disorder F33.0 [facility] [id number] [place] [address] Mar, [facility] [address] [place] [address] Mar, Age-related osteoporosis without current pathological fracture M81.0 ; Encounter for immunization Z23 and BMI 40.0-44.9, adult Z68.41 [facility] [id number] [place] [address] Mar, Generalized anxiety disorder F41.1 and Mild episode of recurrent major depressive disorder F33.0 [facility] [id number] [place] [address] Mar, Fibromyalgia M79.7 [facility] [id number] [address] 08 Mar, 2018 Generalized anxiety disorder F41.1 and Mild episode of recurrent major depressive disorder F33.0 [facility] [id number] [place] [address] 24 Feb, 2018 Generalized anxiety disorder F41.1 and Mild episode of recurrent major depressive disorder F33.0 [facility] [id number] [place] [address] 13 Feb, 2018 Fibromyalgia M79.7 [facility] [id number] [place] [address] 10 Feb, 2018 Generalized anxiety disorder F41.1 and Mild episode of recurrent major depressive disorder F33.0 [facility] [id number] [place] [address] Feb, [facility] [id number] [place] [address] Feb, Bronchospasm J98.01 and Arthritis M19.90 [facility] [id number] [place] [address] Jan, Medicare annual wellness visit, initial Z00.00 ; Reactive depression F32.9 ; Reflex sympathetic dystrophy G90.50 ; Fibromyalgia M79.7 ; BMI 40.0- 44.9, adult Z68.41 ; Hypothyroidism, unspecified type E03.9 ; Gastroesophageal reflux disease, esophagitis presence not specified K21.9 ; Family history of osteoporosis Z82.62 ; Venous insufficiency I87.2 ; Arthritis M19.90 ; Mixed hyperlipidemia E78.2 and Generalized anxiety disorder F41.1 [address] [address] [place] [address] Jan, Generalized anxiety disorder F41.1 and Mild episode of recurrent major depressive disorder F33.0 [facility] [address] [place] [address] Jan, Mild episode of recurrent major depressive disorder F33.0 and Generalized anxiety disorder F41.1 [facility] [id number] [place] [address] Jan, Fibromyalgia M79.7 [facility] [address] [address] Jan, Bronchospasm J98.01 [facility] [id number] [place] [address] Jan, [facility] [address] [address] Jan, Generalized anxiety disorder F41.1 and Mild episode of recurrent major depressive disorder F33.0 [facility] [address] [address] Jan, Bronchitis J40 [facility] [id number] [place] [address] Dec, Mild episode of recurrent major depressive disorder F33.0 [facility] [id number] [place] [address] Dec, Generalized anxiety disorder F41.1 and Mild episode of recurrent major depressive disorder F33.0 [facility] [id number] [place] [address] Dec, Fibromyalgia M79.7 ; Arthritis M19.90 and Generalized anxiety disorder F41.1 [facility] [id number] [place] [address] Dec, Mild episode of recurrent major depressive disorder F33.0 and Generalized anxiety disorder F41.1 [facility] [id number] [place] [address] Dec, Fibromyalgia M79.7 [facility] [id number] [place] [address] Dec, Bronchitis J40 and Internal derangement of right knee M23.91 [facility] [id number] [place] [address] Dec, Cough R05 [facility] [address], [place] [address] Dec, Generalized anxiety disorder F41.1 and Mild episode of recurrent major depressive disorder F33.0 [facility] [address], [place] [address] Dec, [facility] [address], [place] [address] Dec, [facility] [id number] [place] [address] Dec, Mild episode of recurrent major depressive disorder F33.0 and Generalized anxiety disorder F41.1 [facility] [id number] [place] [address] Nov, [facility] [id number] [place] [address] Nov, [facility] [id number] [place] [address] Nov, [facility] [id number] [place] [address] Nov, Internal derangement of right knee M23.91 [facility] [address], [place] [address] Nov, Generalized anxiety disorder F41.1 and Mild episode of recurrent major depressive disorder F33.0 [facility] [address], [place] [address] Nov, Internal derangement of right knee M23.91 [facility] [address], [place] [address] Nov, Acute right ankle pain M25.571 ; Acute pain of right knee M25.561 ; Acute left-sided low back pain without sciatica M54.5 and Right leg pain M79.604 [facility] [id number] [place] [address] 15 Nov, 2017 [facility] [id number] [place] [address] 14 Nov, 2017 Fibromyalgia M79.7 [facility] [id number] [place] [address] Nov, Generalized anxiety disorder F41.1 and Mild episode of recurrent major depressive disorder F33.0 [facility] [id number] [place] [address] Nov, [facility] [id number] [place] [address] October, Generalized anxiety disorder F41.1 and Mild episode of recurrent major depressive disorder F33.0 [facility] [id number] [place] [address] October, Fibromyalgia M79.7 [facility] [id number] [place] [address] October, [facility] [id number] [place] [phone] October, Generalized anxiety disorder F41.1 and Mild episode of recurrent major depressive disorder F33.0 [facility] [id number] [place] [address] October, [facility] [id number] [place] [address] Sep, Gastroesophageal reflux disease, esophagitis presence not specified K21.9 and Abnormal laboratory test R89.9 [facility] [id number] [place] [address] Sep, Fibromyalgia M79.7 [facility] [id number] [place] [address] Sep, Generalized anxiety disorder F41.1 and Mild episode of recurrent major depressive disorder F33.0 [facility] [id number] [place] [address] Sep, Epigastric pain R10.13 [facility] [id number] [place] [address] 10 Sep, 2017 Mild episode of recurrent major depressive disorder F33.0 and Generalized anxiety disorder F41.1 [facility] [id number] [place] [address] Sep, Abnormal laboratory test R89.9 [facility] [address] [address] Sep, Generalized anxiety disorder F41.1 and Mild episode of recurrent major depressive disorder F33.0 [facility] [address] [address] 29 Aug, 2017 Epigastric pain R10.13 and Encounter for therapeutic drug level monitoring Z51.81 [facility] [id number] [place] [address] Aug, Epigastric pain R10.13 and Gastro-esophageal reflux disease without esophagitis K21.9 [facility] [id number] [place] [address] 22 Aug, 2017 [facility] [address] [address] 21 Aug, 2017 Epigastric pain R10.13 [facility] [id number] [place] [address] Aug, Fibromyalgia M79.7 [facility] [id number] [place] [address] 14 Aug, 2017 [facility] [id number] [place] [address] 14 Aug, 2017 Generalized anxiety disorder F41.1 and Mild episode of recurrent major depressive disorder F33.0 [facility] [id number] [place] [address] 08 Aug, 2017 Epigastric pain R10.13 ; Reflex sympathetic dystrophy G90.50 and Arthritis M19.90 [facility] [address] [place] [address] 28 Jul, 2017 Generalized anxiety disorder F41.1 and Mild episode of recurrent major depressive disorder F33.0 [facility] [id number] [place] [address] Jul, BMI 40.0-44.9, adult Z68.41 ; Mild episode of recurrent major depressive disorder F33.0 and Generalized anxiety disorder F41.1 [facility] [id number] [place] [address] Jul, Fibromyalgia M79.7 [facility] [id number] [place] [address] Jun, Mild episode of recurrent major depressive disorder F33.0 and Generalized anxiety disorder F41.1 [facility] [id number] [place] [address] Jun, Fibromyalgia M79.7 [facility] [id number] [place] [address] Jun, Generalized anxiety disorder F41.1 and Mild episode of recurrent major depressive disorder F33.0 [facility] [id number] [place] [address] Jun, Generalized anxiety disorder F41.1 and Mild episode of recurrent major depressive disorder F33.0 [facility] [id number] [place] [address] Jun, Generalized anxiety disorder F41.1 and Mild episode of recurrent major depressive disorder F33.0 [facility] [id number] [place] [address] Jun, [facility] [id number] [place] [address] Jun, Generalized anxiety disorder F41.1 and Mild episode of recurrent major depressive disorder F33.0 [facility] [id number] [place] [address] May, Fibromyalgia M79.7 [facility] [id number] [place] [address] May, Generalized anxiety disorder F41.1 and Mild episode of recurrent major depressive disorder F33.0 [facility] [id number] [place] [address] May, Mixed hyperlipidemia E78.2 ; Arthritis M19.90 ; Reactive depression F32.9 and Hypothyroidism, unspecified type E03.9 [facility] [id number] [place] [address] May, Arthritis M19.90 ; Reactive depression F32.9 ; Mixed hyperlipidemia E78.2 and Hypothyroidism, unspecified type E03.9 [facility] [id number] [place] [address] Apr, Fibromyalgia M79.7 [facility] [id number] [place] [address] Apr, [facility] [id number] [place] [address] Apr, Fibromyalgia M79.7 [facility] [id number] [place] [address] Mar, Fibromyalgia M79.7 [facility] [id number] [place] [address] Mar, [facility] [id number] [place] [address] Mar, Fibromyalgia M79.7 [facility] [id number] [place] [address] Mar, [facility] [id number] [place] [address] Feb, Reflex sympathetic dystrophy G90.50 ; Right arm pain M79.601 and Fibromyalgia M79.7 [facility] [id number], [place] [address] Feb, [facility] [id number] [place] [address] Feb, Anxiety F41.9 [facility] [id number] [place] [address] Feb, Fibromyalgia M79.7 [facility] [id number] [place] [address] Feb, [facility] [id number] [place] [address] Feb, [facility] [id number] [place] [address] Jan, Temporal headache R51 [facility] [id number] [place] [address] Jan, Fibromyalgia M79.7 [facility] [id number] [place] [address] Dec, Fibromyalgia M79.7 [facility] [id number] [place] [address] Nov, Peroneal tendonitis, unspecified laterality M76.70 and Plantar fasciitis, bilateral M72.2 [facility] [address] [place] [address] Nov, Fibromyalgia M79.7 [facility] [id number] [place] [address] October, Fibromyalgia M79.7 [facility] [id number] [place] [address] October, Plantar fasciitis, bilateral M72.2 and Peroneal tendonitis, unspecified laterality M76.70 [facility] [id number] [place] [address] October, Fibromyalgia M79.7 [facility] [id number] [place] [address] Sep, Anxiety F41.9 [facility] [address] [address] Aug, Anxiety F41.9 and Adjustment disorder with anxiety F43.22 [facility] [address] [address] Aug, Pain of left foot M79.672 [facility] [address] [address] Aug, Pain of left foot M79.672 and Pain in right foot M79.671 [facility] [address] [address] Aug, Arthritis M19.90 ; Reactive depression F32.9 ; Fibromyalgia M79.7 ; Rosacea L71.9 ; Pain in right foot M79.671 and Pain of left foot M79.672 [facility] [address] [address] Aug, Anxiety F41.9 ; Adjustment disorder with anxiety F43.22 and Reactive depression F32.9 [facility] [address] [address] Aug, Right elbow pain M25.521 [facility] [address] [address] Aug, Plantar wart of right foot B07.0 and Actinic keratosis L57.0 [facility] [address] [address] Aug, Fibromyalgia M79.7 [facility] [address] [address] Jul, Arthritis M19.90 ; Hypothyroidism, unspecified type E03.9 ; Reactive depression F32.9 and Venous insufficiency I87.2 [facility] [address] [address] Jul, Gastroesophageal reflux disease, esophagitis presence not specified K21.9 [facility] [address] [address] 17 Jul, 2016 Reflex sympathetic dystrophy G90.50 [facility] [address] [address] 17 Jul, 2016 Anxiety F41.9 ; Adjustment disorder with anxiety F43.22 and Reactive depression F32.9 [facility] [address] [address] 15 Jul, 2016 [facility] [address] [address] Jul, Right elbow pain M25.521 [facility] [address] [address] Jun, Fibromyalgia M79.7 [facility] [address] [address] Jun, Anxiety F41.9 ; Adjustment disorder with anxiety F43.22 and Reactive depression F32.9 [facility] [address] [address] Jun, [facility] [address] [address] Jun, Atypical chest pain R07.89 and Adjustment disorder with anxiety F43.22 [facility] [address] [id number] Jun, Chest pain, unspecified type R07.9 [facility] [address] [address] Jun, Fibromyalgia M79.7 [facility] [address] [address] May, Anxiety F41.9 [facility] [address] [address] 14 May, 2016 [facility] [id number] [place] [address] May, Right elbow pain M25.521 [facility] [id number] [place] [address] Apr, Reflex sympathetic dystrophy G90.50 and Encounter for immunization Z23 [facility] [address] [address] Apr, [facility] [id number] [place] [address] Mar, [facility] [id number] [place] [address] Feb, [facility] [id number] [place] [address] Feb, [facility] [id number] [place] [address] Jan, [facility] [id number] [place] [address] Jan, Right elbow pain M25.521 and Right wrist pain M25.531 [facility] [id number] [place] [address] Jan, [facility] [id number] [place] [address] Dec, Seborrheic keratoses L82.1 [facility] [id number] [place] [address] Dec, [facility] [id number] [place] [address] Dec, [facility] [id number] [place] [address] Dec, [facility] [id number] [place] [address] Dec, Fibromyalgia M79.7 and Hypothyroidism, unspecified type E03.9 [place] [id number] [place] [id number] Dec, Seborrheic keratoses L82.1 [place] [address] [place] [id number] [place] [phone] Dec, [place] [address] [place] [address] [id number] [place] [phone] Dec, [place] [address] [place] [id number] [place] [phone] Nov, Sebaceous cyst L72.3 [place] [address] [place] [id number] [place] [phone] October, Breast cancer screening Z12.39 [place] [address] [place] [id number] [place] [phone] October, Fibromyalgia M79.7 ; Hypothyroidism, unspecified type E03.9 and Reflex sympathetic dystrophy G90.50 [place] [address] [place] [address] [id number] [place] [phone] October, Reflex sympathetic dystrophy G90.50 ; Fibromyalgia [...]
--- OUTSIDE RECORDS SUMMARY | 2018-11-16 13:02 | XMS REPORT ---
Author Author JOE BAI [facility] Address [address] [place] [address] Care Team Providers Care Pumper Gager Name Role Phone JOE BAI Unavailable PROBLEMS Type Condition ICD9-CM Code TXR68-UK Code Onset Dates Condition Status SNOMED Code Problem Gastroesophageal reflux disease, esophagitis presence not specified K21.9 Active 001157906 Problem Rosacea L71.9 Active 837050449 Problem Plantar wart of right foot B07.0 Active 90459065 Problem Age-related osteoporosis without current pathological fracture M81.0 Active 11516402 Problem Internal derangement of right knee M23.91 Active 082941516410235 Problem Generalized anxiety disorder F41.1 Active 31998325 Problem Mixed hyperlipidemia E78.2 Active 482470998 Problem Abnormal laboratory test R89.9 Active 197153781 Problem Mild episode of recurrent major depressive disorder F33.0 Active 356427448 Problem Hypothyroidism, unspecified type E03.9 Active 52017158 Problem Reflex sympathetic dystrophy G90.50 Active 00502820 Problem Right wrist pain M25.531 Active 04435662 Problem Venous insufficiency I87.2 Active 37618487 Problem Fibromyalgia M79.7 Active 353539977 Problem Arthritis M19.90 Active 8555607 Problem Right elbow pain M25.521 Active 96550191 Problem Reactive depression F32.9 Active 86863414 ALLERGIES No Information ENCOUNTERS Encounter Location Date Diagnosis [facility] [id number] [address] Aug, [facility] [address] [address] May, [facility] [address] [address] May, [facility] [address] [place] [address] May, [facility] [address] [place] [address] Apr, Fibromyalgia M79.7 [facility] [address] [place] [address] Apr, [facility] [id number] [place] [address] Apr, [facility] [id number] [place] [address] Apr, Generalized anxiety disorder F41.1 and Mild episode of recurrent major depressive disorder F33.0 [facility] [id number] [place] [address] Apr, Generalized anxiety disorder F41.1 and Mild episode of recurrent major depressive disorder F33.0 [facility] [id number] [place] [address] Apr, Fibromyalgia M79.7 [facility] [id number] [place] [address] Apr, Generalized anxiety disorder F41.1 and Mild episode of recurrent major depressive disorder F33.0 [facility] [address] [place] [address] Mar, [facility] [address] [place] [address] Mar, Age-related osteoporosis without current pathological fracture M81.0 ; Encounter for immunization Z23 and BMI 40.0-44.9, adult Z68.41 [facility] [id number] [place] [address] Mar, Generalized anxiety disorder F41.1 and Mild episode of recurrent major depressive disorder F33.0 [facility] [address] [place] [address] Mar, Fibromyalgia M79.7 [facility] [id number] [address] 08 Mar, 2018 Generalized anxiety disorder F41.1 and Mild episode of recurrent major depressive disorder F33.0 [facility] [facility] [id number] [place] [address] 24 Feb, 2018 Generalized anxiety disorder F41.1 and Mild episode of recurrent major depressive disorder F33.0 [place] [facility] [id number] [place] [address] 13 Feb, 2018 Fibromyalgia M79.7 [place] [id number] [place] [address] 10 Feb, 2018 Generalized anxiety disorder F41.1 and Mild episode of recurrent major depressive disorder F33.0 [place] [id number] [place] [address] Feb, [place] [facility] [id number] [place] [address] Feb, Bronchospasm J98.01 and Arthritis M19.90 [place] [id number] [place] [address] Jan, Medicare annual wellness visit, initial Z00.00 ; Reactive depression F32.9 ; Reflex sympathetic dystrophy G90.50 ; Fibromyalgia M79.7 ; BMI 40.0- 44.9, adult Z68.41 ; Hypothyroidism, unspecified type E03.9 ; Gastroesophageal reflux disease, esophagitis presence not specified K21.9 ; Family history of osteoporosis Z82.62 ; Venous insufficiency I87.2 ; Arthritis M19.90 ; Mixed hyperlipidemia E78.2 and Generalized anxiety disorder F41.1 [place] [address] [place] [address] Jan, Generalized anxiety disorder F41.1 and Mild episode of recurrent major depressive disorder F33.0 [place] [address] [place] [address] Jan, Mild episode of recurrent major depressive disorder F33.0 and Generalized anxiety disorder F41.1 [place] [id number] [place] [address] Jan, Fibromyalgia M79.7 [place] [address] [address] Jan, Bronchospasm J98.01 [facility] [id number] [place] [address] Jan, [facility] [address] [address] Jan, Generalized anxiety disorder F41.1 and Mild episode of recurrent major depressive disorder F33.0 [place] [address] [address] Jan, Bronchitis J40 [place] [id number] [place] [address] Dec, Mild episode of recurrent major depressive disorder F33.0 [place] [id number] [place] [address] Dec, Generalized anxiety disorder F41.1 and Mild episode of recurrent major depressive disorder F33.0 [facility] [id number] [place] [address] Dec, Fibromyalgia M79.7 ; Arthritis M19.90 and Generalized anxiety disorder F41.1 [place] [id number] [place] [address] Dec, Mild episode of recurrent major depressive disorder F33.0 and Generalized anxiety disorder F41.1 [facility] [id number] [place] [address] Dec, Fibromyalgia M79.7 [place] [id number] [place] [address] Dec, Bronchitis J40 and Internal derangement of right knee M23.91 [facility] [id number] [place] [address] Dec, Cough R05 [facility] [address], [place] [address] Dec, Generalized anxiety disorder F41.1 and Mild episode of recurrent major depressive disorder F33.0 [facility] [address], [place] [address] Dec, [facility] [address], [place] [address] Dec, [facility] [id number] [place] [address] Dec, Mild episode of recurrent major depressive disorder F33.0 and Generalized anxiety disorder F41.1 [place] [id number] [place] [address] Nov, [facility] [address] [place] [address] Nov, [facility] [address] [place] [address] Nov, [facility] [address] [place] [address] Nov, Internal derangement of right knee M23.91 [facility] [address], [place] [address] Nov, Generalized anxiety disorder F41.1 and Mild episode of recurrent major depressive disorder F33.0 [facility] [address], [place] [address] Nov, Internal derangement of right knee M23.91 [facility] [address], [place] [address] Nov, Acute right ankle pain M25.571 ; Acute pain of right knee M25.561 ; Acute left-sided low back pain without sciatica M54.5 and Right leg pain M79.604 [facility] [address] [place] [address] 15 Nov, 2017 [facility] [address] [place] [address] 14 Nov, [address] [facility] [address] [place] [address] Nov, Generalized anxiety disorder F41.1 and Mild episode of recurrent major depressive disorder F33.0 [facility] [id number] [place] [address] Nov, [facility] [id number] [place] [address] October, Generalized anxiety disorder F41.1 and Mild episode of recurrent major depressive disorder F33.0 [facility] [id number] [place] [address] October, Fibromyalgia M79.7 [facility] [id number] [place] [address] October, [facility] [id number] [place] [address] October, Generalized anxiety disorder F41.1 and Mild episode of recurrent major depressive disorder F33.0 [facility] [address] [place] [address] October, [facility] [address] [place] [address] Sep, Gastroesophageal reflux disease, esophagitis presence not specified K21.9 and Abnormal laboratory test R89.9 [facility] [address] [place] [address] Sep, Fibromyalgia M79.7 [facility] [id number] [place] [address] Sep, Generalized anxiety disorder F41.1 and Mild episode of recurrent major depressive disorder F33.0 [facility] [id number] [place] [address] Sep, Epigastric pain R10.13 [facility] [id number] [place] [address] 10 Sep, 2017 Mild episode of recurrent major depressive disorder F33.0 and Generalized anxiety disorder F41.1 [facility] [id number] [place] [address] Sep, Abnormal laboratory test R89.9 [facility] [address] [address] Sep, Generalized anxiety disorder F41.1 and Mild episode of recurrent major depressive disorder F33.0 [facility] [address] [address] 29 Aug, 2017 Epigastric pain R10.13 and Encounter for therapeutic drug level monitoring Z51.[address] [facility] [id number] [place] [address] Aug, Epigastric pain R10.13 and Gastro-esophageal reflux disease without esophagitis K21.9 [facility] [id number] [place] [address] 22 Aug, 2017 [facility] [address] [address] 21 Aug, 2017 Epigastric pain R10.13 [place] [id number] [place] [address] Aug, Fibromyalgia M79.7 [facility] [id number] [place] [address] 14 Aug, 2017 [facility] [id number] [place] [address] 14 Aug, 2017 Generalized anxiety disorder F41.1 and Mild episode of recurrent major depressive disorder F33.0 [facility] [id number] [place] [address] 08 Aug, 2017 Epigastric pain R10.13 ; Reflex sympathetic dystrophy G90.[address] [facility] [address] [place] [address] 28 Jul, 2017 Generalized anxiety disorder F41.1 and Mild episode of recurrent major depressive disorder F33.0 [facility] [id number] [place] [address] Jul, BMI 40.0-44.9, adult Z68.41 ; Mild episode of recurrent major depressive disorder F33.0 and Generalized anxiety disorder F41.1 [facility] [id number] [place] [address] Jul, Fibromyalgia M79.7 [facility] [id number] [place] [address] Jun, Mild episode of recurrent major depressive disorder F33.0 and Generalized anxiety disorder F41.1 [place] [id number] [place] [address] Jun, Fibromyalgia M79.7 [facility] [id number] [place] [address] Jun, Generalized anxiety disorder F41.1 and Mild episode of recurrent major depressive disorder F33.0 [facility] [id number] [place] [address] Jun, Generalized anxiety disorder F41.1 and Mild episode of recurrent major depressive disorder F33.0 [facility] [id number] [place] [address] Jun, Generalized anxiety disorder F41.1 and Mild episode of recurrent major depressive disorder F33.0 [place] [id number] [place] [address] Jun, [facility] [id number] [place] [address] Jun, Generalized anxiety disorder F41.1 and Mild episode of recurrent major depressive disorder F33.0 [facility] [id number] [place] [address] May, Fibromyalgia M79.7 [facility] [id number] [place] [address] May, Generalized anxiety disorder F41.1 and Mild episode of recurrent major depressive disorder F33.0 [facility] [id number] [place] [address] May, Mixed hyperlipidemia E78.2 ; Arthritis M19.90 ; Reactive depression F32.9 and Hypothyroidism, unspecified type E03.9 [facility] [id number] [place] [address] May, Arthritis M19.90 ; Reactive depression F32.9 ; Mixed hyperlipidemia E78.2 and Hypothyroidism, unspecified type E03.9 [facility] [id number] [place] [address] Apr, Fibromyalgia M79.7 [facility] [id number] [place] [address] Apr, [facility] [id number] [place] [address] Apr, Fibromyalgia M79.7 [facility] [id number] [place] [address] Mar, Fibromyalgia M79.7 [facility] [id number] [place] [address] Mar, [facility] [id number] [place] [address] Mar, Fibromyalgia M79.7 [facility] [id number] [place] [address] Mar, [facility] [id number] [place] [address] Feb, Reflex sympathetic dystrophy G90.50 ; Right arm pain M79.[address] [facility] [address], [place] [address] Feb, [facility] [id number] [place] [address] Feb, Anxiety F41.9 [facility] [id number] [place] [address] Feb, Fibromyalgia M79.7 [facility] [id number] [place] [address] Feb, [facility] [id number] [place] [address] Feb, [facility] [id number] [place] [address] Jan, Temporal headache R51 [facility] [id number] [place] [address] Jan, Fibromyalgia M79.7 [facility] [id number] [place] [address] Dec, Fibromyalgia M79.7 [facility] [id number] [place] [address] Nov, Peroneal tendonitis, unspecified laterality M76.70 and Plantar fasciitis, bilateral M72.2 [facility] [address] [place] [address] Nov, Fibromyalgia M79.7 [facility] [id number] [place] [address] October, Fibromyalgia M79.7 [facility] [id number] [place] [address] October, Plantar fasciitis, bilateral M72.2 and Peroneal tendonitis, unspecified laterality M76.70 [facility] [address] [place] [address] October, Fibromyalgia M79.7 [facility] [id number] [place] [address] Sep, Anxiety F41.9 [place] [address] [address] Aug, Anxiety F41.9 and Adjustment disorder with anxiety F43.22 [place] [address] [address] Aug, Pain of left foot M79.672 [place] [address] [address] Aug, Pain of left foot M79.672 and Pain in right foot M79.671 [place] [address] [address] Aug, Arthritis M19.90 ; Reactive depression F32.9 ; Fibromyalgia M79.7 ; Rosacea L71.9 ; Pain in right foot M79.671 and Pain of left foot M79.672 [place] [address] [address] Aug, Anxiety F41.9 ; Adjustment disorder with anxiety F43.22 and Reactive depression F32.9 [place] [address] [address] Aug, Right elbow pain M25.521 [place] [address] [address] Aug, Plantar wart of right foot B07.0 and Actinic keratosis L57.0 [place] [address] [address] Aug, Fibromyalgia M79.7 [place] [address] [address] Jul, Arthritis M19.90 ; Hypothyroidism, unspecified type E03.9 ; Reactive depression F32.9 and Venous insufficiency I87.2 [place] [address] [address] Jul, Gastroesophageal reflux disease, esophagitis presence not specified K21.9 [place] [address] [address] 17 Jul, 2016 Reflex sympathetic dystrophy G90.50 [place] [address] [address] 17 Jul, 2016 Anxiety F41.9 ; Adjustment disorder with anxiety F43.22 and Reactive depression F32.9 [place] [address] [address] 15 Jul, 2016 [place] [address] [address] Jul, Right elbow pain M25.521 [place] [address] [address] Jun, Fibromyalgia M79.7 [place] [address] [address] Jun, Anxiety F41.9 ; Adjustment disorder with anxiety F43.22 and Reactive depression F32.9 [place] [address] [address] Jun, [place] [address] [address] Jun, Atypical chest pain R07.89 and Adjustment disorder with anxiety F43.22 [facility] [address] [id number] Jun, Chest pain, unspecified type R07.9 [place] [address] [address] Jun, Fibromyalgia M79.7 [place] [address] [address] May, Anxiety F41.9 [place] [address] [address] 14 May, 2016 [facility] [id number] [place] [address] May, Right elbow pain M25.521 [facility] [id number] [place] [address] Apr, Reflex sympathetic dystrophy G90.50 and Encounter for immunization Z23 [facility] [address] [address] Apr, [facility] [id number] [place] [address] Mar, [facility] [id number] [place] [address] Feb, [facility] [id number] [place] [phone] Feb, [facility] [id number] [place] [id number] Jan, [facility] [id number] [place] [id number] Jan, Right elbow pain M25.521 and Right wrist pain M25.531 [facility] [id number] [place] [id number] Jan, [facility] [id number] [place] [id number] Dec, Seborrheic keratoses L82.1 [facility] [id number] [place] [phone] Dec, [facility] [id number] [place] [phone] Dec, [facility] [id number] [place] [phone] Dec, [facility] [id number] [place] [phone] Dec, Fibromyalgia M79.7 and Hypothyroidism, unspecified type E03.9 [place] [id number] [place] [phone] Dec, Seborrheic keratoses L82.1 [place] [id number] [place] [phone] Dec, [place] [address] [id number] [place] [address] Dec, [place] [id number] [place] [address] Nov, Sebaceous cyst L72.3 [place] [id number] [place] [address] October, Breast cancer screening Z12.39 [place] [id number] [place] [address] October, Fibromyalgia M79.7 ; Hypothyroidism, unspecified type E03.9 and Reflex sympathetic dystrophy G90.50 [place] [id number] [place] [address] October, Reflex sympathetic dystrophy G90.50 ; Fibromyalgia M79.7 and Hypothyroidism, unspecified type E03.9 IMMUNIZATIONS No Known Immunizations SOCIAL HISTORY Never Assessed REASON FOR VISIT Returned call PLAN OF CARE VITAL SIGNS MEDICATIONS [...]
--- OUTSIDE RECORDS SUMMARY | 2018-11-16 13:02 | XMS REPORT ---
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 Name Role Phone JOE BAI Unavailable PROBLEMS Type Condition ICD9-CM Code WSB32-NQ Code Onset Dates Condition Status SNOMED Code Problem Gastroesophageal reflux disease, esophagitis presence not specified K21.9 Active 416090065 Problem Rosacea L71.9 Active 609592236 Problem Plantar wart of right foot B07.0 Active 88366710 Problem Age-related osteoporosis without current pathological fracture M81.0 Active 13311186 Problem Internal derangement of right knee M23.91 Active 295280761045612 Problem Generalized anxiety disorder F41.1 Active 38891828 Problem Mixed hyperlipidemia E78.2 Active 070228977 Problem Abnormal laboratory test R89.9 Active 051285798 Problem Mild episode of recurrent major depressive disorder F33.0 Active 360331931 Problem Hypothyroidism, unspecified type E03.9 Active 60831671 Problem Reflex sympathetic dystrophy G90.50 Active 30479298 Problem Right wrist pain M25.531 Active 80910452 Problem Venous insufficiency I87.2 Active 27630804 Problem Fibromyalgia M79.7 Active 057383551 Problem Arthritis M19.90 Active 8171593 Problem Right elbow pain M25.521 Active 41102413 Problem Reactive depression F32.9 Active 50669813 ALLERGIES No Information ENCOUNTERS Encounter Location Date Diagnosis [facility] [id number] [address] Aug, [facility] [address] [address] May, [facility] [address] [address] May, [facility] [address] [place] [address] May, [facility] [address] [address] Apr, [facility] [address] [place] [address] Apr, Generalized anxiety disorder F41.1 and Mild episode of recurrent major depressive disorder F33.0 [facility] [id number] [place] [address] Apr, Generalized anxiety disorder F41.1 and Mild episode of recurrent major depressive disorder F33.0 [facility] [id number] [place] [address] Apr, Fibromyalgia M79.7 [facility] [id number] [place] [address] Apr, Generalized anxiety disorder F41.1 and Mild episode of recurrent major depressive disorder F33.0 [facility] [address] [place] [address] Mar, [facility] [id number] [place] [address] Mar, Age-related osteoporosis without current pathological fracture M81.0 ; Encounter for immunization Z23 and BMI 40.0-44.9, adult Z68.41 [facility] [address] [place] [address] Mar, Generalized anxiety disorder F41.1 and Mild episode of recurrent major depressive disorder F33.0 [facility] [address] [address] Mar, Fibromyalgia M79.7 [facility] [id number] [place] [address] Mar, Generalized anxiety disorder F41.1 and Mild episode of recurrent major depressive disorder F33.0 [facility] [address] [place] [address] Feb, Generalized anxiety disorder F41.1 and Mild episode of recurrent major depressive disorder F33.0 [place] [address] [address] 13 Feb, 2018 Fibromyalgia M79.7 [place] [address] [address] 10 Feb, 2018 Generalized anxiety disorder F41.1 and Mild episode of recurrent major depressive disorder F33.0 [place] [id number] [place] [address] 06 Feb, 2018 [place] [id number] [place] [address] Feb, Bronchospasm J98.01 and Arthritis M19.90 [place] [id number] [place] [address] Jan, Medicare annual wellness visit, initial Z00.00 ; Reactive depression F32.9 ; Reflex sympathetic dystrophy G90.50 ; Fibromyalgia M79.7 ; BMI 40.0- 44.9, adult Z68.41 ; Hypothyroidism, unspecified type E03.9 ; Gastroesophageal reflux disease, esophagitis presence not specified K21.9 ; Family history of osteoporosis Z82.62 ; Venous insufficiency I87.2 ; Arthritis M19.90 ; Mixed hyperlipidemia E78.2 and Generalized anxiety disorder F41.1 [place] [address] [address] Jan, Generalized anxiety disorder F41.1 and Mild episode of recurrent major depressive disorder F33.0 [place] [address] [address] Jan, Mild episode of recurrent major depressive disorder F33.0 and Generalized anxiety disorder F41.1 [place] [address] [address] Jan, Fibromyalgia M79.7 [place] [address] [address] Jan, Bronchospasm J98.01 [facility] [id number] [place] [address] Jan, [facility] [address] [address] Jan, Generalized anxiety disorder F41.1 and Mild episode of recurrent major depressive disorder F33.0 [place] [address] [address] Jan, Bronchitis J40 [facility] [address] [address] Dec, Mild episode of recurrent major depressive disorder F33.0 [place] [address] [address] Dec, Generalized anxiety disorder F41.1 and Mild episode of recurrent major depressive disorder F33.0 [place] [address] [address] Dec, Fibromyalgia M79.7 ; Arthritis M19.90 and Generalized anxiety disorder F41.1 [place] [address] [address] Dec, Mild episode of recurrent major depressive disorder F33.0 and Generalized anxiety disorder F41.1 [place] [id number] [place] [address] Dec, Fibromyalgia M79.7 [facility] [id number] [place] [address] Dec, Bronchitis J40 and Internal derangement of right knee M23.91 [facility] [id number] [place] [address] Dec, Cough R05 [facility] [id number] [place] [address] Dec, Generalized anxiety disorder F41.1 and Mild episode of recurrent major depressive disorder F33.0 [facility] [address] [address] Dec, [facility] [address], [place] [address] Dec, [facility] [id number] [place] [address] Dec, Mild episode of recurrent major depressive disorder F33.0 and Generalized anxiety disorder F41.1 [facility] [id number] [place] [address] 30 Nov, 2017 [facility] [address] [place] [address] Nov, [facility] [id number] [place] [address] Nov, [facility] [id number] [place] [address] Nov, Internal derangement of right knee M23.91 [facility] [id number] [place] [address] Nov, Generalized anxiety disorder F41.1 and Mild episode of recurrent major depressive disorder F33.0 [facility] [address] [place] [address] Nov, Internal derangement of right knee M23.91 [facility] [address] [place] [address] Nov, Acute right ankle pain M25.571 ; Acute pain of right knee M25.561 ; Acute left-sided low back pain without sciatica M54.5 and Right leg pain M79.604 [facility] [id number] [place] [address] 15 Nov, 2017 [facility] [id number] [place] [address] 14 Nov, 2017 Fibromyalgia M79.7 [facility] [id number] [place] [address] Nov, Generalized anxiety disorder F41.1 and Mild episode of recurrent major depressive disorder F33.0 [facility] [id number] [place] [address] Nov, [facility] [id number] [place] [address] October, Generalized anxiety disorder F41.1 and Mild episode of recurrent major depressive disorder F33.0 [facility] [id number] [place] [address] October, Fibromyalgia M79.7 [facility] [id number] [place] [address] October, [facility] [id number] [place] [address] October, Generalized anxiety disorder F41.1 and Mild episode of recurrent major depressive disorder F33.0 [place] [id number] [place] [address] October, [facility] [id number] [place] [address] Sep, Gastroesophageal reflux disease, esophagitis presence not specified K21.9 and Abnormal laboratory test R89.9 [place] [id number] [place] [address] Sep, Fibromyalgia M79.7 [facility] [id number] [place] [address] Sep, Generalized anxiety disorder F41.1 and Mild episode of recurrent major depressive disorder F33.0 [place] [id number] [place] [address] Sep, Epigastric pain R10.13 [place] [id number] [place] [address] Sep, Mild episode of recurrent major depressive disorder F33.0 and Generalized anxiety disorder F41.1 [place] [id number] [place] [address] Sep, Abnormal laboratory test R89.9 [place] [address] [address] Sep, Generalized anxiety disorder F41.1 and Mild episode of recurrent major depressive disorder F33.0 [facility] [address] [address] Aug, Epigastric pain R10.13 and Encounter for therapeutic drug level monitoring Z51.81 [facility] [address] [address] Aug, Epigastric pain R10.13 and Gastro-esophageal reflux disease without esophagitis K21.9 [place] [id number] [place] [address] Aug, [place] [address] [address] Aug, Epigastric pain R10.13 [place] [id number] [place] [address] Aug, Fibromyalgia M79.7 [place] [address] [address] 14 Aug, 2017 [place] [id number] [place] [address] Aug, Generalized anxiety disorder F41.1 and Mild episode of recurrent major depressive disorder F33.0 [place] [id number] [place] [address] 08 Aug, 2017 Epigastric pain R10.13 ; Reflex sympathetic dystrophy G90.50 and Arthritis M19.90 [place] [id number] [place] [address] Jul, Generalized anxiety disorder F41.1 and Mild episode of recurrent major depressive disorder F33.0 [place] [id number] [place] [address] Jul, BMI 40.0-44.9, adult Z68.41 ; Mild episode of recurrent major depressive disorder F33.0 and Generalized anxiety disorder F41.1 [facility] [id number] [place] [address] Jul, Fibromyalgia M79.7 [facility] [id number] [place] [address] Jun, Mild episode of recurrent major depressive disorder F33.0 and Generalized anxiety disorder F41.1 [facility] [id number] [place] [address] Jun, Fibromyalgia M79.7 [facility] [id number] [place] [address] Jun, Generalized anxiety disorder F41.1 and Mild episode of recurrent major depressive disorder F33.0 [facility] [id number] [place] [address] Jun, Generalized anxiety disorder F41.1 and Mild episode of recurrent major depressive disorder F33.0 [facility] [id number] [place] [address] Jun, Generalized anxiety disorder F41.1 and Mild episode of recurrent major depressive disorder F33.0 [facility] [id number] [place] [address] Jun, [facility] [id number] [place] [address] Jun, Generalized anxiety disorder F41.1 and Mild episode of recurrent major depressive disorder F33.0 [facility] [id number] [place] [address] May, Fibromyalgia M79.7 [facility] [address] [place] [address] May, Generalized anxiety disorder F41.1 and Mild episode of recurrent major depressive disorder F33.0 [facility] [id number] [place] [address] May, Mixed hyperlipidemia E78.2 ; Arthritis M19.90 ; Reactive depression F32.9 and Hypothyroidism, unspecified type E03.9 [facility] [id number] [place] [address] May, Arthritis M19.90 ; Reactive depression F32.9 ; Mixed hyperlipidemia E78.2 and Hypothyroidism, unspecified type E03.9 [facility] [id number] [place] [address] Apr, Fibromyalgia M79.7 [facility] [address] [address] Apr, [facility] [address] [address] Apr, Fibromyalgia M79.7 [facility] [address] [address] Mar, Fibromyalgia M79.7 [facility] [id number] [place] [address] Mar, [facility] [id number] [place] [address] Mar, Fibromyalgia M79.7 [facility] [id number] [place] [address] Mar, [facility] [id number] [place] [address] Feb, Reflex sympathetic dystrophy G90.50 ; Right arm pain M79.601 and Fibromyalgia M79.7 [facility] [id number] [place] [address] Feb, [facility] [id number] [place] [address] Feb, Anxiety F41.9 [facility] [address] [place] [address] Feb, Fibromyalgia M79.7 [facility] [id number] [place] [address] Feb, [facility] [id number] [place] [address] Feb, [facility] [id number] [place] [address] Jan, Temporal headache R51 [facility] [id number] [place] [address] Jan, Fibromyalgia M79.7 [facility] [id number] [place] [address] Dec, Fibromyalgia M79.7 [facility] [id number] [place] [address] Nov, Peroneal tendonitis, unspecified laterality M76.70 and Plantar fasciitis, bilateral M72.2 [facility] [id number] [place] [address] Nov, Fibromyalgia M79.7 [facility] [id number] [place] [address] October, Fibromyalgia M79.7 [facility] [id number] [place] [address] October, Plantar fasciitis, bilateral M72.2 and Peroneal tendonitis, unspecified laterality M76.70 [facility] [address] [place] [address] October, Fibromyalgia M79.7 [facility] [id number] [place] [address] Sep, Anxiety F41.9 [facility] [id number] [place] [address] Aug, Anxiety F41.9 and Adjustment disorder with anxiety F43.22 [place] [address] [address] Aug, Pain of left foot M79.672 [place] [address] [address] Aug, Pain of left foot M79.672 and Pain in right foot M79.671 [place] [address] [address] Aug, Arthritis M19.90 ; Reactive depression F32.9 ; Fibromyalgia M79.7 ; Rosacea L71.9 ; Pain in right foot M79.671 and Pain of left foot M79.672 [place] [address] [address] Aug, Anxiety F41.9 ; Adjustment disorder with anxiety F43.22 and Reactive depression F32.9 [place] [address] [address] Aug, Right elbow pain M25.521 [place] [address] [address] Aug, Plantar wart of right foot B07.0 and Actinic keratosis L57.0 [place] [address] [address] Aug, Fibromyalgia M79.7 [place] [address] [address] Jul, Arthritis M19.90 ; Hypothyroidism, unspecified type E03.9 ; Reactive depression F32.9 and Venous insufficiency I87.2 [place] [address] [address] Jul, Gastroesophageal reflux disease, esophagitis presence not specified K21.9 [place] [address] [address] Jul, Reflex sympathetic dystrophy G90.50 [facility] [id number] [place] [address] 17 Jul, 2016 Anxiety F41.9 ; Adjustment disorder with anxiety F43.22 and Reactive depression F32.9 [facility] [address] [address] 15 Jul, 2016 [facility] [address] [address] 03 Jul, 2016 Right elbow pain M25.521 [facility] [address] [address] Jun, Fibromyalgia M79.7 [place] [address] [address] Jun, Anxiety F41.9 ; Adjustment disorder with anxiety F43.22 and Reactive depression F32.9 [place] [address] [address] Jun, [facility] [address] [address] Jun, Atypical chest pain R07.89 and Adjustment disorder with anxiety F43.22 [facility] [address] [id number] 16 Jun, 2016 Chest pain, unspecified type R07.9 [facility] [address] [address] Jun, Fibromyalgia M79.7 [facility] [id number] [place] [address] May, Anxiety F41.9 [place] [address] [address] 14 May, 2016 [facility] [address] [address] 13 May, 2016 Right elbow pain M25.521 [facility] [address] [place] [address] Apr, Reflex sympathetic dystrophy G90.50 and Encounter for immunization Z23 [facility] [address] [address] Apr, [facility] [id number] [place] [address] Mar, [facility] [address] [address] Feb, [facility] [address] [address] Feb, [facility] [address] [address] Jan, [facility] [id number] [place] [address] Jan, Right elbow pain M25.521 and Right wrist pain M25.531 [facility] [id number] [place] [address] Jan, [facility] [id number] [place] [address] Dec, Seborrheic keratoses L82.1 [facility] [id number] [place] [address] Dec, [facility] [id number] [place] [address] Dec, [facility] [id number] [place] [address] Dec, [facility] [id number] [place] [address] Dec, Fibromyalgia M79.7 and Hypothyroidism, unspecified type E03.9 [facility] [id number] [place] [address] Dec, Seborrheic keratoses L82.1 [place] [id number] [address] Dec, [place] [address] [place] [address] Dec, [place] [address] [address] Nov, Sebaceous cyst L72.3 [place] [id number] [place] [address] October, Breast cancer screening Z12.39 [place] [address] [place] [address] October, Fibromyalgia M79.7 ; Hypothyroidism, unspecified type E03.9 and Reflex sympathetic dystrophy G90.50 [place] [address] [address] October, Reflex sympathetic dystrophy G90.50 ; Fibromyalgia [...] resection Hospitalization History surgeries Hospitalization History Chest Pain-[facility] 07/02/16 Hospitalization History Chest Pain - [facility] 10/06/17
--- OUTSIDE RECORDS SUMMARY | 2018-11-16 13:03 | XMS REPORT ---
Author Author FRANK CHAPMAN Organization [facility] Address [address] [place] [address] Care Team Providers Care Land Surveyor Manager Name Role Phone FRANK CHAPMAN Unavailable PROBLEMS Type Condition ICD9-CM Code HDO37-AQ Code Onset Dates Condition Status SNOMED Code Problem Gastroesophageal reflux disease, esophagitis presence not specified K21.9 Active 571635529 Problem Rosacea L71.9 Active 795781429 Problem Plantar wart of right foot B07.0 Active 94436369 Problem Age-related osteoporosis without current pathological fracture M81.0 Active 93430878 Problem Internal derangement of right knee M23.91 Active 297723787024717 Problem Generalized anxiety disorder F41.1 Active 33123101 Problem Mixed hyperlipidemia E78.2 Active 814454316 Problem Abnormal laboratory test R89.9 Active 114101004 Problem Mild episode of recurrent major depressive disorder F33.0 Active 971900472 Problem Hypothyroidism, unspecified type E03.9 Active 15659493 Problem Reflex sympathetic dystrophy G90.50 Active 54733550 Problem Right wrist pain M25.531 Active 76580673 Problem Venous insufficiency I87.2 Active 51321906 Problem Fibromyalgia M79.7 Active 420100302 Problem Arthritis M19.90 Active 5957204 Problem Right elbow pain M25.521 Active 38851307 Problem Reactive depression F32.9 Active 39084085 ALLERGIES No Information ENCOUNTERS Encounter Location Date Diagnosis [facility] [address] [facility] [id number] [address] May, [facility] [id number] [place] [address] May, [facility] [address], [place] [address] Apr, [facility] [id number] [place] [address] Apr, [facility] [id number] [place] [address] Apr, Fibromyalgia M79.7 [facility] [id number] [place] [address] Apr, Generalized anxiety disorder F41.1 and Mild episode of recurrent major depressive disorder F33.0 [facility] [address] [place] [id number] [place] [address] Mar, [facility] [id number] [place] [address] Mar, Age-related osteoporosis without current pathological fracture M81.0 ; Encounter for immunization Z23 and BMI 40.0-44.9, adult Z68.41 [facility] [id number] [place] [address] Mar, Generalized anxiety disorder F41.1 and Mild episode of recurrent major depressive disorder F33.0 [facility] [id number] [place] [address] Mar, Fibromyalgia M79.7 [facility] [id number] [place] [address] Mar, Generalized anxiety disorder F41.1 and Mild episode of recurrent major depressive disorder F33.0 [facility] [id number] [place] [address] 24 Feb, 2018 Generalized anxiety disorder F41.1 and Mild episode of recurrent major depressive disorder F33.0 [facility] [id number] [place] [address] 13 Feb, 2018 Fibromyalgia M79.7 [facility] [id number] [place] [address] 10 Feb, 2018 Generalized anxiety disorder F41.1 and Mild episode of recurrent major depressive disorder F33.0 [facility] [id number] [place] [address] Feb, [facility] [id number] [place] [address] Feb, Bronchospasm J98.01 and Arthritis M19.90 [facility] [facility] [id number] [place] [address] Jan, Medicare annual wellness visit, initial Z00.00 ; Reactive depression F32.9 ; Reflex sympathetic dystrophy G90.50 ; Fibromyalgia M79.7 ; BMI 40.0- 44.9, adult Z68.41 ; Hypothyroidism, unspecified type E03.9 ; Gastroesophageal reflux disease, esophagitis presence not specified K21.9 ; Family history of osteoporosis Z82.62 ; Venous insufficiency I87.2 ; Arthritis M19.90 ; Mixed hyperlipidemia E78.2 and Generalized anxiety disorder F41.1 [facility] [id number] [place] [address] Jan, Generalized anxiety disorder F41.1 and Mild episode of recurrent major depressive disorder F33.0 [place] [address] [address] Jan, Mild episode of recurrent major depressive disorder F33.0 and Generalized anxiety disorder F41.1 [place] [id number] [place] [address] Jan, Fibromyalgia M79.7 [place] [id number] [place] [address] Jan, Bronchospasm J98.01 [place] [id number] [place] [address] Jan, [place] [address] [address] Jan, Generalized anxiety disorder F41.1 and Mild episode of recurrent major depressive disorder F33.0 [facility] [id number] [place] [address] Jan, Bronchitis J40 [place] [address] [address] Dec, Mild episode of recurrent major depressive disorder F33.0 [facility] [id number] [place] [address] Dec, Generalized anxiety disorder F41.1 and Mild episode of recurrent major depressive disorder F33.0 [facility] [id number] [place] [address] Dec, Fibromyalgia M79.7 ; Arthritis M19.90 and Generalized anxiety disorder F41.1 [facility] [id number] [place] [address] Dec, Mild episode of recurrent major depressive disorder F33.0 and Generalized anxiety disorder F41.1 [facility] [id number] [place] [address] Dec, Fibromyalgia M79.7 [facility] [id number] [place] [address] Dec, Bronchitis J40 and Internal derangement of right knee M23.91 [facility] [id number] [place] [address] Dec, Cough R05 [facility] [id number] [place] [address] Dec, Generalized anxiety disorder F41.1 and Mild episode of recurrent major depressive disorder F33.0 [facility] [id number] [place] [address] Dec, [facility] [id number] [place] [address] Dec, [facility] [id number] [place] [address] Dec, Mild episode of recurrent major depressive disorder F33.0 and Generalized anxiety disorder F41.1 [facility] [id number] [place] [address] Nov, [place] [address] [address] Nov, [facility] [id number] [place] [address] Nov, [facility] [address], [place] [address] Nov, Internal derangement of right knee M23.91 [facility] [id number] [place] [address] Nov, Generalized anxiety disorder F41.1 and Mild episode of recurrent major depressive disorder F33.0 [facility] [id number] [place] [address] 22 Nov, 2017 Internal derangement of right knee M23.91 [facility] [address] [address] 19 Nov, 2017 Acute right ankle pain M25.571 ; Acute pain of right knee M25.561 ; Acute left-sided low back pain without sciatica M54.5 and Right leg pain M79.604 [facility] [address] [address] 15 Nov, 2017 [facility] [id number] [place] [address] 14 Nov, 2017 Fibromyalgia M79.7 [facility] [id number] [place] [address] 13 Nov, 2017 Generalized anxiety disorder F41.1 and Mild episode of recurrent major depressive disorder F33.0 [facility] [address] [address] 11 Nov, 2017 [facility] [id number] [place] [address] 30 Oct, 2017 Generalized anxiety disorder F41.1 and Mild episode of recurrent major depressive disorder F33.0 [facility] [id number] [place] [address] October, Fibromyalgia M79.7 [facility] [id number] [place] [address] October, [facility] [id number] [place] [address] October, Generalized anxiety disorder F41.1 and Mild episode of recurrent major depressive disorder F33.0 [place] [id number] [place] [address] October, [facility] [id number] [place] [address] Sep, Gastroesophageal reflux disease, esophagitis presence not specified K21.9 and Abnormal laboratory test R89.9 [place] [id number] [place] [address] Sep, Fibromyalgia M79.7 [place] [id number] [place] [address] Sep, Generalized anxiety disorder F41.1 and Mild episode of recurrent major depressive disorder F33.0 [place] [id number] [place] [address] Sep, Epigastric pain R10.13 [place] [id number] [place] [address] Sep, Mild episode of recurrent major depressive disorder F33.0 and Generalized anxiety disorder F41.1 [place] [id number] [place] [address] Sep, Abnormal laboratory test R89.9 [place] [id number] [place] [address] Sep, Generalized anxiety disorder F41.1 and Mild episode of recurrent major depressive disorder F33.0 [place] [id number] [place] [address] Aug, Epigastric pain R10.13 and Encounter for therapeutic drug level monitoring Z51.81 [facility] [address] [place] [address] 28 Aug, 2017 Epigastric pain R10.13 and Gastro-esophageal reflux disease without esophagitis K21.9 [facility] [id number] [place] [address] 22 Aug, 2017 [facility] [id number] [place] [address] 21 Aug, 2017 Epigastric pain R10.13 [place] [id number] [place] [address] 20 Aug, 2017 Fibromyalgia M79.7 [place] [address] [address] 14 Aug, 2017 [place] [id number] [place] [address] 14 Aug, 2017 Generalized anxiety disorder F41.1 and Mild episode of recurrent major depressive disorder F33.0 [place] [id number] [place] [address] 08 Aug, 2017 Epigastric pain R10.13 ; Reflex sympathetic dystrophy G90.50 and Arthritis M19.90 [facility] [id number] [place] [address] 28 Jul, 2017 Generalized anxiety disorder F41.1 and Mild episode of recurrent major depressive disorder F33.0 [place] [id number] [place] [address] Jul, BMI 40.0-44.9, adult Z68.41 ; Mild episode of recurrent major depressive disorder F33.0 and Generalized anxiety disorder F41.1 [place] [id number] [place] [address] Jul, Fibromyalgia M79.7 [facility] [id number] [place] [address] Jun, Mild episode of recurrent major depressive disorder F33.0 and Generalized anxiety disorder F41.1 [facility] [address] [place] [address] Jun, Fibromyalgia M79.7 [facility] [id number] [place] [address] Jun, Generalized anxiety disorder F41.1 and Mild episode of recurrent major depressive disorder F33.0 [facility] [id number] [place] [address] Jun, Generalized anxiety disorder F41.1 and Mild episode of recurrent major depressive disorder F33.0 [facility] [id number] [place] [address] Jun, Generalized anxiety disorder F41.1 and Mild episode of recurrent major depressive disorder F33.0 [facility] [id number] [place] [address] Jun, [facility] [id number] [place] [address] Jun, Generalized anxiety disorder F41.1 and Mild episode of recurrent major depressive disorder F33.0 [facility] [id number] [place] [address] May, Fibromyalgia M79.7 [facility] [id number] [place] [address] May, Generalized anxiety disorder F41.1 and Mild episode of recurrent major depressive disorder F33.0 [facility] [address] [place] [address] May, Mixed hyperlipidemia E78.2 ; Arthritis M19.90 ; Reactive depression F32.9 and Hypothyroidism, unspecified type E03.9 [facility] [id number] [place] [address] May, Arthritis M19.90 ; Reactive depression F32.9 ; Mixed hyperlipidemia E78.2 and Hypothyroidism, unspecified type E03.9 [facility] [id number] [place] [address] Apr, Fibromyalgia M79.7 [facility] [id number] [place] [address] Apr, [facility] [id number] [place] [address] Apr, Fibromyalgia M79.7 [facility] [address] [address] Mar, Fibromyalgia M79.7 [facility] [address] [address] Mar, [facility] [address] [address] Mar, Fibromyalgia M79.7 [facility] [address] [address] Mar, [facility] [address] [address] Feb, Reflex sympathetic dystrophy G90.50 ; Right arm pain M79.601 and Fibromyalgia M79.7 [facility] [id number] [place] [address] Feb, [facility] [id number] [place] [address] Feb, Anxiety F41.9 [facility] [address] [address] Feb, Fibromyalgia M79.7 [facility] [id number] [place] [address] Feb, [facility] [id number] [place] [address] Feb, [facility] [id number] [place] [address] Jan, Temporal headache R51 [facility] [address] [id number] [place] [address] Jan, Fibromyalgia M79.7 [facility] [id number] [place] [address] Dec, Fibromyalgia M79.7 [facility] [id number] [place] [address] Nov, Peroneal tendonitis, unspecified laterality M76.70 and Plantar fasciitis, bilateral M72.2 [place] [id number] [place] [address] Nov, Fibromyalgia M79.7 [place] [id number] [place] [address] October, Fibromyalgia M79.7 [place] [id number] [place] [address] October, Plantar fasciitis, bilateral M72.2 and Peroneal tendonitis, unspecified laterality M76.70 [place] [id number] [place] [address] October, Fibromyalgia M79.7 [place] [id number] [place] [address] Sep, Anxiety F41.9 [place] [id number] [place] [address] Aug, Anxiety F41.9 and Adjustment disorder with anxiety F43.22 [place] [id number] [place] [address] Aug, Pain of left foot M79.672 [place] [address] [address] Aug, Pain of left foot M79.672 and Pain in right foot M79.671 [place] [id number] [place] [address] Aug, Arthritis M19.90 ; Reactive depression F32.9 ; Fibromyalgia M79.7 ; Rosacea L71.9 ; Pain in right foot M79.671 and Pain of left foot M79.672 [place] [address] [address] Aug, Anxiety F41.9 ; Adjustment disorder with anxiety F43.22 and Reactive depression F32.9 [place] [address] [address] Aug, Right elbow pain M25.521 [place] [address] [address] 07 Aug, 2016 Plantar wart of right foot B07.0 and Actinic keratosis L57.0 [place] [address] [address] Aug, Fibromyalgia M79.7 [place] [address] [address] Jul, Arthritis M19.90 ; Hypothyroidism, unspecified type E03.9 ; Reactive depression F32.9 and Venous insufficiency I87.2 [place] [address] [address] Jul, Gastroesophageal reflux disease, esophagitis presence not specified K21.9 [place] [address] [address] Jul, Reflex sympathetic dystrophy G90.50 [place] [address] [address] Jul, Anxiety F41.9 ; Adjustment disorder with anxiety F43.22 and Reactive depression F32.9 [place] [address] [address] 15 Jul, 2016 [place] [address] [address] Jul, Right elbow pain M25.521 [place] [address] [address] Jun, Fibromyalgia M79.7 [facility] [address] [address] Jun, Anxiety F41.9 ; Adjustment disorder with anxiety F43.22 and Reactive depression F32.9 [place] [address] [address] Jun, [facility] [address] [address] Jun, Atypical chest pain R07.89 and Adjustment disorder with anxiety F43.22 [place] [address] [id number] Jun, Chest pain, unspecified type R07.9 [place] [address] [address] Jun, Fibromyalgia M79.7 [facility] [address] [address] May, Anxiety F41.9 [place] [address] [address] May, [place] [address] [address] May, Right elbow pain M25.521 [place] [address] [address] Apr, Reflex sympathetic dystrophy G90.50 and Encounter for immunization Z23 [place] [address] [address] Apr, [place] [address] [address] 14 Mar, 2016 [facility] [id number] [place] [address] Feb, [facility] [address], [place] [address] Feb, [facility] [id number] [place] [address] Jan, [facility] [id number] [place] [address] Jan, Right elbow pain M25.521 and Right wrist pain M25.531 [facility] [id number] [place] [address] Jan, [facility] [id number] [place] [address] Dec, Seborrheic keratoses L82.1 [facility] [id number] [place] [address] Dec, [facility] [id number] [place] [address] Dec, [facility] [id number] [address] Dec, [facility] [id number] [place] [address] Dec, Fibromyalgia M79.7 and Hypothyroidism, unspecified type E03.9 [facility] [address] [address] Dec, Seborrheic keratoses L82.1 [facility] [address], [place] [address] Dec, [facility] [address], [place] [address] Dec, [facility] [id number] [place] [address] Nov, Sebaceous cyst L72.3 [facility] [address] [address] October, Breast cancer screening Z12.39 [facility] [address] [facility] [id number] [address] October, Fibromyalgia M79.7 ; Hypothyroidism, unspecified type E03.9 and Reflex sympathetic dystrophy G90.50 [facility] [address] [facility] [id number] [place] [address] October, Reflex sympathetic dystrophy G90.50 ; Fibromyalgia M79.7 and Hypothyroidism, unspecified type E03.9 IMMUNIZATIONS No Known Immunizations SOCIAL HISTORY Never Assessed REASON FOR VISIT f/u PLAN OF CARE Activity Details Follow Up Next available Reason:anxiety & depression VITAL SIGNS MEDICATIONS Unknown Medications RESULTS No Results PROCEDURES Procedure Date Ordered Result Body Site [facility] VIS[facility] MENTAL HEALTH ESTAB PT Apr 24, 2018 Psychotherapy, patient &/family, 45 minutes, established patient Apr 24, 2018 INSTRUCTIONS MEDICATIONS ADMINISTERED No Known Medications [...] resection Hospitalization History surgeries Hospitalization History Chest Pain-[facility] 07/02/16 Hospitalization History Chest Pain - [facility] 10/06/17
--- OUTSIDE RECORDS SUMMARY | 2018-11-16 13:03 | XMS REPORT ---
Author Author FRANK CHAPMAN Organization [facility] Address [address] [place] [address] Care Team Providers Care Property Disposal Manager Name Role Phone FRANK CHAPMAN Unavailable PROBLEMS Type Condition ICD9-CM Code KHV23-IT Code Onset Dates Condition Status SNOMED Code Problem Gastroesophageal reflux disease, esophagitis presence not specified K21.9 Active 125960069 Problem Rosacea L71.9 Active 324693852 Problem Plantar wart of right foot B07.0 Active 72710159 Problem Age-related osteoporosis without current pathological fracture M81.0 Active 23512162 Problem Internal derangement of right knee M23.91 Active 629147764314271 Problem Generalized anxiety disorder F41.1 Active 03937921 Problem Mixed hyperlipidemia E78.2 Active 591546703 Problem Abnormal laboratory test R89.9 Active 695949106 Problem Mild episode of recurrent major depressive disorder F33.0 Active 579234892 Problem Hypothyroidism, unspecified type E03.9 Active 28588232 Problem Reflex sympathetic dystrophy G90.50 Active 10039525 Problem Right wrist pain M25.531 Active 18696325 Problem Venous insufficiency I87.2 Active 07348301 Problem Fibromyalgia M79.7 Active 736569515 Problem Arthritis M19.90 Active 7354806 Problem Right elbow pain M25.521 Active 96439903 Problem Reactive depression F32.9 Active 81552760 ALLERGIES No Information ENCOUNTERS Encounter Location Date Diagnosis [facility] [address] [facility] [id number] [address] May, [facility] [address], [place] [address] May, [facility] [address], [place] [address] May, [facility] [id number] [place] [address] Apr, [facility] [address], [place] [address] Apr, Generalized anxiety disorder F41.1 and Mild episode of recurrent major depressive disorder F33.0 [facility] [id number], [place] [address] Apr, Fibromyalgia M79.7 [facility] [id number] [place] [address] Apr, Generalized anxiety disorder F41.1 and Mild episode of recurrent major depressive disorder F33.0 [facility] [id number] [place] [address] Mar, [facility] [id number] [place] [address] Mar, Age-related osteoporosis without current pathological fracture M81.0 ; Encounter for immunization Z23 and BMI 40.0-44.9, adult Z68.41 [facility] [id number] [place] [address] Mar, Generalized anxiety disorder F41.1 and Mild episode of recurrent major depressive disorder F33.0 [facility] [address], [place] [address] Mar, Fibromyalgia M79.7 [facility] [address], [place] [address] 08 Mar, 2018 Generalized anxiety disorder F41.1 and Mild episode of recurrent major depressive disorder F33.0 [facility] [address], [place] [address] 24 Feb, 2018 Generalized anxiety disorder F41.1 and Mild episode of recurrent major depressive disorder F33.0 [facility] [address], [place] [address] 13 Feb, 2018 Fibromyalgia M79.7 [facility] [address], [place] [address] Feb, Generalized anxiety disorder F41.1 and Mild episode of recurrent major depressive disorder F33.0 [facility] [id number] [place] [address] Feb, [facility] [id number] [place] [address] Feb, Bronchospasm J98.01 and Arthritis M19.90 [facility] [id number] [place] [address] Jan, Medicare annual wellness visit, initial Z00.00 ; Reactive depression F32.9 ; Reflex sympathetic dystrophy G90.50 ; Fibromyalgia M79.7 ; BMI 40.0- 44.9, adult Z68.41 ; Hypothyroidism, unspecified type E03.9 ; Gastroesophageal reflux disease, esophagitis presence not specified K21.9 ; Family history of osteoporosis Z82.62 ; Venous insufficiency I87.2 ; Arthritis M19.90 ; Mixed hyperlipidemia E78.2 and Generalized anxiety disorder F41.1 [place] [facility] [id number] [place] [address] Jan, Generalized anxiety disorder F41.1 and Mild episode of recurrent major depressive disorder F33.0 [facility] [id number] [place] [address] Jan, Mild episode of recurrent major depressive disorder F33.0 and Generalized anxiety disorder F41.1 [place] [facility] [id number] [place] [address] Jan, Fibromyalgia M79.7 [facility] [id number] [place] [address] Jan, Bronchospasm J98.01 [place] [id number] [place] [address] Jan, [facility] [id number] [place] [address] Jan, Generalized anxiety disorder F41.1 and Mild episode of recurrent major depressive disorder F33.0 [facility] [id number] [place] [address] Jan, Bronchitis J40 [facility] [id number] [place] [address] Dec, Mild episode of recurrent major depressive disorder F33.0 [facility] [id number] [place] [address] Dec, Generalized anxiety disorder F41.1 and Mild episode of recurrent major depressive disorder F33.0 [facility] [id number] [place] [address] Dec, Fibromyalgia M79.7 ; Arthritis M19.90 and Generalized anxiety disorder F41.1 [place] [id number] [place] [address] Dec, Mild episode of recurrent major depressive disorder F33.0 and Generalized anxiety disorder F41.1 [place] [id number] [place] [address] Dec, Fibromyalgia M79.7 [facility] [id number] [place] [address] Dec, Bronchitis J40 and Internal derangement of right knee M23.91 [facility] [id number] [place] [address] Dec, Cough R05 [facility] [id number] [place] [phone] Dec, Generalized anxiety disorder F41.1 and Mild episode of recurrent major depressive disorder F33.0 [facility] [id number] [place] [phone] Dec, [facility] [id number] [place] [address] Dec, [facility] [id number] [place] [address] Dec, Mild episode of recurrent major depressive disorder F33.0 and Generalized anxiety disorder F41.1 [facility] [address], [place] [address] 30 Nov, 2017 [facility] [address], [place] [address] Nov, [facility] [address], [place] [address] Nov, [facility] [id number] [place] [address] Nov, Internal derangement of right knee M23.91 [facility] [id number] [place] [address] Nov, Generalized anxiety disorder F41.1 and Mild episode of recurrent major depressive disorder F33.0 [facility] [address], [place] [address] Nov, Internal derangement of right knee M23.91 [facility] [address], [place] [address] 19 Nov, 2017 Acute right ankle pain M25.571 ; Acute pain of right knee M25.561 ; Acute left-sided low back pain without sciatica M54.5 and Right leg pain M79.604 [facility] [address], [place] [address] 15 Nov, 2017 [facility] [address], [place] [address] 14 Nov, 2017 Fibromyalgia M79.7 [facility] [address], [place] [address] 13 Nov, 2017 Generalized anxiety disorder F41.1 and Mild episode of recurrent major depressive disorder F33.0 [facility] [address], [place] [address] Nov, [facility] [address], [place] [address] October, Generalized anxiety disorder F41.1 and Mild episode of recurrent major depressive disorder F33.0 [facility] [id number] [place] [address] October, Fibromyalgia M79.7 [facility] [id number] [place] [address] October, [facility] [address] [address] October, Generalized anxiety disorder F41.1 and Mild episode of recurrent major depressive disorder F33.0 [facility] [id number] [place] [address] October, [facility] [id number] [place] [address] Sep, Gastroesophageal reflux disease, esophagitis presence not specified K21.9 and Abnormal laboratory test R89.9 [facility] [id number] [place] [address] Sep, Fibromyalgia M79.7 [facility] [id number] [place] [address] Sep, Generalized anxiety disorder F41.1 and Mild episode of recurrent major depressive disorder F33.0 [facility] [id number] [place] [address] Sep, Epigastric pain R10.13 [facility] [id number] [place] [address] Sep, Mild episode of recurrent major depressive disorder F33.0 and Generalized anxiety disorder F41.1 [facility] [id number] [place] [address] Sep, Abnormal laboratory test R89.9 [facility] [id number] [place] [address] Sep, Generalized anxiety disorder F41.1 and Mild episode of recurrent major depressive disorder F33.0 [facility] [id number] [place] [address] 29 Aug, 2017 Epigastric pain R10.13 and Encounter for therapeutic drug level monitoring Z51.81 [facility] [id number] [place] [address] 28 Aug, 2017 Epigastric pain R10.13 and Gastro-esophageal reflux disease without esophagitis K21.9 [facility] [address] [address] Aug, [place] [address] [address] Aug, Epigastric pain R10.13 [place] [address] [address] Aug, Fibromyalgia M79.7 [place] [address] [address] Aug, [place] [address] [address] 14 Aug, 2017 Generalized anxiety disorder F41.1 and Mild episode of recurrent major depressive disorder F33.0 [place] [id number] [place] [address] 08 Aug, 2017 Epigastric pain R10.13 ; Reflex sympathetic dystrophy G90.50 and Arthritis M19.90 [place] [id number] [place] [address] Jul, Generalized anxiety disorder F41.1 and Mild episode of recurrent major depressive disorder F33.0 [place] [address] [address] Jul, BMI 40.0-44.9, adult Z68.41 ; Mild episode of recurrent major depressive disorder F33.0 and Generalized anxiety disorder F41.1 [place] [id number] [place] [address] Jul, Fibromyalgia M79.7 [facility] [id number] [place] [address] Jun, Mild episode of recurrent major depressive disorder F33.0 and Generalized anxiety disorder F41.1 [facility] [id number] [place] [address] Jun, Fibromyalgia M79.7 [facility] [id number] [place] [address] Jun, Generalized anxiety disorder F41.1 and Mild episode of recurrent major depressive disorder F33.0 [facility] [id number] [place] [address] Jun, Generalized anxiety disorder F41.1 and Mild episode of recurrent major depressive disorder F33.0 [facility] [id number] [place] [address] Jun, Generalized anxiety disorder F41.1 and Mild episode of recurrent major depressive disorder F33.0 [facility] [id number] [place] [address] Jun, [facility] [id number] [place] [address] Jun, Generalized anxiety disorder F41.1 and Mild episode of recurrent major depressive disorder F33.0 [facility] [id number] [place] [address] May, Fibromyalgia M79.7 [facility] [id number] [place] [address] May, Generalized anxiety disorder F41.1 and Mild episode of recurrent major depressive disorder F33.0 [facility] [id number] [place] [address] May, Mixed hyperlipidemia E78.2 ; Arthritis M19.90 ; Reactive depression F32.9 and Hypothyroidism, unspecified type E03.9 [facility] [id number] [place] [address] May, Arthritis M19.90 ; Reactive depression F32.9 ; Mixed hyperlipidemia E78.2 and Hypothyroidism, unspecified type E03.9 [facility] [address] [address] Apr, Fibromyalgia M79.7 [facility] [address] [address] Apr, [facility] [address] [address] Apr, Fibromyalgia M79.7 [facility] [address] [address] Mar, Fibromyalgia M79.7 [facility] [address] [address] Mar, [facility] [address] [address] Mar, Fibromyalgia M79.7 [facility] [address] [address] Mar, [facility] [address] [address] Feb, Reflex sympathetic dystrophy G90.50 ; Right arm pain M79.601 and Fibromyalgia M79.7 [facility] [id number] [place] [address] Feb, [facility] [address] [address] Feb, Anxiety F41.9 [facility] [address] [address] Feb, Fibromyalgia M79.7 [facility] [id number] [place] [address] Feb, [facility] [address] [address] Feb, [facility] [id number] [place] [address] Jan, Temporal headache R51 [facility] [id number] [place] [address] Jan, Fibromyalgia M79.7 [facility] [id number] [place] [address] Dec, Fibromyalgia M79.7 [facility] [id number] [place] [address] Nov, Peroneal tendonitis, unspecified laterality M76.70 and Plantar fasciitis, bilateral M72.2 [place] [id number] [place] [address] Nov, Fibromyalgia M79.7 [facility] [id number] [place] [address] October, Fibromyalgia M79.7 [facility] [id number] [place] [address] October, Plantar fasciitis, bilateral M72.2 and Peroneal tendonitis, unspecified laterality M76.70 [facility] [id number] [place] [address] October, Fibromyalgia M79.7 [facility] [id number] [place] [address] Sep, Anxiety F41.9 [place] [id number] [place] [address] Aug, Anxiety F41.9 and Adjustment disorder with anxiety F43.22 [facility] [facility] [id number] [place] [address] Aug, Pain of left foot M79.672 [facility] [id number] [place] [address] Aug, Pain of left foot M79.672 and Pain in right foot M79.671 [place] [address] [address] Aug, Arthritis M19.90 ; Reactive depression F32.9 ; Fibromyalgia M79.7 ; Rosacea L71.9 ; Pain in right foot M79.671 and Pain of left foot M79.672 [place] [address] [address] Aug, Anxiety F41.9 ; Adjustment disorder with anxiety F43.22 and Reactive depression F32.9 [place] [address] [address] Aug, Right elbow pain M25.521 [place] [address] [address] Aug, Plantar wart of right foot B07.0 and Actinic keratosis L57.0 [place] [address] [address] Aug, Fibromyalgia M79.7 [place] [address] [address] Jul, Arthritis M19.90 ; Hypothyroidism, unspecified type E03.9 ; Reactive depression F32.9 and Venous insufficiency I87.2 [place] [address] [address] Jul, Gastroesophageal reflux disease, esophagitis presence not specified K21.9 [place] [address] [address] Jul, Reflex sympathetic dystrophy G90.50 [place] [address] [address] Jul, Anxiety F41.9 ; Adjustment disorder with anxiety F43.22 and Reactive depression F32.9 [place] [address] [address] Jul, [facility] [id number] [place] [address] 03 Jul, 2016 Right elbow pain M25.521 [facility] [address] [address] Jun, Fibromyalgia M79.7 [facility] [address] [address] Jun, Anxiety F41.9 ; Adjustment disorder with anxiety F43.22 and Reactive depression F32.9 [place] [address] [address] Jun, [place] [address] [address] Jun, Atypical chest pain R07.89 and Adjustment disorder with anxiety F43.22 [facility] [address] [id number] Jun, Chest pain, unspecified type R07.9 [place] [address] [address] Jun, Fibromyalgia M79.7 [place] [address] [address] May, Anxiety F41.9 [facility] [address] [address] 14 May, 2016 [facility] [address] [address] May, Right elbow pain M25.521 [facility] [address] [address] Apr, Reflex sympathetic dystrophy G90.50 and Encounter for immunization Z23 [facility] [address] [address] 07 Apr, 2016 [facility] [address] [address] Mar, [facility] [id number] [place] [address] Feb, [facility] [id number] [place] [address] Feb, [facility] [id number] [place] [address] Jan, [facility] [id number] [place] [address] Jan, Right elbow pain M25.521 and Right wrist pain M25.531 [facility] [id number] [place] [address] Jan, [facility] [id number] [place] [address] Dec, Seborrheic keratoses L82.1 [facility] [id number] [place] [address] Dec, [facility] [id number] [place] [address] Dec, [facility] [id number] [place] [address] Dec, [facility] [id number] [place] [address] Dec, Fibromyalgia M79.7 and Hypothyroidism, unspecified type E03.9 [facility] [id number] [place] [address] Dec, Seborrheic keratoses L82.1 [facility] [id number] [place] [address] Dec, [facility] [id number] [place] [address] Dec, [facility] [id number] [place] [address] Nov, Sebaceous cyst L72.3 [facility] [address] [facility] [id number] [place] [address] October, Breast cancer screening Z12.39 [facility] [address] [facility] [id number] [place] [address] October, Fibromyalgia M79.7 ; Hypothyroidism, unspecified type E03.9 and Reflex sympathetic dystrophy G90.50 [facility] [address] [facility] [id number] [place] [address] October, Reflex sympathetic dystrophy G90.50 ; Fibromyalgia M79.7 and Hypothyroidism, unspecified type E03.9 IMMUNIZATIONS No Known Immunizations SOCIAL HISTORY Never Assessed REASON FOR VISIT f/u PLAN OF CARE Activity Details Follow Up Next available Reason:depression & anxiety VITAL SIGNS MEDICATIONS Unknown Medications RESULTS No Results PROCEDURES Procedure Date Ordered Result Body Site [facility] VISIT MENTAL HEALTH ESTAB PT May 08, 2018 Psychotherapy, patient &/family, 45 minutes, established patient May 08, 2018 INSTRUCTIONS MEDICATIONS ADMINISTERED No Known Medications [...]
--- OUTSIDE RECORDS SUMMARY | 2018-11-16 13:04 | XMS REPORT ---
Author Author FRANK CHAPMAN Organization [facility] Address [address] [place] [address] Care Team Providers Care Dry Room Operator Name Role Phone FRANK CHAPMAN Unavailable PROBLEMS Type Condition ICD9-CM Code UWM61-FM Code Onset Dates Condition Status SNOMED Code Problem Gastroesophageal reflux disease, esophagitis presence not specified K21.9 Active 444551692 Problem Rosacea L71.9 Active 405454084 Problem Plantar wart of right foot B07.0 Active 69823592 Problem Age-related osteoporosis without current pathological fracture M81.0 Active 00607246 Problem Internal derangement of right knee M23.91 Active 413090963177079 Problem Generalized anxiety disorder F41.1 Active 09720183 Problem Mixed hyperlipidemia E78.2 Active 264242669 Problem Abnormal laboratory test R89.9 Active 945033072 Problem Mild episode of recurrent major depressive disorder F33.0 Active 054009669 Problem Hypothyroidism, unspecified type E03.9 Active 33679917 Problem Reflex sympathetic dystrophy G90.50 Active 93478093 Problem Right wrist pain M25.531 Active 18104478 Problem Venous insufficiency I87.2 Active 34777344 Problem Fibromyalgia M79.7 Active 382833478 Problem Arthritis M19.90 Active 5392444 Problem Right elbow pain M25.521 Active 37434641 Problem Reactive depression F32.9 Active 21185940 ALLERGIES No Information ENCOUNTERS Encounter Location Date Diagnosis [facility] [address] [facility] [id number] [address] May, [facility] [address] [address] Apr, [facility] [address] [address] Apr, [facility] [id number] [place] [address] Apr, [facility] [address] [address] Mar, [place] [id number] [place] [address] Mar, Age-related osteoporosis without current pathological fracture M81.0 ; Encounter for immunization Z23 and BMI 40.0-44.9, adult Z68.41 [place] [id number] [place] [address] Mar, Generalized anxiety disorder F41.1 and Mild episode of recurrent major depressive disorder F33.0 [place] [id number] [place] [address] Mar, Fibromyalgia M79.7 [place] [id number] [place] [address] Mar, Generalized anxiety disorder F41.1 and Mild episode of recurrent major depressive disorder F33.0 [place] [id number] [place] [address] 24 Feb, 2018 Generalized anxiety disorder F41.1 and Mild episode of recurrent major depressive disorder F33.0 [place] [id number] [place] [address] 13 Feb, 2018 Fibromyalgia M79.7 [facility] [id number] [place] [address] 10 Feb, 2018 Generalized anxiety disorder F41.1 and Mild episode of recurrent major depressive disorder F33.0 [place] [address] [place] [address] 06 Feb, 2018 [place] [id number] [place] [address] 04 Feb, 2018 Bronchospasm J98.01 and Arthritis M19.90 [facility] [address] [place] [address] Jan, Medicare annual wellness visit, initial Z00.00 ; Reactive depression F32.9 ; Reflex sympathetic dystrophy G90.50 ; Fibromyalgia M79.7 ; BMI 40.0- 44.9, adult Z68.41 ; Hypothyroidism, unspecified type E03.9 ; Gastroesophageal reflux disease, esophagitis presence not specified K21.9 ; Family history of osteoporosis Z82.62 ; Venous insufficiency I87.2 ; Arthritis M19.90 ; Mixed hyperlipidemia E78.2 and Generalized anxiety disorder F41.1 [place] [address] [address] Jan, Generalized anxiety disorder F41.1 and Mild episode of recurrent major depressive disorder F33.0 [place] [address] [address] Jan, Mild episode of recurrent major depressive disorder F33.0 and Generalized anxiety disorder F41.1 [place] [address] [address] Jan, Fibromyalgia M79.7 [place] [address] [address] Jan, Bronchospasm J98.01 [place] [address] [address] Jan, [place] [address] [address] Jan, Generalized anxiety disorder F41.1 and Mild episode of recurrent major depressive disorder F33.0 [place] [id number] [place] [address] Jan, Bronchitis J40 [place] [address] [id number] [place] [address] Dec, Mild episode of recurrent major depressive disorder F33.0 [place] [id number] [place] [address] Dec, Generalized anxiety disorder F41.1 and Mild episode of recurrent major depressive disorder F33.0 [place] [address] [place] [place] [address] Dec, Fibromyalgia M79.7 ; Arthritis M19.90 and Generalized anxiety disorder F41.1 [facility] [id number] [place] [address] Dec, Mild episode of recurrent major depressive disorder F33.0 and Generalized anxiety disorder F41.1 [facility] [id number] [place] [address] Dec, Fibromyalgia M79.7 [facility] [id number] [place] [address] Dec, Bronchitis J40 and Internal derangement of right knee M23.91 [facility] [id number] [place] [address] Dec, Cough R05 [facility] [id number] [place] [address] Dec, Generalized anxiety disorder F41.1 and Mild episode of recurrent major depressive disorder F33.0 [facility] [id number] [place] [address] Dec, [facility] [id number] [place] [address] Dec, [facility] [id number] [place] [address] Dec, Mild episode of recurrent major depressive disorder F33.0 and Generalized anxiety disorder F41.1 [facility] [id number] [place] [address] Nov, [facility] [address] [address] Nov, [facility] [id number] [place] [address] Nov, [facility] [id number] [place] [address] Nov, Internal derangement of right knee M23.91 [facility] [address] [place] [address] Nov, Generalized anxiety disorder F41.1 and Mild episode of recurrent major depressive disorder F33.0 [facility] [address] [address] Nov, Internal derangement of right knee M23.91 [facility] [id number] [place] [address] Nov, Acute right ankle pain M25.571 ; Acute pain of right knee M25.561 ; Acute left-sided low back pain without sciatica M54.5 and Right leg pain M79.604 [facility] [id number] [place] [address] 15 Nov, 2017 [place] [id number] [place] [address] Nov, Fibromyalgia M79.7 [facility] [id number] [place] [address] Nov, Generalized anxiety disorder F41.1 and Mild episode of recurrent major depressive disorder F33.0 [facility] [address] [place] [address] Nov, [facility] [id number] [place] [address] October, Generalized anxiety disorder F41.1 and Mild episode of recurrent major depressive disorder F33.0 [facility] [address] [place] [address] October, Fibromyalgia M79.7 [facility] [id number] [place] [address] October, [facility] [address] [place] [address] October, Generalized anxiety disorder F41.1 and Mild episode of recurrent major depressive disorder F33.0 [facility] [id number] [place] [address] October, [facility] [id number] [place] [address] Sep, Gastroesophageal reflux disease, esophagitis presence not specified K21.9 and Abnormal laboratory test R89.9 [place] [address] [address] Sep, Fibromyalgia M79.7 [place] [address] [address] Sep, Generalized anxiety disorder F41.1 and Mild episode of recurrent major depressive disorder F33.0 [place] [id number] [place] [address] Sep, Epigastric pain R10.13 [place] [address] [address] Sep, Mild episode of recurrent major depressive disorder F33.0 and Generalized anxiety disorder F41.1 [place] [address] [id number] [place] [address] Sep, Abnormal laboratory test R89.9 [place] [address] [id number] [place] [address] Sep, Generalized anxiety disorder F41.1 and Mild episode of recurrent major depressive disorder F33.0 [place] [address] [id number] [place] [address] Aug, Epigastric pain R10.13 and Encounter for therapeutic drug level monitoring Z51.81 [facility] [id number] [place] [address] Aug, Epigastric pain R10.13 and Gastro-esophageal reflux disease without esophagitis K21.9 [facility] [address] [id number] [place] [address] Aug, [place] [id number] [place] [address] Aug, Epigastric pain R10.13 [place] [address] [address] Aug, Fibromyalgia M79.7 [place] [address] [id number] [place] [address] 14 Aug, 2017 [place] [address] [address] Aug, Generalized anxiety disorder F41.1 and Mild episode of recurrent major depressive disorder F33.0 [place] [address] [address] 08 Aug, 2017 Epigastric pain R10.13 ; Reflex sympathetic dystrophy G90.50 and Arthritis M19.90 [place] [address] [address] Jul, Generalized anxiety disorder F41.1 and Mild episode of recurrent major depressive disorder F33.0 [place] [id number] [place] [address] Jul, BMI 40.0-44.9, adult Z68.41 ; Mild episode of recurrent major depressive disorder F33.0 and Generalized anxiety disorder F41.1 [place] [id number] [place] [address] Jul, Fibromyalgia M79.7 [place] [address] [id number] [place] [address] Jun, Mild episode of recurrent major depressive disorder F33.0 and Generalized anxiety disorder F41.1 [place] [address] [id number] [place] [address] Jun, Fibromyalgia M79.7 [place] [address] [id number] [place] [address] Jun, Generalized anxiety disorder F41.1 and Mild episode of recurrent major depressive disorder F33.0 [facility] [address], [place] [address] Jun, Generalized anxiety disorder F41.1 and Mild episode of recurrent major depressive disorder F33.0 [facility] [address] [address] Jun, Generalized anxiety disorder F41.1 and Mild episode of recurrent major depressive disorder F33.0 [facility] [id number] [place] [address] Jun, [facility] [id number] [place] [address] Jun, Generalized anxiety disorder F41.1 and Mild episode of recurrent major depressive disorder F33.0 [facility] [address] [place] [address] May, Fibromyalgia M79.7 [facility] [id number] [place] [address] May, Generalized anxiety disorder F41.1 and Mild episode of recurrent major depressive disorder F33.0 [facility] [address] [place] [address] May, Mixed hyperlipidemia E78.2 ; Arthritis M19.90 ; Reactive depression F32.9 and Hypothyroidism, unspecified type E03.9 [facility] [address] [place] [address] May, Arthritis M19.90 ; Reactive depression F32.9 ; Mixed hyperlipidemia E78.2 and Hypothyroidism, unspecified type E03.9 [facility] [address] [place] [address] Apr, Fibromyalgia M79.7 [facility] [address] [place] [address] Apr, [facility] [address] [place] [address] Apr, Fibromyalgia M79.7 [facility] [id number] [place] [address] Mar, Fibromyalgia M79.7 [facility] [id number] [place] [address] Mar, [facility] [id number] [place] [address] Mar, Fibromyalgia M79.7 [facility] [address] [address] Mar, [facility] [address] [address] Feb, Reflex sympathetic dystrophy G90.50 ; Right arm pain M79.601 and Fibromyalgia M79.7 [facility] [id number] [place] [address] Feb, [facility] [address] [address] Feb, Anxiety F41.9 [facility] [id number] [place] [address] Feb, Fibromyalgia M79.7 [facility] [id number] [place] [address] Feb, [facility] [id number] [place] [address] Feb, [facility] [id number] [place] [address] Jan, Temporal headache R51 [facility] [id number] [place] [address] Jan, Fibromyalgia M79.7 [facility] [id number] [place] [address] Dec, Fibromyalgia M79.7 [facility] [id number] [place] [address] Nov, Peroneal tendonitis, unspecified laterality M76.70 and Plantar fasciitis, bilateral M72.2 [place] [address] [address] Nov, Fibromyalgia M79.7 [place] [id number] [place] [address] October, Fibromyalgia M79.7 [place] [address] [address] October, Plantar fasciitis, bilateral M72.2 and Peroneal tendonitis, unspecified laterality M76.70 [place] [address] [address] October, Fibromyalgia M79.7 [place] [address] [address] Sep, Anxiety F41.9 [place] [address] [address] Aug, Anxiety F41.9 and Adjustment disorder with anxiety F43.22 [place] [address] [address] Aug, Pain of left foot M79.672 [place] [address] [address] Aug, Pain of left foot M79.672 and Pain in right foot M79.671 [place] [id number] [place] [address] Aug, Arthritis M19.90 ; Reactive depression F32.9 ; Fibromyalgia M79.7 ; Rosacea L71.9 ; Pain in right foot M79.671 and Pain of left foot M79.672 [place] [id number] [place] [address] Aug, Anxiety F41.9 ; Adjustment disorder with anxiety F43.22 and Reactive depression F32.9 [place] [address] [address] 14 Aug, 2016 Right elbow pain M25.521 [place] [address] [address] 07 Aug, 2016 Plantar wart of right foot B07.0 and Actinic keratosis L57.0 [place] [address] [address] Aug, Fibromyalgia M79.7 [place] [address] [address] Jul, Arthritis M19.90 ; Hypothyroidism, unspecified type E03.9 ; Reactive depression F32.9 and Venous insufficiency I87.2 [place] [address] [address] 20 Jul, 2016 Gastroesophageal reflux disease, esophagitis presence not specified K21.9 [place] [address] [address] Jul, Reflex sympathetic dystrophy G90.50 [place] [address] [address] 17 Jul, 2016 Anxiety F41.9 ; Adjustment disorder with anxiety F43.22 and Reactive depression F32.9 [place] [address] [address] 15 Jul, 2016 [place] [address] [address] 03 Jul, 2016 Right elbow pain M25.521 [place] [address] [address] Jun, Fibromyalgia M79.7 [place] [address] [address] Jun, Anxiety F41.9 ; Adjustment disorder with anxiety F43.22 and Reactive depression F32.9 [place] [id number] [place] [address] Jun, [facility] [address] [address] Jun, Atypical chest pain R07.89 and Adjustment disorder with anxiety F43.22 [facility] [address] [id number] [place] [id number] Jun, Chest pain, unspecified type R07.9 [facility] [id number] [place] [address] Jun, Fibromyalgia M79.7 [facility] [address] [address] May, Anxiety F41.9 [facility] [address] [address] May, [facility] [address] [address] May, Right elbow pain M25.521 [facility] [address] [address] Apr, Reflex sympathetic dystrophy G90.50 and Encounter for immunization Z23 [facility] [id number] [place] [address] Apr, [facility] [id number] [place] [address] Mar, [facility] [id number] [place] [address] Feb, [facility] [address] [address] Feb, [facility] [id number] [place] [address] Jan, [facility] [id number] [place] [address] Jan, Right elbow pain M25.521 and Right wrist pain M25.531 [facility] [id number] [place] [address] Jan, [facility] [id number] [place] [address] Dec, Seborrheic keratoses L82.1 [facility] [id number] [place] [address] Dec, [facility] [id number] [place] [address] Dec, [facility] [id number] [place] [address] Dec, [facility] [id number] [place] [address] Dec, Fibromyalgia M79.7 and Hypothyroidism, unspecified type E03.9 [facility] [id number] [place] [address] Dec, Seborrheic keratoses L82.1 [facility] [id number] [place] [address] Dec, [facility] [id number] [place] [address] Dec, [facility] [id number] [place] [address] Nov, Sebaceous cyst L72.3 [facility] [id number] [place] [address] October, Breast cancer screening Z12.39 [facility] [id number] [place] [address] October, Fibromyalgia M79.7 ; Hypothyroidism, unspecified type E03.9 and Reflex sympathetic dystrophy G90.50 [facility] [id number] [place] [address] October, Reflex sympathetic dystrophy G90.50 ; Fibromyalgia M79.7 and Hypothyroidism, unspecified type E03.9 IMMUNIZATIONS No Known Immunizations SOCIAL HISTORY Never Assessed REASON FOR VISIT f/u PLAN OF CARE Activity Details Follow Up Next available Reason:depression & anxiety VITAL SIGNS MEDICATIONS Unknown Medications RESULTS No Results PROCEDURES Procedure Date Ordered Result Body Site [facility] VISIT MENTAL HEALTH ESTAB PT Apr 10, 2018 Psychotherapy, patient &/family, 45 minutes, established patient Apr 10, 2018 INSTRUCTIONS MEDICATIONS ADMINISTERED No Known [...]
--- OUTSIDE RECORDS SUMMARY | 2018-11-16 13:04 | XMS REPORT ---
Author Author BAMBI POLLY [facility] Address [address] [place] [address] Care Team Providers Care Field Reviewer Name Role Phone MANAVKAYA VARMAA Unavailable PROBLEMS Type Condition ICD9-CM Code ZKF95-[id number] Code Onset Dates Condition Status SNOMED Code Problem Gastroesophageal reflux disease, esophagitis presence not specified K21.9 Active 054967893 Problem Rosacea L71.9 Active 582385887 Problem Plantar wart of right foot B07.0 Active 88287802 Problem Age-related osteoporosis without current pathological fracture M81.0 Active 30409652 Problem Internal derangement of right knee M23.91 Active 633709720215311 Problem Generalized anxiety disorder F41.1 Active 83810920 Problem Mixed hyperlipidemia E78.2 Active 072679568 Problem Abnormal laboratory test R89.9 Active 411874550 Problem Mild episode of recurrent major depressive disorder F33.0 Active 647962833 Problem Hypothyroidism, unspecified type E03.9 Active 46449960 Problem Reflex sympathetic dystrophy G90.50 Active 81081599 Problem Right wrist pain M25.531 Active 70927106 Problem Venous insufficiency I87.2 Active 98866859 Problem Fibromyalgia M79.7 Active 319044845 Problem Arthritis M19.90 Active 8798577 Problem Right elbow pain M25.521 Active 63428188 Problem Reactive depression F32.9 Active 93232318 ALLERGIES No Information ENCOUNTERS Encounter Location Date Diagnosis [facility] [address] [facility] [id number] [address] May, [facility] [id number] [address] Apr, [facility] [id number] [address] Apr, [facility] [id number] [address] Apr, [facility] [id number] [place] [address] Mar, [place] [id number] [place] [address] Mar, Age-related osteoporosis without current pathological fracture M81.0 ; Encounter for immunization Z23 and BMI 40.0-44.9, adult Z68.41 [place] [id number] [place] [address] Mar, Generalized anxiety disorder F41.1 and Mild episode of recurrent major depressive disorder F33.0 [place] [id number] [place] [address] Mar, Fibromyalgia M79.7 [place] [id number] [place] [address] Mar, Generalized anxiety disorder F41.1 and Mild episode of recurrent major depressive disorder F33.0 [place] [id number] [place] [address] 24 Feb, 2018 Generalized anxiety disorder F41.1 and Mild episode of recurrent major depressive disorder F33.0 [place] [id number] [place] [address] 13 Feb, 2018 Fibromyalgia M79.7 [facility] [id number] [place] [address] 10 Feb, 2018 Generalized anxiety disorder F41.1 and Mild episode of recurrent major depressive disorder F33.0 [place] [id number] [place] [address] 06 Feb, 2018 [place] [id number] [place] [address] 04 Feb, 2018 Bronchospasm J98.01 and Arthritis M19.90 [place] [id number] [place] [address] Jan, Medicare annual wellness visit, initial Z00.00 ; Reactive depression F32.9 ; Reflex sympathetic dystrophy G90.50 ; Fibromyalgia M79.7 ; BMI 40.0- 44.9, adult Z68.41 ; Hypothyroidism, unspecified type E03.9 ; Gastroesophageal reflux disease, esophagitis presence not specified K21.9 ; Family history of osteoporosis Z82.62 ; Venous insufficiency I87.2 ; Arthritis M19.90 ; Mixed hyperlipidemia E78.2 and Generalized anxiety disorder F41.1 [place] [address] [address] Jan, Generalized anxiety disorder F41.1 and Mild episode of recurrent major depressive disorder F33.0 [place] [address] [address] Jan, Mild episode of recurrent major depressive disorder F33.0 and Generalized anxiety disorder F41.1 [place] [address] [address] Jan, Fibromyalgia M79.7 [place] [id number] [place] [address] Jan, Bronchospasm J98.01 [place] [address] [address] Jan, [place] [address] [address] Jan, Generalized anxiety disorder F41.1 and Mild episode of recurrent major depressive disorder F33.0 [place] [id number] [place] [address] Jan, Bronchitis J40 [place] [address] [address] Dec, Mild episode of recurrent major depressive disorder F33.0 [place] [id number] [place] [address] Dec, Generalized anxiety disorder F41.1 and Mild episode of recurrent major depressive disorder F33.0 [place] [id number] [place] [address] Dec, Fibromyalgia M79.7 ; Arthritis M19.90 and Generalized anxiety disorder F41.1 [facility] [id number] [place] [address] Dec, Mild episode of recurrent major depressive disorder F33.0 and Generalized anxiety disorder F41.1 [facility] [id number] [place] [address] Dec, Fibromyalgia M79.7 [facility] [id number] [place] [address] Dec, Bronchitis J40 and Internal derangement of right knee M23.91 [facility] [id number] [place] [address] Dec, Cough R05 [facility] [id number] [place] [address] Dec, Generalized anxiety disorder F41.1 and Mild episode of recurrent major depressive disorder F33.0 [facility] [id number] [place] [address] Dec, [facility] [id number] [place] [address] Dec, [facility] [id number] [place] [address] Dec, Mild episode of recurrent major depressive disorder F33.0 and Generalized anxiety disorder F41.1 [facility] [id number] [place] [address] Nov, [facility] [id number] [place] [address] Nov, [facility] [id number] [place] [address] Nov, [facility] [id number] [place] [address] Nov, Internal derangement of right knee M23.91 [facility] [id number] [place] [address] Nov, Generalized anxiety disorder F41.1 and Mild episode of recurrent major depressive disorder F33.0 [facility] [id number] [place] [address] Nov, Internal derangement of right knee M23.91 [facility] [id number] [place] [address] Nov, Acute right ankle pain M25.571 ; Acute pain of right knee M25.561 ; Acute left-sided low back pain without sciatica M54.5 and Right leg pain M79.604 [facility] [id number] [place] [address] 15 Nov, 2017 [place] [id number] [place] [address] Nov, Fibromyalgia M79.7 [facility] [id number] [place] [address] Nov, Generalized anxiety disorder F41.1 and Mild episode of recurrent major depressive disorder F33.0 [facility] [address] [address] Nov, [facility] [id number] [place] [address] October, Generalized anxiety disorder F41.1 and Mild episode of recurrent major depressive disorder F33.0 [facility] [address] [address] October, Fibromyalgia M79.7 [facility] [id number] [place] [address] October, [facility] [address] [address] October, Generalized anxiety disorder F41.1 and Mild episode of recurrent major depressive disorder F33.0 [facility] [id number] [place] [address] October, [facility] [id number] [place] [address] Sep, Gastroesophageal reflux disease, esophagitis presence not specified K21.9 and Abnormal laboratory test R89.9 [facility] [address] [address] Sep, Fibromyalgia M79.7 [facility] [address] [address] Sep, Generalized anxiety disorder F41.1 and Mild episode of recurrent major depressive disorder F33.0 [place] [id number] [place] [address] Sep, Epigastric pain R10.13 [place] [id number] [place] [address] Sep, Mild episode of recurrent major depressive disorder F33.0 and Generalized anxiety disorder F41.1 [place] [id number] [place] [address] Sep, Abnormal laboratory test R89.9 [facility] [id number] [place] [address] Sep, Generalized anxiety disorder F41.1 and Mild episode of recurrent major depressive disorder F33.0 [facility] [id number] [place] [address] Aug, Epigastric pain R10.13 and Encounter for therapeutic drug level monitoring Z51.81 [facility] [id number] [place] [address] Aug, Epigastric pain R10.13 and Gastro-esophageal reflux disease without esophagitis K21.9 [facility] [id number] [place] [address] Aug, [place] [id number] [place] [address] Aug, Epigastric pain R10.13 [place] [id number] [place] [address] Aug, Fibromyalgia M79.7 [place] [id number] [place] [address] Aug, [place] [id number] [place] [address] Aug, Generalized anxiety disorder F41.1 and Mild episode of recurrent major depressive disorder F33.0 [place] [address] [address] Aug, Epigastric pain R10.13 ; Reflex sympathetic dystrophy G90.50 and Arthritis M19.90 [place] [id number] [place] [address] Jul, Generalized anxiety disorder F41.1 and Mild episode of recurrent major depressive disorder F33.0 [place] [id number] [place] [address] Jul, BMI 40.0-44.9, adult Z68.41 ; Mild episode of recurrent major depressive disorder F33.0 and Generalized anxiety disorder F41.1 [place] [id number] [place] [address] Jul, Fibromyalgia M79.7 [place] [id number] [place] [address] Jun, Mild episode of recurrent major depressive disorder F33.0 and Generalized anxiety disorder F41.1 [place] [id number] [place] [address] Jun, Fibromyalgia M79.7 [facility] [id number] [place] [address] Jun, Generalized anxiety disorder F41.1 and Mild episode of recurrent major depressive disorder F33.0 [facility] [address], [place] [address] Jun, Generalized anxiety disorder F41.1 and Mild episode of recurrent major depressive disorder F33.0 [facility] [address], [place] [address] Jun, Generalized anxiety disorder F41.1 and Mild episode of recurrent major depressive disorder F33.0 [facility] [id number] [place] [address] Jun, [facility] [id number] [place] [address] Jun, Generalized anxiety disorder F41.1 and Mild episode of recurrent major depressive disorder F33.0 [facility] [id number] [place] [address] May, Fibromyalgia M79.7 [facility] [id number] [place] [address] May, Generalized anxiety disorder F41.1 and Mild episode of recurrent major depressive disorder F33.0 [facility] [id number] [place] [address] May, Mixed hyperlipidemia E78.2 ; Arthritis M19.90 ; Reactive depression F32.9 and Hypothyroidism, unspecified type E03.9 [facility] [address] [address] May, Arthritis M19.90 ; Reactive depression F32.9 ; Mixed hyperlipidemia E78.2 and Hypothyroidism, unspecified type E03.9 [facility] [id number] [place] [address] Apr, Fibromyalgia M79.7 [facility] [address] [address] Apr, [facility] [id number] [place] [address] Apr, Fibromyalgia M79.7 [facility] [id number] [place] [address] Mar, Fibromyalgia M79.7 [facility] [id number] [place] [address] Mar, [facility] [id number] [place] [address] Mar, Fibromyalgia M79.7 [facility] [address] [address] Mar, [facility] [address] [address] Feb, Reflex sympathetic dystrophy G90.50 ; Right arm pain M79.601 and Fibromyalgia M79.7 [facility] [id number] [place] [address] Feb, [facility] [id number] [place] [address] Feb, Anxiety F41.9 [facility] [address] [address] Feb, Fibromyalgia M79.7 [facility] [id number] [place] [address] Feb, [facility] [id number] [place] [address] Feb, [facility] [id number] [place] [address] Jan, Temporal headache R51 [facility] [address] [address] Jan, Fibromyalgia M79.7 [facility] [id number] [place] [address] Dec, Fibromyalgia M79.7 [facility] [address] [address] Nov, Peroneal tendonitis, unspecified laterality M76.70 and Plantar fasciitis, bilateral M72.2 [place] [address] [address] Nov, Fibromyalgia M79.7 [place] [address] [address] October, Fibromyalgia M79.7 [place] [address] [address] October, Plantar fasciitis, bilateral M72.2 and Peroneal tendonitis, unspecified laterality M76.70 [place] [address] [address] October, Fibromyalgia M79.7 [place] [id number] [place] [address] Sep, Anxiety F41.9 [place] [address] [address] Aug, Anxiety F41.9 and Adjustment disorder with anxiety F43.22 [place] [id number] [place] [address] Aug, Pain of left foot M79.672 [place] [id number] [place] [address] Aug, Pain of left foot M79.672 and Pain in right foot M79.671 [place] [id number] [place] [address] Aug, Arthritis M19.90 ; Reactive depression F32.9 ; Fibromyalgia M79.7 ; Rosacea L71.9 ; Pain in right foot M79.671 and Pain of left foot M79.672 [place] [id number] [place] [address] Aug, Anxiety F41.9 ; Adjustment disorder with anxiety F43.22 and Reactive depression F32.9 [place] [address] [address] 14 Aug, 2016 Right elbow pain M25.521 [place] [address] [address] 07 Aug, 2016 Plantar wart of right foot B07.0 and Actinic keratosis L57.0 [place] [address] [address] Aug, Fibromyalgia M79.7 [place] [address] [address] Jul, Arthritis M19.90 ; Hypothyroidism, unspecified type E03.9 ; Reactive depression F32.9 and Venous insufficiency I87.2 [place] [address] [address] 20 Jul, 2016 Gastroesophageal reflux disease, esophagitis presence not specified K21.9 [place] [address] [address] 17 Jul, 2016 Reflex sympathetic dystrophy G90.50 [place] [address] [address] 17 Jul, 2016 Anxiety F41.9 ; Adjustment disorder with anxiety F43.22 and Reactive depression F32.9 [place] [address] [address] 15 Jul, 2016 [place] [address] [address] 03 Jul, 2016 Right elbow pain M25.521 [place] [address] [address] Jun, Fibromyalgia M79.7 [place] [address] [address] Jun, Anxiety F41.9 ; Adjustment disorder with anxiety F43.22 and Reactive depression F32.9 [facility] [id number] [place] [address] Jun, [facility] [address] [address] Jun, Atypical chest pain R07.89 and Adjustment disorder with anxiety F43.22 [facility] [address] [id number] 16 Jun, 2016 Chest pain, unspecified type R07.9 [facility] [address] [address] Jun, Fibromyalgia M79.7 [facility] [address] [address] May, Anxiety F41.9 [facility] [address] [address] May, [facility] [address] [address] May, Right elbow pain M25.521 [facility] [address] [address] Apr, Reflex sympathetic dystrophy G90.50 and Encounter for immunization Z23 [facility] [address] [address] Apr, [facility] [address] [address] Mar, [facility] [address] [address] Feb, [facility] [address] [address] Feb, [facility] [address] [address] Jan, [facility] [address] [address] Jan, Right elbow pain M25.521 and Right wrist pain M25.531 [facility] [id number] [place] [address] Jan, [facility] [id number] [place] [address] Dec, Seborrheic keratoses L82.1 [facility] [address] [address] Dec, [facility] [id number] [place] [address] Dec, [facility] [id number] [place] [address] Dec, [facility] [id number] [place] [address] Dec, Fibromyalgia M79.7 and Hypothyroidism, unspecified type E03.9 [facility] [id number] [place] [address] Dec, Seborrheic keratoses L82.1 [facility] [id number] [place] [address] Dec, [facility] [id number] [place] [address] Dec, [facility] [id number] [place] [address] Nov, Sebaceous cyst L72.3 [facility] [id number] [place] [address] October, Breast cancer screening Z12.39 [facility] [id number] [place] [address] October, Fibromyalgia M79.7 ; Hypothyroidism, unspecified type E03.9 and Reflex sympathetic dystrophy G90.50 [facility] [id number] [place] [address] October, Reflex sympathetic dystrophy G90.50 ; Fibromyalgia M79.7 and Hypothyroidism, unspecified type E03.9 IMMUNIZATIONS No Known Immunizations SOCIAL HISTORY Never Assessed REASON FOR VISIT Med refill PLAN OF CARE VITAL SIGNS MEDICATIONS [...]
--- OUTSIDE RECORDS SUMMARY | 2018-11-16 13:05 | XMS REPORT ---
Author Author JOE BAI [facility] Address [address] [place] [address] Care Team Providers Care Cabinetmaker Apprentice Name Role Phone JOE BAI Unavailable PROBLEMS Type Condition ICD9-CM Code BXF33-PT Code Onset Dates Condition Status SNOMED Code Problem Reactive depression F32.9 Active 96181469 Problem Plantar wart of right foot B07.0 Active 55395393 Problem Gastroesophageal reflux disease, esophagitis presence not specified K21.9 Active 118237007 Problem Internal derangement of right knee M23.91 Active [id number] Problem Abnormal laboratory test R89.9 Active 225679371 Problem Mixed hyperlipidemia E78.2 Active 977597268 Problem Rosacea L71.9 Active 396328324 Problem Mild episode of recurrent major depressive disorder F33.0 Active 258755005 Problem Generalized anxiety disorder F41.1 Active 64200432 Problem Hypothyroidism, unspecified type E03.9 Active 74766689 Problem Right elbow pain M25.521 Active 87584065 Problem Right wrist pain M25.531 Active 51262989 Problem Reflex sympathetic dystrophy G90.50 Active 90205511 Problem Venous insufficiency I87.2 Active 49358096 Problem Fibromyalgia M79.7 Active 476018971 Problem Arthritis M19.90 Active 1571605 ALLERGIES No Information ENCOUNTERS Encounter Location Date Diagnosis [facility] [address], [place] [address] Apr, [facility] [address] [place] [address] Apr, [facility] [address] [place] [address] Mar, [facility] [address], [place] [address] Mar, [facility] [address], [place] [address] Mar, Fibromyalgia M79.7 [facility] [address] [id number] [place] [address] 08 Mar, 2018 Generalized anxiety disorder F41.1 and Mild episode of recurrent major depressive disorder F33.0 [facility] [id number] [place] [address] 24 Feb, 2018 Generalized anxiety disorder F41.1 and Mild episode of recurrent major depressive disorder F33.0 [facility] [id number] [place] [address] 13 Feb, 2018 Fibromyalgia M79.7 [facility] [id number] [place] [address] 10 Feb, 2018 Generalized anxiety disorder F41.1 and Mild episode of recurrent major depressive disorder F33.0 [facility] [id number] [place] [address] Feb, [facility] [id number] [place] [address] Feb, Bronchospasm J98.01 and Arthritis M19.90 [facility] [address] [place] [address] Jan, Medicare annual wellness visit, initial Z00.00 ; Reactive depression F32.9 ; Reflex sympathetic dystrophy G90.50 ; Fibromyalgia M79.7 ; BMI 40.0- 44.9, adult Z68.41 ; Hypothyroidism, unspecified type E03.9 ; Gastroesophageal reflux disease, esophagitis presence not specified K21.9 ; Family history of osteoporosis Z82.62 ; Venous insufficiency I87.2 ; Arthritis M19.90 ; Mixed hyperlipidemia E78.2 and Generalized anxiety disorder F41.1 [facility] [address], [place] [address] Jan, Generalized anxiety disorder F41.1 and Mild episode of recurrent major depressive disorder F33.0 [facility] [address] [id number] [place] [address] Jan, Mild episode of recurrent major depressive disorder F33.0 and Generalized anxiety disorder F41.1 [facility] [id number] [place] [address] Jan, Fibromyalgia M79.7 [facility] [id number] [place] [address] Jan, Bronchospasm J98.01 [facility] [address] [address] Jan, [facility] [address] [address] Jan, Generalized anxiety disorder F41.1 and Mild episode of recurrent major depressive disorder F33.0 [facility] [id number] [place] [address] Jan, Bronchitis J40 [facility] [id number] [place] [address] Dec, Mild episode of recurrent major depressive disorder F33.0 [facility] [id number] [place] [address] Dec, Generalized anxiety disorder F41.1 and Mild episode of recurrent major depressive disorder F33.0 [facility] [address] [place] [id number] [place] [address] Dec, Fibromyalgia M79.7 ; Arthritis M19.90 and Generalized anxiety disorder F41.1 [facility] [id number] [place] [address] Dec, Mild episode of recurrent major depressive disorder F33.0 and Generalized anxiety disorder F41.1 [facility] [id number] [place] [address] Dec, Fibromyalgia M79.7 [facility] [id number] [place] [address] 17 Vlad, 2018 Bronchitis J40 and Internal derangement of right knee M23.91 [facility] [address] [facility] [id number] [address] Dec, [address] [facility] [address] [id number], [place] [address] Dec, Generalized anxiety disorder F41.1 and Mild episode of recurrent major depressive disorder F33.0 [facility] [address], [place] [address] Dec, [facility] [address] [facility] [id number] [address] Dec, [facility] [address] [place] [id number] [place] [address] Dec, Mild episode of recurrent major depressive disorder F33.0 and Generalized anxiety disorder F41.1 [facility] [address], [place] [address] Nov, [facility] [id number] [address] Nov, [facility] [address] [place] [address] Nov, [facility] [address], [place] [address] Nov, Internal derangement of right knee M23.91 [facility] [address], [place] [address] Nov, Generalized anxiety disorder F41.1 and Mild episode of recurrent major depressive disorder F33.0 [facility] [id number], [place] [address] Nov, Internal derangement of right knee M23.91 [facility] [id number], [place] [address] Nov, Acute right ankle pain M25.571 ; Acute pain of right knee M25.561 ; Acute left-sided low back pain without sciatica M54.5 and Right leg pain M79.604 [facility] [id number] [place] [address] 15 Nov, 2017 [facility] [id number] [place] [address] 14 Nov, [address] [facility] [id number] [place] [address] 13 Nov, 2017 Generalized anxiety disorder F41.1 and Mild episode of recurrent major depressive disorder F33.0 [facility] [id number] [place] [address] Nov, [facility] [id number] [place] [address] October, Generalized anxiety disorder F41.1 and Mild episode of recurrent major depressive disorder F33.0 [facility] [id number] [place] [address] October, Fibromyalgia M79.7 [facility] [id number] [place] [address] October, [facility] [id number] [place] [address] October, Generalized anxiety disorder F41.1 and Mild episode of recurrent major depressive disorder F33.0 [facility] [id number] [place] [address] October, [facility] [id number] [place] [address] Sep, Gastroesophageal reflux disease, esophagitis presence not specified K21.9 and Abnormal laboratory test R89.9 [facility] [id number] [place] [address] Sep, Fibromyalgia M79.7 [facility] [id number] [place] [address] Sep, Generalized anxiety disorder F41.1 and Mild episode of recurrent major depressive disorder F33.0 [facility] [address], [place] [address] Sep, Epigastric pain R10.13 [facility] [address] [place] [address] 10 Sep, 2017 Mild episode of recurrent major depressive disorder F33.0 and Generalized anxiety disorder F41.1 [facility] [id number] [place] [address] Sep, Abnormal laboratory test R89.9 [facility] [id number] [place] [address] Sep, Generalized anxiety disorder F41.1 and Mild episode of recurrent major depressive disorder F33.0 [facility] [id number] [place] [address] 29 Aug, 2017 Epigastric pain R10.13 and Encounter for therapeutic drug level monitoring Z51.81 [facility] [id number] [place] [address] 28 Aug, 2017 Epigastric pain R10.13 and Gastro-esophageal reflux disease without esophagitis K21.9 [facility] [address] [place] [address] 22 Aug, 2017 [facility] [address] [place] [address] Aug, Epigastric pain R10.13 [facility] [id number] [place] [address] 20 Aug, [address] [facility] [id number] [place] [address] 14 Aug, 2017 [facility] [id number] [place] [address] 14 Aug, 2017 Generalized anxiety disorder F41.1 and Mild episode of recurrent major depressive disorder F33.0 [facility] [id number] [place] [address] Aug, Epigastric pain R10.13 ; Reflex sympathetic dystrophy G90.50 and Arthritis M19.90 [facility] [address] [place] [id number] [place] [address] Jul, Generalized anxiety disorder F41.1 and Mild episode of recurrent major depressive disorder F33.0 [facility] [address] [address] Jul, BMI 40.0-44.9, adult Z68.41 ; Mild episode of recurrent major depressive disorder F33.0 and Generalized anxiety disorder F41.1 [facility] [address] [id number] [place] [address] Jul, Fibromyalgia M79.7 [facility] [id number] [place] [address] Jun, Mild episode of recurrent major depressive disorder F33.0 and Generalized anxiety disorder F41.1 [facility] [id number] [place] [address] Jun, Fibromyalgia M79.7 [facility] [id number] [place] [address] Jun, Generalized anxiety disorder F41.1 and Mild episode of recurrent major depressive disorder F33.0 [facility] [id number] [place] [address] Jun, Generalized anxiety disorder F41.1 and Mild episode of recurrent major depressive disorder F33.0 [facility] [address] [id number] [place] [address] Jun, Generalized anxiety disorder F41.1 and Mild episode of recurrent major depressive disorder F33.0 [facility] [id number] [place] [address] Jun, [facility] [address] [place] [id number] [place] [address] Jun, Generalized anxiety disorder F41.1 and Mild episode of recurrent major depressive disorder F33.0 [facility] [id number] [place] [address] May, Fibromyalgia M79.7 [facility] [id number] [place] [address] May, Generalized anxiety disorder F41.1 and Mild episode of recurrent major depressive disorder F33.0 [facility] [id number] [place] [address] May, Mixed hyperlipidemia E78.2 ; Arthritis M19.90 ; Reactive depression F32.9 and Hypothyroidism, unspecified type E03.9 [facility] [id number] [place] [address] May, Arthritis M19.90 ; Reactive depression F32.9 ; Mixed hyperlipidemia E78.2 and Hypothyroidism, unspecified type E03.9 [facility] [address] [address] Apr, Fibromyalgia M79.7 [facility] [address] [address] Apr, [facility] [id number] [place] [address] Apr, Fibromyalgia M79.7 [facility] [id number] [place] [address] Mar, Fibromyalgia M79.7 [facility] [id number] [place] [address] Mar, [facility] [address] [address] Mar, Fibromyalgia M79.7 [facility] [id number] [place] [address] Mar, [facility] [address] [address] Feb, Reflex sympathetic dystrophy G90.50 ; Right arm pain M79.[address] [facility] [address] [address] Feb, [facility] [address] [address] Feb, Anxiety F41.9 [facility] [address] [address] 06 Feb, [address] [facility] [address] [address] Feb, [facility] [address] [address] Feb, [facility] [address] [address] Jan, Temporal headache R51 [facility] [address] [address] Jan, Fibromyalgia M79.7 [facility] [address] [address] Dec, Fibromyalgia M79.7 [facility] [address] [address] Nov, Peroneal tendonitis, unspecified laterality M76.70 and Plantar fasciitis, bilateral M72.2 [facility] [id number] [place] [address] Nov, Fibromyalgia M79.7 [facility] [address] [address] October, Fibromyalgia M79.7 [facility] [id number] [place] [address] October, Plantar fasciitis, bilateral M72.2 and Peroneal tendonitis, unspecified laterality M76.70 [facility] [id number] [place] [address] October, Fibromyalgia M79.7 [facility] [place] [address] [address] Sep, Anxiety F41.9 [facility] [address] [address] Aug, Anxiety F41.9 and Adjustment disorder with anxiety F43.22 [facility] [address] [address] Aug, Pain of left foot M79.672 [facility] [address] [address] Aug, Pain of left foot M79.672 and Pain in right foot M79.671 [facility] [address] [address] Aug, Arthritis M19.90 ; Reactive depression F32.9 ; Fibromyalgia M79.7 ; Rosacea L71.9 ; Pain in right foot M79.671 and Pain of left foot M79.672 [facility] [place] [address] [address] Aug, Anxiety F41.9 ; Adjustment disorder with anxiety F43.22 and Reactive depression F32.9 [facility] [id number] [place] [address] Aug, Right elbow pain M25.521 [facility] [address] [address] Aug, Plantar wart of right foot B07.0 and Actinic keratosis L57.0 [facility] [id number] [place] [address] Aug, Fibromyalgia M79.7 [facility] [id number] [place] [address] Jul, Arthritis M19.90 ; Hypothyroidism, unspecified type E03.9 ; Reactive depression F32.9 and Venous insufficiency I87.2 [facility] [address] [address] Jul, Gastroesophageal reflux disease, esophagitis presence not specified K21.9 [facility] [address] [address] Jul, Reflex sympathetic dystrophy G90.50 [facility] [address] [address] Jul, Anxiety F41.9 ; Adjustment disorder with anxiety F43.22 and Reactive depression F32.9 [facility] [place] [address] [address] Jul, [facility] [address] [address] Jul, Right elbow pain M25.521 [facility] [place] [address] [address] Jun, Fibromyalgia M79.7 [facility] [address] [address] Jun, Anxiety F41.9 ; Adjustment disorder with anxiety F43.22 and Reactive depression F32.9 [facility] [id number] [place] [address] Jun, [facility] [address] [address] Jun, Atypical chest pain R07.89 and Adjustment disorder with anxiety F43.22 [place] [address] [id number] Jun, Chest pain, unspecified type R07.9 [facility] [id number] [place] [address] Jun, Fibromyalgia M79.7 [facility] [place] [id number] [place] [address] May, Anxiety F41.9 [facility] [id number] [place] [address] May, [facility] [id number] [place] [address] May, Right elbow pain M25.521 [facility] [id number] [place] [address] Apr, Reflex sympathetic dystrophy G90.50 and Encounter for immunization Z23 [facility] [address] [address] Apr, [facility] [id number] [place] [address] Mar, [facility] [id number] [place] [address] Feb, [facility] [id number] [place] [address] Feb, [facility] [id number] [place] [address] Jan, [facility] [id number] [place] [address] Jan, Right elbow pain M25.521 and Right wrist pain M25.531 [facility] [id number] [place] [address] Jan, [facility] [id number] [place] [address] Dec, Seborrheic keratoses L82.1 [facility] [id number] [place] [address] Dec, [facility] [id number] [place] [address] Dec, [facility] [address], [place] [address] Dec, [place] [place] [id number] [place] [address] Dec, Fibromyalgia M79.7 and Hypothyroidism, unspecified type E03.9 [facility] [place] [id number] [place] [address] Dec, Seborrheic keratoses L82.1 [place] [id number] [place] [address] Dec, [facility] [place] [id number] [place] [address] Dec, [facility] [place] [id number] [place] [address] Nov, Sebaceous cyst L72.3 [place] [id number] [place] [address] October, Breast cancer screening Z12.39 [place] [place] [id number] [place] [address] October, Fibromyalgia M79.7 ; Hypothyroidism, unspecified type E03.9 and Reflex sympathetic dystrophy G90.50 [place] [id number] [place] [address] October, Reflex sympathetic dystrophy G90.50 ; Fibromyalgia M79.7 and Hypothyroidism, unspecified type E03.9 IMMUNIZATIONS No Known Immunizations SOCIAL HISTORY Never Assessed REASON FOR VISIT Controlled Med Refill PLAN OF CARE VITAL SIGNS MEDICATIONS Medication Instructions Dosage Frequency Start Date End Date Duration Status Hydrocodone-Acetaminophen 7.5-325 MG Orally 3 times a day 1 tablet 8h 12 Mar, 2018 28 days Active RESULTS No Results PROCEDURES [...]
--- OUTSIDE RECORDS SUMMARY | 2018-11-16 13:05 | XMS REPORT ---
Author Author FRANK CHAPMAN Organization [facility] Address [address] [place] [address] Care Team Providers Care Almond Blancher Name Role Phone FRANK CHAPMAN Unavailable PROBLEMS Type Condition ICD9-CM Code [id number] Code Onset Dates Condition Status SNOMED Code Problem Reactive depression F32.9 Active 63395721 Problem Plantar wart of right foot B07.0 Active 16315408 Problem Gastroesophageal reflux disease, esophagitis presence not specified K21.9 Active 584835764 Problem Internal derangement of right knee M23.91 Active 544289052527409 Problem Abnormal laboratory test R89.9 Active 914658536 Problem Mixed hyperlipidemia E78.2 Active 402916047 Problem Rosacea L71.9 Active 132401259 Problem Mild episode of recurrent major depressive disorder F33.0 Active 145772499 Problem Generalized anxiety disorder F41.1 Active 84848758 Problem Hypothyroidism, unspecified type E03.9 Active 92669663 Problem Right elbow pain M25.521 Active 53540028 Problem Right wrist pain M25.531 Active 81579118 Problem Reflex sympathetic dystrophy G90.50 Active 32353597 Problem Venous insufficiency I87.2 Active 68625523 Problem Fibromyalgia M79.7 Active 488153607 Problem Arthritis M19.90 Active 1140993 ALLERGIES No Information ENCOUNTERS Encounter Location Date Diagnosis [facility] [id number], [place] [address] Apr, [facility] [address], [place] [address] Apr, [facility] [address], [place] [address] Mar, [facility] [id number], [place] [address] Mar, [facility] [address], [place] [address] Mar, Fibromyalgia M79.7 [place] [id number] [place] [address] Mar, Generalized anxiety disorder F41.1 and Mild episode of recurrent major depressive disorder F33.0 [place] [id number] [place] [address] 24 Feb, 2018 Generalized anxiety disorder F41.1 and Mild episode of recurrent major depressive disorder F33.0 [place] [id number] [place] [address] 13 Feb, 2018 Fibromyalgia M79.7 [place] [id number] [place] [address] 10 Feb, 2018 Generalized anxiety disorder F41.1 and Mild episode of recurrent major depressive disorder F33.0 [place] [id number] [place] [address] Feb, [place] [id number] [place] [address] Feb, Bronchospasm J98.01 and Arthritis M19.90 [place] [id number] [place] [address] Jan, Medicare annual wellness visit, initial Z00.00 ; Reactive depression F32.9 ; Reflex sympathetic dystrophy G90.50 ; Fibromyalgia M79.7 ; BMI 40.0- 44.9, adult Z68.41 ; Hypothyroidism, unspecified type E03.9 ; Gastroesophageal reflux disease, esophagitis presence not specified K21.9 ; Family history of osteoporosis Z82.62 ; Venous insufficiency I87.2 ; Arthritis M19.90 ; Mixed hyperlipidemia E78.2 and Generalized anxiety disorder F41.1 [place] [address] [place] [address] Jan, Generalized anxiety disorder F41.1 and Mild episode of recurrent major depressive disorder F33.0 [place] [id number] [place] [address] Jan, Mild episode of recurrent major depressive disorder F33.0 and Generalized anxiety disorder F41.1 [place] [id number] [place] [address] Jan, Fibromyalgia M79.7 [facility] [id number] [place] [address] Jan, Bronchospasm J98.01 [facility] [address] [address] Jan, [facility] [address] [address] Jan, Generalized anxiety disorder F41.1 and Mild episode of recurrent major depressive disorder F33.0 [place] [id number] [place] [address] Jan, Bronchitis J40 [place] [address] [address] Dec, Mild episode of recurrent major depressive disorder F33.0 [place] [id number] [place] [address] Dec, Generalized anxiety disorder F41.1 and Mild episode of recurrent major depressive disorder F33.0 [place] [id number] [place] [address] Dec, Fibromyalgia M79.7 ; Arthritis M19.90 and Generalized anxiety disorder F41.1 [facility] [id number] [place] [address] Dec, Mild episode of recurrent major depressive disorder F33.0 and Generalized anxiety disorder F41.1 [place] [id number] [place] [address] Dec, Fibromyalgia M79.7 [facility] [id number] [place] [address] Dec, Bronchitis J40 and Internal derangement of right knee M23.91 [facility] [address] [facility] [id number] [address] Dec, Cough R05 [facility] [address] [facility] [id number], [place] [address] Dec, Generalized anxiety disorder F41.1 and Mild episode of recurrent major depressive disorder F33.0 [facility] [address], [place] [address] Dec, [facility] [address] [facility] [id number], [place] [address] Dec, [facility] [address] [facility] [id number], [place] [address] Dec, Mild episode of recurrent major depressive disorder F33.0 and Generalized anxiety disorder F41.1 [facility] [address], [place] [address] Nov, [facility] [id number], [place] [address] Nov, [facility] [address], [place] [address] Nov, [facility] [id number], [place] [address] Nov, Internal derangement of right knee M23.91 [facility] [address], [place] [address] Nov, Generalized anxiety disorder F41.1 and Mild episode of recurrent major depressive disorder F33.0 [facility] [address] [facility] [id number], [place] [address] Nov, Internal derangement of right knee M23.91 [facility] [address] [facility] [id number], [place] [address] Nov, Acute right ankle pain M25.571 ; Acute pain of right knee M25.561 ; Acute left-sided low back pain without sciatica M54.5 and Right leg pain M79.604 [facility] [id number] [place] [address] 15 Nov, 2017 [facility] [id number] [place] [address] 14 Nov, 2017 Fibromyalgia M79.7 [facility] [id number] [place] [address] 13 Nov, 2017 Generalized anxiety disorder F41.1 and Mild episode of recurrent major depressive disorder F33.0 [facility] [id number] [place] [address] Nov, [facility] [id number] [place] [address] October, Generalized anxiety disorder F41.1 and Mild episode of recurrent major depressive disorder F33.0 [facility] [id number] [place] [address] October, Fibromyalgia M79.7 [facility] [id number] [place] [address] October, [facility] [id number] [place] [address] October, Generalized anxiety disorder F41.1 and Mild episode of recurrent major depressive disorder F33.0 [facility] [id number] [place] [address] October, [facility] [id number] [place] [address] Sep, Gastroesophageal reflux disease, esophagitis presence not specified K21.9 and Abnormal laboratory test R89.9 [facility] [id number] [place] [address] Sep, Fibromyalgia M79.7 [facility] [id number] [place] [address] Sep, Generalized anxiety disorder F41.1 and Mild episode of recurrent major depressive disorder F33.0 [facility] [address], [place] [address] Sep, Epigastric pain R10.13 [facility] [id number] [place] [address] 10 Sep, 2017 Mild episode of recurrent major depressive disorder F33.0 and Generalized anxiety disorder F41.1 [facility] [id number] [place] [address] Sep, Abnormal laboratory test R89.9 [facility] [id number] [place] [address] Sep, Generalized anxiety disorder F41.1 and Mild episode of recurrent major depressive disorder F33.0 [facility] [id number] [place] [address] 29 Aug, 2017 Epigastric pain R10.13 and Encounter for therapeutic drug level monitoring Z51.81 [facility] [id number] [place] [address] 28 Aug, 2017 Epigastric pain R10.13 and Gastro-esophageal reflux disease without esophagitis K21.9 [facility] [address], [place] [address] 22 Aug, 2017 [facility] [id number] [place] [address] Aug, Epigastric pain R10.13 [facility] [address] [place] [address] 20 Aug, 2017 Fibromyalgia M79.7 [facility] [id number] [place] [address] 14 Aug, 2017 [facility] [id number] [place] [address] 14 Aug, 2017 Generalized anxiety disorder F41.1 and Mild episode of recurrent major depressive disorder F33.0 [facility] [address] [place] [address] Aug, Epigastric pain R10.13 ; Reflex sympathetic dystrophy G90.50 and Arthritis M19.90 [facility] [address] [address] Jul, Generalized anxiety disorder F41.1 and Mild episode of recurrent major depressive disorder F33.0 [facility] [address] [address] Jul, BMI 40.0-44.9, adult Z68.41 ; Mild episode of recurrent major depressive disorder F33.0 and Generalized anxiety disorder F41.1 [facility] [address] [address] Jul, Fibromyalgia M79.7 [facility] [address] [address] Jun, Mild episode of recurrent major depressive disorder F33.0 and Generalized anxiety disorder F41.1 [place] [id number] [place] [address] Jun, Fibromyalgia M79.7 [facility] [address] [address] Jun, Generalized anxiety disorder F41.1 and Mild episode of recurrent major depressive disorder F33.0 [facility] [id number] [place] [address] Jun, Generalized anxiety disorder F41.1 and Mild episode of recurrent major depressive disorder F33.0 [facility] [id number] [place] [address] Jun, Generalized anxiety disorder F41.1 and Mild episode of recurrent major depressive disorder F33.0 [facility] [id number] [place] [address] Jun, [facility] [id number] [place] [address] Jun, Generalized anxiety disorder F41.1 and Mild episode of recurrent major depressive disorder F33.0 [facility] [id number] [place] [address] May, Fibromyalgia M79.7 [facility] [id number] [place] [address] May, Generalized anxiety disorder F41.1 and Mild episode of recurrent major depressive disorder F33.0 [facility] [id number] [place] [address] May, Mixed hyperlipidemia E78.2 ; Arthritis M19.90 ; Reactive depression F32.9 and Hypothyroidism, unspecified type E03.9 [facility] [id number] [place] [address] May, Arthritis M19.90 ; Reactive depression F32.9 ; Mixed hyperlipidemia E78.2 and Hypothyroidism, unspecified type E03.9 [facility] [id number] [place] [address] Apr, Fibromyalgia M79.7 [facility] [id number] [place] [address] Apr, [facility] [id number] [place] [address] Apr, Fibromyalgia M79.7 [facility] [id number] [place] [address] Mar, Fibromyalgia M79.7 [facility] [id number] [place] [address] Mar, [facility] [id number] [place] [address] Mar, Fibromyalgia M79.7 [facility] [id number] [place] [address] Mar, [facility] [id number] [place] [address] Feb, Reflex sympathetic dystrophy G90.50 ; Right arm pain M79.601 and Fibromyalgia M79.7 [facility] [address] [address] Feb, [facility] [address] [address] Feb, Anxiety F41.9 [facility] [address] [address] Feb, Fibromyalgia M79.7 [facility] [address] [address] Feb, [facility] [address] [address] Feb, [facility] [address] [address] Jan, Temporal headache R51 [facility] [address] [address] Jan, Fibromyalgia M79.7 [facility] [id number] [place] [address] Dec, Fibromyalgia M79.7 [facility] [address] [address] Nov, Peroneal tendonitis, unspecified laterality M76.70 and Plantar fasciitis, bilateral M72.2 [facility] [id number] [place] [address] Nov, Fibromyalgia M79.7 [facility] [id number] [place] [address] October, Fibromyalgia M79.7 [facility] [id number] [place] [address] October, Plantar fasciitis, bilateral M72.2 and Peroneal tendonitis, unspecified laterality M76.70 [place] [id number] [place] [address] October, Fibromyalgia M79.7 [place] [address] [address] Sep, Anxiety F41.9 [place] [id number] [place] [address] Aug, Anxiety F41.9 and Adjustment disorder with anxiety F43.22 [place] [id number] [place] [address] Aug, Pain of left foot M79.672 [place] [address] [address] Aug, Pain of left foot M79.672 and Pain in right foot M79.671 [place] [address] [address] Aug, Arthritis M19.90 ; Reactive depression F32.9 ; Fibromyalgia M79.7 ; Rosacea L71.9 ; Pain in right foot M79.671 and Pain of left foot M79.672 [place] [id number] [place] [address] Aug, Anxiety F41.9 ; Adjustment disorder with anxiety F43.22 and Reactive depression F32.9 [place] [id number] [place] [address] Aug, Right elbow pain M25.521 [place] [id number] [place] [address] Aug, Plantar wart of right foot B07.0 and Actinic keratosis L57.0 [place] [id number] [place] [address] Aug, Fibromyalgia M79.7 [place] [id number] [place] [address] Jul, Arthritis M19.90 ; Hypothyroidism, unspecified type E03.9 ; Reactive depression F32.9 and Venous insufficiency I87.2 [place] [address] [address] Jul, Gastroesophageal reflux disease, esophagitis presence not specified K21.9 [place] [address] [address] Jul, Reflex sympathetic dystrophy G90.50 [place] [address] [address] Jul, Anxiety F41.9 ; Adjustment disorder with anxiety F43.22 and Reactive depression F32.9 [place] [address] [address] Jul, [place] [address] [address] Jul, Right elbow pain M25.521 [place] [address] [address] Jun, Fibromyalgia M79.7 [place] [address] [address] Jun, Anxiety F41.9 ; Adjustment disorder with anxiety F43.22 and Reactive depression F32.9 [place] [address] [address] Jun, [place] [address] [address] Jun, Atypical chest pain R07.89 and Adjustment disorder with anxiety F43.22 [place] [address] [id number] Jun, Chest pain, unspecified type R07.9 [place] [address] [address] Jun, Fibromyalgia M79.7 [place] [address] [place] [address] May, Anxiety F41.9 [facility] [address] [address] May, [facility] [id number] [place] [address] May, Right elbow pain M25.521 [facility] [address] [address] Apr, Reflex sympathetic dystrophy G90.50 and Encounter for immunization Z23 [facility] [address] [address] Apr, [facility] [id number] [place] [address] Mar, [facility] [id number] [place] [address] Feb, [facility] [id number] [place] [address] Feb, [facility] [id number] [place] [address] Jan, [facility] [id number] [place] [address] Jan, Right elbow pain M25.521 and Right wrist pain M25.531 [facility] [id number] [place] [address] Jan, [facility] [id number] [place] [address] Dec, Seborrheic keratoses L82.1 [facility] [id number] [place] [address] Dec, [facility] [id number] [place] [address] Dec, [facility] [address] [place] [address] Dec, [place] [id number] [place] [address] Dec, Fibromyalgia M79.7 and Hypothyroidism, unspecified type E03.9 [place] [id number] [place] [address] Dec, Seborrheic keratoses L82.1 [place] [id number] [place] [address] Dec, [place] [id number] [place] [address] Dec, [place] [id number] [place] [address] Nov, Sebaceous cyst L72.3 [place] [address] [address] October, Breast cancer screening Z12.39 [place] [id number] [place] [address] October, Fibromyalgia M79.7 ; Hypothyroidism, unspecified type E03.9 and Reflex sympathetic dystrophy G90.50 [place] [address] [place] [address] October, Reflex sympathetic dystrophy G90.50 ; Fibromyalgia M79.7 and Hypothyroidism, unspecified type E03.9 IMMUNIZATIONS No Known Immunizations SOCIAL HISTORY Never Assessed REASON FOR VISIT f/u PLAN OF CARE Activity Details Follow Up 2 Weeks Reason:depression, anxiety VITAL SIGNS MEDICATIONS Unknown Medications RESULTS No Results PROCEDURES Procedure Date Ordered Result Body Site [facility] VISIT MENTAL HEALTH ESTAB PT Mar 27, 2018 Psychotherapy, patient &/family, 45 minutes, established patient Mar 27, 2018 INSTRUCTIONS MEDICATIONS ADMINISTERED No Known Medications [...]
--- OUTSIDE RECORDS SUMMARY | 2018-11-16 13:06 | XMS REPORT ---
Author Author FRANK CHAPMAN Organization [facility] Address [address] [place] [address] Care Team Providers Care Fisher Purse Seine Name Role Phone FRANK CHAPMAN Unavailable PROBLEMS Type Condition ICD9-CM Code IJN76-DQ Code Onset Dates Condition Status SNOMED Code Problem Reactive depression F32.9 Active 59383588 Problem Plantar wart of right foot B07.0 Active 77158573 Problem Gastroesophageal reflux disease, esophagitis presence not specified K21.9 Active 597728650 Problem Internal derangement of right knee M23.91 Active 168103474150862 Problem Abnormal laboratory test R89.9 Active 410715642 Problem Mixed hyperlipidemia E78.2 Active 173419716 Problem Rosacea L71.9 Active 315077865 Problem Mild episode of recurrent major depressive disorder F33.0 Active 020581094 Problem Generalized anxiety disorder F41.1 Active 76740408 Problem Hypothyroidism, unspecified type E03.9 Active 78465253 Problem Right elbow pain M25.521 Active 33796381 Problem Right wrist pain M25.531 Active 41261938 Problem Reflex sympathetic dystrophy G90.50 Active 27095574 Problem Venous insufficiency I87.2 Active 45614500 Problem Fibromyalgia M79.7 Active 914303393 Problem Arthritis M19.90 Active 4424901 ALLERGIES No Information ENCOUNTERS Encounter Location Date Diagnosis [facility] [id number] [address] Apr, [facility] [address] [address] Mar, [facility] [address] [address] Mar, [facility] [id number] [address] Mar, [facility] [address] [place] [address] 24 Feb, 2018 Generalized anxiety disorder F41.1 and Mild episode of recurrent major depressive disorder F33.0 [facility] [id number] [place] [address] 13 Feb, 2018 Fibromyalgia M79.7 [facility] [id number] [place] [address] 10 Feb, 2018 Generalized anxiety disorder F41.1 and Mild episode of recurrent major depressive disorder F33.0 [facility] [id number] [place] [address] 06 Feb, 2018 [facility] [id number] [place] [address] 04 Feb, 2018 Bronchospasm J98.01 and Arthritis M19.90 [facility] [id number] [place] [address] Jan, Medicare annual wellness visit, initial Z00.00 ; Reactive depression F32.9 ; Reflex sympathetic dystrophy G90.50 ; Fibromyalgia M79.7 ; BMI 40.0- 44.9, adult Z68.41 ; Hypothyroidism, unspecified type E03.9 ; Gastroesophageal reflux disease, esophagitis presence not specified K21.9 ; Family history of osteoporosis Z82.62 ; Venous insufficiency I87.2 ; Arthritis M19.90 ; Mixed hyperlipidemia E78.2 and Generalized anxiety disorder F41.1 [facility] [id number] [place] [address] Jan, Generalized anxiety disorder F41.1 and Mild episode of recurrent major depressive disorder F33.0 [facility] [id number] [place] [address] Jan, Mild episode of recurrent major depressive disorder F33.0 and Generalized anxiety disorder F41.1 [facility] [id number] [place] [address] Jan, Fibromyalgia M79.7 [facility] [id number] [place] [address] Jan, Bronchospasm J98.01 [facility] [address] [address] Jan, [facility] [address] [address] Jan, Generalized anxiety disorder F41.1 and Mild episode of recurrent major depressive disorder F33.0 [facility] [id number] [place] [address] Jan, Bronchitis J40 [facility] [address] [address] Dec, Mild episode of recurrent major depressive disorder F33.0 [facility] [id number] [place] [address] Dec, Generalized anxiety disorder F41.1 and Mild episode of recurrent major depressive disorder F33.0 [facility] [id number] [place] [address] Dec, Fibromyalgia M79.7 ; Arthritis M19.90 and Generalized anxiety disorder F41.1 [facility] [id number] [place] [address] Dec, Mild episode of recurrent major depressive disorder F33.0 and Generalized anxiety disorder F41.1 [facility] [id number] [place] [address] Dec, Fibromyalgia M79.7 [facility] [id number] [place] [address] Dec, Bronchitis J40 and Internal derangement of right knee M23.91 [facility] [id number] [place] [address] Dec, Cough R05 [facility] [id number] [place] [address] Dec, Generalized anxiety disorder F41.1 and Mild episode of recurrent major depressive disorder F33.0 [facility] [address] [address] Dec, [facility] [address], [place] [address] Dec, [facility] [address], [place] [address] Dec, Mild episode of recurrent major depressive disorder F33.0 and Generalized anxiety disorder F41.1 [facility] [id number] [address] Nov, [facility] [id number] [place] [address] Nov, [facility] [id number] [place] [address] Nov, [facility] [id number] [place] [address] Nov, Internal derangement of right knee M23.91 [facility] [address] [place] [address] Nov, Generalized anxiety disorder F41.1 and Mild episode of recurrent major depressive disorder F33.0 [facility] [address], [place] [address] Nov, Internal derangement of right knee M23.91 [facility] [address], [place] [address] Nov, Acute right ankle pain M25.571 ; Acute pain of right knee M25.561 ; Acute left-sided low back pain without sciatica M54.5 and Right leg pain M79.604 [facility] [id number] [address] 15 Nov, 2017 [facility] [address], [place] [address] 14 Nov, 2017 Fibromyalgia M79.7 [facility] [address] [address] Nov, Generalized anxiety disorder F41.1 and Mild episode of recurrent major depressive disorder F33.0 [facility] [id number] [place] [address] Nov, [facility] [id number] [place] [address] October, Generalized anxiety disorder F41.1 and Mild episode of recurrent major depressive disorder F33.0 [facility] [id number] [place] [address] October, Fibromyalgia M79.7 [facility] [id number] [place] [address] October, [facility] [id number] [place] [address] October, Generalized anxiety disorder F41.1 and Mild episode of recurrent major depressive disorder F33.0 [facility] [id number] [place] [address] October, [facility] [id number] [place] [address] Sep, Gastroesophageal reflux disease, esophagitis presence not specified K21.9 and Abnormal laboratory test R89.9 [facility] [id number] [place] [address] Sep, Fibromyalgia M79.7 [facility] [address] [place] [address] Sep, Generalized anxiety disorder F41.1 and Mild episode of recurrent major depressive disorder F33.0 [facility] [id number] [place] [address] Sep, Epigastric pain R10.13 [facility] [id number] [place] [address] Sep, Mild episode of recurrent major depressive disorder F33.0 and Generalized anxiety disorder F41.1 [facility] [id number] [place] [address] Sep, Abnormal laboratory test R89.9 [facility] [address] [address] Sep, Generalized anxiety disorder F41.1 and Mild episode of recurrent major depressive disorder F33.0 [facility] [address] [address] Aug, Epigastric pain R10.13 and Encounter for therapeutic drug level monitoring Z51.81 [facility] [address] [address] Aug, Epigastric pain R10.13 and Gastro-esophageal reflux disease without esophagitis K21.9 [facility] [address] [address] Aug, [facility] [address] [address] Aug, Epigastric pain R10.13 [facility] [address] [address] Aug, Fibromyalgia M79.7 [facility] [address] [address] 14 Aug, 2017 [facility] [address] [address] Aug, Generalized anxiety disorder F41.1 and Mild episode of recurrent major depressive disorder F33.0 [facility] [address] [address] 08 Aug, 2017 Epigastric pain R10.13 ; Reflex sympathetic dystrophy G90.50 and Arthritis M19.90 [facility] [id number] [place] [address] Jul, Generalized anxiety disorder F41.1 and Mild episode of recurrent major depressive disorder F33.0 [facility] [address], [place] [address] Jul, BMI 40.0-44.9, adult Z68.41 ; Mild episode of recurrent major depressive disorder F33.0 and Generalized anxiety disorder F41.1 [facility] [address], [place] [address] Jul, Fibromyalgia M79.7 [facility] [id number] [place] [address] Jun, Mild episode of recurrent major depressive disorder F33.0 and Generalized anxiety disorder F41.1 [facility] [id number] [place] [address] Jun, Fibromyalgia M79.7 [facility] [address], [place] [address] Jun, Generalized anxiety disorder F41.1 and Mild episode of recurrent major depressive disorder F33.0 [facility] [address] [place] [address] Jun, Generalized anxiety disorder F41.1 and Mild episode of recurrent major depressive disorder F33.0 [facility] [address] [place] [address] Jun, Generalized anxiety disorder F41.1 and Mild episode of recurrent major depressive disorder F33.0 [facility] [address] [address] Jun, [facility] [address], [place] [address] Jun, Generalized anxiety disorder F41.1 and Mild episode of recurrent major depressive disorder F33.0 [facility] [id number] [address] May, Fibromyalgia M79.7 [facility] [address], [place] [address] May, Generalized anxiety disorder F41.1 and Mild episode of recurrent major depressive disorder F33.0 [facility] [id number] [place] [address] May, Mixed hyperlipidemia E78.2 ; Arthritis M19.90 ; Reactive depression F32.9 and Hypothyroidism, unspecified type E03.9 [facility] [address] [address] May, Arthritis M19.90 ; Reactive depression F32.9 ; Mixed hyperlipidemia E78.2 and Hypothyroidism, unspecified type E03.9 [facility] [address] [address] Apr, Fibromyalgia M79.7 [facility] [address] [address] Apr, [facility] [address] [address] Apr, Fibromyalgia M79.7 [facility] [address] [address] Mar, Fibromyalgia M79.7 [facility] [address] [address] Mar, [facility] [id number] [place] [address] Mar, Fibromyalgia M79.7 [facility] [address] [address] Mar, [facility] [id number] [place] [address] Feb, Reflex sympathetic dystrophy G90.50 ; Right arm pain M79.601 and Fibromyalgia M79.7 [facility] [id number] [place] [address] Feb, [facility] [address] [address] 07 Feb, 2017 Anxiety F41.9 [facility] [id number] [place] [address] 06 Feb, 2017 Fibromyalgia M79.7 [facility] [id number] [place] [address] Feb, [facility] [id number] [place] [address] Feb, [facility] [address] [address] Jan, Temporal headache R51 [facility] [address] [address] Jan, Fibromyalgia M79.7 [facility] [id number] [place] [address] Dec, Fibromyalgia M79.7 [facility] [address] [address] Nov, Peroneal tendonitis, unspecified laterality M76.70 and Plantar fasciitis, bilateral M72.2 [facility] [address] [address] Nov, Fibromyalgia M79.7 [facility] [id number] [place] [address] October, Fibromyalgia M79.7 [facility] [id number] [place] [address] October, Plantar fasciitis, bilateral M72.2 and Peroneal tendonitis, unspecified laterality M76.70 [facility] [address] [address] October, Fibromyalgia M79.7 [facility] [id number] [place] [address] Sep, Anxiety F41.9 [facility] [address] [address] Aug, Anxiety F41.9 and Adjustment disorder with anxiety F43.22 [facility] [id number] [place] [address] Aug, Pain of left foot M79.672 [address] [id number] [place] [address] Aug, Pain of left foot M79.672 and Pain in right foot M79.671 [facility] [id number] [place] [address] Aug, Arthritis M19.90 ; Reactive depression F32.9 ; Fibromyalgia M79.7 ; Rosacea L71.9 ; Pain in right foot M79.671 and Pain of left foot M79.672 [facility] [id number] [place] [address] Aug, Anxiety F41.9 ; Adjustment disorder with anxiety F43.22 and Reactive depression F32.9 [facility] [id number] [place] [address] Aug, Right elbow pain M25.521 [facility] [address] [address] Aug, Plantar wart of right foot B07.0 and Actinic keratosis L57.0 [facility] [id number] [place] [address] Aug, Fibromyalgia M79.7 [facility] [id number] [place] [address] Jul, Arthritis M19.90 ; Hypothyroidism, unspecified type E03.9 ; Reactive depression F32.9 and Venous insufficiency I87.2 [facility] [id number] [place] [address] Jul, Gastroesophageal reflux disease, esophagitis presence not specified K21.9 [facility] [address] [address] 17 Jul, 2016 Reflex sympathetic dystrophy G90.50 [facility] [address] [address] 17 Jul, 2016 Anxiety F41.9 ; Adjustment disorder with anxiety F43.22 and Reactive depression F32.9 [facility] [address] [address] 15 Jul, 2016 [facility] [address] [address] Jul, Right elbow pain M25.521 [facility] [address] [address] Jun, Fibromyalgia M79.7 [facility] [address] [address] Jun, Anxiety F41.9 ; Adjustment disorder with anxiety F43.22 and Reactive depression F32.9 [facility] [address] [address] Jun, [facility] [address] [address] Jun, Atypical chest pain R07.89 and Adjustment disorder with anxiety F43.22 [facility] [address] [id number] Jun, Chest pain, unspecified type R07.9 [facility] [address] [address] Jun, Fibromyalgia M79.7 [facility] [address] [address] May, Anxiety F41.9 [facility] [address] [address] 14 May, 2016 [facility] [address] [address] May, Right elbow pain M25.521 [facility] [id number] [place] [address] Apr, Reflex sympathetic dystrophy G90.50 and Encounter for immunization Z23 [facility] [id number] [place] [address] Apr, [facility] [address] [address] Mar, [facility] [address] [address] Feb, [facility] [address] [address] Feb, [facility] [address] [address] Jan, [facility] [address] [address] Jan, Right elbow pain M25.521 and Right wrist pain M25.531 [facility] [address] [address] Jan, [facility] [address] [address] Dec, Seborrheic keratoses L82.1 [facility] [address] [address] Dec, [facility] [id number] [place] [address] Dec, [facility] [address] [address] Dec, [facility] [address] [address] Dec, Fibromyalgia M79.7 and Hypothyroidism, unspecified type E03.9 [facility] [address] [address] Dec, Seborrheic keratoses L82.1 [facility] [id number] [address] Dec, [facility] [address] [place] [address] Dec, [facility] [id number] [place] [address] Nov, Sebaceous cyst L72.3 [facility] [address] [place] [address] October, Breast cancer screening Z12.39 [facility] [address] [place] [address] October, Fibromyalgia M79.7 ; Hypothyroidism, unspecified type E03.9 and Reflex sympathetic dystrophy G90.50 [facility] [address], [place] [address] October, Reflex sympathetic dystrophy G90.50 ; Fibromyalgia M79.7 and Hypothyroidism, unspecified type E03.9 IMMUNIZATIONS No Known Immunizations SOCIAL HISTORY Never Assessed REASON FOR VISIT f/u PLAN OF CARE Activity Details Follow Up Next available Reason:depression & anxiety VITAL SIGNS MEDICATIONS Unknown Medications RESULTS No Results PROCEDURES Procedure Date Ordered Result Body Site [facility] VISIT MENTAL HEALTH ESTAB PT Mar 13, 2018 Psychotherapy, patient &/family, 45 minutes, established patient Mar 13, 2018 INSTRUCTIONS MEDICATIONS ADMINISTERED No Known Medications [...]
--- OUTSIDE RECORDS SUMMARY | 2018-11-16 13:06 | XMS REPORT ---
Author Author JOE BAI [facility] Address [address] [place] [address] Care Team Providers Care Sales Support Representative Name Role Phone JOE BAI Unavailable PROBLEMS Type Condition ICD9-CM Code RFU39-PI Code Onset Dates Condition Status SNOMED Code Problem Reactive depression F32.9 Active 62752262 Problem Plantar wart of right foot B07.0 Active 68770195 Problem Gastroesophageal reflux disease, esophagitis presence not specified K21.9 Active 051855788 Problem Internal derangement of right knee M23.91 Active [id number] Problem Abnormal laboratory test R89.9 Active 690908371 Problem Mixed hyperlipidemia E78.2 Active 556057774 Problem Rosacea L71.9 Active 586268864 Problem Mild episode of recurrent major depressive disorder F33.0 Active 972314487 Problem Generalized anxiety disorder F41.1 Active 28516565 Problem Hypothyroidism, unspecified type E03.9 Active 20725508 Problem Right elbow pain M25.521 Active 24515512 Problem Right wrist pain M25.531 Active 62926651 Problem Reflex sympathetic dystrophy G90.50 Active 43756955 Problem Venous insufficiency I87.2 Active 29896358 Problem Fibromyalgia M79.7 Active 106793247 Problem Arthritis M19.90 Active 9441098 ALLERGIES No Information ENCOUNTERS Encounter Location Date Diagnosis [facility] [id number] [address] Apr, [facility] [id number] [place] [address] Mar, [facility] [address] [place] [address] Mar, [facility] [address] [address] Mar, [facility] [address] [address] 24 Feb, 2018 Generalized anxiety disorder F41.1 and Mild episode of recurrent major depressive disorder F33.0 [facility] [id number] [place] [address] 13 Feb, 2018 Fibromyalgia M79.7 [facility] [id number] [place] [address] 10 Feb, 2018 Generalized anxiety disorder F41.1 and Mild episode of recurrent major depressive disorder F33.0 [facility] [id number] [place] [address] 06 Feb, 2018 [facility] [id number] [place] [address] 04 Feb, 2018 Bronchospasm J98.01 and Arthritis M19.90 [facility] [id number] [place] [address] Jan, Medicare annual wellness visit, initial Z00.00 ; Reactive depression F32.9 ; Reflex sympathetic dystrophy G90.50 ; Fibromyalgia M79.7 ; BMI 40.0- 44.9, adult Z68.41 ; Hypothyroidism, unspecified type E03.9 ; Gastroesophageal reflux disease, esophagitis presence not specified K21.9 ; Family history of osteoporosis Z82.62 ; Venous insufficiency I87.2 ; Arthritis M19.90 ; Mixed hyperlipidemia E78.2 and Generalized anxiety disorder F41.1 [facility] [address] [place] [address] Jan, Generalized anxiety disorder F41.1 and Mild episode of recurrent major depressive disorder F33.0 [facility] [id number] [place] [address] Jan, Mild episode of recurrent major depressive disorder F33.0 and Generalized anxiety disorder F41.1 [facility] [id number] [place] [address] Jan, Fibromyalgia M79.7 [facility] [id number] [place] [address] Jan, Bronchospasm J98.01 [facility] [id number] [place] [address] Jan, [facility] [id number] [place] [address] Jan, Generalized anxiety disorder F41.1 and Mild episode of recurrent major depressive disorder F33.0 [facility] [id number] [place] [address] Jan, Bronchitis J40 [facility] [address] [address] Dec, Mild episode of recurrent major depressive disorder F33.0 [facility] [id number] [place] [address] Dec, Generalized anxiety disorder F41.1 and Mild episode of recurrent major depressive disorder F33.0 [facility] [id number] [place] [address] Dec, Fibromyalgia M79.7 ; Arthritis M19.90 and Generalized anxiety disorder F41.1 [facility] [id number] [place] [address] Dec, Mild episode of recurrent major depressive disorder F33.0 and Generalized anxiety disorder F41.1 [facility] [id number] [place] [address] Dec, Fibromyalgia M79.7 [facility] [id number] [place] [address] Dec, Bronchitis J40 and Internal derangement of right knee M23.91 [facility] [id number] [place] [address] Dec, Cough R05 [facility] [id number] [place] [address] Dec, Generalized anxiety disorder F41.1 and Mild episode of recurrent major depressive disorder F33.0 [facility] [address] [address] Dec, [facility] [address] [address] Dec, [facility] [address] [address] Dec, Mild episode of recurrent major depressive disorder F33.0 and Generalized anxiety disorder F41.1 [facility] [address] [place] [address] 30 Nov, 2017 [facility] [id number] [place] [address] Nov, [facility] [id number] [place] [address] Nov, [facility] [id number] [place] [address] Nov, Internal derangement of right knee M23.91 [facility] [address] [place] [address] Nov, Generalized anxiety disorder F41.1 and Mild episode of recurrent major depressive disorder F33.0 [facility] [address] [address] Nov, Internal derangement of right knee M23.91 [facility] [address] [address] Nov, Acute right ankle pain M25.571 ; Acute pain of right knee M25.561 ; Acute left-sided low back pain without sciatica M54.5 and Right leg pain M79.604 [facility] [address] [address] 15 Nov, 2017 [facility] [address] [address] 14 Nov, 2017 Fibromyalgia M79.7 [facility] [address] [place] [address] Nov, Generalized anxiety disorder F41.1 and Mild episode of recurrent major depressive disorder F33.0 [facility] [id number] [place] [address] Nov, [facility] [id number] [place] [address] October, Generalized anxiety disorder F41.1 and Mild episode of recurrent major depressive disorder F33.0 [facility] [id number] [place] [address] October, Fibromyalgia M79.7 [facility] [id number] [place] [address] October, [facility] [id number] [place] [address] October, Generalized anxiety disorder F41.1 and Mild episode of recurrent major depressive disorder F33.0 [facility] [id number] [place] [address] October, [facility] [id number] [place] [address] Sep, Gastroesophageal reflux disease, esophagitis presence not specified K21.9 and Abnormal laboratory test R89.9 [facility] [id number] [place] [address] Sep, Fibromyalgia M79.7 [facility] [id number] [place] [address] Sep, Generalized anxiety disorder F41.1 and Mild episode of recurrent major depressive disorder F33.0 [facility] [id number] [place] [address] Sep, Epigastric pain R10.13 [facility] [id number] [place] [address] Sep, Mild episode of recurrent major depressive disorder F33.0 and Generalized anxiety disorder F41.1 [facility] [id number] [place] [address] Sep, Abnormal laboratory test R89.9 [facility] [address] [address] Sep, Generalized anxiety disorder F41.1 and Mild episode of recurrent major depressive disorder F33.0 [facility] [address] [address] 29 Aug, 2017 Epigastric pain R10.13 and Encounter for therapeutic drug level monitoring Z51.81 [facility] [address] [address] Aug, Epigastric pain R10.13 and Gastro-esophageal reflux disease without esophagitis K21.9 [facility] [address] [address] Aug, [facility] [address] [address] Aug, Epigastric pain R10.13 [facility] [address] [address] Aug, Fibromyalgia M79.7 [facility] [address] [address] Aug, [facility] [address] [address] Aug, Generalized anxiety disorder F41.1 and Mild episode of recurrent major depressive disorder F33.0 [facility] [address] [address] 08 Aug, 2017 Epigastric pain R10.13 ; Reflex sympathetic dystrophy G90.50 and Arthritis M19.90 [facility] [address] [address] Jul, Generalized anxiety disorder F41.1 and Mild episode of recurrent major depressive disorder F33.0 [facility] [address] [address] Jul, BMI 40.0-44.9, adult Z68.41 ; Mild episode of recurrent major depressive disorder F33.0 and Generalized anxiety disorder F41.1 [facility] [address] [address] Jul, Fibromyalgia M79.7 [facility] [id number] [place] [address] Jun, Mild episode of recurrent major depressive disorder F33.0 and Generalized anxiety disorder F41.1 [facility] [id number] [place] [address] Jun, Fibromyalgia M79.7 [facility] [address] [address] Jun, Generalized anxiety disorder F41.1 and Mild episode of recurrent major depressive disorder F33.0 [facility] [id number] [place] [address] Jun, Generalized anxiety disorder F41.1 and Mild episode of recurrent major depressive disorder F33.0 [facility] [id number] [address] Jun, Generalized anxiety disorder F41.1 and Mild episode of recurrent major depressive disorder F33.0 [facility] [address] [address] Jun, [facility] [address] [facility] [id number] [address] Jun, Generalized anxiety disorder F41.1 and Mild episode of recurrent major depressive disorder F33.0 [facility] [id number] [address] May, Fibromyalgia M79.7 [facility] [id number] [address] May, Generalized anxiety disorder F41.1 and Mild episode of recurrent major depressive disorder F33.0 [facility] [address] [address] May, Mixed hyperlipidemia E78.2 ; Arthritis M19.90 ; Reactive depression F32.9 and Hypothyroidism, unspecified type E03.9 [facility] [address] [address] May, Arthritis M19.90 ; Reactive depression F32.9 ; Mixed hyperlipidemia E78.2 and Hypothyroidism, unspecified type E03.9 [facility] [address] [address] Apr, Fibromyalgia M79.7 [facility] [address] [address] Apr, [facility] [address] [address] Apr, Fibromyalgia M79.7 [facility] [address] [address] Mar, Fibromyalgia M79.7 [facility] [address] [address] Mar, [facility] [id number] [place] [address] Mar, Fibromyalgia M79.7 [facility] [id number] [place] [address] Mar, [facility] [id number] [place] [address] Feb, Reflex sympathetic dystrophy G90.50 ; Right arm pain M79.601 and Fibromyalgia M79.7 [facility] [id number] [place] [address] Feb, [facility] [address] [address] 07 Feb, 2017 Anxiety F41.9 [facility] [id number] [place] [address] 06 Feb, 2017 Fibromyalgia M79.7 [facility] [id number] [place] [address] Feb, [facility] [id number] [place] [address] Feb, [facility] [address] [address] Jan, Temporal headache R51 [facility] [address] [address] Jan, Fibromyalgia M79.7 [facility] [address] [address] Dec, Fibromyalgia M79.7 [facility] [id number] [place] [address] Nov, Peroneal tendonitis, unspecified laterality M76.70 and Plantar fasciitis, bilateral M72.2 [facility] [address] [address] Nov, Fibromyalgia M79.7 [facility] [id number] [place] [address] October, Fibromyalgia M79.7 [facility] [id number] [place] [address] October, Plantar fasciitis, bilateral M72.2 and Peroneal tendonitis, unspecified laterality M76.70 [facility] [address] [address] October, Fibromyalgia M79.7 [facility] [id number] [place] [address] Sep, Anxiety F41.9 [facility] [address] [address] Aug, Anxiety F41.9 and Adjustment disorder with anxiety F43.22 [facility] [id number] [place] [address] Aug, Pain of left foot M79.672 [facility] [id number] [place] [address] Aug, Pain of left foot M79.672 and Pain in right foot M79.671 [facility] [id number] [place] [address] Aug, Arthritis M19.90 ; Reactive depression F32.9 ; Fibromyalgia M79.7 ; Rosacea L71.9 ; Pain in right foot M79.671 and Pain of left foot M79.672 [facility] [id number] [place] [address] Aug, Anxiety F41.9 ; Adjustment disorder with anxiety F43.22 and Reactive depression F32.9 [facility] [address] [address] Aug, Right elbow pain M25.521 [facility] [id number] [place] [address] Aug, Plantar wart of right foot B07.0 and Actinic keratosis L57.0 [facility] [id number] [place] [address] Aug, Fibromyalgia M79.7 [facility] [id number] [place] [address] Jul, Arthritis M19.90 ; Hypothyroidism, unspecified type E03.9 ; Reactive depression F32.9 and Venous insufficiency I87.2 [facility] [id number] [place] [address] Jul, Gastroesophageal reflux disease, esophagitis presence not specified K21.9 [facility] [address] [place] [address] 17 Jul, 2016 Reflex sympathetic dystrophy G90.50 [facility] [address] [address] 17 Jul, 2016 Anxiety F41.9 ; Adjustment disorder with anxiety F43.22 and Reactive depression F32.9 [facility] [address] [address] Jul, [facility] [address] [address] Jul, Right elbow pain M25.521 [facility] [address] [address] Jun, Fibromyalgia M79.7 [facility] [address] [address] Jun, Anxiety F41.9 ; Adjustment disorder with anxiety F43.22 and Reactive depression F32.9 [facility] [address] [address] Jun, [facility] [address] [address] Jun, Atypical chest pain R07.89 and Adjustment disorder with anxiety F43.22 [facility] [address] [id number] Jun, Chest pain, unspecified type R07.9 [facility] [id number] [place] [address] Jun, Fibromyalgia M79.7 [facility] [address] [address] May, Anxiety F41.9 [facility] [id number] [place] [address] May, [facility] [address] [address] May, Right elbow pain M25.521 [facility] [id number] [place] [address] Apr, Reflex sympathetic dystrophy G90.50 and Encounter for immunization Z23 [facility] [id number] [place] [address] Apr, [facility] [address] [address] Mar, [facility] [id number] [place] [address] Feb, [facility] [address] [address] Feb, [facility] [id number] [place] [address] Jan, [facility] [address] [address] Jan, Right elbow pain M25.521 and Right wrist pain M25.531 [facility] [id number] [place] [address] Jan, [facility] [id number] [place] [address] Dec, Seborrheic keratoses L82.1 [facility] [id number] [place] [address] Dec, [facility] [id number] [place] [address] Dec, [facility] [id number] [place] [address] Dec, [facility] [id number] [place] [address] Dec, Fibromyalgia M79.7 and Hypothyroidism, unspecified type E03.9 [facility] [id number] [place] [address] Dec, Seborrheic keratoses L82.1 [facility] [address] [address] Dec, [facility] [address] [place] [address] Dec, [facility] [address] [place] [address] Nov, Sebaceous cyst L72.3 [facility] [id number] [place] [address] October, Breast cancer screening Z12.39 [facility] [id number] [place] [address] October, Fibromyalgia M79.7 ; Hypothyroidism, unspecified type E03.9 and Reflex sympathetic dystrophy G90.50 [facility] [address] [address] October, Reflex sympathetic dystrophy G90.50 ; Fibromyalgia M79.7 and Hypothyroidism, unspecified type E03.9 IMMUNIZATIONS No Known Immunizations SOCIAL HISTORY Never Assessed REASON FOR VISIT Controlled Med Refill 03/03 PLAN OF CARE VITAL SIGNS MEDICATIONS Medication Instructions Dosage Frequency Start Date End Date Duration Status Hydrocodone-Acetaminophen 7.5-325 MG Orally 3 times a day 1 tablet 8h 14 Feb, 2018 28 days Active RESULTS No Results [...]
--- OUTSIDE RECORDS SUMMARY | 2018-11-16 13:07 | XMS REPORT ---
Author Author FRANK CHAPMAN Organization [facility] Address [address] [place] [address] Care Team Providers Care Chart Computer Name Role Phone FRANK CHAPMAN Unavailable PROBLEMS Type Condition ICD9-CM Code PXV75-OT Code Onset Dates Condition Status SNOMED Code Problem Reactive depression F32.9 Active 27073924 Problem Plantar wart of right foot B07.0 Active 50964155 Problem Gastroesophageal reflux disease, esophagitis presence not specified K21.9 Active 109479259 Problem Internal derangement of right knee M23.91 Active 323370147542272 Problem Abnormal laboratory test R89.9 Active 418846368 Problem Mixed hyperlipidemia E78.2 Active 588388894 Problem Rosacea L71.9 Active 614276350 Problem Mild episode of recurrent major depressive disorder F33.0 Active 437535129 Problem Generalized anxiety disorder F41.1 Active 18246112 Problem Hypothyroidism, unspecified type E03.9 Active 49710724 Problem Right elbow pain M25.521 Active 91241051 Problem Right wrist pain M25.531 Active 62499160 Problem Reflex sympathetic dystrophy G90.50 Active 58517507 Problem Venous insufficiency I87.2 Active 37592877 Problem Fibromyalgia M79.7 Active 721426814 Problem Arthritis M19.90 Active [id number] ALLERGIES No Information ENCOUNTERS Encounter Location Date Diagnosis [facility] [id number] [address] Apr, [facility] [address] [address] Mar, [facility] [address] [address] Mar, [facility] [id number] [address] Mar, [facility] [id number] [place] [address] 24 Feb, 2018 Generalized anxiety disorder F41.1 and Mild episode of recurrent major depressive disorder F33.0 [place] [id number] [place] [address] 13 Feb, 2018 Fibromyalgia M79.7 [place] [id number] [place] [address] 10 Feb, 2018 Generalized anxiety disorder F41.1 and Mild episode of recurrent major depressive disorder F33.0 [place] [place] [id number] [place] [address] 06 Feb, 2018 [place] [id number] [place] [address] 04 Feb, 2018 Bronchospasm J98.01 and Arthritis M19.90 [place] [place] [id number] [place] [address] Jan, Medicare annual wellness visit, initial Z00.00 ; Reactive depression F32.9 ; Reflex sympathetic dystrophy G90.50 ; Fibromyalgia M79.7 ; BMI 40.0- 44.9, adult Z68.41 ; Hypothyroidism, unspecified type E03.9 ; Gastroesophageal reflux disease, esophagitis presence not specified K21.9 ; Family history of osteoporosis Z82.62 ; Venous insufficiency I87.2 ; Arthritis M19.90 ; Mixed hyperlipidemia E78.2 and Generalized anxiety disorder F41.1 [place] [id number] [place] [address] Jan, Generalized anxiety disorder F41.1 and Mild episode of recurrent major depressive disorder F33.0 [place] [id number] [place] [address] Jan, Mild episode of recurrent major depressive disorder F33.0 and Generalized anxiety disorder F41.1 [place] [id number] [place] [address] Jan, Fibromyalgia M79.7 [place] [id number] [place] [address] Jan, Bronchospasm J98.01 [facility] [address] [address] Jan, [facility] [address] [address] Jan, Generalized anxiety disorder F41.1 and Mild episode of recurrent major depressive disorder F33.0 [place] [id number] [place] [address] Jan, Bronchitis J40 [place] [address] [address] Dec, Mild episode of recurrent major depressive disorder F33.0 [place] [id number] [place] [address] Dec, Generalized anxiety disorder F41.1 and Mild episode of recurrent major depressive disorder F33.0 [place] [id number] [place] [address] Dec, Fibromyalgia M79.7 ; Arthritis M19.90 and Generalized anxiety disorder F41.1 [place] [id number] [place] [address] Dec, Mild episode of recurrent major depressive disorder F33.0 and Generalized anxiety disorder F41.1 [place] [id number] [place] [address] Dec, Fibromyalgia M79.7 [place] [id number] [place] [address] Dec, Bronchitis J40 and Internal derangement of right knee M23.91 [facility] [id number] [place] [address] Dec, Cough R05 [facility] [id number] [place] [address] Dec, Generalized anxiety disorder F41.1 and Mild episode of recurrent major depressive disorder F33.0 [facility] [address] [address] Dec, [facility] [address] [address] Dec, [facility] [address] [address] Dec, Mild episode of recurrent major depressive disorder F33.0 and Generalized anxiety disorder F41.1 [facility] [id number] [address] Nov, [facility] [id number] [place] [address] Nov, [facility] [id number] [place] [address] Nov, [facility] [id number] [place] [address] Nov, Internal derangement of right knee M23.91 [facility] [address] [place] [address] Nov, Generalized anxiety disorder F41.1 and Mild episode of recurrent major depressive disorder F33.0 [facility] [address] [address] Nov, Internal derangement of right knee M23.91 [facility] [address] [address] Nov, Acute right ankle pain M25.571 ; Acute pain of right knee M25.561 ; Acute left-sided low back pain without sciatica M54.5 and Right leg pain M79.604 [facility] [id number] [address] 15 Nov, 2017 [facility] [address] [address] 14 Nov, 2017 Fibromyalgia M79.7 [facility] [address] [address] Nov, Generalized anxiety disorder F41.1 and Mild episode of recurrent major depressive disorder F33.0 [facility] [id number] [place] [address] Nov, [facility] [id number] [place] [address] October, Generalized anxiety disorder F41.1 and Mild episode of recurrent major depressive disorder F33.0 [facility] [id number] [place] [address] October, Fibromyalgia M79.7 [facility] [id number] [place] [address] October, [facility] [id number] [place] [address] October, Generalized anxiety disorder F41.1 and Mild episode of recurrent major depressive disorder F33.0 [facility] [id number] [place] [address] October, [facility] [id number] [place] [address] Sep, Gastroesophageal reflux disease, esophagitis presence not specified K21.9 and Abnormal laboratory test R89.9 [facility] [id number] [place] [address] Sep, Fibromyalgia M79.7 [facility] [address] [place] [address] Sep, Generalized anxiety disorder F41.1 and Mild episode of recurrent major depressive disorder F33.0 [facility] [id number] [place] [address] Sep, Epigastric pain R10.13 [facility] [id number] [place] [address] Sep, Mild episode of recurrent major depressive disorder F33.0 and Generalized anxiety disorder F41.1 [facility] [id number] [place] [address] Sep, Abnormal laboratory test R89.9 [place] [address] Sep, Generalized anxiety disorder F41.1 and Mild episode of recurrent major depressive disorder F33.0 [address] [address] Aug, Epigastric pain R10.13 and Encounter for therapeutic drug level monitoring Z51.81 [facility] [address] [address] Aug, Epigastric pain R10.13 and Gastro-esophageal reflux disease without esophagitis K21.9 [address] [address] [address] Aug, [place] [address] [address] Aug, Epigastric pain R10.13 [place] [address] Aug, Fibromyalgia M79.7 [place] [address] [address] 14 Aug, 2017 [place] [address] [address] Aug, Generalized anxiety disorder F41.1 and Mild episode of recurrent major depressive disorder F33.0 [place] [address] [address] 08 Aug, 2017 Epigastric pain R10.13 ; Reflex sympathetic dystrophy G90.50 and Arthritis M19.90 [place] [id number] [place] [address] Jul, Generalized anxiety disorder F41.1 and Mild episode of recurrent major depressive disorder F33.0 [facility] [address] [address] Jul, BMI 40.0-44.9, adult Z68.41 ; Mild episode of recurrent major depressive disorder F33.0 and Generalized anxiety disorder F41.1 [facility] [address] [address] Jul, Fibromyalgia M79.7 [facility] [id number] [place] [address] Jun, Mild episode of recurrent major depressive disorder F33.0 and Generalized anxiety disorder F41.1 [facility] [id number] [place] [address] Jun, Fibromyalgia M79.7 [facility] [address] [address] Jun, Generalized anxiety disorder F41.1 and Mild episode of recurrent major depressive disorder F33.0 [facility] [address] [place] [address] Jun, Generalized anxiety disorder F41.1 and Mild episode of recurrent major depressive disorder F33.0 [facility] [address] [place] [address] Jun, Generalized anxiety disorder F41.1 and Mild episode of recurrent major depressive disorder F33.0 [facility] [address] [address] Jun, [facility] [address] [address] Jun, Generalized anxiety disorder F41.1 and Mild episode of recurrent major depressive disorder F33.0 [facility] [id number] [address] May, Fibromyalgia M79.7 [facility] [address] [address] May, Generalized anxiety disorder F41.1 and Mild episode of recurrent major depressive disorder F33.0 [facility] [id number] [place] [address] May, Mixed hyperlipidemia E78.2 ; Arthritis M19.90 ; Reactive depression F32.9 and Hypothyroidism, unspecified type E03.9 [facility] [address] [address] May, Arthritis M19.90 ; Reactive depression F32.9 ; Mixed hyperlipidemia E78.2 and Hypothyroidism, unspecified type E03.9 [facility] [address] [address] Apr, Fibromyalgia M79.7 [facility] [address] [address] Apr, [facility] [address] [address] Apr, Fibromyalgia M79.7 [facility] [address] [address] Mar, Fibromyalgia M79.7 [facility] [address] [address] Mar, [facility] [id number] [place] [address] Mar, Fibromyalgia M79.7 [facility] [address] [address] Mar, [facility] [id number] [place] [address] Feb, Reflex sympathetic dystrophy G90.50 ; Right arm pain M79.601 and Fibromyalgia M79.7 [facility] [id number] [place] [address] Feb, [facility] [address] [address] 07 Feb, 2017 Anxiety F41.9 [facility] [id number] [place] [address] 06 Feb, 2017 Fibromyalgia M79.7 [facility] [id number] [place] [address] Feb, [facility] [id number] [place] [address] Feb, [facility] [address] [address] Jan, Temporal headache R51 [facility] [address] [address] Jan, Fibromyalgia M79.7 [facility] [id number] [place] [address] Dec, Fibromyalgia M79.7 [facility] [address] [address] Nov, Peroneal tendonitis, unspecified laterality M76.70 and Plantar fasciitis, bilateral M72.2 [facility] [address] [address] Nov, Fibromyalgia M79.7 [facility] [id number] [place] [address] October, Fibromyalgia M79.7 [facility] [id number] [place] [address] October, Plantar fasciitis, bilateral M72.2 and Peroneal tendonitis, unspecified laterality M76.70 [facility] [address] [address] October, Fibromyalgia M79.7 [facility] [id number] [place] [address] Sep, Anxiety F41.9 [facility] [address] [address] Aug, Anxiety F41.9 and Adjustment disorder with anxiety F43.22 [address] [id number] [place] [address] Aug, Pain of left foot M79.672 [id number] [place] [address] Aug, Pain of left foot M79.672 and Pain in right foot M79.671 [address] [id number] [place] [address] Aug, Arthritis M19.90 ; Reactive depression F32.9 ; Fibromyalgia M79.7 ; Rosacea L71.9 ; Pain in right foot M79.671 and Pain of left foot M79.672 [id number] [place] [address] Aug, Anxiety F41.9 ; Adjustment disorder with anxiety F43.22 and Reactive depression F32.9 [place] [id number] [place] [address] Aug, Right elbow pain M25.521 [place] [address] [address] Aug, Plantar wart of right foot B07.0 and Actinic keratosis L57.0 [place] [id number] [place] [address] Aug, Fibromyalgia M79.7 [place] [id number] [place] [address] Jul, Arthritis M19.90 ; Hypothyroidism, unspecified type E03.9 ; Reactive depression F32.9 and Venous insufficiency I87.2 [place] [id number] [place] [address] Jul, Gastroesophageal reflux disease, esophagitis presence not specified K21.9 [place] [address] [address] 17 Jul, 2016 Reflex sympathetic dystrophy G90.50 [facility] [address] [address] 17 Jul, 2016 Anxiety F41.9 ; Adjustment disorder with anxiety F43.22 and Reactive depression F32.9 [address] [address] [address] 15 Jul, 2016 [facility] [address] [address] Jul, Right elbow pain M25.521 [place] [address] [address] Jun, Fibromyalgia M79.7 [place] [address] [address] Jun, Anxiety F41.9 ; Adjustment disorder with anxiety F43.22 and Reactive depression F32.9 [facility] [address] [address] Jun, [place] [address] [address] Jun, Atypical chest pain R07.89 and Adjustment disorder with anxiety F43.22 [facility] [address] [id number] Jun, Chest pain, unspecified type R07.9 [facility] [address] [address] Jun, Fibromyalgia M79.7 [facility] [address] [address] May, Anxiety F41.9 [facility] [address] [address] 14 May, 2016 [facility] [address] [address] May, Right elbow pain M25.521 [facility] [id number] [place] [address] Apr, Reflex sympathetic dystrophy G90.50 and Encounter for immunization Z23 [facility] [id number] [place] [address] Apr, [facility] [address] [address] Mar, [facility] [address] [address] Feb, [facility] [address] [address] Feb, [facility] [address] [address] Jan, [facility] [address] [address] Jan, Right elbow pain M25.521 and Right wrist pain M25.531 [facility] [address] [address] Jan, [facility] [address] [address] Dec, Seborrheic keratoses L82.1 [facility] [address] [address] Dec, [facility] [id number] [place] [address] Dec, [facility] [address] [address] Dec, [facility] [address] [address] Dec, Fibromyalgia M79.7 and Hypothyroidism, unspecified type E03.9 [facility] [address] [address] Dec, Seborrheic keratoses L82.1 [place] [id number] [address] Dec, [facility] [address] [place] [address] Dec, [place] [address] [place] [address] Nov, Sebaceous cyst L72.3 [place] [address] [place] [address] October, Breast cancer screening Z12.39 [place] [id number] [place] [address] October, Fibromyalgia M79.7 ; Hypothyroidism, unspecified type E03.9 and Reflex sympathetic dystrophy G90.50 [place] [address] [address] October, Reflex sympathetic dystrophy G90.50 ; Fibromyalgia M79.7 and Hypothyroidism, unspecified type E03.9 IMMUNIZATIONS No Known Immunizations SOCIAL HISTORY Never Assessed REASON FOR VISIT f/u PLAN OF CARE Activity Details Follow Up 2 Weeks Reason:depression & anxiety VITAL SIGNS MEDICATIONS Unknown Medications RESULTS No Results PROCEDURES Procedure Date Ordered Result Body Site [facility] VISIT MENTAL HEALTH ESTAB PT Feb 27, 2018 Psychotherapy, patient &/family, 45 minutes, established patient Feb 27, 2018 INSTRUCTIONS MEDICATIONS ADMINISTERED No Known [...]
--- OUTSIDE RECORDS SUMMARY | 2018-11-16 13:07 | XMS REPORT ---
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 Name Role Phone JOE BAI Unavailable PROBLEMS Type Condition ICD9-CM Code [id number] Code Onset Dates Condition Status SNOMED Code Problem Reactive depression F32.9 Active 77371555 Problem Plantar wart of right foot B07.0 Active 02548800 Problem Gastroesophageal reflux disease, esophagitis presence not specified K21.9 Active 515224248 Problem Internal derangement of right knee M23.91 Active 505997702720013 Problem Abnormal laboratory test R89.9 Active 585550056 Problem Mixed hyperlipidemia E78.2 Active 839953908 Problem Rosacea L71.9 Active 021072691 Problem Mild episode of recurrent major depressive disorder F33.0 Active 035089610 Problem Generalized anxiety disorder F41.1 Active 64900022 Problem Hypothyroidism, unspecified type E03.9 Active 13987524 Problem Right elbow pain M25.521 Active 07170444 Problem Right wrist pain M25.531 Active 24504935 Problem Reflex sympathetic dystrophy G90.50 Active 22844071 Problem Venous insufficiency I87.2 Active 68353894 Problem Fibromyalgia M79.7 Active 261761644 Problem Arthritis M19.90 Active 4963411 ALLERGIES No Information ENCOUNTERS Encounter Location Date Diagnosis [facility] [id number] [address] Apr, [facility] [id number] [place] [address] Mar, [facility] [id number] [place] [address] Mar, [facility] [address] [address] Mar, [facility] [address] [address] 24 Feb, 2018 Generalized anxiety disorder F41.1 and Mild episode of recurrent major depressive disorder F33.0 [facility] [id number] [place] [address] 13 Feb, 2018 Fibromyalgia M79.7 [facility] [id number] [place] [address] 10 Feb, 2018 Generalized anxiety disorder F41.1 and Mild episode of recurrent major depressive disorder F33.0 [facility] [id number] [place] [address] 06 Feb, 2018 [facility] [id number] [place] [address] 04 Feb, 2018 Bronchospasm J98.01 and Arthritis M19.90 [facility] [id number] [place] [address] Jan, Medicare annual wellness visit, initial Z00.00 ; Reactive depression F32.9 ; Reflex sympathetic dystrophy G90.50 ; Fibromyalgia M79.7 ; BMI 40.0- 44.9, adult Z68.41 ; Hypothyroidism, unspecified type E03.9 ; Gastroesophageal reflux disease, esophagitis presence not specified K21.9 ; Family history of osteoporosis Z82.62 ; Venous insufficiency I87.2 ; Arthritis M19.90 ; Mixed hyperlipidemia E78.2 and Generalized anxiety disorder F41.1 [facility] [address] [place] [address] Jan, Generalized anxiety disorder F41.1 and Mild episode of recurrent major depressive disorder F33.0 [facility] [id number] [place] [address] Jan, Mild episode of recurrent major depressive disorder F33.0 and Generalized anxiety disorder F41.1 [facility] [id number] [place] [address] Jan, Fibromyalgia M79.7 [facility] [id number] [place] [address] Jan, Bronchospasm J98.01 [facility] [id number] [place] [address] Jan, [facility] [id number] [place] [address] Jan, Generalized anxiety disorder F41.1 and Mild episode of recurrent major depressive disorder F33.0 [facility] [id number] [place] [address] Jan, Bronchitis J40 [facility] [address] [address] Dec, Mild episode of recurrent major depressive disorder F33.0 [facility] [id number] [place] [address] Dec, Generalized anxiety disorder F41.1 and Mild episode of recurrent major depressive disorder F33.0 [facility] [id number] [place] [address] Dec, Fibromyalgia M79.7 ; Arthritis M19.90 and Generalized anxiety disorder F41.1 [facility] [id number] [place] [address] Dec, Mild episode of recurrent major depressive disorder F33.0 and Generalized anxiety disorder F41.1 [facility] [id number] [place] [address] Dec, Fibromyalgia M79.7 [facility] [id number] [place] [address] Dec, Bronchitis J40 and Internal derangement of right knee M23.91 [facility] [id number] [place] [address] Dec, Cough R05 [facility] [id number] [place] [address] Dec, Generalized anxiety disorder F41.1 and Mild episode of recurrent major depressive disorder F33.0 [facility] [address] [address] Dec, [facility] [address] [address] Dec, [facility] [address] [address] Dec, Mild episode of recurrent major depressive disorder F33.0 and Generalized anxiety disorder F41.1 [facility] [address] [place] [address] 30 Nov, 2017 [facility] [id number] [place] [address] Nov, [facility] [id number] [place] [address] Nov, [facility] [id number] [place] [address] Nov, Internal derangement of right knee M23.91 [facility] [address] [place] [address] Nov, Generalized anxiety disorder F41.1 and Mild episode of recurrent major depressive disorder F33.0 [facility] [address] [address] Nov, Internal derangement of right knee M23.91 [facility] [address] [address] Nov, Acute right ankle pain M25.571 ; Acute pain of right knee M25.561 ; Acute left-sided low back pain without sciatica M54.5 and Right leg pain M79.604 [facility] [address] [address] 15 Nov, 2017 [facility] [address] [address] 14 Nov, 2017 Fibromyalgia M79.7 [facility] [address] [place] [address] Nov, Generalized anxiety disorder F41.1 and Mild episode of recurrent major depressive disorder F33.0 [facility] [id number] [place] [address] Nov, [facility] [id number] [place] [address] October, Generalized anxiety disorder F41.1 and Mild episode of recurrent major depressive disorder F33.0 [facility] [id number] [place] [address] October, Fibromyalgia M79.7 [facility] [id number] [place] [address] October, [facility] [id number] [place] [address] October, Generalized anxiety disorder F41.1 and Mild episode of recurrent major depressive disorder F33.0 [facility] [id number] [place] [address] October, [facility] [id number] [place] [address] Sep, Gastroesophageal reflux disease, esophagitis presence not specified K21.9 and Abnormal laboratory test R89.9 [facility] [id number] [place] [address] Sep, Fibromyalgia M79.7 [facility] [id number] [place] [address] Sep, Generalized anxiety disorder F41.1 and Mild episode of recurrent major depressive disorder F33.0 [facility] [id number] [place] [address] Sep, Epigastric pain R10.13 [facility] [id number] [place] [address] Sep, Mild episode of recurrent major depressive disorder F33.0 and Generalized anxiety disorder F41.1 [facility] [id number] [place] [address] Sep, Abnormal laboratory test R89.9 [facility] [address] [address] Sep, Generalized anxiety disorder F41.1 and Mild episode of recurrent major depressive disorder F33.0 [facility] [address] [address] 29 Aug, 2017 Epigastric pain R10.13 and Encounter for therapeutic drug level monitoring Z51.81 [facility] [address] [address] Aug, Epigastric pain R10.13 and Gastro-esophageal reflux disease without esophagitis K21.9 [facility] [address] [address] Aug, [facility] [address] [address] Aug, Epigastric pain R10.13 [facility] [address] [address] Aug, Fibromyalgia M79.7 [facility] [address] [address] Aug, [facility] [address] [address] Aug, Generalized anxiety disorder F41.1 and Mild episode of recurrent major depressive disorder F33.0 [facility] [address] [address] 08 Aug, 2017 Epigastric pain R10.13 ; Reflex sympathetic dystrophy G90.50 and Arthritis M19.90 [facility] [address] [address] Jul, Generalized anxiety disorder F41.1 and Mild episode of recurrent major depressive disorder F33.0 [facility] [address] [address] Jul, BMI 40.0-44.9, adult Z68.41 ; Mild episode of recurrent major depressive disorder F33.0 and Generalized anxiety disorder F41.1 [facility] [address] [address] Jul, Fibromyalgia M79.7 [facility] [id number] [place] [address] Jun, Mild episode of recurrent major depressive disorder F33.0 and Generalized anxiety disorder F41.1 [facility] [id number] [place] [address] Jun, Fibromyalgia M79.7 [facility] [address] [address] Jun, Generalized anxiety disorder F41.1 and Mild episode of recurrent major depressive disorder F33.0 [facility] [id number] [place] [address] Jun, Generalized anxiety disorder F41.1 and Mild episode of recurrent major depressive disorder F33.0 [facility] [id number] [address] Jun, Generalized anxiety disorder F41.1 and Mild episode of recurrent major depressive disorder F33.0 [facility] [address] [address] Jun, [facility] [address] [facility] [id number] [address] Jun, Generalized anxiety disorder F41.1 and Mild episode of recurrent major depressive disorder F33.0 [facility] [id number] [address] May, Fibromyalgia M79.7 [facility] [id number] [address] May, Generalized anxiety disorder F41.1 and Mild episode of recurrent major depressive disorder F33.0 [facility] [address] [address] May, Mixed hyperlipidemia E78.2 ; Arthritis M19.90 ; Reactive depression F32.9 and Hypothyroidism, unspecified type E03.9 [facility] [address] [address] May, Arthritis M19.90 ; Reactive depression F32.9 ; Mixed hyperlipidemia E78.2 and Hypothyroidism, unspecified type E03.9 [facility] [address] [address] Apr, Fibromyalgia M79.7 [facility] [address] [address] Apr, [facility] [address] [address] Apr, Fibromyalgia M79.7 [facility] [address] [address] Mar, Fibromyalgia M79.7 [facility] [address] [address] Mar, [facility] [id number] [place] [address] Mar, Fibromyalgia M79.7 [facility] [id number] [place] [address] Mar, [facility] [id number] [place] [address] Feb, Reflex sympathetic dystrophy G90.50 ; Right arm pain M79.601 and Fibromyalgia M79.7 [facility] [id number] [place] [address] Feb, [facility] [address] [address] 07 Feb, 2017 Anxiety F41.9 [facility] [id number] [place] [address] 06 Feb, 2017 Fibromyalgia M79.7 [facility] [id number] [place] [address] Feb, [facility] [id number] [place] [address] Feb, [facility] [address] [address] Jan, Temporal headache R51 [facility] [address] [address] Jan, Fibromyalgia M79.7 [facility] [address] [address] Dec, Fibromyalgia M79.7 [facility] [id number] [place] [address] Nov, Peroneal tendonitis, unspecified laterality M76.70 and Plantar fasciitis, bilateral M72.2 [facility] [address] [address] Nov, Fibromyalgia M79.7 [facility] [id number] [place] [address] October, Fibromyalgia M79.7 [facility] [id number] [place] [address] October, Plantar fasciitis, bilateral M72.2 and Peroneal tendonitis, unspecified laterality M76.70 [facility] [address] [address] October, Fibromyalgia M79.7 [facility] [id number] [place] [address] Sep, Anxiety F41.9 [facility] [address] [address] Aug, Anxiety F41.9 and Adjustment disorder with anxiety F43.22 [facility] [id number] [place] [address] Aug, Pain of left foot M79.672 [facility] [id number] [place] [address] Aug, Pain of left foot M79.672 and Pain in right foot M79.671 [facility] [id number] [place] [address] Aug, Arthritis M19.90 ; Reactive depression F32.9 ; Fibromyalgia M79.7 ; Rosacea L71.9 ; Pain in right foot M79.671 and Pain of left foot M79.672 [facility] [id number] [place] [address] Aug, Anxiety F41.9 ; Adjustment disorder with anxiety F43.22 and Reactive depression F32.9 [facility] [address] [address] Aug, Right elbow pain M25.521 [facility] [id number] [place] [address] Aug, Plantar wart of right foot B07.0 and Actinic keratosis L57.0 [facility] [id number] [place] [address] Aug, Fibromyalgia M79.7 [facility] [id number] [place] [address] Jul, Arthritis M19.90 ; Hypothyroidism, unspecified type E03.9 ; Reactive depression F32.9 and Venous insufficiency I87.2 [facility] [id number] [place] [address] Jul, Gastroesophageal reflux disease, esophagitis presence not specified K21.9 [facility] [address] [place] [address] 17 Jul, 2016 Reflex sympathetic dystrophy G90.50 [facility] [address] [address] 17 Jul, 2016 Anxiety F41.9 ; Adjustment disorder with anxiety F43.22 and Reactive depression F32.9 [facility] [address] [address] Jul, [facility] [address] [address] Jul, Right elbow pain M25.521 [facility] [address] [address] Jun, Fibromyalgia M79.7 [facility] [address] [address] Jun, Anxiety F41.9 ; Adjustment disorder with anxiety F43.22 and Reactive depression F32.9 [facility] [address] [address] Jun, [facility] [address] [address] Jun, Atypical chest pain R07.89 and Adjustment disorder with anxiety F43.22 [facility] [address] [id number] Jun, Chest pain, unspecified type R07.9 [facility] [id number] [place] [address] Jun, Fibromyalgia M79.7 [facility] [address] [address] May, Anxiety F41.9 [facility] [id number] [place] [address] May, [facility] [address] [address] May, Right elbow pain M25.521 [facility] [id number] [place] [address] Apr, Reflex sympathetic dystrophy G90.50 and Encounter for immunization Z23 [facility] [id number] [place] [address] Apr, [facility] [address] [address] Mar, [facility] [id number] [place] [address] Feb, [facility] [address] [address] Feb, [facility] [id number] [place] [address] Jan, [facility] [address] [address] Jan, Right elbow pain M25.521 and Right wrist pain M25.531 [facility] [id number] [place] [address] Jan, [facility] [id number] [place] [address] Dec, Seborrheic keratoses L82.1 [facility] [id number] [place] [address] Dec, [facility] [id number] [place] [address] Dec, [facility] [id number] [place] [address] Dec, [facility] [id number] [place] [address] Dec, Fibromyalgia M79.7 and Hypothyroidism, unspecified type E03.9 [facility] [id number] [place] [address] Dec, Seborrheic keratoses L82.1 [facility] [address] [address] Dec, [facility] [address] [place] [address] Dec, [facility] [address] [place] [address] Nov, Sebaceous cyst L72.3 [facility] [id number] [place] [address] October, Breast cancer screening Z12.39 [facility] [id number] [place] [address] October, Fibromyalgia M79.7 ; Hypothyroidism, unspecified type E03.9 and Reflex sympathetic dystrophy G90.50 [facility] [address] [address] October, Reflex sympathetic dystrophy G90.50 ; Fibromyalgia M79.7 and Hypothyroidism, unspecified type E03.9 IMMUNIZATIONS No Known Immunizations SOCIAL HISTORY Never Assessed REASON FOR VISIT FYI PLAN OF CARE VITAL SIGNS MEDICATIONS Unknown [...] resection Hospitalization History surgeries Hospitalization History Chest Pain-[facility] 07/02/16 Hospitalization History Chest Pain - [facility] 10/06/17
--- OUTSIDE RECORDS SUMMARY | 2018-11-16 13:08 | XMS REPORT ---
Author Author FRNAK CHAPMAN Organization [facility] Address [address] [place] [address] Care Team Providers Care Unit Secy Name Role Phone FRANK CHAPMAN Unavailable PROBLEMS Type Condition ICD9-CM Code XRI22-ZW Code Onset Dates Condition Status SNOMED Code Problem Reactive depression F32.9 Active 26122456 Problem Plantar wart of right foot B07.0 Active 13769899 Problem Gastroesophageal reflux disease, esophagitis presence not specified K21.9 Active 208853116 Problem Internal derangement of right knee M23.91 Active 345277260335293 Problem Abnormal laboratory test R89.9 Active 951317491 Problem Mixed hyperlipidemia E78.2 Active 289519695 Problem Rosacea L71.9 Active 187684617 Problem Mild episode of recurrent major depressive disorder F33.0 Active 852124306 Problem Generalized anxiety disorder F41.1 Active 34195608 Problem Hypothyroidism, unspecified type E03.9 Active 21375670 Problem Right elbow pain M25.521 Active 02959799 Problem Right wrist pain M25.531 Active 91465793 Problem Reflex sympathetic dystrophy G90.50 Active 97760685 Problem Venous insufficiency I87.2 Active 05805594 Problem Fibromyalgia M79.7 Active 453355852 Problem Arthritis M19.90 Active 7858824 ALLERGIES No Information ENCOUNTERS Encounter Location Date Diagnosis [facility] [id number] [address] Apr, [facility] [address] [address] Mar, [facility] [address] [address] Mar, [facility] [id number] [address] Mar, [facility] [id number] [place] [address] 24 Feb, 2018 Generalized anxiety disorder F41.1 and Mild episode of recurrent major depressive disorder F33.0 [facility] [id number] [place] [address] 13 Feb, 2018 Fibromyalgia M79.7 [facility] [id number] [place] [address] 10 Feb, 2018 Generalized anxiety disorder F41.1 and Mild episode of recurrent major depressive disorder F33.0 [facility] [id number] [place] [address] 06 Feb, 2018 [facility] [id number] [place] [address] 04 Feb, 2018 Bronchospasm J98.01 and Arthritis M19.90 [facility] [id number] [place] [address] Jan, Medicare annual wellness visit, initial Z00.00 ; Reactive depression F32.9 ; Reflex sympathetic dystrophy G90.50 ; Fibromyalgia M79.7 ; BMI 40.0- 44.9, adult Z68.41 ; Hypothyroidism, unspecified type E03.9 ; Gastroesophageal reflux disease, esophagitis presence not specified K21.9 ; Family history of osteoporosis Z82.62 ; Venous insufficiency I87.2 ; Arthritis M19.90 ; Mixed hyperlipidemia E78.2 and Generalized anxiety disorder F41.1 [facility] [id number] [place] [address] Jan, Generalized anxiety disorder F41.1 and Mild episode of recurrent major depressive disorder F33.0 [facility] [id number] [place] [address] Jan, Mild episode of recurrent major depressive disorder F33.0 and Generalized anxiety disorder F41.1 [facility] [id number] [place] [address] Jan, Fibromyalgia M79.7 [facility] [id number] [place] [address] Jan, Bronchospasm J98.01 [facility] [address] [address] Jan, [facility] [address] [address] Jan, Generalized anxiety disorder F41.1 and Mild episode of recurrent major depressive disorder F33.0 [facility] [id number] [place] [address] Jan, Bronchitis J40 [facility] [address] [address] Dec, Mild episode of recurrent major depressive disorder F33.0 [facility] [id number] [place] [address] Dec, Generalized anxiety disorder F41.1 and Mild episode of recurrent major depressive disorder F33.0 [facility] [id number] [place] [address] Dec, Fibromyalgia M79.7 ; Arthritis M19.90 and Generalized anxiety disorder F41.1 [facility] [id number] [place] [address] Dec, Mild episode of recurrent major depressive disorder F33.0 and Generalized anxiety disorder F41.1 [facility] [id number] [place] [address] Dec, Fibromyalgia M79.7 [facility] [id number] [place] [address] Dec, Bronchitis J40 and Internal derangement of right knee M23.91 [facility] [id number] [place] [address] Dec, Cough R05 [facility] [id number] [place] [address] Dec, Generalized anxiety disorder F41.1 and Mild episode of recurrent major depressive disorder F33.0 [facility] [address] [address] Dec, [facility] [address], [place] [address] Dec, [facility] [address], [place] [address] Dec, Mild episode of recurrent major depressive disorder F33.0 and Generalized anxiety disorder F41.1 [facility] [id number], [place] [address] Nov, [facility] [id number] [place] [address] Nov, [facility] [id number] [place] [address] Nov, [facility] [id number] [place] [address] Nov, Internal derangement of right knee M23.91 [facility] [id number] [place] [address] Nov, Generalized anxiety disorder F41.1 and Mild episode of recurrent major depressive disorder F33.0 [facility] [address] [address] Nov, Internal derangement of right knee M23.91 [facility] [address] [address] Nov, Acute right ankle pain M25.571 ; Acute pain of right knee M25.561 ; Acute left-sided low back pain without sciatica M54.5 and Right leg pain M79.604 [facility] [id number] [address] 15 Nov, 2017 [facility] [address] [address] 14 Nov, 2017 Fibromyalgia M79.7 [facility] [address], [place] [address] Nov, Generalized anxiety disorder F41.1 and Mild episode of recurrent major depressive disorder F33.0 [facility] [id number] [place] [address] Nov, [facility] [id number] [place] [address] October, Generalized anxiety disorder F41.1 and Mild episode of recurrent major depressive disorder F33.0 [facility] [id number] [place] [address] October, Fibromyalgia M79.7 [facility] [id number] [place] [address] October, [facility] [id number] [place] [address] October, Generalized anxiety disorder F41.1 and Mild episode of recurrent major depressive disorder F33.0 [facility] [id number] [place] [address] October, [facility] [id number] [place] [address] Sep, Gastroesophageal reflux disease, esophagitis presence not specified K21.9 and Abnormal laboratory test R89.9 [facility] [id number] [place] [address] Sep, Fibromyalgia M79.7 [facility] [id number] [place] [address] Sep, Generalized anxiety disorder F41.1 and Mild episode of recurrent major depressive disorder F33.0 [facility] [id number] [place] [address] Sep, Epigastric pain R10.13 [facility] [id number] [place] [address] Sep, Mild episode of recurrent major depressive disorder F33.0 and Generalized anxiety disorder F41.1 [facility] [id number] [place] [address] Sep, Abnormal laboratory test R89.9 [address] [address] [address] Sep, Generalized anxiety disorder F41.1 and Mild episode of recurrent major depressive disorder F33.0 [facility] [facility] [address] [address] Aug, Epigastric pain R10.13 and Encounter for therapeutic drug level monitoring Z51.81 [facility] [address] [address] Aug, Epigastric pain R10.13 and Gastro-esophageal reflux disease without esophagitis K21.9 [address] [address] [address] Aug, [facility] [address] [address] Aug, Epigastric pain R10.13 [facility] [address] [address] Aug, Fibromyalgia M79.7 [facility] [address] [address] 14 Aug, 2017 [address] [facility] [address] [address] Aug, Generalized anxiety disorder F41.1 and Mild episode of recurrent major depressive disorder F33.0 [facility] [facility] [address] [address] 08 Aug, 2017 Epigastric pain R10.13 ; Reflex sympathetic dystrophy G90.50 and Arthritis M19.90 [facility] [id number] [place] [address] Jul, Generalized anxiety disorder F41.1 and Mild episode of recurrent major depressive disorder F33.0 [facility] [address], [place] [address] Jul, BMI 40.0-44.9, adult Z68.41 ; Mild episode of recurrent major depressive disorder F33.0 and Generalized anxiety disorder F41.1 [facility] [address], [place] [address] Jul, Fibromyalgia M79.7 [facility] [id number] [place] [address] Jun, Mild episode of recurrent major depressive disorder F33.0 and Generalized anxiety disorder F41.1 [facility] [id number] [place] [address] Jun, Fibromyalgia M79.7 [facility] [address], [place] [address] Jun, Generalized anxiety disorder F41.1 and Mild episode of recurrent major depressive disorder F33.0 [facility] [id number] [place] [address] Jun, Generalized anxiety disorder F41.1 and Mild episode of recurrent major depressive disorder F33.0 [facility] [id number] [place] [address] Jun, Generalized anxiety disorder F41.1 and Mild episode of recurrent major depressive disorder F33.0 [facility] [address], [place] [address] Jun, [facility] [address], [place] [address] Jun, Generalized anxiety disorder F41.1 and Mild episode of recurrent major depressive disorder F33.0 [facility] [id number], [place] [address] May, Fibromyalgia M79.7 [facility] [address], [place] [address] May, Generalized anxiety disorder F41.1 and Mild episode of recurrent major depressive disorder F33.0 [facility] [id number] [place] [address] May, Mixed hyperlipidemia E78.2 ; Arthritis M19.90 ; Reactive depression F32.9 and Hypothyroidism, unspecified type E03.9 [facility] [address] [address] May, Arthritis M19.90 ; Reactive depression F32.9 ; Mixed hyperlipidemia E78.2 and Hypothyroidism, unspecified type E03.9 [facility] [address] [address] Apr, Fibromyalgia M79.7 [facility] [address] [address] Apr, [facility] [address] [address] Apr, Fibromyalgia M79.7 [facility] [address] [address] Mar, Fibromyalgia M79.7 [facility] [address] [address] Mar, [facility] [id number] [place] [address] Mar, Fibromyalgia M79.7 [facility] [address] [address] Mar, [facility] [id number] [place] [address] Feb, Reflex sympathetic dystrophy G90.50 ; Right arm pain M79.601 and Fibromyalgia M79.7 [facility] [id number] [place] [address] Feb, [facility] [address] [address] 07 Feb, 2017 Anxiety F41.9 [facility] [id number] [place] [address] 06 Feb, 2017 Fibromyalgia M79.7 [facility] [id number] [place] [address] Feb, [facility] [id number] [place] [address] Feb, [facility] [address] [address] Jan, Temporal headache R51 [facility] [address] [address] Jan, Fibromyalgia M79.7 [facility] [id number] [place] [address] Dec, Fibromyalgia M79.7 [facility] [address] [address] Nov, Peroneal tendonitis, unspecified laterality M76.70 and Plantar fasciitis, bilateral M72.2 [facility] [address] [address] Nov, Fibromyalgia M79.7 [facility] [id number] [place] [address] October, Fibromyalgia M79.7 [facility] [id number] [place] [address] October, Plantar fasciitis, bilateral M72.2 and Peroneal tendonitis, unspecified laterality M76.70 [facility] [address] [address] October, Fibromyalgia M79.7 [facility] [id number] [place] [address] Sep, Anxiety F41.9 [facility] [address] [address] Aug, Anxiety F41.9 and Adjustment disorder with anxiety F43.22 [facility] [id number] [place] [address] Aug, Pain of left foot M79.672 [facility] [id number] [place] [address] Aug, Pain of left foot M79.672 and Pain in right foot M79.671 [facility] [id number] [place] [address] Aug, Arthritis M19.90 ; Reactive depression F32.9 ; Fibromyalgia M79.7 ; Rosacea L71.9 ; Pain in right foot M79.671 and Pain of left foot M79.672 [facility] [id number] [place] [address] Aug, Anxiety F41.9 ; Adjustment disorder with anxiety F43.22 and Reactive depression F32.9 [facility] [id number] [place] [address] Aug, Right elbow pain M25.521 [facility] [address] [address] Aug, Plantar wart of right foot B07.0 and Actinic keratosis L57.0 [facility] [id number] [place] [address] Aug, Fibromyalgia M79.7 [facility] [id number] [place] [address] Jul, Arthritis M19.90 ; Hypothyroidism, unspecified type E03.9 ; Reactive depression F32.9 and Venous insufficiency I87.2 [facility] [id number] [place] [address] Jul, Gastroesophageal reflux disease, esophagitis presence not specified K21.9 [facility] [address] [address] 17 Jul, 2016 Reflex sympathetic dystrophy G90.50 [facility] [address] [address] 17 Jul, 2016 Anxiety F41.9 ; Adjustment disorder with anxiety F43.22 and Reactive depression F32.9 [facility] [address] [address] 15 Jul, 2016 [facility] [address] [address] Jul, Right elbow pain M25.521 [facility] [address] [address] Jun, Fibromyalgia M79.7 [facility] [address] [address] Jun, Anxiety F41.9 ; Adjustment disorder with anxiety F43.22 and Reactive depression F32.9 [facility] [address] [address] Jun, [facility] [address] [address] Jun, Atypical chest pain R07.89 and Adjustment disorder with anxiety F43.22 [facility] [address] [id number] Jun, Chest pain, unspecified type R07.9 [facility] [address] [address] Jun, Fibromyalgia M79.7 [facility] [address] [address] May, Anxiety F41.9 [facility] [address] [address] 14 May, 2016 [facility] [address] [address] May, Right elbow pain M25.521 [facility] [id number] [place] [address] Apr, Reflex sympathetic dystrophy G90.50 and Encounter for immunization Z23 [facility] [id number] [place] [address] Apr, [facility] [address] [address] Mar, [facility] [address] [address] Feb, [facility] [address] [address] Feb, [facility] [address] [address] Jan, [facility] [address] [address] Jan, Right elbow pain M25.521 and Right wrist pain M25.531 [facility] [address] [address] Jan, [facility] [address] [address] Dec, Seborrheic keratoses L82.1 [facility] [address] [address] Dec, [facility] [id number] [place] [address] Dec, [facility] [address] [address] Dec, [facility] [address] [address] Dec, Fibromyalgia M79.7 and Hypothyroidism, unspecified type E03.9 [facility] [address] [address] Dec, Seborrheic keratoses L82.1 [facility] [address] [address] Dec, [facility] [id number] [place] [address] Dec, [facility] [id number] [place] [address] Nov, Sebaceous cyst L72.3 [facility] [id number] [place] [address] October, Breast cancer screening Z12.39 [facility] [id number] [place] [address] October, Fibromyalgia M79.7 ; Hypothyroidism, unspecified type E03.9 and Reflex sympathetic dystrophy G90.50 [facility] [address] [address] October, Reflex sympathetic dystrophy G90.50 ; Fibromyalgia M79.7 and Hypothyroidism, unspecified type E03.9 IMMUNIZATIONS No Known Immunizations SOCIAL HISTORY Never Assessed REASON FOR VISIT f/u PLAN OF CARE Activity Details Follow Up 2 Weeks Reason:anxiety & depression VITAL SIGNS MEDICATIONS Unknown Medications RESULTS No Results PROCEDURES Procedure Date Ordered Result Body Site [facility] VISIT MENTAL HEALTH ESTAB PT Feb 13, 2018 Psychotherapy, patient &/family, 45 minutes, established patient Feb 13, 2018 visit needs to be added to the same day medical Feb 13, 2018 INSTRUCTIONS MEDICATIONS ADMINISTERED No Known [...]
--- OUTSIDE RECORDS SUMMARY | 2018-11-16 13:08 | XMS REPORT ---
Author Author BAMBI POLLY Organization [facility] Address [address] [place] [address] Care Team Providers Care Senior Asp Net Developer Name Role Phone MANAVKAYA VARMAA Unavailable PROBLEMS Type Condition ICD9-CM Code QKF14-RI Code Onset Dates Condition Status SNOMED Code Problem Reactive depression F32.9 Active 25365955 Problem Plantar wart of right foot B07.0 Active 19216353 Problem Gastroesophageal reflux disease, esophagitis presence not specified K21.9 Active 382355865 Problem Internal derangement of right knee M23.91 Active 923359735765431 Problem Abnormal laboratory test R89.9 Active 255778429 Problem Mixed hyperlipidemia E78.2 Active 098654336 Problem Rosacea L71.9 Active 267980274 Problem Mild episode of recurrent major depressive disorder F33.0 Active 031266751 Problem Generalized anxiety disorder F41.1 Active 46507731 Problem Hypothyroidism, unspecified type E03.9 Active 84687031 Problem Right elbow pain M25.521 Active 13218394 Problem Right wrist pain M25.531 Active 05402567 Problem Reflex sympathetic dystrophy G90.50 Active 28582258 Problem Venous insufficiency I87.2 Active 22960604 Problem Fibromyalgia M79.7 Active 189694332 Problem Arthritis M19.90 Active 1353627 ALLERGIES No Information ENCOUNTERS Encounter Location Date Diagnosis [facility] [address] [facility] [id number] [address] Mar, [facility] [address] [place] [id number] [address] Mar, [facility] [id number] [address] Mar, [facility] [id number] [address] Feb, [place] [address] [place] [address] Feb, Fibromyalgia M79.7 [place] [address] [address] Feb, Generalized anxiety disorder F41.1 and Mild episode of recurrent major depressive disorder F33.0 [place] [address] [address] 06 Feb, 2018 [place] [address] [place] [address] Feb, Bronchospasm J98.01 and Arthritis M19.90 [place] [address] [address] Jan, Medicare annual wellness visit, initial Z00.00 ; Reactive depression F32.9 ; Reflex sympathetic dystrophy G90.50 ; Fibromyalgia M79.7 ; BMI 40.0- 44.9, adult Z68.41 ; Hypothyroidism, unspecified type E03.9 ; Gastroesophageal reflux disease, esophagitis presence not specified K21.9 ; Family history of osteoporosis Z82.62 ; Venous insufficiency I87.2 ; Arthritis M19.90 ; Mixed hyperlipidemia E78.2 and Generalized anxiety disorder F41.1 [place] [address] [place] [address] Jan, Generalized anxiety disorder F41.1 and Mild episode of recurrent major depressive disorder F33.0 [place] [address] [place] [address] Jan, Mild episode of recurrent major depressive disorder F33.0 and Generalized anxiety disorder F41.1 [place] [address] [place] [address] Jan, Fibromyalgia M79.7 [place] [address] [place] [address] Jan, Bronchospasm J98.01 [place] [address] [place] [address] Jan, [facility] [address] [place] [address] Jan, Generalized anxiety disorder F41.1 and Mild episode of recurrent major depressive disorder F33.0 [facility] [address] [address] Jan, Bronchitis J40 [facility] [address] [place] [address] Dec, Mild episode of recurrent major depressive disorder F33.0 [facility] [address] [place] [address] Dec, Generalized anxiety disorder F41.1 and Mild episode of recurrent major depressive disorder F33.0 [facility] [address] [place] [address] Dec, Fibromyalgia M79.7 ; Arthritis M19.90 and Generalized anxiety disorder F41.1 [facility] [address] [place] [address] Dec, Mild episode of recurrent major depressive disorder F33.0 and Generalized anxiety disorder F41.1 [facility] [address] [place] [address] Dec, Fibromyalgia M79.7 [facility] [address] [place] [address] Dec, Bronchitis J40 and Internal derangement of right knee M23.91 [facility] [address] [address] Dec, Cough R05 [facility] [address] [place] [address] Dec, Generalized anxiety disorder F41.1 and Mild episode of recurrent major depressive disorder F33.0 [facility] [address] [address] Dec, [facility] [address] [address] 08 Dec, 2017 [facility] [address] [place] [address] Dec, Mild episode of recurrent major depressive disorder F33.0 and Generalized anxiety disorder F41.1 [facility] [address] [address] 30 Nov, 2017 [facility] [address] [place] [address] Nov, [facility] [address] [place] [address] Nov, [facility] [address] [place] [address] Nov, Internal derangement of right knee M23.91 [facility] [address] [place] [address] Nov, Generalized anxiety disorder F41.1 and Mild episode of recurrent major depressive disorder F33.0 [facility] [address] [place] [address] Nov, Internal derangement of right knee M23.91 [facility] [address] [address] 19 Nov, 2017 Acute right ankle pain M25.571 ; Acute pain of right knee M25.561 ; Acute left-sided low back pain without sciatica M54.5 and Right leg pain M79.604 [facility] [address] [address] 15 Nov, 2017 [place] [address] [place] [address] 14 Nov, 2017 Fibromyalgia M79.7 [facility] [address] [address] 13 Nov, 2017 Generalized anxiety disorder F41.1 and Mild episode of recurrent major depressive disorder F33.0 [facility] [address] [place] [address] Nov, [facility] [address] [place] [address] October, Generalized anxiety disorder F41.1 and Mild episode of recurrent major depressive disorder F33.0 [place] [address] [place] [address] October, Fibromyalgia M79.7 [facility] [address] [place] [address] October, [place] [address] [place] [address] October, Generalized anxiety disorder F41.1 and Mild episode of recurrent major depressive disorder F33.0 [place] [address] [place] [address] October, [facility] [address] [place] [address] Sep, Gastroesophageal reflux disease, esophagitis presence not specified K21.9 and Abnormal laboratory test R89.9 [place] [address] [place] [address] Sep, Fibromyalgia M79.7 [facility] [address] [place] [address] Sep, Generalized anxiety disorder F41.1 and Mild episode of recurrent major depressive disorder F33.0 [place] [address] [place] [address] Sep, Epigastric pain R10.13 [place] [address] [place] [address] Sep, Mild episode of recurrent major depressive disorder F33.0 and Generalized anxiety disorder F41.1 [place] [address] [place] [address] Sep, Abnormal laboratory test R89.9 [facility] [address] [place] [address] Sep, Generalized anxiety disorder F41.1 and Mild episode of recurrent major depressive disorder F33.0 [facility] [address] [place] [address] 29 Aug, 2017 Epigastric pain R10.13 and Encounter for therapeutic drug level monitoring Z51.81 [facility] [address] [address] Aug, Epigastric pain R10.13 and Gastro-esophageal reflux disease without esophagitis K21.9 [place] [address] [address] Aug, [facility] [address] [address] Aug, Epigastric pain R10.13 [place] [address] [address] Aug, Fibromyalgia M79.7 [place] [address] [address] 14 Aug, 2017 [place] [address] [address] Aug, Generalized anxiety disorder F41.1 and Mild episode of recurrent major depressive disorder F33.0 [place] [address] [place] [address] 08 Aug, 2017 Epigastric pain R10.13 ; Reflex sympathetic dystrophy G90.50 and Arthritis M19.90 [place] [address] [address] Jul, Generalized anxiety disorder F41.1 and Mild episode of recurrent major depressive disorder F33.0 [facility] [address] [place] [address] Jul, BMI 40.0-44.9, adult Z68.41 ; Mild episode of recurrent major depressive disorder F33.0 and Generalized anxiety disorder F41.1 [facility] [address] [place] [address] Jul, Fibromyalgia M79.7 [facility] [address] [place] [address] Jun, Mild episode of recurrent major depressive disorder F33.0 and Generalized anxiety disorder F41.1 [facility] [address] [place] [address] Jun, Fibromyalgia M79.7 [facility] [address] [place] [address] Jun, Generalized anxiety disorder F41.1 and Mild episode of recurrent major depressive disorder F33.0 [facility] [address] [place] [address] Jun, Generalized anxiety disorder F41.1 and Mild episode of recurrent major depressive disorder F33.0 [facility] [address] [place] [address] Jun, Generalized anxiety disorder F41.1 and Mild episode of recurrent major depressive disorder F33.0 [facility] [address] [place] [address] Jun, [facility] [address] [place] [address] Jun, Generalized anxiety disorder F41.1 and Mild episode of recurrent major depressive disorder F33.0 [facility] [address] [place] [address] May, Fibromyalgia M79.7 [facility] [id number] [place] [address] May, Generalized anxiety disorder F41.1 and Mild episode of recurrent major depressive disorder F33.0 [facility] [address] [place] [address] May, Mixed hyperlipidemia E78.2 ; Arthritis M19.90 ; Reactive depression F32.9 and Hypothyroidism, unspecified type E03.9 [facility] [address] [address] May, Arthritis M19.90 ; Reactive depression F32.9 ; Mixed hyperlipidemia E78.2 and Hypothyroidism, unspecified type E03.9 [facility] [address] [address] Apr, Fibromyalgia M79.7 [facility] [address] [address] Apr, [facility] [address] [address] Apr, Fibromyalgia M79.7 [facility] [address] [address] Mar, Fibromyalgia M79.7 [facility] [address] [address] Mar, [facility] [address] [address] Mar, Fibromyalgia M79.7 [facility] [address] [address] Mar, [facility] [address] [address] Feb, Reflex sympathetic dystrophy G90.50 ; Right arm pain M79.601 and Fibromyalgia M79.7 [facility] [address] [place] [address] Feb, [facility] [address] [address] Feb, Anxiety F41.9 [facility] [address] [place] [address] 06 Feb, 2017 Fibromyalgia M79.7 [facility] [address] [place] [address] Feb, [facility] [address] [address] Feb, [facility] [address] [place] [address] Jan, Temporal headache R51 [facility] [address] [address] Jan, Fibromyalgia M79.7 [facility] [address] [place] [address] Dec, Fibromyalgia M79.7 [facility] [address] [place] [address] Nov, Peroneal tendonitis, unspecified laterality M76.70 and Plantar fasciitis, bilateral M72.2 [place] [address] [place] [address] Nov, Fibromyalgia M79.7 [facility] [address] [place] [address] October, Fibromyalgia M79.7 [facility] [address] [place] [address] October, Plantar fasciitis, bilateral M72.2 and Peroneal tendonitis, unspecified laterality M76.70 [facility] [address] [place] [address] October, Fibromyalgia M79.7 [facility] [address] [place] [address] Sep, Anxiety F41.9 [place] [address] [address] Aug, Anxiety F41.9 and Adjustment disorder with anxiety F43.22 [place] [address] [address] Aug, Pain of left foot M79.672 [place] [address] [address] Aug, Pain of left foot M79.672 and Pain in right foot M79.671 [place] [address] [address] Aug, Arthritis M19.90 ; Reactive depression F32.9 ; Fibromyalgia M79.7 ; Rosacea L71.9 ; Pain in right foot M79.671 and Pain of left foot M79.672 [place] [address] [address] Aug, Anxiety F41.9 ; Adjustment disorder with anxiety F43.22 and Reactive depression F32.9 [place] [address] [address] Aug, Right elbow pain M25.521 [place] [address] [address] Aug, Plantar wart of right foot B07.0 and Actinic keratosis L57.0 [place] [address] [address] Aug, Fibromyalgia M79.7 [place] [address] [address] Jul, Arthritis M19.90 ; Hypothyroidism, unspecified type E03.9 ; Reactive depression F32.9 and Venous insufficiency I87.2 [place] [address] [address] Jul, Gastroesophageal reflux disease, esophagitis presence not specified K21.9 [place] [address] [address] Jul, Reflex sympathetic dystrophy G90.50 [place] [address] [address] 17 Jul, 2016 Anxiety F41.9 ; Adjustment disorder with anxiety F43.22 and Reactive depression F32.9 [facility] [address] [address] 15 Jul, 2016 [facility] [address] [address] Jul, Right elbow pain M25.521 [facility] [address] [address] Jun, Fibromyalgia M79.7 [place] [address] [address] Jun, Anxiety F41.9 ; Adjustment disorder with anxiety F43.22 and Reactive depression F32.9 [place] [address] [address] Jun, [facility] [address] [address] Jun, Atypical chest pain R07.89 and Adjustment disorder with anxiety F43.22 [place] [address] [id number] Jun, Chest pain, unspecified type R07.9 [place] [address] [address] Jun, Fibromyalgia M79.7 [facility] [address] [address] May, Anxiety F41.9 [facility] [address] [address] May, [place] [address] [address] May, Right elbow pain M25.521 [facility] [address] [address] Apr, Reflex sympathetic dystrophy G90.50 and Encounter for immunization Z23 [facility] [address] [place] [address] Apr, [facility] [address] [place] [address] Mar, [facility] [address] [place] [address] Feb, [facility] [address] [address] Feb, [facility] [address] [place] [address] Jan, [facility] [address] [place] [address] Jan, Right elbow pain M25.521 and Right wrist pain M25.531 [facility] [address] [place] [address] Jan, [facility] [address] [place] [address] Dec, Seborrheic keratoses L82.1 [facility] [address] [place] [address] Dec, [facility] [address] [place] [address] Dec, [facility] [address] [place] [address] Dec, [facility] [address] [place] [address] Dec, Fibromyalgia M79.7 and Hypothyroidism, unspecified type E03.9 [facility] [address] [place] [address] Dec, Seborrheic keratoses L82.1 [facility] [address] [place] [address] Dec, [facility] [address] [facility] [id number] [address] Dec, [place] [address] [address] Nov, Sebaceous cyst L72.3 [place] [address] [address] October, Breast cancer screening Z12.39 [place] [address] [address] October, Fibromyalgia M79.7 ; Hypothyroidism, unspecified type E03.9 and Reflex sympathetic dystrophy G90.50 [place] [address] [address] October, Reflex sympathetic dystrophy G90.50 ; Fibromyalgia M79.7 and Hypothyroidism, unspecified type E03.9 IMMUNIZATIONS No Known Immunizations SOCIAL HISTORY Never Assessed REASON FOR VISIT f/u PLAN OF CARE Activity Details Follow Up 4 Weeks Reason: VITAL SIGNS Height 62 in 2018-02-07 Weight 216 lbs 2018-02-07 Heart Rate 88 bpm 2018-02-07 Respiratory Rate 20 2018-02-07 BMI 39.50 kg/m2 2018-02-07 Blood pressure systolic 132 mmHg 2018-02-07 Blood pressure diastolic 78 mmHg 2018-02-07 MEDICATIONS Medication Instructions Dosage Frequency Start Date End Date Duration Status Tizanidine HCl 4 MG Orally Three times a day 1 tablet as needed 8h Active Hydrocodone-Acetaminophen 7.5-325 MG Orally 3 times a day 1 tablet 8h Jan, 28 days Active Celebrex 200 mg Orally Once a day 1 capsule with food 24h 30 Active Cetirizine HCl 10 MG Orally Once a day 1 tablet 24h Active HydrOXYzine HCl 10MG Orally three times a day as needed for anxiety and sleep 1 tablet Active Excedrin Migraine 250-250-65 MG Orally every 6 hrs 2 tablets as needed 6h Active Pantoprazole Sodium 40MG Orally Once a day 1 tablet 24h Active ProAir HFA 108 (90 Base) MCG/ACT Inhalation every 6 hrs 2 puffs as needed 6h Jan, Active PredniSONE 20 mg Orally Once a day 2 tab 4 days, then 1 tab 6ayys 24h Jan, Feb, 10 days Active Symbicort 160-4.5 MCG/ACT Inhalation Twice a day 2 puffs 12h Jan, Active Amitriptyline HCl 10 mg Orally QHS 1 tablet Active Guaifenesin 400 mg Orally every 4 hrs 1 tablet as needed 4h Jan, Active Topiramate 200MG Orally twice a day 1 tablet 12h Active Rexulti 2 MG Orally Once a day 1 tablet 24h Nov, Active Orphenadrine Citrate ER 100 mg Orally twice a day 1 tablet 12h Active Levothyroxine Sodium 75MCG TAKE ONE TABLET BY MOUTH ONCE DAILY Active RESULTS No Results PROCEDURES Procedure Date Ordered Result Body Site [facility] VISIT ESTABLISHED PATIENT Feb 07, 2018 INSTRUCTIONS MEDICATIONS ADMINISTERED No Known Medications [...]
--- OUTSIDE RECORDS SUMMARY | 2018-11-16 13:09 | XMS REPORT ---
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 Name Role Phone JOE BAI Unavailable PROBLEMS Type Condition ICD9-CM Code UBU86-PS Code Onset Dates Condition Status SNOMED Code Problem Reactive depression F32.9 Active 36049517 Problem Plantar wart of right foot B07.0 Active 02880156 Problem Gastroesophageal reflux disease, esophagitis presence not specified K21.9 Active 109917822 Problem Internal derangement of right knee M23.91 Active 072981480786124 Problem Abnormal laboratory test R89.9 Active 587820946 Problem Mixed hyperlipidemia E78.2 Active 224542688 Problem Rosacea L71.9 Active 322215182 Problem Mild episode of recurrent major depressive disorder F33.0 Active 310537107 Problem Generalized anxiety disorder F41.1 Active 53478871 Problem Hypothyroidism, unspecified type E03.9 Active 77912235 Problem Right elbow pain M25.521 Active 22250329 Problem Right wrist pain M25.531 Active 93891981 Problem Reflex sympathetic dystrophy G90.50 Active 07523293 Problem Venous insufficiency I87.2 Active 91114784 Problem Fibromyalgia M79.7 Active 007976936 Problem Arthritis M19.90 Active 7355102 ALLERGIES No Information ENCOUNTERS Encounter Location Date Diagnosis [facility] [id number] [address] Mar, [facility] [id number] [place] [address] Mar, [facility] [id number] [place] [address] 24 Feb, 2018 [facility] [address] [address] Feb, Fibromyalgia M79.7 [place] [address] [address] 10 Feb, 2018 Generalized anxiety disorder F41.1 and Mild episode of recurrent major depressive disorder F33.0 [facility] [id number] [place] [address] Feb, [facility] [id number] [place] [address] 04 Feb, 2018 Bronchospasm J98.01 and Arthritis M19.90 [facility] [id number] [place] [address] Jan, Medicare annual wellness visit, initial Z00.00 ; Reactive depression F32.9 ; Reflex sympathetic dystrophy G90.50 ; Fibromyalgia M79.7 ; BMI 40.0- 44.9, adult Z68.41 ; Hypothyroidism, unspecified type E03.9 ; Gastroesophageal reflux disease, esophagitis presence not specified K21.9 ; Family history of osteoporosis Z82.62 ; Venous insufficiency I87.2 ; Arthritis M19.90 ; Mixed hyperlipidemia E78.2 and Generalized anxiety disorder F41.1 [place] [id number] [place] [address] Jan, Generalized anxiety disorder F41.1 and Mild episode of recurrent major depressive disorder F33.0 [place] [id number] [place] [address] Jan, Mild episode of recurrent major depressive disorder F33.0 and Generalized anxiety disorder F41.1 [place] [address] [address] Jan, Fibromyalgia M79.7 [place] [id number] [place] [address] 13 Jan, 2018 Bronchospasm J98.01 [place] [address] [address] Jan, [place] [id number] [place] [address] Jan, Generalized anxiety disorder F41.1 and Mild episode of recurrent major depressive disorder F33.0 [facility] [id number] [place] [address] Jan, Bronchitis J40 [facility] [id number] [place] [address] Dec, Mild episode of recurrent major depressive disorder F33.0 [facility] [id number] [place] [address] Dec, Generalized anxiety disorder F41.1 and Mild episode of recurrent major depressive disorder F33.0 [facility] [id number] [place] [address] Dec, Fibromyalgia M79.7 ; Arthritis M19.90 and Generalized anxiety disorder F41.1 [place] [id number] [place] [address] Dec, Mild episode of recurrent major depressive disorder F33.0 and Generalized anxiety disorder F41.1 [facility] [id number] [place] [address] Dec, Fibromyalgia M79.7 [facility] [id number] [place] [address] Dec, Bronchitis J40 and Internal derangement of right knee M23.91 [facility] [id number] [place] [address] Dec, Cough R05 [facility] [id number] [place] [address] Dec, Generalized anxiety disorder F41.1 and Mild episode of recurrent major depressive disorder F33.0 [facility] [id number] [place] [address] Dec, [facility] [id number] [place] [address] Dec, [facility] [address] [address] 02 Dec, 2017 Mild episode of recurrent major depressive disorder F33.0 and Generalized anxiety disorder F41.1 [facility] [address] [address] 30 Nov, 2017 [facility] [address] [address] Nov, [facility] [id number] [place] [address] Nov, [facility] [address] [place] [address] Nov, Internal derangement of right knee M23.91 [facility] [address] [address] Nov, Generalized anxiety disorder F41.1 and Mild episode of recurrent major depressive disorder F33.0 [facility] [address] [address] Nov, Internal derangement of right knee M23.91 [facility] [address] [address] Nov, Acute right ankle pain M25.571 ; Acute pain of right knee M25.561 ; Acute left-sided low back pain without sciatica M54.5 and Right leg pain M79.604 [facility] [address] [address] 15 Nov, 2017 [place] [place] [address] [address] 14 Nov, 2017 Fibromyalgia M79.7 [facility] [address] [place] [address] 13 Nov, 2017 Generalized anxiety disorder F41.1 and Mild episode of recurrent major depressive disorder F33.0 [facility] [address] [address] Nov, [facility] [id number] [place] [address] October, Generalized anxiety disorder F41.1 and Mild episode of recurrent major depressive disorder F33.0 [facility] [id number] [place] [address] October, Fibromyalgia M79.7 [facility] [id number] [place] [address] October, [facility] [id number] [place] [address] October, Generalized anxiety disorder F41.1 and Mild episode of recurrent major depressive disorder F33.0 [facility] [id number] [place] [address] October, [facility] [id number] [place] [address] Sep, Gastroesophageal reflux disease, esophagitis presence not specified K21.9 and Abnormal laboratory test R89.9 [facility] [id number] [place] [address] Sep, Fibromyalgia M79.7 [facility] [id number] [place] [address] Sep, Generalized anxiety disorder F41.1 and Mild episode of recurrent major depressive disorder F33.0 [facility] [id number] [place] [address] Sep, Epigastric pain R10.13 [facility] [id number] [place] [address] Sep, Mild episode of recurrent major depressive disorder F33.0 and Generalized anxiety disorder F41.1 [facility] [id number] [place] [address] Sep, Abnormal laboratory test R89.9 [facility] [id number] [place] [address] Sep, Generalized anxiety disorder F41.1 and Mild episode of recurrent major depressive disorder F33.0 [facility] [id number] [place] [address] 29 Aug, 2017 Epigastric pain R10.13 and Encounter for therapeutic drug level monitoring Z51.81 [facility] [id number] [place] [address] Aug, Epigastric pain R10.13 and Gastro-esophageal reflux disease without esophagitis K21.9 [facility] [id number] [place] [address] Aug, [place] [address] [address] Aug, Epigastric pain R10.13 [place] [address] [address] Aug, Fibromyalgia M79.7 [facility] [address] [address] 14 Aug, 2017 [place] [address] [address] Aug, Generalized anxiety disorder F41.1 and Mild episode of recurrent major depressive disorder F33.0 [place] [id number] [place] [address] 08 Aug, 2017 Epigastric pain R10.13 ; Reflex sympathetic dystrophy G90.50 and Arthritis M19.90 [facility] [id number] [place] [address] Jul, Generalized anxiety disorder F41.1 and Mild episode of recurrent major depressive disorder F33.0 [place] [place] [id number] [place] [address] Jul, BMI 40.0-44.9, adult Z68.41 ; Mild episode of recurrent major depressive disorder F33.0 and Generalized anxiety disorder F41.1 [place] [id number] [place] [address] Jul, Fibromyalgia M79.7 [facility] [id number] [place] [address] Jun, Mild episode of recurrent major depressive disorder F33.0 and Generalized anxiety disorder F41.1 [facility] [id number] [place] [address] Jun, Fibromyalgia M79.7 [facility] [id number] [place] [address] Jun, Generalized anxiety disorder F41.1 and Mild episode of recurrent major depressive disorder F33.0 [place] [id number] [place] [address] Jun, Generalized anxiety disorder F41.1 and Mild episode of recurrent major depressive disorder F33.0 [facility] [place] [id number] [place] [address] Jun, Generalized anxiety disorder F41.1 and Mild episode of recurrent major depressive disorder F33.0 [place] [place] [id number] [place] [address] Jun, [facility] [id number] [place] [address] Jun, Generalized anxiety disorder F41.1 and Mild episode of recurrent major depressive disorder F33.0 [facility] [id number] [place] [address] May, Fibromyalgia M79.7 [facility] [id number] [place] [address] May, Generalized anxiety disorder F41.1 and Mild episode of recurrent major depressive disorder F33.0 [place] [id number] [place] [address] May, Mixed hyperlipidemia E78.2 ; Arthritis M19.90 ; Reactive depression F32.9 and Hypothyroidism, unspecified type E03.9 [facility] [id number] [place] [address] May, Arthritis M19.90 ; Reactive depression F32.9 ; Mixed hyperlipidemia E78.2 and Hypothyroidism, unspecified type E03.9 [facility] [id number] [place] [address] Apr, Fibromyalgia M79.7 [facility] [address] [address] Apr, [facility] [id number] [place] [address] Apr, Fibromyalgia M79.7 [facility] [id number] [place] [address] Mar, Fibromyalgia M79.7 [facility] [address] [address] Mar, [facility] [id number] [place] [address] Mar, Fibromyalgia M79.7 [facility] [address] [address] Mar, [facility] [id number] [place] [address] Feb, Reflex sympathetic dystrophy G90.50 ; Right arm pain M79.601 and Fibromyalgia M79.7 [facility] [id number] [place] [address] Feb, [facility] [id number] [place] [address] Feb, Anxiety F41.9 [facility] [id number] [place] [address] 06 Feb, 2017 Fibromyalgia M79.7 [facility] [id number] [place] [address] Feb, [facility] [id number] [place] [address] Feb, [facility] [address] [address] Jan, Temporal headache R51 [facility] [id number] [place] [address] Jan, Fibromyalgia M79.7 [facility] [address] [address] Dec, Fibromyalgia M79.7 [facility] [id number] [place] [address] Nov, Peroneal tendonitis, unspecified laterality M76.70 and Plantar fasciitis, bilateral M72.2 [facility] [id number] [place] [address] Nov, Fibromyalgia M79.7 [facility] [id number] [place] [address] October, Fibromyalgia M79.7 [facility] [id number] [place] [address] October, Plantar fasciitis, bilateral M72.2 and Peroneal tendonitis, unspecified laterality M76.70 [facility] [id number] [place] [address] October, Fibromyalgia M79.7 [facility] [id number] [place] [address] Sep, Anxiety F41.9 [facility] [id number] [place] [address] Aug, Anxiety F41.9 and Adjustment disorder with anxiety F43.22 [facility] [id number] [place] [address] Aug, Pain of left foot M79.672 [facility] [address] [place] [address] Aug, Pain of left foot M79.672 and Pain in right foot M79.671 [place] [place] [address] [address] Aug, Arthritis M19.90 ; Reactive depression F32.9 ; Fibromyalgia M79.7 ; Rosacea L71.9 ; Pain in right foot M79.671 and Pain of left foot M79.672 [place] [address] [address] Aug, Anxiety F41.9 ; Adjustment disorder with anxiety F43.22 and Reactive depression F32.9 [facility] [address] [address] Aug, Right elbow pain M25.521 [place] [place] [address] [address] Aug, Plantar wart of right foot B07.0 and Actinic keratosis L57.0 [place] [place] [address] [address] Aug, Fibromyalgia M79.7 [place] [place] [address] [address] Jul, Arthritis M19.90 ; Hypothyroidism, unspecified type E03.9 ; Reactive depression F32.9 and Venous insufficiency I87.2 [facility] [id number] [place] [address] Jul, Gastroesophageal reflux disease, esophagitis presence not specified K21.9 [facility] [address] [address] Jul, Reflex sympathetic dystrophy G90.50 [facility] [address] [address] Jul, Anxiety F41.9 ; Adjustment disorder with anxiety F43.22 and Reactive depression F32.9 [facility] [id number] [place] [address] 15 Jul, 2016 [facility] [address] [address] 03 Jul, 2016 Right elbow pain M25.521 [facility] [address] [address] Jun, Fibromyalgia M79.7 [facility] [address] [address] Jun, Anxiety F41.9 ; Adjustment disorder with anxiety F43.22 and Reactive depression F32.9 [place] [address] [address] Jun, [place] [address] [address] Jun, Atypical chest pain R07.89 and Adjustment disorder with anxiety F43.22 [facility] [address] [id number] Jun, Chest pain, unspecified type R07.9 [place] [address] [address] Jun, Fibromyalgia M79.7 [facility] [address] [address] May, Anxiety F41.9 [facility] [address] [address] May, [facility] [address] [address] May, Right elbow pain M25.521 [facility] [address] [address] Apr, Reflex sympathetic dystrophy G90.50 and Encounter for immunization Z23 [facility] [address] [address] Apr, [facility] [address] [address] Mar, [facility] [id number] [place] [address] Feb, [facility] [address] [address] Feb, [facility] [id number] [place] [address] Jan, [facility] [address] [place] [address] Jan, Right elbow pain M25.521 and Right wrist pain M25.531 [facility] [id number] [place] [address] Jan, [facility] [id number] [place] [address] Dec, Seborrheic keratoses L82.1 [facility] [address] [address] Dec, [facility] [id number] [place] [address] Dec, [facility] [address] [address] Dec, [facility] [id number] [place] [address] Dec, Fibromyalgia M79.7 and Hypothyroidism, unspecified type E03.9 [facility] [address] [address] Dec, Seborrheic keratoses L82.1 [facility] [address] [address] Dec, [facility] [id number] [place] [address] Dec, [place] [address] [facility] [id number] [place] [address] Nov, Sebaceous cyst L72.3 [place] [address] [facility] [id number] [address] October, Breast cancer screening Z12.39 [place] [address] [facility] [id number] [address] October, Fibromyalgia M79.7 ; Hypothyroidism, unspecified type E03.9 and Reflex sympathetic dystrophy G90.50 [place] [address] [facility] [id number] [address] October, Reflex sympathetic dystrophy G90.50 ; Fibromyalgia M79.7 and Hypothyroidism, unspecified type E03.9 IMMUNIZATIONS No Known Immunizations SOCIAL HISTORY Never Assessed REASON FOR VISIT Controlled Med Refill 02/03 PLAN OF CARE VITAL SIGNS MEDICATIONS Medication [...]
--- OUTSIDE RECORDS SUMMARY | 2018-11-16 13:09 | XMS REPORT ---
Author Author JOE BAI Organization [facility] Address [address] [place] [address] Care Team Providers Care Internet Marketing Strategist Name Role Phone JOE BAI Unavailable PROBLEMS Type Condition ICD9-CM Code YOV35-UX Code Onset Dates Condition Status SNOMED Code Problem Reactive depression F32.9 Active 99210213 Problem Plantar wart of right foot B07.0 Active 94271606 Problem Gastroesophageal reflux disease, esophagitis presence not specified K21.9 Active 430617190 Problem Internal derangement of right knee M23.91 Active 132166356454522 Problem Abnormal laboratory test R89.9 Active 609027683 Problem Mixed hyperlipidemia E78.2 Active 546176036 Problem Rosacea L71.9 Active 316204348 Problem Mild episode of recurrent major depressive disorder F33.0 Active 250743769 Problem Generalized anxiety disorder F41.1 Active 61860043 Problem Hypothyroidism, unspecified type E03.9 Active 63291293 Problem Right elbow pain M25.521 Active 20292643 Problem Right wrist pain M25.531 Active 37357397 Problem Reflex sympathetic dystrophy G90.50 Active 83371077 Problem Venous insufficiency I87.2 Active 98496325 Problem Fibromyalgia M79.7 Active 348858310 Problem Arthritis M19.90 Active 8042226 ALLERGIES Substance Reaction Event Type Date Status Robaxin Unknown Drug Allergy Jan, Active Penicillin V Potassium Unknown Drug Allergy Jan, Active Demerol Unknown Drug Allergy Jan, Active Codeine Sulfate Unknown Drug Allergy Jan, Active ENCOUNTERS Encounter Location Date Diagnosis [facility] [address] [facility] [id number] [address] Mar, [facility] [id number] [address] Mar, [facility] [id number] [address] 24 Feb, 2018 [place] [address], [place] [address] Feb, Fibromyalgia M79.7 [place] [id number] [place] [address] 10 Feb, 2018 Generalized anxiety disorder F41.1 and Mild episode of recurrent major depressive disorder F33.0 [place] [id number] [place] [address] 06 Feb, 2018 [place] [id number] [place] [address] 04 Feb, 2018 Bronchospasm J98.01 and Arthritis M19.90 [place] [id number] [place] [address] Jan, Medicare annual wellness visit, initial Z00.00 ; Reactive depression F32.9 ; Reflex sympathetic dystrophy G90.50 ; Fibromyalgia M79.7 ; BMI 40.0- 44.9, adult Z68.41 ; Hypothyroidism, unspecified type E03.9 ; Gastroesophageal reflux disease, esophagitis presence not specified K21.9 ; Family history of osteoporosis Z82.62 ; Venous insufficiency I87.2 ; Arthritis M19.90 ; Mixed hyperlipidemia E78.2 and Generalized anxiety disorder F41.1 [place] [id number] [place] [address] Jan, Generalized anxiety disorder F41.1 and Mild episode of recurrent major depressive disorder F33.0 [place] [address] [place] [address] Jan, Mild episode of recurrent major depressive disorder F33.0 and Generalized anxiety disorder F41.1 [place] [id number] [place] [address] Jan, Fibromyalgia M79.7 [place] [id number] [place] [address] Jan, Bronchospasm J98.01 [place] [address] [address] Jan, [facility] [id number] [place] [address] Jan, Generalized anxiety disorder F41.1 and Mild episode of recurrent major depressive disorder F33.0 [facility] [id number] [place] [address] Jan, Bronchitis J40 [facility] [id number] [place] [address] Dec, Mild episode of recurrent major depressive disorder F33.0 [place] [id number] [place] [address] Dec, Generalized anxiety disorder F41.1 and Mild episode of recurrent major depressive disorder F33.0 [facility] [id number] [place] [address] Dec, Fibromyalgia M79.7 ; Arthritis M19.90 and Generalized anxiety disorder F41.1 [place] [id number] [place] [address] Dec, Mild episode of recurrent major depressive disorder F33.0 and Generalized anxiety disorder F41.1 [facility] [id number] [place] [address] Dec, Fibromyalgia M79.7 [facility] [id number] [place] [address] Dec, Bronchitis J40 and Internal derangement of right knee M23.91 [facility] [id number] [place] [address] Dec, Cough R05 [facility] [id number] [place] [address] Dec, Generalized anxiety disorder F41.1 and Mild episode of recurrent major depressive disorder F33.0 [facility] [id number] [place] [address] Dec, [facility] [address], [place] [address] Dec, [facility] [id number] [place] [address] Dec, Mild episode of recurrent major depressive disorder F33.0 and Generalized anxiety disorder F41.1 [facility] [id number] [place] [address] Nov, [facility] [id number] [place] [address] Nov, [facility] [id number] [place] [address] Nov, [facility] [id number] [place] [address] Nov, Internal derangement of right knee M23.91 [facility] [id number] [place] [address] Nov, Generalized anxiety disorder F41.1 and Mild episode of recurrent major depressive disorder F33.0 [facility] [address] [place] [address] Nov, Internal derangement of right knee M23.91 [facility] [address], [place] [address] Nov, Acute right ankle pain M25.571 ; Acute pain of right knee M25.561 ; Acute left-sided low back pain without sciatica M54.5 and Right leg pain M79.604 [place] [address] [place] [address] 15 Nov, 2017 [place] [id number] [place] [address] 14 Nov, 2017 Fibromyalgia M79.7 [place] [address] [place] [address] 13 Nov, 2017 Generalized anxiety disorder F41.1 and Mild episode of recurrent major depressive disorder F33.0 [facility] [id number] [place] [address] Nov, [place] [address] [address] October, Generalized anxiety disorder F41.1 and Mild episode of recurrent major depressive disorder F33.0 [place] [address] [address] October, Fibromyalgia M79.7 [place] [address] [address] October, [place] [address] [address] October, Generalized anxiety disorder F41.1 and Mild episode of recurrent major depressive disorder F33.0 [place] [address] [address] October, [place] [address] [address] Sep, Gastroesophageal reflux disease, esophagitis presence not specified K21.9 and Abnormal laboratory test R89.9 [place] [id number] [place] [address] Sep, Fibromyalgia M79.7 [place] [id number] [place] [address] Sep, Generalized anxiety disorder F41.1 and Mild episode of recurrent major depressive disorder F33.0 [place] [id number] [place] [address] Sep, Epigastric pain R10.13 [place] [address] [address] 10 Sep, 2017 Mild episode of recurrent major depressive disorder F33.0 and Generalized anxiety disorder F41.1 [place] [id number] [place] [address] Sep, Abnormal laboratory test R89.9 [facility] [id number] [place] [address] Sep, Generalized anxiety disorder F41.1 and Mild episode of recurrent major depressive disorder F33.0 [facility] [id number] [place] [address] 29 Aug, 2017 Epigastric pain R10.13 and Encounter for therapeutic drug level monitoring Z51.81 [facility] [id number] [place] [address] Aug, Epigastric pain R10.13 and Gastro-esophageal reflux disease without esophagitis K21.9 [place] [id number] [place] [address] Aug, [place] [address] [address] Aug, Epigastric pain R10.13 [place] [id number] [place] [address] Aug, Fibromyalgia M79.7 [place] [address] [address] 14 Aug, 2017 [place] [id number] [place] [address] Aug, Generalized anxiety disorder F41.1 and Mild episode of recurrent major depressive disorder F33.0 [place] [id number] [place] [address] 08 Aug, 2017 Epigastric pain R10.13 ; Reflex sympathetic dystrophy G90.50 and Arthritis M19.90 [place] [id number] [place] [address] Jul, Generalized anxiety disorder F41.1 and Mild episode of recurrent major depressive disorder F33.0 [place] [address] [address] Jul, BMI 40.0-44.9, adult Z68.41 ; Mild episode of recurrent major depressive disorder F33.0 and Generalized anxiety disorder F41.1 [facility] [id number] [place] [address] Jul, Fibromyalgia M79.7 [facility] [id number] [place] [address] Jun, Mild episode of recurrent major depressive disorder F33.0 and Generalized anxiety disorder F41.1 [facility] [id number] [place] [address] Jun, Fibromyalgia M79.7 [facility] [id number] [place] [address] Jun, Generalized anxiety disorder F41.1 and Mild episode of recurrent major depressive disorder F33.0 [facility] [id number] [place] [address] Jun, Generalized anxiety disorder F41.1 and Mild episode of recurrent major depressive disorder F33.0 [facility] [id number] [place] [address] Jun, Generalized anxiety disorder F41.1 and Mild episode of recurrent major depressive disorder F33.0 [facility] [id number] [place] [address] Jun, [facility] [id number] [place] [address] Jun, Generalized anxiety disorder F41.1 and Mild episode of recurrent major depressive disorder F33.0 [facility] [address] [place] [address] May, Fibromyalgia M79.7 [facility] [id number] [place] [address] May, Generalized anxiety disorder F41.1 and Mild episode of recurrent major depressive disorder F33.0 [facility] [address] [address] May, Mixed hyperlipidemia E78.2 ; Arthritis M19.90 ; Reactive depression F32.9 and Hypothyroidism, unspecified type E03.9 [facility] [address] [address] May, Arthritis M19.90 ; Reactive depression F32.9 ; Mixed hyperlipidemia E78.2 and Hypothyroidism, unspecified type E03.9 [facility] [address] [address] Apr, Fibromyalgia M79.7 [facility] [address] [address] Apr, [facility] [address] [address] Apr, Fibromyalgia M79.7 [facility] [address] [address] Mar, Fibromyalgia M79.7 [facility] [address] [address] Mar, [facility] [address] [address] Mar, Fibromyalgia M79.7 [facility] [address] [address] Mar, [facility] [address] [address] Feb, Reflex sympathetic dystrophy G90.50 ; Right arm pain M79.601 and Fibromyalgia M79.7 [facility] [address] [address] Feb, [facility] [address] [address] Feb, Anxiety F41.9 [facility] [address] [address] Feb, Fibromyalgia M79.7 [facility] [id number] [place] [address] Feb, [facility] [id number] [place] [address] Feb, [facility] [id number] [place] [address] Jan, Temporal headache R51 [facility] [id number] [place] [address] Jan, Fibromyalgia M79.7 [facility] [address] [address] Dec, Fibromyalgia M79.7 [facility] [id number] [place] [address] Nov, Peroneal tendonitis, unspecified laterality M76.70 and Plantar fasciitis, bilateral M72.2 [facility] [id number] [place] [address] Nov, Fibromyalgia M79.7 [facility] [id number] [place] [address] October, Fibromyalgia M79.7 [facility] [id number] [place] [address] October, Plantar fasciitis, bilateral M72.2 and Peroneal tendonitis, unspecified laterality M76.70 [facility] [id number] [place] [address] October, Fibromyalgia M79.7 [facility] [id number] [place] [address] Sep, Anxiety F41.9 [facility] [id number] [place] [address] Aug, Anxiety F41.9 and Adjustment disorder with anxiety F43.22 [facility] [address] [address] Aug, Pain of left foot M79.672 [place] [address] [address] Aug, Pain of left foot M79.672 and Pain in right foot M79.671 [place] [address] [address] Aug, Arthritis M19.90 ; Reactive depression F32.9 ; Fibromyalgia M79.7 ; Rosacea L71.9 ; Pain in right foot M79.671 and Pain of left foot M79.672 [place] [address] [address] Aug, Anxiety F41.9 ; Adjustment disorder with anxiety F43.22 and Reactive depression F32.9 [place] [address] [address] Aug, Right elbow pain M25.521 [place] [address] [address] Aug, Plantar wart of right foot B07.0 and Actinic keratosis L57.0 [place] [address] [address] Aug, Fibromyalgia M79.7 [place] [address] [address] Jul, Arthritis M19.90 ; Hypothyroidism, unspecified type E03.9 ; Reactive depression F32.9 and Venous insufficiency I87.2 [place] [address] [address] Jul, Gastroesophageal reflux disease, esophagitis presence not specified K21.9 [place] [address] [address] Jul, Reflex sympathetic dystrophy G90.50 [place] [id number] [place] [address] 17 Jul, 2016 Anxiety F41.9 ; Adjustment disorder with anxiety F43.22 and Reactive depression F32.9 [place] [id number] [place] [address] 15 Jul, 2016 [place] [id number] [place] [address] Jul, Right elbow pain M25.521 [place] [id number] [place] [address] Jun, Fibromyalgia M79.7 [place] [address] [address] Jun, Anxiety F41.9 ; Adjustment disorder with anxiety F43.22 and Reactive depression F32.9 [place] [address] [address] Jun, [place] [id number] [place] [address] Jun, Atypical chest pain R07.89 and Adjustment disorder with anxiety F43.22 [place] [address] [id number] Jun, Chest pain, unspecified type R07.9 [place] [id number] [place] [address] Jun, Fibromyalgia M79.7 [place] [id number] [place] [address] May, Anxiety F41.9 [place] [id number] [place] [address] May, [place] [id number] [place] [address] May, Right elbow pain M25.521 [place] [address] [address] Apr, Reflex sympathetic dystrophy G90.50 and Encounter for immunization Z23 [facility] [id number] [place] [address] Apr, [facility] [id number] [place] [address] Mar, [facility] [id number] [place] [address] Feb, [facility] [id number] [place] [address] Feb, [facility] [id number] [place] [address] Jan, [facility] [id number] [place] [address] Jan, Right elbow pain M25.521 and Right wrist pain M25.531 [facility] [id number] [place] [address] Jan, [facility] [id number] [place] [address] Dec, Seborrheic keratoses L82.1 [facility] [id number] [place] [address] Dec, [facility] [id number] [place] [address] Dec, [facility] [id number] [place] [address] Dec, [facility] [id number] [place] [address] Dec, Fibromyalgia M79.7 and Hypothyroidism, unspecified type E03.9 [facility] [id number] [place] [address] Dec, Seborrheic keratoses L82.1 [facility] [address] [place] [address] Dec, [facility] [address] [place] [address] Dec, [facility] [address] [place] [address] Nov, Sebaceous cyst L72.3 [place] [address] [place] [address] October, Breast cancer screening Z12.39 [place] [address] [place] [address] October, Fibromyalgia M79.7 ; Hypothyroidism, unspecified type E03.9 and Reflex sympathetic dystrophy G90.50 [place] [address] [place] [address] October, Reflex sympathetic dystrophy G90.50 ; Fibromyalgia M79.7 and Hypothyroidism, unspecified type E03.9 IMMUNIZATIONS No Known Immunizations SOCIAL HISTORY Never Assessed REASON FOR VISIT Cough non-productive, yellow/green sputum, increased soa and chest tightness. 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 RN PLAN OF CARE Activity Details Follow Up 3 Weeks Reason: VITAL SIGNS Height 62 in 2018-01-30 Weight 215.7 lbs 2018-01-30 Temperature 98.3 degrees Fahrenheit 2018-01-30 Heart Rate 94 bpm 2018-01-30 Respiratory Rate 20 2018-01-30 Oximetry 99 % 2018-01-30 BMI 39.45 kg/m2 2018-01-30 Blood pressure systolic 112 mmHg 2018-01-30 Blood pressure diastolic 78 mmHg 2018-01-30 MEDICATIONS Medication Instructions Dosage Frequency Start Date End Date Duration Status Rexulti 2 MG Orally Once a day 1 tablet 24h Nov, 30 days Active Pantoprazole Sodium 40MG Orally Once a day 1 tablet 24h Active Tizanidine HCl 4 MG Orally Three times a day 1 tablet as needed 8h Active Guaifenesin 400 mg Orally every 4 hrs 1 tablet as needed 4h Jan, Active HydrOXYzine HCl 10MG Orally three times a day as needed for anxiety and sleep 1 tablet Active Amitriptyline HCl 10 mg Orally QHS 1 tablet Active Orphenadrine Citrate ER 100 mg Orally twice a day 1 tablet 12h Active Excedrin Migraine 250-250-65 MG Orally every 6 hrs 2 tablets as needed 6h Active Celebrex 200 mg Orally Once a day 1 capsule with food 24h 30 Active Levothyroxine Sodium 75 TAKE ONE TABLET BY MOUTH ONCE DAILY 90 Not-Taking Symbicort 160-4.5 MCG/ACT Inhalation Twice a day 2 puffs 12h Jan, Active Cetirizine HCl 10 MG Orally Once a day 1 tablet 24h Active ProAir HFA 108 (90 Base) MCG/ACT Inhalation every 6 hrs 2 puffs as needed 6h Jan, Active PredniSONE 20 mg Orally Once a day 2 tab 4 days, then 1 tab 6ayys 24h Jan, Feb, 10 days Active Levothyroxine Sodium 75MCG TAKE ONE TABLET BY MOUTH ONCE DAILY Active Hydrocodone-Acetaminophen 7.5-325 MG Orally 3 times a day 1 tablet 8h Dec, 28 days Active Topiramate 200MG Orally twice a day 1 tablet 12h Active RESULTS No Results PROCEDURES Procedure Date Ordered Result Body Site [facility] VISIT ESTABLISHED PATIENT Jan 30, 2018 INSTRUCTIONS MEDICATIONS ADMINISTERED No Known Medications [...]
--- OUTSIDE RECORDS SUMMARY | 2018-11-16 13:40 | XMS REPORT | Continuity of Care Document ---
Author Organization Unknown Address Unknown Allergies Active Description Code Type Severity Reaction Onset Reported/Identified Relationship to Patient Clinical Status Yes meperidine [id number] Drug Allergy Moderate HIVES 07/24/2010 Yes Penicillins [id number] Drug Allergy Moderate HIVES 07/24/2010 Yes codeine [id number] Drug Allergy Mild PALPITATIONS 07/24/2010 Yes methocarbamol [id number] Drug Allergy Unknown HOSTILE/AGGRESS 07/02/2016 Yes baclofen [id number] Drug Allergy Unknown dizzy, nausea 09/07/2017 Yes divalproex sodium [id number] Drug Allergy Unknown N/A 09/07/2017 Yes metaxalone [id number] Drug Allergy Unknown "bad for me" 09/07/2017 Yes tizanidine [id number] Drug Allergy Unknown drowsy 09/07/2017 Medications There [...] G89.29 OTHER CHRONIC PAIN 01/29/2017 ARUNA MARTINEZ MD, Ot K21.9 GASTRO-ESOPHAGEAL REFLUX DISEASE WITHOUT 01/29/2017 [...] RIGHT ARM 04/05/2017 FROYLAN VELA, JOSE MANUEL M Ot M79.621 PAIN IN RIGHT UPPER ARM 04/05/2017 FROYLAN VELA, JOSE MANUEL M Ot R22.31 LOCALIZED SWELLING, MASS AND LUMP, RIGHT 04/08/2017 BHUMIKA VELA, JOE Austin Ot M79.601 PAIN IN RIGHT ARM 2017 BHUMIKA VELA, JOE Austin Ot M79.601 PAIN IN RIGHT ARM 04/27/2017 FROYLAN VELA, JOSE MANUEL M Ot M79.621 PAIN IN RIGHT UPPER ARM 04/27/2017 FROYLAN VELA, JOSE MANUEL M Ot R22.31 LOCALIZED SWELLING, MASS AND LUMP, RIGHT 05/05/2017 FROYLAN VELA, JOSE MANUEL M Ot M79.621 PAIN IN RIGHT UPPER ARM [...] NEURALGIA AND NEURITIS, UNSPECIFIED 06/29/2017 RIVERS DO, SLYVESTER Ot R13.10 DYSPHAGIA, UNSPECIFIED 06/29/2017 RIVERS DO, SYLVESTER Ot R20.8 OTHER DISTURBANCES OF SKIN SENSATION 06/30/2017 RIVERS DO, SYLVESTER Ot R13.10 DYSPHAGIA, UNSPECIFIED 07/12/2017 RIVERS DO, SYLVESTER Ot R13.10 DYSPHAGIA, UNSPECIFIED 09/07/2017 GREY [...] PERSONAL HISTORY OF OTHER DISEASES OF TH 09/07/2017 GREY MCKEON APRN Ot Z87.59 PERSONAL HISTORY OF COMP OF PREG, CHLDBR 09/07/2017 GREY MCKEON APRN Ot Z88.0 ALLERGY STATUS TO PENICILLIN 09/07/2017 GREY MCKEON APRN Ot Z88.1 ALLERGY STATUS TO OTHER ANTIBIOTIC AGENT 09/07/2017 GREY MCKEON APRN Ot Z88.5 ALLERGY STATUS TO NARCOTIC AGENT STATUS 09/07/2017 GREY MCKEON APRN Ot Z88.6 ALLERGY STATUS [...] HISTORY OF COMP OF PREG, CHLDBR 09/09/2017 RGEY MCKEON APRN Ot Z88.0 ALLERGY STATUS TO [...] OTHER DISEASES OF TH 09/21/2017 GREY MCKEON APRN Ot Z87.59 PERSONAL HISTORY OF COMP OF PREG, CHLDBR 09/21/2017 GREY MCKEON APRN Ot Z88.0 ALLERGY STATUS TO PENICILLIN 09/21/2017 GREY MCKEON APRN Ot Z88.1 ALLERGY STATUS TO OTHER ANTIBIOTIC AGENT 09/21/2017 GREY MCKEON APRN Ot Z88.6 ALLERGY STATUS TO ANALGESIC AGENT STATUS 09/21/2017 GREY MCKEON APRN Ot Z88.8 ALLERGY STATUS TO OTH DRUG/MEDS/BIOL SUB 09/21/2017 GREY MCKOEN APRN Ot Z90.49 ACQUIRED ABSENCE OF OTHER SPECIFIED PART 09/21/2017 GREY MCKEON APRN Ot Z90.89 ACQUIRED ABSENCE OF OTHER ORGANS 09/23/2017 GREY MCKEON APRN Ot E03.9 HYPOTHYROIDISM, UNSPECIFIED 09/23/2017 GREY MCKEON APRN Ot F32.9 MAJOR DEPRESSIVE DISORDER, SINGLE EPISOD 09/23/2017 GREY MCKEON APRN Ot K21.9 GASTRO-ESOPHAGEAL REFLUX DISEASE WITHOUT 09/23/2017 GREY MCKEON APRN Ot R10.84 GENERALIZED ABDOMINAL PAIN 09/23/2017 GREY MCKEON APRN Ot Z87.19 PERSONAL HISTORY OF OTHER DISEASES OF TH 09/23/2017 GREY MCKEON DRUM DRIER Ot Z87.59 PERSONAL HISTORY OF COMP OF PREG, CHLDBR 09/23/2017 GREY MCKEON DRUM DRIER Ot Z88.0 ALLERGY STATUS TO PENICILLIN 09/23/2017 GREY MCKEON DRUM DRIER Ot Z88.1 ALLERGY STATUS TO OTHER ANTIBIOTIC AGENT 09/23/2017 GREY MCKEON DRUM DRIER Ot Z88.6 ALLERGY STATUS TO ANALGESIC AGENT STATUS 09/23/2017 GREY MCKEON DRUM DRIER Ot Z88.8 ALLERGY STATUS TO OTH DRUG/MEDS/BIOL SUB 09/23/2017 GREY MCKEON APRN Ot Z90.49 ACQUIRED ABSENCE OF OTHER SPECIFIED PART 09/23/2017 GREY MCKEON APRN Ot Z90.89 ACQUIRED ABSENCE OF OTHER ORGANS 10/07/2017 KAITY MENCHACA MD Ot E03.9 HYPOTHYROIDISM, UNSPECIFIED 10/07/2017 KAITY MENCHACA MD Ot F32.9 MAJOR DEPRESSIVE DISORDER, SINGLE EPISOD 10/07/2017 KAITY MENCHACA MD Ot F41.9 ANXIETY DISORDER, UNSPECIFIED 10/07/2017 KAITY MENCHACA MD Ot K59.09 OTHER CONSTIPATION 10/07/2017 KAITY MENCHACA MD Ot M79.7 FIBROMYALGIA 10/07/2017 KAITY MENCHACA MD Ot R07.9 CHEST PAIN, UNSPECIFIED 10/07/2017 KAITY MENCHACA MD Ot E03.9 HYPOTHYROIDISM, UNSPECIFIED 10/07/2017 KAITY MENCHACA MD Ot F32.9 MAJOR DEPRESSIVE DISORDER, SINGLE EPISOD 10/07/2017 KAITY MENCHACA MD Ot F41.9 ANXIETY DISORDER, UNSPECIFIED 10/07/2017 KAITY MENCHACA MD Ot K59.09 OTHER CONSTIPATION 10/07/2017 KAITY MENCHACA MD Ot M79.7 FIBROMYALGIA 10/07/2017 KAITY MENCHACA MD Ot R07.9 CHEST PAIN, UNSPECIFIED 12/06/2017 ANA MARIA SCHULTZ DRUM DRIER Ot M79.604 PAIN IN RIGHT LEG 12/07/2017 ANA MARIA SCHULTZ DRUM DRIER Ot M25.471 EFFUSION, RIGHT ANKLE 12/07/2017 SCHULTZ, JAIMA A DRUM DRIER Ot M25.561 PAIN IN RIGHT KNEE 12/12/2017 ANA MARIA SCHULTZ DRUM DRIER Ot M25.471 EFFUSION, RIGHT ANKLE 12/12/2017 SCHULTZANA MARIA ALLEN DRUM DRIER Ot M25.561 PAIN IN RIGHT KNEE 12/22/2017 ANA MARIA SCHULTZ DRUM DRIER Ot M25.471 EFFUSION, RIGHT ANKLE 12/22/2017 ANA MARIA SCHULTZ DRUM DRIER Ot M25.561 PAIN IN RIGHT KNEE 02/23/2018 BHUMIKA VELA, JOE Austin Ot Z00.00 ENCNTR FOR GENERAL ADULT MEDICAL EXAM W02/23/2018 JOE BAI MD Ot Z82.62 FAMILY HISTORY OF OSTEOPOROSIS 02/23/2018 JOE BAI MD Ot Z12.31 ENCNTR SCREEN MAMMOGRAM FOR MALIGNANT NE 02/23/2018 JOYCELYN VELA, LEONID Gallardo Ot R07.9 CHEST PAIN, UNSPECIFIED 02/23/2018 JOE BAI MD Ot M79.601 PAIN IN RIGHT ARM 02/23/2018 FROYLAN VELA, JOSE MANUEL Lopes Ot M79.621 PAIN IN RIGHT UPPER ARM 02/23/2018 FROYLAN VELA, JOSE MANUEL M Ot R22.31 LOCALIZED SWELLING, MASS AND LUMP, RIGHT 02/23/2018 RIVERS DO, SYLVESTER Ot R13.10 DYSPHAGIA, UNSPECIFIED 02/23/2018 SCHULTZANA MARIA ALLEN DRUM DRIER Ot M25.471 EFFUSION, RIGHT ANKLE 02/23/2018 SCHULTZANA MARIA ALLEN DRUM DRIER Ot M25.561 PAIN IN RIGHT KNEE 02/23/2018 JOE BAI MD Ot Z00.00 ENCNTR FOR GENERAL ADULT MEDICAL EXAM W02/23/2018 JOE BAI MD Ot Z82.62 FAMILY HISTORY OF OSTEOPOROSIS 03/07/2018 KRISTYN VIGIL Ot E03.9 HYPOTHYROIDISM, UNSPECIFIED 03/07/2018 KRISTYN VIGIL Ot F32.9 MAJOR DEPRESSIVE DISORDER, SINGLE EPISOD 03/07/2018 KRISTYN VIGIL Ot F41.9 ANXIETY DISORDER, UNSPECIFIED 03/07/2018 KRISTYN VIGIL Ot G43.909 MIGRAINE, UNSP, NOT INTRACTABLE, WITHOUT 03/07/2018 KRISTYN VIGIL Ot J45.909 UNSPECIFIED ASTHMA, UNCOMPLICATED 03/07/2018 KRISTYN VIGIL Ot K21.9 GASTRO- ESOPHAGEAL REFLUX DISEASE WITHOUT 03/07/2018 CINDY VIGILIS Ot M25.561 PAIN IN RIGHT KNEE 03/07/2018 CINDY VIGILIS Ot S83.91XA SPRAIN OF UNSPECIFIED SITE OF RIGHT KNEE 03/07/2018 YARITZA KRISTYN Ot W19.XXXA UNSPECIFIED FALL, INITIAL ENCOUNTER 03/07/2018 CINDY VIGILIS Ot Z79.82 JAIL (CURRENT) USE OF ASPIRIN 03/07/2018 CINDY VIGILIS Ot Z82.49 FAMILY HX OF ISCHEM HEART DIS AND OTH DI 03/07/2018 CINDY VIGILIS Ot Z87.19 PERSONAL HISTORY OF OTHER DISEASES OF TH 03/07/2018 KRISTYN VIGIL Ot Z88.0 ALLERGY STATUS TO PENICILLIN 03/07/2018 CINDY VIGILIS Ot Z88.5 ALLERGY STATUS TO NARCOTIC AGENT STATUS 03/07/2018 CINDY VIGILIS Ot Z88.6 ALLERGY STATUS TO ANALGESIC AGENT STATUS 03/07/2018 CINDY VIGILIS Ot Z88.8 ALLERGY STATUS TO OTH DRUG/MEDS/BIOL SUB 03/07/2018 CINDY VIGILIS Ot Z90.89 ACQUIRED ABSENCE OF OTHER ORGANS 03/07/2018 CINDY VIGILIS Ot Z98.890 OTHER SPECIFIED POSTPROCEDURAL STATES 03/09/2018 CINDY VIGILIS Ot E03.9 HYPOTHYROIDISM, UNSPECIFIED 03/09/2018 CINDY VIGILIS Ot F32.9 MAJOR DEPRESSIVE DISORDER, SINGLE EPISOD 03/09/2018 CINDY VIGILIS Ot F41.9 ANXIETY DISORDER, UNSPECIFIED 03/09/2018 CINDY VIGILIS Ot G43.909 MIGRAINE, UNSP, NOT INTRACTABLE, WITHOUT 03/09/2018 CINDY VIGILIS Ot J45.909 UNSPECIFIED ASTHMA, UNCOMPLICATED 03/09/2018 CINDY VIGILIS Ot K21.9 GASTRO- ESOPHAGEAL REFLUX DISEASE WITHOUT 03/09/2018 CINDY VIGILIS Ot M25.561 PAIN IN RIGHT KNEE 03/09/2018 CINDY VIGILIS Ot S83.91XA SPRAIN OF UNSPECIFIED SITE OF RIGHT KNEE 03/09/2018 CINDY VIGILIS Ot W19.XXXA UNSPECIFIED FALL, INITIAL ENCOUNTER 03/09/2018 KRISTYN VIGIL Ot Z79.82 DISPLAY TRIMMER (CURRENT) USE OF ASPIRIN 03/09/2018 KRISTYN VIGIL Ot Z82.49 FAMILY HX OF ISCHEM HEART DIS AND OTH DI 03/09/2018 KRISTYN VIGIL Ot Z87.19 PERSONAL HISTORY OF OTHER DISEASES OF TH 03/09/2018 KRISTYN VIGIL Ot Z88.0 ALLERGY STATUS TO PENICILLIN 03/09/2018 KRISTYN VIGIL Ot Z88.5 ALLERGY STATUS TO NARCOTIC AGENT STATUS 03/09/2018 KRISTYN VIGIL Ot Z88.6 ALLERGY STATUS TO ANALGESIC AGENT STATUS 03/09/2018 KRISTYN VIGIL Ot Z88.8 ALLERGY STATUS TO OTH DRUG/MEDS/BIOL SUB 03/09/2018 KRISTYN VIGIL Ot Z90.89 ACQUIRED ABSENCE OF OTHER ORGANS 03/09/2018 KRISTYN VIGIL Ot Z98.890 OTHER SPECIFIED POSTPROCEDURAL STATES 03/15/2018 BHUMIKA VELA, JOE Austin Ot M81.0 AGE-RELATED OSTEOPOROSIS W/O CURRENT PAT 03/15/2018 JOE BAI MD Ot Z12.31 ENCNTR SCREEN MAMMOGRAM FOR MALIGNANT NE 03/15/2018 JOE BAI MD Ot Z82.62 FAMILY HISTORY OF OSTEOPOROSIS 10/21/2018 GREY MCKEON APRN Ot E03.9 HYPOTHYROIDISM, UNSPECIFIED 10/21/2018 GREY MCKEON APRN Ot F32.9 MAJOR DEPRESSIVE DISORDER, SINGLE EPISOD 10/21/2018 GREY MCKEON APRN Ot F41.9 ANXIETY DISORDER, UNSPECIFIED 10/21/2018 GREY MCKEON APRN Ot G43.909 MIGRAINE, UNSP, NOT INTRACTABLE, WITHOUT 10/21/2018 GREY MCKEON APRN Ot J45.909 UNSPECIFIED ASTHMA, UNCOMPLICATED 10/21/2018 GREY MCKEON APRN Ot K21.9 GASTRO-ESOPHAGEAL REFLUX DISEASE WITHOUT 10/21/2018 GREY MCKEON APRN Ot K58.9 IRRITABLE BOWEL SYNDROME WITHOUT DIARRHE 10/21/2018 GREY MCKEON APRN Ot M79.7 FIBROMYALGIA 10/21/2018 GREY MCKEON APRN Ot N39.0 URINARY TRACT INFECTION, SITE NOT SPECIF 10/21/2018 GREY MCKEON APRN Ot R10.31 RIGHT LOWER QUADRANT PAIN 10/21/2018 GREY MCKEON APRN Ot Z79.82 JAIL (CURRENT) USE OF ASPIRIN 10/21/2018 GREY MCKEON APRN Ot Z82.49 FAMILY HX OF ISCHEM HEART DIS AND OTH DI 10/21/2018 GREY MCKEON APRN Ot Z87.19 PERSONAL HISTORY OF OTHER DISEASES OF TH 10/21/2018 GREY MCKEON APRN Ot Z87.891 PERSONAL HISTORY OF NICOTINE DEPENDENCE 10/21/2018 GREY MCKEON APRN Ot Z88.0 ALLERGY STATUS TO PENICILLIN 10/21/2018 GREY MCKEON APRN Ot Z88.5 ALLERGY STATUS TO NARCOTIC AGENT STATUS 10/21/2018 GREY MCKEON APRN Ot Z88.6 ALLERGY STATUS TO ANALGESIC AGENT STATUS 10/21/2018 GREY MCKEON APRN Ot Z88.8 ALLERGY STATUS TO OTH DRUG/MEDS/BIOL SUB 10/21/2018 GREY MCKEON APRN Ot Z90.49 ACQUIRED ABSENCE OF OTHER SPECIFIED PART 10/21/2018 GREY MCKEON APRN Ot Z90.89 ACQUIRED ABSENCE OF OTHER ORGANS 10/21/2018 GREY MCKEON APRN Ot Z98.890 OTHER SPECIFIED POSTPROCEDURAL STATES 10/24/2018 GREY MCKEON APRN Ot E03.9 HYPOTHYROIDISM, UNSPECIFIED 10/24/2018 GREY MCKEON APRN Ot F32.9 MAJOR DEPRESSIVE DISORDER, SINGLE EPISOD 10/24/2018 GREY MCKEON APRN Ot F41.9 ANXIETY DISORDER, UNSPECIFIED 10/24/2018 GREY MCKEON APRN Ot G43.909 MIGRAINE, UNSP, NOT INTRACTABLE, WITHOUT 10/24/2018 GREY MCKEON APRN Ot J45.909 UNSPECIFIED ASTHMA, UNCOMPLICATED 10/24/2018 GREY MCKEON APRN Ot K21.9 GASTRO-ESOPHAGEAL REFLUX DISEASE WITHOUT 10/24/2018 GREY MCKEON APRN Ot K58.9 IRRITABLE BOWEL SYNDROME WITHOUT DIARRHE 10/24/2018 GREY MCKEON APRN Ot M79.7 FIBROMYALGIA 10/24/2018 GREY MCKEON APRN Ot N39.0 URINARY TRACT INFECTION, SITE NOT SPECIF 10/24/2018 GREY MCKEON APRN Ot R10.31 RIGHT LOWER QUADRANT PAIN 10/24/2018 GREY MCKEON APRN Ot Z79.82 JAIL (CURRENT) USE OF ASPIRIN 10/24/2018 GREY MCKEON APRN Ot Z82.49 FAMILY HX OF ISCHEM HEART DIS AND OTH DI 10/24/2018 GREY MCKEON APRN Ot Z87.19 PERSONAL HISTORY OF OTHER DISEASES OF TH 10/24/2018 GREY MCKEON APRN Ot Z87.891 PERSONAL HISTORY OF NICOTINE DEPENDENCE 10/24/2018 GREY MCKEON APRN Ot Z88.0 ALLERGY STATUS TO PENICILLIN 10/24/2018 GREY MCKEON APRN Ot Z88.5 ALLERGY STATUS TO NARCOTIC AGENT STATUS 10/24/2018 GREY MCKEON APRN Ot Z88.6 ALLERGY STATUS TO ANALGESIC AGENT STATUS 10/24/2018 GREY MCKEON APRN Ot Z88.8 ALLERGY STATUS TO OTH DRUG/MEDS/BIOL SUB 10/24/2018 GREY MCKEON APRN Ot Z90.49 ACQUIRED ABSENCE OF OTHER SPECIFIED PART 10/24/2018 GREY MCKEON APRN Ot Z90.89 ACQUIRED ABSENCE OF OTHER ORGANS 10/24/2018 GREY MCKEON APRN Ot Z98.890 OTHER SPECIFIED POSTPROCEDURAL STATES Procedures There is no data. Results Test [...] Automated erythrocyte mean corpuscular hemoglobin concentration measurement (mass/volume) 34 g/dL 32-36 Automated erythrocyte distribution width ratio 12.7 % 10.0- 14.5 Automated blood platelet count (count/volume) 350 10*3/uL [...] Blood monocytes automated count (number/volume) 1.2 10*3 0.0- 1.0 Automated eosinophil count 0.2 10*3/uL 0.0-0.3 Automated [...] Serum or plasma aspartate aminotransferase measurement (enzymatic activity/volume) 20 U/L 5-34 Serum or plasma alanine aminotransferase measurement (enzymatic activity/volume) 13 U/L 0-55 Serum or plasma protein measurement (mass/volume) 7.4 g/dL 6.4-8.2 Serum or plasma albumin measurement (mass/volume) 4.2 g/dL 3.2-4.5 Serum or plasma creatine kinase measurement (enzymatic activity/volume) - 07/02/16 21:52 Serum or plasma creatine kinase measurement (enzymatic activity/volume) 89 U/L 29-168 Serum or plasma creatine kinase MB measurement (enzymatic activity/volume) - 07/02/16 21:52 Serum or plasma creatine kinase MB measurement (enzymatic activity/volume) 1.4 ng/mL <6.6 Serum or plasma troponin i.cardiac measurement (mass/volume) - 07/02/16 21:52 Serum or plasma troponin i.cardiac measurement (mass/volume) < ng/mL <0.30 Serum or plasma amylase measurement (enzymatic activity/volume) - 07/02/16 21:52 Serum or plasma amylase measurement (enzymatic activity/volume) 67 U/L 25-125 Lipase - 07/02/16 21:52 Lipase 45 [...] Automated erythrocyte mean corpuscular hemoglobin concentration measurement (mass/volume) 34 g/dL 32-36 Automated erythrocyte distribution width ratio 12.7 % 10.0- 14.5 Automated blood platelet count (count/volume) 317 10*3/uL [...] Blood monocytes automated count (number/volume) 0.9 10*3 0.0- 1.0 Automated eosinophil count 0.2 10*3/uL 0.0-0.3 Automated [...] Serum or plasma aspartate aminotransferase measurement (enzymatic activity/volume) 19 U/L 5-34 Serum or plasma alanine aminotransferase measurement (enzymatic activity/volume) 10 U/L 0-55 Serum or plasma protein measurement (mass/volume) 6.8 g/dL 6.4-8.2 Serum or plasma albumin measurement (mass/volume) 3.8 g/dL 3.2-4.5 Serum or plasma phosphate measurement (mass/volume) - 07/03/16 03:48 Serum or plasma phosphate measurement (mass/volume) 4.1 mg/dL 2.3-4.7 Magnesium - 07/03/16 03:48 Magnesium 2.1 mg/dL 1.8-2.4 Serum or plasma creatine kinase measurement (enzymatic activity/volume) - 07/03/16 03:48 Serum or plasma creatine kinase measurement (enzymatic activity/volume) 74 U/L 29-168 Serum or plasma troponin i.cardiac measurement (mass/volume) - 07/03/16 03:48 Serum or plasma troponin i.cardiac measurement (mass/volume) < ng/mL <0.30 Myoglobin, serum - 07/03/16 03:48 Myoglobin, serum 24.8 ng/mL 10.0-92.0 Lipid 1996 panel - 07/03/16 03:48 Serum or plasma triglyceride measurement (mass/volume) 90 mg/dL <150 Serum or plasma cholesterol measurement (mass/volume) 194 mg/dL < 200 Serum or plasma cholesterol in HDL measurement (mass/volume) 51 mg/dL 40-60 Cholesterol in LDL [mass/volume] in serum or plasma by direct assay 126 mg/dL 1-129 Serum or plasma cholesterol in VLDL measurement (mass/volume) 18 mg/dL 5-40 Complete urinalysis with reflex to culture - 07/03/16 05:00 Urine color determination YELLOW NRG Urine clarity determination CLEAR NRG Urine pH measurement by test strip 6 5-9 Specific gravity of urine by test strip 1.020 1.016-1.022 Urine protein assay by test strip, semi-quantitative [...] sediment leukocyte count by microscopy (number/high power field) [HPF] NRG Bacteria detection in urine sediment [...] culture - 07/03/16 05:00 Bacterial urine culture [id number] NRG COLONY COUNT 10,000/ML - 100,000/ML NRG FTX;REPORTABLE SEE COMMENT NRG URINE CULTURE RESULTS PLUS NRG Bacterial susceptibility panel - 07/03/16 05:00 Gentamicin susceptibility test by minimum inhibitory concentration <= NRG Trimethoprim/sulfamethoxazole susceptibility test by minimum inhibitoryconcentration <= NRG Ampicillin susceptibility test by minimum inhibitory concentration R NRG Tobramycin susceptibility test by minimum inhibitory concentration <= NRG Cefazolin susceptibility test by minimum inhibitory concentration <= NRG Ceftriaxone susceptibility test by minimum inhibitory concentration <= NRG Ampicillin/sulbactam susceptibility test by minimum inhibitory concentration 4 NRG Piperacillin/tazobactam susceptibility test by minimum inhibitory concentration <= NRG Ciprofloxacin susceptibility test by minimum inhibitory concentration <= NRG Meropenem susceptibility test by minimum inhibitory concentration <= NRG Nitrofurantoin susceptibility test by minimum inhibitory concentration <= NRG Aztreonam susceptibility test by minimum inhibitory concentration <= NRG Extended spectrum beta lactamase (ESBL) producing bacteria susceptibility test by minimum inhibitory concentration - NRG Complete blood count (CBC) with automated [...] Automated erythrocyte mean corpuscular hemoglobin concentration measurement (mass/volume) 33 g/dL 32-36 Automated erythrocyte distribution width ratio 13.2 % 10.0- 14.5 Automated blood platelet count (count/volume) 297 10*3/uL [...] Blood monocytes automated count (number/volume) 1.0 10*3 0.0- 1.0 Automated eosinophil count 0.4 10*3/uL 0.0-0.3 Automated [...] Serum or plasma aspartate aminotransferase measurement (enzymatic activity/volume) 18 U/L 5-34 Serum or plasma alanine aminotransferase measurement (enzymatic activity/volume) 9 U/L 0-55 Serum or plasma protein measurement (mass/volume) 6.8 g/dL 6.4-8.2 Serum or plasma albumin measurement (mass/volume) 3.8 g/dL 3.2-4.5 Serum or plasma C reactive protein measurement (mass/volume) - 01/29/17 16:39 Serum or plasma C reactive protein measurement (mass/volume) 1.03 mg/dL 0.00-0.50 Complete urinalysis with reflex to culture - 01/29/17 16:40 Urine color determination YELLOW NRG Urine clarity determination CLEAR NRG Urine pH measurement by test strip 7 5-9 Specific gravity of urine by test strip 1.015 1.016-1.022 Urine protein assay by test strip, semi-quantitative [...] sediment leukocyte count by microscopy (number/high power field) [HPF] NRG Bacteria detection in urine sediment [...] culture - 01/29/17 16:40 Bacterial urine culture [id number] NRG COLONY COUNT 10,000/ML - 100,000/ML NRG FTX;REPORTABLE SENSITIVITY REPORTED 01/30 15:00 NRG Bacterial susceptibility panel - 01/29/17 16:40 Gentamicin susceptibility test by minimum inhibitory concentration <= NRG Trimethoprim/sulfamethoxazole susceptibility test by minimum inhibitoryconcentration >= NRG Ampicillin susceptibility test by minimum inhibitory concentration <= NRG Tobramycin susceptibility test by minimum inhibitory concentration <= NRG Cefazolin susceptibility test by minimum inhibitory concentration <= NRG Ceftriaxone susceptibility test by minimum inhibitory concentration <= NRG Ampicillin/sulbactam susceptibility test by minimum inhibitory concentration <= NRG Piperacillin/tazobactam susceptibility test by minimum inhibitory concentration <= NRG Ciprofloxacin susceptibility test by minimum inhibitory concentration <= NRG Meropenem susceptibility test by minimum inhibitory concentration <= NRG Nitrofurantoin susceptibility test by minimum inhibitory concentration <= NRG Aztreonam susceptibility test by minimum inhibitory concentration <= NRG Extended spectrum beta lactamase (ESBL) producing bacteria susceptibility test by minimum inhibitory concentration - [facility] [id number] - 04/04/17 18:15 Serum or plasma urea nitrogen measurement (mass/volume) 12 mg/dL 7-18 Serum or plasma creatinine measurement (mass/volume) 0.82 mg/dL 0.60-1.30 Serum or plasma urea nitrogen/creatinine mass ratio 15 NRG Serum or plasma creatinine measurement with calculation of estimated glomerular filtration rate > [facility] LIPID PANEL - 06/01/17 09:23 CHOLESTEROL, [...] Automated erythrocyte mean corpuscular hemoglobin concentration measurement (mass/volume) 33 g/dL 32-36 Automated erythrocyte distribution width ratio 12.8 % 10.0- 14.5 Automated blood platelet count (count/volume) 299 10*3/uL [...] Blood monocytes automated count (number/volume) 1.0 10*3 0.0- 1.0 Automated eosinophil count 0.3 10*3/uL 0.0-0.3 Automated [...] Serum or plasma aspartate aminotransferase measurement (enzymatic activity/volume) 22 U/L 5-34 Serum or plasma alanine aminotransferase measurement (enzymatic activity/volume) 10 U/L 0-55 Serum or plasma protein measurement (mass/volume) 6.9 g/dL 6.4-8.2 Serum or plasma albumin measurement (mass/volume) 3.9 g/dL 3.2-4.5 Complete urinalysis with reflex to culture - 09/07/17 19:50 Urine color determination YELLOW NRG Urine clarity determination CLEAR NRG Urine pH measurement by test strip 6.5 5-9 Specific gravity of urine by test strip 1.010 1.016-1.022 Urine protein assay by test strip, semi-quantitative [...] sediment leukocyte count by microscopy (number/high power field) [HPF] NRG Bacteria detection in urine sediment [...] culture - 09/07/17 19:50 Bacterial urine culture [id number] NRG COLONY COUNT 10,000/ML - 100,000/ML NRG [...] gravity of urine by test strip 1.015 1.016-1.022 Urine protein assay by test strip, semi-quantitative [...] sediment leukocyte count by microscopy (number/high power field) [HPF] NRG Bacteria detection in urine sediment [...] Automated erythrocyte mean corpuscular hemoglobin concentration measurement (mass/volume) 34 g/dL 32-36 Automated erythrocyte distribution width ratio 12.7 % 10.0- 14.5 Automated blood platelet count (count/volume) 287 10*3/uL [...] Blood monocytes automated count (number/volume) 1.0 10*3 0.0- 1.0 Automated eosinophil count 0.3 10*3/uL 0.0-0.3 Automated [...] Serum or plasma aspartate aminotransferase measurement (enzymatic activity/volume) 20 U/L 5-34 Serum or plasma alanine aminotransferase measurement (enzymatic activity/volume) 12 U/L 0-55 Serum or plasma protein [...] Automated erythrocyte mean corpuscular hemoglobin concentration measurement (mass/volume) 34 g/dL 32-36 Automated erythrocyte distribution width ratio 13.0 % 10.0- 14.5 Automated blood platelet count (count/volume) 303 10*3/uL [...] Blood monocytes automated count (number/volume) 0.8 10*3 0.0- 1.0 Automated eosinophil count 0.3 10*3/uL 0.0-0.3 Automated [...] Serum or plasma aspartate aminotransferase measurement (enzymatic activity/volume) 25 U/L 5-34 Serum or plasma alanine aminotransferase measurement (enzymatic activity/volume) 12 U/L 0-55 Serum or plasma protein measurement (mass/volume) 7.2 g/dL 6.4-8.2 Serum or plasma albumin measurement (mass/volume) 4.1 g/dL 3.2-4.5 Magnesium - 10/06/17 11:35 Magnesium 2.2 mg/dL 1.8-2.4 Serum or plasma troponin i.cardiac measurement (mass/volume) - 10/06/17 11:35 Serum or plasma troponin i.cardiac measurement (mass/volume) < ng/mL <0.30 Myoglobin, serum - 10/06/17 11:35 Myoglobin, serum 31.7 ng/mL 10.0-92.0 Fibrin D-dimer FEU measurement in platelet poor plasma (mass/volume) - 10/06/17 11:35 Fibrin D-dimer FEU measurement in platelet poor plasma (mass/volume) 0.46 ug/mL 0.00-0.49 Serum or plasma troponin i.cardiac measurement (mass/volume) - 10/06/17 17:35 Serum or plasma troponin i.cardiac measurement (mass/volume) < ng/mL <0.30 Serum or plasma troponin i.cardiac measurement (mass/volume) - 10/06/17 23:40 Serum or plasma troponin i.cardiac measurement (mass/volume) < ng/mL <0.30 Lipid 1996 panel - 10/07/17 06:15 Serum or plasma triglyceride measurement (mass/volume) 158 mg/dL <150 Serum or plasma cholesterol measurement (mass/volume) 172 mg/dL < 200 Serum or plasma cholesterol in HDL measurement (mass/volume) 43 mg/dL 40-60 Cholesterol in LDL [mass/volume] in serum or plasma by direct assay 103 mg/dL 1-129 Serum or plasma cholesterol in VLDL measurement (mass/volume) 32 mg/dL 5-40 Complete blood count (CBC) with automated white blood cell (WBC) differential - 03/07/18 18:40 Blood leukocytes automated count (number/volume) 10.0 10*3/uL 4.3-11.0 Blood erythrocytes automated count (number/volume) 3.90 10*6/uL 4.35-5.85 Venous blood hemoglobin measurement (mass/volume) 12.3 g/dL 11.5-16.0 Blood hematocrit (volume fraction) 36 % 35-52 Automated erythrocyte mean corpuscular volume 92 [foz_us] 80-99 Automated erythrocyte mean corpuscular hemoglobin (mass per erythrocyte) 32 pg 25-34 Automated erythrocyte mean corpuscular hemoglobin concentration measurement (mass/volume) 34 g/dL 32-36 Automated erythrocyte distribution width ratio 13.7 % 10.0- 14.5 Automated blood platelet count (count/volume) 329 10*3/uL 130-400 Automated blood platelet mean volume measurement 9.7 [foz_us] 7.4-10.4 Automated blood neutrophils/100 leukocytes 45 % 42-75 Automated blood lymphocytes/100 leukocytes 41 % 12-44 Blood monocytes/100 leukocytes 10 % 0-12 Automated blood eosinophils/100 leukocytes 3 % 0-10 Automated blood basophils/100 leukocytes 0 % 0-10 Blood neutrophils automated count (number/volume) 4.5 10*3 1.8-7.8 Blood lymphocytes automated count (number/volume) 4.1 10*3 1.0-4.0 Blood monocytes automated count (number/volume) 1.0 10*3 0.0- 1.0 Automated eosinophil count 0.3 10*3/uL 0.0-0.3 Automated blood basophil count (count/volume) 0.0 10*3/uL 0.0-0.1 Fibrin D-dimer FEU measurement in platelet poor plasma (mass/volume) - 03/07/18 18:40 Fibrin D-dimer FEU measurement in platelet poor plasma (mass/volume) 1.11 ug/mL 0.00-0.49 Comprehensive metabolic panel - 03/07/18 18:40 Serum or plasma sodium measurement (moles/volume) 136 mmol/L 135-145 Serum or plasma potassium measurement (moles/volume) 3.6 mmol/L 3.6-5.0 Serum or plasma chloride measurement (moles/volume) 107 mmol/L 98-107 Carbon dioxide 20 mmol/L 21-32 Serum or plasma anion gap determination (moles/volume) 9 mmol/L 5-14 Serum or plasma urea nitrogen measurement (mass/volume) 12 mg/dL 7-18 Serum or plasma creatinine measurement (mass/volume) 0.78 mg/dL 0.60-1.30 Serum or plasma urea nitrogen/creatinine mass ratio 15 NRG Serum or plasma creatinine measurement with calculation of estimated glomerular filtration rate > NRG Serum or plasma glucose measurement (mass/volume) 91 mg/dL 70-105 Serum or plasma calcium measurement (mass/volume) 9.5 mg/dL 8.5-10.1 Serum or plasma total bilirubin measurement (mass/volume) 0.2 mg/dL 0.1-1.0 Serum or plasma alkaline phosphatase measurement (enzymatic activity/volume) 97 U/L 40-136 Serum or plasma aspartate aminotransferase measurement (enzymatic activity/volume) 26 U/L 5-34 Serum or plasma alanine aminotransferase measurement (enzymatic activity/volume) 11 U/L 0-55 Serum or plasma protein measurement (mass/volume) 7.3 g/dL 6.4-8.2 Serum or plasma albumin measurement (mass/volume) 4.1 g/dL 3.2-4.5 CALCIUM CORRECTED 9.4 mg/dL 8.5-10.1 Complete blood count (CBC) with automated white blood cell (WBC) differential - 10/21/18 11:55 Blood leukocytes automated count (number/volume) 9.7 10*3/uL 4.3-11.0 Blood erythrocytes automated count (number/volume) 4.21 10*6/uL 4.35-5.85 Venous blood hemoglobin measurement (mass/volume) 12.9 g/dL 11.5-16.0 Blood hematocrit (volume fraction) 39 % 35-52 Automated erythrocyte mean corpuscular volume 93 [foz_us] 80-99 Automated erythrocyte mean corpuscular hemoglobin (mass per erythrocyte) 31 pg 25-34 Automated erythrocyte mean corpuscular hemoglobin concentration measurement (mass/volume) 33 g/dL 32-36 Automated erythrocyte distribution width ratio 13.3 % 10.0- 14.5 Automated blood platelet count (count/volume) 301 10*3/uL 130-400 Automated blood platelet mean volume measurement 9.8 [foz_us] 7.4-10.4 Automated blood neutrophils/100 leukocytes 63 % 42-75 Automated blood lymphocytes/100 leukocytes 25 % 12-44 Blood monocytes/100 leukocytes 10 % 0-12 Automated blood eosinophils/100 leukocytes 2 % 0-10 Automated blood basophils/100 leukocytes 0 % 0-10 Blood neutrophils automated count (number/volume) 6.1 10*3 1.8-7.8 Blood lymphocytes automated count (number/volume) 2.5 10*3 1.0-4.0 Blood monocytes automated count (number/volume) 0.9 10*3 0.0- 1.0 Automated eosinophil count 0.2 10*3/uL 0.0-0.3 Automated blood basophil count (count/volume) 0.0 10*3/uL 0.0-0.1 Complete urinalysis with reflex to culture - 10/21/18 11:55 Urine color determination YELLOW NRG Urine clarity determination CLEAR NRG Urine pH measurement by test strip 7 5-9 Specific gravity of urine by test strip 1.010 1.016-1.022 Urine protein assay by test strip, semi-quantitative [...] sediment leukocyte count by microscopy (number/high power field) [HPF] NRG Bacteria detection in urine sediment by light microscopy FEW NRG Squamous epithelial cells detection in urine sediment by light microscopy 5-10 NRG Crystals detection in urine sediment by light microscopy NONE NRG Casts detection in urine sediment by light microscopy NONE NRG Mucus detection in urine sediment by light microscopy NEGATIVE NRG Complete urinalysis with reflex to culture YES [facility] Comprehensive metabolic panel - 10/21/18 11:55 Serum or plasma sodium measurement (moles/volume) 140 mmol/L 135-145 Serum or plasma potassium measurement (moles/volume) 3.7 mmol/L 3.6-5.0 Serum or plasma chloride measurement (moles/volume) 110 mmol/L 98-107 Carbon dioxide 20 mmol/L 21-32 Serum or plasma anion gap determination (moles/volume) 10 mmol/L 5-14 Serum or plasma urea nitrogen measurement (mass/volume) 18 mg/dL 7-18 Serum or plasma creatinine measurement (mass/volume) 0.83 mg/dL 0.60-1.30 Serum or plasma urea nitrogen/creatinine mass ratio 22 NRG Serum or plasma creatinine measurement with calculation of estimated glomerular filtration rate > NRG Serum or plasma glucose measurement (mass/volume) 100 mg/dL 70-105 Serum or plasma calcium measurement (mass/volume) 9.7 mg/dL 8.5-10.1 Serum or plasma total bilirubin measurement (mass/volume) 0.2 mg/dL 0.1-1.0 Serum or plasma alkaline phosphatase measurement (enzymatic activity/volume) 96 U/L 40-136 Serum or plasma aspartate aminotransferase measurement (enzymatic activity/volume) 19 U/L 5-34 Serum or plasma alanine aminotransferase measurement (enzymatic activity/volume) 11 U/L 0-55 Serum or plasma protein measurement (mass/volume) 7.4 g/dL 6.4-8.2 Serum or plasma albumin measurement (mass/volume) 4.1 g/dL 3.2-4.5 CALCIUM CORRECTED 9.6 mg/dL 8.5-10.1 Bacterial urine culture - 10/21/18 11:55 Bacterial urine culture SEE REPORT NRG COLONY COUNT . NRG Encounters ACCT No. Visit Date/Time Discharge Status Pt. Type Provider Facility Loc./Unit Complaint [id number] 06/08/2017 11:24:39 06/08/2017 23:59:59 CLS Outpatient Rivers Sylvester [id number] 05/11/2017 10:44:41 05/11/2017 23:59:59 CLS Outpatient RiversSylvester [id number] 04/27/2017 10:27:27 04/27/2017 23:59:59 CLS Outpatient RiversSylvester gallardo [id number] 10/21/2018 11:43:00 10/21/2018 13:30:00 DIS Emergency GREY MCKEON APRN [facility] ER ABD PAIN [id number] 10/16/2018 15:46:00 10/16/2018 23:59:59 CLS Preadmit OTHER, UNLISTED [facility] SLEEP HYPERSOMNIA G47.10 [id number] 03/07/2018 17:40:00 03/07/2018 21:29:00 DIS Emergency KRISTYN VIGIL [facility] ER R KNEE RECENT SURG, FALL [id number] 02/23/2018 09:59:00 02/23/2018 23:59:59 CLS Outpatient BHUMIKA VELA, JOE Austin [facility] RAD HISTORY OF OSTEOPOROSIS,ADULT HEALTH MAINTENANCE [id number] 12/06/2017 15:20:00 12/06/2017 23:59:59 CLS Outpatient ANA MARIA SCHULTZ APRN [facility] RAD ACUTE PAIN OF RIGHT KNEE, RIGHT LEG PAIN [id number] 10/06/2017 12:47:00 10/07/2017 13:00:00 DIS Inpatient NIKOLAI VELA, KAITY Siddiqui [facility] 4TH CHEST PAIN [id number] 09/21/2017 14:20:00 09/21/2017 18:35:00 DIS Emergency GREY MCKEON APRN [facility] ER ABD PAIN [id number] 09/07/2017 18:45:00 09/07/2017 20:57:00 DIS Emergency GREY MCKEON APRN [facility] ER PAIN IN HEAD,NECK, AND LOWER BACK [id number] 06/29/2017 13:00:00 06/29/2017 13:47:00 DIS Outpatient RIVERS DO, SYLVESTER [facility] REHAB DYSPHAGIA; ALLODYNIA TO R LATERAL SHOULDER [id number] 06/06/2017 10:01:00 06/06/2017 23:59:59 CLS Outpatient RIVERS DO, SYLVESTER [facility] RAD DYSPHAGIA [id number] 04/04/2017 17:51:00 04/04/2017 23:59:59 CLS Outpatient FROYLAN VELA, JOSE MANUEL Lopes [facility] LAB PAIN IN RT UPPER ARM [id number] [id number] 03/15/2017 09:59:00 03/15/2017 23:59:59 CLS Outpatient JOE BAI MD [facility] RAD RT ARM PAIN [id number] 01/29/2017 15:46:00 01/29/2017 18:07:00 DIS Emergency ARUNA MARTINEZ MD [facility] ER SHARP SHOOTING PAINS IN HEAD,LIGHT- HEADED,PRESSURE [id number] 07/07/2016 10:54:00 07/07/2016 23:59:59 CLS Outpatient LEONID HIRSCH MD [facility] CARD CHEST PAIN [id number] 07/02/2016 23:10:00 07/03/2016 12:55:00 DIS Inpatient LEONID HIRSCH MD [facility] ICU CHEST PAIN [id number] 11/25/2015 10:15:00 11/25/2015 23:59:59 CLS Outpatient JOE BAI MD [facility] RAD SCREENING [id number] 07/24/2010 11:45:00 Document Registration [id number] 11/07/2018 08:00:00 11/07/2018 23:59:59 CLS Outpatient [facility] [id number] 09/15/2017 11:40:00 Document Registration [id number] 06/01/2017 09:00:00 Document Registration
== END 2018-11-16 11:11 | disposition home or self-care (01) ==
LOC: EDUNIT# 10:06 → ER 10:07
DX: M16.11 Unilateral primary osteoarthritis, right hip (principal); R60.0 Localized edema; J45.909 Unspecified asthma, uncomplicated; G43.909 Migraine, unspecified, not intractable, without status migrainosus; K21.9 Gastro-esophageal reflux disease without esophagitis; K58.9 Irritable bowel syndrome, unspecified; M79.7 Fibromyalgia; E03.9 Hypothyroidism, unspecified; F41.9 Anxiety disorder, unspecified; F32.9 Major depressive disorder, single episode, unspecified; Z87.19 Personal history of other diseases of the digestive system; Z88.0 Allergy status to penicillin; Z88.5 Allergy status to narcotic agent; Z82.49 Family history of ischemic heart disease and other diseases of the circulatory system; Z88.8 Allergy status to other drugs, medicaments and biological substances; Z79.82 Long term (current) use of aspirin; Z87.891 Personal history of nicotine dependence; Z90.49 Acquired absence of other specified parts of digestive tract; Z90.89 Acquired absence of other organs; Z98.890 Other specified postprocedural states
CPT/HCPCS: 96372

== ENCOUNTER 2018-11-21 19:51 | Outpatient (CLI) | payer MEDICARE, MEDICAID | END 2018-11-22 05:45 | disposition home or self-care (01) | LOC: SLEEP 19:51 | PROVIDERS: ATTEND Nurse Practitioner Psychiatric/Mental Health | DX: G47.10 Hypersomnia, unspecified (principal); R06.83 Snoring | CPT/HCPCS: 95810 ==

== ENCOUNTER 2019-03-09 11:22 | Outpatient (RCR) | payer MEDICARE, MEDICAID ==
[~2019-03-09 11:22] MED LIST changes: -TIZA4TAB3 PO; +TIZA4TAB4 PO
== END 2019-03-09 13:21 | disposition home or self-care (01) ==
PROVIDERS: ATTEND Orthopaedic Surgery
DX: M94.261 Chondromalacia, right knee (principal)

== ENCOUNTER → 2019-05-28 | Outpatient (CLI) | payer MEDICARE, MEDICAID ==
--- NOTE | 2019-05-28 13:51 | Diagnostic Imaging Report ---
PROCEDURE: CT chest without contrast. TECHNIQUE: Multiple contiguous axial images were obtained through the chest without the use of intravenous contrast. Auto Exposure Controls were utilized during the CT exam to meet ALARA standards for radiation dose reduction. INDICATION: Chest discomfort. FINDINGS: There are no discrete pulmonary nodules, masses, or infiltrates. There is no pleural or pericardial fluid. There is no pneumothorax. There is no pathologically enlarged adenopathy in the chest. Thoracic aorta is normal in caliber. Heart size is normal. The visualized intra-abdominal structures are unremarkable. There is mild thoracic spondylosis. IMPRESSION: No acute cardiopulmonary abnormality in the chest. Mild thoracic spondylosis. Dictated by: Dictated on workstation # [id number]
== END ==
LOC: RAD 12:37
PROVIDERS: ATTEND Internal Medicine
DX: R07.9 Chest pain, unspecified (principal)
CPT/HCPCS: 71250

== ENCOUNTER 2019-06-29 09:10 | Outpatient (RCR) | payer MEDICARE, MEDICAID ==
[~2019-06-29 09:10] MED LIST changes: -HYDR-3816 PO
[2019-09-02] MEDS ORDERED: ONDA4TAB11 PO (10:31)
[2019-09-02] MEDS ORDERED: SULF1TAB35 PO (10:31)
== END 2019-09-27 | disposition home or self-care (01) ==
LOC: CARD 09:10
PROVIDERS: ATTEND Internal Medicine Interventional Cardiology
DX: R07.2 Precordial pain (principal); E66.9 Obesity, unspecified; R00.2 Palpitations
CPT/HCPCS: 93306

== ENCOUNTER → 2019-07-05 | Outpatient (CLI) | payer MEDICARE, MEDICAID ==
[~2019-07-05] VITALS: Ht 157 cm; Wt 97.0 kg
[~2019-07-05] MED LIST changes: +CATHETER FLUSH 10 ML SYR IV PRN; +HYDR-3816 PO; +REGADENOSON 0.4 MG/5 ML SYR (LEXISCAN) IV ONE
[2019-07-09 17:03] VITALS: BP 140/94
--- NOTE | 2019-07-09 17:03 | Cardiology Stress Test Report ---
Stress Test Report Type of NM Stress Test: Test Type: LEXISCAN 0.4MG/5ML Date of Procedure/Referring: Date of Procedure: Jul 05, 2019 PCP Moses Escobar MD Admitting Physician Carlos Garcia MD Indications: Palpitations, chest pain. Baseline Heart Rate: 66 Baseline Blood Pressure: Blood Pressure Systolic: 140 Blood Pressure Diastolic: 94 Baseline EKG: Baseline EKG: sinus rhythm Summary & Conclusion: Summary: The patient was brought to the stress lab after informed consent was taken. Stress test was performed according to the Lexiscan protocol. 0.4 mg of IV Lexiscan was given. Low-grade exercise was performed. Baseline EKG showed sinus rhythm at 66 BPM. Initial blood pressure 140/94 mmHg. Maximum heart rate of 79 bpm and blood pressure 144/79 mmHg. Patient did not have any chest pain, arrhythmias during the stress test. Possible ST depressions in leads 2,3, aVF. 10.94 mCi of Myoview were given for rest imaging and 33 mCi of Myoview given for stress imaging. Transient ischemic dilatation score 1.08, EF 74 percent. Normal wall motion. Normal myocardial perfusion imaging during rest and stress. Conclusion: Pharmacological stress test was negative for ischemia. Normal LV function with no wall motion abnormalities. Normal myocardial perfusion imaging during rest and stress. Moses ESCOBAR MD Jul 09, 2019 17:03
== END ==
LOC: CARD 08:03
PROVIDERS: ATTEND Internal Medicine Interventional Cardiology
DX: E66.9 Obesity, unspecified (principal); R00.2 Palpitations; R07.2 Precordial pain
CPT/HCPCS: 78452; 93017

== ENCOUNTER → 2019-07-26 | Outpatient (CLI) | payer MEDICARE, MEDICAID ==
[~2019-07-26] MED LIST changes: -CATHETER FLUSH 10 ML SYR IV PRN; +HOLD METFORMIN - RECEIVED CONTRAST 20 ML VIAL IV SCH; +IOHEXOL 350 MG/ML 100 ML (OMNIPAQUE 350) VIAL IV ONE; +NS 100 ML (IVPB) BAG IV ONE; -REGADENOSON 0.4 MG/5 ML SYR (LEXISCAN) IV ONE
--- NOTE | 2019-07-26 10:06 | Diagnostic Imaging Report ---
PROCEDURE: CT angiography of the head with and without contrast. TECHNIQUE: Noncontrast CT of the head was obtained. Subsequently, after intravenous administration of contrast, thin section axial CT angiography of the head was performed. Source data was reformatted into multiple MIP reformats. Delayed postcontrast acquisition of the head was also acquired. Auto Exposure Controls were utilized during the CT exam to meet ALARA standards for radiation dose reduction. INDICATION: Severe headache. No prior studies are available for comparison. Precontrast portion of the study demonstrates ventricles and sulci to be within normal limits. No sulcal effacement or midline shift is identified. No acute intra-axial or extra-axial hemorrhage is seen. Mild periventricular white matter changes are noted, perhaps on the basis of chronic microvascular ischemia. Cisterns are patent. There is some fluid in the right maxillary sinus. A delayed postcontrast imaging through the brain shows no enhancing lesion. CT angiographic portion of the exam demonstrates distal internal carotid arteries to be patent. The middle cerebral, anterior cerebral and posterior cerebral arteries are patent. Basilar artery is unremarkable. No definite aneurysm or intracranial stenosis is seen. No vascular malformation is seen. IMPRESSION: 1. Unremarkable CT angiogram of the brain. No definite aneurysm is detected. 2. Right maxillary sinusitis. Dictated by: Dictated on workstation # [id number]
== END ==
LOC: RAD 07:54
PROVIDERS: ATTEND Pediatrics
DX: G44.82 Headache associated with sexual activity (principal); J32.0 Chronic maxillary sinusitis
CPT/HCPCS: 70496

== ENCOUNTER 2019-09-02 08:41 | Emergency (ER) | payer MEDICARE, MEDICAID ==
[~2019-09-02] VITALS: Ht 157.4 cm; Wt 91.1 kg
[~2019-09-02 08:41] MED LIST changes: -HOLD METFORMIN - RECEIVED CONTRAST 20 ML VIAL IV SCH; -HYDR-3816 PO; -IOHEXOL 350 MG/ML 100 ML (OMNIPAQUE 350) VIAL IV ONE; -NS 100 ML (IVPB) BAG IV ONE
[2019-09-02 08:59] LABS: BILIRUBIN,URINE NEGATIVE (NEGATIVE); CLARITY,URINE CLEAR; COLOR,URINE ORANGE; GLUCOSE, URINE (UA) TRACE (NEGATIVE); KETONES,URINE NEGATIVE (NEGATIVE); LEUKOCYTE ESTERASE ,URINE 1+ (NEGATIVE); NITRITE,URINE POSITIVE (NEGATIVE); PROTEIN,URINE TRACE (NEGATIVE)
[2019-09-02] MEDS ORDERED: KETOROLAC 30 MG/ML VIAL IVP ONE (09:00)
[2019-09-02] MEDS ORDERED: ONDANSETRON 4 MG/2 ML (SDV) Z0FRAN IVP ONE (09:00)
--- NOTE | 2019-09-02 09:04 | ED Back Pain ---
General Chief Complaint: - Urinary Stated Complaint: BACK / ABD PAIN Source of Information: Patient, Other (bf) Exam Limitations: No Limitations History of Present Illness Date Seen by Provider: Sep 02, 2019 Time Seen by Provider: 08:45 Initial Comments The patient presents to ER by private conveyance with her significant other and chief complaint of 6 weeks of progressively worsening back pain. She would take AZO for a couple days and it would get better. She would have some discomfort with urination. Finally a week ago she decided to go to the doctor's office at the [facility] and was put on an antibiotic. She took that for the past 5 days and then because her symptoms are worsening she went back yesterday to [facility] and was switched to Bactrim. Now she's having some nausea and poor appetite. She uses hydrocodone for her back pain, reflex sympathetic dystrophy, fibromyalgia and this is not helping her back pain. She says this feels different from her normal chronic back pain is stabbing, constant and radiates to bilateral groins. It is not one side more than the other. 11/27. She has no history of kidney stones or kidney disease. She seen no hematuria. She's having nausea today. Yesterday she was told that her urinalysis grew out Escherichia coli. Allergies and Home Medications Allergies Coded Allergies: Penicillins (Unverified Allergy, Intermediate, HIVES, 07/24/10) meperidine (Unverified Allergy, Intermediate, HIVES, 07/24/10) codeine (Unverified Allergy, Mild, PALPITATIONS, 07/24/10) baclofen (Unverified Adverse Reaction, Unknown, dizzy, nausea, 09/07/17) divalproex sodium (Unverified Adverse Reaction, Unknown, 09/07/17) metaxalone (Unverified Adverse Reaction, Unknown, "bad for me", 09/07/17) methocarbamol (Unverified Adverse Reaction, Unknown, HOSTILE/AGGRESSION, 07/02/16) tizanidine (Unverified Adverse Reaction, Unknown, drowsy, 09/07/17) Home Medications Aspirin/Acetaminophen/Caffeine 1 Each Tablet, 1 TAB PO BID PRN for MIGRAINE, (Reported) Butalbital/Aspirin/Caffeine 1 Each Capsule, 1 TAB PO DAILY PRN for MIGRAINE, (Reported) Hydrocodone Bit/Acetaminophen 1 Each Tablet, 1 TAB PO TID PRN for PAIN-MODERATE, (Reported) Hydrocodone/Acetaminophen 1 Each Tablet, 1 TAB PO Q4-6HR Prescribed by: GREY MCKEON on 10/21/181307 Hydroxyzine HCl 10 Mg Tablet, 10 MG PO TID PRN for ANXIETY, (Reported) Levothyroxine Sodium 75 Mcg Tablet, 75 MCG PO DAILY, (Reported) Mag Hydrox/Al Hydrox/Simeth 30 Ml Oral.susp, 30 ML PO QID PRN for INDIGESTION, (Reported) Nitrofurantoin Monohyd/M-Cryst 100 Mg Capsule, 1 TAB PO BID Prescribed by: GREY MCKEON on 10/21/181307 Orphenadrine Citrate 100 Mg Tablet.er, 100 MG PO BID, (Reported) Pantoprazole Sodium 40 Mg Tablet.dr, 40 MG PO DAILY, (Reported) Sucralfate 1 Gm Tablet, 1 GM PO TIDAC, (Reported) Tizanidine HCl 4 Mg Tablet, 4 MG PO TID PRN for MUSCLE SPASMS, (Reported) Topiramate 200 Mg Tablet, 200 MG PO BID, (Reported) Vortioxetine Hydrobromide 5 Mg Tablet, 5 MG PO DAILY, (Reported) Patient Home Medication List Home Medication List Reviewed: Yes Review of Systems Constitutional: No chills, No diaphoresis, No fever EENTM: No hearing loss, No ear pain Respiratory: No cough, No short of breath Cardiovascular: No chest pain, No edema Gastrointestinal: abdominal pain, nausea; No vomiting Genitourinary: No discharge, No dysuria Musculoskeletal: see HPI, back pain; No joint pain Skin: No pruritus, No rash All Other Systems Reviewed Negative Unless Noted: Yes Past Wditrzr-Savmuh-Ojsgqq Hx Patient Social History Alcohol Use: Denies Use Recreational Drug Use: No Smoking Status: Former Smoker Type Used: Cigarettes 2nd Hand Smoke Exposure: No Recent Foreign Travel: No Contact w/Someone Who Travel: No Recent Hopitalizations: No Immunizations Up To Date PED Vaccines UTD: No Date of Pneumonia Vaccine: Apr 02, 2013 Date of Influenza Vaccine: Apr 01, 2016 Seasonal Allergies Seasonal Allergies: No Past Medical History Surgeries: Yes Abdominal, Appendectomy, Bowel Surgery, Section, Gallbladder, Neurological, Orthopedic, Tonsillectomy Respiratory: Yes Asthma Currently Using CPAP: No Currently Using BIPAP: No Cardiac: Yes (" THEY THINK IT'S FROM ANXIETY.") Angina Neurological: Yes Headaches /Migraines Female Reproductive Disorders: Denies IS MANAGER History: Menopausal Sexually Transmitted Disease: No HIV/AIDS: No Genitourinary: No Gastrointestinal: Yes Gastroesophageal Reflux, Chronic Constipation, Chronic Diarrhea, Ulcer, Irritable Bowel Musculoskeletal: Yes (CHRONIC NECK PAIN; RSD) Fibromyalgia, Chronic Back Pain Endocrine: Yes (HYPOGLYCEMIC) Hypothyroidsim HEENT: Yes (Vision changes in right eye, 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 ear.) Loss of Vision: Right Hearing Impairment: Deaf Cancer: No Did You Recieve Any Treatments: No Psychosocial: Yes Anxiety, Depression Integumentary: No Blood Disorders: No Adverse Reaction/Blood Tranf: No Family Medical History Congenital heart disease Diabetes mellitus G8 BROTHER, Onset:Unknown Irregular heart beat 19 FATHER, , Onset:Unknown G8 SISTER, Onset:Unknown Myocardial infarction G8 BROTHER, Onset:Unknown Heart Disease, CAD Over 55 Years Old, Diabetes Physical Exam Vital Signs Vital Signs - First Documented 09/02/19 08:46 Temp 36.8 Pulse 90 Resp 16 B/P (MAP) 164/87 (112) Pulse Ox 93 O2 Delivery Room Air Capillary Refill : Height, Weight, BMI Height: 5'1.00" Weight: 225lbs. 1.0oz. 102.746079fz; 39.35 BMI Method:Stated General Appearance: WD/WN, Mild Distress HEENT: PERRL/EOMI, Pharynx Normal, Moist Mucous Membranes Neck: Full Range of Motion, Normal Inspection, Non Tender Cardiovascular: Regular Rate, Rhythm, Normal Peripheral Pulses Respiratory: Lungs Clear, Normal Breath Sounds, No Accessory Muscle Use, No Respiratory Distress Gastrointestinal: Normal Bowel Sounds, Non Tender, Soft Back: CVA Tenderness (L), CVA Tenderness (R), Vertebral Tenderness (midline and bilateral paraspinous lumbar) Extremity: Normal Capillary Refill, Normal Inspection, No Pedal Edema Neurologic/Psychiatric: Alert, Oriented x3 Skin: Normal Color, Warm/Dry Progress/Results/Core Measures Results/Orders Lab Results Laboratory Tests Test 09/02/19 08:47 09/02/19 09:10 Range/Units Urine Color ORANGE Urine Clarity CLEAR Urine pH 5.0 5-9 Urine Specific [place] <=1.005 1.016-1.022 Urine Protein TRACE H NEGATIVE Urine Glucose (UA) TRACE H NEGATIVE Urine Ketones NEGATIVE NEGATIVE Urine Nitrite POSITIVE H NEGATIVE Urine Bilirubin NEGATIVE NEGATIVE Urine Urobilinogen 4.0 < = 1.0 MG/DL Urine Leukocyte Esterase 1+ H NEGATIVE Urine RBC (Auto) NEGATIVE NEGATIVE Urine RBC NONE /HPF Urine WBC 2-5 /HPF Urine Squamous Epithelial Cells 0-2 /HPF Urine Crystals NONE /LPF Urine Bacteria TRACE /HPF Urine Casts NONE /LPF Urine Mucus NEGATIVE /LPF Urine Culture Indicated YES White Blood Count 7.6 4.3-11.0 10^3/uL Red Blood Count 4.25 L 4.35-5.85 10^6/uL Hemoglobin 12.9 11.5-16.0 G/DL Hematocrit 40 35-52 % Mean Corpuscular Volume 93 80-99 FL Mean Corpuscular Hemoglobin 30 25-34 PG Mean Corpuscular Hemoglobin Concent 33 32-36 G/DL Red Cell Distribution Width 15.2 H 10.0-14.5 % Platelet Count 264 130-400 10^3/uL Mean Platelet Volume 10.2 7.4-10.4 FL Neutrophils (%) (Auto) 57 42-75 % Lymphocytes (%) (Auto) 29 12-44 % Monocytes (%) (Auto) 8 0-12 % Eosinophils (%) (Auto) 5 0-10 % Basophils (%) (Auto) 0 0-10 % Neutrophils # (Auto) 4.3 1.8-7.8 X 10^3 Lymphocytes # (Auto) 2.2 1.0-4.0 X 10^3 Monocytes # (Auto) 0.6 0.0-1.0 X 10^3 Eosinophils # (Auto) 0.4 H 0.0-0.3 10^3/uL Basophils # (Auto) 0.0 0.0-0.1 10^3/uL Sodium Level 136 135-145 MMOL/L Potassium Level 3.8 3.6-5.0 MMOL/L Chloride Level 109 H 98-107 MMOL/L Carbon Dioxide Level 17 L 21-32 MMOL/L Anion Gap 10 5-14 MMOL/L Blood Urea Nitrogen 11 7-18 MG/DL Creatinine 0.88 0.60-1.30 MG/DL Estimat Glomerular Filtration Rate > 60 BUN/Creatinine Ratio 13 Glucose Level 105 70-105 MG/DL Calcium Level 9.0 8.5-10.1 MG/DL Corrected Calcium 8.8 8.5-10.1 MG/DL Total Bilirubin 0.2 0.1-1.0 MG/DL Aspartate Amino Transf (AST/SGOT) 22 5-34 U/L Alanine Aminotransferase (ALT/SGPT) 8 0-55 U/L Alkaline Phosphatase 65 40-136 U/L Total Protein 7.1 6.4-8.2 GM/DL Albumin 4.2 3.2-4.5 GM/DL My Orders Orders - SANDRO DE LA ROSA Ua Culture If Indicated (09/02/19 08:43) Ed Iv/Invasive Line Start (09/02/19 08:58) Cbc With Automated Diff (09/02/19 08:58) Comprehensive Metabolic Panel (09/02/19 08:58) Ondansetron Injection (Zofran Injectio (09/02/19 09:00) Ketorolac Injection (Toradol Injection) (09/02/19 09:00) Urine Culture (09/02/19 08:47) Ct Abdomen/Pelvis Wo (09/02/19 09:45) Fentanyl Injection (Sublimaze Injection (09/02/19 10:00) Ceftriaxone For Iv Use (Rocephin For I (09/02/19 10:00) Medications Given in ED Current Medications Medications Dose Ordered Sig/Emily Route Start Time Stop Time Status Last Admin Dose Admin Ceftriaxone Sodium 1000 mg/ Sterile Water 10 ml @ 200 mls/hr ONCE ONCE IV 09/02/19 10:00 09/02/19 10:02 DC 09/02/19 10:11 200 MLS/HR Fentanyl Citrate 50 mcg ONCE ONCE IVP 09/02/19 10:00 09/02/19 10:01 DC 09/02/19 10:04 50 MCG Ketorolac Tromethamine 30 mg ONCE ONCE IVP 09/02/19 09:00 09/02/19 09:01 DC 09/02/19 09:14 30 MG Ondansetron HCl 4 mg ONCE ONCE IVP 09/02/19 09:00 09/02/19 09:01 DC 09/02/19 09:12 4 MG Vital Signs/I&O 09/02/19 08:46 Temp 36.8 Pulse 90 Resp 16 B/P (MAP) 164/87 (112) Pulse Ox 93 O2 Delivery Room Air Progress Progress Note #1: Time: 09:03 Progress Note Aseptic appearance and vital signs. Benign, nontender abdomen. She's having some bilateral costovertebral angle tenderness. UTIs certain a possibility. Kidney stones to be thought about. Plan to get urine and labs. We'll give her some Toradol and Zofran for her symptoms. Progress Note #2: Time: 09:49 Progress Note Approximately 25 minutes after menstruation Toradol patient states that she has not received any pain relief. She is sitting with a serene appearance. There are nitrites in the urine consistent with a bladder infection. It is less likely that she has a kidney stone however after 6 weeks of pain and one week of antibiotics it is probably reasonable to get a scan. We have offered it and she has agreed to this plan. Diagnostic Imaging Diagonstic Imaging: CT (without IV contrast) Plain Films/CT/US/NM/MRI: abdomen, pelvis Comments NAME: KARLA MURRAY [facility] REC#: [id number] PT STATUS: REG ER : 1955 PHYSICIAN: SANDRO DE LA ROSA MD ADMIT DATE: 09/02/19/ER Draft Date of Exam:09/02/19 CT ABDOMEN/PELVIS WO PROCEDURE: CT abdomen and pelvis without contrast. TECHNIQUE: Multiple contiguous axial images were obtained through the abdomen and pelvis without the use of intravenous contrast. Auto Exposure Controls were utilized during the CT exam to meet ALARA standards for radiation dose reduction. INDICATION: Low back pain for 6 weeks. COMPARISON is made with prior CT from 10/21/2018. The lung bases are clear. A small low-density left lobe of the liver appears to be stable and suggestive of a cyst. The gallbladder is surgically absent. No biliary ductal dilatation is seen. The pancreas and spleen are unremarkable. No adrenal mass is detected. No definite renal calculi or hydronephrosis is identified. No ureteral calculi are detected. Aorta is non-aneurysmal. The small and large bowel loops are normal caliber. No obstruction is identified. There is no free fluid or fluid collection identified. Bladder is unremarkable. Bony structures are nonacute. IMPRESSION: Stable CT abdomen and pelvis when compared with study from 10/21/2018. No acute feature is detected. No urinary tract calculi or obstruction is identified. Dictated on workstation # [id number] Dict: 09/02/19 1005 Trans: 09/02/19 1010 [facility] [id number] Interpreted by: MAYUR WAHL MD Electronically signed by: Reviewed: Reviewed by Me Departure Impression Primary Impression: Urinary tract infection Qualified Codes: N10 - Acute pyelonephritis Disposition: 01 HOME, SELF-CARE Condition: Stable Departure-Patient Inst. Decision time for Depature: 10:20 Referrals: JOE BAI MD (PCP/Family) Primary Care Physician Patient Instructions: Urinary Tract Infection, Adult (DC) Add. Discharge Instructions: Drink lots of fluids. Tylenol and ibuprofen as necessary for pain. Bactrim one capsule twice a day for the next 7 days. Zofran ODT 1-2 tablets under the tongue every 6 hours as needed for nausea or vomiting. Plan follow-up with primary care provider next week if you're not seeing improvement over the next 3 days. All discharge instructions reviewed with patient and/or family. Voiced understanding. Scripts Ondansetron (Ondansetron Odt) 4 Mg Tab.rapdis 4-8 MG PO Q6H PRN for NAUSEA/VOMITING, #20 TAB 0 Refills Prov: SANDRO DE LA ROSA 09/02/19 Sulfamethoxazole/Trimethoprim (Bactrim Ds Tablet) 1 Each Tablet 1 EACH PO BID for 4 Days, #8 TAB 0 Refills Prov: SANDRO DE LA ROSA 09/02/19 SANDRO DE LA ROSA Sep 02, 2019 09:04
[2019-09-02 09:09] LABS: BACTERIA,URINE TRACE /HPF; SQUAMOUS EPITHELIAL CELL,UR 0-2 /HPF
[2019-09-02 09:26] LABS: BASOPHILS % (AUTO) 0 % (0-10); EOSINOPHILS # (AUTO) 0.4 10^3/uL (0.0-0.3); EOSINOPHILS % (AUTO) 5 % (0-10); HEMATOCRIT 40 % (35-52); HEMOGLOBIN 12.9 G/DL (11.5-16.0); LYMPHOCYTES # (AUTO) 2.2 X 10^3 (1.0-4.0); LYMPHOCYTES % (AUTO) 29 % (12-44); MEAN CORPUSCULAR HEMOGLOBIN 30 PG (25-34); MEAN CORPUSCULAR HGB CONC 33 G/DL (32-36); MEAN CORPUSCULAR VOLUME 93 FL (80-99); MEAN PLATELET VOLUME 10.2 FL (7.4-10.4); MONOCYTES # (AUTO) 0.6 X 10^3 (0.0-1.0); MONOCYTES % (AUTO) 8 % (0-12); NEUTROPHILS # (AUTO) 4.3 X 10^3 (1.8-7.8); NEUTROPHILS % (AUTO) 57 % (42-75); PLATELET COUNT 264 10^3/uL (130-400); RED CELL DISTRIBUTION WIDTH 15.2 % (10.0-14.5); WHITE BLOOD COUNT 7.6 10^3/uL (4.3-11.0)
[2019-09-02 09:46] LABS: ALANINE AMINOTRANSFERASE 8 U/L (0-55); ALBUMIN 4.2 GM/DL (3.2-4.5); ALKALINE PHOSPHATASE 65 U/L (40-136); BILIRUBIN,TOTAL 0.2 MG/DL (0.1-1.0); BUN/CREATININE RATIO 13; CARBON DIOXIDE 17 MMOL/L (21-32); CHLORIDE 109 MMOL/L (98-107); CREATININE SERUM 0.88 MG/DL (0.60-1.30); GFR ESTIMATED > 60; GLUCOSE 105 MG/DL (70-105); POTASSIUM 3.8 MMOL/L (3.6-5.0); SODIUM 136 MMOL/L (135-145); TOTAL PROTEIN 7.1 GM/DL (6.4-8.2)
[2019-09-02] MEDS ORDERED: fentaNYL INJECTION 100 MCG/2 ML AMP IVP ONE (10:00)
[2019-09-02] MEDS ORDERED: cefTRIAXone FOR IV USE 1,000 MG in WATER (STERILE) FOR INJECTION 10 ML IV ONE (10:00)
--- NOTE | 2019-09-02 10:10 | Diagnostic Imaging Report ---
PROCEDURE: CT abdomen and pelvis without contrast. TECHNIQUE: Multiple contiguous axial images were obtained through the abdomen and pelvis without the use of intravenous contrast. Auto Exposure Controls were utilized during the CT exam to meet ALARA standards for radiation dose reduction. INDICATION: Low back pain for 6 weeks. COMPARISON is made with prior CT from 10/21/2018. The lung bases are clear. A small low-density left lobe of the liver appears to be stable and suggestive of a cyst. The gallbladder is surgically absent. No biliary ductal dilatation is seen. The pancreas and spleen are unremarkable. No adrenal mass is detected. No definite renal calculi or hydronephrosis is identified. No ureteral calculi are detected. Aorta is non-aneurysmal. The small and large bowel loops are normal caliber. No obstruction is identified. There is no free fluid or fluid collection identified. Bladder is unremarkable. Bony structures are nonacute. IMPRESSION: Stable CT abdomen and pelvis when compared with study from 10/21/2018. No acute feature is detected. No urinary tract calculi or obstruction is identified. Dictated by: Dictated on workstation # [id number]
[2019-09-02] MEDS ORDERED: ONDA4TAB11 PO (10:31)
[2019-09-02] MEDS ORDERED: SULF1TAB35 PO (10:31)
[2019-09-02 10:40] VITALS: BP 124/57
--- OUTSIDE RECORDS SUMMARY | 2019-09-02 23:56 | XMS REPORT | Encounter Summary ---
Author Author [facility] Organization [facility] Address Unknown Phone Unavailable Care Team Providers Care Patient Service Rep Name Role Phone PCP Unavailable Encounter Details Care Team Description Date Type Department Antony Pineda MD [address] [facility] [address] [place] [address] [phone] 04/10/2012 [facility] Visit Social History Date Tobacco Use Types Packs/Day Years Used Never Assessed Sex Assigned at Date Recorded Not on file Industry Job Start Date Occupation Not on file Not on file Not on file Travel End Travel History Travel Start No recent travel history available. documented as of this encounter Progress Notes * Antony Pineda MD - 04/10/2012 10:54 AM CDT [place] [facility] [address] [place] [address] 04/19/2012 WILMER RODRIGUEZ MD [address] [place] [id number] Re: VENESSA PRESCOTT : 1955 Chart#: [id number] Dear Dr. RODRIGUEZ: This is a followup note regarding VENESSA PRESCOTT. She has completed her cardiac t esting and I am writing to share the results with you. She had the following tests: CTA of coronary arteries: 1. No evidence of coronary artery calcification. The Agatston score is zero. 2. The coronary arteries arise in a normal fashion from the ascending aorta with out evidence of a coronary anomaly or myocardial bridging. The coronary arteries appear free of atherosclerosis. 3. Mild calcification noted in the thoracic aorta. Based on the above, I am recommending the following: - no new recommendations Follow up is requested as planned. These test results along with my recommendations have been communicated to MIHAELA PRESCOTT. I hope this information is useful to you. If you should have any ques tions or concerns, please do not hesitate to contact me. Sincerely, Antony Pineda M.D. documented in this encounter Plan of Treatment Not on filedocumented as of this encounter Visit Diagnoses Not on filedocumented in this encounter
--- OUTSIDE RECORDS SUMMARY | 2019-09-02 23:56 | XMS REPORT | Encounter Summary ---
Author Author [facility] Organization [facility] Address Unknown Phone Unavailable Care Team Providers Care Refining Still Operator Name Role Phone PCP Unavailable Encounter Details Care Team Description Date Type Department [facility] Provider, MD Radha 04/06/2012 [facility] Result Social History Date Tobacco Use Types Packs/Day Years Used Never Assessed Sex Assigned at Date Recorded Not on file Industry Job Start Date Occupation Not on file Not on file Not on file Travel End Travel History Travel Start No recent travel history available. documented as of this encounter Plan of Treatment Not on filedocumented as of this encounter Procedures Comments Procedure Name Priority Date/Time Associated Diag nosis CV CT ANGIO HISTORICAL Routine 04/06/2012 documented in this encounter Results * CV CT Angio historical (04/06/2012) Specimen Narrative Performed At Procedure Category: CTA NEXTGEN Procedure: CTA of Coronary Arteries Procedure Summary: 1. No evidence of co ronary artery calcification. The Agatston score is zero. 2. The coronary arteries arise in a normal fashion from the ascending aorta without evidence of a c oronary anomaly or myocardial bridging. The coronary arteries appear free of atherosclerosis .3. Mild calcification noted in the thoracic aorta. Procedure Note Interface, Rad Conversion - 01/07/2015 6:34 PM CDT Procedure Category: CTA Procedure: CTA of Coronary Arteries Procedure Summary: 1. No evidence of coronary artery calcification. The Agatston score is zero. 2. The coronary arteries arise in a normal fashion from the ascending aorta without evidence of a coronary anomaly or myocardial bridging. The coronary arteries appear free of atherosclerosis.3. Mild calcification noted in the thoracic aorta. Performing Organization Address City/State/Zipcode Ph one Number NEXTGEN documented in this encounter Visit Diagnoses Not on filedocumented in this encounter
--- OUTSIDE RECORDS SUMMARY | 2019-09-02 23:56 | XMS REPORT | Encounter Summary ---
Author Author [facility] Organization [facility] Address Unknown Phone Unavailable Care Team Providers Care Advanced Manufacturing Vice President Name Role Phone PCP Unavailable Encounter Details Care Team Description Date Type Department [facility] Provider, MD Radha 03/17/2012 [facility] Social History Date Tobacco Use Types Packs/Day [...] Procedure Name Priority Date/Time Associated Diag nosis ECHO EJECTION FRACTION Routine 03/17/2012 HISTORICAL 4:29 PM CDT documented in this encounter Results * Echo Ejection Fraction historical (03/17/2012 4:29 PM CDT) Ejection 65Comment: Echo PROSOLV Fraction Specimen Performing Organization Address [facility] Number PROSOLV documented in this encounter Visit Diagnoses Not on filedocumented in this encounter
--- OUTSIDE RECORDS SUMMARY | 2019-09-02 23:56 | XMS REPORT | Encounter Summary ---
Author Author [facility] Organization [facility] Address Unknown Phone Unavailable Care Team Providers Care Appraiser Oil And [employer] Name Role Phone PCP Unavailable Encounter Details Care Team Description Date Type Department Antony Pineda MD [address] [place] [address] [phone] 03/16/2012 [facility] Visit Social History Date Tobacco Use Types Packs/Day Years Used Never Assessed Sex Assigned at Date Recorded Not on file Industry Job Start Date Occupation Not on file Not on file Not on file Travel End Travel History Travel Start No recent travel history available. documented as of this encounter Last Filed Vital Signs Reading Time Taken Comments Vital Sign 104/80 03/16/2012 9:45 AM CDT Blood Pressure 64 03/16/2012 9:45 AM CDT Pulse - - Temperature - - Respiratory Rate - - Oxygen Saturation - - Inhaled Oxygen Concentration 94.3 kg (208 lb) 03/16/2012 9:45 AM CDT obese Weight 157.5 cm (5' 2") 03/16/2012 9:45 AM CDT Height 38.04 03/16/2012 9:45 AM CDT Body Mass Index documented in this encounter Progress Notes * Antony Pineda MD - 03/16/2012 9:30 AM CDT [facility] [address] [place] [address] March 16, 2012 WILMER RODRIGUEZ MD [address] [place] [address] RE: VENESSA MURRAY : 1955 Chart #: [id number] Visit provider: Antony Pineda M.D. Visit location: [facility] Dear Dr. RODRIGUEZ: I had the pleasure of seeing VENESSA MURRAY in the office today at your request. S he is 56 years of age and presents with the following chief complaints: chest p ain, dyspnea. HPI: I had the pleasure of visiting Ms. Murray today here at [facility] in [place], [place]. As you know, she is a 56-year-old wo man who presented to the emergency department on 03/02/12 with chest discomfort. Specifically, she felt a pressure just above her left breast. It soon turned int o a sharp, tightness sensation in her sternum radiating to her left shoulder, le ft arm, and jaw. She was diaphoretic and dyspneic with it. At first, she though t she might be having an anxiety attack. She took some of her Xanax and lied juan jose n. It did not get better, but continued to progress. She then went to the emerg ency department. There, she received supplemental oxygen, four baby aspirins, an d nitroglycerin. She is not sure if they made any significant difference. She th inks the nitro may have at least resolved her arm pain. Two sets of cardiac enz ymes were performed according to the labs I received. Although she still had so me chest discomfort, her enzymes were unremarkable and she was discharged home. She is here for a follow-up. She still has some chest discomfort, but not as complex as that. She only has mi ld tenderness over her left breast. This is not consistent. She was trying to w alk across the railroad tracks yesterday, which [place] a little bit of a hill, and s he found herself short of breath trying to do that. She denies any PND or ortho pnea. She has occasional skipped beats, but they are rare. She has no pedal shannan a. She has had no lightheadedness or syncope. Past Medical History: Carpal Tunnel Epicondylitis fibromyalgia Past Surgical History: Tonsillectomy 1969 Appendectomy 1972 Section 1976 Section 1979 Vaginal Hysterectomy 1986 Cholecystectomy 1992 Colectomy 2001 Final Medications: Xanax 0.5 Mg take 1 tablet (0.5MG) by oral route 3 times every day Vitamin B-12 2,000 Mcg Take 1 daily. Vicodin ES 7.5 Mg-750 Mg take 1 tablet by oral route every 4 - 6 hours as needed for pain not to exceed 5 tablets in 24hrs Lyrica 100 Mg take 1 capsule (100MG) by oral route 3 times every day Norflex 30 Mg/ml inject 2 milliliter (60MG) by intramuscular route every 12 hours as needed Effexor XR 75 Mg take 3 capsule by oral route every day with food Synthroid 75 Mcg take 1 tablet (75MCG) by oral route every day Depakote 250 Mg take 1 tablet (250MG) by oral route 2 times every day Laxative 15 Mg take 2 tablet (30MG) by oral route every day Excedrin Migraine 250 Mg-250 Mg-65 Mg as needed. Allergies/Intolerances: Penicillin G Meperidine HCl Methocarbamol Codeine Family History: Brother Diagnosed with [place], Stent, diagnosed in his 50s Brother Diagnosed with [place], at age 48. Mother Diagnosed with CAD, CHF, at age 82. Father Diagnosed with CAD, at age 70 from cancer. Social History: Marital Status: Children: 2 Occupation: disabled Advance Directives: There are no advance directives. Diet: Low fat/chol, Low carb Exercise: Occasional Tobacco: None Alcohol: Does not drink Caffeine: Caffeine use: 3 cups of coffee and/or tea ROS: 12-point review of systems is negative with the following exceptions: Constitutional: Fatigue Pulmonary: Snore Cardiovascular: Chest Discomfort, Shortness of breath GI: Nausea/Vomiting /FIREPERSON: Postmenopausal Hematology: Bleed or bruise easily Physical Exam: Vital Signs The patient is 5ft 2in tall, and weighs 208lbs. The BMI is 38.00. B lood pressure taken in the left arm is 104/80 mmHg in the sitting position. The pulse is 64. The rhythm is regular. Const The patient is an obese female. HEENT The pupils are equal and round. The patient's sclerae are clear. The ora l mucosa is moist. The patient's teeth are in good repair. Jugular venous pressure is estimated to be less than 8. Pulm Lungs are clear to auscultation. Thorax mildly tender over left breast Cardiac Regular rate and rhythm. Normal S1 and S2. No murmur, rub, or gallop pre sent. Abd The patient has no abdominal tenderness to palpation. There is no hepatomeg ihsan. The abdominal aorta is not palpable. There is no abdominal aortic bruit detect ed by auscultation. Bowel sounds are present. Vasc Distal pulses 2+ throughout with no carotid bruits noted EXT The extremities are warm to touch. There is no edema noted. Skin The skin is warm and dry. M/S The patient's gait is normal. No joint or spine deformities are noted. Neuro/Psych The patient is alert and oriented to time, person and place. The pa tient's mood is normal. Impression and Plan: Ms. Murray has had chest discomfort. Her risk factors for coronary artery diseas e are being postmenopausal as well as a strong family history for premature amber nary artery disease. However, she has no other risk factors, although I am uncl ear as to her lipid status. At this point, I would like to get an echocardiogra m to evaluate her dyspnea as well as nuclear stress test to evaluate for ischemi a. In the meantime, I am also going to be checking her fasting lipid panel, as she says she has not followed with you for quite some time, as well as some base line labs. We will keep you apprised as to her results. Testing ordered: Description Interval MPI - exercise First Available Complete Echo with Doppler and Color Flow First Available Follow up: Antony Pineda M.D. 45 Days Thank you for allowing me to participate in VENESSA MURRAY's care. If I can be of any further assistance, please do not hesitate to contact me. Sincerely, Antony MALIK/bn cc: BART NICK MD [address] [place], [place] [id number] F: 03/16/2012 03/16/2012 Addendum: On her way out, in the waiting room, her chest pain recurre d. EKG was unremarkable. I suggested that if it continued after half hour, to proceed to the ED and we may do the Echo and Ex MPI in the hospital more urgentl y. I just got a call from the ED at 13:17 that she was there. We will proceed with this plan, but my sense is that this is not cardiac chest pain, as previous ly, hours of chest pain did not raise any cardiac enzymes. IMS/mm documented in this encounter Plan of Treatment Not on filedocumented as of this encounter Visit Diagnoses Not on filedocumented in this encounter
--- OUTSIDE RECORDS SUMMARY | 2019-09-02 23:56 | XMS REPORT | Encounter Summary ---
Author Author [facility] Address Unknown Phone Unavailable Care Team Providers Care District Leader Name Role Phone PCP Unavailable Encounter Details Care Team Description Date Type Department Antony Pineda MD [address] [facility] [address] [place] [address] [phone] 03/22/2012 [facility] [...]
--- OUTSIDE RECORDS SUMMARY | 2019-09-02 23:56 | XMS REPORT | Encounter Summary ---
Author Author [facility] Organization [facility] Address Unknown Phone Unavailable Care Team Providers Care Senior Core Java Developer Name Role Phone PCP Unavailable Encounter Details Care Team Description Date Type Department [facility] Provider, MD Radha 03/17/2012 [facility] C Result Social History Date [...] Name Priority Date/Time Associated Diag nosis ECHO HISTORICAL Routine 03/17/2012 documented in this encounter Results * Echo historical (03/17/2012) Specimen Narrative Performed At Procedure Category: ECHO NEXTGEN Procedure: Echocardiogram Procedure Summary: 1. Normal left ventr icular systolic function, with an estimated ejection fraction of 65%. 2. No significant valvular abnormalitie s. No previous study available for compari son. Procedure Note Interface, Rad Conversion - 01/07/2015 6:46 PM CDT Procedure Category: ECHO Procedure: Echocardiogram Procedure Summary: 1. Normal left ventricular systolic function, with an estimated ejection fraction of 65%. 2. No significant valvular abnormalities . No previous study available for comparison. Performing Organization Address City/State/Zipcode Ph one Number NEXTGEN documented in this encounter Visit Diagnoses Not on filedocumented in this encounter
--- OUTSIDE RECORDS SUMMARY | 2019-09-02 23:56 | XMS REPORT | Clinical Summary ---
Author Author [facility] Organization [facility] Address Unknown Phone Unavailable Care Team Providers Care Ice Cream Server Name Role Phone PCP Unavailable Allergies Not on File Medications End Date Status Medication Sig Dispensed Refills Start Date Active jmnuxfw-sfytjxcwwrdiq-xmf as needed. 1 0 feine (EXCEDRIN MIGRAINE) 2 250-250-65 mg per tablet Active sennosides (LAXATIVE) 15 take 2 tablet 1 0 mg Tab (30MG) by 2 oral route every day Active cyanocobalamin (VITAMIN Take 1 daily. 1 0 B-12) 2000 MCG tablet 2 Active divalproex (DEPAKOTE DR) take 1 tablet 1 0 250 MG delayed-release (250MG) by 2 tablet oral route 2 times every day Active pregabalin (LYRICA) 100 take 1 1 0 MG capsule capsule 2 (100MG) by oral route 3 times every day Active levothyroxine (SYNTHROID) take 1 tablet 1 0 75 MCG tablet (75MCG) by 2 oral route every day Active venlafaxine (EFFEXOR XR) take 3 1 0 0 75 MG ER 24 hr capsule capsule by 2 oral route every day with food Active orphenadrine (NORFLEX) 30 inject 2 1 0 mg/mL injection milliliter 2 (60MG) by intramuscular route every 12 hours as needed Active ALPRAZolam (XANAX) 0.5 MG take 1 tablet 1 0 tablet (0.5MG) by 2 oral route 3 times every day Active HYDROcodone-acetaminophen take 1 tablet 1 0 (VICODIN ES) 7.5-750 mg by oral route 2 per tablet every 4 - 6 hours as needed for pain not to exceed 5 tablets in 24hrs Active Problems Not on file Family History Medical History Relation Name Comments Other Brother Diagnosed with [place],p assed away at age 48. Other Brother Diagnosed with [place],S tent,diagnosed in his 50s Other Father Diagnosed with CAD, at age 70 from cancer. Other Mother Diagnosed with CAD, CHF, at age 82. Relation Name Status Comments Brother Brother Father Mother Social History Date Tobacco Use Types Packs/Day Years Used Never Assessed Sex Assigned at Date Recorded Not on file Industry Job Start Date Occupation Not on file Not on file Not on file Travel End Travel History Travel Start No recent travel history available. Last Filed Vital Signs Reading Time Taken [...] 03/16/2012 9:45 AM CDT Body Mass Index Plan of Treatment Not on file Results Not on filefrom Last 3 Months
--- OUTSIDE RECORDS SUMMARY | 2019-09-02 23:56 | XMS REPORT | Encounter Summary ---
Author Author [facility] Organization [facility] Address Unknown Phone Unavailable Care Team Providers Care Wallpaper Installer Name Role Phone PCP Unavailable Encounter Details Care Team Description Date Type Department Antony Pineda MD [address] [facility] [address] [place] [address] [phone] 03/21/2012 [facility] [...] Progress Notes * Antony Pineda MD - 03/21/2012 1:32 PM CDT [facility] [address] [place] [address] 03/28/2012 WILMER RODRIGUEZ MD [address] [place] [id number] Re: VENESSA MURRAY : 1955 Chart#: [id number] Dear Dr. RODRIGUEZ: This is a followup note regarding VENESSA MURRAY. She has completed her cardiac t esting and I am writing to share the results with you. She had the following tests: MPI - exercise: Normal myocardial perfusion, without evidence of ischemia or inf arction. Normal global and regional left ventricular systolic function, with a r est ejection fraction of 73%.Fair exercise capacity, achieving 7.0 METs on a Bru ce protocol . The patient did develop 4/10 atypical chest discomfort with exerci se. Results of this study were verbally communicated Dr. Antione Blevins at 4 :39 PM on March 17, 2012. Complete Echo with Doppler and Color Flow: 1. Normal left ventricular systolic function, with an estimated ejection fractio n of 65%. 2. No significant valvular abnormalities. No previous study available for comparison. Fasting Lipid Panel: 03/17/12 Cholesterol. 193 50-200 HDL Cholesterol. 66 H 40-60 Triglycerides 130 <150 LDL Cholesterol 106 30-130 CMP (chem 20): 03/16/12 Glucose. 148 H (60-99) BUN 14 (7-18) Creatinine.. 0.6 (0.8-1.3) Sodium 129 L (136-145) Potassium.. 3.9 (3.5-5.1) Chloride.. 96 L (98-107) Carbon Dioxide.. 29 (21-32) Calcium.. 9 (8.5-10.1) Protein, Total. 7.9 (6.4-8.2) Albumin.. 3.9 (3.4-5.0) Bilirubin, Total. 0.1 L (0.3-1.2) AST.. 30 (15-37) ALT .. 28 L (30-65) CBC w/ Diff w/ Plt: 03/17/12 WBC.. 9.15 4.8-10.8 RBC 4.01 L 4.5-6.0 Hemoglobin.. 12.1 14.0-18.0 Hematocrit 36.6 L 40-52 MCV.. 91.3 80-100 MCH . 30.2 26-34 MCHC .. 33.1 28-37 RDW . 12.7 10.5-14.5 Platelet Count.. 358 130-400 Absolute Neutrophils.. 7.18 1.90-8.00 Absolute Lymphocytes.. 1.37 0.90-5.20 Absolute Eosinophils. 0.14 0.00-0.80 Neutrophils.. 78.5 H 40.0-74.0 Lymphocytes.. 15.0 L 19.0-48.0 Monocytes.. 3.7 L 3.9-9.0 Eosinophils. 1.6 0.0-3.0 Basophils 0.3 0.0-2.0 Based on the above, I am recommending the following: - Stress test is equivocal so I recommend a coronary CTA. Follow up is requested as planned. These test results along with my recommendations have been communicated to MIHAELA MURRAY. I hope this information is useful to you. If you should have any ques tions or concerns, please do not hesitate to contact me. Sincerely, Antony Pineda M.D. documented in this encounter Plan of Treatment Not on filedocumented as of this encounter Visit Diagnoses Not on filedocumented in this encounter
--- OUTSIDE RECORDS SUMMARY | 2019-09-02 23:56 | XMS REPORT | Encounter Summary ---
Author Author [facility] Organization [facility] Address Unknown Phone Unavailable Care Team Providers Care Floor Cleaner Name Role Phone PCP Unavailable Encounter Details Care Team Description Date Type Department 03/20/2012 [facility] [...]
--- OUTSIDE RECORDS SUMMARY | 2019-09-02 23:56 | XMS REPORT | Encounter Summary ---
Author Author [facility] Organization [facility] Address Unknown Phone Unavailable Care Team Providers Care Vendor Representatives Name Role Phone PCP Unavailable Encounter Details Care Team Description Date Type Department [facility] Provider, MD Radha 03/17/2012 [facility] HISTORIC CLINI C Social History Date Tobacco [...] Procedure Name Priority Date/Time Associated Diag nosis NUC EJECTION FRACTION Routine 03/17/2012 HISTORICAL 12:00 AM CDT documented in this encounter Results * Nuc Ejection Fraction historical (03/17/2012 12:00 AM CDT) Ejection 73Comment: Nuclear NUCMED Fraction (Adenosine-Reinjection Thallium-201) Specimen Performing Organization Address City/State/[facility] Ph one Number NUCMED documented in this encounter Visit Diagnoses Not on filedocumented in this encounter
--- OUTSIDE RECORDS SUMMARY | 2019-09-02 23:56 | XMS REPORT | Encounter Summary ---
Author Author [facility] Organization [facility] Address Unknown Phone Unavailable Care Team Providers Care County Agent Name Role Phone PCP Unavailable Encounter Details Care Team Description Date Type Department [facility] Provider, MD Radha 03/17/2012 [facility] HISTORIC CLINI C Result Social History Date [...] Name Priority Date/Time Associated Diag nosis CV MPI SPECT HISTORICAL Routine 03/17/2012 documented in this encounter Results * CV MPI SPECT historical (03/17/2012) Specimen Narrative Performed At Procedure Category: NUC NEXTGEN Procedure: Sestamibi Exercise r/s Procedure Summary: Normal myocardial pe rfusion, without evidence of ischemia or infarction.Normal global and regional l eft ventricular systolic function, with a rest ejection fraction of 73%.Fair exer cise capacity, achieving 7.0 METs on a Saumel protocol .The patient did develop 4/10 atypical chest discomfort with exercise.Results of this study were verbally communicated Chema Blevins at 4:39 PM on March 17, 2012. Procedure Note Interface, Rad Conversion - 01/07/2015 6:47 PM CDT Procedure Category: NUC Procedure: Sestamibi Exercise r/s Procedure Summary: Normal myocardial perfusion, without evidence of ischemia or infarction.Normal global and regional left ventricular systolic function, with a rest ejection fraction of 73%.Fair exercise capacity, achieving 7.0 METs on a Samuel protocol .The patient did develop 4/10 atypical c hest discomfort with exercise.Results of this study were verbally communicated Dr. Antione Blevins at 4:39 PM on March 17, 2012. Performing Organization Address City/State/Zipcode Ph one Number NEXTGEN documented in this encounter Visit Diagnoses Not on filedocumented in this encounter
--- OUTSIDE RECORDS SUMMARY | 2019-09-02 23:56 | XMS REPORT | Encounter Summary ---
Author Author [facility] Address Unknown Phone Unavailable Care Team Providers Care Box Closing Machine Operator Name Role Phone PCP Unavailable Encounter Details Care Team Description Date Type Department Antony Pineda MD [address] [facility] [address] [place] [address] [phone] 04/24/2012 [facility] [...]
--- OUTSIDE RECORDS SUMMARY | 2019-09-02 23:56 | XMS REPORT | Encounter Summary ---
Author Author [facility] Organization [facility] Address Unknown Phone Unavailable Care Team Providers Care It Programmer Name Role Phone PCP Unavailable Encounter Details Care Team Description Date Type Department Antony Pineda MD [address] [facility] [address] [place] [address] [phone] Chest pain, unspecified [facility] [address] [place] [address] Social History Date Tobacco Use Types Packs/Day Years Used Never Assessed Sex Assigned at Date Recorded Not on file Industry Job Start Date Occupation Not on file Not on file Not on file Travel End Travel History Travel Start No recent travel history available. documented as of this encounter Medications at Time of Discharge Start Date End Date Medication Sig Dispensed Refills 03/16/2012 ALPRAZolam (XANAX) 0.5 MG take 1 tablet 1 0 tablet (0.5MG) by oral route 3 times every day 03/16/2012 mdngyrk-fqnwdmvhwbbyc-ass as needed. 1 0 feine (EXCEDRIN MIGRAINE) 250-250-65 mg per tablet 03/16/2012 cyanocobalamin (VITAMIN Take 1 daily. 1 0 B-12) 2000 MCG tablet 03/16/2012 divalproex (DEPAKOTE DR) take 1 tablet 1 0 250 MG delayed-release (250MG) by tablet oral route 2 times every day 03/16/2012 HYDROcodone-acetaminophen take 1 tablet 1 0 (VICODIN ES) 7.5-750 mg by oral route per tablet every 4 - 6 hours as needed for pain not to exceed 5 tablets in 24hrs 03/16/2012 levothyroxine (SYNTHROID) take 1 tablet 1 0 75 MCG tablet (75MCG) by oral route every day 03/16/2012 orphenadrine (NORFLEX) 30 inject 2 1 0 mg/mL injection milliliter (60MG) by intramuscular route every 12 hours as needed 03/16/2012 pregabalin (LYRICA) 100 take 1 1 0 MG capsule capsule (100MG) by oral route 3 times every day 03/16/2012 sennosides (LAXATIVE) 15 take 2 tablet 1 0 mg Tab (30MG) by oral route every day 03/16/2012 venlafaxine (EFFEXOR XR) take 3 1 0 75 MG ER 24 hr capsule capsule by oral route every day with food documented as of this encounter Plan of Treatment Not on filedocumented as of this encounter Visit Diagnoses Diagnosis Chest pain, unspecified documented in this encounter
--- OUTSIDE RECORDS SUMMARY | 2019-09-02 23:57 | XMS REPORT ---
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 Name Role Phone JOE BAI Unavailable PROBLEMS Type Condition ICD9-CM Code GXV58-NP Code Onset Dates Condition S tatus SNOMED Code Problem Hypothyroidism, unspecified type E03.9 Active 68390119 Problem Reflex sympathetic dystrophy G90.50 A ctive 57584756 Problem Venous insufficiency I87.2 Active 13955258 Problem Fibromyalgia M79.7 Active 6963398 05 Problem Gastroesophageal reflux disease, esophagitis pre sence not specified K21.9 Active 504733985 Problem Arthritis M19.90 Active 9818219 Problem Mixed hyperlipidemia E78.2 Active 933913894 Problem Rosacea L71.9 Active 398782220 Problem Internal derangement of right knee M23.91 Active 318976405726021 Problem Age-related osteoporosis without current pathological fracture M81.0 Active 17145379 Problem Insomnia, unspecified G47.00 Active 023263848 Problem Neuropathy G62.9 Active 316836056 Problem Mild episode of recurrent major depressive disorder F33.0 Active 035132312 Problem Orgasmic headache G44.82 Active 10 1727876 Problem Generalized anxiety disorder F41.1 A ctive 01952204 Problem Morbid (severe) obesity due to excess calories E66 .01 Active 748434129 Problem Intractable migraine without aura and without st atus migrainosus G43.019 Active 113945417 Problem Migraine without aura and without status migrain osus, not intractable G43.009 Active 736385925 Problem Chronic obstructive pulmonary disease, unspecified COPD ty pe J44.9 Active 49951950 ALLERGIES No Information ENCOUNTERS Encounter Location Date Diagnosis [facility] [id number] [place] [address] October, [facility] [id number] [place] [address] Sep, [facility] [id number] [place] [address] Sep, [facility] [address] [address] Aug, [facility] [address] [address] Aug, [facility] [address] [address] Jul, [facility] [address] [address] Jul, [facility] [address] [address] Jul, Fibromyalgia M79.7 [facility] [address] [address] Jul, [facility] [address] [address] Jul, Generalized anxiety disorder F41.1 and M ild episode of recurrent major depressive disorder F33.0 [facility] [address] [address] Jun, Abnormal laboratory test R89.9 [facility] [address] [address] Jun, Orgasmic headache G44.82 [facility] [address] [address] Jun, Generalized anxiety disorder F41.1 and M ild episode of recurrent major depressive disorder F33.0 [facility] [address] [address] Jun, [facility] [address] [address] Jun, Orgasmic headache G44.82 [facility] [address] [address] Jun, Orgasmic headache G44.82 [place] [address] [address] Jun, Orgasmic headache G44.82 [facility] [address] [address] Jun, Fibromyalgia M79.7 [facility] [address] [address] Jun, Generalized anxiety disorder F41.1 and M ild episode of recurrent major depressive disorder F33.0 [place] [address] [address] Jun, [facility] [address] [address] May, Generalized anxiety disorder F41.1 and M ild episode of recurrent major depressive disorder F33.0 [place] [address] [address] May, Generalized anxiety disorder F41.1 and M ild episode of recurrent major depressive disorder F33.0 [place] [address] [address] May, Other chest pain R07.89 [place] [address] [address] May, Left-sided chest pain R07.9 [place] [address] [address] May, Generalized anxiety disorder F41.1 and M ild episode of recurrent major depressive disorder F33.0 [facility] [address] [id number] [address] [place] [address] May, Cough R05 and Chest pain, un specified type R07.9 [facility] [id number] [place] [address] Apr, Generalized anxiety disorder F41.1 and M ild episode of recurrent major depressive disorder F33.0 [facility] [address] [address] Apr, Generalized anxiety disorder F41.1 and M ild episode of recurrent major depressive disorder F33.0 [facility] [address] [address] Mar, [facility] [address] [address] Mar, Chest wall pain R07.89 ; Skin tag L91.8 and Encounter for immunization Z23 [facility] [address] [address] Mar, [facility] [address] [address] Mar, [facility] [address] [address] Mar, Generalized anxiety disorder F41.1 and M ild episode of recurrent major depressive disorder F33.0 [facility] [address] [address] Mar, [facility] [address] [address] Mar, Fibromyalgia M79.7 [facility] [address] [address] Feb, [facility] [address] [address] Feb, Arthritis M19.90 ; Neuropathy G62.9 and Fibromyalgia M79.7 [facility] [address] [address] Feb, [facility] [address] [address] Feb, Generalized anxiety disorder F41.1 ; Mil d episode of recurrent major depressive disorder F33.0 ; Morbid obesity E66.01 and Insomnia, unspecified G47.00 [facility] [address] [address] Feb, Generalized anxiety disorder F41.1 and M ild episode of recurrent major depressive disorder F33.0 [facility] [address] [address] Feb, [facility] [address] [address] Feb, Fibromyalgia M79.7 [place] [address] [address] Feb, Generalized anxiety disorder F41.1 and M ild episode of recurrent major depressive disorder F33.0 [place] [address] [address] Jan, Rosacea L71.9 [place] [address] [address] Jan, Rosacea L71.9 [place] [address] [address] Jan, Encounter for Medicare annual wellness e xam Z00.00 ; Fibromyalgia M79.7 ; Encounter for immunization Z23 ; Hypothyroidism, unspecified type E03.9 ; Generalized anxiety disorder F41.1 ; Mild episode of recurrent major depressive disorder F33.0 ; Age-related osteoporosis without current pathological fracture M81.0 ; Insomnia, unspecified G47.00 ; Migraine without aura and without status migrainosus, not intractable G43.009 ; Chronic obstructive pulmonary disease, unspecified COPD type J44.9 ; Mixed hyperlipidemia E78.2 ; Morbid (severe) obesity due to excess calories E66.01 and Morbid obesity E66.01 [place] [address] [address] Jan, Generalized anxiety disorder F41.1 and M ild episode of recurrent major depressive disorder F33.0 [place] [address] [address] Jan, Fibromyalgia M79.7 [place] [address] [address] Jan, Generalized anxiety disorder F41.1 and M ild episode of recurrent major depressive disorder F33.0 [place] [address] [address] Dec, Generalized anxiety disorder F41.1 and M ild episode of recurrent major depressive disorder F33.0 [facility] [address] [address] Dec, Fibromyalgia M79.7 [facility] [address] [address] Dec, Generalized anxiety disorder F41.1 and M ild episode of recurrent major depressive disorder F33.0 [facility] [address] [address] Dec, Generalized anxiety disorder F41.1 and M ild episode of recurrent major depressive disorder F33.0 [facility] [address] [address] Nov, Chronic obstructive pulmonary disease, u nspecified COPD type J44.9 [facility] [address] [address] Nov, Orgasmic headache G44.82 and Morbid obes ity E66.01 [facility] [address] [address] Nov, Generalized anxiety disorder F41.1 and M ild episode of recurrent major depressive disorder F33.0 [facility] [address] [address] Nov, Generalized anxiety disorder F41.1 ; Mil d episode of recurrent major depressive disorder F33.0 ; Morbid obesity E66.01 and Insomnia, unspecified G47.00 [facility] [address] [address] Nov, Fibromyalgia M79.7 [facility] [address] [address] Nov, [facility] [address] [address] Nov, [facility] [address] [address] Nov, Flank pain R10.9 ; Venous stasis I87.8 a nd Migraine without aura and without status migrainosus, not intractable G43.009 [place] [address] [address] Nov, Generalized anxiety disorder F41.1 and M ild episode of recurrent major depressive disorder F33.0 [facility] [address] [address] October, [place] [address] [address] October, Generalized anxiety disorder F41.1 and F ibromyalgia M79.7 [place] [place] [address] October, [place] [address] [address] October, Generalized anxiety disorder F41.1 and M ild episode of recurrent major depressive disorder F33.0 [place] [address] [address] October, Generalized anxiety disorder F41.1 and M ild episode of recurrent major depressive disorder F33.0 [place] [address] [address] Sep, Mild episode of recurrent major depressi ve disorder F33.0 and Generalized anxiety disorder F41.1 [place] [address] [address] Sep, Generalized anxiety disorder F41.1 ; Mil d episode of recurrent major depressive disorder F33.0 ; Morbid obesity E66.01 and Insomnia, unspecified G47.00 [place] [address] [address] Sep, Fibromyalgia M79.7 [facility] [address] [address] Sep, Fibromyalgia M79.7 ; Vertigo R42 ; Arthr itis M19.90 and Morbid obesity E66.01 [facility] [address] [address] 15 Sep, 2018 Morbid (severe) obesity due to excess ca lories E66.01 [facility] [address] [address] 15 Sep, 2018 Generalized anxiety disorder F41.1 and M ild episode of recurrent major depressive disorder F33.0 [facility] [address] [address] Sep, Generalized anxiety disorder F41.1 and M ild episode of recurrent major depressive disorder F33.0 [place] [address] [address] Aug, Fibromyalgia M79.7 [place] [address] [address] Aug, Generalized anxiety disorder F41.1 ; Mil d episode of recurrent major depressive disorder F33.0 and Morbid obesity E66.01 [facility] [address] [address] Aug, Class 1 obesity due to excess calories i n adult, unspecified BMI, unspecified whether serious comorbidity present E66.09 [facility] [address] [address] Aug, Generalized anxiety disorder F41.1 and M ild episode of recurrent major depressive disorder F33.0 [facility] [address] [address] Aug, Generalized anxiety disorder F41.1 and M ild episode of recurrent major depressive disorder F33.0 [place] [address] [address] Jul, Fibromyalgia M79.7 [facility] [address] [address] Jul, Generalized anxiety disorder F41.1 and M ild episode of recurrent major depressive disorder F33.0 [place] [id number] [place] [address] Jul, [facility] [id number] [place] [address] Jul, Fatigue R53.83 and BMI 40.0-44.9, adult Z68.41 [facility] [id number] [place] [address] Jul, Generalized anxiety disorder F41.1 and M ild episode of recurrent major depressive disorder F33.0 [facility] [id number] [place] [address] Jun, Fibromyalgia M79.7 [facility] [address] [address] Jun, Generalized anxiety disorder F41.1 and M ild episode of recurrent major depressive disorder F33.0 [facility] [id number] [place] [address] Jun, [facility] [address] [address] Jun, Generalized anxiety disorder F41.1 and M ild episode of recurrent major depressive disorder F33.0 [facility] [address] [id number] Jun, [facility] [id number] [place] [address] Jun, Fibromyalgia M79.7 [facility] [id number] [place] [address] May, Generalized anxiety disorder F41.1 and M ild episode of recurrent major depressive disorder F33.0 [facility] [id number] [place] [address] May, Generalized anxiety disorder F41.1 and M ild episode of recurrent major depressive disorder F33.0 [facility] [id number] [place] [address] May, Fibromyalgia M79.7 [facility] [address] [address] May, Generalized anxiety disorder F41.1 and M ild episode of recurrent major depressive disorder F33.0 [facility] [address] [address] Apr, Fibromyalgia M79.7 [facility] [address] [address] Apr, [facility] [address] [address] Apr, [facility] [address] [address] Apr, Generalized anxiety disorder F41.1 and M ild episode of recurrent major depressive disorder F33.0 [facility] [address] [address] Apr, Generalized anxiety disorder F41.1 and M ild episode of recurrent major depressive disorder F33.0 [facility] [address] [address] Apr, Fibromyalgia M79.7 [facility] [address] [address] Apr, Generalized anxiety disorder F41.1 and M ild episode of recurrent major depressive disorder F33.0 [facility] [address] [address] Mar, [facility] [address] [address] Mar, Age-related osteoporosis without current pathological fracture M81.0 ; Encounter for immunization Z23 and BMI 40.0-44.9, adult Z68.41 [facility] [address] [address] Mar, Generalized anxiety disorder F41.1 and M ild episode of recurrent major depressive disorder F33.0 [facility] [address] [address] Mar, Fibromyalgia M79.7 [place] [address] [address] 08 Mar, 2018 Generalized anxiety disorder F41.1 and M ild episode of recurrent major depressive disorder F33.0 [place] [address] [address] 24 Feb, 2018 Generalized anxiety disorder F41.1 and M ild episode of recurrent major depressive disorder F33.0 [place] [address] [address] 13 Feb, 2018 Fibromyalgia M79.7 [place] [address] [address] 10 Feb, 2018 Generalized anxiety disorder F41.1 and M ild episode of recurrent major depressive disorder F33.0 [place] [address] [address] 06 Feb, 2018 [place] [address] [address] Feb, Bronchospasm J98.01 and Arthritis M19.90 [place] [address] [address] Jan, Medicare annual wellness visit, initial Z00.00 ; Reactive depression F32.9 ; Reflex sympathetic dystrophy G90.50 ; Fibromyalgia M79.7 ; BMI 40.0- 44.9, adult Z68.41 ; Hypothyroidism, unspecified type E03.9 ; Gastroesophageal reflux disease, esophagitis presence not specified K21.9 ; Family history of osteoporosis Z82.62 ; Venous insufficiency I87.2 ; Arthritis M19.90 ; Mixed hyperlipidemia E78.2 and Generalized anxiety disorder F41.1 [place] [address] [address] Jan, Generalized anxiety disorder F41.1 and M ild episode of recurrent major depressive disorder F33.0 [place] [address] [address] Jan, Mild episode of recurrent major depressi ve disorder F33.0 and Generalized anxiety disorder F41.1 [place] [address] [address] Jan, Fibromyalgia M79.7 [facility] [address] [address] Jan, Bronchospasm J98.01 [facility] [address] [address] Jan, [facility] [address] [address] Jan, Generalized anxiety disorder F41.1 and M ild episode of recurrent major depressive disorder F33.0 [place] [address] [address] Jan, Bronchitis J40 [place] [address] [address] Dec, Mild episode of recurrent major depressi ve disorder F33.0 [place] [address] [address] Dec, Generalized anxiety disorder F41.1 and M ild episode of recurrent major depressive disorder F33.0 [place] [address] [address] Dec, Fibromyalgia M79.7 ; Arthritis M19.90 an d Generalized anxiety disorder F41.1 [place] [address] [address] Dec, Mild episode of recurrent major depressi ve disorder F33.0 and Generalized anxiety disorder F41.1 [facility] [address] [address] Dec, Fibromyalgia M79.7 [facility] [address] [address] Dec, Bronchitis J40 and Internal derangement of right knee M23.91 [facility] [address] [id number] [place] [address] Dec, Cough R05 [facility] [address] [address] Dec, Generalized anxiety disorder F41.1 and M ild episode of recurrent major depressive disorder F33.0 [facility] [address] [address] 09 Dec, 2017 [facility] [address] [facility] [id number] [address] [address] Dec, [facility] [address] [address] Dec, Mild episode of recurrent major depressi ve disorder F33.0 and Generalized anxiety disorder F41.1 [facility] [address] [address] Nov, [facility] [address] [address] Nov, [facility] [address] [address] Nov, [facility] [address] [address] Nov, Internal derangement of right knee M23.9 1 [facility] [address] [address] Nov, Generalized anxiety disorder F41.1 and M ild episode of recurrent major depressive disorder F33.0 [facility] [address] [address] Nov, Internal derangement of right knee M23.9 1 [facility] [address] [facility] [id number] [address] [address] Nov, Acute right ankle pain M25.5 71 ; Acute pain of right knee M25.561 ; Acute left-sided low back pain without sciatica M54.5 and Right leg pain M79.604 [facility] [address] [address] 15 Nov, 2017 [facility] [address] [address] Nov, Fibromyalgia M79.7 [facility] [address] [address] Nov, Generalized anxiety disorder F41.1 and M ild episode of recurrent major depressive disorder F33.0 [facility] [address] [address] Nov, [facility] [address] [address] October, Generalized anxiety disorder F41.1 and M ild episode of recurrent major depressive disorder F33.0 [facility] [address] [address] October, Fibromyalgia M79.7 [facility] [address] [address] October, [facility] [address] [address] October, Generalized anxiety disorder F41.1 and M ild episode of recurrent major depressive disorder F33.0 [facility] [address] [address] October, [facility] [address] [address] Sep, Gastroesophageal reflux disease, esophag itis presence not specified K21.9 and Abnormal laboratory test R89.9 [facility] [address] [address] Sep, Fibromyalgia M79.7 [facility] [address] [address] Sep, Generalized anxiety disorder F41.1 and M ild episode of recurrent major depressive disorder F33.0 [facility] [address] [address] Sep, Epigastric pain R10.13 [facility] [address] [address] Sep, Mild episode of recurrent major depressi ve disorder F33.0 and Generalized anxiety disorder F41.1 [facility] [address] [address] Sep, Abnormal laboratory test R89.9 [facility] [address] [address] Sep, Generalized anxiety disorder F41.1 and M ild episode of recurrent major depressive disorder F33.0 [facility] [address] [address] Aug, Epigastric pain R10.13 and Encounter for therapeutic drug level monitoring Z51.81 [facility] [address] [facility] [address] [id number] [address] [place] [address] Aug, Epigastric pain R10.13 and G henri-esophageal reflux disease without esophagitis K21.9 [facility] [address] [address] Aug, [facility] [address] [address] Aug, Epigastric pain R10.13 [place] [address] [address] Aug, Fibromyalgia M79.7 [facility] [address] [address] Aug, [facility] [address] [address] Aug, Generalized anxiety disorder F41.1 and M ild episode of recurrent major depressive disorder F33.0 [facility] [address] [address] 08 Aug, 2017 Epigastric pain R10.13 ; Reflex sympathe tic dystrophy G90.50 and Arthritis M19.90 [facility] [address] [address] Jul, Generalized anxiety disorder F41.1 and M ild episode of recurrent major depressive disorder F33.0 [facility] [address] [address] Jul, BMI 40.0-44.9, adult Z68.41 ; Mild episo de of recurrent major depressive disorder F33.0 and Generalized anxiety disorder F41.1 [facility] [address] [address] Jul, Fibromyalgia M79.7 [facility] [address] [address] Jun, Mild episode of recurrent major depressi ve disorder F33.0 and Generalized anxiety disorder F41.1 [place] [address] [address] Jun, Fibromyalgia M79.7 [place] [address] [address] Jun, Generalized anxiety disorder F41.1 and M ild episode of recurrent major depressive disorder F33.0 [place] [address] [address] Jun, Generalized anxiety disorder F41.1 and M ild episode of recurrent major depressive disorder F33.0 [place] [address] [address] Jun, Generalized anxiety disorder F41.1 and M ild episode of recurrent major depressive disorder F33.0 [place] [address] [address] Jun, [facility] [address] [address] Jun, Generalized anxiety disorder F41.1 and M ild episode of recurrent major depressive disorder F33.0 [place] [address] [address] May, Fibromyalgia M79.7 [facility] [address] [address] May, Generalized anxiety disorder F41.1 and M ild episode of recurrent major depressive disorder F33.0 [place] [address] [address] May, Mixed hyperlipidemia E78.2 ; Arthritis M 19.90 ; Reactive depression F32.9 and Hypothyroidism, unspecified type E03.9 [facility] [address] [address] May, Arthritis M19.90 ; Reactive depression F 32.9 ; Mixed hyperlipidemia E78.2 and Hypothyroidism, unspecified type E03.9 [facility] [address] [address] Apr, Fibromyalgia M79.7 [facility] [address] [address] Apr, [facility] [address] [address] Apr, Fibromyalgia M79.7 [facility] [address] [address] Mar, Fibromyalgia M79.7 [facility] [address] [address] Mar, [facility] [address] [address] Mar, Fibromyalgia M79.7 [facility] [address] [address] Mar, [facility] [address] [address] Feb, Reflex sympathetic dystrophy G90.50 ; Ri ght arm pain M79.601 and Fibromyalgia M79.7 [facility] [address] [address] Feb, [facility] [address] [address] Feb, Anxiety F41.9 [facility] [address] [address] Feb, Fibromyalgia M79.7 [facility] [address] [address] Feb, [facility] [address] [address] Feb, [facility] [address] [address] Jan, Temporal headache R51 [place] [address] [address] Jan, Fibromyalgia M79.7 [place] [address] [address] Dec, Fibromyalgia M79.7 [place] [address] [address] Nov, Peroneal tendonitis, unspecified lateral ity M76.70 and Plantar fasciitis, bilateral M72.2 [place] [address] [address] Nov, Fibromyalgia M79.7 [place] [address] [address] [address] October, Fibromyalgia M79.7 [place] [address] [address] October, Plantar fasciitis, bilateral M72.2 and P eroneal tendonitis, unspecified laterality M76.70 [place] [address] [address] October, Fibromyalgia M79.7 [facility] [address] [address] Sep, Anxiety F41.9 [place] [address] [address] Aug, Anxiety F41.9 and Adjustment disorder [facility] anxiety F43.22 [place] [address] [address] Aug, Pain of left foot M79.672 [place] [address] [address] Aug, Pain of left foot M79.672 and Pain in ri ght foot M79.671 [place] [address] [place] [id number] Aug, Arthritis M19.90 ; Reactive depression F 32.9 ; Fibromyalgia M79.7 ; Rosacea L71.9 ; Pain in right foot M79.671 and Pain of left foot M79.672 [place] [address] [address] Aug, Anxiety F41.9 ; Adjustment disorder with anxiety F43.22 and Reactive depression F32.[address] [address] Aug, Right elbow pain M25.[address] [address] Aug, Plantar wart of right foot B07.0 and Act inic keratosis L57.0 [place] [address] [address] Aug, Fibromyalgia M79.[address] [address] Jul, Arthritis M19.90 ; Hypothyroidism, unspe cified type E03.9 ; Reactive depression F32.9 and Venous insufficiency I87.2 [place] [address] [address] Jul, Gastroesophageal reflux disease, esophag itis presence not specified K21.[address] [address] Jul, Reflex sympathetic dystrophy G90.[address] [address] Jul, Anxiety F41.9 ; Adjustment disorder with anxiety F43.22 and Reactive depression F32.9 [place] [address] [address] 15 Jul, 2016 [place] [address] [address] Jul, Right elbow pain M25.521 [place] [address] [address] Jun, Fibromyalgia M79.7 [place] [address] [address] Jun, Anxiety F41.9 ; Adjustment disorder with anxiety F43.22 and Reactive depression F32.[address] [address] Jun, [place] [address] [address] Jun, Atypical chest pain R07.89 and Adjustmen t disorder with anxiety F43.22 [place] [address] [id number] [id number] Jun, Chest pain, unspecified type R07.9 [place] [address] [address] Jun, Fibromyalgia M79.7 [place] [address] [address] May, Anxiety F41.9 [place] [address] [address] May, [place] [address] [address] May, Right elbow pain M25.521 [place] [address] [address] Apr, Reflex sympathetic dystrophy G90.50 and Encounter for immunization Z23 [place] [address] [address] Apr, [place] [address] [address] Mar, [facility] [address] [address] [id number] [place] [address] Feb, [facility] [address] [address] Feb, [facility] [address] [address] Jan, [facility] [address] [address] Jan, Right elbow pain M25.521 and Right wrist pain M25.531 [facility] [address] [address] Jan, [facility] [address] [address] Dec, Seborrheic keratoses L82.1 [facility] [address] [address] Dec, [facility] [address] [address] Dec, [facility] [address] [address] Dec, [facility] [address] [address] Dec, Fibromyalgia M79.7 and Hypothyroidism, u nspecified type E03.9 [facility] [address] [address] Dec, Seborrheic keratoses L82.1 [facility] [address] [address] Dec, [facility] [address] [address] Dec, [facility] [address] [address] Nov, Sebaceous cyst L72.3 [facility] [address] [place] [id number] [place] [address] October, Breast cancer screening Z12.39 [place] [address] [facility] [place] [address] October, Fibromyalgia M79.7 ; Hypothyroidism, uns pecified type E03.9 and Reflex sympathetic dystrophy G90.50 [place] [address] [facility] [place] [address] October, Reflex sympathetic dystrophy G90.50 ; Fi bromyalgia M79.7 and Hypothyroidism, unspecified type E03.9 IMMUNIZATIONS [...] concussions Medical History Plica Syndrom right knee Medical History right knee repair - meniscus Medical History Currently is wearing a heart monitor, Via [employer] is checking heart. Surgical History tonsillectomy Surgical History appendectomy Surgical History section Surgical History hysterectomy, abdominal Surgical History carpal tunnel release Surgical History cholecystectomy Surgical History colon resection Hospitalization History surgeries Hospitalization History Chest Pain-[facility] 07/02/16 Hospitalization History Chest Pain - [facility] 10/06/17
--- OUTSIDE RECORDS SUMMARY | 2019-09-02 23:57 | XMS REPORT ---
Author Author Venessa ABI Organization [facility] Address [address] [place] [address] Care Team Providers Care Er Tech Name Role Phone JOE BAI Unavailable PROBLEMS Type Condition ICD9-CM Code SYV96-MW Code Onset Dates Condition S tatus SNOMED Code Problem Hypothyroidism, unspecified type E03.9 Active 54258009 Problem Reflex sympathetic dystrophy G90.50 A ctive 82455400 Problem Venous insufficiency I87.2 Active 49964901 Problem Fibromyalgia M79.7 Active 6884572 05 Problem Gastroesophageal reflux disease, esophagitis pre sence not specified K21.9 Active 737988674 Problem Arthritis M19.90 Active 8849292 Problem Mixed hyperlipidemia E78.2 Active 991166270 Problem Rosacea L71.9 Active 945790239 Problem Internal derangement of right knee M23.91 Active [id number] Problem Age-related osteoporosis without current pathological fracture M81.0 Active 11941490 Problem Insomnia, unspecified G47.00 Active 216742341 Problem Neuropathy G62.9 Active 544106885 Problem Mild episode of recurrent major depressive disorder F33.0 Active 236926817 Problem Orgasmic headache G44.82 Active 10 4461098 Problem Generalized anxiety disorder F41.1 A ctive 50487323 Problem Morbid (severe) obesity due to excess calories E66 .01 Active 644829124 Problem Intractable migraine without aura and without st atus migrainosus G43.019 Active 301062388 Problem Migraine without aura and without status migrain osus, not intractable G43.009 Active 443662343 Problem Chronic obstructive pulmonary disease, unspecified COPD ty pe J44.9 Active 84805031 ALLERGIES No Information ENCOUNTERS Encounter Location Date Diagnosis [facility] [address] [facility] [id number] [place] [address] October, [facility] [address] [facility] [id number] [place] [address] October, [facility] [address] [address] Sep, [facility] [address] [address] Sep, [facility] [address] [address] Aug, [facility] [address] [address] Aug, [facility] [address] [address] Jul, Generalized anxiety disorder F41.1 and M ild episode of recurrent major depressive disorder F33.0 [place] [address] [address] Jul, Generalized anxiety disorder F41.1 ; Mil d episode of recurrent major depressive disorder F33.0 ; Morbid obesity E66.01 and Insomnia, unspecified G47.00 [place] [address] [address] Jul, [place] [address] [address] Jul, Fibromyalgia M79.7 [place] [address] [address] Jul, [facility] [address] [address] Jul, Generalized anxiety disorder F41.1 and M ild episode of recurrent major depressive disorder F33.0 [facility] [address] [address] Jun, Abnormal laboratory test R89.9 [facility] [address] [address] Jun, Orgasmic headache G44.82 [facility] [address] [address] Jun, Generalized anxiety disorder F41.1 and M ild episode of recurrent major depressive disorder F33.0 [facility] [address] [address] Jun, [facility] [address] [address] Jun, Orgasmic headache G44.82 [facility] [address] [address] Jun, Orgasmic headache G44.82 [facility] [address] [address] Jun, Orgasmic headache G44.82 [place] [address] [address] Jun, Fibromyalgia M79.7 [place] [address] [address] Jun, Generalized anxiety disorder F41.1 and M ild episode of recurrent major depressive disorder F33.0 [place] [address] [address] Jun, [place] [address] [address] May, Generalized anxiety disorder F41.1 and M ild episode of recurrent major depressive disorder F33.0 [place] [address] [address] May, Generalized anxiety disorder F41.1 and M ild episode of recurrent major depressive disorder F33.0 [facility] [address] [address] May, Other chest pain R07.89 [place] [address] [address] May, Left-sided chest pain R07.9 [facility] [address] [address] May, Generalized anxiety disorder F41.1 and M ild episode of recurrent major depressive disorder F33.0 [facility] [address] [facility] [id number] [place] [address] May, Cough R05 and Chest pain, un specified type R07.9 [facility] [address] [address] Apr, Generalized anxiety disorder F41.1 and M ild episode of recurrent major depressive disorder F33.0 [facility] [address] [address] Apr, Generalized anxiety disorder F41.1 and M ild episode of recurrent major depressive disorder F33.0 [facility] [address] [address] Mar, [facility] [address] [address] Mar, Chest wall pain R07.89 ; Skin tag L91.8 and Encounter for immunization Z23 [facility] [address] [address] Mar, [facility] [address] [address] Mar, [facility] [address] [address] Mar, Generalized anxiety disorder F41.1 and M ild episode of recurrent major depressive disorder F33.0 [facility] [address] [address] Mar, [facility] [address] [address] Mar, Fibromyalgia M79.7 [facility] [address] [address] Feb, [facility] [address] [address] Feb, Arthritis M19.90 ; Neuropathy G62.9 and Fibromyalgia M79.7 [facility] [address] [address] Feb, [place] [address] [address] Feb, Generalized anxiety disorder F41.1 ; Mil d episode of recurrent major depressive disorder F33.0 ; Morbid obesity E66.01 and Insomnia, unspecified G47.00 [place] [address] [address] Feb, Generalized anxiety disorder F41.1 and M ild episode of recurrent major depressive disorder F33.0 [place] [address] [address] Feb, [place] [address] [address] Feb, Fibromyalgia M79.7 [place] [address] [address] Feb, Generalized anxiety disorder F41.1 and M ild episode of recurrent major depressive disorder F33.0 [place] [address] [address] Jan, Rosacea L71.9 [place] [address] [address] Jan, Rosacea L71.9 [place] [address] [address] Jan, Encounter for Medicare annual wellness e [...] excess calories E66.01 and Morbid obesity E66.01 [place] [address] [address] Jan, Generalized anxiety disorder F41.1 and M ild episode of recurrent major depressive disorder F33.0 [facility] [address] [address] Jan, Fibromyalgia M79.7 [facility] [address] [address] Jan, Generalized anxiety disorder F41.1 and M ild episode of recurrent major depressive disorder F33.0 [facility] [address] [address] Dec, Generalized anxiety disorder F41.1 and M ild episode of recurrent major depressive disorder F33.0 [place] [address] [address] Dec, Fibromyalgia M79.7 [facility] [address] [address] Dec, Generalized anxiety disorder F41.1 and M ild episode of recurrent major depressive disorder F33.0 [facility] [address] [address] Dec, Generalized anxiety disorder F41.1 and M ild episode of recurrent major depressive disorder F33.0 [facility] [address] [address] Nov, Chronic obstructive pulmonary disease, u nspecified COPD type J44.9 [facility] [address] [address] Nov, Orgasmic headache G44.82 and Morbid obes ity E66.01 [facility] [address] [address] Nov, Generalized anxiety disorder F41.1 and M ild episode of recurrent major depressive disorder F33.0 [facility] [address] [address] Nov, Generalized anxiety disorder F41.1 ; Mil d episode of recurrent major depressive disorder F33.0 ; Morbid obesity E66.01 and Insomnia, unspecified G47.00 [facility] [address] [address] Nov, Fibromyalgia M79.7 [facility] [address] [address] Nov, [facility] [address] [address] Nov, [facility] [address] [address] Nov, Flank pain R10.9 ; Venous stasis I87.8 a nd Migraine without aura and without status migrainosus, not intractable G43.009 [place] [address] [address] Nov, Generalized anxiety disorder F41.1 and M ild episode of recurrent major depressive disorder F33.0 [place] [address] [address] October, [place] [address] [address] October, Generalized anxiety disorder F41.1 and F ibromyalgia M79.7 [place] [address] [place] [address] October, [place] [address] [address] October, Generalized anxiety disorder F41.1 and M ild episode of recurrent major depressive disorder F33.0 [facility] [address] [address] October, Generalized anxiety disorder F41.1 and M ild episode of recurrent major depressive disorder F33.0 [facility] [address] [address] Sep, Mild episode of recurrent major depressi ve disorder F33.0 and Generalized anxiety disorder F41.1 [facility] [address] [address] Sep, Generalized anxiety disorder F41.1 ; Mil d episode of recurrent major depressive disorder F33.0 ; Morbid obesity E66.01 and Insomnia, unspecified G47.00 [place] [address] [address] Sep, Fibromyalgia M79.7 [facility] [address] [address] Sep, Fibromyalgia M79.7 ; Vertigo R42 ; Arthr itis M19.90 and Morbid obesity E66.01 [place] [address] [address] Sep, Morbid (severe) obesity due to excess ca lories E66.01 [place] [address] [address] Sep, Generalized anxiety disorder F41.1 and M ild episode of recurrent major depressive disorder F33.0 [place] [address] [address] Sep, Generalized anxiety disorder F41.1 and M ild episode of recurrent major depressive disorder F33.0 [place] [address] [address] Aug, Fibromyalgia M79.7 [place] [address] [address] Aug, Generalized anxiety disorder F41.1 ; Mil d episode of recurrent major depressive disorder F33.0 and Morbid obesity E66.01 [place] [address] [address] Aug, Class 1 obesity due to excess calories i n adult, unspecified BMI, unspecified whether serious comorbidity present E66.09 [place] [address] [address] Aug, Generalized anxiety disorder F41.1 and M ild episode of recurrent major depressive disorder F33.0 [place] [address] [address] Aug, Generalized anxiety disorder F41.1 and M ild episode of recurrent major depressive disorder F33.0 [facility] [address] [place] [id number] [place] [address] Jul, Fibromyalgia M79.7 [facility] [address] [place] [id number] [place] [address] Jul, Generalized anxiety disorder F41.1 and M ild episode of recurrent major depressive disorder F33.0 [facility] [address] [place] [id number] [place] [address] Jul, [facility] [address] [address] Jul, Fatigue R53.83 and BMI 40.0-44.9, adult Z68.41 [facility] [address] [place] [id number] [place] [address] Jul, Generalized anxiety disorder F41.1 and M ild episode of recurrent major depressive disorder F33.0 [facility] [address] [place] [id number] [place] [address] Jun, Fibromyalgia M79.7 [facility] [address] [address] Jun, Generalized anxiety disorder F41.1 and M ild episode of recurrent major depressive disorder F33.0 [facility] [address] [place] [id number] [place] [address] Jun, [facility] [address] [place] [id number] [place] [address] Jun, Generalized anxiety disorder F41.1 and M ild episode of recurrent major depressive disorder F33.0 [facility] [address] [facility] [address] [id number] Jun, [facility] [address] [place] [id number] [place] [address] Jun, Fibromyalgia M79.7 [facility] [address] [place] [id number] [place] [address] May, Generalized anxiety disorder F41.1 and M ild episode of recurrent major depressive disorder F33.0 [facility] [address] [address] May, Generalized anxiety disorder F41.1 and M ild episode of recurrent major depressive disorder F33.0 [facility] [address] [address] May, Fibromyalgia M79.7 [facility] [address] [address] May, Generalized anxiety disorder F41.1 and M ild episode of recurrent major depressive disorder F33.0 [facility] [address] [address] Apr, Fibromyalgia M79.7 [facility] [address] [address] Apr, [facility] [address] [address] Apr, [facility] [address] [address] Apr, Generalized anxiety disorder F41.1 and M ild episode of recurrent major depressive disorder F33.0 [facility] [address] [address] Apr, Generalized anxiety disorder F41.1 and M ild episode of recurrent major depressive disorder F33.0 [facility] [address] [address] Apr, Fibromyalgia M79.7 [facility] [address] [address] Apr, Generalized anxiety disorder F41.1 and M ild episode of recurrent major depressive disorder F33.0 [facility] [address] [address] Mar, [facility] [address] [address] Mar, Age-related osteoporosis without current pathological fracture M81.0 ; Encounter for immunization Z23 and BMI 40.0-44.9, adult Z68.41 [place] [address] [address] Mar, Generalized anxiety disorder F41.1 and M ild episode of recurrent major depressive disorder F33.0 [place] [address] [address] Mar, Fibromyalgia M79.7 [place] [address] [address] Mar, Generalized anxiety disorder F41.1 and M ild episode of recurrent major depressive disorder F33.0 [place] [address] [address] 24 Feb, 2018 Generalized anxiety disorder F41.1 and M ild episode of recurrent major depressive disorder F33.0 [place] [address] [address] 13 Feb, 2018 Fibromyalgia M79.7 [place] [address] [address] 10 Feb, 2018 Generalized anxiety disorder F41.1 and M ild episode of recurrent major depressive disorder F33.0 [place] [address] [address] 06 Feb, 2018 [place] [address] [address] Feb, Bronchospasm J98.01 and Arthritis M19.90 [place] [address] [address] Jan, Medicare annual wellness visit, initial Z00.00 ; Reactive depression F32.9 ; Reflex sympathetic dystrophy G90.50 ; Fibromyalgia M79.7 ; BMI 40.0- 44.9, adult Z68.41 ; Hypothyroidism, unspecified type E03.9 ; Gastroesophageal reflux disease, esophagitis presence not specified K21.9 ; Family history of osteoporosis Z82.62 ; Venous insufficiency I87.2 ; Arthritis M19.90 ; Mixed hyperlipidemia E78.2 and Generalized anxiety disorder F41.1 [facility] [address] [place] [id number] [place] [address] Jan, Generalized anxiety disorder F41.1 and M ild episode of recurrent major depressive disorder F33.0 [facility] [address] [place] [id number] [place] [address] Jan, Mild episode of recurrent major depressi ve disorder F33.0 and Generalized anxiety disorder F41.1 [facility] [address] [address] Jan, Fibromyalgia M79.7 [facility] [address] [address] Jan, Bronchospasm J98.01 [facility] [address] [address] Jan, [facility] [address] [address] Jan, Generalized anxiety disorder F41.1 and M ild episode of recurrent major depressive disorder F33.0 [facility] [address] [place] [id number] [place] [address] Jan, Bronchitis J40 [facility] [address] [address] Dec, Mild episode of recurrent major depressi ve disorder F33.0 [facility] [address] [address] Dec, Generalized anxiety disorder F41.1 and M ild episode of recurrent major depressive disorder F33.0 [facility] [address] [address] Dec, Fibromyalgia M79.7 ; Arthritis M19.90 an d Generalized anxiety disorder F41.1 [facility] [address] [place] [id number] [place] [address] Dec, Mild episode of recurrent major depressi ve disorder F33.0 and Generalized anxiety disorder F41.1 [facility] [address] [place] [id number] [place] [address] Dec, Fibromyalgia M79.7 [facility] [address] [address] Dec, Bronchitis J40 and Internal derangement of right knee M23.91 [facility] [address] [place] [id number] [address] Dec, Cough R05 [facility] [address] [address] Dec, Generalized anxiety disorder F41.1 and M ild episode of recurrent major depressive disorder F33.0 [place] [address] [address] Dec, [facility] [address] [place] [id number] [address] Dec, [facility] [address] [address] Dec, Mild episode of recurrent major depressi ve disorder F33.0 and Generalized anxiety disorder F41.1 [place] [address] [address] Nov, [facility] [address] [address] Nov, [facility] [address] [address] Nov, [facility] [address] [address] Nov, Internal derangement of right knee M23.9 1 [facility] [address] [address] Nov, Generalized anxiety disorder F41.1 and M ild episode of recurrent major depressive disorder F33.0 [facility] [address] [place] [id number] [place] [address] Nov, Internal derangement of right knee M23.9 1 [facility] [address] [place] [id number] [place] [address] 19 Nov, 2017 Acute right ankle pain M25.5 71 ; Acute pain of right knee M25.561 ; Acute left-sided low back pain without sciatica M54.5 and Right leg pain M79.604 [facility] [address] [address] 15 Nov, 2017 [facility] [address] [address] 14 Nov, 2017 Fibromyalgia M79.7 [facility] [address] [address] 13 Nov, 2017 Generalized anxiety disorder F41.1 and M ild episode of recurrent major depressive disorder F33.0 [facility] [address] [address] Nov, [facility] [address] [address] October, Generalized anxiety disorder F41.1 and M ild episode of recurrent major depressive disorder F33.0 [facility] [address] [address] October, Fibromyalgia M79.7 [facility] [address] [address] October, [facility] [address] [address] October, Generalized anxiety disorder F41.1 and M ild episode of recurrent major depressive disorder F33.0 [facility] [address] [address] October, [place] [address] [address] Sep, Gastroesophageal reflux disease, esophag itis presence not specified K21.9 and Abnormal laboratory test R89.9 [facility] [address] [address] Sep, Fibromyalgia M79.7 [facility] [id number] [place] [address] 17 Sep, 2017 Generalized anxiety disorder F41.1 and M ild episode of recurrent major depressive disorder F33.0 [facility] [id number] [place] [address] Sep, Epigastric pain R10.13 [facility] [address] [address] 10 Sep, 2017 Mild episode of recurrent major depressi ve disorder F33.0 and Generalized anxiety disorder F41.1 [facility] [address] [address] Sep, Abnormal laboratory test R89.9 [facility] [address] [address] Sep, Generalized anxiety disorder F41.1 and M ild episode of recurrent major depressive disorder F33.0 [facility] [address] [address] 29 Aug, 2017 Epigastric pain R10.13 and Encounter for therapeutic drug level monitoring Z51.81 [facility] [address] [facility] [id number] [place] [address] 28 Aug, 2017 Epigastric pain R10.13 and G henri-esophageal reflux disease without esophagitis K21.9 [facility] [id number] [place] [address] Aug, [facility] [address] [address] Aug, Epigastric pain R10.13 [facility] [address] [address] Aug, Fibromyalgia M79.7 [facility] [address] [address] 14 Aug, 2017 [facility] [address] [address] 14 Aug, 2017 Generalized anxiety disorder F41.1 and M ild episode of recurrent major depressive disorder F33.0 [place] [id number] [address] Aug, Epigastric pain R10.13 ; Reflex sympathe tic dystrophy G90.50 and Arthritis M19.90 [facility] [address] [address] Jul, Generalized anxiety disorder F41.1 and M ild episode of recurrent major depressive disorder F33.0 [place] [address] [address] Jul, BMI 40.0-44.9, adult Z68.41 ; Mild episo de of recurrent major depressive disorder F33.0 and Generalized anxiety disorder F41.1 [place] [address] [address] Jul, Fibromyalgia M79.7 [place] [address] [address] Jun, Mild episode of recurrent major depressi ve disorder F33.0 and Generalized anxiety disorder F41.1 [place] [address] [address] Jun, Fibromyalgia M79.7 [place] [address] [address] Jun, Generalized anxiety disorder F41.1 and M ild episode of recurrent major depressive disorder F33.0 [place] [address] [address] Jun, Generalized anxiety disorder F41.1 and M ild episode of recurrent major depressive disorder F33.0 [place] [address] [address] Jun, Generalized anxiety disorder F41.1 and M ild episode of recurrent major depressive disorder F33.0 [place] [address] [address] Jun, [place] [address] [address] Jun, Generalized anxiety disorder F41.1 and M ild episode of recurrent major depressive disorder F33.0 [facility] [address] [address] May, Fibromyalgia M79.7 [facility] [address] [address] May, Generalized anxiety disorder F41.1 and M ild episode of recurrent major depressive disorder F33.0 [facility] [address] [address] May, Mixed hyperlipidemia E78.2 ; Arthritis M 19.90 ; Reactive depression F32.9 and Hypothyroidism, unspecified type E03.9 [place] [address] [address] May, Arthritis M19.90 ; Reactive depression F 32.9 ; Mixed hyperlipidemia E78.2 and Hypothyroidism, unspecified type E03.9 [place] [address] [address] Apr, Fibromyalgia M79.7 [place] [address] [address] Apr, [place] [address] [address] Apr, Fibromyalgia M79.7 [place] [address] [address] Mar, Fibromyalgia M79.7 [place] [address] [address] Mar, [facility] [address] [address] Mar, Fibromyalgia M79.7 [facility] [address] [address] Mar, [facility] [address] [address] Feb, Reflex sympathetic dystrophy G90.50 ; Ri ght arm pain M79.601 and Fibromyalgia M79.7 [facility] [address] [address] Feb, [facility] [address] [address] Feb, Anxiety F41.9 [facility] [address] [address] Feb, Fibromyalgia M79.7 [facility] [address] [address] Feb, [facility] [address] [address] Feb, [facility] [address] [address] Jan, Temporal headache R51 [facility] [address] [address] Jan, Fibromyalgia M79.7 [facility] [address] [address] Dec, Fibromyalgia M79.7 [facility] [address] [address] Nov, Peroneal tendonitis, unspecified lateral ity M76.70 and Plantar fasciitis, bilateral M72.2 [facility] [address] [address] Nov, Fibromyalgia M79.7 [facility] [address] [address] October, Fibromyalgia M79.7 [facility] [address] [address] October, Plantar fasciitis, bilateral M72.2 and P eroneal tendonitis, unspecified laterality M76.70 [facility] [address] [address] October, Fibromyalgia M79.7 [facility] [address] [address] Sep, Anxiety F41.9 [place] [address] [address] Aug, Anxiety F41.9 and Adjustment disorder wi anxiety F43.22 [place] [address] [address] Aug, Pain of left foot M79.672 [place] [address] [address] Aug, Pain of left foot M79.672 and Pain in ri ght foot M79.[address] [address] Aug, Arthritis M19.90 ; Reactive depression F 32.9 ; Fibromyalgia M79.7 ; Rosacea L71.9 ; Pain in right foot M79.671 and Pain of left foot M79.672 [place] [address] [address] Aug, Anxiety F41.9 ; Adjustment disorder with anxiety F43.22 and Reactive depression F32.[address] [address] Aug, Right elbow pain M25.[address] [address] Aug, Plantar wart of right foot B07.0 and Act inic keratosis L57.[address] [address] Aug, Fibromyalgia M79.[address] [address] Jul, Arthritis M19.90 ; Hypothyroidism, unspe cified type E03.9 ; Reactive depression F32.9 and Venous insufficiency I87.[address] [address] Jul, Gastroesophageal reflux disease, esophag itis presence not specified K21.9 [place] [address] [address] Jul, Reflex sympathetic dystrophy G90.50 [place] [address] [address] 17 Jul, 2016 Anxiety F41.9 ; Adjustment disorder with anxiety F43.22 and Reactive depression F32.9 [place] [address] [address] 15 Jul, 2016 [place] [address] [address] Jul, Right elbow pain M25.521 [place] [address] [address] Jun, Fibromyalgia M79.7 [place] [address] [address] Jun, Anxiety F41.9 ; Adjustment disorder with anxiety F43.22 and Reactive depression F32.9 [place] [address] [address] Jun, [place] [address] [address] Jun, Atypical chest pain R07.89 and Adjustmen t disorder with anxiety F43.22 [place] [address] [address] [id number] Jun, Chest pain, unspecified type R07.9 [place] [address] [address] Jun, Fibromyalgia M79.7 [place] [address] [address] May, Anxiety F41.9 [place] [address] [address] May, [place] [address] [address] May, Right elbow pain M25.521 [facility] [address] [address] Apr, Reflex sympathetic dystrophy G90.50 and Encounter for immunization Z23 [facility] [address] [address] Apr, [facility] [address] [address] 14 Mar, 2016 [facility] [address] [address] Feb, [facility] [address] [address] Feb, [facility] [address] [address] Jan, [facility] [address] [address] Jan, Right elbow pain M25.521 and Right wrist pain M25.531 [facility] [address] [address] Jan, [facility] [address] [address] Dec, Seborrheic keratoses L82.1 [facility] [address] [address] Dec, [facility] [address] [address] Dec, [facility] [address] [address] Dec, [facility] [address] [address] Dec, Fibromyalgia M79.7 and Hypothyroidism, u nspecified type E03.9 [facility] [address] [address] Dec, Seborrheic keratoses L82.1 [place] [address] [address] Dec, [place] [address] [address] Dec, [place] [address] [address] Nov, Sebaceous cyst L72.3 [place] [address] [address] October, Breast cancer screening Z12.[address] [address] October, Fibromyalgia M79.7 ; Hypothyroidism, uns pecified type E03.9 and Reflex sympathetic dystrophy G90.50 [place] [address] [address] October, Reflex sympathetic dystrophy G90.50 ; Fi bromyalgia M79.7 and Hypothyroidism, unspecified type E03.9 IMMUNIZATIONS No Known Immunizations SOCIAL HISTORY Never Assessed REASON FOR VISIT controlled 09/15 PLAN OF CARE VITAL SIGNS MEDICATIONS Medication Instructions Dosage Frequency Start Date End Date Duration S tatus Hydrocodone-Acetaminophen 7.5-325 MG Orally 3 times a [...] Currently is wearing a heart monitor, [facility] [employer] is checking heart. Surgical History tonsillectomy Surgical History appendectomy Surgical History section Surgical History hysterectomy, abdominal Surgical History carpal tunnel release Surgical History cholecystectomy Surgical History colon resection Hospitalization History surgeries Hospitalization History Chest Pain-[facility] 07/02/16 Hospitalization History Chest [facility] - [facility] 10/06/17
--- OUTSIDE RECORDS SUMMARY | 2019-09-03 00:09 | XMS REPORT | Continuity of Care Document ---
Author Organization Unknown Address Unknown Phone Unavailable Allergies Active Description Code Type Severity Reaction Onset Reported/Identified Relationship to Patient Clinical Status Yes meperidine [id number] Drug Allerg y Moderate HIVES 07/24/2010 Yes Penicillins [id number] Drug Aller gy Moderate HIVES 07/24/2010 Yes codeine [id number] Drug Allergy Mild PALPITATIONS 07/24/2010 Yes methocarbamol [id number] Noe g Allergy Unknown HOSTILE/AGGRESS 07/02/2016 Yes baclofen [id number] Drug Allergy Unknown dizzy, nausea 09/07/2017 Yes divalproex sodium [id number] Drug Allergy Unknown N/A 09/07/2017 Yes metaxalone [id number] Drug Allerg y Unknown "bad for me" 09/07/2017 Yes tizanidine [id number] Drug Allerg y Unknown drowsy 09/07/2017 Medications There is no data. Problems Date Dx Coded Attending Type Code Diagnosis Diagnosed By 05/19/1320 MESSI VELA, CHRISTIAN Tellez Ot M94.26 1 CHONDROMALACIA, RIGHT KNEE 07/24/2010 Ot 784.0 HEAD ACHE 11/25/2015 JOE BAI MD Ot Z12.31 ENCNTR [...] MALIGNANT NE 07/03/2016 LEONID HIRSCH MD Ot E03 .9 HYPOTHYROIDISM, UNSPECIFIED 07/03/2016 LEONID HIRSCH MD Ot K21 .9 GASTRO-ESOPHAGEAL REFLUX DISEASE WITHOUT 07/03/2016 LEONID HIRSCH MD Ot M79 .7 FIBROMYALGIA 07/03/2016 LEONID HIRSCH MD Ot R07 .9 CHEST PAIN, UNSPECIFIED 07/03/2016 LEONID HIRSCH MD Ot Z87.891 PERSONAL HISTORY OF NICOTINE DEPENDENCE 07/08/2016 LEONID HIRSCH MD Ot R07 .9 CHEST PAIN, UNSPECIFIED 07/08/2016 LEONID HIRSCH MD Ot R07 .9 CHEST PAIN, UNSPECIFIED 07/30/2016 LEONID HIRSCH MD Ot R07 .9 CHEST PAIN, UNSPECIFIED 08/10/2016 LEONID HIRSCH MD Ot R07 .9 CHEST PAIN, UNSPECIFIED 01/29/2017 ARUNA MARTINEZ MD, [...] Z87.891 PERSONAL HISTORY OF NICOTINE DEPENDENCE 01/29/2017 MICHELLE VELA, ARUNA Bear Ot Z90.49 ACQUIRED ABSENCE OF OTHER SPECIFIED [...] MASS AND LUMP, RIGHT 05/24/2017 RIVERS DO, DARYL Ot M25.5 11 PAIN IN RIGHT SHOULDER 05/24/2017 RIVERS DO, DARYL Ot M79.2 NEURALGIA AND NEURITIS, UNSPECIFIED 05/24/2017 RIVERS DO, DARYL Ot R13.1 0 DYSPHAGIA, UNSPECIFIED 05/24/2017 RIVERS DO, DARYL Ot R20.8 OTHER DISTURBANCES OF SKIN SENSATION 06/14/2017 RIVERS DO, DARYL Ot M25.5 11 PAIN IN RIGHT SHOULDER 06/14/2017 RIVERS DO, DARYL Ot M79.2 NEURALGIA AND NEURITIS, UNSPECIFIED 06/14/2017 RIVERS DO, DARYL Ot R13.1 0 DYSPHAGIA, UNSPECIFIED 06/14/2017 RIVERS DO, DARYL Ot R20.8 OTHER DISTURBANCES OF SKIN SENSATION 06/29/2017 RIVERS DO, DARYL Ot M25.5 11 PAIN IN RIGHT SHOULDER 06/29/2017 RIVERS DO, DARYL Ot M79.2 NEURALGIA AND NEURITIS, UNSPECIFIED 06/29/2017 RIVERS DO, DARYL Ot R13.1 0 DYSPHAGIA, UNSPECIFIED 06/29/2017 RIVERS DO, DARYL Ot R20.8 OTHER DISTURBANCES OF SKIN SENSATION 06/30/2017 RIVERS DO, DARYL Ot R13.1 0 DYSPHAGIA, UNSPECIFIED 07/12/2017 RIVERS DO, DARYL Ot R13.1 0 DYSPHAGIA, UNSPECIFIED 09/07/2017 GREY MCKEON APRN Ot E03 .9 HYPOTHYROIDISM, UNSPECIFIED 09/07/2017 GREY MCKEON APRN Ot F32 .9 MAJOR DEPRESSIVE DISORDER, SINGLE EPISOD 09/07/2017 GREY MCKEON APRN Ot K21 .9 GASTRO-ESOPHAGEAL REFLUX DISEASE WITHOUT 09/07/2017 GREY MCKEON APRN Ot N39 .0 URINARY TRACT INFECTION, SITE NOT SPECIF 09/07/2017 GREY MCKEON APRN Ot R51 HEADACHE 09/07/2017 GREY MCKEON APRN Ot Z87.19 PERSONAL HISTORY OF OTHER DISEASES OF 09/07/2017 GREY MCKEON APRN Ot Z87.59 PERSONAL HISTORY OF COMP OF PREG, CHLDBR 09/07/2017 GREY MCKEON APRN Ot Z88 .0 ALLERGY STATUS TO PENICILLIN 09/07/2017 GREY MCKEON APRN Ot Z88 .1 ALLERGY STATUS TO OTHER ANTIBIOTIC AGENT 09/07/2017 GREY MCKEON APRN Ot Z88 .5 ALLERGY STATUS TO NARCOTIC AGENT STATUS 09/07/2017 GREY MCKEON APRN Ot Z88 .6 ALLERGY STATUS TO ANALGESIC AGENT STATUS 09/07/2017 GREY MCKEON APRN Ot Z90.49 ACQUIRED ABSENCE OF OTHER SPECIFIED PART 09/07/2017 GREY MCKEON APRN Ot Z90.89 ACQUIRED ABSENCE OF OTHER ORGANS 09/09/2017 GREY MCKEON APRN Ot E03 .9 HYPOTHYROIDISM, UNSPECIFIED 09/09/2017 GREY MCKEON APRN Ot F32 .9 MAJOR DEPRESSIVE DISORDER, SINGLE EPISOD 09/09/2017 GREY MCKEON APRN Ot K21 .9 GASTRO-ESOPHAGEAL REFLUX DISEASE WITHOUT 09/09/2017 GREY MCKEON APRN Ot N39 .0 URINARY TRACT INFECTION, SITE NOT SPECIF 09/09/2017 GREY MCKEON APRN Ot R51 HEADACHE 09/09/2017 GREY MCKEON APRN Ot Z87.19 PERSONAL HISTORY OF OTHER DISEASES OF 09/09/2017 MCKEON, PETER J EMERGENCY DOCTOR Ot Z87.59 PERSONAL HISTORY OF COMP OF PREG, CHLDBR 09/09/2017 GREY MCKEON EMERGENCY DOCTOR Ot Z88 .0 ALLERGY STATUS TO PENICILLIN 09/09/2017 GREY MCKEON EMERGENCY DOCTOR Ot Z88 .1 ALLERGY STATUS TO OTHER ANTIBIOTIC AGENT 09/09/2017 GREY MCKEON APRN Ot Z88 .5 ALLERGY STATUS TO NARCOTIC AGENT STATUS 09/09/2017 GREY MCKEON APRN Ot Z88 .6 ALLERGY STATUS TO ANALGESIC AGENT STATUS 09/09/2017 GREY MCKEON APRN Ot Z90.49 ACQUIRED ABSENCE OF OTHER SPECIFIED PART 09/09/2017 GREY MCKEON APRN Ot Z90.89 ACQUIRED ABSENCE OF OTHER ORGANS 09/21/2017 GREY MCKEON APRN Ot E03 .9 HYPOTHYROIDISM, UNSPECIFIED 09/21/2017 GREY MCKEON APRN Ot F32 .9 MAJOR DEPRESSIVE DISORDER, SINGLE EPISOD 09/21/2017 GREY MCKEON APRN Ot K21 .9 GASTRO-ESOPHAGEAL REFLUX DISEASE WITHOUT 09/21/2017 GREY MCKEON APRN Ot R10.84 GENERALIZED ABDOMINAL PAIN 09/21/2017 GREY MCKEON APRN Ot Z87.19 PERSONAL HISTORY OF OTHER DISEASES OF TH 09/21/2017 GREY MCKEON APRN Ot Z87.59 PERSONAL HISTORY OF COMP OF PREG, CHLDBR 09/21/2017 GREY MCKEON APRN Ot Z88 .0 ALLERGY STATUS TO PENICILLIN 09/21/2017 GREY MCKEON APRN Ot Z88 .1 ALLERGY STATUS TO OTHER ANTIBIOTIC AGENT 09/21/2017 GREY MCKEON APRN Ot Z88 .6 ALLERGY STATUS TO ANALGESIC AGENT STATUS 09/21/2017 GREY MCKEON APRN Ot Z88 .8 ALLERGY STATUS TO OTH DRUG/MEDS/BIOL SUB 09/21/2017 GREY MCKEON EMERGENCY DOCTOR Ot Z90.49 ACQUIRED ABSENCE OF OTHER SPECIFIED PART 09/21/2017 GREY MCKEON APRN Ot Z90.89 ACQUIRED ABSENCE OF OTHER ORGANS 09/23/2017 GREY MCKEON APRN Ot E03 .9 HYPOTHYROIDISM, UNSPECIFIED 09/23/2017 GREY MCKEON APRN Ot F32 .9 MAJOR DEPRESSIVE DISORDER, SINGLE EPISOD 09/23/2017 GREY MCKEON APRN Ot K21 .9 GASTRO-ESOPHAGEAL REFLUX DISEASE WITHOUT 09/23/2017 GREY MCKEON EMERGENCY DOCTOR Ot R10.84 GENERALIZED ABDOMINAL PAIN 09/23/2017 GREY MCKEON EMERGENCY DOCTOR Ot Z87.19 PERSONAL HISTORY OF OTHER DISEASES OF TH 09/23/2017 GREY MCKEON EMERGENCY DOCTOR Ot Z87.59 PERSONAL HISTORY OF COMP OF PREG, CHLDBR 09/23/2017 GREY MCKEON EMERGENCY DOCTOR Ot Z88 .0 ALLERGY STATUS TO PENICILLIN 09/23/2017 GREY MCKEON EMERGENCY DOCTOR Ot Z88 .1 ALLERGY STATUS TO OTHER ANTIBIOTIC AGENT 09/23/2017 GREY MCKEON EMERGENCY DOCTOR Ot Z88 .6 ALLERGY STATUS TO ANALGESIC AGENT STATUS 09/23/2017 GREY MCKEON EMERGENCY DOCTOR Ot Z88 .8 ALLERGY STATUS TO OTH DRUG/MEDS/BIOL SUB 09/23/2017 GREY MCKEON EMERGENCY DOCTOR Ot Z90.49 ACQUIRED ABSENCE OF OTHER SPECIFIED PART 09/23/2017 GREY MCKEON EMERGENCY DOCTOR Ot Z90.89 ACQUIRED ABSENCE OF OTHER ORGANS 10/07/2017 KAITY MENCHACA MD Ot E03 .9 HYPOTHYROIDISM, UNSPECIFIED 10/07/2017 KAITY MENCHACA MD N Ot F32 .9 MAJOR DEPRESSIVE DISORDER, SINGLE EPISOD 10/07/2017 KAITY MENCHACA MD Ot F41 .9 ANXIETY DISORDER, UNSPECIFIED 10/07/2017 KAITY MENCHACA MD N Ot K59.09 OTHER CONSTIPATION 10/07/2017 KAITY MENCHACA MD N Ot M79 .7 FIBROMYALGIA 10/07/2017 KAITY MENCHACA MD N Ot R07 .9 CHEST PAIN, UNSPECIFIED 10/07/2017 KAITY MENCHACA MD N Ot E03 .9 HYPOTHYROIDISM, UNSPECIFIED 10/07/2017 KAITY MENCHACA MD N Ot F32 .9 MAJOR DEPRESSIVE DISORDER, SINGLE EPISOD 10/07/2017 KAITY MENCHACA MD N Ot F41 .9 ANXIETY DISORDER, UNSPECIFIED 10/07/2017 KAITY MENCHACA MD N Ot K59.09 OTHER CONSTIPATION 10/07/2017 KAITY MENCHACA MD N Ot M79 .7 FIBROMYALGIA 10/07/2017 KAITY MENCHACA MD N Ot R07 .9 CHEST PAIN, UNSPECIFIED 12/06/2017 ANA MARIA SCHULTZ EMERGENCY DOCTOR Ot M79.604 PAIN IN RIGHT LEG 12/07/2017 ANA MARIA SCHULTZ EMERGENCY DOCTOR Ot M25.471 EFFUSION, RIGHT ANKLE 12/07/2017 ANA MARIA SCHULTZ EMERGENCY DOCTOR Ot M25.561 PAIN IN RIGHT KNEE 12/12/2017 ANA MARIA SCHULTZ EMERGENCY DOCTOR Ot M25.471 EFFUSION, RIGHT ANKLE 12/12/2017 ANA MARIA SCHULTZ EMERGENCY DOCTOR Ot M25.561 PAIN IN RIGHT KNEE 12/22/2017 ANA MARIA SCHULTZ EMERGENCY DOCTOR Ot M25.471 EFFUSION, RIGHT ANKLE 12/22/2017 ANA MARIA SCHULTZ EMERGENCY DOCTOR Ot M25.561 PAIN IN RIGHT KNEE 02/23/2018 JOE BAI MD Ot Z00.00 ENCNTR FOR GENERAL ADULT MEDICAL EXAM W02/23/2018 JOE BAI MD Ot Z82.62 FAMILY HISTORY OF OSTEOPOROSIS 02/23/2018 JOE BAI MD Ot Z12.31 ENCNTR SCREEN MAMMOGRAM FOR MALIGNANT NE 02/23/2018 JOYCELYN VELA, LEONID Hidalgo Ot R07 .9 CHEST PAIN, UNSPECIFIED 02/23/2018 JOE BAI MD Ot M79.601 PAIN IN RIGHT ARM 02/23/2018 FROYLAN VELA, JOSE MANUEL Lopes Ot M79.621 PAIN IN RIGHT UPPER ARM 02/23/2018 FROYLAN VELA, JOSE MANUEL Lopes Ot R22.31 LOCALIZED SWELLING, MASS AND LUMP, RIGHT 02/23/2018 RIVERS DO, DARYL Ot R13.1 0 DYSPHAGIA, UNSPECIFIED 02/23/2018 SCHULTZANA MARIA ALLEN EMERGENCY DOCTOR Ot M25.471 EFFUSION, RIGHT ANKLE 02/23/2018 SCHULTZANA MARIA ALLEN EMERGENCY DOCTOR Ot M25.561 PAIN IN RIGHT KNEE 02/23/2018 [...] G43.909 MIGRAINE, UNSP, NOT INTRACTABLE, WITHOUT 03/07/2018 CINDY VIGILIS Ot J45.909 UNSPECIFIED ASTHMA, UNCOMPLICATED 03/07/2018 CINDY VIGILIS Ot K21.9 GASTRO-ESOPHAGEAL REFLUX DISEASE WITHOUT 03/07/2018 CINDY VIGILIS Ot M25.561 PAIN IN RIGHT KNEE 03/07/2018 CINDY VIGILIS Ot S83.91XA SPRAIN OF UNSPECIFIED SITE OF RIGHT KNEE 03/07/2018 CINDY VIGILIS Ot W19.XXXA UNSPECIFIED FALL, INITIAL ENCOUNTER 03/07/2018 KRISTYN VIGIL Ot Z79.82 DOPE HEATER (CURRENT) USE OF ASPIRIN 03/07/2018 CINDY VIGILIS Ot Z82.49 FAMILY HX OF ISCHEM HEART DIS AND OTH DI 03/07/2018 KRISTYN VIGIL Ot Z87.19 PERSONAL HISTORY OF OTHER DISEASES OF TH 03/07/2018 KRISTYN VIGIL Ot Z88.0 ALLERGY STATUS TO PENICILLIN 03/07/2018 CINDY VIGILIS Ot Z88.5 ALLERGY STATUS TO NARCOTIC AGENT STATUS 03/07/2018 KRISTYN VIGIL Ot Z88.6 ALLERGY STATUS TO ANALGESIC AGENT STATUS 03/07/2018 CINDY VIGILIS Ot Z88.8 ALLERGY STATUS TO OTH DRUG/MEDS/BIOL SUB 03/07/2018 CINDY VIGILIS Ot Z90.89 ACQUIRED ABSENCE OF OTHER ORGANS 03/07/2018 CINDY VIGILIS Ot Z98.890 OTHER SPECIFIED POSTPROCEDURAL STATES 03/09/2018 KRISTYN VIGIL Ot E03.9 HYPOTHYROIDISM, UNSPECIFIED 03/09/2018 KRISTYN VIGIL Ot F32.9 MAJOR DEPRESSIVE DISORDER, SINGLE EPISOD 03/09/2018 CINDY VIGILIS Ot F41.9 ANXIETY DISORDER, UNSPECIFIED 03/09/2018 CINDY VIGILIS Ot G43.909 MIGRAINE, UNSP, NOT INTRACTABLE, WITHOUT 03/09/2018 KRISTYN VIGIL Ot J45.909 UNSPECIFIED ASTHMA, UNCOMPLICATED 03/09/2018 KRISTYN VIGIL Ot K21.9 GASTRO-ESOPHAGEAL REFLUX DISEASE WITHOUT 03/09/2018 CINDY VIGILIS Ot M25.561 PAIN IN RIGHT KNEE 03/09/2018 CINDY VIGILIS Ot S83.91XA SPRAIN OF UNSPECIFIED SITE OF RIGHT KNEE 03/09/2018 CINDY VIGILIS Ot W19.XXXA UNSPECIFIED FALL, INITIAL ENCOUNTER 03/09/2018 KRISTYN VIGIL Ot Z79.82 DOPE HEATER (CURRENT) USE OF ASPIRIN 03/09/2018 KRISTYN VIGIL Ot Z82.49 FAMILY HX OF ISCHEM HEART DIS AND OTH DI 03/09/2018 KRISTYN VIGIL Ot Z87.19 PERSONAL HISTORY OF OTHER DISEASES OF TH 03/09/2018 MARYSEKRISTYN HANEY Ot Z88.0 ALLERGY STATUS TO PENICILLIN 03/09/2018 CINDY VIGILIS Ot Z88.5 ALLERGY STATUS TO NARCOTIC AGENT STATUS 03/09/2018 CINDY VIGILIS Ot Z88.6 ALLERGY STATUS TO ANALGESIC AGENT STATUS 03/09/2018 CINDY VIGILIS Ot Z88.8 ALLERGY STATUS TO OTH DRUG/MEDS/BIOL SUB 03/09/2018 KRISTYN VIGIL Ot Z90.89 ACQUIRED ABSENCE OF OTHER ORGANS 03/09/2018 KRISTYN VIGIL Ot Z98.890 OTHER SPECIFIED POSTPROCEDURAL STATES 03/15/2018 BHUMIKA VELA, JOE Austin Ot M81 .0 AGE-RELATED OSTEOPOROSIS W/O CURRENT PAT 03/15/2018 JOE BAI MD Ot Z12.31 ENCNTR SCREEN MAMMOGRAM FOR MALIGNANT NE 03/15/2018 JOE BAI MD Ot Z82.62 FAMILY HISTORY OF OSTEOPOROSIS 10/21/2018 GREY MCKEON APRN Ot E03 .9 HYPOTHYROIDISM, UNSPECIFIED 10/21/2018 GREY MCKEON APRN Ot F32 .9 MAJOR DEPRESSIVE DISORDER, SINGLE EPISOD 10/21/2018 GREY MCKEON APRN Ot F41 .9 ANXIETY DISORDER, UNSPECIFIED 10/21/2018 GREY MCKEON APRN Ot G43.909 MIGRAINE, UNSP, NOT INTRACTABLE, WITHOUT 10/21/2018 GREY MCKEON APRN Ot J45.909 UNSPECIFIED ASTHMA, UNCOMPLICATED 10/21/2018 GREY MCKEON APRN Ot K21 .9 GASTRO-ESOPHAGEAL REFLUX DISEASE WITHOUT 10/21/2018 GREY MCKEON APRN Ot K58 .9 IRRITABLE BOWEL SYNDROME WITHOUT DIARRHE 10/21/2018 GREY MCKEON APRN Ot M79 .7 FIBROMYALGIA 10/21/2018 GREY MCKEON APRN Ot N39 .0 URINARY TRACT INFECTION, SITE NOT SPECIF 10/21/2018 GREY MCKEON APRN Ot R10.31 RIGHT LOWER QUADRANT PAIN 10/21/2018 GREY MCKEON APRN Ot Z79.82 DOPE HEATER (CURRENT) USE OF ASPIRIN 10/21/2018 GREY MCKEON APRN Ot Z82.49 FAMILY HX OF ISCHEM HEART DIS AND OTH DI 10/21/2018 GREY MCKEON APRN Ot Z87.19 PERSONAL HISTORY OF OTHER DISEASES OF TH 10/21/2018 GREY MCKEON APRN Ot Z87.891 PERSONAL HISTORY OF NICOTINE DEPENDENCE 10/21/2018 GREY MCKEON APRN Ot Z88 .0 ALLERGY STATUS TO PENICILLIN 10/21/2018 GREY MCKEON APRN Ot Z88 .5 ALLERGY STATUS TO NARCOTIC AGENT STATUS 10/21/2018 GREY MCKEON APRN Ot Z88 .6 ALLERGY STATUS TO ANALGESIC AGENT STATUS 10/21/2018 GREY MCKEON APRN Ot Z88 .8 ALLERGY STATUS TO OT DRUG/MEDS/BIOL SUB 10/21/2018 GREY MCKEON APRN Ot Z90.49 ACQUIRED ABSENCE OF OTHER SPECIFIED PART 10/21/2018 GREY MCKEON APRN Ot Z90.89 ACQUIRED ABSENCE OF OTHER ORGANS 10/21/2018 GREY MCKEON APRN Ot Z98.890 OTHER SPECIFIED POSTPROCEDURAL STATES 10/24/2018 GREY MCKEON APRN Ot E03 .9 HYPOTHYROIDISM, UNSPECIFIED 10/24/2018 GREY MCKEON APRN Ot F32 .9 MAJOR DEPRESSIVE DISORDER, SINGLE EPISOD 10/24/2018 GREY MCKEON APRN Ot F41 .9 ANXIETY DISORDER, UNSPECIFIED 10/24/2018 GREY MCKEON APRN Ot G43.909 MIGRAINE, UNSP, NOT INTRACTABLE, WITHOUT 10/24/2018 GREY MCKEON APRN Ot J45.909 UNSPECIFIED ASTHMA, UNCOMPLICATED 10/24/2018 GREY MCKEON APRN Ot K21 .9 GASTRO-ESOPHAGEAL REFLUX DISEASE WITHOUT 10/24/2018 GREY MCKEON APRN Ot K58 .9 IRRITABLE BOWEL SYNDROME WITHOUT DIARRHE 10/24/2018 GREY MCKEON APRN Ot M79 .7 FIBROMYALGIA 10/24/2018 GREY MCKEON APRN Ot N39 .0 URINARY TRACT INFECTION, SITE NOT SPECIF 10/24/2018 GREY MCKEON APRN Ot R10.31 RIGHT LOWER QUADRANT PAIN 10/24/2018 GREY MCKEON APRN Ot Z79.82 DOPE HEATER (CURRENT) USE OF ASPIRIN 10/24/2018 GREY MCKEON EMERGENCY DOCTOR Ot Z82.49 FAMILY HX OF ISCHEM HEART DIS AND OTH DI 10/24/2018 GREY MCKEON EMERGENCY DOCTOR Ot Z87.19 PERSONAL HISTORY OF OTHER DISEASES OF TH 10/24/2018 GREY MCKEON APRN Ot Z87.891 PERSONAL HISTORY OF NICOTINE DEPENDENCE 10/24/2018 GREY MCKEON APRN Ot Z88 .0 ALLERGY STATUS TO PENICILLIN 10/24/2018 GREY MCKEON APRN Ot Z88 .5 ALLERGY STATUS TO NARCOTIC AGENT STATUS 10/24/2018 GREY MCKEON APRN Ot Z88 .6 ALLERGY STATUS TO ANALGESIC AGENT STATUS 10/24/2018 GREY MCKEON APRN Ot Z88 .8 ALLERGY STATUS TO OT DRUG/MEDS/BIOL SUB 10/24/2018 GREY MCKEON APRN Ot Z90.49 ACQUIRED ABSENCE OF OTHER SPECIFIED PART 10/24/2018 GREY MCKEON APRN Ot Z90.89 ACQUIRED ABSENCE OF OTHER ORGANS 10/24/2018 GREY MCKEON APRN Ot Z98.890 OTHER SPECIFIED POSTPROCEDURAL STATES 11/16/2018 SANDRO DE LA ROSA MD Ot E03. 9 HYPOTHYROIDISM, UNSPECIFIED 11/16/2018 SANDRO DE LA ROSA MD Ot F32. 9 MAJOR DEPRESSIVE DISORDER, SINGLE EPISOD 11/16/2018 SANDRO DE LA ROSA MD Ot F41. 9 ANXIETY DISORDER, UNSPECIFIED 11/16/2018 SANDRO DE LA ROSA MD Ot G43.909 MIGRAINE, UNSP, NOT INTRACTABLE, WITHOUT 11/16/2018 SANDRO DE LA ROSA MD Ot J45.909 UNSPECIFIED ASTHMA, UNCOMPLICATED 11/16/2018 SANDRO DE LA ROSA MD Ot K21. 9 GASTRO-ESOPHAGEAL REFLUX DISEASE WITHOUT 11/16/2018 SANDRO DE LA ROSA MD Ot K58. 9 IRRITABLE BOWEL SYNDROME WITHOUT DIARRHE 11/16/2018 SANDRO DE LA ROSA MD Ot M16. 11 UNILATERAL PRIMARY OSTEOARTHRITIS, RIGHT 11/16/2018 SANDRO DE LA ROSA MD Ot M79. 7 FIBROMYALGIA 11/16/2018 SANDRO DE LA ROSA MD Ot M79. 89 OTHER SPECIFIED SOFT TISSUE DISORDERS 11/16/2018 SANDRO DE LA ROSA MD Ot R60. 0 LOCALIZED EDEMA 11/16/2018 SANDRO DE LA ROSA MD Ot Z79. 82 DOPE HEATER (CURRENT) USE OF ASPIRIN 11/16/2018 SANDRO DE LA ROSA MD Ot Z82. 49 FAMILY HX OF ISCHEM HEART DIS AND OTH DI 11/16/2018 SANDRO DE LA ROSA MD Ot Z87. 19 PERSONAL HISTORY OF OTHER DISEASES OF TH 11/16/2018 SANDRO DE LA ROSA MD Ot Z87.891 PERSONAL HISTORY OF NICOTINE DEPENDENCE 11/16/2018 SANDRO DE LA ROSA MD Ot Z88. 0 ALLERGY STATUS TO PENICILLIN 11/16/2018 SANDRO DE LA ROSA MD Ot Z88. 5 ALLERGY STATUS TO NARCOTIC AGENT STATUS 11/16/2018 SANDRO DE LA ROSA MD Ot Z88. 8 ALLERGY STATUS TO OTH DRUG/MEDS/BIOL SUB 11/16/2018 SANDRO DE LA ROSA MD Ot Z90. 49 ACQUIRED ABSENCE OF OTHER SPECIFIED PART 11/16/2018 SANDRO DE LA ROSA MD Ot Z90. 89 ACQUIRED ABSENCE OF OTHER ORGANS 11/16/2018 SANDRO DE LA ROSA MD Ot Z98.890 OTHER SPECIFIED POSTPROCEDURAL STATES 11/20/2018 SANDRO DE LA ROSA MD Ot E03. 9 HYPOTHYROIDISM, UNSPECIFIED 11/20/2018 SANDRO DE LA ROSA MD Ot F32. 9 MAJOR DEPRESSIVE DISORDER, SINGLE EPISOD 11/20/2018 SANDRO DE LA ROSA MD Ot F41. 9 ANXIETY DISORDER, UNSPECIFIED 11/20/2018 SANDRO DE LA ROSA MD Ot G43.909 MIGRAINE, UNSP, NOT INTRACTABLE, WITHOUT 11/20/2018 SANDRO DE LA ROSA MD Ot J45.909 UNSPECIFIED ASTHMA, UNCOMPLICATED 11/20/2018 SANDRO DE LA ROSA MD Ot K21. 9 GASTRO-ESOPHAGEAL REFLUX DISEASE WITHOUT 11/20/2018 SANDRO DE LA ROSA MD Ot K58. 9 IRRITABLE BOWEL SYNDROME WITHOUT DIARRHE 11/20/2018 SANDRO DE LA ROSA MD Ot M16. 11 UNILATERAL PRIMARY OSTEOARTHRITIS, RIGHT 11/20/2018 SANDRO DE LA ROSA MD Ot M79. 7 FIBROMYALGIA 11/20/2018 SANDRO DE LA ROSA MD Ot M79. 89 OTHER SPECIFIED SOFT TISSUE DISORDERS 11/20/2018 SANDRO DE LA ROSA MD Ot R60. 0 LOCALIZED EDEMA 11/20/2018 SANDRO DE LA ROSA MD Ot Z79. 82 DOPE HEATER (CURRENT) USE OF ASPIRIN 11/20/2018 SANDRO DE LA ROSA MD Ot Z82. 49 FAMILY HX OF ISCHEM HEART DIS AND OTH DI 11/20/2018 SANDRO DE LA ROSA MD Ot Z87. 19 PERSONAL HISTORY OF OTHER DISEASES OF TH 11/20/2018 SANDRO DE LA ROSA MD Ot Z87.891 PERSONAL HISTORY OF NICOTINE DEPENDENCE 11/20/2018 SANDRO DE LA ROSA MD Ot Z88. 0 ALLERGY STATUS TO PENICILLIN 11/20/2018 SANDRO DE LA ROSA MD Ot Z88. 5 ALLERGY STATUS TO NARCOTIC AGENT STATUS 11/20/2018 SANDRO DE LA ROSA MD Ot Z88. 8 ALLERGY STATUS TO OTH DRUG/MEDS/BIOL SUB 11/20/2018 SANDRO DE LA ROSA MD Ot Z90. 49 ACQUIRED ABSENCE OF OTHER SPECIFIED PART 11/20/2018 SANDRO DE LA ROSA MD Ot Z90. 89 ACQUIRED ABSENCE OF OTHER ORGANS 11/20/2018 SANDRO DE LA ROSA MD Ot Z98.890 OTHER SPECIFIED POSTPROCEDURAL STATES 11/20/2018 [place], Lisa D Ot G47.1 0 HYPERSOMNIA, UNSPECIFIED 11/21/2018 [place], Lisa D Ot G47.1 0 HYPERSOMNIA, UNSPECIFIED 11/22/2018 [place], Lisa D Ot G47.1 0 HYPERSOMNIA, UNSPECIFIED 11/22/2018 [place], Lisa D Ot R06.8 3 SNORING 11/27/2018 [place], Lisa D Ot G47.1 0 HYPERSOMNIA, UNSPECIFIED 11/27/2018 [place], Lisa D Ot R06.8 3 SNORING 03/19/2019 MESSI VELA, CHRISTIAN Tellez Ot M94.26 1 CHONDROMALACIA, RIGHT KNEE 05/30/2019 JOE BAI MD Ot R07 .9 CHEST PAIN, UNSPECIFIED 06/19/2019 JOE BAI MD Ot R07 .9 CHEST PAIN, UNSPECIFIED 07/09/2019 SHAWN VELA, Moses BURDICK Ot E66 .9 OBESITY, UNSPECIFIED 07/09/2019 SHAWN VELA, Moses BURDICK Ot R00 .2 PALPITATIONS 07/09/2019 SHAWN VELA, Moses BURDICK Ot R07 .2 PRECORDIAL PAIN 07/10/2019 SHAWN VELA, Moses BURDICK Ot E66 .9 OBESITY, UNSPECIFIED 07/10/2019 SHAWN VELA, Moses BUDRICK Ot R00 .2 PALPITATIONS 07/10/2019 SHAWN VELA, Moses BURDICK Ot R07 .2 PRECORDIAL PAIN 07/27/2019 SHAWN VELA, Moses BURDICK Ot E66 .9 OBESITY, UNSPECIFIED 07/27/2019 SHAWN VELA, Moses BURDICK Ot R00 .2 PALPITATIONS 07/27/2019 SHAWN VELA, Moses BURDICK Ot R07 .2 PRECORDIAL PAIN 07/27/2019 LEONID HIRSCH MD Ot G44.82 HEADACHE ASSOCIATED WITH SEXUAL ACTIVITY 07/27/2019 LEONID HIRSCH MD Ot J32 .0 CHRONIC MAXILLARY SINUSITIS 07/30/2019 LEONID HIRSCH MD Ot G44.82 HEADACHE ASSOCIATED WITH SEXUAL ACTIVITY 07/30/2019 LEONID HIRSCH MD Ot J32 .0 CHRONIC MAXILLARY SINUSITIS 08/14/2019 SHAWN VELA, Moses BURDICK Ot E66 .9 OBESITY, UNSPECIFIED 08/14/2019 Moses ESCOBAR MD Ot R00 .2 PALPITATIONS 08/14/2019 SHANW VELA, Moses BURDICK Ot R07 .2 PRECORDIAL PAIN Procedures There is no data. Results Test Result Range Complete blood count (CBC) with automate d white blood cell (WBC) differential - 07/02/16 21:52 Blood leukocytes automated count (number/volume) 10.2 10*3/uL 4.3-11.0 Blood erythrocytes automated count (number/volume) 4.25 10*6/uL 4.35-5.85 Venous blood hemoglobin measurement (mass/volume) 13.2 g/dL 11.5-16.0 Blood hematocrit (volume fraction) 39 % 35-52 Automated erythrocyte mean corpuscular volume 93 [ foz_us] 80-99 Automated erythrocyte mean corpuscular h emoglobin (mass per erythrocyte) 31 pg 25-34 Automated erythrocyte mean corpuscular h emoglobin concentration measurement (mass/volume) 34 g/dL 32-36 Automated erythrocyte distribution width ratio 12. 7 % 10.0- 14.5 Automated blood platelet count [...] 10*3 1.0-4.0 Blood monocytes automated count (number/volume) 1. 2 10*3 0.0-1.0 Automated eosinophil count 0.2 10*3/uL 0 .0-0.3 Automated blood basophil count (count/volume) 0.0 10*3/uL 0.0-0.1 PT panel in platelet poor plasma by coag ulation assay - 07/02/16 21:52 Prothrombin time (PT) in platelet poor plasma by coagu lation assay 12.9 s 12.2-14.7 INR in platelet poor plasma or blood by coagulation as say 1.0 0.8-1.4 Activated partial thromboplastin time (a PTT) in platelet poor plasma bycoagulation assay - 07/02/16 21:52 Activated partial thromboplastin time (a PTT) in platelet poor plasma bycoagulation assay 35 s 24-35 Comprehensive metabolic panel - 07/02/16 21:52 Serum or plasma sodium measurement (moles/volume) 136 mmol/L 135-145 Serum or plasma potassium measurement (moles/volume) 3.4 mmol/L 3.6-5.0 Serum or plasma chloride measurement (moles/volume) 107 mmol/L 98-107 Carbon dioxide 17 mmol/L 21-32 Serum or plasma anion gap determination (moles/volume) 12 mmol/L 5-14 Serum or plasma urea nitrogen measurement (mass/volume ) 14 mg/dL 7-18 Serum or plasma creatinine measurement (mass/volume) 0.83 mg/dL 0.60-1.30 Serum or plasma urea nitrogen/creatinine mass ratio 17 NRG Serum or plasma creatinine measurement w ith calculation of estimated glomerular filtration rate > NRG Serum or plasma glucose measurement (mass/volume) 105 mg/dL 70-105 Serum or plasma calcium measurement (mass/volume) 9.3 mg/dL 8.5-10.1 Serum or plasma total bilirubin measurement (mass/volu me) 0.2 mg/dL 0.1-1.0 Serum or plasma alkaline phosphatase sameer surement (enzymatic activity/volume) 92 U/L 40-136 Serum or plasma aspartate aminotransfera se measurement (enzymatic activity/volume) 20 U/L 5-34 Serum or plasma alanine aminotransferase measurement (enzymatic activity/volume) 13 U/L 0-55 Serum or plasma protein measurement (mass/volume) 7.4 g/dL 6.4-8.2 Serum or plasma albumin measurement (mass/volume) 4.2 g/dL 3.2-4.5 Serum or plasma creatine kinase measurem ent (enzymatic activity/volume) - 07/02/16 21:52 Serum or plasma creatine kinase measurem ent (enzymatic activity/volume) 89 U/L 29-168 Serum or plasma creatine kinase MB measu rement (enzymatic activity/volume) - 07/02/16 21:52 Serum or plasma creatine kinase MB measu rement (enzymatic activity/volume) 1.4 ng/mL <6.6 Serum or plasma troponin i.cardiac measu rement (mass/volume) - 07/02/16 21:52 Serum or plasma troponin i.cardiac measurement (mass/v olume) < ng/mL <0.30 Serum or plasma amylase measurement (enz ymatic activity/volume) - 07/02/16 21:52 Serum or plasma amylase measurement (enzymatic activit y/volume) 67 U/L 25-125 Lipase - 07/02/16 21:52 Lipase 45 U/L 8-78 Serum or plasma lithium measurement (mol es/volume) - 07/02/16 21:52 BNP level < pg/mL <100.0 Complete blood count (CBC) with automate d white blood cell (WBC) differential - 07/03/16 03:48 Blood leukocytes automated count (number/volume) 8.1 10*3/uL 4.3-11.0 Blood erythrocytes automated count (number/volume) 3.91 10*6/uL 4.35-5.85 Venous blood hemoglobin measurement (mass/volume) 12.2 g/dL 11.5-16.0 Blood hematocrit (volume fraction) 36 % 35-52 Automated erythrocyte mean corpuscular volume 93 [ foz_us] 80-99 Automated erythrocyte mean corpuscular h emoglobin (mass per erythrocyte) 31 pg 25-34 Automated erythrocyte mean corpuscular h emoglobin concentration measurement (mass/volume) 34 g/dL 32-36 Automated erythrocyte distribution width ratio 12. 7 % 10.0- 14.5 Automated blood platelet count [...] 10*3 1.0-4.0 Blood monocytes automated count (number/volume) 0. 9 10*3 0.0-1.0 Automated eosinophil count 0.2 10*3/uL 0 .0-0.3 Automated blood basophil count (count/volume) 0.0 10*3/uL 0.0-0.1 Comprehensive metabolic panel - 07/03/16 03:48 Serum or plasma sodium measurement (moles/volume) 137 mmol/L 135-145 Serum or plasma potassium measurement (moles/volume) 4.0 mmol/L 3.6-5.0 Serum or plasma chloride measurement (moles/volume) 109 mmol/L 98-107 Carbon dioxide 17 mmol/L 21-32 Serum or plasma anion gap determination (moles/volume) 11 mmol/L 5-14 Serum or plasma urea nitrogen measurement (mass/volume ) 15 mg/dL 7-18 Serum or plasma creatinine measurement (mass/volume) 0.71 mg/dL 0.60-1.30 Serum or plasma urea nitrogen/creatinine mass ratio 21 NRG Serum or plasma creatinine measurement w ith calculation of estimated glomerular filtration rate > NRG Serum or plasma glucose measurement (mass/volume) 103 mg/dL 70-105 Serum or plasma calcium measurement (mass/volume) 9.0 mg/dL 8.5-10.1 Serum or plasma total bilirubin measurement (mass/volu me) 0.3 mg/dL 0.1-1.0 Serum or plasma alkaline phosphatase sameer surement (enzymatic activity/volume) 88 U/L 40-136 Serum or plasma aspartate aminotransfera se measurement (enzymatic activity/volume) 19 U/L 5-34 Serum or plasma alanine aminotransferase measurement (enzymatic activity/volume) 10 U/L 0-55 Serum or plasma protein measurement (mass/volume) 6.8 g/dL 6.4-8.2 Serum or plasma albumin measurement (mass/volume) 3.8 g/dL 3.2-4.5 Serum or plasma phosphate measurement (m ass/volume) - 07/03/16 03:48 Serum or plasma phosphate measurement (mass/volume) 4.1 mg/dL 2.3-4.7 Magnesium - 07/03/16 03:48 Magnesium 2.1 mg/dL 1.8-2.4 Serum or plasma creatine kinase measurem ent (enzymatic activity/volume) - 07/03/16 03:48 Serum or plasma creatine kinase measurem ent (enzymatic activity/volume) 74 U/L 29-168 Serum or plasma troponin i.cardiac measu rement (mass/volume) - 07/03/16 03:48 Serum or plasma troponin i.cardiac measurement (mass/v olume) < ng/mL <0.30 Myoglobin, serum - 07/03/16 03:48 Myoglobin, serum 24.8 ng/mL 10.0-92.0 Lipid 1996 panel - 07/03/16 03:48 Serum or plasma triglyceride measurement (mass/volume) 90 mg/dL <150 Serum or plasma cholesterol measurement (mass/volume) 194 mg/dL < 200 Serum or plasma cholesterol in HDL measurement (mass/v olume) 51 mg/dL 40-60 Cholesterol in LDL [mass/volume] in serum or plasma by direct assay 126 mg/dL 1-129 Serum or plasma cholesterol in VLDL measurement (mass/ volume) 18 mg/dL 5-40 Complete urinalysis with reflex to cultu re - 07/03/16 05:00 Urine color determination YELLOW NRG Urine clarity determination CLEAR NR G Urine pH measurement by test strip 6 5-9 Specific gravity of urine by test strip 1.020 1.016-1.022 Urine protein assay by test strip, semi-quantitative NEGATIVE NEGATIVE Urine glucose detection by automated test strip NE GATIVE NEGATIVE Erythrocytes detection in urine sediment by light micr oscopy NEGATIVE NEGATIVE Urine ketones detection by automated test strip NE GATIVE NEGATIVE Urine nitrite detection by test strip POSITIVE NEGATIVE Urine total bilirubin detection by test strip NEGA TIVE NEGATIVE Urine urobilinogen measurement by automated test strip (mass/volume) NORMAL NORMAL Urine leukocyte esterase detection by dipstick 2+ NEGATIVE Automated urine sediment erythrocyte cou nt by microscopy (number/high power field) NONE NRG Automated urine sediment leukocyte count by microscopy (number/high power field) [HPF] NRG Bacteria detection in urine sediment by light microsco py LARGE NRG Squamous epithelial cells detection in u rine sediment by light microscopy 2-5 NRG Crystals detection in urine sediment by light microsco py NONE NRG Casts detection in urine sediment by light microscopy NONE NRG Mucus detection in urine sediment by light microscopy NEGATIVE NRG Complete urinalysis with reflex to culture YES NRG Bacterial urine culture - 07/03/16 05:00 Bacterial urine culture [id number] NRG COLONY COUNT 10,000/ML - 100,000/ML NRG FTX;REPORTABLE SEE COMMENT NRG URINE CULTURE RESULTS PLUS NRG Bacterial susceptibility panel - 7 05:00 Gentamicin susceptibility test by minimum inhibitory c oncentration <= NRG Trimethoprim/sulfamethoxazole susceptibi lity test by minimum inhibitoryconcentration <= NRG Ampicillin susceptibility test by minimum inhibitory c oncentration R NRG Tobramycin susceptibility test by minimum inhibitory c oncentration <= NRG Cefazolin susceptibility test by minimum inhibitory co ncentration <= NRG Ceftriaxone susceptibility test by minimum inhibitory concentration <= NRG Ampicillin/sulbactam susceptibility test by minimum inhibitory concentration 4 NRG Piperacillin/tazobactam susceptibility t est by minimum inhibitory concentration <= NRG Ciprofloxacin susceptibility test by minimum inhibitor y concentration <= NRG Meropenem susceptibility test by minimum inhibitory co ncentration <= NRG Nitrofurantoin susceptibility test by mi nimum inhibitory concentration <= NRG Aztreonam susceptibility test by minimum inhibitory co ncentration <= NRG Extended spectrum beta lactamase (ESBL) producing bacteria susceptibility test by minimum inhibitory concentration - NRG Complete blood count (CBC) with automate d white blood cell (WBC) differential - 01/29/17 16:39 Blood leukocytes automated count (number/volume) 9.5 10*3/uL 4.3-11.0 Blood erythrocytes automated count (number/volume) 3.91 10*6/uL 4.35-5.85 Venous blood hemoglobin measurement (mass/volume) 12.0 g/dL 11.5-16.0 Blood hematocrit (volume fraction) 36 % 35-52 Automated erythrocyte mean corpuscular volume 92 [ foz_us] 80-99 Automated erythrocyte mean corpuscular h emoglobin (mass per erythrocyte) 31 pg 25-34 Automated erythrocyte mean corpuscular h emoglobin concentration measurement (mass/volume) 33 g/dL 32-36 Automated erythrocyte distribution width ratio 13. 2 % 10.0- 14.5 Automated blood platelet count [...] 10*3 1.0-4.0 Blood monocytes automated count (number/volume) 1. 0 10*3 0.0-1.0 Automated eosinophil count 0.4 10*3/uL 0 .0-0.3 Automated blood basophil count (count/volume) 0.0 10*3/uL 0.0-0.1 Erythrocyte sedimentation rate by shannan gren method - 01/29/17 16:39 Erythrocyte sedimentation rate by westergren method 31 mm 0- 30 Comprehensive metabolic panel - 01/29/17 16:39 Serum or plasma sodium measurement (moles/volume) 134 mmol/L 135-145 Serum or plasma potassium measurement (moles/volume) 3.7 mmol/L 3.6-5.0 Serum or plasma chloride measurement (moles/volume) 106 mmol/L 98-107 Carbon dioxide 18 mmol/L 21-32 Serum or plasma anion gap determination (moles/volume) 10 mmol/L 5-14 Serum or plasma urea nitrogen measurement (mass/volume ) 13 mg/dL 7-18 Serum or plasma creatinine measurement (mass/volume) 0.75 mg/dL 0.60-1.30 Serum or plasma urea nitrogen/creatinine mass ratio 17 NRG Serum or plasma creatinine measurement w ith calculation of estimated glomerular filtration rate > NRG Serum or plasma glucose measurement (mass/volume) 93 mg/dL 70-105 Serum or plasma calcium measurement (mass/volume) 9.1 mg/dL 8.5-10.1 Serum or plasma total bilirubin measurement (mass/volu me) 0.3 mg/dL 0.1-1.0 Serum or plasma alkaline phosphatase sameer surement (enzymatic activity/volume) 95 U/L 40-136 Serum or plasma aspartate aminotransfera se measurement (enzymatic activity/volume) 18 U/L 5-34 Serum or plasma alanine aminotransferase measurement (enzymatic activity/volume) 9 U/L 0-55 Serum or plasma protein measurement (mass/volume) 6.8 g/dL 6.4-8.2 Serum or plasma albumin measurement (mass/volume) 3.8 g/dL 3.2-4.5 Serum or plasma C reactive protein measu rement (mass/volume) - 01/29/17 16:39 Serum or plasma C reactive protein measurement (mass/v olume) 1.03 mg/dL 0.00-0.50 Complete urinalysis with reflex to cultu re - 01/29/17 16:40 Urine color determination YELLOW NRG Urine clarity determination CLEAR NR G Urine pH measurement by test strip 7 5-9 Specific gravity of urine by test strip 1.015 1.016-1.022 Urine protein assay by test strip, semi-quantitative NEGATIVE NEGATIVE Urine glucose detection by automated test strip NE GATIVE NEGATIVE Erythrocytes detection in urine sediment by light micr oscopy NEGATIVE NEGATIVE Urine ketones detection by automated test strip NE GATIVE NEGATIVE Urine nitrite detection by test strip POSITIVE NEGATIVE Urine total bilirubin detection by test strip NEGA TIVE NEGATIVE Urine urobilinogen measurement by automated test strip (mass/volume) NORMAL NORMAL Urine leukocyte esterase detection by dipstick 3+ NEGATIVE Automated urine sediment erythrocyte cou nt by microscopy (number/high power field) NONE NRG Automated urine sediment leukocyte count by microscopy (number/high power field) [HPF] NRG Bacteria detection in urine sediment by light microsco py LARGE NRG Squamous epithelial cells detection in u rine sediment by light microscopy 2-5 NRG Crystals detection in urine sediment by light microsco py NONE NRG Casts detection in urine sediment by light microscopy NONE NRG Mucus detection in urine sediment by light microscopy NEGATIVE NRG Complete urinalysis with reflex to culture YES NRG Bacterial urine culture - 01/29/17 16:40 Bacterial urine culture [id number] NRG COLONY COUNT 10,000/ML - 100,000/ML NRG FTX;REPORTABLE SENSITIVITY REPORTED 01/30 15:00 NRG Bacterial susceptibility panel - 7 16:40 Gentamicin susceptibility test by minimum inhibitory c oncentration <= NRG Trimethoprim/sulfamethoxazole susceptibi lity test by minimum inhibitoryconcentration >= NRG Ampicillin susceptibility test by minimum inhibitory c oncentration <= NRG Tobramycin susceptibility test by minimum inhibitory c oncentration <= NRG Cefazolin susceptibility test by minimum inhibitory co ncentration <= NRG Ceftriaxone susceptibility test by minimum inhibitory concentration <= NRG Ampicillin/sulbactam susceptibility test by minimum inhibitory concentration <= NRG Piperacillin/tazobactam susceptibility t est by minimum inhibitory concentration <= NRG Ciprofloxacin susceptibility test by minimum inhibitor y concentration <= NRG Meropenem susceptibility test by minimum inhibitory co ncentration <= NRG Nitrofurantoin susceptibility test by mi nimum inhibitory concentration <= NRG Aztreonam susceptibility test by minimum inhibitory co ncentration <= NRG Extended spectrum beta lactamase (ESBL) producing bacteria susceptibility test by minimum inhibitory concentration - [facility] [id number] - 04/04/17 18:15 Serum or plasma urea nitrogen measurement (mass/volume ) 12 mg/dL 7-18 Serum or plasma creatinine measurement (mass/volume) 0.82 mg/dL 0.60-1.30 Serum or plasma urea nitrogen/creatinine mass ratio 15 NRG Serum or plasma creatinine measurement w ith calculation of estimated glomerular filtration rate > NR LIPID PANEL - 06/01/17 09:23 CHOLESTEROL, TOTAL 221 mg/dL <200 HDL CHOLESTEROL 61 mg/dL >50 TRIGLYCERIDES 165 mg/dL <150 LDL-CHOLESTEROL 130 mg/dL (calc) NRG CHOL/HDLC RATIO 3.6 (calc) <5.0 NON HDL CHOLESTEROL 160 mg/dL (calc) <13 0 Complete blood count (CBC) with automate d white blood cell (WBC) differential - 03/21/18 19:30 Blood leukocytes automated count (number/volume) 9.6 10*3/uL 4.3-11.0 Blood erythrocytes automated count (number/volume) 4.04 10*6/uL 4.35-5.85 Venous blood hemoglobin measurement (mass/volume) 12.7 g/dL 11.5-16.0 Blood hematocrit (volume fraction) 38 % 35-52 Automated erythrocyte mean corpuscular volume 95 [ foz_us] 80-99 Automated erythrocyte mean corpuscular h emoglobin (mass per erythrocyte) 31 pg 25-34 Automated erythrocyte mean corpuscular h emoglobin concentration measurement (mass/volume) 33 g/dL 32-36 Automated erythrocyte distribution width ratio 12. 8 % 10.0- 14.5 Automated blood platelet count [...] 10*3 1.0-4.0 Blood monocytes automated count (number/volume) 1. 0 10*3 0.0-1.0 Automated eosinophil count 0.3 10*3/uL 0 .0-0.3 Automated blood basophil count (count/volume) 0.0 10*3/uL 0.0-0.1 Comprehensive metabolic panel - 09/07/17 19:30 Serum or plasma sodium measurement (moles/volume) 133 mmol/L 135-145 Serum or plasma potassium measurement (moles/volume) 3.7 mmol/L 3.6-5.0 Serum or plasma chloride measurement (moles/volume) 104 mmol/L 98-107 Carbon dioxide 22 mmol/L 21-32 Serum or plasma anion gap determination (moles/volume) 7 mmol/L 5-14 Serum or plasma urea nitrogen measurement (mass/volume ) 13 mg/dL 7-18 Serum or plasma creatinine measurement (mass/volume) 0.78 mg/dL 0.60-1.30 Serum or plasma urea nitrogen/creatinine mass ratio 17 NRG Serum or plasma creatinine measurement w ith calculation of estimated glomerular filtration rate > NRG Serum or plasma glucose measurement (mass/volume) 99 mg/dL 70-105 Serum or plasma calcium measurement (mass/volume) 9.2 mg/dL 8.5-10.1 Serum or plasma total bilirubin measurement (mass/volu me) 0.2 mg/dL 0.1-1.0 Serum or plasma alkaline phosphatase sameer surement (enzymatic activity/volume) 97 U/L 40-136 Serum or plasma aspartate aminotransfera se measurement (enzymatic activity/volume) 22 U/L 5-34 Serum or plasma alanine aminotransferase measurement (enzymatic activity/volume) 10 U/L 0-55 Serum or plasma protein measurement (mass/volume) 6.9 g/dL 6.4-8.2 Serum or plasma albumin measurement (mass/volume) 3.9 g/dL 3.2-4.5 Complete urinalysis with reflex to cultu re - 09/07/17 19:50 Urine color determination YELLOW NRG Urine clarity determination CLEAR NR G Urine pH measurement by test strip 6.5 5-9 Specific gravity of urine by test strip 1.010 1.016-1.022 Urine protein assay by test strip, semi-quantitative NEGATIVE NEGATIVE Urine glucose detection by automated test strip NE GATIVE NEGATIVE Erythrocytes detection in urine sediment by light micr oscopy NEGATIVE NEGATIVE Urine ketones detection by automated test strip NE GATIVE NEGATIVE Urine nitrite detection by test strip NEGATIVE NEGATIVE Urine total bilirubin detection by test strip NEGA TIVE NEGATIVE Urine urobilinogen measurement by automated test strip (mass/volume) NORMAL NORMAL Urine leukocyte esterase detection by dipstick 3+ NEGATIVE Automated urine sediment erythrocyte cou nt by microscopy (number/high power field) NONE NRG Automated urine sediment leukocyte count by microscopy (number/high power field) [HPF] NRG Bacteria detection in urine sediment by light microsco py TRACE NRG Squamous epithelial cells detection in u rine sediment by light microscopy 0-2 NRG Crystals detection in urine sediment by light microsco py NONE NRG Casts detection in urine sediment by light microscopy NONE NRG Mucus detection in urine sediment by light microscopy NEGATIVE NRG Complete urinalysis with reflex to culture YES NRG Bacterial urine culture - 09/07/17 19:50 Bacterial urine culture [id number] NRG COLONY COUNT 10,000/ML - 100,000/ML NRG FTX;REPORTABLE SEE COMMENT NRG URINE CULTURE RESULTS PLUS NRG PDM - AMPHETAMINES W/ REFLEX d/l ISOMERS - 09/15/17 12:21 Prescribed Drug 1 Hydrocodone NRG COMMENT NRG Amphetamine NEGATIVE ng/mL <250 medMATCH Amphetamine CONSISTENT NRG Methamphetamine NEGATIVE ng/mL <250 medMATCH Methamphetamine CONSISTENT NRG Complete urinalysis with reflex to cultu re - 09/21/17 16:30 Urine color determination YELLOW NRG Urine clarity determination CLEAR NR G Urine pH measurement by test strip 8 5-9 Specific gravity of urine by test strip 1.015 1.016-1.022 Urine protein assay by test strip, semi-quantitative NEGATIVE NEGATIVE Urine glucose detection by automated test strip NE GATIVE NEGATIVE Erythrocytes detection in urine sediment by light micr oscopy NEGATIVE NEGATIVE Urine ketones detection by automated test strip NE GATIVE NEGATIVE Urine nitrite detection by test strip NEGATIVE NEGATIVE Urine total bilirubin detection by test strip NEGA TIVE NEGATIVE Urine urobilinogen measurement by automated test strip (mass/volume) NORMAL NORMAL Urine leukocyte esterase detection by dipstick 2+ NEGATIVE Automated urine sediment erythrocyte cou nt by microscopy (number/high power field) [HPF] NRG Automated urine sediment leukocyte count by microscopy (number/high power field) [HPF] NRG Bacteria detection in urine sediment by light microsco py TRACE NRG Squamous epithelial cells detection in u rine sediment by light microscopy 2-5 NRG Crystals detection in urine sediment by light microsco py NONE NRG Casts detection in urine sediment by light microscopy NONE NRG Mucus detection in urine sediment by light microscopy NEGATIVE NRG Complete urinalysis with reflex to culture NO NRG Complete blood count (CBC) with automate d white blood cell (WBC) differential - 09/21/17 17:20 Blood leukocytes automated count (number/volume) 8.9 10*3/uL 4.3-11.0 Blood erythrocytes automated count (number/volume) 3.83 10*6/uL 4.35-5.85 Venous blood hemoglobin measurement (mass/volume) 12.0 g/dL 11.5-16.0 Blood hematocrit (volume fraction) 36 % 35-52 Automated erythrocyte mean corpuscular volume 93 [ foz_us] 80-99 Automated erythrocyte mean corpuscular h emoglobin (mass per erythrocyte) 31 pg 25-34 Automated erythrocyte mean corpuscular h emoglobin concentration measurement (mass/volume) 34 g/dL 32-36 Automated erythrocyte distribution width ratio 12. 7 % 10.0- 14.5 Automated blood platelet count [...] 10*3 1.0-4.0 Blood monocytes automated count (number/volume) 1. 0 10*3 0.0-1.0 Automated eosinophil count 0.3 10*3/uL 0 .0-0.3 Automated blood basophil count (count/volume) 0.0 10*3/uL 0.0-0.1 Comprehensive metabolic panel - 09/21/17 17:20 Serum or plasma sodium measurement (moles/volume) 140 mmol/L 135-145 Serum or plasma potassium measurement (moles/volume) 3.9 mmol/L 3.6-5.0 Serum or plasma chloride measurement (moles/volume) 111 mmol/L 98-107 Carbon dioxide 25 mmol/L 21-32 Serum or plasma anion gap determination (moles/volume) 4 mmol/L 5-14 Serum or plasma urea nitrogen measurement (mass/volume ) 10 mg/dL 7-18 Serum or plasma creatinine measurement (mass/volume) 0.71 mg/dL 0.60-1.30 Serum or plasma urea nitrogen/creatinine mass ratio 14 NRG Serum or plasma creatinine measurement w ith calculation of estimated glomerular filtration rate > NRG Serum or plasma glucose measurement (mass/volume) 94 mg/dL 70-105 Serum or plasma calcium measurement (mass/volume) 9.1 mg/dL 8.5-10.1 Serum or plasma total bilirubin measurement (mass/volu me) 0.1 mg/dL 0.1-1.0 Serum or plasma alkaline phosphatase sameer surement (enzymatic activity/volume) 92 U/L 40-136 Serum or plasma aspartate aminotransfera se measurement (enzymatic activity/volume) 20 U/L 5-34 Serum or plasma alanine aminotransferase measurement (enzymatic activity/volume) 12 U/L 0-55 Serum or plasma protein measurement (mass/volume) 6.6 g/dL 6.4-8.2 Serum or plasma albumin measurement (mass/volume) 3.8 g/dL 3.2-4.5 Lipase - 09/21/17 17:20 Lipase 31 U/L 8-78 Complete blood count (CBC) with automate d white blood cell (WBC) differential - 10/06/17 11:35 Blood leukocytes automated count (number/volume) 7.3 10*3/uL 4.3-11.0 Blood erythrocytes automated count (number/volume) 4.15 10*6/uL 4.35-5.85 Venous blood hemoglobin measurement (mass/volume) 12.8 g/dL 11.5-16.0 Blood hematocrit (volume fraction) 38 % 35-52 Automated erythrocyte mean corpuscular volume 92 [ foz_us] 80-99 Automated erythrocyte mean corpuscular h emoglobin (mass per erythrocyte) 31 pg 25-34 Automated erythrocyte mean corpuscular h emoglobin concentration measurement (mass/volume) 34 g/dL 32-36 Automated erythrocyte distribution width ratio 13. 0 % 10.0- 14.5 Automated blood platelet count [...] 10*3 1.0-4.0 Blood monocytes automated count (number/volume) 0. 8 10*3 0.0-1.0 Automated eosinophil count 0.3 10*3/uL 0 .0-0.3 Automated blood basophil count (count/volume) 0.0 10*3/uL 0.0-0.1 PT panel in platelet poor plasma by coag ulation assay - 10/06/17 11:35 Prothrombin time (PT) in platelet poor plasma by coagu lation assay 12.7 s 12.2-14.7 INR in platelet poor plasma or blood by coagulation as say 0.9 0.8-1.4 Activated partial thromboplastin time (a PTT) in platelet poor plasma bycoagulation assay - 10/06/17 11:35 Activated partial thromboplastin time (a PTT) in platelet poor plasma bycoagulation assay 34 s 24-35 Comprehensive metabolic panel - 10/06/17 11:35 Serum or plasma sodium measurement (moles/volume) 135 mmol/L 135-145 Serum or plasma potassium measurement (moles/volume) 3.7 mmol/L 3.6-5.0 Serum or plasma chloride measurement (moles/volume) 108 mmol/L 98-107 Carbon dioxide 19 mmol/L 21-32 Serum or plasma anion gap determination (moles/volume) 8 mmol/L 5-14 Serum or plasma urea nitrogen measurement (mass/volume ) 13 mg/dL 7-18 Serum or plasma creatinine measurement (mass/volume) 0.74 mg/dL 0.60-1.30 Serum or plasma urea nitrogen/creatinine mass ratio 18 NRG Serum or plasma creatinine measurement w ith calculation of estimated glomerular filtration rate > NRG Serum or plasma glucose measurement (mass/volume) 126 mg/dL 70-105 Serum or plasma calcium measurement (mass/volume) 9.2 mg/dL 8.5-10.1 Serum or plasma total bilirubin measurement (mass/volu me) 0.2 mg/dL 0.1-1.0 Serum or plasma alkaline phosphatase sameer surement (enzymatic activity/volume) 91 U/L 40-136 Serum or plasma aspartate aminotransfera se measurement (enzymatic activity/volume) 25 U/L 5-34 Serum or plasma alanine aminotransferase measurement (enzymatic activity/volume) 12 U/L 0-55 Serum or plasma protein measurement (mass/volume) 7.2 g/dL 6.4-8.2 Serum or plasma albumin measurement (mass/volume) 4.1 g/dL 3.2-4.5 Magnesium - 10/06/17 11:35 Magnesium 2.2 mg/dL 1.8-2.4 Serum or plasma troponin i.cardiac measu rement (mass/volume) - 10/06/17 11:35 Serum or plasma troponin i.cardiac measurement (mass/v olume) < ng/mL <0.30 Myoglobin, serum - 10/06/17 11:35 Myoglobin, serum 31.7 ng/mL 10.0-92.0 Fibrin D-dimer FEU measurement in platel et poor plasma (mass/volume) - 10/06/17 11:35 Fibrin D-dimer FEU measurement in platelet poor plasma (mass/volume) 0.46 ug/mL 0.00-0.49 Serum or plasma troponin i.cardiac measu rement (mass/volume) - 10/06/17 17:35 Serum or plasma troponin i.cardiac measurement (mass/v olume) < ng/mL <0.30 Serum or plasma troponin i.cardiac measu rement (mass/volume) - 10/06/17 23:40 Serum or plasma troponin i.cardiac measurement (mass/v olume) < ng/mL <0.30 Lipid 1996 panel - 10/07/17 06:15 Serum or plasma triglyceride measurement (mass/volume) 158 mg/dL <150 Serum or plasma cholesterol measurement (mass/volume) 172 mg/dL < 200 Serum or plasma cholesterol in HDL measurement (mass/v olume) 43 mg/dL 40-60 Cholesterol in LDL [mass/volume] in serum or plasma by direct assay 103 mg/dL 1-129 Serum or plasma cholesterol in VLDL measurement (mass/ volume) 32 mg/dL 5-40 Complete blood count (CBC) with automate d white blood cell (WBC) differential - 03/07/18 18:40 Blood leukocytes automated count (number/volume) 10.0 10*3/uL 4.3-11.0 Blood erythrocytes automated count (number/volume) 3.90 10*6/uL 4.35-5.85 Venous blood hemoglobin measurement (mass/volume) 12.3 g/dL 11.5-16.0 Blood hematocrit (volume fraction) 36 % 35-52 Automated erythrocyte mean corpuscular volume 92 [ foz_us] 80-99 Automated erythrocyte mean corpuscular h emoglobin (mass per erythrocyte) 32 pg 25-34 Automated erythrocyte mean corpuscular h emoglobin concentration measurement (mass/volume) 34 g/dL 32-36 Automated erythrocyte distribution width ratio 13. 7 % 10.0- 14.5 Automated blood platelet count [...] 10*3 1.0-4.0 Blood monocytes automated count (number/volume) 1. 0 10*3 0.0-1.0 Automated eosinophil count 0.3 10*3/uL 0 .0-0.3 Automated blood basophil count (count/volume) 0.0 10*3/uL 0.0-0.1 Fibrin D-dimer FEU measurement in platel et poor plasma (mass/volume) - 03/07/18 18:40 Fibrin [...] 5-14 Serum or plasma urea nitrogen measurement (mass/volume ) 12 mg/dL 7-18 Serum or plasma creatinine measurement (mass/volume) 0.78 mg/dL 0.60-1.30 Serum or plasma urea nitrogen/creatinine mass ratio 15 NRG Serum or plasma creatinine measurement w ith calculation of estimated glomerular filtration rate > NRG Serum or plasma glucose measurement (mass/volume) 91 mg/dL 70-105 Serum or plasma calcium measurement (mass/volume) 9.5 mg/dL 8.5-10.1 Serum or plasma total bilirubin measurement (mass/volu me) 0.2 mg/dL 0.1-1.0 Serum or plasma alkaline phosphatase sameer surement (enzymatic activity/volume) 97 U/L 40-136 Serum or plasma aspartate aminotransfera se measurement (enzymatic activity/volume) 26 U/L 5-34 Serum or plasma alanine aminotransferase measurement (enzymatic activity/volume) 11 U/L 0-55 Serum or plasma protein measurement (mass/volume) 7.3 g/dL 6.4-8.2 Serum or plasma albumin measurement (mass/volume) 4.1 g/dL 3.2-4.5 CALCIUM CORRECTED 9.4 mg/dL 8.5-10.1 Complete blood count (CBC) with automate d white blood cell (WBC) differential - 10/21/18 11:55 Blood leukocytes automated count (number/volume) 9.7 10*3/uL 4.3-11.0 Blood erythrocytes automated count (number/volume) 4.21 10*6/uL 4.35-5.85 Venous blood hemoglobin measurement (mass/volume) 12.9 g/dL 11.5-16.0 Blood hematocrit (volume fraction) 39 % 35-52 Automated erythrocyte mean corpuscular volume 93 [ foz_us] 80-99 Automated erythrocyte mean corpuscular h emoglobin (mass per erythrocyte) 31 pg 25-34 Automated erythrocyte mean corpuscular h emoglobin concentration measurement (mass/volume) 33 g/dL 32-36 Automated erythrocyte distribution width ratio 13. 3 % 10.0- 14.5 Automated blood platelet count [...] 10*3 1.0-4.0 Blood monocytes automated count (number/volume) 0. 9 10*3 0.0-1.0 Automated eosinophil count 0.2 10*3/uL 0 .0-0.3 Automated blood basophil count (count/volume) 0.0 10*3/uL 0.0-0.1 Complete urinalysis with reflex to cultu re - 10/21/18 11:55 Urine color determination YELLOW NRG Urine clarity determination CLEAR NR G Urine pH measurement by test strip 7 5-9 Specific gravity of urine by test strip 1.010 1.016-1.022 Urine protein assay by test strip, semi-quantitative NEGATIVE NEGATIVE Urine glucose detection by automated test strip NE GATIVE NEGATIVE Erythrocytes detection in urine sediment by light micr oscopy NEGATIVE NEGATIVE Urine ketones detection by automated test strip NE GATIVE NEGATIVE Urine nitrite detection by test strip NEGATIVE NEGATIVE Urine total bilirubin detection by test strip NEGA TIVE NEGATIVE Urine urobilinogen measurement by automated test strip (mass/volume) NORMAL NORMAL Urine leukocyte esterase detection by dipstick 3+ NEGATIVE Automated urine sediment erythrocyte cou nt by microscopy (number/high power field) NONE NRG Automated urine sediment leukocyte count by microscopy (number/high power field) [HPF] NRG Bacteria detection in urine sediment by light microsco py FEW NRG Squamous epithelial cells detection in u rine sediment by light microscopy 5-10 NRG Crystals detection in urine sediment by light microsco py NONE NRG Casts detection in urine sediment by light microscopy NONE NRG Mucus detection in urine sediment by light microscopy NEGATIVE NRG Complete urinalysis with reflex to culture YES NRG Comprehensive metabolic panel - 10/21/18 11:55 Serum or plasma sodium measurement (moles/volume) 140 mmol/L 135-145 Serum or plasma potassium measurement (moles/volume) 3.7 mmol/L 3.6-5.0 Serum or plasma chloride measurement (moles/volume) 110 mmol/L 98-107 Carbon dioxide 20 mmol/L 21-32 Serum or plasma anion gap determination (moles/volume) 10 mmol/L 5-14 Serum or plasma urea nitrogen measurement (mass/volume ) 18 mg/dL 7-18 Serum or plasma creatinine measurement (mass/volume) 0.83 mg/dL 0.60-1.30 Serum or plasma urea nitrogen/creatinine mass ratio 22 NRG Serum or plasma creatinine measurement w ith calculation of estimated glomerular filtration rate > NRG Serum or plasma glucose measurement (mass/volume) 100 mg/dL 70-105 Serum or plasma calcium measurement (mass/volume) 9.7 mg/dL 8.5-10.1 Serum or plasma total bilirubin measurement (mass/volu me) 0.2 mg/dL 0.1-1.0 Serum or plasma alkaline phosphatase sameer surement (enzymatic activity/volume) 96 U/L 40-136 Serum or plasma aspartate aminotransfera se measurement (enzymatic activity/volume) 19 U/L 5-34 Serum or plasma alanine aminotransferase measurement (enzymatic activity/volume) 11 U/L 0-55 Serum or plasma protein measurement (mass/volume) 7.4 g/dL 6.4-8.2 Serum or plasma albumin measurement (mass/volume) 4.1 g/dL 3.2-4.5 CALCIUM CORRECTED 9.6 mg/dL 8.5-10.1 Bacterial urine culture - 10/21/18 11:55 Bacterial urine culture SEE REPORT NRG COLONY COUNT . NRG CULTURE, URINE - 11/24/18 13:55 CULTURE, URINE, ROUTINE SEE NOTE NRG PDM - 09 PANEL (PROFILE 1) - 03/15/19 11 :47 Creatinine 60.7 mg/dL > or = 20.0 pH 8.0 4.5-9.0 Oxidant NEGATIVE mcg/mL <200 Amphetamines NEGATIVE ng/mL <500 medMATCH Amphetamines CONSISTENT NRG Benzodiazepines NEGATIVE ng/mL <100 medMATCH Benzodiazepines CONSISTENT NRG Marijuana Metabolite NEGATIVE ng/mL <20 medMATCH Marijuana Metab CONSISTENT NRG Cocaine Metabolite NEGATIVE ng/mL <150 medMATCH Cocaine Metab CONSISTENT NRG Opiates POSITIVE ng/mL <100 Oxycodone NEGATIVE ng/mL <100 medMATCH Oxycodone CONSISTENT NRG COMMENT NRG Codeine NEGATIVE ng/mL <50 medMATCH Codeine CONSISTENT NRG Hydrocodone 1068 ng/mL <50 medMATCH Hydrocodone INCONSISTENT NRG Hydromorphone 497 ng/mL <50 medMATCH Hydromorphone INCONSISTENT NRG Morphine NEGATIVE ng/mL <50 medMATCH Morphine CONSISTENT NRG Norhydrocodone 4280 ng/mL <50 medMATCH Norhydrocodone See Note NRG Barbiturates NEGATIVE ng/mL <300 medMATCH Barbiturates CONSISTENT NRG Methadone Metabolite NEGATIVE ng/mL <100 medMATCH Methadone Metab CONSISTENT NRG Phencyclidine NEGATIVE ng/mL <25 medMATCH Phencyclidine CONSISTENT NRG BUN - 07/16/19 09:08 UREA NITROGEN (BUN) 15 mg/dL 7-25 CREATININE, SERUM - 07/16/19 09:08 CREATININE 0.83 mg/dL 0.50-0.99 eGFR NON-AFR. CONGOLESE 75 mL/min/1.73m2 > OR = 60 eGFR 87 mL/min/1.73m2 > OR = 60 CULTURE, URINE - 08/26/19 10:20 CULTURE, URINE, ROUTINE SEE NOTE NRG Complete urinalysis with reflex to cultu re - 09/02/19 08:47 Urine color determination ORANGE NRG Urine clarity determination CLEAR NR G Urine pH measurement by test strip 5.0 5-9 Specific gravity of urine by test strip <= 1.016-1.022 Urine protein assay by test strip, semi-quantitative TRACE NEGATIVE Urine glucose detection by automated test strip TR MATIAS NEGATIVE Erythrocytes detection in urine sediment by light micr oscopy NEGATIVE NEGATIVE Urine ketones detection by automated test strip NE GATIVE NEGATIVE Urine nitrite detection by test strip POSITIVE NEGATIVE Urine total bilirubin detection by test strip NEGA TIVE NEGATIVE Urine urobilinogen measurement by automated test strip (mass/volume) 4.0 mg/dL < = 1.0 Urine leukocyte esterase detection by dipstick 1+ NEGATIVE Automated urine sediment erythrocyte cou nt by microscopy (number/high power field) NONE NRG Automated urine sediment leukocyte count by microscopy (number/high power field) [HPF] NRG Bacteria detection in urine sediment by light microsco py TRACE NRG Squamous epithelial cells detection in u rine sediment by light microscopy 0-2 NRG Crystals detection in urine sediment by light microsco py NONE NRG Casts detection in urine sediment by light microscopy NONE NRG Mucus detection in urine sediment by light microscopy NEGATIVE NRG Complete urinalysis with reflex to culture YES NRG Complete blood count (CBC) with automate d white blood cell (WBC) differential - 09/02/19 09:10 Blood leukocytes automated count (number/volume) 7.6 10*3/uL 4.3-11.0 Blood erythrocytes automated count (number/volume) 4.25 10*6/uL 4.35-5.85 Venous blood hemoglobin measurement (mass/volume) 12.9 g/dL 11.5-16.0 Blood hematocrit (volume fraction) 40 % 35-52 Automated erythrocyte mean corpuscular volume 93 [ foz_us] 80-99 Automated erythrocyte mean corpuscular h emoglobin (mass per erythrocyte) 30 pg 25-34 Automated erythrocyte mean corpuscular h emoglobin concentration measurement (mass/volume) 33 g/dL 32-36 Automated erythrocyte distribution width ratio 15. 2 % 10.0- 14.5 Automated blood platelet count (count/volume) 264 10*3/uL 130-400 Automated blood platelet mean volume measurement 10.2 [foz_us] 7.4-10.4 Automated blood neutrophils/100 leukocytes 57 % 42-75 Automated blood lymphocytes/100 leukocytes 29 % 12-44 Blood monocytes/100 leukocytes 8 % 0-12 Automated blood eosinophils/100 leukocytes 5 % 0-10 Automated blood basophils/100 leukocytes 0 % 0-10 Blood neutrophils automated count (number/volume) 4.3 10*3 1.8-7.8 Blood lymphocytes automated count (number/volume) 2.2 10*3 1.0-4.0 Blood monocytes automated count (number/volume) 0. 6 10*3 0.0-1.0 Automated eosinophil count 0.4 10*3/uL 0 .0-0.3 Automated blood basophil count (count/volume) 0.0 10*3/uL 0.0-0.1 Comprehensive metabolic panel - 09/02/19 09:10 Serum or plasma sodium measurement (moles/volume) 136 mmol/L 135-145 Serum or plasma potassium measurement (moles/volume) 3.8 mmol/L 3.6-5.0 Serum or plasma chloride measurement (moles/volume) 109 mmol/L 98-107 Carbon dioxide 17 mmol/L 21-32 Serum or plasma anion gap determination (moles/volume) 10 mmol/L 5-14 Serum or plasma urea nitrogen measurement (mass/volume ) 11 mg/dL 7-18 Serum or plasma creatinine measurement (mass/volume) 0.88 mg/dL 0.60-1.30 Serum or plasma urea nitrogen/creatinine mass ratio 13 NRG Serum or plasma creatinine measurement w ith calculation of estimated glomerular filtration rate > NRG Serum or plasma glucose measurement (mass/volume) 105 mg/dL 70-105 Serum or plasma calcium measurement (mass/volume) 9.0 mg/dL 8.5-10.1 Serum or plasma total bilirubin measurement (mass/volu me) 0.2 mg/dL 0.1-1.0 Serum or plasma alkaline phosphatase sameer surement (enzymatic activity/volume) 65 U/L 40-136 Serum or plasma aspartate aminotransfera se measurement (enzymatic activity/volume) 22 U/L 5-34 Serum or plasma alanine aminotransferase measurement (enzymatic activity/volume) 8 U/L 0-55 Serum or plasma protein measurement (mass/volume) 7.1 g/dL 6.4-8.2 Serum or plasma albumin measurement (mass/volume) 4.2 g/dL 3.2-4.5 CALCIUM CORRECTED 8.8 mg/dL 8.5-10.1 Encounters ACCT No. Visit Date/Time Discharge Status Pt. Type Provider Facility Loc./Unit Complaint [id number] 06/08/2017 11:24:39 06/08/2017 23:59: 59 CLS Outpatient Daryl Rivers [id number] 05/11/2017 10:44:41 05/11/2017 23:59: 59 CLS Outpatient Daryl Rivers [id number] 04/27/2017 10:27:27 04/27/2017 23:59: 59 CLS Outpatient Daryl Rivers [id number] 07/26/2019 07:54:00 23:59:59 CLS Outpatient LEONID HIRSCH MD [facility] RAD ORGASMIC HEADACHE [id number] 07/05/2019 08:03:00 23:59:59 CLS Outpatient Moses ESCOBAR MD [facility] CARD PALPITATIONS [id number] 06/29/2019 09:10:00 23:59:59 CLS Outpatient Moses ESCOBAR MD [facility] CARD PALPITATIONS [id number] 05/28/2019 12:37:00 23:59:59 CLS Outpatient JOE BAI MD [facility] RAD LT SIDED CHEST [id number] 03/09/2019 11:22:00 019 13:21:00 DIS Outpatient CHRISTIAN SWENSON MD [facility] REHAB CHONDROMALACIA RT KNEE [id number] 11/21/2018 19:51:00 05:45:00 DIS Outpatient Lisa Vargas D [facility] SLEEP HYPERSOMNIA G47.10 [id number] 11/16/2018 10:07:00 019 11:11:00 DIS Emergency SANDRO DE LA ROSA MD [facility] ER LEG SWELLING [id number] 10/21/2018 11:43:00 019 13:30:00 DIS Emergency GREY MCKEON APRN [facility] ER ABD PAIN [id number] 03/07/2018 17:40:00 018 21:29:00 DIS Emergency YARITZA KRISTYN [facility] ER R KNEE RECENT SURG, FAL L [id number] 02/23/2018 09:59:00 018 23:59:59 CLS Outpatient JOE BAI MD [facility] RAD HISTORY OF OSTEOPOROSIS ,ADULT HEALTH MAINTENANCE [id number] 12/06/2017 15:20:00 018 23:59:59 CLS Outpatient ANA MARIA SCHULTZ APRN [facility] RAD ACUTE PAIN OF RIGHT KN EE, RIGHT LEG PAIN [id number] 10/06/2017 12:47:00 018 13:00:00 DIS Inpatient NIKOLAI VELA, KAITY Siddiqui [facility] 4TH CHEST PAIN [id number] 09/21/2017 14:20:00 018 18:35:00 DIS Emergency GREY MCKEON APRN [facility] ER ABD PAIN [id number] 09/07/2017 18:45:00 018 20:57:00 DIS Emergency GREY MCKEON APRN [facility] ER PAIN IN HEAD,NECK, AND LOWER BACK [id number] 06/29/2017 13:00:00 018 13:47:00 DIS Outpatient SILVESTRE ABARCA, DARYL [facility] REHAB DYSPHAGIA; ALLODYNIA TO R LATERAL SHOULDER [id number] 06/06/2017 10:01:00 017 23:59:59 CLS Outpatient RIVERS DO, DARYL [facility] RAD DYSPHAGIA [id number] 04/04/2017 17:51:00 017 23:59:59 CLS Outpatient FROYLAN VELA, JOSE MANUEL Lopes [facility] LAB PAIN IN RT UPPER ARM M 79.621 [id number] 03/15/2017 09:59:00 017 23:59:59 CLS Outpatient JOE BAI MD [facility] RAD RT ARM PAIN [id number] 01/29/2017 15:46:00 017 18:07:00 DIS Emergency MICHELLE VELA, ARUNA Bear [facility] ER SHARP SHOOTING PAINS IN HEAD,LIGHT-HEADED,PRESSURE [id number] 07/07/2016 10:54:00 017 23:59:59 CLS Outpatient LEONID HIRSCH MD [facility] CARD CHEST PAIN [id number] 07/02/2016 23:10:00 017 12:55:00 DIS Inpatient LEONID HIRSCH MD [facility] ICU CHEST PAIN [id number] 11/25/2015 10:15:00 016 23:59:59 CLS Outpatient JOE BAI MD [facility] RAD SCREENING [id number] 09/02/2019 09:09:00 Document Registration [id number] 07/24/2010 11:45:00 Document Registration [id number] 08/26/2019 07:05:00 08/26/2019 23:59: 59 CLS Outpatient JOE BAI MD [facility] [id number] 08/26/2019 07:05:00 Document Registration [id number] 07/16/2019 09:00:00 Document Registration [id number] 03/15/2019 11:20:00 Document Registration [id number] 11/24/2018 13:20:00 Document Registration [id number] 09/15/2017 11:40:00 Document Registration [id number] 06/01/2017 09:00:00 Document Registration
== END 2019-09-02 10:40 | disposition home or self-care (01) ==
LOC: EDUNIT# 08:41 → ER 08:43
DX: N39.0 Urinary tract infection, site not specified (principal); F41.9 Anxiety disorder, unspecified; F32.9 Major depressive disorder, single episode, unspecified; E03.9 Hypothyroidism, unspecified; K21.9 Gastro-esophageal reflux disease without esophagitis; Z87.891 Personal history of nicotine dependence; Z88.0 Allergy status to penicillin; Z88.5 Allergy status to narcotic agent; Z88.8 Allergy status to other drugs, medicaments and biological substances; Z79.82 Long term (current) use of aspirin; Z82.49 Family history of ischemic heart disease and other diseases of the circulatory system
CPT/HCPCS: 36415; 74176; 80053; 81000; 85025; 87088

== ENCOUNTER 2020-02-07 08:03 | Day surgery (SDC) | payer MEDICARE, MEDICAID ==
[~2020-02-07] VITALS: Ht 157 cm; Wt 90.0 kg
[~2020-02-07 08:03] MED LIST changes: +ONDA4TAB11 PO
[2020-02-07 08:26] VITALS: BP 142/74
[2020-02-07] MEDS ORDERED: LIDOCAINE 1% INJ 20 ML 20 ML VIAL ONE (08:46)
--- NOTE | 2020-02-07 17:59 | Implantation of Loop Monitor ---
Implant of Loop Monitior PROCEDURE PHYSICIAN: Nilson Benson MD IMPLANTATION OF LOOP MONITOR REPORT DATE OF PROCEDURE: 02/07/20 PERFORMING PHYSICIAN: Dr. Royer Benson. INDICATION: Long-term surveillance of atrial fibrillation PREOP DIAGNOSIS: Long-term surveillance of atrial fibrillation POSTOP DIAGNOSIS: Atrial fibrillation, s/p implantation of loop recorder. PROCEDURE DETAILS: The patient is a 64 female with history of paroxysmal atrial tachycardia req uiring long-term surveillance for atrial fibrillation. Therefore implantable loop recorder was discussed and agreed with the patient. Informed consent was taken. All risks and complications were discussed at length. The patient was draped and prepped in the usual sterile fashion. Local anesthesia was lidocaine, which was given in the substernal area close to the 4th intercostal space. Loop monitor was implanted according to the protocol. Steri-Strips were placed at the end of the procedure. There were no complications and the patient tolerated the procedure well. ANESTHESIA: Local anesthesia with lidocaine. COMPLICATIONS: None CONTRAST/FLUOROSCOPY: None CONCLUSION: 1. Successful implantation of loop monitor for long-term surveillance of paroxysmal atrial fibrillation. 2. No complication and the patient tolerated the procedure well. Nilson Benson MD, [facility] Cardiac Electrophysiology Moses BENSON MD Feb 07, 2020 17:59
== END 2020-02-07 10:10 | disposition home or self-care (01) ==
LOC: CATH 08:03
PROVIDERS: ATTEND Internal Medicine Interventional Cardiology
DX: I48.91 Unspecified atrial fibrillation (principal); I47.1 Supraventricular tachycardia; R07.9 Chest pain, unspecified; R00.2 Palpitations; M79.7 Fibromyalgia; Z79.82 Long term (current) use of aspirin; Z79.899 Other long term (current) drug therapy; Z87.891 Personal history of nicotine dependence; Z88.5 Allergy status to narcotic agent; Z88.0 Allergy status to penicillin; Z79.890 Hormone replacement therapy
CPT/HCPCS: 33285; C1764

== ENCOUNTER → 2020-08-20 | Outpatient (CLI) | payer MEDICAID, MEDICARE ==
[~2020-08-20] MED LIST changes: -CIPR500T4 PO; +CIPR500T5 PO; -PANT40TA3 PO; +PANT40TA52 PO
== END ==
LOC: CARD 12:44
PROVIDERS: ATTEND Internal Medicine Cardiovascular Disease
DX: I10 Essential (primary) hypertension (principal)
CPT/HCPCS: 93306

== ENCOUNTER → 2020-09-29 | Outpatient (CLI) | payer MEDICAID ==
[~2020-09-29] VITALS: Ht 157 cm; Wt 89.0 kg
[~2020-09-29] MED LIST changes: +ALEN70TA80 PO; +ASPI325T32 PO; +BREX2TAB PO; +BUSP10TA95 PO; +CATHETER FLUSH 10 ML SYR IV PRN; +CBD OIL SL; +CELE-63 PO; +CHOL10007 PO; +GABA-486 PO; +HYDR-3817 PO; +MTP25TSR PO; +MULT-1136 PO; +OMEG-160 PO; +REGADENOSON 0.4 MG/5 ML SYR (LEXISCAN) IV ONE
[2020-09-29 09:08] VITALS: BP 143/86
--- NOTE | 2020-09-29 11:12 | Cardiology Stress Test Report ---
Stress Test Report Date of Procedure/Referring: Date of Procedure: Sep 29, 2020 Anna Leach Admitting Physician Carlos Garcia MD Indications: CP Baseline Heart Rate: 62 Baseline Blood Pressure: Blood Pressure Systolic: 143 Blood Pressure Diastolic: 86 Baseline Vitals Vital Signs Date Time Temp Pulse Resp B/P (MAP) Pulse Ox O2 Delivery O2 Flow Rate FiO2 09/29/20 09:08 62 143/86 (105) 96 Baseline EKG: Baseline EKG: NSR Summary After explaining the procedure to the patient, she signed a consent and then brought to the stress nuclear laboratory. Patient received 0.4 mg Lexiscan for stress test, ECG, heart rate and blood pressure were monitored continuously. Resting and stress dose of radio tracer were injected, imaging was acquired and reviewed in short axis, horizontal long axis and vertical long axis views. TID: 0.9 SSS: 11 SDS: 11 EF: 60 1. Patient tolerated Lexiscan well 2. Breast attenuation, reversible ischemia involving the whole anterior wall and anterior apical segment 3. Normal left ventricular size, EF 60% TRUE TAMEZ MD Sep 29, 2020 11:12
== END ==
LOC: CARD 07:45
PROVIDERS: ATTEND Physician Assistant
DX: R07.9 Chest pain, unspecified (principal)
CPT/HCPCS: 78452; 93017; A9502

== ENCOUNTER 2020-09-30 09:21 | Observation (INO) | payer MEDICARE, MEDICAID ==
[~2020-09-30 09:21] MED LIST changes: -ALEN70TA80 PO; -ASPI325T32 PO; -BREX2TAB PO; -BUSP10TA95 PO; -CATHETER FLUSH 10 ML SYR IV PRN; -CBD OIL SL; -CELE-63 PO; -CHOL10007 PO; -GABA-486 PO; -HYDR-3817 PO; -MTP25TSR PO; -MULT-1136 PO; -OMEG-160 PO; -REGADENOSON 0.4 MG/5 ML SYR (LEXISCAN) IV ONE
[2020-09-30] MEDS ORDERED: NS IV 1000 ML 1,000 ML IV SCH ×2 (09:45→16:45)
[2020-09-30 10:03] LABS: BASOPHILS # (AUTO) 0.1 10^3/uL (0.0-0.1); BASOPHILS % (AUTO) 1 % (0-10); EOSINOPHILS # (AUTO) 0.2 10^3/uL (0.0-0.3); EOSINOPHILS % (AUTO) 2 % (0-10); HEMATOCRIT 39 % (35-52); HEMOGLOBIN 12.5 g/dL (11.5-16.0); LYMPHOCYTES # (AUTO) 2.4 10^3/uL (1.0-4.0); LYMPHOCYTES % (AUTO) 27 % (12-44); MEAN CORPUSCULAR HEMOGLOBIN 31 pg (25-34); MEAN CORPUSCULAR HGB CONC 32 g/dL (32-36); MEAN CORPUSCULAR VOLUME 97 fL (80-99); MEAN PLATELET VOLUME 9.7 fL (9.0-12.2); MONOCYTES # (AUTO) 0.7 10^3/uL (0.0-1.0); MONOCYTES % (AUTO) 7 % (0-12); NEUTROPHILS # (AUTO) 5.6 10^3/uL (1.8-7.8); NEUTROPHILS % (AUTO) 62 % (42-75); PLATELET COUNT 305 10^3/uL (130-400)
--- NOTE | 2020-09-30 10:06 | Cardiology History & Physical ---
HPI-Cardiology Cardiology Consultation Date of Consultation 09/30/20 Date of Admission Time Seen by Provider: 10:01 Indication: Chest pain, abnormal stress test HPI Patient is a 65 y/o female, hx of HTN, HLP, strong fam hx CAD. Presented to the office today after having an abnormal stress test. Reports active chest pain since last night. C.o intermittent chest pain over the past several months with associated dypsnea on exertion. Denies any dizziness or lightheadedness or syncope. PMH-Cardiology Immunizations Up To Date Date of Pneumonia Vaccine: Apr 02, 2013 Date of Influenza Vaccine: Apr 01, 2016 Seasonal Allergies Seasonal Allergies: No Surgeries Yes Respiratory Yes Cardiovascular Yes (" THEY THINK IT'S FROM ANXIETY.") Neurological Yes Headaches /Migraines Reproductive System Sexually Transmitted Disease: No HIV/AIDS: No Female Reproductive Disorders: Denies Menopausal Genitourinary No Gastrointestinal Yes Gastroesophageal Reflux, Chronic Constipation, Chronic Diarrhea, Ulcer, Irritable Bowel Musculoskeletal Yes (CHRONIC NECK PAIN; RSD) Fibromyalgia, Chronic Back Pain Endocrine Yes (HYPOGLYCEMIC) Hypothyroidsim HEENT Yes (Vision changes in right eye, 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 ear.) Loss of Vision: Right Cancer No Did You Recieve Any Treatments: No Psychosocial Yes Anxiety, Depression Integumentary No Blood Transfusions No Adverse Rxn to Transfusion: No Social History Patient Social History Marrital Status: Family Hx Significant Family History: Heart Disease, CAD Over 55 Years Old, Diabetes Family History: Congenital heart disease Diabetes mellitus G8 BROTHER, Onset:Unknown Irregular heart beat 19 FATHER, , Onset:Unknown G8 SISTER, Onset:Unknown Myocardial infarction G8 BROTHER, Onset:Unknown ROS-Cardiology Review of Systems General: Fatigue HEENT: No Eye Pain Pulmonary: No Dyspnea, No Cough Cardiovascular: Chest Pain; No: Palpitations, Edema Gastrointestinal: No: Nausea, Vomiting, Abdominal Pain Musculoskeletal: arm pain (left arm pain); No: neck pain Neurological: No: Weakness, Numbness Home Medications & Allergies Allergies: Coded Allergies: Penicillins (Unverified Allergy, Intermediate, HIVES, 07/24/10) meperidine (Unverified Allergy, Intermediate, HIVES, 07/24/10) codeine (Unverified Allergy, Mild, PALPITATIONS, 07/24/10) baclofen (Unverified Adverse Reaction, Unknown, dizzy, nausea, 09/07/17) divalproex sodium (Unverified Adverse Reaction, Unknown, 09/07/17) metaxalone (Unverified Adverse Reaction, Unknown, "bad for me", 09/07/17) methocarbamol (Unverified Adverse Reaction, Unknown, HOSTILE/AGGRESSION, 07/02/16) tizanidine (Unverified Adverse Reaction, Unknown, drowsy, 09/07/17) Home Medication List Reviewed: Yes Exam-Cardiology Vital Signs Vital Signs Date Time Temp Pulse Resp B/P (MAP) Pulse Ox O2 Delivery O2 Flow Rate FiO2 09/30/20 15:22 36.4 68 16 139/74 (95) 97 Room Air 09/30/20 14:36 21 09/30/20 12:00 21.00 Exam General Appearance: Alert, Oriented X3, Cooperative, No Acute Distress HEENT: Atraumatic, PERRLA Respiratory: Clear to Auscultation, Normal Air Movement Cardiovascular: Regular Rate, Normal S1, Normal S2, No Murmurs Abdominal: Normal Bowel Sounds, Soft, No Tenderness, No Hepatosplenomegaly, No Masses Extremities: No Clubbing, No Cyanosis, No Edema, Normal Pulses, No Tenderness/Swelling Skin: No Rashes, No Breakdown, No Significant Lesion Neuro: Normal Gait, Normal Speech, Strength at 5/5 X4 Ext, Normal Tone, Sensation Intact Psych/Mental Status: Mental Status NL, Mood NL Results Labs Labs Laboratory Tests 09/30/20 10:00: White Blood Count 9.0, Red Blood Count 4.04, Hemoglobin 12.5, Hematocrit 39, Mean Corpuscular Volume 97, Mean Corpuscular Hemoglobin 31, Mean Corpuscular Hemoglobin Concent 32, Red Cell Distribution Width 13.7, Platelet Count 305, Mean Platelet Volume 9.7, Immature Granulocyte % (Auto) 1, Neutrophils (%) (Auto) 62, Lymphocytes (%) (Auto) 27, Monocytes (%) (Auto) 7, Eosinophils (%) (Auto) 2, Basophils (%) (Auto) 1, Neutrophils # (Auto) 5.6, Lymphocytes # (Auto) 2.4, Monocytes # (Auto) 0.7, Eosinophils # (Auto) 0.2, Basophils # (Auto) 0.1, Immature Granulocyte # (Auto) 0.1, Sodium Level 137, Potassium Level 3.8, Chloride Level 107, Carbon Dioxide Level 21, Anion Gap 9, Blood Urea Nitrogen 14, Creatinine 0.87, Estimat Glomerular Filtration Rate > 60, BUN/Creatinine Ratio 16, Glucose Level 108H, Calcium Level 8.8, Corrected Calcium 8.7, Total Bilirubin 0.1, Aspartate Amino Transf (AST/SGOT) 18, Alanine Aminotransferase (ALT/SGPT) 9, Alkaline Phosphatase 71, Troponin I < 0.028, Total Protein 7.2, Albumin 4.1, Thyroid Stimulating Hormone (TSH) 1.27 A/P-Cardiology Admission Diagnosis Chest pain HTN HLP Admission Status: Observation Assessment/Plan Abnormal stress test on 09/29/20 showing breast attenuation, reversible ischemia involving the whole anterior wall and anterior apical segment, SSS 11, SDS 11, TID 0.9. Patient having active chest pain, on admission the plan was to proceed with cardiac catheterization later the next day after monitoring her cardiac enzymes, she continued to have recurrent chest pain, I decided to proceed with cardiac catheterization possible PTCA. Chest pain, resembling unstable angina. Will admit to cardiac stepdown Recurrent palpitation, on and off. No arrhythmia detected on loop recorder Loop recorder implanted in January 2020, no arrhythmia was detected. Continue to monitor HTN, mildly elevated, continue to monitor. Hyperlipidemia, lipid profile was done in April 2020 showing total cholesterol 232, HDL 76, triglyceride 121, LDL 133, planning to repeat lipid profile nonobstructive carotid artery stenosis, continue to monitor. Strong family history of heart disease, multiple family members with heart disease. BMI 37, patient has been working on weight loss and exercising, lost significant weight, still elevated weight and working on weight loss. Patient was seen and evaluated with Anna, examination performed, management plan was discussed, agree with the current scribed note, I made few changes to the note using Italic font Decision was made to proceed with left heart catheterization possible PTCA. ANNA JENSEN Sep 30, 2020 10:06 am TRUE TAMEZ MD Sep 30, 2020 4:33 pm
--- NOTE | 2020-09-30 10:25 | Diagnostic Imaging Report ---
Portable erect AP chest at 957 hours. INDICATION: Chest pain. FINDINGS: The heart size is within normal limits and stable when compared to 10/06/2017. In the interval since the prior exam, a loop recorder device has been inserted over the lower thorax on the left. The lungs are clear. There is no sign of failure, pneumonia or pleural effusion. The mediastinum is not widened. The osseous structures are intact. IMPRESSION: Aside from the insertion of the loop recorder device on the left, there has been no significant change since the prior exam. There is still no evidence for an acute cardiopulmonary abnormality. Dictated by: Dictated on workstation # [id number]
[2020-09-30 10:26] LABS: ALANINE AMINOTRANSFERASE 9 U/L (0-55); ALBUMIN 4.1 GM/DL (3.2-4.5); ALKALINE PHOSPHATASE 71 U/L (40-136); BILIRUBIN,TOTAL 0.1 MG/DL (0.1-1.0); BUN/CREATININE RATIO 16; CALCIUM 8.8 MG/DL (8.5-10.1); CARBON DIOXIDE 21 MMOL/L (21-32); CHLORIDE 107 MMOL/L (98-107); CREATININE SERUM 0.87 MG/DL (0.60-1.30); GFR ESTIMATED > 60; GLUCOSE 108 MG/DL (70-105); POTASSIUM 3.8 MMOL/L (3.6-5.0); SODIUM 137 MMOL/L (135-145); TOTAL PROTEIN 7.2 GM/DL (6.4-8.2)
[2020-09-30] MEDS ORDERED: ASPI325T32 PO (11:40)
[2020-09-30] MEDS ORDERED: CBD OIL SL (11:40)
[2020-09-30] MEDS ORDERED: ALEN70TA80 PO (11:40)
[2020-09-30] MEDS ORDERED: CELE-63 PO (11:40)
[2020-09-30] MEDS ORDERED: OMEG-160 PO (11:40)
[2020-09-30] MEDS ORDERED: BREX2TAB PO (11:40)
[2020-09-30] MEDS ORDERED: GABA-486 PO (11:40)
[2020-09-30] MEDS ORDERED: CHOL10007 PO (11:40)
[2020-09-30] MEDS ORDERED: MTP25TSR PO (11:40)
[2020-09-30] MEDS ORDERED: HYDR-3817 PO (11:40)
[2020-09-30] MEDS ORDERED: BUSP10TA95 PO (11:40)
[2020-09-30] MEDS ORDERED: MULT-1136 PO (11:40)
[2020-09-30 12:00] VITALS: BP 136/80
[2020-09-30] MEDS ORDERED: LIDOCAINE 1% INJ 20 ML 20 ML VIAL ONE ×2 (12:22→16:07)
[2020-09-30] MEDS ORDERED: NS IV 1000 ML 1,000 ML ONE (12:22)
[2020-09-30] MEDS ORDERED: HEParin (CATH LAB) 2,000 ML IV ONE (12:22)
[2020-09-30] MEDS ORDERED: MIDAZOLAM 5 MG/5 ML (VERSED) VIAL ONE (15:02)
[2020-09-30] MEDS ORDERED: fentaNYL INJ 100 MCG/2 ML AMP ONE (15:03)
[2020-09-30 15:22] VITALS: BP 139/74
--- NOTE | 2020-09-30 16:33 | Cardiac Procedure Note-CS/ASA ---
Pre-Procedure Note Pre-Op Procedure Note H&P Reviewed The H&P was reviewed, patient examined and no changes noted. Date H&P Reviewed: Sep 30, 2020 Time H&P Reviewed: 13:00 Conscious Sedation Pre-Proced Time 13:00 ASA Score 3 For ASA 3 and 4: Consider anesthesia and medical clearance. Also, for patients with a history of failed moderate sedation consider anesthesia. Airway Lungs Heart ASA score ASA 1: a normal healthy patient ASA 2: a patient with a mild systemic disease (mid diabetes, controlled hypertension, obesity x ASA 3: a patient with a severe systemic disease that limits activity (angina, COPD, prior Myocardial infarction) ASA 4: a patient with an incapacitating disease that is a constant threat to life (CHF, renal failure) ASA 5: a moribund patient not expected to survive 24 hrs. (ruptured aneurysm) ASA 6: a declared brain- patient whose organs are being harvested. For emergent operations, add the letter E after the classification Mallampati Classification Grade 3 Sedation Plan Analgesia, Amnesia, Plan communicated to team members, Discussed options with patient/fam, Discussed risks with patient/fam The patient is an appropriate candidate to undergo the planned procedure, sedation, and anesthesia. The patient immediately re-assessed prior to indication. TRUE TAMEZ MD Sep 30, 2020 4:33 pm
--- NOTE | 2020-09-30 16:35 | Discharge Inst-Post CATH ---
Discharge Inst-CATH/EP Problems Reviewed?: Yes Post Cardiac Cath/EP D/C Inst Follow Up/Plan Appointment with Dr. Tapia's office in 4 to 6 weeks <b>CARDIAC CATH/EP PROCEDURE DISCHARGE INSTRUCTIONS</b> ACTIVITY * Go Home directly and rest. * Limit activity of the leg (or wrist if it was used) for 7 days including aer obics, swimming, jogging, bicycling, etc. * Restrict stair-climbing for 7 days if possible, if not, climb up with your non-cath leg, then bring together on the same step. * Avoid lifting, pushing, pulling or excessive movement of the affected extremi ty for 7 days. * Customary sexual activity may be resumed after 2 days-use caution not to use a position that strains or causes pain to the affected extremity. * No driving for 24 hours. * NO SMOKING. * Avoid straining for bowel movements for 7 days. * Gentle walking on level ground is allowed. * Returning to work will depend on the type of procedure and the results. Your doctor will discuss this with you. CALL YOUR DOCTOR FOR ANY OF THE FOLLOWING: *If bleeding from the puncture site occurs- Apply gentle pressure to site with clean cloth and call your doctor or EMS. * If a knot or lump forms under the skin, increases in size, or causes pain. * If bruising appears to be worsening or moving further down your leg instead of disappearing. * Temperature above 101 F. CARE OF YOUR GROIN INCISION; * Bruising or purple discoloration of the skin near the puncture site is common. * You may shower only, no bathtub bathing for 5 days. Be careful to avoid slipping as your leg may feel stiff. * If a closure device was used on your femoral artery, please see the attached guide regarding care of the device and your leg. * Leave dressing on FOR 24 hours. CARE OF YOUR WRIST INCISION; * Bruising or purple discoloration of the skin near the puncture site is common. * You may shower. * DO NOT submerge wrist. * Leave dressing on FOR 24 hours. TRUE TAPIA MD Sep 30, 2020 4:35 pm
--- NOTE | 2020-09-30 16:40 | Cardiac Cath Report ---
Cardiac Cath Report Physician (s)/Catering Attendant (s) Physician TRUE TAMEZ MD Pre-Procedure Diagnosis Pre-Procedure Diagnosis: Chest pain Post-Procedure Note Procedure Start Date: Sep 30, 2020 Name of Procedure: Left heart catheterization Left ventriculogram Aortic arch angiogram Findings/Procedure Note PROCEDURE NOTE: 65-year-old lady with recurrent chest pain, had an abnormal stress test, she called me last night with active chest pain and came to the office today having recurrent active chest pain on and off in the retrosternal area very anxious, I decided to proceed with admitting the patient evaluate her cardiac enzymes, she continued to have chest pain and we decided to proceed with left heart ca theterization possible PTCA. After explaining the procedure to the patient, all pros and cons were explained, all questions were answered. The patient signed the consent and then she was placed on the cardiac catheterization laboratory. Groin was prepped SL fashion local anesthesia was used. Sheath placed in the right femoral artery. Raj right and left catheter were used to access the coronary system. Pigtail was used to access the left ventricular cavity. Left ventriculogram was done Aortic arch angiogram was done to evaluate her aortic arch due to the persistent chest pain At the end of the procedure the sheath was removed. Closure device was deployed FINDINGS: Hemodynamics LV 104/19, end-diastolic pressure of 19 Aorta 108/61 mean of 82 ANATOMY: Left Main is free of obstructive disease Left Anterior Descending is small in size with no significant obstructive disease Left Circumflex is small to moderate in size, giving a branch to the right side. No significant obstructive disease Right Coronory Artery is dominant artery with no obstructive disease LV Gram is normal in size with normal contractility estimate ejection fraction 60%, elevated left ventricular end-diastolic pressure Aorta evaluation done with aortic arch angiogram showing normal aortic arch, no dissection or aneurysm, normal origin of the innominate artery, left carotid and left subclavian arteries CONCLUSION: 1. Small left coronary system with no significant obstructive disease, the right coronary artery is a dominant artery with no obstructive disease 2. Normal left ventricular systolic function estimate ejection fraction 60%, diastolic dysfunction probably with elevated left ventricular end-diastolic pressure. 3. Normal aortic arch and great vessels of the neck DISCUSSION AND RECOMMENDATION: Will use PPI, chest pain is probably not cardiac. Anesthesia Type: Conscious Sedation Estimated blood loss (mL): 20 ml Contrast Amount: 64 ml Total Radiation Dose: 585 mGy Post-Procedure Diagnosis Post-operative diagnosis: Chest pain Coronary artery disease Gastroesophageal reflux disease Anxiety TRUE TAMEZ MD Sep 30, 2020 4:40 pm
[2020-09-30] MEDS ORDERED: NON-FORMULARY MEDICATION 1 EA EA (Alendronate Sodium 70 MG) PO SCH (16:45)
[2020-09-30] MEDS ORDERED: PATIENT MAY USE OWN MEDS, ALL PO SCH (16:45)
[2020-09-30 19:40] VITALS: BP 134/71
[2020-09-30 20:27] VITALS: BP 125/49
[2020-09-30 20:40] VITALS: BP 152/76
[2020-09-30] MEDS ORDERED: busPIRone 10 MG (BUSPAR) TAB PO SCH (21:00)
[2020-09-30] MEDS ORDERED: GABAPENTIN 100 MG (NEURONTIN) CAP PO SCH (21:00)
[2020-10-01] MEDS ORDERED: LEVOTHYROXINE 75 MCG (LEVOTHROID) TABLET PO SCH (06:30)
[2020-10-01] MEDS ORDERED: NON-FORMULARY MEDICATION 1 EA EA (Brexpiprazole (Rexulti) 2 MG) PO SCH (09:00)
[2020-10-01] MEDS ORDERED: NON-FORMULARY MEDICATION 1 EA EA (Celecoxib 200 MG) PO SCH (09:00)
[2020-10-01] MEDS ORDERED: CELECOXIB 100 MG (CeleBREX) CAP PO SCH (09:00)
== END 2020-09-30 20:50 | disposition home or self-care (01) ==
LOC: CSD 09:27
PROVIDERS: ADMIT Internal Medicine Cardiovascular Disease; ATTEND Internal Medicine Cardiovascular Disease
DX: R07.9 Chest pain, unspecified (principal); R94.39 Abnormal result of other cardiovascular function study; K21.9 Gastro-esophageal reflux disease without esophagitis; F41.9 Anxiety disorder, unspecified; E78.5 Hyperlipidemia, unspecified; G43.909 Migraine, unspecified, not intractable, without status migrainosus; K59.09 Other constipation; I65.29 Occlusion and stenosis of unspecified carotid artery; K52.9 Noninfective gastroenteritis and colitis, unspecified; M79.7 Fibromyalgia; G89.29 Other chronic pain; M54.9 Dorsalgia, unspecified; E03.9 Hypothyroidism, unspecified; F32.9 Major depressive disorder, single episode, unspecified; Z88.0 Allergy status to penicillin; Z88.5 Allergy status to narcotic agent; Z88.8 Allergy status to other drugs, medicaments and biological substances; Z83.3 Family history of diabetes mellitus
CPT/HCPCS: 36221; 71045; 80053; 84443; 84484; 85025; 93005; 93458; C1760; C1894; 36415

== ENCOUNTER → 2021-02-20 | Outpatient (CLI) | payer MEDICARE, MEDICAID ==
[~2021-02-20] MED LIST changes: +ALEN70TA80 PO; +ASPI325T32 PO; +BREX2TAB PO; +BUSP10TA95 PO; +CBD OIL SL; +CELE-63 PO; +CHOL10007 PO; +GABA-486 PO; +HYDR-3817 PO; +MTP25TSR PO; +MULT-1136 PO; +OMEG-160 PO; -SULF1TAB35 PO; +SULF1TAB38 PO
== END ==
LOC: LABNPT 09:02
PROVIDERS: ATTEND Emergency Medicine
DX: Z20.822 Contact with and (suspected) exposure to COVID-19 (principal)
CPT/HCPCS: 87635

== ENCOUNTER → 2021-03-02 | Outpatient (RCR) | payer MEDICARE, MEDICAID | END | disposition home or self-care (01) | PROVIDERS: ATTEND Physician Assistant | DX: M75.02 Adhesive capsulitis of left shoulder (principal); F32.9 Major depressive disorder, single episode, unspecified; M81.0 Age-related osteoporosis without current pathological fracture; H91.90 Unspecified hearing loss, unspecified ear ==

== ENCOUNTER 2021-03-26 13:43 | Outpatient (RCR) | payer MEDICARE, MEDICAID | END 2021-03-26 15:49 | disposition home or self-care (01) | PROVIDERS: ATTEND Physician Assistant | DX: M75.02 Adhesive capsulitis of left shoulder (principal); Z96.612 Presence of left artificial shoulder joint ==

== ENCOUNTER 2021-03-26 13:43 | Outpatient (RCR) | payer MEDICARE, MEDICAID | END 2021-03-26 13:52 | disposition home or self-care (01) | PROVIDERS: ATTEND Nurse Practitioner | DX: M25.522 Pain in left elbow (principal); M81.0 Age-related osteoporosis without current pathological fracture; H91.90 Unspecified hearing loss, unspecified ear; Z98.890 Other specified postprocedural states ==

== ENCOUNTER 2021-06-06 10:36 | Emergency (ER) | payer MEDICARE, MEDICAID ==
[~2021-06-06] VITALS: Ht 157.5 cm; Wt 92.9 kg
[~2021-06-06 10:36] MED LIST changes: +TIZA-186 PO; -TIZA4TAB4 PO
--- NOTE | 2021-06-06 10:58 | ED GU-Female ---
General Chief Complaint: - Reproductive Stated Complaint: UTI SYMPTOMS/LOW BACK PAIN Source: patient Exam Limitations: no limitations History of Present Illness Date Seen by Provider: Jun 06, 2021 Time Seen by Provider: 10:57 Initial Comments To ER by private vehicle with a suprapubic pulling sensation when she urinates, hematuria intermittently since mid April, severe midline low back pain. She is been on a couple rounds of antibiotics through [facility] without improvement. Timing/Duration: constant Severity/Quality: moderate Location: suprapubic Radiation: back Activities at Onset: none Prior Genitourinary Problems: none Associated Symptoms: denies symptoms Allergies and Home Medications Allergies Coded Allergies: Penicillins (Unverified Allergy, Intermediate, HIVES, 07/24/10) meperidine (Unverified Allergy, Intermediate, HIVES, 07/24/10) codeine (Unverified Allergy, Mild, PALPITATIONS, 07/24/10) baclofen (Unverified Adverse Reaction, Unknown, dizzy, nausea, 09/07/17) divalproex sodium (Unverified Adverse Reaction, Unknown, 09/07/17) metaxalone (Unverified Adverse Reaction, Unknown, "bad for me", 09/07/17) methocarbamol (Unverified Adverse Reaction, Unknown, HOSTILE/AGGRESSION, 07/02/16) tizanidine (Unverified Adverse Reaction, Unknown, drowsy, 09/07/17) Patient Home Medication List Home Medication List Reviewed: Yes Alendronate Sodium (Alendronate Sodium) 70 Mg Tablet, 70 MG PO MON, (Reported) Entered as Reported by: MARCO GALVAN on 09/30/20 1140 Aspirin (Aspirin EC) 325 Mg Tablet.dr, 325 MG PO 1200, (Reported) Entered as Reported by: MARCO GALVAN on 09/30/20 1140 Brexpiprazole (Rexulti) 2 Mg Tablet, 2 MG PO DAILY, (Reported) Entered as Reported by: MARCO GALVAN on 09/30/20 1140 Buspirone HCl (Buspirone HCl) 10 Mg Tablet, 10 MG PO BID, (Reported) Entered as Reported by: MARCO GALVAN on 09/30/20 1140 Celecoxib (Celecoxib) 200 Mg Capsule, 200 MG PO DAILY, (Reported) Entered as Reported by: MARCO GALVAN on 09/30/20 114 Cholecalciferol (Vitamin D3) (Vitamin D3) 25 Mcg Capsule, 25 MCG PO 1200, (Reported) Entered as Reported by: MARCO GALVAN on 09/30/20 114 Gabapentin (Gabapentin) 100 Mg Capsule, 100 MG PO BID, (Reported) Entered as Reported by: MARCO GALVAN on 09/30/20 114 Hydrocodone/Acetaminophen (Hydrocodone-Acetamin 7.5-325) 1 Each Tablet, 1 EA PO TID PRN for PAIN-MODERATE (5-7), (Reported) Entered as Reported by: MARCO GALVAN on 09/30/20 114 Levothyroxine Sodium (Levothyroxine Sodium) 75 Mcg Tablet, 75 MCG PO DAILY, (Reported) Entered as Reported by: PAULIE SUMMERS on 10/06/17 142 Metoprolol Succinate (Metoprolol Succinate) 25 Mg Tab.er.24h, 25 MG PO HS, (Reported) Entered as Reported by: MARCO GALVAN on 09/30/201139 Multivitamin (Multivitamin) 1 Each Tablet, 1 EACH PO 1200, (Reported) Entered as Reported by: MARCO GALVAN on 09/30/20 114 Freeman-3/Dha/Epa/Fish Oil (Fish Oil 1,000 mg Softgel) 1 Each Capsule, 3 EACH PO 1200, (Reported) Entered as Reported by: MARCO GALVAN on 09/30/201139 Orphenadrine Citrate (Orphenadrine Citrate) 100 Mg Tablet.er, 100 MG PO BID, (Reported) Entered as Reported by: PAULIE SUMMERS on 10/06/17 142 Pantoprazole Sodium (Pantoprazole Sodium) 40 Mg Tablet.dr, 40 MG PO DAILY, (Reported) Entered as Reported by: FLY HAIR on 07/03/16 0114 Topiramate (Topiramate) 200 Mg Tablet, 200 MG PO BID, (Reported) Entered as Reported by: FIDENCIO DENT on 07/02/162207 [Cbd Oil] , DROP SL DAILY, (Reported) Entered as Reported by: MARCO GALVAN on 09/30/20 114 Review of Systems Review of Systems Constitutional: see HPI EENTM: see HPI Respiratory: no symptoms reported Cardiovascular: no symptoms reported Genitourinary: no symptoms reported Musculoskeletal: no symptoms reported Skin: no symptoms reported Psychiatric/Neurological: No Symptoms Reported Endocrine: No Symptoms Reported Past Ywbizrb-Hgimnq-Lhxxzd Hx Immunizations Up To Date PED Vaccines UTD: No Seasonal Allergies Seasonal Allergies: No Past Medical History Surgeries: Yes (colon resection, r knee scope) Abdominal, Appendectomy, Bowel Surgery, Section, Gallbladder, Hysterectomy, Neurological, Orthopedic, Tonsillectomy Respiratory: Yes Asthma Currently Using CPAP: No Currently Using BIPAP: No Cardiac: Yes (" THEY THINK IT'S FROM ANXIETY.") Angina Neurological: Yes Headaches /Migraines Female Reproductive Disorders: Denies CAMERA PERSON History: Menopausal Sexually Transmitted Disease: No HIV/AIDS: No Genitourinary: No Gastrointestinal: Yes Gastroesophageal Reflux, Chronic Constipation, Chronic Diarrhea, Ulcer, Irritable Bowel Musculoskeletal: Yes (CHRONIC NECK PAIN; RSD, plantar fascitis) Fibromyalgia, Chronic Back Pain Endocrine: Yes (HYPOGLYCEMIC) Hypothyroidsim HEENT: Yes (Vision changes in right eye, 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 ear.) Loss of Vision: Right Hearing Impairment: Deaf Cancer: No Did You Recieve Any Treatments: No Psychosocial: Yes Anxiety, Depression Integumentary: No Blood Disorders: No Adverse Reaction/Blood Tranf: No Family Medical History Congenital heart disease Diabetes mellitus G8 BROTHER, Onset:Unknown Irregular heart beat 19 FATHER, , Onset:Unknown G8 SISTER, Onset:Unknown Myocardial infarction G8 BROTHER, Onset:Unknown Heart Disease, CAD Over 55 Years Old, Diabetes Physical Exam Vital Signs Vital Signs - First Documented 06/06/21 10:48 Temp 35.9 Pulse 73 Resp 16 B/P (MAP) 147/87 (107) Pulse Ox 96 O2 Delivery Room Air Capillary Refill : Height, Weight, BMI Height: 5'1.00" Weight: 225lbs. 1.0oz. [id number]; 36.00 BMI Method:Stated General Appearance: WD/WN, no apparent distress Neck: non-tender, full range of motion Respiratory: no respiratory distress, no accessory muscle use Gastrointestinal: normal bowel sounds, non tender, soft Extremities: normal range of motion, non-tender Neurologic/Psychiatric: alert, normal mood/affect, oriented x 3 Skin: normal color, warm/dry Progress/Results/Core Measures Suspected Sepsis SIRS Temperature: Pulse: Respiratory Rate: Laboratory Tests 06/06/21 11:25: White Blood Count 9.4 Blood Pressure / Mean: Laboratory Tests 06/06/21 11:25: Creatinine 0.82, INR Comment 1.0, Platelet Count 270, Total Bilirubin 0.2 Results/Orders Lab Results Laboratory Tests Test 06/06/21 10:55 06/06/21 11:25 Range/Units Urine Color YELLOW Urine Clarity CLEAR Urine pH 6.0 5-9 Urine Specific Rheems 1.010 L 1.016-1.022 Urine Protein NEGATIVE NEGATIVE Urine Glucose (UA) NEGATIVE NEGATIVE Urine Ketones NEGATIVE NEGATIVE Urine Nitrite NEGATIVE NEGATIVE Urine Bilirubin NEGATIVE NEGATIVE Urine Urobilinogen 0.2 < = 1.0 MG/DL Urine Leukocyte Esterase 1+ H NEGATIVE Urine RBC (Auto) NEGATIVE NEGATIVE Urine RBC NONE /HPF Urine WBC 10-25 H /HPF Urine Squamous Epithelial Cells 0-2 /HPF Urine Crystals NONE /LPF Urine Bacteria FEW H /HPF Urine Casts NONE /LPF Urine Mucus NEGATIVE /LPF Urine Culture Indicated YES White Blood Count 9.4 4.3-11.0 10^3/uL Red Blood Count 4.04 3.80-5.11 10^6/uL Hemoglobin 12.5 11.5-16.0 g/dL Hematocrit 39 35-52 % Mean Corpuscular Volume 97 80-99 fL Mean Corpuscular Hemoglobin 31 25-34 pg Mean Corpuscular Hemoglobin Concent 32 32-36 g/dL Red Cell Distribution Width 13.0 10.0-14.5 % Platelet Count 270 130-400 10^3/uL Mean Platelet Volume 10.1 9.0-12.2 fL Immature Granulocyte % (Auto) 1 % Neutrophils (%) (Auto) 58 42-75 % Lymphocytes (%) (Auto) 30 12-44 % Monocytes (%) (Auto) 8 0-12 % Eosinophils (%) (Auto) 3 0-10 % Basophils (%) (Auto) 0 0-10 % Neutrophils # (Auto) 5.4 1.8-7.8 10^3/uL Lymphocytes # (Auto) 2.8 1.0-4.0 10^3/uL Monocytes # (Auto) 0.8 0.0-1.0 10^3/uL Eosinophils # (Auto) 0.3 0.0-0.3 10^3/uL Basophils # (Auto) 0.0 0.0-0.1 10^3/uL Immature Granulocyte # (Auto) 0.1 0.0-0.1 10^3/uL Prothrombin Time 13.4 12.2-14.7 SEC INR Comment 1.0 0.8-1.4 Sodium Level 137 135-145 MMOL/L Potassium Level 3.6 3.6-5.0 MMOL/L Chloride Level 108 H 98-107 MMOL/L Carbon Dioxide Level 21 21-32 MMOL/L Anion Gap 8 5-14 MMOL/L Blood Urea Nitrogen 18 7-18 MG/DL Creatinine 0.82 0.60-1.30 MG/DL Estimat Glomerular Filtration Rate 70 BUN/Creatinine Ratio 22 Glucose Level 115 H 70-105 MG/DL Calcium Level 9.2 8.5-10.1 MG/DL Corrected Calcium 9.1 8.5-10.1 MG/DL Total Bilirubin 0.2 0.1-1.0 MG/DL Aspartate Amino Transf (AST/SGOT) 21 5-34 U/L Alanine Aminotransferase (ALT/SGPT) 11 0-55 U/L Alkaline Phosphatase 63 40-136 U/L Total Protein 7.4 6.4-8.2 GM/DL Albumin 4.1 3.2-4.5 GM/DL My Orders Orders - GREY MCKEON APRN Cbc With Automated Diff (06/06/21 10:56) Comprehensive Metabolic Panel (06/06/21 10:56) Protime With Inr (06/06/21 10:56) Ed Iv/Invasive Line Start (06/06/21 10:56) Ketorolac Injection (Toradol Injection) (06/06/21 11:00) Lactated Ringers (Lr 1000 Ml Iv Solution (06/06/21 11:00) Ct Abd/Pelvis Wo(Kidney Stone) (06/06/21 10:56) Ceftriaxone 1 Gm Pre-Mix (Rocephin 1 Gm (06/06/21 11:30) Medications Given in ED Current Medications Medications Dose Ordered Sig/Emily Route Start Time Stop Time Status Last Admin Dose Admin Ketorolac Tromethamine 15 mg ONCE ONCE IVP 06/06/21 11:00 06/06/21 11:01 DC 06/06/21 11:21 15 MG Vital Signs/I&O 06/06/21 10:48 Temp 35.9 Pulse 73 Resp 16 B/P (MAP) 147/87 (107) Pulse Ox 96 O2 Delivery Room Air Capillary Refill : Departure Communication (Admissions) NAME: KARLA MURRAY [facility] REC#: [id number] PT STATUS: REG ER : 1955 PHYSICIAN: GREY MCKEON APRN ADMIT DATE: 06/06/21/ER Draft Date of Exam:06/06/21 CT ABD/PELVIS WO(KIDNEY STONE) PROCEDURE: CT urinary tract, rule out kidney stone. TECHNIQUE: Multiple contiguous axial images were obtained through the abdomen and pelvis without the use of intravenous contrast. Auto Exposure Controls were utilized during the CT exam to meet ALARA standards for radiation dose reduction. INDICATION: Intermittent hematuria as well as back pain and bilateral flank pain. Comparison is made with prior CT from 09/02/2019. Lung bases are clear. Liver is unremarkable. Gallbladder surgically absent. No biliary ductal dilatation is seen. The pancreas and spleen are unremarkable. No adrenal mass is identified. No renal calculi are detected. No ureteral calculi or hydronephrosis is seen. Aorta is nonaneurysmal. Bowel loops are normal caliber. There is no ascites. Bladder is decompressed. Bony structures are nonacute. IMPRESSION: Unremarkable noncontrast CT of the abdomen and pelvis. No acute feature is seen. No urinary tract calculi or obstruction is identified. Dictated on workstation # [id number] Dict: 06/06/21 1118 Trans: 06/06/21 1126 [facility] [id number] Interpreted by: MAYUR WAHL MD Electronically signed by: Impression Primary Impression: Urinary tract infection Disposition: 01 HOME, SELF-CARE Condition: Stable Departure-Patient Inst. Decision time for Depature: 12:00 Referrals: [facility] (PCP/Family) Primary Care Physician Patient Instructions: Urinary Tract Infection, Adult (DC) Add. Discharge Instructions: 1. Antibiotic as directed return to ER for any concerns follow-up with your doctor next week. All discharge instructions reviewed with patient and/or family. Voiced understanding. Scripts Cefuroxime Axetil (Cefuroxime) 250 Mg Tablet 250 MG PO BID, #10 TAB Prov: GREY MCKEON APRN 06/06/21 GREY MCKEON APRN Jun 06, 2021 10:58
[2021-06-06] MEDS ORDERED: LACTATED RINGERS 1,000 ML IV SCH (11:00)
[2021-06-06] MEDS ORDERED: KETOROLAC 30 MG/ML VIAL IVP ONE (11:00)
[2021-06-06 11:07] LABS: BILIRUBIN,URINE NEGATIVE (NEGATIVE); CLARITY,URINE CLEAR; COLOR,URINE YELLOW; GLUCOSE, URINE (UA) NEGATIVE (NEGATIVE); KETONES,URINE NEGATIVE (NEGATIVE); LEUKOCYTE ESTERASE ,URINE 1+ (NEGATIVE); NITRITE,URINE NEGATIVE (NEGATIVE); PROTEIN,URINE NEGATIVE (NEGATIVE)
[2021-06-06 11:15] LABS: BACTERIA,URINE FEW /HPF; SQUAMOUS EPITHELIAL CELL,UR 0-2 /HPF
--- NOTE | 2021-06-06 11:27 | Diagnostic Imaging Report ---
PROCEDURE: CT urinary tract, rule out kidney stone. TECHNIQUE: Multiple contiguous axial images were obtained through the abdomen and pelvis without the use of intravenous contrast. Auto Exposure Controls were utilized during the CT exam to meet ALARA standards for radiation dose reduction. INDICATION: Intermittent hematuria as well as back pain and bilateral flank pain. Comparison is made with prior CT from 09/02/2019. Lung bases are clear. Liver is unremarkable. Gallbladder surgically absent. No biliary ductal dilatation is seen. The pancreas and spleen are unremarkable. No adrenal mass is identified. No renal calculi are detected. No ureteral calculi or hydronephrosis is seen. Aorta is nonaneurysmal. Bowel loops are normal caliber. There is no ascites. Bladder is decompressed. Bony structures are nonacute. IMPRESSION: Unremarkable noncontrast CT of the abdomen and pelvis. No acute feature is seen. No urinary tract calculi or obstruction is identified. Dictated by: Dictated on workstation # [id number]
[2021-06-06] MEDS ORDERED: cefTRIAXone 1 GM PRE-MIX 50 ML IV ONE (11:30)
[2021-06-06 11:34] LABS: BASOPHILS % (AUTO) 0 % (0-10); EOSINOPHILS # (AUTO) 0.3 10^3/uL (0.0-0.3); EOSINOPHILS % (AUTO) 3 % (0-10); HEMATOCRIT 39 % (35-52); HEMOGLOBIN 12.5 g/dL (11.5-16.0); LYMPHOCYTES # (AUTO) 2.8 10^3/uL (1.0-4.0); LYMPHOCYTES % (AUTO) 30 % (12-44); MEAN CORPUSCULAR HEMOGLOBIN 31 pg (25-34); MEAN CORPUSCULAR HGB CONC 32 g/dL (32-36); MEAN CORPUSCULAR VOLUME 97 fL (80-99); MEAN PLATELET VOLUME 10.1 fL (9.0-12.2); MONOCYTES # (AUTO) 0.8 10^3/uL (0.0-1.0); MONOCYTES % (AUTO) 8 % (0-12); NEUTROPHILS # (AUTO) 5.4 10^3/uL (1.8-7.8); NEUTROPHILS % (AUTO) 58 % (42-75); PLATELET COUNT 270 10^3/uL (130-400); WHITE BLOOD COUNT 9.4 10^3/uL (4.3-11.0)
[2021-06-06 11:47] LABS: ALBUMIN 4.1 GM/DL (3.2-4.5); PROTHROMBIN TIME PATIENT 13.4 SEC (12.2-14.7)
[2021-06-06 11:48] LABS: POTASSIUM 3.6 MMOL/L (3.6-5.0)
[2021-06-06 11:49] LABS: CALCIUM 9.2 MG/DL (8.5-10.1)
[2021-06-06 11:50] LABS: TOTAL PROTEIN 7.4 GM/DL (6.4-8.2)
[2021-06-06 11:52] LABS: BILIRUBIN,TOTAL 0.2 MG/DL (0.1-1.0)
[2021-06-06 11:54] LABS: CREATININE SERUM 0.82 MG/DL (0.60-1.30)
[2021-06-06] MEDS ORDERED: CEFU250T80 PO (12:01)
[2021-06-06 12:59] VITALS: BP 128/73
== END 2021-06-06 12:59 | disposition home or self-care (01) ==
LOC: EDUNIT# 10:36 → ER 10:39
DX: N39.0 Urinary tract infection, site not specified (principal); J45.909 Unspecified asthma, uncomplicated; G89.29 Other chronic pain; M54.2 Cervicalgia; M54.9 Dorsalgia, unspecified; E03.9 Hypothyroidism, unspecified; F41.9 Anxiety disorder, unspecified; F32.9 Major depressive disorder, single episode, unspecified; K21.9 Gastro-esophageal reflux disease without esophagitis; Z79.891 Long term (current) use of opiate analgesic; Z79.890 Hormone replacement therapy; Z79.899 Other long term (current) drug therapy; Z79.82 Long term (current) use of aspirin
CPT/HCPCS: 36415; 74176; 80053; 81000; 85025; 85610; 87077; 87088

== ENCOUNTER → 2021-12-07 | Outpatient (CLI) | payer MEDICARE, MEDICAID ==
[~2021-12-07] MED LIST changes: -ASPI-789 PO; +ASPI1TAB23 PO; +CEFU250T80 PO
--- NOTE | 2021-12-07 11:31 | Diagnostic Imaging Report ---
INDICATION: Routine screening. COMPARISON is made with prior mammograms 02/23/2018 and 11/25/2015. 2-D and 3-D bilateral screening mammography was performed with CAD. Scattered fibroglandular densities are identified bilaterally. No mass or malignant-appearing microcalcifications are seen. Axillae are unremarkable. IMPRESSION: BI-RADS Category 1 No mammographic features suspicious for malignancy are identified. ACR BI-RADS Category 1: Negative. Result letter will be mailed to the patient. Note: At least 10% of breast cancer is not imaged by mammography. Dictated by: Dictated on workstation # [id number]
== END ==
LOC: RAD 08:00
PROVIDERS: ATTEND Internal Medicine
DX: Z12.31 Encounter for screening mammogram for malignant neoplasm of breast (principal); Z00.00 Encounter for general adult medical examination without abnormal findings
CPT/HCPCS: 77063; 77067

== ENCOUNTER 2022-08-08 08:28 | Emergency (ER) | payer MEDICARE, MEDICAID ==
[~2022-08-08] VITALS: Ht 157 cm; Wt 102.0 kg
--- NOTE | 2022-08-08 10:15 | ED General ---
General Chief Complaint: Respiratory Problems Stated Complaint: COVID + 08/07 - SOA Nursing Triage Note: PT AMB TO RM 10 PT CO OF BEING COVID + SINCE YESTERDAY, STATES SX STARTED ON TUESDAY HAS N/V COUGH VO. STATES WAS SOA TODAY. PT TAKING MOLNUPIRARVIR Source of Information: Patient Exam Limitations: No Limitations History of Present Illness Date Seen by Provider: Aug 08, 2022 Time Seen by Provider: 10:01 Initial Comments This 67-year-old woman presents to the emergency room with a diagnosis of COVID- 19 yesterday from a test performed at [facility]. She has had symptoms since August 05. She has had nausea and vomiting, cough, and shortness of breath. She denies diarrhea or fever. She has been taking molnupiravir since yesterday around 1600 and has completed 2 doses. She has a significant sore throat. She complains of rattling in her chest. She has not been vaccinated for COVID-19 or influenza. She has been taking Mucinex DM, Tylenol, vitamin C, zinc, vitamin D, and a multivitamin. Dr. Bai is her primary care provider. Allergies and Home Medications Allergies Coded Allergies: Penicillins (Unverified Allergy, Intermediate, HIVES, 07/24/10) meperidine (Unverified Allergy, Intermediate, HIVES, 07/24/10) codeine (Unverified Allergy, Mild, PALPITATIONS, 07/24/10) baclofen (Unverified Adverse Reaction, Unknown, dizzy, nausea, 09/07/17) divalproex sodium (Unverified Adverse Reaction, Unknown, 09/07/17) metaxalone (Unverified Adverse Reaction, Unknown, "bad for me", 09/07/17) methocarbamol (Unverified Adverse Reaction, Unknown, HOSTILE/AGGRESSION, 07/02/16) tizanidine (Unverified Adverse Reaction, Unknown, drowsy, 09/07/17) Patient Home Medication List Home Medication List Reviewed: Yes Alendronate Sodium (Alendronate Sodium) 70 Mg Tablet, 70 MG PO MON, (Reported) Entered as Reported by: MARCO GALVAN on 09/30/20 1140 Aspirin (Aspirin EC) 325 Mg Tablet.dr, 325 MG PO 1200, (Reported) Entered as Reported by: MARCO GALVAN on 09/30/20 114 Azithromycin (Azithromycin) 250 Mg Tablet, 250 MG PO UD Prescribed by: JEFFERSON GOFF on 08/08/22 1303 Brexpiprazole (Rexulti) 2 Mg Tablet, 2 MG PO DAILY, (Reported) Entered as Reported by: MARCO GALVAN on 09/30/20 114 Buspirone HCl (Buspirone HCl) 10 Mg Tablet, 10 MG PO BID, (Reported) Entered as Reported by: MARCO GALVAN on 09/30/20 114 Cefuroxime Axetil (Cefuroxime) 250 Mg Tablet, 250 MG PO BID Prescribed by: GREY MCKEON on 06/06/21 1201 Celecoxib (Celecoxib) 200 Mg Capsule, 200 MG PO DAILY, (Reported) Entered as Reported by: MARCO GALVAN on 09/30/20 114 Cholecalciferol (Vitamin D3) (Vitamin D3) 25 Mcg Capsule, 25 MCG PO 1200, (Reported) Entered as Reported by: MARCO GALVAN on 09/30/20 114 Gabapentin (Gabapentin) 100 Mg Capsule, 100 MG PO BID, (Reported) Entered as Reported by: MARCO GALVAN on 09/30/20 114 Hydrocodone/Acetaminophen (Hydrocodone-Acetamin 7.5-325) 1 Each Tablet, 1 EA PO TID PRN for PAIN-MODERATE (5-7), (Reported) Entered as Reported by: MARCO GALVAN on 09/30/20 114 Levothyroxine Sodium (Levothyroxine Sodium) 75 Mcg Tablet, 75 MCG PO DAILY, (Reported) Entered as Reported by: PAULIE SUMMERS on 10/06/17 1428 Metoprolol Succinate (Metoprolol Succinate) 25 Mg Tab.er.24h, 25 MG PO HS, (Reported) Entered as Reported by: MARCO GALVAN on 09/30/20 114 Multivitamin (Multivitamin) 1 Each Tablet, 1 EACH PO 1200, (Reported) Entered as Reported by: MARCO GALVAN on 09/30/20 114 [place]-3/Dha/Epa/Fish Oil (Fish Oil 1,000 mg Softgel) 1 Each Capsule, 3 EACH PO 1200, (Reported) Entered as Reported by: MARCO GALVAN on 09/30/20 1140 Ondansetron (Ondansetron Odt) 4 Mg Tab.rapdis, 4 MG SL Q4H PRN for NAUSEA/VOMITING Prescribed by: JEFFERSON GOFF on 08/08/22 1303 Orphenadrine Citrate (Orphenadrine Citrate) 100 Mg Tablet.er, 100 MG PO BID, (Reported) Entered as Reported by: PAULIE SUMMERS on 10/06/17 1428 Pantoprazole Sodium (Pantoprazole Sodium) 40 Mg Tablet.dr, 40 MG PO DAILY, (Reported) Entered as Reported by: FLY HAIR on 07/03/16 0114 Topiramate (Topiramate) 200 Mg Tablet, 200 MG PO BID, (Reported) Entered as Reported by: FIDENCIO DENT on 07/02/16 2208 [Cbd Oil] , DROP SL DAILY, (Reported) Entered as Reported by: MARCO GALVAN on 09/30/20 1140 Review of Systems Review of Systems Constitutional: no symptoms reported EENTM: see HPI Respiratory: see HPI Cardiovascular: no symptoms reported Gastrointestinal: see HPI Genitourinary: no symptoms reported : No Musculoskeletal: no symptoms reported Skin: no symptoms reported Psychiatric/Neurological: No Symptoms Reported Hematologic/Lymphatic: No Symptoms Reported Immunological/Allergic: no symptoms reported Past Pkjtbcx-Gywbar-Pjayvh Hx Patient Social History Tobacco Use?: No Substance use?: Yes (CBD oil) Alcohol Use?: No Immunizations Up To Date PED Vaccines UTD: No Influenza Vaccine Up-to-Date: No; Not Current First/Initial COVID19 Vaccinat: NO Second COVID19 Vaccination Stefano: NO Third COVID19 Vaccination Date: NO Seasonal Allergies Seasonal Allergies: No Past Medical History Surgery/Hospitalization HX: HYST,GB,APPY, C-SECTIONS X2, ACID REFLUX, OSTEOPOROSIS, FIBRO, CHRONIC PAIN Surgeries: Yes (colon resection, r knee scope) Abdominal, Appendectomy, Bowel Surgery, Cardiac (loop recorder), Section, Gallbladder, Hysterectomy, Neurological, Orthopedic (Right knee, left elbow and shoulder, carpel tunnel), Tonsillectomy Respiratory: Yes Asthma Currently Using CPAP: No Currently Using BIPAP: No Cardiac: Yes (" THEY THINK IT'S FROM ANXIETY.") Angina, Palpitations Neurological: Yes (Reflex Sympathetic Distrophy) Headaches /Migraines : No Female Reproductive Disorders: Denies [employer] History: Menopausal Sexually Transmitted Disease: No HIV/AIDS: No Genitourinary: No Gastrointestinal: Yes Gastroesophageal Reflux, Chronic Constipation, Chronic Diarrhea, Ulcer, Irritable Bowel Musculoskeletal: Yes (CHRONIC NECK PAIN; RSD, plantar fascitis) Osteoporosis, Fibromyalgia, Chronic Back Pain Endocrine: Yes (HYPOGLYCEMIC) Hypothyroidsim HEENT: Yes (Vision changes in right eye, 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 ear.) Loss of Vision: Right Hearing Impairment: Deaf Cancer: No Did You Recieve Any Treatments: No Psychosocial: Yes Anxiety, Depression Integumentary: No Blood Disorders: No Adverse Reaction/Blood Tranf: No Family Medical History Congenital heart disease Diabetes mellitus G8 BROTHER, Onset:Unknown Irregular heart beat 19 FATHER, , Onset:Unknown G8 SISTER, Onset:Unknown Myocardial infarction G8 BROTHER, Onset:Unknown Heart Disease, CAD Over 55 Years Old, Diabetes Physical Exam Vital Signs Vital Signs - First Documented 08/08/22 08/08/22 08:40 13:21 Temp 37.0 Pulse 88 Resp 18 B/P (MAP) 128/77 (94) Pulse Ox 94 O2 Delivery Room Air Capillary Refill : Less Than 3 Seconds Height, Weight, BMI Height: 5'1.00" Weight: 225lbs. 1.0oz. 102.045954zw; 41.00 BMI Method:Stated General Appearance: No Apparent Distress, WD/WN HEENT: PERRL/EOMI, TMs Normal, Normal ENT Inspection, Pharynx Normal Neck: Normal Inspection; No JVD Respiratory: Lungs Clear, Normal Breath Sounds, No Accessory Muscle Use Cardiovascular: Regular Rate, Rhythm, No Edema, No Murmur Gastrointestinal: Normal Bowel Sounds, Non Tender, Soft Extremity: Normal Inspection, No Pedal Edema Neurologic/Psychiatric: Alert, Oriented x3, No Motor/Sensory Deficits, Normal Mood/Affect Skin: Normal Color, Warm/Dry Progress/Results/Core Measures Suspected Sepsis SIRS Temperature: Pulse: 88 Respiratory Rate: 18 Laboratory Tests 08/08/22 09:05: White Blood Count 11.1H Blood Pressure 128 /77 Mean: 94 Laboratory Tests 08/08/22 09:05: Creatinine 0.74, Platelet Count 213, Total Bilirubin 0.2 Results/Orders Lab Results Laboratory Tests Test 08/08/22 09:05 08/08/22 11:55 Range/Units White Blood Count 11.1 H 4.3-11.0 10^3/uL Red Blood Count 4.08 3.80-5.11 10^6/uL Hemoglobin 12.5 11.5-16.0 g/dL Hematocrit 37 35-52 % Mean Corpuscular Volume 91 80-99 fL Mean Corpuscular Hemoglobin 31 25-34 pg Mean Corpuscular Hemoglobin Concent 34 32-36 g/dL Red Cell Distribution Width 13.0 10.0-14.5 % Platelet Count 213 130-400 10^3/uL Mean Platelet Volume 10.0 9.0-12.2 fL Immature Granulocyte % (Auto) 0 % Neutrophils (%) (Auto) 79 H 42-75 % Lymphocytes (%) (Auto) 8 L 12-44 % Monocytes (%) (Auto) 12 0-12 % Eosinophils (%) (Auto) 0 0-10 % Basophils (%) (Auto) 0 0-10 % Neutrophils # (Auto) 8.8 H 1.8-7.8 10^3/uL Lymphocytes # (Auto) 0.9 L 1.0-4.0 10^3/uL Monocytes # (Auto) 1.3 H 0.0-1.0 10^3/uL Eosinophils # (Auto) 0.0 0.0-0.3 10^3/uL Basophils # (Auto) 0.0 0.0-0.1 10^3/uL Immature Granulocyte # (Auto) 0.0 0.0-0.1 10^3/uL Sodium Level 130 L 135-145 MMOL/L Potassium Level 3.5 L 3.6-5.0 MMOL/L Chloride Level 98 98-107 MMOL/L Carbon Dioxide Level 20 L 21-32 MMOL/L Anion Gap 12 5-14 MMOL/L Blood Urea Nitrogen 10 7-18 MG/DL Creatinine 0.74 0.60-1.30 MG/DL Estimat Glomerular Filtration Rate 89 BUN/Creatinine Ratio 14 Glucose Level 155 H 70-105 MG/DL Calcium Level 8.4 L 8.5-10.1 MG/DL Corrected Calcium 8.6 8.5-10.1 MG/DL Magnesium Level 1.8 1.6-2.4 MG/DL Total Bilirubin 0.2 0.1-1.0 MG/DL Aspartate Amino Transf (AST/SGOT) 30 5-34 U/L Alanine Aminotransferase (ALT/SGPT) 16 0-55 U/L Alkaline Phosphatase 64 40-136 U/L Total Protein 6.8 6.4-8.2 GM/DL Albumin 3.7 3.2-4.5 GM/DL Urine Color YELLOW Urine Clarity CLEAR Urine pH 6.0 5-9 Urine Specific [place] 1.020 1.016-1.022 Urine Protein TRACE H NEGATIVE Urine Glucose (UA) NEGATIVE NEGATIVE Urine Ketones NEGATIVE NEGATIVE Urine Nitrite NEGATIVE NEGATIVE Urine Bilirubin NEGATIVE NEGATIVE Urine Urobilinogen 0.2 < = 1.0 MG/DL Urine Leukocyte Esterase NEGATIVE NEGATIVE Urine RBC (Auto) TRACE-I H NEGATIVE Urine RBC RARE /HPF Urine WBC NONE /HPF Urine Squamous Epithelial Cells RARE /HPF Urine Crystals NONE /LPF Urine Bacteria NEGATIVE /HPF Urine Casts NONE /LPF Urine Mucus NEGATIVE /LPF Urine Culture Indicated NO My Orders Orders - JEFFERSON ROMAN MD Cbc With Automated Diff (08/08/22 10:16) Comprehensive Metabolic Panel (08/08/22 10:16) Magnesium (08/08/22 10:16) Ua Culture If Indicated (08/08/22 10:16) Ed Iv/Invasive Line Start (08/08/22 10:16) Lactated Ringers (Lr 1000 Ml Iv Solution (08/08/22 10:30) Ondansetron Injection (Zofran Injectio (08/08/22 10:30) Ketorolac Injection (Toradol Injection) (08/08/22 10:30) Chest 1 View, Ap/Pa Only (08/08/22 10:23) Medications Given in ED Vital Signs/I&O 08/08/22 08/08/22 08:40 13:21 Temp 37.0 Pulse 88 79 Resp 18 18 B/P (MAP) 128/77 (94) 111/73 Pulse Ox 94 94 O2 Delivery Room Air Capillary Refill : Less Than 3 Seconds Blood Pressure Mean: 94 Progress Note : Progress Note Venessa was treated with IVF for hydration, Zofran for nausea and Toradol for pain. Labs including CBC, CMP, Mag and UA were reviewed. There were minor electrolyte abnormalities but not major problems identified. Chest x-ray report was reviewed as below. Due to her symptoms, x-ray findings of possible infiltrated, lack of vaccination, comorbidities, and borderline oxygen saturations that range from 91-97%, I am adding Azithromycin to her treatment regimen. She discharge instructions for Rx and further discussion. Diagnostic Imaging Diagonstic Imaging: Xray Plain Films/CT/US/NM/MRI: chest Comments NAME: VENESSA MURRAY [facility] REC#: [id number] PT STATUS: REG ER : 1955 PHYSICIAN: JEFFERSON ROMAN MD ADMIT DATE: 08/08/22/ER Signed Date of Exam:08/08/22 CHEST 1 VIEW, AP/PA ONLY INDICATION: Shortness of air, COVID-19. COMPARISON: 09/30/2020. TECHNIQUE: Single radiograph of the chest dated 08/08/2022. FINDINGS: Loop recorder is again noted overlying the left heart border. The cardiac silhouette is at the upper limits of normal in size. No significant pulmonary vascular congestion. Low lung volumes with mild bibasilar interstitial opacities, greatest in the medial left lung base. No significant pleural effusion. No pneumothorax. No acute osseous abnormality. IMPRESSION: Low lung volumes with bibasilar atelectasis and/or pneumonitis. Borderline prominence of the cardiac silhouette, likely accentuated by low lung volumes. Loop recorder is in place. Dictated by: Dictated on workstation # [id number] Dict: 08/08/22 1108 Trans: 08/08/22 1141 [id number] Interpreted by: RENEE MAX MD Electronically signed by: RENEE MAX MD 08/08/22 1141 Departure Impression Primary Impression: COVID-19 Additional Impressions: Nausea & vomiting Qualified Codes: R11.2 - Nausea with vomiting, unspecified Sore throat Disposition: HOME, SELF-CARE Condition: Improved Departure-Patient Inst. Decision time for Depature: 13:01 Referrals: [facility] (PCP/Family) Primary Care Physician Patient Instructions: COVID-19 ED Add. Discharge Instructions: Drink plenty of clear liquids to stay well-hydrated. Continue on your other medications as previously directed. Use the Zofran (ondansetron) as prescribed for nausea and vomiting. Complete the entire course of azithromycin as prescribed. Monitor your oxygen saturations. If you are getting multiple measurements below 92% or any measurements that are under 90%, return to care for further evaluation. Exercise deep breathing often, several times per hour. Maintain mobility and get up to walk often. Change positions often when lying down. Intermittently lie on your abdomen if tolerated. Return to care if you have any other worsening of symptoms that need evaluated in the emergency room. Take Tylenol (acetaminophen) up to 1000 mg every 6 hours as needed for fever or pain. Remain in quarantine for a full 5 days from your first full day of symptoms. If your symptoms have significantly improved by then, you may come out of quarantine but should continue to mask for an additional 5 days. All discharge instructions reviewed with patient and/or family. Voiced understanding. Scripts Azithromycin (Azithromycin) 250 Mg Tablet 250 MG PO UD, #6 TAB TAKE 2 TABLETS ON DAY ONE THEN TAKE 1 TABLET DAILY FOR FOUR MORE DAYS Prov: JEFFERSON ROMAN MD 08/08/22 Ondansetron (Ondansetron Odt) 4 Mg Tab.rapdis 4 MG SL Q4H PRN for NAUSEA/VOMITING, #10 TAB Prov: JEFFERSON ROMAN MD 08/08/22 Copy Copies To 1: JOE BAI MD, JOSHUA T MD Aug 08, 2022 10:15
[2022-08-08 10:22] LABS: BASOPHILS % (AUTO) 0 % (0-10); EOSINOPHILS % (AUTO) 0 % (0-10); HEMATOCRIT 37 % (35-52); HEMOGLOBIN 12.5 g/dL (11.5-16.0); LYMPHOCYTES # (AUTO) 0.9 10^3/uL (1.0-4.0); LYMPHOCYTES % (AUTO) 8 % (12-44); MEAN CORPUSCULAR HEMOGLOBIN 31 pg (25-34); MEAN CORPUSCULAR HGB CONC 34 g/dL (32-36); MEAN CORPUSCULAR VOLUME 91 fL (80-99); MONOCYTES # (AUTO) 1.3 10^3/uL (0.0-1.0); MONOCYTES % (AUTO) 12 % (0-12); NEUTROPHILS # (AUTO) 8.8 10^3/uL (1.8-7.8); NEUTROPHILS % (AUTO) 79 % (42-75); PLATELET COUNT 213 10^3/uL (130-400); WHITE BLOOD COUNT 11.1 10^3/uL (4.3-11.0)
[2022-08-08 10:28] LABS: ALBUMIN 3.7 GM/DL (3.2-4.5); POTASSIUM 3.5 MMOL/L (3.6-5.0)
[2022-08-08 10:29] LABS: CALCIUM 8.4 MG/DL (8.5-10.1)
[2022-08-08 10:30] LABS: TOTAL PROTEIN 6.8 GM/DL (6.4-8.2)
[2022-08-08] MEDS ORDERED: KETOROLAC 30 MG/ML VIAL IVP ONE (10:30)
[2022-08-08] MEDS ORDERED: ONDANSETRON 4 MG/2 ML (SDV) Z0FRAN IVP ONE (10:30)
[2022-08-08] MEDS ORDERED: LACTATED RINGERS 1,000 ML IV ONE (10:30)
[2022-08-08 10:32] LABS: BILIRUBIN,TOTAL 0.2 MG/DL (0.1-1.0)
[2022-08-08 10:34] LABS: CREATININE SERUM 0.74 MG/DL (0.60-1.30)
[2022-08-08 10:36] LABS: MAGNESIUM 1.8 MG/DL (1.6-2.4)
--- NOTE | 2022-08-08 11:13 | Diagnostic Imaging Report ---
INDICATION: Shortness of air, COVID-19. COMPARISON: 09/30/2020. TECHNIQUE: Single radiograph of the chest dated 08/08/2022. FINDINGS: Loop recorder is again noted overlying the left heart border. The cardiac silhouette is at the upper limits of normal in size. No significant pulmonary vascular congestion. Low lung volumes with mild bibasilar interstitial opacities, greatest in the medial left lung base. No significant pleural effusion. No pneumothorax. No acute osseous abnormality. IMPRESSION: Low lung volumes with bibasilar atelectasis and/or pneumonitis. Borderline prominence of the cardiac silhouette, likely accentuated by low lung volumes. Loop recorder is in place. Dictated by: Dictated on workstation # [id number]
[2022-08-08 12:10] LABS: BILIRUBIN,URINE NEGATIVE (NEGATIVE); CLARITY,URINE CLEAR; COLOR,URINE YELLOW; GLUCOSE, URINE (UA) NEGATIVE (NEGATIVE); KETONES,URINE NEGATIVE (NEGATIVE); LEUKOCYTE ESTERASE ,URINE NEGATIVE (NEGATIVE); NITRITE,URINE NEGATIVE (NEGATIVE); PROTEIN,URINE TRACE (NEGATIVE)
[2022-08-08 12:24] LABS: BACTERIA,URINE NEGATIVE /HPF; RBC,URINE RARE /HPF; SQUAMOUS EPITHELIAL CELL,UR RARE /HPF
[2022-08-08] MEDS ORDERED: ONDA4TAB11 SL (13:03)
[2022-08-08] MEDS ORDERED: AZIT250T12 PO (13:03)
[2022-08-08 13:21] VITALS: BP 111/73
== END 2022-08-08 13:21 | disposition home or self-care (01) ==
LOC: EDUNIT# 08:28 → ER 08:29
DX: U07.1 COVID-19 (principal); R05.9 Cough, unspecified; R06.02 Shortness of breath; R11.2 Nausea with vomiting, unspecified; J02.9 Acute pharyngitis, unspecified; Z88.1 Allergy status to other antibiotic agents
CPT/HCPCS: 36415; 71045; 80053; 81000; 83735; 85025

== ENCOUNTER 2022-08-10 20:28 | Emergency (ER) | payer MEDICARE, MEDICAID ==
[~2022-08-10 20:28] MED LIST changes: +AZIT250T12 PO; +ONDA4TAB11 SL
--- NOTE | 2022-08-10 21:04 | ED Cough/URI ---
General Chief Complaint: COVID19 Suspect/Confirmed Stated Complaint: COVID +, LOW OXYGEN LEVEL Nursing Triage Note: PT PRESENTS WITH C/O LOW O2 SATURATION AT HOME. RECENTLY DIAGNOSED WITH COVID, ON MEDICATION. Source: patient Exam Limitations: no limitations (MARICARMEN YO) History of Present Illness Date Seen by Provider: Aug 10, 2022 Time Seen by Provider: 21:03 Initial Comments Patient is a 67-year-old female who presents ED with evaluation for low oxygen levels at home. She has a pulse oximetry. Patient was diagnosed with COVID this past Tuesday. Patient was seen here in the ER on Tuesday for worsening symptoms. Patient was evaluated and was discharged safely with azithromycin, Zofran. She did have one vomiting episode yesterday with coughing fits but that has improved. She states today she started to build mucus in her lungs that sounded like rattling. Her pulse oximeter read 87%. This Improved to 95% after she coughed up the mucus. She states she is still coughing but feels much better today. No chest pain, current shortness of breath, abdominal pain, vomiting, diarrhea. Patient does not appear toxic or septic. She is resting comfortably. She has no current complaints but concerned that her oxygen was low today. (MARICARMEN YO) Allergies and Home Medications Allergies Coded Allergies: Penicillins (Unverified Allergy, Intermediate, HIVES, 07/24/10) meperidine (Unverified Allergy, Intermediate, HIVES, 07/24/10) codeine (Unverified Allergy, Mild, PALPITATIONS, 07/24/10) baclofen (Unverified Adverse Reaction, Unknown, dizzy, nausea, 09/07/17) divalproex sodium (Unverified Adverse Reaction, Unknown, 09/07/17) metaxalone (Unverified Adverse Reaction, Unknown, "bad for me", 09/07/17) methocarbamol (Unverified Adverse Reaction, Unknown, HOSTILE/AGGRESSION, 07/02/16) tizanidine (Unverified Adverse Reaction, Unknown, drowsy, 09/07/17) Patient Home Medication List Home Medication List Reviewed: Yes (MARICARMEN YO) Alendronate Sodium (Alendronate Sodium) 70 Mg Tablet, 70 MG PO MON, (Reported) Entered as Reported by: MARCO GALVAN on 09/30/20 1140 Aspirin (Aspirin EC) 325 Mg Tablet.dr, 325 MG PO 1200, (Reported) Entered as Reported by: MARCO GALVAN on 09/30/20 114 Azithromycin (Azithromycin) 250 Mg Tablet, 250 MG PO UD Prescribed by: JEFFERSON GOFF on 08/08/22 1303 Brexpiprazole (Rexulti) 2 Mg Tablet, 2 MG PO DAILY, (Reported) Entered as Reported by: MARCO GALVAN on 09/30/20 114 Buspirone HCl (Buspirone HCl) 10 Mg Tablet, 10 MG PO BID, (Reported) Entered as Reported by: MARCO GALVAN on 09/30/20 114 Cefuroxime Axetil (Cefuroxime) 250 Mg Tablet, 250 MG PO BID Prescribed by: GREY MCKEON on 06/06/21 1201 Celecoxib (Celecoxib) 200 Mg Capsule, 200 MG PO DAILY, (Reported) Entered as Reported by: MARCO GALVAN on 09/30/20 114 Cholecalciferol (Vitamin D3) (Vitamin D3) 25 Mcg Capsule, 25 MCG PO 1200, (Reported) Entered as Reported by: MARCO GALVAN on 09/30/20 114 Gabapentin (Gabapentin) 100 Mg Capsule, 100 MG PO BID, (Reported) Entered as Reported by: MARCO GALVAN on 09/30/20 114 Hydrocodone/Acetaminophen (Hydrocodone-Acetamin 7.5-325) 1 Each Tablet, 1 EA PO TID PRN for PAIN-MODERATE (5-7), (Reported) Entered as Reported by: MARCO GALVAN on 09/30/20 114 Levothyroxine Sodium (Levothyroxine Sodium) 75 Mcg Tablet, 75 MCG PO DAILY, (Reported) Entered as Reported by: PAULIE SUMMERS on 10/06/17 1428 Metoprolol Succinate (Metoprolol Succinate) 25 Mg Tab.er.24h, 25 MG PO HS, (Reported) Entered as Reported by: MARCO GALVAN on 09/30/20 114 Multivitamin (Multivitamin) 1 Each Tablet, 1 EACH PO 1200, (Reported) Entered as Reported by: MARCO GALVAN on 09/30/20 114 [place]-3/Dha/Epa/Fish Oil (Fish Oil 1,000 mg Softgel) 1 Each Capsule, 3 EACH PO 1200, (Reported) Entered as Reported by: MARCO GALVAN on 09/30/20 1140 Ondansetron (Ondansetron Odt) 4 Mg Tab.rapdis, 4 MG SL Q4H PRN for NAUSEA/ VOMITING Prescribed by: JEFFERSON GOFF on 08/08/22 1303 Orphenadrine Citrate (Orphenadrine Citrate) 100 Mg Tablet.er, 100 MG PO BID, (Reported) Entered as Reported by: PAULIE SUMMERS on 10/06/17 1428 Pantoprazole Sodium (Pantoprazole Sodium) 40 Mg Tablet.dr, 40 MG PO DAILY, (Reported) Entered as Reported by: FLY HAIR on 07/03/16 0114 Topiramate (Topiramate) 200 Mg Tablet, 200 MG PO BID, (Reported) Entered as Reported by: FIDENCIO DENT on 07/02/16 2208 [Cbd Oil] , DROP SL DAILY, (Reported) Entered as Reported by: MARCO GALVAN on 09/30/20 1140 Review of Systems Review of Systems Constitutional: No diaphoresis, No malaise, No weakness EENTM: No ear pain, No blurred vision, No double vision, No hoarseness, No throat pain, No throat swelling Respiratory: cough, short of breath Gastrointestinal: No abdominal pain, No diarrhea, No nausea; vomiting Musculoskeletal: No back pain, No gout Skin: No change in color, No change in hair/nails (MARICARMEN YO) All Other Systems Reviewed Negative Unless Noted: Yes (MARICARMEN YO) Past Dsuqjee-Ddjctw-Qasfqq Hx Immunizations Up To Date PED Vaccines UTD: No Influenza Vaccine Up-to-Date: No; Not Current First/Initial COVID19 Vaccinat: NO Second COVID19 Vaccination Stefano: NO Third COVID19 Vaccination Date: NO (MARICARMEN YO) Seasonal Allergies Seasonal Allergies: No (MARICARMEN YO) Past Medical History Surgery/Hospitalization HX: HYST,GB,APPY, C-SECTIONS X2, ACID REFLUX, OSTEOPOROSIS, FIBRO, CHRONIC PAIN Surgeries: Yes (colon resection, r knee scope) Abdominal, Appendectomy, Bowel Surgery, Cardiac, Section, Gallbladder, Hysterectomy, Neurological, Orthopedic, Tonsillectomy Respiratory: Yes Asthma Currently Using CPAP: No Currently Using BIPAP: No Cardiac: Yes (" THEY THINK IT'S FROM ANXIETY.") Angina, Palpitations Neurological: Yes (Reflex Sympathetic Distrophy) Headaches /Migraines Female Reproductive Disorders: Denies [employer] History: Menopausal Sexually Transmitted Disease: No HIV/AIDS: No Genitourinary: No Gastrointestinal: Yes Gastroesophageal Reflux, Chronic Constipation, Chronic Diarrhea, Ulcer, Irritable Bowel Musculoskeletal: Yes (CHRONIC NECK PAIN; RSD, plantar fascitis) Osteoporosis, Fibromyalgia, Chronic Back Pain Endocrine: Yes (HYPOGLYCEMIC) Hypothyroidsim HEENT: Yes (Vision changes in right eye, 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 ear.) Loss of Vision: Right Hearing Impairment: Deaf Cancer: No Did You Recieve Any Treatments: No Psychosocial: Yes Anxiety, Depression Integumentary: No Blood Disorders: No Adverse Reaction/Blood Tranf: No (MARICARMEN YO) Family Medical History Congenital heart disease Diabetes mellitus G8 BROTHER, Onset:Unknown Irregular heart beat 19 FATHER, , Onset:Unknown G8 SISTER, Onset:Unknown Myocardial infarction G8 BROTHER, Onset:Unknown Heart Disease, CAD Over 55 Years Old, Diabetes (MARICARMEN YO) Physical Exam Vital Signs - First Documented 08/10/22 08/10/22 20:40 21:20 Temp 36.4 Pulse 69 Resp 18 B/P (MAP) 144/77 (99) O2 Delivery Room Air (JEFFERSON ROMAN MD) Capillary Refill : Less Than 3 Seconds (MARICARMEN YO) Height: 5'1.00" Weight: 225lbs. 1.0oz. [id number]; 41.00 BMI Method:Stated General Appearance: WD/WN, no apparent distress Eyes: Bilateral Eye Normal Inspection, Bilateral Eye PERRL, Bilateral Eye EOMI HEENT: PERRL/EOMI, normal ENT inspection, TMs normal, pharynx normal Neck: non-tender, full range of motion, supple Respiratory: chest non-tender, lungs clear, normal breath sounds, no respiratory distress, no accessory muscle use Cardiovascular: regular rate, rhythm, no edema, no gallop, no JVD Gastrointestinal: normal bowel sounds, non tender, soft, no organomegaly Extremities: normal range of motion, non-tender, normal inspection, no pedal edema, no calf tenderness Neurologic/Psychiatric: ocular care aide II-XII nml as tested, no motor/sensory deficits, alert, normal mood/affect, oriented x 3 Skin: normal color, warm/dry (MARICARMEN YO) Progress/Results/Core Measures Suspected Sepsis SIRS Temperature: Pulse: 69 Respiratory Rate: 18 Blood Pressure 144 /77 Mean: 99 (MARICARMEN YO) Results/Orders Vital Signs/I&O 08/10/22 08/10/22 08/10/22 20:40 21:20 21:21 Temp 36.4 36.4 Pulse 69 69 Resp 18 18 B/P (MAP) 144/77 (99) 144/77 O2 Delivery Room Air Room Air (JEFFERSON ROMAN MD) Vital Signs/I&O Capillary Refill : Less Than 3 Seconds (MARICARMEN YO) Blood Pressure Mean: 99 Departure Communication (PCP) Patient appears well and nontoxic. She states she has improved since yesterday. Patient was concern since her oxygen dropped at home at 87%. On arrival 96%. She has no current complaints. She was seen here Tuesday diagnosed with pneumonia confirmed on x-ray likely viral. COVID-positive at [facility] on Tuesday. She was given azithromycin. She states she is improving feels comfortable while sitting. She had one episode where she was wheezing and cough with improvement. Discussed all results with patient. Patient requesting no further work-up or lab work at this time. She has no current chest pain or shortness of breath. Denies history of cancer, COPD, asthma, coronary artery disease. Discussed in detail about her oxygen level. Since patient has remained over 93% during this visit, i feel like it safe for her to be discharge home. Walking oxygen 96% on room air. Patient states she feels comfortable to go home. Discussed with patient if she has increased shortness of breath with wheezing and have an oxygen level below 90% for several minutes without improvement with rest or sitting down to return back to ED. Continue with azithromycin. Patient oxygen at discharge was 96% on room air. She requesting no further work-up at this time. I do think this is reasonable since she is currently asymptomatic and she states her symptoms are feeling much better today. (MARICARMEN YO) Impression Primary Impression: COVID-19 Disposition: 01 HOME, SELF-CARE Condition: Stable Departure-Patient Inst. Decision time for Depature: 21:18 (MARICARMEN YO) [place]: [facility] [place] Primary Care Physician Patient Instructions: COVID-19 (DC) Add. Discharge Instructions: Continue monitoring oxygen at home. If pulse ox reads below 90% on room air for several minutes without improvement with rest and sitting to return back to ED. All discharge instructions reviewed with patient and/or family. Voiced understanding. ATTENDING PHYSICIAN NOTE: I was physically present as attending physician in the emergency department during the care of this patient, but I was not directly involved in the decision making or delivery of care for this patient. (JEFFERSON ROMAN MD) MARICARMEN YO Aug 10, 2022 21:04 JEFFERSON ROMAN MD Aug 12, 2022 10:07
[2022-08-10 21:21] VITALS: BP 144/77
== END 2022-08-10 21:30 | disposition home or self-care (01) ==
LOC: EDUNIT# 20:28 → ER 20:29
DX: U07.1 COVID-19 (principal); R05.9 Cough, unspecified; R06.2 Wheezing; Z28.310 Unvaccinated for COVID-19; Z88.0 Allergy status to penicillin; Z73.0 Burn-out
CPT/HCPCS: 99282

== ENCOUNTER → 2022-09-30 | Outpatient (CLI) | payer MEDICARE, MEDICAID ==
--- NOTE | 2022-09-30 15:03 | Diagnostic Imaging Report ---
PROCEDURE: MRI left joint lower extremity without contrast. TECHNIQUE: Multiplanar, multisequence non contrast-enhanced MRI of the left lower extremity was accomplished. INDICATION: Left knee pain after injury 2 weeks ago. COMPARISON: None. FINDINGS: No acute fracture is seen in the left knee. Alignment appears normal. There is a small left knee joint effusion. The cartilage in the patellofemoral compartment demonstrates mild thinning and surface irregularity. The cartilage in the medial and lateral compartments demonstrates no full-thickness defects. The medial and lateral menisci appear intact. The anterior and posterior cruciate ligaments are intact. The medial collateral ligament appears intact. The lateral collateral ligamentous complex appears intact. The extensor mechanism is intact. The medial and lateral retinacula are intact. There is a heterogeneous fluid collection anterior to the patellar tendon extending below the gixly-yw-pgoz and beginning at the inferior aspect of the patella. This measures up to 5.5 cm transverse, 1 cm AP, and at least 6.5 cm craniocaudal. There is surrounding subcutaneous edema. IMPRESSION: 1. Heterogeneous fluid collection anterior to the patellar tendon which may represent a subcutaneous hematoma or a traumatic bursitis. 2. Small left knee joint effusion. 3. No meniscus or ligament tear is seen in the left knee. Dictated by: Dictated on workstation # [id number]
== END ==
LOC: RAD 12:46
PROVIDERS: ATTEND Orthopaedic Surgery
DX: M25.462 Effusion, left knee (principal)
CPT/HCPCS: 73721

== ENCOUNTER 2022-10-15 08:42 | Outpatient (RCR) | payer MEDICARE, MEDICAID | END 2022-10-17 | disposition home or self-care (01) | PROVIDERS: ATTEND Orthopaedic Surgery | DX: M25.562 Pain in left knee (principal); I10 Essential (primary) hypertension; E11.9 Type 2 diabetes mellitus without complications; Z91.81 History of falling ==

== ENCOUNTER → 2022-10-19 | Outpatient (CLI) | payer MEDICARE, MEDICAID ==
--- NOTE | 2022-10-19 17:34 | Diagnostic Imaging Report ---
INDICATION: Postmenopausal screening for osteoporosis. COMPARISON: 02/23/2018. FINDINGS: AP Spine L1-L4: [BMD (g/cm2): 0.925] [T-Score: -2.3] [Z-Score: -1.7] [BMD Previous: 0.862] [BMD % Change: 7.3*] LT Hip Neck: [BMD (g/cm2): 0.727] [T-Score: -2.2] [Z-Score: -1.4] LT Hip Total: [BMD (g/cm2):0.755] [T-Score:-2.0] [Z-Score: -1.5] [BMD Previous: 0.688] [BMD % Change: 9.7*] RT Hip Neck: [BMD (g/cm2):0.704] [T-Score:-2.4] [Z-Score:-1.6] RT Hip Total: [BMD (g/cm2):0.695] [T-score:-2.5] [Z-Score:-2.0] [BMD Previous:0.662] [BMD % Change:5.0] *Indicates significant change from prior examination based on 95% confidence level. World Health Organization criteria for BMD interpretation classify patients as Normal (T-score at or above -1.0), Osteopenic (T-score between -1.0 and -2.5) or Osteoporotic (T-score at or below -2.5). LIMITATIONS AND MODIFICATION: None. FRACTURE RISK (FRAX SCORE): The ten year probability of (%): Major Osteoporotic Fracture: [20.5] Hip Fracture: [3.0] IMPRESSION: 1. Osteopenia (Low bone mass). 2. There has been a statistically significant increase in BMD since prior exam, detailed above. 3. See below National Osteoporosis Foundation guidelines on when to potentially initiate pharmacologic therapy. Based on the National Osteoporosis Foundation Guidelines, pharmacologic treatment should be initiated in any of the following, unless clinical conditions suggest otherwise: * Any patient with prior fragility fracture of the hip or vertebrae. A spine fracture indicates 5X risk for subsequent spine fracture and 2X risk for subsequent hip fracture. * Osteoporosis (T-score <-2.5). * Postmenopausal women and men age 50 and older with low bone mass/osteopenia (T-score between -1.0 and -2.5) by DXA and 10-year major osteoporotic fracture greater than 20% or a 10-year probability of hip fracture greater than 3%. These fracture risks are supplied above in the FRAX score, if applicable. * Clinician judgement and/or patient preferences may indicate treatment for people with 10-year fracture probabilities above or below these levels. Dictated by: Dictated on workstation # [id number]
== END ==
LOC: RAD 13:42
PROVIDERS: ATTEND Internal Medicine
DX: Z13.820 Encounter for screening for osteoporosis (principal); M85.80 Other specified disorders of bone density and structure, unspecified site; Z78.0 Asymptomatic menopausal state
CPT/HCPCS: 77080

== ENCOUNTER 2022-10-29 13:41 | Outpatient (RCR) | payer MEDICARE, MEDICAID ==
[~2022-10-29 13:41] MED LIST changes: +ORPH100T3 PO
== END 2022-10-29 14:20 | disposition home or self-care (01) ==
PROVIDERS: ATTEND Orthopaedic Surgery
DX: S80.02XD Contusion of left knee, subsequent encounter (principal); M76.52 Patellar tendinitis, left knee; I10 Essential (primary) hypertension; E11.9 Type 2 diabetes mellitus without complications; W01.0XXD Fall on same level from slipping, tripping and stumbling without subsequent striking against object, subsequent encounter

== ENCOUNTER 2022-12-10 14:44 | Emergency (ER) | payer MEDICARE, MEDICAID ==
[~2022-12-10] VITALS: Ht 152 cm; Wt 96.0 kg
--- NOTE | 2022-12-10 15:20 | ED General ---
General Chief Complaint: Dizziness/Syncope Stated Complaint: DIZZINESS | NAUSEA Nursing Triage Note: PT TO RM 8 PER W/C. PT STATES HAS HAD DIZZINESS SINCE 11/23, HAS HAD MED CHANGES. PT IN ABD AT TIMES. PT ALSO CO OF NAUSEA. PT HAS HX OF A-FIB AND WAS STARTED ON ELAQUIS Source of Information: Patient Exam Limitations: No Limitations History of Present Illness Date Seen by Provider: Dec 10, 2022 Time Seen by Provider: 14:58 Initial Comments Here with report of dizziness intermittently since 23 November. She had a sustained episode of atrial fibrillation noted on her loop recorder and was initiated on Eliquis. She started having nausea and more dizziness and ultimately that was changed to Pradaxa and then changed back to Eliquis when she could not tolerate the Pradaxa. She is currently on Eliquis. She has seen her PCP for the dizziness and they thought this may be related to middle ear effusions bilateral and I started her on Flonase and Zyrtec. This did help some but she still had some dizziness. She comes in today with persistent episodes of dizziness. She has tried [id number] Bonine and that has not helped. She is very worried that there may be adverse effect with Eliquis. Denies injury or concerns or falls. States that dizziness is better when she is laying down and worse when she is standing up. It persists despite no changes and movement. Timing/Duration: Other (2-1/2 weeks) Severity: Mild, Moderate Associated Systoms: No Cough, No Fever/Chills, No Nausea/Vomiting, No Shortness of Air, No Weakness Allergies and Home Medications Allergies Coded Allergies: Penicillins (Unverified Allergy, Intermediate, HIVES, 07/24/10) meperidine (Unverified Allergy, Intermediate, HIVES, 07/24/10) codeine (Unverified Allergy, Mild, PALPITATIONS, 07/24/10) vortioxetine (Verified Allergy, Unknown, 12/10/22) baclofen (Unverified Adverse Reaction, Unknown, dizzy, nausea, 09/07/17) divalproex sodium (Unverified Adverse Reaction, Unknown, 09/07/17) metaxalone (Unverified Adverse Reaction, Unknown, "bad for me", 09/07/17) methocarbamol (Unverified Adverse Reaction, Unknown, HOSTILE/AGGRESSION, 07/02/16) tizanidine (Unverified Adverse Reaction, Unknown, drowsy, 09/07/17) Patient Home Medication List Home Medication List Reviewed: Yes Alendronate Sodium (Alendronate Sodium) 70 Mg Tablet, 70 MG PO MON, (Reported) Entered as Reported by: MARCO GALVAN on 09/30/20 1140 Aspirin (Aspirin EC) 325 Mg Tablet.dr, 325 MG PO 1200, (Reported) Entered as Reported by: MARCO GALVAN on 09/30/20 1140 Azithromycin (Azithromycin) 250 Mg Tablet, 250 MG PO UD Prescribed by: JEFFERSON GOFF on 08/08/22 1303 Brexpiprazole (Rexulti) 2 Mg Tablet, 2 MG PO DAILY, (Reported) Entered as Reported by: MARCO GALVAN on 09/30/20 114 Buspirone HCl (Buspirone HCl) 10 Mg Tablet, 10 MG PO BID, (Reported) Entered as Reported by: MARCO GALVAN on 09/30/20 114 Cefuroxime Axetil (Cefuroxime) 250 Mg Tablet, 250 MG PO BID Prescribed by: GREY MCKEON on 06/06/21 1201 Celecoxib (Celecoxib) 200 Mg Capsule, 200 MG PO DAILY, (Reported) Entered as Reported by: MARCO GALVAN on 09/30/20 114 Cholecalciferol (Vitamin D3) (Vitamin D3) 25 Mcg Capsule, 25 MCG PO 1200, (Reported) Entered as Reported by: MARCO GALVAN on 09/30/20 114 Gabapentin (Gabapentin) 100 Mg Capsule, 100 MG PO BID, (Reported) Entered as Reported by: MARCO GALVAN on 09/30/20 1140 Hydrocodone/Acetaminophen (Hydrocodone-Acetamin 7.5-325) 1 Each Tablet, 1 EA PO TID PRN for PAIN-MODERATE (5-7), (Reported) Entered as Reported by: MARCO GALVAN on 09/30/20 1140 Levothyroxine Sodium (Levothyroxine Sodium) 75 Mcg Tablet, 75 MCG PO DAILY, (Reported) Entered as Reported by: PAULIE SUMMERS on 10/06/17 1428 Metoprolol Succinate (Metoprolol Succinate) 25 Mg Tab.er.24h, 25 MG PO HS, (Reported) Entered as Reported by: MARCO GALVAN on 09/30/20 1140 Multivitamin (Multivitamin) 1 Each Tablet, 1 EACH PO 1200, (Reported) Entered as Reported by: MARCO GALVAN on 09/30/20 1140 Newman-3/Dha/Epa/Fish Oil (Fish Oil 1,000 mg Softgel) 1 Each Capsule, 3 EACH PO 1200, (Reported) Entered as Reported by: MARCO GALVAN on 09/30/20 1140 Ondansetron (Ondansetron Odt) 4 Mg Tab.rapdis, 4 MG SL Q4H PRN for NAUSEA/VOMITING Prescribed by: JEFFERSON GOFF on 08/08/22 1303 Orphenadrine Citrate (Orphenadrine Citrate) 100 Mg Tablet.er, 100 MG PO BID, (Reported) Entered as Reported by: PAULIE SUMMERS on 10/06/17 1428 Pantoprazole Sodium (Pantoprazole Sodium) 40 Mg Tablet.dr, 40 MG PO DAILY, (Reported) Entered as Reported by: FLY HAIR on 07/03/16 0114 Topiramate (Topiramate) 200 Mg Tablet, 200 MG PO BID, (Reported) Entered as Reported by: FIDENCIO DENT on 07/02/16 2208 [Cbd Oil] , DROP SL DAILY, (Reported) Entered as Reported by: MARCO GALVAN on 09/30/20 1140 Review of Systems Review of Systems Constitutional: see HPI; No chills, No fever EENTM: other (Bilateral ear fullness); No nose congestion Respiratory: No cough, No short of breath Cardiovascular: No chest pain, No edema, No palpitations Gastrointestinal: No nausea, No vomiting Genitourinary: No dysuria Musculoskeletal: no symptoms reported Skin: no symptoms reported Psychiatric/Neurological: See HPI Past Zakjguv-Ewtuyo-Xdcmex Hx Patient Social History Tobacco Use?: No Substance use?: No Alcohol Use?: No Pt feels they are or have been: No Immunizations Up To Date PED Vaccines UTD: No First/Initial COVID19 Vaccinat: NO Second COVID19 Vaccination Stefano: NO Third COVID19 Vaccination Date: NO Seasonal Allergies Seasonal Allergies: No Past Medical History Surgery/Hospitalization HX: HYST,GB,APPY, C-SECTIONS X2, ACID REFLUX, OSTEOPOROSIS, FIBRO, CHRONIC PAIN Surgeries: Yes (colon resection, r knee scope) Abdominal, Appendectomy, Bowel Surgery, Cardiac, Section, Gallbladder, Hysterectomy, Neurological, Orthopedic, Tonsillectomy Respiratory: Yes Asthma Currently Using CPAP: No Currently Using BIPAP: No Cardiac: Yes (" THEY THINK IT'S FROM ANXIETY.") Angina, Palpitations Neurological: Yes (Reflex Sympathetic Distrophy) Headaches /Migraines Female Reproductive Disorders: Denies EVENT STAFF History: Menopausal Sexually Transmitted Disease: No HIV/AIDS: No Genitourinary: No Gastrointestinal: Yes Gastroesophageal Reflux, Chronic Constipation, Chronic Diarrhea, Ulcer, Irritable Bowel Musculoskeletal: Yes (CHRONIC NECK PAIN; RSD, plantar fascitis) Osteoporosis, Fibromyalgia, Chronic Back Pain Endocrine: Yes (HYPOGLYCEMIC) Hypothyroidsim HEENT: Yes (Vision changes in right eye, 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 ear.) Loss of Vision: Right Hearing Impairment: Deaf Cancer: No Did You Recieve Any Treatments: No Psychosocial: Yes Anxiety, Depression Integumentary: No Blood Disorders: No Adverse Reaction/Blood Tranf: No Family Medical History Reviewed Nursing Family Hx Congenital heart disease Diabetes mellitus G8 BROTHER, Onset:Unknown Irregular heart beat 19 FATHER, , Onset:Unknown G8 SISTER, Onset:Unknown Myocardial infarction G8 BROTHER, Onset:Unknown Heart Disease, CAD Over 55 Years Old, Diabetes Physical Exam Vital Signs Vital Signs - First Documented 12/10/22 14:50 Pulse 74 Resp 18 B/P (MAP) 137/88 (104) Pulse Ox 96 Capillary Refill : Less Than 3 Seconds Height, Weight, BMI Height: 5'1.00" Weight: 225lbs. 1.0oz. 102.697295yi; 41.00 BMI Method:Stated General Appearance: No Apparent Distress, WD/WN HEENT: PERRL/EOMI, TMs Normal, Pharynx Normal Neck: Non Tender, Supple Respiratory: Lungs Clear, Normal Breath Sounds Cardiovascular: Regular Rate, Rhythm, No Murmur Gastrointestinal: Non Tender, Soft Extremity: Non Tender Neurologic/Psychiatric: Alert, Oriented x3 Skin: Normal Color, Warm/Dry Progress/Results/Core Measures Suspected Sepsis SIRS Temperature: Pulse: 74 Respiratory Rate: 18 Laboratory Tests 12/10/22 14:55: White Blood Count 9.5 Blood Pressure 137 /88 Mean: 104 Laboratory Tests 12/10/22 14:55: Creatinine 0.82, Platelet Count 294, Total Bilirubin 0.2 Results/Orders Lab Results Laboratory Tests Test 12/10/22 14:55 12/10/22 14:59 12/10/22 15:53 Range/Units White Blood Count 9.5 4.3-11.0 10^3/uL Red Blood Count 4.59 3.80-5.11 10^6/uL Hemoglobin 13.8 11.5-16.0 g/dL Hematocrit 42 35-52 % Mean Corpuscular Volume 92 80-99 fL Mean Corpuscular Hemoglobin 30 25-34 pg Mean Corpuscular Hemoglobin Concent 33 32-36 g/dL Red Cell Distribution Width 13.2 10.0-14.5 % Platelet Count 294 130-400 10^3/uL Mean Platelet Volume 10.2 9.0-12.2 fL Immature Granulocyte % (Auto) 0 % Neutrophils (%) (Auto) 55 42-75 % Lymphocytes (%) (Auto) 32 12-44 % Monocytes (%) (Auto) 9 0-12 % Eosinophils (%) (Auto) 3 0-10 % Basophils (%) (Auto) 0 0-10 % Neutrophils # (Auto) 5.2 1.8-7.8 X 10^3 Lymphocytes # (Auto) 3.1 1.0-4.0 X 10^3 Monocytes # (Auto) 0.9 0.0-1.0 X 10^3 Eosinophils # (Auto) 0.3 0.0-0.3 10^3/uL Basophils # (Auto) 0.0 0.0-0.1 10^3/uL Immature Granulocyte # (Auto) 0.0 0.0-0.1 10^3/uL Sodium Level 140 135-145 MMOL/L Potassium Level 3.8 3.6-5.0 MMOL/L Chloride Level 107 98-107 MMOL/L Carbon Dioxide Level 23 21-32 MMOL/L Anion Gap 10 5-14 MMOL/L Blood Urea Nitrogen 16 7-18 MG/DL Creatinine 0.82 0.60-1.30 MG/DL Estimat Glomerular Filtration Rate 79 BUN/Creatinine Ratio 20 Glucose Level 102 70-105 MG/DL Calcium Level 9.8 8.5-10.1 MG/DL Corrected Calcium 9.6 8.5-10.1 MG/DL Total Bilirubin 0.2 0.1-1.0 MG/DL Aspartate Amino Transf (AST/SGOT) 22 5-34 U/L Alanine Aminotransferase (ALT/SGPT) 11 0-55 U/L Alkaline Phosphatase 81 40-136 U/L C-Reactive Protein High Sensitivity 0.89 H 0.00-0.50 MG/DL Total Protein 7.5 6.4-8.2 GM/DL Albumin 4.2 3.2-4.5 GM/DL Glucometer 93 70-110 MG/DL Urine Color YELLOW Urine Clarity CLEAR Urine pH 5.5 5-9 Urine Specific [place] 1.010 L 1.016-1.022 Urine Protein NEGATIVE NEGATIVE Urine Glucose (UA) NEGATIVE NEGATIVE Urine Ketones NEGATIVE NEGATIVE Urine Nitrite NEGATIVE NEGATIVE Urine Bilirubin NEGATIVE NEGATIVE Urine Urobilinogen 0.2 < = 1.0 MG/DL Urine Leukocyte Esterase TRACE H NEGATIVE Urine RBC (Auto) TRACE-I H NEGATIVE Urine RBC NONE /HPF Urine WBC 0-2 /HPF Urine Crystals NONE /LPF Urine Bacteria TRACE /HPF Urine Casts NONE /LPF Urine Mucus NEGATIVE /LPF Urine Culture Indicated NO My Orders Orders - ARUNA MARTINEZ MD Ct Head Wo-R/O Stroke (12/10/22 15:20) Chest 1 View, Ap/Pa Only (12/10/22 15:20) Ed Iv/Invasive Line Start (12/10/22 15:20) Ekg Tracing (12/10/22 15:20) Monitor-Rhythm Ecg Trace Only (12/10/22 15:20) Ed Iv/Invasive Line Start (12/10/22 15:20) Ns Iv 500 Ml (Sodium Chloride 0.9%) (12/10/22 15:30) Cbc With Automated Diff (12/10/22 15:20) Comprehensive Metabolic Panel (12/10/22 15:20) Hs C Reactive Protein (12/10/22 15:20) Ua Culture If Indicated (12/10/22 15:20) Meclizine Tablet (Antivert Tablet) (12/10/22 15:45) Medications Given in ED Current Medications Medications Dose Ordered Sig/Emily Route Start Time Stop Time Status Last Admin Dose Admin Meclizine HCl 25 mg ONCE ONCE PO 12/10/22 15:45 12/10/22 15:46 DC 12/10/22 15:58 25 MG Sodium Chloride 500 ml @ 0 mls/hr Q0M ONCE IV 12/10/22 15:30 12/10/22 15:31 DC 12/10/22 15:30 500 MLS/HR Vital Signs/I&O 12/10/22 14:50 Pulse 74 Resp 18 B/P (MAP) 137/88 (104) Pulse Ox 96 Capillary Refill : Less Than 3 Seconds Blood Pressure Mean: 104 Point of Care Testing Finger Stick Blood Glucose: 93 Blood Glucose Action Taken: PROVIDER NOTIFIED Progress Note : Progress Note Seen and evaluated. IV, labs including CBC, CMP and CRP ordered. We will get CT of the head and chest x-ray. EKG ordered. Monitor patient. Normal saline 500 mL bolus ordered. Differential diagnosis includes stroke, electrolyte abnormality, dehydration, vertigo 1610: Chest x-ray reviewed by me and shows no acute findings on my interpretation. I did review CT scan of the head and that does not show any obvious intracranial hemorrhage on my interpretation. 1715: Labs reviewed and CBC is grossly normal and CMP is grossly normal. CRP is negative. Patient did receive meclizine 25 mg p.o. and she is doing much better currently. We did talk about home exercises which they had tried at home and states that that did help. They do not have handout currently and are asking for that information. 1755: Discharged home with return precautions and handout given for Ermias maneuver. Patient and family verbalized understanding of instructions and agreement with plan. ECG Initial ECG Impression Date: Dec 10, 2022 Initial ECG Impression Time: 15:31 Initial ECG Rate: 65 Initial ECG Rhythm: Normal Sinus Comment Normal sinus rhythm with normal axis. No evidence of ST elevation [place]. Interpreted by me. Diagnostic Imaging Diagonstic Imaging: CT Comments [facility] [place], [place] NAME: KARLA PIERRE [facility] REC#: [id number] PT STATUS: REG ER : 1955 PHYSICIAN: ARUNA MARTINEZ MD ADMIT DATE: 12/10/22/ER Signed Date of Exam:12/10/22 CT HEAD WO-R/O STROKE INDICATION: Dizziness and nausea. TECHNIQUE: Multiple contiguous axial images were obtained through the brain without the use of intravenous contrast. Auto Exposure Controls were utilized during the CT exam to meet ALARA standards for radiation dose reduction. There is comparison to 01/29/2017. FINDINGS: There are no extra-axial fluid collections. No intracranial hemorrhage. No intracranial mass or mass effect. No midline shift. The ventricles are normal in size and position. There were no focal parenchymal abnormalities in the brain. Calvarial windows appear unremarkable. Visualized portions of the sinuses are clear. IMPRESSION: Negative noncontrast brain CT. Dictated by: Dictated on workstation # [id number] Dict: 12/10/22 1554 Trans: 12/10/22 1632 [id number] Interpreted by: NAM DEWEY MD Electronically signed by: NAM DEWEY MD 12/10/22 1632 Diagonstic Imaging: Xray Plain Films/CT/US/NM/MRI: chest Comments [facility] [place] [place] NAME: KARLA PIERRE [facility] REC#: [id number] PT STATUS: REG ER : 1955 PHYSICIAN: ARUNA MARTINEZ MD ADMIT DATE: 12/10/22/ER Signed Date of Exam:12/10/22 CHEST 1 VIEW, AP/PA ONLY INDICATION: Dizziness. Frontal chest obtained at 3:50 p.m. and compared to 08/08/2022. FINDINGS: Heart and mediastinal silhouette are normal in appearance. The lungs show no focal infiltrate. There is no pneumothorax or pleural fluid. A loop recorder is seen over the chest wall. IMPRESSION: No acute process in the chest. Dictated by: Dictated on workstation # [id number] Dict: 12/10/22 1552 Trans: 12/10/22 1632 [id number] Interpreted by: NAM DEWEY MD Electronically signed by: NAM DEWEY MD 12/10/22 1632 Departure Impression Primary Impression: Vertigo Disposition: 01 HOME, SELF-CARE Condition: Improved Departure-Patient Inst. Referrals: MARCO CLEMENT DO (PCP/Family) Primary Care Physician Patient Instructions: Vertigo (a Type of Dizziness) (DC) Add. Discharge Instructions: All discharge instructions reviewed with patient and/or family. Voiced under standing. Use handout given for Ermias maneuver. You may do this 3 times before bedtime each night. Follow-up with your doctor for recheck. You may continue with meclizine 25 mg every 8 hours as needed for dizziness. Drink an adequate amount of fluids and eat a normal diet. Continue other medications except Benadryl as previously prescribed. Return for worse pain, fever, vomiting, weakness, breathing problems or other concerns as needed. ARUNA MARTINEZ MD Dec 10, 2022 15:20
[2022-12-10 15:27] LABS: BASOPHILS % (AUTO) 0 % (0-10); EOSINOPHILS # (AUTO) 0.3 10^3/uL (0.0-0.3); EOSINOPHILS % (AUTO) 3 % (0-10); HEMATOCRIT 42 % (35-52); HEMOGLOBIN 13.8 g/dL (11.5-16.0); LYMPHOCYTES # (AUTO) 3.1 X 10^3 (1.0-4.0); LYMPHOCYTES % (AUTO) 32 % (12-44); MEAN CORPUSCULAR HEMOGLOBIN 30 pg (25-34); MEAN CORPUSCULAR HGB CONC 33 g/dL (32-36); MEAN CORPUSCULAR VOLUME 92 fL (80-99); MEAN PLATELET VOLUME 10.2 fL (9.0-12.2); MONOCYTES # (AUTO) 0.9 X 10^3 (0.0-1.0); MONOCYTES % (AUTO) 9 % (0-12); NEUTROPHILS # (AUTO) 5.2 X 10^3 (1.8-7.8); NEUTROPHILS % (AUTO) 55 % (42-75); PLATELET COUNT 294 10^3/uL (130-400); WHITE BLOOD COUNT 9.5 10^3/uL (4.3-11.0)
[2022-12-10] MEDS ORDERED: NS IV 500 ML 500 ML IV ONE (15:30)
[2022-12-10 15:32] LABS: ALBUMIN 4.2 GM/DL (3.2-4.5); POTASSIUM 3.8 MMOL/L (3.6-5.0)
[2022-12-10 15:33] LABS: CALCIUM 9.8 MG/DL (8.5-10.1)
[2022-12-10 15:34] LABS: TOTAL PROTEIN 7.5 GM/DL (6.4-8.2)
[2022-12-10 15:36] LABS: BILIRUBIN,TOTAL 0.2 MG/DL (0.1-1.0)
[2022-12-10 15:38] LABS: CREATININE SERUM 0.82 MG/DL (0.60-1.30)
[2022-12-10] MEDS ORDERED: MECLIZINE 25 MG (ANTIVERT) TAB PO ONE (15:45)
--- NOTE | 2022-12-10 15:56 | Diagnostic Imaging Report ---
INDICATION: Dizziness. Frontal chest obtained at 3:50 p.m. and compared to 08/08/2022. FINDINGS: Heart and mediastinal silhouette are normal in appearance. The lungs show no focal infiltrate. There is no pneumothorax or pleural fluid. A loop recorder is seen over the chest wall. IMPRESSION: No acute process in the chest. Dictated by: Dictated on workstation # [id number]
--- NOTE | 2022-12-10 15:57 | Diagnostic Imaging Report ---
INDICATION: Dizziness and nausea. TECHNIQUE: Multiple contiguous axial images were obtained through the brain without the use of intravenous contrast. Auto Exposure Controls were utilized during the CT exam to meet ALARA standards for radiation dose reduction. There is comparison to 01/29/2017. FINDINGS: There are no extra-axial fluid collections. No intracranial hemorrhage. No intracranial mass or mass effect. No midline shift. The ventricles are normal in size and position. There were no focal parenchymal abnormalities in the brain. Calvarial windows appear unremarkable. Visualized portions of the sinuses are clear. IMPRESSION: Negative noncontrast brain CT. Dictated by: Dictated on workstation # [id number]
[2022-12-10 16:05] LABS: BILIRUBIN,URINE NEGATIVE (NEGATIVE); CLARITY,URINE CLEAR; COLOR,URINE YELLOW; GLUCOSE, URINE (UA) NEGATIVE (NEGATIVE); KETONES,URINE NEGATIVE (NEGATIVE); LEUKOCYTE ESTERASE ,URINE TRACE (NEGATIVE); NITRITE,URINE NEGATIVE (NEGATIVE); PH,URINE 5.5 (5-9); PROTEIN,URINE NEGATIVE (NEGATIVE)
[2022-12-10 16:15] LABS: BACTERIA,URINE TRACE /HPF; WBC,URINE 0-2 /HPF
[2022-12-10 18:11] VITALS: BP 122/70
== END 2022-12-10 18:18 | disposition home or self-care (01) ==
LOC: EDUNIT# 14:44 → ER 14:47
DX: R42 Dizziness and giddiness (principal); I48.91 Unspecified atrial fibrillation; H74.8X3 Other specified disorders of middle ear and mastoid, bilateral; Z79.01 Long term (current) use of anticoagulants; Z28.310 Unvaccinated for COVID-19
CPT/HCPCS: 36415; 70450; 71045; 80053; 81000; 82947; 85025; 86141; 93005; 93041

== ENCOUNTER 2022-12-15 14:20 | Emergency (ER) | payer MEDICARE, MEDICAID ==
[~2022-12-15] VITALS: Ht 157 cm; Wt 94.3 kg
--- NOTE | 2022-12-15 14:42 | ED General ---
General Chief Complaint: Dizziness/Syncope Stated Complaint: DIZZINESS | CRANIAL PRESSURE Nursing Triage Note: ARRIVED VIA WC TO ROOM 05 WITH ONGOING DIZZINESS THAT STARTED November. WAS SEEN LAST TUESDAY HERE AND URGENT CARE X3. 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 Source of Information: Patient Exam Limitations: No Limitations History of Present Illness Date Seen by Provider: Dec 15, 2022 Time Seen by Provider: 14:39 Initial Comments Patient is a 67-year-old female who presents ED with ongoing dizziness since November 23. She states she has been seen at urgent care 3 times as well as our ER for this positional dizziness. She has been prescribed meclizine, Flonase, Zyrtec and was given instructions to perform Ermias's maneuver at home. Patient was seen here on December [address] scan of her head which was unremarkable. She was prescribed meclizine which she has been taking 3-4 times a day. She has been using the Ermias's maneuver at least 3 times a day with some improvement. Dizziness became worse this morning. She reports nausea without vomiting. She she describes the dizziness as feeling like she is getting off amusement ride. She also reports left ear fullness and feels like fluid is in her ear since november. Denies of any specific pain but had a mild headache this morning. 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 She does have a loop recorder. Currently on Eliquis. She denies chest pain, cough, shortness of breath, flulike symptoms, abdominal pain, diarrhea, headache, unilateral muscle weakness or sensory changes. According to when they do the Ermias's maneuver he noted nystagmus with certain rotations. No rotational movements today. Allergies and Home Medications Allergies Coded Allergies: Penicillins (Unverified Allergy, Intermediate, HIVES, 07/24/10) meperidine (Unverified Allergy, Intermediate, HIVES, 07/24/10) codeine (Unverified Allergy, Mild, PALPITATIONS, 07/24/10) vortioxetine (Verified Allergy, Unknown, 12/10/22) baclofen (Unverified Adverse Reaction, Unknown, dizzy, nausea, 09/07/17) divalproex sodium (Unverified Adverse Reaction, Unknown, 09/07/17) metaxalone (Unverified Adverse Reaction, Unknown, "bad for me", 09/07/17) methocarbamol (Unverified Adverse Reaction, Unknown, HOSTILE/AGGRESSION, 07/02/16) tizanidine (Unverified Adverse Reaction, Unknown, drowsy, 09/07/17) Patient Home Medication List Home Medication List Reviewed: Yes Alendronate Sodium (Alendronate Sodium) 70 Mg Tablet, 70 MG PO MON, (Reported) Entered as Reported by: MARCO GALVAN on 09/30/20 1140 Aspirin (Aspirin EC) 325 Mg Tablet.dr, 325 MG PO 1200, (Reported) Entered as Reported by: MARCO GALVAN on 09/30/20 1140 Azithromycin (Azithromycin) 250 Mg Tablet, 250 MG PO UD Prescribed by: JEFFERSON GOFF on 08/08/22 1303 Brexpiprazole (Rexulti) 2 Mg Tablet, 2 MG PO DAILY, (Reported) Entered as Reported by: MARCO GALVAN on 09/30/20 1140 Buspirone HCl (Buspirone HCl) 10 Mg Tablet, 10 MG PO BID, (Reported) Entered as Reported by: MARCO GALVAN on 09/30/20 1140 Cefuroxime Axetil (Cefuroxime) 250 Mg Tablet, 250 MG PO BID Prescribed by: GREY MCKEON on 06/06/21 1201 Celecoxib (Celecoxib) 200 Mg Capsule, 200 MG PO DAILY, (Reported) Entered as Reported by: MARCO GALVAN on 09/30/20 1140 Cholecalciferol (Vitamin D3) (Vitamin D3) 25 Mcg Capsule, 25 MCG PO 1200, (Reported) Entered as Reported by: MARCO GALVAN on 09/30/20 1140 Diazepam (Valium) 5 Mg Tablet, 5 MG PO TID Prescribed by: MONIKA OBREGON on 12/15/22 1619 Gabapentin (Gabapentin) 100 Mg Capsule, 100 MG PO BID, (Reported) Entered as Reported by: MARCO GALVAN on 09/30/20 1140 Hydrocodone/Acetaminophen (Hydrocodone-Acetamin 7.5-325) 1 Each Tablet, 1 EA PO TID PRN for PAIN-MODERATE (5-7), (Reported) Entered as Reported by: MARCO GALVAN on 09/30/20 1140 Levothyroxine Sodium (Levothyroxine Sodium) 75 Mcg Tablet, 75 MCG PO DAILY, (Reported) Entered as Reported by: PAULIE SUMMERS on 10/06/17 1428 Metoclopramide HCl (Reglan) 10 Mg Tablet, 10 MG PO TID Prescribed by: MONIKA OBREGON on 12/15/22 1618 Metoprolol Succinate (Metoprolol Succinate) 25 Mg Tab.er.24h, 25 MG PO HS, (Reported) Entered as Reported by: MARCO GALVAN on 09/30/20 1140 Multivitamin (Multivitamin) 1 Each Tablet, 1 EACH PO 1200, (Reported) Entered as Reported by: MARCO GALVAN on 09/30/20 1140 [place]-3/Dha/Epa/Fish Oil (Fish Oil 1,000 mg Softgel) 1 Each Capsule, 3 EACH PO 1200, (Reported) Entered as Reported by: MARCO GALVAN on 09/30/20 1140 Ondansetron (Ondansetron Odt) 4 Mg Tab.rapdis, 4 MG SL Q4H PRN for NAUSEA/VOMITING Prescribed by: JEFFERSON GOFF on 08/08/22 1303 Orphenadrine Citrate (Orphenadrine Citrate) 100 Mg Tablet.er, 100 MG PO BID, (Reported) Entered as Reported by: PAULIE SUMMERS on 10/06/17 1428 Pantoprazole Sodium (Pantoprazole Sodium) 40 Mg Tablet.dr, 40 MG PO DAILY, (Reported) Entered as Reported by: FLY HAIR on 07/03/16 0114 Topiramate (Topiramate) 200 Mg Tablet, 200 MG PO BID, (Reported) Entered as Reported by: FIDENCIO DENT on 07/02/16 220 [Cbd Oil] , DROP SL DAILY, (Reported) Entered as Reported by: MARCO GALVAN on 09/30/20 1140 Review of Systems Review of Systems Constitutional: No chills, No diaphoresis, No fever, No malaise, No weakness EENTM: No hearing loss, No ear pain, No blurred vision Respiratory: No cough, No dyspnea on exertion Cardiovascular: No chest pain Gastrointestinal: No abdominal pain, No diarrhea; nausea; No vomiting Genitourinary: No decreased output, No discharge Musculoskeletal: No back pain, No joint pain Skin: No change in color, No change in hair/nails Psychiatric/Neurological: Denies Headache; Other (dizziness) All Other Systems Reviewed Negative Unless Noted: Yes Past Ckikrbe-Wyajny-Zugkye Hx Patient Social History Tobacco Use?: No Substance use?: No Immunizations Up To Date PED Vaccines UTD: No First/Initial COVID19 Vaccinat: NO Second COVID19 Vaccination Stefano: NO Third COVID19 Vaccination Date: NO Seasonal Allergies Seasonal Allergies: No Past Medical History Surgery/Hospitalization HX: HYST,GB,APPY, C-SECTIONS X2, ACID REFLUX, OSTEOPOROSIS, FIBRO, CHRONIC PAIN Surgeries: Yes (colon resection, r knee scope) Abdominal, Appendectomy, Bowel Surgery, Cardiac, Section, Gallbladder, Hysterectomy, Neurological, Orthopedic, Tonsillectomy Respiratory: Yes Asthma Currently Using CPAP: No Currently Using BIPAP: No Cardiac: Yes (" THEY THINK IT'S FROM ANXIETY.") Angina, Palpitations Neurological: Yes (Reflex Sympathetic Distrophy) Headaches /Migraines Female Reproductive Disorders: 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 Sexually Transmitted Disease: No HIV/AIDS: No Genitourinary: No Gastrointestinal: Yes Gastroesophageal Reflux, Chronic Constipation, Chronic Diarrhea, Ulcer, Irritable Bowel Musculoskeletal: Yes (CHRONIC NECK PAIN; RSD, plantar fascitis) Osteoporosis, Fibromyalgia, Chronic Back Pain Endocrine: Yes (HYPOGLYCEMIC) Hypothyroidsim HEENT: Yes (Vision changes in right eye, 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 ear.) Loss of Vision: Right Hearing Impairment: Deaf Cancer: No Did You Recieve Any Treatments: No Psychosocial: Yes Anxiety, Depression Integumentary: No Blood Disorders: No Adverse Reaction/Blood Tranf: No Family Medical History Congenital heart disease Diabetes mellitus G8 BROTHER, Onset:Unknown Irregular heart beat 19 FATHER, , Onset:Unknown G8 SISTER, Onset:Unknown Myocardial infarction G8 BROTHER, Onset:Unknown Heart Disease, CAD Over 55 Years Old, Diabetes Physical Exam Vital Signs Vital Signs - First Documented 12/15/22 14:27 Temp 36.3 Pulse 69 Resp 16 B/P (MAP) 139/70 (93) Pulse Ox 96 O2 Delivery Room Air Capillary Refill : Less Than 3 Seconds Height, Weight, BMI Height: 5'1.00" Weight: 225lbs. 1.0oz. 102.069779aa; 38.00 BMI Method:Stated General Appearance: No Apparent Distress, WD/WN Eyes: Bilateral Eye Normal Inspection, Bilateral Eye PERRL, Bilateral Eye EOMI HEENT: PERRL/EOMI, TMs Normal, Normal ENT Inspection, Pharynx Normal Neck: Full Range of Motion, Normal Inspection, Supple Respiratory: Chest Non Tender, Lungs Clear, Normal Breath Sounds, No Accessory Muscle Use, No Respiratory Distress Cardiovascular: Regular Rate, Rhythm, No Edema, No Gallop, No JVD, No Murmur Gastrointestinal: Normal Bowel Sounds, No Organomegaly, No Pulsatile Mass, Non Tender Rectal: Normal Exam Back: Normal Inspection, No CVA Tenderness, No Vertebral Tenderness Extremity: Normal Capillary Refill, Normal Inspection, Normal Range of Motion Neurologic/Psychiatric: Alert, Oriented x3, No Motor/Sensory Deficits, Normal 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, 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 Norm as Tested Skin: Normal Color, Warm/Dry Progress/Results/Core Measures Suspected Sepsis SIRS Temperature: Pulse: 69 Respiratory Rate: 16 Laboratory Tests 12/15/22 14:37: White Blood Count 10.1 Blood Pressure 139 /70 Mean: 93 Laboratory Tests 12/15/22 14:37: Creatinine 0.85, Platelet Count 262, Total Bilirubin 0.2 Results/Orders Lab Results Laboratory Tests Test 12/15/22 14:37 Range/Units White Blood Count 10.1 4.3-11.0 10^3/uL Red Blood Count 4.62 3.80-5.11 10^6/uL Hemoglobin 14.1 11.5-16.0 g/dL Hematocrit 42 35-52 % Mean Corpuscular Volume 91 80-99 fL Mean Corpuscular Hemoglobin 31 25-34 pg Mean Corpuscular Hemoglobin Concent 34 32-36 g/dL Red Cell Distribution Width 13.1 10.0-14.5 % Platelet Count 262 130-400 10^3/uL Mean Platelet Volume 10.2 9.0-12.2 fL Immature Granulocyte % (Auto) 0 % Neutrophils (%) (Auto) 52 42-75 % Lymphocytes (%) (Auto) 36 12-44 % Monocytes (%) (Auto) 8 0-12 % Eosinophils (%) (Auto) 3 0-10 % Basophils (%) (Auto) 0 0-10 % Neutrophils # (Auto) 5.3 1.8-7.8 10^3/uL Lymphocytes # (Auto) 3.6 1.0-4.0 10^3/uL Monocytes # (Auto) 0.8 0.0-1.0 10^3/uL Eosinophils # (Auto) 0.3 0.0-0.3 10^3/uL Basophils # (Auto) 0.0 0.0-0.1 10^3/uL Immature Granulocyte # (Auto) 0.0 0.0-0.1 10^3/uL Sodium Level 139 135-145 MMOL/L Potassium Level 3.9 3.6-5.0 MMOL/L Chloride Level 106 98-107 MMOL/L Carbon Dioxide Level 23 21-32 MMOL/L Anion Gap 10 5-14 MMOL/L Blood Urea Nitrogen 19 H 7-18 MG/DL Creatinine 0.85 0.60-1.30 MG/DL Estimat Glomerular Filtration Rate 76 BUN/Creatinine Ratio 22 Glucose Level 107 H 70-105 MG/DL Calcium Level 9.7 8.5-10.1 MG/DL Corrected Calcium 9.6 8.5-10.1 MG/DL Total Bilirubin 0.2 0.1-1.0 MG/DL Aspartate Amino Transf (AST/SGOT) 25 5-34 U/L Alanine Aminotransferase (ALT/SGPT) 13 0-55 U/L Alkaline Phosphatase 92 40-136 U/L Total Protein 7.4 6.4-8.2 GM/DL Albumin 4.1 3.2-4.5 GM/DL My Orders Orders - MARICARMEN YO Cbc With Automated Diff (12/15/22 14:38) Comprehensive Metabolic Panel (12/15/22 14:38) Metoclopramide Injection (Reglan Injecti (12/15/22 14:45) Diazepam Tablet (Valium Tablet) (12/15/22 14:43) Ketorolac Injection (Toradol Injection) (12/15/22 15:00) Acetaminophen Tablet (Tylenol Tablet) (12/15/22 15:45) Metoclopramide Injection (Reglan Injecti (12/15/22 15:45) Medications Given in ED Current Medications Medications Dose Ordered Sig/Emily Route Start Time Stop Time Status Last Admin Dose Admin Ketorolac Tromethamine 30 mg ONCE ONCE IVP 12/15/22 15:00 12/15/22 15:01 DC 12/15/22 15:04 30 MG Metoclopramide HCl 10 mg ONCE ONCE IVP 12/15/22 15:45 12/15/22 15:46 DC 12/15/22 15:49 10 MG Vital Signs/I&O 12/15/22 14:27 Temp 36.3 Pulse 69 Resp 16 B/P (MAP) 139/70 (93) Pulse Ox 96 O2 Delivery Room Air Capillary Refill : Less Than 3 Seconds Blood Pressure Mean: 93 Departure Communication (PCP) Reviewed previous ER visits, imaging, H&P's. Differential diagnosis peripheral versus central vertigo, stroke. Patient has been having ongoing dizziness positional since early November. She has had multiple visits at [facility] urgent care as well as 1 visit here on December 10. She had a full work-up on December 10 which included lab work, EKG CT scan of the head. CT scan head was negative for acute abnormality. Lab work was otherwise unremarkable. EKG performed was unremarkable for arrhythmia. Patient Was discharged with meclizine and instructions on performing Ermias's maneuver for this vertigo three times per day. She has been using the Ermias's maneuver which her states he noted nystagmus but none today. Worsening dizziness today with associated headache. History of chronic headaches states it feels very similar. She has no focal neural deficits, chest pain, cough, shortness of breath, neck pain, meningeal signs, vomiting or diarrhea. Associated nausea. Dizziness improved when she sits down. No appreciation nystagmus. General lab work was ordered. Attempted with Valium 2 mg p.o. at a lower dose as she has not had Valium in the past. She did have some improvement and was given Reglan as well with improvement. She received Toradol for the headache with improvement of the headache. She has no neurological red flag findings. Due to the length of symptoms I do believe patient would benefit with an outpatient MRI. She would also benefit with follow-up with ENT for PT. Discussed with patient potential length of symptoms with vertigo. Symptoms improve when her head is still. Discussed any neurolo gical red flag findings such as severe headache, unilateral weakness, facial droop to return back to ED. Will discharge with Valium 5 mg p.o. 3 times daily as needed as needed. Impression Primary Impression: Vertigo Disposition: HOME, SELF-CARE Condition: Stable Departure-Patient Inst. Decision time for Depature: 16:00 Referrals: KEYON ECHEVERRIA MD, CASEY V DO (PCP/Family) Primary Care Physician Patient Instructions: Vertigo (a Type of Dizziness) (DC) Add. Discharge Instructions: Recommending contacting Dr. Echeverria's office for further evaluation of the vert igo. Continue with your medication. We will add Valium 5 mg 3 times daily as needed. If any worsening symptoms return back to ED. recommend contacting [facility] at [phone] All discharge instructions reviewed with patient and/or family. Voiced un derstanding. Scripts Diazepam (Valium) 5 Mg Tablet 5 MG PO TID for Dizziness, #12 TAB Prov: MARICARMEN YO 12/15/22 Metoclopramide HCl (Reglan) 10 Mg Tablet 10 MG PO TID for Nausea, #12 TAB Prov: MARICARMEN YO 12/15/22 MARICAREMN YO Dec 15, 2022 14:42
[2022-12-15] MEDS ORDERED: METOCLOPRAMIDE INJ 10 MG/2 ML (REGLAN) IVP ONE ×2 (14:45→15:45)
[2022-12-15 14:46] LABS: BASOPHILS % (AUTO) 0 % (0-10); EOSINOPHILS # (AUTO) 0.3 10^3/uL (0.0-0.3); EOSINOPHILS % (AUTO) 3 % (0-10); HEMATOCRIT 42 % (35-52); HEMOGLOBIN 14.1 g/dL (11.5-16.0); LYMPHOCYTES # (AUTO) 3.6 10^3/uL (1.0-4.0); LYMPHOCYTES % (AUTO) 36 % (12-44); MEAN CORPUSCULAR HEMOGLOBIN 31 pg (25-34); MEAN CORPUSCULAR HGB CONC 34 g/dL (32-36); MEAN CORPUSCULAR VOLUME 91 fL (80-99); MEAN PLATELET VOLUME 10.2 fL (9.0-12.2); MONOCYTES # (AUTO) 0.8 10^3/uL (0.0-1.0); MONOCYTES % (AUTO) 8 % (0-12); NEUTROPHILS # (AUTO) 5.3 10^3/uL (1.8-7.8); NEUTROPHILS % (AUTO) 52 % (42-75); PLATELET COUNT 262 10^3/uL (130-400); WHITE BLOOD COUNT 10.1 10^3/uL (4.3-11.0)
[2022-12-15 14:57] LABS: ALBUMIN 4.1 GM/DL (3.2-4.5); POTASSIUM 3.9 MMOL/L (3.6-5.0)
[2022-12-15 14:58] LABS: CALCIUM 9.7 MG/DL (8.5-10.1)
[2022-12-15 14:59] LABS: TOTAL PROTEIN 7.4 GM/DL (6.4-8.2)
[2022-12-15] MEDS ORDERED: KETOROLAC 30 MG/ML VIAL IVP ONE (15:00)
[2022-12-15 15:01] LABS: BILIRUBIN,TOTAL 0.2 MG/DL (0.1-1.0)
[2022-12-15 15:03] LABS: CREATININE SERUM 0.85 MG/DL (0.60-1.30)
[2022-12-15] MEDS ORDERED: ACETAMINOPHEN 500 MG TAB (TYLENOL) PO ONE (15:45)
[2022-12-15] MEDS ORDERED: METO-310 PO (16:18)
[2022-12-15] MEDS ORDERED: DIAZ5TAB PO (16:18)
[2022-12-15 16:25] VITALS: BP 141/75
== END 2022-12-15 16:25 | disposition home or self-care (01) ==
LOC: EDUNIT# 14:20 → ER 14:22
DX: R42 Dizziness and giddiness (principal); R51.9 Headache, unspecified; R11.0 Nausea; Z79.01 Long term (current) use of anticoagulants; Z28.310 Unvaccinated for COVID-19; Z88.6 Allergy status to analgesic agent
CPT/HCPCS: 36415; 80053; 85025

== ENCOUNTER 2022-12-24 23:12 | Emergency (ER) | payer MEDICARE, MEDICAID ==
[~2022-12-24 23:12] MED LIST changes: +DIAZ5TAB PO; +METO-310 PO
[2022-12-24 23:37] LABS: BASOPHILS # (AUTO) 0.1 10^3/uL (0.0-0.1); BASOPHILS % (AUTO) 1 % (0-10); EOSINOPHILS # (AUTO) 0.3 10^3/uL (0.0-0.3); EOSINOPHILS % (AUTO) 3 % (0-10); HEMATOCRIT 41 % (35-52); HEMOGLOBIN 13.6 g/dL (11.5-16.0); LYMPHOCYTES # (AUTO) 4.2 10^3/uL (1.0-4.0); LYMPHOCYTES % (AUTO) 38 % (12-44); MEAN CORPUSCULAR HEMOGLOBIN 30 pg (25-34); MEAN CORPUSCULAR HGB CONC 33 g/dL (32-36); MEAN CORPUSCULAR VOLUME 90 fL (80-99); MEAN PLATELET VOLUME 10.1 fL (9.0-12.2); MONOCYTES # (AUTO) 1.2 10^3/uL (0.0-1.0); MONOCYTES % (AUTO) 10 % (0-12); NEUTROPHILS # (AUTO) 5.3 10^3/uL (1.8-7.8); NEUTROPHILS % (AUTO) 48 % (42-75); PLATELET COUNT 261 10^3/uL (130-400); WHITE BLOOD COUNT 11.1 10^3/uL (4.3-11.0)
[2022-12-24 23:53] LABS: ALBUMIN 4.1 GM/DL (3.2-4.5)
[2022-12-24 23:54] LABS: CHLORIDE 107 MMOL/L (98-107); POTASSIUM 3.9 MMOL/L (3.6-5.0); SODIUM 141 MMOL/L (135-145)
[2022-12-24 23:55] LABS: CALCIUM 9.6 MG/DL (8.5-10.1)
[2022-12-24 23:56] LABS: GLUCOSE 96 MG/DL (70-105); TOTAL PROTEIN 7.3 GM/DL (6.4-8.2)
[2022-12-24 23:57] LABS: CARBON DIOXIDE 22 MMOL/L (21-32); INR 0.9 (0.8-1.4); PROTHROMBIN TIME PATIENT 12.2 SEC (12.2-14.7)
[2022-12-24 23:58] LABS: BILIRUBIN,TOTAL 0.2 MG/DL (0.1-1.0)
[2022-12-24 23:59] LABS: ALKALINE PHOSPHATASE 90 U/L (40-136)
[2022-12-25] LABS: CREATININE SERUM 0.79 MG/DL (0.60-1.30); GFR ESTIMATED 82
[2022-12-25 00:01] LABS: BUN/CREATININE RATIO 18
[2022-12-25 00:02] LABS: ALANINE AMINOTRANSFERASE 15 U/L (0-55)
--- NOTE | 2022-12-25 00:03 | ED Chest Pain ---
General Chief Complaint: Chest Pain Stated Complaint: CP,SOB Source: patient Exam Limitations: no limitations History of Present Illness Date Seen by Provider: Dec 25, 2022 Time Seen by Provider: 23:23 Allergies and Home Medications Allergies Coded Allergies: Penicillins (Unverified Allergy, Intermediate, HIVES, 07/24/10) meperidine (Unverified Allergy, Intermediate, HIVES, 07/24/10) codeine (Unverified Allergy, Mild, PALPITATIONS, 07/24/10) vortioxetine (Verified Allergy, Unknown, 12/10/22) baclofen (Unverified Adverse Reaction, Unknown, dizzy, nausea, 09/07/17) divalproex sodium (Unverified Adverse Reaction, Unknown, 09/07/17) metaxalone (Unverified Adverse Reaction, Unknown, "bad for me", 09/07/17) methocarbamol (Unverified Adverse Reaction, Unknown, HOSTILE/AGGRESSION, ) tizanidine (Unverified Adverse Reaction, Unknown, drowsy, 09/07/17) Patient Home Medication List Alendronate Sodium (Alendronate Sodium) 70 Mg Tablet, 70 MG PO MON, (Reported) Entered as Reported by: MARCO GALVAN on 09/30/20 1140 Aspirin (Aspirin EC) 325 Mg Tablet.dr, 325 MG PO 1200, (Reported) Entered as Reported by: MARCO GALVAN on 09/30/20 1140 Azithromycin (Azithromycin) 250 Mg Tablet, 250 MG PO UD Prescribed by: JEFFERSON GOFF on 08/08/22 1303 Brexpiprazole (Rexulti) 2 Mg Tablet, 2 MG PO DAILY, (Reported) Entered as Reported by: MARCO GALVAN on 09/30/20 1140 Buspirone HCl (Buspirone HCl) 10 Mg Tablet, 10 MG PO BID, (Reported) Entered as Reported by: MARCO GALVAN on 09/30/20 1140 Cefuroxime Axetil (Cefuroxime) 250 Mg Tablet, 250 MG PO BID Prescribed by: GREY MCKEON on 06/06/21 1201 Celecoxib (Celecoxib) 200 Mg Capsule, 200 MG PO DAILY, (Reported) Entered as Reported by: MARCO GALVAN on 09/30/20 1140 Cholecalciferol (Vitamin D3) (Vitamin D3) 25 Mcg Capsule, 25 MCG PO 1200, (Reported) Entered as Reported by: MARCO GALVAN on 09/30/20 1140 Diazepam (Valium) 5 Mg Tablet, 5 MG PO TID Prescribed by: MONIKA OBREGON on 12/15/22 1619 Gabapentin (Gabapentin) 100 Mg Capsule, 100 MG PO BID, (Reported) Entered as Reported by: MARCO GALVAN on 09/30/20 1140 Hydrocodone/Acetaminophen (Hydrocodone-Acetamin 7.5-325) 1 Each Tablet, 1 EA PO TID PRN for PAIN-MODERATE (5-7), (Reported) Entered as Reported by: MARCO GALVAN on 09/30/20 1140 Levothyroxine Sodium (Levothyroxine Sodium) 75 Mcg Tablet, 75 MCG PO DAILY, (Reported) Entered as Reported by: PAULIE SUMMERS on 10/06/17 1428 Metoclopramide HCl (Reglan) 10 Mg Tablet, 10 MG PO TID Prescribed by: MONIKA OBREGON on 12/15/22 1618 Metoprolol Succinate (Metoprolol Succinate) 25 Mg Tab.er.24h, 25 MG PO HS, (Reported) Entered as Reported by: MARCO GALVAN on 09/30/20 1140 Multivitamin (Multivitamin) 1 Each Tablet, 1 EACH PO 1200, (Reported) Entered as Reported by: MARCO GALVAN on 09/30/20 1140 [place]-3/Dha/Epa/Fish Oil (Fish Oil 1,000 mg Softgel) 1 Each Capsule, 3 EACH PO 1200, (Reported) Entered as Reported by: MARCO GALVAN on 09/30/20 1140 Ondansetron (Ondansetron Odt) 4 Mg Tab.rapdis, 4 MG SL Q4H PRN for NAUSEA/VOMITING Prescribed by: JEFFERSON GOFF on 08/08/22 1303 Orphenadrine Citrate (Orphenadrine Citrate) 100 Mg Tablet.er, 100 MG PO BID, (Reported) Entered as Reported by: PAULIE SUMMERS on 10/06/17 1428 Pantoprazole Sodium (Pantoprazole Sodium) 40 Mg Tablet.dr, 40 MG PO DAILY, (Reported) Entered as Reported by: FLY HAIR on 07/03/16 0114 Topiramate (Topiramate) 200 Mg Tablet, 200 MG PO BID, (Reported) Entered as Reported by: FIDENCIO DENT on 07/02/16 2208 [Cbd Oil] , DROP SL DAILY, (Reported) Entered as Reported by: MARCO GALVAN on 09/30/20 1140 Past Dcifkgv-Twttuj-Relwar Hx Patient Social History Smoking Status: Former Smoker Immunizations Up To Date PED Vaccines UTD: No First/Initial COVID19 Vaccinat: NO Second COVID19 Vaccination Stefano: NO Third COVID19 Vaccination Date: NO Seasonal Allergies Seasonal Allergies: No Past Medical History Surgery/Hospitalization HX: HYST,GB,APPY, C-SECTIONS X2, ACID REFLUX, OSTEOPOROSIS, FIBRO, CHRONIC PAIN Surgeries: Yes (colon resection, r knee scope) Abdominal, Appendectomy, Bowel Surgery, Cardiac, Section, Gallbladder, Hysterectomy, Neurological, Orthopedic, Tonsillectomy Respiratory: Yes Asthma Currently Using CPAP: No Currently Using BIPAP: No Cardiac: Yes (" THEY THINK IT'S FROM ANXIETY.") Angina, Palpitations Neurological: Yes (Reflex Sympathetic Distrophy) Headaches /Migraines Female Reproductive Disorders: 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 Sexually Transmitted Disease: No HIV/AIDS: No Genitourinary: No Gastrointestinal: Yes Gastroesophageal Reflux, Chronic Constipation, Chronic Diarrhea, Ulcer, Irritable Bowel Musculoskeletal: Yes (CHRONIC NECK PAIN; RSD, plantar fascitis) Osteoporosis, Fibromyalgia, Chronic Back Pain Endocrine: Yes (HYPOGLYCEMIC) Hypothyroidsim HEENT: Yes (Vision changes in right eye, 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 ear.) Loss of Vision: Right Hearing Impairment: Deaf Cancer: No Did You Recieve Any Treatments: No Psychosocial: Yes Anxiety, Depression Integumentary: No Blood Disorders: No Adverse Reaction/Blood Tranf: No Family Medical History Congenital heart disease Diabetes mellitus G8 BROTHER, Onset:Unknown Irregular heart beat 19 FATHER, , Onset:Unknown G8 SISTER, Onset:Unknown Myocardial infarction G8 BROTHER, Onset:Unknown Heart Disease, CAD Over 55 Years Old, Diabetes Physical Exam Vital Signs Vital Signs - First Documented 12/24/22 23:55 Pulse 63 Resp 20 B/P (MAP) 148/83 (104) Pulse Ox 98 O2 Delivery Room Air Capillary Refill : Less Than 3 Seconds Height, Weight, BMI Height: 5'1.00" Weight: 225lbs. 1.0oz. 102.255769jq; 38.00 BMI Method:Stated Progress/Results/Core Measures Results/Orders Lab Results Laboratory Tests Test 12/24/22 23:28 12/25/22 00:20 12/25/22 00:32 12/25/22 01:26 Range/Units White Blood Count 11.1 H 4.3-11.0 10^3/uL Red Blood Count 4.50 3.80-5.11 10^6/uL Hemoglobin 13.6 11.5-16.0 g/dL Hematocrit 41 35-52 % Mean Corpuscular Volume 90 80-99 fL Mean Corpuscular Hemoglobin 30 25-34 pg Mean Corpuscular Hemoglobin Concent 33 32-36 g/dL Red Cell Distribution Width 13.2 10.0-14.5 % Platelet Count 261 130-400 10^3/uL Mean Platelet Volume 10.1 9.0-12.2 fL Immature Granulocyte % (Auto) 1 % Neutrophils (%) (Auto) 48 42-75 % Lymphocytes (%) (Auto) 38 12-44 % Monocytes (%) (Auto) 10 0-12 % Eosinophils (%) (Auto) 3 0-10 % Basophils (%) (Auto) 1 0-10 % Neutrophils # (Auto) 5.3 1.8-7.8 10^3/uL Lymphocytes # (Auto) 4.2 H 1.0-4.0 10^3/uL Monocytes # (Auto) 1.2 H 0.0-1.0 10^3/uL Eosinophils # (Auto) 0.3 0.0-0.3 10^3/uL Basophils # (Auto) 0.1 0.0-0.1 10^3/uL Immature Granulocyte # (Auto) 0.1 0.0-0.1 10^3/uL Prothrombin Time 12.2 12.2-14.7 SEC INR Comment 0.9 0.8-1.4 Activated Partial Thromboplast Time 31 24-35 SEC Sodium Level 141 135-145 MMOL/L Potassium Level 3.9 3.6-5.0 MMOL/L Chloride Level 107 98-107 MMOL/L Carbon Dioxide Level 22 21-32 MMOL/L Anion Gap 12 5-14 MMOL/L Blood Urea Nitrogen 14 7-18 MG/DL Creatinine 0.79 0.60-1.30 MG/DL Estimat Glomerular Filtration Rate 82 BUN/Creatinine Ratio 18 Glucose Level 96 70-105 MG/DL Calcium Level 9.6 8.5-10.1 MG/DL Corrected Calcium 9.5 8.5-10.1 MG/DL Magnesium Level 2.0 1.6-2.4 MG/DL Total Bilirubin 0.2 0.1-1.0 MG/DL Aspartate Amino Transf (AST/SGOT) 29 5-34 U/L Alanine Aminotransferase (ALT/SGPT) 15 0-55 U/L Alkaline Phosphatase 90 40-136 U/L Myoglobin 27.2 10.0-92.0 NG/ML Troponin I < 0.028 < 0.028 <0.028 NG/ML Total Protein 7.3 6.4-8.2 GM/DL Albumin 4.1 3.2-4.5 GM/DL Thyroid Stimulating Hormone (TSH) 2.26 0.35-4.94 UIU/ML Free Thyroxine 0.84 0.70-1.48 NG/DL My Orders Orders - JEFFERSON ROMAN MD Ekg Tracing (12/24/22 23:19) Cbc With Automated Diff (12/24/22 23:23) Magnesium (12/24/22 23:23) Chest 1 View, Ap/Pa Only (12/24/22 23:23) Comprehensive Metabolic Panel (12/24/22 23:23) Myoglobin Serum (12/24/22 23:23) Protime With Inr (12/24/22 23:23) Partial Thromboplastin Time (12/24/22 23:23) O2 (12/24/22 23:23) Monitor-Rhythm Ecg Trace Only (12/24/22 23:23) Lipid Panel (12/25/22 06:00) Ed Iv/Invasive Line Start (12/24/22 23:23) Troponin I Dung (12/24/22 23:23) Thyroid Stimulating Hormone (12/25/22 00:29) Free T4 (Free Thyroxine) (12/25/22 00:29) Troponin I Dung (12/25/22 01:30) Vital Signs/I&O 12/24/22 23:55 Pulse 63 Resp 20 B/P (MAP) 148/83 (104) Pulse Ox 98 O2 Delivery Room Air Initial ECG Impression Date: Dec 24, 2022 Initial ECG Impression Time: 23:26 Initial ECG Rate: 58 Initial ECG Rhythm: Normal Sinus Initial ECG Intervals: Normal Initial ECG Impression: Normal Comment Normal sinus rhythm with no ST elevation or depression. No abnormal intervals or axis deviation. Departure Impression Primary Impression: Atypical chest pain Additional Impressions: Disequilibrium Nausea Disposition: 01 HOME, SELF-CARE Condition: Stable Departure-Patient Inst. Decision time for Depature: 03:37 Referrals: MARCO CLEMENT DO (PCP/Family) Primary Care Physician Patient Instructions: Chest Pain Add. Discharge Instructions: Continue your medications as previously prescribed. For pain you may take Tylenol (acetaminophen) up to 1000 mg every 6 hours as needed. Add Ultram (tramadol) up to 50 mg every 6 hours as needed for pain not controlled by Tylenol. Please follow-up with the primary care office as soon as possible. Further evaluation for your disequilibrium may be discussed in follow-up. One study that you may benefit from the has not been observed in your hospital chart yet is MRI of the brain with and without contrast. This may reveal causes of your disequilibrium and it may be considered at the discretion of your primary care provider. Also follow-up with your knock up assembler as soon as possible. Return to the emergency room if you have worsening symptoms despite following these instructions. All discharge instructions reviewed with patient and/or family. Voiced understanding. JEFFERSON ROMAN MD Dec 25, 2022 00:03
[2022-12-25 01:06] LABS: FREE T4 (FREE THYROXINE) 0.84 NG/DL (0.70-1.48)
[2022-12-25 03:43] VITALS: BP 121/64
--- NOTE | 2022-12-25 08:22 | Diagnostic Imaging Report ---
Indication: Chest pain. Time of Exam: 11:25 PM Correlation is made with prior chest from 12/10/2022. Heart size is stable. Cardiac loop recorder overlies the lower left chest. Lungs are clear. No infiltrates are detected. There is no effusion or pneumothorax. IMPRESSION: No acute cardiopulmonary process is detected. Dictated by: Dictated on workstation # [id number]
== END 2022-12-25 03:45 | disposition home or self-care (01) ==
LOC: EDUNIT# 23:12 → ER 23:13
DX: R07.89 Other chest pain (principal); E87.8 Other disorders of electrolyte and fluid balance, not elsewhere classified; R11.0 Nausea; Z28.310 Unvaccinated for COVID-19
CPT/HCPCS: 36415; 71045; 80053; 83735; 83874; 84439; 84443; 84484; 85025; 85610; 85730; 93005; 93041

== ENCOUNTER 2023-01-14 17:09 | Emergency (ER) | payer MEDICARE, MEDICAID ==
[~2023-01-14] VITALS: Ht 157.5 cm; Wt 95.7 kg
[~2023-01-14 17:09] MED LIST changes: -METH4TAB10 PO
[2023-01-14 17:30] VITALS: BP 137/79
[2023-01-14] MEDS ORDERED: morphine INJ 10 MG/ML 1ML (SYR OR VIAL) IM STA (17:51)
[2023-01-14] MEDS ORDERED: LIDOCAINE 4% (SALONPAS) PATCH ONE (18:00)
[2023-01-14] MEDS ORDERED: dexAMETHasone INJ 10 MG/ML 1 ML VIAL IM ONE (18:00)
--- NOTE | 2023-01-14 18:03 | ED Chest Pain ---
General Chief Complaint: Chest Wall Stated Complaint: RIB PAIN Nursing Triage Note: PT AMB TO ED BY POV WITH C/O R SIDED RIB PAIN. PT REPORTS SUDDEN ONSET R CHEST WALL PAIN WHILE SCRUBBING THE FLOORS ON TUESDAY. PAIN SEVERE WITH DEEP BREATHING. PT HAS SEEN CHIROPRACTOR TWICE AND ICING SORE AREA WITH NO RELIEF. CXR DONE BY [facility]. Source: patient Exam Limitations: no limitations History of Present Illness Date Seen by Provider: Jan 14, 2023 Time Seen by Provider: 17:41 Initial Comments 67-year-old female presents to the ER with complaint of right rib pain just und er her breast which started Tuesday while cleaning the floors. She states it occurred after she twisted reaching around a corner. She has been to the Doctor twice this week which has not helped. She had a x-ray completed at [facility] today which showed no rib fracture. It also shows mild bilateral mid and lower lung interstitial opacities which could be possible pneumonitis, edema, or fibrosis. Patient has tramadol at home which she has been taking, states it has not been helping. She also takes gabapentin. She reports no relief in pain with ice or heat as well. She denies fevers, chest pain, shortness of air, abdominal pain. Does report worsening pain with deep breaths. Allergies and Home Medications Allergies Coded Allergies: Penicillins (Unverified Allergy, Intermediate, HIVES, 07/24/10) meperidine (Unverified Allergy, Intermediate, HIVES, 07/24/10) codeine (Unverified Allergy, Mild, PALPITATIONS, 07/24/10) vortioxetine (Verified Allergy, Unknown, 12/10/22) baclofen (Unverified Adverse Reaction, Unknown, dizzy, nausea, 09/07/17) divalproex sodium (Unverified Adverse Reaction, Unknown, 09/07/17) metaxalone (Unverified Adverse Reaction, Unknown, "bad for me", 09/07/17) methocarbamol (Unverified Adverse Reaction, Unknown, HOSTILE/AGGRESSION, 07/02/16) tizanidine (Unverified Adverse Reaction, Unknown, drowsy, 09/07/17) Patient Home Medication List Home Medication List Reviewed: Yes Alendronate Sodium (Alendronate Sodium) 70 Mg Tablet, 70 MG PO TUE, (Reported) Entered as Reported by: MARCO GALVAN on 09/30/20 1140 Aspirin (Aspirin EC) 325 Mg Tablet.dr, 325 MG PO 1200, (Reported) Entered as Reported by: MARCO GALVAN on 09/30/20 1140 Azithromycin (Azithromycin) 250 Mg Tablet, 250 MG PO UD Prescribed by: JEFFERSON GOFF on 08/08/22 1303 Brexpiprazole (Rexulti) 2 Mg Tablet, 2 MG PO DAILY, (Reported) Entered as Reported by: MARCO GALVAN on 09/30/20 1140 Buspirone HCl (Buspirone HCl) 10 Mg Tablet, 10 MG PO BID, (Reported) Entered as Reported by: MARCO GALVAN on 09/30/20 1140 Cefuroxime Axetil (Cefuroxime) 250 Mg Tablet, 250 MG PO BID Prescribed by: GREY MCKEON on 06/06/21 1201 Celecoxib (Celecoxib) 200 Mg Capsule, 200 MG PO DAILY, (Reported) Entered as Reported by: MARCO GALVAN on 09/30/20 1140 Cholecalciferol (Vitamin D3) (Vitamin D3) 25 Mcg Capsule, 25 MCG PO 1200, (Reported) Entered as Reported by: MARCO GALVAN on 09/30/20 1140 Diazepam (Valium) 5 Mg Tablet, 5 MG PO TID Prescribed by: MONIKA OBREGON on 12/15/22 1619 Gabapentin (Gabapentin) 100 Mg Capsule, 100 MG PO BID, (Reported) Entered as Reported by: MARCO GALVAN on 09/30/20 1140 Hydrocodone/Acetaminophen (Hydrocodone-Acetamin 7.5-325) 1 Each Tablet, 1 EA PO TID PRN for PAIN-MODERATE (5-7), (Reported) Entered as Reported by: MARCO GALVAN on 09/30/20 1140 Levothyroxine Sodium (Levothyroxine Sodium) 75 Mcg Tablet, 75 MCG PO DAILY, (Reported) Entered as Reported by: PAULIE SUMMERS on 10/06/17 1428 Methylprednisolone (Methylprednisolone Dose Pack) 4 Mg Tab.ds.pk, 4 MG PO UD Prescribed by: Sophie Mcdonnell on 01/14/23 1856 Metoclopramide HCl (Reglan) 10 Mg Tablet, 10 MG PO TID Prescribed by: MONIKA OBREGON on 12/15/22 1618 Metoprolol Succinate (Metoprolol Succinate) 25 Mg Tab.er.24h, 25 MG PO HS, (Reported) Entered as Reported by: MARCO GALVAN on 09/30/20 1140 Multivitamin (Multivitamin) 1 Each Tablet, 1 EACH PO 1200, (Reported) Entered as Reported by: MARCO GALVAN on 09/30/20 1140 [place]-3/Dha/Epa/Fish Oil (Fish Oil 1,000 mg Softgel) 1 Each Capsule, 3 EACH PO 1200, (Reported) Entered as Reported by: MARCO GALVAN on 09/30/20 1140 Ondansetron (Ondansetron Odt) 4 Mg Tab.rapdis, 4 MG SL Q4H PRN for NAUSEA/VOMITING Prescribed by: JEFFERSON GOFF on 08/08/22 1303 Orphenadrine Citrate (Orphenadrine Citrate) 100 Mg Tablet.er, 100 MG PO BID, (Reported) Entered as Reported by: PAULIE SUMMERS on 10/06/17 1428 Pantoprazole Sodium (Pantoprazole Sodium) 40 Mg Tablet.dr, 40 MG PO DAILY, (Repo rted) Entered as Reported by: FLY HAIR on 07/03/16 0114 Topiramate (Topiramate) 200 Mg Tablet, 200 MG PO BID, (Reported) Entered as Reported by: FIDENCIO DENT on 07/02/16 2208 [Cbd Oil] , DROP SL DAILY, (Reported) Entered as Reported by: MARCO GALVAN on 09/30/20 1140 Review of Systems Review of Systems Constitutional: see HPI Past Evvszyp-Eekdun-Cbyjhn Hx Patient Social History Tobacco Use?: No Use of E-Cig and/or Vaping dev: No Substance use?: No Alcohol Use?: No Pt feels they are or have been: No Immunizations Up To Date PED Vaccines UTD: No Influenza Vaccine Up-to-Date: No; Not Current First/Initial COVID19 Vaccinat: NO Second COVID19 Vaccination Stefano: NO Third COVID19 Vaccination Date: NO Seasonal Allergies Seasonal Allergies: No Past Medical History Surgery/Hospitalization HX: HYST, PERLITA, APPY, C-SECTIONS X2, TONSIL, COLON RESECTION, R KNEE SCOPE ACID REFLUX, OSTEOPOROSIS, FIBRO, CHRONIC PAIN, HTN Surgeries: Yes (colon resection, r knee scope) Abdominal, Appendectomy, Bowel Surgery, Cardiac, Section, Gallbladder, Hysterectomy, Neurological, Orthopedic, Tonsillectomy Respiratory: Yes Asthma Currently Using CPAP: No Currently Using BIPAP: No Cardiac: Yes (" THEY THINK IT'S FROM ANXIETY.") Angina, Atrial Fibrillation, Palpitations Neurological: Yes (Reflex Sympathetic Distrophy) Headaches /Migraines Female Reproductive Disorders: Denies TURNER OFF History: Menopausal Sexually Transmitted Disease: No HIV/AIDS: No Genitourinary: No Gastrointestinal: Yes Gastroesophageal Reflux, Chronic Constipation, Chronic Diarrhea, Ulcer, Irritable Bowel Musculoskeletal: Yes (CHRONIC NECK PAIN; RSD, plantar fascitis) Osteoporosis, Fibromyalgia, Chronic Back Pain Endocrine: Yes (HYPOGLYCEMIC) Hypothyroidsim HEENT: Yes (Vision changes in right eye, 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 ear.) Loss of Vision: Right Hearing Impairment: Deaf Cancer: No Did You Recieve Any Treatments: No Psychosocial: Yes Anxiety, Depression Integumentary: No Blood Disorders: No Adverse Reaction/Blood Tranf: No Family Medical History Congenital heart disease Diabetes mellitus G8 BROTHER, Onset:Unknown Irregular heart beat 19 FATHER, , Onset:Unknown G8 SISTER, Onset:Unknown Myocardial infarction G8 BROTHER, Onset:Unknown Heart Disease, CAD Over 55 Years Old, Diabetes Physical Exam Vital Signs Vital Signs - First Documented 01/14/23 17:30 Temp 36.9 Pulse 79 Resp 20 B/P (MAP) 137/79 (98) Pulse Ox 94 O2 Delivery Room Air Capillary Refill : Less Than 3 Seconds Height, Weight, BMI Height: 5'1.00" Weight: 225lbs. 1.0oz. 102.642501xu; 38.00 BMI Method:Stated General Appearance: WD/WN, Moderate Distress Neck: Normal Inspection, Supple Respiratory: Lungs Clear, Normal Breath Sounds, No Accessory Muscle Use, No Respiratory Distress, Other (Right ribs under right breast very tender to minimal palpation) Cardiovascular: Regular Rate, Rhythm Extremity: Normal Range of Motion Neurologic/Psychiatric: Alert, Normal Mood/Affect Skin: Normal Color, Warm/Dry Progress/Results/Core Measures Results/Orders My Orders Orders - SOPHIE LANGLEY APRN Dexamethasone Injection (Decadron Inje (01/14/23 18:00) Lidocaine 4% Patch (Salonpas 4% Patch) (01/15/23 09:00) Morphine Injection (Morphine Injection (01/14/23 17:51) Lidocaine 4% Patch (Salonpas 4% Patch) (01/14/23 18:00) Medications Given in ED Current Medications Medications Dose Ordered Sig/Emily Route Start Time Stop Time Status Last Admin Dose Admin Dexamethasone Sodium Phosphate 10 mg ONCE ONCE IM 01/14/23 18:00 01/14/23 18:01 DC 01/14/23 18:07 10 MG Vital Signs/I&O 01/14/23 17:30 Temp 36.9 Pulse 79 Resp 20 B/P (MAP) 137/79 (98) Pulse Ox 94 O2 Delivery Room Air Blood Pressure Mean: 98 Progress Progress Note : Progress Note Patient seen and evaluated, sitting in recliner, moderate distress due to pain. She is in no acute respiratory distress. Will order a shot of Decadron and m orphine, and a lidocaine patch. Considered Norflex injection, but patient states that it does not help her. Will not repeat the chest x-ray since patient had the x-ray report with her. Chest x-ray showed no rib fracture. It also shows mild bilateral mid and lower lung interstitial opacities which could be possible pneumonitis, edema, or fibrosis. I am not concerned that the opacities are pneumonia. Will give Decadron for possible pneumonitis and discharged with prescription for Medrol Dosepak which could help with pneumonitis as well as musculoskeletal pain. 1853 patient reports she is feeling a lot better after the pain medication. Will discharge with prescription for Medrol Dosepak. Patient instructed to get lidocaine patches [id number]. Discharge instructions and return precautions provided. Departure Impression Primary Impression: Chest wall pain Disposition: HOME, SELF-CARE Condition: Stable Departure-Patient Inst. Decision time for Depature: 18:54 Referrals: ZAC VILLAGOMEZ DO (PCP/Family) Primary Care Physician Patient Instructions: Chest Pain That Is Not Caused by the Heart (DC) Add. Discharge Instructions: Take Medrol Dosepak as prescribed. Get lidocaine patches [id number] and use as directed. Continue taking your tramadol. You may take 1000 mg of Tylenol and 800 mg of ibuprofen at the same time, this has been shown to be as effective as narcotic pain medications. Do not take ibuprofen at the same time as your aspirin, wait about 8 hours between doses. Follow-up with your primary care provider. Return for shortness of breath, or any other new, concerning, or worsening symptoms. All discharge instructions reviewed with patient and/or family. Voiced understanding. Scripts Methylprednisolone (Methylprednisolone Dose Pack) 4 Mg Tab.ds.pk 4 MG PO UD for 6 Days, #21 PKG 0 Refills PER DOSE PACK INSTRUCTIONS Prov: SOPHIE LANGLEY APRN 01/14/23 SOPHIE LANGLEY APRN Jan 14, 2023 18:03
[2023-01-14] MEDS ORDERED: METH4TAB10 PO (18:56)
[2023-01-15] MEDS ORDERED: LIDOCAINE 4% (SALONPAS) PATCH TOP SCH (09:00)
== END 2023-01-14 19:02 | disposition home or self-care (01) ==
LOC: EDUNIT# 17:09 → ER 17:11
DX: R07.89 Other chest pain (principal); R07.81 Pleurodynia; Z28.310 Unvaccinated for COVID-19; X50.1XXA Overexertion from prolonged static or awkward postures, initial encounter; Y93.E5 Activity, floor mopping and cleaning
CPT/HCPCS: 99284

== ENCOUNTER → 2023-01-14 | Outpatient (CLI) | payer MEDICARE, MEDICAID ==
[~2023-01-14] MED LIST changes: +METH4TAB10 PO
--- NOTE | 2023-01-14 13:26 | Diagnostic Imaging Report ---
Indication: Bilateral digital 2-D and 3-D screening with CAD. The current study was also evaluated with a Computer Aided Detection (CAD) system. COMPARISON: 12/09 and 02/2018 FINDINGS: density 2 No breast mass, spiculated lesion, architectural distortion, suspect calcifications or changes to suggest malignancy. IMPRESSION: BI-RADS Category 1 ACR BI-RADS Category 1: Negative. Result letter will be mailed to the patient. Note: At least 10% of breast cancer is not imaged by mammography. Dictated by: Dictated on workstation # [id number]
== END ==
LOC: RAD 08:21
PROVIDERS: ATTEND Family Medicine
DX: Z12.31 Encounter for screening mammogram for malignant neoplasm of breast (principal)
CPT/HCPCS: 77063; 77067

== ENCOUNTER → 2023-03-24 | Outpatient (CLI) | payer MEDICARE, MEDICAID ==
[~2023-03-24] MED LIST changes: -CELE-63 PO; +CELE-91 PO; +HOLD METFORMIN - RECEIVED CONTRAST 20 ML VIAL IV SCH; +IOHEXOL 350 MG/ML 100 ML (OMNIPAQUE 350) VIAL IV ONE; +METH4TAB10 PO; +NS 100 ML (IVPB) BAG IV ONE
[2023-03-24 08:03] LABS: CREATININE SERUM 0.81 MG/DL (0.60-1.30)
--- NOTE | 2023-03-24 09:24 | Diagnostic Imaging Report ---
PROCEDURE: CT angiography of the head and CT angiography of the neck with and without contrast. TECHNIQUE: Contiguous noncontrast images were obtained from the skull base through the vertex. After intravenous contrast administration, helical CT angiography of the neck was performed. Source data was reformatted into 3D MIP projections. Delayed post contrast acquisition was also obtained. Auto Exposure Controls were utilized during the CT exam to meet ALARA standards for radiation dose reduction. INDICATION: Vertigo and dizziness. Precontrast head CT does show ventricles and sulci are within normal limits. No sulcal effacement or midline shift is identified. No acute intra-axial or extra-axial hemorrhage is detected. Cisterns are patent. Delayed postcontrast imaging shows no enhancing lesions. CT angiographic portion of the exam demonstrates both the right and left common carotid arteries to be widely patent. The carotid bifurcations are unremarkable. Both the right and left internal carotid arteries appear to be widely patent. The left vertebral artery is dominant. Both vertebral arteries are widely patent. The basilar is widely patent. The right and left posterior cerebral arteries appear widely patent. Right and left anterior cerebral arteries are widely patent. The M1 and M2 branches of the middle cerebral arteries are widely patent bilaterally. No thromboemboli or large vessel occlusion is seen. No intracranial stenosis or aneurysm is detected. IMPRESSION: Unremarkable CT angiogram of the head and neck. Dictated by: Dictated on workstation # [id number]
== END ==
LOC: RAD 07:26
PROVIDERS: ATTEND Physician Assistant
DX: R42 Dizziness and giddiness (principal)
CPT/HCPCS: 36415; 70496; 70498; 82565; 84520

== ENCOUNTER 2023-04-18 10:29 | Outpatient (RCR) | payer MEDICARE, MEDICAID ==
[~2023-04-18 10:29] MED LIST changes: -HOLD METFORMIN - RECEIVED CONTRAST 20 ML VIAL IV SCH; -IOHEXOL 350 MG/ML 100 ML (OMNIPAQUE 350) VIAL IV ONE; -NS 100 ML (IVPB) BAG IV ONE
== END 2023-04-19 | disposition home or self-care (01) ==
PROVIDERS: ATTEND Physician Assistant
DX: M54.12 Radiculopathy, cervical region (principal); I10 Essential (primary) hypertension

== ENCOUNTER 2023-05-10 16:17 | Outpatient (RCR) | payer MEDICARE, MEDICAID | END 2023-05-19 | disposition home or self-care (01) | PROVIDERS: ATTEND Physician Assistant | DX: M54.12 Radiculopathy, cervical region (principal) ==

== ENCOUNTER 2023-05-16 20:36 | Emergency (ER) | payer MEDICARE, MEDICAID ==
[~2023-05-16] VITALS: Ht 157.4 cm; Wt 101.9 kg
[2023-05-16 21:07] LABS: BASOPHILS % (AUTO) 0 % (0-10); EOSINOPHILS # (AUTO) 0.2 10^3/uL (0.0-0.3); EOSINOPHILS % (AUTO) 2 % (0-10); HEMATOCRIT 42 % (35-52); HEMOGLOBIN 13.7 g/dL (11.5-16.0); LYMPHOCYTES # (AUTO) 3.6 10^3/uL (1.0-4.0); LYMPHOCYTES % (AUTO) 38 % (12-44); MEAN CORPUSCULAR HEMOGLOBIN 31 pg (25-34); MEAN CORPUSCULAR HGB CONC 33 g/dL (32-36); MEAN CORPUSCULAR VOLUME 94 fL (80-99); MEAN PLATELET VOLUME 9.9 fL (9.0-12.2); MONOCYTES # (AUTO) 0.8 10^3/uL (0.0-1.0); MONOCYTES % (AUTO) 9 % (0-12); NEUTROPHILS # (AUTO) 4.8 10^3/uL (1.8-7.8); NEUTROPHILS % (AUTO) 51 % (42-75); PLATELET COUNT 270 10^3/uL (130-400); WHITE BLOOD COUNT 9.6 10^3/uL (4.3-11.0)
[2023-05-16 21:18] LABS: ALBUMIN 4.1 GM/DL (3.2-4.5)
[2023-05-16 21:19] LABS: POTASSIUM 4.1 MMOL/L (3.6-5.0)
[2023-05-16 21:20] LABS: CALCIUM 9.5 MG/DL (8.5-10.1)
[2023-05-16 21:20] LABS: BACTERIA,URINE TRACE /HPF; BILIRUBIN,URINE NEGATIVE (NEGATIVE); CLARITY,URINE CLEAR; COLOR,URINE YELLOW; GLUCOSE, URINE (UA) NEGATIVE (NEGATIVE); KETONES,URINE NEGATIVE (NEGATIVE); LEUKOCYTE ESTERASE ,URINE NEGATIVE (NEGATIVE); NITRITE,URINE NEGATIVE (NEGATIVE); PROTEIN,URINE NEGATIVE (NEGATIVE); WBC,URINE 0-2 /HPF
[2023-05-16 21:21] LABS: INR 0.9 (0.8-1.4); PROTHROMBIN TIME PATIENT 12.5 SEC (12.2-14.7); TOTAL PROTEIN 7.6 GM/DL (6.4-8.2)
[2023-05-16 21:23] LABS: BILIRUBIN,TOTAL 0.2 MG/DL (0.1-1.0)
--- NOTE | 2023-05-16 21:23 | ED General ---
General Chief Complaint: Chest Wall Stated Complaint: LT RIB PAIN, HAPPENED WHEN PUTTING ON BOOTS Source of Information: Patient History of Present Illness Date Seen by Provider: May 16, 2023 Time Seen by Provider: 20:50 Allergies and Home Medications Allergies Coded Allergies: Penicillins (Unverified Allergy, Intermediate, HIVES, 07/24/10) meperidine (Unverified Allergy, Intermediate, HIVES, 07/24/10) codeine (Unverified Allergy, Mild, PALPITATIONS, 07/24/10) vortioxetine (Verified Allergy, Unknown, 12/10/22) baclofen (Unverified Adverse Reaction, Unknown, dizzy, nausea, 09/07/17) divalproex sodium (Unverified Adverse Reaction, Unknown, 09/07/17) metaxalone (Unverified Adverse Reaction, Unknown, "bad for me", 09/07/17) methocarbamol (Unverified Adverse Reaction, Unknown, HOSTILE/AGGRESSION, 07/02/16) tizanidine (Unverified Adverse Reaction, Unknown, drowsy, 09/07/17) Patient Home Medication List Alendronate Sodium (Alendronate Sodium) 70 Mg Tablet, 70 MG PO MON, (Reported) Entered as Reported by: MARCO GALVAN on 09/30/20 1140 Aspirin (Aspirin EC) 325 Mg Tablet.dr, 325 MG PO 1200, (Reported) Entered as Reported by: MARCO GALVAN on 09/30/20 1140 Azithromycin (Azithromycin) 250 Mg Tablet, 250 MG PO UD Prescribed by: JEFFERSON GOFF on 08/08/22 1303 Brexpiprazole (Rexulti) 2 Mg Tablet, 2 MG PO DAILY, (Reported) Entered as Reported by: MARCO GALVAN on 09/30/20 1140 Buspirone HCl (Buspirone HCl) 10 Mg Tablet, 10 MG PO BID, (Reported) Entered as Reported by: MARCO GALVAN on 09/30/20 1140 Cefuroxime Axetil (Cefuroxime) 250 Mg Tablet, 250 MG PO BID Prescribed by: GREY MCKEON on 06/06/21 1201 Celecoxib (Celecoxib) 200 Mg Capsule, 200 MG PO DAILY, (Reported) Entered as Reported by: MARCO GALVAN on 09/30/20 1140 Cholecalciferol (Vitamin D3) (Vitamin D3) 25 Mcg Capsule, 25 MCG PO 1200, (Reported) Entered as Reported by: MARCO GALVAN on 09/30/20 1140 Diazepam (Valium) 5 Mg Tablet, 5 MG PO TID Prescribed by: MONIKA OBREGON on 12/15/22 1619 Gabapentin (Gabapentin) 100 Mg Capsule, 100 MG PO BID, (Reported) Entered as Reported by: MARCO GALVAN on 09/30/20 1140 Hydrocodone/Acetaminophen (Hydrocodone-Acetamin 7.5-325) 1 Each Tablet, 1 EA PO TID PRN for PAIN-MODERATE (5-7), (Reported) Entered as Reported by: MARCO GALVAN on 09/30/20 1140 Levothyroxine Sodium (Levothyroxine Sodium) 75 Mcg Tablet, 75 MCG PO DAILY, (Reported) Entered as Reported by: PAULIE SUMMERS on 10/06/17 1428 Methylprednisolone (Methylprednisolone Dose Pack) 4 Mg Tab.ds.pk, 4 MG PO UD Prescribed by: Sophie Mcdonnell on 01/14/23 1856 Metoclopramide HCl (Reglan) 10 Mg Tablet, 10 MG PO TID Prescribed by: MONIKA OBREGON on 12/15/22 1618 Metoprolol Succinate (Metoprolol Succinate) 25 Mg Tab.er.24h, 25 MG PO HS, (Reported) Entered as Reported by: MARCO GALVAN on 09/30/20 1140 Multivitamin (Multivitamin) 1 Each Tablet, 1 EACH PO 1200, (Reported) Entered as Reported by: MARCO GALVAN on 09/30/20 1140 [place]-3/Dha/Epa/Fish Oil (Fish Oil 1,000 mg Softgel) 1 Each Capsule, 3 EACH PO 1200, (Reported) Entered as Reported by: MARCO GALVAN on 09/30/20 1140 Ondansetron (Ondansetron Odt) 4 Mg Tab.rapdis, 4 MG SL Q4H PRN for NAUSEA/VOMITING Prescribed by: JEFFERSON GOFF on 08/08/22 1303 Orphenadrine Citrate (Orphenadrine Citrate) 100 Mg Tablet.er, 100 MG PO BID, (Reported) Entered as Reported by: PAULIE SUMMERS on 10/06/17 1428 Pantoprazole Sodium (Pantoprazole Sodium) 40 Mg Tablet.dr, 40 MG PO DAILY, (Reported) Entered as Reported by: FLY HAIR on 07/03/16 0114 Topiramate (Topiramate) 200 Mg Tablet, 200 MG PO BID, (Reported) Entered as Reported by: FIDENCIO DENT on 07/02/16 2208 [Cbd Oil] , DROP SL DAILY, (Reported) Entered as Reported by: MARCO GALVAN on 09/30/20 1140 Past [place]-Gaxfns-Oncmmq Hx Immunizations Up To Date PED Vaccines UTD: No First/Initial COVID19 Vaccinat: NO Second COVID19 Vaccination Stefano: NO Third COVID19 Vaccination Date: NO Seasonal Allergies Seasonal Allergies: No Past Medical History Surgery/Hospitalization HX: HYST, PERLITA, APPY, C-SECTIONS X2, TONSIL, COLON RESECTION, R KNEE SCOPE ACID REFLUX, OSTEOPOROSIS, FIBRO, CHRONIC PAIN, HTN Surgeries: Yes (colon resection, r knee scope) Abdominal, Appendectomy, Bowel Surgery, Cardiac, Section, Gallbladder, Hysterectomy, Neurological, Orthopedic, Tonsillectomy Respiratory: Yes Asthma Currently Using CPAP: No Currently Using BIPAP: No Cardiac: Yes (" THEY THINK IT'S FROM ANXIETY.") Angina, Atrial Fibrillation, Palpitations Neurological: Yes (Reflex Sympathetic Distrophy) Headaches /Migraines Female Reproductive Disorders: Denies DIRECTOR EMERGENCY History: Menopausal Sexually Transmitted Disease: No HIV/AIDS: No Genitourinary: No Gastrointestinal: Yes Gastroesophageal Reflux, Chronic Constipation, Chronic Diarrhea, Ulcer, Irritable Bowel Musculoskeletal: Yes (CHRONIC NECK PAIN; RSD, plantar fascitis) Osteoporosis, Fibromyalgia, Chronic Back Pain Endocrine: Yes (HYPOGLYCEMIC) Hypothyroidsim HEENT: Yes (Vision changes in right eye, 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 ear.) Loss of Vision: Right Hearing Impairment: Deaf Cancer: No Did You Recieve Any Treatments: No Psychosocial: Yes Anxiety, Depression Integumentary: No Blood Disorders: No Adverse Reaction/Blood Tranf: No Family Medical History Congenital heart disease Diabetes mellitus G8 BROTHER, Onset:Unknown Irregular heart beat 19 FATHER, , Onset:Unknown G8 SISTER, Onset:Unknown Myocardial infarction G8 BROTHER, Onset:Unknown Heart Disease, CAD Over 55 Years Old, Diabetes Physical Exam Vital Signs Vital Signs - First Documented 05/16/23 20:47 Temp 36.6 Pulse 70 Resp 20 B/P (MAP) 168/98 (121) Pulse Ox 96 O2 Delivery Room Air Capillary Refill : Height, Weight, BMI Height: 5'1.00" Weight: 225lbs. 1.0oz. 102.967667lm; 38.00 BMI Method:Stated Progress/Results/Core Measures Suspected Sepsis SIRS Temperature: Pulse: Respiratory Rate: Laboratory Tests 05/16/23 20:58: White Blood Count 9.6 Blood Pressure / Mean: Laboratory Tests 05/16/23 20:58: Creatinine 0.80, INR Comment 0.9, Platelet Count 270, Total Bilirubin 0.2 Results/Orders Lab Results Laboratory Tests Test 05/16/23 20:58 05/16/23 21:06 Range/Units White Blood Count 9.6 4.3-11.0 10^3/uL Red Blood Count 4.49 3.80-5.11 10^6/uL Hemoglobin 13.7 11.5-16.0 g/dL Hematocrit 42 35-52 % Mean Corpuscular Volume 94 80-99 fL Mean Corpuscular Hemoglobin 31 25-34 pg Mean Corpuscular Hemoglobin Concent 33 32-36 g/dL Red Cell Distribution Width 12.2 10.0-14.5 % Platelet Count 270 130-400 10^3/uL Mean Platelet Volume 9.9 9.0-12.2 fL Immature Granulocyte % (Auto) 0 % Neutrophils (%) (Auto) 51 42-75 % Lymphocytes (%) (Auto) 38 12-44 % Monocytes (%) (Auto) 9 0-12 % Eosinophils (%) (Auto) 2 0-10 % Basophils (%) (Auto) 0 0-10 % Neutrophils # (Auto) 4.8 1.8-7.8 10^3/uL Lymphocytes # (Auto) 3.6 1.0-4.0 10^3/uL Monocytes # (Auto) 0.8 0.0-1.0 10^3/uL Eosinophils # (Auto) 0.2 0.0-0.3 10^3/uL Basophils # (Auto) 0.0 0.0-0.1 10^3/uL Immature Granulocyte # (Auto) 0.0 0.0-0.1 10^3/uL Prothrombin Time 12.5 12.2-14.7 SEC INR Comment 0.9 0.8-1.4 Activated Partial Thromboplast Time 33 24-35 SEC Sodium Level 139 135-145 MMOL/L Potassium Level 4.1 3.6-5.0 MMOL/L Chloride Level 104 98-107 MMOL/L Carbon Dioxide Level 24 21-32 MMOL/L Anion Gap 11 5-14 MMOL/L Blood Urea Nitrogen 13 7-18 MG/DL Creatinine 0.80 0.60-1.30 MG/DL Estimat Glomerular Filtration Rate 81 BUN/Creatinine Ratio 16 Glucose Level 99 70-105 MG/DL Calcium Level 9.5 8.5-10.1 MG/DL Corrected Calcium 9.4 8.5-10.1 MG/DL Magnesium Level 1.9 1.6-2.4 MG/DL Total Bilirubin 0.2 0.1-1.0 MG/DL Aspartate Amino Transf (AST/SGOT) 27 5-34 U/L Alanine Aminotransferase (ALT/SGPT) 13 0-55 U/L Alkaline Phosphatase 105 40-136 U/L Total Protein 7.6 6.4-8.2 GM/DL Albumin 4.1 3.2-4.5 GM/DL Urine Color YELLOW Urine Clarity CLEAR Urine pH 6.0 5-9 Urine Specific [place] 1.020 1.016-1.022 Urine Protein NEGATIVE NEGATIVE Urine Glucose (UA) NEGATIVE NEGATIVE Urine Ketones NEGATIVE NEGATIVE Urine Nitrite NEGATIVE NEGATIVE Urine Bilirubin NEGATIVE NEGATIVE Urine Urobilinogen 0.2 < = 1.0 MG/DL Urine Leukocyte Esterase NEGATIVE NEGATIVE Urine RBC (Auto) NEGATIVE NEGATIVE Urine RBC NONE /HPF Urine WBC 0-2 /HPF Urine Squamous Epithelial Cells 2-5 /HPF Urine Crystals NONE /LPF Urine Bacteria TRACE /HPF Urine Casts NONE /LPF Urine Mucus NEGATIVE /LPF Urine Culture Indicated NO My Orders Orders - ALEIDA CENTENO DO Ed Iv/Invasive Line Start (05/16/23 20:57) Monitor-Rhythm Ecg Trace Only (05/16/23 20:57) Cbc And Automated Diff (05/16/23 20:57) Comprehensive Metabolic Panel (05/16/23 20:57) Magnesium (05/16/23 20:57) Protime With Inr (05/16/23 20:57) Partial Thromboplastin Time (05/16/23 20:57) Ua Culture If Indicated (11/27/23 20:57) Chest Pa/Lat (2 View) (05/16/23 20:57) Ribs, Left 2-3 Views (05/16/23 20:57) Ct Chest/Abdomen/Pelvis Wo (05/16/23 20:57) Fentanyl Injection (Fentanyl Injection (05/16/23 22:00) Vital Signs/I&O 05/16/23 05/16/23 20:47 20:47 Temp 36.6 Pulse 70 Resp 20 B/P (MAP) 168/98 (121) Pulse Ox 96 O2 Delivery Room Air Room Air Capillary Refill : Diagnostic Imaging Comments CT CHEST / ABDOMEN / PELVIS--PER RADIOLOGIST REPORT AT 2137 Lungs are clear. There are no effusions or pneumothoraces. There is no hilar or mediastinal lymphadenopathy. Liver appears normal. Gallbladder surgically absent. Pancreas is normal. Spleen is not enlarged. Kidneys and adrenals appear normal. Large and small bowel are unremarkable. There is no evidence for appendicitis. There are some surgical gwen in the region of the appendix. Uterus is surgically absent. Urinary bladder is normal. There is no intraperitoneal free air or free fluid. IMPRESSION: Unremarkable CTA chest, abdomen and pelvis. XRAYS--PER RADIOLOGIST REPORTS AT 2150 Reviewed: Reviewed by Me Departure Impression Primary Impression: Left-sided chest wall pain Disposition: HOME, SELF-CARE Condition: Stable Departure-Patient Inst. Decision time for Depature: 21:55 Referrals: ZAC VILLAGOMEZ DO (PCP/Family) Primary Care Physician Patient Instructions: Bruised Rib (DC) Add. Discharge Instructions: CONTINUE YOUR REGULAR MEDICATIONS PRESCRIBED YOU MAY TAKE TIZANIDINE UP TO 4 MG THREE TIMES A DAY FOR MUSCLE PAIN AND SPASMS FOLLOW UP WITH DR. VILLAGOMEZ IN 4-5 DAYS FOR FURTHER CARE All discharge instructions reviewed with patient and/or family. Voiced understanding. ALEIDA CENTENO DO May 16, 2023 21:23
[2023-05-16 21:25] LABS: CREATININE SERUM 0.8 MG/DL (0.60-1.30)
[2023-05-16 21:27] LABS: MAGNESIUM 1.9 MG/DL (1.6-2.4)
--- NOTE | 2023-05-16 21:34 | Diagnostic Imaging Report ---
PROCEDURE: CT chest, abdomen, and pelvis without contrast. TECHNIQUE: Multiple contiguous axial images were obtained through the chest, abdomen, and pelvis without the use of intravenous contrast. Auto Exposure Controls were utilized during the CT exam to meet ALARA standards for radiation dose reduction. INDICATION: Left flank pain. Lungs are clear. There are no effusions or pneumothoraces. There is no hilar or mediastinal lymphadenopathy. Liver appears normal. Gallbladder surgically absent. Pancreas is normal. Spleen is not enlarged. Kidneys and adrenals appear normal. Large and small bowel are unremarkable. There is no evidence for appendicitis. There are some surgical gwen in the region of the appendix. Uterus is surgically absent. Urinary bladder is normal. There is no intraperitoneal free air or free fluid. IMPRESSION: Unremarkable CTA chest, abdomen and pelvis. Dictated by: Dictated on workstation # [id number]
--- NOTE | 2023-05-16 21:48 | Diagnostic Imaging Report ---
INDICATION: Left rib pain 3 views of left ribs do not show any displaced fractures. IMPRESSION: Negative left ribs Dictated by: Dictated on workstation # [id number]
--- NOTE | 2023-05-16 21:48 | Diagnostic Imaging Report ---
INDICATION: Left rib pain PA and lateral chest There is a loop recorder projecting over left lower chest. Heart size and pulmonary vascularity are normal. Lungs are clear. There are no effusions or pneumothoraces. IMPRESSION: Negative chest. Dictated by: Dictated on workstation # [id number]
[2023-05-16] MEDS ORDERED: fentaNYL INJECTION 100 MCG/2 ML VIAL IVP ONE (22:00)
[2023-05-16 22:22] VITALS: BP 127/67
== END 2023-05-16 22:22 | disposition home or self-care (01) ==
LOC: EDUNIT# 20:36 → ER 20:39
DX: R07.81 Pleurodynia (principal)
CPT/HCPCS: 36415; 71046; 71100; 71250; 74176; 80053; 81000; 83735; 85025; 85610; 85730; 93041